=== PATIENT | female | born 1980 | race Hispanic/Latino ===

== ENCOUNTER 2023-09-09 16:37 | Emergency (ER) | payer OTHER ==
--- OUTSIDE RECORDS SUMMARY | 2023-09-09 17:01 | XMS REPORT | Clinical Summary ---
:1980 Author Organization [facility] MD [facility] Address [address] [place] [address] Care Team Providers Name Role Phone Steve Kelley MD Unavailable Jodee Moffett MD Unavailable Dana Lowry MD Unavailable Shmaa Byrd MD Unavailable Allergies Active Allergy Reactions Criticality Noted Date Comments Codeine Hives High 05/08/2022 Ondansetron 01/14/2023 Causes elevated blood pressure and migraines Medications Medication Sig Dispensed Refills Start End Date Status Date aspirin 81 mg EC Take 1 tablet 0 Active tabletIndications: (81 mg) by myocardial mouth daily. infarction prevention Integra F 125-1-40-3 Take 1 capsule 0 Active mg cap by mouth every 1 other day. cholecalciferol, Take 1 tablet 0 Active vitamin D3, 25 mcg (1,000 Units) 2 (1,000 unit) tablet by mouth once a week. traMADol (ULTRAM-ER) Take 1 tablet 0 Active 100 mg 24 hr tablet (100 mg) by mouth nightly as needed. acetaminophen Take 1 tablet 0 Ac tive (TYLENOL) 325 mg (325 mg) by 2 tablet mouth as needed. cyanocobalamin every 30 0 Activ e (VITAMIN B-12) 1,000 (thirty) days. 2 mcg/mL injection fluticasone as needed. 0 Active propionate (FLONASE) 3 50 mcg/spray nasal spray FOLIC ACID ORAL Take 1 tablet 0 Active by mouth daily. Vyvanse 60 mg Take 1 capsule 0 A ctive capsule (60 mg) by 3 mouth every morning. promethazine Take 1 tablet 0 Act sergo (PHENERGAN) 12.5 mg (12.5 mg) by 3 tablet mouth as needed. tiZANidine Take 1 tablet 0 Activ e (ZANAFLEX) 4 mg (4 mg) by tablet mouth at bedtime. For 30 days methylphenidate HCl Take 1 tablet 0 Discontinued (RITALIN) 5 mg (5 mg) by 23 (Not tabletIndications: mouth daily as Applicable) attention-deficit needed. hyperactivity disorder ferrous sulfate 325 Take 1 tablet 90 tablet 0 Discontinued (65 FE) MG EC (325 mg) by 2 23 (The rapy tabletIndications: mouth 2 (two) completed) Iron deficiency times a day anemia with meals. promethazine Take 1 tablet 0 05/20/20 Dis continued (PHENERGAN) 50 mg (50 mg) by 23 ( Not tablet mouth every 6 Applic able) (six) hours as needed. polyethylene Mix as 4000 mL 0 05/30/20 Discont inued glycol-electrolytes directed and 3 23 (Not (NULYTELY) 420 g drink as Nina licable) solutionIndications: directed. Colonoscopy planned lisdexamfetamine Take 50 mg by 0 03/18/20 Discontinued (VYVANSE) 40 mg mouth every 23 capsuleIndications: morning. attention-deficit hyperactivity disorder biotin 10,000 mcg Take by mouth 0 04/21/20 Discontinued cap daily. 23 predniSONE Take 2 tablets 28 tablet 0 02/11/20 Expi red (DELTASONE) 5 mg (10 mg) by 3 23 tabletIndications: mouth daily Multiple joint pain for 14 days. ergocalciferol Take 1 capsule 12 capsule 0 05/14/20 (DRISDOL) 50,000 (50,000 Units) 3 23 units by mouth every capsuleIndications: 7 days for 90 Vitamin D days. deficiency, not otherwise specified NICORETTE 4 mg gum Chew and park 200 each 0 0 Discontinued fresh 1 Piece (4 mg) 3 23 (Reor catalina) mintIndications: by mouth every Tobacco dependence 2 (two) hours syndrome as needed for smoking cessation. buPROPion Bottle #2: 23 tablet 0 04/21/20 Discontin ued (Wellbutrin XL) 300 Take 1 tablet 3 23 mg 24 hr (300 mg) by tabletIndications: mouth every Tobacco dependence morning after syndrome completing 150 mg. buPROPion Bottle #1: 7 tablet 0 04/21/20 Discontin ued (Wellbutrin XL) 150 Take 1 tablet 3 23 mg 24 hr (150 mg) by tabletIndications: mouth every Tobacco dependence morning for 7 syndrome days. Nicoderm CQ 21 mg/24 Apply 1 patch 28 patch 0 05/20 Discontinued hr transdermal to skin and 3 23 patchIndications: change patch Tobacco dependence daily as syndrome directed for tobacco cessation (alternate sites). NICORETTE 4 mg gum Chew and park 200 each 0 0 Discontinued fresh 1 Piece (4 mg) 3 23 (Ther apy mintIndications: by mouth every completed) Tobacco dependence 2 (two) hours syndrome as needed for smoking cessation. tiZANidine Take 1 tablet 30 tablet 2 06/19/20 Expir ed (Zanaflex) 4 mg (4 mg) by 3 23 tabletIndications: mouth at Multiple joint pain, bedtime for 30 Inability to days. swallow, Vitamin D deficiency, not otherwise specified, Intolerant of cold Active Problems Problem Noted Date Diagnosed Date Tobacco use disorder, severe 05/08/2023 Iron deficiency anemia 11/29/2022 Anemia 03/23/2022 Headache 03/23/2022 Encounters Date Type Department Care Team Description 09/01/2023 Office Visit Internal Medicine Ewa Eric Iron defi ciency 1:30 PM Center - Hematology [employer]AMPING [employer] WORKER anemia, not otherwise AUTOMOBILE MECHANIC ASSISTANT [address] specified (Primary [facility], [address] or Dx) [place] [address] 09/01/2023 Hospital Encounter Diagnostic Laboratory Ewa Eric, Iron deficiency anemia, not otherwise specified 11:30 AM Center [employer]AMPING [employer] WORKER Discharge Disposition: Home AUTOMOBILE MECHANIC ASSISTANT - [address] 09/01/2023 [facility] 11:59 [place] [address] AUTOMOBILE MECHANIC ASSISTANT 09/01/2023 Travel 08/27/2023 Orders Only Internal Medicine Ewa Eric, [place] - Hematology STAMPING DIE [employer]Y OUT WORKER [address] [facility], [address] [place] [address] 08/26/2023 Orders Only Internal Medicine Ewa Eric, Iron defi ciency Center - Hematology STAMPING DIE TRY OUT WORKER anemia, not otherwise [address] specified (Primary [facility], [address] or Dx) [place] [address] 08/26/2023 Orders Only Internal Medicine Ewa Eric, [place] - Hematology STAMPING DIE TRY OUT WORKER [address] [facility], [address] [place] [address] 07/25/2023 Hospital Encounter Head and Neck Center - Tiffanie Byrd Lesion of larynx (Primary Dx); 1:30 PM Surgical Oncology MD Edi Dysphagia, not otherwise spe cified CDT - [address] Discharge Disposition: Home 07/25/2023 Main Bldg, 10th Floor, 11:59 [place] [address] 07/25/2023 Travel 07/24/2023 Travel 07/07/2023 Orders Only Internal Medicine Rice, Multiple j oint pain (Primary Dx); Center - Rheumatolog y Nery Carlos, Osteoarthritis, not otherwis e specified [address] RN [facility], [address] [place] [address] 07/04/2023 Ancillary Procedure Radiology Outpatient Dana Lowry, Multiple joint pain; 8:15 AM Center Inability to swallow; CDT [address] Vitamin D deficiency, not ot herwise specified; [place] [address] Intolerant of cold [phone] 06/12/2023 Telemedicine Internal Medicine Dana Lowry, Multiple joint pain; 2:00 PM Center - Rheumatolog y Inability to swallow; CDT [address] Vitamin D deficiency, not ot herwise specified; [facility], [address] [place] [address] 06/10/2023 Orders Only Internal Medicine JarrodDana land, Dysphagia , not Center - Rheumatolog y MD otherwise specified [address] (Primary Dx) [facility], [address] [place] [address] 06/03/2023 Hospital Encounter [facility] Kala-Otilia Discharg e 9:11 AM Ashia goff, Disposition: H madhu Sanz MD 06/03/2023 11:59 PM CDT 05/30/2023 Office Visit Internal Medicine Ewa Eric, Iron defi ciency 2:30 PM Center - Hematology STAMPING [employer] OUT WORKER anemia, not otherwise CDT [address] specified (Primary [facility], [address] or Dx) [place] [address] 05/30/2023 Hospital Encounter Diagnostic Imaging JarrodDana land, In ability to swallow 10:18 AM Center Discharge Disposition: Home CDT - [address] Juani Kc 05/30/2023 Main Bldg, 3rd Floor E A, PhD 11:59 [place] [address] 05/30/2023 Hospital Encounter Diagnostic Laboratory Ewa Eric, Iron deficiency anemia, not otherwise specified 9:52 AM Center STAMPING [employer] OUT WORKER Discharge Disposition: Home CDT - [address] 05/30/2023 Main Bldg, Elevator [place] 10:17 [place] [address] CDT 05/30/2023 Hospital Encounter Diagnostic Laboratory Dana Lowry, Multiple joint pain; 9:45 AM [place] Inability to swallow; CDT - [address] Vitamin D deficiency, not ot herwise specified; 05/30/2023 Main Bldg, Elevator A Intolerant of cold 9:51 [place] [address] Discharge Disposition: Home CDT 05/30/2023 Hospital Encounter [facility] HLA LAB Kala-Otilia Discharg e 9:11 AM Ashia goff, Disposition: H madhu Sanz MD 05/30/2023 9:44 AM CDT 05/30/2023 Travel 05/20/2023 Office Visit Internal Medicine EssenceEwaam, Multiple joint pain; 2:00 PM Center - Rheumatolog y Inability to swallow; T [address] Vitamin D deficiency, not ot herwise specified; [facility], [address] [place] [address] 05/20/2023 Travel 04/19/2023 Hospital Encounter Ambulatory Treatment HernestoEwa banuelos, Iron deficiency anemia, not otherwise specified (Primary Dx) 1:32 PM Center - Main Buildi ng STAMPING DIE [employer]Y OUT WORKER Discharge Disposition: Home CDT - [address] [place] 04/19/2023 Main Bldg, 2nd Floor Dye, 11:59 PM Elevator C Vianney Watkins RN [place] [phone] 04/19/2023 Travel 04/12/2023 Hospital Encounter Ambulatory Treatment Ewa Eric, Iron deficiency anemia, not otherwise specified (Primary Dx) 2:00 PM Center - Main Buildi ng STAMPING DIE [employer]Y OUT WORKER Discharge Disposition: Home CDT - [address] Sydnie, 04/12/2023 Main Bldg, 2nd Floor Rula Watkins RN 11:59 [place] [address] 04/12/2023 Travel 04/05/2023 Hospital Encounter Ambulatory Treatment HernestoEwa, Iron deficiency anemia, not otherwise specified (Primary Dx) 1:15 PM Center - Main Buildi ng STAMPING D[employer]Y OUT WORKER Discharge Disposition: Home CDT - [address] Evans, 04/05/2023 Main Bldg, 2nd Floor DOE Gonzalez 11:59 [place] [address] 04/05/2023 Travel 03/22/2023 Hospital Encounter Ambulatory Treatment HernestoEwa banuelos, Iron deficiency anemia, not otherwise specified (Primary Dx) 12:11 PM Center - Main Buildi ng STAMPING DIE TRY OUT WORKER Discharge Disposition: Home CDT - [address] [place], 03/22/2023 Main Bldg, 2nd Floor DOE Engel 11:59 [place] [address] 03/22/2023 Travel 03/18/2023 Office Visit Internal Medicine Ewa Eric Iron defi ciency 12:30 PM Center - Hematology STAMPING D[employer] OUT WORKER anemia, not otherwise CDT [address] specified (Primary [facility], [address] or Dx) [place] [address] 03/18/2023 Hospital Encounter Diagnostic Laboratory Dana Lowry, Intolerant of cold; 10:06 AM Center Iron deficiency anemia, not otherwise specified CDT - [address] Discharge Disposition: Home 03/18/2023 Main Bldg, Elevator A 11:59 [place] [address] CDT 03/18/2023 Travel 03/06/2023 Orders Only Internal Medicine Ewa Eric Iron defi ciency Center - Hematology STAMPING DIE TRY OUT WORKER anemia, not otherwise [address] specified (Primary [facility], [address] or Dx) [place] [address] 02/13/2023 Telemedicine Internal Medicine Dana Lowry, Inability to swallow (Primary Dx); 1:30 PM Center - Rheumatolog y Multiple joint pain; CDT [address] Vitamin D deficiency, not ot herwise specified; [facility], [address] [place] [address] 01/27/2023 Orders Only Internal Medicine Dana Lowry, Multiple joint pain Center - Rheumatolog y (Primary Dx) [address] [facility], [address] [place] [address] 01/14/2023 Hospital Encounter Diagnostic Laboratory Dana Lowry, Multiple joint pain 12:19 PM Center Discharge Disposition: Home CDT - [address] 01/14/2023 [facility] 11:59 [place] [address] CDT 01/14/2023 Office Visit Internal Medicine Ewa Eric Iron defi ciency 11:30 AM Center - Hematology STAMPING D[employer] OUT WORKER anemia, not otherwise CDT [address] specified [facility], [address] [place] [address] 01/14/2023 Consult Internal Medicine Dana Lowry, Multiple joint pain 10:30 AM Center - Rheumatolog y CDT [address] [facility], [address] [place] [address] 01/14/2023 Hospital Encounter Diagnostic Laboratory Ewa Eric, Iron deficiency anemia, not otherwise specified 9:57 AM Center STAMPING DIE [employer]Y OUT WORKER Discharge Disposition: Home CDT - [address] 01/14/2023 [facility] 12:18 [place] [address] [facility] 01/14/2023 Travel 01/11/2023 Hospital Encounter Ambulatory Treatment Ewa Eric, Iron deficiency anemia, not otherwise specified (Primary Dx) 10:00 AM [place] - Main Gisellei ng STAMPING DIE [employer]Y OUT WORKER Discharge Disposition: Home CDT - [address] Liam, 01/11/2023 Main Bldg, 2nd Floor DOE Crump 11:59 [place] [address] 01/11/2023 Travel 01/04/2023 Hospital Encounter Ambulatory Treatment Ewa Eric, Iron deficiency anemia, not otherwise specified (Primary Dx) 8:05 AM [place] - Main Gisellei ng STAMPING D[employer] OUT WORKER Discharge Disposition: Home CDT - [address] Sydnie, 01/04/2023 Main Bldg, 2nd Floor Rula Watkins RN 11:59 [place] [address] 01/04/2023 Travel 12/28/2022 Hospital Encounter Ambulatory Treatment Ewa Eric, Iron deficiency anemia, not otherwise specified (Primary Dx) 2:00 PM [place] - Main Gisellei ng STAMPING D[employer]Y OUT WORKER Discharge Disposition: Home CDT - [address] [place], Baby 12/28/2022 Main Bldg, 10th Floo salomon Vega RN 11:59 [place] [address] 12/28/2022 Travel 12/10/2022 Orders Only Internal Medicine Ewa Eric, Center - Hematology STAMPING D[employer]Y OUT WORKER [address] [facility], [address] [place] [address] 12/10/2022 Orders Only Internal Medicine Ewa Eric, Center - Hematology STAMPING DIE TRY OUT WORKER [address] [facility], [address] [place] [address] 11/30/2022 Hospital Encounter Ambulatory Treatment Ewa Eric, Iron deficiency anemia, not otherwise specified (Primary Dx) 10:15 AM Center - Main Buildi ng STAMPING DIE TRY OUT WORKER Discharge Disposition: Home AUTOMOBILE MECHANIC ASSISTANT - [address] Aminah, 11/30/2022 Main Bldg, 2nd Floor Ten Vega, 11:59 PM Elevator C RN AUT[employer] [address] 11/30/2022 Travel 11/29/2022 Office Visit Internal Medicine Ewa Eric, Iron defi ciency anemia, not otherwise specified (Primary Dx); 2:00 PM Center - Hematology STAMPING DIE TRY OUT WORKER Multiple joint pain AUTOMOBILE MECHANIC ASSISTANT [address] [facility], [address] [place] [address] 11/29/2022 Hospital Encounter Diagnostic Laboratory Ewa Eric, Iron deficiency anemia, not otherwise specified 11:37 AM [place] STAMPING D[employer] TRY OUT WORKER Discharge Disposition: Home AUTOMOBILE MECHANIC ASSISTANT - [address] 11/29/2022 [facility] 11:59 [place] [address] [facility] 11/29/2022 Orders Only Internal Medicine Ewa Eric, Center - Hematology STAMPING DIE TRY OUT WORKER [facility], [address] [place] [address] 11/29/2022 Travel 11/08/2022 Anesthesia Event Endoscopy Center Becca Flores, 2:18 PM [address] Briceno MD AUTOMOBILE MECHANIC ASSISTANT Main Bldg, 5th [place] [address] 11/08/2022 Surgery Endoscopy Center Frances, DIAGNOSTIC UPPER 1:40 PM 151Adithya Meyers, GASTROINTESTINAL AUTOMOBILE MECHANIC ASSISTANT - Main Shannan, 5th Floor ENDOSCOPY 11/08/2022 Elevator [place] 2:50 [place] [address] [facility] [phone] 11/08/2022 Hospital Encounter Endoscopy Center Frances, Iron deficiency anemia, not otherwise specified 11:59 AM [address], Discharge Disposition: Home AUTOMOBILE MECHANIC ASSISTANT - Main Shannan, 5th Floor 11/08/2022 Elevator [place] 4:45 [place] [address] [facility] [phone] 11/08/2022 Travel 11/07/2022 POEM Appointments Perioperative 3:30 PM Evaluation and AUTOMOBILE MECHANIC ASSISTANT Management Center [address] Bldg, 6th [place] [address] 11/06/2022 Anesthesia Event Perioperative Gaona, 11:59 PM Evaluation and Michelle Merchant, RN AUTOMOBILE MECHANIC ASSISTANT Management Center [address] Main Bldg, 6th [place] [address] 11/04/2022 Refill Gastrointestinal Gutierrez, Colonoscopy planned Center - BELLA Rojo (Primary Dx) Gastroenterology, Hepatology & Nutriti on [address] Main Bldg, 7th [place] [address] 10/23/2022 Ancillary Procedure General Ultrasound Ewa Eric, Bilateral lower leg 10:[address] STAMPING DIE TRY OUT WORKER edema AUTOMOBILE MECHANIC ASSISTANT [facility], [address] [place] [address] 10/23/2022 Hospital Encounter Diagnostic Laboratory Ewa Eric, Bilateral lower leg edema 9:30 AM Center STAMPING DIE TRY OUT WORKER Discharge Disposition: Home AUTOMOBILE MECHANIC ASSISTANT - [address] 10/23/2022 [facility] 11:59 [place] [address] AUTOMOBILE MECHANIC ASSISTANT 10/23/2022 Documentation Internal Medicine Ewa Eric, Center - Hematology STAMPING DIE TRY OUT WORKER [address] [facility], [address] [place] [address] 10/23/2022 Orders Only Internal Medicine Ewa Eric, Center - Hematology STAMPING DIE TRY OUT WORKER [address] [facility], [address] [place] [address] 10/23/2022 Travel 10/22/2022 Documentation Internal Medicine Ewa Eric, Center - Hematology STAMPING DIE TRY OUT WORKER [address] [facility], [address] [place] [address] 10/22/2022 Orders Only Internal Medicine Ewa Eric, Center - Hematology STAMPING DIE TRY OUT WORKER [address] [facility], [address] [place] [address] 10/22/2022 Orders Only Internal Medicine Ewa Eric, Bilateral lower leg Center - Hematology STAMPING DIE TRY OUT WORKER edema (Primary Dx) [address] [facility], [address] [place] [address] 10/22/2022 Orders Only Internal Medicine Ewa Eric, Iron defi ciency Center - Hematology STAMPING DIE TRY OUT WORKER anemia, not otherwise [address] specified (Primary [facility], [address] or Dx) [place] [address] 10/19/2022 Hospital Encounter Ambulatory Treatment Ewa Eric, Iron deficiency anemia, not otherwise specified (Primary Dx) 9:28 AM Center - Main Buildi ng STAMPING DIE TRY OUT WORKER Discharge Disposition: Home AUTOMOBILE MECHANIC ASSISTANT - [address] Sarah Aiken 10/19/2022 Main Bldg, 2nd Floor M, RN 11:59 [place] [address] 10/19/2022 Travel 10/10/2022 Prep for Surgery Gastrointestinal Renea Bhagat, Iron d eficiency Center - STAMPING DIE TRY OUT WORKER anemia, not oth erwise Gastroenterology, specified (Primary Hepatology & Nutriti on Dx) [address] Main Bldg, 7th [place] [address] 10/10/2022 Orders Only Internal Medicine Ewa Eric, Iron defi ciency Center - Hematology STAMPING DIE TRY OUT WORKER anemia, not otherwise [address] specified (Primary [facility], [address] or [place] [address] 10/10/2022 Orders Only Internal Medicine Ewa Eric, Center - Hematology STAMPING DIE TRY OUT WORKER [address] [facility], [address] [place] [address] 10/09/2022 Documentation Internal Medicine Ewa Eric, Center - Hematology STAMPING DIE TRY OUT WORKER [address] [facility], [address] [place] [address] 10/09/2022 Orders Only Internal Medicine Ewa Eric, Iron defi ciency Center - Hematology STAMPING DIE TRY OUT WORKER anemia, not otherwise [address] specified (Primary [facility], [address] or [place] [address] 10/04/2022 Hospital Encounter Diagnostic Laboratory Ewa Eric, Iron deficiency anemia, not otherwise specified 9:45 AM Center STAMPING DIE TRY OUT WORKER Discharge Disposition: Home AUTOMOBILE MECHANIC ASSISTANT - [address] 10/04/2022 [facility] 11:59 [place] [address] AUTOMOBILE MECHANIC ASSISTANT 10/02/2022 Telemedicine Internal Medicine Ewa Eric, Chronic i freya 2:00 PM Center - Hematology STAMPING DIE TRY OUT WORKER deficiency anemia AUTOMOBILE MECHANIC ASSISTANT [address] secondary to blood [facility], [address] [place] [address] 10/02/2022 Orders Only Internal Medicine Ewa Eric, Iron defi ciency Center - Hematology STAMPING DIE TRY OUT WORKER anemia, not otherwise [address] specified (Primary [facility], [address] or [place] [address] after 09/09/2022 Immunizations Name Administration Dates Next Due Pfizer SARS-CoV-2 Vaccination (Purple 06/14/2021, , 09/27/2020 Cap) Surgical History Surgery Date Site/Laterality Comments ROBOTIC LAPAROSCOPIC HYSTERECTOMY 06/27/2021 GASTRIC BYPASS 10/06/2012 - 10/05/2013 LAPAROSCOPIC CHOLECYSTECOMY 10/06/2012 - 10/05/2013 MA ESOPHAGOGASTRODUODENOSCOPY 11/08/2022 Esophagus/N/A Pr ocedure: DIAGNOSTIC TRANSORAL DIAGNOSTIC UPPER GASTR OINTESTINAL ENDOSCOPY; Surge on: Dontae burrell MD; Location: MAIN ENDOSCOPY; Servi ce: GASTROENTEROLOGY MA COLONOSCOPY FLX DX W/COLLJ SPEC 11/08/2022 N/A Procedure: DIAGNOSTIC WHEN PFRMD FLEXIBLE COLONOS COPY PROXIMAL TO SPLE ANDREEA FLEXURE; Surgeon : Dontae burrell MD; Location: MAIN ENDOSCOPY; Servi ce: GASTROENTEROLOGY Medical History Medical History Date Comments Obstructive sleep apnea Anxiety Depressive disorder History of anemia Encounter for blood transfusion Seizure Family History Medical History Relation Name Comments Liver cancer Father Relation Name Status Comments Father Social History Tobacco Use Types Packs/Day Years Used Date Smoking Tobacco: Former Cigarettes 0.5 28 1994 - 06/11/2023 Smokeless Tobacco: Never Tobacco Cessation: Ready to Quit: No; Co unseling Given: No Comments: 0. Alcohol Use Standard Drinks/Week Comments Yes 0 (1 standard drink = 0.6 oz pure social ly a glass of wine twice a alcohol) month Sex and Gender Information Value Date Recorded Sex Assigned at Female 10/20/2022 5:57 PM AUTOMOBILE MECHANIC ASSISTANT Gender Identity Female 10/20/2022 5:[address] Sexual Orientation Straight 10/20/2022 5:[address] Job Start Date Occupation Industry Not on file Not on file Not on file Obstetrics History Last Filed Vital Signs Vital Sign Reading Time Taken Comments Blood Pressure 150/93 09/01/2023 1:29 PM having hip pa in; AUTOMOBILE MECHANIC ASSISTANT informed provide r Pulse 70 09/01/2023 1:29 PM AUTOMOBILE MECHANIC ASSISTANT Temperature 37 C (98.6 F) 09/01/2023 1:29 PM AUTOMOBILE MECHANIC ASSISTANT Respiratory Rate 16 09/01/2023 1:29 PM AUTOMOBILE MECHANIC ASSISTANT Oxygen Saturation 100% 09/01/2023 1:29 PM AUTOMOBILE MECHANIC ASSISTANT Inhaled Oxygen - - Concentration Weight 92.8 kg (204 lb 9.4 09/01/2023 1:29 PM oz) AUTOMOBILE MECHANIC ASSISTANT Height 170.2 cm (5' 7.01") 09/01/2023 1:29 PM AUTOMOBILE MECHANIC ASSISTANT Body Mass Index 32.04 09/01/2023 1:29 PM AUTOMOBILE MECHANIC ASSISTANT Plan of Treatment Date Type Department Care Team Description 12/01/2023 11:30 Appointment Diagnostic Laboratory Nuria Eric APRN AM AUTOMOBILE MECHANIC ASSISTANT Center [address] [place] [id number] [facility] [place] [address] 12/01/2023 1:30 Office Visit Internal Medicine Ewa Eric APRN PM AUTOMOBILE MECHANIC ASSISTANT Center - Hematology [address] [place] [id number] [facility], [address] [place] [address] 12/12/2023 3:30 Telemedicine Internal Medicine Dana Lowry MD PM AUTOMOBILE MECHANIC ASSISTANT Center - Rheumatolog y [address] [facility] [address] [place] [address] [facility], [address] [place], [place] [id number] Health Maintenance Due Date Last Done Comments COVID-19 Vaccination (06/06/2023 06/14/2021, , season) 09/27/2020 Procedures Procedure Name Priority Date/Time Associated Comments Diagnosis .CBC Routine 09/01/2023 12:33 Iron deficiency Results for this PM AUTOMOBILE MECHANIC ASSISTANT anemia, not procedure are i n otherwise the results specified section. TRANSFERRIN Routine 09/01/2023 12:33 Iron deficiency Results for this PM AUTOMOBILE MECHANIC ASSISTANT anemia, not procedure are i n otherwise the results specified section. FERRITIN Routine 09/01/2023 12:33 Iron deficiency Results for this PM [employer] ASSISTANT anemia, not procedure are i n otherwise the results specified section. IRON LEVEL Routine 09/01/2023 12:33 Iron deficiency Results for this PM [employer] ME[employer]IC ASSISTANT anemia, not procedure are i n otherwise the results specified section. COMPLETE BLOOD COUNT W/ Routine 09/01/2023 12:33 Iron deficien cy Results for this DIFFERENTIAL PM [employer]CH[employer]IC ASSISTANT anemia, not procedure are i n otherwise the results specified section. MRI PELVIS W WO CONTRAST Routine 07/04/2023 9:07 Multiple join t Results for this AM CDT pain procedure are in Inability to the results swallow section. Vitamin D deficiency, not otherwise specified Intolerant of cold FL MODIFIED BARIUM Routine 05/30/2023 11:27 Inability to Resul ts for this SWALLOW W SPEECH AM CDT swallow procedure a re in the results section. DIFFERENTIAL Routine 05/30/2023 10:08 Iron deficiency Results for this AM CDT anemia, not procedure are i n otherwise the results specified section. .CBC Routine 05/30/2023 10:08 Iron deficiency Results for this AM CDT anemia, not procedure are i n otherwise the results specified section. TRANSFERRIN Routine 05/30/2023 10:08 Iron deficiency Results for this AM CDT anemia, not procedure are i n otherwise the results specified section. FERRITIN Routine 05/30/2023 10:08 Iron deficiency Results for this AM CDT anemia, not procedure are i n otherwise the results specified section. IRON LEVEL Routine 05/30/2023 10:08 Iron deficiency Results for this AM CDT anemia, not procedure are i n otherwise the results specified section. COMPLETE BLOOD COUNT W/ Routine 05/30/2023 10:08 Iron deficien cy DIFFERENTIAL AM CDT anemia, not otherwise specified FRACTIONATED BILIRUBIN Routine 05/30/2023 9:58 Multiple joint Results for this AM CDT pain procedure are in Inability to the results swallow section. Vitamin D deficiency, not otherwise specified Intolerant of cold TOTAL PROTEIN Routine 05/30/2023 9:58 Multiple joint Results f or this AM CDT pain procedure are in Inability to the results swallow section. Vitamin D deficiency, not otherwise specified Intolerant of cold ASPARTATE Routine 05/30/2023 9:58 Multiple joint Results fo r this AMINOTRANSFERASE AM CDT pain procedure are in Inability to the results swallow section. Vitamin D deficiency, not otherwise specified Intolerant of cold ALANINE AMINOTRANSFERASE Routine 05/30/2023 9:58 Multiple join t Results for this AM CDT pain procedure are in Inability to the results swallow section. Vitamin D deficiency, not otherwise specified Intolerant of cold ALKALINE PHOSPHATASE Routine 05/30/2023 9:58 Multiple joint Re sults for this AM CDT pain procedure are in Inability to the results swallow section. Vitamin D deficiency, not otherwise specified Intolerant of cold ALBUMIN LEVEL Routine 05/30/2023 9:58 Multiple joint Results f or this AM CDT pain procedure are in Inability to the results swallow section. Vitamin D deficiency, not otherwise specified Intolerant of cold CALCIUM LEVEL Routine 05/30/2023 9:58 Multiple joint Results f or this AM CDT pain procedure are in Inability to the results swallow section. Vitamin D deficiency, not otherwise specified Intolerant of cold .GLOMERULAR FILTRATION Routine 05/30/2023 9:58 Multiple joint Results for this RATE AM CDT pain procedure are in Inability to the results swallow section. Vitamin D deficiency, not otherwise specified Intolerant of cold SERUM CREATININE Routine 05/30/2023 9:58 Multiple joint Result s for this AM CDT pain procedure are in Inability to the results swallow section. Vitamin D deficiency, not otherwise specified Intolerant of cold ELECTROLYTE PANEL Routine 05/30/2023 9:58 Multiple joint Resul ts for this AM CDT pain procedure are in Inability to the results swallow section. Vitamin D deficiency, not otherwise specified Intolerant of cold BLOOD UREA NITROGEN Routine 05/30/2023 9:58 Multiple joint Res ults for this AM CDT pain procedure are in Inability to the results swallow section. Vitamin D deficiency, not otherwise specified Intolerant of cold GLUCOSE LEVEL Routine 05/30/2023 9:58 Multiple joint Results f or this AM CDT pain procedure are in Inability to the results swallow section. Vitamin D deficiency, not otherwise specified Intolerant of cold HLA PATIENT COLLECTION Routine 05/30/2023 9:58 Multiple joint Results for this ONLY AM CDT pain procedure are in HLA PATIENT Inability to the results swallow section. Vitamin D deficiency, not otherwise specified Intolerant of cold COMPREHENSIVE METABOLIC Routine 05/30/2023 9:58 Multiple joint PANEL AM CDT pain Inability to swallow Vitamin D deficiency, not otherwise specified Intolerant of cold C REACTIVE PROTEIN Routine 05/30/2023 9:58 Multiple joint Resu lts for this AM CDT pain procedure are in Inability to the results swallow section. Vitamin D deficiency, not otherwise specified Intolerant of cold SEDIMENTATION RATE Routine 05/30/2023 9:58 Multiple joint Resu lts for this NON-AUTOMATED AM CDT pain procedure are in Inability to the results swallow section. Vitamin D deficiency, not otherwise specified Intolerant of cold DIFFERENTIAL Routine 03/18/2023 10:36 Iron deficiency Results for this AM CDT anemia, not procedure are i n otherwise the results specified section. .CBC Routine 03/18/2023 10:36 Iron deficiency Results for this AM CDT anemia, not procedure are i n otherwise the results specified section. TRANSFERRIN Routine 03/18/2023 10:36 Iron deficiency Results for this AM CDT anemia, not procedure are i n otherwise the results specified section. FERRITIN Routine 03/18/2023 10:36 Iron deficiency Results for this AM CDT anemia, not procedure are i n otherwise the results specified section. IRON LEVEL Routine 03/18/2023 10:36 Iron deficiency Results for this AM CDT anemia, not procedure are i n otherwise the results specified section. COMPLETE BLOOD COUNT W/ Routine 03/18/2023 10:36 Iron deficien cy DIFFERENTIAL AM CDT anemia, not otherwise specified THYROID STIMULATING Routine 03/18/2023 10:36 Intolerant of col d Results for this HORMONE AM CDT procedure are i n the results section. FREE THYROXINE Routine 03/18/2023 10:36 Intolerant of cold Res ults for this AM CDT procedure are i n the results section. PROTEIN / CREATININE Routine 01/14/2023 1:03 Multiple joint Re sults for this RATIO URINE PM CDT pain procedure are i n the results section. URINALYSIS WITH Routine 01/14/2023 1:03 Multiple joint Results for this MICROSCOPIC IF INDICATED PM CDT pain pro cedure are in the results section. URINE CULTURE Routine 01/14/2023 1:03 Multiple joint Results f or this PM CDT pain procedure are i n the results section. LUPUS PATH REVIEW Routine 01/14/2023 12:57 Result s for this PM CDT procedure are i n the results section. .DR. BONE EDMUND PATH Routine 01/14/2023 12:57 Resu lts for this REVIEW PM CDT procedure are i n the results section. .DR. BONE PROT ELEC Routine 01/14/2023 12:57 Res ults for this PATH REVIEW PM CDT procedure are i n the results section. HEPATITIS B CORE Routine 01/14/2023 12:57 Results for this ANTIBODY PM CDT procedure are i n the results section. HEPATITIS C VIRUS Routine 01/14/2023 12:57 Multiple joint Resu lts for this ANTIBODY PM CDT pain procedure are i n the results section. VITAMIN D 25 HYDROXY Routine 01/14/2023 12:57 Multiple joint R esults for this LEVEL PM CDT pain procedure are i n the results section. HIV 1/2 Routine 01/14/2023 12:57 Multiple joint Results f or this ANTIGEN/ANTIBODY, FOURTH PM CDT pain pro cedure are in GEN W/RFL the results section. HEPATITIS B SURFACE Routine 01/14/2023 12:57 Multiple joint Re sults for this ANTIGEN PM CDT pain procedure are i n the results section. HEPATITIS B SURFACE Routine 01/14/2023 12:57 Multiple joint Re sults for this ANTIBODY PM CDT pain procedure are i n the results section. HEPATITIS B CORE Routine 01/14/2023 12:57 Multiple joint Resul ts for this ANTIBODY IGM ACUTE TITER PM CDT pain pro cedure are in the results section. SSA+SSB Routine 01/14/2023 12:57 Multiple joint Results f or this PM CDT pain procedure are i n the results section. DIANE (SM) AB IGG SERUM Routine 01/14/2023 12:57 Multiple join t Results for this PM CDT pain procedure are i n the results section. SEDIMENTATION RATE Routine 01/14/2023 12:57 Multiple joint Res ults for this NON-AUTOMATED PM CDT pain procedure are in the results section. SCL 70 AB IGG SERUM Routine 01/14/2023 12:57 Multiple joint Re sults for this PM CDT pain procedure are i n the results section. METAL SORTER ANTIBODY IGG SERUM Routine 01/14/2023 12:57 Multiple joint Results for this PM CDT pain procedure are i n the results section. RHEUMATOID FACTOR Routine 01/14/2023 12:57 Multiple joint Resu lts for this QUANTITATIVE PM CDT pain procedure are i n the results section. PROTEIN ELECTROPHORESIS Routine 01/14/2023 12:57 Multiple join t Results for this PM CDT pain procedure are i n the results section. LUPUS ANTICOAGULANT Routine 01/14/2023 12:57 Multiple joint Re sults for this PM CDT pain procedure are i n the results section. SERUM PROTEIN Routine 01/14/2023 12:57 Multiple joint Results for this ELECTROPHORESIS WITH EDMUND PM CDT pain pro cedure are in the results section. DNA ANTIBODY Routine 01/14/2023 12:57 Multiple joint Results f or this (DOUBLE-STRANDED) IGG PM CDT pain proced ure are in the results section. CYCLIC CITRULLINE Routine 01/14/2023 12:57 Multiple joint Resu lts for this ANTIBODY IGG PM CDT pain procedure are i n the results section. C REACTIVE PROTEIN Routine 01/14/2023 12:57 Multiple joint Res ults for this PM CDT pain procedure are i n the results section. CARDIOLIPIN ANTIBODIES Routine 01/14/2023 12:57 Multiple joint Results for this PM CDT pain procedure are i n the results section. C4 COMPLEMENT Routine 01/14/2023 12:57 Multiple joint Results for this PM CDT pain procedure are i n the results section. C3 COMPLEMENT Routine 01/14/2023 12:57 Multiple joint Results for this PM CDT pain procedure are i n the results section. ANTI B2 GLYCOPROTEIN Routine 01/14/2023 12:57 Multiple joint R esults for this PM CDT pain procedure are i n the results section. ANCA PANEL FOR Routine 01/14/2023 12:57 Multiple joint Results for this VASCULITIS SERUM PM CDT pain procedure a re in the results section. ANTINUCLEAR ANTIBODY Routine 01/14/2023 12:57 Multiple joint R esults for this HEP-2 SUBSTRATE IGG PM CDT pain procedur e are in the results section. DIFFERENTIAL Routine 01/14/2023 10:12 Iron deficiency Results for this AM CDT anemia, not procedure are i n otherwise the results specified section. .CBC Routine 01/14/2023 10:12 Iron deficiency Results for this AM CDT anemia, not procedure are i n otherwise the results specified section. TRANSFERRIN Routine 01/14/2023 10:12 Iron deficiency Results for this AM CDT anemia, not procedure are i n otherwise the results specified section. FERRITIN Routine 01/14/2023 10:12 Iron deficiency Results for this AM CDT anemia, not procedure are i n otherwise the results specified section. IRON LEVEL Routine 01/14/2023 10:12 Iron deficiency Results for this AM CDT anemia, not procedure are i n otherwise the results specified section. COMPLETE BLOOD COUNT W/ Routine 01/14/2023 10:12 Iron deficien cy DIFFERENTIAL AM CDT anemia, not otherwise specified DIFFERENTIAL Routine 11/29/2022 11:47 Iron deficiency Results for this AM [employer] MECH[employer]IC ASSISTANT anemia, not procedure are i n otherwise the results specified section. .CBC Routine 11/29/2022 11:47 Iron deficiency Results for this AM [employer] MECH[employer]IC ASSISTANT anemia, not procedure are i n otherwise the results specified section. TRANSFERRIN Routine 11/29/2022 11:47 Iron deficiency Results for this AM [employer] MECH[employer]IC ASSISTANT anemia, not procedure are i n otherwise the results specified section. FERRITIN Routine 11/29/2022 11:47 Iron deficiency Results for this AM [employer] MECHANIC ASSISTANT anemia, not procedure are i n otherwise the results specified section. IRON LEVEL Routine 11/29/2022 11:47 Iron deficiency Results for this AM [employer] MECHANIC ASSISTANT anemia, not procedure are i n otherwise the results specified section. COMPLETE BLOOD COUNT W/ Routine 11/29/2022 11:47 Iron deficien cy DIFFERENTIAL AM [employer] MECH[employer]IC ASSISTANT anemia, not otherwise specified PATHOLOGY BIOPSY Routine 11/08/2022 2:36 Iron deficiency Resul ts for this INTERPRETATION PM [employer] MECH[employer]IC ASSISTANT anemia, not procedure are in otherwise the results specified section. DIAGNOSTIC FLEXIBLE 11/08/2022 2:08 Iron deficiency COLONOSCOPY PROXIMAL TO PM [employer] MECH[employer]IC ASSISTANT anemia, not SPLENIC FLEXURE otherwise specified DIAGNOSTIC UPPER 11/08/2022 2:08 Iron deficiency GASTROINTESTINAL PM [employer] MECH[employer]IC ASSISTANT anemia, not ENDOSCOPY otherwise specified US LEG VENOUS DOPPLER Routine 10/23/2022 11:09 Bilateral lower Results for this BILATERAL AM [employer]IC ASSISTANT leg edema procedure are i n the results section. .GLOMERULAR FILTRATION Routine 10/23/2022 10:07 Bilateral lowe r Results for this RATE AM [employer]IC ASSISTANT leg edema procedure are i n the results section. SERUM CREATININE Routine 10/23/2022 10:07 Bilateral lower Resu lts for this AM [employer] MECH[employer]IC ASSISTANT leg edema procedure are i n the results section. DIFFERENTIAL Routine 10/23/2022 10:07 Bilateral lower Results for this AM [employer] MECH[employer]IC ASSISTANT leg edema procedure are i n the results section. .CBC Routine 10/23/2022 10:07 Bilateral lower Results for this AM [employer] MECH[employer]IC ASSISTANT leg edema procedure are i n the results section. CREATININE Routine 10/23/2022 10:07 Bilateral lower AM [employer] MECH[employer]IC ASSISTANT leg edema BLOOD UREA NITROGEN Routine 10/23/2022 10:07 Bilateral lower R esults for this AM [employer] MECH[employer]IC ASSISTANT leg edema procedure are i n the results section. COMPLETE BLOOD COUNT W/ Routine 10/23/2022 10:07 Bilateral low er DIFFERENTIAL AM [employer] MECH[employer]IC ASSISTANT leg edema TMP INTERPRETATION Routine 10/04/2022 3:18 Result s for this ANTIBODY SCREEN NEGATIVE PM [employer]IC ASSISTANT pro cedure are in the results section. CLOT EXPIRATION DATE Routine 10/04/2022 3:18 Resu lts for this PM [employer] MECH[employer]IC ASSISTANT procedure are i n the results section. ANTIBODY SCREEN Routine 10/04/2022 3:18 Iron deficiency Result s for this PM [employer] MECH[employer]IC ASSISTANT anemia, not procedure are i n otherwise the results specified section. ABORH Routine 10/04/2022 3:18 Iron deficiency Results f or this PM [employer] MECH[employer]IC ASSISTANT anemia, not procedure are i n otherwise the results specified section. DIFFERENTIAL Routine 10/04/2022 3:18 Iron deficiency Results f or this PM [employer] MECH[employer]IC ASSISTANT anemia, not procedure are i n otherwise the results specified section. .CBC Routine 10/04/2022 3:18 Iron deficiency Results f or this PM [employer] MECH[employer]IC ASSISTANT anemia, not procedure are i n otherwise the results specified section. TYPE AND SCREEN Routine 10/04/2022 3:18 Iron deficiency PM [employer]OBI[employer] MECH[employer]IC ASSISTANT anemia, not otherwise specified TRANSFERRIN Routine 10/04/2022 3:18 Iron deficiency Results f or this PM [employer] MECH[employer]IC ASSISTANT anemia, not procedure are i n otherwise the results specified section. FERRITIN Routine 10/04/2022 3:18 Iron deficiency Results f or this PM [employer] MECH[employer]IC ASSISTANT anemia, not procedure are i n otherwise the results specified section. IRON LEVEL Routine 10/04/2022 3:18 Iron deficiency Results f or this PM [employer] MECH[employer]IC ASSISTANT anemia, not procedure are i n otherwise the results specified section. COMPLETE BLOOD COUNT W/ Routine 10/04/2022 3:18 Iron deficienc y DIFFERENTIAL PM [employer] MECH[employer]IC ASSISTANT anemia, not otherwise specified after 09/09/2022 Results (ABNORMAL) .CBC (09/01/2023 12:33 PM [employer]OMOBI[employer] MECH[employer]IC ASSISTANT)Only the most recent of7 resultswithin the time period is included. [facility] Method Time Signature White Blood Cell 12.1 (H) 4.1 - 09/01/2023 [facility] 10.5 K/uL 12:49 PM [employer] Red Blood Cell 4.53 3.99 - 09/01/2023 [facility] 5.46 M/uL 12:49 PM [employer] Hemoglobin 15.2 12.2 - 09/01/2023 [facility] 15.3 g/dL 12:49 PM [employer]IST[employer] Hematocrit 44.6 36.4 - 09/01/2023 [facility] 46.8 % 12:49 PM [employer] ASSISTANT Mean Cell Volume 99 82 - 99 09/01/2023 [facility] fL 12:49 PM [employer] ASSISTANT Mean Cell 33.6 (H) 26.6 - 09/01/2023 [facility] Hemoglobin 33.2 pg 12:49 PM [employer]IC ASSISTANT Mean Cell 34.1 31.1 - 09/01/2023 [facility] Hemoglobin 35.2 g/dL 12:49 PM [employer] ASSISTANT Concentration RDW-SD 44.5 37.5 - 09/01/2023 [facility] 49.7 fL 12:49 PM [employer] ASSISTANT Red Cell Diameter 12.3 11.6 - 09/01/2023 [facility] Width 15.5 % 12:49 PM [employer] ASSISTANT Platelet 222 160 - 397 09/01/2023 [facility] K/uL 12:49 PM [employer]IC ASSISTANT Mean Platelet 10.6 9.1 - 09/01/2023 [facility] Volume 12.6 fL 12:49 PM [employer] MECH[employer]IC ASSISTANT INRBC 0.0 0.0 - 0.1 09/01/2023 [facility] /100 WBC 12:49 PM [employer] ASSISTANT Comment: The INRBC (instrument NRBC) value reflec ts the enumeration of nucleated red blood cells contained i n a 200uL sample of whole blood analyzed by the instrumen t. This value may differ from the NRBC value reported in a manual differential, which is based on a 100 cell differentia l. Neutrophil % 80.4 (H) 43.2 - 72.7 % 09/01/2023 12:49 PM [employer]OMOBI[employer] MECHANIC ASSISTANT [facility] Lymphocyte % 12.3 (L) 16.8 - 46.2 % 09/01/2023 12:49 PM [facility] Monocyte % 6.0 5.1 - 12.5 % 09/01/2023 12:49 PM [facility] Eosinophil % 0.7 0.4 - 6.3 % 09/01/2023 12:49 PM [facility] Basophil % 0.3 0.2 - 1.4 % 09/01/2023 12:49 PM [facility] IGRE % 0.3 0.1 - 1.5 % 09/01/2023 12:49 PM [facility] Comment: The IGRE% includes Metamyelocyt es, Myelocytes and Promyelocytes. Neutrophil Abs 9.72 (H) 1.95 - 7.25 K/uL 09/01/2023 12:49 P M [facility] Lymphocyte Abs 1.49 1.01 - 3.24 K/uL 09/01/2023 12:49 P M [facility] Monocyte Abs 0.73 0.24 - 0.85 K/uL 09/01/2023 12:49 PM [facility] Eosinophil Abs 0.09 0.02 - 0.50 K/uL 09/01/2023 12:49 P M [facility] Basophil Abs 0.04 0.02 - 0.09 K/uL 09/01/2023 12:49 PM [facility] IG Abs 0.04 0.01 - 0.12 K/uL 09/01/2023 12:49 PM [facility] Specimen Anatomical Collection Method / Collection Time Recei nadira Time (Source) Location / Volume Laterality Blood Venipuncture / 09/01/2023 12:33 3 Unknown PM [employer]IC ASSISTANT 12:41 PM [facility] Ewa Hernesto ANN LAB BLOOD ORDERABLES Performing Organization Address City/State/ZIP Code Phon e Number [facility] [address] [place] [address] [address] (ABNORMAL) Transferrin with TIBC (09/01/2023 12:33 PM [facility])Only the most recent of6 resultswithin the time period is included. Analysis Performed At Patho logist Time Signature Transferrin 171 (L) 200 - 360 09/01/2023 [place] mg/dL 2:03 PM [facility] Total Iron 239 (L) 250 - 450 09/01/2023 [facility] mcg/dL 2:03 PM [facility] Specimen Anatomical Collection Method / Collection Time Recei nadira Time (Source) Location / Volume Laterality Blood Venipuncture / 09/01/2023 12:33 3 Unknown PM [employer] MECH[employer]IC ASSISTANT 12:42 PM [employer] MECH[employer]IC ASSISTANT Ewa Hernesto JUAREZ LAB BLOOD ORDERABLES Performing Organization Address City/[facility]/ZIP [facility] Phon e Number [facility] Unless otherwise noted, [address] all lab tests performed by: Division of Pathology and Laboratory Medicine [address] [place] [address] Iron Level (09/01/2023 12:33 PM [employer]OBI[employer] MECH[employer]IC ASSISTANT)Only the most recent of6 resultswithin the time period is included. athologist Signature Iron Level 98 37 - 145 09/01/2023 [facility] mcg/dL 2:[address] [facility] Is patient Yes 09/01/2023 [facility] fasting? 2:03 PM [employer] ASSISTANT Specimen Anatomical Collection Method / Collection Time Recei nadira Time (Source) Location / Volume Laterality Blood Venipuncture / 09/01/2023 12:33 3 Unknown PM [employer] MECH[employer]IC ASSISTANT 12:42 PM [employer] MECH[employer]IC ASSISTANT Ewa Eric APRN LAB BLOOD ORDERABLES Performing Organization Address City/[facility] Phon e Number [facility] Unless otherwise noted, [address] all lab tests performed by: Division of Pathology and Laboratory Medicine [address] [place] [address] [address] [place] [address] [address] Ferritin Level (09/01/2023 12:33 PM AUTOMOBI[employer] MECHANIC ASSISTANT)Only the most recent of6 resultswithin the time period is included. P athologist Signature Ferritin Level 57 13 - 150 09/01/2023 [facility] ng/mL 2:03 PM [facility] Specimen Anatomical Collection Method / Collection Time Recei nadira Time (Source) Location / Volume Laterality Blood Venipuncture / 09/01/2023 12:33 3 Unknown PM [employer] MECHANIC ASSISTANT 12:42 PM AUTOMOBILE MECHANIC ASSISTANT Narrative [facility] - 3 2:03 PM [employer] MECH[employer]IC ASSISTANT Reference range established for age 17 - 60 years Ewa Eric APRN LAB BLOOD ORDERABLES Performing Organization Address City/State/ZIP Code Phon e Number [facility] Unless otherwise noted, [place] [address] CENTER all lab tests performed by: Division of Pathology and Laboratory Medicine [address] [facility] MRI Pelvis with and without Contrast (07/04/2023 9:07 AM CDT) Anatomical Region Laterality Modality Pelvis Magnetic Resonance Specimen (Source) Anatomical Collection Method Collection Time Re ceived Time Location / / Volume Laterality 07/04/2023 5:41 PM CDT Impressions 07/04/2023 5:45 PM CDT 1. No evidence of avascular necrosis within the femoral heads. 2. No evidence of acute internal deran gement within the pelvis. 3. Degenerative changes at the L5/S1 l evel. 4. Bilateral greater trochanter bursit is. ACTIONABLE ITEMS/RECOMMENDATIONS: None. Narrative 07/04/2023 5:45 PM CDT FULL RESULT: Examination: MRI PELVIS W WO CONTRAST, 9:07 AM. Clinical History: Multiple joint pain. Indication: Low back pain. Comparison: None available. Technique: Multiplanar, multisequence ma gnetic resonance imaging of the pelvis was performed without and with intravenous administration of contrast. Findings: Both femoral heads are maintained within the acetabulum. No evidence of avascular necrosis within the femoral heads. No evidence of acute internal derangemen t. There is no pelvic adenopathy. There are no pelvic fluid collections. There are no suspicious adnexal masses. Degenerative changes are noted at the L5 /S1 level as seen on retail sales teammate localizing imaging, series 1, image 4). Bilateral greater trochanter bursitis no ashanti (series 12, image 47). Procedure Note Landon Mckay MD - 07/04/2023Formattin g of this note might be different from the original. FULL RESULT: Examination: MRI PELVIS W WO CONTRAST, 9:07 AM. Clinical History: Multiple joint pain. Indication: Low back pain. Comparison: None available. Technique: Multiplanar, multisequence ma gnetic resonance imaging of the pelvis was performed without and with intravenous administration of contrast. Findings: Both femoral heads are maintained within the acetabulum. No evidence of avascular necrosis within the femoral heads. No evidence of acute internal derangemen t. There is no pelvic adenopathy. There are no pelvic fluid collections. There are no suspicious adnexal masses. Degenerative changes are noted at the L5 /S1 level as seen on retail sales teammate localizing imaging, series 1, image 4). Bilateral greater trochanter bursitis no ashanti (series 12, image 47). IMPRESSION: 1. No evidence of avascular necrosis wit hin the femoral heads. 2. No evidence of acute internal derange ment within the pelvis. 3. Degenerative changes at the L5/S1 lev el. 4. Bilateral greater trochanter bursitis . ACTIONABLE ITEMS/RECOMMENDATIONS: None. Dana Lowry MD IMG MRI ORDERABLES FL Modified Barium Swallow w Speech (05/30/2023 11:27 AM CDT) Anatomical Region Laterality Modality Neck Radio Fluoroscopy Specimen (Source) Anatomical Collection Method Collection Time Re ceived Time Location / / Volume Laterality 05/30/2023 12:57 PM CDT Impressions 05/30/2023 1:16 PM CDT 1. Laryngeal penetration to the vocal fo lds with ejection seen with liquids. Please refer to the separately dictated speech pathology report for further details and recommendations. Narrative 05/30/2023 1:16 PM CDT FULL RESULT: Examination: FL MODIFIED BARIUM SWALLO W W SPEECH, 05/30/2023 11:27 AM Clinical History: Non-oncologic history; presenting with ongoing dysphagia with solids. History of anemia, gastric bypass, and GERD. Indication: Evaluation of swallow functi on; dysphagia assessment. Comparison: No prior fluoroscopic modifi ed barium swallow with speech. Technique: A modified barium swallow w as performed in conjunction with speech pathology. The patient was given barium mixed with a variety of consistencies including thin liquid, pudding, and cracker to swallow by mouth under videofluoroscopy. Findings: There was no nasopharyngeal re flux. There was a single episode of laryngeal penetration to the vocal folds with ejection seen with thin liquids. There was no penetration or aspiration seen wit h pudding and cracker. There was no ph aryngeal residue with liquids or solids. Pharyngeal contraction was symmetric. Procedure Note Regulo Fox APRN - 05/30/2023Formatti ng of this note might be different from the original. FULL RESULT: Examination: FL MODIFIED BARIUM SWALLOW W SPEECH, 05/30/2023 11:27 AM Clinical History: Non-oncologic history; presenting with ongoing dysphagia with solids. History of anemia, gastric bypass, and GERD. Indication: Evaluation of swallow functi on; dysphagia assessment. Comparison: No prior fluoroscopic modifi ed barium swallow with speech. Technique: A modified barium swallow was performed in conjunction with speech pathology. The patient was given barium mixed with a variety of consistencies including thin liquid, pudding, and cracker to swallow by mouth under videofluoroscopy. Findings: There was no nasopharyngeal re flux. There was a single episode of laryngeal penetration to the vocal folds with ejection seen with thin liquids. There was no penetration or aspiration seen with pudding and cracker. There was no pharyngeal residue with liquids or solids. Pharyngeal contraction was symmetric. IMPRESSION: 1. Laryngeal penetration to the vocal fo lds with ejection seen with liquids. Please refer to the separately dictated speech pathology report for further details and recommendations. Dana Lowry MD IMG FLUOROSCOPY ORDERABLES Differential (05/30/2023 10:08 AM CDT)Only the most recent of6 resultswithin the time period is included. P athologist Signature Neutrophil % 60.8 43.2 - 72.7 [facility] Lymphocyte % 28.8 16.8 - 46.2 [facility] % DIAG[facility]IC CENTER Monocyte % 6.8 5.1 - 12.5 [facility] [place] Eosinophil % 2.7 0.4 - 6.3 % [facility] Basophil % 0.7 0.2 - 1.4 % [facility] IGRE % 0.2 0.1 - 1.5 % [facility] Comment: IGRE % count includes Metamyelo cytes, Myelocytes, and Promyelocytes. Neutrophil Abs 3.57 1.95 - 7.25 K/uL FL [facility] [place] Lymphocyte Abs 1.69 1.01 - 3.24 K/uL FL MD [facility] [place] Monocyte Abs 0.40 0.24 - 0.85 K/uL FL [facility] [place] Eosinophil Abs 0.16 0.02 - 0.50 K/uL FL MD ROD[facility]IGUEZ [facility] [place] Basophil Abs 0.04 0.02 - 0.09 K/uL [place] [facility] [place] IG Abs 0.01 0.01 - 0.12 K/uL [place] MD SERGE Burrell [facility] Specimen Anatomical Collection Method Collection Time Receive d Time (Source) Location / / Volume Laterality Blood 05/30/2023 10:08 05/30/2023 AM CDT 10:17 AM CDT Ewa Donohueel ANN LAB BLOOD ORDERABLES Performing Organization Address City/[facility]/ZIP Code Phon e Number [facility] DIAG[facility]STIC Unless otherwise noted, [address] all lab tests performed by: Division of Pathology and Laboratory Medicine [address] [place] [address] .Serum Creatinine (05/30/2023 9:58 AM CDT)Only the most recent of2 resultswithin the time period is included. athologist Signature Creatinine 0.63 0.51 - 0.95 [place] MD FLORES mg/dL DI[facility]IC CENTER Specimen Anatomical Collection Method Collection Time Receive d Time (Source) Location / / Volume Laterality Blood 05/30/2023 9:58 AM CDT 10:12 AM CDT Dana Lowry MD LAB BLOOD ORDERABLES Performing Organization Address City/[facility] Phon e Number [facility] DIAGNOSTIC Unless otherwise noted, [address] all lab tests performed by: Division of Pathology and Laboratory Medicine [address] [place] [address] Glomerular Filtration Rate (05/30/2023 9:58 AM CDT)Only the most recent of2 resultswithin the time period is included. athologist Signature eGFR 114 >=60 [facility] mL/min/1.73 DIAGNOSTIC sq. m CENTER Comment: The eGFRcr is calculated with the 2020 KD-EPI creatinine equation using creatinine, patient's age, and sex for adults 18 years of age and older. Other factors, especially muscle mass, may affect accuracy and need to be considered. According to the Kidney Disease: Improvi ng Global Outcomes (KDIGO) CKD Work Group 2012 Clinical Practice Guideline, chronic kidney disease (CKD) is defined as the abnormalities of kidney structure or function, present for more than 3 months, with implications for health. CKD should be c lassified by cause, GFR category, and albuminuria category. KDIGO guidelines provide the following GFR categories Stage Description GFR mL/min/1.73 m2 G1* Normal or high >= 90 G2* Mildly decreased 60-89 G3a Mildly to moderately decreased 45-59 G3b Moderately to severely decreased 30- 44 G4 Severely decreased 15-29 G5 Kidney failure <15 *In the absence of evidence of kidney da mage, neither G1 nor G2 fulfill criteria for CKD. Specimen Anatomical Collection Method Collection Time Receive d Time (Source) Location / / Volume Laterality Blood 05/30/2023 9:58 AM 3 CDT 10:12 AM CDT Dana Lowry MD LAB BLOOD ORDERABLES Performing Organization Address City/[facility] Phon e Number [facility] DIAGNOSTIC Unless otherwise noted, [address] all lab tests performed by: Division of Pathology and Laboratory Medicine [address] [place] [address] Fractionated Bilirubin (05/30/2023 9:58 AM CDT) athologist Signature Bili Total 0.5 <=1.2 mg/dL [facility] Comment: Indocyanine Green (ICG) may cause falsel y elevated bilirubin results. Total and direct bilirubin must not be measured from samples containing indocyanine green. False elevation of total bilirubin can b e seen in patients with IgG concentrations above 28 g/L. Bili Direct <0.2 <=0.3 mg/dL [facility] D IAGNOSTIC CENTER Comment: Indocyanine Green (ICG) may cau se falsely elevated bilirubin results. Total and direct bilirubin must not be measure d from samples containing indocyanine green. Bili Indirect See Note 0.0 - 0.9 mg/dL [place] [facility] Comment: Unable to calculate Indirect Bi lirubin result due to some parameters are outside reportable range Specimen Anatomical Collection Method Collection Time Receive d Time (Source) Location / / Volume Laterality Blood 05/30/2023 9:58 AM 3 CDT 10:12 AM CDT Dana Lowry MD LAB BLOOD ORDERABLES Performing Organization Address City/[facility] Phon e Number [facility] DIAGNOSTIC Unless otherwise noted, [address] all lab tests performed by: Division of Pathology and Laboratory Medicine [address] [place] [address] HLA Patient Collection Only (05/30/2023 9:58 AM CDT) athologist Signature Specimen Yes [facility] CANCER CENTER Specimen Anatomical Collection Method Collection Time Receive d Time (Source) Location / / Volume Laterality Blood 05/30/2023 9:58 AM 3 1:35 CDT PM CDT Narrative [facility] - 3 2:37 PM CDT HLA B27 Is this a stem cell transplant patient?- >No What loci do you need typed?->Low resolu tion B Dana Lowry MD HLA TYPING LAB ORDERABLES Performing Organization Address City/[facility]/ZIP [facility] Phon e Number [facility] CANCER Unless otherwise noted, [address] all lab tests performed by: Division of Pathology and Laboratory Medicine [address] [place] [address] Fellows Sed Rate (05/30/2023 9:58 AM CDT)Only the most recent of2 resultswithin the time period is included. athologist Signature Sed Rate 6 0 - 20 [facility] mm/hr CANCER CENTER Specimen Anatomical Collection Method Collection Time Receive d Time (Source) Location / / Volume Laterality Blood 05/30/2023 9:58 AM 3 CDT 10:30 AM CDT Dana Lowry MD LAB BLOOD ORDERABLES Performing Organization Address City/[facility]/ZIP Code Phon e Number [facility] Unless otherwise noted, [address] all lab tests performed by: Division of Pathology and Laboratory Medicine [address] [place] [address] Fellows CRP (05/30/2023 9:58 AM CDT)Only the most recent of2 resultswithin the time period is included. athologist Signature CRP 0.28 mg/L [facility] Comment: Reference ranges for HS CRP assay are as follows: Reference ranges when used to assess car diac risk: <1.00 mg/L Low cardiovascular risk 1.00-3.00 mg/L Average cardiovascular risk >3.00 mg/L High cardiovascular risk. Reference ranges when used to assess inf lammatory responses: Less than or equal to 10.00 mg/L. Specimen Anatomical Collection Method Collection Time Receive d Time (Source) Location / / Volume Laterality Blood 05/30/2023 9:58 AM 3 CDT 10:35 AM CDT Dana Lowry MD LAB BLOOD ORDERABLES Performing Organization Address City/[facility]/ZIP [facility] Phon e Number [facility] CANCER Unless otherwise noted, [place] [address] [place] all lab tests performed by: Division of Pathology and Laboratory Medicine [address] [place], [place] [address]kathleen Laureano BUN (05/30/2023 9:58 AM CDT)Only the most recent of2 resultswithin the time period is included. P athologist Signature BUN 8 6 - 23 [facility] mg/dL DIAGNOSTIC CENTER Specimen Anatomical Collection Method Collection Time Receive d Time (Source) Location / / Volume Laterality Blood 05/30/2023 9:58 AM 3 CDT 10:12 AM CDT Dana Lowry MD LAB BLOOD ORDERABLES Performing Organization Address [facility] Phon e Number [facility] DIAGNOSTIC Unless otherwise noted, [place], [place] [address] [place] all lab tests performed by: Division of Pathology and Laboratory Medicine [address] [place] [address] Fellows ALT (05/30/2023 9:58 AM CDT) P athologist Signature ALT 15 <=33 U/L [facility] Specimen Anatomical Collection Method Collection Time Receive d Time (Source) Location / / Volume Laterality Blood 05/30/2023 9:58 AM 3 CDT 10:12 AM CDT Dana Lowry MD LAB BLOOD ORDERABLES Performing Organization Address [facility] Phon e Number [facility] DIAGNOSTIC Unless otherwise noted, [place], [place] [address] [place] all lab tests performed by: Division of Pathology and Laboratory Medicine [address] [place], [place] [address] Aspartate Aminotransferase (05/30/2023 9:58 AM CDT) P athologist Signature AST 22 <=32 U/L [facility] Specimen Anatomical Collection Method Collection Time Receive d Time (Source) Location / / Volume Laterality Blood 05/30/2023 9:58 AM 3 CDT 10:12 AM CDT Dana Lowry MD LAB BLOOD ORDERABLES Performing Organization Address City/[facility]/ZIP [facility] Phon e Number [facility] DIAGNOSTIC Unless otherwise noted, [place], [place] [address] [place] all lab tests performed by: Division of Pathology and Laboratory Medicine [address] [place], [place] [address]d Total Protein (05/30/2023 9:58 AM CDT) athologist [facility] Total Protein 7.1 6.4 - 8.3 [facility] g/dL DIAGNOSTIC CENTER Specimen Anatomical Collection Method Collection Time Receive d Time (Source) Location / / Volume Laterality Blood 05/30/2023 9:58 AM 3 CDT 10:12 AM CDT Dana Lowry MD LAB BLOOD ORDERABLES Performing Organization Address City/State/ZIP Code Phon e Number [facility] DIAGNOSTIC Unless otherwise noted, [address] all lab tests performed by: Division of Pathology and Laboratory Medicine [facility] Alkaline Phosphatase (05/30/2023 9:58 AM CDT) athologist [facility] Alk Phos 62 35 - 104 [facility] U/L DIAGNOSTIC CENTER Specimen Anatomical Collection Method Collection Time Receive d Time (Source) Location / / Volume Laterality Blood 05/30/2023 9:58 AM 3 CDT 10:12 AM CDT Dana Lowry MD LAB BLOOD ORDERABLES Performing Organization Address City/[facility]/ZIP Code Phon e Number [facility] DIAGNOSTIC Unless otherwise noted, [address] all lab tests performed by: Division of Pathology and Laboratory Medicine [address] Glucose Level (05/30/2023 9:58 AM CDT) athologist [facility] Glucose Level 93 70 - 99 [facility] mg/dL DIAG[facility]STIC CENTER Comment: Effective 05/01/16, the glucose reference intervals have been updated based on [place] [employer] guidelines (Standards of Medical Care in Diabetes 2016. Diabetes Care 2016; 39: S13-S22). Fasting blood glucose: Normal: 70-99 mg/dL Impaired fasting glucose (increased risk for diabetes or pre-diabetes): 100- 125 mg/dL Diabetes mellitus: >/=126 mg/dL Random blood glucose: Normal: 70-199 mg/dL Note: Random glucose >100 mg/dL is assoc iated with increased risk for diabetes Specimen Anatomical Collection Method Collection Time Receive d Time (Source) Location / / Volume Laterality Blood 05/30/2023 9:58 AM 3 CDT 10:12 AM CDT Dana Lowry MD LAB BLOOD ORDERABLES Performing Organization Address City/State/ZIP Code Phon e Number [facility] DIAGNOSTIC Unless otherwise noted, [address] all lab tests performed by: Division of Pathology and Laboratory Medicine [address] [place] Calcium Level (05/30/2023 9:58 AM CDT) athologist Signature Calcium Lvl 9.1 8.4 - 10.2 [facility] mg/dL DIAGNOSTIC CENTER Specimen Anatomical Collection Method Collection Time Receive d Time (Source) Location / / Volume Laterality Blood 05/30/2023 9:58 AM 3 CDT 10:12 AM CDT Dana Lowry MD LAB BLOOD ORDERABLES Performing Organization Address City/[facility]/ZIP Code Phon e Number [facility] DIAGNOSTIC Unless otherwise noted, [address] all lab tests performed by: Division of Pathology and Laboratory Medicine [address] Albumin Level (05/30/2023 9:58 AM CDT) athologist Signature Albumin Lvl 4.1 3.5 - 5.2 [facility] gm/dL DIAGNOSTIC CENTER Specimen Anatomical Collection Method Collection Time Receive d Time (Source) Location / / Volume Laterality Blood 05/30/2023 9:58 AM 3 CDT 10:12 AM CDT Dana Lowry MD LAB BLOOD ORDERABLES Performing Organization Address City/[facility]/ZIP Code Phon e Number [facility] DIAGNOSTIC Unless otherwise noted, [address] all lab tests performed by: Division of Pathology and Laboratory Medicine [address] Electrolyte Panel (05/30/2023 9:58 AM CDT) P athologist Signature Sodium Lvl 139 136 - 145 [facility] mEq/L DIAGNOSTIC CENTER Potassium Lvl 4.3 3.5 - 5.1 [facility] mEq/L DI[facility]IC CENTER Chloride 106 98 - 107 [facility] mEq/L DI[facility]STIC CENTER CO2 22 22 - 29 [facility] mEq/L DI[facility]IC CENTER Anion Gap 11 4 - 14 [facility] mEq/L DI[facility]IC CENTER Specimen Anatomical Collection Method Collection Time Receive d Time (Source) Location / / Volume Laterality Blood 05/30/2023 9:58 AM CDT 10:12 AM CDT Dana Lowry MD LAB BLOOD ORDERABLES Performing Organization Address City/[facility]/ZIP Code Phon e Number [facility] DIAGNOSTIC Unless otherwise noted, [address] all lab tests performed by: Division of Pathology and Laboratory Medicine [facility] [address] TSH (03/18/2023 10:36 AM CDT) athologist [facility] TSH 1.17 0.27 - 4.20 [facility] mcunit/mL DIAGNOSTIC CENTER Specimen Anatomical Collection Method Collection Time Receive d Time (Source) Location / / Volume Laterality Blood 03/18/2023 10:36 03/18/2023 AM CDT 10:59 AM CDT Narrative [facility] - 03/18 11:[address] [facility] location Dana Lowry MD LAB BLOOD ORDERABLES Performing Organization Address City/[facility] Phon e Number [facility] DIAGNOSTIC Unless otherwise noted, [address] all lab tests performed by: Division of Pathology and Laboratory Medicine [facility] [address] Free T4 (03/18/2023 10:36 AM CDT) [facility] Free 1.09 0.93 - 1.70 [facility] ng/dL [facility] Specimen Anatomical Collection Method Collection Time Receive d Time (Source) Location / / Volume Laterality Blood 03/18/2023 10:36 03/18/2023 AM CDT 10:59 AM CDT Narrative [facility] - 03/18 11:[address] [facility] location Dana Lowry MD LAB BLOOD ORDERABLES Performing Organization Address City/[facility]/ZIP [facility] Phon e Number [facility] DIAGNOSTIC Unless otherwise noted, [address] all lab tests performed by: Division of Pathology and Laboratory Medicine [address] [place] [address] [place] Protein/Creatinine Ratio Urine (01/14/2023 1:03 PM CDT) athologist [facility] UTP Ran 7 mg/dL [facility]ER [facility]ENTER Comment: Normal range not available for collections less than 24 hours in duration. U Creatinine 108.5 29.0 - 226.0 mg/dL [place] MD [facility] Comment: The reference range listed is f or first morning urine collection. U Prot/Creat 0.06 <=0.14 g/g [facility] Specimen Anatomical Collection Method Collection Time Receive d Time (Source) Location / / Volume Laterality Urine 01/14/2023 1:03 PM 3 2:20 CDT PM CDT Dana Lowry MD URINE ORDERABLES Performing Organization Address City/State/ZIP Code Phon e Number [facility] CANCER Unless otherwise noted, [address] all lab tests performed by: Division of Pathology and Laboratory Medicine [address] (ABNORMAL) Urinalysis w/Microscopic if Indicated (01/14/2023 1:03 PM CDT) athologist Signature UA Color Yellow [place] [facility] UA Appear Clear Clear [facility] UA Glucose NEG NEG mg/dL [facility] UA Bili NEG NEG [facility] UA Ketones NEG NEG mg/dL [facility] UA Spec Grav 1.017 1.003 - [facility] 1.035 [facility] UA Blood NEG NEG [facility] UA pH 6.5 5.0 - 9.0 [facility] UA Protein NEG NEG mg/dL [facility] UA Urobilinogen 1+ (A) NEG [facility] UA Nitrite NEG NEG [facility] UA Leuk Est NEG NEG [facility] Specimen Anatomical Collection Method Collection Time Receive d Time (Source) Location / / Volume Laterality Urine 01/14/2023 1:03 PM 3 2:02 CDT PM CDT Dana Lowry MD URINE ORDERABLES Performing Organization Address City/State/ZIP Code Phon e Number [facility] CANCER Unless otherwise noted, [address] all lab tests performed by: Division of Pathology and Laboratory Medicine [address] (ABNORMAL) Urine Culture (01/14/2023 1:03 PM CDT) Patholo gist Method Time Signature Final Report <10,000 cfu/ml Normal site joyce present. VILLA CLEMONS Generally of low significance. SANDRA Correlate with clinical data and culture history. CANCER CENTER (A) Specimen Anatomical Collection Method Collection Time Receive d Time (Source) Location / / Volume Laterality Urine, Clean 01/14/2023 1:03 PM 3:15 Catch CDT PM CDT Dana Lowry MD MICROBIOLOGY - GENERAL ORDER SHAYLA Performing Organization Address City/[facility] Phon e Number [facility] CANCER Unless otherwise noted, [address] all lab tests performed by: Division of Pathology and Laboratory Medicine [address] [place] [address] Antinuclear Antibody (FLORY) HEp-2 Substrate, IgG (01/14/2023 12:57 PM CDT) Patholo gist Method Time Signature FLORY HEp-2 See Footnote <1:80 VILLA CLEMONS Substrate (Negative [facility] Comment: RESULT: <1:80 (Negative) ADDITIONAL INFORMATIO N Method: Immunofluorescence using HEp-2 c ellular substrate. Test Performed by: [facility] [address] [place] [address] Health Sciences Department Chair: Oswaldo Andujar M.D. Ph. D.; CLIA# [id number] Specimen Anatomical Collection Method Collection Time Receive d Time (Source) Location / / Volume Laterality Blood 01/14/2023 12:57 01/14/2023 2:04 PM CDT PM CDT Dana Lowry MD LAB BLOOD ORDERABLES Performing Organization Address City/[facility] Phon e Number [facility] CANCER Unless otherwise noted, [address] all lab tests performed by: Division of Pathology and Laboratory Medicine [address] [place] [address] HIV-1/2 Antigen and Antibodies, Fourth Generation (01/14/2023 12:57 PM CDT) Analysis Performed At Patho logist Time Signature HIV Ag/Ab, 4TH NON-REACTI NON-REACTI [facility] VE Comment: HIV-1 antigen and HIV-1/HIV-2 antibodies were not detected. There is no laboratory evidenc e of HIV infection. PLEASE NOTE: This information has been d isclosed to you from records whose confidentiality m ay be protected by state law. If your state requires such protection, then the state law prohibits you from making any further disclosure of the inf ormation without the specific written consent of the person to whom it pertains, or as otherwise per mitted by law. A general authorization for the release of medical or other information is NOT sufficient for this purpose. For additional information please refer to http://education.MetaCure/fa q/SMH604 (This link is being provided for informa tional/ educational purposes only.) The performance of this assay has not be en clinically validated in patients less than 2 years old. Lab test performed by: Lab Mnemonic: [employer] [address] [id number] VEENA PAUL MD Specimen Anatomical Collection Method Collection Time Receive d Time (Source) Location / / Volume Laterality Blood 01/14/2023 12:57 01/14/2023 2:05 PM CDT PM CDT Dana Lowry MD LAB BLOOD ORDERABLES Performing Organization Address City/State/ZIP Code Phon e Number [facility] Lupus Anticoagulant Path Review (01/14/2023 12:57 PM CDT) Component Value Ref Test Analysis Performed Pathologis t Range Method Time At Signature Lupus The screening test for lupus anticoagulant is negative, [place] Anticoagulant suggestive of absence of lupus anticoagulant. However, SANDRA Path Interp due to the heterogeneous nature of the lupus anticoagulan t, CANCER the presence of lupus anticoagulant can not be completely CENTER ruled out. If clinical suspicion for lupus anticoagulant is strong, repeat screening test for anticoagulant at different time, anticardiolipin antibody testing and additional lupus panel studies are recommended. Comment: MD Umu VASQUES Dictated by: MD Umu VASQUES Dictated Date/Time: 01.15.2023 23:59 PM CDT Transcribed Date/Time: 01.15.2023 23:59 PM CDT Electronically Signed By: MD Umu VASQUES on 01.15.2023 23:59 PM Specimen Anatomical Collection Method Collection Time Receive d Time (Source) Location / / Volume Laterality Blood 01/14/2023 12:57 01/14/2023 1:19 PM CDT PM CDT Dana Lowry MD LAB BLOOD ORDERABLES Performing Organization Address City/[facility]/ZIP [facility] Phon e Number [facility] CANCER Unless otherwise noted, [address] all lab tests performed by: Division of Pathology and Laboratory Medicine [address] [place] [address] Georgi Protein Electrophoresis Path Review (01/14/2023 12:57 PM CDT) Component Value Ref Test Analysis Performed At [facility] codetag Method Time Signature SPE Path The serum protein VILLA CLEMONS Interp electrophoretic SANDRA pattern does not CANCER show definitive CENTER evidence of an M-protein peak. Comment: HORTENSIA BONE MD - [id number] Dictated by: MD Umu LOZANO [id number] Dictated Date/Time: 01.26.2023 22:37 PM CDT Transcribed Date/Time: 01.26.2023 22:37 PM CDT Electronically Signed By: HORTENSIA BONE MD - [id number] on 01.26.2023 22:37 PM Specimen Anatomical Collection Method Collection Time Receive d Time (Source) Location / / Volume Laterality Blood 01/14/2023 12:57 01/15/2023 9:48 PM CDT AM CDT Dana Lowry MD LAB BLOOD ORDERABLES Performing Organization Address City/[facility] Phon e Number [facility] CANCER Unless otherwise noted, [address] all lab tests performed by: Division of Pathology and Laboratory Medicine [address] [place], [place] [address]kathleen Laureano EDMUND Path Review (01/14/2023 12:57 PM CDT) Component Value Ref Test Analysis Performed At [facility] codetag Method Time Signature EDMUND Path Int The serum protein immunofixa tion electrophoretic patterns obtained with the use of antisera against IgG, IgA, IgM, bound kappa and bound lambda light chains do not show definitive evidence of a monoclon VILLA CLEMONS al gammopathy. Immunofixation studies using antisera SANDRA against IgD, IgE, or free l ight chains were not performed in this study, consequently, if an M-protein with these characteristics is suspected, suggest follow-up EDMUND studies using these antisera, if clinically indicated. CANCER CENTER Comment: MD Umu LOZANO [id number] Dictated by: MD Umu LOZANO [id number] Dictated Date/Time: 01.26.2023 22:37 PM CDT Transcribed Date/Time: 01.26.2023 22:37 PM CDT Electronically Signed By: MD Umu LOZANO [id number] on 01.26.2023 22:37 PM Specimen Anatomical Collection Method Collection Time Receive d Time (Source) Location / / Volume Laterality Blood 01/14/2023 12:57 01/15/2023 9:48 PM CDT AM CDT Dana Lowry MD LAB BLOOD ORDERABLES Performing Organization Address City/[facility] Phon e Number [facility] Unless otherwise noted, [address] all lab tests performed by: Division of Pathology and Laboratory Medicine [facility] Harvardkathleen Laureano Hepatitis C Virus Ab (01/14/2023 12:57 PM CDT) [facility] Method Time Signature HCVAb. Non Reactive Non Reactive [facility] Comment: Antibody detection in the immunocompromi sed and immunosuppressed population may be delayed or absent entirely. Therefore serial testing, correlation with other clinical findings, and supplemental testin g (if available) should be taken into co nsideration when interpreting the results. Specimen Anatomical Collection Method Collection Time Receive d Time (Source) Location / / Volume Laterality Blood 01/14/2023 12:57 01/14/2023 2:06 PM CDT PM CDT Dana Lowry MD LAB BLOOD ORDERABLES Performing Organization Address City/[facility] Phon e Number [facility] Unless otherwise noted, [address] all lab tests performed by: Division of Pathology and Laboratory Medicine [facility] Lawsonkathleen Laureano Hepatitis B Total Ig Core Ab (SCREENING) (anti-HBc total Ig; HBcAb total Ig) (01/14/2023 12:57 PM CDT) [facility] gist Method Time Signature HBcAb. Non Reactive Non Reactive [facility] Specimen Anatomical Collection Method Collection Time Receive d Time (Source) Location / / Volume Laterality Blood 01/14/2023 12:57 01/14/2023 2:06 PM CDT PM CDT Dana Lowry MD LAB BLOOD ORDERABLES Performing Organization Address City/[facility]/ZIP [facility] Phon e Number [facility] CANCER Unless otherwise noted, [address] all lab tests performed by: Division of Pathology and Laboratory Medicine [facility]5 [place]leen Rollinsd DNA Ab IgG (01/14/2023 12:57 PM CDT) athologist [facility] DS-DNA IgG-[place] <12.3 <30.0 [facility] (Negative) [facility] IU/mL Comment: Test Performed by: [facility] [address] [place] [address] 243 Health Sciences Department Chair: Oswaldo Andujar M.D. Ph. D.; CLIA# [id number] Specimen Anatomical Collection Method Collection Time Receive d Time (Source) Location / / Volume Laterality Blood 01/14/2023 12:57 01/14/2023 2:04 PM CDT PM CDT Dana Lowry MD LAB BLOOD ORDERABLES Performing Organization Address [facility] Phon e Number [facility] CANCER Unless otherwise noted, [address] all lab tests performed by: Division of Pathology and Laboratory Medicine [facility]5 Lawson Fellows SSA+SSB (01/14/2023 12:57 PM CDT) athologist [facility] SS-A/Ro 0.2 <1.0 [facility] IgG-[place] (Negative) CANCER CENTER Units SS-B/La <0.2 <1.0 [facility] IgG-[place] (Negative) CANCER CENTER Units Comment: Test Performed by: [facility] [address] [facility] [place] [phone] Health Sciences Department Chair: Oswaldo Andujar M.D. Ph. D.; CLIA# [id number] Specimen Anatomical Collection Method Collection Time Receive d Time (Source) Location / / Volume Laterality Blood 01/14/2023 12:57 01/14/2023 2:04 PM CDT PM CDT Dana Lowry MD LAB BLOOD ORDERABLES Performing Organization Address City/State/ZIP Code Phon e Number [facility] CANCER Unless otherwise noted, [address] all lab tests performed by: Division of Pathology and Laboratory Medicine [facility]5 [facility] Sm Ab IgG Serum (01/14/2023 12:57 PM CDT) athologist Signature Sm Auto IgG <0.2 <1.0 [facility] Ab-[place] (Negative) CANCER CENTER Units Comment: Test Performed by: [facility] [address] [place] [address] 040 Health Sciences Department Chair: Oswaldo Andujar M.D. Ph. D.; CLIA# [id number] Specimen Anatomical Collection Method Collection Time Receive d Time (Source) Location / / Volume Laterality Blood 01/14/2023 12:57 01/14/2023 2:04 PM CDT PM CDT Dana Lowry MD LAB BLOOD ORDERABLES Performing Organization Address City/[facility]/ZIP Code Phon e Number [facility] CANCER Unless otherwise noted, [address] all lab tests performed by: Division of Pathology and Laboratory Medicine [address] [place] [address] Scl 70 Ab IgG (01/14/2023 12:57 PM CDT) athologist Signature Scl-70 IgG-[place] <0.2 <1.0 [facility] (Negative) CANCER CENTER Units Comment: Test Performed by: [facility] [address] [place] [phone] Health Sciences Department Chair: Oswaldo Andujar M.D. Ph. D.; CLIA# [id number] Specimen Anatomical Collection Method Collection Time Receive d Time (Source) Location / / Volume Laterality Blood 01/14/2023 12:57 01/14/2023 2:04 PM CDT PM CDT Dana Lowry MD LAB BLOOD ORDERABLES Performing Organization Address City/[facility]/ZIP Code Phon e Number [facility] CANCER Unless otherwise noted, [address] all lab tests performed by: Division of Pathology and Laboratory Medicine [facility] Lawson Laureano METAL SORTER Ab IgG (01/14/2023 12:57 PM CDT) [facility] U1RNP Auto IgG 0.2 <1.0 [facility] (Negative) CANCER CENTER Units Comment: Test Performed by: [place] [id number] Health Sciences Department Chair: Oswaldo Andujar M.D. Ph. D.; CLIA# [id number] Specimen Anatomical Collection Method Collection Time Receive d Time (Source) Location / / Volume Laterality Blood 01/14/2023 12:57 01/14/2023 2:04 PM CDT PM CDT Dana Lowry MD LAB BLOOD ORDERABLES Performing Organization Address [facility] Phon e Number [facility] CANCER Unless otherwise noted, [address] all lab tests performed by: Division of Pathology and Laboratory Medicine [facility] Lawson Laureano Anti-Neutrophil Cytoplasmic Antibodies Vascultitis Panel (01/14/2023 12:57 PM CDT) [facility] Myeloperox <0.2 <0.4 [facility] (Negative) CANCER CENTER Units Proteinase 3 <0.2 <0.4 [facility] Ab-[place] (Negative) CANCER CENTER Units Comment: Test Performed by: [place] [id number] Health Sciences Department Chair: Oswaldo Andujar M.D. Ph. D.; CLIA# [id number] Specimen Anatomical Collection Method Collection Time Receive d Time (Source) Location / / Volume Laterality Blood 01/14/2023 12:57 01/14/2023 2:04 PM CDT PM CDT Dana Lowry MD LAB BLOOD ORDERABLES Performing Organization Address City/[facility] Phon e Number [facility] CANCER Unless otherwise noted, [address] all lab tests performed by: Division of Pathology and Laboratory Medicine [facility] Lawson Laureano Cyclic Citrullinated Peptide Ab (01/14/2023 12:57 PM CDT) athologist [facility] CCP Ab-[place]ron <15.6 <20.0 [facility] (Negative) CANCER CENTER Units Comment: Test Performed by: [place] [id number] Health Sciences Department Chair: Oswaldo Andujar M.D. Ph. D.; CLIA# [id number] Specimen Anatomical Collection Method Collection Time Receive d Time (Source) Location / / Volume Laterality Blood 01/14/2023 12:57 01/14/2023 2:04 PM CDT PM CDT Dana Lowry MD LAB BLOOD ORDERABLES Performing Organization Address [facility] Phon e Number [facility] CANCER Unless otherwise noted, [address] all lab tests performed by: Division of Pathology and Laboratory Medicine [facility] Lawson Laureano Hepatitis B IgM Core Ab (CONFIRM ACUTE INFECTION ONLY) (anti-HBc IgM; HBcAb IgM) (01/14/2023 12:57 PM CDT) athologist [facility] Hep B Core Negative Negative [place] MD IgM-[facility] Comment: Test Performed by: [place] [id number] Health Sciences Department Chair: Oswaldo Andujar M.D. Ph. D.; CLIA# [id number] Specimen Anatomical Collection Method Collection Time Receive d Time (Source) Location / / Volume Laterality Blood 01/14/2023 12:57 01/14/2023 2:04 PM CDT PM CDT Dana Lowry MD LAB BLOOD ORDERABLES Performing Organization Address City/[facility] Phon e Number [facility] CANCER Unless otherwise noted, [address] all lab tests performed by: Division of Pathology and Laboratory Medicine [facility] Lawson Laureano Anti B2 Glycoprotein (01/14/2023 12:57 PM CDT) [facility] B2 GPI IgM <9.4 <15.0 [facility] (Negative) CANCER CENTER [facility] Comment: Test Performed by: [place] [phone] Health Sciences Department Chair: Oswaldo Andujar M.D. Ph. D.; CLIA# [id number] B2 GPI IgG <9.4 <15.0 (Negative) [facility] Specimen Anatomical Collection Method Collection Time Receive d Time (Source) Location / / Volume Laterality Blood 01/14/2023 12:57 01/14/2023 2:04 PM CDT PM CDT Dana Lowry MD LAB BLOOD ORDERABLES Performing Organization Address City/[facility]/ZIP Code Phon e Number [facility] CANCER Unless otherwise noted, [address] all lab tests performed by: Division of Pathology and Laboratory Medicine [facility] Lawson Laureano (ABNORMAL) Vitamin D 25OH (01/14/2023 12:57 PM CDT) athologist [facility] Vitamin D 25 20 (L) 30 - 100 [facility] [place] ng/mL [facility] Comment: Reference Range: Deficiency: <=20 ng/mL Insufficiency: 21-29 ng/mL Sufficiency: 30-100 ng/mL Potential toxicity: >100 ng/mL Specimen Anatomical Collection Method Collection Time Receive d Time (Source) Location / / Volume Laterality Blood 01/14/2023 12:57 01/14/2023 1:26 PM CDT PM CDT Dana Lowry MD LAB BLOOD ORDERABLES Performing Organization Address City/[facility] Phon e Number [facility] CANCER Unless otherwise noted, [address] all lab tests performed by: Division of Pathology and Laboratory Medicine [facility] Lawson Laureano Lupus (01/14/2023 12:57 PM CDT) athologist [facility] N LAC Ratio 0.93 <=1.20 [facility] CENTER Specimen Anatomical Collection Method Collection Time Receive d Time (Source) Location / / Volume Laterality Blood 01/14/2023 12:57 01/14/2023 1:19 PM CDT PM CDT Dana Lowry MD LAB BLOOD ORDERABLES Performing Organization Address City/[facility] Phon e Number [facility] CANCER Unless otherwise noted, [address] all lab tests performed by: Division of Pathology and Laboratory Medicine [facility] Harvardkathleen Laureano (ABNORMAL) Hepatitis B Surface Antibody (01/14/2023 12:57 PM CDT) [facility] Method Time Signature HBs Ab Reactive (A) Non Reactive [facility] Specimen Anatomical Collection Method Collection Time Receive d Time (Source) Location / / Volume Laterality Blood 01/14/2023 12:57 01/14/2023 2:06 PM CDT PM CDT Dana Lowry MD LAB BLOOD ORDERABLES Performing Organization Address [facility] Phon e Number [facility] CANCER Unless otherwise noted, [address] all lab tests performed by: Division of Pathology and Laboratory Medicine [facility] Lawson Laureano Hepatitis B surface antigen (01/14/2023 12:57 PM CDT) [facility] Method Time Signature HBsAg. Non Reactive Non Reactive [facility] Specimen Anatomical Collection Method Collection Time Receive d Time (Source) Location / / Volume Laterality Blood 01/14/2023 12:57 01/14/2023 2:06 PM CDT PM CDT Dana Lowry MD LAB BLOOD ORDERABLES Performing Organization Address City/[facility] Phon e Number [facility] CANCER Unless otherwise noted, [address] all lab tests performed by: Division of Pathology and Laboratory Medicine [facility] Harvardkathleen Laureano Cardiolipin Ab (01/14/2023 12:57 PM CDT) athologist Signature Cardio IgG <9.4 <15.0 [facility] (Negative) CANCER CENTER GPL Comment: Test Performed by: [facility] [address] [place] [address] Health Sciences Department Chair: Oswaldo Andujar M.D. Ph. D.; CLIA# [id number] Cardio IgM 11.3 <15.0 (Negative) [facility] Specimen Anatomical Collection Method Collection Time Receive d Time (Source) Location / / Volume Laterality Blood 01/14/2023 12:57 01/14/2023 2:04 PM CDT PM CDT Dana Lowry MD LAB BLOOD ORDERABLES Performing Organization Address City/[facility] Phon e Number [facility] CANCER Unless otherwise noted, [address] all lab tests performed by: Division of Pathology and Laboratory Medicine Michael Laureano Rheumatoid Factor Quant (01/14/2023 12:57 PM CDT) athologist [facility] Rheumatoid <10 <=14 IU/mL [facility] Specimen Anatomical Collection Method Collection Time Receive d Time (Source) Location / / Volume Laterality Blood 01/14/2023 12:57 01/14/2023 1:26 PM CDT PM CDT Dana Lowry MD LAB BLOOD ORDERABLES Performing Organization Address City/State/ZIP Code Phon e Number [facility] CANCER Unless otherwise noted, [address] all lab tests performed by: Division of Pathology and Laboratory Medicine Michael Laureano Immunofixation electrophoresis (01/14/2023 12:57 PM CDT) athologist [facility] EDMUND See Comment [facility] Specimen Anatomical Collection Method Collection Time Receive d Time (Source) Location / / Volume Laterality Blood 01/14/2023 12:57 01/14/2023 2:26 PM CDT PM CDT Dana Lowry MD LAB BLOOD ORDERABLES Performing Organization Address City/[facility]/ZIP Code Phon e Number [facility] CANCER Unless otherwise noted, [address] all lab tests performed by: Division of Pathology and Laboratory Medicine Michael Laureano C3 (01/14/2023 12:57 PM CDT) athologist [facility] C3-[place] [phone] 175 [facility] mg/dL CANCER CENTER Comment: Test Performed by: [place] [id number] [phone] Health Sciences Department Chair: Oswaldo Andujar M.D. Ph. D.; CLIA# [id number] Specimen Anatomical Collection Method Collection Time Receive d Time (Source) Location / / Volume Laterality Blood 01/14/2023 12:57 01/14/2023 2:04 PM CDT PM CDT Dana Lowry MD LAB BLOOD ORDERABLES Performing Organization Address City/State/ZIP Code Phon e Number [facility] CANCER Unless otherwise noted, [address] all lab tests performed by: Division of Pathology and Laboratory Medicine Michael Laureano C4 (01/14/2023 12:57 PM CDT) athologist [facility] C4-[place] 20 14 - 40 [facility] mg/dL CANCER CENTER Comment: Test Performed by: [facility] [address] [place], [place] [address] Health Sciences Department Chair: Oswaldo Andujar M.D. Ph. D.; CLIA# [id number] Specimen Anatomical Collection Method Collection Time Receive d Time (Source) Location / / Volume Laterality Blood 01/14/2023 12:57 01/14/2023 2:04 PM CDT PM CDT Dana Lowry MD LAB BLOOD ORDERABLES Performing Organization Address City/State/ZIP Code Phon e Number [facility] CANCER Unless otherwise noted, [address] all lab tests performed by: Division of Pathology and Laboratory Medicine [facility]5 [place] Fellows Protein Electrophoresis (01/14/2023 12:57 PM CDT) [facility] TOT PROTEIN 7.6 6.4 - 8.3 [facility] gm/dL CANCER CENTER Albumin 4.4 3.6 - 5.4 [facility] gm/dL CANCER CENTER Alpha 1 0.2 0.2 - 0.4 [facility] Globulin gm/dL CANCER CENTER Alpha 2 0.6 0.5 - 1.0 [facility] Globulin gm/dL CANCER CENTER Beta Globulin 0.8 0.5 - 1.1 [facility] gm/dL CANCER CENTER Gamma Globulin 1.5 0.7 - 1.6 [facility] gm/dL [facility] CENTER Specimen Anatomical Collection Method Collection Time Receive d Time (Source) Location / / Volume Laterality Blood 01/14/2023 12:57 01/14/2023 2:26 PM CDT PM CDT Dana Lowry MD LAB BLOOD ORDERABLES Performing Organization Address City/State/ZIP Code Phon e Number [facility] CANCER Unless otherwise noted, [address] all lab tests performed by: Division of Pathology and Laboratory Medicine [facility]5 [employer] Pathology Biopsy Interpretation (11/08/2022 2:36 PM AUTOMOBILE MECHANIC ASSISTANT) Component Value Ref Test Analysis Performed Pathologis t Range Method Time At [facility] Submitted Iron deficiency 11/11/2022 [facility] Clinical anemia, not 3:24 PM History otherwise AUTOMOBILE MECHANIC ASSISTANT specified [D50.9] Diagnosis A: Jejunum, biopsy: 11/11/2022 [facility] BS Electronically Fragments of small bowel mucosa with no significant pa thology diagnosis. 3:24 PM signed by Roberto, No evidence of celiac disease identified. AUTOMOBILE MECHANIC ASSISTANT MD Elsi on 11/11/2022 a t 3:24 B: Stomach, biopsy: PM Fragments of oxyntic/fundic mucosa with mild inactive chroni c gastritis. No intestinal metaplasia or H. pylori identified (H & E stai n). C: Cecum, biopsy: Colonic mucosa with reactive lymphoid aggregate. No dysplasia or carcinoma identified. D: Rectum, rectal polyp, polypectomy: Tubulovillous adenoma, completely excised. No high-grade dysplasia or carcinoma identified. Gross A: 11/11/2022 [facility] Description Jejunum, jejunum: 2 soft douglass tissue fragments, 0.3 cm and 0.5 cm, entirely submitted in A1. ET 3:24 PM B: AUTOMOBILE MECHANIC ASSISTANT Stomach, stomach: 1 soft douglass tissue fragment, 0.4 cm, entirely submitted in B1. ET C: Cecum, biopsy, cecal bx: 1 s oft douglass tissue fragment, 0.8 cm, entirely submitted in C1. ET D: Rectum, rectal polyp: A poly poid, douglass-brown tissue fragment, 0.9 x 0.9 x 0.6 cm with a 0.8 x 0.4 cm stalk. The base is inked, serially sectioned, entirely submitted in D1-D2. ET Disclaimer "Some tests 11/11/2022 [facility] reported here may 3:24 PM have been AUTOMOBILE MECHANIC ASSISTANT developed and performance characteristics determined by [facility] Pathology and Laboratory Medicine. These tests have not been specifically cleared or approved by the U.S. Food and Drug Administration. If applicable, controls were reviewed and showed appropriate reactivity." Specimen Anatomical Collection Method Collection Time Receive d Time (Source) Location / / Volume Laterality Tissue specimen 11/08/2022 2:36 PM 2022 3:58 (specimen) AUTOMOBILE MECHANIC ASSISTANT PM AUTOMOBILE MECHANIC ASSISTANT (Jejunum) Tissue specimen 11/08/2022 2:38 PM 2022 3:58 (specimen) AUTOMOBILE MECHANIC ASSISTANT PM AUTOMOBILE MECHANIC ASSISTANT (Stomach) Tissue specimen 11/08/2022 2:47 PM 2022 3:58 (specimen) AUTOMOBILE MECHANIC ASSISTANT PM AUTOMOBILE MECHANIC ASSISTANT (Cecum, Biopsy) Tissue specimen Rectum structure / 11/08/2022 3:05 PM 11/08/2022 3:58 (specimen) Unknown AUTOMOBILE MECHANIC ASSISTANT PM AUTOMOBILE MECHANIC ASSISTANT Dontae Daniels MD LAB PATHOLOGY ORDERABLES Performing Organization Address City/State/ZIP Code Phon e Number [facility] [place] [address], [place] [address] US Leg Venous Doppler Bilateral (10/23/2022 11:09 AM AUTOMOBILE MECHANIC ASSISTANT) Anatomical Region Laterality Modality Leg, Extremity Ultrasound Specimen (Source) Anatomical Collection Method Collection Time Re ceived Time Location / / Volume Laterality 10/23/2022 11:19 AM AUTOMOBILE MECHANIC ASSISTANT Impressions 10/23/2022 11:31 AM AUTOMOBILE MECHANIC ASSISTANT 1. Negative for deep venous thrombosis in the bilateral lower extremities. 2. Left Amezquita's cyst. I personally reviewed these image(s) sarah ng with the resident's/fellow's interpretations, certify that if a procedure was performed I was physically present, and agree with the final report. Narrative 10/23/2022 11:31 AM AUTOMOBILE MECHANIC ASSISTANT Examination: US LEG VENOUS DOPPLER BILAT ERAL, 10/23/2022 11:09 AM Clinical History: Chronic anemia Indication: Edema, Bilateral lower extre mity edema. Comparison: None available. Technique: Grayscale and color/spectral Doppler ultrasound of the bilateral lower extremity veins was performed. Findings: The bilateral common femoral, femoral, a nd popliteal veins demonstrate color flow, compressibility, and response to augmentation. The visualized posterior tibial, peroneal and anterior tibial veins are patent and compressible. There is an irregular hypoechoic structu re in the popliteal fossa measuring 1.9 x 0.8 x 1.2 cm, likely representing a Amezquita's cyst. Procedure Note Letha Carlos MD - 10/23/2022F ormatting of this note might be different from the original. Examination: US LEG VENOUS DOPPLER BILAT ERAL, 10/23/2022 11:09 AM Clinical History: Chronic anemia Indication: Edema, Bilateral lower extre mity edema. Comparison: None available. Technique: Grayscale and color/spectral Doppler ultrasound of the bilateral lower extremity veins was performed. Findings: The bilateral common femoral, femoral, a nd popliteal veins demonstrate color flow, compressibility, and response to augmentation. The visualized posterior tibial, peroneal and anterior tibial veins are patent and compressible. There is an irregular hypoechoic structu re in the popliteal fossa measuring 1.9 x 0.8 x 1.2 cm, likely representing a Amezquita's cyst. IMPRESSION: 1. Negative for deep venous thrombosis i n the bilateral lower extremities. 2. Left Amezquita's cyst. I personally reviewed these image(s) sarahralf bonner with the resident's/fellow's interpretations, certify that if a procedure was performed I was physically present, and agree with the final report. Ewa Hernesto JUAREZ IMG US ORDERABLES Clot Expiration Date (10/04/2022 3:18 PM AUTOMOBILE MECHANIC ASSISTANT) [facility] Time Signature T & S 10/07/2022 [facility] Specimen Anatomical Collection Method Collection Time Receive d Time (Source) Location / / Volume Laterality Blood 10/04/2022 3:18 PM 3:48 AUTOMOBILE MECHANIC ASSISTANT PM AUTOMOBILE MECHANIC ASSISTANT Narrative This result has an attachment that is no t available. Ewa Eric APRN BLOOD BANK TEST ORDERABLES Performing Organization Address City/State/ZIP Code Phon e Number [facility] Unless otherwise noted, [place] [address] [place] all lab tests performed by: Division of Pathology and Laboratory Medicine [facility] TMP Interpretation Antibody Screen Negative (10/04/2022 3:18 PM AUTOMOBILE MECHANIC ASSISTANT) [facility] Time Signature TMP Auto Neg [facility] patient plasma shows no evidence of RBC alloantibodi es. Comment: YULISA MEDINA, Dictated by: YULISA MEDINA, Dictated Date/Time: 10.05.2022 7:[address] Transcribed Date/Time: 10.05.2022 7:17 AM AUTOMOBILE MECHANIC ASSISTANT Electronically Signed By: YULISA MEDINA , on 10.05.2022 7:17 AM C Specimen Anatomical Collection Method Collection Time Receive d Time (Source) Location / / Volume Laterality Blood 10/04/2022 3:18 PM 2 3:48 AUTOMOBILE MECHANIC ASSISTANT PM AUTOMOBILE MECHANIC ASSISTANT Ewa Eric APRN BLOOD BANK TEST ORDERABLES Performing Organization Address City/State/ZIP Code Phon e Number [facility] Unless otherwise noted, [address] all lab tests performed by: Division of Pathology and Laboratory Medicine [address] ABORh (10/04/2022 3:18 PM AUTOMOBILE MECHANIC ASSISTANT) P athologist Signature ABORh. A POS [facility] Specimen Anatomical Collection Method Collection Time Receive d Time (Source) Location / / Volume Laterality Blood 10/04/2022 3:18 PM 2 3:48 AUTOMOBILE MECHANIC ASSISTANT PM AUTOMOBILE MECHANIC ASSISTANT Narrative [facility] - 2 4:54 PM AUTOMOBILE MECHANIC ASSISTANT Please schedule same day Ewa Eric APRN BLOOD BANK TEST ORDERABLES Performing Organization Address City/[facility]/ZIP Code Phon e Number [facility] Unless otherwise noted, [address] all lab tests performed by: Division of Pathology and Laboratory Medicine [address] Antibody Screen (10/04/2022 3:18 PM AUTOMOBILE MECHANIC ASSISTANT) P athologist Signature ABSC. Negative ABSC [facility] Specimen Anatomical Collection Method Collection Time Receive d Time (Source) Location / / Volume Laterality Blood 10/04/2022 3:18 PM 2 3:48 AUTOMOBILE MECHANIC ASSISTANT PM AUTOMOBILE MECHANIC ASSISTANT Narrative [facility] - 2 4:54 PM AUTOMOBILE MECHANIC ASSISTANT Please schedule same day Ewa Eric APRN BLOOD BANK TEST ORDERABLES Performing Organization Address City/State/ZIP Code Phon e Number [facility] Unless otherwise noted, [address] all lab tests performed by: Division of Pathology and Laboratory Medicine [address] after 09/09/2022 Insurance Payer Benefit Plan / Subscriber ID Effective Dates Phone Addre ss Type Group BCBS NON [place]BS [place] BLUE [id number] 2023-Prese [address] [id number] HMO CONTRACTED ADVANTAGE [place], [place] EXCHANGE PLAN [id number] 1 Britney Mendoza Personal/Famil Self 1980 [address]) [id number] [place], [place] [address] Advance Directives Code Status Date Activated Date Inactivated Comments Full Code 03/23/2022 2:54 AM 03/23/2022 4:23 PM Care Teams Excavating Contractor Relationship Specialty Start Date End Date Steve Kelley MD PCP - External Primary Obstetrics/Gynecology 02/15/22 Care Provider [address] [place] [address] Jodee Moffett, ENRRIQUE - External Follow Hematology and Oncology MD Farrell A [address] [place], [place] [id number] Dana Lowry MD Consulting Physician Rheumatology 01/14/23 [facility] [place] [address] Shama Byrd Consulting Physician Head and Neck Surgery 07/25/23 MD Edi [facility] [place] [address]
[2023-09-09 17:39] LABS: Urine Bacteria <20 /HPF (<20); Urine Bilirubin NEGATIVE (Negative); Urine Blood Negative (Negative); Urine Clarity Extremely Turbid (Clear); Urine Color Yellow (Yellow); Urine Glucose NEGATIVE (Negative); Urine Mucus Slight /HPF (None Seen); Urine Protein NEGATIVE (Negative); Urine RBC <5 /HPF (None Seen); Urine Urobilinogen 2+ (Normal)
--- OUTSIDE RECORDS SUMMARY | 2023-09-09 18:14 | XMS REPORT | Continuity of Care Document ---
:1980 Author Organization [facility] t Address [address] [place] [address] Care Team Providers Name Role Phone Asked, No Pcp Primary Care Physician Unavailable SYSTEM, PROVIDER NOT IN Attending Clinician Unavailable Ewa Eric APRN Attending Clinician Carson CLEMONS, Shama Daley Attending Clinician Srinivas AZAR, Nery Carlos Attending Clinician Unavailable Ashley Lowry MD Attending Clinician GWEN WALLACE Attending Clinician Unavailable Raul CLEMONS, Ashia Menard Attending Clinician [phone] Yamini PhD, Juani Watkins Attending Clinician ASHLEY LOWRY Attending Clinician Unavailable LUIS ALFREDO BRUCE Attending Clinician Unavailable Tre Dye RN, Vianney Watkins Attending Clinician [phone] Heladio Otoole RN, Rula Watkins Attending Clinician Unavailable CHANNING GAONA Attending Clinician Unavailable Evans AZAR, Lisa Attending Clinician Delta AZAR, Maren Attending Clinician Liam RN, Alisia Attending Clinician Laurel AZAR, Alfa L Attending Clinician Unavailable Aminah AZAR, Ten [place] Attending Clinician Frances CLEMONS, Eugene Meyers Attending Clinician Mark CLEMONS, Becca Attending Clinician Jimenez AZAR, Michelle Merchant Attending Clinician Unavailable Alia Gutierrez MA Attending Clinician Unavailable Nelli AZAR, Sarah Quiñones Attending Clinician Renea Bhagat APRN Attending Clinician Afshin LYNCH, Allison Bullock Attending Clinician Amaya RN, Lee Fry Attending Clinician Unavailable Aletha CLEMONS, Ignacio Attending Clinician Irene CLEMONS, Sinai Attending Clinician Lyle CLEMONS, Nikolay Attending Clinician Nikko Garcia MD Attending Clinician NIKKO GARCIA Attending Clinician Unavailable SUHA_NOEL Attending Clinician Unavailable Sergey Wheatley MD Attending Clinician Christy Guzman MD Attending Clinician EUGENE SIM Admitting Clinician Unavailable ML Admitting Clinician Unavailable SERGEY WHEATLEY Admitting Clinician Unavailable Payers Payer Name Policy Type Policy Number Effective Date Expiration Date S ida BCBS PPO POS OUT [id number] 2022 2023 OF STATE GENERIC 00:00:00 00:00:00 RUSLAN [id number] 2020 2023 CHILDRENS 00:00:00 00:00:00 MEDICAID STAR NON SSI Problems Condition Condition Condition Status Onset Resolution Last Treating Co mments Source Name Details Category Date Date Treatment Clinician Date Tobacco Tobacco Disease Active Univers use use 05-08 [place] Segundo burrell [facility] Iron Iron Disease Active Univers deficiency deficiency 2-24 it y of anemia anemia 00:00: [place] 00 MD Segundo burrell [facility] Anemia Anemia Disease Active Univers 6-18 ity of 00:00: [place] 00 MD Segundo burrell [facility] Headache Headache Disease Active Unive rs 6-18 ity of 00:00: [place] 00 MD Segundo burrell [facility] MORBID MORBID Diagnosis Active 2012-12-10 Hi gtroland OBESITY, OBESITY, 2-15 15:18:00 l CHOLECYSTI CHOLECYSTI 00:00: He rmann TIS TIS 00 Active 11/20/2012 [facility] 327.23 327.23 Diagnosis Active 2011-102012-12-01 Me del realroland Active 10-10 14:57:00 l 08/10/2012 08:00: Abhijit burrell 00 [facility] Cholelithi Problem Active 2012-12-14 M divine asis Cholelithi 09:17:38 l asis Lolo Active Problem 12/14/2012 [facility] ADMINISTRT ADMINISTR Diagnosis Active 2012-12-10 Memoria VE ENCOUNT TVE 15:18:00 l NOS ENCOUNT Lolo NOS Active [facility] GERD - GERD - Problem Resolve 2012-12-14 Mem oria Gastro-eso Gastro-eso d 09:17:38 l phageal phageal Dipesh reflux reflux disease disease Resolved Problem 12/14/2012 [facility] HTN - HTN - Problem Resolve 2012-12-14 [facility] Hypertensi Hypertensi d 09:17:38 l on on Dipesh Resolved Problem 12/14/2012 [facility] Ovarian Ovarian Problem Resolve 2012-12-14 M emoria cystic cystic d 09:17:38 l mass mass Lolo Resolved Problem 12/14/2012 [facility] Sleep Sleep Problem Resolve 2012-12-14 [facility] apnea apnea d 09:17:38 l Resolved Dipesh Problem 12/14/2012 [facility] Allergies, Adverse Reactions, Alerts Allergy Allergy Status Severity Reaction(s) Onset Inactive Treating Comm ents Source Name Type Date Date Clinician Ondanset Propensi Active Causes Univer s lauren ty to 4-11 elevated ity of adverse 00:00: blood [place] reaction 00 pressure MD s [facility] ONDANSET DRUG Active 2023-0 MD LAUREN INGREDI 4-11 Anderso 00:00: n 00 ONDANSET DRUG Active 2023-0 MD LAUREN INGREDI 4-11 Anderso 00:00: n 00 ONDANSET DRUG Active 2023-0 MD LAUREN INGREDI 4-11 Anderso 00:00: n 00 ONDANSET DRUG Active 2023-0 MD LAUREN INGREDI 4-11 Anderso 00:00: n 00 ONDANSET DRUG Active 2023-0 MD LAUREN INGREDI 4-11 Anderso 00:00: n 00 ONDANSET DRUG Active 2023-0 MD LAUREN INGREDI 4-11 Anderso 00:00: n 00 ONDANSET DRUG Active 2023-0 MD LAUREN INGREDI 4-11 Anderso 00:00: n 00 ONDANSET DRUG Active 2023-0 MD LAUREN INGREDI 4-11 Anderso 00:00: n 00 ONDANSET DRUG Active 2023-0 MD LAUREN INGREDI 4-11 Anderso 00:00: n 00 ONDANSET DRUG Active 2023-0 MD LAUREN INGREDI 4-11 Anderso 00:00: n 00 ONDANSET DRUG Active 2023-0 MD LAUREN INGREDI 4-11 Anderso 00:00: n 00 ONDANSET DRUG Active 2023-0 MD LAUREN INGREDI 4-11 Anderso 00:00: n 00 ONDANSET DRUG Active 2023-0 MD LAUREN INGREDI 4-11 Anderso 00:00: n 00 ONDANSET DRUG Active 2023-0 MD LAUREN INGREDI 4-11 Anderso 00:00: n 00 ONDANSET DRUG Active 2023-0 MD LAUREN INGREDI 4-11 Anderso 00:00: n 00 ONDANSET DRUG Active 2023-0 MD LAUREN INGREDI 4-11 Anderso 00:00: n 00 ONDANSET DRUG Active 2023-0 MD LAUREN INGREDI 4-11 Anderso 00:00: n 00 ONDANSET DRUG Active 2023-0 MD LAUREN INGREDI 4-11 Anderso 00:00: n 00 ONDANSET DRUG Active 2023-0 MD LAUREN INGREDI 4-11 Anderso 00:00: n 00 ONDANSET DRUG Active 2023-0 MD LAUREN INGREDI 4-11 Anderso 00:00: n 00 ONDANSET DRUG Active 2023-0 MD LAUREN INGREDI 4-11 Anderso 00:00: n 00 ONDANSET DRUG Active 2023-0 MD LAUREN INGREDI 4-11 Anderso 00:00: n 00 ONDANSET DRUG Active 2023-0 MD LAUREN INGREDI 4-11 Anderso 00:00: n 00 ONDANSET DRUG Active 2023-0 MD LAUREN INGREDI 4-11 Anderso 00:00: n 00 ONDANSET DRUG Active 2023-0 MD LAUREN INGREDI 4-11 Anderso 00:00: n 00 ONDANSET DRUG Active 2023-0 MD LAUREN INGREDI 4-11 Anderso 00:00: n 00 ONDANSET DRUG Active 2023-0 MD LAUREN INGREDI 4-11 Anderso 00:00: n 00 ONDANSET DRUG Active 2023-0 MD LAUREN INGREDI 4-11 Anderso 00:00: n 00 ONDANSET DRUG Active 2023-0 MD LAUREN INGREDI 4-11 Anderso 00:00: n 00 ONDANSET DRUG Active 2023-0 MD LAUREN INGREDI 4-11 Anderso 00:00: n 00 ONDANSET DRUG Active 2023-0 MD LAUREN INGREDI 4-11 Anderso 00:00: n 00 ONDANSET DRUG Active 2023-0 MD LAUREN INGREDI 4-11 Anderso 00:00: n 00 ONDANSET DRUG Active 2023-0 MD LAUREN INGREDI 4-11 Anderso 00:00: n 00 ONDANSET DRUG Active 2023-0 MD LAUREN INGREDI 4-11 Anderso 00:00: n 00 ONDANSET DRUG Active 2023-0 MD LAUREN INGREDI 4-11 Anderso 00:00: n 00 ONDANSET DRUG Active 2023-0 MD LAUREN INGREDI 4-11 Anderso 00:00: n 00 ONDANSET DRUG Active 2023-0 MD LAUREN INGREDI 4-11 Anderso 00:00: n 00 ONDANSET DRUG Active 2023-0 MD LAUREN INGREDI 4-11 Anderso 00:00: n 00 ONDANSET DRUG Active 2023-0 MD LAUREN INGREDI 4-11 Anderso 00:00: n 00 ONDANSET DRUG Active 2023-0 MD LAUREN INGREDI 4-11 Anderso 00:00: n 00 ONDANSET DRUG Active 2023-0 MD LAUREN INGREDI 4-11 Anderso 00:00: n 00 ONDANSET DRUG Active 2023-0 MD LAUREN INGREDI 4-11 Anderso 00:00: n 00 ONDANSET DRUG Active 2023-0 MD LAUREN INGREDI 4-11 Anderso 00:00: n 00 ONDANSET DRUG Active 2023-0 MD LAUREN INGREDI 4-11 Anderso 00:00: n 00 ONDANSET DRUG Active 2023-0 MD LAUREN INGREDI 4-11 Anderso 00:00: n 00 ONDANSET DRUG Active 2023-0 MD LAUREN INGREDI 4-11 Anderso 00:00: n 00 ONDANSET DRUG Active 2023-0 MD LAUREN INGREDI 4-11 Anderso 00:00: n 00 ONDANSET DRUG Active 2023-0 MD LAUREN INGREDI 4-11 Anderso 00:00: n 00 ONDANSET DRUG Active 2023-0 MD LAUREN INGREDI 4-11 Anderso 00:00: n 00 ONDANSET DRUG Active 2023-0 MD LAUREN INGREDI 4-11 Anderso 00:00: n 00 ONDANSET DRUG Active 2023-0 MD LAUREN INGREDI 4-11 Anderso 00:00: n 00 ONDANSET DRUG Active 2023-0 MD LAUREN INGREDI 4-11 Anderso 00:00: n 00 ONDANSET DRUG Active 2023-0 MD LAUREN INGREDI 4-11 Anderso 00:00: n 00 ONDANSET DRUG Active 2023-0 MD LAUREN INGREDI 4-11 Anderso 00:00: n 00 ONDANSET DRUG Active 2023-0 MD LAUREN INGREDI 4-11 Anderso 00:00: n 00 ONDANSET DRUG Active 2023-0 MD LAUREN INGREDI 4-11 Anderso 00:00: n 00 ONDANSET DRUG Active 2023-0 MD LAUREN INGREDI 4-11 Anderso 00:00: n 00 ONDANSET DRUG Active 2023-0 MD LAUREN INGREDI 4-11 Anderso 00:00: n 00 ONDANSET DRUG Active 2023-0 MD LAUREN INGREDI 4-11 Anderso 00:00: n 00 ONDANSET DRUG Active 2023-0 MD LAUREN INGREDI 4-11 Anderso 00:00: n 00 ONDANSET DRUG Active 2023-0 MD LAUREN INGREDI 4-11 Anderso 00:00: n 00 ONDANSET DRUG Active 2023-0 MD LAUREN INGREDI 4-11 Anderso 00:00: n 00 ONDANSET DRUG Active 2023-0 MD LAUREN INGREDI 4-11 Anderso 00:00: n 00 ONDANSET DRUG Active 2023-0 MD LAUREN INGREDI 4-11 Anderso 00:00: n 00 ONDANSET DRUG Active 2023-0 MD LAUREN INGREDI 4-11 Anderso 00:00: n 00 ONDANSET DRUG Active 2023-0 MD LAUREN INGREDI 4-11 Anderso 00:00: n 00 ONDANSET DRUG Active 2023-0 MD LAUREN INGREDI 4-11 Anderso 00:00: n 00 ONDANSET DRUG Active 2023-0 MD LAUREN INGREDI 4-11 Anderso 00:00: n 00 ONDANSET DRUG Active 2023-0 MD LAUREN INGREDI 4-11 Anderso 00:00: n 00 ONDANSET DRUG Active 2023-0 MD LAUREN INGREDI 4-11 Anderso 00:00: n 00 ONDANSET DRUG Active 2023-0 MD LAUREN INGREDI 4-11 Anderso 00:00: n 00 ONDANSET DRUG Active 2023-0 MD LAUREN INGREDI 4-11 Anderso 00:00: n 00 ONDANSET DRUG Active 2023-0 MD LAUREN INGREDI 4-11 Anderso 00:00: n 00 ONDANSET DRUG Active 2023-0 MD LAUREN INGREDI 4-11 Anderso 00:00: n 00 ONDANSET DRUG Active 2023-0 MD LAUREN INGREDI 4-11 Anderso 00:00: n 00 ONDANSET DRUG Active 2023-0 MD LAUREN INGREDI 4-11 Anderso 00:00: n 00 ONDANSET DRUG Active 2023-0 MD LAUREN INGREDI 4-11 Anderso 00:00: n 00 ONDANSET DRUG Active 2023-0 MD LAUREN INGREDI 4-11 Anderso 00:00: n 00 ONDANSET DRUG Active 2023-0 MD LAUREN INGREDI 4-11 Anderso 00:00: n 00 ONDANSET DRUG Active 2023-0 MD LAUREN INGREDI 4-11 Anderso 00:00: n 00 ONDANSET DRUG Active 2023-0 MD LAUREN INGREDI 4-11 Anderso 00:00: n 00 ONDANSET DRUG Active 2023-0 MD LAUREN INGREDI 4-11 Anderso 00:00: n 00 ONDANSET DRUG Active 2023-0 MD LAUREN INGREDI 4-11 Anderso 00:00: n 00 ONDANSET DRUG Active 2023-0 MD LAUREN INGREDI 4-11 Anderso 00:00: n 00 ONDANSET DRUG Active 2023-0 MD LAUREN INGREDI 4-11 Anderso 00:00: n 00 ONDANSET DRUG Active 2023-0 MD LAUREN INGREDI 4-11 Anderso 00:00: n 00 ONDANSET DRUG Active 2023-0 MD LAUREN INGREDI 4-11 Anderso 00:00: n 00 ONDANSET DRUG Active 2023-0 MD LAUREN INGREDI 4-11 Anderso 00:00: n 00 ONDANSET DRUG Active 2023-0 MD LAUREN INGREDI 4-11 Anderso 00:00: n 00 ONDANSET DRUG Active 2023-0 MD LAUREN INGREDI 4-11 Anderso 00:00: n 00 ONDANSET DRUG Active 2023-0 MD LAUREN INGREDI 4-11 Anderso 00:00: n 00 ONDANSET DRUG Active 2023-0 MD LAUREN INGREDI 4-11 Anderso 00:00: n 00 ONDANSET DRUG Active 2023-0 MD LAUREN INGREDI 4-11 Anderso 00:00: n 00 ONDANSET DRUG Active 2023-0 MD LAUREN INGREDI 4-11 Anderso 00:00: n 00 ONDANSET DRUG Active 2023-0 MD LAUREN INGREDI 4-11 Anderso 00:00: n 00 ONDANSET DRUG Active 2023-0 MD LAUREN INGREDI 4-11 Anderso 00:00: n 00 ONDANSET DRUG Active 2023-0 MD LAUREN INGREDI 4-11 Anderso 00:00: n 00 ONDANSET DRUG Active 2023-0 MD LAUREN INGREDI 4-11 Anderso 00:00: n 00 ONDANSET DRUG Active 2023-0 MD LAUREN INGREDI 4-11 Anderso 00:00: n 00 ONDANSET DRUG Active 2023-0 MD LAUREN INGREDI 4-11 Anderso 00:00: n 00 ONDANSET DRUG Active 2023-0 MD LAUREN INGREDI 4-11 Anderso 00:00: n 00 ONDANSET DRUG Active 2023-0 MD LAUREN INGREDI 4-11 Anderso 00:00: n 00 ONDANSET DRUG Active 2023-0 MD LAUREN INGREDI 4-11 Anderso 00:00: n 00 ONDANSET DRUG Active 2023-0 MD LAUREN INGREDI 4-11 Anderso 00:00: n 00 ONDANSET DRUG Active 2023-0 MD LAUREN INGREDI 4-11 Anderso 00:00: n 00 ONDANSET DRUG Active 2023-0 MD LAUREN INGREDI 4-11 Anderso 00:00: n 00 ONDANSET DRUG Active 2023-0 MD LAUREN INGREDI 4-11 Anderso 00:00: n 00 ONDANSET DRUG Active 2023-0 MD LAUREN INGREDI 4-11 Anderso 00:00: n 00 ONDANSET DRUG Active 2023-0 MD LAUREN INGREDI 4-11 Anderso 00:00: n 00 ONDANSET DRUG Active 2023-0 MD LAUREN INGREDI 4-11 Anderso 00:00: n 00 ONDANSET DRUG Active 2023-0 MD LAUREN INGREDI 4-11 Anderso 00:00: n 00 ONDANSET DRUG Active 2023-0 MD LAUREN INGREDI 4-11 Anderso 00:00: n 00 ONDANSET DRUG Active 2023-0 MD LAUREN INGREDI 4-11 Anderso 00:00: n 00 ONDANSET DRUG Active 2023-0 MD LAUREN INGREDI 4-11 Anderso 00:00: n 00 ONDANSET DRUG Active 2023-0 MD LAUREN INGREDI 4-11 Anderso 00:00: n 00 ONDANSET DRUG Active 2023-0 MD LAUREN INGREDI 4-11 Anderso 00:00: n 00 ONDANSET DRUG Active 2023-0 MD LAUREN INGREDI 4-11 Anderso 00:00: n 00 ONDANSET DRUG Active 2023-0 MD LAUREN INGREDI 4-11 Anderso 00:00: n 00 ONDANSET DRUG Active 2023-0 MD LAUREN INGREDI 4-11 Anderso 00:00: n 00 ONDANSET DRUG Active 2023-0 MD LAUREN INGREDI 4-11 Anderso 00:00: n 00 ONDANSET DRUG Active 2023-0 MD LAUREN INGREDI 4-11 Anderso 00:00: n 00 ONDANSET DRUG Active 2023-0 MD LAUREN INGREDI 4-11 Anderso 00:00: n 00 ONDANSET DRUG Active 2023-0 MD LAUREN INGREDI 4-11 Anderso 00:00: n 00 Codeine Drug Active Hives 2-0 Univers Allergy 8-03 ity of 00:00: [place] 00 MD Raymond n [facility] CODEINE DRUG Active High Hives 2022-0 MD INGREDI 8-03 Anderso 00:00: n 00 CODEINE DRUG Active High Hives 2022-0 MD INGREDI 8-03 Anderso 00:00: n 00 CODEINE DRUG Active High Hives 2022-0 MD INGREDI 8-03 Anderso 00:00: n 00 CODEINE DRUG Active High Hives 2022-0 MD INGREDI 8-03 Anderso 00:00: n 00 CODEINE DRUG Active High Hives 2022-0 MD INGREDI 8-03 Anderso 00:00: n 00 CODEINE DRUG Active High Hives 2022-0 MD INGREDI 8-03 Anderso 00:00: n 00 CODEINE DRUG Active High Hives 2022-0 MD INGREDI 8-03 Anderso 00:00: n 00 CODEINE DRUG Active High Hives 2022-0 MD INGREDI 8-03 Anderso 00:00: n 00 CODEINE DRUG Active High Hives 2022-0 MD INGREDI 8-03 Anderso 00:00: n 00 CODEINE DRUG Active High Hives 2022-0 MD INGREDI 8-03 Anderso 00:00: n 00 CODEINE DRUG Active High Hives 2022-0 MD INGREDI 8-03 Anderso 00:00: n 00 CODEINE DRUG Active High Hives 2022-0 MD INGREDI 8-03 Anderso 00:00: n 00 CODEINE DRUG Active High Hives 2022-0 MD INGREDI 8-03 Anderso 00:00: n 00 CODEINE DRUG Active High Hives 2022-0 MD INGREDI 8-03 Anderso 00:00: n 00 CODEINE DRUG Active High Hives 2022-0 MD INGREDI 8-03 Anderso 00:00: n 00 CODEINE DRUG Active High Hives 2022-0 MD INGREDI 8-03 Anderso 00:00: n 00 CODEINE DRUG Active High Hives 2022-0 MD INGREDI 8-03 Anderso 00:00: n 00 CODEINE DRUG Active High Hives 2022-0 MD INGREDI 8-03 Anderso 00:00: n 00 CODEINE DRUG Active High Hives 2-0 MD INGREDI 8-03 Anderso 00:00: n 00 CODEINE DRUG Active High Hives 2022-0 MD INGREDI 8-03 Anderso 00:00: n 00 CODEINE DRUG Active High Hives 2022-0 MD INGREDI 8-03 Anderso 00:00: n 00 CODEINE DRUG Active High Hives 2022-0 MD INGREDI 8-03 Anderso 00:00: n 00 CODEINE DRUG Active High Hives 2022-0 MD INGREDI 8-03 Anderso 00:00: n 00 CODEINE DRUG Active High Hives 2022-0 MD INGREDI 8-03 Anderso 00:00: n 00 CODEINE DRUG Active High Hives 2022-0 MD INGREDI 8-03 Anderso 00:00: n 00 CODEINE DRUG Active High Hives 2022-0 MD INGREDI 8-03 Anderso 00:00: n 00 CODEINE DRUG Active High Hives 2022-0 MD INGREDI 8-03 Anderso 00:00: n 00 CODEINE DRUG Active High Hives 2022-0 MD INGREDI 8-03 Anderso 00:00: n 00 CODEINE DRUG Active High Hives 2022-0 MD INGREDI 8-03 Anderso 00:00: n 00 CODEINE DRUG Active High Hives 2022-0 MD INGREDI 8-03 Anderso 00:00: n 00 CODEINE DRUG Active High Hives 2022-0 MD INGREDI 8-03 Anderso 00:00: n 00 CODEINE DRUG Active High Hives 2022-0 MD INGREDI 8-03 Anderso 00:00: n 00 CODEINE DRUG Active High Hives 2022-0 MD INGREDI 8-03 Anderso 00:00: n 00 CODEINE DRUG Active High Hives 2022-0 MD INGREDI 8-03 Anderso 00:00: n 00 CODEINE DRUG Active High Hives 2022-0 MD INGREDI 8-03 Anderso 00:00: n 00 CODEINE DRUG Active High Hives 2022-0 MD INGREDI 8-03 Anderso 00:00: n 00 CODEINE DRUG Active High Hives 2022-0 MD INGREDI 8-03 Anderso 00:00: n 00 CODEINE DRUG Active High Hives 2022-0 MD INGREDI 8-03 Anderso 00:00: n 00 CODEINE DRUG Active High Hives 2022-0 MD INGREDI 8-03 Anderso 00:00: n 00 CODEINE DRUG Active High Hives 2022-0 MD INGREDI 8-03 Anderso 00:00: n 00 CODEINE DRUG Active High Hives 2022-0 MD INGREDI 8-03 Anderso 00:00: n 00 CODEINE DRUG Active High Hives 2022-0 MD INGREDI 8-03 Anderso 00:00: n 00 CODEINE DRUG Active High Hives 2022-0 MD INGREDI 8-03 Anderso 00:00: n 00 CODEINE DRUG Active High Hives 2022-0 MD INGREDI 8-03 Anderso 00:00: n 00 CODEINE DRUG Active High Hives 2022-0 MD INGREDI 8-03 Anderso 00:00: n 00 CODEINE DRUG Active High Hives 2022-0 MD INGREDI 8-03 Anderso 00:00: n 00 CODEINE DRUG Active High Hives 2022-0 MD INGREDI 8-03 Anderso 00:00: n 00 CODEINE DRUG Active High Hives 2022-0 MD INGREDI 8-03 Anderso 00:00: n 00 CODEINE DRUG Active High Hives 2022-0 MD INGREDI 8-03 Anderso 00:00: n 00 CODEINE DRUG Active High Hives 2022-0 MD INGREDI 8-03 Anderso 00:00: n 00 CODEINE DRUG Active High Hives 2022-0 MD INGREDI 8-03 Anderso 00:00: n 00 CODEINE DRUG Active High Hives 2022-0 MD INGREDI 8-03 Anderso 00:00: n 00 CODEINE DRUG Active High Hives 2022-0 MD INGREDI 8-03 Anderso 00:00: n 00 CODEINE DRUG Active High Hives 2022-0 MD INGREDI 8-03 Anderso 00:00: n 00 CODEINE DRUG Active High Hives 2022-0 MD INGREDI 8-03 Anderso 00:00: n 00 CODEINE DRUG Active High Hives 2022-0 MD INGREDI 8-03 Anderso 00:00: n 00 CODEINE DRUG Active High Hives 2022-0 MD INGREDI 8-03 Anderso 00:00: n 00 CODEINE DRUG Active High Hives 2022-0 MD INGREDI 8-03 Anderso 00:00: n 00 CODEINE DRUG Active High Hives 2022-0 MD INGREDI 8-03 Anderso 00:00: n 00 CODEINE DRUG Active High Hives 2022-0 MD INGREDI 8-03 Anderso 00:00: n 00 CODEINE DRUG Active High Hives 2022-0 MD INGREDI 8-03 Anderso 00:00: n 00 CODEINE DRUG Active High Hives 2022-0 MD INGREDI 8-03 Anderso 00:00: n 00 CODEINE DRUG Active High Hives 2022-0 MD INGREDI 8-03 Anderso 00:00: n 00 CODEINE DRUG Active High Hives 2022-0 MD INGREDI 8-03 Anderso 00:00: n 00 CODEINE DRUG Active High Hives 2022-0 MD INGREDI 8-03 Anderso 00:00: n 00 CODEINE DRUG Active High Hives 2022-0 MD INGREDI 8-03 Anderso 00:00: n 00 CODEINE DRUG Active High Hives 2022-0 MD INGREDI 8-03 Anderso 00:00: n 00 CODEINE DRUG Active High Hives 2022-0 MD INGREDI 8-03 Anderso 00:00: n 00 CODEINE DRUG Active High Hives 2022-0 MD INGREDI 8-03 Anderso 00:00: n 00 CODEINE DRUG Active High Hives 2022-0 MD INGREDI 8-03 Anderso 00:00: n 00 CODEINE DRUG Active High Hives 2022-0 MD INGREDI 8-03 Anderso 00:00: n 00 CODEINE DRUG Active High Hives 2022-0 MD INGREDI 8-03 Anderso 00:00: n 00 CODEINE DRUG Active High Hives 2022-0 MD INGREDI 8-03 Anderso 00:00: n 00 CODEINE DRUG Active High Hives 2022-0 MD INGREDI 8-03 Anderso 00:00: n 00 CODEINE DRUG Active High Hives 2022-0 MD INGREDI 8-03 Anderso 00:00: n 00 CODEINE DRUG Active High Hives 2022-0 MD INGREDI 8-03 Anderso 00:00: n 00 CODEINE DRUG Active High Hives 2-0 MD INGREDI 8-03 Anderso 00:00: n 00 CODEINE DRUG Active High Hives 2022-0 MD INGREDI 8-03 Anderso 00:00: n 00 CODEINE DRUG Active High Hives 2022-0 MD INGREDI 8-03 Anderso 00:00: n 00 CODEINE DRUG Active High Hives 2022-0 MD INGREDI 8-03 Anderso 00:00: n 00 CODEINE DRUG Active High Hives 2022-0 MD INGREDI 8-03 Anderso 00:00: n 00 CODEINE DRUG Active High Hives 2022-0 MD INGREDI 8-03 Anderso 00:00: n 00 CODEINE DRUG Active High Hives 2022-0 MD INGREDI 8-03 Anderso 00:00: n 00 CODEINE DRUG Active High Hives 2022-0 MD INGREDI 8-03 Anderso 00:00: n 00 CODEINE DRUG Active High Hives 2022-0 MD INGREDI 8-03 Anderso 00:00: n 00 CODEINE DRUG Active High Hives 2022-0 MD INGREDI 8-03 Anderso 00:00: n 00 CODEINE DRUG Active High Hives 2022-0 MD INGREDI 8-03 Anderso 00:00: n 00 CODEINE DRUG Active High Hives 2022-0 MD INGREDI 8-03 Anderso 00:00: n 00 CODEINE DRUG Active High Hives 2022-0 MD INGREDI 8-03 Anderso 00:00: n 00 CODEINE DRUG Active High Hives 2022-0 MD INGREDI 8-03 Anderso 00:00: n 00 CODEINE DRUG Active High Hives 2022-0 MD INGREDI 8-03 Anderso 00:00: n 00 CODEINE DRUG Active High Hives 2022-0 MD INGREDI 8-03 Anderso 00:00: n 00 CODEINE DRUG Active High Hives 2022-0 MD INGREDI 8-03 Anderso 00:00: n 00 CODEINE DRUG Active High Hives 2022-0 MD INGREDI 8-03 Anderso 00:00: n 00 CODEINE DRUG Active High Hives 2022-0 MD INGREDI 8-03 Anderso 00:00: n 00 CODEINE DRUG Active High Hives 2-0 MD INGREDI 8-03 Anderso 00:00: n 00 CODEINE DRUG Active High Hives 2022-0 MD INGREDI 8-03 Anderso 00:00: n 00 CODEINE DRUG Active High Hives 2022-0 MD INGREDI 8-03 Anderso 00:00: n 00 CODEINE DRUG Active High Hives 2022-0 MD INGREDI 8-03 Anderso 00:00: n 00 CODEINE DRUG Active High Hives 2022-0 MD INGREDI 8-03 Anderso 00:00: n 00 CODEINE DRUG Active High Hives 2022-0 MD INGREDI 8-03 Anderso 00:00: n 00 CODEINE DRUG Active High Hives 2022-0 MD INGREDI 8-03 Anderso 00:00: n 00 CODEINE DRUG Active High Hives 2022-0 MD INGREDI 8-03 Anderso 00:00: n 00 CODEINE DRUG Active High Hives 2022-0 MD INGREDI 8-03 Anderso 00:00: n 00 CODEINE DRUG Active High Hives 2022-0 MD INGREDI 8-03 Anderso 00:00: n 00 CODEINE DRUG Active High Hives 2022-0 MD INGREDI 8-03 Anderso 00:00: n 00 CODEINE DRUG Active High Hives 2022-0 MD INGREDI 8-03 Anderso 00:00: n 00 CODEINE DRUG Active High Hives 2022-0 MD INGREDI 8-03 Anderso 00:00: n 00 CODEINE DRUG Active High Hives 2022-0 MD INGREDI 8-03 Anderso 00:00: n 00 CODEINE DRUG Active High Hives 2022-0 MD INGREDI 8-03 Anderso 00:00: n 00 CODEINE DRUG Active High Hives 2022-0 MD INGREDI 8-03 Anderso 00:00: n 00 CODEINE DRUG Active High Hives 2022-0 MD INGREDI 8-03 Anderso 00:00: n 00 CODEINE DRUG Active High Hives 2022-0 MD INGREDI 8-03 Anderso 00:00: n 00 CODEINE DRUG Active High Hives 2022-0 MD INGREDI 8-03 Anderso 00:00: n 00 CODEINE DRUG Active High Hives 2022-0 MD INGREDI 8-03 Anderso 00:00: n 00 CODEINE DRUG Active High Hives 2022-0 MD INGREDI 8-03 Anderso 00:00: n 00 CODEINE DRUG Active High Hives 2022-0 MD INGREDI 8-03 Anderso 00:00: n 00 CODEINE DRUG Active High Hives 2022-0 MD INGREDI 8-03 Anderso 00:00: n 00 CODEINE DRUG Active High Hives 2022-0 MD INGREDI 8-03 Anderso 00:00: n 00 CODEINE DRUG Active High Hives 2022-0 MD INGREDI 8-03 Anderso 00:00: n 00 CODEINE DRUG Active High Hives 2022-0 MD INGREDI 8-03 Anderso 00:00: n 00 CODEINE DRUG Active High Hives 2022-0 MD INGREDI 8-03 Anderso 00:00: n 00 CODEINE DRUG Active High Hives 2022-0 MD INGREDI 8-03 Anderso 00:00: n 00 CODEINE DRUG Active High Hives 2022-0 MD INGREDI 8-03 Anderso 00:00: n 00 CODEINE DRUG Active High Hives 2022-0 MD INGREDI 8-03 Anderso 00:00: n 00 CODEINE DRUG Active High Hives 2022-0 MD INGREDI 8-03 Anderso 00:00: n 00 CODEINE DRUG Active High Hives 2022-0 MD INGREDI 8-03 Anderso 00:00: n 00 CODEINE DRUG Active High Hives 2022-0 MD INGREDI 8-03 Anderso 00:00: n 00 CODEINE DRUG Active High Hives 2022-0 MD INGREDI 8-03 Anderso 00:00: n 00 CODEINE DRUG Active High Hives 2022-0 MD INGREDI 8-03 Anderso 00:00: n 00 CODEINE DRUG Active High Hives 2022-0 MD INGREDI 8-03 Anderso 00:00: n 00 CODEINE DRUG Active High Hives 2022-0 MD INGREDI 8-03 Anderso 00:00: n 00 CODEINE DRUG Active High Hives 2022-0 MD INGREDI 8-03 Anderso 00:00: n 00 CODEINE DRUG Active High Hives 2022-0 MD INGREDI 8-03 Anderso 00:00: n 00 CODEINE DRUG Active High Hives 2022-0 MD INGREDI 8-03 Anderso 00:00: n 00 CODEINE DRUG Active High Hives 2022-0 MD INGREDI 8-03 Anderso 00:00: n 00 CODEINE DRUG Active High Hives 2022-0 MD INGREDI 8-03 Anderso 00:00: n 00 CODEINE DRUG Active High Hives 2022-0 MD INGREDI 8-03 Anderso 00:00: n 00 CODEINE DRUG Active High Hives 2022-0 MD INGREDI 8-03 Anderso 00:00: n 00 CODEINE DRUG Active High Hives 2022-0 MD INGREDI 8-03 Anderso 00:00: n 00 CODEINE DRUG Active High Hives 2022-0 MD INGREDI 8-03 Anderso 00:00: n 00 CODEINE DRUG Active High Hives 2022-0 MD INGREDI 8-03 Anderso 00:00: n 00 CODEINE DRUG Active High Hives 2022-0 MD INGREDI 8-03 Anderso 00:00: n 00 CODEINE DRUG Active High Hives 2022-0 MD INGREDI 8-03 Anderso 00:00: n 00 CODEINE DRUG Active High Hives 2022-0 MD INGREDI 8-03 Anderso 00:00: n 00 CODEINE DRUG Active High Hives 2022-0 MD INGREDI 8-03 Anderso 00:00: n 00 CODEINE DRUG Active High Hives 2022-0 MD INGREDI 8-03 Anderso 00:00: n 00 CODEINE DRUG Active High Hives 2022-0 MD INGREDI 8-03 Anderso 00:00: n 00 CODEINE DRUG Active High Hives 2022-0 MD INGREDI 8-03 Anderso 00:00: n 00 CODEINE DRUG Active High Hives 2022-0 MD INGREDI 8-03 Anderso 00:00: n 00 CODEINE DRUG Active High Hives 2022-0 MD INGREDI 8-03 Anderso 00:00: n 00 CODEINE DRUG Active High Hives 2022-0 MD INGREDI 8-03 Anderso 00:00: n 00 CODEINE DRUG Active High Hives 2022-0 MD INGREDI 8-03 Anderso 00:00: n 00 CODEINE DRUG Active High Hives 2-0 MD INGREDI 8-03 Anderso 00:00: n 00 CODEINE DRUG Active High Hives 2022-0 MD INGREDI 8-03 Anderso 00:00: n 00 CODEINE DRUG Active High Hives 2022-0 MD INGREDI 8-03 Anderso 00:00: n 00 CODEINE DRUG Active High Hives 2022-0 MD INGREDI 8-03 Anderso 00:00: n 00 CODEINE DRUG Active High Hives 2022-0 MD INGREDI 8-03 Anderso 00:00: n 00 CODEINE DRUG Active High Hives 2022-0 MD INGREDI 8-03 Anderso 00:00: n 00 CODEINE DRUG Active High Hives 2022-0 MD INGREDI 8-03 Anderso 00:00: n 00 CODEINE DRUG Active High Hives 2022-0 MD INGREDI 8-03 Anderso 00:00: n 00 CODEINE DRUG Active High Hives 2022-0 MD INGREDI 8-03 Anderso 00:00: n 00 CODEINE DRUG Active High Hives 2022-0 MD INGREDI 8-03 Anderso 00:00: n 00 CODEINE DRUG Active High Hives 2022-0 MD INGREDI 8-03 Anderso 00:00: n 00 CODEINE DRUG Active High Hives 2022-0 MD INGREDI 8-03 Anderso 00:00: n 00 CODEINE DRUG Active High Hives 2022-0 MD INGREDI 8-03 Anderso 00:00: n 00 CODEINE DRUG Active High Hives 2022-0 MD INGREDI 8-03 Anderso 00:00: n 00 CODEINE DRUG Active High Hives 2022-0 MD INGREDI 8-03 Anderso 00:00: n 00 CODEINE DRUG Active High Hives 2022-0 MD INGREDI 8-03 Anderso 00:00: n 00 CODEINE DRUG Active High Hives 2022-0 MD INGREDI 8-03 Anderso 00:00: n 00 CODEINE DRUG Active High Hives 2022-0 MD INGREDI 8-03 Anderso 00:00: n 00 CODEINE DRUG Active High Hives 2022-0 MD INGREDI 8-03 Anderso 00:00: n 00 CODEINE DRUG Active High Hives 2-0 MD INGREDI 8-03 Anderso 00:00: n 00 CODEINE DRUG Active High Hives 2022-0 MD INGREDI 8-03 Anderso 00:00: n 00 CODEINE DRUG Active High Hives 2022-0 MD INGREDI 8-03 Anderso 00:00: n 00 CODEINE DRUG Active High Hives 2022-0 MD INGREDI 8-03 Anderso 00:00: n 00 CODEINE DRUG Active High Hives 2022-0 MD INGREDI 8-03 Anderso 00:00: n 00 CODEINE DRUG Active High Hives 2022-0 MD INGREDI 8-03 Anderso 00:00: n 00 CODEINE DRUG Active High Hives 2022-0 MD INGREDI 8-03 Anderso 00:00: n 00 CODEINE DRUG Active High Hives 2022-0 MD INGREDI 8-03 Anderso 00:00: n 00 CODEINE DRUG Active High Hives 2022-0 MD INGREDI 8-03 Anderso 00:00: n 00 CODEINE DRUG Active High Hives 2022-0 MD INGREDI 8-03 Anderso 00:00: n 00 CODEINE DRUG Active High Hives 2022-0 MD INGREDI 8-03 Anderso 00:00: n 00 CODEINE DRUG Active High Hives 2022-0 MD INGREDI 8-03 Anderso 00:00: n 00 CODEINE DRUG Active High Hives 2022-0 MD INGREDI 8-03 Anderso 00:00: n 00 CODEINE DRUG Active High Hives 2022-0 MD INGREDI 8-03 Anderso 00:00: n 00 CODEINE DRUG Active High Hives 2022-0 MD INGREDI 8-03 Anderso 00:00: n 00 CODEINE DRUG Active High Hives 2022-0 MD INGREDI 8-03 Anderso 00:00: n 00 CODEINE DRUG Active High Hives 2022-0 MD INGREDI 8-03 Anderso 00:00: n 00 CODEINE DRUG Active High Hives 2022-0 MD INGREDI 8-03 Anderso 00:00: n 00 CODEINE DRUG Active High Hives 2022-0 MD INGREDI 8-03 Anderso 00:00: n 00 CODEINE DRUG Active High Hives 2022-0 MD INGREDI 8-03 Anderso 00:00: n 00 CODEINE DRUG Active High Hives 2-0 MD INGREDI 8-03 Anderso 00:00: n 00 CODEINE DRUG Active High Hives 2022-0 MD INGREDI 8-03 Anderso 00:00: n 00 CODEINE DRUG Active High Hives 2022-0 MD INGREDI 8-03 Anderso 00:00: n 00 CODEINE DRUG Active High Hives 2022-0 MD INGREDI 8-03 Anderso 00:00: n 00 CODEINE DRUG Active High Hives 2022-0 MD INGREDI 8-03 Anderso 00:00: n 00 CODEINE DRUG Active High Hives 2022-0 MD INGREDI 8-03 Anderso 00:00: n 00 CODEINE DRUG Active High Hives 2022-0 MD INGREDI 8-03 Anderso 00:00: n 00 CODEINE DRUG Active High Hives 2022-0 MD INGREDI 8-03 Anderso 00:00: n 00 CODEINE DRUG Active High Hives 2022-0 MD INGREDI 8-03 Anderso 00:00: n 00 CODEINE DRUG Active High Hives 2022-0 MD INGREDI 8-03 Anderso 00:00: n 00 CODEINE DRUG Active High Hives 2022-0 MD INGREDI 8-03 Anderso 00:00: n 00 CODEINE DRUG Active High Hives 2022-0 MD INGREDI 8-03 Anderso 00:00: n 00 CODEINE DRUG Active High Hives 2022-0 MD INGREDI 8-03 Anderso 00:00: n 00 CODEINE DRUG Active High Hives 2022-0 MD INGREDI 8-03 Anderso 00:00: n 00 CODEINE DRUG Active High Hives 2022-0 MD INGREDI 8-03 Anderso 00:00: n 00 CODEINE DRUG Active High Hives 2022-0 MD INGREDI 8-03 Anderso 00:00: n 00 CODEINE DRUG Active High Hives 2022-0 MD INGREDI 8-03 Anderso 00:00: n 00 CODEINE DRUG Active High Hives 2022-0 MD INGREDI 8-03 Anderso 00:00: n 00 CODEINE DRUG Active High Hives 2022-0 MD INGREDI 8-03 Anderso 00:00: n 00 CODEINE DRUG Active High Hives 2022-0 MD INGREDI 8-03 Anderso 00:00: n 00 CODEINE DRUG Active High Hives 2022-0 MD INGREDI 8-03 Anderso 00:00: n 00 CODEINE DRUG Active High Hives 2022-0 MD INGREDI 8-03 Anderso 00:00: n 00 CODEINE DRUG Active High Hives 2022-0 MD INGREDI 8-03 Anderso 00:00: n 00 CODEINE DRUG Active High Hives 2022-0 MD INGREDI 8-03 Anderso 00:00: n 00 CODEINE DRUG Active High Hives 2022-0 MD INGREDI 8-03 Anderso 00:00: n 00 CODEINE DRUG Active High Hives 2022-0 MD INGREDI 8-03 Anderso 00:00: n 00 CODEINE DRUG Active High Hives 2022-0 MD INGREDI 8-03 Anderso 00:00: n 00 CODEINE DRUG Active High Hives 2022-0 MD INGREDI 8-03 Anderso 00:00: n 00 CODEINE DRUG Active High Hives 2022-0 MD INGREDI 8-03 Anderso 00:00: n 00 CODEINE DRUG Active High Hives 2022-0 MD INGREDI 8-03 Anderso 00:00: n 00 CODEINE DRUG Active High Hives 2022-0 MD INGREDI 8-03 Anderso 00:00: n 00 CODEINE DRUG Active High Hives 2022-0 MD INGREDI 8-03 Anderso 00:00: n 00 CODEINE DRUG Active High Hives 2022-0 MD INGREDI 8-03 Anderso 00:00: n 00 CODEINE DRUG Active High Hives 2022-0 MD INGREDI 8-03 Anderso 00:00: n 00 CODEINE DRUG Active High Hives 2022-0 MD INGREDI 8-03 Anderso 00:00: n 00 CODEINE DRUG Active High Hives 2022-0 MD INGREDI 8-03 Anderso 00:00: n 00 CODEINE DRUG Active High Hives 2022-0 MD INGREDI 8-03 Anderso 00:00: n 00 CODEINE DRUG Active High Hives 2022-0 MD INGREDI 8-03 Anderso 00:00: n 00 CODEINE DRUG Active High Hives 2022-0 MD INGREDI 8-03 Anderso 00:00: n 00 CODEINE DRUG Active High Hives 2022-0 MD INGREDI 8-03 Anderso 00:00: n 00 CODEINE DRUG Active High Hives 2022-0 MD INGREDI 8-03 Anderso 00:00: n 00 CODEINE DRUG Active High Hives 2022-0 MD INGREDI 8-03 Anderso 00:00: n 00 CODEINE DRUG Active High Hives 2022-0 MD INGREDI 8-03 Anderso 00:00: n 00 CODEINE DRUG Active High Hives 2022-0 MD INGREDI 8-03 Anderso 00:00: n 00 CODEINE DRUG Active High Hives 2022-0 MD INGREDI 8-03 Anderso 00:00: n 00 CODEINE DRUG Active High Hives 2022-0 MD INGREDI 8-03 Anderso 00:00: n 00 CODEINE DRUG Active High Hives 2022-0 MD INGREDI 8-03 Anderso 00:00: n 00 CODEINE DRUG Active High Hives 2022-0 MD INGREDI 8-03 Anderso 00:00: n 00 CODEINE DRUG Active High Hives 2022-0 MD INGREDI 8-03 Anderso 00:00: n 00 CODEINE DRUG Active High Hives 2022-0 MD INGREDI 8-03 Anderso 00:00: n 00 CODEINE DRUG Active High Hives 2022-0 MD INGREDI 8-03 Anderso 00:00: n 00 CODEINE DRUG Active High Hives 2022-0 MD INGREDI 8-03 Anderso 00:00: n 00 CODEINE DRUG Active High Hives 2022-0 MD INGREDI 8-03 Anderso 00:00: n 00 CODEINE DRUG Active High Hives 2022-0 MD INGREDI 8-03 Anderso 00:00: n 00 CODEINE DRUG Active High Hives 2022-0 MD INGREDI 8-03 Anderso 00:00: n 00 CODEINE DRUG Active High Hives 2022-0 MD INGREDI 8-03 Anderso 00:00: n 00 CODEINE DRUG Active High Hives 2022-0 MD INGREDI 8-03 Anderso 00:00: n 00 CODEINE DRUG Active High Hives 2022-0 MD INGREDI 8-03 Anderso 00:00: n 00 CODEINE DRUG Active High Hives 2022-0 MD INGREDI 8-03 Anderso 00:00: n 00 codeine DA Active MO 2019-0 [facility] [place] codeine DA Active MO 2019-0 [facility] [place] codeine DA Active MO 2019-0 [facility] [place] codeine DA Active MO 2019-0 [facility] 4[facility] [place] codeine DA Active MO 2019-0 [facility] 2[facility] [place] codeine DA Active MO 2017-1 [facility] 2[facility] [place] codeine codeine Active Marycarmen Landon Family History Family Member Diagnosis Comments Start Date Stop Date Source Natural father Liver cancer [facility] MD Posey [facility] Social History Social Habit Start Date Stop Date Quantity Comments Source Sexual orientation Method ist [facility] Cigarettes smoked 2023-06-17 2023-06-17 Univers ity of current (pack per 00:00:00 00:00:00 Thien Posey ) - Reported Cancer Ce nter Cigarette 2023-06-17 2023-06-17 University of pack-years 00:00:00 00:00:00 Thien jolley [facility] Alcohol intake 2023-06-17 2023-06-17 Current drinker Unive rsity of 00:00:00 00:00:00 of alcohol Thien jolley (finding) [facility] History of Social 2023-06-17 2023-06-17 Univers ity of function 00:00:00 00:00:00 Thien jolley [facility] Tobacco Comment 2023-06-17 2023-06-17 0. Universit y of 00:00:00 00:00:00 Thien jolley [facility] Tobacco use and 2023-06-17 2023-06-17 Smokeless Universit y of exposure 00:00:00 00:00:00 tobacco non-user [facility] History of tobacco 2023-06-11 Cigarette Smoker University of use 00:00:00 [place] MD Yobany jolley [facility] Exposure to 2022-12-25 2023-01-04 Not sure University of SARS-CoV-2 (event) 00:00:00 08:04:00 [facility] Alcohol Comment 2022-11-08 2022-11-08 socially a glass Uni versity of 00:00:00 00:00:00 of wine twice a [facility] Sex Ass[birth year] At [birth year] [facility] 00:[facility]00 [facility] Smoking Status Start Date Stop Date Source Tobacco smoking [facility] consumption unknown Ex-smoker 2023-06-17 00:00:00 2023-06-17 University o f Thien CLEMONS 00:00:00 [facility] Occasional tobacco smoker 2022-03-22 00:00:00 Un iversity of [facility] Medications Ordered Filled Start Stop Current Ordering Indication Dosage Frequency Signature Comments Components Source Medication Medication Date Date Medication? Clinician (SIG) Name Name aspirin 81 2022-10 Yes myocardial 81mg Take 1 Univers mg EC 1-27 infarction tablet (81 it y of tablet 13:34: prevention mg) by Desean as 49 mouth daily. [facility] traMADol 2022-10 Yes 100mg Take 1 Univer s (ULTRAM-ER) 1-27 tablet ity of 100 mg 24 13:34: (100 mg[place] tablet 49 by mouth nightly as Anderso needed. n [facility] FOLIC ACID 2022-10 Yes 1{tbl} Take 1 Uni vers ORAL 1-27 tablet by ity of 13:34: mouth [place] 49 daily. MD Segundo burrell [facility] tiZANidine 2022-10 Yes 4mg Take 1 Unive rs (ZANAFLEX) 1-27 tablet (4 ity of 4 mg tablet 13:34: mg) by Vikki sykes 49 mouth at bedtime. Anderso For 30 n days [facility] tiZANidine 2022-10 Yes 4mg Take 1 Unive rs (ZANAFLEX) 1-27 tablet (4 ity of 4 mg tablet 13:34: mg) by Vikki sykes 49 mouth at bedtime. Anderso For 30 n days [facility] aspirin 81 2022-10 Yes myocardial 81mg Take 1 Univers mg EC 1-27 infarction tablet (81 it y of tablet 13:34: prevention mg) by [place]esean as 49 mouth daily. [facility] traMADol 2022-10 Yes 100mg Take 1 Univer s (ULTRAM-ER) 1-27 tablet ity of 100 mg 24 13:34: (100 mg[place] 49 by mouth nightly as Anderso needed. n [facility] FOLIC ACID 2022-10 Yes 1{tbl} Take 1 Uni vers ORAL 1-27 tablet by ity of 13:34: mouth [place] 49 daily. MD Segundo burrell [facility] promethazin 2022- No 50mg Take 1 Uni vers e 8-15 08-15 tablet (50 ity of (PHENERGAN) 14:48: 00:00 mg) by [place] as 50 mg 31 :00 mouth MD tablet every 6 Anderso (six) n hours as Cancer needed. [place] promethazin 2022- No 50mg Take 1 Uni vers e 8-15 08-15 tablet (50 ity of (PHENERGAN) 14:48: 00:00 mg) by [place] as 50 mg 31 :00 mouth MD tablet every 6 Anderso (six) n hours as Cancer needed. [place] tiZANidine 2022- No Intolerant 4mg Take 1 Univers (Zanaflex) 05-20 of cold tablet (4 ity of 4 mg tablet 00:00: 04:59 mg) by [place] as [facility]. Cancer [place] tiZANidine 2022- No Intolerant 4mg Take 1 Univers (Zanaflex) 05-20-15 of cold tablet (4 ity of 4 mg tablet 00:00: 04:59 mg) by [place] [facility] Cancer [place] NICORETTE 4 2022- No Tobacco 4mg Chew and Univers mg gum 8 10-[address] 1 ity of fresh mint 00:00: 00:00 syndrome Piece (4 [place] 00 :00 mg) by MD bernarda Raymond every 2 n (two) Cancer hours as Center needed for smoking cessation. NICORETTE 4 2022- No Tobacco 4mg Chew and Univers mg gum 8-[address] 1 ity of fresh mint 00:00: 00:00 syndrome Piece (4 [place] 00 :00 mg) by MD bernarda Raymond every 2 n (two) Cancer hours as Center needed for smoking cessation. promethazin Yes 12.5mg Take 1 Un kathy e 7-31 tablet ity of (PHENERGAN) 00:00: (12.5 mg) [place] 12.5 mg 00 by mouth tablet as needed. [facility] promethazin Yes 12.5mg Take 1 Un kathy e 7-31 tablet ity of (PHENERGAN) 00:00: (12.5 mg) [place] 12.5 mg 00 by mouth tablet as needed. [facility] biotin 2022- No Take by Univers 10,000 mcg 04-21-17 mouth ity of cap 14:11: 00:00 daily. [place] 00 :00 MD Raymond [facility] biotin 2022- No Take by Univers 10,000 mcg 7-21 04-17 mouth ity of cap 14:11: 00:00 daily. [place] 00 :00 [facility] 2022- No Tobacco Apply 1 Univers 21 mg/24 hr 04-21-15 dependence patch to ity of transdermal 00:00: 00:00 syndrome skin and [place] patch 00 :00 change MD patch Anderso daily as n directed Cancer for Center tobacco cessation (alternate sites). Nicoderm CQ 2022- No Tobacco Apply 1 Univers 21 mg/24 hr 04-21 08-15 dependence patch to ity of transdermal 00:00: 00:00 syndrome skin and [place] patch 00 :00 change MD patch Anderso daily as n directed Cancer for Center tobacco cessation (alternate sites). NICORETTE 4 2022- No Tobacco 4mg Chew and Univers mg gum 04-[address] 1 ity of fresh mint 00:00: 00:00 syndrome Piece (4 [place] 00 :00 mg) by MD menchaca Andersralf every 2 n (two) Cancer hours as Center needed for smoking cessation. NICORETTE 4 2022- No Tobacco 4mg Chew and Univers mg gum 04-[address] 1 ity of fresh mint 00:00: 00:00 syndrome Piece (4 [place] 00 :00 mg) by MD menchaca Andersralf every 2 n (two) Cancer hours as Center needed for smoking cessation. buPROPion 2022- No Tobacco Bottle #2: Univers (Wellbutrin 04-21 dependence Take 1 ity of XL) 300 mg 00:00: 00:00 syndrome tablet [place] 24 hr 00 :00 (300 mg) MD tablet by mouth Anderso every n morning Cancer after Center completing 150 mg. buPROPion 2022- No Tobacco Bottle #1: Univers (Wellbutrin 04-21 dependence Take 1 ity of XL) 150 mg 00:00: 00:00 syndrome tablet [place] 24 hr 00 :00 (150 mg) MD tablet by mouth Anderso every n morning Cancer for 7 Center days. buPROPion 2022- No Tobacco Bottle #2: Univers (Wellbutrin 04-21 dependence Take 1 ity of XL) 300 mg 00:00: 00:00 syndrome tablet [place] 24 hr 00 :00 (300 mg) MD tablet by mouth Anderso every n morning Cancer after Center completing 150 mg. buPROPion 2022- No Tobacco Bottle #1: Univers (Wellbutrin 7-17 07-17 dependence Take 1 ity of XL) 150 mg 00:00: 00:00 syndrome tablet [place] 24 hr 00 :00 (150 mg) MD tablet by mouth Anderso every n morning Cancer for 7 Center days. [facility] 2022- No attention-d 50mg Take 50 mg Univers amine 03-18 eficit by mouth ity of (VYVANSE) 13:18: 00:00 hyperactivi every [place] 40 mg 41 :00 ty disorder morning. capsule [facility]- No attention-d 50mg Take 50 mg Univers amine 03-18 eficit by mouth ity of (VYVANSE) 13:18: 00:00 hyperactivi every [place] 40 mg 41 :00 ty disorder morning. capsule [facility] 60 Yes 60mg Take 1 Unive rs mg capsule 6-01 capsule ity of 00:00: (60 mg) by [place] 00 mouth [facility] Vyvanse 60 Yes 60mg Take 1 Unive rs mg capsule 6-01 capsule ity of 00:00: (60 mg) by [place] [id number] mouth [facility] ergocalcife 2022- No Vitamin D 94900W Take 1 Univers rol 5-11 08-10 deficiency, capsule ity of (DRISDOL) 00:00: 04:59 not (50,000 [place] 50,000 00 :00 otherwise Units) by MD units specified mouth Anderso capsule every 7 n days for Cancer 90 days. [place] ergocalcife 2022- No Vitamin D 20377H Take 1 Univers rol 5-11 08-10 deficiency, capsule ity of (DRISDOL) 00:00: 04:59 not (50,000 [place] 50,000 00 :00 otherwise Units) by MD units specified mouth Anderso capsule every 7 n days for Cancer 90 days. [place] predniSONE 2022- No Multiple 10mg Take 2 Univers (DELTASONE) 4-24 05-09 joint pain tablets ity of 5 mg tablet 00:00: 04:59 (10 mg) by [place] 00 :00 mouth MD daily for Anderso 14 days. n [facility] predniSONE 2022- No Multiple 10mg Take 2 Univers (DELTASONE) 4-24 05-09 joint pain tablets ity of 5 mg tablet 00:00: 04:59 (10 mg) by [place] 00 :00 mouth MD daily for Anderso 14 days. n Cancer [place] methylpheni 2022- No attention-d 5mg Take 1 Univers date HCl 411 eficit tablet (5 ity of (RITALIN) 5 11:04: 00:00 hyperactivi mg) by [place] mg tablet 39 :00 ty disorder mouth MD daily as Anderso needed. n [facility] methylpheni 2022- No attention-d 5mg Take 1 Univers date HCl 4-11 11 eficit tablet (5 ity of (RITALIN) 5 11:04: 00:00 hyperactivi mg) by [place] mg tablet 39 :00 ty disorder mouth MD daily as Anderso needed. n Cancer [place] fluticasone Yes as needed. Univers propionate 3-17 ity of (FLONASE) 00:00: [place] 50 00 MD mcg/spray Anderso nasal spray n Cancer Center fluticasone Yes as needed. Univers propionate 3-17 ity of (FLONASE) 00:00: [place] 50 00 MD mcg/spray Anderso nasal spray n Cancer Center aspirin 81 Yes myocardial 81mg Take 1 Univers mg EC 2-24 infarction tablet (81 it y of tablet 14:09: prevention mg) by Desean as 50 mouth 3 MD (three) Anderso times a n day. Cancer Center methylpheni Yes attention-d 5mg Take 1 Univers date HCl 2-24 eficit tablet (5 ity of (RITALIN) 5 14:09: hyperactivi mg) by [place] mg tablet 50 ty disorder mouth MD daily as Anderso needed. n Cancer [place] promethazin Yes 50mg Take 1 Univ ers e 2-24 tablet (50 ity of (PHENERGAN) 14:09: mg) by Vikki sykes 50 mg 50 mouth MD tablet every 6 Anderso (six) n hours as Cancer needed. Center traMADol Yes 100mg Take 1 Univer s (ULTRAM-ER) 2-24 tablet ity of 100 mg 24 14:09: (100 mg) [place] hr tablet 50 by mouth nightly as Anderso needed. [facility] lisdexamfet Yes attention-d 40mg Take 1 Univers amine 2-24 eficit capsule ity of (VYVANSE) 14:09: hyperactivi (40 mg) by Thien 40 mg 50 ty disorder mouth MD capsule every Anderso morning. [facility] polyethylen Yes Colonoscopy Mix as Univers e 11-04 planned directed ity of glycol-elec 00:00: and drink [place] trolytes 00 as (GARETH) directed. Gera rso 420 g solution [facility] polyethylen 2022- No Colonoscopy Mix as Univers e 11-04 planned directed ity of glycol-elec 00:00: 00:00 and drink [place] trolytes 00 :00 as MD BRADLEY) directed. Gera rso 420 g solution [facility] polyethylen 2022- No Colonoscopy Mix as Univers e 11-04 planned directed ity of glycol-elec 00:00: 00:00 and drink [place] trolytes 00 :00 as MD BRADLEY) directed. Gera rso 420 g [facility] acetaminoph Yes 325mg Take 1 Uni vers en 8-22 tablet ity of (TYLENOL) 00:00: (325 mg) [place] 325 mg 00 by [facility] Yes every 30 Un kathy min 8-22 (thirty) ity of (VITAMIN 00:00: days. [place] B-12) 1,000 00 MD mcg/mL Anderso injection [facility] cholecalcif Yes 1000U Take 1 Uni vers chula, 8-22 tablet ity of vitamin D3, 00:00: (1,000 [place] 25 mcg 00 Units) by MD (1,000 mouth once Anderso unit) a week. n tablet [facility] acetaminoph Yes 325mg Take 1 Uni vers en 8-22 tablet ity of (TYLENOL) 00:00: (325 mg) [place] 325 mg 00 by mouth tablet as needed. Anderso [facility] cyanocobala Yes every 30 Un kathy min 8-22 (thirty) ity of (VITAMIN 00:00: days. [place] B-12) 1,000 00 MD mcg/mL Anderso injection n [facility] Center cholecalcif Yes 1000U Take 1 Uni vers chula, 8-22 tablet ity of vitamin D3, 00:00: (1,000 [place] 25 mcg 00 Units) by MD (1,000 mouth Anderso unit) daily. n tablet [facility] cholecalcif Yes 1000U Take 1 Uni vers chula, 8-22 tablet ity of vitamin D3, 00:00: (1,000 [place] 25 mcg 00 Units) by MD (1,000 mouth once Anderso unit) a week. n tablet Cancer [place] ferrous Yes Iron 325mg Take 1 Univers sulfate 325 8-03 deficiency tablet ity of (65 FE) MG 00:00: anemia (325 mg) [place] EC tablet 00 by mouth 2 MD (two) Anderso times a n day with Cancer meals. [place] ferrous 2022- No Iron 325mg Take 1 Univer s sulfate 325 8- 08-15 deficiency tablet ity of (65 FE) MG 00:00: 00:00 anemia (325 mg) [place] EC tablet 00 :00 by mouth 2 MD (two) Anderso times a n day with Cancer meals. [place] ferrous 2022- No Iron 325mg Take 1 Univer s sulfate 325 8-03 08-15 deficiency tablet ity of (65 FE) MG 00:00: 00:00 anemia (325 mg) [place] EC tablet 00 :00 by mouth 2 MD (two) Anderso times a n day with Cancer meals. [place] ferrous 2021- No Iron 325mg Take 1 Univer s sulfate 325 8-03 08-03 deficiency tablet ity of (65 FE) MG 00:00: 00:00 anemia (325 mg) [place] EC tablet 00 :00 by mouth 3 MD (three) Anderso times a n day with Cancer meals. [place] ferrous 2021- No Anemia Take 1 Unive rs gluconate 6-18 07-19 tablet (38 ity of (FERGON) 00:00: 04:59 mg of [place] 324 mg (38 00 :00 iron) by MD mg mouth Anderso elemental daily with n iron per breakfast Cancer tablet) for 30 Center tablet days. [facility] 2020-10 Yes 1{capsu Take 1 Uni vers 125-1-40-3 1-15 le} capsule by ity of mg cap 00:00: mouth [place] 00 twice MD daily. [facility] 2020-10 Yes 1{capsu Take 1 Uni vers 125-1-40-3 1-15 le} capsule by ity of mg cap 00:00: mouth [place] 00 every MD other day. [facility] 2020-10 Yes 1{capsu Take 1 Uni vers 125-1-40-3 1-15 le} capsule by ity of mg cap 00:00: mouth [place] 00 every MD other day. [facility] Lortab 500 Yes Christiano 15 ml, PO, Memoria mg-7.5 3-09 Gabriele Q4H, PRN, l mg/15 mL 17:21: 200 mL, Abhijit n oral elixir 30 for pain, Substituti on Allowed, Maintenanc e, ELIX Lortab 500 Yes [place] 15 ml, PO, Memoria mg-7.5 3-09 Gabriele Q4H, PRN, l mg/15 mL 17:21: 200 mL, Abhijit n oral elixir 30 for pain, Substituti on Allowed, Maintenanc e, ELIX Lortab 500 Yes Christiano 15 ml, PO, Memoria mg-7.5 3-09 Gabriele Q4H, PRN, l mg/15 mL 17:21: 200 mL, Abhijit n oral elixir 30 for pain, Substituti on Allowed, Maintenanc e, ELIX Lortab 500 Yes Christiano 15 ml, PO, Memoria mg-7.5 3-09 Gabriele Q4H, PRN, l mg/15 mL 17:21: 200 mL, Abhijit n oral elixir 30 for pain, Substituti on Allowed, Maintenanc e, ELIX Lortab 500 Yes Christiano 15 ml, PO, Memoria mg-7.5 3-09 Gabriele Q4H, PRN, l mg/15 mL 17:21: 200 mL, Abhijit n oral elixir 30 for pain, Substituti on Allowed, Maintenanc e, ELIX Lortab 500 Yes Christiano 15 ml, PO, Memoria mg-7.5 3-09 Gabriele Q4H, PRN, l mg/15 mL 17:21: 200 mL, Abhijit n oral elixir 30 for pain, Substituti on Allowed, Maintenanc e, ELIX Lortab 500 Yes Christiano 15 ml, PO, Memoria mg-7.5 3-09 Gabriele Q4H, PRN, l mg/15 mL 17:21: 200 mL, Abhijit n oral elixir 30 for pain, Substituti on Allowed, Maintenanc e, ELIX Lortab 500 Yes Christiano 15 ml, PO, Memoria mg-7.5 3-09 Gabriele Q4H, PRN, l mg/15 mL 17:21: 200 mL, Abhijit n oral elixir 30 for pain, Substituti on Allowed, Maintenanc e, ELIX Lortab 500 Yes Christiano 15 ml, PO, Memoria mg-7.5 3-09 Gabriele Q4H, PRN, l mg/15 mL 17:21: 200 mL, Abhijit n oral elixir 30 for pain, Substituti on Allowed, Maintenanc e, ELIX Lortab 500 Yes Christiano 15 ml, PO, Memoria mg-7.5 3-09 Gabriele Q4H, PRN, l mg/15 mL 17:21: 200 mL, Abhijit n oral elixir 30 for pain, Substituti on Allowed, Maintenanc e, ELIX Lortab 500 Yes Christiano 15 ml, PO, Memoria mg-7.5 3-09 Gabriele Q4H, PRN, l mg/15 mL 17:21: 200 mL, Abhijit n oral elixir 30 for pain, Substituti on Allowed, Maintenanc e, ELIX Lortab 500 Yes Christiano 15 ml, PO, Memoria mg-7.5 3-09 Gabriele Q4H, PRN, l mg/15 mL 17:21: 200 mL, Abhijit n oral elixir 30 for pain, Substituti on Allowed, Maintenanc e, ELIX Lortab 500 Yes Christiano 15 ml, PO, Memoria mg-7.5 3-09 Gabriele Q4H, PRN, l mg/15 mL 17:21: 200 mL, Abhijit n oral elixir 30 for pain, Substituti on Allowed, Maintenanc e, ELIX Lortab 500 Yes Christiano 15 ml, PO, Memoria mg-7.5 3-09 Gabriele Q4H, PRN, l mg/15 mL 17:21: 200 mL, Abhijit n oral elixir 30 for pain, Substituti on Allowed, Maintenanc e, ELIX Lortab 500 Yes Christiano 15 ml, PO, Memoria mg-7.5 3-09 Gabriele Q4H, PRN, l mg/15 mL 17:21: 200 mL, Abhijit n oral elixir 30 for pain, Substituti on Allowed, Maintenanc e, ELIX Lortab 500 Yes Christiano 15 ml, PO, Memoria mg-7.5 3-09 Gabriele Q4H, PRN, l mg/15 mL 17:21: 200 mL, Abhijit n oral elixir 30 for pain, Substituti on Allowed, Maintenanc e, ELIX Lortab 500 Yes Christiano 15 ml, PO, Memoria mg-7.5 3-09 Gabriele Q4H, PRN, l mg/15 mL 17:21: 200 mL, Abhijit n oral elixir 30 for pain, Substituti on Allowed, Maintenanc e, ELIX Lortab 500 Yes Christiano 15 ml, PO, Memoria mg-7.5 3-09 Gabriele Q4H, PRN, l mg/15 mL 17:21: 200 mL, Abhijit n oral elixir 30 for pain, Substituti on Allowed, Maintenanc e, ELIX Lortab 500 Yes Christaino 15 ml, PO, Memoria mg-7.5 3-09 Gabriele Q4H, PRN, l mg/15 mL 17:21: 200 mL, Abhijit n oral elixir 30 for pain, Substituti on Allowed, Maintenanc e, ELIX Lortab 500 Yes Christiano 15 ml, PO, Memoria mg-7.5 3-09 Gabriele Q4H, PRN, l mg/15 mL 17:21: 200 mL, Abhijit n oral elixir 30 for pain, Substituti on Allowed, Maintenanc e, ELIX Lortab 500 Yes Christiano 15 ml, PO, Memoria mg-7.5 3-09 Gabriele Q4H, PRN, l mg/15 mL 17:21: 200 mL, Abhijit n oral elixir 30 for pain, Substituti on Allowed, Maintenanc e, ELIX Lortab 500 Yes Christiano 15 ml, PO, Memoria mg-7.5 3-09 Gabriele Q4H, PRN, l mg/15 mL 17:21: 200 mL, Abhijit n oral elixir 30 for pain, Substituti on Allowed, Maintenanc e, ELIX Lortab 500 Yes Christiano 15 ml, PO, Memoria mg-7.5 3-09 Gabriele Q4H, PRN, l mg/15 mL 17:21: 200 mL, Abhijit n oral elixir 30 for pain, Substituti on Allowed, Maintenanc e, ELIX Lortab 500 Yes Christiano 15 ml, PO, Memoria mg-7.5 3-09 Gabriele Q4H, PRN, l mg/15 mL 17:21: 200 mL, Abhijit n oral elixir 30 for pain, Substituti on Allowed, Maintenanc e, ELIX Lortab 500 Yes Christiano 15 ml, PO, Memoria mg-7.5 3-09 Gabriele Q4H, PRN, l mg/15 mL 17:21: 200 mL, Abhijit n oral elixir 30 for pain, Substituti on Allowed, Maintenanc e, ELIX Lortab 500 Yes Christiano 15 ml, PO, Memoria mg-7.5 3-09 Gabreile Q4H, PRN, l mg/15 mL 17:21: 200 mL, Abhijit n oral elixir 30 for pain, Substituti on Allowed, Maintenanc e, ELIX Lortab 500 Yes Christiano 15 ml, PO, Memoria mg-7.5 3-09 Gabriele Q4H, PRN, l mg/15 mL 17:21: 200 mL, Abhijit n oral elixir 30 for pain, Substituti on Allowed, Maintenanc e, ELIX Lortab 500 2012- Yes Christiano 15 ml, PO, Memoria mg-7.5 3-09 Gabriele Q4H, PRN, l mg/15 mL 17:21: 200 mL, Abhijit n oral elixir 30 for pain, Substituti on Allowed, Maintenanc e, ELIX Lortab 500 2012- Yes Christiano 15 ml, PO, Memoria mg-7.5 3-09 Gabriele Q4H, PRN, l mg/15 mL 17:21: 200 mL, Abhijit n oral elixir 30 for pain, Substituti on Allowed, Maintenanc e, ELIX Lortab 500 Yes Christiano 15 ml, PO, Memoria mg-7.5 3-09 Gabriele Q4H, PRN, l mg/15 mL 17:21: 200 mL, Abhijit n oral elixir 30 for pain, Substituti on Allowed, Maintenanc e, ELIX Lortab 500 2012- Yes Christiano 15 ml, PO, Memoria mg-7.5 3-09 Gabriele Q4H, PRN, l mg/15 mL 17:21: 200 mL, Abhijit n oral elixir 30 for pain, Substituti on Allowed, Maintenanc e, ELIX Lortab 500 2012- Yes Christiano 15 ml, PO, Memoria mg-7.5 3-09 Gabriele Q4H, PRN, l mg/15 mL 17:21: 200 mL, Abhijit n oral elixir 30 for pain, Substituti on Allowed, Maintenanc e, ELIX Lortab 500 2012- Yes Christiano 15 ml, PO, Memoria mg-7.5 3-09 Gabriele Q4H, PRN, l mg/15 mL 17:21: 200 mL, Abhijit n oral elixir 30 for pain, Substituti on Allowed, Maintenanc e, ELIX Lortab 500 Yes Christiano 15 ml, PO, Memoria mg-7.5 3-09 Gabriele Q4H, PRN, l mg/15 mL 17:21: 200 mL, Abhijit n oral elixir 30 for pain, Substituti on Allowed, Maintenanc e, ELIX Lortab 500 Yes Christiano 15 ml, PO, Memoria mg-7.5 3-09 Gabriele Q4H, PRN, l mg/15 mL 17:21: 200 mL, Abhijit n oral elixir 30 for pain, Substituti on Allowed, Maintenanc e, ELIX Lortab 500 Yes Christiano 15 ml, PO, Memoria mg-7.5 3-09 Gabriele Q4H, PRN, l mg/15 mL 17:21: 200 mL, Abhijit n oral elixir 30 for pain, Substituti on Allowed, Maintenanc e, ELIX Lortab 500 Yes Christiano 15 ml, PO, Memoria mg-7.5 3-09 Gabriele Q4H, PRN, l mg/15 mL 17:21: 200 mL, Abhijit n oral elixir 30 for pain, Substituti on Allowed, Maintenanc e, ELIX Lortab 500 Yes Christiano 15 ml, PO, Memoria mg-7.5 3-09 Gabriele Q4H, PRN, l mg/15 mL 17:21: 200 mL, Abhijit n oral elixir 30 for pain, Substituti on Allowed, Maintenanc e, ELIX Lortab 500 Yes Christiano 15 ml, PO, Memoria mg-7.5 3-09 Gabriele Q4H, PRN, l mg/15 mL 17:21: 200 mL, Abhijit n oral elixir 30 for pain, Substituti on Allowed, Maintenanc e, ELIX Lortab 500 Yes Christiano 15 ml, PO, Memoria mg-7.5 3-09 Gabriele Q4H, PRN, l mg/15 mL 17:21: 200 mL, Abhijit n oral elixir 30 for pain, Substituti on Allowed, Maintenanc e, ELIX Lortab 500 Yes Christiano 15 ml, PO, Memoria mg-7.5 3-09 Gabriele Q4H, PRN, l mg/15 mL 17:21: 200 mL, Abhijit n oral elixir 30 for pain, Substituti on Allowed, Maintenanc e, ELIX Lortab 500 Yes Christiano 15 ml, PO, Memoria mg-7.5 3-09 Gabriele Q4H, PRN, l mg/15 mL 17:21: 200 mL, Abhijit n oral elixir 30 for pain, Substituti on Allowed, Maintenanc e, ELIX Lortab 500 Yes Christiano 15 ml, PO, Memoria mg-7.5 3-09 Gabriele Q4H, PRN, l mg/15 mL 17:21: 200 mL, Abhijit n oral elixir 30 for pain, Substituti on Allowed, Maintenanc e, ELIX Lortab 500 Yes Christiano 15 ml, PO, Memoria mg-7.5 3-09 Gabriele Q4H, PRN, l mg/15 mL 17:21: 200 mL, Abhijit n oral elixir 30 for pain, Substituti on Allowed, Maintenanc e, ELIX Lortab 500 Yes Christiano 15 ml, PO, Memoria mg-7.5 3-09 Gabriele Q4H, PRN, l mg/15 mL 17:21: 200 mL, Abhijit n oral elixir 30 for pain, Substituti on Allowed, Maintenanc e, ELIX Lortab 500 Yes Christiano 15 ml, PO, Memoria mg-7.5 3-09 Gabriele Q4H, PRN, l mg/15 mL 17:21: 200 mL, Abhijit n oral elixir 30 for pain, Substituti on Allowed, Maintenanc e, ELIX Lortab 500 Yes Christiano 15 ml, PO, Memoria mg-7.5 3-09 Gabriele Q4H, PRN, l mg/15 mL 17:21: 200 mL, Abhijit n oral elixir 30 for pain, Substituti on Allowed, Maintenanc e, ELIX Lortab 500 Yes Christiano 15 ml, PO, Memoria mg-7.5 3-09 Gabriele Q4H, PRN, l mg/15 mL 17:21: 200 mL, Abhijit n oral elixir 30 for pain, Substituti on Allowed, Maintenanc e, ELIX Lortab 500 Yes Christiano 15 ml, PO, Memoria mg-7.5 3-09 Gabriele Q4H, PRN, l mg/15 mL 17:21: 200 mL, Abhijit n oral elixir 30 for pain, Substituti on Allowed, Maintenanc e, ELIX Lortab 500 2012-0 Yes Christiano 15 ml, PO, Memoria mg-7.5 3-09 Gabriele Q4H, PRN, l mg/15 mL 17:21: 200 mL, Abhijit n oral elixir 30 for pain, Substituti on Allowed, Maintenanc e, ELIX Lortab 500 2012- Yes Christiano 15 ml, PO, Memoria mg-7.5 3-09 Gabriele Q4H, PRN, l mg/15 mL 17:21: 200 mL, Abhijit n oral elixir 30 for pain, Substituti on Allowed, Maintenanc e, ELIX Lortab 500 Yes Christiano 15 ml, PO, Memoria mg-7.5 3-09 Gabriele Q4H, PRN, l mg/15 mL 17:21: 200 mL, Abhijit n oral elixir 30 for pain, Substituti on Allowed, Maintenanc e, ELIX Lortab 500 2012- Yes Christiano 15 ml, PO, Memoria mg-7.5 3-09 Gabriele Q4H, PRN, l mg/15 mL 17:21: 200 mL, Abhijit n oral elixir 30 for pain, Substituti on Allowed, Maintenanc e, ELIX Lortab 500 2012- Yes Christiano 15 ml, PO, Memoria mg-7.5 3-09 Gabriele Q4H, PRN, l mg/15 mL 17:21: 200 mL, Abhijit n oral elixir 30 for pain, Substituti on Allowed, Maintenanc e, ELIX Lortab 500 2012- Yes Christiano 15 ml, PO, Memoria mg-7.5 3-09 Gabriele Q4H, PRN, l mg/15 mL 17:21: 200 mL, Abhijit n oral elixir 30 for pain, Substituti on Allowed, Maintenanc e, ELIX Lortab 500 Yes Christiano 15 ml, PO, Memoria mg-7.5 3-09 Gabriele Q4H, PRN, l mg/15 mL 17:21: 200 mL, Abhijit n oral elixir 30 for pain, Substituti on Allowed, Maintenanc e, ELIX Lortab 500 2012- Yes Christiano 15 ml, PO, Memoria mg-7.5 309 Gabriele Q4H, PRN, l mg/15 mL 17:21: 200 mL, Abhijit n oral elixir 30 for pain, Substituti on Allowed, Maintenanc e, ELIX Lovenox No Garth P 40 mg, 0.4 M emoria 3-08 Gabriele mL, Route: l 16:00: SUB-Q, Dipesh 00 Drug form: INJ, [id number], Start date: 12/11/12 10:00:00, Duration: 30 day, Stop date: 01/09/13 22:00:00 Lovenox 2012-0 No Garth P 40 mg, 0.4 M emoria 3-08 Gabriele mL, Route: l 16:00: SUB-Q, Dipesh Drug form: INJ, [id number], Start date: 12/11/12 10:00:00, Duration: 30 day, Stop date: 01/09/13 22:00:00 Lovenox 2012-0 No Garth P 40 mg, 0.4 M emoria 3-08 Gabriele mL, Route: l 16:00: SUB-Q, Lolo Drug form: INJ, [id number], Start date: 12/11/12 10:00:00, Duration: 30 day, Stop date: 01/09/13 22:00:00 Lovenox 2012-0 No Garth P 40 mg, 0.4 M emoria 3-08 Gabriele mL, Route: l 16:00: SUB-Q, Dipesh Drug form: INJ, [id number], Start date: 12/11/12 10:00:00, Duration: 30 day, Stop date: 01/09/13 22:00:00 Lovenox 2012-0 No Garth P 40 mg, 0.4 M emoria 3-08 Gabriele mL, Route: l 16:00: SUB-Q, Lolo Drug form: INJ, [id number], Start date: 12/11/12 10:00:00, Duration: 30 day, Stop date: 01/09/13 22:00:00 Lovenox 2013-0 No Garth P 40 mg, 0.4 M emoria 3-08 Gabriele mL, Route: l 16:00: SUB-Q, Dipesh 00 Drug form: INJ, [id number], Start date: 12/11/12 10:00:00, Duration: 30 day, Stop date: 01/09/13 22:00:00 Lovenox 2013-0 No Garth P 40 mg, 0.4 M emoria 3-08 Gabriele mL, Route: l 16:00: SUB-Q, Dipesh Drug form: INJ, [id number], Start date: 12/11/12 10:00:00, Duration: 30 day, Stop date: 01/09/13 22:00:00 Lovenox 2013-0 No Garth P 40 mg, 0.4 M emoria 3-08 Gabriele mL, Route: l 16:00: SUB-Q, Lolo Drug form: INJ, [id number], Start date: 12/11/12 10:00:00, Duration: 30 day, Stop date: 01/09/13 22:00:00 Lovenox 2012-0 No Garth P 40 mg, 0.4 M emoria 3-08 Gabriele mL, Route: l 16:00: SUB-Q, Lolo Drug form: INJ, [id number], Start date: 12/11/12 10:00:00, Duration: 30 day, Stop date: 01/09/13 22:00:00 Lovenox 2013-0 No Garth P 40 mg, 0.4 M emoria 3-08 Gabriele mL, Route: l 16:00: SUB-Q, Dipesh 00 Drug form: INJ, [id number], Start date: 12/11/12 10:00:00, Duration: 30 day, Stop date: 01/09/13 22:00:00 Lovenox 2013-0 No Garth P 40 mg, 0.4 M emoria 3-08 Gabriele mL, Route: l 16:00: SUB-Q, Lolo 00 Drug form: INJ, [id number], Start date: 12/11/12 10:00:00, Duration: 30 day, Stop date: 01/09/13 22:00:00 Lovenox 2013-0 No Garth P 40 mg, 0.4 M emoria 3-08 Gabriele mL, Route: l 16:00: SUB-Q, Dipesh 00 Drug form: INJ, [id number], Start date: 12/11/12 10:00:00, Duration: 30 day, Stop date: 01/09/13 22:00:00 Lovenox 2013-0 No Garth P 40 mg, 0.4 M emoria 3-08 Gabriele mL, Route: l 16:00: SUB-Q, Lolo Drug form: INJ, [id number], Start date: 12/11/12 10:00:00, Duration: 30 day, Stop date: 01/09/13 22:00:00 Lovenox 2013-0 No Garth P 40 mg, 0.4 M emoria 3-08 Gabriele mL, Route: l 16:00: SUB-Q, Lolo Drug form: INJ, [id number], Start date: 12/11/12 10:00:00, Duration: 30 day, Stop date: 01/09/13 22:00:00 Lovenox 2012-0 No Garth P 40 mg, 0.4 M emoria 3-08 Gabriele mL, Route: l 16:00: SUB-Q, Lolo Drug form: INJ, [id number], Start date: 12/11/12 10:00:00, Duration: 30 day, Stop date: 01/09/13 22:00:00 Lovenox 2013-0 No Garth P 40 mg, 0.4 M emoria 3-08 Gabriele mL, Route: l 16:00: SUB-Q, Dipesh 00 Drug form: INJ, [id number], Start date: 12/11/12 10:00:00, Duration: 30 day, Stop date: 01/09/13 22:00:00 Lovenox 2013-0 No Garth P 40 mg, 0.4 M emoria 3-08 Gabriele mL, Route: l 16:00: SUB-Q, Lolo 00 Drug form: INJ, [id number], Start date: 12/11/12 10:00:00, Duration: 30 day, Stop date: 01/09/13 22:00:00 Lovenox 2013-0 No Garth P 40 mg, 0.4 M emoria 3-08 Gabriele mL, Route: l 16:00: SUB-Q, Dipesh Drug form: INJ, [id number], Start date: 12/11/12 10:00:00, Duration: 30 day, Stop date: 01/09/13 22:00:00 Lovenox 2013-0 No Garth P 40 mg, 0.4 M emoria 3-08 Gabriele mL, Route: l 16:00: SUB-Q, Dipesh Drug form: INJ, [id number], Start date: 12/11/12 10:00:00, Duration: 30 day, Stop date: 01/09/13 22:00:00 Lovenox 2013-0 No Garth P 40 mg, 0.4 M emoria 3-08 Gabriele mL, Route: l 16:00: SUB-Q, Dipesh Drug form: INJ, [id number], Start date: 12/11/12 10:00:00, Duration: 30 day, Stop date: 01/09/13 22:00:00 Lovenox 2013-0 No Garth P 40 mg, 0.4 M emoria 3-08 Gabriele mL, Route: l 16:00: SUB-Q, Dipesh Drug form: INJ, [id number], Start date: 12/11/12 10:00:00, Duration: 30 day, Stop date: 01/09/13 22:00:00 Lovenox 2013-0 No Garth P 40 mg, 0.4 M emoria 3-08 Gabriele mL, Route: l 16:00: SUB-Q, Lolo Drug form: INJ, [id number], Start date: 12/11/12 10:00:00, Duration: 30 day, Stop date: 01/09/13 22:00:00 Lovenox 2013-0 No Garth P 40 mg, 0.4 M emoria 3-08 Gabriele mL, Route: l 16:00: SUB-Q, Lolo Drug form: INJ, [id number], Start date: 12/11/12 10:00:00, Duration: 30 day, Stop date: 01/09/13 22:00:00 Lovenox 2013-0 No Garth P 40 mg, 0.4 M emoria 3-08 Gabriele mL, Route: l 16:00: SUB-Q, Dipesh Drug form: INJ, [id number], Start date: 12/11/12 10:00:00, Duration: 30 day, Stop date: 01/09/13 22:00:00 Lovenox 2013-0 No Garth P 40 mg, 0.4 M emoria 3-08 Gabriele mL, Route: l 16:00: SUB-Q, Lolo Drug form: INJ, [id number], Start date: 12/11/12 10:00:00, Duration: 30 day, Stop date: 01/09/13 22:00:00 Lovenox 2013-0 No Garth P 40 mg, 0.4 M emoria 3-08 Gabriele mL, Route: l 16:00: SUB-Q, Lolo Drug form: INJ, [id number], Start date: 12/11/12 10:00:00, Duration: 30 day, Stop date: 01/09/13 22:00:00 Lovenox 2012-0 No Garth P 40 mg, 0.4 M emoria 3-08 Gabriele mL, Route: l 16:00: SUB-Q, Lolo Drug form: INJ, [id number], Start date: 12/11/12 10:00:00, Duration: 30 day, Stop date: 01/09/13 22:00:00 Lovenox 2013-0 No Garth P 40 mg, 0.4 M emoria 3-08 Gabriele mL, Route: l 16:00: SUB-Q, Dipesh Drug form: INJ, [id number], Start date: 12/11/12 10:00:00, Duration: 30 day, Stop date: 01/09/13 22:00:00 Lovenox 2013-0 No Garth P 40 mg, 0.4 M emoria 3-08 Gabriele mL, Route: l 16:00: SUB-Q, Dipesh Drug form: INJ, [id number], Start date: 12/11/12 10:00:00, Duration: 30 day, Stop date: 01/09/13 22:00:00 Lovenox 2013-0 No Garth P 40 mg, 0.4 M emoria 3-08 Gabriele mL, Route: l 16:00: SUB-Q, Dipesh Drug form: INJ, [id number], Start date: 12/11/12 10:00:00, Duration: 30 day, Stop date: 01/09/13 22:00:00 Lovenox 2012-0 No Garth P 40 mg, 0.4 M emoria 3-08 Gabriele mL, Route: l 16:00: SUB-Q, Dipesh Drug form: INJ, [id number], Start date: 12/11/12 10:00:00, Duration: 30 day, Stop date: 01/09/13 22:00:00 Lovenox 2013-0 No Garth P 40 mg, 0.4 M emoria 3-08 Gabriele mL, Route: l 16:00: SUB-Q, Lolo Drug form: INJ, [id number], Start date: 12/11/12 10:00:00, Duration: 30 day, Stop date: 01/09/13 22:00:00 Lovenox 2012-0 No Garth P 40 mg, 0.4 M emoria 3-08 Gabriele mL, Route: l 16:00: SUB-Q, Dipesh Drug form: INJ, [id number], Start date: 12/11/12 10:00:00, Duration: 30 day, Stop date: 01/09/13 22:00:00 Lovenox 2012-0 No Garth P 40 mg, 0.4 M emoria 3-08 Gabriele mL, Route: l 16:00: SUB-Q, Dipesh Drug form: INJ, [id number], Start date: 12/11/12 10:00:00, Duration: 30 day, Stop date: 01/09/13 22:00:00 Lovenox 2013-0 No Garth P 40 mg, 0.4 M emoria 3-08 Gabriele mL, Route: l 16:00: SUB-Q, Dipesh Drug form: INJ, [id number], Start date: 12/11/12 10:00:00, Duration: 30 day, Stop date: 01/09/13 22:00:00 Lovenox 2013-0 No Garth P 40 mg, 0.4 M emoria 3-08 Gabriele mL, Route: l 16:00: SUB-Q, Lolo Drug form: INJ, [id number], Start date: 12/11/12 10:00:00, Duration: 30 day, Stop date: 01/09/13 22:00:00 Lovenox 2013-0 No Garth P 40 mg, 0.4 M emoria 3-08 Gabriele mL, Route: l 16:00: SUB-Q, Dipesh Drug form: INJ, [id number], Start date: 12/11/12 10:00:00, Duration: 30 day, Stop date: 01/09/13 22:00:00 Lovenox 2013-0 No Garth P 40 mg, 0.4 M emoria 3-08 Gabriele mL, Route: l 16:00: SUB-Q, Lolo 00 Drug form: INJ, [id number], Start date: 12/11/12 10:00:00, Duration: 30 day, Stop date: 01/09/13 22:00:00 Lovenox 2012-0 No Garth P 40 mg, 0.4 M emoria 3-08 Gabriele mL, Route: l 16:00: SUB-Q, Lolo 00 Drug form: INJ, [id number], Start date: 12/11/12 10:00:00, Duration: 30 day, Stop date: 01/09/13 22:00:00 Lovenox 2012-0 No Garth P 40 mg, 0.4 M emoria 3-08 Gabriele mL, Route: l 16:00: SUB-Q, Dipesh Drug form: INJ, [id number], Start date: 12/11/12 10:00:00, Duration: 30 day, Stop date: 01/09/13 22:00:00 Lovenox 2013-0 No Garth P 40 mg, 0.4 M emoria 3-08 Gabriele mL, Route: l 16:00: SUB-Q, Dipesh Drug form: INJ, [id number], Start date: 12/11/12 10:00:00, Duration: 30 day, Stop date: 01/09/13 22:00:00 Lovenox 2013-0 No Garth P 40 mg, 0.4 M emoria 3-08 Gabriele mL, Route: l 16:00: SUB-Q, Dipesh Drug form: INJ, [id number], Start date: 12/11/12 10:00:00, Duration: 30 day, Stop date: 01/09/13 22:00:00 Lovenox 2013-0 No Garth P 40 mg, 0.4 M emoria 3-08 Gabriele mL, Route: l 16:00: SUB-Q, Dipesh 00 Drug form: INJ, [id number], Start date: 12/11/12 10:00:00, Duration: 30 day, Stop date: 01/09/13 22:00:00 Lovenox 2013-0 No Garth P 40 mg, 0.4 M emoria 3-08 Gabriele mL, Route: l 16:00: SUB-Q, Lolo 00 Drug form: INJ, [id number], Start date: 12/11/12 10:00:00, Duration: 30 day, Stop date: 01/09/13 22:00:00 Lovenox 2012-0 No Garth P 40 mg, 0.4 M emoria 3-08 Gabriele mL, Route: l 16:00: SUB-Q, Lolo 00 Drug form: INJ, [id number], Start date: 12/11/12 10:00:00, Duration: 30 day, Stop date: 01/09/13 22:00:00 Lovenox 2012-0 No Garth P 40 mg, 0.4 M emoria 3-08 Gabriele mL, Route: l 16:00: SUB-Q, Lolo 00 Drug form: INJ, [id number], Start date: 12/11/12 10:00:00, Duration: 30 day, Stop date: 01/09/13 22:00:00 Lovenox 2013-0 No Garth P 40 mg, 0.4 M emoria 3-08 Gabriele mL, Route: l 16:00: SUB-Q, Lolo 00 Drug form: INJ, [id number], Start date: 12/11/12 10:00:00, Duration: 30 day, Stop date: 01/09/13 22:00:00 Lovenox 2012-0 No Garth P 40 mg, 0.4 M emoria 3-08 Gabriele mL, Route: l 16:00: SUB-Q, Lolo 00 Drug form: INJ, [id number], Start date: 12/11/12 10:00:00, Duration: 30 day, Stop date: 01/09/13 22:00:00 Lovenox 2012-0 No Garth P 40 mg, 0.4 M emoria 3-08 Gabriele mL, Route: l 16:00: SUB-Q, Lolo 00 Drug form: INJ, [id number], Start date: 12/11/12 10:00:00, Duration: 30 day, Stop date: 01/09/13 22:00:00 Lovenox 2012-0 No Garth P 40 mg, 0.4 M emoria 3-08 Gabriele mL, Route: l 16:00: SUB-Q, Lolo 00 Drug form: INJ, [id number], Start date: 12/11/12 10:00:00, Duration: 30 day, Stop date: 01/09/13 22:00:00 Lovenox 2012-0 No Garth P 40 mg, 0.4 M emoria 3-08 Gabriele mL, Route: l 16:00: SUB-Q, Dipesh 00 Drug form: INJ, [id number], Start date: 12/11/12 10:00:00, Duration: 30 day, Stop date: 01/09/13 22:00:00 Lovenox 2012-0 No Garth P 40 mg, 0.4 M emoria 3-08 Gabriele mL, Route: l 16:00: SUB-Q, Lolo 00 Drug form: INJ, [id number], Start date: 12/11/12 10:00:00, Duration: 30 day, Stop date: 01/09/13 22:00:00 Lovenox 2012-0 No Garth P 40 mg, 0.4 M emoria 3-08 Gabriele mL, Route: l 16:00: SUB-Q, Lolo 00 Drug form: INJ, [id number], Start date: 12/11/12 10:00:00, Duration: 30 day, Stop date: 01/09/13 22:00:00 Lovenox 2012-0 No Garth P 40 mg, 0.4 M emoria 3-08 [place]riele mL, Route: l 16:00: SUB-Q, Lolo 00 Drug form: INJ, [id number], Start date: 12/11/12 10:00:00, Duration: 30 day, Stop date: 01/09/13 22:00:00 Lovenox 2012-0 No Garth P 40 mg, 0.4 M emoria 3-08 [place]riele mL, Route: l 16:00: SUB-Q, Lolo 00 Drug form: INJ, [id number], Start date: 12/11/12 10:00:00, Duration: 30 day, Stop date: 01/09/13 22:00:00 Lovenox 2012-0 No Garth P 40 mg, 0.4 M emoria 3-08 [place]riele mL, Route: l 16:00: SUB-Q, Drug form: INJ, [id number], Start date: 12/11/12 10:00:00, Duration: 30 day, Stop date: 01/09/13 22:00:00 Lovenox 2012-0 No Garth P 40 mg, 0.4 M emoria 3-08 [place] mL, Route: l 16:00: SUB-Q, Drug form: INJ, [id number], Start date: 12/11/12 10:00:00, Duration: 30 day, Stop date: 01/09/13 22:00:00 acetaminoph 2012-0 No Garth P 15 mL, M emoria en-hydrocod 08 [place]le Route: PO, l one 15:23: Drug Form: SOLN, Q4H, PRN Pain, Start date: 12/11/12 9:23:00, Duration: 30 day, Stop date: 01/10/13 9:22:00 Tylenol 2012-0 No Garth P 650 mg, Duke deirdre 3-08 [place] 20.3 mL, l 15:23: Route: PO, Drug form: LIQ, Q4H, PRN Pain Score 1-3, Start date: 12/11/12 9:23:00, Duration: 30 day, Stop date: 01/10/13 9:22:00 acetaminoph 2012-0 No Garth P 15 mL, M emoria en-hydrocod 3-08 [place] Route: PO, l one 15:23: Drug Form: Lolo 00 SOLN, Q4H, PRN Pain, Start date: 12/11/12 9:23:00, Duration: 30 day, Stop date: 01/10/13 9:22:00 Tylenol 2012-0 No Garth P 650 mg, [facility] deirdre 3-08 [place] 20.3 mL, l 15:23: Route: PO, Dipesh Drug form: LIQ, Q4H, PRN Pain Score 1-3, Start date: 12/11/12 9:23:00, Duration: 30 day, Stop date: 01/10/13 9:22:00 acetaminoph 2012-0 No Garth P 15 mL, M emoria en-hydrocod 3-08 [place] Route: PO, l one 15:23: Drug Form: Lolo 00 SOLN, Q4H, PRN Pain, Start date: 12/11/12 9:23:00, Duration: 30 day, Stop date: 01/10/13 9:22:00 Tylenol 2012-0 No Garth P 650 mg, [facility] deirdre 3-08 [place] 20.3 mL, l 15:23: Route: PO, Dipesh 00 Drug form: LIQ, Q4H, PRN Pain Score 1-3, Start date: 12/11/12 9:23:00, Duration: 30 day, Stop date: 01/10/13 9:22:00 acetaminoph 2012-0 No Garth P 15 mL, M emoria en-hydrocod 3-08 [place] Route: PO, l one 15:23: Drug Form: Lolo 00 SOLN, Q4H, PRN Pain, Start date: 12/11/12 9:23:00, Duration: 30 day, Stop date: 01/10/13 9:22:00 acetaminoph 2012-0 No Garth P 15 mL, M emoria en-hydrocod 3-08 [place] Route: PO, l one 15:23: Drug Form: Dipesh 00 SOLN, Q4H, PRN Pain, Start date: 12/11/12 9:23:00, Duration: 30 day, Stop date: 01/10/13 9:22:00 Tylenol 2012-0 No Garth P 650 mg, [facility] deirdre 3-08 [place] 20.3 mL, l 15:23: Route: PO, Lolo Drug form: LIQ, Q4H, PRN Pain Score 1-3, Start date: 12/11/12 9:23:00, Duration: 30 day, Stop date: 01/10/13 9:22:00 Tylenol 2012-0 No Garth P 650 mg, [facility] deirdre 3-08 [place] 20.3 mL, l 15:23: Route: PO, Dipesh 00 Drug form: LIQ, Q4H, PRN Pain Score 1-3, Start date: 12/11/12 9:23:00, Duration: 30 day, Stop date: 01/10/13 9:22:00 acetaminoph 2012-0 No Garth P 15 mL, M emoria en-hydrocod 3-08 [place] Route: PO, l one 15:23: Drug Form: Dipesh 00 SOLN, Q4H, PRN Pain, Start date: 12/11/12 9:23:00, Duration: 30 day, Stop date: 01/10/13 9:22:00 Tylenol 2012-0 No Garth P 650 mg, [facility] deirdre 3-08 [place] 20.3 mL, l 15:23: Route: PO, Drug form: LIQ, Q4H, PRN Pain Score 1-3, Start date: 12/11/12 9:23:00, Duration: 30 day, Stop date: 01/10/13 9:22:00 acetaminoph 2012-0 No Garth P 15 mL, M emoria en-hydrocod 3-08 [place] Route: PO, l one 15:23: Drug Form: Dipesh 00 SOLN, Q4H, PRN Pain, Start date: 12/11/12 9:23:00, Duration: 30 day, Stop date: 01/10/13 9:22:00 Tylenol 2012-0 No Garth P 650 mg, [facility] deirdre 3-08 [place] 20.3 mL, l 15:23: Route: PO, Dipesh 00 Drug form: LIQ, Q4H, PRN Pain Score 1-3, Start date: 12/11/12 9:23:00, Duration: 30 day, Stop date: 01/10/13 9:22:00 acetaminoph 2012-0 No Garth P 15 mL, M emoria en-hydrocod 3-08 [place] Route: PO, l one 15:23: Drug Form: Dipesh 00 SOLN, Q4H, PRN Pain, Start date: 12/11/12 9:23:00, Duration: 30 day, Stop date: 01/10/13 9:22:00 Tylenol 2012-0 No Garth P 650 mg, [facility] deirdre 3-08 [place] 20.3 mL, l 15:23: Route: PO, Lolo 00 Drug form: LIQ, Q4H, PRN Pain Score 1-3, Start date: 12/11/12 9:23:00, Duration: 30 day, Stop date: 01/10/13 9:22:00 acetaminoph 2012-0 No Garth P 15 mL, M emoria en-hydrocod 3-08 [place] Route: PO, l one 15:23: Drug Form: Lolo 00 SOLN, Q4H, PRN Pain, Start date: 12/11/12 9:23:00, Duration: 30 day, Stop date: 01/10/13 9:22:00 Tylenol 2012-0 No Garth P 650 mg, [facility] deirdre 3-08 [place] 20.3 mL, l 15:23: Route: PO, Lolo 00 Drug form: LIQ, Q4H, PRN Pain Score 1-3, Start date: 12/11/12 9:23:00, Duration: 30 day, Stop date: 01/10/13 9:22:00 acetaminoph 2012-0 No Garth P 15 mL, M em[facility] en-hydrocod 3-08 [place] Route: PO, l one 15:23: Drug Form: Dipesh 00 SOLN, Q4H, PRN Pain, Start date: 12/11/12 9:23:00, Duration: 30 day, Stop date: 01/10/13 9:22:00 Tylenol 2012-0 No Garth P 650 mg, [facility] 3-08 [place] 20.3 mL, l 15:23: Route: PO, Lolo Drug form: LIQ, Q4H, PRN Pain Score 1-3, Start date: 12/11/12 9:23:00, Duration: 30 day, Stop date: 01/10/13 9:22:00 acetaminoph 2012-0 No Garth P 15 mL, M [facility] en-hydrocod 3-08 [place] Route: PO, l one 15:23: Drug Form: Dipesh 00 SOLN, Q4H, PRN Pain, Start date: 12/11/12 9:23:00, Duration: 30 day, Stop date: 01/10/13 9:22:00 Tylenol 2012-0 No Garth P 650 mg, [facility] 3-08 [place] 20.3 mL, l 15:23: Route: PO, Dipesh Drug form: LIQ, Q4H, PRN Pain Score 1-3, Start date: 12/11/12 9:23:00, Duration: 30 day, Stop date: 01/10/13 9:22:00 acetaminoph 2012-0 No Garth P 15 mL, M [facility] en-hydrocod 3-08 [place] Route: PO, l one 15:23: Drug Form: Lolo 00 SOLN, Q4H, PRN Pain, Start date: 12/11/12 9:23:00, Duration: 30 day, Stop date: 01/10/13 9:22:00 Tylenol 2012-0 No Garth P 650 mg, [facility] 3-08 [place] 20.3 mL, l 15:23: Route: PO, Dipesh 00 Drug form: LIQ, Q4H, PRN Pain Score 1-3, Start date: 12/11/12 9:23:00, Duration: 30 day, Stop date: 01/10/13 9:22:00 acetaminoph 2012-0 No Garth P 15 mL, M [facility] en-hydrocod 3-08 [place] Route: PO, l one 15:23: Drug Form: Dipesh 00 SOLN, Q4H, PRN Pain, Start date: 12/11/12 9:23:00, Duration: 30 day, Stop date: 01/10/13 9:22:00 Tylenol 2012-0 No Garth P 650 mg, [facility] de[facility] 3-08 [place] 20.3 mL, l 15:23: Route: PO, Lolo Drug form: LIQ, Q4H, PRN Pain Score 1-3, Start date: 12/11/12 9:23:00, Duration: 30 day, Stop date: 01/10/13 9:22:00 acetaminoph 2012-0 No Garth P 15 mL, M [facility] en-hydrocod 3-08 [place] Route: PO, l one 15:23: Drug Form: Lolo 00 SOLN, Q4H, PRN Pain, Start date: 12/11/12 9:23:00, Duration: 30 day, Stop date: 01/10/13 9:22:00 Tylenol 2012-0 No Garth P 650 mg, [facility] 3-08 [place] 20.3 mL, l 15:23: Route: PO, Dipesh 00 Drug form: LIQ, Q4H, PRN Pain Score 1-3, Start date: 12/11/12 9:23:00, Duration: 30 day, Stop date: 01/10/13 9:22:00 acetaminoph 2012-0 No Garth P 15 mL, [facility] en-hydrocod 3-08 [place] Route: PO, l one 15:23: Drug Form: Lolo 00 SOLN, Q4H, PRN Pain, Start date: 12/11/12 9:23:00, Duration: 30 day, Stop date: 01/10/13 9:22:00 Tylenol 2012-0 No Garth P 650 mg, [facility] 3-08 [place] 20.3 mL, l 15:23: Route: PO, Dipesh 00 Drug form: LIQ, Q4H, PRN Pain Score 1-3, Start date: 12/11/12 9:23:00, Duration: 30 day, Stop date: 01/10/13 9:22:00 acetaminoph 2012-0 No Garth P 15 mL, M [facility] en-hydrocod 3-08 [place] Route: PO, l one 15:23: Drug Form: Lolo 00 SOLN, Q4H, PRN Pain, Start date: 12/11/12 9:23:00, Duration: 30 day, Stop date: 01/10/13 9:22:00 Tylenol 2012-0 No Garth P 650 mg, [facility] 3-08 [place] 20.3 mL, l 15:23: Route: PO, Dipesh 00 Drug form: LIQ, Q4H, PRN Pain Score 1-3, Start date: 12/11/12 9:23:00, Duration: 30 day, Stop date: 01/10/13 9:22:00 acetaminoph 2013-0 No Garth P 15 mL, M [facility] en-hydrocod 3-08 [place] Route: PO, l one 15:23: Drug Form: Dipesh 00 SOLN, Q4H, PRN Pain, Start date: 12/11/12 9:23:00, Duration: 30 day, Stop date: 01/10/13 9:22:00 Tylenol 2012-0 No Garth P 650 mg, [facility] 3-08 [place] 20.3 mL, l 15:23: Route: PO, Lolo 00 Drug form: LIQ, Q4H, PRN Pain Score 1-3, Start date: 12/11/12 9:23:00, Duration: 30 day, Stop date: 01/10/13 9:22:00 acetaminoph 2012-0 No Garth P 15 mL, [facility] en-hydrocod 3-08 [place] Route: PO, l one 15:23: Drug Form: Lolo 00 SOLN, Q4H, PRN Pain, Start date: 12/11/12 9:23:00, Duration: 30 day, Stop date: 01/10/13 9:22:00 Tylenol 2012-0 No Garth P 650 mg, [facility] 3-08 [place] 20.3 mL, l 15:23: Route: PO, Drug form: LIQ, Q4H, PRN Pain Score 1-3, Start date: 12/11/12 9:23:00, Duration: 30 day, Stop date: 01/10/13 9:22:00 acetaminoph 2012-0 No Garth P 15 mL, M [facility] en-hydrocod 3-08 [place] Route: PO, l one 15:23: Drug Form: Lolo 00 SOLN, Q4H, PRN Pain, Start date: 12/11/12 9:23:00, Duration: 30 day, Stop date: 01/10/13 9:22:00 Tylenol 2012-0 No Garth P 650 mg, [facility] 3-08 [place] 20.3 mL, l 15:23: Route: PO, Lolo 00 Drug form: LIQ, Q4H, PRN Pain Score 1-3, Start date: 12/11/12 9:23:00, Duration: 30 day, Stop date: 01/10/13 9:22:00 acetaminoph 2013-0 No Garth P 15 mL, M [facility] en-hydrocod 3-08 [place] Route: PO, l one 15:23: Drug Form: Dipesh 00 SOLN, Q4H, PRN Pain, Start date: 12/11/12 9:23:00, Duration: 30 day, Stop date: 01/10/13 9:22:00 Tylenol 2012-0 No Garth P 650 mg, [facility] 3-08 [place] 20.3 mL, l 15:23: Route: PO, Drug form: LIQ, Q4H, PRN Pain Score 1-3, Start date: 12/11/12 9:23:00, Duration: 30 day, Stop date: 01/10/13 9:22:00 acetaminoph 2012-0 No Garth P 15 mL, [facility] en-hydrocod 3-08 [place] Route: PO, l one 15:23: Drug Form: Lolo 00 SOLN, Q4H, PRN Pain, Start date: 12/11/12 9:23:00, Duration: 30 day, Stop date: 01/10/13 9:22:00 Tylenol 2012-0 No Garth P 650 mg, [facility] 3-08 [place] 20.3 mL, l 15:23: Route: PO, Drug form: LIQ, Q4H, PRN Pain Score 1-3, Start date: 12/11/12 9:23:00, Duration: 30 day, Stop date: 01/10/13 9:22:00 acetaminoph 2012-0 No Garth P 15 mL, [facility] en-hydrocod 3-08 [place] Route: PO, l one 15:23: Drug Form: Dipesh 00 SOLN, Q4H, PRN Pain, Start date: 12/11/12 9:23:00, Duration: 30 day, Stop date: 01/10/13 9:22:00 Tylenol 2012-0 No Garth P 650 mg, [facility] 3-08 [place] 20.3 mL, l 15:23: Route: PO, Lolo Drug form: LIQ, Q4H, PRN Pain Score 1-3, Start date: 12/11/12 9:23:00, Duration: 30 day, Stop date: 01/10/13 9:22:00 acetaminoph 2013-0 No Garth P 15 mL, M [facility] en-hydrocod 3-08 [place] Route: PO, l one 15:23: Drug Form: Lolo 00 SOLN, Q4H, PRN Pain, Start date: 12/11/12 9:23:00, Duration: 30 day, Stop date: 01/10/13 9:22:00 Tylenol 2012-0 No Garth P 650 mg, [facility] 3-08 [place] 20.3 mL, l 15:23: Route: PO, Dipesh 00 Drug form: LIQ, Q4H, PRN Pain Score 1-3, Start date: 12/11/12 9:23:00, Duration: 30 day, Stop date: 01/10/13 9:22:00 acetaminoph 2012-0 No Garth P 15 mL, M [facility] en-hydrocod 3-08 [place] Route: PO, l one 15:23: Drug Form: Dipesh 00 SOLN, Q4H, PRN Pain, Start date: 12/11/12 9:23:00, Duration: 30 day, Stop date: 01/10/13 9:22:00 Tylenol 2012-0 No Garth P 650 mg, [facility] 3-08 [place] 20.3 mL, l 15:23: Route: PO, Lolo 00 Drug form: LIQ, Q4H, PRN Pain Score 1-3, Start date: 12/11/12 9:23:00, Duration: 30 day, Stop date: 01/10/13 9:22:00 acetaminoph 2012-0 No Garth P 15 mL, [facility] en-hydrocod 3-08 [place] Route: PO, l one 15:23: Drug Form: Lolo 00 SOLN, Q4H, PRN Pain, Start date: 12/11/12 9:23:00, Duration: 30 day, Stop date: 01/10/13 9:22:00 Tylenol 2012-0 No Garth P 650 mg, [facility] 3-08 [place] 20.3 mL, l 15:23: Route: PO, Dipesh 00 Drug form: LIQ, Q4H, PRN Pain Score 1-3, Start date: 12/11/12 9:23:00, Duration: 30 day, Stop date: 01/10/13 9:22:00 acetaminoph 2012-0 No Garth P 15 mL, [facility] en-hydrocod 3-08 [place] Route: PO, l one 15:23: Drug Form: Lolo 00 SOLN, Q4H, PRN Pain, Start date: 12/11/12 9:23:00, Duration: 30 day, Stop date: 01/10/13 9:22:00 Tylenol 2012-0 No Garth P 650 mg, [facility] 3-08 [place] 20.3 mL, l 15:23: Route: PO, Dipesh 00 Drug form: LIQ, Q4H, PRN Pain Score 1-3, Start date: 12/11/12 9:23:00, Duration: 30 day, Stop date: 01/10/13 9:22:00 acetaminoph 2012-0 No Garth P 15 mL, [facility] en-hydrocod 3-08 [place] Route: PO, l one 15:23: Drug Form: Lolo 00 SOLN, Q4H, PRN Pain, Start date: 12/11/12 9:23:00, Duration: 30 day, Stop date: 01/10/13 9:22:00 Tylenol 2012-0 No Garth P 650 mg, [facility] 3-08 [place] 20.3 mL, l 15:23: Route: PO, Dipesh Drug form: LIQ, Q4H, PRN Pain Score 1-3, Start date: 12/11/12 9:23:00, Duration: 30 day, Stop date: 01/10/13 9:22:00 acetaminoph 2012-0 No Garth P 15 mL, [facility] en-hydrocod 3-08 [place] Route: PO, l one 15:23: Drug Form: Dipesh 00 SOLN, Q4H, PRN Pain, Start date: 12/11/12 9:23:00, Duration: 30 day, Stop date: 01/10/13 9:22:00 Tylenol 2012-0 No Garth P 650 mg, [facility] 3-08 [place] 20.3 mL, l 15:23: Route: PO, Lolo Drug form: LIQ, Q4H, PRN Pain Score 1-3, Start date: 12/11/12 9:23:00, Duration: 30 day, Stop date: 01/10/13 9:22:00 acetaminoph 2012-0 No Garth P 15 mL, [facility] en-hydrocod 3-08 [place] Route: PO, l one 15:23: Drug Form: Dipesh 00 SOLN, Q4H, PRN Pain, Start date: 12/11/12 9:23:00, Duration: 30 day, Stop date: 01/10/13 9:22:00 Tylenol 2012-0 No Garth P 650 mg, [facility] 3-08 [place] 20.3 mL, l 15:23: Route: PO, Lolo 00 Drug form: LIQ, Q4H, PRN Pain Score 1-3, Start date: 12/11/12 9:23:00, Duration: 30 day, Stop date: 01/10/13 9:22:00 acetaminoph 2012-0 No Garth P 15 mL, M [facility] en-hydrocod 3-08 [place] Route: PO, l one 15:23: Drug Form: Dipesh 00 SOLN, Q4H, PRN Pain, Start date: 12/11/12 9:23:00, Duration: 30 day, Stop date: 01/10/13 9:22:00 Tylenol 2012-0 No Garth P 650 mg, [facility] 3-08 [place] 20.3 mL, l 15:23: Route: PO, Dipesh 00 Drug form: LIQ, Q4H, PRN Pain Score 1-3, Start date: 12/11/12 9:23:00, Duration: 30 day, Stop date: 01/10/13 9:22:00 acetaminoph 2012-0 No Garth P 15 mL, M [facility] en-hydrocod 3-08 [place] Route: PO, l one 15:23: Drug Form: Dipesh 00 SOLN, Q4H, PRN Pain, Start date: 12/11/12 9:23:00, Duration: 30 day, Stop date: 01/10/13 9:22:00 Tylenol 2012-0 No Garth P 650 mg, [facility] 3-08 [place] 20.3 mL, l 15:23: Route: PO, Lolo 00 Drug form: LIQ, Q4H, PRN Pain Score 1-3, Start date: 12/11/12 9:23:00, Duration: 30 day, Stop date: 01/10/13 9:22:00 acetaminoph 2012-0 No Garth P 15 mL, M [facility] en-hydrocod 3-08 [place] Route: PO, l one 15:23: Drug Form: Dipesh 00 SOLN, Q4H, PRN Pain, Start date: 12/11/12 9:23:00, Duration: 30 day, Stop date: 01/10/13 9:22:00 Tylenol 2012-0 No Garth P 650 mg, [facility] 3-08 [place] 20.3 mL, l 15:23: Route: PO, Lolo Drug form: LIQ, Q4H, PRN Pain Score 1-3, Start date: 12/11/12 9:23:00, Duration: 30 day, Stop date: 01/10/13 9:22:00 acetaminoph 2012-0 No Garth P 15 mL, M [facility] en-hydrocod 3-08 [place] Route: PO, l one 15:23: Drug Form: Lolo 00 SOLN, Q4H, PRN Pain, Start date: 12/11/12 9:23:00, Duration: 30 day, Stop date: 01/10/13 9:22:00 Tylenol 2012-0 No Garth P 650 mg, [facility] 3-08 [place] 20.3 mL, l 15:23: Route: PO, Dipesh 00 Drug form: LIQ, Q4H, PRN Pain Score 1-3, Start date: 12/11/12 9:23:00, Duration: 30 day, Stop date: 01/10/13 9:22:00 acetaminoph 2012-0 No Garth P 15 mL, M [facility] en-hydrocod 3-08 [place] Route: PO, l one 15:23: Drug Form: Lolo 00 SOLN, Q4H, PRN Pain, Start date: 12/11/12 9:23:00, Duration: 30 day, Stop date: 01/10/13 9:22:00 Tylenol 2012-0 No Garth P 650 mg, [facility] 3-08 [place] 20.3 mL, l 15:23: Route: PO, Lolo 00 Drug form: LIQ, Q4H, PRN Pain Score 1-3, Start date: 12/11/12 9:23:00, Duration: 30 day, Stop date: 01/10/13 9:22:00 acetaminoph 2012-0 No Garth P 15 mL, [facility] en-hydrocod 3-08 [place] Route: PO, l one 15:23: Drug Form: Lolo 00 SOLN, Q4H, PRN Pain, Start date: 12/11/12 9:23:00, Duration: 30 day, Stop date: 01/10/13 9:22:00 Tylenol 2012-0 No Garth P 650 mg, [facility] 3-08 [place] 20.3 mL, l 15:23: Route: PO, Dipesh Drug form: LIQ, Q4H, PRN Pain Score 1-3, Start date: 12/11/12 9:23:00, Duration: 30 day, Stop date: 01/10/13 9:22:00 acetaminoph 2012-0 No Garth P 15 mL, [facility] en-hydrocod 3-08 [place] Route: PO, l one 15:23: Drug Form: Lolo 00 SOLN, Q4H, PRN Pain, Start date: 12/11/12 9:23:00, Duration: 30 day, Stop date: 01/10/13 9:22:00 Tylenol 2012-0 No Garth P 650 mg, [facility] 3-08 [place] 20.3 mL, l 15:23: Route: PO, Dipesh 00 Drug form: LIQ, Q4H, PRN Pain Score 1-3, Start date: 12/11/12 9:23:00, Duration: 30 day, Stop date: 01/10/13 9:22:00 acetaminoph 2012-0 No Garth P 15 mL, M [facility] en-hydrocod 3-08 [place] Route: PO, l one 15:23: Drug Form: Lolo 00 SOLN, Q4H, PRN Pain, Start date: 12/11/12 9:23:00, Duration: 30 day, Stop date: 01/10/13 9:22:00 Tylenol 2013-0 No Garth P 650 mg, [facility] 3-08 [place] 20.3 mL, l 15:23: Route: PO, Lolo 00 Drug form: LIQ, Q4H, PRN Pain Score 1-3, Start date: 12/11/12 9:23:00, Duration: 30 day, Stop date: 01/10/13 9:22:00 acetaminoph 2012-0 No Garth P 15 mL, M [facility] en-hydrocod 3-08 [place] Route: PO, l one 15:23: Drug Form: Dipesh 00 SOLN, Q4H, PRN Pain, Start date: 12/11/12 9:23:00, Duration: 30 day, Stop date: 01/10/13 9:22:00 Tylenol 2012-0 No Garth P 650 mg, [facility] 3-08 [place] 20.3 mL, l 15:23: Route: PO, Dipesh 00 Drug form: LIQ, Q4H, PRN Pain Score 1-3, Start date: 12/11/12 9:23:00, Duration: 30 day, Stop date: 01/10/13 9:22:00 acetaminoph 2012-0 No Garth P 15 mL, M [facility] en-hydrocod 3-08 [place] Route: PO, l one 15:23: Drug Form: Lolo 00 SOLN, Q4H, PRN Pain, Start date: 12/11/12 9:23:00, Duration: 30 day, Stop date: 01/10/13 9:22:00 Tylenol 2012-0 No Garth P 650 mg, [facility] 3-08 [place] 20.3 mL, l 15:23: Route: PO, Dipesh 00 Drug form: LIQ, Q4H, PRN Pain Score 1-3, Start date: 12/11/12 9:23:00, Duration: 30 day, Stop date: 01/10/13 9:22:00 acetaminoph 2012-0 No Garth P 15 mL, M [facility] en-hydrocod 3-08 [place] Route: PO, l one 15:23: Drug Form: Lolo 00 SOLN, Q4H, PRN Pain, Start date: 12/11/12 9:23:00, Duration: 30 day, Stop date: 01/10/13 9:22:00 Tylenol 2012-0 No Garth P 650 mg, [facility] 3-08 [place] 20.3 mL, l 15:23: Route: PO, Dipesh Drug form: LIQ, Q4H, PRN Pain Score 1-3, Start date: 12/11/12 9:23:00, Duration: 30 day, Stop date: 01/10/13 9:22:00 acetaminoph 2012-0 No Garth P 15 mL, M [facility] en-hydrocod 3-08 [place] Route: PO, l one 15:23: Drug Form: Lolo SOLN, Q4H, PRN Pain, Start date: 12/11/12 9:23:00, Duration: 30 day, Stop date: 01/10/13 9:22:00 Tylenol 2012-0 No Garth P 650 mg, [facility] 3-08 [place] 20.3 mL, l 15:23: Route: PO, Dipesh 00 Drug form: LIQ, Q4H, PRN Pain Score 1-3, Start date: 12/11/12 9:23:00, Duration: 30 day, Stop date: 01/10/13 9:22:00 acetaminoph 2012-0 No Garth P 15 mL, M [facility] en-hydrocod 3-08 [place] Route: PO, l one 15:23: Drug Form: Lolo 00 SOLN, Q4H, PRN Pain, Start date: 12/11/12 9:23:00, Duration: 30 day, Stop date: 01/10/13 9:22:00 Tylenol 2012-0 No Garth P 650 mg, [facility] 3-08 [place] 20.3 mL, l 15:23: Route: PO, Lolo 00 Drug form: LIQ, Q4H, PRN Pain Score 1-3, Start date: 12/11/12 9:23:00, Duration: 30 day, Stop date: 01/10/13 9:22:00 acetaminoph 2012-0 No Garth P 15 mL, M [facility] en-hydrocod 3-08 [place] Route: PO, l one 15:23: Drug Form: Dipesh 00 SOLN, Q4H, PRN Pain, Start date: 12/11/12 9:23:00, Duration: 30 day, Stop date: 01/10/13 9:22:00 Tylenol 2013-0 No Garth P 650 mg, [facility] 3-08 [place] 20.3 mL, l 15:23: Route: PO, Dipesh Drug form: LIQ, Q4H, PRN Pain Score 1-3, Start date: 12/11/12 9:23:00, Duration: 30 day, Stop date: 01/10/13 9:22:00 acetaminoph 2012-0 No Garth P 15 mL, [facility] en-hydrocod 3-08 [place] Route: PO, l one 15:23: Drug Form: Lolo 00 SOLN, Q4H, PRN Pain, Start date: 12/11/12 9:23:00, Duration: 30 day, Stop date: 01/10/13 9:22:00 Tylenol 2012-0 No Garth P 650 mg, [facility] 3-08 [place] 20.3 mL, l 15:23: Route: PO, Dipesh Drug form: LIQ, Q4H, PRN Pain Score 1-3, Start date: 12/11/12 9:23:00, Duration: 30 day, Stop date: 01/10/13 9:22:00 acetaminoph 2012-0 No Garth P 15 mL, [facility] en-hydrocod 3-08 [place] Route: PO, l one 15:23: Drug Form: Dipesh 00 SOLN, Q4H, PRN Pain, Start date: 12/11/12 9:23:00, Duration: 30 day, Stop date: 01/10/13 9:22:00 Tylenol 2012-0 No Garth P 650 mg, [facility] 3-08 [place] 20.3 mL, l 15:23: Route: PO, Lolo 00 Drug form: LIQ, Q4H, PRN Pain Score 1-3, Start date: 12/11/12 9:23:00, Duration: 30 day, Stop date: 01/10/13 9:22:00 acetaminoph 2012-0 No Garth P 15 mL, [facility] en-hydrocod 3-08 [place] Route: PO, l one 15:23: Drug Form: Dipesh 00 SOLN, Q4H, PRN Pain, Start date: 12/11/12 9:23:00, Duration: 30 day, Stop date: 01/10/13 9:22:00 Tylenol 2013-0 No Garth P 650 mg, [facility] 3-08 [place] 20.3 mL, l 15:23: Route: PO, Dipesh Drug form: LIQ, Q4H, PRN Pain Score 1-3, Start date: 12/11/12 9:23:00, Duration: 30 day, Stop date: 01/10/13 9:22:00 acetaminoph 2012-0 No Garth P 15 mL, [facility] en-hydrocod 3- [place] Route: PO, l one 15:23: Drug Form: Lolo 00 SOLN, Q4H, PRN Pain, Start date: 12/11/12 9:23:00, Duration: 30 day, Stop date: 01/10/13 9:22:00 Tylenol 2012-0 No Garth P 650 mg, [facility] 3-08 [place] 20.3 mL, l 15:23: Route: PO, Lolo 00 Drug form: LIQ, Q4H, PRN Pain Score 1-3, Start date: 12/11/12 9:23:00, Duration: 30 day, Stop date: 01/10/13 9:22:00 acetaminoph 2012-0 No Garth P 15 mL, [facility] en-hydrocod 12-11 [place] Route: PO, l one 15:23: Drug Form: Lolo 00 SOLN, Q4H, PRN Pain, Start date: 12/11/12 9:23:00, Duration: 30 day, Stop date: 01/10/13 9:22:00 Tylenol 2012-0 No Garth P 650 mg, [facility] 3-08 [place] 20.3 mL, l 15:23: Route: PO, Dipesh 00 Drug form: LIQ, Q4H, PRN Pain Score 1-3, Start date: 12/11/12 9:23:00, Duration: 30 day, Stop date: 01/10/13 9:22:00 acetaminoph 2012-0 No [facility]arth P 15 mL, [facility] en-hydrocod 3-08 [place] Route: PO, l one 15:23: Drug Form: Lolo 00 SOLN, Q4H, PRN Pain, Start date: 12/11/12 9:23:00, Duration: 30 day, Stop date: 01/10/13 9:22:00 Tylenol 2012-0 No Garth P 650 mg, [facility] 3-08 [place] 20.3 mL, l 15:23: Route: PO, Dipesh 00 Drug form: LIQ, Q4H, PRN Pain Score 1-3, Start date: 12/11/12 9:23:00, Duration: 30 day, Stop date: 01/10/13 9:22:00 acetaminoph 2012-0 No Garth P 15 mL, [facility] en-hydrocod 3-08 [place] Route: PO, l one 15:23: Drug Form: Dipesh 00 SOLN, Q4H, PRN Pain, Start date: 12/11/12 9:23:00, Duration: 30 day, Stop date: 01/10/13 9:22:00 Tylenol 2012-0 No Garth P 650 mg, [facility] 3-08 [place] 20.3 mL, l 15:23: Route: PO, Drug form: LIQ, Q4H, PRN Pain Score 1-3, Start date: 12/11/12 9:23:00, Duration: 30 day, Stop date: 01/10/13 9:22:00 acetaminoph 2012-0 No Garth P 15 mL, [place] em[facility] en-hydrocod 3-08 [place] Route: PO, l one 15:23: Drug Form: Lolo 00 SOLN, Q4H, PRN Pain, Start date: 12/11/12 9:23:00, Duration: 30 day, Stop date: 01/10/13 9:22:00 Tylenol 2012-0 No Garth P 650 mg, [facility] 3-08 [place] 20.3 mL, l 15:23: Route: PO, Lolo 00 Drug form: LIQ, Q4H, PRN Pain Score 1-3, Start date: 12/11/12 9:23:00, Duration: 30 day, Stop date: 01/10/13 9:22:00 acetaminoph 2012-0 No Garth P 15 mL, M [facility] en-hydrocod 3-08 [place] Route: PO, l one 15:23: Drug Form: Dipesh 00 SOLN, Q4H, PRN Pain, Start date: 12/11/12 9:23:00, Duration: 30 day, Stop date: 01/10/13 9:22:00 Tylenol 2012-0 No Garth P 650 mg, [facility] 3-08 [place] 20.3 mL, l 15:23: Route: PO, Lolo Drug form: LIQ, Q4H, PRN Pain Score 1-3, Start date: 12/11/12 9:23:00, Duration: 30 day, Stop date: 01/10/13 9:22:00 acetaminoph 2012-0 No Garth P 15 mL, [place] em[facility] en-hydrocod 3-08 [place] Route: PO, l one 15:23: Drug Form: Lolo 00 SOLN, Q4H, PRN Pain, Start date: 12/11/12 9:23:00, Duration: 30 day, Stop date: 01/10/13 9:22:00 Tylenol 2012-0 No Garth P 650 mg, [facility] 3-08 [place] 20.3 mL, l 15:23: Route: PO, Dipesh 00 Drug form: LIQ, Q4H, PRN Pain Score 1-3, Start date: 12/11/12 9:23:00, Duration: 30 day, Stop date: 01/10/13 9:22:00 acetaminoph 2012-0 No Garth P 15 mL, [place] em[facility] en-hydrocod 3-08 [place] Route: PO, l one 15:23: Drug Form: Lolo 00 SOLN, Q4H, PRN Pain, Start date: 12/11/12 9:23:00, Duration: 30 day, Stop date: 01/10/13 9:22:00 Tylenol 2012-0 No Garth P 650 mg, [facility] 3-08 [place] 20.3 mL, l 15:23: Route: PO, Lolo 00 Drug form: LIQ, Q4H, PRN Pain Score 1-3, Start date: 12/11/12 9:23:00, Duration: 30 day, Stop date: 01/10/13 9:22:00 acetaminoph 2012-0 No Garth P 15 mL, [facility] en-hydrocod 3-08 [place] Route: PO, l one 15:23: Drug Form: Dipesh 00 SOLN, Q4H, PRN Pain, Start date: 12/11/12 9:23:00, Duration: 30 day, Stop date: 01/10/13 9:22:00 Tylenol 2012-0 No Garth P 650 mg, [facility] 3-08 [place] 20.3 mL, l 15:23: Route: PO, Lolo Drug form: LIQ, Q4H, PRN Pain Score 1-3, Start date: 12/11/12 9:23:00, Duration: 30 day, Stop date: 01/10/13 9:22:00 acetaminoph 2012-0 No Garth P 15 mL, M emoria en-hydrocod 3-08 [place] Route: PO, l one 15:23: Drug Form: Lolo 00 SOLN, Q4H, PRN Pain, Start date: 12/11/12 9:23:00, Duration: 30 day, Stop date: 01/10/13 9:22:00 Tylenol 2012-0 No Garth P 650 mg, [facility] 3-08 [place] 20.3 mL, l 15:23: Route: PO, Lolo 00 Drug form: LIQ, Q4H, PRN Pain Score 1-3, Start date: 12/11/12 9:23:00, Duration: 30 day, Stop date: 01/10/13 9:22:00 acetaminoph 2012-0 No Garth P 15 mL, M emoria en-hydrocod 3-08 [place] Route: PO, l one 15:23: Drug Form: Dipesh 00 SOLN, Q4H, PRN Pain, Start date: 12/11/12 9:23:00, Duration: 30 day, Stop date: 01/10/13 9:22:00 Tylenol 2012-0 No Garth P 650 mg, [facility] 3-08 [place] 20.3 mL, l 15:23: Route: PO, Dipesh Drug form: LIQ, Q4H, PRN Pain Score 1-3, Start date: 12/11/12 9:23:00, Duration: 30 day, Stop date: 01/10/13 9:22:00 Pepcid 2012-0 No Garth P 20 mg, 2 [facility] 3-08 [place] mL, Route: l 03:00: IVP, Drug Lolo 00 form: INJ, Q12H, Start date: 12/10/12 21:00:00, Duration: 30 day, Stop date: 01/09/13 9:00:00 Pepcid 2012-0 No Garth P 20 mg, 2 [facility] 3-08 [place] mL, Route: l 03:00: IVP, Drug Lolo 00 form: INJ, Q12H, Start date: 12/10/12 21:00:00, Duration: 30 day, Stop date: 01/09/13 9:00:00 Pepcid 2012-0 No Garth P 20 mg, 2 [facility] 3-08 [place] mL, Route: l 03:00: IVP, Drug Dipesh 00 form: INJ, Q12H, Start date: 12/10/12 21:00:00, Duration: 30 day, Stop date: 01/09/13 9:00:00 Pepcid 2012-0 No Garth P 20 mg, 2 [facility] 3-08 [place] mL, Route: l 03:00: IVP, Drug Lolo 00 form: INJ, Q12H, Start date: 12/10/12 21:00:00, Duration: 30 day, Stop date: 01/09/13 9:00:00 Pepcid 0 No Garth P 20 mg, 2 [facility] 3-08 [place] mL, Route: l 03:00: IVP, Drug Dipesh 00 form: INJ, Q12H, Start date: 12/10/12 21:00:00, Duration: 30 day, Stop date: 01/09/13 9:00:00 Pepcid 2012-0 No Garth P 20 mg, 2 [facility] 3-08 [place] mL, Route: l 03:00: IVP, Drug Lolo 00 form: INJ, Q12H, Start date: 12/10/12 21:00:00, Duration: 30 day, Stop date: 01/09/13 9:00:00 Pepcid 2012-0 No Garth P 20 mg, 2 [facility] 3-08 [place] mL, Route: l 03:00: IVP, Drug Lolo 00 form: INJ, Q12H, Start date: 12/10/12 21:00:00, Duration: 30 day, Stop date: 01/09/13 9:00:00 Pepcid 2012-0 No Garth P 20 mg, 2 [facility] 3-08 [place] mL, Route: l 03:00: IVP, Drug Lolo 00 form: INJ, Q12H, Start date: 12/10/12 21:00:00, Duration: 30 day, Stop date: 01/09/13 9:00:00 Pepcid 2012-0 No Garth P 20 mg, 2 [facility] 3-08 [place] mL, Route: l 03:00: IVP, Drug Dipesh 00 form: INJ, Q12H, Start date: 12/10/12 21:00:00, Duration: 30 day, Stop date: 01/09/13 9:00:00 Pepcid 2012-0 No Garth P 20 mg, 2 [facility] 3-08 [place] mL, Route: l 03:00: IVP, Drug Dipesh 00 form: INJ, Q12H, Start date: 12/10/12 21:00:00, Duration: 30 day, Stop date: 01/09/13 9:00:00 Pepcid 2012-0 No Garth P 20 mg, 2 [facility] 3-08 [place] mL, Route: l 03:00: IVP, Drug Dipesh 00 form: INJ, Q12H, Start date: 12/10/12 21:00:00, Duration: 30 day, Stop date: 01/09/13 9:00:00 Pepcid 2012-0 No Garth P 20 mg, 2 [facility] 3-08 [place] mL, Route: l 03:00: IVP, Drug Lolo 00 form: INJ, Q12H, Start date: 12/10/12 21:00:00, Duration: 30 day, Stop date: 01/09/13 9:00:00 Pepcid 2012-0 No Garth P 20 mg, 2 [facility] 3-08 [place] mL, Route: l 03:00: IVP, Drug Lolo 00 form: INJ, Q12H, Start date: 12/10/12 21:00:00, Duration: 30 day, Stop date: 01/09/13 9:00:00 Pepcid 2012-0 No Garth P 20 mg, 2 [facility] 3-08 [place] mL, Route: l 03:00: IVP, Drug Dipesh 00 form: INJ, Q12H, Start date: 12/10/12 21:00:00, Duration: 30 day, Stop date: 01/09/13 9:00:00 Pepcid 2012-0 No Garth P 20 mg, 2 [facility] 3-08 [place] mL, Route: l 03:00: IVP, Drug Lolo 00 form: INJ, Q12H, Start date: 12/10/12 21:00:00, Duration: 30 day, Stop date: 01/09/13 9:00:00 Pepcid 2012-0 No Garth P 20 mg, 2 [facility] 3-08 [place] mL, Route: l 03:00: IVP, Drug Lolo 00 form: INJ, Q12H, Start date: 12/10/12 21:00:00, Duration: 30 day, Stop date: 01/09/13 9:00:00 Pepcid 2012-0 No Garth P 20 mg, 2 [facility] 3-08 [place] mL, Route: l 03:00: IVP, Drug Dipesh 00 form: INJ, Q12H, Start date: 12/10/12 21:00:00, Duration: 30 day, Stop date: 01/09/13 9:00:00 Pepcid 2012-0 No Garth P 20 mg, 2 [facility] 3-08 [place] mL, Route: l 03:00: IVP, Drug Dipesh 00 form: INJ, Q12H, Start date: 12/10/12 21:00:00, Duration: 30 day, Stop date: 01/09/13 9:00:00 Pepcid 2012-0 No Garth P 20 mg, 2 [facility] 3-08 [facility] mL, Route: l 03:00: IVP, Drug Dipesh 00 form: INJ, Q12H, Start date: 12/10/12 21:00:00, Duration: 30 day, Stop date: 01/09/13 9:00:00 Pepcid 2012-0 No Garth P 20 mg, 2 [facility] 3-08 [place] mL, Route: l 03:00: IVP, Drug Dipesh 00 form: INJ, Q12H, Start date: 12/10/12 21:00:00, Duration: 30 day, Stop date: 01/09/13 9:00:00 Pepcid 2012-0 No Garth P 20 mg, 2 [facility] 3-08 [place] mL, Route: l 03:00: IVP, Drug Dipesh 00 form: INJ, Q12H, Start date: 12/10/12 21:00:00, Duration: 30 day, Stop date: 01/09/13 9:00:00 Pepcid 2012-0 No Garth P 20 mg, 2 [facility] 3-08 [place] mL, Route: l 03:00: IVP, Drug Lolo 00 form: INJ, Q12H, Start date: 12/10/12 21:00:00, Duration: 30 day, Stop date: 01/09/13 9:00:00 Pepcid 2012-0 No Garth P 20 mg, 2 [facility] 3-08 [place] mL, Route: l 03:00: IVP, Drug Lolo 00 form: INJ, Q12H, Start date: 12/10/12 21:00:00, Duration: 30 day, Stop date: 01/09/13 9:00:00 Pepcid 2012-0 No Garth P 20 mg, 2 [facility] 3-08 [place] mL, Route: l 03:00: IVP, Drug Lolo 00 form: INJ, Q12H, Start date: 12/10/12 21:00:00, Duration: 30 day, Stop date: 01/09/13 9:00:00 Pepcid 2012-0 No Garth P 20 mg, 2 [facility] 3-08 [place] mL, Route: l 03:00: IVP, Drug Dipesh 00 form: INJ, Q12H, Start date: 12/10/12 21:00:00, Duration: 30 day, Stop date: 01/09/13 9:00:00 Pepcid 2012-0 No Garth P 20 mg, 2 [facility] 3-08 [place] mL, Route: l 03:00: IVP, Drug Dipesh 00 form: INJ, Q12H, Start date: 12/10/12 21:00:00, Duration: 30 day, Stop date: 01/09/13 9:00:00 Pepcid 2012-0 No Garth P 20 mg, 2 [facility] 3-08 [place] mL, Route: l 03:00: IVP, Drug Dipesh 00 form: INJ, Q12H, Start date: 12/10/12 21:00:00, Duration: 30 day, Stop date: 01/09/13 9:00:00 Pepcid 2012-0 No Garth P 20 mg, 2 [facility] 3-08 [place] mL, Route: l 03:00: IVP, Drug Dipesh 00 form: INJ, Q12H, Start date: 12/10/12 21:00:00, Duration: 30 day, Stop date: 01/09/13 9:00:00 Pepcid 2012-0 No Garth P 20 mg, 2 [facility] 3-08 [place] mL, Route: l 03:00: IVP, Drug Dipesh 00 form: INJ, Q12H, Start date: 12/10/12 21:00:00, Duration: 30 day, Stop date: 01/09/13 9:00:00 Pepcid 2012-0 No Garth P 20 mg, 2 [facility] 3-08 [place] mL, Route: l 03:00: IVP, Drug Lolo 00 form: INJ, Q12H, Start date: 12/10/12 21:00:00, Duration: 30 day, Stop date: 01/09/13 9:00:00 Pepcid 2012-0 No Garth P 20 mg, 2 [facility] 3-08 [place] mL, Route: l 03:00: IVP, Drug Lolo 00 form: INJ, Q12H, Start date: 12/10/12 21:00:00, Duration: 30 day, Stop date: 01/09/13 9:00:00 Pepcid 2012-0 No Garth P 20 mg, 2 [facility] 3-08 [place] mL, Route: l 03:00: IVP, Drug Lolo 00 form: INJ, Q12H, Start date: 12/10/12 21:00:00, Duration: 30 day, Stop date: 01/09/13 9:00:00 Pepcid 2012-0 No Garth P 20 mg, 2 [facility] 3-08 [place] mL, Route: l 03:00: IVP, Drug Lolo 00 form: INJ, Q12H, Start date: 12/10/12 21:00:00, Duration: 30 day, Stop date: 01/09/13 9:00:00 Pepcid 2012-0 No Garth P 20 mg, 2 [facility] 3-08 [place] mL, Route: l 03:00: IVP, Drug Lolo 00 form: INJ, Q12H, Start date: 12/10/12 21:00:00, Duration: 30 day, Stop date: 01/09/13 9:00:00 Pepcid 2012-0 No Garth P 20 mg, 2 [facility] 3-08 [place] mL, Route: l 03:00: IVP, Drug Lolo 00 form: INJ, Q12H, Start date: 12/10/12 21:00:00, Duration: 30 day, Stop date: 01/09/13 9:00:00 Pepcid 2012-0 No Garth P 20 mg, 2 [facility] 3-08 [place] mL, Route: l 03:00: IVP, Drug Lolo 00 form: INJ, Q12H, Start date: 12/10/12 21:00:00, Duration: 30 day, Stop date: 01/09/13 9:00:00 Pepcid 2012-0 No Garth P 20 mg, 2 [facility] 3-08 [place] mL, Route: l 03:00: IVP, Drug Dipesh 00 form: INJ, Q12H, Start date: 12/10/12 21:00:00, Duration: 30 day, Stop date: 01/09/13 9:00:00 Pepcid 2012-0 No Garth P 20 mg, 2 [facility] 3-08 [place] mL, Route: l 03:00: IVP, Drug Dipesh 00 form: INJ, Q12H, Start date: 12/10/12 21:00:00, Duration: 30 day, Stop date: 01/09/13 9:00:00 Pepcid 2012-0 No Garth P 20 mg, 2 [facility] 3-08 [place] mL, Route: l 03:00: IVP, Drug Lolo 00 form: INJ, Q12H, Start date: 12/10/12 21:00:00, Duration: 30 day, Stop date: 01/09/13 9:00:00 Pepcid 2012-0 No Garth P 20 mg, 2 [facility] 3-08 [place] mL, Route: l 03:00: IVP, Drug Lolo 00 form: INJ, Q12H, Start date: 12/10/12 21:00:00, Duration: 30 day, Stop date: 01/09/13 9:00:00 Pepcid 2012-0 No Garth P 20 mg, 2 [facility] 3-08 [place] mL, Route: l 03:00: IVP, Drug Lolo 00 form: INJ, Q12H, Start date: 12/10/12 21:00:00, Duration: 30 day, Stop date: 01/09/13 9:00:00 Pepcid 2012-0 No Garth P 20 mg, 2 [facility] 3-08 [place] mL, Route: l 03:00: IVP, Drug Lolo 00 form: INJ, Q12H, Start date: 12/10/12 21:00:00, Duration: 30 day, Stop date: 01/09/13 9:00:00 Pepcid 2012-0 No Garth P 20 mg, 2 [facility] 3-08 [place] mL, Route: l 03:00: IVP, Drug Dipesh 00 form: INJ, Q12H, Start date: 12/10/12 21:00:00, Duration: 30 day, Stop date: 01/09/13 9:00:00 Pepcid 2012-0 No Garth P 20 mg, 2 [facility] 3-08 [place] mL, Route: l 03:00: IVP, Drug Lolo 00 form: INJ, Q12H, Start date: 12/10/12 21:00:00, Duration: 30 day, Stop date: 01/09/13 9:00:00 Pepcid 2012-0 No [facility]arth P 20 mg, 2 [facility] 3-08 [place] mL, Route: l 03:00: IVP, Drug Dipesh 00 form: INJ, Q12H, Start date: 12/10/12 21:00:00, Duration: 30 day, Stop date: 01/09/13 9:00:00 Pepcid 2012-0 No Garth P 20 mg, 2 [facility] 3-08 [place] mL, Route: l 03:00: IVP, Drug Dipesh 00 form: INJ, Q12H, Start date: 12/10/12 21:00:00, Duration: 30 day, Stop date: 01/09/13 9:00:00 Pepcid 2012-0 No Garth P 20 mg, 2 [facility] 3-08 [place] mL, Route: l 03:00: IVP, Drug Dipesh 00 form: INJ, Q12H, Start date: 12/10/12 21:00:00, Duration: 30 day, Stop date: 01/09/13 9:00:00 Pepcid 2012-0 No [facility]arth P 20 mg, 2 [facility] 3-08 [place] mL, Route: l 03:00: IVP, Drug Dipesh 00 form: INJ, Q12H, Start date: 12/10/12 21:00:00, Duration: 30 day, Stop date: 01/09/13 9:00:00 Pepcid 2012-0 No Garth P 20 mg, 2 [facility] 3-08 [place] mL, Route: l 03:00: IVP, Drug Dipesh 00 form: INJ, Q12H, Start date: 12/10/12 21:00:00, Duration: 30 day, Stop date: 01/09/13 9:00:00 Pepcid 2012-0 No [facility]arth P 20 mg, 2 [facility] 3-08 [place] mL, Route: l 03:00: IVP, Drug Dipesh 00 form: INJ, Q12H, Start date: 12/10/12 21:00:00, Duration: 30 day, Stop date: 01/09/13 9:00:00 Pepcid 2012-0 No [facility]arth P 20 mg, 2 [facility] 3-08 [place] mL, Route: l 03:00: IVP, Drug Dipesh 00 form: INJ, Q12H, Start date: 12/10/12 21:00:00, Duration: 30 day, Stop date: 01/09/13 9:00:00 Pepcid 2012-0 No [facility]arth P 20 mg, 2 [facility] 3-08 [place] mL, Route: l 03:00: IVP, Drug Lolo 00 form: INJ, Q12H, Start date: 12/10/12 21:00:00, Duration: 30 day, Stop date: 01/09/13 9:00:00 Pepcid 2012-0 No [facility]arth P 20 mg, 2 [facility] 3-08 [place] mL, Route: l 03:00: IVP, Drug Lolo 00 form: INJ, Q12H, Start date: 12/10/12 21:00:00, Duration: 30 day, Stop date: 01/09/13 9:00:00 Pepcid 2012-0 No [facility]arth P 20 mg, 2 [facility] 3-08 [place] mL, Route: l 03:00: IVP, Drug Dipesh 00 form: INJ, Q12H, Start date: 12/10/12 21:00:00, Duration: 30 day, Stop date: 01/09/13 9:00:00 Pepcid 2012-0 No [facility]arth P 20 mg, 2 [facility] 3-08 [place] mL, Route: l 03:00: IVP, Drug Dipesh 00 form: INJ, Q12H, Start date: 12/10/12 21:00:00, Duration: 30 day, Stop date: 01/09/13 9:00:00 Pepcid 2012-0 No [facility] P 20 mg, 2 [facility] 3-08 [place] mL, Route: l 03:00: IVP, Drug Dipesh 00 form: INJ, Q12H, Start date: 12/10/12 21:00:00, Duration: 30 day, Stop date: 01/09/13 9:00:00 Pepcid 2012-0 No [facility]arth P 20 mg, 2 [facility] 3-08 [place] mL, Route: l 03:00: IVP, Drug Lolo 00 form: INJ, Q12H, Start date: 12/10/12 21:00:00, Duration: 30 day, Stop date: 01/09/13 9:00:00 ketorolac 2012-0 No [facility] P 30 mg, 1 [facility] 30 mg/mL 3-08 [place] mL, Route: l injectable 00:00: IV, Drug [facility] solution 00 form: INJ, Q6H, Start date: 12/10/12 18:00:00, Duration: 4 day, Stop date: 12/14/12 12:00:00 ketorolac 2012-0 No [facility] P 30 mg, 1 [facility] 30 mg/mL 3-08 [place] mL, Route: l injectable 00:00: IV, Drug Her [facility] solution 00 form: INJ, Q6H, Start date: 12/10/12 18:00:00, Duration: 4 day, Stop date: 12/14/12 12:00:00 ketorolac 2013-0 No [facility] P 30 mg, 1 [facility] 30 mg/mL 3-08 [place] mL, Route: l injectable 00:00: IV, Drug Her [facility] solution 00 form: INJ, Q6H, Start date: 12/10/12 18:00:00, Duration: 4 day, Stop date: 12/14/12 12:00:00 ketorolac 2013-0 No [facility] P 30 mg, 1 [facility] 30 mg/mL 3-08 [place] mL, Route: l injectable 00:00: IV, Drug Her [facility] solution 00 form: INJ, Q6H, Start date: 12/10/12 18:00:00, Duration: 4 day, Stop date: 12/14/12 12:00:00 ketorolac 2013-0 No [facility] P 30 mg, 1 [facility] 30 mg/mL 3-08 [place] mL, Route: l injectable 00:00: IV, Drug Her [facility] solution 00 form: INJ, Q6H, Start date: 12/10/12 18:00:00, Duration: 4 day, Stop date: 12/14/12 12:00:00 ketorolac 2013-0 No [facility] P 30 mg, 1 [facility] 30 mg/mL 3-08 [place] mL, Route: l injectable 00:00: IV, Drug Her [facility] solution 00 form: INJ, Q6H, Start date: 12/10/12 18:00:00, Duration: 4 day, Stop date: 12/14/12 12:00:00 ketorolac 2013-0 No [facility] P 30 mg, 1 [facility] 30 mg/mL 3-08 [place] mL, Route: l injectable 00:00: IV, Drug Her [facility] solution 00 form: INJ, Q6H, Start date: 12/10/12 18:00:00, Duration: 4 day, Stop date: 12/14/12 12:00:00 ketorolac 2013-0 No [facility] P 30 mg, 1 [facility] 30 mg/mL 3-08 [place] mL, Route: l injectable 00:00: IV, Drug Her [facility] solution 00 form: INJ, Q6H, Start date: 12/10/12 18:00:00, Duration: 4 day, Stop date: 12/14/12 12:00:00 ketorolac 2013-0 No [facility] P 30 mg, 1 [facility] 30 mg/mL 3-08 [place] mL, Route: l injectable 00:00: IV, Drug [facility] solution 00 form: INJ, Q6H, Start date: 12/10/12 18:00:00, Duration: 4 day, Stop date: 12/14/12 12:00:00 ketorolac 2013-0 No [facility] P 30 mg, 1 [facility] 30 mg/mL 3-08 [place] mL, Route: l injectable 00:00: IV, Drug [facility] solution 00 form: INJ, Q6H, Start date: 12/10/12 18:00:00, Duration: 4 day, Stop date: 12/14/12 12:00:00 ketorolac 2013-0 No [facility] P 30 mg, 1 [facility] 30 mg/mL 3-08 [place] mL, Route: l injectable 00:00: IV, Drug [facility] solution 00 form: INJ, Q6H, Start date: 12/10/12 18:00:00, Duration: 4 day, Stop date: 12/14/12 12:00:00 ketorolac 2013-0 No [facility] P 30 mg, 1 [facility] 30 mg/mL 3-08 [place] mL, Route: l injectable 00:00: IV, Drug [facility] solution 00 form: INJ, Q6H, Start date: 12/10/12 18:00:00, Duration: 4 day, Stop date: 12/14/12 12:00:00 ketorolac 2013-0 No [facility] P 30 mg, 1 [facility] 30 mg/mL 3-08 [place] mL, Route: l injectable 00:00: IV, Drug Her [facility] solution 00 form: INJ, Q6H, Start date: 12/10/12 18:00:00, Duration: 4 day, Stop date: 12/14/12 12:00:00 ketorolac 2013-0 No [facility] P 30 mg, 1 [facility] 30 mg/mL 3-08 [place] mL, Route: l injectable 00:00: IV, Drug Her [facility] solution 00 form: INJ, Q6H, Start date: 12/10/12 18:00:00, Duration: 4 day, Stop date: 12/14/12 12:00:00 ketorolac 2013-0 No [facility] P 30 mg, 1 [facility] 30 mg/mL 3-08 [place] mL, Route: l injectable 00:00: IV, Drug Her [facility] solution 00 form: INJ, Q6H, Start date: 12/10/12 18:00:00, Duration: 4 day, Stop date: 12/14/12 12:00:00 ketorolac 2013-0 No [facility] P 30 mg, 1 [facility] 30 mg/mL 3-08 [place] mL, Route: l injectable 00:00: IV, Drug Her [facility] solution 00 form: INJ, Q6H, Start date: 12/10/12 18:00:00, Duration: 4 day, Stop date: 12/14/12 12:00:00 ketorolac 2013-0 No [facility] P 30 mg, 1 [facility] [place] 30 mg/mL 3-08 [place] mL, Route: l injectable 00:00: IV, Drug Her [facility] solution 00 form: INJ, Q6H, Start date: 12/10/12 18:00:00, Duration: 4 day, Stop date: 12/14/12 12:00:00 ketorolac 2013-0 No [facility] P 30 mg, 1 [facility] [place] 30 mg/mL 3-08 [place] mL, Route: l injectable 00:00: IV, Drug Her [facility] solution 00 form: INJ, Q6H, Start date: 12/10/12 18:00:00, Duration: 4 day, Stop date: 12/14/12 12:00:00 ketorolac 2013-0 No [facility] P 30 mg, 1 [facility] [place] 30 mg/mL 3-08 [place] mL, Route: l injectable 00:00: IV, Drug Her [facility] solution 00 form: INJ, Q6H, Start date: 12/10/12 18:00:00, Duration: 4 day, Stop date: 12/14/12 12:00:00 ketorolac 2013-0 No [facility] P 30 mg, 1 [facility] 30 mg/mL 3-08 [place] mL, Route: l injectable 00:00: IV, Drug Her [facility] solution 00 form: INJ, Q6H, Start date: 12/10/12 18:00:00, Duration: 4 day, Stop date: 12/14/12 12:00:00 ketorolac 2013-0 No [facility] P 30 mg, 1 [facility] [place] 30 mg/mL 3-08 [place] mL, Route: l injectable 00:00: IV, Drug Her [facility] solution 00 form: INJ, Q6H, Start date: 12/10/12 18:00:00, Duration: 4 day, Stop date: 12/14/12 12:00:00 ketorolac 2013-0 No [facility] P 30 mg, 1 [facility] [place] 30 mg/mL 3-08 [place] mL, Route: l injectable 00:00: IV, Drug Her [facility] solution 00 form: INJ, Q6H, Start date: 12/10/12 18:00:00, Duration: 4 day, Stop date: 12/14/12 12:00:00 ketorolac 2013-0 No [facility] P 30 mg, 1 [facility] [place] 30 mg/mL 3-08 [place] mL, Route: l injectable 00:00: IV, Drug Her [facility] solution 00 form: INJ, Q6H, Start date: 12/10/12 18:00:00, Duration: 4 day, Stop date: 12/14/12 12:00:00 ketorolac 2013-0 No [facility] P 30 mg, 1 [facility] [place] 30 mg/mL 3-08 [place] mL, Route: l injectable 00:00: IV, Drug Her [facility] solution 00 form: INJ, Q6H, Start date: 12/10/12 18:00:00, Duration: 4 day, Stop date: 12/14/12 12:00:00 ketorolac 2013-0 No [facility] P 30 mg, 1 [facility] [place] 30 mg/mL 3-08 [place] mL, Route: l injectable 00:00: IV, Drug Her [facility] solution 00 form: INJ, Q6H, Start date: 12/10/12 18:00:00, Duration: 4 day, Stop date: 12/14/12 12:00:00 ketorolac 2013-0 No [facility] P 30 mg, 1 [facility] [place] 30 mg/mL 3-08 [place] mL, Route: l injectable 00:00: IV, Drug Her [facility] solution 00 form: INJ, Q6H, Start date: 12/10/12 18:00:00, Duration: 4 day, Stop date: 12/14/12 12:00:00 ketorolac 2013-0 No [facility] P 30 mg, 1 [facility] [place] 30 mg/mL 3-08 [place] mL, Route: l injectable 00:00: IV, Drug Her [facility] solution 00 form: INJ, Q6H, Start date: 12/10/12 18:00:00, Duration: 4 day, Stop date: 12/14/12 12:00:00 ketorolac 2013-0 No [facility] P 30 mg, 1 [facility] [place] 30 mg/mL 3-08 [place] mL, Route: l injectable 00:00: IV, Drug Her [facility] solution 00 form: INJ, Q6H, Start date: 12/10/12 18:00:00, Duration: 4 day, Stop date: 12/14/12 12:00:00 ketorolac 2013-0 No [facility] P 30 mg, 1 [facility] [place] 30 mg/mL 3-08 [place] mL, Route: l injectable 00:00: IV, Drug Her [facility] solution 00 form: INJ, Q6H, Start date: 12/10/12 18:00:00, Duration: 4 day, Stop date: 12/14/12 12:00:00 ketorolac 2013-0 No [facility] P 30 mg, 1 [facility] 30 mg/mL 3-08 [place] mL, Route: l injectable 00:00: IV, Drug Her [facility] solution 00 form: INJ, Q6H, Start date: 12/10/12 18:00:00, Duration: 4 day, Stop date: 12/14/12 12:00:00 ketorolac 2013-0 No [facility] P 30 mg, 1 [facility] 30 mg/mL 3-08 [place] mL, Route: l injectable 00:00: IV, Drug Her [facility] solution 00 form: INJ, Q6H, Start date: 12/10/12 18:00:00, Duration: 4 day, Stop date: 12/14/12 12:00:00 ketorolac 2013-0 No [facility] P 30 mg, 1 [facility] 30 mg/mL 3-08 [place] mL, Route: l injectable 00:00: IV, Drug Her [facility] solution 00 form: INJ, Q6H, Start date: 12/10/12 18:00:00, Duration: 4 day, Stop date: 12/14/12 12:00:00 ketorolac 2013-0 No [facility] P 30 mg, 1 [facility] [place] 30 mg/mL 3-08 [place] mL, Route: l injectable 00:00: IV, Drug [facility] solution 00 form: INJ, Q6H, Start date: 12/10/12 18:00:00, Duration: 4 day, Stop date: 12/14/12 12:00:00 ketorolac 2013-0 No [facility] P 30 mg, 1 [facility] [place] 30 mg/mL 3-08 [place] mL, Route: l injectable 00:00: IV, Drug [facility] solution 00 form: INJ, Q6H, Start date: 12/10/12 18:00:00, Duration: 4 day, Stop date: 12/14/12 12:00:00 ketorolac 2013-0 No [facility] P 30 mg, 1 [facility] [place] 30 mg/mL 3-08 [place] mL, Route: l injectable 00:00: IV, Drug [facility] solution 00 form: INJ, Q6H, Start date: 12/10/12 18:00:00, Duration: 4 day, Stop date: 12/14/12 12:00:00 ketorolac 2013-0 No [facility] P 30 mg, 1 [facility] [place] 30 mg/mL 3-08 [place] mL, Route: l injectable 00:00: IV, Drug Her [facility] solution 00 form: INJ, Q6H, Start date: 12/10/12 18:00:00, Duration: 4 day, Stop date: 12/14/12 12:00:00 ketorolac 2013-0 No [facility] P 30 mg, 1 [facility] [place] 30 mg/mL 3-08 [place] mL, Route: l injectable 00:00: IV, Drug [facility] solution 00 form: INJ, Q6H, Start date: 12/10/12 18:00:00, Duration: 4 day, Stop date: 12/14/12 12:00:00 ketorolac 2013-0 No [facility]arth P 30 mg, 1 [facility] [place] 30 mg/mL 3-08 [place] mL, Route: l injectable 00:00: IV, Drug Her [facility] solution 00 form: INJ, Q6H, Start date: 12/10/12 18:00:00, Duration: 4 day, Stop date: 12/14/12 12:00:00 ketorolac 2013-0 No [facility] P 30 mg, 1 [facility] [place] 30 mg/mL 3-08 [place] mL, Route: l injectable 00:00: IV, Drug Her [facility] solution 00 form: INJ, Q6H, Start date: 12/10/12 18:00:00, Duration: 4 day, Stop date: 12/14/12 12:00:00 ketorolac 2013-0 No [facility]arth P 30 mg, 1 [facility] [place] 30 mg/mL 3-08 [place] mL, Route: l injectable 00:00: IV, Drug Her [facility] solution 00 form: INJ, Q6H, Start date: 12/10/12 18:00:00, Duration: 4 day, Stop date: 12/14/12 12:00:00 ketorolac 2013-0 No [facility]arth P 30 mg, 1 [facility] [place] 30 mg/mL 3-08 [place] mL, Route: l injectable 00:00: IV, Drug Her [facility] solution 00 form: INJ, Q6H, Start date: 12/10/12 18:00:00, Duration: 4 day, Stop date: 12/14/12 12:00:00 ketorolac 2013-0 No Garth P 30 mg, 1 M [place] 30 mg/mL 3-08 [place] mL, Route: l injectable 00:00: IV, Drug Her [facility] solution 00 form: INJ, Q6H, Start date: 12/10/12 18:00:00, Duration: 4 day, Stop date: 12/14/12 12:00:00 ketorolac 2013-0 No Garth P 30 mg, 1 [facility] [place] 30 mg/mL 3-08 [place] mL, Route: l injectable 00:00: IV, Drug Her [facility] solution 00 form: INJ, Q6H, Start date: 12/10/12 18:00:00, Duration: 4 day, Stop date: 12/14/12 12:00:00 ketorolac 2013-0 No Garth P 30 mg, 1 M [place] 30 mg/mL 3-08 [place] mL, Route: l injectable 00:00: IV, Drug Her [facility] solution 00 form: INJ, Q6H, Start date: 12/10/12 18:00:00, Duration: 4 day, Stop date: 12/14/12 12:00:00 ketorolac 2013-0 No Garth P 30 mg, 1 M [place] 30 mg/mL 3-08 [place] mL, Route: l injectable 00:00: IV, Drug Her [facility] solution 00 form: INJ, Q6H, Start date: 12/10/12 18:00:00, Duration: 4 day, Stop date: 12/14/12 12:00:00 ketorolac 2013-0 No Garth P 30 mg, 1 M [place] 30 mg/mL 3-08 [place] mL, Route: l injectable 00:00: IV, Drug Her [facility] solution 00 form: INJ, Q6H, Start date: 12/10/12 18:00:00, Duration: 4 day, Stop date: 12/14/12 12:00:00 ketorolac 2013-0 No Garth P 30 mg, 1 M [place] 30 mg/mL 3-08 [place] mL, Route: l injectable 00:00: IV, Drug Her [facility] solution 00 form: INJ, Q6H, Start date: 12/10/12 18:00:00, Duration: 4 day, Stop date: 12/14/12 12:00:00 ketorolac 2013-0 No Garth P 30 mg, 1 M [place] 30 mg/mL 3-08 [place] mL, Route: l injectable 00:00: IV, Drug Her [facility] solution 00 form: INJ, Q6H, Start date: 12/10/12 18:00:00, Duration: 4 day, Stop date: 12/14/12 12:00:00 ketorolac 2013-0 No Garth P 30 mg, 1 M [place] 30 mg/mL 3-08 [place] mL, Route: l injectable 00:00: IV, Drug Her [facility] solution 00 form: INJ, Q6H, Start date: 12/10/12 18:00:00, Duration: 4 day, Stop date: 12/14/12 12:00:00 ketorolac 2013-0 No Garth P 30 mg, 1 M [place] 30 mg/mL 3-08 [place] mL, Route: l injectable 00:00: IV, Drug Her [facility] solution 00 form: INJ, Q6H, Start date: 12/10/12 18:00:00, Duration: 4 day, Stop date: 12/14/12 12:00:00 ketorolac 2013-0 No Garth P 30 mg, 1 M [place] 30 mg/mL 3-08 [place] mL, Route: l injectable 00:00: IV, Drug Her [facility] solution 00 form: INJ, Q6H, Start date: 12/10/12 18:00:00, Duration: 4 day, Stop date: 12/14/12 12:00:00 ketorolac 2013-0 No Garth P 30 mg, 1 M [place] 30 mg/mL 3-08 [place] mL, Route: l injectable 00:00: IV, Drug Her [facility] solution 00 form: INJ, Q6H, Start date: 12/10/12 18:00:00, Duration: 4 day, Stop date: 12/14/12 12:00:00 ketorolac 2013-0 No Garth P 30 mg, 1 M [place] 30 mg/mL 3-08 [place] mL, Route: l injectable 00:00: IV, Drug Her [facility] solution 00 form: INJ, Q6H, Start date: 12/10/12 18:00:00, Duration: 4 day, Stop date: 12/14/12 12:00:00 ketorolac 2013-0 No Garth P 30 mg, 1 M [place] 30 mg/mL 3-08 [place] mL, Route: l injectable 00:00: IV, Drug Her [facility] solution 00 form: INJ, Q6H, Start date: 12/10/12 18:00:00, Duration: 4 day, Stop date: 12/14/12 12:00:00 ketorolac 2013-0 No Garth P 30 mg, 1 M [place] 30 mg/mL 3-08 [place] mL, Route: l injectable 00:00: IV, Drug Her [facility] solution 00 form: INJ, Q6H, Start date: 12/10/12 18:00:00, Duration: 4 day, Stop date: 12/14/12 12:00:00 ketorolac 2013-0 No Garth P 30 mg, 1 M [place] 30 mg/mL 3-08 [place] mL, Route: l injectable 00:00: IV, Drug Her [facility] solution 00 form: INJ, Q6H, Start date: 12/10/12 18:00:00, Duration: 4 day, Stop date: 12/14/12 12:00:00 ketorolac 2013-0 No Garth P 30 mg, 1 M emoria 30 mg/mL 3-08 Gabriele mL, Route: l injectable 00:00: IV, Drug Her weston solution 00 form: INJ, Q6H, Start date: 12/10/12 18:00:00, Duration: 4 day, Stop date: 12/14/12 12:00:00 Phenergan 2012-0 No Garth P 25 mg, 1 M emoria 3-07 Gabriele mL, Route: l 21:54: IM, Drug Lolo 00 form: INJ, Q4H, PRN Nausea, Start date: 12/10/12 15:54:00, Duration: 30 day, Stop date: 01/09/13 15:53:00 Vasotec 2012-0 No Garth P 1.25 mg, 1 M emoria 3-07 Gabriele mL, Route: l 21:54: IV, Drug Lolo 00 form: INJ, Q6H, PRN Elevated BP, Start date: 12/10/12 15:54:00, Duration: 30 day, Stop date: 01/09/13 15:53:00 Phenergan 2012-0 No Garth P 25 mg, 1 M emoria 3-07 Gabriele mL, Route: l 21:54: IM, Drug Lolo 00 form: INJ, Q4H, PRN Nausea, Start date: 12/10/12 15:54:00, Duration: 30 day, Stop date: 01/09/13 15:53:00 Vasotec 2012-0 No Garth P 1.25 mg, 1 M emoria 3-07 Gabriele mL, Route: l 21:54: IV, Drug Dipesh 00 form: INJ, Q6H, PRN Elevated BP, Start date: 12/10/12 15:54:00, Duration: 30 day, Stop date: 01/09/13 15:53:00 Phenergan 2012-0 No Garth P 25 mg, 1 M emoria 3-07 Gabriele mL, Route: l 21:54: IM, Drug Lolo 00 form: INJ, Q4H, PRN Nausea, Start date: 12/10/12 15:54:00, Duration: 30 day, Stop date: 01/09/13 15:53:00 Vasotec 2012-0 No Garth P 1.25 mg, 1 M emoria 3-07 Gabriele mL, Route: l 21:54: IV, Drug Lolo 00 form: INJ, Q6H, PRN Elevated BP, Start date: 12/10/12 15:54:00, Duration: 30 day, Stop date: 01/09/13 15:53:00 Phenergan 2012-0 No Garth P 25 mg, 1 M emoria 3-07 Gabriele mL, Route: l 21:54: IM, Drug Lolo 00 form: INJ, Q4H, PRN Nausea, Start date: 12/10/12 15:54:00, Duration: 30 day, Stop date: 01/09/13 15:53:00 Vasotec 2012-0 No Garth P 1.25 mg, 1 M emoria 3-07 Gabriele mL, Route: l 21:54: IV, Drug Lolo 00 form: INJ, Q6H, PRN Elevated BP, Start date: 12/10/12 15:54:00, Duration: 30 day, Stop date: 01/09/13 15:53:00 Phenergan 2012-0 No Garth P 25 mg, 1 M emoria 3-07 Gabriele mL, Route: l 21:54: IM, Drug Dipesh 00 form: INJ, Q4H, PRN Nausea, Start date: 12/10/12 15:54:00, Duration: 30 day, Stop date: 01/09/13 15:53:00 Vasotec 2012-0 No Garth P 1.25 mg, 1 M emoria 3-07 Gabriele mL, Route: l 21:54: IV, Drug Lolo 00 form: INJ, Q6H, PRN Elevated BP, Start date: 12/10/12 15:54:00, Duration: 30 day, Stop date: 01/09/13 15:53:00 Phenergan 2012-0 No Garth P 25 mg, 1 M emoria 3-07 Gabriele mL, Route: l 21:54: IM, Drug Lolo 00 form: INJ, Q4H, PRN Nausea, Start date: 12/10/12 15:54:00, Duration: 30 day, Stop date: 01/09/13 15:53:00 Phenergan 2012-0 No Garth P 25 mg, 1 M emoria 3-07 Gabriele mL, Route: l 21:54: IM, Drug Dipesh 00 form: INJ, Q4H, PRN Nausea, Start date: 12/10/12 15:54:00, Duration: 30 day, Stop date: 01/09/13 15:53:00 Vasotec 2012-0 No Garth P 1.25 mg, 1 M emoria 3-07 Gabriele mL, Route: l 21:54: IV, Drug Lolo 00 form: INJ, Q6H, PRN Elevated BP, Start date: 12/10/12 15:54:00, Duration: 30 day, Stop date: 01/09/13 15:53:00 Vasotec 2012-0 No Garth P 1.25 mg, 1 M emoria 3-07 Gabriele mL, Route: l 21:54: IV, Drug Dipesh 00 form: INJ, Q6H, PRN Elevated BP, Start date: 12/10/12 15:54:00, Duration: 30 day, Stop date: 01/09/13 15:53:00 Phenergan 2012-0 No Garth P 25 mg, 1 M emoria 3-07 Gabriele mL, Route: l 21:54: IM, Drug Lolo 00 form: INJ, Q4H, PRN Nausea, Start date: 12/10/12 15:54:00, Duration: 30 day, Stop date: 01/09/13 15:53:00 Vasotec 2012-0 No Garth P 1.25 mg, 1 M emoria 3-07 Gabriele mL, Route: l 21:54: IV, Drug Dipesh 00 form: INJ, Q6H, PRN Elevated BP, Start date: 12/10/12 15:54:00, Duration: 30 day, Stop date: 01/09/13 15:53:00 Phenergan 2012-0 No Garth P 25 mg, 1 M emoria 3-07 Gabriele mL, Route: l 21:54: IM, Drug Lolo 00 form: INJ, Q4H, PRN Nausea, Start date: 12/10/12 15:54:00, Duration: 30 day, Stop date: 01/09/13 15:53:00 Vasotec 2012-0 No Garth P 1.25 mg, 1 M emoria 3-07 Gabriele mL, Route: l 21:54: IV, Drug Dipesh 00 form: INJ, Q6H, PRN Elevated BP, Start date: 12/10/12 15:54:00, Duration: 30 day, Stop date: 01/09/13 15:53:00 Phenergan 2012-0 No Garth P 25 mg, 1 M emoria 3-07 Gabriele mL, Route: l 21:54: IM, Drug Dipesh 00 form: INJ, Q4H, PRN Nausea, Start date: 12/10/12 15:54:00, Duration: 30 day, Stop date: 01/09/13 15:53:00 Vasotec 2012-0 No Garth P 1.25 mg, 1 M emoria 3-07 Gabriele mL, Route: l 21:54: IV, Drug Dipesh 00 form: INJ, Q6H, PRN Elevated BP, Start date: 12/10/12 15:54:00, Duration: 30 day, Stop date: 01/09/13 15:53:00 Phenergan 2012-0 No Garth P 25 mg, 1 M emoria 3-07 Gabriele mL, Route: l 21:54: IM, Drug Lolo 00 form: INJ, Q4H, PRN Nausea, Start date: 12/10/12 15:54:00, Duration: 30 day, Stop date: 01/09/13 15:53:00 Vasotec 2012-0 No Garth P 1.25 mg, 1 M emoria 3-07 Gabriele mL, Route: l 21:54: IV, Drug Lolo 00 form: INJ, Q6H, PRN Elevated BP, Start date: 12/10/12 15:54:00, Duration: 30 day, Stop date: 01/09/13 15:53:00 Phenergan 2012-0 No Garth P 25 mg, 1 M emoria 3-07 Gabrie[place] mL, Route: l 21:54: IM, Drug Lolo 00 form: INJ, Q4H, PRN Nausea, Start date: 12/10/12 15:54:00, Duration: 30 day, Stop date: 01/09/13 15:53:00 Vasotec 2012-0 No Garth P 1.25 mg, 1 M emoria 3-07 Gabirele mL, Route: l 21:54: IV, Drug Lolo 00 form: INJ, Q6H, PRN Elevated BP, Start date: 12/10/12 15:54:00, Duration: 30 day, Stop date: 01/09/13 15:53:00 Phenergan 2012-0 No Garth P 25 mg, 1 M emoria 3-07 Gabrie[place] mL, Route: l 21:54: IM, Drug Lolo 00 form: INJ, Q4H, PRN Nausea, Start date: 12/10/12 15:54:00, Duration: 30 day, Stop date: 01/09/13 15:53:00 Vasotec 2012-0 No Garth P 1.25 mg, 1 M emoria 3-07 Gabrie[place] mL, Route: l 21:54: IV, Drug Lolo 00 form: INJ, Q6H, PRN Elevated BP, Start date: 12/10/12 15:54:00, Duration: 30 day, Stop date: 01/09/13 15:53:00 Phenergan 2012-0 No Garth P 25 mg, 1 M emoria 3-07 Gabrie[place] mL, Route: l 21:54: IM, Drug Lolo 00 form: INJ, Q4H, PRN Nausea, Start date: 12/10/12 15:54:00, Duration: 30 day, Stop date: 01/09/13 15:53:00 Vasotec 2012-0 No Garth P 1.25 mg, 1 M emoria 3-07 Gabrie[place] mL, Route: l 21:54: IV, Drug Dipesh 00 form: INJ, Q6H, PRN Elevated BP, Start date: 12/10/12 15:54:00, Duration: 30 day, Stop date: 01/09/13 15:53:00 Phenergan 2012-0 No Garth P 25 mg, 1 M emoria 3-07 Gabrie[place] mL, Route: l 21:54: IM, Drug Dipesh 00 form: INJ, Q4H, PRN Nausea, Start date: 12/10/12 15:54:00, Duration: 30 day, Stop date: 01/09/13 15:53:00 Vasotec 2012-0 No Garth P 1.25 mg, 1 M emoria 3-07 Gabriele mL, Route: l 21:54: IV, Drug Dipesh 00 form: INJ, Q6H, PRN Elevated BP, Start date: 12/10/12 15:54:00, Duration: 30 day, Stop date: 01/09/13 15:53:00 Phenergan 2012-0 No Garth P 25 mg, 1 M emoria 3-07 Gabrie[place] mL, Route: l 21:54: IM, Drug Dipesh 00 form: INJ, Q4H, PRN Nausea, Start date: 12/10/12 15:54:00, Duration: 30 day, Stop date: 01/09/13 15:53:00 Vasotec 2012-0 No Garth P 1.25 mg, 1 M emoria 3-07 Gabrie[place] mL, Route: l 21:54: IV, Drug Lolo 00 form: INJ, Q6H, PRN Elevated BP, Start date: 12/10/12 15:54:00, Duration: 30 day, Stop date: 01/09/13 15:53:00 Phenergan 2012-0 No Garth P 25 mg, 1 M emoria 3-07 Gabrie[place] mL, Route: l 21:54: IM, Drug Lolo 00 form: INJ, Q4H, PRN Nausea, Start date: 12/10/12 15:54:00, Duration: 30 day, Stop date: 01/09/13 15:53:00 Vasotec 2012-0 No Garth P 1.25 mg, 1 M emoria 3-07 Gabrie[place] mL, Route: l 21:54: IV, Drug Dipesh 00 form: INJ, Q6H, PRN Elevated BP, Start date: 12/10/12 15:54:00, Duration: 30 day, Stop date: 01/09/13 15:53:00 Phenergan 2012-0 No Garth P 25 mg, 1 M emoria 3-07 Gabrie[place] mL, Route: l 21:54: IM, Drug Dipesh 00 form: INJ, Q4H, PRN Nausea, Start date: 12/10/12 15:54:00, Duration: 30 day, Stop date: 01/09/13 15:53:00 Vasotec 2012-0 No Garth P 1.25 mg, 1 M em[place] 3-07 Gabrie[place] mL, Route: l 21:54: IV, Drug Dipesh 00 form: INJ, Q6H, PRN Elevated BP, Start date: 12/10/12 15:54:00, Duration: 30 day, Stop date: 01/09/13 15:53:00 Phenergan 2012-0 No Garth P 25 mg, 1 M emoria 3-07 Gabrie[place] mL, Route: l 21:54: IM, Drug Dipesh 00 form: INJ, Q4H, PRN Nausea, Start date: 12/10/12 15:54:00, Duration: 30 day, Stop date: 01/09/13 15:53:00 Vasotec 2012-0 No Garth P 1.25 mg, 1 M emoria 3-07 Gabrie[place] mL, Route: l 21:54: IV, Drug Lolo 00 form: INJ, Q6H, PRN Elevated BP, Start date: 12/10/12 15:54:00, Duration: 30 day, Stop date: 01/09/13 15:53:00 Phenergan 2012-0 No Garth P 25 mg, 1 M emoria 3-07 Gabrie[place] mL, Route: l 21:54: IM, Drug Lolo 00 form: INJ, Q4H, PRN Nausea, Start date: 12/10/12 15:54:00, Duration: 30 day, Stop date: 01/09/13 15:53:00 Vasotec 2012-0 No Garth P 1.25 mg, 1 M emoria 3-07 Gabrie[place] mL, Route: l 21:54: IV, Drug Dipesh 00 form: INJ, Q6H, PRN Elevated BP, Start date: 12/10/12 15:54:00, Duration: 30 day, Stop date: 01/09/13 15:53:00 Phenergan 2012-0 No Garth P 25 mg, 1 M emoria 3-07 Gab[place] mL, Route: l 21:54: IM, Drug Dipesh 00 form: INJ, Q4H, PRN Nausea, Start date: 12/10/12 15:54:00, Duration: 30 day, Stop date: 01/09/13 15:53:00 Vasotec 2012-0 No Garth P 1.25 mg, 1 M em[place] 3-07 [place] mL, Route: l 21:54: IV, Drug Lolo 00 form: INJ, Q6H, PRN Elevated BP, Start date: 12/10/12 15:54:00, Duration: 30 day, Stop date: 01/09/13 15:53:00 Phenergan 2012-0 No Garth P 25 mg, 1 M em[place] 3-07 [place] mL, Route: l 21:54: IM, Drug Dipesh 00 form: INJ, Q4H, PRN Nausea, Start date: 12/10/12 15:54:00, Duration: 30 day, Stop date: 01/09/13 15:53:00 Vasotec 2012-0 No Garth P 1.25 mg, 1 M emoria 3-07 [place] mL, Route: l 21:54: IV, Drug Dipesh 00 form: INJ, Q6H, PRN Elevated BP, Start date: 12/10/12 15:54:00, Duration: 30 day, Stop date: 01/09/13 15:53:00 Phenergan 2012-0 No Garth P 25 mg, 1 M em[place] 3-07 [place] mL, Route: l 21:54: IM, Drug Dipesh 00 form: INJ, Q4H, PRN Nausea, Start date: 12/10/12 15:54:00, Duration: 30 day, Stop date: 01/09/13 15:53:00 Vasotec 2012-0 No Garth P 1.25 mg, 1 M em[place] 3-07 [place] mL, Route: l 21:54: IV, Drug Dipesh 00 form: INJ, Q6H, PRN Elevated BP, Start date: 12/10/12 15:54:00, Duration: 30 day, Stop date: 01/09/13 15:53:00 Phenergan 2012-0 No Garth P 25 mg, 1 M em[place] 3-07 [place] mL, Route: l 21:54: IM, Drug Lolo 00 form: INJ, Q4H, PRN Nausea, Start date: 12/10/12 15:54:00, Duration: 30 day, Stop date: 01/09/13 15:53:00 Vasotec 2012-0 No Garth P 1.25 mg, 1 M em[place] 3-07 [place] mL, Route: l 21:54: IV, Drug Dipesh 00 form: INJ, Q6H, PRN Elevated BP, Start date: 12/10/12 15:54:00, Duration: 30 day, Stop date: 01/09/13 15:53:00 Phenergan 2012-0 No Garth P 25 mg, 1 M emoria 3-07 [place] mL, Route: l 21:54: IM, Drug Lolo 00 form: INJ, Q4H, PRN Nausea, Start date: 12/10/12 15:54:00, Duration: 30 day, Stop date: 01/09/13 15:53:00 Vasotec 2012-0 No Garth P 1.25 mg, 1 M em[place] 3-07 [place] mL, Route: l 21:54: IV, Drug Dipesh 00 form: INJ, Q6H, PRN Elevated BP, Start date: 12/10/12 15:54:00, Duration: 30 day, Stop date: 01/09/13 15:53:00 Phenergan 2012-0 No Garth P 25 mg, 1 M emoria 3-07 [place] mL, Route: l 21:54: IM, Drug Dipesh 00 form: INJ, Q4H, PRN Nausea, Start date: 12/10/12 15:54:00, Duration: 30 day, Stop date: 01/09/13 15:53:00 Vasotec 2012-0 No Garth P 1.25 mg, 1 M em[place] 3-07 [place] mL, Route: l 21:54: IV, Drug Lolo 00 form: INJ, Q6H, PRN Elevated BP, Start date: 12/10/12 15:54:00, Duration: 30 day, Stop date: 01/09/13 15:53:00 Phenergan 2012-0 No Garth P 25 mg, 1 M emoria 3-07 [place] mL, Route: l 21:54: IM, Drug Diepsh 00 form: INJ, Q4H, PRN Nausea, Start date: 12/10/12 15:54:00, Duration: 30 day, Stop date: 01/09/13 15:53:00 Vasotec 2012-0 No Garth P 1.25 mg, 1 M em[place] 3-07 [place] mL, Route: l 21:54: IV, Drug Dipesh 00 form: INJ, Q6H, PRN Elevated BP, Start date: 12/10/12 15:54:00, Duration: 30 day, Stop date: 01/09/13 15:53:00 Phenergan 2012-0 No Garth P 25 mg, 1 M emoria 3-07 [place] mL, Route: l 21:54: IM, Drug Dipesh 00 form: INJ, Q4H, PRN Nausea, Start date: 12/10/12 15:54:00, Duration: 30 day, Stop date: 01/09/13 15:53:00 Vasotec 2012-0 No Garth P 1.25 mg, 1 M emoria 3-07 [place] mL, Route: l 21:54: IV, Drug Dipesh 00 form: INJ, Q6H, PRN Elevated BP, Start date: 12/10/12 15:54:00, Duration: 30 day, Stop date: 01/09/13 15:53:00 Phenergan 2012-0 No Garth P 25 mg, 1 M emoria 3-07 [place] mL, Route: l 21:54: IM, Drug Dipesh 00 form: INJ, Q4H, PRN Nausea, Start date: 12/10/12 15:54:00, Duration: 30 day, Stop date: 01/09/13 15:53:00 Vasotec 2012-0 No Garth P 1.25 mg, 1 M emoria 3-07 [place] mL, Route: l 21:54: IV, Drug Dipesh 00 form: INJ, Q6H, PRN Elevated BP, Start date: 12/10/12 15:54:00, Duration: 30 day, Stop date: 01/09/13 15:53:00 Phenergan 2012-0 No Garth P 25 mg, 1 M emoria 3-07 [place] mL, Route: l 21:54: IM, Drug Dipesh 00 form: INJ, Q4H, PRN Nausea, Start date: 12/10/12 15:54:00, Duration: 30 day, Stop date: 01/09/13 15:53:00 Vasotec 2012-0 No Garth P 1.25 mg, 1 M emoria 3-07 [place] mL, Route: l 21:54: IV, Drug Dipesh 00 form: INJ, Q6H, PRN Elevated BP, Start date: 12/10/12 15:54:00, Duration: 30 day, Stop date: 01/09/13 15:53:00 Phenergan 2012-0 No Garth P 25 mg, 1 M em[place] 3-07 [place] mL, Route: l 21:54: IM, Drug Dipesh 00 form: INJ, Q4H, PRN Nausea, Start date: 12/10/12 15:54:00, Duration: 30 day, Stop date: 01/09/13 15:53:00 Vasotec 0 No Garth P 1.25 mg, 1 M emoria 3-07 [place] mL, Route: l 21:54: IV, Drug Dipesh 00 form: INJ, Q6H, PRN Elevated BP, Start date: 12/10/12 15:54:00, Duration: 30 day, Stop date: 01/09/13 15:53:00 Phenergan 0 No Garth P 25 mg, 1 M emoria 3-07 [place] mL, Route: l 21:54: IM, Drug Lolo 00 form: INJ, Q4H, PRN Nausea, Start date: 12/10/12 15:54:00, Duration: 30 day, Stop date: 01/09/13 15:53:00 Vasotec 0 No Garth P 1.25 mg, 1 M emoria 3-07 [place] mL, Route: l 21:54: IV, Drug Dipesh 00 form: INJ, Q6H, PRN Elevated BP, Start date: 12/10/12 15:54:00, Duration: 30 day, Stop date: 01/09/13 15:53:00 Phenergan 2012-0 No Garth P 25 mg, 1 M emoria 3-07 [place] mL, Route: l 21:54: IM, Drug Dipesh 00 form: INJ, Q4H, PRN Nausea, Start date: 12/10/12 15:54:00, Duration: 30 day, Stop date: 01/09/13 15:53:00 Vasotec 2013-0 No Garth P 1.25 mg, 1 M em[place] 3-07 [place] mL, Route: l 21:54: IV, Drug Lolo 00 form: INJ, Q6H, PRN Elevated BP, Start date: 12/10/12 15:54:00, Duration: 30 day, Stop date: 01/09/13 15:53:00 Phenergan 2012-0 No Garth P 25 mg, 1 M emoria 3-07 [place] mL, Route: l 21:54: IM, Drug Dipesh 00 form: INJ, Q4H, PRN Nausea, Start date: 12/10/12 15:54:00, Duration: 30 day, Stop date: 01/09/13 15:53:00 Vasotec 2012-0 No Garth P 1.25 mg, 1 M em[place] 3-07 [place] mL, Route: l 21:54: IV, Drug Dipesh 00 form: INJ, Q6H, PRN Elevated BP, Start date: 12/10/12 15:54:00, Duration: 30 day, Stop date: 01/09/13 15:53:00 Phenergan 2012-0 No Garth P 25 mg, 1 M emoria 3-07 [place] mL, Route: l 21:54: IM, Drug Lolo 00 form: INJ, Q4H, PRN Nausea, Start date: 12/10/12 15:54:00, Duration: 30 day, Stop date: 01/09/13 15:53:00 Vasotec 0 No Garth P 1.25 mg, 1 M em[place] 3-07 [place] mL, Route: l 21:54: IV, Drug Lolo 00 form: INJ, Q6H, PRN Elevated BP, Start date: 12/10/12 15:54:00, Duration: 30 day, Stop date: 01/09/13 15:53:00 Phenergan 2012-0 No Garth P 25 mg, 1 M emoria 3-07 [place] mL, Route: l 21:54: IM, Drug Lolo 00 form: INJ, Q4H, PRN Nausea, Start date: 12/10/12 15:54:00, Duration: 30 day, Stop date: 01/09/13 15:53:00 Vasotec 2013-0 No Garth P 1.25 mg, 1 M emoria 3-07 [place] mL, Route: l 21:54: IV, Drug Lolo 00 form: INJ, Q6H, PRN Elevated BP, Start date: 12/10/12 15:54:00, Duration: 30 day, Stop date: 01/09/13 15:53:00 Phenergan 2012-0 No Garth P 25 mg, 1 M emoria 3-07 [place] mL, Route: l 21:54: IM, Drug Dipesh 00 form: INJ, Q4H, PRN Nausea, Start date: 12/10/12 15:54:00, Duration: 30 day, Stop date: 01/09/13 15:53:00 Vasotec 0 No Garth P 1.25 mg, 1 M emoria 3-07 [place] mL, Route: l 21:54: IV, Drug Dipesh 00 form: INJ, Q6H, PRN Elevated BP, Start date: 12/10/12 15:54:00, Duration: 30 day, Stop date: 01/09/13 15:53:00 Phenergan 2012-0 No Garth P 25 mg, 1 M emoria 3-07 [place] mL, Route: l 21:54: IM, Drug Lolo 00 form: INJ, Q4H, PRN Nausea, Start date: 12/10/12 15:54:00, Duration: 30 day, Stop date: 01/09/13 15:53:00 Vasotec 0 No Garth P 1.25 mg, 1 M emoria 3-07 [place] mL, Route: l 21:54: IV, Drug Dipesh 00 form: INJ, Q6H, PRN Elevated BP, Start date: 12/10/12 15:54:00, Duration: 30 day, Stop date: 01/09/13 15:53:00 Phenergan 2012-0 No Garth P 25 mg, 1 M emoria 3-07 [place] mL, Route: l 21:54: IM, Drug Lolo 00 form: INJ, Q4H, PRN Nausea, Start date: 12/10/12 15:54:00, Duration: 30 day, Stop date: 01/09/13 15:53:00 Vasotec 2012-0 No Garth P 1.25 mg, 1 M emoria 3-07 [place] mL, Route: l 21:54: IV, Drug Dipesh 00 form: INJ, Q6H, PRN Elevated BP, Start date: 12/10/12 15:54:00, Duration: 30 day, Stop date: 01/09/13 15:53:00 Phenergan 2012-0 No Garth P 25 mg, 1 M emoria 3-07 [place] mL, Route: l 21:54: IM, Drug Lolo 00 form: INJ, Q4H, PRN Nausea, Start date: 12/10/12 15:54:00, Duration: 30 day, Stop date: 01/09/13 15:53:00 Vasotec 0 No Garth P 1.25 mg, 1 M emoria 3-07 [place] mL, Route: l 21:54: IV, Drug Lolo 00 form: INJ, Q6H, PRN Elevated BP, Start date: 12/10/12 15:54:00, Duration: 30 day, Stop date: 01/09/13 15:53:00 Phenergan 2012-0 No Garth P 25 mg, 1 M emoria 3-07 [place] mL, Route: l 21:54: IM, Drug Dipesh 00 form: INJ, Q4H, PRN Nausea, Start date: 12/10/12 15:54:00, Duration: 30 day, Stop date: 01/09/13 15:53:00 Vasotec No Garth P 1.25 mg, 1 M emoria 3-07 [place] mL, Route: l 21:54: IV, Drug Dipesh 00 form: INJ, Q6H, PRN Elevated BP, Start date: 12/10/12 15:54:00, Duration: 30 day, Stop date: 01/09/13 15:53:00 Phenergan 2012-0 No Garth P 25 mg, 1 M emoria 3-07 [place] mL, Route: l 21:54: IM, Drug Lolo 00 form: INJ, Q4H, PRN Nausea, Start date: 12/10/12 15:54:00, Duration: 30 day, Stop date: 01/09/13 15:53:00 Vasotec 0 No Garth P 1.25 mg, 1 M emoria 3-07 [place] mL, Route: l 21:54: IV, Drug Lolo 00 form: INJ, Q6H, PRN Elevated BP, Start date: 12/10/12 15:54:00, Duration: 30 day, Stop date: 01/09/13 15:53:00 Phenergan 2012-0 No Garth P 25 mg, 1 M emoria 3-07 [place] mL, Route: l 21:54: IM, Drug Dipesh 00 form: INJ, Q4H, PRN Nausea, Start date: 12/10/12 15:54:00, Duration: 30 day, Stop date: 01/09/13 15:53:00 Vasotec 2012-0 No Garth P 1.25 mg, 1 M emoria 3-07 [place] mL, Route: l 21:54: IV, Drug Lolo 00 form: INJ, Q6H, PRN Elevated BP, Start date: 12/10/12 15:54:00, Duration: 30 day, Stop date: 01/09/13 15:53:00 Phenergan 2012-0 No Garth P 25 mg, 1 M emoria 3-07 [place] mL, Route: l 21:54: IM, Drug Lolo 00 form: INJ, Q4H, PRN Nausea, Start date: 12/10/12 15:54:00, Duration: 30 day, Stop date: 01/09/13 15:53:00 Vasotec 2012-0 No Garth P 1.25 mg, 1 M emoria 3-07 [place] mL, Route: l 21:54: IV, Drug Dipesh 00 form: INJ, Q6H, PRN Elevated BP, Start date: 12/10/12 15:54:00, Duration: 30 day, Stop date: 01/09/13 15:53:00 Phenergan 2012-0 No Garth P 25 mg, 1 M emoria 3-07 [place] mL, Route: l 21:54: IM, Drug Lolo 00 form: INJ, Q4H, PRN Nausea, Start date: 12/10/12 15:54:00, Duration: 30 day, Stop date: 01/09/13 15:53:00 Vasotec 2012-0 No Garth P 1.25 mg, 1 M emoria 3-07 [place] mL, Route: l 21:54: IV, Drug Dipesh 00 form: INJ, Q6H, PRN Elevated BP, Start date: 12/10/12 15:54:00, Duration: 30 day, Stop date: 01/09/13 15:53:00 Phenergan 2012-0 No Garth P 25 mg, 1 M emoria 3-07 [place] mL, Route: l 21:54: IM, Drug Dipesh 00 form: INJ, Q4H, PRN Nausea, Start date: 12/10/12 15:54:00, Duration: 30 day, Stop date: 01/09/13 15:53:00 Vasotec 2012-0 No Garth P 1.25 mg, 1 M emoria 3-07 [place] mL, Route: l 21:54: IV, Drug Lolo 00 form: INJ, Q6H, PRN Elevated BP, Start date: 12/10/12 15:54:00, Duration: 30 day, Stop date: 01/09/13 15:53:00 Phenergan 2012-0 No Garth P 25 mg, 1 M emoria 3-07 [place] mL, Route: l 21:54: IM, Drug Dipesh 00 form: INJ, Q4H, PRN Nausea, Start date: 12/10/12 15:54:00, Duration: 30 day, Stop date: 01/09/13 15:53:00 Vasotec 0 No Garth P 1.25 mg, 1 M emoria 3-07 [place] mL, Route: l 21:54: IV, Drug Dipesh 00 form: INJ, Q6H, PRN Elevated BP, Start date: 12/10/12 15:54:00, Duration: 30 day, Stop date: 01/09/13 15:53:00 Phenergan 2012-0 No Garth P 25 mg, 1 M emoria 3-07 [place] mL, Route: l 21:54: IM, Drug Dipesh 00 form: INJ, Q4H, PRN Nausea, Start date: 12/10/12 15:54:00, Duration: 30 day, Stop date: 01/09/13 15:53:00 Vasotec 2012-0 No Garth P 1.25 mg, 1 M emoria 3-07 [place] mL, Route: l 21:54: IV, Drug Dipesh 00 form: INJ, Q6H, PRN Elevated BP, Start date: 12/10/12 15:54:00, Duration: 30 day, Stop date: 01/09/13 15:53:00 Phenergan 2012-0 No Garth P 25 mg, 1 M emoria 3-07 [place] mL, Route: l 21:54: IM, Drug Lolo 00 form: INJ, Q4H, PRN Nausea, Start date: 12/10/12 15:54:00, Duration: 30 day, Stop date: 01/09/13 15:53:00 Vasotec 2012-0 No Garth P 1.25 mg, 1 M emoria 3-07 [place] mL, Route: l 21:54: IV, Drug Lolo 00 form: INJ, Q6H, PRN Elevated BP, Start date: 12/10/12 15:54:00, Duration: 30 day, Stop date: 01/09/13 15:53:00 Phenergan 2012-0 No Garth P 25 mg, 1 M emoria 3-07 [place] mL, Route: l 21:54: IM, Drug Lolo 00 form: INJ, Q4H, PRN Nausea, Start date: 12/10/12 15:54:00, Duration: 30 day, Stop date: 01/09/13 15:53:00 Vasotec 2012-0 No Garth P 1.25 mg, 1 M emoria 3-07 [place] mL, Route: l 21:54: IV, Drug Lolo 00 form: INJ, Q6H, PRN Elevated BP, Start date: 12/10/12 15:54:00, Duration: 30 day, Stop date: 01/09/13 15:53:00 Phenergan 2012-0 No Garth P 25 mg, 1 M emoria 3-07 [place] mL, Route: l 21:54: IM, Drug Dipesh 00 form: INJ, Q4H, PRN Nausea, Start date: 12/10/12 15:54:00, Duration: 30 day, Stop date: 01/09/13 15:53:00 Vasotec 2012-0 No Garth P 1.25 mg, 1 M emoria 3-07 [place] mL, Route: l 21:54: IV, Drug Lolo 00 form: INJ, Q6H, PRN Elevated BP, Start date: 12/10/12 15:54:00, Duration: 30 day, Stop date: 01/09/13 15:53:00 Phenergan 2012-0 No Garth P 25 mg, 1 M emoria 3-07 [place] mL, Route: l 21:54: IM, Drug Lolo 00 form: INJ, Q4H, PRN Nausea, Start date: 12/10/12 15:54:00, Duration: 30 day, Stop date: 01/09/13 15:53:00 Vasotec 2012-0 No Garth P 1.25 mg, 1 M emoria 3-07 [place] mL, Route: l 21:54: IV, Drug Dipesh 00 form: INJ, Q6H, PRN Elevated BP, Start date: 12/10/12 15:54:00, Duration: 30 day, Stop date: 01/09/13 15:53:00 Phenergan 2012-0 No Garth P 25 mg, 1 M emoria 3-07 [place] mL, Route: l 21:54: IM, Drug Dipesh 00 form: INJ, Q4H, PRN Nausea, Start date: 12/10/12 15:54:00, Duration: 30 day, Stop date: 01/09/13 15:53:00 Vasotec 2012-0 No Garth P 1.25 mg, 1 M emoria 3-07 [place] mL, Route: l 21:54: IV, Drug Dipesh 00 form: INJ, Q6H, PRN Elevated BP, Start date: 12/10/12 15:54:00, Duration: 30 day, Stop date: 01/09/13 15:53:00 Phenergan 2012-0 No Garth P 25 mg, 1 M emoria 3-07 [place] mL, Route: l 21:54: IM, Drug Lolo 00 form: INJ, Q4H, PRN Nausea, Start date: 12/10/12 15:54:00, Duration: 30 day, Stop date: 01/09/13 15:53:00 Vasotec 2012-0 No Garth P 1.25 mg, 1 M emoria 3-07 [place] mL, Route: l 21:54: IV, Drug Dipesh 00 form: INJ, Q6H, PRN Elevated BP, Start date: 12/10/12 15:54:00, Duration: 30 day, Stop date: 01/09/13 15:53:00 Phenergan 2012-0 No Garth P 25 mg, 1 M emoria 3-07 [place] mL, Route: l 21:54: IM, Drug Dipesh 00 form: INJ, Q4H, PRN Nausea, Start date: 12/10/12 15:54:00, Duration: 30 day, Stop date: 01/09/13 15:53:00 Vasotec 2012-0 No Garth P 1.25 mg, 1 M emoria 3-07 [place] mL, Route: l 21:54: IV, Drug Dipesh 00 form: INJ, Q6H, PRN Elevated BP, Start date: 12/10/12 15:54:00, Duration: 30 day, Stop date: 01/09/13 15:53:00 Phenergan 2012-0 No Garth P 25 mg, 1 M emoria 3-07 [place] mL, Route: l 21:54: IM, Drug Lolo 00 form: INJ, Q4H, PRN Nausea, Start date: 12/10/12 15:54:00, Duration: 30 day, Stop date: 01/09/13 15:53:00 Vasotec 2012-0 No Garth P 1.25 mg, 1 M em[place] 3-07 [place] mL, Route: l 21:54: IV, Drug Lolo 00 form: INJ, Q6H, PRN Elevated BP, Start date: 12/10/12 15:54:00, Duration: 30 day, Stop date: 01/09/13 15:53:00 Phenergan 2012-0 No Garth P 25 mg, 1 M emoria 3-07 Gabriele mL, Route: l 21:54: IM, Drug Lolo 00 form: INJ, Q4H, PRN Nausea, Start date: 12/10/12 15:54:00, Duration: 30 day, Stop date: 01/09/13 15:53:00 Vasotec 2012-0 No Garth P 1.25 mg, 1 M emoria 3-07 Gabriele mL, Route: l 21:54: IV, Drug Lolo 00 form: INJ, Q6H, PRN Elevated BP, Start date: 12/10/12 15:54:00, Duration: 30 day, Stop date: 01/09/13 15:53:00 Lactated 2012-0 No Garth P 1,000 mL, M emoria Ringers 3-07 Gabriele Rate: 80 l Injection 21:53: ml/hr, Abhijit n IV 1,000 mL 00 Infuse over: 12.5 hr, Route: IV, kg, Total Volume: 1,000, Start date: 12/10/12 15:53:00, Stop date: 01/09/13 15:52:00 Lactated 2012-0 No Garth P 1,000 mL, M emoria Ringers 3-07 Gabriele Rate: 80 l Injection 21:53: ml/hr, Abhijit n IV 1,000 mL 00 Infuse over: 12.5 hr, Route: IV, kg, Total Volume: 1,000, Start date: 12/10/12 15:53:00, Stop date: 01/09/13 15:52:00 Lactated 2012-0 No Garth P 1,000 mL, M emoria Ringers 3-07 Gabriele Rate: 80 l Injection 21:53: ml/hr, Abhijit n IV 1,000 mL 00 Infuse over: 12.5 hr, Route: IV, kg, Total Volume: 1,000, Start date: 12/10/12 15:53:00, Stop date: 01/09/13 15:52:00 Lactated 2012-0 No Garth P 1,000 mL, M emoria Ringers 3-07 Gabriele Rate: 80 l Injection 21:53: ml/hr, Abhijit n IV 1,000 mL 00 Infuse over: 12.5 hr, Route: IV, kg, Total Volume: 1,000, Start date: 12/10/12 15:53:00, Stop date: 01/09/13 15:52:00 Lactated 2012-0 No Garth P 1,000 mL, M emoria Ringers 3-07 Gabriele Rate: 80 l Injection 21:53: ml/hr, Abhijit n IV 1,000 mL 00 Infuse over: 12.5 hr, Route: IV, kg, Total Volume: 1,000, Start date: 12/10/12 15:53:00, Stop date: 01/09/13 15:52:00 Lactated 2013-0 No Garth P 1,000 mL, M emoria Ringers 3-07 Gabriele Rate: 80 l Injection 21:53: ml/hr, Abhijit n IV 1,000 mL 00 Infuse over: 12.5 hr, Route: IV, kg, Total Volume: 1,000, Start date: 12/10/12 15:53:00, Stop date: 01/09/13 15:52:00 Lactated 2012-0 No Garth P 1,000 mL, M emoria Ringers 3- Gabriele Rate: 80 l Injection 21:53: ml/hr, Abhijit n IV 1,000 mL 00 Infuse over: 12.5 hr, Route: IV, kg, Total Volume: 1,000, Start date: 12/10/12 15:53:00, Stop date: 01/09/13 15:52:00 Lactated 2012-0 No Garth P 1,000 mL, Nuria emoria Ringers 3- Gabriele Rate: 80 l Injection 21:53: ml/hr, Abhijit n IV 1,000 mL 00 Infuse over: 12.5 hr, Route: IV, kg, Total Volume: 1,000, Start date: 12/10/12 15:53:00, Stop date: 01/09/13 15:52:00 Lactated 2012-0 No Garth P 1,000 mL, Nuria emoria Ringers 3-07 [place]riele Rate: 80 l Injection 21:53: ml/hr, Ahbijit n IV 1,000 mL 00 Infuse over: 12.5 hr, Route: IV, kg, Total Volume: 1,000, Start date: 12/10/12 15:53:00, Stop date: 01/09/13 15:52:00 Lactated 2012-0 No Garth P 1,000 mL, M emoria Ringers 3-07 [place] Rate: 80 l Injection 21:53: ml/hr, Abhijit n IV 1,000 mL 00 Infuse over: 12.5 hr, Route: IV, kg, Total Volume: 1,000, Start date: 12/10/12 15:53:00, Stop date: 01/09/13 15:52:00 Lactated 2012-0 No Garth P 1,000 mL, M emoria Ringers 3-07 [place] Rate: 80 l Injection 21:53: ml/hr, Abhijit n IV 1,000 mL 00 Infuse over: 12.5 hr, Route: IV, kg, Total Volume: 1,000, Start date: 12/10/12 15:53:00, Stop date: 01/09/13 15:52:00 Lactated 2012-0 No Garth P 1,000 mL, M emoria Ringers 3-07 [place] Rate: 80 l Injection 21:53: ml/hr, Abhijit n IV 1,000 mL 00 Infuse over: 12.5 hr, Route: IV, kg, Total Volume: 1,000, Start date: 12/10/12 15:53:00, Stop date: 01/09/13 15:52:00 Lactated 2012-0 No Garth P 1,000 mL, M emoria Ringers 3-07 [place]riele Rate: 80 l Injection 21:53: ml/hr, Abhijit n IV 1,000 mL 00 Infuse over: 12.5 hr, Route: IV, kg, Total Volume: 1,000, Start date: 12/10/12 15:53:00, Stop date: 01/09/13 15:52:00 Lactated 2012-0 No Garth P 1,000 mL, M emoria Ringers 3-07 [place] Rate: 80 l Injection 21:53: ml/hr, Abhijit n IV 1,000 mL 00 Infuse over: 12.5 hr, Route: IV, kg, Total Volume: 1,000, Start date: 12/10/12 15:53:00, Stop date: 01/09/13 15:52:00 Lactated 2012-0 No Garth P 1,000 mL, M emoria Ringers 3-07 [place]le Rate: 80 l Injection 21:53: ml/hr, Abhijit n IV 1,000 mL 00 Infuse over: 12.5 hr, Route: IV, kg, Total Volume: 1,000, Start date: 12/10/12 15:53:00, Stop date: 01/09/13 15:52:00 Lactated 2012-0 No Garth P 1,000 mL, M emoria Ringers 3-07 [place]riele Rate: 80 l Injection 21:53: ml/hr, Abhijit n IV 1,000 mL 00 Infuse over: 12.5 hr, Route: IV, kg, Total Volume: 1,000, Start date: 12/10/12 15:53:00, Stop date: 01/09/13 15:52:00 Lactated 2013-0 No Garth P 1,000 mL, M emoria Ringers 3-07 Gabriele Rate: 80 l Injection 21:53: ml/hr, Abhijit n IV 1,000 mL 00 Infuse over: 12.5 hr, Route: IV, kg, Total Volume: 1,000, Start date: 12/10/12 15:53:00, Stop date: 01/09/13 15:52:00 Lactated 2012-0 No Garth P 1,000 mL, M emoria Ringers 3-07 [place] Rate: 80 l Injection 21:53: ml/hr, Abhijit n IV 1,000 mL 00 Infuse over: 12.5 hr, Route: IV, kg, Total Volume: 1,000, Start date: 12/10/12 15:53:00, Stop date: 01/09/13 15:52:00 Lactated 2012-0 No Garth P 1,000 mL, M emoria Ringers 3-07 [place] Rate: 80 l Injection 21:53: ml/hr, Abhijit n IV 1,000 mL 00 Infuse over: 12.5 hr, Route: IV, kg, Total Volume: 1,000, Start date: 12/10/12 15:53:00, Stop date: 01/09/13 15:52:00 Lactated 2012-0 No Garth P 1,000 mL, M emoria Ringers 3-07 [place] Rate: 80 l Injection 21:53: ml/hr, Abhijit n IV 1,000 mL 00 Infuse over: 12.5 hr, Route: IV, kg, Total Volume: 1,000, Start date: 12/10/12 15:53:00, Stop date: 01/09/13 15:52:00 Lactated 2012-0 No Garth P 1,000 mL, M emoria Ringers 3-07 [place] Rate: 80 l Injection 21:53: ml/hr, Abhijit n IV 1,000 mL 00 Infuse over: 12.5 hr, Route: IV, kg, Total Volume: 1,000, Start date: 12/10/12 15:53:00, Stop date: 01/09/13 15:52:00 Lactated 2012-0 No Garth P 1,000 mL, M emoria Ringers 3-07 [place] Rate: 80 l Injection 21:53: ml/hr, Abhijit n IV 1,000 mL 00 Infuse over: 12.5 hr, Route: IV, kg, Total Volume: 1,000, Start date: 12/10/12 15:53:00, Stop date: 01/09/13 15:52:00 Lactated 2012-0 No Garth P 1,000 mL, M emoria Ringers 3-07 [place] Rate: 80 l Injection 21:53: ml/hr, Abhijit n IV 1,000 mL 00 Infuse over: 12.5 hr, Route: IV, kg, Total Volume: 1,000, Start date: 12/10/12 15:53:00, Stop date: 01/09/13 15:52:00 Lactated 2012-0 No Garth P 1,000 mL, M emoria Ringers 3-07 [place] Rate: 80 l Injection 21:53: ml/hr, Abhijit n IV 1,000 mL 00 Infuse over: 12.5 hr, Route: IV, kg, Total Volume: 1,000, Start date: 12/10/12 15:53:00, Stop date: 01/09/13 15:52:00 Lactated 2012-0 No Garth P 1,000 mL, M emoria Ringers 3-07 [place] Rate: 80 l Injection 21:53: ml/hr, Abhijit n IV 1,000 mL 00 Infuse over: 12.5 hr, Route: IV, kg, Total Volume: 1,000, Start date: 12/10/12 15:53:00, Stop date: 01/09/13 15:52:00 Lactated 2012-0 No Garth P 1,000 mL, M emoria Ringers 3-07 [place] Rate: 80 l Injection 21:53: ml/hr, Abhijit n IV 1,000 mL 00 Infuse over: 12.5 hr, Route: IV, kg, Total Volume: 1,000, Start date: 12/10/12 15:53:00, Stop date: 01/09/13 15:52:00 Lactated 2012-0 No Garth P 1,000 mL, M emoria Ringers 3-07 [place] Rate: 80 l Injection 21:53: ml/hr, Abhijit n IV 1,000 mL 00 Infuse over: 12.5 hr, Route: IV, kg, Total Volume: 1,000, Start date: 12/10/12 15:53:00, Stop date: 01/09/13 15:52:00 Lactated 2012-0 No Garth P 1,000 mL, M emoria Ringers 3- [place] Rate: 80 l Injection 21:53: ml/hr, Abhijit n IV 1,000 mL 00 Infuse over: 12.5 hr, Route: IV, kg, Total Volume: 1,000, Start date: 12/10/12 15:53:00, Stop date: 01/09/13 15:52:00 Lactated 2012-0 No Garth P 1,000 mL, M emoria Ringers 3- [place] Rate: 80 l Injection 21:53: ml/hr, Abhijit n IV 1,000 mL 00 Infuse over: 12.5 hr, Route: IV, kg, Total Volume: 1,000, Start date: 12/10/12 15:53:00, Stop date: 01/09/13 15:52:00 Lactated 2012-0 No Garth P 1,000 mL, M emoria Ringers 3-07 [place] Rate: 80 l Injection 21:53: ml/hr, Abhijit n IV 1,000 mL 00 Infuse over: 12.5 hr, Route: IV, kg, Total Volume: 1,000, Start date: 12/10/12 15:53:00, Stop date: 01/09/13 15:52:00 Lactated 2012-0 No Garth P 1,000 mL, M emoria Ringers 3-07 [place] Rate: 80 l Injection 21:53: ml/hr, Abhijit n IV 1,000 mL 00 Infuse over: 12.5 hr, Route: IV, kg, Total Volume: 1,000, Start date: 12/10/12 15:53:00, Stop date: 01/09/13 15:52:00 Lactated 2012-0 No Garth P 1,000 mL, M emoria Ringers 3-07 [place] Rate: 80 l Injection 21:53: ml/hr, Abhijit n IV 1,000 mL 00 Infuse over: 12.5 hr, Route: IV, kg, Total Volume: 1,000, Start date: 12/10/12 15:53:00, Stop date: 01/09/13 15:52:00 Lactated 2012-0 No Garth P 1,000 mL, Nuria emoria Ringers 3- [place] Rate: 80 l Injection 21:53: ml/hr, Abhijit n IV 1,000 mL 00 Infuse over: 12.5 hr, Route: IV, kg, Total Volume: 1,000, Start date: 12/10/12 15:53:00, Stop date: 01/09/13 15:52:00 Lactated 2012-0 No Garth P 1,000 mL, Nuria emoria Ringers 3- [place] Rate: 80 l Injection 21:53: ml/hr, Abhijit n IV 1,000 mL 00 Infuse over: 12.5 hr, Route: IV, kg, Total Volume: 1,000, Start date: 12/10/12 15:53:00, Stop date: 01/09/13 15:52:00 Lactated 2012-0 No Garth P 1,000 mL, Nuria emoria Ringers 3-07 [place] Rate: 80 l Injection 21:53: ml/hr, Abhijit n IV 1,000 mL 00 Infuse over: 12.5 hr, Route: IV, kg, Total Volume: 1,000, Start date: 12/10/12 15:53:00, Stop date: 01/09/13 15:52:00 Lactated 2012-0 No Garth P 1,000 mL, Nuria emoria Ringers 3-07 [place] Rate: 80 l Injection 21:53: ml/hr, Abhijit n IV 1,000 mL 00 Infuse over: 12.5 hr, Route: IV, kg, Total Volume: 1,000, Start date: 12/10/12 15:53:00, Stop date: 01/09/13 15:52:00 Lactated 2012-0 No Garth P 1,000 mL, Nuria emoria Ringers 3-07 [place] Rate: 80 l Injection 21:53: ml/hr, Abhijit n IV 1,000 mL 00 Infuse over: 12.5 hr, Route: IV, kg, Total Volume: 1,000, Start date: 12/10/12 15:53:00, Stop date: 01/09/13 15:52:00 Lactated 2013-0 No Garth P 1,000 mL, M emoria Ringers 3-07 [place] Rate: 80 l Injection 21:53: ml/hr, Abhijit n IV 1,000 mL 00 Infuse over: 12.5 hr, Route: IV, kg, Total Volume: 1,000, Start date: 12/10/12 15:53:00, Stop date: 01/09/13 15:52:00 Lactated 2012-0 No Garth P 1,000 mL, M emoria Ringers 3-07 [place] Rate: 80 l Injection 21:53: ml/hr, Abhijit n IV 1,000 mL 00 Infuse over: 12.5 hr, Route: IV, kg, Total Volume: 1,000, Start date: 12/10/12 15:53:00, Stop date: 01/09/13 15:52:00 Lactated 2012-0 No Garth P 1,000 mL, M emoria Ringers 3-07 [place] Rate: 80 l Injection 21:53: ml/hr, Abhijit n IV 1,000 mL 00 Infuse over: 12.5 hr, Route: IV, kg, Total Volume: 1,000, Start date: 12/10/12 15:53:00, Stop date: 01/09/13 15:52:00 Lactated 2012-0 No Garth P 1,000 mL, M emoria Ringers 3-07 [place] Rate: 80 l Injection 21:53: ml/hr, Abhijit n IV 1,000 mL 00 Infuse over: 12.5 hr, Route: IV, kg, Total Volume: 1,000, Start date: 12/10/12 15:53:00, Stop date: 01/09/13 15:52:00 Lactated 2012-0 No Garth P 1,000 mL, M emoria Ringers 3-07 [place] Rate: 80 l Injection 21:53: ml/hr, Abhijit n IV 1,000 mL 00 Infuse over: 12.5 hr, Route: IV, kg, Total Volume: 1,000, Start date: 12/10/12 15:53:00, Stop date: 01/09/13 15:52:00 Lactated 2013-0 No Garth P 1,000 mL, M emoria Ringers 3-07 [place] Rate: 80 l Injection 21:53: ml/hr, Abhijit n IV 1,000 mL 00 Infuse over: 12.5 hr, Route: IV, kg, Total Volume: 1,000, Start date: 12/10/12 15:53:00, Stop date: 01/09/13 15:52:00 Lactated 2012-0 No Garth P 1,000 mL, M emoria Ringers 3-07 [place] Rate: 80 l Injection 21:53: ml/hr, Abhijit n IV 1,000 mL 00 Infuse over: 12.5 hr, Route: IV, kg, Total Volume: 1,000, Start date: 12/10/12 15:53:00, Stop date: 01/09/13 15:52:00 Lactated 2012-0 No Garth P 1,000 mL, M emoria Ringers 3-07 [place] Rate: 80 l Injection 21:53: ml/hr, Abhijit n IV 1,000 mL 00 Infuse over: 12.5 hr, Route: IV, kg, Total Volume: 1,000, Start date: 12/10/12 15:53:00, Stop date: 01/09/13 15:52:00 Lactated 2012-0 No Garth P 1,000 mL, Nuria emoria Ringers 3-07 [place] Rate: 80 l Injection 21:53: ml/hr, Abhijit n IV 1,000 mL 00 Infuse over: 12.5 hr, Route: IV, kg, Total Volume: 1,000, Start date: 12/10/12 15:53:00, Stop date: 01/09/13 15:52:00 Lactated 2012-0 No Garth P 1,000 mL, M emoria Ringers 3-07 [place] Rate: 80 l Injection 21:53: ml/hr, Abhijit n IV 1,000 mL 00 Infuse over: 12.5 hr, Route: IV, kg, Total Volume: 1,000, Start date: 12/10/12 15:53:00, Stop date: 01/09/13 15:52:00 Lactated 2013-0 No Garth P 1,000 mL, M emoria Ringers 3-07 [place] Rate: 80 l Injection 21:53: ml/hr, Abhijit n IV 1,000 mL 00 Infuse over: 12.5 hr, Route: IV, kg, Total Volume: 1,000, Start date: 12/10/12 15:53:00, Stop date: 01/09/13 15:52:00 Lactated 2012-0 No Garth P 1,000 mL, M emoria Ringers 3-07 [place] Rate: 80 l Injection 21:53: ml/hr, Abhijit n IV 1,000 mL 00 Infuse over: 12.5 hr, Route: IV, kg, Total Volume: 1,000, Start date: 12/10/12 15:53:00, Stop date: 01/09/13 15:52:00 Lactated 2012-0 No Garth P 1,000 mL, Nuria emoria Ringers 3-07 [place] Rate: 80 l Injection 21:53: ml/hr, Abhijit n IV 1,000 mL 00 Infuse over: 12.5 hr, Route: IV, kg, Total Volume: 1,000, Start date: 12/10/12 15:53:00, Stop date: 01/09/13 15:52:00 Lactated 2012-0 No Garth P 1,000 mL, M emoria Ringers 3-07 [place] Rate: 80 l Injection 21:53: ml/hr, Abhijit n IV 1,000 mL 00 Infuse over: 12.5 hr, Route: IV, kg, Total Volume: 1,000, Start date: 12/10/12 15:53:00, Stop date: 01/09/13 15:52:00 Lactated 2012-0 No Garth P 1,000 mL, M emoria Ringers 3-07 [place] Rate: 80 l Injection 21:53: ml/hr, Abhijit n IV 1,000 mL 00 Infuse over: 12.5 hr, Route: IV, kg, Total Volume: 1,000, Start date: 12/10/12 15:53:00, Stop date: 01/09/13 15:52:00 Lactated 2012-0 No Garth P 1,000 mL, M emoria Ringers 3-07 [place] Rate: 80 l Injection 21:53: ml/hr, Abhijit n IV 1,000 mL 00 Infuse over: 12.5 hr, Route: IV, kg, Total Volume: 1,000, Start date: 12/10/12 15:53:00, Stop date: 01/09/13 15:52:00 Lactated 2012-0 No Garth P 1,000 mL, Nuria monsonria Ringers 3- [place] Rate: 80 l Injection 21:53: ml/hr, Abhijit n IV 1,000 mL 00 Infuse over: 12.5 hr, Route: IV, kg, Total Volume: 1,000, Start date: 12/10/12 15:53:00, Stop date: 01/09/13 15:52:00 Lactated 2012-0 No Garth P 1,000 mL, Nuria emoria Ringers 3- [place] Rate: 80 l Injection 21:53: ml/hr, Abhijit n IV 1,000 mL 00 Infuse over: 12.5 hr, Route: IV, kg, Total Volume: 1,000, Start date: 12/10/12 15:53:00, Stop date: 01/09/13 15:52:00 Lactated 2012-0 No Garth P 1,000 mL, Nuria monsonria Ringers 3- [place] Rate: 80 l Injection 21:53: ml/hr, Abhijit n IV 1,000 mL 00 Infuse over: 12.5 hr, Route: IV, kg, Total Volume: 1,000, Start date: 12/10/12 15:53:00, Stop date: 01/09/13 15:52:00 Lactated 2012-0 No Garth P 1,000 mL, Nuria emoria Ringers 3-07 [place] Rate: 80 l Injection 21:53: ml/hr, Abhijit n IV 1,000 mL 00 Infuse over: 12.5 hr, Route: IV, kg, Total Volume: 1,000, Start date: 12/10/12 15:53:00, Stop date: 01/09/13 15:52:00 Zofran 2012-0 No Garth P 4 mg, 2 [facility]or [facility] 12-10 [place] mL, Route: l 20:19: IVP, Drug Dipesh 00 form: INJ, Q8H, PRN Nausea & Vomiting, Start date: 12/10/12 14:19:00, Duration: 30 day, Stop date: 01/09/13 14:18:00 Zofran 2012-0 No Garth P 4 mg, 2 [facility] 3-07 [place] mL, Route: l 20:19: IVP, Drug Lolo 00 form: INJ, Q8H, PRN Nausea & Vomiting, Start date: 12/10/12 14:19:00, Duration: 30 day, Stop date: 01/09/13 14:18:00 Zofran 2012-0 No Garth P 4 mg, 2 [facility] 3-07 [place] mL, Route: l 20:19: IVP, Drug Dipesh 00 form: INJ, Q8H, PRN Nausea & Vomiting, Start date: 12/10/12 14:19:00, Duration: 30 day, Stop date: 01/09/13 14:18:00 Zofran 2012-0 No Garth P 4 mg, 2 [facility] 3-07 [place] mL, Route: l 20:19: IVP, Drug Dipesh 00 form: INJ, Q8H, PRN Nausea & Vomiting, Start date: 12/10/12 14:19:00, Duration: 30 day, Stop date: 01/09/13 14:18:00 Zofran 2012-0 No Garth P 4 mg, 2 [facility] 3-07 [place] mL, Route: l 20:19: IVP, Drug Dipesh 00 form: INJ, Q8H, PRN Nausea & Vomiting, Start date: 12/10/12 14:19:00, Duration: 30 day, Stop date: 01/09/13 14:18:00 Zofran 2012-0 No Garth P 4 mg, 2 [facility] 3-07 [place] mL, Route: l 20:19: IVP, Drug Lolo 00 form: INJ, Q8H, PRN Nausea & Vomiting, Start date: 12/10/12 14:19:00, Duration: 30 day, Stop date: 01/09/13 14:18:00 Zofran 2012-0 No Garth P 4 mg, 2 [facility] 3-07 [place] mL, Route: l 20:19: IVP, Drug Dipesh 00 form: INJ, Q8H, PRN Nausea & Vomiting, Start date: 12/10/12 14:19:00, Duration: 30 day, Stop date: 01/09/13 14:18:00 Zofran 2012-0 No Garth P 4 mg, 2 [facility] 3-07 [place] mL, Route: l 20:19: IVP, Drug Lolo 00 form: INJ, Q8H, PRN Nausea & Vomiting, Start date: 12/10/12 14:19:00, Duration: 30 day, Stop date: 01/09/13 14:18:00 Zofran 2012-0 No Garth P 4 mg, 2 [facility] 3-07 [place] mL, Route: l 20:19: IVP, Drug Dipesh 00 form: INJ, Q8H, PRN Nausea & Vomiting, Start date: 12/10/12 14:19:00, Duration: 30 day, Stop date: 01/09/13 14:18:00 Zofran 2012-0 No Garth P 4 mg, 2 [facility] 3-07 [place] mL, Route: l 20:19: IVP, Drug Dipesh 00 form: INJ, Q8H, PRN Nausea & Vomiting, Start date: 12/10/12 14:19:00, Duration: 30 day, Stop date: 01/09/13 14:18:00 Zofran 2012-0 No Garth P 4 mg, 2 [facility] 3-07 [place] mL, Route: l 20:19: IVP, Drug Lolo 00 form: INJ, Q8H, PRN Nausea & Vomiting, Start date: 12/10/12 14:19:00, Duration: 30 day, Stop date: 01/09/13 14:18:00 Zofran 2012-0 No Garth P 4 mg, 2 [facility] 3-07 [place] mL, Route: l 20:19: IVP, Drug Dipesh 00 form: INJ, Q8H, PRN Nausea & Vomiting, Start date: 12/10/12 14:19:00, Duration: 30 day, Stop date: 01/09/13 14:18:00 Zofran 2012-0 No Garth P 4 mg, 2 [facility] 3-07 [place] mL, Route: l 20:19: IVP, Drug Lolo 00 form: INJ, Q8H, PRN Nausea & Vomiting, Start date: 12/10/12 14:19:00, Duration: 30 day, Stop date: 01/09/13 14:18:00 Zofran 2012-0 No Garth P 4 mg, 2 [facility] 3-07 [place] mL, Route: l 20:19: IVP, Drug Dipesh 00 form: INJ, Q8H, PRN Nausea & Vomiting, Start date: 12/10/12 14:19:00, Duration: 30 day, Stop date: 01/09/13 14:18:00 Zofran 2012-0 No Garth P 4 mg, 2 [facility] 3-07 [place] mL, Route: l 20:19: IVP, Drug Lolo 00 form: INJ, Q8H, PRN Nausea & Vomiting, Start date: 12/10/12 14:19:00, Duration: 30 day, Stop date: 01/09/13 14:18:00 Zofran 2012-0 No Garth P 4 mg, 2 [facility] 3-07 [place] mL, Route: l 20:19: IVP, Drug Dipesh 00 form: INJ, Q8H, PRN Nausea & Vomiting, Start date: 12/10/12 14:19:00, Duration: 30 day, Stop date: 01/09/13 14:18:00 Zofran 2012-0 No Garth P 4 mg, 2 [facility] 3-07 [place] mL, Route: l 20:19: IVP, Drug Dipesh 00 form: INJ, Q8H, PRN Nausea & Vomiting, Start date: 12/10/12 14:19:00, Duration: 30 day, Stop date: 01/09/13 14:18:00 Zofran 2012-0 No Garth P 4 mg, 2 [facility] 3-07 [place] mL, Route: l 20:19: IVP, Drug Dipesh 00 form: INJ, Q8H, PRN Nausea & Vomiting, Start date: 12/10/12 14:19:00, Duration: 30 day, Stop date: 01/09/13 14:18:00 Zofran 2012-0 No Garth P 4 mg, 2 [facility] 3-07 [place] mL, Route: l 20:19: IVP, Drug Lolo 00 form: INJ, Q8H, PRN Nausea & Vomiting, Start date: 12/10/12 14:19:00, Duration: 30 day, Stop date: 01/09/13 14:18:00 Zofran 2012-0 No Garth P 4 mg, 2 [facility] 3-07 [place] mL, Route: l 20:19: IVP, Drug Dipesh 00 form: INJ, Q8H, PRN Nausea & Vomiting, Start date: 12/10/12 14:19:00, Duration: 30 day, Stop date: 01/09/13 14:18:00 Zofran 2012-0 No Garth P 4 mg, 2 [facility] 3-07 [place] mL, Route: l 20:19: IVP, Drug Dipesh 00 form: INJ, Q8H, PRN Nausea & Vomiting, Start date: 12/10/12 14:19:00, Duration: 30 day, Stop date: 01/09/13 14:18:00 Zofran 2012-0 No Garth P 4 mg, 2 [facility] 3-07 [place] mL, Route: l 20:19: IVP, Drug Lolo 00 form: INJ, Q8H, PRN Nausea & Vomiting, Start date: 12/10/12 14:19:00, Duration: 30 day, Stop date: 01/09/13 14:18:00 Zofran 2012-0 No Garth P 4 mg, 2 [facility] 3-07 [place] mL, Route: l 20:19: IVP, Drug Dipesh 00 form: INJ, Q8H, PRN Nausea & Vomiting, Start date: 12/10/12 14:19:00, Duration: 30 day, Stop date: 01/09/13 14:18:00 Zofran 2012-0 No Garth P 4 mg, 2 [facility] 3-07 [place] mL, Route: l 20:19: IVP, Drug Dipesh 00 form: INJ, Q8H, PRN Nausea & Vomiting, Start date: 12/10/12 14:19:00, Duration: 30 day, Stop date: 01/09/13 14:18:00 Zofran 2012-0 No Garth P 4 mg, 2 [facility] 3-07 [place] mL, Route: l 20:19: IVP, Drug Dipesh 00 form: INJ, Q8H, PRN Nausea & Vomiting, Start date: 12/10/12 14:19:00, Duration: 30 day, Stop date: 01/09/13 14:18:00 Zofran 2013-0 No Garth P 4 mg, 2 [facility] 3-07 [place] mL, Route: l 20:19: IVP, Drug Dipesh 00 form: INJ, Q8H, PRN Nausea & Vomiting, Start date: 12/10/12 14:19:00, Duration: 30 day, Stop date: 01/09/13 14:18:00 Zofran 2012-0 No Garth P 4 mg, 2 [facility] 3-07 [place] mL, Route: l 20:19: IVP, Drug Lolo 00 form: INJ, Q8H, PRN Nausea & Vomiting, Start date: 12/10/12 14:19:00, Duration: 30 day, Stop date: 01/09/13 14:18:00 Zofran 2012-0 No Garth P 4 mg, 2 [facility] 3-07 [place] mL, Route: l 20:19: IVP, Drug Dipesh 00 form: INJ, Q8H, PRN Nausea & Vomiting, Start date: 12/10/12 14:19:00, Duration: 30 day, Stop date: 01/09/13 14:18:00 Zofran 2012-0 No Garth P 4 mg, 2 [facility] 3-07 [place] mL, Route: l 20:19: IVP, Drug Dipesh 00 form: INJ, Q8H, PRN Nausea & Vomiting, Start date: 12/10/12 14:19:00, Duration: 30 day, Stop date: 01/09/13 14:18:00 Zofran 2012-0 No Garth P 4 mg, 2 [facility] 3-07 [place] mL, Route: l 20:19: IVP, Drug Lolo 00 form: INJ, Q8H, PRN Nausea & Vomiting, Start date: 12/10/12 14:19:00, Duration: 30 day, Stop date: 01/09/13 14:18:00 Zofran 2013-0 No Garth P 4 mg, 2 [facility] 3-07 [place] mL, Route: l 20:19: IVP, Drug Dipesh 00 form: INJ, Q8H, PRN Nausea & Vomiting, Start date: 12/10/12 14:19:00, Duration: 30 day, Stop date: 01/09/13 14:18:00 Zofran 2012-0 No Garth P 4 mg, 2 [facility] 3-07 [place] mL, Route: l 20:19: IVP, Drug Dipesh 00 form: INJ, Q8H, PRN Nausea & Vomiting, Start date: 12/10/12 14:19:00, Duration: 30 day, Stop date: 01/09/13 14:18:00 Zofran 2012-0 No Garth P 4 mg, 2 [facility] 3-07 [place] mL, Route: l 20:19: IVP, Drug Dipesh 00 form: INJ, Q8H, PRN Nausea & Vomiting, Start date: 12/10/12 14:19:00, Duration: 30 day, Stop date: 01/09/13 14:18:00 Zofran 2012-0 No Garth P 4 mg, 2 [facility] 3-07 [place] mL, Route: l 20:19: IVP, Drug Lolo 00 form: INJ, Q8H, PRN Nausea & Vomiting, Start date: 12/10/12 14:19:00, Duration: 30 day, Stop date: 01/09/13 14:18:00 Zofran 2012-0 No Garth P 4 mg, 2 [facility] 3-07 [place] mL, Route: l 20:19: IVP, Drug Dipesh 00 form: INJ, Q8H, PRN Nausea & Vomiting, Start date: 12/10/12 14:19:00, Duration: 30 day, Stop date: 01/09/13 14:18:00 Zofran 2012-0 No Garth P 4 mg, 2 [facility] 3-07 [place] mL, Route: l 20:19: IVP, Drug Dipesh 00 form: INJ, Q8H, PRN Nausea & Vomiting, Start date: 12/10/12 14:19:00, Duration: 30 day, Stop date: 01/09/13 14:18:00 Zofran 2012-0 No Garth P 4 mg, 2 [facility] 3-07 [place] mL, Route: l 20:19: IVP, Drug Lolo 00 form: INJ, Q8H, PRN Nausea & Vomiting, Start date: 12/10/12 14:19:00, Duration: 30 day, Stop date: 01/09/13 14:18:00 Zofran 2013-0 No Garth P 4 mg, 2 [facility] 3-07 [place] mL, Route: l 20:19: IVP, Drug Lolo 00 form: INJ, Q8H, PRN Nausea & Vomiting, Start date: 12/10/12 14:19:00, Duration: 30 day, Stop date: 01/09/13 14:18:00 Zofran 2012-0 No Garth P 4 mg, 2 [facility] 3-07 [place] mL, Route: l 20:19: IVP, Drug Dipesh 00 form: INJ, Q8H, PRN Nausea & Vomiting, Start date: 12/10/12 14:19:00, Duration: 30 day, Stop date: 01/09/13 14:18:00 Zofran 2012-0 No Garth P 4 mg, 2 [facility] 3-07 [place] mL, Route: l 20:19: IVP, Drug Lolo 00 form: INJ, Q8H, PRN Nausea & Vomiting, Start date: 12/10/12 14:19:00, Duration: 30 day, Stop date: 01/09/13 14:18:00 Zofran 2012-0 No Garth P 4 mg, 2 [facility] 3-07 [place] mL, Route: l 20:19: IVP, Drug Lolo 00 form: INJ, Q8H, PRN Nausea & Vomiting, Start date: 12/10/12 14:19:00, Duration: 30 day, Stop date: 01/09/13 14:18:00 Zofran 2012-0 No Garth P 4 mg, 2 [facility] 3-07 [place] mL, Route: l 20:19: IVP, Drug Lolo 00 form: INJ, Q8H, PRN Nausea & Vomiting, Start date: 12/10/12 14:19:00, Duration: 30 day, Stop date: 01/09/13 14:18:00 Zofran 2013-0 No Garth P 4 mg, 2 [facility] 3-07 [place] mL, Route: l 20:19: IVP, Drug Lolo 00 form: INJ, Q8H, PRN Nausea & Vomiting, Start date: 12/10/12 14:19:00, Duration: 30 day, Stop date: 01/09/13 14:18:00 Zofran 2012-0 No Garth P 4 mg, 2 [facility] 3-07 [place] mL, Route: l 20:19: IVP, Drug Lolo 00 form: INJ, Q8H, PRN Nausea & Vomiting, Start date: 12/10/12 14:19:00, Duration: 30 day, Stop date: 01/09/13 14:18:00 Zofran 2012-0 No Garth P 4 mg, 2 [facility] 3-07 [place] mL, Route: l 20:19: IVP, Drug Dipesh 00 form: INJ, Q8H, PRN Nausea & Vomiting, Start date: 12/10/12 14:19:00, Duration: 30 day, Stop date: 01/09/13 14:18:00 Zofran 2012-0 No Garth P 4 mg, 2 [facility] 3-07 [place] mL, Route: l 20:19: IVP, Drug Dipesh 00 form: INJ, Q8H, PRN Nausea & Vomiting, Start date: 12/10/12 14:19:00, Duration: 30 day, Stop date: 01/09/13 14:18:00 Zofran 2012-0 No Garth P 4 mg, 2 [facility] 3-07 [place] mL, Route: l 20:19: IVP, Drug Lolo 00 form: INJ, Q8H, PRN Nausea & Vomiting, Start date: 12/10/12 14:19:00, Duration: 30 day, Stop date: 01/09/13 14:18:00 Zofran 2012-0 No Garth P 4 mg, 2 [facility] 3-07 [place] mL, Route: l 20:19: IVP, Drug Dipesh 00 form: INJ, Q8H, PRN Nausea & Vomiting, Start date: 12/10/12 14:19:00, Duration: 30 day, Stop date: 01/09/13 14:18:00 Zofran 2012-0 No Garth P 4 mg, 2 [facility] 3-07 [place] mL, Route: l 20:19: IVP, Drug Lolo 00 form: INJ, Q8H, PRN Nausea & Vomiting, Start date: 12/10/12 14:19:00, Duration: 30 day, Stop date: 01/09/13 14:18:00 Zofran 2013-0 No Garth P 4 mg, 2 [facility] 3-07 [place] mL, Route: l 20:19: IVP, Drug Lolo 00 form: INJ, Q8H, PRN Nausea & Vomiting, Start date: 12/10/12 14:19:00, Duration: 30 day, Stop date: 01/09/13 14:18:00 Zofran 2012-0 No Garth P 4 mg, 2 [facility] 3-07 [place] mL, Route: l 20:19: IVP, Drug Lolo 00 form: INJ, Q8H, PRN Nausea & Vomiting, Start date: 12/10/12 14:19:00, Duration: 30 day, Stop date: 01/09/13 14:18:00 Zofran 2013-0 No Garth P 4 mg, 2 [facility] 3-07 [place] mL, Route: l 20:19: IVP, Drug Lolo 00 form: INJ, Q8H, PRN Nausea & Vomiting, Start date: 12/10/12 14:19:00, Duration: 30 day, Stop date: 01/09/13 14:18:00 Zofran 2012-0 No Garth P 4 mg, 2 [facility] 3-07 [place] mL, Route: l 20:19: IVP, Drug Dipesh 00 form: INJ, Q8H, PRN Nausea & Vomiting, Start date: 12/10/12 14:19:00, Duration: 30 day, Stop date: 01/09/13 14:18:00 Zofran 2012-0 No Garth P 4 mg, 2 [facility] 3-07 [place] mL, Route: l 20:19: IVP, Drug Dipesh 00 form: INJ, Q8H, PRN Nausea & Vomiting, Start date: 12/10/12 14:19:00, Duration: 30 day, Stop date: 01/09/13 14:18:00 Zofran 2013-0 No Garth P 4 mg, 2 [facility] 3-07 [place] mL, Route: l 20:19: IVP, Drug Dipesh 00 form: INJ, Q8H, PRN Nausea & Vomiting, Start date: 12/10/12 14:19:00, Duration: 30 day, Stop date: 01/09/13 14:18:00 Zofran 2012-0 No Garth P 4 mg, 2 [facility] 3-07 [place] mL, Route: l 20:19: IVP, Drug Lolo 00 form: INJ, Q8H, PRN Nausea & Vomiting, Start date: 12/10/12 14:19:00, Duration: 30 day, Stop date: 01/09/13 14:18:00 Zofran 2012-0 No Garth P 4 mg, 2 [facility] 3-07 [place] mL, Route: l 20:19: IVP, Drug Dipesh 00 form: INJ, Q8H, PRN Nausea & Vomiting, Start date: 12/10/12 14:19:00, Duration: 30 day, Stop date: 01/09/13 14:18:00 naloxone 2012-0 No Garth P 0.2 mg, [facility] 3-07 [place] 0.5 mL, l 20:18: Route: Lolo 00 IVP, Drug form: INJ, Q5Min, PRN Narcotic Reversal, Start date: 12/10/12 14:18:00, Duration: 30 day, Stop date: 01/09/13 15:17:00 Benadryl 2012-0 No Garth P 25 mg, 0.5 [facility] 3-07 [place] mL, Route: l 20:18: IVP, Drug Dipesh 00 form: INJ, Q6H, PRN Itching, Start date: 12/10/12 14:18:00, Duration: 30 day, Stop date: 01/09/13 14:17:00 naloxone 2012-0 No Garth P 0.2 mg, [facility] 3-07 [place] 0.5 mL, l 20:18: Route: Dipesh 00 IVP, Drug form: INJ, Q5Min, PRN Narcotic Reversal, Start date: 12/10/12 14:18:00, Duration: 30 day, Stop date: 01/09/13 15:17:00 Benadryl 2012-0 No Garth P 25 mg, 0.5 [facility] 3-07 [place] mL, Route: l 20:18: IVP, Drug Lolo 00 form: INJ, Q6H, PRN Itching, Start date: 12/10/12 14:18:00, Duration: 30 day, Stop date: 01/09/13 14:17:00 naloxone 2012-0 No Garth P 0.2 mg, [facility] 3-07 [place] 0.5 mL, l 20:18: Route: Dipesh 00 IVP, Drug form: INJ, Q5Min, PRN Narcotic Reversal, Start date: 12/10/12 14:18:00, Duration: 30 day, Stop date: 01/09/13 15:17:00 Benadryl 2012-0 No Garth P 25 mg, 0.5 [facility] 3-07 [place] mL, Route: l 20:18: IVP, Drug Lolo 00 form: INJ, Q6H, PRN Itching, Start date: 12/10/12 14:18:00, Duration: 30 day, Stop date: 01/09/13 14:17:00 naloxone 2012-0 No Garth P 0.2 mg, [facility] 3-07 [place] 0.5 mL, l 20:18: Route: Dipesh 00 IVP, Drug form: INJ, Q5Min, PRN Narcotic Reversal, Start date: 12/10/12 14:18:00, Duration: 30 day, Stop date: 01/09/13 15:17:00 Benadryl 2012-0 No Garth P 25 mg, 0.5 [facility] 3-07 [place] mL, Route: l 20:18: IVP, Drug Lolo 00 form: INJ, Q6H, PRN Itching, Start date: 12/10/12 14:18:00, Duration: 30 day, Stop date: 01/09/13 14:17:00 naloxone 2012-0 No Garth P 0.2 mg, [facility] 3-07 [place] 0.5 mL, l 20:18: Route: Lolo 00 IVP, Drug form: INJ, Q5Min, PRN Narcotic Reversal, Start date: 12/10/12 14:18:00, Duration: 30 day, Stop date: 01/09/13 15:17:00 Benadryl 2012-0 No Garth P 25 mg, 0.5 [facility] 3-07 [place] mL, Route: l 20:18: IVP, Drug Dipesh 00 form: INJ, Q6H, PRN Itching, Start date: 12/10/12 14:18:00, Duration: 30 day, Stop date: 01/09/13 14:17:00 naloxone 2012-0 No Garth P 0.2 mg, Mem [facility] 3-07 [place] 0.5 mL, l 20:18: Route: Dipesh 00 IVP, Drug form: INJ, Q5Min, PRN Narcotic Reversal, Start date: 12/10/12 14:18:00, Duration: 30 day, Stop date: 01/09/13 15:17:00 Benadryl 2012-0 No Garth P 25 mg, 0.5 [facility] 3-07 [place] mL, Route: l 20:18: IVP, Drug Lolo 00 form: INJ, Q6H, PRN Itching, Start date: 12/10/12 14:18:00, Duration: 30 day, Stop date: 01/09/13 14:17:00 naloxone 2012-0 No Garth P 0.2 mg, [facility] 3-07 [place] 0.5 mL, l 20:18: Route: Dipesh 00 IVP, Drug form: INJ, Q5Min, PRN Narcotic Reversal, Start date: 12/10/12 14:18:00, Duration: 30 day, Stop date: 01/09/13 15:17:00 Benadryl 2012-0 No Garth P 25 mg, 0.5 [facility] 3-07 [place] mL, Route: l 20:18: IVP, Drug Dipesh 00 form: INJ, Q6H, PRN Itching, Start date: 12/10/12 14:18:00, Duration: 30 day, Stop date: 01/09/13 14:17:00 naloxone 2012-0 No Garth P 0.2 mg, [facility] 3-07 [place] 0.5 mL, l 20:18: Route: Lolo 00 IVP, Drug form: INJ, Q5Min, PRN Narcotic Reversal, Start date: 12/10/12 14:18:00, Duration: 30 day, Stop date: 01/09/13 15:17:00 Benadryl 2012-0 No Garth P 25 mg, 0.5 [facility] 3-07 [place] mL, Route: l 20:18: IVP, Drug Dipesh 00 form: INJ, Q6H, PRN Itching, Start date: 12/10/12 14:18:00, Duration: 30 day, Stop date: 01/09/13 14:17:00 naloxone 2012-0 No Garth P 0.2 mg, [facility] 3-07 [place] 0.5 mL, l 20:18: Route: Dipesh 00 IVP, Drug form: INJ, Q5Min, PRN Narcotic Reversal, Start date: 12/10/12 14:18:00, Duration: 30 day, Stop date: 01/09/13 15:17:00 Benadryl 2012-0 No Garth P 25 mg, 0.5 [facility] 3-07 [place] mL, Route: l 20:18: IVP, Drug Dipesh 00 form: INJ, Q6H, PRN Itching, Start date: 12/10/12 14:18:00, Duration: 30 day, Stop date: 01/09/13 14:17:00 naloxone 2012-0 No Garth P 0.2 mg, [facility] 3-07 [place] 0.5 mL, l 20:18: Route: Lolo 00 IVP, Drug form: INJ, Q5Min, PRN Narcotic Reversal, Start date: 12/10/12 14:18:00, Duration: 30 day, Stop date: 01/09/13 15:17:00 Benadryl 2012-0 No Garth P 25 mg, 0.5 [facility] 3-07 [place] mL, Route: l 20:18: IVP, Drug Lolo form: INJ, Q6H, PRN Itching, Start date: 12/10/12 14:18:00, Duration: 30 day, Stop date: 01/09/13 14:17:00 naloxone 2012-0 No Garth P 0.2 mg, [facility] 3-07 [place] 0.5 mL, l 20:18: Route: Lolo 00 IVP, Drug form: INJ, Q5Min, PRN Narcotic Reversal, Start date: 12/10/12 14:18:00, Duration: 30 day, Stop date: 01/09/13 15:17:00 Benadryl 2012-0 No Garth P 25 mg, 0.5 [facility] 3-07 [place] mL, Route: l 20:18: IVP, Drug Lolo 00 form: INJ, Q6H, PRN Itching, Start date: 12/10/12 14:18:00, Duration: 30 day, Stop date: 01/09/13 14:17:00 naloxone 2012-0 No Garth P 0.2 mg, [facility] 3-07 [place] 0.5 mL, l 20:18: Route: Dipesh 00 IVP, Drug form: INJ, Q5Min, PRN Narcotic Reversal, Start date: 12/10/12 14:18:00, Duration: 30 day, Stop date: 01/09/13 15:17:00 Benadryl 2012-0 No Garth P 25 mg, 0.5 [facility] 3-07 [place] mL, Route: l 20:18: IVP, Drug Dipesh form: INJ, Q6H, PRN Itching, Start date: 12/10/12 14:18:00, Duration: 30 day, Stop date: 01/09/13 14:17:00 naloxone 2012-0 No Garth P 0.2 mg, [facility] 3-07 [place] 0.5 mL, l 20:18: Route: Lolo 00 IVP, Drug form: INJ, Q5Min, PRN Narcotic Reversal, Start date: 12/10/12 14:18:00, Duration: 30 day, Stop date: 01/09/13 15:17:00 Benadryl 2012-0 No Garth P 25 mg, 0.5 [facility] 3-07 [place] mL, Route: l 20:18: IVP, Drug Dipesh 00 form: INJ, Q6H, PRN Itching, Start date: 12/10/12 14:18:00, Duration: 30 day, Stop date: 01/09/13 14:17:00 naloxone 2012-0 No Garth P 0.2 mg, [facility] 3-07 [place] 0.5 mL, l 20:18: Route: Dipesh 00 IVP, Drug form: INJ, Q5Min, PRN Narcotic Reversal, Start date: 12/10/12 14:18:00, Duration: 30 day, Stop date: 01/09/13 15:17:00 Benadryl 2012-0 No Garth P 25 mg, 0.5 [facility] 3-07 [place] mL, Route: l 20:18: IVP, Drug Dipesh 00 form: INJ, Q6H, PRN Itching, Start date: 12/10/12 14:18:00, Duration: 30 day, Stop date: 01/09/13 14:17:00 naloxone 2012-0 No Garth P 0.2 mg, [facility] 3-07 [place] 0.5 mL, l 20:18: Route: Lolo 00 IVP, Drug form: INJ, Q5Min, PRN Narcotic Reversal, Start date: 12/10/12 14:18:00, Duration: 30 day, Stop date: 01/09/13 15:17:00 Benadryl 2012-0 No Garth P 25 mg, 0.5 [facility] 3-07 [place] mL, Route: l 20:18: IVP, Drug Dipesh 00 form: INJ, Q6H, PRN Itching, Start date: 12/10/12 14:18:00, Duration: 30 day, Stop date: 01/09/13 14:17:00 naloxone 2012-0 No Garth P 0.2 mg, [facility] 3-07 [place] 0.5 mL, l 20:18: Route: Dipesh 00 IVP, Drug form: INJ, Q5Min, PRN Narcotic Reversal, Start date: 12/10/12 14:18:00, Duration: 30 day, Stop date: 01/09/13 15:17:00 Benadryl 2012-0 No Garth P 25 mg, 0.5 [facility] 3-07 [place] mL, Route: l 20:18: IVP, Drug Dipesh form: INJ, Q6H, PRN Itching, Start date: 12/10/12 14:18:00, Duration: 30 day, Stop date: 01/09/13 14:17:00 naloxone 2012-0 No Garth P 0.2 mg, [facility] 3-07 [place] 0.5 mL, l 20:18: Route: Lolo 00 IVP, Drug form: INJ, Q5Min, PRN Narcotic Reversal, Start date: 12/10/12 14:18:00, Duration: 30 day, Stop date: 01/09/13 15:17:00 Benadryl 2012-0 No Garth P 25 mg, 0.5 [facility] 3-07 [place] mL, Route: l 20:18: IVP, Drug Dipesh 00 form: INJ, Q6H, PRN Itching, Start date: 12/10/12 14:18:00, Duration: 30 day, Stop date: 01/09/13 14:17:00 naloxone 2012-0 No Garth P 0.2 mg, [facility] 3-07 [place] 0.5 mL, l 20:18: Route: Lolo 00 IVP, Drug form: INJ, Q5Min, PRN Narcotic Reversal, Start date: 12/10/12 14:18:00, Duration: 30 day, Stop date: 01/09/13 15:17:00 Benadryl 2012-0 No Garth P 25 mg, 0.5 [facility] 3-07 [place] mL, Route: l 20:18: IVP, Drug Lolo form: INJ, Q6H, PRN Itching, Start date: 12/10/12 14:18:00, Duration: 30 day, Stop date: 01/09/13 14:17:00 naloxone 2012-0 No Garth P 0.2 mg, [facility] 3-07 [place] 0.5 mL, l 20:18: Route: Dipesh 00 IVP, Drug form: INJ, Q5Min, PRN Narcotic Reversal, Start date: 12/10/12 14:18:00, Duration: 30 day, Stop date: 01/09/13 15:17:00 Benadryl 2012-0 No Garth P 25 mg, 0.5 [facility] 3-07 [place] mL, Route: l 20:18: IVP, Drug Lolo 00 form: INJ, Q6H, PRN Itching, Start date: 12/10/12 14:18:00, Duration: 30 day, Stop date: 01/09/13 14:17:00 naloxone 2012-0 No Garth P 0.2 mg, [facility] 3-07 [place] 0.5 mL, l 20:18: Route: Lolo 00 IVP, Drug form: INJ, Q5Min, PRN Narcotic Reversal, Start date: 12/10/12 14:18:00, Duration: 30 day, Stop date: 01/09/13 15:17:00 Benadryl 2012-0 No Garth P 25 mg, 0.5 [facility] 3-07 [place] mL, Route: l 20:18: IVP, Drug Lolo 00 form: INJ, Q6H, PRN Itching, Start date: 12/10/12 14:18:00, Duration: 30 day, Stop date: 01/09/13 14:17:00 naloxone 2012-0 No Garth P 0.2 mg, [facility] 3-07 [place] 0.5 mL, l 20:18: Route: Dipesh 00 IVP, Drug form: INJ, Q5Min, PRN Narcotic Reversal, Start date: 12/10/12 14:18:00, Duration: 30 day, Stop date: 01/09/13 15:17:00 Benadryl 2012-0 No Garth P 25 mg, 0.5 [facility] 3-07 [place] mL, Route: l 20:18: IVP, Drug Dipesh 00 form: INJ, Q6H, PRN Itching, Start date: 12/10/12 14:18:00, Duration: 30 day, Stop date: 01/09/13 14:17:00 naloxone 2012-0 No Garth P 0.2 mg, [facility] 3-07 [place] 0.5 mL, l 20:18: Route: Lolo 00 IVP, Drug form: INJ, Q5Min, PRN Narcotic Reversal, Start date: 12/10/12 14:18:00, Duration: 30 day, Stop date: 01/09/13 15:17:00 Benadryl 2012-0 No Garth P 25 mg, 0.5 [facility] 3-07 [place] mL, Route: l 20:18: IVP, Drug Dipesh 00 form: INJ, Q6H, PRN Itching, Start date: 12/10/12 14:18:00, Duration: 30 day, Stop date: 01/09/13 14:17:00 naloxone 2012-0 No Garth P 0.2 mg, [facility] 3-07 [place] 0.5 mL, l 20:18: Route: Dipesh 00 IVP, Drug form: INJ, Q5Min, PRN Narcotic Reversal, Start date: 12/10/12 14:18:00, Duration: 30 day, Stop date: 01/09/13 15:17:00 Benadryl 2012-0 No Garth P 25 mg, 0.5 [facility] 3-07 [place] mL, Route: l 20:18: IVP, Drug Dipesh 00 form: INJ, Q6H, PRN Itching, Start date: 12/10/12 14:18:00, Duration: 30 day, Stop date: 01/09/13 14:17:00 naloxone 2012-0 No Garth P 0.2 mg, [facility] 3-07 [place] 0.5 mL, l 20:18: Route: Lolo 00 IVP, Drug form: INJ, Q5Min, PRN Narcotic Reversal, Start date: 12/10/12 14:18:00, Duration: 30 day, Stop date: 01/09/13 15:17:00 Benadryl 2012-0 No Garth P 25 mg, 0.5 [facility] 3-07 [place] mL, Route: l 20:18: IVP, Drug Lolo 00 form: INJ, Q6H, PRN Itching, Start date: 12/10/12 14:18:00, Duration: 30 day, Stop date: 01/09/13 14:17:00 naloxone 0 No Garth P 0.2 mg, [facility] 3-07 [place] 0.5 mL, l 20:18: Route: Dipesh 00 IVP, Drug form: INJ, Q5Min, PRN Narcotic Reversal, Start date: 12/10/12 14:18:00, Duration: 30 day, Stop date: 01/09/13 15:17:00 Benadryl 0 No Garth P 25 mg, 0.5 [facility] 3-07 [place] mL, Route: l 20:18: IVP, Drug Dipesh 00 form: INJ, Q6H, PRN Itching, Start date: 12/10/12 14:18:00, Duration: 30 day, Stop date: 01/09/13 14:17:00 naloxone 2012-0 No Garth P 0.2 mg, [facility] 3-07 [place] 0.5 mL, l 20:18: Route: Dipesh 00 IVP, Drug form: INJ, Q5Min, PRN Narcotic Reversal, Start date: 12/10/12 14:18:00, Duration: 30 day, Stop date: 01/09/13 15:17:00 Benadryl 2012-0 No Garth P 25 mg, 0.5 [facility] 3-07 [place] mL, Route: l 20:18: IVP, Drug Lolo 00 form: INJ, Q6H, PRN Itching, Start date: 12/10/12 14:18:00, Duration: 30 day, Stop date: 01/09/13 14:17:00 naloxone 2012-0 No Garth P 0.2 mg, [facility] 3-07 [place] 0.5 mL, l 20:18: Route: Dipesh 00 IVP, Drug form: INJ, Q5Min, PRN Narcotic Reversal, Start date: 12/10/12 14:18:00, Duration: 30 day, Stop date: 01/09/13 15:17:00 Benadryl 2012-0 No Garth P 25 mg, 0.5 [facility] 3-07 [place] mL, Route: l 20:18: IVP, Drug Lolo form: INJ, Q6H, PRN Itching, Start date: 12/10/12 14:18:00, Duration: 30 day, Stop date: 01/09/13 14:17:00 naloxone 2012-0 No Garth P 0.2 mg, [facility] 3-07 [place] 0.5 mL, l 20:18: Route: Dipesh 00 IVP, Drug form: INJ, Q5Min, PRN Narcotic Reversal, Start date: 12/10/12 14:18:00, Duration: 30 day, Stop date: 01/09/13 15:17:00 Benadryl 2012-0 No Garth P 25 mg, 0.5 [facility] 3-07 [place] mL, Route: l 20:18: IVP, Drug Dipesh 00 form: INJ, Q6H, PRN Itching, Start date: 12/10/12 14:18:00, Duration: 30 day, Stop date: 01/09/13 14:17:00 naloxone 2012-0 No Garth P 0.2 mg, [facility] 3-07 [place] 0.5 mL, l 20:18: Route: Dipesh 00 IVP, Drug form: INJ, Q5Min, PRN Narcotic Reversal, Start date: 12/10/12 14:18:00, Duration: 30 day, Stop date: 01/09/13 15:17:00 Benadryl 2012-0 No Garth P 25 mg, 0.5 [facility] 3-07 [place] mL, Route: l 20:18: IVP, Drug Dipesh 00 form: INJ, Q6H, PRN Itching, Start date: 12/10/12 14:18:00, Duration: 30 day, Stop date: 01/09/13 14:17:00 naloxone 2012-0 No Garth P 0.2 mg, [facility] 3-07 [place] 0.5 mL, l 20:18: Route: Lolo 00 IVP, Drug form: INJ, Q5Min, PRN Narcotic Reversal, Start date: 12/10/12 14:18:00, Duration: 30 day, Stop date: 01/09/13 15:17:00 Benadryl 2012-0 No Garth P 25 mg, 0.5 [facility] 3-07 [place] mL, Route: l 20:18: IVP, Drug Dipesh 00 form: INJ, Q6H, PRN Itching, Start date: 12/10/12 14:18:00, Duration: 30 day, Stop date: 01/09/13 14:17:00 naloxone 2012-0 No Garth P 0.2 mg, [facility] 3-07 [place] 0.5 mL, l 20:18: Route: Lolo 00 IVP, Drug form: INJ, Q5Min, PRN Narcotic Reversal, Start date: 12/10/12 14:18:00, Duration: 30 day, Stop date: 01/09/13 15:17:00 Benadryl 2012-0 No Garth P 25 mg, 0.5 [facility] 3-07 [place] mL, Route: l 20:18: IVP, Drug Lolo 00 form: INJ, Q6H, PRN Itching, Start date: 12/10/12 14:18:00, Duration: 30 day, Stop date: 01/09/13 14:17:00 naloxone 2012-0 No Garth P 0.2 mg, [facility] 3-07 [place] 0.5 mL, l 20:18: Route: Lolo 00 IVP, Drug form: INJ, Q5Min, PRN Narcotic Reversal, Start date: 12/10/12 14:18:00, Duration: 30 day, Stop date: 01/09/13 15:17:00 Benadryl 2012-0 No Garth P 25 mg, 0.5 [facility] 3-07 [place] mL, Route: l 20:18: IVP, Drug Lolo 00 form: INJ, Q6H, PRN Itching, Start date: 12/10/12 14:18:00, Duration: 30 day, Stop date: 01/09/13 14:17:00 naloxone 2012-0 No Garth P 0.2 mg, [facility] 3-07 [place] 0.5 mL, l 20:18: Route: Lolo 00 IVP, Drug form: INJ, Q5Min, PRN Narcotic Reversal, Start date: 12/10/12 14:18:00, Duration: 30 day, Stop date: 01/09/13 15:17:00 Benadryl 2012-0 No Garth P 25 mg, 0.5 [facility] 3-07 [place] mL, Route: l 20:18: IVP, Drug Lolo 00 form: INJ, Q6H, PRN Itching, Start date: 12/10/12 14:18:00, Duration: 30 day, Stop date: 01/09/13 14:17:00 naloxone 2012-0 No Garth P 0.2 mg, Mem [facility] 3-07 [place] 0.5 mL, l 20:18: Route: Lolo 00 IVP, Drug form: INJ, Q5Min, PRN Narcotic Reversal, Start date: 12/10/12 14:18:00, Duration: 30 day, Stop date: 01/09/13 15:17:00 Benadryl 2012-0 No Garth P 25 mg, 0.5 [facility] 3-07 [place] mL, Route: l 20:18: IVP, Drug Dipesh 00 form: INJ, Q6H, PRN Itching, Start date: 12/10/12 14:18:00, Duration: 30 day, Stop date: 01/09/13 14:17:00 naloxone 2012-0 No Garth P 0.2 mg, [facility] 3-07 [place] 0.5 mL, l 20:18: Route: Dipesh 00 IVP, Drug form: INJ, Q5Min, PRN Narcotic Reversal, Start date: 12/10/12 14:18:00, Duration: 30 day, Stop date: 01/09/13 15:17:00 Benadryl 2012-0 No Garth P 25 mg, 0.5 [facility] 3-07 [place] mL, Route: l 20:18: IVP, Drug Lolo 00 form: INJ, Q6H, PRN Itching, Start date: 12/10/12 14:18:00, Duration: 30 day, Stop date: 01/09/13 14:17:00 naloxone 2012-0 No Garth P 0.2 mg, Mem [facility] 3-07 [place] 0.5 mL, l 20:18: Route: Lolo 00 IVP, Drug form: INJ, Q5Min, PRN Narcotic Reversal, Start date: 12/10/12 14:18:00, Duration: 30 day, Stop date: 01/09/13 15:17:00 Benadryl 2012-0 No Garth P 25 mg, 0.5 [facility] 3-07 [place] mL, Route: l 20:18: IVP, Drug Dipesh 00 form: INJ, Q6H, PRN Itching, Start date: 12/10/12 14:18:00, Duration: 30 day, Stop date: 01/09/13 14:17:00 naloxone 2012-0 No Garth P 0.2 mg, [facility] 3-07 [place] 0.5 mL, l 20:18: Route: Dipesh 00 IVP, Drug form: INJ, Q5Min, PRN Narcotic Reversal, Start date: 12/10/12 14:18:00, Duration: 30 day, Stop date: 01/09/13 15:17:00 Benadryl 2012-0 No Garth P 25 mg, 0.5 [facility] 3-07 [place] mL, Route: l 20:18: IVP, Drug Dipesh 00 form: INJ, Q6H, PRN Itching, Start date: 12/10/12 14:18:00, Duration: 30 day, Stop date: 01/09/13 14:17:00 naloxone 2012-0 No Garth P 0.2 mg, [facility] 3-07 [place] 0.5 mL, l 20:18: Route: Dipesh 00 IVP, Drug form: INJ, Q5Min, PRN Narcotic Reversal, Start date: 12/10/12 14:18:00, Duration: 30 day, Stop date: 01/09/13 15:17:00 Benadryl 2012-0 No Garth P 25 mg, 0.5 [facility] 3-07 [place] mL, Route: l 20:18: IVP, Drug Lolo 00 form: INJ, Q6H, PRN Itching, Start date: 12/10/12 14:18:00, Duration: 30 day, Stop date: 01/09/13 14:17:00 naloxone 2012-0 No Garth P 0.2 mg, [facility] 3-07 [place] 0.5 mL, l 20:18: Route: Dipesh 00 IVP, Drug form: INJ, Q5Min, PRN Narcotic Reversal, Start date: 12/10/12 14:18:00, Duration: 30 day, Stop date: 01/09/13 15:17:00 Benadryl 2012-0 No Garth P 25 mg, 0.5 [facility] 3-07 [place] mL, Route: l 20:18: IVP, Drug Dipesh 00 form: INJ, Q6H, PRN Itching, Start date: 12/10/12 14:18:00, Duration: 30 day, Stop date: 01/09/13 14:17:00 naloxone 2012-0 No Garth P 0.2 mg, [facility] 3-07 [place] 0.5 mL, l 20:18: Route: Lolo 00 IVP, Drug form: INJ, Q5Min, PRN Narcotic Reversal, Start date: 12/10/12 14:18:00, Duration: 30 day, Stop date: 01/09/13 15:17:00 Benadryl 2012-0 No Garth P 25 mg, 0.5 [facility] 3-07 [place] mL, Route: l 20:18: IVP, Drug Lolo 00 form: INJ, Q6H, PRN Itching, Start date: 12/10/12 14:18:00, Duration: 30 day, Stop date: 01/09/13 14:17:00 naloxone 2012-0 No Garth P 0.2 mg, [facility] 3-07 [place] 0.5 mL, l 20:18: Route: Dipesh 00 IVP, Drug form: INJ, Q5Min, PRN Narcotic Reversal, Start date: 12/10/12 14:18:00, Duration: 30 day, Stop date: 01/09/13 15:17:00 Benadryl 2012-0 No Garth P 25 mg, 0.5 [facility] 3-07 [place] mL, Route: l 20:18: IVP, Drug Dipesh 00 form: INJ, Q6H, PRN Itching, Start date: 12/10/12 14:18:00, Duration: 30 day, Stop date: 01/09/13 14:17:00 naloxone 2012-0 No Garth P 0.2 mg, [facility] 3-07 [place] 0.5 mL, l 20:18: Route: Lolo 00 IVP, Drug form: INJ, Q5Min, PRN Narcotic Reversal, Start date: 12/10/12 14:18:00, Duration: 30 day, Stop date: 01/09/13 15:17:00 Benadryl 2012-0 No Garth P 25 mg, 0.5 [facility] 3-07 [place] mL, Route: l 20:18: IVP, Drug Dipesh 00 form: INJ, Q6H, PRN Itching, Start date: 12/10/12 14:18:00, Duration: 30 day, Stop date: 01/09/13 14:17:00 naloxone 2012-0 No Garth P 0.2 mg, [facility] 3-07 [place] 0.5 mL, l 20:18: Route: Dipesh 00 IVP, Drug form: INJ, Q5Min, PRN Narcotic Reversal, Start date: 12/10/12 14:18:00, Duration: 30 day, Stop date: 01/09/13 15:17:00 Benadryl 2012-0 No Garth P 25 mg, 0.5 [facility] 3-07 [place] mL, Route: l 20:18: IVP, Drug Lolo 00 form: INJ, Q6H, PRN Itching, Start date: 12/10/12 14:18:00, Duration: 30 day, Stop date: 01/09/13 14:17:00 naloxone 2012-0 No Garth P 0.2 mg, [facility] 3-07 [place] 0.5 mL, l 20:18: Route: Lolo 00 IVP, Drug form: INJ, Q5Min, PRN Narcotic Reversal, Start date: 12/10/12 14:18:00, Duration: 30 day, Stop date: 01/09/13 15:17:00 Benadryl 2012-0 No Garth P 25 mg, 0.5 [facility] 3-07 [place] mL, Route: l 20:18: IVP, Drug Lolo 00 form: INJ, Q6H, PRN Itching, Start date: 12/10/12 14:18:00, Duration: 30 day, Stop date: 01/09/13 14:17:00 naloxone 2012-0 No Garth P 0.2 mg, [facility] 3-07 [place] 0.5 mL, l 20:18: Route: Dipesh 00 IVP, Drug form: INJ, Q5Min, PRN Narcotic Reversal, Start date: 12/10/12 14:18:00, Duration: 30 day, Stop date: 01/09/13 15:17:00 Benadryl 2012-0 No Garth P 25 mg, 0.5 [facility] 3-07 [place] mL, Route: l 20:18: IVP, Drug Dipehs 00 form: INJ, Q6H, PRN Itching, Start date: 12/10/12 14:18:00, Duration: 30 day, Stop date: 01/09/13 14:17:00 naloxone 2012-0 No Garth P 0.2 mg, [facility] 3-07 [place] 0.5 mL, l 20:18: Route: Lolo 00 IVP, Drug form: INJ, Q5Min, PRN Narcotic Reversal, Start date: 12/10/12 14:18:00, Duration: 30 day, Stop date: 01/09/13 15:17:00 Benadryl 2012-0 No Garth P 25 mg, 0.5 [facility] 3-07 [place] mL, Route: l 20:18: IVP, Drug Dipesh 00 form: INJ, Q6H, PRN Itching, Start date: 12/10/12 14:18:00, Duration: 30 day, Stop date: 01/09/13 14:17:00 naloxone 2012-0 No Garth P 0.2 mg, [facility] 3-07 [place] 0.5 mL, l 20:18: Route: Lolo 00 IVP, Drug form: INJ, Q5Min, PRN Narcotic Reversal, Start date: 12/10/12 14:18:00, Duration: 30 day, Stop date: 01/09/13 15:17:00 Benadryl 2012-0 No Garth P 25 mg, 0.5 [facility] 3-07 [place] mL, Route: l 20:18: IVP, Drug Dipesh 00 form: INJ, Q6H, PRN Itching, Start date: 12/10/12 14:18:00, Duration: 30 day, Stop date: 01/09/13 14:17:00 naloxone 2012-0 No Garth P 0.2 mg, [facility] 3-07 [place] 0.5 mL, l 20:18: Route: Dipesh 00 IVP, Drug form: INJ, Q5Min, PRN Narcotic Reversal, Start date: 12/10/12 14:18:00, Duration: 30 day, Stop date: 01/09/13 15:17:00 Benadryl 2012-0 No Garth P 25 mg, 0.5 [facility] 3-07 [place] mL, Route: l 20:18: IVP, Drug Lolo 00 form: INJ, Q6H, PRN Itching, Start date: 12/10/12 14:18:00, Duration: 30 day, Stop date: 01/09/13 14:17:00 naloxone 2012-0 No Garth P 0.2 mg, [facility] 3-07 [place] 0.5 mL, l 20:18: Route: Dipesh 00 IVP, Drug form: INJ, Q5Min, PRN Narcotic Reversal, Start date: 12/10/12 14:18:00, Duration: 30 day, Stop date: 01/09/13 15:17:00 Benadryl 2012-0 No Garth P 25 mg, 0.5 [facility] 3-07 [place] mL, Route: l 20:18: IVP, Drug Lolo 00 form: INJ, Q6H, PRN Itching, Start date: 12/10/12 14:18:00, Duration: 30 day, Stop date: 01/09/13 14:17:00 naloxone 2012-0 No Garth P 0.2 mg, [facility] 3-07 [place] 0.5 mL, l 20:18: Route: Lolo 00 IVP, Drug form: INJ, Q5Min, PRN Narcotic Reversal, Start date: 12/10/12 14:18:00, Duration: 30 day, Stop date: 01/09/13 15:17:00 Benadryl 2012-0 No Garth P 25 mg, 0.5 [facility] 3-07 Gabriele mL, Route: l 20:18: IVP, Drug Lolo 00 form: INJ, Q6H, PRN Itching, Start date: 12/10/12 14:18:00, Duration: 30 day, Stop date: 01/09/13 14:17:00 naloxone 2012-0 No Garth P 0.2 mg, Mem oria 3-07 Gabriele 0.5 mL, l 20:18: Route: Lolo 00 IVP, Drug form: INJ, Q5Min, PRN Narcotic Reversal, Start date: 12/10/12 14:18:00, Duration: 30 day, Stop date: 01/09/13 15:17:00 Benadryl 2012-0 No Garth P 25 mg, 0.5 Memoria 3-07 [place]rie[place] mL, Route: l 20:18: IVP, Drug Lolo 00 form: INJ, Q6H, PRN Itching, Start date: 12/10/12 14:18:00, Duration: 30 day, Stop date: 01/09/13 14:17:00 naloxone 2012-0 No Garth P 0.2 mg, Mem oria 3-07 Gabriele 0.5 mL, l 20:18: Route: Lolo 00 IVP, Drug form: INJ, Q5Min, PRN Narcotic Reversal, Start date: 12/10/12 14:18:00, Duration: 30 day, Stop date: 01/09/13 15:17:00 Benadryl 2012-0 No Garth P 25 mg, 0.5 Memoria 3-07 [place]rie[place] mL, Route: l 20:18: IVP, Drug Lolo 00 form: INJ, Q6H, PRN Itching, Start date: 12/10/12 14:18:00, Duration: 30 day, Stop date: 01/09/13 14:17:00 naloxone 2012-0 No Garth P 0.2 mg, Mem oria 3-07 Gabriele 0.5 mL, l 20:18: Route: Dipesh 00 IVP, Drug form: INJ, Q5Min, PRN Narcotic Reversal, Start date: 12/10/12 14:18:00, Duration: 30 day, Stop date: 01/09/13 15:17:00 Benadryl 2012-0 No Garth P 25 mg, 0.5 Memoria 3-07 [place] mL, Route: l 20:18: IVP, Drug Lolo 00 form: INJ, Q6H, PRN Itching, Start date: 12/10/12 14:18:00, Duration: 30 day, Stop date: 01/09/13 14:17:00 naloxone 2012-0 No Garth P 0.2 mg, Mem oria 3-07 Gabriele 0.5 mL, l 20:18: Route: Lolo 00 IVP, Drug form: INJ, Q5Min, PRN Narcotic Reversal, Start date: 12/10/12 14:18:00, Duration: 30 day, Stop date: 01/09/13 15:17:00 Benadryl 2012-0 No Garth P 25 mg, 0.5 Memoria 3-07 [place] mL, Route: l 20:18: IVP, Drug Lolo 00 form: INJ, Q6H, PRN Itching, Start date: 12/10/12 14:18:00, Duration: 30 day, Stop date: 01/09/13 14:17:00 naloxone 2012-0 No Garth P 0.2 mg, Mem oria 3-07 Gabriele 0.5 mL, l 20:18: Route: Lolo 00 IVP, Drug form: INJ, Q5Min, PRN Narcotic Reversal, Start date: 12/10/12 14:18:00, Duration: 30 day, Stop date: 01/09/13 15:17:00 Benadryl 2012-0 No Garth P 25 mg, 0.5 Memoria 3-07 [place] mL, Route: l 20:18: IVP, Drug Dipesh 00 form: INJ, Q6H, PRN Itching, Start date: 12/10/12 14:18:00, Duration: 30 day, Stop date: 01/09/13 14:17:00 naloxone 2012-0 No Garth P 0.2 mg, Mem oria 3-07 Gabriele 0.5 mL, l 20:18: Route: Lolo 00 IVP, Drug form: INJ, Q5Min, PRN Narcotic Reversal, Start date: 12/10/12 14:18:00, Duration: 30 day, Stop date: 01/09/13 15:17:00 Benadryl 2012-0 No Garth P 25 mg, 0.5 Memoria 3-07 [place] mL, Route: l 20:18: IVP, Drug Lolo 00 form: INJ, Q6H, PRN Itching, Start date: 12/10/12 14:18:00, Duration: 30 day, Stop date: 01/09/13 14:17:00 naloxone 2012-0 No Garth P 0.2 mg, Mem oria 3-07 Gabriele 0.5 mL, l 20:18: Route: Dipesh 00 IVP, Drug form: INJ, Q5Min, PRN Narcotic Reversal, Start date: 12/10/12 14:18:00, Duration: 30 day, Stop date: 01/09/13 15:17:00 Benadryl 2012-0 No Garth P 25 mg, 0.5 Memoria 3-07 [place]rie[place] mL, Route: l 20:18: IVP, Drug form: INJ, Q6H, PRN Itching, Start date: 12/10/12 14:18:00, Duration: 30 day, Stop date: 01/09/13 14:17:00 morphine 0 No Garth P IV, Start M emoria Sulfate 30 12-10 Gabriele date: l mg 20:17: 12/10/12 Lolo 00 14:17:00, Duration: 30, 30 ml, 136.364 morphine 0 No Garth P IV, Start M emoria Sulfate 30 3 [place]le date: l mg 20:17: 12/10/12 Dipesh 00 14:17:00, Duration: 30, 30 ml, 136.364 morphine 2012-0 No Garth P IV, Start M emoria Sulfate 30 3 [place] date: l mg 20:17: 12/10/12 Lolo 00 14:17:00, Duration: 30, 30 ml, 136.364 morphine 0 No Garth P IV, Start M emoria Sulfate 30 3- Gabriele date: l mg 20:: 12/10/12 14:17:00, Duration: 30, 30 ml, 136.364 morphine No Garth P IV, Start M emoria Sulfate 30 12-10 [place]riele date: l mg 20:: 12/10/12 14:17:00, Duration: 30, 30 ml, 136.364 morphine No Garth P IV, Start M emoria Sulfate 30 12-10 [place]le date: l mg 20:: 12/10/12 14:17:00, Duration: 30, 30 ml, 136.364 morphine No Garth P IV, Start M emoria Sulfate 30 12-10 [place]le date: l mg 20:: 12/10/12 14:17:00, Duration: 30, 30 ml, 136.364 morphine No Garth P IV, Start M emoria Sulfate 30 12-10 date: l mg 20:: 12/10/12 14:17:00, Duration: 30, 30 ml, 136.364 morphine No Garth P IV, Start M emoria Sulfate 30 12-10 date: l mg 20:: 12/10/12 14:17:00, Duration: 30, 30 ml, 136.364 morphine No Garth P IV, Start M emoria Sulfate 30 12-10 [place] date: l mg 20:: 12/10/12 14:17:00, Duration: 30, 30 ml, 136.364 morphine No Garth P IV, Start M emoria Sulfate 30 12-10 [place]le date: l mg 20:: 12/10/12 14:17:00, Duration: 30, 30 ml, 136.364 morphine No Garth P IV, Start M emoria Sulfate 30 12-10 [place]le date: l mg 20:: 12/10/12 14:17:00, Duration: 30, 30 ml, 136.364 morphine No Garth P IV, Start M emoria Sulfate 30 12-10 [place]le date: l mg 20:: 12/10/12 14:17:00, Duration: 30, 30 ml, 136.364 morphine No Garth P IV, Start M emoria Sulfate 30 3- Gabriele date: l mg 20:: 12/10/12 14:17:00, Duration: 30, 30 ml, 136.364 morphine 2012- No Garth P IV, Start M emoria Sulfate 30 3 Gabriele date: l mg 20:: 12/10/12 14:17:00, Duration: 30, 30 ml, 136.364 morphine No Garth P IV, Start M emoria Sulfate 30 3 Gabriele date: l mg 20:: 12/10/12 14:17:00, Duration: 30, 30 ml, 136.364 morphine No Garth P IV, Start M emoria Sulfate 30 3- Gabriele date: l mg 20:: 12/10/12 14:17:00, Duration: 30, 30 ml, 136.364 morphine No Garth P IV, Start M emoria Sulfate 30 12-10 [place]riele date: l mg 20:: 12/10/12 14:17:00, Duration: 30, 30 ml, 136.364 morphine No Garth P IV, Start M emoria Sulfate 30 3 Gab[place]le date: l mg 20:: 12/10/12 14:17:00, Duration: 30, 30 ml, 136.364 morphine No Garth P IV, Start M emoria Sulfate 30 12-10 [place]riele date: l mg 20:: 12/10/12 14:17:00, Duration: 30, 30 ml, 136.364 morphine No Garth P IV, Start M emoria Sulfate 30 3- Gabriele date: l mg 20:: 12/10/12 14:17:00, Duration: 30, 30 ml, 136.364 morphine 2012-0 No Garth P IV, Start M emoria Sulfate 30 3- Gabriele date: l mg 20:: 12/10/12 14:17:00, Duration: 30, 30 ml, 136.364 morphine 2012-0 No Garth P IV, Start M emoria Sulfate 30 3-07 Gabriele date: l mg 20:17: 12/10/12 14:17:00, Duration: 30, 30 ml, 136.364 morphine 2012- No Garth P IV, Start M emoria Sulfate 30 12-10 [place]riele date: l mg 20:: 12/10/12 14:17:00, Duration: 30, 30 ml, 136.364 morphine No Garth P IV, Start M emoria Sulfate 30 12-10 [place]le date: l mg 20:: 12/10/12 14:17:00, Duration: 30, 30 ml, 136.364 morphine No Garth P IV, Start M emoria Sulfate 30 12-10 [place]le date: l mg 20:: 12/10/12 14:17:00, Duration: 30, 30 ml, 136.364 morphine No Garth P IV, Start M emoria Sulfate 30 12-10 date: l mg 20:: 12/10/12 14:17:00, Duration: 30, 30 ml, 136.364 morphine No Garth P IV, Start M emoria Sulfate 30 12-10 [place]le date: l mg 20:: 12/10/12 14:17:00, Duration: 30, 30 ml, 136.364 morphine No Garth P IV, Start M emoria Sulfate 30 12-10 [place]le date: l mg 20:: 12/10/12 14:17:00, Duration: 30, 30 ml, 136.364 morphine No Garth P IV, Start M emoria Sulfate 30 12-10 [place]le date: l mg 20:: 12/10/12 14:17:00, Duration: 30, 30 ml, 136.364 morphine 2012- No Garth P IV, Start M emoria Sulfate 30 12-10 [place]riele date: l mg 20:: 12/10/12 14:17:00, Duration: 30, 30 ml, 136.364 morphine No Garth P IV, Start M emoria Sulfate 30 12-10 [place]le date: l mg 20:: 12/10/12 14:17:00, Duration: 30, 30 ml, 136.364 morphine 2012- No Garth P IV, Start M emoria Sulfate 30 3 [place]le date: l mg 20:: 12/10/12 14:17:00, Duration: 30, 30 ml, 136.364 morphine 2012- No Garth P IV, Start M emoria Sulfate 30 12-10 [place]le date: l mg 20:: 12/10/12 14:17:00, Duration: 30, 30 ml, 136.364 morphine No Garth P IV, Start M emoria Sulfate 30 12-10 [place]riele date: l mg 20:: 12/10/12 14:17:00, Duration: 30, 30 ml, 136.364 morphine 2012- No Garth P IV, Start M emoria Sulfate 30 12-10 Gabriele date: l mg 20:12/10/12 14:17:00, Duration: 30, 30 ml, 136.364 morphine No Garth P IV, Start M emoria Sulfate 30 12-10 Gabriele date: l mg 20:: 12/10/12 14:17:00, Duration: 30, 30 ml, 136.364 morphine No Garth P IV, Start M emoria Sulfate 30 12-10 [place]le date: l mg 20:: 12/10/12 14:17:00, Duration: 30, 30 ml, 136.364 morphine No Garth P IV, Start M emoria Sulfate 30 12-10 [place]riele date: l mg 20:: 12/10/12 14:17:00, Duration: 30, 30 ml, 136.364 morphine No Garth P IV, Start M emoria Sulfate 30 3 [place]le date: l mg 20:: 12/10/12 14:17:00, Duration: 30, 30 ml, 136.364 morphine 2012-0 No Garth P IV, Start M emoria Sulfate 30 3 [place]le date: l mg 20:: 12/10/12 14:17:00, Duration: 30, 30 ml, 136.364 morphine 2012-0 No Garth P IV, Start M emoria Sulfate 30 3 [place]le date: l mg 20:: 12/10/12 14:17:00, Duration: 30, 30 ml, 136.364 morphine No Garth P IV, Start M emoria Sulfate 30 3 [place]le date: l mg 20:: 12/10/12 14:17:00, Duration: 30, 30 ml, 136.364 morphine No Garth P IV, Start M emoria Sulfate 30 12-10 [place]le date: l mg 20:: 12/10/12 14:17:00, Duration: 30, 30 ml, 136.364 morphine No Garth P IV, Start M emoria Sulfate 30 12-10 [place]le date: l mg 20:: 12/10/12 14:17:00, Duration: 30, 30 ml, 136.364 morphine No Garth P IV, Start M emoria Sulfate 30 12-10 [place]le date: l mg 20:: 12/10/12 14:17:00, Duration: 30, 30 ml, 136.364 morphine No Garth P IV, Start M emoria Sulfate 30 12-10 Gabriele date: l mg 20:: 12/10/12 14:17:00, Duration: 30, 30 ml, 136.364 morphine No Garth P IV, Start M emoria Sulfate 30 12-10 [place]le date: l mg 20:: 12/10/12 14:17:00, Duration: 30, 30 ml, 136.364 morphine No Garth P IV, Start M emoria Sulfate 30 12-10 [place]le date: l mg 20:: 12/10/12 14:17:00, Duration: 30, 30 ml, 136.364 morphine 2012-0 No Garth P IV, Start M emoria Sulfate 30 3- Gab[place]le date: l mg 20:: 12/10/12 14:17:00, Duration: 30, 30 ml, 136.364 morphine 0 No Garth P IV, Start M emoria Sulfate 30 12-10 [place]le date: l mg 20:: 12/10/12 14:17:00, Duration: 30, 30 ml, 136.364 morphine No Garth P IV, Start M emoria Sulfate 30 12-10 [place]le date: l mg 20:17: 12/10/12 14:17:00, Duration: 30, 30 ml, 136.364 morphine No Garth P IV, Start M emoria Sulfate 30 12-10 Gabriele date: l mg 20:17: 12/10/12 14:17:00, Duration: 30, 30 ml, 136.364 morphine No Garth P IV, Start M emoria Sulfate 30 12-10 Gabriele date: l mg 20:17: 12/10/12 14:17:00, Duration: 30, 30 ml, 136.364 morphine No Garth P IV, Start M emoria Sulfate 30 12-10 [place]le date: l mg 20:: 12/10/12 14:17:00, Duration: 30, 30 ml, 136.364 morphine No Garth P IV, Start M emoria Sulfate 30 12-10 [place]riele date: l mg 20:17: 12/10/12 14:17:00, Duration: 30, 30 ml, 136.364 morphine No Garth P IV, Start M emoria Sulfate 30 12-10 [place]le date: l mg 20:17: 12/10/12 14:17:00, Duration: 30, 30 ml, 136.364 Phenergan No Heidy 12.5 mg, Memoria 12-10 Leroy Route: l 19:54: IVPB, ONCE, Dosing Weight 136.364, kg, Start date: 12/10/12 13:54:00, Stop date: 12/10/12 13:54:00 Phenergan 0 No Heidy 12.5 mg, Memoria 12-10 Leroy Route: l 19:54: IVPB, Dipesh 00 ONCE, Dosing Weight 136.364, kg, Start date: 12/10/12 13:54:00, Stop date: 12/10/12 13:54:00 Phenergan 0 No Heidy 12.5 mg, Memoria 3-07 Leroy Route: l 19:54: IVPB, Dipesh 00 ONCE, Dosing Weight 136.364, kg, Start date: 12/10/12 13:54:00, Stop date: 12/10/12 13:54:00 Phenergan 2012-0 No Heidy 12.5 mg, Memoria 3- Leroy Route: l 19:54: IVPB, Dipesh 00 ONCE, Dosing Weight 136.364, kg, Start date: 12/10/12 13:54:00, Stop date: 12/10/12 13:54:00 Phenergan 2012-0 No Heidy 12.5 mg, Memoria 3 Ler[place] Route: l 19:54: IVPB, Lolo 00 ONCE, Dosing Weight 136.364, kg, Start date: 12/10/12 13:54:00, Stop date: 12/10/12 13:54:00 Phenergan 2012-0 No Heidy 12.5 mg, Memoria 3 Ler[place] Route: l 19:54: IVPB, Lolo 00 ONCE, Dosing Weight 136.364, kg, Start date: 12/10/12 13:54:00, Stop date: 12/10/12 13:54:00 Phenergan 2012-0 No Heidy 12.5 mg, Memoria 12-10 Leroy Route: l 19:54: IVPB, Lolo 00 ONCE, Dosing Weight 136.364, kg, Start date: 12/10/12 13:54:00, Stop date: 12/10/12 13:54:00 Phenergan 2012-0 No Heidy 12.5 mg, Memoria 12-10 Leroy Route: l 19:54: IVPB, Lolo 00 ONCE, Dosing Weight 136.364, kg, Start date: 12/10/12 13:54:00, Stop date: 12/10/12 13:54:00 Phenergan 2012-0 No Heidy 12.5 mg, Memoria 3 [place] Route: l 19:54: IVPB, Lolo 00 ONCE, Dosing Weight 136.364, kg, Start date: 12/10/12 13:54:00, Stop date: 12/10/12 13:54:00 Phenergan 2012-0 No Heidy 12.5 mg, Memoria 3 [place] Route: l 19:54: IVPB, Dipesh 00 ONCE, Dosing Weight 136.364, kg, Start date: 12/10/12 13:54:00, Stop date: 12/10/12 13:54:00 Phenergan 2013-0 No Heidy 12.5 mg, Memoria 3- [place] Route: l 19:54: IVPB, Dipesh 00 ONCE, Dosing Weight 136.364, kg, Start date: 12/10/12 13:54:00, Stop date: 12/10/12 13:54:00 Phenergan 2013-0 No Heidy 12.5 mg, Memoria 3- [place] Route: l 19:54: IVPB, Dipesh 00 ONCE, Dosing Weight 136.364, kg, Start date: 12/10/12 13:54:00, Stop date: 12/10/12 13:54:00 Phenergan 2013-0 No Heidy 12.5 mg, Memoria 3- Ler[place] Route: l 19:54: IVPB, Lolo 00 ONCE, Dosing Weight 136.364, kg, Start date: 12/10/12 13:54:00, Stop date: 12/10/12 13:54:00 Phenergan 2012-0 No Heidy 12.5 mg, Memoria 3- [place] Route: l 19:54: IVPB, Dipesh 00 ONCE, Dosing Weight 136.364, kg, Start date: 12/10/12 13:54:00, Stop date: 12/10/12 13:54:00 Phenergan 2013-0 No Heidy 12.5 mg, Memoria 3- [place] Route: l 19:54: IVPB, Lolo 00 ONCE, Dosing Weight 136.364, kg, Start date: 12/10/12 13:54:00, Stop date: 12/10/12 13:54:00 Phenergan 2012-0 No Heidy 12.5 mg, Memoria 3- [place] Route: l 19:54: IVPB, Dipesh 00 ONCE, Dosing Weight 136.364, kg, Start date: 12/10/12 13:54:00, Stop date: 12/10/12 13:54:00 Phenergan 2013-0 No Heidy 12.5 mg, Memoria 3- [place] Route: l 19:54: IVPB, Lolo 00 ONCE, Dosing Weight 136.364, kg, Start date: 12/10/12 13:54:00, Stop date: 12/10/12 13:54:00 Phenergan 2013-0 No Heidy 12.5 mg, Memoria 3- [place] Route: l 19:54: IVPB, Lolo 00 ONCE, Dosing Weight 136.364, kg, Start date: 12/10/12 13:54:00, Stop date: 12/10/12 13:54:00 Phenergan 2012-0 No Heidy 12.5 mg, Memoria 3- [place] Route: l 19:54: IVPB, Dipesh 00 ONCE, Dosing Weight 136.364, kg, Start date: 12/10/12 13:54:00, Stop date: 12/10/12 13:54:00 Phenergan 2013-0 No Heidy 12.5 mg, Memoria 3- [place] Route: l 19:54: IVPB, Lolo 00 ONCE, Dosing Weight 136.364, kg, Start date: 12/10/12 13:54:00, Stop date: 12/10/12 13:54:00 Phenergan 2012-0 No Heidy 12.5 mg, Memoria 3- [place] Route: l 19:54: IVPB, Dipesh 00 ONCE, Dosing Weight 136.364, kg, Start date: 12/10/12 13:54:00, Stop date: 12/10/12 13:54:00 Phenergan 2013-0 No Heidy 12.5 mg, Memoria 3- [place] Route: l 19:54: IVPB, Lolo 00 ONCE, Dosing Weight 136.364, kg, Start date: 12/10/12 13:54:00, Stop date: 12/10/12 13:54:00 Phenergan 2013-0 No Heidy 12.5 mg, Memoria 3- [place] Route: l 19:54: IVPB, Dipesh 00 ONCE, Dosing Weight 136.364, kg, Start date: 12/10/12 13:54:00, Stop date: 12/10/12 13:54:00 Phenergan 2013-0 No Heidy 12.5 mg, Memoria 3- [place] Route: l 19:54: IVPB, Dipesh 00 ONCE, Dosing Weight 136.364, kg, Start date: 12/10/12 13:54:00, Stop date: 12/10/12 13:54:00 Phenergan 2013-0 No Heidy 12.5 mg, Memoria 3- [place] Route: l 19:54: IVPB, Lolo 00 ONCE, Dosing Weight 136.364, kg, Start date: 12/10/12 13:54:00, Stop date: 12/10/12 13:54:00 Phenergan 2012-0 No Heidy 12.5 mg, Memoria 3- [place] Route: l 19:54: IVPB, Lolo 00 ONCE, Dosing Weight 136.364, kg, Start date: 12/10/12 13:54:00, Stop date: 12/10/12 13:54:00 Phenergan 2013-0 No Heidy 12.5 mg, Memoria 3- [place] Route: l 19:54: IVPB, Dipesh 00 ONCE, Dosing Weight 136.364, kg, Start date: 12/10/12 13:54:00, Stop date: 12/10/12 13:54:00 Phenergan 2013-0 No Heidy 12.5 mg, Memoria 3- [place] Route: l 19:54: IVPB, Lolo 00 ONCE, Dosing Weight 136.364, kg, Start date: 12/10/12 13:54:00, Stop date: 12/10/12 13:54:00 Phenergan 2013-0 No Heidy 12.5 mg, Memoria 3- [place] Route: l 19:54: IVPB, Dipesh 00 ONCE, Dosing Weight 136.364, kg, Start date: 12/10/12 13:54:00, Stop date: 12/10/12 13:54:00 Phenergan 2013-0 No Heidy 12.5 mg, Memoria 3-07 [place] Route: l 19:54: IVPB, Lolo 00 ONCE, Dosing Weight 136.364, kg, Start date: 12/10/12 13:54:00, Stop date: 12/10/12 13:54:00 Phenergan 2013-0 No Heidy 12.5 mg, Memoria 3-07 [place] Route: l 19:54: IVPB, Dipesh 00 ONCE, Dosing Weight 136.364, kg, Start date: 12/10/12 13:54:00, Stop date: 12/10/12 13:54:00 Phenergan 2013-0 No Heidy 12.5 mg, Memoria 3- [place] Route: l 19:54: IVPB, Lolo 00 ONCE, Dosing Weight 136.364, kg, Start date: 12/10/12 13:54:00, Stop date: 12/10/12 13:54:00 Phenergan 2012-0 No Heidy 12.5 mg, Memoria 3- [place] Route: l 19:54: IVPB, Lolo 00 ONCE, Dosing Weight 136.364, kg, Start date: 12/10/12 13:54:00, Stop date: 12/10/12 13:54:00 Phenergan 2013-0 No Heidy 12.5 mg, Memoria 3- [place] Route: l 19:54: IVPB, Lolo 00 ONCE, Dosing Weight 136.364, kg, Start date: 12/10/12 13:54:00, Stop date: 12/10/12 13:54:00 Phenergan 2012-0 No Heidy 12.5 mg, Memoria 3- [place] Route: l 19:54: IVPB, Lolo 00 ONCE, Dosing Weight 136.364, kg, Start date: 12/10/12 13:54:00, Stop date: 12/10/12 13:54:00 Phenergan 2012-0 No Heidy 12.5 mg, Memoria 3- [place] Route: l 19:54: IVPB, Dipesh 00 ONCE, Dosing Weight 136.364, kg, Start date: 12/10/12 13:54:00, Stop date: 12/10/12 13:54:00 Phenergan 2013-0 No Heidy 12.5 mg, Memoria 3- [place] Route: l 19:54: IVPB, Dipesh 00 ONCE, Dosing Weight 136.364, kg, Start date: 12/10/12 13:54:00, Stop date: 12/10/12 13:54:00 Phenergan 2013-0 No Heidy 12.5 mg, Memoria 3- [place] Route: l 19:54: IVPB, Dipesh 00 ONCE, Dosing Weight 136.364, kg, Start date: 12/10/12 13:54:00, Stop date: 12/10/12 13:54:00 Phenergan 2013-0 No Heidy 12.5 mg, Memoria 3- [place] Route: l 19:54: IVPB, Dipesh 00 ONCE, Dosing Weight 136.364, kg, Start date: 12/10/12 13:54:00, Stop date: 12/10/12 13:54:00 Phenergan 2012-0 No Heidy 12.5 mg, Memoria 3- [place] Route: l 19:54: IVPB, Dipesh 00 ONCE, Dosing Weight 136.364, kg, Start date: 12/10/12 13:54:00, Stop date: 12/10/12 13:54:00 Phenergan 2012-0 No Heidy 12.5 mg, Memoria 3- [place] Route: l 19:54: IVPB, Lolo 00 ONCE, Dosing Weight 136.364, kg, Start date: 12/10/12 13:54:00, Stop date: 12/10/12 13:54:00 Phenergan 2012-0 No Heidy 12.5 mg, Memoria 12-10 [place] Route: l 19:54: IVPB, Lolo 00 ONCE, Dosing Weight 136.364, kg, Start date: 12/10/12 13:54:00, Stop date: 12/10/12 13:54:00 Phenergan 2012-0 No Heidy 12.5 mg, Memoria 3 [place] Route: l 19:54: IVPB, Lolo 00 ONCE, Dosing Weight 136.364, kg, Start date: 12/10/12 13:54:00, Stop date: 12/10/12 13:54:00 Phenergan 2012-0 No Heidy 12.5 mg, Memoria 3- [place] Route: l 19:54: IVPB, Lolo 00 ONCE, Dosing Weight 136.364, kg, Start date: 12/10/12 13:54:00, Stop date: 12/10/12 13:54:00 Phenergan 2012-0 No Heidy 12.5 mg, Memoria 3- [place] Route: l 19:54: IVPB, Lolo 00 ONCE, Dosing Weight 136.364, kg, Start date: 12/10/12 13:54:00, Stop date: 12/10/12 13:54:00 Phenergan 2012-0 No Heidy 12.5 mg, Memoria 3- [place] Route: l 19:54: IVPB, Lolo 00 ONCE, Dosing Weight 136.364, kg, Start date: 12/10/12 13:54:00, Stop date: 12/10/12 13:54:00 Phenergan 2012-0 No Heidy 12.5 mg, Memoria 3- [place] Route: l 19:54: IVPB, Dipesh 00 ONCE, Dosing Weight 136.364, kg, Start date: 12/10/12 13:54:00, Stop date: 12/10/12 13:54:00 Phenergan 2012-0 No Heidy 12.5 mg, Memoria 3- [place] Route: l 19:54: IVPB, Lolo 00 ONCE, Dosing Weight 136.364, kg, Start date: 12/10/12 13:54:00, Stop date: 12/10/12 13:54:00 Phenergan 2012-0 No Heidy 12.5 mg, Memoria 3- [place] Route: l 19:54: IVPB, Lolo 00 ONCE, Dosing Weight 136.364, kg, Start date: 12/10/12 13:54:00, Stop date: 12/10/12 13:54:00 Phenergan 2012-0 No Heidy 12.5 mg, Memoria 3- [place] Route: l 19:54: IVPB, Dipesh 00 ONCE, Dosing Weight 136.364, kg, Start date: 12/10/12 13:54:00, Stop date: 12/10/12 13:54:00 Phenergan 2012-0 No Heidy 12.5 mg, Memoria 3- [place] Route: l 19:54: IVPB, Lolo 00 ONCE, Dosing Weight 136.364, kg, Start date: 12/10/12 13:54:00, Stop date: 12/10/12 13:54:00 Phenergan 2012-0 No Heidy 12.5 mg, Memoria 3- [place] Route: l 19:54: IVPB, Dipesh 00 ONCE, Dosing Weight 136.364, kg, Start date: 12/10/12 13:54:00, Stop date: 12/10/12 13:54:00 Phenergan 2013-0 No Heidy 12.5 mg, Memoria 3- [place] Route: l 19:54: IVPB, Lolo 00 ONCE, Dosing Weight 136.364, kg, Start date: 12/10/12 13:54:00, Stop date: 12/10/12 13:54:00 Phenergan 2012-0 No Heidy 12.5 mg, Memoria 12-10 Route: l 19:54: IVPB, Dipesh 00 ONCE, Dosing Weight 136.364, kg, Start date: 12/10/12 13:54:00, Stop date: 12/10/12 13:54:00 Phenergan 2012-0 No Heidy 12.5 mg, Memoria 12-10 Route: l 19:54: IVPB, Lolo 00 ONCE, Dosing Weight 136.364, kg, Start date: 12/10/12 13:54:00, Stop date: 12/10/12 13:54:00 Phenergan 2012-0 No Heidy 12.5 mg, Memoria 12-10 Route: l 19:54: IVPB, Dipesh 00 ONCE, Dosing Weight 136.364, kg, Start date: 12/10/12 13:54:00, Stop date: 12/10/12 13:54:00 Phenergan 2012-0 No Heidy 12.5 mg, Memoria 12-10 Route: l 19:54: IVPB, Lolo 00 ONCE, Dosing Weight 136.364, kg, Start date: 12/10/12 13:54:00, Stop date: 12/10/12 13:54:00 ondansetron No Lisa 4 mg, 2 Me moria 07 [place] mL, Route: l 17:49: IVP, Drug form: INJ, ONCE, Dosing Weight 136.364, kg, PRN Nausea & Vomiting, Start date: 12/10/12 11:49:00 naloxone No Heidy 0.04 mg, M emoria 12-10 Leroy 0.1 mL, l 17:49: Route: Lolo 00 IVP, Drug form: INJ, Q2MIN, Dosing Weight 136.364, kg, PRN Narcotic Reversal, Start date: 12/10/12 11:49:00, Duration: 8 doses or times, Stop date: Limited # of times meperidine 2012-0 No Heidy 12.5 mg, Memoria 3-07 [place] 0.25 mL, l 17:49: Route: Lolo 00 IVP, Drug form: INJ, Q30Min, Dosing Weight 136.364, kg, PRN Other -See Comment, For shivering, Start date: 12/10/12 11:49:00, Duration: 2 doses or times, Stop date: Limited # of times morphine 2012- No Heidy 2 mg, 0.2 Memoria Sulfate 3-07 Leroy mL, Route: l 17:49: IVP, Drug form: INJ, Q5Min, Dosing Weight 136.364, kg, PRN Pain Score 4-6, Start date: 12/10/12 11:49:00, Duration: 8 doses or times, Stop date: Limited # of times hydromorpho 2012- No Heidy 0.5 mg, Memoria ne 3-07 [place] 0.25 mL, l 17:49: Route: Lolo 00 IVP, Drug form: INJ, Q5Min, Dosing Weight 136.364, kg, PRN Pain, Start date: 12/10/12 11:49:00, Duration: 5 doses or times, Stop date: Limited # of times, pain score 7-10 flumazenil 2012- No Heidy 0.2 mg, 2 Memoria 3-07 Leroy mL, Route: l 17:49: IVP, Drug form: INJ, PRN, Dosing Weight 136.364, kg, PRN Benzodiaze pine Reversal, Initial dose, Start date: 12/10/12 11:49:00, Duration: 30 day, Stop date: 01/09/13 12:48:00 ondansetron 2012-0 No Lisa 4 mg, 2 Me moria 3-07 [place] mL, Route: l 17:49: IVP, Drug form: INJ, ONCE, Dosing Weight 136.364, kg, PRN Nausea & Vomiting, Start date: 12/10/12 11:49:00 naloxone 2012-0 No Heidy 0.04 mg, M emoria 3-07 Ler[place] 0.1 mL, l 17:49: Route: IVP, Drug form: INJ, Q2MIN, Dosing Weight 136.364, kg, PRN Narcotic Reversal, Start date: 12/10/12 11:49:00, Duration: 8 doses or times, Stop date: Limited # of times meperidine No Heidy 12.5 mg, Memoria 3-07 [place] 0.25 mL, l 17:49: Route: Lolo 00 IVP, Drug form: INJ, Q30Min, Dosing Weight 136.364, kg, PRN Other -See Comment, For shivering, Start date: 12/10/12 11:49:00, Duration: 2 doses or times, Stop date: Limited # of times morphine No Heidy 2 mg, 0.2 Memoria Sulfate 3-07 Ler[place] mL, Route: l 17:49: IVP, Drug form: INJ, Q5Min, Dosing Weight 136.364, kg, PRN Pain Score 4-6, Start date: 12/10/12 11:49:00, Duration: 8 doses or times, Stop date: Limited # of times hydromorpho No Heidy 0.5 mg, Memoria ne 3-07 [place] 0.25 mL, l 17:49: Route: Dipesh 00 IVP, Drug form: INJ, Q5Min, Dosing Weight 136.364, kg, PRN Pain, Start date: 12/10/12 11:49:00, Duration: 5 doses or times, Stop date: Limited # of times, pain score 7-10 flumazenil No Heidy 0.2 mg, 2 Memoria 3-07 [place] mL, Route: l 17:49: IVP, Drug form: INJ, PRN, Dosing Weight 136.364, kg, PRN Benzodiaze pine Reversal, Initial dose, Start date: 12/10/12 11:49:00, Duration: 30 day, Stop date: 01/09/13 12:48:00 ondansetron No Lisa 4 mg, 2 Me moria 3-07 [place] mL, Route: l 17:49: IVP, Drug form: INJ, ONCE, Dosing Weight 136.364, kg, PRN Nausea & Vomiting, Start date: 12/10/12 11:49:00 naloxone No Heidy 0.04 mg, M emoria 3-07 [place] 0.1 mL, l 17:49: Route: Lolo 00 IVP, Drug form: INJ, Q2MIN, Dosing Weight 136.364, kg, PRN Narcotic Reversal, Start date: 12/10/12 11:49:00, Duration: 8 doses or times, Stop date: Limited # of times meperidine No Heidy 12.5 mg, Memoria 3-07 [place] 0.25 mL, l 17:49: Route: Dipesh 00 IVP, Drug form: INJ, Q30Min, Dosing Weight 136.364, kg, PRN Other -See Comment, For shivering, Start date: 12/10/12 11:49:00, Duration: 2 doses or times, Stop date: Limited # of times morphine No Heidy 2 mg, 0.2 Memoria Sulfate 3-07 [place] mL, Route: l 17:49: IVP, Drug form: INJ, Q5Min, Dosing Weight 136.364, kg, PRN Pain Score 4-6, Start date: 12/10/12 11:49:00, Duration: 8 doses or times, Stop date: Limited # of times hydromorpho No Heidy 0.5 mg, Memoria ne 3-07 [place] 0.25 mL, l 17:49: Route: IVP, Drug form: INJ, Q5Min, Dosing Weight 136.364, kg, PRN Pain, Start date: 12/10/12 11:49:00, Duration: 5 doses or times, Stop date: Limited # of times, pain score 7-10 flumazenil No Heidy 0.2 mg, 2 Memoria 3-07 [place] mL, Route: l 17:49: IVP, Drug form: INJ, PRN, Dosing Weight 136.364, kg, PRN Benzodiaze pine Reversal, Initial dose, Start date: 12/10/12 11:49:00, Duration: 30 day, Stop date: 01/09/13 12:48:00 ondansetron No Lisa 4 mg, 2 Me moria 3-07 [place] mL, Route: l 17:49: IVP, Drug form: INJ, ONCE, Dosing Weight 136.364, kg, PRN Nausea & Vomiting, Start date: 12/10/12 11:49:00 naloxone No Heidy 0.04 mg, M emoria 3-07 [place] 0.1 mL, l 17:49: Route: Dipesh IVP, Drug form: INJ, Q2MIN, Dosing Weight 136.364, kg, PRN Narcotic Reversal, Start date: 12/10/12 11:49:00, Duration: 8 doses or times, Stop date: Limited # of times meperidine No Heidy 12.5 mg, Memoria 3-07 [place] 0.25 mL, l 17:49: Route: Lolo 00 IVP, Drug form: INJ, Q30Min, Dosing Weight 136.364, kg, PRN Other -See Comment, For shivering, Start date: 12/10/12 11:49:00, Duration: 2 doses or times, Stop date: Limited # of times morphine No Heidy 2 mg, 0.2 Memoria Sulfate 3-07 Leroy mL, Route: l 17:49: IVP, Drug form: INJ, Q5Min, Dosing Weight 136.364, kg, PRN Pain Score 4-6, Start date: 12/10/12 11:49:00, Duration: 8 doses or times, Stop date: Limited # of times hydromorpho No Heidy 0.5 mg, Memoria ne 3-07 Leroy 0.25 mL, l 17:49: Route: IVP, Drug form: INJ, Q5Min, Dosing Weight 136.364, kg, PRN Pain, Start date: 12/10/12 11:49:00, Duration: 5 doses or times, Stop date: Limited # of times, pain score 7-10 flumazenil No Heidy 0.2 mg, 2 Memoria 3-07 Leroy mL, Route: l 17:49: IVP, Drug form: INJ, PRN, Dosing Weight 136.364, kg, PRN Benzodiaze pine Reversal, Initial dose, Start date: 12/10/12 11:49:00, Duration: 30 day, Stop date: 01/09/13 12:48:00 ondansetron No Lisa 4 mg, 2 Me moria 3-07 [place] mL, Route: l 17:49: IVP, Drug form: INJ, ONCE, Dosing Weight 136.364, kg, PRN Nausea & Vomiting, Start date: 12/10/12 11:49:00 naloxone 2012- No Heidy 0.04 mg, M ermiasria 3-07 Leroy 0.1 mL, l 17:49: Route: Dipesh 00 IVP, Drug form: INJ, Q2MIN, Dosing Weight 136.364, kg, PRN Narcotic Reversal, Start date: 12/10/12 11:49:00, Duration: 8 doses or times, Stop date: Limited # of times meperidine No Heidy 12.5 mg, Memoria 3-07 Leroy 0.25 mL, l 17:49: Route: IVP, Drug form: INJ, Q30Min, Dosing Weight 136.364, kg, PRN Other -See Comment, For shivering, Start date: 12/10/12 11:49:00, Duration: 2 doses or times, Stop date: Limited # of times morphine 2012- No Heidy 2 mg, 0.2 Memoria Sulfate 3-07 Leroy mL, Route: l 17:49: IVP, Drug form: INJ, Q5Min, Dosing Weight 136.364, kg, PRN Pain Score 4-6, Start date: 12/10/12 11:49:00, Duration: 8 doses or times, Stop date: Limited # of times hydromorpho No Heidy 0.5 mg, Memoria ne 3-07 Leroy 0.25 mL, l 17:49: Route: IVP, Drug form: INJ, Q5Min, Dosing Weight 136.364, kg, PRN Pain, Start date: 12/10/12 11:49:00, Duration: 5 doses or times, Stop date: Limited # of times, pain score 7-10 flumazenil 2012- No Heidy 0.2 mg, 2 Memoria 3-07 Leroy mL, Route: l 17:49: IVP, Drug form: INJ, PRN, Dosing Weight 136.364, kg, PRN Benzodiaze pine Reversal, Initial dose, Start date: 12/10/12 11:49:00, Duration: 30 day, Stop date: 01/09/13 12:48:00 ondansetron No Lisa 4 mg, 2 Me moria 3-07 [place] mL, Route: l 17:49: IVP, Drug form: INJ, ONCE, Dosing Weight 136.364, kg, PRN Nausea & Vomiting, Start date: 12/10/12 11:49:00 naloxone No Heidy 0.04 mg, M emoria 3-07 Leroy 0.1 mL, l 17:49: Route: Lolo IVP, Drug form: INJ, Q2MIN, Dosing Weight 136.364, kg, PRN Narcotic Reversal, Start date: 12/10/12 11:49:00, Duration: 8 doses or times, Stop date: Limited # of times meperidine No Heidy 12.5 mg, Memoria 3-07 Leroy 0.25 mL, l 17:49: Route: IVP, Drug form: INJ, Q30Min, Dosing Weight 136.364, kg, PRN Other -See Comment, For shivering, Start date: 12/10/12 11:49:00, Duration: 2 doses or times, Stop date: Limited # of times morphine No Heidy 2 mg, 0.2 Memoria Sulfate 3-07 Leroy mL, Route: l 17:49: IVP, Drug form: INJ, Q5Min, Dosing Weight 136.364, kg, PRN Pain Score 4-6, Start date: 12/10/12 11:49:00, Duration: 8 doses or times, Stop date: Limited # of times hydromorpho No Heidy 0.5 mg, Memoria ne 3-07 Leroy 0.25 mL, l 17:49: Route: Lolo 00 IVP, Drug form: INJ, Q5Min, Dosing Weight 136.364, kg, PRN Pain, Start date: 12/10/12 11:49:00, Duration: 5 doses or times, Stop date: Limited # of times, pain score 7-10 flumazenil 2012- No Heidy 0.2 mg, 2 Memoria 3-07 Leroy mL, Route: l 17:49: IVP, Drug form: INJ, PRN, Dosing Weight 136.364, kg, PRN Benzodiaze pine Reversal, Initial dose, Start date: 12/10/12 11:49:00, Duration: 30 day, Stop date: 01/09/13 12:48:00 ondansetron 2012- No Lisa 4 mg, 2 Me moria 3-07 [place] mL, Route: l 17:49: IVP, Drug form: INJ, ONCE, Dosing Weight 136.364, kg, PRN Nausea & Vomiting, Start date: 12/10/12 11:49:00 naloxone 2012- No Heidy 0.04 mg, M emoria 3-07 Leroy 0.1 mL, l 17:49: Route: IVP, Drug form: INJ, Q2MIN, Dosing Weight 136.364, kg, PRN Narcotic Reversal, Start date: 12/10/12 11:49:00, Duration: 8 doses or times, Stop date: Limited # of times meperidine No Heidy 12.5 mg, Memoria 3-07 Leroy 0.25 mL, l 17:49: Route: IVP, Drug form: INJ, Q30Min, Dosing Weight 136.364, kg, PRN Other -See Comment, For shivering, Start date: 12/10/12 11:49:00, Duration: 2 doses or times, Stop date: Limited # of times morphine No Heidy 2 mg, 0.2 Memoria Sulfate 3-07 Leroy mL, Route: l 17:49: IVP, Drug form: INJ, Q5Min, Dosing Weight 136.364, kg, PRN Pain Score 4-6, Start date: 12/10/12 11:49:00, Duration: 8 doses or times, Stop date: Limited # of times hydromorpho No Heidy 0.5 mg, Memoria ne 3-07 Leroy 0.25 mL, l 17:49: Route: Dipesh 00 IVP, Drug form: INJ, Q5Min, Dosing Weight 136.364, kg, PRN Pain, Start date: 12/10/12 11:49:00, Duration: 5 doses or times, Stop date: Limited # of times, pain score 7-10 flumazenil No Heidy 0.2 mg, 2 Memoria 3-07 Leroy mL, Route: l 17:49: IVP, Drug form: INJ, PRN, Dosing Weight 136.364, kg, PRN Benzodiaze pine Reversal, Initial dose, Start date: 12/10/12 11:49:00, Duration: 30 day, Stop date: 01/09/13 12:48:00 ondansetron 2012-0 No Lisa 4 mg, 2 Me moria 3-07 [place] mL, Route: l 17:49: IVP, Drug form: INJ, ONCE, Dosing Weight 136.364, kg, PRN Nausea & Vomiting, Start date: 12/10/12 11:49:00 naloxone 2012- No Heidy 0.04 mg, M emoria 3-07 Leroy 0.1 mL, l 17:49: Route: IVP, Drug form: INJ, Q2MIN, Dosing Weight 136.364, kg, PRN Narcotic Reversal, Start date: 12/10/12 11:49:00, Duration: 8 doses or times, Stop date: Limited # of times meperidine No Heidy 12.5 mg, Memoria 3-07 Leroy 0.25 mL, l 17:49: Route: IVP, Drug form: INJ, Q30Min, Dosing Weight 136.364, kg, PRN Other -See Comment, For shivering, Start date: 12/10/12 11:49:00, Duration: 2 doses or times, Stop date: Limited # of times morphine 2012- No Heidy 2 mg, 0.2 Memoria Sulfate 3-07 Leroy mL, Route: l 17:49: IVP, Drug form: INJ, Q5Min, Dosing Weight 136.364, kg, PRN Pain Score 4-6, Start date: 12/10/12 11:49:00, Duration: 8 doses or times, Stop date: Limited # of times hydromorpho 2012-0 No Heidy 0.5 mg, Memoria ne 3-07 Leroy 0.25 mL, l 17:49: Route: Dipesh 00 IVP, Drug form: INJ, Q5Min, Dosing Weight 136.364, kg, PRN Pain, Start date: 12/10/12 11:49:00, Duration: 5 doses or times, Stop date: Limited # of times, pain score 7-10 flumazenil No Heidy 0.2 mg, 2 Memoria 3-07 Leroy mL, Route: l 17:49: IVP, Drug form: INJ, PRN, Dosing Weight 136.364, kg, PRN Benzodiaze pine Reversal, Initial dose, Start date: 12/10/12 11:49:00, Duration: 30 day, Stop date: 01/09/13 12:48:00 ondansetron No Lisa 4 mg, 2 Me moria 3-07 [place] mL, Route: l 17:49: IVP, Drug form: INJ, ONCE, Dosing Weight 136.364, kg, PRN Nausea & Vomiting, Start date: 12/10/12 11:49:00 naloxone No Heidy 0.04 mg, M emoria 3-07 Leroy 0.1 mL, l 17:49: Route: IVP, Drug form: INJ, Q2MIN, Dosing Weight 136.364, kg, PRN Narcotic Reversal, Start date: 12/10/12 11:49:00, Duration: 8 doses or times, Stop date: Limited # of times meperidine No Heidy 12.5 mg, Memoria 3-07 Leroy 0.25 mL, l 17:49: Route: Lolo 00 IVP, Drug form: INJ, Q30Min, Dosing Weight 136.364, kg, PRN Other -See Comment, For shivering, Start date: 12/10/12 11:49:00, Duration: 2 doses or times, Stop date: Limited # of times morphine No Heidy 2 mg, 0.2 Memoria Sulfate 3-07 Leroy mL, Route: l 17:49: IVP, Drug form: INJ, Q5Min, Dosing Weight 136.364, kg, PRN Pain Score 4-6, Start date: 12/10/12 11:49:00, Duration: 8 doses or times, Stop date: Limited # of times hydromorpho No Heidy 0.5 mg, Memoria ne 3-07 Leroy 0.25 mL, l 17:49: Route: Lolo 00 IVP, Drug form: INJ, Q5Min, Dosing Weight 136.364, kg, PRN Pain, Start date: 12/10/12 11:49:00, Duration: 5 doses or times, Stop date: Limited # of times, pain score 7-10 flumazenil 2012- No Heidy 0.2 mg, 2 Memoria 3-07 Leroy mL, Route: l 17:49: IVP, Drug form: INJ, PRN, Dosing Weight 136.364, kg, PRN Benzodiaze pine Reversal, Initial dose, Start date: 12/10/12 11:49:00, Duration: 30 day, Stop date: 01/09/13 12:48:00 ondansetron 2012- No Lisa 4 mg, 2 Me moria 3-07 [place] mL, Route: l 17:49: IVP, Drug form: INJ, ONCE, Dosing Weight 136.364, kg, PRN Nausea & Vomiting, Start date: 12/10/12 11:49:00 naloxone No Heidy 0.04 mg, M emoria 3-07 Leroy 0.1 mL, l 17:49: Route: IVP, Drug form: INJ, Q2MIN, Dosing Weight 136.364, kg, PRN Narcotic Reversal, Start date: 12/10/12 11:49:00, Duration: 8 doses or times, Stop date: Limited # of times meperidine No Heidy 12.5 mg, Memoria 3-07 Leroy 0.25 mL, l 17:49: Route: IVP, Drug form: INJ, Q30Min, Dosing Weight 136.364, kg, PRN Other -See Comment, For shivering, Start date: 12/10/12 11:49:00, Duration: 2 doses or times, Stop date: Limited # of times morphine 2012- No Heidy 2 mg, 0.2 Memoria Sulfate 3-07 Leroy mL, Route: l 17:49: IVP, Drug form: INJ, Q5Min, Dosing Weight 136.364, kg, PRN Pain Score 4-6, Start date: 12/10/12 11:49:00, Duration: 8 doses or times, Stop date: Limited # of times hydromorpho 2012-0 No Heidy 0.5 mg, Memoria ne 3-07 Leroy 0.25 mL, l 17:49: Route: Dipesh IVP, Drug form: INJ, Q5Min, Dosing Weight 136.364, kg, PRN Pain, Start date: 12/10/12 11:49:00, Duration: 5 doses or times, Stop date: Limited # of times, pain score 7-10 flumazenil 0 No Heidy 0.2 mg, 2 Memoria 3-07 Leroy mL, Route: l 17:49: IVP, Drug form: INJ, PRN, Dosing Weight 136.364, kg, PRN Benzodiaze pine Reversal, Initial dose, Start date: 12/10/12 11:49:00, Duration: 30 day, Stop date: 01/09/13 12:48:00 ondansetron 2012-0 No Lisa 4 mg, 2 Me moria 3-07 [place] mL, Route: l 17:49: IVP, Drug form: INJ, ONCE, Dosing Weight 136.364, kg, PRN Nausea & Vomiting, Start date: 12/10/12 11:49:00 naloxone 0 No Heidy 0.04 mg, M emoria 3-07 Leroy 0.1 mL, l 17:49: Route: Dipesh 00 IVP, Drug form: INJ, Q2MIN, Dosing Weight 136.364, kg, PRN Narcotic Reversal, Start date: 12/10/12 11:49:00, Duration: 8 doses or times, Stop date: Limited # of times meperidine 0 No Heidy 12.5 mg, Memoria 3-07 Leroy 0.25 mL, l 17:49: Route: Dipesh 00 IVP, Drug form: INJ, Q30Min, Dosing Weight 136.364, kg, PRN Other -See Comment, For shivering, Start date: 12/10/12 11:49:00, Duration: 2 doses or times, Stop date: Limited # of times morphine 2012-0 No Heidy 2 mg, 0.2 Memoria Sulfate 3-07 Leroy mL, Route: l 17:49: IVP, Drug form: INJ, Q5Min, Dosing Weight 136.364, kg, PRN Pain Score 4-6, Start date: 12/10/12 11:49:00, Duration: 8 doses or times, Stop date: Limited # of times hydromorpho 2012- No Heidy 0.5 mg, Memoria ne 3-07 Leroy 0.25 mL, l 17:49: Route: Dipesh 00 IVP, Drug form: INJ, Q5Min, Dosing Weight 136.364, kg, PRN Pain, Start date: 12/10/12 11:49:00, Duration: 5 doses or times, Stop date: Limited # of times, pain score 7-10 flumazenil No Heidy 0.2 mg, 2 Memoria 3-07 Leroy mL, Route: l 17:49: IVP, Drug form: INJ, PRN, Dosing Weight 136.364, kg, PRN Benzodiaze pine Reversal, Initial dose, Start date: 12/10/12 11:49:00, Duration: 30 day, Stop date: 01/09/13 12:48:00 ondansetron 2012-0 No Lisa 4 mg, 2 Me moria 3-07 [place] mL, Route: l 17:49: IVP, Drug form: INJ, ONCE, Dosing Weight 136.364, kg, PRN Nausea & Vomiting, Start date: 12/10/12 11:49:00 ondansetron 2012-0 No Lisa 4 mg, 2 Me moria 3-07 [place] mL, Route: l 17:49: IVP, Drug form: INJ, ONCE, Dosing Weight 136.364, kg, PRN Nausea & Vomiting, Start date: 12/10/12 11:49:00 naloxone No Heidy 0.04 mg, M emoria 3-07 Leroy 0.1 mL, l 17:49: Route: Lolo IVP, Drug form: INJ, Q2MIN, Dosing Weight 136.364, kg, PRN Narcotic Reversal, Start date: 12/10/12 11:49:00, Duration: 8 doses or times, Stop date: Limited # of times naloxone 0 No Heidy 0.04 mg, M emoria 3-07 Leroy 0.1 mL, l 17:49: Route: Lolo 00 IVP, Drug form: INJ, Q2MIN, Dosing Weight 136.364, kg, PRN Narcotic Reversal, Start date: 12/10/12 11:49:00, Duration: 8 doses or times, Stop date: Limited # of times meperidine 2012- No Heidy 12.5 mg, Memoria 3-07 Leroy 0.25 mL, l 17:49: Route: Lolo 00 IVP, Drug form: INJ, Q30Min, Dosing Weight 136.364, kg, PRN Other -See Comment, For shivering, Start date: 12/10/12 11:49:00, Duration: 2 doses or times, Stop date: Limited # of times morphine 2012- No Heidy 2 mg, 0.2 Memoria Sulfate 3-07 [place] mL, Route: l 17:49: IVP, Drug form: INJ, Q5Min, Dosing Weight 136.364, kg, PRN Pain Score 4-6, Start date: 12/10/12 11:49:00, Duration: 8 doses or times, Stop date: Limited # of times hydromorpho No Heidy 0.5 mg, Memoria ne 3-07 Leroy 0.25 mL, l 17:49: Route: Dipesh 00 IVP, Drug form: INJ, Q5Min, Dosing Weight 136.364, kg, PRN Pain, Start date: 12/10/12 11:49:00, Duration: 5 doses or times, Stop date: Limited # of times, pain score 7-10 flumazenil 2012- No Heidy 0.2 mg, 2 Memoria 3-07 Leroy mL, Route: l 17:49: IVP, Drug form: INJ, PRN, Dosing Weight 136.364, kg, PRN Benzodiaze pine Reversal, Initial dose, Start date: 12/10/12 11:49:00, Duration: 30 day, Stop date: 01/09/13 12:48:00 meperidine 2012- No Heidy 12.5 mg, Memoria 3-07 Leroy 0.25 mL, l 17:49: Route: Dipesh 00 IVP, Drug form: INJ, Q30Min, Dosing Weight 136.364, kg, PRN Other -See Comment, For shivering, Start date: 12/10/12 11:49:00, Duration: 2 doses or times, Stop date: Limited # of times ondansetron No Lisa 4 mg, 2 Me moria 3-07 [place] mL, Route: l 17:49: IVP, Drug form: INJ, ONCE, Dosing Weight 136.364, kg, PRN Nausea & Vomiting, Start date: 12/10/12 11:49:00 naloxone No Heidy 0.04 mg, M emoria 3-07 Leroy 0.1 mL, l 17:49: Route: Dipesh IVP, Drug form: INJ, Q2MIN, Dosing Weight 136.364, kg, PRN Narcotic Reversal, Start date: 12/10/12 11:49:00, Duration: 8 doses or times, Stop date: Limited # of times meperidine No Heidy 12.5 mg, Memoria 3-07 Leroy 0.25 mL, l 17:49: Route: IVP, Drug form: INJ, Q30Min, Dosing Weight 136.364, kg, PRN Other -See Comment, For shivering, Start date: 12/10/12 11:49:00, Duration: 2 doses or times, Stop date: Limited # of times morphine No Heidy 2 mg, 0.2 Memoria Sulfate 3-07 Leroy mL, Route: l 17:49: IVP, Drug form: INJ, Q5Min, Dosing Weight 136.364, kg, PRN Pain Score 4-6, Start date: 12/10/12 11:49:00, Duration: 8 doses or times, Stop date: Limited # of times hydromorpho No Heidy 0.5 mg, Memoria ne 3-07 Leroy 0.25 mL, l 17:49: Route: Dipesh 00 IVP, Drug form: INJ, Q5Min, Dosing Weight 136.364, kg, PRN Pain, Start date: 12/10/12 11:49:00, Duration: 5 doses or times, Stop date: Limited # of times, pain score 7-10 flumazenil No Heidy 0.2 mg, 2 Memoria 3-07 Leroy mL, Route: l 17:49: IVP, Drug form: INJ, PRN, Dosing Weight 136.364, kg, PRN Benzodiaze pine Reversal, Initial dose, Start date: 12/10/12 11:49:00, Duration: 30 day, Stop date: 01/09/13 12:48:00 morphine 2012- No Heidy 2 mg, 0.2 Memoria Sulfate 3-07 Leroy mL, Route: l 17:49: IVP, Drug form: INJ, Q5Min, Dosing Weight 136.364, kg, PRN Pain Score 4-6, Start date: 12/10/12 11:49:00, Duration: 8 doses or times, Stop date: Limited # of times hydromorpho No Heidy 0.5 mg, Memoria ne 3-07 Leroy 0.25 mL, l 17:49: Route: Lolo 00 IVP, Drug form: INJ, Q5Min, Dosing Weight 136.364, kg, PRN Pain, Start date: 12/10/12 11:49:00, Duration: 5 doses or times, Stop date: Limited # of times, pain score 7-10 ondansetron No Lisa 4 mg, 2 Me moria 3-07 [place] mL, Route: l 17:49: IVP, Drug form: INJ, ONCE, Dosing Weight 136.364, kg, PRN Nausea & Vomiting, Start date: 12/10/12 11:49:00 naloxone No Heidy 0.04 mg, M emoria 3-07 Leroy 0.1 mL, l 17:49: Route: Lolo 00 IVP, Drug form: INJ, Q2MIN, Dosing Weight 136.364, kg, PRN Narcotic Reversal, Start date: 12/10/12 11:49:00, Duration: 8 doses or times, Stop date: Limited # of times meperidine No Heidy 12.5 mg, Memoria 3-07 Leroy 0.25 mL, l 17:49: Route: Lolo 00 IVP, Drug form: INJ, Q30Min, Dosing Weight 136.364, kg, PRN Other -See Comment, For shivering, Start date: 12/10/12 11:49:00, Duration: 2 doses or times, Stop date: Limited # of times morphine No Heidy 2 mg, 0.2 Memoria Sulfate 3-07 Leroy mL, Route: l 17:49: IVP, Drug form: INJ, Q5Min, Dosing Weight 136.364, kg, PRN Pain Score 4-6, Start date: 12/10/12 11:49:00, Duration: 8 doses or times, Stop date: Limited # of times hydromorpho No Heidy 0.5 mg, Memoria ne 3-07 Leroy 0.25 mL, l 17:49: Route: Lolo IVP, Drug form: INJ, Q5Min, Dosing Weight 136.364, kg, PRN Pain, Start date: 12/10/12 11:49:00, Duration: 5 doses or times, Stop date: Limited # of times, pain score 7-10 flumazenil No Heidy 0.2 mg, 2 Memoria 3-07 Leroy mL, Route: l 17:49: IVP, Drug form: INJ, PRN, Dosing Weight 136.364, kg, PRN Benzodiaze pine Reversal, Initial dose, Start date: 12/10/12 11:49:00, Duration: 30 day, Stop date: 01/09/13 12:48:00 flumazenil No Heidy 0.2 mg, 2 Memoria 3-07 Leroy mL, Route: l 17:49: IVP, Drug form: INJ, PRN, Dosing Weight 136.364, kg, PRN Benzodiaze pine Reversal, Initial dose, Start date: 12/10/12 11:49:00, Duration: 30 day, Stop date: 01/09/13 12:48:00 ondansetron No Lisa 4 mg, 2 Me moria 3-07 [place] mL, Route: l 17:49: IVP, Drug form: INJ, ONCE, Dosing Weight 136.364, kg, PRN Nausea & Vomiting, Start date: 12/10/12 11:49:00 naloxone No Heidy 0.04 mg, M emoria 3-07 Leroy 0.1 mL, l 17:49: Route: Dipesh 00 IVP, Drug form: INJ, Q2MIN, Dosing Weight 136.364, kg, PRN Narcotic Reversal, Start date: 12/10/12 11:49:00, Duration: 8 doses or times, Stop date: Limited # of times meperidine No Heidy 12.5 mg, Memoria 3-07 Leroy 0.25 mL, l 17:49: Route: Dipesh 00 IVP, Drug form: INJ, Q30Min, Dosing Weight 136.364, kg, PRN Other -See Comment, For shivering, Start date: 12/10/12 11:49:00, Duration: 2 doses or times, Stop date: Limited # of times morphine No Heidy 2 mg, 0.2 Memoria Sulfate 3-07 Leroy mL, Route: l 17:49: IVP, Drug form: INJ, Q5Min, Dosing Weight 136.364, kg, PRN Pain Score 4-6, Start date: 12/10/12 11:49:00, Duration: 8 doses or times, Stop date: Limited # of times hydromorpho No Heidy 0.5 mg, Memoria ne 3-07 Leroy 0.25 mL, l 17:49: Route: Dipesh 00 IVP, Drug form: INJ, Q5Min, Dosing Weight 136.364, kg, PRN Pain, Start date: 12/10/12 11:49:00, Duration: 5 doses or times, Stop date: Limited # of times, pain score 7-10 flumazenil No Heidy 0.2 mg, 2 Memoria 3-07 Leroy mL, Route: l 17:49: IVP, Drug form: INJ, PRN, Dosing Weight 136.364, kg, PRN Benzodiaze pine Reversal, Initial dose, Start date: 12/10/12 11:49:00, Duration: 30 day, Stop date: 01/09/13 12:48:00 ondansetron No Lisa 4 mg, 2 Me moria 3-07 [place] mL, Route: l 17:49: IVP, Drug form: INJ, ONCE, Dosing Weight 136.364, kg, PRN Nausea & Vomiting, Start date: 12/10/12 11:49:00 naloxone No Heidy 0.04 mg, M emoria 3-07 Leroy 0.1 mL, l 17:49: Route: Dipesh 00 IVP, Drug form: INJ, Q2MIN, Dosing Weight 136.364, kg, PRN Narcotic Reversal, Start date: 12/10/12 11:49:00, Duration: 8 doses or times, Stop date: Limited # of times meperidine No Heidy 12.5 mg, Memoria 3-07 [place] 0.25 mL, l 17:49: Route: Dipesh 00 IVP, Drug form: INJ, Q30Min, Dosing Weight 136.364, kg, PRN Other -See Comment, For shivering, Start date: 12/10/12 11:49:00, Duration: 2 doses or times, Stop date: Limited # of times morphine No Heidy 2 mg, 0.2 Memoria Sulfate 3-07 Leroy mL, Route: l 17:49: IVP, Drug form: INJ, Q5Min, Dosing Weight 136.364, kg, PRN Pain Score 4-6, Start date: 12/10/12 11:49:00, Duration: 8 doses or times, Stop date: Limited # of times hydromorpho No Heidy 0.5 mg, Memoria ne 3-07 Leroy 0.25 mL, l 17:49: Route: IVP, Drug form: INJ, Q5Min, Dosing Weight 136.364, kg, PRN Pain, Start date: 12/10/12 11:49:00, Duration: 5 doses or times, Stop date: Limited # of times, pain score 7-10 flumazenil No Heidy 0.2 mg, 2 Memoria 3-07 Leroy mL, Route: l 17:49: IVP, Drug form: INJ, PRN, Dosing Weight 136.364, kg, PRN Benzodiaze pine Reversal, Initial dose, Start date: 12/10/12 11:49:00, Duration: 30 day, Stop date: 01/09/13 12:48:00 ondansetron No Lisa 4 mg, 2 Me moria 3-07 [place] mL, Route: l 17:49: IVP, Drug form: INJ, ONCE, Dosing Weight 136.364, kg, PRN Nausea & Vomiting, Start date: 12/10/12 11:49:00 naloxone No Heidy 0.04 mg, M emoria 3-07 Leroy 0.1 mL, l 17:49: Route: Lolo 00 IVP, Drug form: INJ, Q2MIN, Dosing Weight 136.364, kg, PRN Narcotic Reversal, Start date: 12/10/12 11:49:00, Duration: 8 doses or times, Stop date: Limited # of times meperidine No Heidy 12.5 mg, Memoria 3-07 Leroy 0.25 mL, l 17:49: Route: Lolo 00 IVP, Drug form: INJ, Q30Min, Dosing Weight 136.364, kg, PRN Other -See Comment, For shivering, Start date: 12/10/12 11:49:00, Duration: 2 doses or times, Stop date: Limited # of times morphine No Heidy 2 mg, 0.2 Memoria Sulfate 3-07 Leroy mL, Route: l 17:49: IVP, Drug form: INJ, Q5Min, Dosing Weight 136.364, kg, PRN Pain Score 4-6, Start date: 12/10/12 11:49:00, Duration: 8 doses or times, Stop date: Limited # of times hydromorpho No Heidy 0.5 mg, Memoria ne 3-07 Leroy 0.25 mL, l 17:49: Route: IVP, Drug form: INJ, Q5Min, Dosing Weight 136.364, kg, PRN Pain, Start date: 12/10/12 11:49:00, Duration: 5 doses or times, Stop date: Limited # of times, pain score 7-10 flumazenil No Heidy 0.2 mg, 2 Memoria 3-07 Leroy mL, Route: l 17:49: IVP, Drug form: INJ, PRN, Dosing Weight 136.364, kg, PRN Benzodiaze pine Reversal, Initial dose, Start date: 12/10/12 11:49:00, Duration: 30 day, Stop date: 01/09/13 12:48:00 ondansetron No Lisa 4 mg, 2 Me moria 3-07 [place] mL, Route: l 17:49: IVP, Drug form: INJ, ONCE, Dosing Weight 136.364, kg, PRN Nausea & Vomiting, Start date: 12/10/12 11:49:00 naloxone No Heidy 0.04 mg, M emoria 3-07 Leroy 0.1 mL, l 17:49: Route: Lolo 00 IVP, Drug form: INJ, Q2MIN, Dosing Weight 136.364, kg, PRN Narcotic Reversal, Start date: 12/10/12 11:49:00, Duration: 8 doses or times, Stop date: Limited # of times meperidine No Heidy 12.5 mg, Memoria 3-07 Leroy 0.25 mL, l 17:49: Route: IVP, Drug form: INJ, Q30Min, Dosing Weight 136.364, kg, PRN Other -See Comment, For shivering, Start date: 12/10/12 11:49:00, Duration: 2 doses or times, Stop date: Limited # of times morphine No Heidy 2 mg, 0.2 Memoria Sulfate 3-07 Leroy mL, Route: l 17:49: IVP, Drug form: INJ, Q5Min, Dosing Weight 136.364, kg, PRN Pain Score 4-6, Start date: 12/10/12 11:49:00, Duration: 8 doses or times, Stop date: Limited # of times hydromorpho No Heidy 0.5 mg, Memoria ne 3-07 Leroy 0.25 mL, l 17:49: Route: IVP, Drug form: INJ, Q5Min, Dosing Weight 136.364, kg, PRN Pain, Start date: 12/10/12 11:49:00, Duration: 5 doses or times, Stop date: Limited # of times, pain score 7-10 flumazenil No Heidy 0.2 mg, 2 Memoria 3-07 Leroy mL, Route: l 17:49: IVP, Drug form: INJ, PRN, Dosing Weight 136.364, kg, PRN Benzodiaze pine Reversal, Initial dose, Start date: 12/10/12 11:49:00, Duration: 30 day, Stop date: 01/09/13 12:48:00 ondansetron No Lisa 4 mg, 2 Me moria 3-07 [place] mL, Route: l 17:49: IVP, Drug form: INJ, ONCE, Dosing Weight 136.364, kg, PRN Nausea & Vomiting, Start date: 12/10/12 11:49:00 naloxone No Heidy 0.04 mg, M emoria 3-07 Leroy 0.1 mL, l 17:49: Route: IVP, Drug form: INJ, Q2MIN, Dosing Weight 136.364, kg, PRN Narcotic Reversal, Start date: 12/10/12 11:49:00, Duration: 8 doses or times, Stop date: Limited # of times meperidine No Heidy 12.5 mg, Memoria 3-07 Leroy 0.25 mL, l 17:49: Route: IVP, Drug form: INJ, Q30Min, Dosing Weight 136.364, kg, PRN Other -See Comment, For shivering, Start date: 12/10/12 11:49:00, Duration: 2 doses or times, Stop date: Limited # of times morphine No Heidy 2 mg, 0.2 Memoria Sulfate 3-07 Leroy mL, Route: l 17:49: IVP, Drug form: INJ, Q5Min, Dosing Weight 136.364, kg, PRN Pain Score 4-6, Start date: 12/10/12 11:49:00, Duration: 8 doses or times, Stop date: Limited # of times hydromorpho No Heidy 0.5 mg, Memoria ne 3-07 Leroy 0.25 mL, l 17:49: Route: IVP, Drug form: INJ, Q5Min, Dosing Weight 136.364, kg, PRN Pain, Start date: 12/10/12 11:49:00, Duration: 5 doses or times, Stop date: Limited # of times, pain score 7-10 flumazenil No Heidy 0.2 mg, 2 Memoria 3-07 Leroy mL, Route: l 17:49: IVP, Drug form: INJ, PRN, Dosing Weight 136.364, kg, PRN Benzodiaze pine Reversal, Initial dose, Start date: 12/10/12 11:49:00, Duration: 30 day, Stop date: 01/09/13 12:48:00 ondansetron No Lisa 4 mg, 2 Me moria 3-07 [place] mL, Route: l 17:49: IVP, Drug form: INJ, ONCE, Dosing Weight 136.364, kg, PRN Nausea & Vomiting, Start date: 12/10/12 11:49:00 naloxone No Heidy 0.04 mg, M emoria 3-07 Leroy 0.1 mL, l 17:49: Route: Lolo 00 IVP, Drug form: INJ, Q2MIN, Dosing Weight 136.364, kg, PRN Narcotic Reversal, Start date: 12/10/12 11:49:00, Duration: 8 doses or times, Stop date: Limited # of times meperidine No Heidy 12.5 mg, Memoria 3-07 Leroy 0.25 mL, l 17:49: Route: IVP, Drug form: INJ, Q30Min, Dosing Weight 136.364, kg, PRN Other -See Comment, For shivering, Start date: 12/10/12 11:49:00, Duration: 2 doses or times, Stop date: Limited # of times morphine No Heidy 2 mg, 0.2 Memoria Sulfate 3-07 Leroy mL, Route: l 17:49: IVP, Drug form: INJ, Q5Min, Dosing Weight 136.364, kg, PRN Pain Score 4-6, Start date: 12/10/12 11:49:00, Duration: 8 doses or times, Stop date: Limited # of times hydromorpho No Heidy 0.5 mg, Memoria ne 3-07 Leroy 0.25 mL, l 17:49: Route: Idpesh 00 IVP, Drug form: INJ, Q5Min, Dosing Weight 136.364, kg, PRN Pain, Start date: 12/10/12 11:49:00, Duration: 5 doses or times, Stop date: Limited # of times, pain score 7-10 flumazenil No Heidy 0.2 mg, 2 Memoria 3-07 Leroy mL, Route: l 17:49: IVP, Drug form: INJ, PRN, Dosing Weight 136.364, kg, PRN Benzodiaze pine Reversal, Initial dose, Start date: 12/10/12 11:49:00, Duration: 30 day, Stop date: 01/09/13 12:48:00 ondansetron No Lisa 4 mg, 2 Me moria 3-07 [place] mL, Route: l 17:49: IVP, Drug form: INJ, ONCE, Dosing Weight 136.364, kg, PRN Nausea & Vomiting, Start date: 12/10/12 11:49:00 naloxone No Heidy 0.04 mg, M emoria 3-07 Leroy 0.1 mL, l 17:49: Route: IVP, Drug form: INJ, Q2MIN, Dosing Weight 136.364, kg, PRN Narcotic Reversal, Start date: 12/10/12 11:49:00, Duration: 8 doses or times, Stop date: Limited # of times meperidine No Heidy 12.5 mg, Memoria 3-07 Leroy 0.25 mL, l 17:49: Route: IVP, Drug form: INJ, Q30Min, Dosing Weight 136.364, kg, PRN Other -See Comment, For shivering, Start date: 12/10/12 11:49:00, Duration: 2 doses or times, Stop date: Limited # of times morphine No Heidy 2 mg, 0.2 Memoria Sulfate 3-07 Leroy mL, Route: l 17:49: IVP, Drug form: INJ, Q5Min, Dosing Weight 136.364, kg, PRN Pain Score 4-6, Start date: 12/10/12 11:49:00, Duration: 8 doses or times, Stop date: Limited # of times hydromorpho No Heidy 0.5 mg, Memoria ne 3-07 Leroy 0.25 mL, l 17:49: Route: Lolo 00 IVP, Drug form: INJ, Q5Min, Dosing Weight 136.364, kg, PRN Pain, Start date: 12/10/12 11:49:00, Duration: 5 doses or times, Stop date: Limited # of times, pain score 7-10 flumazenil No Heidy 0.2 mg, 2 Memoria 3-07 Leroy mL, Route: l 17:49: IVP, Drug form: INJ, PRN, Dosing Weight 136.364, kg, PRN Benzodiaze pine Reversal, Initial dose, Start date: 12/10/12 11:49:00, Duration: 30 day, Stop date: 01/09/13 12:48:00 ondansetron No Lisa 4 mg, 2 Me moria 3-07 [place] mL, Route: l 17:49: IVP, Drug form: INJ, ONCE, Dosing Weight 136.364, kg, PRN Nausea & Vomiting, Start date: 12/10/12 11:49:00 naloxone No Heidy 0.04 mg, M emoria 3-07 Leroy 0.1 mL, l 17:49: Route: IVP, Drug form: INJ, Q2MIN, Dosing Weight 136.364, kg, PRN Narcotic Reversal, Start date: 12/10/12 11:49:00, Duration: 8 doses or times, Stop date: Limited # of times meperidine No Heidy 12.5 mg, Memoria 3-07 Leroy 0.25 mL, l 17:49: Route: IVP, Drug form: INJ, Q30Min, Dosing Weight 136.364, kg, PRN Other -See Comment, For shivering, Start date: 12/10/12 11:49:00, Duration: 2 doses or times, Stop date: Limited # of times morphine No Heidy 2 mg, 0.2 Memoria Sulfate 3-07 Leroy mL, Route: l 17:49: IVP, Drug form: INJ, Q5Min, Dosing Weight 136.364, kg, PRN Pain Score 4-6, Start date: 12/10/12 11:49:00, Duration: 8 doses or times, Stop date: Limited # of times hydromorpho No Heidy 0.5 mg, Memoria ne 3-07 Leroy 0.25 mL, l 17:49: Route: Lolo 00 IVP, Drug form: INJ, Q5Min, Dosing Weight 136.364, kg, PRN Pain, Start date: 12/10/12 11:49:00, Duration: 5 doses or times, Stop date: Limited # of times, pain score 7-10 flumazenil 2012- No Heidy 0.2 mg, 2 Memoria 3-07 Leroy mL, Route: l 17:49: IVP, Drug form: INJ, PRN, Dosing Weight 136.364, kg, PRN Benzodiaze pine Reversal, Initial dose, Start date: 12/10/12 11:49:00, Duration: 30 day, Stop date: 01/09/13 12:48:00 ondansetron 2012- No Lisa 4 mg, 2 Me moria 3-07 [place] mL, Route: l 17:49: IVP, Drug form: INJ, ONCE, Dosing Weight 136.364, kg, PRN Nausea & Vomiting, Start date: 12/10/12 11:49:00 naloxone 2012- No Heidy 0.04 mg, M emoria 3-07 Leroy 0.1 mL, l 17:49: Route: IVP, Drug form: INJ, Q2MIN, Dosing Weight 136.364, kg, PRN Narcotic Reversal, Start date: 12/10/12 11:49:00, Duration: 8 doses or times, Stop date: Limited # of times meperidine No Heidy 12.5 mg, Memoria 3-07 Leroy 0.25 mL, l 17:49: Route: IVP, Drug form: INJ, Q30Min, Dosing Weight 136.364, kg, PRN Other -See Comment, For shivering, Start date: 12/10/12 11:49:00, Duration: 2 doses or times, Stop date: Limited # of times morphine 2012- No Heidy 2 mg, 0.2 Memoria Sulfate 3-07 Leroy mL, Route: l 17:49: IVP, Drug form: INJ, Q5Min, Dosing Weight 136.364, kg, PRN Pain Score 4-6, Start date: 12/10/12 11:49:00, Duration: 8 doses or times, Stop date: Limited # of times hydromorpho No Heidy 0.5 mg, Memoria ne 3-07 Lreoy 0.25 mL, l 17:49: Route: Dipesh 00 IVP, Drug form: INJ, Q5Min, Dosing Weight 136.364, kg, PRN Pain, Start date: 12/10/12 11:49:00, Duration: 5 doses or times, Stop date: Limited # of times, pain score 7-10 flumazenil No Heidy 0.2 mg, 2 Memoria 3-07 Leroy mL, Route: l 17:49: IVP, Drug form: INJ, PRN, Dosing Weight 136.364, kg, PRN Benzodiaze pine Reversal, Initial dose, Start date: 12/10/12 11:49:00, Duration: 30 day, Stop date: 01/09/13 12:48:00 ondansetron No Lisa 4 mg, 2 Me moria 3-07 [place] mL, Route: l 17:49: IVP, Drug form: INJ, ONCE, Dosing Weight 136.364, kg, PRN Nausea & Vomiting, Start date: 12/10/12 11:49:00 naloxone No Heidy 0.04 mg, M emoria 3-07 Leroy 0.1 mL, l 17:49: Route: IVP, Drug form: INJ, Q2MIN, Dosing Weight 136.364, kg, PRN Narcotic Reversal, Start date: 12/10/12 11:49:00, Duration: 8 doses or times, Stop date: Limited # of times meperidine No Heidy 12.5 mg, Memoria 3-07 Leroy 0.25 mL, l 17:49: Route: Lolo 00 IVP, Drug form: INJ, Q30Min, Dosing Weight 136.364, kg, PRN Other -See Comment, For shivering, Start date: 12/10/12 11:49:00, Duration: 2 doses or times, Stop date: Limited # of times morphine No Heidy 2 mg, 0.2 Memoria Sulfate 3-07 Leroy mL, Route: l 17:49: IVP, Drug form: INJ, Q5Min, Dosing Weight 136.364, kg, PRN Pain Score 4-6, Start date: 12/10/12 11:49:00, Duration: 8 doses or times, Stop date: Limited # of times hydromorpho No Heidy 0.5 mg, Memoria ne 3-07 Leroy 0.25 mL, l 17:49: Route: Dipesh IVP, Drug form: INJ, Q5Min, Dosing Weight 136.364, kg, PRN Pain, Start date: 12/10/12 11:49:00, Duration: 5 doses or times, Stop date: Limited # of times, pain score 7-10 flumazenil 2012- No Heidy 0.2 mg, 2 Memoria 3-07 Leroy mL, Route: l 17:49: IVP, Drug form: INJ, PRN, Dosing Weight 136.364, kg, PRN Benzodiaze pine Reversal, Initial dose, Start date: 12/10/12 11:49:00, Duration: 30 day, Stop date: 01/09/13 12:48:00 ondansetron No Lisa 4 mg, 2 Me moria 3-07 [place] mL, Route: l 17:49: IVP, Drug form: INJ, ONCE, Dosing Weight 136.364, kg, PRN Nausea & Vomiting, Start date: 12/10/12 11:49:00 naloxone No Heidy 0.04 mg, M emoria 3-07 Leroy 0.1 mL, l 17:49: Route: Lolo 00 IVP, Drug form: INJ, Q2MIN, Dosing Weight 136.364, kg, PRN Narcotic Reversal, Start date: 12/10/12 11:49:00, Duration: 8 doses or times, Stop date: Limited # of times meperidine No Heidy 12.5 mg, Memoria 3-07 Leroy 0.25 mL, l 17:49: Route: Dipesh 00 IVP, Drug form: INJ, Q30Min, Dosing Weight 136.364, kg, PRN Other -See Comment, For shivering, Start date: 12/10/12 11:49:00, Duration: 2 doses or times, Stop date: Limited # of times morphine No Heidy 2 mg, 0.2 Memoria Sulfate 3-07 Leroy mL, Route: l 17:49: IVP, Drug form: INJ, Q5Min, Dosing Weight 136.364, kg, PRN Pain Score 4-6, Start date: 12/10/12 11:49:00, Duration: 8 doses or times, Stop date: Limited # of times hydromorpho 2012- No Heidy 0.5 mg, Memoria ne 3-07 Leroy 0.25 mL, l 17:49: Route: IVP, Drug form: INJ, Q5Min, Dosing Weight 136.364, kg, PRN Pain, Start date: 12/10/12 11:49:00, Duration: 5 doses or times, Stop date: Limited # of times, pain score 7-10 flumazenil No Heidy 0.2 mg, 2 Memoria 3-07 Leroy mL, Route: l 17:49: IVP, Drug form: INJ, PRN, Dosing Weight 136.364, kg, PRN Benzodiaze pine Reversal, Initial dose, Start date: 12/10/12 11:49:00, Duration: 30 day, Stop date: 01/09/13 12:48:00 ondansetron No Lisa 4 mg, 2 Me moria 3-07 [place] mL, Route: l 17:49: IVP, Drug form: INJ, ONCE, Dosing Weight 136.364, kg, PRN Nausea & Vomiting, Start date: 12/10/12 11:49:00 naloxone No Heidy 0.04 mg, M emoria 3-07 Leroy 0.1 mL, l 17:49: Route: IVP, Drug form: INJ, Q2MIN, Dosing Weight 136.364, kg, PRN Narcotic Reversal, Start date: 12/10/12 11:49:00, Duration: 8 doses or times, Stop date: Limited # of times meperidine No Heidy 12.5 mg, Memoria 3-07 Leroy 0.25 mL, l 17:49: Route: IVP, Drug form: INJ, Q30Min, Dosing Weight 136.364, kg, PRN Other -See Comment, For shivering, Start date: 12/10/12 11:49:00, Duration: 2 doses or times, Stop date: Limited # of times morphine No Heidy 2 mg, 0.2 Memoria Sulfate 3-07 Leroy mL, Route: l 17:49: IVP, Drug form: INJ, Q5Min, Dosing Weight 136.364, kg, PRN Pain Score 4-6, Start date: 12/10/12 11:49:00, Duration: 8 doses or times, Stop date: Limited # of times hydromorpho No Heidy 0.5 mg, Memoria ne 3-07 Leroy 0.25 mL, l 17:49: Route: Lolo IVP, Drug form: INJ, Q5Min, Dosing Weight 136.364, kg, PRN Pain, Start date: 12/10/12 11:49:00, Duration: 5 doses or times, Stop date: Limited # of times, pain score 7-10 flumazenil No Heidy 0.2 mg, 2 Memoria 3-07 Leroy mL, Route: l 17:49: IVP, Drug form: INJ, PRN, Dosing Weight 136.364, kg, PRN Benzodiaze pine Reversal, Initial dose, Start date: 12/10/12 11:49:00, Duration: 30 day, Stop date: 01/09/13 12:48:00 ondansetron No Lisa 4 mg, 2 Me moria 3-07 [place] mL, Route: l 17:49: IVP, Drug form: INJ, ONCE, Dosing Weight 136.364, kg, PRN Nausea & Vomiting, Start date: 12/10/12 11:49:00 naloxone No Heidy 0.04 mg, M emoria 3-07 Leroy 0.1 mL, l 17:49: Route: Dipesh 00 IVP, Drug form: INJ, Q2MIN, Dosing Weight 136.364, kg, PRN Narcotic Reversal, Start date: 12/10/12 11:49:00, Duration: 8 doses or times, Stop date: Limited # of times meperidine No Heidy 12.5 mg, Memoria 3-07 Leroy 0.25 mL, l 17:49: Route: Lolo 00 IVP, Drug form: INJ, Q30Min, Dosing Weight 136.364, kg, PRN Other -See Comment, For shivering, Start date: 12/10/12 11:49:00, Duration: 2 doses or times, Stop date: Limited # of times morphine No Heidy 2 mg, 0.2 Memoria Sulfate 3-07 Leroy mL, Route: l 17:49: IVP, Drug form: INJ, Q5Min, Dosing Weight 136.364, kg, PRN Pain Score 4-6, Start date: 12/10/12 11:49:00, Duration: 8 doses or times, Stop date: Limited # of times hydromorpho No Heidy 0.5 mg, Memoria ne 3-07 Leroy 0.25 mL, l 17:49: Route: Dipesh 00 IVP, Drug form: INJ, Q5Min, Dosing Weight 136.364, kg, PRN Pain, Start date: 12/10/12 11:49:00, Duration: 5 doses or times, Stop date: Limited # of times, pain score 7-10 flumazenil No Heidy 0.2 mg, 2 Memoria 3-07 Leroy mL, Route: l 17:49: IVP, Drug form: INJ, PRN, Dosing Weight 136.364, kg, PRN Benzodiaze pine Reversal, Initial dose, Start date: 12/10/12 11:49:00, Duration: 30 day, Stop date: 01/09/13 12:48:00 ondansetron No Lisa 4 mg, 2 Me moria 3-07 [place] mL, Route: l 17:49: IVP, Drug form: INJ, ONCE, Dosing Weight 136.364, kg, PRN Nausea & Vomiting, Start date: 12/10/12 11:49:00 naloxone No Heidy 0.04 mg, M emoria 3-07 Leroy 0.1 mL, l 17:49: Route: 00 IVP, Drug form: INJ, Q2MIN, Dosing Weight 136.364, kg, PRN Narcotic Reversal, Start date: 12/10/12 11:49:00, Duration: 8 doses or times, Stop date: Limited # of times meperidine No Heidy 12.5 mg, Memoria 3-07 Leroy 0.25 mL, l 17:49: Route: IVP, Drug form: INJ, Q30Min, Dosing Weight 136.364, kg, PRN Other -See Comment, For shivering, Start date: 12/10/12 11:49:00, Duration: 2 doses or times, Stop date: Limited # of times morphine 2012- No Heidy 2 mg, 0.2 Memoria Sulfate 3-07 Leroy mL, Route: l 17:49: IVP, Drug form: INJ, Q5Min, Dosing Weight 136.364, kg, PRN Pain Score 4-6, Start date: 12/10/12 11:49:00, Duration: 8 doses or times, Stop date: Limited # of times hydromorpho No Heidy 0.5 mg, Memoria ne 3-07 Leroy 0.25 mL, l 17:49: Route: IVP, Drug form: INJ, Q5Min, Dosing Weight 136.364, kg, PRN Pain, Start date: 12/10/12 11:49:00, Duration: 5 doses or times, Stop date: Limited # of times, pain score 7-10 flumazenil No Heidy 0.2 mg, 2 Memoria 3-07 Leroy mL, Route: l 17:49: IVP, Drug form: INJ, PRN, Dosing Weight 136.364, kg, PRN Benzodiaze pine Reversal, Initial dose, Start date: 12/10/12 11:49:00, Duration: 30 day, Stop date: 01/09/13 12:48:00 ondansetron No Lisa 4 mg, 2 Me moria 3-07 [place] mL, Route: l 17:49: IVP, Drug form: INJ, ONCE, Dosing Weight 136.364, kg, PRN Nausea & Vomiting, Start date: 12/10/12 11:49:00 naloxone No Heidy 0.04 mg, M emoria 3-07 Leroy 0.1 mL, l 17:49: Route: IVP, Drug form: INJ, Q2MIN, Dosing Weight 136.364, kg, PRN Narcotic Reversal, Start date: 12/10/12 11:49:00, Duration: 8 doses or times, Stop date: Limited # of times meperidine No Heidy 12.5 mg, Memoria 3-07 Leroy 0.25 mL, l 17:49: Route: Lolo 00 IVP, Drug form: INJ, Q30Min, Dosing Weight 136.364, kg, PRN Other -See Comment, For shivering, Start date: 12/10/12 11:49:00, Duration: 2 doses or times, Stop date: Limited # of times morphine No Heidy 2 mg, 0.2 Memoria Sulfate 3-07 Leroy mL, Route: l 17:49: IVP, Drug form: INJ, Q5Min, Dosing Weight 136.364, kg, PRN Pain Score 4-6, Start date: 12/10/12 11:49:00, Duration: 8 doses or times, Stop date: Limited # of times hydromorpho No Heidy 0.5 mg, Memoria ne 3-07 Leroy 0.25 mL, l 17:49: Route: Lolo 00 IVP, Drug form: INJ, Q5Min, Dosing Weight 136.364, kg, PRN Pain, Start date: 12/10/12 11:49:00, Duration: 5 doses or times, Stop date: Limited # of times, pain score 7-10 flumazenil No Heidy 0.2 mg, 2 Memoria 3-07 Leroy mL, Route: l 17:49: IVP, Drug form: INJ, PRN, Dosing Weight 136.364, kg, PRN Benzodiaze pine Reversal, Initial dose, Start date: 12/10/12 11:49:00, Duration: 30 day, Stop date: 01/09/13 12:48:00 ondansetron No Lisa 4 mg, 2 Me moria 3-07 [place] mL, Route: l 17:49: IVP, Drug form: INJ, ONCE, Dosing Weight 136.364, kg, PRN Nausea & Vomiting, Start date: 12/10/12 11:49:00 naloxone No Heidy 0.04 mg, M emoria 3-07 Leroy 0.1 mL, l 17:49: Route: 00 IVP, Drug form: INJ, Q2MIN, Dosing Weight 136.364, kg, PRN Narcotic Reversal, Start date: 12/10/12 11:49:00, Duration: 8 doses or times, Stop date: Limited # of times meperidine No Heidy 12.5 mg, Memoria 3-07 Leroy 0.25 mL, l 17:49: Route: Lolo 00 IVP, Drug form: INJ, Q30Min, Dosing Weight 136.364, kg, PRN Other -See Comment, For shivering, Start date: 12/10/12 11:49:00, Duration: 2 doses or times, Stop date: Limited # of times morphine No Heidy 2 mg, 0.2 Memoria Sulfate 3-07 Leroy mL, Route: l 17:49: IVP, Drug form: INJ, Q5Min, Dosing Weight 136.364, kg, PRN Pain Score 4-6, Start date: 12/10/12 11:49:00, Duration: 8 doses or times, Stop date: Limited # of times hydromorpho No Heidy 0.5 mg, Memoria ne 3-07 Leroy 0.25 mL, l 17:49: Route: Dipesh 00 IVP, Drug form: INJ, Q5Min, Dosing Weight 136.364, kg, PRN Pain, Start date: 12/10/12 11:49:00, Duration: 5 doses or times, Stop date: Limited # of times, pain score 7-10 flumazenil No Heidy 0.2 mg, 2 Memoria 3-07 Leroy mL, Route: l 17:49: IVP, Drug form: INJ, PRN, Dosing Weight 136.364, kg, PRN Benzodiaze pine Reversal, Initial dose, Start date: 12/10/12 11:49:00, Duration: 30 day, Stop date: 01/09/13 12:48:00 ondansetron No Lisa 4 mg, 2 Me moria 3-07 [place] mL, Route: l 17:49: IVP, Drug form: INJ, ONCE, Dosing Weight 136.364, kg, PRN Nausea & Vomiting, Start date: 12/10/12 11:49:00 naloxone No Heidy 0.04 mg, M emoria 3-07 Leroy 0.1 mL, l 17:49: Route: Dipesh IVP, Drug form: INJ, Q2MIN, Dosing Weight 136.364, kg, PRN Narcotic Reversal, Start date: 12/10/12 11:49:00, Duration: 8 doses or times, Stop date: Limited # of times meperidine No Heidy 12.5 mg, Memoria 3-07 Leroy 0.25 mL, l 17:49: Route: Dipesh IVP, Drug form: INJ, Q30Min, Dosing Weight 136.364, kg, PRN Other -See Comment, For shivering, Start date: 12/10/12 11:49:00, Duration: 2 doses or times, Stop date: Limited # of times morphine No Heidy 2 mg, 0.2 Memoria Sulfate 3-07 Leroy mL, Route: l 17:49: IVP, Drug form: INJ, Q5Min, Dosing Weight 136.364, kg, PRN Pain Score 4-6, Start date: 12/10/12 11:49:00, Duration: 8 doses or times, Stop date: Limited # of times hydromorpho No Hediy 0.5 mg, Memoria ne 3-07 Leroy 0.25 mL, l 17:49: Route: IVP, Drug form: INJ, Q5Min, Dosing Weight 136.364, kg, PRN Pain, Start date: 12/10/12 11:49:00, Duration: 5 doses or times, Stop date: Limited # of times, pain score 7-10 flumazenil No Heidy 0.2 mg, 2 Memoria 3-07 Leroy mL, Route: l 17:49: IVP, Drug form: INJ, PRN, Dosing Weight 136.364, kg, PRN Benzodiaze pine Reversal, Initial dose, Start date: 12/10/12 11:49:00, Duration: 30 day, Stop date: 01/09/13 12:48:00 ondansetron No Lisa 4 mg, 2 Me moria 3-07 [place] mL, Route: l 17:49: IVP, Drug form: INJ, ONCE, Dosing Weight 136.364, kg, PRN Nausea & Vomiting, Start date: 12/10/12 11:49:00 naloxone No Heidy 0.04 mg, M emoria 3-07 Leroy 0.1 mL, l 17:49: Route: Dipesh 00 IVP, Drug form: INJ, Q2MIN, Dosing Weight 136.364, kg, PRN Narcotic Reversal, Start date: 12/10/12 11:49:00, Duration: 8 doses or times, Stop date: Limited # of times meperidine No Heidy 12.5 mg, Memoria 3-07 Leroy 0.25 mL, l 17:49: Route: Dipesh 00 IVP, Drug form: INJ, Q30Min, Dosing Weight 136.364, kg, PRN Other -See Comment, For shivering, Start date: 12/10/12 11:49:00, Duration: 2 doses or times, Stop date: Limited # of times morphine No Heidy 2 mg, 0.2 Memoria Sulfate 3-07 Leroy mL, Route: l 17:49: IVP, Drug form: INJ, Q5Min, Dosing Weight 136.364, kg, PRN Pain Score 4-6, Start date: 12/10/12 11:49:00, Duration: 8 doses or times, Stop date: Limited # of times hydromorpho No Heidy 0.5 mg, Memoria ne 3-07 Leroy 0.25 mL, l 17:49: Route: IVP, Drug form: INJ, Q5Min, Dosing Weight 136.364, kg, PRN Pain, Start date: 12/10/12 11:49:00, Duration: 5 doses or times, Stop date: Limited # of times, pain score 7-10 flumazenil No Heidy 0.2 mg, 2 Memoria 3-07 Leroy mL, Route: l 17:49: IVP, Drug form: INJ, PRN, Dosing Weight 136.364, kg, PRN Benzodiaze pine Reversal, Initial dose, Start date: 12/10/12 11:49:00, Duration: 30 day, Stop date: 01/09/13 12:48:00 ondansetron No Lisa 4 mg, 2 Me moria 3-07 [place] mL, Route: l 17:49: IVP, Drug form: INJ, ONCE, Dosing Weight 136.364, kg, PRN Nausea & Vomiting, Start date: 12/10/12 11:49:00 naloxone No Heidy 0.04 mg, M ermiasria 3-07 Leroy 0.1 mL, l 17:49: Route: IVP, Drug form: INJ, Q2MIN, Dosing Weight 136.364, kg, PRN Narcotic Reversal, Start date: 12/10/12 11:49:00, Duration: 8 doses or times, Stop date: Limited # of times meperidine No Heidy 12.5 mg, Memoria 3-07 Leroy 0.25 mL, l 17:49: Route: IVP, Drug form: INJ, Q30Min, Dosing Weight 136.364, kg, PRN Other -See Comment, For shivering, Start date: 12/10/12 11:49:00, Duration: 2 doses or times, Stop date: Limited # of times morphine No Heidy 2 mg, 0.2 Memoria Sulfate 3-07 Leroy mL, Route: l 17:49: IVP, Drug form: INJ, Q5Min, Dosing Weight 136.364, kg, PRN Pain Score 4-6, Start date: 12/10/12 11:49:00, Duration: 8 doses or times, Stop date: Limited # of times hydromorpho No Heidy 0.5 mg, Memoria ne 3-07 Leroy 0.25 mL, l 17:49: Route: IVP, Drug form: INJ, Q5Min, Dosing Weight 136.364, kg, PRN Pain, Start date: 12/10/12 11:49:00, Duration: 5 doses or times, Stop date: Limited # of times, pain score 7-10 flumazenil No Heidy 0.2 mg, 2 Memoria 3-07 Leroy mL, Route: l 17:49: IVP, Drug form: INJ, PRN, Dosing Weight 136.364, kg, PRN Benzodiaze pine Reversal, Initial dose, Start date: 12/10/12 11:49:00, Duration: 30 day, Stop date: 01/09/13 12:48:00 ondansetron No Lisa 4 mg, 2 Me moria 3-07 [place] mL, Route: l 17:49: IVP, Drug form: INJ, ONCE, Dosing Weight 136.364, kg, PRN Nausea & Vomiting, Start date: 12/10/12 11:49:00 naloxone No Heidy 0.04 mg, M emoria 3-07 Leroy 0.1 mL, l 17:49: Route: Lolo 00 IVP, Drug form: INJ, Q2MIN, Dosing Weight 136.364, kg, PRN Narcotic Reversal, Start date: 12/10/12 11:49:00, Duration: 8 doses or times, Stop date: Limited # of times meperidine No Heidy 12.5 mg, Memoria 3-07 Leroy 0.25 mL, l 17:49: Route: IVP, Drug form: INJ, Q30Min, Dosing Weight 136.364, kg, PRN Other -See Comment, For shivering, Start date: 12/10/12 11:49:00, Duration: 2 doses or times, Stop date: Limited # of times morphine No Heidy 2 mg, 0.2 Memoria Sulfate 3-07 Leroy mL, Route: l 17:49: IVP, Drug form: INJ, Q5Min, Dosing Weight 136.364, kg, PRN Pain Score 4-6, Start date: 12/10/12 11:49:00, Duration: 8 doses or times, Stop date: Limited # of times hydromorpho No Heidy 0.5 mg, Memoria ne 3-07 Leroy 0.25 mL, l 17:49: Route: 00 IVP, Drug form: INJ, Q5Min, Dosing Weight 136.364, kg, PRN Pain, Start date: 12/10/12 11:49:00, Duration: 5 doses or times, Stop date: Limited # of times, pain score 7-10 flumazenil No Heidy 0.2 mg, 2 Memoria 3-07 Leroy mL, Route: l 17:49: IVP, Drug form: INJ, PRN, Dosing Weight 136.364, kg, PRN Benzodiaze pine Reversal, Initial dose, Start date: 12/10/12 11:49:00, Duration: 30 day, Stop date: 01/09/13 12:48:00 ondansetron No Lisa 4 mg, 2 Me moria 3-07 [place] mL, Route: l 17:49: IVP, Drug form: INJ, ONCE, Dosing Weight 136.364, kg, PRN Nausea & Vomiting, Start date: 12/10/12 11:49:00 naloxone No Heidy 0.04 mg, M emoria 3-07 Leroy 0.1 mL, l 17:49: Route: IVP, Drug form: INJ, Q2MIN, Dosing Weight 136.364, kg, PRN Narcotic Reversal, Start date: 12/10/12 11:49:00, Duration: 8 doses or times, Stop date: Limited # of times meperidine No Heidy 12.5 mg, Memoria 3-07 Leroy 0.25 mL, l 17:49: Route: IVP, Drug form: INJ, Q30Min, Dosing Weight 136.364, kg, PRN Other -See Comment, For shivering, Start date: 12/10/12 11:49:00, Duration: 2 doses or times, Stop date: Limited # of times morphine No Heidy 2 mg, 0.2 Memoria Sulfate 3-07 Leroy mL, Route: l 17:49: IVP, Drug form: INJ, Q5Min, Dosing Weight 136.364, kg, PRN Pain Score 4-6, Start date: 12/10/12 11:49:00, Duration: 8 doses or times, Stop date: Limited # of times hydromorpho No Heidy 0.5 mg, Memoria ne 3-07 Leroy 0.25 mL, l 17:49: Route: IVP, Drug form: INJ, Q5Min, Dosing Weight 136.364, kg, PRN Pain, Start date: 12/10/12 11:49:00, Duration: 5 doses or times, Stop date: Limited # of times, pain score 7-10 flumazenil No Heidy 0.2 mg, 2 Memoria 3-07 Leroy mL, Route: l 17:49: IVP, Drug form: INJ, PRN, Dosing Weight 136.364, kg, PRN Benzodiaze pine Reversal, Initial dose, Start date: 12/10/12 11:49:00, Duration: 30 day, Stop date: 01/09/13 12:48:00 ondansetron No Lisa 4 mg, 2 Me moria 3-07 [place] mL, Route: l 17:49: IVP, Drug form: INJ, ONCE, Dosing Weight 136.364, kg, PRN Nausea & Vomiting, Start date: 12/10/12 11:49:00 naloxone No Heidy 0.04 mg, M emoria 3-07 Leroy 0.1 mL, l 17:49: Route: IVP, Drug form: INJ, Q2MIN, Dosing Weight 136.364, kg, PRN Narcotic Reversal, Start date: 12/10/12 11:49:00, Duration: 8 doses or times, Stop date: Limited # of times meperidine No Heidy 12.5 mg, Memoria 3-07 Leroy 0.25 mL, l 17:49: Route: IVP, Drug form: INJ, Q30Min, Dosing Weight 136.364, kg, PRN Other -See Comment, For shivering, Start date: 12/10/12 11:49:00, Duration: 2 doses or times, Stop date: Limited # of times morphine No Heidy 2 mg, 0.2 Memoria Sulfate 3-07 Leroy mL, Route: l 17:49: IVP, Drug form: INJ, Q5Min, Dosing Weight 136.364, kg, PRN Pain Score 4-6, Start date: 12/10/12 11:49:00, Duration: 8 doses or times, Stop date: Limited # of times hydromorpho No Heidy 0.5 mg, Memoria ne 3-07 Leroy 0.25 mL, l 17:49: Route: Lolo 00 IVP, Drug form: INJ, Q5Min, Dosing Weight 136.364, kg, PRN Pain, Start date: 12/10/12 11:49:00, Duration: 5 doses or times, Stop date: Limited # of times, pain score 7-10 flumazenil 2012- No Heidy 0.2 mg, 2 Memoria 3-07 Leroy mL, Route: l 17:49: IVP, Drug form: INJ, PRN, Dosing Weight 136.364, kg, PRN Benzodiaze pine Reversal, Initial dose, Start date: 12/10/12 11:49:00, Duration: 30 day, Stop date: 01/09/13 12:48:00 ondansetron 2012- No Lisa 4 mg, 2 Me moria 3-07 [place] mL, Route: l 17:49: IVP, Drug form: INJ, ONCE, Dosing Weight 136.364, kg, PRN Nausea & Vomiting, Start date: 12/10/12 11:49:00 naloxone 2012- No Heidy 0.04 mg, M emoria 3-07 Leroy 0.1 mL, l 17:49: Route: IVP, Drug form: INJ, Q2MIN, Dosing Weight 136.364, kg, PRN Narcotic Reversal, Start date: 12/10/12 11:49:00, Duration: 8 doses or times, Stop date: Limited # of times meperidine 2012- No Heidy 12.5 mg, Memoria 3-07 Leroy 0.25 mL, l 17:49: Route: IVP, Drug form: INJ, Q30Min, Dosing Weight 136.364, kg, PRN Other -See Comment, For shivering, Start date: 12/10/12 11:49:00, Duration: 2 doses or times, Stop date: Limited # of times morphine 2012-0 No Heidy 2 mg, 0.2 Memoria Sulfate 3-07 Leroy mL, Route: l 17:49: IVP, Drug form: INJ, Q5Min, Dosing Weight 136.364, kg, PRN Pain Score 4-6, Start date: 12/10/12 11:49:00, Duration: 8 doses or times, Stop date: Limited # of times hydromorpho 2012-0 No Heidy 0.5 mg, Memoria ne 3-07 Leroy 0.25 mL, l 17:49: Route: IVP, Drug form: INJ, Q5Min, Dosing Weight 136.364, kg, PRN Pain, Start date: 12/10/12 11:49:00, Duration: 5 doses or times, Stop date: Limited # of times, pain score 7-10 flumazenil No Heidy 0.2 mg, 2 Memoria 3-07 Leroy mL, Route: l 17:49: IVP, Drug form: INJ, PRN, Dosing Weight 136.364, kg, PRN Benzodiaze pine Reversal, Initial dose, Start date: 12/10/12 11:49:00, Duration: 30 day, Stop date: 01/09/13 12:48:00 ondansetron 2012- No Lisa 4 mg, 2 Me moria 3-07 [place] mL, Route: l 17:49: IVP, Drug form: INJ, ONCE, Dosing Weight 136.364, kg, PRN Nausea & Vomiting, Start date: 12/10/12 11:49:00 naloxone No Heidy 0.04 mg, M emoria 3-07 Leroy 0.1 mL, l 17:49: Route: IVP, Drug form: INJ, Q2MIN, Dosing Weight 136.364, kg, PRN Narcotic Reversal, Start date: 12/10/12 11:49:00, Duration: 8 doses or times, Stop date: Limited # of times meperidine No Heidy 12.5 mg, Memoria 3-07 Leroy 0.25 mL, l 17:49: Route: IVP, Drug form: INJ, Q30Min, Dosing Weight 136.364, kg, PRN Other -See Comment, For shivering, Start date: 12/10/12 11:49:00, Duration: 2 doses or times, Stop date: Limited # of times morphine 0 No Heidy 2 mg, 0.2 Memoria Sulfate 3-07 Leroy mL, Route: l 17:49: IVP, Drug form: INJ, Q5Min, Dosing Weight 136.364, kg, PRN Pain Score 4-6, Start date: 12/10/12 11:49:00, Duration: 8 doses or times, Stop date: Limited # of times hydromorpho No Heidy 0.5 mg, Memoria ne 3-07 Leroy 0.25 mL, l 17:49: Route: Lolo IVP, Drug form: INJ, Q5Min, Dosing Weight 136.364, kg, PRN Pain, Start date: 12/10/12 11:49:00, Duration: 5 doses or times, Stop date: Limited # of times, pain score 7-10 flumazenil No Heidy 0.2 mg, 2 Memoria 3-07 Leroy mL, Route: l 17:49: IVP, Drug form: INJ, PRN, Dosing Weight 136.364, kg, PRN Benzodiaze pine Reversal, Initial dose, Start date: 12/10/12 11:49:00, Duration: 30 day, Stop date: 01/09/13 12:48:00 ondansetron No Lisa 4 mg, 2 Me moria 3-07 [place] mL, Route: l 17:49: IVP, Drug form: INJ, ONCE, Dosing Weight 136.364, kg, PRN Nausea & Vomiting, Start date: 12/10/12 11:49:00 naloxone No Heidy 0.04 mg, M emoria 3-07 Leroy 0.1 mL, l 17:49: Route: Dipesh 00 IVP, Drug form: INJ, Q2MIN, Dosing Weight 136.364, kg, PRN Narcotic Reversal, Start date: 12/10/12 11:49:00, Duration: 8 doses or times, Stop date: Limited # of times meperidine No Heidy 12.5 mg, Memoria 3-07 Leroy 0.25 mL, l 17:49: Route: Lolo 00 IVP, Drug form: INJ, Q30Min, Dosing Weight 136.364, kg, PRN Other -See Comment, For shivering, Start date: 12/10/12 11:49:00, Duration: 2 doses or times, Stop date: Limited # of times morphine No Heidy 2 mg, 0.2 Memoria Sulfate 3-07 Leroy mL, Route: l 17:49: IVP, Drug form: INJ, Q5Min, Dosing Weight 136.364, kg, PRN Pain Score 4-6, Start date: 12/10/12 11:49:00, Duration: 8 doses or times, Stop date: Limited # of times hydromorpho 2012- No Heidy 0.5 mg, Memoria ne 3-07 Leroy 0.25 mL, l 17:49: Route: Dipesh 00 IVP, Drug form: INJ, Q5Min, Dosing Weight 136.364, kg, PRN Pain, Start date: 12/10/12 11:49:00, Duration: 5 doses or times, Stop date: Limited # of times, pain score 7-10 flumazenil 2012- No Heidy 0.2 mg, 2 Memoria 3-07 Leroy mL, Route: l 17:49: IVP, Drug form: INJ, PRN, Dosing Weight 136.364, kg, PRN Benzodiaze pine Reversal, Initial dose, Start date: 12/10/12 11:49:00, Duration: 30 day, Stop date: 01/09/13 12:48:00 ondansetron No Lisa 4 mg, 2 Me moria 3-07 [place] mL, Route: l 17:49: IVP, Drug form: INJ, ONCE, Dosing Weight 136.364, kg, PRN Nausea & Vomiting, Start date: 12/10/12 11:49:00 naloxone 2012- No Heidy 0.04 mg, M emoria 3-07 Leroy 0.1 mL, l 17:49: Route: Lolo 00 IVP, Drug form: INJ, Q2MIN, Dosing Weight 136.364, kg, PRN Narcotic Reversal, Start date: 12/10/12 11:49:00, Duration: 8 doses or times, Stop date: Limited # of times meperidine No Heidy 12.5 mg, Memoria 3-07 Leroy 0.25 mL, l 17:49: Route: Dipesh 00 IVP, Drug form: INJ, Q30Min, Dosing Weight 136.364, kg, PRN Other -See Comment, For shivering, Start date: 12/10/12 11:49:00, Duration: 2 doses or times, Stop date: Limited # of times morphine 2012-0 No Heidy 2 mg, 0.2 Memoria Sulfate 3-07 Leroy mL, Route: l 17:49: IVP, Drug form: INJ, Q5Min, Dosing Weight 136.364, kg, PRN Pain Score 4-6, Start date: 12/10/12 11:49:00, Duration: 8 doses or times, Stop date: Limited # of times hydromorpho No Heidy 0.5 mg, Memoria ne 3-07 Leroy 0.25 mL, l 17:49: Route: Dipesh IVP, Drug form: INJ, Q5Min, Dosing Weight 136.364, kg, PRN Pain, Start date: 12/10/12 11:49:00, Duration: 5 doses or times, Stop date: Limited # of times, pain score 7-10 flumazenil 2012- No Heidy 0.2 mg, 2 Memoria 3-07 Leroy mL, Route: l 17:49: IVP, Drug form: INJ, PRN, Dosing Weight 136.364, kg, PRN Benzodiaze pine Reversal, Initial dose, Start date: 12/10/12 11:49:00, Duration: 30 day, Stop date: 01/09/13 12:48:00 ondansetron No Lisa 4 mg, 2 Me moria 3-07 [place] mL, Route: l 17:49: IVP, Drug form: INJ, ONCE, Dosing Weight 136.364, kg, PRN Nausea & Vomiting, Start date: 12/10/12 11:49:00 naloxone No Heidy 0.04 mg, M emoria 3-07 Leroy 0.1 mL, l 17:49: Route: Lolo IVP, Drug form: INJ, Q2MIN, Dosing Weight 136.364, kg, PRN Narcotic Reversal, Start date: 12/10/12 11:49:00, Duration: 8 doses or times, Stop date: Limited # of times meperidine No Heidy 12.5 mg, Memoria 3-07 Leroy 0.25 mL, l 17:49: Route: Lolo IVP, Drug form: INJ, Q30Min, Dosing Weight 136.364, kg, PRN Other -See Comment, For shivering, Start date: 12/10/12 11:49:00, Duration: 2 doses or times, Stop date: Limited # of times morphine No Heidy 2 mg, 0.2 Mem[facility] Sulfate 3-07 Leroy mL, Route: l 17:49: IVP, Drug form: INJ, Q5Min, Dosing Weight 136.364, kg, PRN Pain Score 4-6, Start date: 12/10/12 11:49:00, Duration: 8 doses or times, Stop date: Limited # of times hydromorpho No Heidy 0.5 mg, Memoria ne 3-07 Leroy 0.25 mL, l 17:49: Route: Dipesh IVP, Drug form: INJ, Q5Min, Dosing Weight 136.364, kg, PRN Pain, Start date: 12/10/12 11:49:00, Duration: 5 doses or times, Stop date: Limited # of times, pain score 7-10 flumazenil No Heidy 0.2 mg, 2 Memoria 3-07 Leroy mL, Route: l 17:49: IVP, Drug form: INJ, PRN, Dosing Weight 136.364, kg, PRN Benzodiaze pine Reversal, Initial dose, Start date: 12/10/12 11:49:00, Duration: 30 day, Stop date: 01/09/13 12:48:00 ondansetron No Lisa 4 mg, 2 Me moria 3-07 [place] mL, Route: l 17:49: IVP, Drug form: INJ, ONCE, Dosing Weight 136.364, kg, PRN Nausea & Vomiting, Start date: 12/10/12 11:49:00 naloxone No Heidy 0.04 mg, M emoria 3-07 Leroy 0.1 mL, l 17:49: Route: Dipesh 00 IVP, Drug form: INJ, Q2MIN, Dosing Weight 136.364, kg, PRN Narcotic Reversal, Start date: 12/10/12 11:49:00, Duration: 8 doses or times, Stop date: Limited # of times meperidine No Heidy 12.5 mg, Memoria 3-07 Leroy 0.25 mL, l 17:49: Route: Lolo 00 IVP, Drug form: INJ, Q30Min, Dosing Weight 136.364, kg, PRN Other -See Comment, For shivering, Start date: 12/10/12 11:49:00, Duration: 2 doses or times, Stop date: Limited # of times morphine No Heidy 2 mg, 0.2 Mem[facility] Sulfate 3-07 Leroy mL, Route: l 17:49: IVP, Drug form: INJ, Q5Min, Dosing Weight 136.364, kg, PRN Pain Score 4-6, Start date: 12/10/12 11:49:00, Duration: 8 doses or times, Stop date: Limited # of times hydromorpho No Heidy 0.5 mg, Memoria ne 3-07 Leroy 0.25 mL, l 17:49: Route: IVP, Drug form: INJ, Q5Min, Dosing Weight 136.364, kg, PRN Pain, Start date: 12/10/12 11:49:00, Duration: 5 doses or times, Stop date: Limited # of times, pain score 7-10 flumazenil No Heidy 0.2 mg, 2 Memoria 3-07 Leroy mL, Route: l 17:49: IVP, Drug form: INJ, PRN, Dosing Weight 136.364, kg, PRN Benzodiaze pine Reversal, Initial dose, Start date: 12/10/12 11:49:00, Duration: 30 day, Stop date: 01/09/13 12:48:00 ondansetron No Lisa 4 mg, 2 Me moria 3-07 [place] mL, Route: l 17:49: IVP, Drug form: INJ, ONCE, Dosing Weight 136.364, kg, PRN Nausea & Vomiting, Start date: 12/10/12 11:49:00 naloxone No Heidy 0.04 mg, M emoria 3-07 Leroy 0.1 mL, l 17:49: Route: IVP, Drug form: INJ, Q2MIN, Dosing Weight 136.364, kg, PRN Narcotic Reversal, Start date: 12/10/12 11:49:00, Duration: 8 doses or times, Stop date: Limited # of times meperidine No Heidy 12.5 mg, Memoria 3-07 Leroy 0.25 mL, l 17:49: Route: Dipesh 00 IVP, Drug form: INJ, Q30Min, Dosing Weight 136.364, kg, PRN Other -See Comment, For shivering, Start date: 12/10/12 11:49:00, Duration: 2 doses or times, Stop date: Limited # of times morphine No Heidy 2 mg, 0.2 Mem[facility] Sulfate 3-07 Leroy mL, Route: l 17:49: IVP, Drug form: INJ, Q5Min, Dosing Weight 136.364, kg, PRN Pain Score 4-6, Start date: 12/10/12 11:49:00, Duration: 8 doses or times, Stop date: Limited # of times hydromorpho No Heidy 0.5 mg, Memoria ne 3-07 Leroy 0.25 mL, l 17:49: Route: IVP, Drug form: INJ, Q5Min, Dosing Weight 136.364, kg, PRN Pain, Start date: 12/10/12 11:49:00, Duration: 5 doses or times, Stop date: Limited # of times, pain score 7-10 flumazenil No Heidy 0.2 mg, 2 Memoria 3-07 Leroy mL, Route: l 17:49: IVP, Drug form: INJ, PRN, Dosing Weight 136.364, kg, PRN Benzodiaze pine Reversal, Initial dose, Start date: 12/10/12 11:49:00, Duration: 30 day, Stop date: 01/09/13 12:48:00 ondansetron No Lisa 4 mg, 2 Me moria 3-07 [place] mL, Route: l 17:49: IVP, Drug form: INJ, ONCE, Dosing Weight 136.364, kg, PRN Nausea & Vomiting, Start date: 12/10/12 11:49:00 naloxone No Heidy 0.04 mg, M emoria 3-07 Leroy 0.1 mL, l 17:49: Route: IVP, Drug form: INJ, Q2MIN, Dosing Weight 136.364, kg, PRN Narcotic Reversal, Start date: 12/10/12 11:49:00, Duration: 8 doses or times, Stop date: Limited # of times meperidine No Heidy 12.5 mg, Memoria 3-07 Leroy 0.25 mL, l 17:49: Route: Lolo 00 IVP, Drug form: INJ, Q30Min, Dosing Weight 136.364, kg, PRN Other -See Comment, For shivering, Start date: 12/10/12 11:49:00, Duration: 2 doses or times, Stop date: Limited # of times morphine No Heidy 2 mg, 0.2 Mem[facility] Sulfate 3-07 Leroy mL, Route: l 17:49: IVP, Drug form: INJ, Q5Min, Dosing Weight 136.364, kg, PRN Pain Score 4-6, Start date: 12/10/12 11:49:00, Duration: 8 doses or times, Stop date: Limited # of times hydromorpho No Heidy 0.5 mg, Memoria ne 3-07 Leroy 0.25 mL, l 17:49: Route: Dipesh 00 IVP, Drug form: INJ, Q5Min, Dosing Weight 136.364, kg, PRN Pain, Start date: 12/10/12 11:49:00, Duration: 5 doses or times, Stop date: Limited # of times, pain score 7-10 flumazenil No Heidy 0.2 mg, 2 Memoria 3-07 Leroy mL, Route: l 17:49: IVP, Drug form: INJ, PRN, Dosing Weight 136.364, kg, PRN Benzodiaze pine Reversal, Initial dose, Start date: 12/10/12 11:49:00, Duration: 30 day, Stop date: 01/09/13 12:48:00 ondansetron No Lisa 4 mg, 2 Me moria 3-07 [place] mL, Route: l 17:49: IVP, Drug form: INJ, ONCE, Dosing Weight 136.364, kg, PRN Nausea & Vomiting, Start date: 12/10/12 11:49:00 naloxone No Heidy 0.04 mg, M emoria 3-07 Leroy 0.1 mL, l 17:49: Route: Dipesh 00 IVP, Drug form: INJ, Q2MIN, Dosing Weight 136.364, kg, PRN Narcotic Reversal, Start date: 12/10/12 11:49:00, Duration: 8 doses or times, Stop date: Limited # of times meperidine No Heidy 12.5 mg, Memoria 3-07 Leroy 0.25 mL, l 17:49: Route: Lolo 00 IVP, Drug form: INJ, Q30Min, Dosing Weight 136.364, kg, PRN Other -See Comment, For shivering, Start date: 12/10/12 11:49:00, Duration: 2 doses or times, Stop date: Limited # of times morphine No Heidy 2 mg, 0.2 Mem[facility] Sulfate 3-07 Leroy mL, Route: l 17:49: IVP, Drug form: INJ, Q5Min, Dosing Weight 136.364, kg, PRN Pain Score 4-6, Start date: 12/10/12 11:49:00, Duration: 8 doses or times, Stop date: Limited # of times hydromorpho No Heidy 0.5 mg, Memoria ne 3-07 Leroy 0.25 mL, l 17:49: Route: IVP, Drug form: INJ, Q5Min, Dosing Weight 136.364, kg, PRN Pain, Start date: 12/10/12 11:49:00, Duration: 5 doses or times, Stop date: Limited # of times, pain score 7-10 flumazenil No Heidy 0.2 mg, 2 Memoria 3-07 Leroy mL, Route: l 17:49: IVP, Drug form: INJ, PRN, Dosing Weight 136.364, kg, PRN Benzodiaze pine Reversal, Initial dose, Start date: 12/10/12 11:49:00, Duration: 30 day, Stop date: 01/09/13 12:48:00 ondansetron No Lisa 4 mg, 2 Me moria 3-07 [place] mL, Route: l 17:49: IVP, Drug form: INJ, ONCE, Dosing Weight 136.364, kg, PRN Nausea & Vomiting, Start date: 12/10/12 11:49:00 naloxone No Heidy 0.04 mg, M emoria 3-07 Leroy 0.1 mL, l 17:49: Route: Dipesh IVP, Drug form: INJ, Q2MIN, Dosing Weight 136.364, kg, PRN Narcotic Reversal, Start date: 12/10/12 11:49:00, Duration: 8 doses or times, Stop date: Limited # of times meperidine No Heidy 12.5 mg, Memoria 3-07 Leroy 0.25 mL, l 17:49: Route: Dipesh 00 IVP, Drug form: INJ, Q30Min, Dosing Weight 136.364, kg, PRN Other -See Comment, For shivering, Start date: 12/10/12 11:49:00, Duration: 2 doses or times, Stop date: Limited # of times morphine No Heidy 2 mg, 0.2 Memoria Sulfate 3-07 Leroy mL, Route: l 17:49: IVP, Drug form: INJ, Q5Min, Dosing Weight 136.364, kg, PRN Pain Score 4-6, Start date: 12/10/12 11:49:00, Duration: 8 doses or times, Stop date: Limited # of times hydromorpho No Heidy 0.5 mg, Memoria ne 3-07 Leroy 0.25 mL, l 17:49: Route: IVP, Drug form: INJ, Q5Min, Dosing Weight 136.364, kg, PRN Pain, Start date: 12/10/12 11:49:00, Duration: 5 doses or times, Stop date: Limited # of times, pain score 7-10 flumazenil No Heidy 0.2 mg, 2 Memoria 3-07 Leroy mL, Route: l 17:49: IVP, Drug form: INJ, PRN, Dosing Weight 136.364, kg, PRN Benzodiaze pine Reversal, Initial dose, Start date: 12/10/12 11:49:00, Duration: 30 day, Stop date: 01/09/13 12:48:00 ondansetron No Lisa 4 mg, 2 Me moria 3-07 [place] mL, Route: l 17:49: IVP, Drug form: INJ, ONCE, Dosing Weight 136.364, kg, PRN Nausea & Vomiting, Start date: 12/10/12 11:49:00 naloxone 2012- No Heidy 0.04 mg, M divine 3-07 Leroy 0.1 mL, l 17:49: Route: Lolo 00 IVP, Drug form: INJ, Q2MIN, Dosing Weight 136.364, kg, PRN Narcotic Reversal, Start date: 12/10/12 11:49:00, Duration: 8 doses or times, Stop date: Limited # of times meperidine No Heidy 12.5 mg, Memoria 3-07 Leroy 0.25 mL, l 17:49: Route: Dipesh IVP, Drug form: INJ, Q30Min, Dosing Weight 136.364, kg, PRN Other -See Comment, For shivering, Start date: 12/10/12 11:49:00, Duration: 2 doses or times, Stop date: Limited # of times morphine No Heidy 2 mg, 0.2 Memoria Sulfate 3-07 Leroy mL, Route: l 17:49: IVP, Drug form: INJ, Q5Min, Dosing Weight 136.364, kg, PRN Pain Score 4-6, Start date: 12/10/12 11:49:00, Duration: 8 doses or times, Stop date: Limited # of times hydromorpho No Heidy 0.5 mg, Memoria ne 3-07 Leroy 0.25 mL, l 17:49: Route: Dipesh 00 IVP, Drug form: INJ, Q5Min, Dosing Weight 136.364, kg, PRN Pain, Start date: 12/10/12 11:49:00, Duration: 5 doses or times, Stop date: Limited # of times, pain score 7-10 flumazenil No Heidy 0.2 mg, 2 Memoria 3-07 Leroy mL, Route: l 17:49: IVP, Drug form: INJ, PRN, Dosing Weight 136.364, kg, PRN Benzodiaze pine Reversal, Initial dose, Start date: 12/10/12 11:49:00, Duration: 30 day, Stop date: 01/09/13 12:48:00 ondansetron No Lisa 4 mg, 2 Me moria 3-07 [place] mL, Route: l 17:49: IVP, Drug form: INJ, ONCE, Dosing Weight 136.364, kg, PRN Nausea & Vomiting, Start date: 12/10/12 11:49:00 naloxone No Heidy 0.04 mg, M emoria 3-07 Leroy 0.1 mL, l 17:49: Route: IVP, Drug form: INJ, Q2MIN, Dosing Weight 136.364, kg, PRN Narcotic Reversal, Start date: 12/10/12 11:49:00, Duration: 8 doses or times, Stop date: Limited # of times meperidine No Heidy 12.5 mg, Memoria 3-07 Leroy 0.25 mL, l 17:49: Route: IVP, Drug form: INJ, Q30Min, Dosing Weight 136.364, kg, PRN Other -See Comment, For shivering, Start date: 12/10/12 11:49:00, Duration: 2 doses or times, Stop date: Limited # of times morphine No Heidy 2 mg, 0.2 Memoria Sulfate 3-07 Leroy mL, Route: l 17:49: IVP, Drug form: INJ, Q5Min, Dosing Weight 136.364, kg, PRN Pain Score 4-6, Start date: 12/10/12 11:49:00, Duration: 8 doses or times, Stop date: Limited # of times hydromorpho No Heidy 0.5 mg, Memoria ne 3-07 Leroy 0.25 mL, l 17:49: Route: IVP, Drug form: INJ, Q5Min, Dosing Weight 136.364, kg, PRN Pain, Start date: 12/10/12 11:49:00, Duration: 5 doses or times, Stop date: Limited # of times, pain score 7-10 flumazenil No Heidy 0.2 mg, 2 Memoria 3-07 Leroy mL, Route: l 17:49: IVP, Drug form: INJ, PRN, Dosing Weight 136.364, kg, PRN Benzodiaze pine Reversal, Initial dose, Start date: 12/10/12 11:49:00, Duration: 30 day, Stop date: 01/09/13 12:48:00 ondansetron No Lisa 4 mg, 2 Me moria 3-07 [place] mL, Route: l 17:49: IVP, Drug form: INJ, ONCE, Dosing Weight 136.364, kg, PRN Nausea & Vomiting, Start date: 12/10/12 11:49:00 naloxone 2012- No Heidy 0.04 mg, M emoria 3-07 Leroy 0.1 mL, l 17:49: Route: Dipesh 00 IVP, Drug form: INJ, Q2MIN, Dosing Weight 136.364, kg, PRN Narcotic Reversal, Start date: 12/10/12 11:49:00, Duration: 8 doses or times, Stop date: Limited # of times meperidine No Heidy 12.5 mg, Memoria 3-07 Leroy 0.25 mL, l 17:49: Route: IVP, Drug form: INJ, Q30Min, Dosing Weight 136.364, kg, PRN Other -See Comment, For shivering, Start date: 12/10/12 11:49:00, Duration: 2 doses or times, Stop date: Limited # of times morphine No Heidy 2 mg, 0.2 Memoria Sulfate 3-07 Leroy mL, Route: l 17:49: IVP, Drug form: INJ, Q5Min, Dosing Weight 136.364, kg, PRN Pain Score 4-6, Start date: 12/10/12 11:49:00, Duration: 8 doses or times, Stop date: Limited # of times hydromorpho No Heidy 0.5 mg, Memoria ne 3-07 Leroy 0.25 mL, l 17:49: Route: Lolo 00 IVP, Drug form: INJ, Q5Min, Dosing Weight 136.364, kg, PRN Pain, Start date: 12/10/12 11:49:00, Duration: 5 doses or times, Stop date: Limited # of times, pain score 7-10 flumazenil 2012-0 No Heidy 0.2 mg, 2 Memoria 3-07 Leroy mL, Route: l 17:49: IVP, Drug form: INJ, PRN, Dosing Weight 136.364, kg, PRN Benzodiaze pine Reversal, Initial dose, Start date: 12/10/12 11:49:00, Duration: 30 day, Stop date: 01/09/13 12:48:00 ondansetron 2012- No Lisa 4 mg, 2 Me moria 3-07 [place] mL, Route: l 17:49: IVP, Drug form: INJ, ONCE, Dosing Weight 136.364, kg, PRN Nausea & Vomiting, Start date: 12/10/12 11:49:00 naloxone 2012- No Heidy 0.04 mg, M emoria 3-07 Leroy 0.1 mL, l 17:49: Route: IVP, Drug form: INJ, Q2MIN, Dosing Weight 136.364, kg, PRN Narcotic Reversal, Start date: 12/10/12 11:49:00, Duration: 8 doses or times, Stop date: Limited # of times meperidine No Heidy 12.5 mg, Memoria 3-07 Leroy 0.25 mL, l 17:49: Route: IVP, Drug form: INJ, Q30Min, Dosing Weight 136.364, kg, PRN Other -See Comment, For shivering, Start date: 12/10/12 11:49:00, Duration: 2 doses or times, Stop date: Limited # of times morphine No Heidy 2 mg, 0.2 Memoria Sulfate 3-07 Leroy mL, Route: l 17:49: IVP, Drug form: INJ, Q5Min, Dosing Weight 136.364, kg, PRN Pain Score 4-6, Start date: 12/10/12 11:49:00, Duration: 8 doses or times, Stop date: Limited # of times hydromorpho 2012- No Heidy 0.5 mg, Memoria ne 3-07 Leroy 0.25 mL, l 17:49: Route: IVP, Drug form: INJ, Q5Min, Dosing Weight 136.364, kg, PRN Pain, Start date: 12/10/12 11:49:00, Duration: 5 doses or times, Stop date: Limited # of times, pain score 7-10 flumazenil 2012- No Heidy 0.2 mg, 2 Memoria 3-07 Leroy mL, Route: l 17:49: IVP, Drug form: INJ, PRN, Dosing Weight 136.364, kg, PRN Benzodiaze pine Reversal, Initial dose, Start date: 12/10/12 11:49:00, Duration: 30 day, Stop date: 01/09/13 12:48:00 ondansetron No Lisa 4 mg, 2 Me moria 3-07 [place] mL, Route: l 17:49: IVP, Drug form: INJ, ONCE, Dosing Weight 136.364, kg, PRN Nausea & Vomiting, Start date: 12/10/12 11:49:00 naloxone No Heidy 0.04 mg, M emoria 3-07 Leroy 0.1 mL, l 17:49: Route: IVP, Drug form: INJ, Q2MIN, Dosing Weight 136.364, kg, PRN Narcotic Reversal, Start date: 12/10/12 11:49:00, Duration: 8 doses or times, Stop date: Limited # of times meperidine No Heidy 12.5 mg, Memoria 3-07 Leroy 0.25 mL, l 17:49: Route: IVP, Drug form: INJ, Q30Min, Dosing Weight 136.364, kg, PRN Other -See Comment, For shivering, Start date: 12/10/12 11:49:00, Duration: 2 doses or times, Stop date: Limited # of times morphine No Heidy 2 mg, 0.2 Memoria Sulfate 3-07 Leroy mL, Route: l 17:49: IVP, Drug form: INJ, Q5Min, Dosing Weight 136.364, kg, PRN Pain Score 4-6, Start date: 12/10/12 11:49:00, Duration: 8 doses or times, Stop date: Limited # of times hydromorpho No Heidy 0.5 mg, Memoria ne 3-07 Leroy 0.25 mL, l 17:49: Route: Lolo 00 IVP, Drug form: INJ, Q5Min, Dosing Weight 136.364, kg, PRN Pain, Start date: 12/10/12 11:49:00, Duration: 5 doses or times, Stop date: Limited # of times, pain score 7-10 flumazenil No Heidy 0.2 mg, 2 Memoria 3-07 Leroy mL, Route: l 17:49: IVP, Drug form: INJ, PRN, Dosing Weight 136.364, kg, PRN Benzodiaze pine Reversal, Initial dose, Start date: 12/10/12 11:49:00, Duration: 30 day, Stop date: 01/09/13 12:48:00 ondansetron 2012- No Lisa 4 mg, 2 Me moria 3-07 [place] mL, Route: l 17:49: IVP, Drug form: INJ, ONCE, Dosing Weight 136.364, kg, PRN Nausea & Vomiting, Start date: 12/10/12 11:49:00 naloxone No Heidy 0.04 mg, M emoria 3-07 Leroy 0.1 mL, l 17:49: Route: IVP, Drug form: INJ, Q2MIN, Dosing Weight 136.364, kg, PRN Narcotic Reversal, Start date: 12/10/12 11:49:00, Duration: 8 doses or times, Stop date: Limited # of times meperidine No Heidy 12.5 mg, Memoria 3-07 Leroy 0.25 mL, l 17:49: Route: IVP, Drug form: INJ, Q30Min, Dosing Weight 136.364, kg, PRN Other -See Comment, For shivering, Start date: 12/10/12 11:49:00, Duration: 2 doses or times, Stop date: Limited # of times morphine 0 No Heidy 2 mg, 0.2 Memoria Sulfate 3-07 Leroy mL, Route: l 17:49: IVP, Drug form: INJ, Q5Min, Dosing Weight 136.364, kg, PRN Pain Score 4-6, Start date: 12/10/12 11:49:00, Duration: 8 doses or times, Stop date: Limited # of times hydromorpho No Heidy 0.5 mg, Memoria ne 3-07 Leroy 0.25 mL, l 17:49: Route: Dipesh 00 IVP, Drug form: INJ, Q5Min, Dosing Weight 136.364, kg, PRN Pain, Start date: 12/10/12 11:49:00, Duration: 5 doses or times, Stop date: Limited # of times, pain score 7-10 flumazenil No Heidy 0.2 mg, 2 Memoria 3-07 Leroy mL, Route: l 17:49: IVP, Drug form: INJ, PRN, Dosing Weight 136.364, kg, PRN Benzodiaze pine Reversal, Initial dose, Start date: 12/10/12 11:49:00, Duration: 30 day, Stop date: 01/09/13 12:48:00 ondansetron No Lisa 4 mg, 2 Me moria 3-07 [place] mL, Route: l 17:49: IVP, Drug form: INJ, ONCE, Dosing Weight 136.364, kg, PRN Nausea & Vomiting, Start date: 12/10/12 11:49:00 naloxone No Heidy 0.04 mg, M emoria 3-07 Leroy 0.1 mL, l 17:49: Route: Dipesh IVP, Drug form: INJ, Q2MIN, Dosing Weight 136.364, kg, PRN Narcotic Reversal, Start date: 12/10/12 11:49:00, Duration: 8 doses or times, Stop date: Limited # of times meperidine No Heidy 12.5 mg, Memoria 3-07 Leroy 0.25 mL, l 17:49: Route: Dipesh 00 IVP, Drug form: INJ, Q30Min, Dosing Weight 136.364, kg, PRN Other -See Comment, For shivering, Start date: 12/10/12 11:49:00, Duration: 2 doses or times, Stop date: Limited # of times morphine No Heidy 2 mg, 0.2 Mem[facility] Sulfate 3-07 Leroy mL, Route: l 17:49: IVP, Drug form: INJ, Q5Min, Dosing Weight 136.364, kg, PRN Pain Score 4-6, Start date: 12/10/12 11:49:00, Duration: 8 doses or times, Stop date: Limited # of times hydromorpho 2012- No Heidy 0.5 mg, Memoria ne 3-07 Leroy 0.25 mL, l 17:49: Route: Lolo 00 IVP, Drug form: INJ, Q5Min, Dosing Weight 136.364, kg, PRN Pain, Start date: 12/10/12 11:49:00, Duration: 5 doses or times, Stop date: Limited # of times, pain score 7-10 flumazenil No Heidy 0.2 mg, 2 Memoria 3-07 Leroy mL, Route: l 17:49: IVP, Drug form: INJ, PRN, Dosing Weight 136.364, kg, PRN Benzodiaze pine Reversal, Initial dose, Start date: 12/10/12 11:49:00, Duration: 30 day, Stop date: 01/09/13 12:48:00 ondansetron No Lisa 4 mg, 2 Me moria 3-07 [place] mL, Route: l 17:49: IVP, Drug form: INJ, ONCE, Dosing Weight 136.364, kg, PRN Nausea & Vomiting, Start date: 12/10/12 11:49:00 naloxone No Heidy 0.04 mg, M emoria 3-07 Leroy 0.1 mL, l 17:49: Route: Lolo 00 IVP, Drug form: INJ, Q2MIN, Dosing Weight 136.364, kg, PRN Narcotic Reversal, Start date: 12/10/12 11:49:00, Duration: 8 doses or times, Stop date: Limited # of times meperidine No Heidy 12.5 mg, Memoria 3-07 Leroy 0.25 mL, l 17:49: Route: Lolo 00 IVP, Drug form: INJ, Q30Min, Dosing Weight 136.364, kg, PRN Other -See Comment, For shivering, Start date: 12/10/12 11:49:00, Duration: 2 doses or times, Stop date: Limited # of times morphine No Heidy 2 mg, 0.2 Mem[facility] Sulfate 3-07 Leroy mL, Route: l 17:49: IVP, Drug form: INJ, Q5Min, Dosing Weight 136.364, kg, PRN Pain Score 4-6, Start date: 12/10/12 11:49:00, Duration: 8 doses or times, Stop date: Limited # of times hydromorpho No Heidy 0.5 mg, Memoria ne 3-07 Leroy 0.25 mL, l 17:49: Route: IVP, Drug form: INJ, Q5Min, Dosing Weight 136.364, kg, PRN Pain, Start date: 12/10/12 11:49:00, Duration: 5 doses or times, Stop date: Limited # of times, pain score 7-10 flumazenil No Heidy 0.2 mg, 2 Memoria 3-07 Leroy mL, Route: l 17:49: IVP, Drug form: INJ, PRN, Dosing Weight 136.364, kg, PRN Benzodiaze pine Reversal, Initial dose, Start date: 12/10/12 11:49:00, Duration: 30 day, Stop date: 01/09/13 12:48:00 ondansetron No Lisa 4 mg, 2 Me moria 3-07 [place] mL, Route: l 17:49: IVP, Drug form: INJ, ONCE, Dosing Weight 136.364, kg, PRN Nausea & Vomiting, Start date: 12/10/12 11:49:00 naloxone No Heidy 0.04 mg, M emoria 3-07 Leroy 0.1 mL, l 17:49: Route: Lolo 00 IVP, Drug form: INJ, Q2MIN, Dosing Weight 136.364, kg, PRN Narcotic Reversal, Start date: 12/10/12 11:49:00, Duration: 8 doses or times, Stop date: Limited # of times meperidine No Heidy 12.5 mg, Memoria 3-07 Leroy 0.25 mL, l 17:49: Route: Lolo 00 IVP, Drug form: INJ, Q30Min, Dosing Weight 136.364, kg, PRN Other -See Comment, For shivering, Start date: 12/10/12 11:49:00, Duration: 2 doses or times, Stop date: Limited # of times morphine No Heidy 2 mg, 0.2 Memoria Sulfate 3-07 Leroy mL, Route: l 17:49: IVP, Drug form: INJ, Q5Min, Dosing Weight 136.364, kg, PRN Pain Score 4-6, Start date: 12/10/12 11:49:00, Duration: 8 doses or times, Stop date: Limited # of times hydromorpho No Heidy 0.5 mg, Memoria ne 3-07 Leroy 0.25 mL, l 17:49: Route: Dipesh 00 IVP, Drug form: INJ, Q5Min, Dosing Weight 136.364, kg, PRN Pain, Start date: 12/10/12 11:49:00, Duration: 5 doses or times, Stop date: Limited # of times, pain score 7-10 flumazenil No Heidy 0.2 mg, 2 Memoria 3-07 Leroy mL, Route: l 17:49: IVP, Drug form: INJ, PRN, Dosing Weight 136.364, kg, PRN Benzodiaze pine Reversal, Initial dose, Start date: 12/10/12 11:49:00, Duration: 30 day, Stop date: 01/09/13 12:48:00 ondansetron No Lisa 4 mg, 2 Me moria 3-07 [place] mL, Route: l 17:49: IVP, Drug form: INJ, ONCE, Dosing Weight 136.364, kg, PRN Nausea & Vomiting, Start date: 12/10/12 11:49:00 naloxone No Heidy 0.04 mg, M emoria 3-07 Leroy 0.1 mL, l 17:49: Route: Lolo 00 IVP, Drug form: INJ, Q2MIN, Dosing Weight 136.364, kg, PRN Narcotic Reversal, Start date: 12/10/12 11:49:00, Duration: 8 doses or times, Stop date: Limited # of times meperidine No Heidy 12.5 mg, Memoria 3-07 Leroy 0.25 mL, l 17:49: Route: Dipesh IVP, Drug form: INJ, Q30Min, Dosing Weight 136.364, kg, PRN Other -See Comment, For shivering, Start date: 12/10/12 11:49:00, Duration: 2 doses or times, Stop date: Limited # of times morphine No Heidy 2 mg, 0.2 Memoria Sulfate 3-07 Leroy mL, Route: l 17:49: IVP, Drug form: INJ, Q5Min, Dosing Weight 136.364, kg, PRN Pain Score 4-6, Start date: 12/10/12 11:49:00, Duration: 8 doses or times, Stop date: Limited # of times hydromorpho No Heidy 0.5 mg, Memoria ne 3-07 Leroy 0.25 mL, l 17:49: Route: Lolo 00 IVP, Drug form: INJ, Q5Min, Dosing Weight 136.364, kg, PRN Pain, Start date: 12/10/12 11:49:00, Duration: 5 doses or times, Stop date: Limited # of times, pain score 7-10 flumazenil No Heidy 0.2 mg, 2 Memoria 3-07 Leroy mL, Route: l 17:49: IVP, Drug form: INJ, PRN, Dosing Weight 136.364, kg, PRN Benzodiaze pine Reversal, Initial dose, Start date: 12/10/12 11:49:00, Duration: 30 day, Stop date: 01/09/13 12:48:00 Invanz + No Garth P 1 gm, Memor ia Sodium 3-07 Gabriele Route: l Chloride 12:30: IVPB, PRE Herm fara 0.9% IV 100 00 OP, Start mL date: 12/10/12 6:30:00, Stop date: 12/10/12 23:00:00 Invanz + 2012- No Garth P 1 gm, Memor ia Sodium 3-07 Gabriele Route: l Chloride 12:30: IVPB, PRE Herm fara 0.9% IV 100 00 OP, Start mL date: 12/10/12 6:30:00, Stop date: 12/10/12 23:00:00 Invanz + No Garth P 1 gm, Memor ia Sodium 3-07 Gabriele Route: l Chloride 12:30: IVPB, PRE Herm fara 0.9% IV 100 00 OP, Start mL date: 12/10/12 6:30:00, Stop date: 12/10/12 23:00:00 Invanz + 2013-0 No Garth P 1 gm, Memor ia Sodium 3-07 Gabriele Route: l Chloride 12:30: IVPB, PRE Herm fara 0.9% IV 100 00 OP, Start mL date: 12/10/12 6:30:00, Stop date: 12/10/12 23:00:00 Invanz + 2012-0 No Garth P 1 gm, Memor ia Sodium 3-07 Gabriele Route: l Chloride 12:30: IVPB, PRE Herm fara 0.9% IV 100 00 OP, Start mL date: 12/10/12 6:30:00, Stop date: 12/10/12 23:00:00 Invanz + 2012-0 No Garth P 1 gm, Memor ia Sodium 3-07 Gabriele Route: l Chloride 12:30: IVPB, PRE Herm fara 0.9% IV 100 00 OP, Start mL date: 12/10/12 6:30:00, Stop date: 12/10/12 23:00:00 Invanz + 2012-0 No Garth P 1 gm, Memor ia Sodium 3-07 Gabriele Route: l Chloride 12:30: IVPB, PRE Herm fara 0.9% IV 100 00 OP, Start mL date: 12/10/12 6:30:00, Stop date: 12/10/12 23:00:00 Invanz + 2012-0 No Garth P 1 gm, Memor ia Sodium 3-07 Gabriele Route: l Chloride 12:30: IVPB, PRE Herm fara 0.9% IV 100 00 OP, Start mL date: 12/10/12 6:30:00, Stop date: 12/10/12 23:00:00 Invanz + 2012-0 No Garth P 1 gm, Memor ia Sodium 3-07 Gabriele Route: l Chloride 12:30: IVPB, PRE Herm fara 0.9% IV 100 00 OP, Start mL date: 12/10/12 6:30:00, Stop date: 12/10/12 23:00:00 Invanz + 2012-0 No Garth P 1 gm, Memor ia Sodium 3-07 Gabriele Route: l Chloride 12:30: IVPB, PRE Herm fara 0.9% IV 100 00 OP, Start mL date: 12/10/12 6:30:00, Stop date: 12/10/12 23:00:00 Invanz + 2013-0 No Garth P 1 gm, Memor ia Sodium 3-07 Gabriele Route: l Chloride 12:30: IVPB, PRE Herm fara 0.9% IV 100 00 OP, Start mL date: 12/10/12 6:30:00, Stop date: 12/10/12 23:00:00 Invanz + 2012-0 No Garth P 1 gm, Memor ia Sodium 3-07 Gabriele Route: l Chloride 12:30: IVPB, PRE Herm fara 0.9% IV 100 00 OP, Start mL date: 12/10/12 6:30:00, Stop date: 12/10/12 23:00:00 Invanz + 2012-0 No Garth P 1 gm, Memor ia Sodium 3-07 Gabriele Route: l Chloride 12:30: IVPB, PRE Herm fara 0.9% IV 100 00 OP, Start mL date: 12/10/12 6:30:00, Stop date: 12/10/12 23:00:00 Invanz + 2012-0 No Garth P 1 gm, Memor ia Sodium 3-07 Gabriele Route: l Chloride 12:30: IVPB, PRE Herm fara 0.9% IV 100 00 OP, Start mL date: 12/10/12 6:30:00, Stop date: 12/10/12 23:00:00 Invanz + 2012-0 No Garth P 1 gm, Memor ia Sodium 3-07 Gabriele Route: l Chloride 12:30: IVPB, PRE Herm fara 0.9% IV 100 00 OP, Start mL date: 12/10/12 6:30:00, Stop date: 12/10/12 23:00:00 Invanz + 2012-0 No Garth P 1 gm, Memor ia Sodium 3-07 Gabriele Route: l Chloride 12:30: IVPB, PRE Herm fara 0.9% IV 100 00 OP, Start mL date: 12/10/12 6:30:00, Stop date: 12/10/12 23:00:00 Invanz + 2012-0 No Garth P 1 gm, Memor ia Sodium 3-07 Gabriele Route: l Chloride 12:30: IVPB, PRE Herm fara 0.9% IV 100 00 OP, Start mL date: 12/10/12 6:30:00, Stop date: 12/10/12 23:00:00 Invanz + 2012-0 No Garth P 1 gm, Memor ia Sodium 3-07 Gabriele Route: l Chloride 12:30: IVPB, PRE Herm fara 0.9% IV 100 00 OP, Start mL date: 12/10/12 6:30:00, Stop date: 12/10/12 23:00:00 Invanz + 2012-0 No Garth P 1 gm, Memor ia Sodium 3-07 Gabriele Route: l Chloride 12:30: IVPB, PRE Herm fara 0.9% IV 100 00 OP, Start mL date: 12/10/12 6:30:00, Stop date: 12/10/12 23:00:00 Invanz + 2012-0 No Garth P 1 gm, Memor ia Sodium 3-07 Gabriele Route: l Chloride 12:30: IVPB, PRE Herm fara 0.9% IV 100 00 OP, Start mL date: 12/10/12 6:30:00, Stop date: 12/10/12 23:00:00 Invanz + 2012-0 No Garth P 1 gm, Memor ia Sodium 3-07 Gabriele Route: l Chloride 12:30: IVPB, PRE Herm fara 0.9% IV 100 00 OP, Start mL date: 12/10/12 6:30:00, Stop date: 12/10/12 23:00:00 Invanz + 2012-0 No Garth P 1 gm, Memor ia Sodium 3-07 Gabriele Route: l Chloride 12:30: IVPB, PRE Herm fara 0.9% IV 100 00 OP, Start mL date: 12/10/12 6:30:00, Stop date: 12/10/12 23:00:00 Invanz + 2012-0 No Garth P 1 gm, Memor ia Sodium 3-07 Gabriele Route: l Chloride 12:30: IVPB, PRE Herm fara 0.9% IV 100 00 OP, Start mL date: 12/10/12 6:30:00, Stop date: 12/10/12 23:00:00 Invanz + 2012-0 No Garth P 1 gm, Memor ia Sodium 3-07 Gabriele Route: l Chloride 12:30: IVPB, PRE Herm fara 0.9% IV 100 00 OP, Start mL date: 12/10/12 6:30:00, Stop date: 12/10/12 23:00:00 Invanz + 2012-0 No Garth P 1 gm, Memor ia Sodium 3-07 Gabriele Route: l Chloride 12:30: IVPB, PRE Herm fara 0.9% IV 100 00 OP, Start mL date: 12/10/12 6:30:00, Stop date: 12/10/12 23:00:00 Invanz + 2012-0 No Garth P 1 gm, Memor ia Sodium 3-07 Gabriele Route: l Chloride 12:30: IVPB, PRE Herm fara 0.9% IV 100 00 OP, Start mL date: 12/10/12 6:30:00, Stop date: 12/10/12 23:00:00 Invanz + 2012-0 No Garth P 1 gm, Memor ia Sodium 3-07 Gabriele Route: l Chloride 12:30: IVPB, PRE Herm fara 0.9% IV 100 00 OP, Start mL date: 12/10/12 6:30:00, Stop date: 12/10/12 23:00:00 Invanz + 2012-0 No Garth P 1 gm, Memor ia Sodium 3-07 Gabriele Route: l Chloride 12:30: IVPB, PRE Herm fara 0.9% IV 100 00 OP, Start mL date: 12/10/12 6:30:00, Stop date: 12/10/12 23:00:00 Invanz + 2012-0 No Garth P 1 gm, Memor ia Sodium 3-07 Gabriele Route: l Chloride 12:30: IVPB, PRE Herm fara 0.9% IV 100 00 OP, Start mL date: 12/10/12 6:30:00, Stop date: 12/10/12 23:00:00 Invanz + 2012-0 No Garth P 1 gm, Memor ia Sodium 3-07 Gabriele Route: l Chloride 12:30: IVPB, PRE Herm fara 0.9% IV 100 00 OP, Start mL date: 12/10/12 6:30:00, Stop date: 12/10/12 23:00:00 Invanz + 2012-0 No Garth P 1 gm, Memor ia Sodium 3-07 Gabriele Route: l Chloride 12:30: IVPB, PRE Herm fara 0.9% IV 100 00 OP, Start mL date: 12/10/12 6:30:00, Stop date: 12/10/12 23:00:00 Invanz + 2012-0 No Garth P 1 gm, Memor ia Sodium 3-07 Gabriele Route: l Chloride 12:30: IVPB, PRE Herm fara 0.9% IV 100 00 OP, Start mL date: 12/10/12 6:30:00, Stop date: 12/10/12 23:00:00 Invanz + 2012-0 No Garth P 1 gm, Memor ia Sodium 3-07 Gabriele Route: l Chloride 12:30: IVPB, PRE Herm fara 0.9% IV 100 00 OP, Start mL date: 12/10/12 6:30:00, Stop date: 12/10/12 23:00:00 Invanz + 0 No Garth P 1 gm, Memor ia Sodium 3-07 Gabriele Route: l Chloride 12:30: IVPB, PRE Herm fara 0.9% IV 100 00 OP, Start mL date: 12/10/12 6:30:00, Stop date: 12/10/12 23:00:00 Invanz + 0 No Garth P 1 gm, Memor ia Sodium 3-07 Gabriele Route: l Chloride 12:30: IVPB, PRE Herm fara 0.9% IV 100 00 OP, Start mL date: 12/10/12 6:30:00, Stop date: 12/10/12 23:00:00 Invanz + 2012-0 No Garth P 1 gm, Memor ia Sodium 3-07 Gabriele Route: l Chloride 12:30: IVPB, PRE Herm fara 0.9% IV 100 00 OP, Start mL date: 12/10/12 6:30:00, Stop date: 12/10/12 23:00:00 Invanz + 2012-0 No Garth P 1 gm, Memor ia Sodium 3-07 Gabriele Route: l Chloride 12:30: IVPB, PRE Herm fara 0.9% IV 100 00 OP, Start mL date: 12/10/12 6:30:00, Stop date: 12/10/12 23:00:00 Invanz + 2012-0 No Garth P 1 gm, Memor ia Sodium 3-07 Gabriele Route: l Chloride 12:30: IVPB, PRE Herm fara 0.9% IV 100 00 OP, Start mL date: 12/10/12 6:30:00, Stop date: 12/10/12 23:00:00 Invanz + No Garth P 1 gm, Memor ia Sodium 3-07 Gabriele Route: l Chloride 12:30: IVPB, PRE Herm fara 0.9% IV 100 00 OP, Start mL date: 12/10/12 6:30:00, Stop date: 12/10/12 23:00:00 Invanz + No Garth P 1 gm, Memor ia Sodium 3-07 Gabriele Route: l Chloride 12:30: IVPB, PRE Herm fara 0.9% IV 100 00 OP, Start mL date: 12/10/12 6:30:00, Stop date: 12/10/12 23:00:00 Invanz + No Garth P 1 gm, Memor ia Sodium 3-07 Gabriele Route: l Chloride 12:30: IVPB, PRE Herm fara 0.9% IV 100 00 OP, Start mL date: 12/10/12 6:30:00, Stop date: 12/10/12 23:00:00 Invanz + No Garth P 1 gm, Memor ia Sodium 3-07 Gabriele Route: l Chloride 12:30: IVPB, PRE Herm fara 0.9% IV 100 00 OP, Start mL date: 12/10/12 6:30:00, Stop date: 12/10/12 23:00:00 Invanz + No Garth P 1 gm, Memor ia Sodium 3-07 Gabriele Route: l Chloride 12:30: IVPB, PRE Herm fara 0.9% IV 100 00 OP, Start mL date: 12/10/12 6:30:00, Stop date: 12/10/12 23:00:00 Invanz + 0 No Garth P 1 gm, Memor ia Sodium 3-07 Gabriele Route: l Chloride 12:30: IVPB, PRE Herm fara 0.9% IV 100 00 OP, Start mL date: 12/10/12 6:30:00, Stop date: 12/10/12 23:00:00 Invanz + 0 No Garth P 1 gm, Memor ia Sodium 3-07 Gabriele Route: l Chloride 12:30: IVPB, PRE Herm fara 0.9% IV 100 00 OP, Start mL date: 12/10/12 6:30:00, Stop date: 12/10/12 23:00:00 Invanz + No Garth P 1 gm, Memor ia Sodium 3-07 Gabriele Route: l Chloride 12:30: IVPB, PRE Herm fara 0.9% IV 100 00 OP, Start mL date: 12/10/12 6:30:00, Stop date: 12/10/12 23:00:00 Invanz + No Garth P 1 gm, Memor ia Sodium 3-07 Gabriele Route: l Chloride 12:30: IVPB, PRE Herm fara 0.9% IV 100 00 OP, Start mL date: 12/10/12 6:30:00, Stop date: 12/10/12 23:00:00 Invanz + No Garth P 1 gm, Memor ia Sodium 3-07 Gabriele Route: l Chloride 12:30: IVPB, PRE Herm fara 0.9% IV 100 00 OP, Start mL date: 12/10/12 6:30:00, Stop date: 12/10/12 23:00:00 Invanz + No Garth P 1 gm, Memor ia Sodium 3-07 Gabriele Route: l Chloride 12:30: IVPB, PRE Herm fara 0.9% IV 100 00 OP, Start mL date: 12/10/12 6:30:00, Stop date: 12/10/12 23:00:00 Invanz + No Garth P 1 gm, Memor ia Sodium 3-07 Gabriele Route: l Chloride 12:30: IVPB, PRE Herm fara 0.9% IV 100 00 OP, Start mL date: 12/10/12 6:30:00, Stop date: 12/10/12 23:00:00 Invanz + No Garth P 1 gm, Memor ia Sodium 3-07 Gabriele Route: l Chloride 12:30: IVPB, PRE Herm fara 0.9% IV 100 00 OP, Start mL date: 12/10/12 6:30:00, Stop date: 12/10/12 23:00:00 Invanz + No Garth P 1 gm, Memor ia Sodium 3-07 Gabriele Route: l Chloride 12:30: IVPB, PRE Herm fara 0.9% IV 100 00 OP, Start mL date: 12/10/12 6:30:00, Stop date: 12/10/12 23:00:00 Invanz + No Garth P 1 gm, Memor ia Sodium 3-07 Gabriele Route: l Chloride 12:30: IVPB, PRE Herm fara 0.9% IV 100 00 OP, Start mL date: 12/10/12 6:30:00, Stop date: 12/10/12 23:00:00 Invanz + No Garth P 1 gm, Memor ia Sodium 3-07 Gabriele Route: l Chloride 12:30: IVPB, PRE Herm fara 0.9% IV 100 00 OP, Start mL date: 12/10/12 6:30:00, Stop date: 12/10/12 23:00:00 Invanz + No Garth P 1 gm, Memor ia Sodium 3-07 Gabriele Route: l Chloride 12:30: IVPB, PRE Herm fara 0.9% IV 100 00 OP, Start mL date: 12/10/12 6:30:00, Stop date: 12/10/12 23:00:00 Invanz + No Garth P 1 gm, Memor ia Sodium 3-07 Gabriele Route: l Chloride 12:30: IVPB, PRE Herm fara 0.9% IV 100 00 OP, Start mL date: 12/10/12 6:30:00, Stop date: 12/10/12 23:00:00 Invanz + No Garth P 1 gm, Memor ia Sodium 3-07 Gabriele Route: l Chloride 12:30: IVPB, PRE Herm fara 0.9% IV 100 00 OP, Start mL date: 12/10/12 6:30:00, Stop date: 12/10/12 23:00:00 Diovan 320 No 320 mg, 1 Me moria mg oral 2-21 tab, PO, l tablet 20:30: Daily, 90 Abhijit n 32 tab, Substituti on Allowed, TAB Diovan 320 No 320 mg, 1 Me moria mg oral 2-21 tab, PO, l tablet 20:30: Daily, [address] [place], [place] [id number] n 32 tab, Substituti on Allowed, TAB Diovan 320 2013-0 No 320 mg, 1 Me moria mg oral 2-21 tab, PO, l tablet 20:30: Daily, [address] [place], [place] [id number] n 32 tab, Substituti on Allowed, TAB Diovan 320 2013-0 No 320 mg, 1 Me moria mg oral 2-21 tab, PO, l tablet 20:30: Daily, [address] [place], [place] [id number] n 32 tab, Substituti on Allowed, TAB Diovan 320 2013-0 No 320 mg, 1 Me moria mg oral 2-21 tab, PO, l tablet 20:30: Daily, [address] [place], [place] [id number] n 32 tab, Substituti on Allowed, TAB Diovan 320 2013-0 No 320 mg, 1 Me moria mg oral 2-21 tab, PO, l tablet 20:30: Daily, [address] [place] [address] n 32 tab, Substituti on Allowed, TAB Diovan 320 2013-0 No 320 mg, 1 Me moria mg oral 2-21 tab, PO, l tablet 20:30: Daily, [address] [place], [place] [id number] [facility] tab, Substituti on Allowed, TAB Diovan 320 2013-0 No 320 mg, 1 Me moria mg oral 2-21 tab, PO, l tablet 20:30: Daily, [address] [place], [place] [id number] n 32 tab, Substituti on Allowed, TAB Diovan 320 2013-0 No 320 mg, 1 Me moria mg oral 2-21 tab, PO, l tablet 20:30: Daily, [address] [place], [place] [id number] n tab, Substituti on Allowed, TAB Diovan 320 2013-0 No 320 mg, 1 Me moria mg oral 2-21 tab, PO, l tablet 20:30: Daily, [address] [place] [address] n 32 tab, Substituti on Allowed, TAB Diovan 320 2013-0 No 320 mg, 1 Me moria mg oral 2-21 tab, PO, l tablet 20:30: Daily, [address] [place], [place] [id number] n 32 tab, Substituti on Allowed, TAB Diovan 320 2013-0 No 320 mg, 1 Me moria mg oral 2-21 tab, PO, l tablet 20:30: Daily, [address] [place] [address] n tab, Substituti on Allowed, TAB Diovan 320 2013-0 No 320 mg, 1 Me moria mg oral 2-21 tab, PO, l tablet 20:30: Daily, [address] [place] [address] n 32 tab, Substituti on Allowed, TAB Diovan 320 2013-0 No 320 mg, 1 Me moria mg oral 2-21 tab, PO, l tablet 20:30: Daily, [address] [place], [place] [id number] n 32 tab, Substituti on Allowed, TAB Diovan 320 2013-0 No 320 mg, 1 Me moria mg oral 2-21 tab, PO, l tablet 20:30: Daily, [address] [place], [place] [id number] n 32 tab, Substituti on Allowed, TAB Diovan 320 2013-0 No 320 mg, 1 Me moria mg oral 2-21 tab, PO, l tablet 20:30: Daily, [address] [place], [place] [id number] n 32 tab, Substituti on Allowed, TAB Diovan 320 2013-0 No 320 mg, 1 Me moria mg oral 2-21 tab, PO, l tablet 20:30: Daily, [address] [place], [place] [id number] 32 tab, Substituti on Allowed, TAB Diovan 320 2013-0 No 320 mg, 1 Me moria mg oral 2-21 tab, PO, l tablet 20:30: Daily, [address] [place], [place] [id number] [facility] tab, Substituti on Allowed, TAB Diovan 320 2013-0 No 320 mg, 1 Me moria mg oral 2-21 tab, PO, l tablet 20:30: Daily, [address] [place], [place] [id number] [facility] tab, Substituti on Allowed, TAB Diovan 320 2013-0 No 320 mg, 1 Me moria mg oral 2-21 tab, PO, l tablet 20:30: Daily, [address] [place], [place] [id number] [facility] tab, Substituti on Allowed, TAB Diovan 320 2013-0 No 320 mg, 1 Me moria mg oral 2-21 tab, PO, l tablet 20:30: Daily, [address] [place] [address] tab, Substituti on Allowed, TAB Diovan 320 2013-0 No 320 mg, 1 Me moria mg oral 2-21 tab, PO, l tablet 20:30: Daily, [address] [place], [place] [id number] n 32 tab, Substituti on Allowed, TAB Diovan 320 2013-0 No 320 mg, 1 Me moria mg oral 2-21 tab, PO, l tablet 20:30: Daily, [address] [place], [place] [id number] n 32 tab, Substituti on Allowed, TAB Diovan 320 2013-0 No 320 mg, 1 Me moria mg oral 2-21 tab, PO, l tablet 20:30: Daily, 90 Abhijit n 32 tab, Substituti on Allowed, TAB Diovan 320 2013-0 No 320 mg, 1 Me moria mg oral 2-21 tab, PO, l tablet 20:30: Daily, [address] [place] [address] n 32 tab, Substituti on Allowed, TAB Diovan 320 2013-0 No 320 mg, 1 Me moria mg oral 2-21 tab, PO, l tablet 20:30: Daily, [address] [place] [address] n 32 tab, Substituti on Allowed, TAB Diovan 320 2013-0 No 320 mg, 1 Me moria mg oral 2-21 tab, PO, l tablet 20:30: Daily, [address] [place] [address] n 32 tab, Substituti on Allowed, TAB Diovan 320 2013-0 No 320 mg, 1 Me moria mg oral 2-21 tab, PO, l tablet 20:30: Daily, [address] [place] [address] 32 tab, Substituti on Allowed, TAB Diovan 320 2013-0 No 320 mg, 1 Me moria mg oral 2-21 tab, PO, l tablet 20:30: Daily, [address] [place] [address] tab, Substituti on Allowed, TAB Diovan 320 2013-0 No 320 mg, 1 Me moria mg oral 2-21 tab, PO, l tablet 20:30: Daily, [address] [place] [address] tab, Substituti on Allowed, TAB Diovan 320 2013-0 No 320 mg, 1 Me moria mg oral 2-21 tab, PO, l tablet 20:30: Daily, [address] [place] [address] 32 tab, Substituti on Allowed, TAB Diovan 320 2013-0 No 320 mg, 1 Me moria mg oral 2-21 tab, PO, l tablet 20:30: Daily, [address] [place] [address] tab, Substituti on Allowed, TAB Diovan 320 2013-0 No 320 mg, 1 Me moria mg oral 2-21 tab, PO, l tablet 20:30: Daily, [address] [place] [address] n tab, Substituti on Allowed, TAB Diovan 320 2013-0 No 320 mg, 1 Me moria mg oral 2-21 tab, PO, l tablet 20:30: Daily, [address] [place] [address] n 32 tab, Substituti on Allowed, TAB Diovan 320 2013-0 No 320 mg, 1 Me moria mg oral 2-21 tab, PO, l tablet 20:30: Daily, 90 Abhijit n 32 tab, Substituti on Allowed, TAB Diovan 320 2013-0 No 320 mg, 1 Me moria mg oral 2-21 tab, PO, l tablet 20:30: Daily, [address] [place], [place] [id number] n 32 tab, Substituti on Allowed, TAB Diovan 320 2013-0 No 320 mg, 1 Me moria mg oral 2-21 tab, PO, l tablet 20:30: Daily, [address] [place] [address] n 32 tab, Substituti on Allowed, TAB Diovan 320 2013-0 No 320 mg, 1 Me moria mg oral 2-21 tab, PO, l tablet 20:30: Daily, [address] [place] [address] n 32 tab, Substituti on Allowed, TAB Diovan 320 2013-0 No 320 mg, 1 Me moria mg oral 2-21 tab, PO, l tablet 20:30: Daily, [address] [place] [address] n 32 tab, Substituti on Allowed, TAB Diovan 320 2013-0 No 320 mg, 1 Me moria mg oral 2-21 tab, PO, l tablet 20:30: Daily, [address] [place] [address] n 32 tab, Substituti on Allowed, TAB Diovan 320 2013-0 No 320 mg, 1 Me moria mg oral 2-21 tab, PO, l tablet 20:30: Daily, [address] [place] [address] n 32 tab, Substituti on Allowed, TAB Diovan 320 2013-0 No 320 mg, 1 Me moria mg oral 2-21 tab, PO, l tablet 20:30: Daily, [address] [place] [address] n 32 tab, Substituti on Allowed, TAB Diovan 320 2013-0 No 320 mg, 1 Me moria mg oral 2-21 tab, PO, l tablet 20:30: Daily, [address] [place] [address] n 32 tab, Substituti on Allowed, TAB Diovan 320 2013-0 No 320 mg, 1 Me moria mg oral 2-21 tab, PO, l tablet 20:30: Daily, [address] [place] [address] n 32 tab, Substituti on Allowed, TAB Diovan 320 2013-0 No 320 mg, 1 Me moria mg oral 2-21 tab, PO, l tablet 20:30: Daily, [address] [place] [address] n 32 tab, Substituti on Allowed, TAB Diovan 320 2013-0 No 320 mg, 1 Me moria mg oral 2-21 tab, PO, l tablet 20:30: Daily, [address] [place] [address] n 32 tab, Substituti on Allowed, TAB Diovan 320 2013-0 No 320 mg, 1 Me moria mg oral 2-21 tab, PO, l tablet 20:30: Daily, [address] [place], [place] [id number] n 32 tab, Substituti on Allowed, TAB Diovan 320 2013-0 No 320 mg, 1 Me moria mg oral 2-21 tab, PO, l tablet 20:30: Daily, [address] [place], [place] [id number] n 32 tab, Substituti on Allowed, TAB Diovan 320 2013-0 No 320 mg, 1 Me moria mg oral 2-21 tab, PO, l tablet 20:30: Daily, [address] [place] [address] n 32 tab, Substituti on Allowed, TAB Diovan 320 2013-0 No 320 mg, 1 Me moria mg oral 2-21 tab, PO, l tablet 20:30: Daily, [address] [place], [place] [id number] n 32 tab, Substituti on Allowed, TAB Diovan 320 2013-0 No 320 mg, 1 Me moria mg oral 2-21 tab, PO, l tablet 20:30: Daily, [address] [place] [address] n 32 tab, Substituti on Allowed, TAB Diovan 320 2013-0 No 320 mg, 1 Me moria mg oral 2-21 tab, PO, l tablet 20:30: Daily, [address] [place] [address] n 32 tab, Substituti on Allowed, TAB Diovan 320 2013-0 No 320 mg, 1 Me moria mg oral 2-21 tab, PO, l tablet 20:30: Daily, [address] [place] [address] n 32 tab, Substituti on Allowed, TAB Diovan 320 2013-0 No 320 mg, 1 Me moria mg oral 2-21 tab, PO, l tablet 20:30: Daily, [address] [place] [address] n 32 tab, Substituti on Allowed, TAB Diovan 320 2013-0 No 320 mg, 1 Me moria mg oral 2-21 tab, PO, l tablet 20:30: Daily, [address] [place] [address] n 32 tab, Substituti on Allowed, TAB Diovan 320 2013-0 No 320 mg, 1 Me moria mg oral 2-21 tab, PO, l tablet 20:30: Daily, [address] [place] [address] n 32 tab, Substituti on Allowed, TAB Diovan 320 2013-0 No 320 mg, 1 Me moria mg oral 2-21 tab, PO, l tablet 20:30: Daily, [address] [place] [address] n 32 tab, Substituti on Allowed, TAB hydrochloro 2013-0 No 25 mg, PO, Memoria thiazide 2-21 Daily, l 20:30: Substituti Dipesh 18 on Allowed hydrochloro 2013-0 No 25 mg, PO, Memoria thiazide 2-21 Daily, l 20:30: Substituti Dipesh 18 on Allowed hydrochloro 2013-0 No 25 mg, PO, Memoria thiazide 2-21 Daily, l 20:30: Substituti Dipesh 18 on Allowed hydrochloro 2013-0 No 25 mg, PO, Memoria thiazide 2-21 Daily, l 20:30: Substituti Dipesh 18 on Allowed hydrochloro 2013-0 No 25 mg, PO, Memoria thiazide 2-21 Daily, l 20:30: Substituti Lolo 18 on Allowed hydrochloro 2013-0 No 25 mg, PO, Memoria thiazide 2-21 Daily, l 20:30: Substituti Lolo 18 on Allowed hydrochloro 2013-0 No 25 mg, PO, Memoria thiazide 2-21 Daily, l 20:30: Substituti Dipesh 18 on Allowed hydrochloro 2013-0 No 25 mg, PO, Memoria thiazide 2-21 Daily, l 20:30: Substituti Dipesh 18 on Allowed hydrochloro 2013-0 No 25 mg, PO, Memoria thiazide 2-21 Daily, l 20:30: Substituti Dipesh 18 on Allowed hydrochloro 2013-0 No 25 mg, PO, Memoria thiazide 2-21 Daily, l 20:30: Substituti Lolo 18 on Allowed hydrochloro 2013-0 No 25 mg, PO, Memoria thiazide 2-21 Daily, l 20:30: Substituti Dipesh 18 on Allowed hydrochloro 2013-0 No 25 mg, PO, Memoria thiazide 2-21 Daily, l 20:30: Substituti Dipesh 18 on Allowed hydrochloro 2013-0 No 25 mg, PO, Memoria thiazide 2-21 Daily, l 20:30: Substituti Lolo 18 on Allowed hydrochloro 2013-0 No 25 mg, PO, Memoria thiazide 2-21 Daily, l 20:30: Substituti Dipesh 18 on Allowed hydrochloro 2013-0 No 25 mg, PO, Memoria thiazide 2-21 Daily, l 20:30: Substituti Dipesh 18 on Allowed hydrochloro 2013-0 No 25 mg, PO, Memoria thiazide 2-21 Daily, l 20:30: Substituti Dipesh 18 on Allowed hydrochloro 2013-0 No 25 mg, PO, Memoria thiazide 2-21 Daily, l 20:30: Substituti Dipesh 18 on Allowed hydrochloro 2013-0 No 25 mg, PO, Memoria thiazide 2-21 Daily, l 20:30: Substituti Lolo 18 on Allowed hydrochloro 2013-0 No 25 mg, PO, Memoria thiazide 2-21 Daily, l 20:30: Substituti Lolo 18 on Allowed hydrochloro 2013-0 No 25 mg, PO, Memoria thiazide 2-21 Daily, l 20:30: Substituti Dipesh 18 on Allowed hydrochloro 2013-0 No 25 mg, PO, Memoria thiazide 2-21 Daily, l 20:30: Substituti Dipesh 18 on Allowed hydrochloro 2013-0 No 25 mg, PO, Memoria thiazide 2-21 Daily, l 20:30: Substituti Dipesh 18 on Allowed hydrochloro 2013-0 No 25 mg, PO, Memoria thiazide 2-21 Daily, l 20:30: Substituti Lolo 18 on Allowed hydrochloro 2013-0 No 25 mg, PO, Memoria thiazide 2-21 Daily, l 20:30: Substituti Dipesh 18 on Allowed hydrochloro 2013-0 No 25 mg, PO, Memoria thiazide 2-21 Daily, l 20:30: Substituti Dipesh 18 on Allowed hydrochloro 2013-0 No 25 mg, PO, Memoria thiazide 2-21 Daily, l 20:30: Substituti Dipesh 18 on Allowed hydrochloro 2013-0 No 25 mg, PO, Memoria thiazide 2-21 Daily, l 20:30: Substituti Dipesh 18 on Allowed hydrochloro 2013-0 No 25 mg, PO, Memoria thiazide 2-21 Daily, l 20:30: Substituti Dipesh 18 on Allowed hydrochloro 2013-0 No 25 mg, PO, Memoria thiazide 2-21 Daily, l 20:30: Substituti Dipesh 18 on Allowed hydrochloro 2013-0 No 25 mg, PO, Memoria thiazide 2-21 Daily, l 20:30: Substituti Dipesh 18 on Allowed hydrochloro 2013-0 No 25 mg, PO, Memoria thiazide 2-21 Daily, l 20:30: Substituti Dipesh 18 on Allowed hydrochloro 2013-0 No 25 mg, PO, Memoria thiazide 2-21 Daily, l 20:30: Substituti Dipesh 18 on Allowed hydrochloro 2013-0 No 25 mg, PO, Memoria thiazide 2-21 Daily, l 20:30: Substituti Dipesh 18 on Allowed hydrochloro 2013-0 No 25 mg, PO, Memoria thiazide 2-21 Daily, l 20:30: Substituti Lolo 18 on Allowed hydrochloro 2013-0 No 25 mg, PO, Memoria thiazide 2-21 Daily, l 20:30: Substituti Lolo 18 on Allowed hydrochloro 2013-0 No 25 mg, PO, Memoria thiazide 2-21 Daily, l 20:30: Substituti Dipesh 18 on Allowed hydrochloro 2013-0 No 25 mg, PO, Memoria thiazide 2-21 Daily, l 20:30: Substituti Lolo 18 on Allowed hydrochloro 2013-0 No 25 mg, PO, Memoria thiazide 2-21 Daily, l 20:30: Substituti Lolo 18 on Allowed hydrochloro 2013-0 No 25 mg, PO, Memoria thiazide 2-21 Daily, l 20:30: Substituti Dipesh 18 on Allowed hydrochloro 2013-0 No 25 mg, PO, Memoria thiazide 2-21 Daily, l 20:30: Substituti Dipesh 18 on Allowed hydrochloro 2013-0 No 25 mg, PO, Memoria thiazide 2-21 Daily, l 20:30: Substituti Dipesh 18 on Allowed hydrochloro 2013-0 No 25 mg, PO, Memoria thiazide 2-21 Daily, l 20:30: Substituti Lolo 18 on Allowed hydrochloro 2013-0 No 25 mg, PO, Memoria thiazide 2-21 Daily, l 20:30: Substituti Dipesh 18 on Allowed hydrochloro 2013-0 No 25 mg, PO, Memoria thiazide 2-21 Daily, l 20:30: Substituti Lolo 18 on Allowed hydrochloro 2013-0 No 25 mg, PO, Memoria thiazide 2-21 Daily, l 20:30: Substituti Dipesh 18 on Allowed hydrochloro 2013-0 No 25 mg, PO, Memoria thiazide 2-21 Daily, l 20:30: Substituti Dipesh 18 on Allowed hydrochloro 2013-0 No 25 mg, PO, Memoria thiazide 2-21 Daily, l 20:30: Substituti Dipesh 18 on Allowed hydrochloro 2013-0 No 25 mg, PO, Memoria thiazide 2-21 Daily, l 20:30: Substituti Dipesh 18 on Allowed hydrochloro 2013-0 No 25 mg, PO, Memoria thiazide 2-21 Daily, l 20:30: Substituti Lolo 18 on Allowed hydrochloro 2013-0 No 25 mg, PO, Memoria thiazide 2-21 Daily, l 20:30: Substituti Lolo 18 on Allowed hydrochloro 2013-0 No 25 mg, PO, Memoria thiazide 2-21 Daily, l 20:30: Substituti Dipesh 18 on Allowed hydrochloro 2013-0 No 25 mg, PO, Memoria thiazide 2-21 Daily, l 20:30: Substituti Lolo 18 on Allowed hydrochloro 2013-0 No 25 mg, PO, Memoria thiazide 2-21 Daily, l 20:30: Substituti Lolo 18 on Allowed hydrochloro 2013-0 No 25 mg, PO, Memoria thiazide 2-21 Daily, l 20:30: Substituti Dipesh 18 on Allowed hydrochloro 2013-0 No 25 mg, PO, Memoria thiazide 2-21 Daily, l 20:30: Substituti Dipesh 18 on Allowed hydrochloro 2013-0 No 25 mg, PO, Memoria thiazide 2-21 Daily, l 20:30: Substituti Dipesh 18 on Allowed hydrochloro 2013-0 No 25 mg, PO, Memoria thiazide 2-21 Daily, l 20:30: Substituti Lolo 18 on Allowed Immunizations Ordered Filled Date Status Comments Source Immunization Name Immunization Name Pfizer SARS-CoV-2 2021-06-14 Completed Univer sity of Vaccination (Purple 00:00:00 Thien CLEMONS [facility]) Kalpesh Almita [facility] SARS-CoV-2 2020-10-18 Completed Univer sity of Vaccination (Purple 00:00:00 Thien CLEMONS [facility]) Kalpesh Recio [facility] SARS-CoV-2 2020-09-27 Completed Univer sity of Vaccination (Purple 00:00:00 Thien CLEMONS [facility]) Gibbon Almita [facility] SARS-CoV-2 Unknown Completed Univer sity of Vaccination ([facility]) [facility] Pfizer SARS-CoV-2 Unknown Completed Univer sity of Vaccination ([facility]) [facility] Pfizer SARS-CoV-2 Unknown Completed Univer sity of Vaccination ([facility]) [facility] Pfizer SARS-CoV-2 Unknown Completed Univer sity of Vaccination ([facility]) [facility] Pfizer SARS-CoV-2 Unknown Completed Univer sity of Vaccination ([facility]) [facility] Pfizer SARS-CoV-2 Unknown Completed Univer sity of Vaccination ([facility]) [facility] Vital Signs Vital Name Observation Time Observation Value Comments Source Systolic blood 2023-09-01 150 mm[Hg] having hip University of pressure 19:29:59 pain; informed [facility] Diastolic blood 2023-09-01 93 mm[Hg] having hip University o f pressure 19:29:59 pain; informed [facility] Heart rate 2023-09-01 70 /min University of 19:29:59 [facility] Body temperature 2023-09-01 37 [place] University of 19:29:59 [facility] Respiratory rate 2023-09-01 16 /min University of 19:29:59 [facility] Body height 2023-09-01 170.2 cm University of 19:29:59 [facility] Body weight 2023-09-01 92.8 kg University of 19:29:59 [facility] BMI 2023-09-01 32.04 kg/m2 University of 19:29:59 [facility] Oxygen saturation 2023-09-01 100 /min University in Arterial blood 19:29:59 [facility] by Pulse oximetry [facility] Systolic blood 2023-01-04 151 mm[Hg] University of pressure 15:15:00 [facility] Diastolic blood 2023-01-04 84 mm[Hg] University o f pressure 15:15:00 [facility] Heart rate 2023-01-04 80 /min University of 15:15:00 [facility] Body temperature 2023-01-04 36.78 [place] University of 15:15:00 [facility] Respiratory rate 2023-01-04 18 /min University of 15:15:00 [facility] Oxygen saturation 2023-01-04 98 /min [facility] in Arterial blood 15:15:00 Thien CLEMONS by Pulse oximetry [facility] Body weight 2023-01-04 93.6 kg [facility] 13:31:22 [facility] BMI 2023-01-04 32.31 kg/m2 [facility] 13:31:22 [facility] Body height 2022-11-29 170.2 cm [facility] 19:54:00 [facility] Systolic (mm Hg) 2012-12-12 [facility] 13:00:00 Diastolic (mm Hg) 2012-12-12 [facility] 13:00:00 Respitory Rate 2012-12-12 [facility] 13:00:00 Heart Rate 2012-12-12 [facility] 13:00:00 Temperature Oral 2012-12-12 97.9 F [facility] (F) 13:00:00 Temperature Oral 2012-12-12 98.1 F [facility] (F) 09:00:00 Respitory Rate 2012-12-12 [facility] 09:00:00 Diastolic (mm Hg) 2012-12-12 [facility] 09:00:00 Heart Rate 2012-12-12 [facility] 09:00:00 Systolic (mm Hg) 2012-12-12 [facility] 09:00:00 Diastolic (mm Hg) 2012-12-12 [facility] 03:00:00 Respitory Rate 2012-12-12 [facility] 03:00:00 Systolic (mm Hg) 2012-12-12 [facility] 03:00:00 Heart Rate 2012-12-12 [facility] 03:00:00 Temperature Oral 2012-12-12 98.5 F [facility]mann (F) 03:00:00 Height 2012-11-26 167.64 cm [facility] 20:29:00 Weight 2012-11-26 [facility] 20:29:00 Procedures Procedure Date / Time Performing Clinician Source Performed COMPLETE BLOOD COUNT W/ 2023-09-01 18:33:00 Ewa Eirc [facility] DIFFERENTIAL [facility] IRON LEVEL 2023-09-01 18:33:00 Ewa Eric [place] [facility] FERRITIN 2023-09-01 18:33:00 Hernesto [facility] TRANSFERRIN 2023-09-01 18:33:00 Hernesto [facility] .CBC 2023-09-01 18:33:00 Hernesto [facility] MRI PELVIS W WO CONTRAST 2023-07-04 14:07:00 [facility] BARIUM SWALLOW 2023-05-30 16:27:47 [facility]CH [facility] COMPLETE BLOOD COUNT W/ 2023-05-30 15:08:00 Hernesto [facility] DIFFERENTIAL [facility] IRON LEVEL 2023-05-30 15:08:00 Hernesto [facility] FERRITIN 2023-05-30 15:08:00 Hernesto [facility] TRANSFERRIN 2023-05-30 15:08:00 Hernesto [facility] .CBC 2023-05-30 15:08:00 Hernesto [facility] DIFFERENTIAL 2023-05-30 15:08:00 Hernesto [facility] SEDIMENTATION RATE 2023-05-30 14:58:00 Essence [facility] NON-AUTOMATED [facility] C REACTIVE PROTEIN 2023-05-30 14:58:00 Essence [facility] COMPREHENSIVE METABOLIC 2023-05-30 14:58:00 Essence [facility] PANEL [facility] HLA PATIENT COLLECTION 2023-05-30 14:58:00 Essence [facility] Cancer HLA PATIENT Center GLUCOSE LEVEL 2023-05-30 14:58:[address] [facility] BLOOD UREA NITROGEN 2023-05-30 14:58:00 Essence [facility] ELECTROLYTE PANEL 2023-05-30 14:58:00 Bunemery, [facility] SERUM CREATININE 2023-05-30 14:58:00 Essence [facility] .GLOMERULAR FILTRATION 2023-05-30 14:58:00 Essence Ashley [facility] RATE [facility] CALCIUM LEVEL 2023-05-30 14:58:[address] [facility] ALBUMIN LEVEL 2023-05-30 14:58:[address] [facility] ALKALINE PHOSPHATASE 2023-05-30 14:58:00 Essence [facility] ALANINE AMINOTRANSFERASE 2023-05-30 14:58:00 Essence [facility] ASPARTATE AMINOTRANSFERASE 2023-05-30 14:58:00 [facility] TOTAL PROTEIN 2023-05-30 14:58:[address] [facility] FRACTIONATED BILIRUBIN 2023-05-30 14:58:00 Essence [facility] FREE THYROXINE 2023-03-18 15:36:[address] [facility] THYROID STIMULATING 2023-03-18 15:36[facility]00 [facility] COMPLETE BLOOD COUNT W/ 2023-03-18 15:36:00 Hernesto [facility] DIFFERENTIAL [facility] IRON LEVEL 2023-03-18 15:36:00 Hernesto [facility] FERRITIN 2023-03-18 15:36:00 Hernesto [facility] TRANSFERRIN 2023-03-18 15:36:00 Hernesto [facility] .CBC 2023-03-18 15:36:[address] [facility] Center DIFFERENTIAL 2023-03-18 15:36:00 Hernesto [facility] URINE CULTURE 2023-01-14 18:03:[address] [facility] URINALYSIS WITH 2023-01-14 18:03:00 Essence [facility] MICROSCOPIC IF INDICATED MD Gera wiley [facility] PROTEIN / CREATININE RATIO 2023-01-14 18:03:00 [facility] URINE [facility] ANTINUCLEAR ANTIBODY HEP-2 2023-01-14 17:57:00 [facility] SUBSTRATE IGG [facility] ANCA PANEL FOR VASCULITIS 2023-01-14 17:57:00 [facility] SERUM [facility] ANTI B2 GLYCOPROTEIN 2023-01-14 17:57:[address] [facility] C3 COMPLEMENT 2023-01-14 17:57:[address] [facility] C4 COMPLEMENT 2023-01-14 17:57:[address] [facility] CARDIOLIPIN ANTIBODIES 2023-01-14 17:57:00 Essence [facility] C REACTIVE PROTEIN 2023-01-14 17:57:00 Essence [facility] CYCLIC CITRULLINE ANTIBODY 2023-01-14 17:57:00 Ashley Lowry [facility] IGG [facility] DNA ANTIBODY 2023-01-14 17:57:00 Essence [facility] (DOUBLE-STRANDED) IGG MD Segundo burrell [facility] SERUM PROTEIN 2023-01-14 17:57:00 Essence [facility] ELECTROPHORESIS WITH EDMUND MD Boss ana [facility] LUPUS ANTICOAGULANT 2023-01-14 17:57:00 Essence [facility] PROTEIN ELECTROPHORESIS 2023-01-14 17:57:00 Essence [facility] RHEUMATOID FACTOR 2023-01-14 17:57:00 Essence [facility] QUANTITATIVE [facility] BRAKE REPAIRER ANTIBODY IGG SERUM 2023-01-14 17:57:00 Ashley Lowry [facility] SCL 70 AB IGG SERUM 2023-01-14 17:57:00 Ashley Lowry [facility] SEDIMENTATION RATE 2023-01-14 17:57:00 Ashley Lowry [facility] y [facility] NON-AUTOMATED [facility] DIANE (SM) AB IGG SERUM 2023-01-14 17:57:00 Ashley Lowry [facility] SSA+SSB 2023-01-14 17:57:00 Essence [facility] o f [facility] HEPATITIS B CORE ANTIBODY 2023-01-14 17:57:00 Ashley Low[facility] IGM ACUTE TITER [facility] HEPATITIS B SURFACE 2023-01-14 17:57:00 [facility]ODY [facility] HEPATITIS B SURFACE 2023-01-14 17:57:00 Ashley Lowry [facility] ANTIGEN [facility] HIV 1/2 ANTIGEN/ANTIBODY, 2023-01-14 17:57:00 Ashley [facility] FOURTH GEN W/RFL [facility] VITAMIN D 25 HYDROXY LEVEL 2023-01-14 17:57:00 [facility] HEPATIT[facility] C VIRUS ANTIBODY 2023-01-14 17:57:00 Ashley [facility] HEPATITIS B CORE ANTIBODY 2023-01-14 17:57:00 [facility] .DR. BONE PROT ELEC PATH 2023-01-14 17:57:00 Ashley [facility] .DR. LIZANDRO SHAFFER PATH REVIEW 2023-01-14 17:57:00 Ashley [facility] LUPUS PATH REVIEW 2023-01-14 17:57:00 Ashley Lowry [facility] COMPLETE BLOOD COUNT W/ 2023-01-14 15:12:00 Hernesto [facility] DIFFERENTIAL [facility] Center IRON LEVEL 2023-01-14 15:12:[address] [facility] Center FERRITIN 2023-01-14 15:12:[address] [facility] Center TRANSFERRIN 2023-01-14 15:12:[address] [facility] Center .CBC 2023-01-14 15:12:[address] [facility] Center DIFFERENTIAL 2023-01-14 15:12:[address] [facility] Center COMPLETE BLOOD COUNT W/ 2022-11-29 17:47:00 Hernesto [facility] DIFFERENTIAL [facility] Center IRON LEVEL 2022-11-29 17:47:[address] [facility] Center FERRITIN 2022-11-29 17:47:[address] [facility] Center TRANSFERRIN 2022-11-29 17:47:[address] [facility] Center .CBC 2022-11-29 17:47:[address] [facility] Center DIFFERENTIAL 2022-11-29 17:47:[address] [facility] Center PATHOLOGY BIOPSY 2022-11-08 20:36:00 Eugene Sim [facility] INTERPRETATION [facility] Center DIAGNOSTIC UPPER 2022-11-08 20:08:00 Eugene Sim [facility] GASTROINTESTINAL ENDOSCOPY MD [facility] DIAGNOSTIC FLEXIBLE 2022-11-08 20:08:00 Eugene Sim [facility] COLONOSCOPY PROXIMAL TO MD Yobany jolley [facility] SPLENIC FLEXURE Center US LEG VENOUS DOPPLER 2022-10-23 17:09:[address] [facility] BILATERAL [facility] Center COMPLETE BLOOD COUNT W/ 2022-10-23 16:07:00 Hernesto [facility] DIFFERENTIAL [facility] Center BLOOD UREA NITROGEN 2022-10-23 16:07:00 Ewa Eric [facility] Center CREATININE 2022-10-23 16:07:00 Hernesto [facility] .CBC 2022-10-23 16:07:00 Hernesto [facility] DIFFERENTIAL 2022-10-23 16:07:00 Hernesto [facility] SERUM CREATININE 2022-10-23 16:07:00 Hernesto [facility] .GLOMERULAR FILTRATION 2022-10-23 16:07:00 Ewa Eric [facility] RATE [facility] COMPLETE BLOOD COUNT W/ 2022-10-04 21:18:00 Ewa Eric [facility] IRON LEVEL 2022-10-04 21:18:00 Hernesto [facility] FERRITIN 2022-10-04 21:18:00 [facility] 2022-10-04 21:18:00 Hernesto [facility] TYPE AND SCREEN 2022-10-04 21:18:00 [facility] .CBC 2022-10-04 21:18:00 Hernesot [facility] DIFFERENTIAL 2022-10-04 21:18:00 Hernesto [facility] ABORH 2022-10-04 21:18:00 Hernesto [facility] ANTIBODY SCREEN 2022-10-04 21:18:00 Hernesto [facility] CLOT EXPIRATION DATE 2022-10-04 21:18:[address] [facility] TMP INTERPRETATION 2022-10-04 21:18:00 Ewa Eric [facility] ANTIBODY SCREEN NEGATIVE [facility] COMPLETE BLOOD COUNT W/ 2022-08-23 21:12:00 Allison Pepe [facility] Center TRANSFERRIN 2022-08-23 21:12:00 Allison Pepe [facility] Center IRON LEVEL 2022-08-23 21:12:00 Allison Pepe [facility] Center FERRITIN LVL 2022-08-23 21:12:00 Allison Pepe [facility] Center Results CBC 2022-08-23 21:12:00 Allison Pepe [facility] Center MANUAL DIFFERENTIAL 2022-08-23 21:12:00 Allison Pepe [facility] FERRITIN LVL 2022-07-29 13:56:00 Aletha [facility] IRON LEVEL 2022-07-29 13:56:00 Aletha [facility] TRANSFERRIN 2022-07-29 13:56:00 Aletha [facility] COMPLETE BLOOD COUNT W/ 2022-07-29 13:56:00 Aletha [facility] DIFFERENTIAL [facility] APTT 2022-07-29 13:56:00 Aletha [facility] PROTHROMBIN TIME 2022-07-29 13:56:00 Aletha [facility] Results CBC 2022-07-29 13:56:00 Aletha [facility] Center MANUAL DIFFERENTIAL 2022-07-29 13:56:00 Ignacio Pompa [facility] HEMOGLOBIN 2022-05-08 16:10:00 Nikko Garcia [facility] TRANSFUSE RED BLOOD CELLS 2022-05-08 12:25:00 Nikolay Alvarenga [facility] PREPARE RBC 2022-05-08 09:53:00 Nikolay Alvarenga [facility] PRBC PRODUCT READY FOR 2022-05-08 09:53:00 Nikolay Alvarenga [facility] CORPORATE SERVICES MANAGER [facility] COMPLETE BLOOD COUNT W/ 2022-05-08 09:03:00 Nikolay Alvarenga ivkieran [facility] DIFFERENTIAL [facility] PROTHROMBIN TIME 2022-05-08 09:03:00 Nikolay Alvarenga [facility] APTT 2022-05-08 09:03:00 Nikolay Alvarenga [facility] TYPE AND SCREEN 2022-05-08 09:03:00 Nikolay Alvarenga [facility] COMPREHENSIVE METABOLIC 2022-05-08 09:03:00 Nikolay Alvarenga iversmadyson [facility] PANEL [facility] MAGNESIUM LEVEL 2022-05-08 09:03:00 Nikolay Alvarenga [facility] PHOSPHORUS LEVEL 2022-05-08 09:03:00 Nikolay Alvarenga [facility] ABORH 2022-05-08 09:03:00 Nikolay Alvarenga [facility] ANTIBODY SCREEN 2022-05-08 09:03:00 Nikolay Alvarenga [facility] Results CBC 2022-05-08 09:03:00 Nikolay Alvarenga [facility] MANUAL DIFFERENTIAL 2022-05-08 09:03:00 Nikolay Alvarenga [facility] GLUCOSE LEVEL 2022-05-08 09:03:00 Nikolay Alvarenga [facility] BLOOD UREA NITROGEN 2022-05-08 09:03:00 [facility] ELECTROLYTE PANEL 2022-05-08 09:03:00 [facility] CREATININE 2022-05-08 09:03:00 Nikolay Alvarenga [facility] .GLOMERULAR FILTRATION 2022-05-08 09:03:00 Nikolay [facility] CALCIUM LEVEL TOTAL 2022-05-08 09:03:00 Nikolay Alvarenga [facility] South[facility] miguel [facility] ALBUMIN LEVEL 2022-05-08 09:03:00 Nikolay Alvarenga [facility] ALKALINE PHOSPHATASE 2022-05-08 09:03:[address] [facility] [place] ALANINE AMINOTRANSFERASE 2022-05-08 09:03:00 Nikolay Alvarenga [facility] ASPARTATE AMINOTRANSFERASE 2022-05-08 09:03:00 Nikolay Alvarenga [facility] TOTAL PROTEIN 2022-05-08 09:03:00 Nikolay Alvarenga [facility] FRACTIONATED BILIRUBIN 2022-05-08 09:03:00 Nikolay Alvarenga [facility] CLOT EXPIRATION DATE 2022-05-08 09:03:[address] [facility] [place] TMP INTERPRETATION 2022-05-08 09:03:00 Nikol[facility] ANTIBODY SCREEN NEGATIVE MD Boss [facility] TMP CROSSMATCH 2022-05-08 09:03:00 Nikolay Alvarenga [facility] INTERPRETATION [facility] FACTOR VII ASSAY 2022-03-23 17:03:00 Aletha [facility] FACTOR II ASSAY 2022-03-23 17:03:00 Ignacio Pompa [facility] FACTOR IX ASSAY 2022-03-23 17:03:00 Aletha [facility] FACTOR X ASSAY 2022-03-23 17:03:00 Aletha [facility] FACTOR V ASSAY 2022-03-23 17:03:00 Aletha [facility] [place] FACTOR 2022-03-23 17:03:00 Ignacio Pom[facility] ANTIGEN, PLASMA [facility] FACTOR VIII ASSAY 2022-03-23 17:03:00 Aletha [facility] PROTHROMBIN TIME MIX (1:1) 2022-03-23 17:03:00 [facility] FERR[facility] LVL 2022-03-23 17:03:00 Aletha [facility] IRON LEVEL 2022-03-23 17:03:00 Aletha [facility] TRANSFERRIN 2022-03-23 17:03:00 Aletha [facility] RETICULOCYTE COUNT 2022-03-23 17:03:00 Ignacio Pompa [facility] AUTOMATED [facility] PERIPHERAL SMR FOR DOC 2022-03-23 17:03:00 Ignacio Pompa [facility] REVIEW [facility] FACTOR XI ASSAY 2022-03-23 17:03:00 Aletha [facility] [place] FACTOR 2022-03-23 17:03:00 Ignacio Pompa [facility] ACTIVITY, PLASMA [facility] COVID-19 (SARS-COV-2) 2022-03-23 12:19:00 Christy Guzman [facility] ASYMPTOMATIC-LT [facility] COMPLETE BLOOD COUNT W/ 2022-03-23 11:30:00 [facility] DI[facility] Results CBC 2022-03-23 11:30:00 Emily Richmond [facility] MANUAL DIFFERENTIAL 2022-03-23 11:30:[address] [facility] CT HEAD WO CONTRAST 2022-03-23 05:45:38 Sergey Wheatley [facility] TYPE AND SCREEN 2022-03-23 05:34:00 Sergey Wheatley [facility] CONFIRM ABORH TYPE 2022-03-23 05:34:[address] [facility] ABORH 2022-03-23 05:34:00 Dioni Sergey [facility] ANTIBODY SCREEN 2022-03-23 05:34:00 Sergey Wheatley [facility] TMP INTERPRETATION 2022-03-23 05:34:00 Sergey Wheatley [facility] ANTIBODY SCREEN NEGATIVE [facility] CLOT EXPIRATION DATE 2022-03-23 05:34:00 Sergey Wheatley [facility] COMPLETE BLOOD COUNT W/ 2022-03-23 04:50:00 Sergey Wheatley [facility] DIFFERENTIAL [facility] COMPREHENSIVE METABOLIC 2022-03-23 04:50:00 Sergey Wheatley [facility] PANEL [facility] PHOSPHORUS LEVEL 2022-03-23 04:50:00 Sergey Wheatley [facility] MAGNESIUM LEVEL 2022-03-23 04:50:00 Sergey Wheatley [facility] PROTHROMBIN TIME 2022-03-23 04:50:00 Sergey Wheatley [facility] APTT 2022-03-23 04:50:00 Sergey Wheatley [facility] Results CBC 2022-03-23 04:50:00 Sergey Wheatley [facility] MANUAL DIFFERENTIAL 2022-03-23 04:50:00 Sergey Wheatley [facility] GLUCOSE LEVEL 2022-03-23 04:50:00 Sergey Wheatley [facility] BLOOD UREA NITROGEN 2022-03-23 04:50:00 Sergey Wheatley [facility] ELECTROLYTE PANEL 2022-03-23 04:50:00 Sergey Wheatley [facility] SERUM CREATININE 2022-03-23 04:50:00 Sergey Wheatley [facility] .GLOMERULAR FILTRATION 2022-03-23 04:50:00 Sergey Wheatley [facility] CALCIUM LEVEL TOTAL 2022-03-23 04:50:00 Sergey Wheatley [facility] ALBUMIN LEVEL 2022-03-23 04:50:00 Sergey Wheatley [facility] ALKALINE PHOSPHATASE 2022-03-23 04:50:00 [facility]AN[facility] AMINOTRANSFERASE 2022-03-23 04:50:00 [facility] ASPARTATE AMINOTRANSFERASE 2022-03-23 04:50:00 Sergey Wheatley [facility] TOTAL PROTEIN 2022-03-23 04:50:00 Sergey Wheatley [facility] FRACTIONATED BILIRUBIN 2022-03-23 04:50:00 [facility] 2012-12-10 06:00:00 [place] Suazo [facility] Amanda-en-y gastric bypass 2012-12-10 06:00:00 [place] Suazo [facility] orial Dipesh Salpingo-oophorectomy [facility] Plan of Care Planned Activity Planned Date Details Comments Source Future Scheduled 2023-09-08 COVID-19 Vaccination [facility] [place] Test 12:31:36 () MD [facility] [code = COVID-19 Center Vaccination ()] Future Scheduled 2023-09-08 COVID-19 Vaccination [facility] [place] Test 12:31:36 () MD [facility] [code = COVID-19 Center Vaccination ()] Future Scheduled 2023-07-31 COVID-19 [facility]ACCINE (#[facility] Test 23:58:48 [code = COVID-19 VACCINE (#1)] Future Scheduled 2023-07-31 [facility] Test 23:58:48 malignant neoplasm of cervix (procedure) [code = 558135095] Future Scheduled 2023-07-31 [facility] Test 23:58:48 SCREENING [code = BREAST CANCER SCREENING] Future Scheduled 2023-07-31 [facility]ZA VACCINE [facility] Test 23:58:48 (#1) [code = INFLUENZA VACCINE (#1)] Future Scheduled 2023-07-31 [facility] Test 23:58:48 SCREENING [code = BREAST CANCER SCREENING] Future Scheduled 2023-07-31 [facility] Test 23:58:48 (#1) [code = INFLUENZA VACCINE (#1)] Future Scheduled 2023-07-31 [facility]:58:48 [code = COVID-19 VACCINE (#1)] Future Scheduled 2023-07-31 [facility] for [facility] Test 23:58:48 malignant neoplasm of cervix (procedure) [code = 105016331] Future Scheduled 2023-01-05 COVID-19 Vaccination Uni [facility] Test 19:05:25 (4 - Booster for MD Kalp[facility] Pfizer series) [code Center = COVID-19 Vaccination (4 - Booster for Pfizer series)] Future Scheduled 2022-09-27 [facility] Test 21:46:58 SCREENING [code = BREAST CANCER SCREENING] Future Scheduled 2022-09-27 [facility]INE [facility] Test 21:46:58 [code = INFLUENZA VACCINE] Future Scheduled 2022-09-27 COVID-19 [facility]ACCINE (#[facility] 21:46:58 [code = COVID-19 VACCINE (#1)] Future Scheduled 2022-09-27 [facility] Test 21:46:58 malignant neoplasm of cervix (procedure) [code = 501527350] Encounters Start End Encounter Admission Attending Care Care Encounter Source Date/Time Date/Time Type Type Clinicians Facility Department ID 2022-10-15 Outpatient SYSTEM, [facility] [id number] 12:52:18 PROVIDER Mauricio burrell 2022-07-29 Outpatient [facility] [id number] Memoria 08:27:54 [facility] 00 [facility] 2023-09-01 2023-09-[address] [facility], 1.2.840.1 [id number] Univers 11:30:00 23:59:00 Encounter Ewa 75914.1.1 it y of 3.412.2.7 [place] .3.421860 .8 [facility] 2023-09-01 2023-09-01 [facility] [place], 1.2.840.1 [id number] Univers 11:30:00 23:59:00 Encounter Ewa 28560.1.1 it y of 3.412.2.7 [place] .3.923333 MD [facility] 2023-09-01 2023-09-01 Office [place], 1.2.840.1 [id number] Univers 13:30:00 13:59:55 Visit Ewa 62582.1.1 ity of 3.412.2.7 [place] .3.057223 .8 [facility] 2023-09-01 2023-09-01 Office EL [place], 1.2.840.1 [id number] Univers 13:30:00 13:59:55 Visit Ewa 88284.1.1 ity of 3.412.2.7 [place] .3.055981 MD [facility] 2023-09-01 2023-09-01 Travel 1.2.840.1 1.2.084.302 1545 [id number] Univers 00:00:00 00:00:00 59200.1.1 350.1.13.41 ity of 3.412.2.[place].3.698 [place] .3.049657 084.8 MD [facility] 2023-09-01 2023-09-01 Travel 1.2.840.1 1.2.768.122 0596 [id number] Univers 00:00:00 00:00:00 19047.1.1 350.1.13.41 ity of 3.412.2.7 [place].3.698 [place] .3.404360 084.8 MD [facility] 2023-08-27 2023-08-27 Tiffany Eric, 1.2.840.1 [id number] Univers 00:00:00 00:00:00 Only Ewa 32847.1.1 ity of 3.412.2.7 [place] .3.121684 MD [facility] 2023-08-27 2023-08-27 Tiffany Eric, 1.2.840.1 [id number] Univers 00:00:00 00:00:00 Only Ewa 83159.1.1 ity of 3.412.2.7 [place] .3Angus066953 MD [facility] 2023-08-26 2023-08-26 Orders [place], 1.2.840.1 [id number] Univers 00:00:00 00:00:00 Only Ewa 77718.1.1 ity of 3.412.2.7 [place] .3Angus703073 MD [facility] 2023-08-26 2023-08-26 Orders [place], 1.2.840.1 [id number] Univers 00:00:00 00:00:00 Only Ewa 79309.1.1 ity of 3.412.2.7 [place] .3.370678 MD [facility] 2023-08-26 2023-08-26 Orders [place], 1.2.840.1 [id number] Univers 00:00:00 00:00:00 Only Ewa 31617.1.1 ity of 3.412.2.7 [place] .3Angus044958 MD [facility] 2023-08-26 2023-08-26 Orders [place], 1.2.840.1 [id number] Univers 00:00:00 00:00:00 Only Ewa 53069.1.1 ity of 3.412.2.7 [place] .3Angus280594 MD [facility] [place] 2023-07-25 2023-07-25 [facility], 1.2.840.1 [id number] Univers 13:30:00 23:59:00 Encounter Shama 83521.1.1 it y of [place] 3.412.2.7 [place] .3Angus958651 MD [facility] 2023-07-25 2023-07-25 [facility] [place] [facility], 1.2.840.1 [id number] Univers 13:30:00 23:59:00 Encounter Shama 87367.1.1 it y of [place] 3.412.2.7 [place] .3.369938 MD [facility] 2023-07-25 2023-07-25 Travel 1.2.840.1 1.2.843.758 6577 [id number] Univers 00:00:00 00:00:00 44621.1.1 350.1.13.41 ity of 3.412.2.7 [place]7.3.698 [place] .3.961030 084.8 MD [facility] 2023-07-25 2023-07-25 Travel 1.2.840.1 1.2.581.283 3665 [id number] Univers 00:00:00 00:00:00 41452.1.1 350.1.13.41 ity of 3.412.2.7 [place]7.3.698 [place] .3.713633 084.8 MD [facility] 2023-07-24 2023-07-24 Travel 1.2.840.1 1.2.688.781 5550 [id number] Univers 00:00:00 00:00:00 67755.1.1 350.1.13.41 ity of 3.412.2.7 [place]7.3.698 [place] .3.261426 084.8 MD [facility] 2023-07-24 2023-07-24 Travel 1.2.840.1 1.2.137.946 3320 [id number] Univers 00:00:00 00:00:00 72754.1.1 350.1.13.41 ity of 3.412.2.7 [place]7.3.698 [place] .3.355932 084.8 MD [facility] 2023-07-07 2023-07-07 Orders [place], 1.2.840.1 [id number] Univers 00:00:00 00:00:00 Only Nery 73403.1.1 ity of [place]anna 3.412.2.7 [place] .3.340324 MD [facility] 2023-07-07 2023-07-07 Orders [place], 1.2.840.1 [id number] Univers 00:00:00 00:00:00 Only Nery 69509.1.1 ity of [place] 3.412.2.7 [place] .3.991781 .8 [facility] 2023-07-04 2023-07-04 Ancillary [facility], 1.2.840.1 [id number] [id number] Univers 08:15:00 10:00:00 Procedure Ashley 95561.1.1 it y of 3.412.2.7 [place] .3.248736 MD [facility] 2023-07-04 2023-07-04 Ancillary EL [facility], 1.2.840.1 [id number] Univers 08:15:00 10:00:00 Procedure Ashley 42120.1.1 it y of 3.412.2.7 [place] .3.601539 MD [facility] 2023-06-17 2023-06-17 Outpatient GWEN XIE [facility] [id number] 13:47:35 13:47:35 [facility] 2023-06-12 2023-06-12 Telemedici [facility], 1.2.840.1 [id number] Univers 14:00:00 14:22:53 ne Ashley 61182.1.1 ity of 3.412.2.7 [place] .3.476244 MD [facility] 2023-06-12 2023-06-12 Telemedici EL [facility], 1.2.840.1 [id number] Univers 14:00:00 14:22:53 ne Ashley 81432.1.1 ity of 3.412.2.7 [place] .3.752016 MD [facility] 2023-06-10 2023-06-10 Orders [place]uni, 1.2.840.1 [id number] Univers 00:00:00 00:00:00 Only Ashley 75228.1.1 ity of 3.412.2.7 [place] .3.878075 MD [facility] 2023-06-10 2023-06-10 [facility] [place], 1.2.840.1 [id number] Univers 00:00:00 00:00:00 Only Ashley 15895.1.1 ity of 3.412.2.7 [place] .3.590491 MD [facility] 2023-06-03 2023-06-03 [facility] 1.2.840.1 [id number] 1 [id number] Univers 09:11:00 23:59:00 Encounter gladys 03447.1.1 it y of Ashia F 3.412.2.7 [place] .3.443234 MD [facility] 2023-06-03 2023-06-03 [facility]1 [id number] 1 [id number] Univers 09:11:00 23:59:00 Encounter gladys 60687.1.1 it y of Ashia F 3.412.2.7 [place] .3.932454 MD [facility] 2023-06-02 2023-06-02 Outpatient GWEN XIE MDA [facility] [id number] 14:11:30 14:11:30 [facility] 2023-05-30 2023-05-30 [facility] Ashley Lowry 1.2.840.1 [id number] Univers 10:18:34 23:59:00 [place] 71134.1.1 ity of 3.412.2.7 [place] .3.826028 MD [facility] 2023-05-30 2023-05-30 [facility] Ashley Bravo 1.2.840.1 [id number] Univers 10:18:34 23:59:00 [place] 21457.1.1 ity of 3.412.2.7 [place] .3.865478 MD [facility] [place] 2023-05-30 2023-05-30 Outpatient LUCIANO LOWRY MDA MDA [id number] 10:18:34 23:59:00 ASHLEY 430756 [facility] 2023-05-30 2023-05-30 Office [place], 1.2.840.1 [id number] Univers 14:30:00 14:30:00 Visit Ewa 95087.1.1 ity of 3.412.2.7 [place] .3.717072 .8 [facility] 2023-05-30 2023-05-30 Office [place], 1.2.840.1 [id number] Univers 14:30:00 14:30:00 Visit Ewa 99383.1.1 ity of 3.412.2.7 [place] .3.333897 MD [facility] 2023-05-30 2023-05-30 [facility] [place], 1.2.840.1 [id number] Univers 09:52:03 10:17:00 Encounter Ewa 67957.1.1 it y of 3.412.2.7 [place] .3.507271 MD [facility] 2023-05-30 2023-05-30 [facility] [place], 1.2.840.1 [id number] Univers 09:52:03 10:17:00 Encounter Ewa 04489.1.1 it y of 3.412.2.7 [place] .3.480994 MD [facility] 2023-05-30 2023-05-30 [facility] Jarrod, 1.2.840.1 [id number] Univers 09:45:00 09:51:00 Encounter Ashley 98833.1.1 it y of 3.412.2.7 [place] .3Angus625437 MD [facility] 2023-05-30 2023-05-30 [facility] Jarrod, 1.2.840.1 [id number] Univers 09:45:00 09:51:00 Encounter Ashley 85234.1.1 it y of 3.412.2.7 [place] .3Angus962521 MD [facility] 2023-05-30 2023-05-30 [facility] KalaGins 1.2.840.1 [id number] 1 [id number] Univers 09:11:00 09:44:00 Encounter gladys 19238.1.1 it y of Ashia F 3.412.2.7 [place] .3.078662 MD [facility] 2023-05-30 2023-05-30 [facility] Winifred 1.2.840.1 [id number] 1 [id number] Univers 09:11:00 09:44:00 Encounter gladys 07430.1.1 it y of Ashia F 3.412.2.7 [place] .3.147286 MD [facility] 2023-05-30 2023-05-30 Travel 1.2.840.1 1.2.839.293 0832 [id number] Univers 00:00:00 00:00:00 08074.1.1 350.1.13.41 ity of 3.412.2.7 [place]7.3.698 [place] .3.159345 084.8 MD [facility] 2023-05-30 2023-05-30 Travel 1.2.840.1 1.2.254.628 8129 [id number] Univers 00:00:00 00:00:00 70712.1.1 350.1.13.41 ity of 3.412.2.7 [place].7.3.698 [place] .3.818670 084.8 .8 [facility] 2023-05-28 2023-05-28 Outpatient GWEN XIE MDA MDA [id number] 10:15:06 10:15:06 Mauriciorosmery burrell 2023-05-21 2023-05-21 Outpatient GWEN XIE MDA MDA [id number] 12:04:08 12:04:08 Mauricio o ashanti 2023-05-20 2023-05-20 Office Essence, 1.2.840.1 [id number] Univers 14:00:00 15:39:08 Visit Ashley 27282.1.1 ity of 3.412.2.7 [place] .3.980149 MD [facility] 2023-05-20 2023-05-20 Office LUCIANO Lowry, 1.2.840.1 [id number] Univers 14:00:00 15:39:08 Visit Ashley 67325.1.1 ity of 3.412.2.7 [place] .3.059134 MD [facility] 2023-05-20 2023-05-20 Travel 1.2.840.1 1.2.027.154 2092 [id number] Univers 00:00:00 00:00:00 75702.1.1 350.1.13.41 ity of 3.412.2.7 [place]7.3.698 [place] .3.801294 084.8 MD [facility] 2023-05-20 2023-05-20 Travel 1.2.840.1 1.2.621.654 9505 [id number] Univers 00:00:00 00:00:00 29053.1.1 350.1.13.41 ity of 3.412.2.7 [place].7.3.698 [place] .3.795601 084.8 MD [facility] 2023-05-15 2023-05-15 Outpatient GWEN XIE MDA MDA [id number] 14:44:59 14:44:59 Mauricio burrell 2023-05-05 2023-05-05 Outpatient LUCIANO WALLACEGWEN MDA MDA [id number] 17:06:54 17:06:54 Mauricio burrell 2023-04-28 2023-04-28 Outpatient GWEN XIE MDA MDA [id number] 10:23:08 10:23:08 Mauricio burrell 2023-04-24 2023-04-24 Outpatient GWEN XIE MDA MDA [id number] 10:31:38 10:31:38 Mauricio burrell 2023-04-21 2023-04-21 Outpatient LUCIANO BRUCE MDA MDA [id number] 11:31:17 11:31:17 LUIS ALFREDO Mauricio burrell 2023-04-21 2023-04-21 Outpatient GWEN XIE [facility] MDA [id number] 11:20:33 11:31:01 [facility] 2023-04-19 2023-04-19 [facility] Ewa Eric 1.2.840.1 [id number] Univers 13:32:34 23:59:00 Encounter Vianney Alcocer A 05153.1.1 ity of 3.412.2.7 [place] .3.088738 MD [facility] 2023-04-19 2023-04-19 [facility] Ewa Thornton 1.2.840.1 [id number] Univers 13:32:34 23:59:00 Encounter Vianney Alcocer A 46377.1.1 ity of 3.412.2.7 [place] .3.260403 MD [facility] 2023-04-19 2023-04-19 Travel 1.2.840.1 1.2.772.318 5687 [id number] Univers 00:00:00 00:00:00 88563.1.1 350.1.13.41 ity of 3.412.2.7 [place]7.3.698 [place] .3.801127 084.8 MD [facility] 2023-04-19 2023-04-19 Travel 1.2.840.1 1.2.584.620 5716 [id number] Univers 00:00:00 00:00:00 01524.1.1 350.1.13.41 ity of 3.412.2.7 [place].7.3.698 [place] .3.129723 084.8 MD [facility] 2023-04-12 2023-04-12 [facility] Ewa Eric 1.2.840.1 [id number] Univers 14:00:00 23:59:00 Encounter Rula Otoole A 29601.1.1 ity of 3.412.2.7 [place] .3.755831 MD [facility] 2023-04-12 2023-04-12 [facility] Ewa Thornton 1.2.840.1 [id number] Univers 14:00:00 23:59:00 Encounter Marcy Otoolea Roland 08777.1.1 ity of 3.412.2.7 [place] .3.135747 MD [facility] 2023-04-12 2023-04-12 Travel 1.2.840.1 1.2.929.969 1062 [id number] Univers 00:00:00 00:00:00 76608.1.1 350.1.13.41 ity of 3.412.2.7 [place].7.3.698 [place] .3.530836 084.8 MD [facility] 2023-04-12 2023-04-12 Travel 1.2.840.1 1.2.901.968 0597 [id number] Univers 00:00:00 00:00:00 33699.1.1 350.1.13.41 ity of 3.412.2.7 2.2.7.3.698 [place] .3.161891 084.8 MD [facility] 2023-04-09 2023-04-09 Outpatient LUCIANO GAONA MDA [facility] [id number] 10:53:30 11:02:12 CHANNING Boss [facility] 2023-04-05 2023-04-05 [facility] Ewa Eric 1.2.840.1 [id number] Univers 13:15:00 23:59:00 Encounter Lisa Krueger 57194.1.1 ity of 3.412.2.7 [place] .3.417474 MD [facility] 2023-04-05 2023-04-05 [facility] Ewa Thornton 1.2.840.1 [id number] Univers 13:15:00 23:59:00 Encounter Lisa Krueger 55034.1.1 ity of 3.412.2.7 [place] .3.573249 MD [facility] 2023-04-05 2023-04-05 Travel 1.2.840.1 1.2.172.078 0594 [id number] Univers 00:00:00 00:00:00 27732.1.1 350.1.13.41 ity of 3.412.2.7 2.2.7.3.698 [place] .3.726709 084.8 MD [facility] 2023-04-05 2023-04-05 Travel 1.2.840.1 1.2.355.143 5850 [id number] Univers 00:00:00 00:00:00 55834.1.1 350.1.13.41 ity of 3.412.2.7 2.2.7.3.698 [place] .3.866866 084.8 MD [facility] 2023-03-22 2023-03-22 [facility] Ewa Eric 1.2.840.1 [id number] Univers 12:11:10 23:59:00 Encounter Maren Sorenson 28811.1.1 ity of 3.412.2.7 [place] .3.992713 MD [facility] 2023-03-22 2023-03-22 [facility] Ewa Thornton 1.2.840.1 [id number] Univers 12:11:10 23:59:00 Encounter Maren Sorenson 33521.1.1 ity of 3.412.2.7 [place] .3.623885 MD [facility] 2023-03-22 2023-03-22 Travel 1.2.840.1 1.2.997.273 1195 [id number] Univers 00:00:00 00:00:00 18649.1.1 350.1.13.41 ity of 3.412.2.7 2.2.7.3.698 [place] .3.362326 084.8 MD [facility] 2023-03-22 2023-03-22 Travel 1.2.840.1 1.2.124.158 0394 [id number] Univers 00:00:00 00:00:00 72354.1.1 350.1.13.41 ity of 3.412.2.7 2.2.7.3.698 [place] .3.902200 084.8 MD [facility] 2023-03-18 2023-03-18 [facility], 1.2.840.1 [id number] Univers 10:06:17 23:59:00 Encounter Ashley 02181.1.1 it y of 3.412.2.7 [place] .3.614155 MD [facility] 2023-03-18 2023-03-18 [facility] Jarrod, 1.2.840.1 [id number] Univers 10:06:17 23:59:00 Encounter Ashley 41824.1.1 it y of 3.412.2.7 [place] .3.499903 MD [facility] 2023-03-18 2023-03-18 Office [place], 1.2.840.1 [id number] Univers 12:30:00 13:28:49 Visit Ewa 62561.1.1 ity of 3.412.2.7 [place] .3.298504 MD [facility] 2023-03-18 2023-03-18 Office LUCIANO Eric, 1.2.840.1 [id number] Univers 12:30:00 13:28:49 Visit Ewa 95352.1.1 ity of 3.412.2.7 [place] .3.056307 MD [facility] 2023-03-18 2023-03-18 Travel 1.2.840.1 1.2.647.973 2146 [id number] Univers 00:00:00 00:00:00 91655.1.1 350.1.13.41 ity of 3.412.2.7 2.2.7.3.698 [place] .3.708498 084.8 MD [facility] 2023-03-18 2023-03-18 Travel 1.2.840.1 1.2.563.959 4854 [id number] Univers 00:00:00 00:00:00 23118.1.1 350.1.13.41 ity of 3.412.2.7 2.2.7.3.698 [place] .3.755347 084.8 MD [facility] 2023-03-06 2023-03-06 Tiffany [place], 1.2.840.1 [id number] Univers 00:00:00 00:00:00 Only Ewa 49473.1.1 ity of 3.412.2.7 [place] .3.937621 MD [facility] 2023-03-06 2023-03-06 Tiffany [place], 1.2.840.1 [id number] Univers 00:00:00 00:00:00 Only Ewa 60821.1.1 ity of 3.412.2.7 [place] .3.236197 MD [facility] 2023-02-13 2023-02-13 Telemedici [facility], 1.2.840.1 [id number] Univers 13:30:00 14:03:29 ne Ashley 82028.1.1 ity of 3.412.2.7 [place] .3.377357 MD [facility] 2023-02-13 2023-02-13 Telemedici EL [facility]uni, 1.2.840.1 [id number] Univers 13:30:00 14:03:29 ne Ashley 27076.1.1 ity of 3.412.2.7 [place] .3.268136 MD [facility] 2023-01-27 2023-01-27 Orders Buni, 1.2.840.1 [id number] Univers 00:00:00 00:00:00 Only Ashley 36883.1.1 ity of 3.412.2.7 [place] .3.480399 MD [facility] 2023-01-27 2023-01-27 Orders Buni, 1.2.840.1 [id number] Univers 00:00:00 00:00:00 Only Ashley 44920.1.1 ity of 3.412.2.7 [place] .3Angus205400 MD [facility] [place] 2023-01-14 2023-01-14 [facility], 1.2.840.1 [id number] Univers 12:19:39 23:59:00 Encounter Ashley 53696.1.1 it y of 3.412.2.7 [place] .3Angus774648 .8 [facility] [place] 2023-01-14 2023-01-14 [facility], 1.2.840.1 [id number] Univers 12:19:39 23:59:00 Encounter Ashley 61764.1.1 it y of 3.412.2.7 [place] .3Angus549435 MD [facility] 2023-01-14 2023-01-14 [facility] [place], 1.2.840.1 [id number] Univers 09:57:50 12:18:00 Encounter Ewa 08542.1.1 it y of 3.412.2.7 [place] .3Angus205802 .8 [facility] 2023-01-14 2023-01-14 [facility] [place], 1.2.840.1 [id number] Univers 09:57:50 12:18:00 Encounter Ewa 17149.1.1 it y of 3.412.2.7 [place] .3Angus216325 MD [facility] [place] 2023-01-14 2023-01-14 Office [place], 1.2.840.1 [id number] Univers 11:30:00 12:12:00 Visit Ewa 23966.1.1 ity of 3.412.2.7 [place] .3Angus543382 MD [facility] [place] 2023-01-14 2023-01-14 Office [place], 1.2.840.1 [id number] Univers 11:30:00 12:12:00 Visit Ewa 33398.1.1 ity of 3.412.2.7 [place] .3Angus514347 MD [facility] 2023-01-14 2023-01-14 Consult Buni, 1.2.840.1 [id number] Univers 10:30:00 11:35:12 Ashley 22486.1.1 ity of 3.412.2.7 [place] .3.424845 MD [facility] 2023-01-14 2023-01-14 Consult EL [place], 1.2.840.1 [id number] Univers 10:30:00 11:35:12 Ashley 31380.1.1 ity of 3.412.2.7 [place] .3.175858 MD [facility] 2023-01-14 2023-01-14 Travel 1.2.840.1 1.2.730.717 2929 [id number] Univers 00:00:00 00:00:00 90098.1.1 350.1.13.41 ity of 3.412.2.7 [place].3.698 [place] .3.432171 084.8 MD [facility] 2023-01-14 2023-01-14 Travel 1.2.840.1 1.2.378.792 8944 [id number] Univers 00:00:00 00:00:00 59410.1.1 350.1.13.41 ity of 3.412.2.7 [place]7.3.698 [place] .3.589122 084.8 .[facility] 2023-01-11 2023-01-11 [facility] [place] Eric 1.2.840.1 [id number] Univers 10:00:00 23:59:00 Encounter Alisia Wheeler 14371.1.1 ity of 3.412.2.7 [place] .3.249356 MD [facility] 2023-01-11 2023-01-11 [facility] E[place] Eric 1.2.840.1 [id number] Univers 10:00:00 23:59:00 Encounter Alisia Wheeler 82146.1.1 ity of 3.412.2.7 [place] .3.338871 MD [facility] 2023-01-11 2023-01-11 Travel 1.2.840.1 1.2.067.158 5076 [id number] Univers 00:00:00 00:00:00 36428.1.1 350.1.13.41 ity of 3.412.2.7 2.[place]7.3.698 [place] .3.572047 08Sekou.8 MD [facility] 2023-01-11 2023-01-11 Travel 1.2.840.1 1.2.900.177 7079 [id number] Univers 00:00:00 00:00:00 22599.1.1 350.1.13.41 ity of 3.412.2.7 2.[place]7.3.698 [place] .3.600512 08Sekou.Sherry [facility] 2023-01-04 2023-01-04 [facility] Ewa Eric 1.2.840.1 [id number] Univers 08:05:22 23:59:00 Encounter Sydnie, Rula A 50800.1.1 ity of 3.412.2.7 [place] .3.651228 MD [facility] 2023-01-04 2023-01-04 [facility] Ewa Eric 1.2.840.1 [id number] Univers 08:05:22 23:59:00 Encounter Sydnie, Rula A 65934.1.1 ity of 3.412.2.7 [place] .3.126039 MD [facility] 2023-01-04 2023-01-04 Travel 1.2.840.1 1.2.695.228 7246 [id number] Univers 00:00:00 00:00:00 75147.1.1 350.1.13.41 ity of 3.412.2.7 2.[place]7.3.698 [place] .3.591248 Venkat [facility] 2023-01-04 2023-01-04 Travel 1.2.840.1 1.2.470.893 5996 [id number] Univers 00:00:00 00:00:00 77088.1.1 350.1.13.41 ity of 3.412.2.7 2.2[place]7.3.698 [place] .3.252271 084.8 MD [facility] 2022-12-28 2022-12-28 [facility] Ewa Eric 1.2.840.1 [id number] Univers 14:00:00 23:59:00 Encounter Afla Barragan 73818.1.1 ity of 3.412.2.7 [place] .3.013789 MD [facility] 2022-12-28 2022-12-28 [facility] Ewa Eric 1.2.840.1 [id number] Univers 14:00:00 23:59:00 Encounter Alfa Barragan 91346.1.1 ity of 3.412.2.7 [place] .3.396749 MD [facility] 2022-12-28 2022-12-28 Travel 1.2.840.1 1.2.340.835 8588 [id number] Univers 00:00:00 00:00:00 81949.1.1 350.1.13.41 ity of 3.412.2.7 2.2[place]7.3.698 [place] .3.225894 084.8 MD [facility] 2022-12-28 2022-12-28 Travel 1.2.840.1 1.2.610.255 2797 [id number] Univers 00:00:00 00:00:00 33121.1.1 350.1.13.41 ity of 3.412.2.7 2.[place]7.3.698 [place] .3.112969 084.8 MD [facility] 2022-12-10 2022-12-10 [facility] [place] 1.2.840.1 [id number] Univers 00:00:00 00:00:00 Only Ewa 50642.1.1 ity of 3.412.2.7 [place] .3Angus990530 MD [facility] 2022-12-10 2022-12-10 Tiffany Eric, 1.2.840.1 [id number] Univers 00:00:00 00:00:00 Only Ewa 83324.1.1 ity of 3.412.2.7 [place] .3.586715 MD [facility] 2022-12-10 2022-12-10 [facility] [place], 1.2.840.1 [id number] Univers 00:00:00 00:00:00 Only Ewa 18081.1.1 ity of 3.412.2.7 [place] .3.991357 MD [facility] 2022-12-10 2022-12-10 [facility] [place], 1.2.840.1 [id number] Univers 00:00:00 00:00:00 Only Ewa 55273.1.1 ity of 3.412.2.7 [place] .3.369183 MD [facility] 2022-11-30 2022-11-30 [facility] Ewa Eric 1.2.840.1 [id number] Univers 10:15:00 23:59:00 Encounter Ten Burr 31128.1.1 ity of 3.412.2.7 [place] .3.321443 MD [facility] 2022-11-30 2022-11-30 [facility] Ewa Eric 1.2.840.1 [id number] Univers 10:15:00 23:59:00 Encounter [place] Burr 19891.1.1 ity of 3.412.2.7 [place] .3.443028 MD [facility] 2022-11-30 2022-11-30 Travel 1.2.840.1 1.2.190.242 1216 [id number] Univers 00:00:00 00:00:00 07434.1.1 350.1.13.41 ity of 3.412.2.7 [place].3.698 [place] .[place].36[place] 084.8 .[facility] 2022-11-30 2022-11-30 Travel 1.2.840.1 1.2.651.101 6171 [id number] Univers 00:00:00 00:00:00 43319.1.1 350.1.13.41 ity of 3.412.2.[place].3.698 [place] .3.465[place] 084.8 .8 [facility] 2022-11-29 2022-11-29 [facility] [place], 1.2.840.1 [id number] Univers 11:37:56 23:59:00 Encounter Ewa 08337.1.1 it y of 3.412.2.7 [place] .3.324043 MD [facility] 2022-11-29 2022-11-29 Hospital [place], 1.2.840.1 [id number] Univers 11:37:56 23:59:00 Encounter Ewa 32857.1.1 it y of 3.412.2.7 [place] .3.356483 MD [facility] 2022-11-29 2022-11-29 Office [place], 1.2.840.1 [id number] Univers 14:00:00 14:39:45 Visit Ewa 80090.1.1 ity of 3.412.2.7 [place] .3.459537 MD [facility] 2022-11-29 2022-11-29 Office [place], 1.2.840.1 [id number] Univers 14:00:00 14:39:45 Visit Ewa 70295.1.1 ity of 3.412.2.7 [place] .3.772242 MD [facility] 2022-11-29 2022-11-29 [facility] [place], 1.2.840.1 [id number] Univers 00:00:00 00:00:00 Only Ewa 27368.1.1 ity of 3.412.2.7 [place] .3.045801 MD [facility] 2022-11-29 2022-11-29 Travel 1.2.840.1 1.2.530.154 6214 [id number] Univers 00:00:00 00:00:00 95290.1.1 350.1.13.41 ity of 3.412.2.7 [place].3.698 [place]3.9005[place] 084.8 MD [facility] 2022-11-29 2022-11-29 Tiffany Eric, 1.2.840.1 [id number] Univers 00:00:00 00:00:00 Only Ewa 12246.1.1 ity of 3.412.2.7 [place] .3.496839 MD [facility] 2022-11-29 2022-11-29 Travel 1.2.840.1 1.2.306.229 9231 [id number] Univers 00:00:00 00:00:00 75254.1.1 350.1.13.41 ity of 3.412.2.7 [place].3.698 [place]3.8525[place] 084.8 MD [facility] 2022-11-08 2022-11-08 [facility], 1.2.840.1 [id number] Univers 11:59:00 16:45:00 Encounter Diggs 74460.1.1 i ty of Ali 3.412.2.7 [place] .3.952847 MD [facility] 2022-11-08 2022-11-08 [facility], 1.2.840.1 [id number] Univers 11:59:00 16:45:00 Encounter Diggs 65719.1.1 i ty of Ali 3.412.2.7 [place] .3.923613 MD [facility] 2022-11-08 2022-11-08 Anesthesia Becca Flores 1.2.840.1 [id number] Univers 14:18:00 15:19:00 Event 77526.1.1 ity of 3.412.2.7 [place] .3.530706 MD [facility] 2022-11-08 2022-11-08 Anesthesia Becca Flores 1.2.840.1 [id number] Univers 14:18:00 15:19:00 Event 75732.1.1 ity of 3.412.2.7 [place] .3.653644 MD [facility] 2022-11-08 2022-11-08 Surgery Sim, 1.2.840.1 [id number] Univers 13:40:00 14:50:00 Diggs 64902.1.1 ity of Ali 3.412.2.7 [place] .3.543533 MD [facility] 2022-11-08 2022-11-08 Surgery Sim, 1.2.840.1 [id number] Univers 13:40:00 14:50:00 Diggs 96109.1.1 ity of Ali 3.412.2.7 [place] .3.101767 MD [facility] 2022-11-08 2022-11-08 Travel 1.2.840.1 1.2.361.002 3576 [id number] Univers 00:00:00 00:00:00 84568.1.1 350.1.13.41 ity of 3.412.2.7 [place]7.3.698 [place]3.015764 084.8 MD [facility] 2022-11-08 2022-11-08 Travel 1.2.840.1 1.2.792.402 7182 [id number] Univers 00:00:00 00:00:00 77308.1.1 350.1.13.41 ity of 3.412.2.7 [place]7.3.698 [place] .3.833505 084.8 MD [facility] 2022-11-07 2022-11-07 POEM 1.2.840.1 [id number] Univers 15:30:00 16:00:00 Appointmen 70081.1.1 i ty of ts 3.412.2.7 [place] .3.457217 MD [facility] 2022-11-07 2022-11-07 POEM EL 1.2.840.1 [id number] Univers 15:30:00 16:00:00 Appointmen 67161.1.1 i ty of ts 3.412.2.7 [place] .3.144066 MD [facility] 2022-11-06 2022-11-06 Anesthesia Gaona, 1.2.840.1 [id number] [id number] Univers 23:59:59 23:59:59 Event Michelle C 76978.1.1 ity of 3.412.2.7 [place] .3.746313 MD [facility] 2022-11-06 2022-11-06 Anesthesia [place], 1.2.840.1 [id number] Univers 23:59:59 23:59:59 Event Michelle C 75080.1.1 ity of 3.412.2.7 [place] .3.612401 MD [facility] 2022-11-04 2022-11-04 Cadence Gutierrez, 1.2.840.1 [id number] Univers 00:00:00 00:00:00 Alia 33658.1.1 ity of 3.412.2.7 [place] .3.209788 MD [facility] 2022-11-04 2022-11-04 Cadence Gutierrez, 1.2.840.1 [id number] Univers 00:00:00 00:00:00 Alia 92979.1.1 ity of 3.412.2.7 [place] .3.005218 MD [facility] 2022-10-23 2022-10-[address] [facility], 1.2.840.1 [id number] Univers 09:30:00 23:59:00 Encounter Ewa 69302.1.1 it y of 3.412.2.7 [place] .3Angus744860 MD [facility] 2022-10-23 2022-10-23 Hospital LUCIANO Eric, 1.2.840.1 [id number] Univers 09:30:00 23:59:00 Encounter Ewa 37859.1.1 it y of 3.412.2.7 [place] .3Angus771922 MD [facility] 2022-10-23 2022-10-23 Ancillary [place], 1.2.840.1 [id number] Univers 10:30:00 11:30:00 Procedure Ewa 35045.1.1 it y of 3.412.2.7 [place] .3.098677 MD [facility] 2022-10-23 2022-10-23 Ancillary LUCIANO Eric, 1.2.840.1 [id number] Univers 10:30:00 11:30:00 Procedure Ewa 36320.1.1 it y of 3.412.2.7 [place] .3.732420 MD [facility] 2022-10-23 2022-10-23 Documentat [place], 1.2.840.1 [id number] Univers 00:00:00 00:00:00 ion Ewa 18112.1.1 ity of 3.412.2.7 [place] .3.028395 MD [facility] 2022-10-23 2022-10-23 Orders [place], 1.2.840.1 [id number] Univers 00:00:00 00:00:00 Only Ewa 77959.1.1 ity of 3.412.2.7 [place] .3Angus361939 MD [facility] 2022-10-23 2022-10-23 Travel 1.2.840.1 1.2.336.726 [id number] [id number] Univers 00:00:00 00:00:00 00067.1.1 350.1.13.41 ity of 3.412.2.7 [place].3.698 [place] .3.138150 084.8 [facility] 2022-10-23 2022-10-23 Documentat [place], 1.2.840.1 [id number] Univers 00:00:00 00:00:00 ion Ewa 75791.1.1 ity of 3.412.2.7 [place] .3.901278 MD [facility] 2022-10-23 2022-10-23 Tiffany Eric, 1.2.840.1 [id number] Univers 00:00:00 00:00:00 Only Ewa 20792.1.1 ity of 3.412.2.7 [place] .3.107244 MD [facility] 2022-10-23 2022-10-23 Travel 1.2.840.1 1.2.610.489 0442 [id number] Univers 00:00:00 00:00:00 81491.1.1 350.1.13.41 ity of 3.412.2.7 [place]7.3.698 [place] .3.926277 084.8 MD [facility] 2022-10-22 2022-10-22 Documentat [place], 1.2.840.1 [id number] Univers 00:00:00 00:00:00 ion Ewa 45437.1.1 ity of 3.412.2.7 [place] .3.167490 MD [facility] 2022-10-22 2022-10-22 Tiffany Eric, 1.2.840.1 [id number] Univers 00:00:00 00:00:00 Only Ewa 26266.1.1 ity of 3.412.2.7 [place] .3.126048 MD [facility] 2022-10-22 2022-10-22 Tiffany Eric, 1.2.840.1 [id number] Univers 00:00:00 00:00:00 Only Ewa 87281.1.1 ity of 3.412.2.7 [place] .3.702469 MD [facility] 2022-10-22 2022-10-22 Tiffany Erci, 1.2.840.1 [id number] Univers 00:00:00 00:00:00 Only Ewa 75861.1.1 ity of 3.412.2.7 [place] .3.597918 MD [facility] 2022-10-22 2022-10-22 Documentat [place], 1.2.840.1 [id number] Univers 00:00:00 00:00:00 ion Ewa 39629.1.1 ity of 3.412.2.7 [place] .3.410354 MD [facility] 2022-10-22 2022-10-22 Tiffany Eric, 1.2.840.1 [id number] Univers 00:00:00 00:00:00 Only Ewa 12191.1.1 ity of 3.412.2.7 [place] .3.354015 MD [facility] 2022-10-22 2022-10-22 Orders [place], 1.2.840.1 [id number] Univers 00:00:00 00:00:00 Only Ewa 03088.1.1 ity of 3.412.2.7 [place] .3.815710 MD [facility] 2022-10-22 2022-10-22 Tiffany Eric 1.2.840.1 [id number] 1658 Univers 00:00:00 00:00:00 Only Ewa 13474.1.1 ity of 3.412.2.7 [place] .3.822560 MD [facility] 2022-10-19 2022-10-19 [facility] Ewa Eric 1.2.840.1 [id number] Univers 09:28:29 23:59:00 Encounter Sarah Aiken 45125.1.1 ity of 3.412.2.7 [place] .3Angus000552 MD [facility] 2022-10-19 2022-10-19 [facility] Ewa Thornton 1.2.840.1 [id number] Univers 09:28:29 23:59:00 Encounter Nelli Sarah M 83194.1.1 ity of 3.412.2.7 [place] .3.702836 MD [facility] 2022-10-19 2022-10-19 Travel 1.2.840.1 1.2.431.333 1677 [id number] Univers 00:00:00 00:00:00 36698.1.1 350.1.13.41 ity of 3.412.2.7 [place]7.3.698 [place] .3.481249 084.8 MD [facility] 2022-10-19 2022-10-19 Travel 1.2.840.1 1.2.051.622 6478 [id number] Univers 00:00:00 00:00:00 55592.1.1 350.1.13.41 ity of 3.412.2.7 [place]7.3.698 [place] .3.216105 084.Sherry [facility] 2022-10-10 2022-10-10 Prep for Olayinka, 1.2.840.1 [id number] [id number] Univers 00:00:00 00:00:00 Surgery Renea 03383.1.1 ity of 3.412.2.7 [place] .3.690290 MD [facility] 2022-10-10 2022-10-10 Tiffany Eric, 1.2.840.1 [id number] Univers 00:00:00 00:00:00 Only Ewa 75895.1.1 ity of 3.412.2.7 [place] .3.512770 MD [facility] 2022-10-10 2022-10-10 Tiffany Eric, 1.2.840.1 [id number] Univers 00:00:00 00:00:00 Only Ewa 69642.1.1 ity of 3.412.2.7 [place] .3.624964 MD [facility] 2022-10-10 2022-10-10 Prep for Olayinka, 1.2.840.1 [id number] 07535 Univers 00:00:00 00:00:00 Surgery Renea 61588.1.1 ity of 3.412.2.7 [place] .3.410330 MD [facility] 2022-10-10 2022-10-10 Tiffany Eric, 1.2.840.1 [id number] Univers 00:00:00 00:00:00 Only Ewa 44277.1.1 ity of 3.412.2.7 [place] .3.380470 MD [facility] 2022-10-10 2022-10-10 Tiffany Eric, 1.2.840.1 [id number] Univers 00:00:00 00:00:00 Only Ewa 57549.1.1 ity of 3.412.2.7 [place] .3.370098 MD [facility] 2022-10-09 2022-10-09 Documentat [place], 1.2.840.1 [id number] Univers 00:00:00 00:00:00 ion Ewa 02575.1.1 ity of 3.412.2.7 [place] .3.700042 MD [facility] 2022-10-09 2022-10-09 Tiffany Eric, 1.2.840.1 [id number] 2163 Univers 00:00:00 00:00:00 Only Ewa 85094.1.1 ity of 3.412.2.7 [place] .3.963475 MD [facility] 2022-10-09 2022-10-09 Documentat [place], 1.2.840.1 [id number] Univers 00:00:00 00:00:00 ion Ewa 89778.1.1 ity of 3.412.2.7 [place] .3.575314 MD [facility] 2022-10-09 2022-10-09 Tiffany Eric, 1.2.840.1 [id number] 3895 Univers 00:00:00 00:00:00 Only Ewa 66645.1.1 ity of 3.412.2.7 [place] .3Angus633630 MD [facility] 2022-10-04 2022-10-04 [facility] [place], 1.2.840.1 [id number] Univers 09:45:00 23:59:00 Encounter Ewa 90790.1.1 it y of 3.412.2.7 [place] .3Angus385438 MD [facility] 2022-10-04 2022-10-04 [facility] [place], 1.2.840.1 [id number] Univers 09:45:00 23:59:00 Encounter Ewa 64521.1.1 it y of 3.412.2.7 [place] .3Angus865613 MD [facility] 2022-10-02 2022-10-02 [facility] [place], 1.2.840.1 [id number] Univers 14:00:00 14:00:00 ne Ewa 01726.1.1 ity of 3.412.2.7 [place] .3Angus555040 MD [facility] 2022-10-02 2022-10-02 [facility] LUCIANO Eric, 1.2.840.1 [id number] Univers 14:00:00 14:00:00 ne Ewa 79169.1.1 ity of 3.412.2.7 [place] .3Angus827792 MD [facility] 2022-10-02 2022-10-02 [facility] [place], 1.2.840.1 [id number] Univers 00:00:00 00:00:00 Only Ewa 16065.1.1 ity of 3.412.2.7 [place] .3Angus984604 MD [facility] 2022-10-02 2022-10-02 [facility] [place], 1.2.840.1 [id number] Univers 00:00:00 00:00:00 Only Ewa 73952.1.1 ity of 3.412.2.7 [place] .3.990037 MD [facility] [place] 2022-08-23 2022-08-23 Hospital LUCIANO Allison Pepe 1.2.840.1 [id number] Univers 14:45:00 23:59:00 Encounter Natalyahaleyjuan miguel Lee R 84508.1.1 ity of 3.412.2.7 [place] .3.605565 MD [facility] 2022-08-23 2022-08-23 Hospital LUCIANO Pepe, 1.2.840.1 [id number] Univers 14:00:00 14:44:00 Encounter Allison Bullock 08507.1.1 ity of 3.412.2.7 [place] .3.758720 MD [facility] 2022-08-23 2022-08-23 Travel 1.2.840.1 1.2.059.396 6245 [id number] Univers 00:00:00 00:00:00 80699.1.1 350.1.13.41 ity of 3.412.2.7 [place].3.698 [place] .3.650481 084.8 MD [facility] 2022-07-29 2022-07-29 [facility], 1.2.840.1 [id number] Univers 08:00:00 23:59:00 Encounter Ignacio 70761.1.1 it y of 3.412.2.7 [place] .3.908470 MD [facility] 2022-07-29 2022-07-29 [facility], 1.2.840.1 [id number] Univers 09:45:00 11:00:59 Visit Ignacio 22318.1.1 ity of 3.412.2.7 [place] .3.244834 MD [facility] 2022-07-29 2022-07-29 Travel 1.2.840.1 1.2.187.000 5780 [id number] Univers 00:00:00 00:00:00 97109.1.1 350.1.13.41 ity of 3.412.2.7 [place]7.3.698 [place] .3.041856 084.8 MD [facility] 2022-05-23 2022-05-23 Telephone [facility] 1.2.840.1 [id number] Univers 00:00:00 00:00:00 85915.1.1 ity of 3.412.2.7 [place] .3.655784 MD [facility] 2022-05-08 2022-05-08 Emergency ER Nikolay Alvarenga 1.2.840.1 [id number] Univers 03:27:00 12:03:00 Nikko Garcia 67389.1.1 ity of 3.412.2.7 [place] .3.321286 MD [facility] 2022-05-08 2022-05-08 Emergency TREVER [facility] [id number] 09:22:14 09:49:09 NIKKO burrell 2022-05-08 2022-05-08 Travel 1.2.840.1 1.2.274.638 1122 [id number] Univers 00:00:00 00:00:00 24375.1.1 350.1.13.41 ity of 3.412.2.7 [place]7.3.698 [place] .3.092881 084.8 MD [facility] 2022-04-26 2022-04-26 Tiffany Pompa 1.2.840.1 [id number] Univers 00:00:00 00:00:00 Only Ignacio 12693.1.1 ity of 3.412.2.7 [place] .3.259773 MD [facility] 2022-04-25 2022-04-25 Annette Herrera2.840.1 [id number] Univers 00:00:00 00:00:00 Only Ignacio 41763.1.1 ity of 3.412.2.7 [place] .3.058114 MD [facility] 2022-04-18 2022-04-18 Outpatient AMBREEN_FAR [facility] [address] [place] 11:00:00 11:00:00 [facility]22-03-22 2022-03-23 Emergency ER Sergey Wheatley 1.2.840.1 [id number] Univers 23:16:00 14:23:00 Christy Guzman 70420.1.1 ity of 3.412.2.7 [place] .3.887724 MD [facility] 2022-03-22 2022-03-22 Travel 1.2.840.1 1.2.315.761 [id number] Univers 00:00:00 00:00:00 68940.1.1 350.1.13.41 ity of 3.412.2.[place].3.698 [place] .3.195585 084.8 MD [facility] 2012-12-10 2012-12-12 [place] [address] [id number] Memoria 08:45:00 12:25:00 [facility] 02 l Lolo Results Test Description Test Time Test Comments Results Result Comments Source HLA Patient Collection Only 2023-05-30 19:37:22 Test Item Value Reference Range Interpretation Comme nts Specimen Received (test code = 8893) Yes JUDY (test code = JUDY) HLA B27Is this a stem cell transplant patient?->NoWhat loci do you need typed?->Low resolution B [facility] 2023-05-30 19:37:22 Test Item Value Reference Range Interpretation Comments Specimen Received Yes (test code = 8893) JUDY (test code = JUDY) HLA B27Is this a stem cell transplant patient?->NoWhat loci do you need typed?->Low resolution [id number] 16:17:36 Test Item Value Reference Range Interpretation Comments Sed Rate (test code = 6 See_Comment [Auto mated message] The 4537-7) system which ge nerated this result transmit ashanti reference range : 0 - 20 mm/hr. The refe rence range was not used to interpret this result as normal/abnormal . [facility] [id number] 16:17:36 Test Item Value Reference Range Interpretation Comments Sed Rate (test code = 6 See_Comment [Auto mated message] The 4537-7) system which ge nerated this result transmit ashanti reference range : 0 - 20 mm/hr. The refe rence range was not used to interpret this result as normal/abnormal . [facility]CRP[facility]-08-[facility] 16:04:18 Test Item Value Reference Range Interpretation Comments CRP (test code = 0.28 mg/[place] CRP 63654-4) assay are as fo llows: Reference range s when used to assess cardi ac risk: <1.00 mg/L Low cardiovascular risk 1.00-3.00 mg/L Average cardiovascular risk >3.00 mg/L High cardi ovascular risk.Reference ranges when used to assess inflammatory responses: Les s than or equal to 10.00 mg/L. [facility]-08-25 16:04:18 Test Item Value Reference Range Interpretation Comments CRP (test code = 0.28 mg/L [place] CRP 62125-3) assay are as fo llows: Reference range s when used to assess cardi ac risk: <1.00 mg/L Low cardiovascular risk 1.00-3.00 mg/L Average cardiovascular risk >3.00 mg/L High cardi ovascular risk.Reference ranges when used to assess inflammatory responses: Less than or equal to 10.00 mg/L. [facility] CenterFractionated [id number] 15:50:04 Test Item Value Reference Range Interpretation Comments Bili Total (test 0.5 mg/dL <=1.2 Indocyanine Green (ICG) code = 1974-) may cause fal sely elevated biliru bin results. Total and direct bilirubin must not be measured from s amples containing indo cyanine green. False el evation of total bilirubin can be seen in patient s with IgG concentrations above 28 g/L. Bili Direct (test <=0.3 Indocyanin e Green (ICG) code = 1967-) may cause fal sely elevated biliru bin results. Total and direct bilirubin must not be measured from s amples containing indo cyanine green. Bili Indirect (test See Note 0.0-0.9 Unable t o calculate code = 1970-10) Indirect Bili tabares result due to some par ameters are outside rep ortable range [facility] CenterFractionated [id number] 15:50:04 Test Item Value Reference Range Interpretation Comments Bili Total (test 0.5 mg/dL <=1.2 Indocyanine Green (ICG) code = 1974-11) may cause fal sely elevated biliru bin results. Total and direct bilirubin must not be measured from s amples containing indo cyanine green. False el evation of total bilirubin can be seen in patient s with IgG concentrations above 28 g/L. Bili Direct (test <=0.3 Indocyanin e Green (ICG) code = 1968-04) may cause fal sely elevated biliru bin results. Total and direct bilirubin must not be measured from s amples containing indo cyanine green. Bili Indirect (test See Note 0.0-0.9 Unable t o calculate code = 1970-10) Indirect Bili tabares result due to some par ameters are outside rep ortable range [facility] CenterTotal [id number] 15:50:02 Test Item Value Reference Range Interpretation Comments Total Protein (test code = 2885-2) 7.1 g/dL 6.4-8.3 [facility] CenterTotal [id number] 15:50:02 Test Item Value Reference Range Interpretation Comments Total Protein (test code = 2885-2) 7.1 g/dL 6.4-8.3 [facility] CenterCalcium [id number] 15:50:00 Test Item Value Reference Range Interpretation Comments Calcium Lvl (test code = 94691-1) 9.1 mg/dL 8.4-10.2 [facility] CenterCal[facility] [id number] 15:50:00 Test Item Value Reference Range Interpretation Comments Calcium Lvl (test code = 43402-5) 9.1 mg/dL 8.4-10.2 [facility] CenterGlomerular Filtration Rate 2023-05-30 15:49:59 Test Item Value Reference Range Interpretation Comments eGFR (test code = 114 See_Comment [place] [address]-6) the 2020 CKD-EP I creatinine equation using creatinine, patient's age, and sex for adults 18 years of age and older. Other fa ctors, especially musc le mass, may affect accuracy and need to be considered.A ccording to the Kidney Dise ase: Improving Global Outcomes (KDIGO) CKD Work Group 2012 Clinical Practice Guidel ine, chronic kidney disease (CKD) is defined as the abnormalities of kidney struc ture or function, prese nt for more than 3 months, with implications fo r health. CKD should be class ified by cause, GFR fern gory, and albuminuria cat egory. KDIGO guidelines prov jocelyn the following GFR c ategoriesStage Description GFR mL/min/1.73 m2G1* Normal or high >= 90G2* Mildly decrease d 60-89G3a Mildly to moder ately decreased 45-59 G3b Moderately to severely dec reased 30-44G4 Severely decrea sed 15-29G5 Kidney failure <15*In the absence of evid ence of kidney damage, neither G1 nor G2 fulfill criteri a for CKD. [Automated mess age] The system which ge nerated this result transmit ashanti reference range: >=60 mL/ min/1.73 sq. m. The referenc e range was not used to int erpret this result as carmen l/abnormal. [facility] [place]Glomerular Filtration Rate 2023-05-30 15:49:59 Test Item Value Reference Range Interpretation Comments eGFR (test code = 114 See_Comment [place]GFRcr [place] [address]-6) the 2020 CKD-EP I creatinine equation using creatinine, patient's age, and sex for adults 18 years of age and older. Other fa ctors, especially musc le mass, may affect accuracy and need to be considered.A ccording to the Kidney Dise ase: Improving Global Outcomes (KDIGO) CKD Work Group 2012 Clinical Practice Guidel ine, chronic kidney disease (CKD) is defined as the abnormalities of kidney struc ture or function, prese nt for more than 3 months, with implications fo r health. CKD should be class ified by cause, GFR fern gory, and albuminuria cat egory. KDIGO guidelines prov jocelyn the following GFR c ategoriesStage Description GFR mL/min/1.73 m2G1* Normal or high >= 90G2* Mildly decrease d 60-89G3a Mildly to moder ately decreased 45-59 G3b Moderately to severely dec reased 30-44G4 Severely decrea sed 15-29G5 Kidney failure <15*In the absence of evid ence of kidney damage, neither G1 nor G2 fulfill criteri a for CKD. [Automated mess age] The system which ge nerated this result transmit ashanti reference range: >=60 mL/ min/1.73 sq. m. The referenc e range was not used to int erpret this result as carmen l/abnormal. [facility]58 Test Item Value Reference Range Interpretation Comments ALT (test code = 1742-6) 15 U/L <=33 [facility] 15:49:58 Test Item Value Reference Range Interpretation Comments ALT (test code = 1742-6) 15 U/L <=33 [facility] CenterAlkaline [id number] 15:49:57 Test Item Value Reference Range Interpretation Comments Alk Phos (test code = 6768-6) 62 U/L 35-104 [facility] CenterAlkaline [id number] 15:49:57 Test Item Value Reference Range Interpretation Comments Alk Phos (test code = 6768-6) 62 U/L 35-104 [facility] 15:49:56 Test Item Value Reference Range Interpretation Comments BUN (test code = 3094-0) 8 mg/dL 6- [facility] 15:49:56 Test Item Value Reference Range Interpretation Comments BUN (test code = 3094-0) 8 mg/dL 6- [facility] CenterElectrolyte [id number] 15:49:55 Test Item Value Reference Range Interpretation Comments Sodium Lvl (test code = 139 See_Comment [Au tomated message] The 2951-2) system which ge nerated this result tra nsmitted reference range : 136 - 145 mEq/L. The reference range was not u sed to interpret this result as normal/abnormal . Potassium Lvl (test 4.3 See_Comment [Automa ashanti message] The code = 2823-3) system which generated this result tra nsmitted reference range : 3.5 - 5.1 mEq/L. The reference range was not u sed to interpret this result as normal/abnormal . Chloride (test code = 106 See_Comment [Auto mated message] The ) system which ge nerated this result tra nsmitted reference range : 98 - 107 mEq/L. The refe rence range was not u sed to interpret this result as normal/abnormal . CO2 (test code = 22 See_Comment [Automated message] The 2028-06) system which ge nerated this result tra nsmitted reference range : 22 - 29 mEq/L. The refe rence range was not u sed to interpret this result as normal/abnormal . Anion Gap (test code = 11 See_Comment [Aut omated message] The ) system which ge nerated this result tra nsmitted reference range : 4 - 14 mEq/L. The refe rence range was not u sed to interpret this result as normal/abnormal . [facility] CenterElectrolyte Xghfh1802-12-30 15:49:55 Test Item Value Reference Range Interpretation Comments Sodium Lvl (test code = 139 See_Comment [Au tomated message] The 2950-11) system which ge nerated this result tra nsmitted reference range : 136 - 145 mEq/L. The reference range was not u sed to interpret this result as normal/abnormal . Potassium Lvl (test 4.3 See_Comment [Automa ashanti message] The code = 2823-3) system which generated this result tra nsmitted reference range : 3.5 - 5.1 mEq/L. The reference range was not u sed to interpret this result as normal/abnormal . Chloride (test code = 106 See_Comment [Auto mated message] The ) system which ge nerated this result tra nsmitted reference range : 98 - 107 mEq/L. The refe rence range was not u sed to interpret this result as normal/abnormal . CO2 (test code = 22 See_Comment [Automated message] The 2028-06) system which ge nerated this result tra nsmitted reference range : 22 - 29 mEq/L. The refe rence range was not u sed to interpret this result as normal/abnormal . Anion Gap (test code = 11 See_Comment [Aut omated message] The 01474-2) system which ge nerated this result tra nsmitted reference range : 4 - 14 mEq/L. The refe rence range was not u sed to interpret this result as normal/abnormal . [facility] CenterAlbumin Pbsmz8338-66-26 15:49:54 Test Item Value Reference Range Interpretation Comments Albumin Lvl (test code 4.1 See_Comment [Aut omated message] The = 1751-04) system which ge nerated this result tra nsmitted reference range : 3.5 - 5.2 gm/dL. The refe rence range was not used to interpret this result as normal/abnormal . [facility] CenterAlbumin Uhfqn3606-44-02 15:49:54 Test Item Value Reference Range Interpretation Comments Albumin Lvl (test code 4.1 See_Comment [Aut omated message] The = 1751-04) system which ge nerated this result tra nsmitted reference range : 3.5 - 5.2 gm/dL. The refe rence range was not used to interpret this result as normal/abnormal . [facility] CenterGlucose Yauuu7515-05-31 15:49:53 Test Item Value Reference Range Interpretation Comments Glucose Level (test 93 mg/dL 70-99 Effectiv e 05/01/16, the code = 2345-7) glucose refer ence intervals have been updated based o n [place] [employer] mi delines (Standards of M edical Care in Diabete s 2016. Diabetes Care 2 016; 39: S13-S22).Fastin g blood glucose:Normal: 70-99 mg/dLImpaired f asting glucose (increa sed risk for diabetes or pre-diabetes): 100-125 mg/dLDiabetes m ellitus: >/=126 mg/dL Ra ndom blood glucose:N ormal: 70-199 mg/dLNot e: Random glucose >100 mg /dL is associated with increased risk for diabetes [facility] CenterGlucose Dqmhi6060-76-80 15:49:53 Test Item Value Reference Range Interpretation Comments Glucose Level (test 93 mg/dL 70-99 Effectiv e 05/01/16, the code = 2345-7) glucose refer ence intervals have been updated based o n [place] [employer] mi delines (Standards of M edical Care in Diabete s 2016. Diabetes Care 2 016; 39: S13-S22).Fastin g blood glucose:Normal: 70-99 mg/dLImpaired f asting glucose (increa sed risk for diabetes or pre-diabetes): 100-125 mg/dLDiabetes m ellitus: >/=126 mg/dL Ra ndom blood glucose:N ormal: 70-199 mg/dLNot e: Random glucose >100 mg /dL is associated with increased risk for diabetes [facility] CenterAspartate Aminotransferase 2023-05-30 15:49:52 Test Item Value Reference Range Interpretation Comments AST (test code = 1920-8) 22 U/L <=32 [facility] CenterAspartate Aminotransferase 2023-05-30 15:49:52 Test Item Value Reference Range Interpretation Comments AST (test code = 1920-8) 22 U/L <=32 [facility].Serum [id number] 15:49:50 Test Item Value Reference Range Interpretation Comments Creatinine (test code = 2160-0) 0.63 mg/dL 0.51-0.95 [facility].Serum Xjtllqtobp9761-98-99 15:49:50 Test Item Value Reference Range Interpretation Comments Creatinine (test code = 2160-0) 0.63 mg/dL 0.51-0.95 [facility] CenterDifferential2023-08-25 15:22:04 Test Item Value Reference Range Interpretation Comments Neutrophil % (test code 60.8 % 43.2-72.7 = 770-8) Lymphocyte % (test code 28.8 % 16.8-46.2 = 736-9) Monocyte % (test code = 6.8 % 5.1-12.5 5905-5) Eosinophil % (test code 2.7 % 0.4-6.3 = 713-8) Basophil % (test code = 0.7 % 0.2-1.4 706-2) IGRE % (test code = 0.2 % 0.1-1.5 IGRE % c ount includes 06441-8) Metamyelocytes, Myelocytes, and Promyelocytes. Neutrophil Abs (test 3.57 K/uL 1.95-7.25 code = 751-8) Lymphocyte Abs (test 1.69 K/uL 1.01-3.24 code = 731-0) Monocyte Abs (test code 0.40 K/uL 0.24-0.85 = 742-7) Eosinophil Abs (test 0.16 K/uL 0.02-0.50 code = 711-2) Basophil Abs (test code 0.04 K/uL 0.02-0.09 = 704-7) IG Abs (test code = 0.01 K/uL 0.01-0.12 54863-1) [facility] CenterDifferential2023-08-25 15:22:04 Test Item Value Reference Range Interpretation Comments Neutrophil % (test code 60.8 % 43.2-72.7 = 770-8) Lymphocyte % (test code 28.8 % 16.8-46.2 = 736-9) Monocyte % (test code = 6.8 % 5.1-12.5 5905-5) Eosinophil % (test code 2.7 % 0.4-6.3 = 713-8) Basophil % (test code = 0.7 % 0.2-1.4 706-2) IGRE % (test code = 0.2 % 0.1-1.5 IGRE % c ount includes 00284-8) Metamyelocytes, Myelocytes, and Promyelocytes. Neutrophil Abs (test 3.57 K/uL 1.95-7.25 code = 751-8) Lymphocyte Abs (test 1.69 K/uL 1.01-3.24 code = 731-0) Monocyte Abs (test code 0.40 K/uL 0.24-0.85 = 742-7) Eosinophil Abs (test 0.16 K/uL 0.02-0.50 code = 711-2) Basophil Abs (test code 0.04 K/uL 0.02-0.09 = 704-7) IG Abs (test code = 0.01 K/uL 0.01-0.12 35363-9) [facility] CenterFree [id number] 16:49:52 Test Item Value Reference Range Interpretation Comments T4 Free (test code = 1.09 ng/dL 0.93-1.70 3024-7) JUDY (test code = JUDY) [facility]Free [id number] 16:49:52 Test Item Value Reference Range Interpretation Comments T4 Free (test code = 1.09 ng/dL 0.93-1.70 3024-7) JUDY (test code = JUDY) [facility] SouthTSH2023-06-13 16:49:49 Test Item Value Reference Range Interpretation Comments TSH (test code 1.17 See_Comment [Automated m essage] = 70509-9) The system [employer] generated this result transmitted ref erence range: 0.27 - 4 .20 mcunit/mL. The reference range was not used to int erpret this result as normal/abnormal . [facility] ([facility] CenterTSH2023-06-13 16:49:49 Test Item Value Reference Range Interpretation Comments TSH (test code 1.17 See_Comment [Automated m essage] = 54463-8) The system [employer] generated this result transmitted ref erence range: 0.27 - 4 .20 mcunit/mL. The reference range was not used to int erpret this result as normal/abnormal . JUDY (test code [facility] location = JUDY) [facility] CenterIFE Path Jiaooq0105-88-06 03:37:56 EDMUND Path IntThe serum protein immunofixation electrophoretic patterns obtained with the use of antisera against IgG, IgA, IgM, bound kappa and bound lambda light chains do not show definitive evidence of a monoclonal gammopathy. Immunofixation studies using antisera against IgD, IgE, or free light chains were not performed in this study, consequently, if an M-protein with these characteristics is suspected, suggest follow-up EDMUND studies using these antisera, if clinically indicated. [facility]AGESUnTexas Health AllenIFE Path Loehrk8760-86-23 03:37:56IFE Path IntThe serum protein immunofixation electrophoretic patterns obtained with the use of antisera against IgG, IgA, IgM, bound kappa and bound lambda light chains do not show definitive evidence of a monoclonal gammopathy. Immunofixation studies using antisera against IgD, IgE, or free light chains were not performed in this study, consequently, if an M-protein with these characteristics is suspected, suggest follow-up EDMUND studies using these antisera, if clinically indicated. [facility] CENTERUnTexas Health Allen Immunofixation smpnwyomeaclvma0097-46-15 03:37:55 Test Item Value Reference Range Interpretation Comments EDMUND (test code = 5948) See Comment [facility] CenterImmunofixation electrophoresis 2023-01-27 03:37:55 Test Item Value Reference Range Interpretation Comments EDMUND (test code = 5948) See Comment [facility] CenterProtein Electrophoresis Path Review 2023-01-27 03:37:54 Test Item Value Reference Range Interpretation Comments SPE Path The serum protein Interp (test electrophoretic code = 7285) pattern does not show ____HORTENSIA definitive altaf BNOE MD - of an M-protein peak. [id number] ictated by: Nuria LOZANO - [id number] Date/Time: 01.05 22:37 PM CDT Transcribed Date/Time: 01.05 22:37 PM CDTElectronical ly Signed By: SENG BONE MD - 1018 4 on 01.26.2023 22:3 7 PM [facility] CenterProtein Electrophoresis Path Review 2023-01-27 03:37:54 Test Item Value Reference Range Interpretation Comments SPE Path The serum protein Interp (test electrophoretic code = 7285) pattern does not show ____HORTENSIA BONE MD - of an M-protein peak. [id number] ictated by: Nuria LOZANO - [id number] Date/Time: 01.05 22:37 PM CDT Transcribed Date/Time: 01.05 22:37 PM CDTElectronical ly Signed By: SENG BONE MD - 1018 4 on 01.26.2023 22:3 7 PM [facility] CenterProtein Fsfpezxvxfgeptr3228-46-42 03:37:53 Test Item Value Reference Range Interpretation Comments TOT PROTEIN (test code 7.6 See_Comment [Aut omated message] The = 2145) system which ge nerated this result tra nsmitted reference range : 6.4 - 8.3 gm/dL. The reference range was not u sed to interpret this result as normal/abnormal . Albumin (test code = 4.4 See_Comment [Autom ated message] The 4760) system which ge nerated this result tra nsmitted reference range : 3.6 - 5.4 gm/dL. The reference range was not u sed to interpret this result as normal/abnormal . Alpha 1 Globulin (test 0.2 See_Comment [Aut omated message] The code = 4774) system which ge nerated this result tra nsmitted reference range : 0.2 - 0.4 gm/dL. The reference range was not u sed to interpret this result as normal/abnormal . Alpha 2 Globulin (test 0.6 See_Comment [Aut omated message] The code = 4777) system which ge nerated this result tra nsmitted reference range : 0.5 - 1.0 gm/dL. The reference range was not u sed to interpret this result as normal/abnormal . Beta Globulin (test 0.8 See_Comment [Automa ashanti message] The code = 5078) system which ge nerated this result tra nsmitted reference range : 0.5 - 1.1 gm/dL. The reference range was not u sed to interpret this result as normal/abnormal . Gamma Globulin (test 1.5 See_Comment [Autom ated message] The code = 2874-6) system which generated this result tra nsmitted reference range : 0.7 - 1.6 gm/dL. The reference range was not u sed to interpret this result as normal/abnormal . [facility] CenterProtein Lgmoigrwlhpahyx6740-32-39 03:37:53 Test Item Value Reference Range Interpretation Comments TOT PROTEIN (test code 7.6 See_Comment [Aut omated message] The = 3345) system which ge nerated this result tra nsmitted reference range : 6.4 - 8.3 gm/dL. The reference range was not u sed to interpret this result as normal/abnormal . Albumin (test code = 4.4 See_Comment [Autom ated message] The 4760) system which ge nerated this result tra nsmitted reference range : 3.6 - 5.4 gm/dL. The reference range was not u sed to interpret this result as normal/abnormal . Alpha 1 Globulin (test 0.2 See_Comment [Aut omated message] The code = 4774) system which ge nerated this result tra nsmitted reference range : 0.2 - 0.4 gm/dL. The reference range was not u sed to interpret this result as normal/abnormal . Alpha 2 Globulin (test 0.6 See_Comment [Aut omated message] The code = 4777) system which ge nerated this result tra nsmitted reference range : 0.5 - 1.0 gm/dL. The reference range was not u sed to interpret this result as normal/abnormal . Beta Globulin (test 0.8 See_Comment [Automa ashanti message] The code = 5078) system which ge nerated this result tra nsmitted reference range : 0.5 - 1.1 gm/dL. The reference range was not u sed to interpret this result as normal/abnormal . Gamma Globulin (test 1.5 See_Comment [Autom ated message] The code = 2874-6) system which generated this result tra nsmitted reference range : 0.7 - 1.6 gm/dL. The reference range was not u sed to interpret this result as normal/abnormal . [facility] Cancer Quine[place]augCardiolipin Jw6925-90-16 17:06:07 Test Item Value Reference Range Interpretation Comments Cardio IgG (test code <9.4 See_Comment Test Performed by:Keene = 3181-5) [facility] [address] [place], [place] [address]Fhm Director: Carlos Andujar M.D. Ph.D.; CLI A# [id number] [Aut omated message] The sy stem which generated this result transmitted ref erence range: <15.0 (N egative) GPL. The refere nce range was not used to interpret this result as normal/abnormal . Cardio IgM (test code 11.3 See_Comment [Auto mated message] The = 3182-3) system which ge nerated this result transmit ashanti reference range : <15.0 (Negative) MPL. The reference range was not used to interpr et this result as carmen l/abnormal. [facility] CenterCardiolipin [id number] 17:06:07 Test Item Value Reference Range Interpretation Comments Cardio IgG (test code <9.4 See_Comment Test Performed by:Keene = 3181-5) [facility] [employer] i[address] [place], [place] [address]Ubt Director: Carlos Andujar M.D. Ph.D.; CLI A# [id number] [Aut omated message] The sy stem which generated this result transmitted ref erence range: <15.0 (N egative) GPL. The refere nce range was not used to interpret this result as normal/abnormal . Cardio IgM (test code 11.3 See_Comment [Auto mated message] The = 3182-3) system which ge nerated this result transmit ashanti reference range : <15.0 (Negative) MPL. The reference range was not used to interpr et this result as carmen l/abnormal. [facility] CenterUrine Eqdwrzh6821-65-07 16:32:23 Test Item Value Reference Range Interpretation Comments Final Report (test code = <10,000 cfu/ml A 8488) Normal site joyce present.Generally of low significance.Correl ate with clinical data and culture history. Lab Interpretation (test Abnormal code = 23017-0) [facility] CenterUrine Ktevxfm7549-27-93 16:32:23 Test Item Value Reference Range Interpretation Comments Final Report (test code = <10,000 cfu/ml A 8488) Normal site joyce present.Generally of low significance.Correl ate with clinical data and culture history. Lab Interpretation (test Abnormal code = 92262-6) [facility] CenterLupus2023-04-13 04:59:23 Test Item Value Reference Range Interpretation Comments N LAC Ratio (test 0.93 See_Comment [Automate d message] The code = 6449) system which ge nerated this result transmit ashanti reference range : <=1.20 ratio. The refe rence range was not used to interpret this result as normal/abnormal . [facility] CenterLupus2023-04-13 04:59:23 Test Item Value Reference Range Interpretation Comments N LAC Ratio (test 0.93 See_Comment [Automate d message] The code = 6449) system which ge nerated this result transmit ashanti reference range : <=1.20 ratio. The refe rence range was not used to interpret this result as normal/abnormal . [facility] CenterLupus Anticoagulant Path Review 2023-01-16 04:59:22Lupus Anticoagulant Path InterpThe screening test for lupus anticoagulant is negative,suggestive of absence of lupus anticoagulant. However,due to the heterogeneous nature of the lupus anticoagulant,the presence of lupus anticoagulant can not be completelyruled out. If clinical suspicion for lupus anticoagulantis strong, repeat screening test for anticoagulant atdifferent time, anticardiolipin antibody testing andadditional lupus panel studies are recommended. [facility]ENTERUnTexas [facility] AllenLupus Anticoagulant Path Ukjijo6340-57-10 04:59:22Lupus Anticoagulant Path InterpThe screening test for lupus anticoagulant is negative,suggestive of absence of lupus anticoagulant. However,due to the heterogeneous nature of the lupus anticoagulant,the presence of lupus anticoagulant can not be completelyruled out. If clinical suspicion for lupus anticoagulantis strong, repeat screening test for anticoagulant atdifferent time, anticardiolipin antibody testing andadditional lupus panel studies are recommended. [facility]ENTERUnTexas Health AllenCyclic Citrullinated Peptide [id number] 02:47:22 Test Item Value Reference Range Interpretation Comments CCP Ab-Gordon (test <15.6 See_Comment Test Perf ormed by:Gordon code = 25024-1) [facility] ior [address] [place] [address]Lab Director: Carlos Andujar M.D. Ph.D.; CLI A# [id number] [Automated mess age] The system which [employer] nerated this result transmit ashanti reference range: <20.0 (N egative) Units. The refe rence range was not used to interpret this result as normal/abnormal . [facility] CenterCyclic Citrullinated Peptide Ab 2023-01-16 02:47:22 Test Item Value Reference Range Interpretation Comments CCP Ab-Gordon (test <15.6 See_Comment Test Perf ormed by:Gordon code = 26354-4) [facility] [address] [place], [place] [address]Lab Director: Carlos Andujar M.D. Ph.D.; CLI A# [id number] [Automated mess age] The system which ge nerated this result transmit ashanti reference range: <20.0 (N egative) Units. The refe rence range was not used to interpret this result as normal/abnormal . [facility] Medical CenterAntinuclear Antibody (FLORY) HEp-2 Substrate, [id number] 02:15:32 Test Item Value Reference Range Interpretation Comments FLORY HEp-2 See Footnote See_Comment RESULT: <1:80 ( Negative) Substrate (test -------ADDITI code = 96948-5) ONAL INFORMATION---- -----Method: Immunofluoresce nce using HEp-2 cellular substrate. Test Performed by:[facility] [employer] ior [address] [place] [place], [place] [address]B[employer] or: Oswaldo whitten M.D. Ph.D.; CLIA# 24 [id number] [Automated mess age] The system which ge nerated this result tra nsmitted reference range : <1:80 (Negative). The reference range was not u sed to interpret this result as normal/abnormal . [facility] CenterAntinuclear Antibody (FLORY) HEp-2 Substrate, [id number] 02:15:32 Test Item Value Reference Range Interpretation Comments FLORY HEp-2 See Footnote See_Comment RESULT: <1:80 ( Negative) Substrate (test -------ADDITI code = 19180-1) ONAL INFORMATION---- -----Method: Immunofluoresce nce using HEp-2 cellular substrate. Test Performed by:[facility] QuVIS ior [address] [place], [place] [address]Iyn Direct or: Oswaldo whitten M.D. Ph.D.; CLIA# 24 [id number] [Automated mess age] The system which ge nerated this result tra nsmitted reference range : <1:80 (Negative). The reference range was not u sed to interpret this result as normal/abnormal . [facility] CenterAnti B2 Siketkzprysd4607-33-21 01:40:11 Test Item Value Reference Range Interpretation Comments B2 GPI IgM (test <9.4 See_Comment Test Perfo rmed by:Keene code = 60677-1) [facility] [address] [place] [address]Lab Director: Carlos Andujar M.D. Ph.D.; CLI A# [id number] [Automated mess age] The system which ge nerated this result transmit ashanti reference range: <15.0 (N egative) SMU. The reference r megan was not used to interpr et this result as carmen l/abnormal. B2 GPI IgG (test <9.4 See_Comment [Automated message] The code = 30282-2) system which generated this result transmit ashanti reference range: <15.0 (N egative) SGU. The reference r megan was not used to interpr et this result as carmen l/abnormal. [facility] CenterAnti B2 Mxmueqeiytnl3443-35-79 01:40:11 Test Item Value Reference Range Interpretation Comments B2 GPI IgM (test <9.4 See_Comment Test Perfo rmed by:Keene code = 47176-1) [facility] [address] [place] [address]Lab Director: Carlos Andujar M.D. Ph.D.; CLI A# [id number] [Automated mess age] The system which ge nerated this result transmit ashanti reference range: <15.0 (N egative) SMU. The reference r megan was not used to interpr et this result as acrmen l/abnormal. B2 GPI IgG (test <9.4 See_Comment [Automated message] The code = 41830-9) system which generated this result transmit ashanti reference range: <15.0 (N egative) SGU. The reference r megan was not used to interpr et this result as carmen l/abnormal. [facility] CenterDNA Ab [id number] 00:30:35 Test Item Value Reference Range Interpretation Comments DS-DNA IgG-Gordon <12.3 See_Comment Test Perfor med by:Keene (test code = [facility] - 63235-5) [facility] [address] [place] [address]Lab Director: Carlos Andujar M.D. Ph.D.; CLI A# [id number] [Automated mess age] The system which ge nerated this result transmit ashanti reference range: <30.0 (N egative) IU/mL. The refe rence range was not used to interpret this result as normal/abnormal . [facility] CenterDNA Ab [id number] 00:30:35 Test Item Value Reference Range Interpretation Comments DS-DNA IgG-Gordon <12.3 See_Comment Test Perfor med by:Keene (test code = [facility] - 86154-0) [facility] [address] [place] [address]Lab Director: Carlos Andujar M.D. Ph.D.; CLI A# [id number] [Automated mess age] The system which ge nerated this result transmit ashanti reference range: <30.0 (N egative) IU/mL. The refe rence range was not used to interpret this result as normal/abnormal . [facility] Medical CenterAnti-Neutrophil Cytoplasmic Antibodies Vascultitis Yogup8882-95-78 21:07:49 Test Item Value Reference Range Interpretation Comments Myeloperox Ab-Gordon <0.2 See_Comment [Automat ed message] The (test code = 67111-0) system which generated this result tra nsmitted reference range : <0.4 (Negative) Unit s. The reference range was not used to interpr et this result as normal/abnormal . Proteinase 3 Ab-Gordon <0.2 See_Comment Test P erformed by:Evan (test code = 53201-9) [facility] [address] [place], [place] [address]Gon Direct or: Oswaldo whitten M.D. Ph.D.; CLIA# 24 [id number] [Automated mess age] The system which ge nerated this result tra nsmitted reference range : <0.4 (Negative) Unit s. The reference range was not used to interpr et this result as normal/abnormal . [facility] CenterAnti-Neutrophil Cytoplasmic Antibodies Vascultitis Ttbms1118-97-19 21:07:49 Test Item Value Reference Range Interpretation Comments Myeloperox Ab-Gordon <0.2 See_Comment [Automat ed message] The (test code = 40617-5) system which generated this result tra nsmitted reference range : <0.4 (Negative) Unit s. The reference range was not used to interpr et this result as normal/abnormal . Proteinase 3 Ab-Gordon <0.2 See_Comment Test P erformed by:Keene (test code = 38231-5) [facility] [facility] [employer] (acquired by [employer])[address] [employer] (acquired by [employer]) [place], [place] [address]Akj Direct or: Oswaldo whitten M.D. Ph.D.; CLIA# [id number] [Automated mess age] The system which ge nerated this result tra nsmitted reference range : <0.4 (Negative) Unit s. The reference range was not used to interpr et this result as normal/abnormal . [facility] [id number] 21:07:48 Test Item Value Reference Range Interpretation Comments Sm Auto IgG Ab-Gordon <0.2 See_Comment Test Pe rformed by:Keene (test code = [facility] - 86914-2) [facility] [employer] (acquired by [employer])[address] [place], [place] [address]Lab Director: Carlos Andujar M.D. Ph.D.; CLI A# [id number] [Automated mess age] The system which ge nerated this result transmit ashanti reference range: <1.0 (Ne gative) Units. The refe rence range was not used to interpret this result as normal/abnormal . [facility] [id number] 21:07:48 Test Item Value Reference Range Interpretation Comments Sm Auto IgG Ab-Gordon <0.2 See_Comment Test Pe rformed by:Keene (test code = [facility] - 57029-0) [place] [employer] (acquired by [employer])[address] [place] [address]Lab Director: Carlos Andujar M.D. Ph.D.; CLI A# [id number] [Automated mess age] The system which ge nerated this result transmit ashanti reference range: <1.0 (Ne gative) Units. The refe rence range was not used to interpret this result as normal/abnormal . [facility]+[id number] 21:07:47 Test Item Value Reference Range Interpretation Comments SS-A/Ro IgG-Gordon 0.2 See_Comment [Automated message] The (test code = system which ge nerated this 16726-2) result transmit ashanti reference range: <1.0 (Ne gative) Units. The refe rence range was not used to interpret this result as normal/abnormal . SS-B/La IgG-Gordon <0.2 See_Comment Test Perfo rmed by:Keene (test code = [facility] - 39779-2) [facility] [address] [place] [address]Lab Director: Carlos Andujar M.D. Ph.D.; CLI A# [id number] [Automated mess age] The system which ge nerated this result transmit ashanti reference range: <1.0 (Ne gative) Units. The refe rence range was not used to interpret this result as normal/abnormal . [facility]+[id number] 21:07:47 Test Item Value Reference Range Interpretation Comments SS-A/Ro IgG-Gordon 0.2 See_Comment [Automated message] The (test code = system which ge nerated this 87888-2) result transmit ashanti reference range: <1.0 (Ne gative) Units. The refe rence range was not used to interpret this result as normal/abnormal . SS-B/La IgG-Gordon <0.2 See_Comment Test Perfo rmed by:Keene (test code = [facility] - 48648-6) [facility] [address] [place] [address]Lab Director: Carlos Andujar M.D. Ph.D.; CLI A# [id number] [Automated mess age] The system which ge nerated this result transmit ashanti reference range: <1.0 (Ne gative) Units. The refe rence range was not used to interpret this result as normal/abnormal . [facility] CenterRNP Ab [id number] 21:07:46 Test Item Value Reference Range Interpretation Comments U1RNP Auto IgG 0.2 See_Comment Test Perform ed by:[facility] (test code = [facility] [employer] - 84708-9) [facility] Gel[address] [place] [address]Lab Director: Carlos Andujar M.D. Ph.D.; CLI A# [id number] [Automated mess age] The system which ge nerated this result transmit ashanti reference range: <1.0 (Ne gative) Units. The refe rence range was not used to interpret this result as normal/abnormal . [facility] CenterRNP Ab [id number] 21:07:46 Test Item Value Reference Range Interpretation Comments U1RNP Auto IgG 0.2 See_Comment Test Perform ed by:[facility] (test code = [facility] [employer] - 43488-2) [facility] Esl[address] [place] [address]Lab Director: Carlos Andujar M.D. Ph.D.; CLI A# [id number] [Automated mess age] The system which ge nerated this result transmit ashanti reference range: <1.0 (Ne gative) Units. The refe rence range was not used to interpret this result as normal/abnormal . [facility] 70 Ab [id number] 21:07:45 Test Item Value Reference Range Interpretation Comments Scl-70 IgG-Gordon <0.2 See_Comment Test Perfor med by:Keene (test code = [facility] jeri - 90514-1) [facility] Niwag[address] [place] [address]Lab Director: Carlos Andujar M.D. Ph.D.; CLI A# [id number] [Automated mess age] The system which ge nerated this result transmit ashanti reference range: <1.0 (Ne gative) Units. The refe rence range was not used to interpret this result as normal/abnormal . [facility] 70 Ab [id number] 21:07:45 Test Item Value Reference Range Interpretation Comments Scl-70 IgG-Gordon <0.2 See_Comment Test Perfor med by:Gordon (test code = [facility] - 63764-3) [place] [employer] ior Iem[address] [place], [place] [address]Lab Director: Carlos Andujar M.D. Ph.D.; CLI A# [id number] [Automated mess age] The system which ge nerated this result transmit ashanti reference range: <1.0 (Ne gative) Units. The refe rence range was not used to interpret this result as normal/abnormal . [facility] CenterC42023-04-12 19:57:27 Test Item Value Reference Range Interpretation Comments C4-Keene (test code 20 mg/dL 14-40 Test Per formed by:Keene = 4498-2) [facility] [address] [place], [place] [address]Ius Director: Carlos Anduajr M.D. Ph. D.; CLIA# [id number] [facility] CenterC42023-04-12 19:57:27 Test Item Value Reference Range Interpretation Comments C4-Keene (test code 20 mg/dL 14-40 Test Per formed by:Keene = 4498-2) [facility] [address] [place], [place] [address]Pob Director: Carlos Andujar M.D. Ph. D.; CLIA# [id number] [facility] CenterC32023-04-12 19:57:26 Test Item Value Reference Range Interpretation Comments C3-Keene (test code 104 mg/dL 75-175 Test Per formed by:Keene = 4485-9) [facility] [address] [place], [place] [address]Hxo Director: Carlos Andujar M.D. Ph. D.; CLIA# [id number] [facility] CenterC32023-04-12 19:57:26 Test Item Value Reference Range Interpretation Comments C3-Keene (test code 104 mg/dL 75-175 Test Per formed by:Keene = 4485-9) [facility] [address]pa[address] [place], [place] [address]Bkx Director: Carlos Andujar M.D. Ph. D.; CLIA# [id number] [facility] CenterHepatitis B IgM Core Ab (CONFIRM ACUTE INFECTION ONLY) (anti-HBc IgM; HBcAb IgM)2023-01-15 15:46:32 Test Item Value Reference Range Interpretation Comments Hep B Core IgM-Keene Negative Negative Test Pe rformed by:Keene (test code = [facility] - 06534-1) [facility] [address] [place], [place] [address]Jfy Director: Carlos Andujar M.D. Ph. D.; CLIA# [id number] [facility] CenterHethe medical centertis B IgM Core Ab (CONFIRM ACUTE INFECTION ONLY) (anti-HBc IgM; HBcAb IgM)2023-01-15 15:46:32 Test Item Value Reference Range Interpretation Comments Hep B Core IgM-Keene Negative Negative Test Pe rformed by:Keene (test code = [facility] - 07799-9) [facility] Jkqcf[address] [place], [place] [address]Ciy Director: Carlos Andujar M.D. Ph. D.; CLIA# [id number] [facility] CenterHIV-1/2 Antigen and Antibodies, Fourth [id number] 11:03:33 Test Item Value Reference Range Interpretation Comments HIV Ag/Ab, NON-REACTIVE NON-REACTIVE HIV-1 antigen a nd 4TH Gen (test HIV-1/HIV-2 an tibodies were code = [place] [address]-8) laboratory evid ence of HIVinfection. P LEASE NOTE: This informatio n has been disclosed toyou from records whose confident iality may beprotected by state law. If your state requ ires suchprotection, then the state law prohi bits you frommaking any further disclosure of t he informationwith out the specific writte n consent of the personto wh om it pertains, or as otherwise permitted by sofia w.A general authorization f or the release of medi fran orother information is NOT sufficient for this purpose. For additional information please refer tohttp://[employer]/faq /IAJ886(This link is being p rovided for informational/e ducational purposes only.) The performance of this assay has not been clinicallyvalid ated in patients less t sanders 2 years old. Lab test p erformed by:Lab Mnemonic : [employer] [facility] [address] [place] [address]WVDDSGROVER PAUL MD [facility] CenterHIV-1/2 Antigen and Antibodies, Fourth Odcokskwpz0842-30-56 11:03:33 Test Item Value Reference Range Interpretation Comments HIV Ag/Ab, NON-REACTIVE NON-REACTIVE HIV-1 antigen a nd 4TH Gen (test HIV-1/HIV-2 an tibodies were code = [place] [address]-2) laboratory evid ence of HIVinfection. P LEASE NOTE: This informatio n has been disclosed toyou from records whose confident iality may beprotected by state law. If your state requ ires suchprotection, then the state law prohi bits you frommaking any further disclosure of t he informationwith out the specific writte n consent of the personto om it pertains, or as otherwise permitted by sofia atkins.A general authorization f or the release of medi fran orother information is NOT sufficient for this purpose. For additional information please refer tohttp://[employer]/faq /DMF632(This link is being p rovided for informational/e ducational purposes only.) The performance of this assay has not been clinicallyvalid ated in patients less t sanders 2 years old. Lab test p erformed by:Lab Mnemonic : [employer] [address] [place] [address]NZBHIGROVER PAUL MD [facility] CenterUrinalysis w/Microscopic if Awpmloswl4205-17-56 20:30:33 Test Item Value Reference Range Interpretation Comments UA Color (test code = 01193-2) Yellow Straw-Yellow UA Appear (test code = 26224-4) Clear Clear UA Glucose (test code = 5792-7) NEG NEG mg/dL UA Bili (test code = 5770-3) NEG NEG UA Ketones (test code = 5797-6) NEG NEG mg/dL UA Spec Grav (test code = 5810-7) 1.017 1.003-1.035 UA Blood (test code = 5794-3) NEG NEG UA pH (test code = 5803-2) 6.5 5.0-9.0 UA Protein (test code = 5804-0) NEG NEG mg/dL UA Urobilinogen (test code = 5818-0) 1+ NEG A UA Nitrite (test code = 5802-4) NEG NEG UA Leuk Est (test code = 5799-2) NEG NEG Lab Interpretation (test code = Abnormal 00483-1) [facility] CenterUrinalysis w/Microscopic if Yndzfqdjx0956-94-27 20:30:33 Test Item Value Reference Range Interpretation Comments UA Color (test code = 15496-9) Yellow Straw-Yellow UA Appear (test code = 17484-8) Clear Clear UA Glucose (test code = 5792-7) NEG NEG mg/dL UA Bili (test code = 5770-3) NEG NEG UA Ketones (test code = 5797-6) NEG NEG mg/dL UA Spec Grav (test code = 5810-7) 1.017 1.003-1.035 UA Blood (test code = 5794-3) NEG NEG UA pH (test code = 5803-2) 6.5 5.0-9.0 UA Protein (test code = 5804-0) NEG NEG mg/dL UA Urobilinogen (test code = 5818-0) 1+ NEG A UA Nitrite (test code = 5802-4) NEG NEG UA Leuk Est (test code = 5799-2) NEG NEG Lab Interpretation (test code = Abnormal 01428-0) [facility] CenterHepatitis C Virus [id number] 20:08:04 Test Item Value Reference Range Interpretation Comments HCVAb. (test Non Reactive Non Reactive Antibody detect ion in the code = 5762) immunocompromis ed and immunosuppresse d population may be delayed or absent entirely. There fore serial testing, correl ation with other clinical findings, and supplementa l testing (if available) should be taken into cons ideration when interpreti ng the results. [facility] C Virus [id number] 20:08:04 Test Item Value Reference Range Interpretation Comments HCVAb. (test Non Reactive Non Reactive Antibody detect ion in the code = 5762) immunocompromis ed and immunosuppresse d population may be delayed or absent entirely. There fore serial testing, correl ation with other clinical findings, and supplementa l testing (if available) should be taken into cons ideration when interpreti ng the results. [facility] B Surface Antibody 2023-01-14 20:07:46 Test Item Value Reference Range Interpretation Comments HBs Ab (test code = 84195) Reactive Non Reactive A Lab Interpretation (test code = Abnormal 20375-5) [facility] B Surface Antibody 2023-01-14 20:07:46 Test Item Value Reference Range Interpretation Comments HBs Ab (test code = 31562) Reactive Non Reactive A Lab Interpretation (test code = Abnormal 17985-2) [facility] B surface antigen 2023-01-14 20:07:28 Test Item Value Reference Range Interpretation Comments HBsAg. (test code = 5747) Non Reactive Non Reactive [facility] B surface antigen 2023-01-14 20:07:28 Test Item Value Reference Range Interpretation Comments HBsAg. (test code = 5747) Non Reactive Non Reactive [facility] B Total Ig Core Ab (SCREENING) (anti-HBc total Ig; HBcAb total Ig)2023-01-14 20:06:16 Test Item Value Reference Range Interpretation Comments HBcAb. (test code = 5742) Non Reactive Non Reactive [facility] B Total Ig Core Ab (SCREENING) (anti-HBc total Ig; HBcAb total Ig)2023-01-14 20:06:16 Test Item Value Reference Range Interpretation Comments HBcAb. (test code = 5742) Non Reactive Non Reactive [facility] CenterProtein/Creatinine Ratio Urine 2023-01-14 19:41:34 Test Item Value Reference Range Interpretation Comments UTP Ran (test code = 7 mg/dL Normal range not 2888-6) available for collections les s than 24 hours in dur ation. U Creatinine (test 108.5 mg/dL 29.0-226.0 The refer ence range code = 2161-8) listed is for first morning urine collection. U Prot/Creat (test 0.06 g/g <=0.14 code = 7805) [facility] CenterProtein/Creatinine Ratio Urine 2023-01-14 19:41:34 Test Item Value Reference Range Interpretation Comments UTP Ran (test code = 7 mg/dL Normal range not 2888-6) available for collections les s than 24 hours in dur ation. U Creatinine (test 108.5 mg/dL 29.0-226.0 The refer ence range code = 2161-8) listed is for first morning urine collection. U Prot/Creat (test 0.06 g/g <=0.14 code = 7805) [facility] CenterVitamin D [id number] 19:41:12 Test Item Value Reference Range Interpretation Comments Vitamin D 25 OH (test 20 ng/mL 30-100 L Refere nce Range: code = 21830-0) Deficiency: <=20 ng/mLInsufficie ncy: 21-29 ng/mLSufficienc y: 30-100 ng/mLPotential toxicity: >100 ng/mL Lab Interpretation (test Abnormal code = 18093-4) [facility] CenterVitamin D [id number] 19:41:12 Test Item Value Reference Range Interpretation Comments Vitamin D 25 OH (test 20 ng/mL 30-100 L Refere nce Range: code = 62860-1) Deficiency: <=20 ng/mLInsufficie ncy: 21-29 ng/mLSufficienc y: 30-100 ng/mLPotential toxicity: >100 ng/mL Lab Interpretation (test Abnormal code = 37064-5) [facility] Medical CenterRheumatoid Factor [id number] 19:25:42Rheumatoid Factor<10<=14 IU/mLUT [facility] HospitalRheumatoid Factor [id number] 19:25:42Rheumatoid Factor<10<=14 IU/mLUT [facility] HospitalFerritin [id number] 19:04:05 Test Item Value Reference Range Interpretation Comments Ferritin Lvl (test code = 2276-4) 7 ng/mL 13-150 L Lab Interpretation (test code = Abnormal 48469-1) [facility] CenterTransferrin with [id number] 18:53:56 Test Item Value Reference Range Interpretation Comments Transferrin (test code 283 mg/dL 200-360 = 3034-6) TIBC (test code = 396 See_Comment [Automate d message] 2500-7) The system [employer] generated this result transmitted ref erence range: 250 - 45 0 mcg/dL. The ref erence range was not u sed to interpret this result as normal/abnor mal. [facility] CenterIron [id number] 18:53:55 Test Item Value Reference Range Interpretation Comments Iron (test code = 20 See_Comment L [Automate d message] 2498-4) The system [employer] generated this result transmitted ref erence range: 37 - 145 mcg/dL. The ref erence range was not u sed to interpret this result as normal/abnor mal. Lab Interpretation (test Abnormal code = 97240-5) [facility] CenterDifferential2023-02-24 18:32:06 Test Item Value Reference Range Interpretation Comments Neutrophil % (test code 55.2 % 42.0-66.0 As p art of = 770-8) Differential performed at [facility], [address] [place] [address] [address]vd, [address], [place] [address] Lymphocyte % (test code 35.0 % 24.0-44.0 = 736-9) Monocyte % (test code = 7.1 % 2.0-7.0 H 5905-5) Eosinophil % (test code 1.8 % 1.0-4.0 = 713-8) Basophil % (test code = 0.6 % 0.0-1.0 706-2) IGRE % (test code = 0.3 % 0.0-0.4 IGRE % c ount includes 31484-5) Metamyelocytes, Myelocytes, and Promyelocytes. As part of Differe ntial performed at [facility], [address], [address], [place] [address] Neutrophil Abs (test 3.73 K/uL 1.70-7.30 code = 751-8) Lymphocyte Abs (test 2.36 K/uL 1.00-4.80 code = 731-0) Monocyte Abs (test code 0.48 K/uL 0.08-0.70 = 742-7) Eosinophil Abs (test 0.12 K/uL 0.04-0.40 code = 711-2) Basophil Abs (test code 0.04 K/uL 0.00-0.10 = 704-7) IG Abs (test code = 0.02 K/uL 0.00-0.04 21373-9) Lab Interpretation Abnormal (test code = 46996-1) [facility] Cancer [place].[id number] 18:32:04 Test Item Value Reference Range Interpretation Comments WBC (test code = 6.8 K/uL 4.0-11.0 6690-2) RBC (test code = 789-8) 4.79 See_Comment [Au tomated message] The system [employer] generated this result transmitted ref erence range: 4.00 - 5 .50 M/uL. The refer ence range was not u sed to interpret this result as normal/abnor mal. Hgb (test code = 718-7) 11.7 See_Comment L As p art of CBC or as an individual orderable testi ng performed at [facility] Journeyman Operator Assistant [facility], [address], [place] [address] [Automate d message] The sy stem which generated this result transmit ashanti reference range : 12.0 - 16.0 gm/dL. T he reference range was not used to int erpret this result as normal/abnormal . Hct (test code = 39.2 % 37.0-47.0 As part of CBC or as 4544-3) an individual orderable testi ng performed at [facility] Journeyman Operator Assistant [facility], [address], [place] [address] MCV (test code = 787-2) 82 fL 82-98 MCH (test code = 785-6) 24.4 pg 27.0-31.0 L MCHC (test code = 29.8 See_Comment L [Automate d message] 786-4) The system [employer] generated this result transmitted ref erence range: 31.0 - 3 6.0 gm/dL. The refe rence range was not u sed to interpret this result as normal/abnor mal. RDW-SD (test code = 57.1 fL 35.1-46.3 H 43422-0) RDW-CV (test code = 19.3 % 12.0-15.5 H 788-0) Platelet count (test 326 K/uL 140-440 As part of CBC or as code = 777-3) an individual orderable testi ng performed at [facility] Journeyman Operator Assistant [facility], [address], [facility] [place] [address] MPV (test code = 11.2 fL 4.0-10.4 H 34792-3) INRBC (test code = 0.0 % <=0.0 The INRBC (instrument 44958-3) NRBC) value ref lects the enumeration of nucleated red b lood cells contained in a 200uL sampleof whole blood analyzed by the instrument. Thi s value maydiffer from the NRBC value repo rted in a manual differential,wh ich is based on a 100 cell differential. A s part of CBC testing performed at [facility] Lab Journeyman Operator Assistant [address], [place] [address] Lab Interpretation Abnormal (test code = 14989-4) [facility] Cancer [place]Pathology Biopsy Interpretation 2022-11-11 21:24:32 Test Item Value Reference Range Interpretation Comments Submitted Clinical History n5eerHOoEMObq9zkOMO (test code = 81823) mbGFuZzEwMzNcZnRuYm pcdWMxIHtccnRmMVxzc 8AzJ7UyClDkBPvtshSd XGRlZmxhbmcxMDMzXGZ 0bmJqXHVjMVxkZWZmMH lzCe3jyUKwaMblBmOtC NLox9tpbbEPyjfovBr6 i7rhWQKhDcP3qYBpUEq vL7wilpSitIFtJNFsLF o8cW57QUPdhZ5ueQOnC VjqvnTkKoA2SMoyBZGj PpU7EGFwhCNnVADmK2v yZWQwXGdyZWVuMFxibH YbTUA8tHyru8N2kZIkb GVldHtcZjBcZnMyMiBO p3TaUEw7tQwuP9MdSDI lJtO0sYRyBEOpEQmyTT DqDXFjskQ7hF50EFzov bV9bINnm9Xde59br962 iE3yfGYiPUZ0QEXwNAT qvMMqEWKaUCE4NKLkuW WqV2ywYULrRN6hftmsA XvuFChvMCDnjHC6LDAb hNQsS4LvTJLzDUolOVX gttb1GcEhIf4xgAEbuF icERgag2ake0kwbJTjG ek2OSSvJhZzEmidXQzv b2Qkm0tvYKIvwu3gEMO 2lBOvrRzyg3P1aXOsPV IfwQXseaRzCMHuAdL4T MblDG5ldf11OZAeYON4 ir0tdVEkhHlvyeWuwIA hSLpiY7CcHBPgw950UJ ZtJ9EdIDLnf3T5wlTiU iDmNSIyyVN7yuV5LFKz QKf9iDCwryL4frEzlLL sI8pntY8oNBBnTV1mwj aql4hzUXliBWaiYGYsw FS9rmL5BBEgcNMiG0Or cQ9wPOMgIIzxEHWlhnt 8ZrIoDz6yjMItzIhkMY xzYmtwYWdlXHBnbmNvb nRccGduZGVjXHBsYWlu XHBsYWluXGYwXGZzMjR yjSxicWhxqZ1yZyGyIl DuUJfnFU3yGZFwI7cri ARtVBLlZTIiW8wwQcDq vN7lxYbjVDbwsdXbTIo vh37gHEXrdAIpZK3tzA RgrzEsqASyKK2rlTHxz Jxforvfv7Aat5HjW6nj tMHcAHlAPFIhDB7aoCp tjY0bGfNqBqNhWqisSI 9tTGKrG0cehKHkJTDgD WHhK9ipZcYgxD7knOpc VIxbjyHmDSBtdm79 Diagnosis (test code = 34) u4gbeSIgLSVsvLTjBHE wMlxhbnNpXHNwbHRwZ3 ZspbyoNSpqIY5mZV3qo GxhdHRveWVuXGRlZmYw w8ccj890jHVlb3pwNLH EgeewcHb8xAqsT76gd0 C3GgjvC0bhEPCkCUflG VOeRNahaBLvCQb9SBKw cGVydzEyMjQwXHBhcGV cqVL3CZJzWD5fkqonWA bdLSypLORjrdV5MOTxx XPiW8NjTCFrGQ0mavhm YPU0PWhnTFEhDOT8FkY gVGEys3Wwyze5ZvMzgC FyZFxwbGFpblxmczIwX DWpURTRQsPTCVg2blXq QKZgaB8dj6j1GAIhkoc naLdbHCbraH86TqHrS0 SvZHNlPGkoJH27pyTvC bFjwAZipJWoa9uemJQl tCNns7Bay0l8bUAvlgT oqKppmEYzZ4AhbFDaYY Lvd6niO3hcZPnmE50ez 9yyWjyehZ6zTI7pERJ3 xUTeczXvMK0qKPLtuMd hYyBkaXNlYXNlIGlkZW 50aWZpZWQuXHBhclxsa JZpoVygIEwjBXKjP8Hi AUQ1UAB5a76zI3yrMPZ aw6FgrXkywZBlDXehWl IwXGxpbjcyMFxjZjAgR wUjK75qhiFzCW2zNX32 fE58vQJmOpXsWZfmVN4 0F50iIPM2eQYrXM4utM NxtH7lV7ZprhLhT5vef 84cBhCxSZG6qzs0gDTs XZBblsUVshCnpsOkf9Q ennTlOQ0keBKdmRFegZ Nuo7JkYE8jjTncy2VnJ LdfBU86nHHvOZFkRAhv TeCHZET5RQirST2bzZN uFMgwDJmoxG2eGBGxkh yaPxXrDkkwG7HlwP9iY VTij1XeaHahrFTrOLcd NzIwXGxpbjcyMFxjZjA bB86rj91oKyRvaGQfw1 Vhs2y1eKGpMCUszHc7J GHymY2yvC5kARFbN1zw ZWdhdGUuXHBhciBObyB xcORluMPhtZYsi1RqU4 HfX5xys71aGSouGT29m WZpZWQuXHBhclxwYXJc lLirDLawrzKjC2ZuWJT 4VDDlX0Q0nYvribEcsK UdEUSqsLhkWYPnr9o7e AKcrM6sfPeogEOrJGfm NzIwXGxpbjcyMFxjZjA yKUMxmUftpflfbV32mn QsCGIay77vDCSpa89xb DT7SMx9OGO9L1uuKRQo XNndelDcBy5rkBzofD7 ncmFkZSBkeXNwbGFzaW Xop5NgT2NtQ0uuv72eY KzvSB61aXRuXPLeIXUb clxwYXJccGFyZFxwYXJ 9 Gross Description (test n4dfsAQdSLLjbBJXHZL code = [id number]) qPQTkMP4mfZpjsZz6wS ouAFLzmmC9aPVfWQqlp 2rzJUT0u4pozcFFZlwx VYFuAB8bSSmnYEHzMN9 nZmUwXGRlZmYxXHBhcG VydzEyMjQwXHBhcGVya BL7LJNsLQ8rbalbXMcj RQaoIQYopaG4GCPkfEE fK9WqJAQrFF5rkdzxLT Z4PLKVAbasEv5peUYmi HtcZjFcZmNoYXJzZXQw WMAhcCivHVNyCSd3nQ0 XGprkG13ap8T8Lia6GL WnBCJtP2IkCC4gIZNoy AHoR54CCigzEAM9NCDT JrknKhakmFwzh8TykSH cXHNnIFxcaWQgNTEwMD AgXFxkYiBPVlIgIiAxM Nc9Zge5WyH7LIk0AFHV QTQtXoG3XpN9IkN5KEb 1ZRBlEP5gOLtabTYdWG nfNllyCYkqS773AFjdT PVuT4DlS2WhNPrfXbMf XGlkIDUxMDAyIFxcZGI eA3JKPVPnMDZ0PeL1Rh EtCJg3VMcnA7ZPCFOaM AE2Ocd7HeLrWfX4BDl5 VJBOQd0wYBR5CpNmCTR tCSG1ZKVrKcWpFWNbTi BcXHNzIDMgXFxmbCBcX E0ziKuzJFXgSD2OLHDt YWluXGJcZnMyMCBBOlx wYXIgDQpccGFyZCANCl xwbGFpblxiXGZzMjBcc YzahQ4lyFAqV5aaQhBl MlxlcGljTmVzdERvYzE gDQpcbHRycGFyXGxpbj BccmluMFxzYTMwXGVwa FHFx0GsKPNNYxewHUXv MVxmczIwIEplanVudW0 iZCzeqiWhjK24JBApPS EaUOAuIaGol1R2KIFtg bT4yEFosXKqKtApI51z tjXpJENcMvYaQ67hTG3 nLQUjRRNucCgkGX40hQ CuzBfqr2UyxFd8cZEsB HxnPZXsDeVpUYSms2Dm T5D2KDIiDOjfr8yhSDQ mPXgly3JeTDxXCYIAGW 3SSC1quVO7PPlAD9XTO 3yChRPqLDX0cWL0HIZP DcsewEM5qSO1oU52JAN sPGSarFNmZNxrB318WP Z2HSRlAKoan1bfNSNgH Ovnq0EnXGgQTAWCTT0S FI2fqKQ4TEsYU1SLDAd gAJWiErphoCXSKQI0NL oyuOyxdCp8c9qtcBMni 3b4PJrxMCV3wUhynZFy blxsdHJjaFxmczIwIA0 KXHNhMFxlcGljWHNhMC ANClxlcGljTmVzdERvY zU6DRBmgIYoWWQ6HR5i oNcfOXZwHYe8VXhwSAT uL9MmL4LiRNhgXzSzMI lkIDUxMDAyIFxcZGIgT 9FEAHRuMDH5MtF8WjAa XRf9VMmnA0ODROPoBFX 9Dcc8SmT2KpI2VEq4JA HWQe8rPNV4PvCpCNH3F wF9EVHhRaReNPKcUcEp XHNzIDMgXFxmbCBcXG5 jfVxzYjEwNVxlcGljWH TlRXL0JP4FGGWgPiAcQ idstqUgOKY4NIOmkfDG QnwoOSQwLD6SJFIhWAn nJBc7xsVgDGCpQyCbEU xiMFxmczIyXGVwaWNOZ SM8YS9nXRSNSrdpePRl BZPogEeiQFgmaH6qKLU nZqOmPJZgI7ogCeTaOA IwNhRcYWQsV4qwGGWpN W2SMHDoB5FyNFDtFaNh C9TygWNieHwxn6FlmXH euRisEgCxS9CiUYPjGW QtNhDzhTOtZAAqh6Y8M RKxnrWacHQjoQsgPI89 IGNtLCBlbnRpcmVseSB sdQVwbTP8KTHivA7nHu EuICBccHJvdGVjdHtcZ kumbBE4ZYtrRfqfbG5y dCBIWVBFUkxJTksgbmF wHH6XSH6APvXSOC43Ru LxWTN0KWjYE7MZdMK9W ei6IEt7rPuoTvqnbqUr fZJsOlPNxK4EHDraKzh nkFU3EIuyVnpumN0lbV BIWVBFUkxJTksgbmFtZ I9YKF9MLH9FvBWxKIA9 wTZ3FUFDDvwthRH5gRH 8sR40BMErHEFcbGNxCI vkH230QLRaAJpuDAf4n mNoXGZzMjAgDQpccGFy ZFxsdHJwYXJcbGluMFx swX9tUV4LLZTskTAEUF T9JT5nIPcfKZUrL1VeH 4LfxyV3ARFafrEMHfuv TdzikAtto3SgeWYmKZM nIFxcaWQgNTEwMDIgXF mzAnUILiZtKvEeEJz6U dk2NnL9FNp6WAXCWoYb IvFePUYpOxj1HGBkSTc 0CZk1SZuOCjDdFrO8JX HyRrT6KBF0OLCsCThxk MRxPDrua4UjPcYhLGZn VOanprC9KLMxFSU2SXM hsCYJr7ByKPPiKCeaVu MyMlxiXGZzMjAgQzpcc AAnBY3GPCHxihMrCZqy eBrxtK0smZLvE5aeBwf mczIwXGIwXGZzMjJcZX ClD47um1LVu5GjBJ9JT Vt1gkNnkaabfS9wRCCe mvKkg1WbHIixbEuuJSE gYsWns8GrFOrmgFbeEK NhMzAgDQpcYlxjZjFcZ tPzNVYWXVQ2iNwuOroz xFN6QTJnUFNrqUGudVw mIlWcY4HaBKEfRLMzBa SddGOkJXOdz6C4GFXjp gAvnIBedQbyIC97JSBh LCBlbnRpcmVseSBzdWJ vwFR6PSBcqP0fTiBxXA BccHJvdGVjdHtcZmllb MX7ULmsEqbbgE3fnTLE WVBFUkxJTksgbmFtZT1 FXV7IMsJZBU10YaWfZL M1XNnCO2RLlBJ4Wzb2E La8tQefJmjbvpBqsCZp ObMXvE8PDWjwIwtqkCV 7TZysKqsumD1eoHJWDH UJCoaTFndjgmPyZI6NX Z5ESS9KrVSoPNK3kEI1 CNPXZhzhtLV6hCA1xH2 0AOOoFIAxgSIgICvtM1 73NRFuJQuwUHq6jvGqC GZzMjAgDQpccGFyZFxs dHJwYXJcbGluMFxyaW4 uXQ7MVZDxsYZUUKJ4EA 3cPEncPYOtF6GuN8Cwx yB6UPOnekIBVugyFasg cDeoa6AzrMMxHYMdGPo caWQgNTEwMDIgXFxkYi MKWcFzTgKzOCm8Hqh1R tL0LJm3ZSUKMoAuXwSz CMEpOzy4WHYwJJe1GJm 3RFsWPxEnYtQ5UJQrNQ P1EWQ8IWHwAEzcoAUoN Vaqp5DkGeNcRMNpRHsl crC2WWZtWEI7ZXPipDM Zg7MuIKFySZcwDoLrEl xiXGZzMjAgRDpccGFyI Y1WYLWmcwFyFWaawQfx dM9veEZnX4ggKalsanQ wXGIwXGZzMjJcZXBpY0 1dx0MBd8KxZK8PSYd9s fBlokjhrA8rNAEuskEa s6MlNSnuhQpmKULbRvG cb8OzLAtyqSatDODtOn AgDQpcYlxjZjFcZnMyM QQZSRY8cR8aIRAgN2Ag sPDsu3a2jOxxYdLgK7O oKZDLWUNowGlwq1aeSR W7VO6sFlRtq53eiHnlr 4UpUUOjBNdoKM30YRAl LjkgeCAwLjkgeCAwLjY tV34wd4o4rNUfQDItKU E7LURpRZJfhRFuwRZuk e6dFHNlGXQgNCXaJWbf OVzez9ViOBWdTNTbOYl ahKExBMN1cZ4xDSKuFG ZziLgvQIs0OVA5Ig7lt FKhLWJdpbNTOP0LTi0e RLnhot17SRO7k7tbiHX gHIxdEifirBQqjmG7FB tILLPFAImYUmCrUF5gB UxJTktCRUdJTnwyMTAx GyrbeXVMXHU7RLshkGk dgYw1k3eujVSrm8z1CL hcQST0iEOGs1piaPInU DlyEzjjaZFvdhC0KGqJ QTBMHZtDYiOiHI6cJVj SDddIYoP0DnHdOLZ2CI xPL6GGgWZ3Zyo5VFx7n XtcZmxkcnNsdCBcJzFD eQ7rxCzgfX2ijBInL9w cZnMyMCANClxwYXJkXG f4ekTwmgwhxC0yPSToq iXjQHvdILOeD08ca2FW h2Gjk2cptTmde8KryFO rMP02OHHwhORpQNA1TJ 5kfVxwYXIgDQpcZnMyM iANCn0= Disclaimer (test code = l0bfiGWcEAAiuEMzQkC 9844) jWTIkIYUiy2xpXVAkfQ FuZzEwMzNcZnRuYmpcd SCwLTFzIrEyk6nas158 yIUjy3ryBCIqNlS5vHE vFDRaeTMnY321PSGxIK tmn3cmt5QbKZMpsYAro 0E9UYPNclrcmWk1tYqu E70it9Q4CrtbX2jxGSD jEDMrB8GgRL8xSGLtFn v6SYD3FJO6KJXiOZQrM 9XuVJ7bRVZerVJvZMv7 n9bahZlgYCLgEVQ1s1w cWPdfurLxGX9crb8cwQ q9j3lqawGeWKTlJQRwh XUGXKCdL1GfzInaCc7q aWq5xBtsSfbbMAU1Roa 6FK4xjq85mbh7gMrfJA ZoomeeAhO5EUyuFCPbi ztxUOp5MOshTEGcsKN6 XDIpeDCrI1NeFLGwTO1 wcpo6BVK5XZvkJVJnTz L9QWEvwXVyKDBzkNeqS Dwvx578DKR5SjImRC7r Y4Kjc8B2kK2dnTEdEFE bhFPeQvLeTSZaja1xwH BiOSxhs8YkJVV5mhA0w OQbhWGgHNIgAK66Yjor y6UdTbxhBTL8DFVnmtU ju6Mqf7daVzTgezWtS3 jnT8KkVLQtBKFdFKCjT dIucrHml1Vet0ZzxTBk gGd0v1pmPGJlLEDpeFy ny9ncBMJ9KNVqH2O6tH Yku0qrMZibPWYgeRE4h jJ5FWEgoXOjX1GvwB4r GWGaSC6snjp9k1jeFMM 6SGneMTFfIlO5abD1JZ BcaGVhZGVyeTcyMFxmb 464WVT2ApSxWJCoj4Kw S7AceWwoY89xvKrdU15 mWJTuyIzawP2zrJfsbF 5cZjBcZnMyNFxxbFxwb OGwgmwsILgyuuE5TEmr icctTJKlJIkdR0soRzA cVKZagWwiURpzi5UgSK LnJIYbVzunipY7CBHBj 53bUDJyr0NqTLSixZ3c xNAnFHjlumIluMJ8BPe hdmUgYmVlbiBkZXZlbG 4uPXVoDN0iPEAvoqWwz y7ankZyGDRbSIEsF7Nx cmlzdGljcyBkZXRlcm1 cqoPbDVV1WJXCSQ4VOY BoIFFfi29qJRIhmArcs S9skKUyacPjZBWjx8Mg lA4enDMVNCTkO3yyGX0 mDHjhs6RtzZHpvMNnuX Q2PFDxt1VpWxVdzpJjn CXbhGWzQ6ZalLxzQ0ey NPIgVHLsioQkeSQkt5E jUFScoFA7cDSdSZ0FKj GPu64iEFSwQNEFrlTuS YIsoZszqYM2azK7iJ9u LiBJZiBhcHBsaWNhYmx tJNMkt075kl0ohhM5MG GyDXXmrmaag9TuIUTiF UTbnX34JABsDOFzyr9x ombzxSJqeaWiI8Fyalh 0jV0qPTOeSYwrMPPlQO ZzMjJcbGFuZzEwMzNca GljaFxmMVxkYmNoXGYx VRjuQ6xbQxQpGhEsWrj wYXJ9 [facility] Biopsy Interpretation 2022-11-11 21:24:32 Test Item Value Reference Range Interpretation Comments Submitted Clinical History e7dtqAMuBTJbs5zaZKP (test code = 86783) mbGFuZzEwMzNcZnRuYm pcdWMxIHtccnRmMVxzc 0WuF9XqEkMrXFwftnVs XGRlZmxhbmcxMDMzXGZ 0bmJqXHVjMVxkZWZmMH euTe9xyATxuThbNhRiZ DHjc3gipgNLjdwhnAg9 t2kbRYNaRfU7sDDhQNk dS2yrfsNmsZDjHNAbFV t0iW09PTMulK6icOPpR GfeujBmTbP6GZmkBQNc PeG5TZOjtROaCCZrC8u yZWQwXGdyZWVuMFxibH MlATR3mRxie8F0cUFue GVldHtcZjBcZnMyMiBO l2RfMXo7oLvaI8HwADH bQrI2fBLcFLNlDGzxIX UkJGOdgwA1kF79WBrmd fC4bXJig7Uno58dl707 hY2dsXHdWNP5FVLiOOS jjPBgHAQqQDV4TLPzjK MtH3cfJDKrIY2yxastB KkeUYffWUYcvYB0QSGh pWYgH2ZsKWRcOAxoEFI hftn5QwBfNa6iqZWiwU ucRKggb5rog4yyaOVgU xi5QWBfFaOyQzybGTou u3Bvg9xzLOKeag7lULB 1qRNmqLbsa2Q3aLKvIV JccTJmkiDgCEJaPaA7Q SalNM8ize70FUYnJXF1 xq9dzXLzqFqhxtMekSA qXXtrC6ZcZMFak101RV FtU8JuYAKbt1J6lnGeM mYrCXGjgZV4lnX9CWDw ZBj2iXDzsiE3fxShiIP bZ7zneU9nKJEkYM0flg yck1liAKqhDRyuTGMuo BR2iuT1RVRxiWBbS2Ol kP9hTFMyPZxcNDVpvmu 9OrJtVx3lbMSxsMutFE xzYmtwYWdlXHBnbmNvb nRccGduZGVjXHBsYWlu XHBsYWluXGYwXGZzMjR rzBkxvOsoyG2gYmZbXy TjHLtyYO3aAMHaR2hfa EMxSGSwFDGyY9ifRpXo yR3wyQxrMQphruKgBGq fi09jSFQknLHnGI1vuH ZknlXppLAlXV8gfZAsf Vyxcrzfu1Imz0AeT2ht jRJjHJuBIHLxSW1tcSk sbG5rDgKxLpYuNmqrOW 1vTCJdH6bplJYfWETnL FVuQ2zdYzOxbH8daBpi SZutmbRzCPKheb93 Diagnosis (test code = 34) q0ldoPEbSWTzvVZgFRP wMlxhbnNpXHNwbHRwZ3 UdwqwvVEsqEN4jFY3rz GxhdHRveWVuXGRlZmYw o4xhi411jVMor7llDTG HkpqwaQg8kCygQ08yg2 X8NgpeX2llBGZzPVepA EOvKImdvEZqRCm9SXZa cGVydzEyMjQwXHBhcGV ybTO7HOIyEE0brxocNM lxGTcxEQRrarS8NFZjd JBlK8EwSLQrUG8gbaqy XEM1ORahOVLxBSS5BtX eBLRhc2Xtdrc7AcUhxO FyZFxwbGFpblxmczIwX PDmQONMWgQILCy4edBt FWLtyJ7yf3v4DEAwhpc bqXquLTaaiP44ZjVjC1 ErSDMeWDwkXF39xuNgL oOwsFHikDRlg6duySPs hBNvt6Hka1s7dPKodsQ ktOkstZFdB5MbyQPhTK Afk4itU6ktPRmcW69hz 7ctCdqucM0zMZ7pDRM3 aTWdzxKnHH0sATEmePr hYyBkaXNlYXNlIGlkZW 50aWZpZWQuXHBhclxsa JTgcRoyIMikXYOmI7Uw BLP0ZRL5z64cY9fgWEE jm8VwiRdedUKwISofTl IwXGxpbjcyMFxjZjAgR xNkJ71eejTcXV9qPD10 eV84pGOoVcXgNRxzUR2 5V46bXWD2vMKoGA7rjM IeyY0nL8VhdkVhC4ztn 34yViKvMNZ8bpb7pZFw BXSoctRRpsOtpqHxf7U gsqMdZI5vdIQnvZKmcL Aro3DsKU0cjUbjh6PhO OlhEE45eHHxRWOpTUnh JgBPQPW8CYgmSS7cuPT bOItlTNanlN6pXMHsgq mnXtLbHthjR8KoyJ8aC KPmy7IbgVabkOVcSRpj NzIwXGxpbjcyMFxjZjA gE42jl91dLvEgjLOvc1 Xik2b2eZEwLLWsdJq7W IEmhV4meO6oERNzJ3gj ZWdhdGUuXHBhciBObyB lpPFwwWXegKQbf7AgX0 ZdF3jpv12rQIeuNC31t WZpZWQuXHBhclxwYXJc rLsmKLumowSmM6LbAQI 7OQCwX9U0cYlgubKwzE BdLLGceZylAPUrm8k0k NCyhP1nnXouaLGlIBxx NzIwXGxpbjcyMFxjZjA vHVZteUayfrzdzR90lc VbXMXwf62vQDZeg62in QU9NMu4DIO2U7ikOSCf SClpnqMaDu2dbSnqpA1 ncmFkZSBkeXNwbGFzaW Zwh3UrU4SsZ1fpd84fM KdeQM95gWCqFFHjQXUx clxwYXJccGFyZFxwYXJ 9 Gross Description (test a6pgvNJhLHXqlAVJOYV code = [id number]) qGMGqKP7chLsdzAb6fI ptGJFihdH0vMWwPZadv 6unSBE8h5xtexSNWzvf AAVmIV9zHNfkAFDjRG3 nZmUwXGRlZmYxXHBhcG VydzEyMjQwXHBhcGVya WT6UKAiFO2kbfjpZNeq KHwxBNMsqeH7QNXemFI mU0OxHJBdGU3cecsyFC P1KYRRVdslJd3jvTIww HtcZjFcZmNoYXJzZXQw JAGwfUorEXLdQMo7yD5 NVteuI84lg6W6Lko1YJ VaUQEmU8VlQB8pJGZnm JGwQ62MCsobQEX3EYLK QyvjInvgfElji1QvgBR cXHNnIFxcaWQgNTEwMD AgXFxkYiBPVlIgIiAxM Is9Lkk0FvW8LYj6HNRP KUWnIsW3HnV3FbB1PQq 1XPWaVY9pVUcjgEYwJF kbLpuiBAvzF134YPzyU BNxF3YsO8VdEFvpZoNh XGlkIDUxMDAyIFxcZGI nT8VDTTXoHGI1FaJ6Kz KzDCf3PTjqN7XBBGIdB AB6Zmx5LsCiXiX7LSj3 XQOOAn8lRAZ6VmFmBMX wTYF4BGOxDwSoLJZfTg BcXHNzIDMgXFxmbCBcX J2ugFwaZLNpRN6PWXMd YWluXGJcZnMyMCBBOlx wYXIgDQpccGFyZCANCl xwbGFpblxiXGZzMjBcc HiujD7itRCeB3bmYmAt MlxlcGljTmVzdERvYzE gDQpcbHRycGFyXGxpbj BccmluMFxzYTMwXGVwa DFUv3OcEODWQjtgWMMx MVxmczIwIEplanVudW0 fQQxvwqOedD85LRXpHO CsLKIdCkJyg0P1TBKhw nD0lMIvoGQmZaEnJ48a lvDqJJOwElVuP75jAQ3 hWYIkUQMdpJouDU96eQ NppGwyh3BtkNn2zODuU NnrPQXxJcStSIExt3It Z8Y6SKLuKSukm3emYOY fRZhmc9HqNCxBINUGKW 1APK2fdMW9TXaFD9ZTK 7xRsFCmCWY7zXI8DJDQ ZfbpgBQ2fSC3cF91ZJF rFIVevKJuCNqgC235TM Q7AOCxSJtcf0eiJYWtA Ngai3DhYFnUUYCVOG6E ZP1efQO6CItVS8DMHZo iMZWpVnrgeLPOOYI6WD nnrChvhZt0d1yjqJOmp 3z6XFenVOI2nXycsAUt blxsdHJjaFxmczIwIA0 KXHNhMFxlcGljWHNhMC ANClxlcGljTmVzdERvY aL4YSIyqXUpCTY4AG5j fNtwWDMmIId2ENmsURZ aF0LzX4FcXBfpAtMzPI lkIDUxMDAyIFxcZGIgT 4FHQPWcYCI7DaX3TmDy ZWe4MQabC8IMXIQoDRF 6Nnh4CqG8CcK4YPi3XB EFKt0aETS1IwQdCYL1M tR3VEHkUsOwGCGwUvSi XHNzIDMgXFxmbCBcXG5 jfVxzYjEwNVxlcGljWH UcHBJ2VZ8HHCEsUwWwV kvuhvFtWXE6ZIQdqqCP RjpjCCSbFC0EEDOpUMj xZSc6pbCaMQFgLcXtLT xiMFxmczIyXGVwaWNOZ GH7MO8pAJDGZowxsPFv MEGyrGrwTWpmwO7lTUK xEcKwOJJdF1jaMhDlLO DhSlYpXYZyE8kmUCJtX H5YLXDnK7NxCBMrMpMs Y4QngTUyiFixp0RyvAR idLdiJlAxD6UdOQYpHY FbLjAljDDpTBQpx9W2W NZbglLbjGNfeZeqNW87 IGNtLCBlbnRpcmVseSB wpOEhlVT0SVIniA8nGw EuICBccHJvdGVjdHtcZ tbctQS5TXmhRipacL4x dCBIWVBFUkxJTksgbmF sAP9AMA1KLyNSTY94Yd JdFZW1IDtRC1EHbID1M jx0HZa5oWvxLnxrhsZi yMCxDaCDgO3VUNngKrn gyQJ7HQzlPhdcbZ9xsR BIWVBFUkxJTksgbmFtZ V9OPQ6JKM8EcRGbDER4 oNS9RKUUZxigeGB8eGZ 7qW00GSIxNIQtuOAwFP oaH937UKGhINnlTTm0t mNoXGZzMjAgDQpccGFy ZFxsdHJwYXJcbGluMFx zcC9kSN7IFUCouRYQYW J9RB4sYBktFGIiK3AwY 4BwkpP8ZNFeukKSLmxr XozquRoeo0BnvJPvXAU nIFxcaWQgNTEwMDIgXF heMbZZNvWhLrKrJCu7H gn0RmS5XGh2LCQOArKg FkFsXOCrUfj1HIOiZIk 8KZx8CSrAZrHzGlN9AY XjDgP9GSJ3TSRvTOkwh HLbNNwzj9HcZnPwAXKk XIetksQ5EXHuZWG3XQV aaBXKj2MdVGLhMEmaNw MyMlxiXGZzMjAgQzpcc FNnUC7ILZNcczPwXJwa dCtwgN9maCUdK9fiJac mczIwXGIwXGZzMjJcZX YlB54sl2ALi1RfXO1CW Kq6akSuxfuxzH4iACAo suEtq8RdADrcgBauURR pXmAxg1UyHTcwiJiiPV NhMzAgDQpcYlxjZjFcZ pZeMPRAPXM5dBuaDkqy sUA0NOQtESCxqWExjNa uZeCtU9QzGFDhNXLdEc SltOOyKXSuh0N2MLKpp xFyoXIjfYyjNC47CSIm LCBlbnRpcmVseSBzdWJ qlOV0NAHbnX0dTeSzVF BccHJvdGVjdHtcZmllb ZK3LJzlNzxoqO9bkDUP WVBFUkxJTksgbmFtZT1 QTG4CLoMUYH76GnRfVE C1TPqPG4XKmVM4Oum0Z Lb3mSdlRoenrtAiaLFw LlBAfX2QRLfyKimnqNK 0ZExrTvgzgB2zhUKFWI XUNatVVsnsehApHD7QI X5MQV2LkRRpNTQ4fIU0 VHYELgpvoOY9sIN1oR6 1BNZbUZAxoBFgIIjeH1 04YJZqUHmoWMj7lmGiK GZzMjAgDQpccGFyZFxs dHJwYXJcbGluMFxyaW4 jQD0ZNXMopFFTUVB3TX 3kVShaFOWpK2KoG3Rcx pU2URCcfdSLChreTxbz lDvnz2PjkVAuHZSsPNj caWQgNTEwMDIgXFxkYi ZDYdOnJxQcJYg4Ltv1Z fQ8OEl3AFOMKlQmQwEg WEYuRfx6BUEfTPm8QMt 3CAhJJzZgPfA4UQFcWS J3CMW9COMqHEadhSFoL Nztn7WqGmKeANWuDQxe mgS3CGHvQOO0FXRrlZZ Sl6SbNJIvEIjqCiRbQi xiXGZzMjAgRDpccGFyI C1BIMPhdhUhWFcedSuf yM2ntWVmT6svNjxnkuW wXGIwXGZzMjJcZXBpY0 7zm3PQa8OzXT6RTXf0q nEtzbrtyI6iOCBlihYq g1CyLDiruJzgDIGkUfJ ia7BtHVbfrWveIEQeBu AgDQpcYlxjZjFcZnMyM IWKCHP7lU1lXSGpL5En rWVof8n1kIdpJiGvI2O oBJHOHYByfDyca7qnBC M7FZ6fFoRcq72whLrlc 0UvXELvRSikOD33ZPMg LjkgeCAwLjkgeCAwLjY yN86xu8g7fJGwVXDtRQ O6XUGzWOQhqLLxpMRtm k5hAOBsQKUnPQKmUDjf HWrsu9QxAITzCQHtUNi ewMRaIEQ9mB4bAOKxQJ MbtZjbSPv5LRE8Sd0hn LHoPRNbzpINZG1ZDu4y LPwoic81KUE0f0akfCX hUTjbFxloyDEmwsO4OR fQYCEWCSaCKeChWD4wA UxJTktCRUdJTnwyMTAx OxcjpYXHKYS4AUhedSk qaMv8v8vzrZLzq0b6XU lmSQJ8aGJIl3nsnQUcI LslOjdiwIFizmC2QTjH UWRFXHvNJvQgRC7rBOc MArzJOoB7WlOxISN9YE pXV2KKiOJ6Oua6PIz9t XtcZmxkcnNsdCBcJzFD xM7vmTvblZ5bxWJiJ7g cZnMyMCANClxwYXJkXG t7yfTtgypgyD5vZHJkv fStWFqtATAhH89om4UL v8Rmf2sglRbep1MrbAC aSQ40UXEctPRdROO3BP 5kfVxwYXIgDQpcZnMyM iANCn0= Disclaimer (test code = n2imnUQbVBZflONfIaQ 9844) rEZVtUNCjm8cyOZMzmD FuZzEwMzNcZnRuYmpcd TJpZCEoRhCul1czp915 qOPku0cvLQLyUzW2eCS oUQVydEWbT521KUJjZL mbk7kvp6LwFNKxrBMmz 4B2LTQGboijxOa5qFnt N81yv2U3EthzR0dsXEX hEFRqA3OgWH4qIRKkSa e9AFD9YOQ2ETSmLXBgI 0XyAU5pWEWayQEtHBe9 b1uwoOayHMPqNNM8q5g rVEdqvyNuJS8jly4gdJ h4p6aidbCjUKKsWYHhu BJHJUXzM4LanNkpFu2h rQv3fTwtKcmoBKV1Bbn 0FW5fdg57ilw0vBubDT KbshkwHqS0FLonRZTtr ojdLGw7HSkaJEBykJN1 UIVuzVYnS5EaRTQgYW5 dpfn8KYE3JDvqOMQzSe S4GJMxbXMrWANexPmdL Geps504EMK0VkYnED5d T3Mnn5D3mF8jdWRdCVN kdZSdPmEaHIQwde7qlE BkWSmcs7WhDGK0rrM5n ZZkwEWvGMGeDI50Wjeg z2TsZgaqENU6WWDtstR ke0Hfm7tdBrPfjiPmS0 rrF2LiYXGeLIEjFNJaH mHwpfKhb1Ehd2KexMEt yCa9l9shCIDwXLJldRh lh8feZDX5UEBgI0E1vJ Auk1qnTXbnDOYvtKP4m hC5ZZTheSNeT4CjwM3e DBQhNH0rmco1v9vfGPM 3MCwbREPkDhZ6eiW9AQ BcaGVhZGVyeTcyMFxmb 497RKN9OlPkSIIfu8Kl Y6SkgVidY42glSnzN76 qUIXtxNgwpQ9puPsgfI 5cZjBcZnMyNFxxbFxwb KRvlqxhTLikldH1NGah agkxNQQoLTojG6uiFbY qUXCibJzuMLmlc3KvHA QuNQEjYcpqgyN4VECWi 61sETLux2LpSXBbyD2z lCXrDSpwrbDbcXE5DYk hdmUgYmVlbiBkZXZlbG 6jQQSsXZ2fGHUdpmLhr h0ucbGjCXYeMREfO7Cf cmlzdGljcyBkZXRlcm1 vkcMcDRD5OJGECV5GWC XbBXPiy70rDEQfwEtst X7jqZTfviAeVEWam3Vv qE8bwGNEPQFeI9pjXQ4 uXCmyt9YxcTRdvAHnrM M8ANCxc1MlFhPvseQrb LDjpGKsX8LevLtxU8zc NEEdSPGhlmEfeLCiv3Z nTSCwrJT9pKKeCV8KLu PTb25tVDXvDFMUhkOgD LHgmPwxsFF2olK7dP0d LiBJZiBhcHBsaWNhYmx uKZMgb783rd3uayC7FK YaZRTpedvom2BbMIUkI BFueR11JTBxVBJvwd5j lozxoUYyhhYxY4Ycpvi 3sP9zOTVnAMocSBBkDU ZzMjJcbGFuZzEwMzNca GljaFxmMVxkYmNoXGYx HHnsN7zkXoVtXcRrIim wYXJ9 [facility] Biopsy Interpretation 2022-11-11 21:24:32 Test Item Value Reference Range Interpretation Comments Submitted Clinical History v6mlwIDsISTpe1zuJJY (test code = 78362) mbGFuZzEwMzNcZnRuYm pcdWMxIHtccnRmMVxzc 9WlD0XbErBwSOhdokVk XGRlZmxhbmcxMDMzXGZ 0bmJqXHVjMVxkZWZmMH wkZo0xwAKeyNodQaMwA XBtr1uredOHfinmxRh4 t8bvMQWvKgW3qFWlCNf uS9rxewQpoROoUFNrWR g4mG68JWKstK1uhJKmH IfdmcOtQrX1IZueJOBj NmH6YWTrpXTjYTOaT3l yZWQwXGdyZWVuMFxibH TnYGC3sGwfb0O8tBTmc GVldHtcZjBcZnMyMiBO g9GjZUn0iNykS6RcFYM kLrI5hGFoXLGgYHupYI BeNICrpeQ3zS90REwjc rP4rCQvx0Gvq91qz452 vH7goGElBCI2JWVzUBM esMUsSGQtADI6XJWxpW TjF2urVIQbSP2luscqS SceHHowXJMjcSB4FRXb yTDpI2JhARFsRLtfUYN edud1GhWiNe5qkDSteO cvQPfjr3lct1ncgKXhR ha0CSWvIkZwQudiKQrb p3Tha6nyJOAiui3mTET 0lOUktHasj9J2qFDcUP ZupJHuyuZeCTTsWzT5A OzxAC9mdw71RRBdHLJ0 af5qgOPnuIevgjKpiKN iLUkaR0HzTJRvt198VP BsP2JhVKPrw6T0meJhA pTxQYNisAJ0aaF4RLNz CHz9lCMdmdN9cfOplZX vT5sngI8sMQHiXC9dtx gay1rhITgpGLkdWRItd FN9ziU8AZEdpRNwB6Pa xZ8qOMSpDFktCRAmaky 9ZwItKz4owCMydWyxJQ xzYmtwYWdlXHBnbmNvb nRccGduZGVjXHBsYWlu XHBsYWluXGYwXGZzMjR ddLxloLfumG2fWpZxUc LiEPlxLA4tRDIkB5gky LGkDDWkFKYtS1lwAuSy yH6hsVjqQVchwrOmICe hz43yLUXjiIJhOT1duH MksbWqtTTiRO5roTFdb Iuiajtua7Tbx3AjT2ev eGDrNWgSBMDmPC7nuRm wtS7pSaBzIuJbHrojHF 0lMUMdZ0jceNHlWEPkF ULmH1enYiUjgT4ucAhh AUuoqwDfRMFhxk82 Diagnosis (test code = 34) u7aihJPiXGIsdLUpLFM wMlxhbnNpXHNwbHRwZ3 IimlvsBZvsRE1pDC0xk GxhdHRveWVuXGRlZmYw l9qxe219iFZyi0taNIU SzxrkuKs4eLonI28va2 J9UmxgG3dfREMpLCqoW QGkMCxmrQLtWIi5TWJu cGVydzEyMjQwXHBhcGV vfWC1IFPdTR0bjpvhQL zqVHgjCBEjwsN2MVNqm KQqG7DnXJSmDP7iwvzh OMM8IIdsDFFnEOA5LyG lVJXmg3Tkvkj0RiXjzR FyZFxwbGFpblxmczIwX CXrNSDPPxLRPVe0pnVv UCCidC3pl2g4MODchng ryDsbTEwvpP67IqZxE9 YqTVEtVVdcTH51tqCxQ kOktOIvgLDjk4nblDYg kALnw9Wpj0q2qANrvbJ urEpckQGvQ1GcwCTjSH Yzo3uiO6ybLGnqP32bz 2ksCofuoS2mXG7qNCX1 yFOlpcPqTO0uXEKxzCa hYyBkaXNlYXNlIGlkZW 50aWZpZWQuXHBhclxsa SRgnQviUCwvWQQzL2Hp LTU5EHB4w79sO4yqCYU py5WjjJftkPWiOLjsOy IwXGxpbjcyMFxjZjAgR uQtD13iqjJaFV5pZR10 tI28jQEpFbXuENscBP6 9Z81pLWF3fTXmNQ3raM MomM5pV5CacwJfL4hnd 16lGnJaOSC3krv3yXTe TYYtdbBDvnZblgYfj9X mxxEkIA3rtZIrsAIugO Zrv9OmOL4slBacs2UsO AhgXY62zXGeWCZoILnb WwWISMZ3IMdqBS9mgXB cMDusBSzkjW9zWGHzch neElLoXtwuL6KlmO7cR AEwc0KxcKadxNTiKIkl NzIwXGxpbjcyMFxjZjA wG68mo98sCzBrfJFtt5 Icv3g2yAEhFLAkjUv4I TRkhH5bsE4iYWLzK4kw ZWdhdGUuXHBhciBObyB enDQdaUGdbKKja5JnE7 NqV4dqv02xQZiiWW30p WZpZWQuXHBhclxwYXJc dMxhNBnmaaPfU1HnPNW 3ABRaK3R4lXestaNqbK CdCUCofZwlJUEeo7a2o BHkzG5okPsegAYxQCmm NzIwXGxpbjcyMFxjZjA cHWRpmGxuubsjeE39oz DaBVCiz17cDKAil25pi WS9GFi1WAQ1A2ugCQLn OYparwPnZl0nyNcayN1 ncmFkZSBkeXNwbGFzaW Mie6AxY9HdX9gur95dS AbrXD60oVBjVFOsRBAg clxwYXJccGFyZFxwYXJ 9 Gross Description (test c1cfxWGtCJCplERJBAO code = [id number]) sCGJmQL4itNvvcPv3eZ pxIQGjaiF7dXImISvav 4xiJGT0k2atpoHOKkss QQJvTP4lTRvfMVOkDS0 nZmUwXGRlZmYxXHBhcG VydzEyMjQwXHBhcGVya DY4NZNhRF0bucixXExi HFvuPXHvdqW8DDFhuJX hP1ZiHGXiKS3ibckmGO B2YLCZOiyiMh0nzHBfd HtcZjFcZmNoYXJzZXQw ONWbuBogTUUrTRj7lC6 KDalvO79xd7J1Dcv7KO ZhTMNlM1YxMT5dZAQkt MTmF07NLahqGJD6TSPS TuxnAdrpbKvoy9DnvAK cXHNnIFxcaWQgNTEwMD AgXFxkYiBPVlIgIiAxM Pr3Xbc1SqV9VPd9GPMK KBWoHjD9VeX0GbT1LCc 9HIMaDJ3wKStppGZqJI hdQvpdUYlcR463JWofS DEaL4MzH9FgOAcbZhCf XGlkIDUxMDAyIFxcZGI kZ0HQQMOjPAP5CjN1Uv YbWBk8AAecB8RMETVbE NJ7Pmk4HnRjEpC5RNi6 JEXHSi5mUQR5AcFbTPH cSIP8MGJgJuXjEHSuAx BcXHNzIDMgXFxmbCBcX H3agDmiFNWyVD8DNLGo YWluXGJcZnMyMCBBOlx wYXIgDQpccGFyZCANCl xwbGFpblxiXGZzMjBcc QsepU3ewFFsY1feQcFx MlxlcGljTmVzdERvYzE gDQpcbHRycGFyXGxpbj BccmluMFxzYTMwXGVwa NZNl8AlZZXAHomyZICq MVxmczIwIEplanVudW0 fTWhzwdKugB66UBWtQZ FrWBSlBrLwh3U6TFAhq xD7gZCtkDWvQpVrV32n isKvTDKxLrWmS83yWB9 dRSDcZVXpnXtxSH73xJ OtjEeou2BgdTo5uXGkO NsjRHDmIuDzMCDzj6Qq F9B7FGNwFMxqd0yiXMT yZIuxd8JoTXkHKOCSQA 7UIY4wfJF4MRwJT9QTD 8cYjBMpMER7tZW7LXSN QlmagBF0iOL9mP26HSN tIWEstUPxWBqqU717YU I1MZJmYYvpz3zqXIOtN Rara2AdRWaJYCNJNZ5E IN2wqEV3XDyJK2NYHPp eTUYxZmiahPCOOWQ5ON rmmYxcwYe8t8ymcBGut 2v4UNxzJNO5wIfhdWZa blxsdHJjaFxmczIwIA0 KXHNhMFxlcGljWHNhMC ANClxlcGljTmVzdERvY nK0JKIrlWVtQSB4BV7y zSvjNZTyCUr4IBvdIYW xY5AqU3JrFLrmGvPyML lkIDUxMDAyIFxcZGIgT 0BCGFTaFMU6HtV3LvQb ONn6LTglF1GUARBcKGS 1Por1MrG1BgC1XMu7WA EBHj8cZES8FrTsJUO9O yW1CHPcXcFlJIGcJsMe XHNzIDMgXFxmbCBcXG5 jfVxzYjEwNVxlcGljWH UnAED6XC9UNVZkHbTzI aavlwEmSDU6DBQowvCD OqwfALZiPL0NVSBgWEv jXZg2dlCoRMJoSiSbGI xiMFxmczIyXGVwaWNOZ QJ4HQ9jNDXVGpecyYKx IPCkqRhzNJmzcP2nBOR bYrEbCDMfN1iuSpAbPO NcPiKdRZThS9bxEJDhM N4XDXHlE2XsYNSdPxMr D5XyxDJvbRfpj9OmiYK buEjrVcVzJ2EuFJOqNE QjYzBfgBSqIGGld6A9Y LGxowOukUZxiRnxCM21 IGNtLCBlbnRpcmVseSB ppRInmNP0WCUlpZ9fNd EuICBccHJvdGVjdHtcZ ziqeWV6FNkbMduvtU1w dCBIWVBFUkxJTksgbmF oVM4VHO2OLkRLWL10Wp NaEZV9PJmJL7CSkPV0J zo5IEc6kTqlRkiukyFm pVXyIpQHyZ6LZSlfJso pnXO7MCmfEbusqZ8jaA BIWVBFUkxJTksgbmFtZ W1HHH6IEG5YcWWlSQA9 qRE2TUZXDgkmgOJ9eSL 4lA57XUAeGPOfbOBtOP qeM530HZCjWGpiOFd8z mNoXGZzMjAgDQpccGFy ZFxsdHJwYXJcbGluMFx qyT9mXQ6VPKWydNVGJL X5NS7cPRqvGSVqZ8JsP 0VyizT7ZALvxbINHgse SipreMrsw5RjjKGaJFT nIFxcaWQgNTEwMDIgXF syXmONLsMwQxMkFFr1Q ek7GxL7ZGh7XPCNNeRm EnMrJRJpHac6WDYlQQb 5VCh0NLlTRkHrUpS2KQ TbVeB9IVQ2YQByCMzuw OKbONrrr6ZgDgRyCDRd LJebafE8FFDfQFS0HIQ jgWNEy4YfNWIvXQfvEt MyMlxiXGZzMjAgQzpcc DZuPT0IMQAuhwEfDIen tEnqaP7jzOEfU8xqQsm mczIwXGIwXGZzMjJcZX SkZ57bu4KNg2AtFX5QE We4jjXwaavtkM0qTHBz pzQzg3MoUJxbdKbzZMS uLhHgp7TlCCvmxUgjNM NhMzAgDQpcYlxjZjFcZ oQcPYBDCTJ4qXemFizk zYI3XRBvMDFjnRUszNg wUyHfO0WwFSBmGGEzGa SdvXYpTYQus7A2PRBld hFhnQHikZcbSD78QOWk LCBlbnRpcmVseSBzdWJ niVQ8RDRycY4pRmQyQC BccHJvdGVjdHtcZmllb JF5FCgwHrywnG8ybMQA WVBFUkxJTksgbmFtZT1 HJZ3MFzGKCR68TeCqUB E0PLaXS0HVsVI2Bri1Z Kf2qQluElqeghYqaOVy LhNFhF5UTNfuXxbekMV 8OFayTcwgmL9jyCKETR CIIjvFPqeowuGlDY9XM J0ZQS6ZjUYrEIT8xFB7 MDUYYerdaBV5zRN4vL8 0HZQlQWYhgXGqYGllL2 02VRWkYPibMFp0ncBbC GZzMjAgDQpccGFyZFxs dHJwYXJcbGluMFxyaW4 pJQ0NUOIepUXDBBE5JY 0nZUkaKVHcO7TmQ1Ecf mK1JAZlddDKEpmlAbwo ePqsu0AezKUvEBIaLHd caWQgNTEwMDIgXFxkYi YSEiDhDiLlRBo8Bkv8K gQ9MMi8GPEOOxPsEnSj SOHqSsc5WNKiFFh7COu 6YLoRTrFsExJ8SAVzSA E8YZG4RJTaQKxtnVAfN Dnmc4SpIwFvDVWgKLdb xlK2QJKhRBS5KLCsqRW Hn8JyFAEjNZurIcAgNv xiXGZzMjAgRDpccGFyI W7UFCTpbfXhYLffrFxs uY5ubXRbP2ggTebvrdD wXGIwXGZzMjJcZXBpY0 3qd4FPg1BkAC6UXHk5c bVcykvmaT8rJPUrhdZj f2KvYUbetOgbPLXcBiL eb3DvBAefyDzwPVGqIx AgDQpcYlxjZjFcZnMyM PEKPAY9bY2sMYXfX0Ib wKOye1w3kHueIqXjD1K eKRNXOCUtyJips1wnUS Q1ST8bTdPks97cbOqak 9WfNBVaGWnuBT24JFHc LjkgeCAwLjkgeCAwLjY gI88hj1u5dGKaEWWgDL W9IEKcYICpmVSwiJKzf r8cDRPdGRGjGCHvAYir CQyhw8CjQHErRJAkFBp qsLAfTKC5nE5eUMYtWZ LlxYfnSNi3MMG9Xv9od HEpDXYvrdMQCY1GNp3d PGpsso81ESX5p5czmEM vVGjxHumlzUQrkjT7BG uVEBBIXBxBTeGaCQ1dJ UxJTktCRUdJTnwyMTAx GukcnLDBYCW1VShjnSw rpVs5o9iwhVXyr0m3CA upMFA2tQQPo0ifuEJiW XhfCghluUQhfvC0YUnA EDOJHSoBNnWzME3tSJy MIppUZiM0GaMuZMO9CA hUW9WLlDK8Mhv4WXe0c XtcZmxkcnNsdCBcJzFD mB9vxHnatW7yrSAmX8w cZnMyMCANClxwYXJkXG z9kmJdehtakK1oHSRbe lDtYBhzJBJxL82ld3RP f3Lpe7vsiQyff3ZbhGQ xBR89CMQqnAUqWBF1UE 5kfVxwYXIgDQpcZnMyM iANCn0= Disclaimer (test code = m8rdsJOwXIFvgYHsLeT 9844) fRGYjQMXwk6rzFPTejG FuZzEwMzNcZnRuYmpcd SMuDOYyRnHdb0euo247 mBLwg0wwWTUdEzL8vLV tLPZvjHXhX027ZKTxVL wmx2taj8LaFPCgmRJue 2K5KEKSusjcpNa9nWft L99cd1Q1VuwsH6xwONL iWMBnI6QtHJ1yKODkXf k4QLD4BUB4FUBvMSPmW 6OyCR0bGUJnwOUjXCo6 b8eipRuiGVFiAID6x2p sFCohabLhJJ4uuw4joW e8q7czphEgDYZvYKTco FIXBEQeD7OsxJauIb6m eAf8hRcsNrhnSET0Jps 2SD4bmw70fdo9eBvpQS AgvlquBdD7ELdqSJBgx hvaOWq6JBznZKKzzKD2 OOTcvCWsV0MmLPIzOK5 rnny4QYN3BUwlARQnSp B4PPLwcCPyDSGgaLgrM Kfbv297NUA9SfIkWD6c D8Wvc1X8tW2rsYRbJON ziCLuUzStDDBwiy0zxX AsTHzbw6RpWGE6qtM3y QHwzEQgRTVgFK55Fulv c4GrDsqtASR8WELycmY ye2Tsl2dvOcWcrtIsE8 zqD3SaINCtYRYoUYPtJ hPfsyKpj1Ddx6HixAYn lNd4v8jpTEIxZRDolJe sx3ndSDX6SHCnS8T2sP Sqc0azJWxoKZVqaTV7a wF7NMZauJSpW9TuaO2q ZPPpVF8ysiz3s2tuOHV 0MFwkQPHdFfZ4nhM4VV BcaGVhZGVyeTcyMFxmb 954GZI4IpZaDOGvh2Oy I5SwpHlxO81edObqN92 gKEBucEpvvP7udZisfM 5cZjBcZnMyNFxxbFxwb XVnbwlbNPeqwsQ5XZnp abecLBTtVRbzU3exZjA wYWIrpPluVLqgj3RgTU TmEIKxJvkzycW6JPRXf 46eHTVlx0UlMHFcpC0q xEEpHZgedlUsmPL0BTz hdmUgYmVlbiBkZXZlbG 3zGWNzSP5nQMIspcUmn v8umgDoZSTsUPDsK0Rb cmlzdGljcyBkZXRlcm1 emjWgLDI3TOCKSJ5KVM UcSGUkq32oCENlfNuut K2xtLKkxqIxKBWtv6Im vJ1ieFYCGTWiF1hiLN3 fIEquu5WgvDXykPYqfV P6OASte2OyPrOkfjHti OHfhEUbS5JorPobC6rs DWQuWRRdyjQquYWis6D oZJYcjPJ4zFMiEM5TOp JXn76yFFFeLKLQjeSpG MBosUxejZT1liW6sY4h LiBJZiBhcHBsaWNhYmx qXACmm014sx1xlfU5AI KjHQPwimcoz7ApLAMlP TJfdE94FHIiARKnit4a akjffUUunxYbD1Rdsoy 6mH3qVLLiNXeyLEMpKK ZzMjJcbGFuZzEwMzNca GljaFxmMVxkYmNoXGYx NEiyW0rrWgKcCzQtRve wYXJ9 [facility] Filtration Rate 2022-10-23 16:59:00 Test Item Value Reference Range Interpretation Comments eGFR (test code = 119 See_Comment The eGFRcr is calculated with [address]) the 2020 CKD-EP I creatinine equation using creatinine, patient's age, and sex for adults 18 years of age and older. Other fa ctors, especially musc le mass, may affect accuracy and need to be considered.A ccording to the Kidney Dise ase: Improving Global Outcomes (KDIGO) CKD Work Group 2012 Clinical Practice Guidel ine, chronic kidney disease (CKD) is defined as the abnormalities of kidney struc ture or function, prese nt for more than 3 months, with implications fo r health. CKD should be class ified by cause, GFR fern gory, and albuminuria cat egory. KDIGO guidelines prov jocelyn the following GFR c ategoriesStage Description GFR mL/min/1.73 m2G1* Normal or high >= 90G2* Mildly decrease d 60-89G3a Mildly to moder ately decreased 45-59 G3b Moderately to severely dec reased 30-44G4 Severely decrea sed 15-29G5 Kidney failure <15*In the absence of evid ence of kidney damage, neither G1 nor G2 fulfill criteri a for CKD. Testing Perform ed at [facility] Lab Journeyman Operator Assistant [facility], [address] [place] [address], [address], [place], [place] [address] [Automated message] The sy stem which generated this result transmitted ref erence range: >=60 mL/min/1.7 3 sq. m. The reference range was not used to interpret th is result as normal/abnormal . [facility].Serum [id number] 16:58:59 Test Item Value Reference Range Interpretation Comments Creatinine (test code 0.51 mg/dL 0.51-0.95 Testin g Performed at = 2160-0) [facility] Lab Ambulat ory Care [facility], [address], [address], [place] [address] [facility] Urea [id number] 16:58:58 Test Item Value Reference Range Interpretation Comments BUN (test code = 9 mg/dL 6-23 Testing Per formed at [facility] 3094-0) Lab Journeyman Operator Assistant [facility], [address] [place] [address] [address], [place] [address] [facility] [facility] CenterTMP Interpretation Antibody Screen [id number] 13:17:49 Test Item Value Reference Range Interpretation Comments TMP Auto Neg At the present ABSC Interp time, patient (test code = plasma shows no ____YULISA CARRANZA N 7535) evidence of RBC CAROL,Dictate d by: YULISA alloantibodies. MIN CAROL,Dic tated Date/Time: 09.07 7:17 AM FORM STRIPPER Tra nscribed Date/Time: 09.07 7:17 AM CSTElectronical ly Signed By: YULISA Watkins ANABELL, on 10.05.2022 7:17 AM C [facility] CenterTMP Interpretation Antibody Screen [id number] 13:17:49 Test Item Value Reference Range Interpretation Comments TMP Auto Neg At the present ABSC Interp time, patient (test code = plasma shows no ____FLEUR [place] N 7535) evidence of RBC CAROL,Dictate d by: YULISA alloantibodies. SCOOBY MEDINA,Dic tated Date/Time: 09.07 7:17 AM FORM STRIPPER Tra nscribed Date/Time: 09.07 7:17 AM CSTElectronical ly Signed By: YULISA Watkins ANABELL, on 10.05.2022 7:17 AM C [facility] CenterTMP Interpretation Antibody Screen [id number] 13:17:49 Test Item Value Reference Range Interpretation Comments TMP Auto Neg At the present ABSC Interp time, patient (test code = plasma shows no ____FLEUR [place] N 7535) evidence of RBC CAROL,Dictate d by: YULISA alloantibodies. SCOOBY MEDINA,Dic tated Date/Time: 09.07 7:17 AM FORM STRIPPER Tra nscribed Date/Time: 09.07 7:17 AM CSTElectronical ly Signed By: YULISA HUNG, on 10.05.2022 7:17 AM C [facility] CenterAntibody [id number] 22:54:30 Test Item Value Reference Range Interpretation Comments ABSC. (test code = Negative ABSC 890-4) JUDY (test code = JUDY) Please schedule same day [facility] CenterAntibody [id number] 22:54:30 Test Item Value Reference Range Interpretation Comments ABSC. (test code = Negative ABSC 890-4) JUDY (test code = JUDY) Please schedule same day [facility] CenterAntibody [id number] 22:54:30 Test Item Value Reference Range Interpretation Comments ABSC. (test code = Negative ABSC 890-4) JUDY (test code = JUYD) Please schedule same day [facility] CenterABORh2022-12-30 22:54:29 Test Item Value Reference Range Interpretation Comments ABORh. (test code = A POS 882-1) JUDY (test code = JUDY) Please schedule same day [facility] CenterABORh2022-12-30 22:54:29 Test Item Value Reference Range Interpretation Comments ABORh. (test code = A POS 882-1) JUDY (test code = JUDY) Please schedule same day [facility] CenterABORh2022-12-30 22:54:29 Test Item Value Reference Range Interpretation Comments ABORh. (test code = A POS 882-1) JUDY (test code = JUDY) Please schedule same day [facility] CenterClot Expiration [id number] 22:54:28 Test Item Value Reference Range Interpretation Comments T & S Expiration (test code = 10/07/2022 5318) [facility] CenterClot Expiration [id number] 22:54:28 Test Item Value Reference Range Interpretation Comments T & S Expiration (test code = 10/07/2022 53) [facility] CenterClot Expiration [id number] 22:54:28 Test Item Value Reference Range Interpretation Comments T & S Expiration (test code = 10/07/20225317) [facility] CenteraPTT2022-10-24 14:35:11 Test Item Value Reference Range Interpretation Comments aPTT (test 24.6 See_Comment Testing Perform ed code = atACB Lab Ambul atory 33736-3) Care [id number] [facility], [address] [address] [Automated mess age] The system WhistleTalk generated this result transmitted ref erence range: 22.8 - 3 4.2 second(s). The reference range was not used to int erpret this result as normal/abnormal . JUDY (test code This lab cannot be = JUDY) scheduled at the following locations due to collection/proccess ing restrictions: [facility] and [facility]. [facility] CenterProthrombin [id number] 14:35:10 Test Item Value Reference Range Interpretation Comments PT (test code 13.2 See_Comment Testing Perfor med = 5902-2) atACB Lab Ambul atory Care [id number], [address] [address] [Automated mess age] The system WhistleTalk generated this result transmitted ref erence range: 11.9 - 1 4.1 second(s). The reference range was not used to int erpret this result as normal/abnormal . INR (test code 1.04 0.89-1.10 Testing Perfo rmed = 6301-6) atACB Lab Ambul atory Care [address], [address] [address] JUDY (test code This lab cannot be = JUDY) scheduled at the following locations due to collection/proccess ing restrictions: [facility] and [facility]. [facility] CenterHemoglobin2022-08-03 16:40:29 Test Item Value Reference Range Interpretation Comments Hgb (test code = 718-7) 8.8 See_Comment L [Au tomated message] The system WhistleTalk generated this result transmitted ref erence range: 12.0 - 1 6.0 gm/dL. The refe rence range was not u sed to interpret this result as normal/abnor mal. Lab Interpretation (test Abnormal code = 57127-5) [facility] CenterTMP Interpretation Crossmatch 2022-05-08 14:55:51 Test Item Value Reference Range Interpretation Comments TMP XM Interp RBC units (test code = crossmatched for 7566) transfusion appear K CORIE thomas. MD Umu MORENO [id number] b y: MD Umu DAMICO [id number] Date/Time: 9:55 AM CDT Transcribed Judson e/Time: 05.08.2022 9:55 AM CDTElectronical ly Signed By: MD Umu CHAMBERLAIN [id number] [id number] on 05.08.2022 9:55 AM C [facility] CenterPrepare RBC:ER, 1 [id number] 12:00:15 Test Item Value Reference Range Interpretation Comments PRBC Product Ready 1 Red Blood Cells (test code = Available - 58367-1) Order Form 03 when ready for product issue. Unit Number (test [id number] code = 7002) Product Code (test [id number] code = 7003) Unit Expiration [id number] (test code = 155842) Unit Blood Type 6200 (test code = 7004) Product Code Text RBCIRLR CPD AS1 (test code = 500mL ) Crossmatch [id number] Expiration Date (test code = ) Unit Irradiated IRRADIATED (test code = 400444) Dispense Status ISSUED (test code = 7001) Unit Blood Type A Positive (test code = 7005) Product [facility] .BPAM ____ Location (test ___ code = 583891) ___ ____ [facility] CenterRBC Product Ready for Librarian Special Library 2022-05-08 11:43:28 Test Item Value Reference Range Interpretation Comments PRBC Product Ready B2 Blood Bank Product is ready for for Librarian Special [facility] (test pickle cutter on May code = 513980) 2021 06:4 3:21 CDT. [facility] CenterFractionated [id number] 10:11:38 Test Item Value Reference Range Interpretation Comments Bili Total (test 1.2 mg/dL <=1.2 Indocyanine Green (ICG) code = 1975-2) may cause fal sely elevated biliru bin results. Total and direct bilirubin must not be measured from s amples containing indo cyanine green. False el evation of total bilirubin can be seen in patient s with IgG concentrations above 28 g/L. Bili Direct (test 0.3 mg/dL <=0.3 Indocyanin e Green (ICG) code = 1967-7) may cause fal sely elevated biliru bin results. Total and direct bilirubin must not be measured from s amples containing indo cyanine green. Bili Indirect (test 0.9 mg/dL 0.0-0.9 code = 1971-1) [facility] CenterPhosphorus [id number] 10:11:37 Test Item Value Reference Range Interpretation Comments Phosphorus (test code = 2777-1) 4.0 mg/dL 2.5-4.5 [facility] CenterCalcium [id number] 10:11:36 Test Item Value Reference Range Interpretation Comments Calcium Lvl (test code = 32833-3) 9.6 mg/dL 8.4-10.2 [facility] CenterAlbumin [id number] 10:11:34 Test Item Value Reference Range Interpretation Comments Albumin Lvl (test code 4.7 See_Comment [Aut omated message] The = 0497) system which ge nerated this result tra nsmitted reference range : 3.5 - 5.2 gm/dL. The refe rence range was not used to interpret this result as normal/abnormal . [facility] CenterAspartate Aminotransferase 2022-05-08 10:11:32 Test Item Value Reference Range Interpretation Comments AST (test code = 1920-8) 19 U/L <=32 [facility] CenterTotal [id number] 10:11:31 Test Item Value Reference Range Interpretation Comments Total Protein (test code = 2885-2) 7.7 g/dL 6.4-8.3 [facility] CenterElectrolyte [id number] 10:11:30 Test Item Value Reference Range Interpretation Comments Sodium Lvl (test code = 137 See_Comment [Au tomated message] The 295-2) system which ge nerated this result tra nsmitted reference range : 136 - 145 mEq/L. The reference range was not u sed to interpret this result as normal/abnormal . Potassium Lvl (test 3.6 See_Comment [Automa ashanti message] The code = 2823-3) system which generated this result tra nsmitted reference range : 3.5 - 5.1 mEq/L. The reference range was not u sed to interpret this result as normal/abnormal . Chloride (test code = 104 See_Comment [Auto mated message] The ) system which ge nerated this result tra nsmitted reference range : 98 - 107 mEq/L. The refe rence range was not u sed to interpret this result as normal/abnormal . CO2 (test code = 22 See_Comment [Automated message] The 2028-06) system which ge nerated this result tra nsmitted reference range : 22 - 29 mEq/L. The refe rence range was not u sed to interpret this result as normal/abnormal . Anion Gap (test code = 11 See_Comment [Aut omated message] The ) system which ge nerated this result tra nsmitted reference range : 4 - 14 mEq/L. The refe rence range was not u sed to interpret this result as normal/abnormal . [facility] CenterMagnesium [id number] 10:11:29 Test Item Value Reference Range Interpretation Comments Magnesium (test code = 05838-1) 2.2 mg/dL 1.6-2.6 [facility] CenterGlucose [id number] 10:11:28 Test Item Value Reference Range Interpretation Comments Glucose Level (test 96 mg/dL 70-99 Effectiv e 05/01/16, the code = 2345-7) glucose refer ence intervals have been updated based o n [place] [employer] mi delines (Standards of M edical Care in Diabete s 2016. Diabetes Care 2 016; 39: S13-S22).Fastin g blood glucose:Normal: 70-99 mg/dLImpaired f asting glucose (increa sed risk for diabetes or pre-diabetes): 100-125 mg/dLDiabetes m ellitus: >/=126 mg/dL Ra ndom blood glucose:N ormal: 70-199 mg/dLNot e: Random glucose >100 mg /dL is associated with increased risk for diabetes [facility] CenterAlkaline Vjohaumyitg8262-76-36 10:11:27 Test Item Value Reference Range Interpretation Comments Alk Phos (test code = 6768-6) 72 U/L 35-104 [facility] CenterALT2022-08-03 10:11:26 Test Item Value Reference Range Interpretation Comments ALT (test code = 1742-6) 8 U/L <=33 [facility] Medical Centervon Willebrand Factor Activity 2022-03-26 20:15:21 Test Item Value Reference Range Interpretation Comments vWill Fct Act-Keene 91 % 55-200 NOTE: VWF activity may be (test code = increased above baselinelevels 11829-6) by acute or chr onic inflammation, s tress oradrenergic st imuli, or es trogen and oralcontracepti ve (OCP)therapy, l iver disease or recentinfusion of plasma, cryoprecipitate , desmopressin(DD TAR ROOFER) or VWF concentrates an d mask the diagnosisof mil d von Willebrand dise ase(VWD).Note: Apparently norm al individuals of blood group "O"may have somewhat lower von Willebrand factor(VWF)than individuals of other blood rashi ups, such that(forexample ) those of group "O" may h ave VWF as low as 40-50%, wher eas normals of nongroup "O" ge nerally haveVWF above 60-70%. S uggest clinical correlation. ----ADDITIONAL INFORMATION---- This test has b een modified from the lead game designer'si nstructions. Its performance characteristics weredetermined by [facility] in a manner consistent with CLIA requirements. T test has not been cleare d orapproved by the U.S. Food a nd Drug Administration. Test Performed by:[address] [address]Mhg Direct or: Oswaldo Andujar M.D. Ph. D.; CLIA# [id number] [facility] Cancer QuinebaugVon Will Factor [id number] 20:15:20 Test Item Value Reference Range Interpretation Comments vWF Ag-Keene (test 113 % 55-200 --------- ADDITIONA code = 60803-5) L INFORMATION---- -This test has been modified from the lead game designer'si nstructions. Its performance characteristics weredetermined by [facility] in a manner con sistent withCLIA requir ements. This test has not be en cleared orapproved by taryn east U.S. Food and Drug Admini stration. Test Performed by:[place] [address] Director: Carlos Andujar M.D. Ph.D.; BRADI A# [id number] [facility] CenterFactor [id number] 19:08:04 Test Item Value Reference Range Interpretation Comments Factor IX (test code 104.0 % 60.0-150.0 Perform ing Lab: [facility] = 5579) [facility], [address] [place] [address]. [facility] Medical CenterFactor [id number] 19:08:03 Test Item Value Reference Range Interpretation Comments Factor VIII (test code 229.0 % 45.0-150.0 H Perfo rming Lab: = 5584) [facility], [address] [place] [address]. JUDY (test code = JUDY) Patient on Emicizumab/Heml ibra->No Lab Interpretation Abnormal (test code = 10847-6) [facility] CenterFactor [id number] 19:08:02 Test Item Value Reference Range Interpretation Comments Factor VII (test code 76.0 % 55.0-170.0 Perfor parveen Lab: [facility] = 5583) [facility], [address] [place] [address]. [facility] CenterFactor [id number] 19:08:01 Test Item Value Reference Range Interpretation Comments Factor V (test code = 67.0 % 60.0-150.0 Perfor parveen Lab: [facility] 5581) [facility], [address] [place] [address]. [facility] CenterFactor [id number] 19:08:00 Test Item Value Reference Range Interpretation Comments Factor II (test code = 70.0 % 70.0-120.0 Perfo rming Lab: [facility] 5578) [facility], [address] [place] [address]. [facility] CenterFactor [id number] 19:07:59 Test Item Value Reference Range Interpretation Comments Factor X (test code = 54.0 % 70.0-120.0 L Perfor parveen Lab: CHI 8487) [facility], [address] [place] [address]. Lab Interpretation (test Abnormal code = 88573-8) [facility] CenterFactor [id number] 15:16:18 Test Item Value Reference Range Interpretation Comments Factor XI (test code = 79.0 % 60.0-145.0 Perfo rming Lab:Buddhism 9239) [facility], [address] [place] [address]. [facility] CenterProthrombin Time Mix (1:1) 2022-03-23 18:37:51 Test Item Value Reference Range Interpretation Comments PT Normal PP (test code 13.9 second(s) = 91334) PT (test code = 5902-2) 14.0 See_Comment H [Au tomated message] The system WhistleTalk generated this result transmitted ref erence range: 11.5 - 1 3.9 second(s). The reference range was not used to int erpret this result as normal/abnormal . PT Mix (1:1) (test code See Note 11.5-13.9 When PT value is = 5959-2) within 2 second s of normal, mixing studiesare inconclusive. Therefore, stud ies will not perfor med andthe patient will be credited. If deficiencies/in hibito rsare suspected , specific factor assays are recommended. Lab Interpretation (test Abnormal code = 89361-6) [facility] Medical CenterRetic [id number] 17:22:52 Test Item Value Reference Range Interpretation Comments Retic Cnt Auto (test code = 97776-8) 1.3 % 0.5-1.5 RETHE (test code = 91405-4) 16.9 pg 23.2-37.5 L IRF (test code = 71946-7) 16.9 % 2.6-16.7 H Lab Interpretation (test code = Abnormal 06275-3) [facility] CenterPeripheral [facility] Review 2022-03-23 17:14:04 Test Item Value Reference Range Interpretation Comments Peripheral Smear (test code = 4273) RM [facility] CenterCOVID-19 (SARS-CoV-2)Hkapxreniuvq-LE6172-11-18 13:04:37 Test Item Value Reference Range Interpretation Comments COVID19 Not Detected Not Detected (SARS-CoV-2) (test code = 42384-2) COVID19 SARS Inpatient Indication (test Admission code = 76815) Covid 19 Comment See Note The reyna S ARS-CoV-2 (test code = [place] [address]) use on the gómez s Milly System is a nino l-time RT-PCR assay in tended for the qualita tive detection of SARS-CoV-2 (COV ID-19) viral RNA in nasopharyngeal swabs from either individuals berlin pected of COVID-19 by their healthcare prov ider or from any individual, inc luding individuals wit hout symptoms or oth er reasons to susp ect COVID-19. A fac t sheet for patie nts provided by the lead game designer ([employer]) can be rev iewed at: https://www.fda .gov/m edia/046780/vik nload. A fact sheet fo r Health Care pro viders is provided by the lead game designer ([employer]) and can be reviewed at: https://www.fda .gov/m edia/335241/vik nload Results must be interpreted wit hin the context of all relevant clinic al and laboratory find ings and should not form the sole basis for a diagnosis or treatment decis ion. Positive result s do not rule out bacterial infec tion or co-infection with other viruses. Negative result s do not preclude SARS-CoV-2 infe ction and must be com bined with clinical observations, p atient history, and/or epidemiological information. Th is assay has been authorized by t FDA for use only un [place] Emergency Use Authorization ( EUA) in laboratories that have been CLIA-certified to perform moderate-comple xity and high-comple xity tests. [facility] at [facility], CLIA Accreditation #[id number] and CAP Accreditation #[id number], verif ied the performance characteristics of this assay. Int ernal controls are us ed to monitor all sta ges of the test proces s. [facility] CenterConfirm [id number] 08:04:03 Test Item Value Reference Range Interpretation Comments Nani Ng (test code = 882-1) A POS [facility] Cancer CenterPLACENTA THIRD [id number] 21:07:00 RUN DATE: 03/10/19 [facility] PAGE 1 RUN TIME: 1442 Specimen Inquiry RUN USER: INTERFACE --------- ---PATIENT: BRITNEY MENDOZA LOC: SailajaABDIRIZAK U #: [id number] AGE/SX: 38/F ROOM: [facility] RE03/05/19REG DR: Padmini Marks MD : 80 BED: A DIS: 03/08/19 STATUS: DIS IN TLOC: SPEC #: [id number] RECD: 03/08/19 STATUS: SOUTaryn REQ #: [id number] RADHA: 03/05/19- [facility] DR: Padmini Marks MD ENTERED: 03/08/19 SP TYPE: PLACIII OTHR DR: Christiano Fisher MD ORDERED: LEVEL V SURGICA CODES: BY5290 - PLACENTA, NOS COPIES TO: Padmini Marks MD [address] [place] [address] [email or web address] Christiano Fisher MD [address] [place] [address] PROCEDURES: LEVEL V SURGICA (Incomplete) TISSUES: PLACENTA, NOS - PLACENTA CLINICAL HISTORY 38 year old, IUP @ 37 weeks, [id number], repeat section, chronic hypertension, gestational diabetes, advanced maternal age, protein S deficiency (wpd) FINAL DIAGNOSIS Placenta, section: - placenta with third trimester morphology (467 gms), mean placental weight at 37 weeks - 478 gms - intervillous fibrin thrombus, 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 The following attributes are observed: Cord insertion: 3 cm from margin Cord length: 19 cm Number of vessels: 3 Cord color: Blue-novoa Other cord findings: None surface findings: Steel blue,wrinkled, glistening Vasculature: Displays unremarkable blood vasculature Membranes rupture site: 0.0 cm to margin Membrane color: Novoa Other membrane findings: Thickened and opaque The trimmed placental weight: 467 gm Disk measurement: 19 x 17 x 3 cm in greatest dimension Accessory lobes: None Maternal surface: Lobulated and intact Parenchyma: Red, beefy, and spongy Parenchyma lesions: None Cassettes: A1 through A4 /wpd 03/08/19 @ 1325 MICROSCOPIC DESCRIPTION The placenta is composed of small vascular villi. A mild infiltrate of small lymphocytes is present in the chorion. The membranes are free of acute inflammation. The trivascular umbilical cord is free of inflammation. An intervillousfibrin thrombus is identified on microscopic examination which accounts for less than 1% of the total placental parenchyma. daniel/[email or web address] 03/09/19 Signed Emily Henry 03/09/19 2107 - END OF REPORT CBC W/AUTO [id number] 08:16:00 Test Item Value Reference Range Interpretation Comments WHITE BLOOD CELL (test 11.5 K/mm3 6.6-12.1 N code = WBC) RED BLOOD CELL (test 3.54 M/mm3 3.45-5.01 N code = RBC) HEMOGLOBIN (test code = 7.8 g/dL 10.7-13.9 L Resu lts verified by HGB) repeat analysis HEMATOCRIT (test code = 27.4 % 32.1-42.1 L Resu lts verified by HCT) repeat analysis MEAN CELL VOLUME (test 77 fL 84.1-94.8 L code = MCV) MEAN CELL HGB (test code 22.0 pg 27-35 L = MCH) MEAN CELL HGB 28.5 gm/dL 32.2-34.1 L CONCETRATION (test code = MCHC) RED CELL DISTRIBUTION 21.0 % 12.4-16.5 H WIDTH (test code = RDW) PLATELET COUNT (test 315 K/mm3 133-385 N code = PLT) IMMATURE PLATELET 0.0 % 0.0-10.8 N FRACTION (test code = IPF) MEAN PLATELET VOLUME 11.2 fl 9.1-12.7 N (test code = MPV) NEUTROPHIL % (test code 61.3 % 56.5-79.4 N = NT%) LYMPHOCYTE % (test code 28.7 % 14.3-34.3 N = LY%) MONOCYTE % (test code = 6.3 % 5.1-10.4 N MO%) EOSINOPHIL % (test code 2.4 % 0.1-3.0 N = EO%) BASOPHIL % (test code = 0.7 % 0.1-1.0 N BA%) NEUTROPHIL # (test code 7.0 K/mm3 = NT#) LYMPHOCYTE # (test code 3.3 K/mm3 = LY#) MONOCYTE # (test code = 0.7 K/mm3 MO#) EOSINOPHIL # (test code 0.28 K/mm3 = EO#) BASOPHIL # (test code = 0.1 K/mm3 BA#) RBC MORPHOLOGY REQUIRED NORMAL NORMAL (test code = RBCM) PLATELET MORPHOLOGY NORMAL NORMAL REQUIRED (test code = PLTMR) HGB [id number] 22:55:00 Test Item Value Reference Range Interpretation Comments HEMOGLOBIN (test 5.8 g/dL 10.7-13.9 LL RESULTS ADRIANNE IFIED BY code = HGB) REPEAT ANALYSIS RESULTS CALLED TO IDA GIFFORDREAD BACK & CONFIRME D? Y.BY F.LAB. 5838. 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 Systems Repairer: LDU C/S PREP AAB HEPATITIS C [id number] 08:34:00 Test Item Value Reference Range Interpretation Comments AB HEPATITIS C (test code = NONREACTIVE NONREACTIVE HCVAB) SIGNAL TO CUTOFF (test code = 0.07 <0.80 N CUTOFF) : *Comments to [employer] Repairer: LDU C/S PREP AAB [id number] 08:34:00 Test Item Value Reference Range Interpretation Comments AB TREPONEMA (test code = TREPAB) NONREACTIVE NONREACTIVE : *Comments to [employer] Repairer: LDU C/S PREP ACAPILLARY BLOOD [id number] 08:31:00 Test Item Value Reference Range Interpretation Comments CAPILLARY BLOOD GAS PH (test code 7.296 7.35-7.45 L = PHC) CAPILLARY BLOOD GAS PCO2 (test 48.6 mmHg code = PCO2C) CAPILLARY BLOOD GAS PO2 (test code 16.0 mmHg = PO2C) CBG HCO3 (test code = HCO3C) 23.2 meq/L CBG BASE EXCESS (test code = BEC) -3.7 CBG O2 SATURATION (test code = 18.5 % SATC) CAPILLARY BLOOD GAS TYPE (test CBLA code = TYPEC) CAPILLARY BLOOD GAS FIO2 (test 21.0 % code = FIO2C) CAPILLARY BLOOD [id number] 08:31:00 Test Item Value Reference Range Interpretation Comments CAPILLARY BLOOD GAS PH (test code 7.378 7.35-7.45 N = PHC) CAPILLARY BLOOD GAS PCO2 (test 35.7 mmHg code = PCO2C) CAPILLARY BLOOD GAS PO2 (test code 24.9 mmHg = PO2C) CBG HCO3 (test code = HCO3C) 20.5 meq/L CBG BASE EXCESS (test code = BEC) -3.9 CBG O2 SATURATION (test code = 44.2 % SATC) CAPILLARY BLOOD GAS TYPE (test CBLV code = TYPEC) CAPILLARY BLOOD GAS FIO2 (test 21.0 % code = FIO2C) AG HEPATITIS B [id number] 08:21:00 Test Item Value Reference Range Interpretation Comments AG HEPATITIS B SURFACE (test code NONREACTIVE NONREACTIVE = HBSAG) : *Comments to [employer] Repairer: LDU C/S PREP AAB HEPATITIS C [id number] 08:21:00 Test Item Value Reference Range Interpretation Comments AB HEPATITIS C (test code = HCVAB) NONREACTIVE SIGNAL TO CUTOFF (test code = CUTOFF) <0.80 : *Comments to [employer] Repairer: LDU C/S PREP AAB [id number] 08:21:00 Test Item Value Reference Range Interpretation Comments AB TREPONEMA (test code = TREPAB) NONREACTIVE NONREACTIVE : *Comments to [employer] Repairer: LDU C/S PREP [id number] 06:59:00 Test Item Value Reference Range Interpretation Comments GLUBED (test code = GLUBED) 84 mg/dL 65-110 N CBC W/AUTO [id number] 17:52:00 Test Item Value Reference Range Interpretation Comments WHITE BLOOD CELL (test code = 13.8 K/mm3 6.6-12.1 H WBC) RED BLOOD CELL (test code = RBC) 3.56 M/mm3 3.45-5.01 N HEMOGLOBIN (test code = HGB) 7.0 g/dL 10.7-13.9 L HEMATOCRIT (test code = HCT) 26.3 % 32.1-42.1 L MEAN CELL VOLUME (test code = 74 fL 84.1-94.8 L MCV) MEAN CELL HGB (test code = MCH) 19.7 pg 27-35 L MEAN CELL HGB CONCETRATION (test 26.6 gm/dL 32.2-34.1 L code = MCHC) RED CELL DISTRIBUTION WIDTH (test 18.9 % 12.4-16.5 H code = RDW) PLATELET COUNT (test code = PLT) 410 K/mm3 133-385 H IMMATURE PLATELET FRACTION (test 0.0 % 0.0-10.8 N code = IPF) MEAN PLATELET VOLUME (test code = 10.8 fl 9.1-12.7 N MPV) NEUTROPHIL % (test code = NT%) 71.4 % 56.5-79.4 N LYMPHOCYTE % (test code = LY%) 19.8 % 14.3-34.3 N MONOCYTE % (test code = MO%) 5.7 % 5.1-10.4 N EOSINOPHIL % (test code = EO%) 0.7 % 0.1-3.0 N BASOPHIL % (test code = BA%) 2.0 % 0.1-1.0 H NEUTROPHIL # (test code = NT#) 9.9 K/mm3 LYMPHOCYTE # (test code = LY#) 2.7 K/mm3 MONOCYTE # (test code = MO#) 0.8 K/mm3 EOSINOPHIL # (test code = EO#) 0.10 K/mm3 BASOPHIL # (test code = BA#) 0.3 K/mm3 RBC MORPHOLOGY REQUIRED (test ABNORMAL NORMAL 2+ HYPO; code = RBCM) PLATELET MORPHOLOGY REQUIRED NORMAL NORMAL (test code = PLTMR) CBC W/AUTO [id number] 17:06:00 Test Item Value Reference Range Interpretation Comments WHITE BLOOD CELL (test code = WBC) 13.8 K/mm3 6.6-12.1 H RED BLOOD CELL (test code = RBC) 3.56 M/mm3 3.45-5.01 N HEMOGLOBIN (test code = HGB) 7.0 g/dL 10.7-13.9 L HEMATOCRIT (test code = HCT) 26.3 % 32.1-42.1 L MEAN CELL VOLUME (test code = MCV) 74 fL 84.1-94.8 L MEAN CELL HGB (test code = MCH) 19.7 pg 27-35 L MEAN CELL HGB CONCETRATION (test 26.6 gm/dL 32.2-34.1 L code = MCHC) RED CELL DISTRIBUTION WIDTH (test 18.9 % 12.4-16.5 H code = RDW) PLATELET COUNT (test code = PLT) 410 K/mm3 133-385 H IMMATURE PLATELET FRACTION (test 0.0 % 0.0-10.8 N code = IPF) MEAN PLATELET VOLUME (test code = 10.8 fl 9.1-12.7 N MPV) NEUTROPHIL % (test code = NT%) 71.4 % 56.5-79.4 N LYMPHOCYTE % (test code = LY%) 19.8 % 14.3-34.3 N MONOCYTE % (test code = MO%) 5.7 % 5.1-10.4 N EOSINOPHIL % (test code = EO%) 0.7 % 0.1-3.0 N BASOPHIL % (test code = BA%) 2.0 % 0.1-1.0 H NEUTROPHIL # (test code = NT#) 9.9 K/mm3 LYMPHOCYTE # (test code = LY#) 2.7 K/mm3 MONOCYTE # (test code = MO#) 0.8 K/mm3 EOSINOPHIL # (test code = EO#) 0.10 K/mm3 BASOPHIL # (test code = BA#) 0.3 K/mm3 RBC MORPHOLOGY REQUIRED (test code NORMAL = RBCM) PLATELET MORPHOLOGY REQUIRED (test NORMAL code = PLTMR) URINALYSIS [id number] 23:15:00 Test Item Value Reference Range Interpretation Comments UA COLOR (test code = COLU) YELLOW YELLOW UA APPEARANCE (test code = CLEAR CLEAR APPU) UA GLUCOSE DIPSTICK (test code 2+ NEGATIVE = DGLUU) UA BILIRUBIN DIPSTICK (test NEGATIVE NEGATIVE code = BILU) UA KETONE DIPSTICK (test code TRACE NEGATIVE = KETU) UA SPECIFIC GRAVITY (test code 1.010 1.001-1.035 N = SGU) UA BLOOD DIPSTICK (test code = NEG NEGATIVE LISA) UA PH DIPSTICK (test code = 6.0 5-9 ANGIE) UA PROTEIN DIPSTICK (test code NEGATIVE NEGATIVE = PROU) UA UROBILINIOGEN DIPSTICK 2.0 EU/dL <=1.0 A (test code = URO) UA NITRITE DIPSTICK (test code NEGATIVE NEGATIVE = ODILON) UA LEUKOCYTE ESTERASE DIPSTICK TRACE NEGATIVE A (test code = LEUU) UA WBC (test code = WBCU) 2-5 #/hpf NONE SEEN A UA RBC (test code = RBCU) 0-2 #/hpf NONE SEEN UA EPITHELIAL CELLS (test code MODERATE #/hpf NONE SEEN A = EPIU) UA BACTERIA (test code = BACU) MODERATE #/hpf NONE SEEN A Comments to [employer] Repairer: PAIGE Dennisimeashanti Comment: LDO DURINE SAMPLE: CLEAN CATCHComment LDO DFETAL [id number] 23:14:00 Test Item Value Reference Range Interpretation Comments FIBRONECTIN NEGATIVE Among symp tomatic (test code = FFN) women, poly vated levels (>0.05 ug/mL) o ffFN between 24 week s and 34 weeks, 6 days i ndicate increasedrisk o f delivery in <= 7 or <= 14 days from samplecollectio n. Similarly, mike g asymptomatic wo men, elevated levels of fFNbetween 22 w eeks and 30 weeks, 6 day s indicate increa sedrisk of delivery in <= 34 weeks, 6 days o f gestation. Comments to [employer] Repairer: PAIGE Garcia Comment: LDO DURINALYSIS COMPLETE 2018-11-07 12:09:00 Test Item Value Reference Range Interpretation Comments UA COLOR (test code = COLU) YELLOW YELLOW UA APPEARANCE (test code = Slightly-Cloudy CLEAR APPU) UA GLUCOSE DIPSTICK (test NEGATIVE NEG code = DGLUU) UA BILIRUBIN DIPSTICK (test NEGATIVE NEG code = BILU) UA KETONE DIPSTICK (test code NEGATIVE NEG = KETU) UA SPECIFIC GRAVITY (test 1.008 1.001-1.035 N code = SGU) UA BLOOD DIPSTICK (test code NEG NEG = LISA) UA PH DIPSTICK (test code = 7.0 5-9 ANGIE) UA PROTEIN DIPSTICK (test NEGATIVE NEG code = PROU) UA UROBILINIOGEN DIPSTICK NEGATIVE mg/dL NEG (test code = URO) UA NITRITE DIPSTICK (test NEG NEG code = ODILON) UA LEUKOCYTE ESTERASE 2+ NEG A DIPSTICK (test code = LEUU) UA WBC (test code = WBCU) 3-5 #/hpf NONE SEEN A UA RBC (test code = RBCU) 0-2 #/hpf NONE SEEN UA EPITHELIAL CELLS (test RARE #/HPF RARE-FEW code = EPIU) UA BACTERIA (test code = MANY /HPF RARE-FEW A BACU) UA MUCUS (test code = MUCU) RARE NONE SEEN Specimen Comment: FROM [facility] MERE SAMPLE: CLEAN [id number] 08:50:00 Test Item Value Reference Range Interpretation Comments Bili Total (test code = Bili Total) 0.5 0.2-1.3 [id number] 08:50:00 Test Item Value Reference Range Interpretation Comments AST (test code = AST) 23 See_Comment N [Auto mated message] The system which ge nerated this result transmit ashanti reference range : <=37. The reference range was not used to interpr et this result as carmen l/abnormal. [facility] CenterZdgarueJDYAGWSEB8242-11-78 08:50:00 Test Item Value Reference Range Interpretation Comments Glucose Lvl (test code = Glucose Lvl) 79 70-99 N [facility] CenterIrbevvnTEBETIBOC2083-28-28 08:50:00 Test Item Value Reference Range Interpretation Comments Alk Phos (test code = Alk Phos) 50 39-136 N [facility] CenterBrgylmmWYWJIRTYV1004-32-67 08:50:00 Test Item Value Reference Range Interpretation Comments CO2 (test code = CO2) 24 24-32 N [facility] CenterPxxmyejDMTBMCUPR0453-39-65 08:50:00 Test Item Value Reference Range Interpretation Comments BUN (test code = BUN) 10 7-22 N [facility] CenterWshkhulITBLUCKNS6846-80-70 08:50:00 Test Item Value Reference Range Interpretation Comments Total Protein (test code = Total 5.6 6.4-8.4 L Protein) [facility] CenterGmhdmlvCLMNMAIXH3842-46-20 08:50:00 Test Item Value Reference Range Interpretation Comments ALT (test code = ALT) 30 See_Comment N [Auto mated message] The system which ge nerated this result transmit ashanti reference range : <=65. The reference range was not used to interpr et this result as carmen l/abnormal. [facility] CenterViifdnuOJVCZUQLQ8081-15-82 08:50:00 Test Item Value Reference Range Interpretation Comments Albumin Lvl (test code = Albumin Lvl) 3.3 3.5-5.0 L [facility] CenterHffsotlWXFIOZGGQ8225-24-04 08:50:00 Test Item Value Reference Range Interpretation Comments eGFR (test code = eGFR) 115 [facility] CenterVfzqeewKTFBYXNQR2990-55-61 08:50:00 Test Item Value Reference Range Interpretation Comments Potassium Lvl (test code = Potassium 3.7 3.5-5.1 N Lvl) [facility] CenterUtarnahDTFNHFXIT0711-78-78 08:50:00 Test Item Value Reference Range Interpretation Comments Sodium Lvl (test code = Sodium Lvl) 144 135-145 N [facility] CenterFhuslxjLIPBVEWCY8507-57-11 08:50:00 Test Item Value Reference Range Interpretation Comments Creatinine Lvl (test code = Creatinine 0.7 0.5-1.4 N Lvl) [facility] CenterNdiurktRPNMVNORK2409-68-64 08:50:00 Test Item Value Reference Range Interpretation Comments Calcium Lvl (test code = Calcium Lvl) 8.3 8.5-10.5 L [facility] CenterVmzzwrjFYTPFTLLM3638-42-55 08:50:00 Test Item Value Reference Range Interpretation Comments Chloride Lvl (test code = Chloride Lvl) 108 95-109 N [facility] CenterZchzwxuGOMPVNKXZ2802-72-03 08:50:00 Test Item Value Reference Range Interpretation Comments B/C Ratio (test code = B/C Ratio) 14 6-25 N [facility] CenterOdhgjpoEOBPDTEKE8890-10-61 08:50:00 Test Item Value Reference Range Interpretation Comments Globulin (test code = Globulin) 2.3 2.0-4.0 N [facility] CenterPiybyseATVOBUMKJ3279-79-73 08:50:00 Test Item Value Reference Range Interpretation Comments AGAP (test code = AGAP) 15.7 10.0-20.0 N [facility] CenterCwrrltxEWTSOJEOT2149-80-75 08:50:00 Test Item Value Reference Range Interpretation Comments A/G Ratio (test code = A/G Ratio) 1.4 0.7-1.6 N [facility]ArhktgsMSIJXANZLH6235-79-91 08:50:00 Test Item Value Reference Range Interpretation Comments MCHC (test code = MCHC) 32.0 32.0-36.0 N [facility] CenterObwqokgUMRIBACQQT0071-47-51 08:50:00 Test Item Value Reference Range Interpretation Comments Platelet (test code = Platelet) 229 133-450 N [facility] CenterVwicjyeIYUFJSJWPB5348-01-33 08:50:00 Test Item Value Reference Range Interpretation Comments MPV (test code = MPV) 9.5 7.4-10.4 N [facility] CenterNwkddbaJYAZMTBDGB9161-04-95 08:50:00 Test Item Value Reference Range Interpretation Comments RDW (test code = RDW) 16.3 11.5-14.5 H [facility] CenterDuzcbtlFWOJBTHXRW7503-81-24 08:50:00 Test Item Value Reference Range Interpretation Comments WBC (test code = WBC) 9.8 3.7-10.4 N [facility] CenterIqpbzzfZALNNVWCHR9427-48-89 08:50:00 Test Item Value Reference Range Interpretation Comments RBC (test code = RBC) 3.57 4.20-5.40 L [facility] CenterJuehoyrUYSJFECBNI0987-66-25 08:50:00 Test Item Value Reference Range Interpretation Comments MCH (test code = MCH) 26.6 pg 27.0-31.0 L [facility] CenterTkyepvuAFYNOZRCQK1862-02-84 08:50:00 Test Item Value Reference Range Interpretation Comments Hct (test code = Hct) 29.7 36.0-48.0 L [facility] CenterSfrgkmrVCMEDOTJCB0957-02-36 08:50:00 Test Item Value Reference Range Interpretation Comments MCV (test code = MCV) 83.1 81.0-99.0 N [facility] CenterByxyrvwYZWJWEHBYC8440-20-92 08:50:00 Test Item Value Reference Range Interpretation Comments Hgb (test code = Hgb) 9.5 12.0-16.0 L [facility] CenterVfrqyijCBGZESRXDI1867-69-26 08:50:00 Test Item Value Reference Range Interpretation Comments Anisocyte (test code = 1+ *ABN*(12/12/2012 A Anisocyte) 02:50:00) [facility] CenterOdhmpztAUBHKCOTAD2759-35-91 08:50:00 Test Item Value Reference Range Interpretation Comments Monocytes # (test code 0.6 See_Comment N [Aut omated message] The = Monocytes #) system which generated this result tra nsmitted reference range : <=0.8. The reference r megan was not used to int erpret this result as normal/abnormal . [facility] CenterPgcogigPPPAIURFET7819-15-89 08:50:00 Test Item Value Reference Range Interpretation Comments Basophils # (test code 0.1 See_Comment N [Aut omated message] The = Basophils #) system which generated this result tra nsmitted reference range : <=0.2. The reference r megan was not used to int erpret this result as normal/abnormal . [facility] CenterZazdfbnFWHPMLZMZW6652-15-35 08:50:00 Test Item Value Reference Range Interpretation Comments Eosinophils # (test code 0.1 See_Comment N [A utomated message] The = Eosinophils #) system whic h generated this result tra nsmitted reference range : <=0.5. The reference r megan was not used to int erpret this result as normal/abnormal . [facility] CenterKnmettcXMXTTNQEYC5204-44-81 08:50:00 Test Item Value Reference Range Interpretation Comments Eosinophils (test code = 1.0 See_Comment N [A utomated message] The Eosinophils) system which ge nerated this result tra nsmitted reference range : <=4.0. The reference r megan was not used to int erpret this result as normal/abnormal . [facility] CenterJgnqhxnZLSIEWXAAG2879-49-10 08:50:00 Test Item Value Reference Range Interpretation Comments Monocytes (test code = Monocytes) 6.2 2.0-12.0 N [facility] CenterAzfruzeHMXMXKLEJS7326-88-42 08:50:00 Test Item Value Reference Range Interpretation Comments Basophils (test code = 0.6 See_Comment N [Aut omated message] The Basophils) system which ge nerated this result tra nsmitted reference range : <=1.0. The reference r megan was not used to int erpret this result as normal/abnormal . [facility] CenterWtsyjocDRZNUCESDX8018-48-56 08:50:00 Test Item Value Reference Range Interpretation Comments Lymphocytes # (test code = Lymphocytes 3.9 1.0-5.5 N #) [facility] CenterUzubxqkRAXXLMCHJG1693-63-70 08:50:00 Test Item Value Reference Range Interpretation Comments Segs-Bands # (test code = Segs-Bands #) 5.1 1.5-8.1 N [facility] CenterPqopanhJRZZLXQFYJ1737-13-53 08:50:00 Test Item Value Reference Range Interpretation Comments Segs (test code = Segs) 52.6 45.0-75.0 N [facility] CenterPjvifldKLBMYVBJXU5430-74-38 08:50:00 Test Item Value Reference Range Interpretation Comments Lymphocytes (test code = Lymphocytes) 39.6 20.0-40.0 N [facility] CenterHyhupprCFPBYKSMOK2166-53-66 08:50:00 Test Item Value Reference Range Interpretation Comments Plt Morph (test code = Normal (12/12/2012 N Plt Morph) 02:50:00) [facility] CenterAdhflhiNKSDSPLQC0648-27-09 08:50:00 Test Item Value Reference Range Interpretation Comments Bili Total (test code = Bili Total) 0.5 0.2-1.3 N [facility] CenterLtalvdlWEBEHBMBY7799-13-32 08:50:00 Test Item Value Reference Range Interpretation Comments AST (test code = AST) 23 See_Comment N [Auto mated message] The system which ge nerated this result transmit ashanti reference range : <=37. The reference range was not used to interpr et this result as carmen l/abnormal. [facility] CenterXzhjekoFJBULLDAB3647-11-96 08:50:00 Test Item Value Reference Range Interpretation Comments Glucose Lvl (test code = Glucose Lvl) 79 70-99 N [facility] CenterMmltdezDANMWMHRX5982-37-76 08:50:00 Test Item Value Reference Range Interpretation Comments Alk Phos (test code = Alk Phos) 50 39-136 N [facility] CenterZwlbejzCRJHCECDA7840-65-45 08:50:00 Test Item Value Reference Range Interpretation Comments CO2 (test code = CO2) 24 24-32 N [facility] CenterKkktgtoAQDZUYORL8483-49-50 08:50:00 Test Item Value Reference Range Interpretation Comments BUN (test code = BUN) 10 7-22 N [facility] CenterDyhejcaEYKAEMGSK7780-72-40 08:50:00 Test Item Value Reference Range Interpretation Comments Total Protein (test code = Total 5.6 6.4-8.4 L Protein) [facility] CenterZzpjrfdIOXTZATJS7802-40-13 08:50:00 Test Item Value Reference Range Interpretation Comments ALT (test code = ALT) 30 See_Comment N [Auto mated message] The system which ge nerated this result transmit ashanti reference range : <=65. The reference range was not used to interpr et this result as carmen l/abnormal. [facility] CenterImadshpLAOLKEMIM6187-50-45 08:50:00 Test Item Value Reference Range Interpretation Comments Albumin Lvl (test code = Albumin Lvl) 3.3 3.5-5.0 L [facility] CenterTvhaveoBYQEKFRRE9971-81-46 08:50:00 Test Item Value Reference Range Interpretation Comments eGFR (test code = eGFR) 115 [facility] CenterJhehqovXJRAICKNY1345-54-43 08:50:00 Test Item Value Reference Range Interpretation Comments Potassium Lvl (test code = Potassium 3.7 3.5-5.1 N Lvl) [facility] CenterBqaksduNPSRHEWHR1692-66-23 08:50:00 Test Item Value Reference Range Interpretation Comments Sodium Lvl (test code = Sodium Lvl) 144 135-145 N [facility] CenterWdzpfyrZMWVZZSBU1925-49-55 08:50:00 Test Item Value Reference Range Interpretation Comments Creatinine Lvl (test code = Creatinine 0.7 0.5-1.4 N Lvl) [facility] CenterHkjprldWXZMKDXNC1987-87-54 08:50:00 Test Item Value Reference Range Interpretation Comments Calcium Lvl (test code = Calcium Lvl) 8.3 8.5-10.5 L [facility] CenterAsuomaeXGRLHOXYE8928-35-70 08:50:00 Test Item Value Reference Range Interpretation Comments Chloride Lvl (test code = Chloride Lvl) 108 95-109 N [facility] CenterItokbgkUBJEMPYBG2395-29-10 08:50:00 Test Item Value Reference Range Interpretation Comments B/C Ratio (test code = B/C Ratio) 14 6-25 N [facility] CenterGpwhcexOOWODKBDS3945-25-05 08:50:00 Test Item Value Reference Range Interpretation Comments Globulin (test code = Globulin) 2.3 2.0-4.0 N [facility] CenterRrpdmbySIYIIISWH2403-03-26 08:50:00 Test Item Value Reference Range Interpretation Comments AGAP (test code = AGAP) 15.7 10.0-20.0 N [facility] CenterAilesaoRVDUSPYHN8263-99-12 08:50:00 Test Item Value Reference Range Interpretation Comments A/G Ratio (test code = A/G Ratio) 1.4 0.7-1.6 N [facility] CenterMvzagxfDSHKMHWLVL5478-30-77 08:50:00 Test Item Value Reference Range Interpretation Comments MCHC (test code = MCHC) 32.0 32.0-36.0 N [facility] CenterPgjnqjpBEODZTNFXM5593-39-18 08:50:00 Test Item Value Reference Range Interpretation Comments Platelet (test code = Platelet) 229 133-450 N [facility] CenterYwomjyvFZZPAOZYOM2510-09-40 08:50:00 Test Item Value Reference Range Interpretation Comments MPV (test code = MPV) 9.5 7.4-10.4 N [facility] CenterWuccuqqZUJELRICDO2586-03-13 08:50:00 Test Item Value Reference Range Interpretation Comments RDW (test code = RDW) 16.3 11.5-14.5 H [facility] CenterVsbviobQYZZUXBUGT8306-34-45 08:50:00 Test Item Value Reference Range Interpretation Comments WBC (test code = WBC) 9.8 3.7-10.4 N [facility] CenterOikorsqGESYVPYDJO5066-47-14 08:50:00 Test Item Value Reference Range Interpretation Comments RBC (test code = RBC) 3.57 4.20-5.40 L [facility] CenterUhyuqnhWZKYBFUJYR2873-15-10 08:50:00 Test Item Value Reference Range Interpretation Comments MCH (test code = MCH) 26.6 pg 27.0-31.0 L [facility] CenterJtunmaxOHWLWHDAPL3490-94-04 08:50:00 Test Item Value Reference Range Interpretation Comments Hct (test code = Hct) 29.7 36.0-48.0 L [facility] CenterTtfpftaCJQTRAGNGU0319-73-95 08:50:00 Test Item Value Reference Range Interpretation Comments MCV (test code = MCV) 83.1 81.0-99.0 N [facility] CenterKgiofgeSKIFWIBNGJ9394-42-52 08:50:00 Test Item Value Reference Range Interpretation Comments Hgb (test code = Hgb) 9.5 12.0-16.0 L [facility] CenterNkuaexuMOUTVTWNYO0955-24-82 08:50:00 Test Item Value Reference Range Interpretation Comments Anisocyte (test code = 1+ *ABN*(12/12/2012 A Anisocyte) 02:50:00) [facility] CenterLlufkiyDGWUGJBJNE7545-17-25 08:50:00 Test Item Value Reference Range Interpretation Comments Monocytes # (test code 0.6 See_Comment N [Aut omated message] The = Monocytes #) system which generated this result tra nsmitted reference range : <=0.8. The reference r megan was not used to int erpret this result as normal/abnormal . [facility] CenterBfhlzupTASJFILLTW7077-25-93 08:50:00 Test Item Value Reference Range Interpretation Comments Basophils # (test code 0.1 See_Comment N [Aut omated message] The = Basophils #) system which generated this result tra nsmitted reference range : <=0.2. The reference r megan was not used to int erpret this result as normal/abnormal . [facility] CenterYfublktEOACTCWEEZ9751-99-92 08:50:00 Test Item Value Reference Range Interpretation Comments Eosinophils # (test code 0.1 See_Comment N [A utomated message] The = Eosinophils #) system whic h generated this result tra nsmitted reference range : <=0.5. The reference r megan was not used to int erpret this result as normal/abnormal . [facility] CenterUliuscqUAZGOBKBZP7145-82-85 08:50:00 Test Item Value Reference Range Interpretation Comments Eosinophils (test code = 1.0 See_Comment N [A utomated message] The Eosinophils) system which ge nerated this result tra nsmitted reference range : <=4.0. The reference r megan was not used to int erpret this result as normal/abnormal . [facility] CenterXcdwtivIGVJMKOQYD6097-35-36 08:50:00 Test Item Value Reference Range Interpretation Comments Monocytes (test code = Monocytes) 6.2 2.0-12.0 N [facility] CenterZjndfwjJMSIESIVBS8724-97-21 08:50:00 Test Item Value Reference Range Interpretation Comments Basophils (test code = 0.6 See_Comment N [Aut omated message] The Basophils) system which ge nerated this result tra nsmitted reference range : <=1.0. The reference r megan was not used to int erpret this result as normal/abnormal . [facility] CenterUcazpbaYQMWHWZBZB9699-68-28 08:50:00 Test Item Value Reference Range Interpretation Comments Lymphocytes # (test code = Lymphocytes 3.9 1.0-5.5 N #) [facility] CenterZetkcgmFVFFTKEMVF0906-57-51 08:50:00 Test Item Value Reference Range Interpretation Comments Segs-Bands # (test code = Segs-Bands #) 5.1 1.5-8.1 N [facility] CenterLlrbrvtTUXWLFHWFV5388-27-88 08:50:00 Test Item Value Reference Range Interpretation Comments Segs (test code = Segs) 52.6 45.0-75.0 N [facility] CenterUdnmlqrHJWWHLPWZV1531-45-40 08:50:00 Test Item Value Reference Range Interpretation Comments Lymphocytes (test code = Lymphocytes) 39.6 20.0-40.0 N [facility] CenterDvrrivxZTHBGBTFCE4519-31-51 08:50:00 Test Item Value Reference Range Interpretation Comments Plt Morph (test code = Normal (12/12/2012 N Plt Morph) 02:50:00) [facility] CenterXbifvxjTDGUJIDZB6353-72-47 08:50:00 Test Item Value Reference Range Interpretation Comments Bili Total (test code = Bili Total) 0.5 0.2-1.3 N [facility] CenterBtzmyluIYFFVFQSM4658-34-00 08:50:00 Test Item Value Reference Range Interpretation Comments AST (test code = AST) 23 See_Comment N [Auto mated message] The system which ge nerated this result transmit ashanti reference range : <=37. The reference range was not used to interpr et this result as carmen l/abnormal. [facility] CenterEqavpkkRENQRSTTF6576-35-90 08:50:00 Test Item Value Reference Range Interpretation Comments Glucose Lvl (test code = Glucose Lvl) 79 70-99 N [facility] CenterBynykrwBSJROQTKW4854-78-11 08:50:00 Test Item Value Reference Range Interpretation Comments Alk Phos (test code = Alk Phos) 50 39-136 N [facility] CenterTrcjwanMVPOWRVOL5739-20-43 08:50:00 Test Item Value Reference Range Interpretation Comments CO2 (test code = CO2) 24 24-32 N [facility] CenterQqrptwjHOWIVKUJX1600-44-14 08:50:00 Test Item Value Reference Range Interpretation Comments BUN (test code = BUN) 10 7-22 N [facility] CenterKmtrltpEGDKCDTLW3360-84-92 08:50:00 Test Item Value Reference Range Interpretation Comments Total Protein (test code = Total 5.6 6.4-8.4 L Protein) [facility]LkjmgetVRZLECUQL2434-80-19 08:50:00 Test Item Value Reference Range Interpretation Comments ALT (test code = ALT) 30 See_Comment N [Auto mated message] The system which ge nerated this result transmit ashanti reference range : <=65. The reference range was not used to interpr et this result as carmen l/abnormal. [facility]XrufhlkVZOFVWQWC2033-33-71 08:50:00 Test Item Value Reference Range Interpretation Comments Albumin Lvl (test code = Albumin Lvl) 3.3 3.5-5.0 L [facility] CenterXsamjriPWAHWSYDI8166-40-23 08:50:00 Test Item Value Reference Range Interpretation Comments eGFR (test code = eGFR) 115 [facility] CenterGmqorrsSQUKCOXWW7946-87-00 08:50:00 Test Item Value Reference Range Interpretation Comments Potassium Lvl (test code = Potassium 3.7 3.5-5.1 N Lvl) [facility] CenterIsjzdsdZTOHKIEOT1137-19-66 08:50:00 Test Item Value Reference Range Interpretation Comments Sodium Lvl (test code = Sodium Lvl) 144 135-145 N [facility] CenterDfopzyuAYFVWJGEB1276-77-97 08:50:00 Test Item Value Reference Range Interpretation Comments Creatinine Lvl (test code = Creatinine 0.7 0.5-1.4 N Lvl) [facility] CenterGyeeakxVZRCKRZTM5046-36-17 08:50:00 Test Item Value Reference Range Interpretation Comments Calcium Lvl (test code = Calcium Lvl) 8.3 8.5-10.5 L [facility] CenterAnnqodbYYMURGEPX3553-94-90 08:50:00 Test Item Value Reference Range Interpretation Comments Chloride Lvl (test code = Chloride Lvl) 108 95-109 N [facility] CenterJyzmmhfZYVBUXYQV7052-19-72 08:50:00 Test Item Value Reference Range Interpretation Comments B/C Ratio (test code = B/C Ratio) 14 6-25 N [facility] CenterMbambxmTVPDIECRZ6040-57-18 08:50:00 Test Item Value Reference Range Interpretation Comments Globulin (test code = Globulin) 2.3 2.0-4.0 N [facility] CenterOzxogvoDBIVAATQX9470-79-89 08:50:00 Test Item Value Reference Range Interpretation Comments AGAP (test code = AGAP) 15.7 10.0-20.0 N [facility] CenterPxnbnfbTWWBTIAZG2991-57-60 08:50:00 Test Item Value Reference Range Interpretation Comments A/G Ratio (test code = A/G Ratio) 1.4 0.7-1.6 N [facility] CenterFaluztoHBTIJAGVMF7630-75-00 08:50:00 Test Item Value Reference Range Interpretation Comments MCHC (test code = MCHC) 32.0 32.0-36.0 N [facility] CenterOdmbxtfUKQYEMGFQG2493-11-23 08:50:00 Test Item Value Reference Range Interpretation Comments Platelet (test code = Platelet) 229 133-450 N [facility] CenterLjzrcwoQISKAWREWL0494-83-03 08:50:00 Test Item Value Reference Range Interpretation Comments MPV (test code = MPV) 9.5 7.4-10.4 N [facility] CenterNsergalHHWULCPQMF3670-17-00 08:50:00 Test Item Value Reference Range Interpretation Comments RDW (test code = RDW) 16.3 11.5-14.5 H [facility] CenterGsrchpaVQVPXMJCCK6649-24-25 08:50:00 Test Item Value Reference Range Interpretation Comments WBC (test code = WBC) 9.8 3.7-10.4 N [facility] CenterDpyfzgqHSQOILHSRT8971-41-15 08:50:00 Test Item Value Reference Range Interpretation Comments RBC (test code = RBC) 3.57 4.20-5.40 L [facility] CenterMfohonkCFMDBGKKON4373-42-10 08:50:00 Test Item Value Reference Range Interpretation Comments MCH (test code = MCH) 26.6 pg 27.0-31.0 L [facility] CenterXezurvgWUOGFGKTUG5571-15-62 08:50:00 Test Item Value Reference Range Interpretation Comments Hct (test code = Hct) 29.7 36.0-48.0 L [facility] CenterPawuybxCOVEFEHHLI7389-82-72 08:50:00 Test Item Value Reference Range Interpretation Comments MCV (test code = MCV) 83.1 81.0-99.0 N [facility] CenterAmjrkbfXHQWFFBOZP3781-24-03 08:50:00 Test Item Value Reference Range Interpretation Comments Hgb (test code = Hgb) 9.5 12.0-16.0 L [facility] CenterFfhjxbtWFFOCEXJJL2827-00-08 08:50:00 Test Item Value Reference Range Interpretation Comments Anisocyte (test code = 1+ *ABN*(12/12/2012 A Anisocyte) 02:50:00) [facility] CenterQmdlhljFYAJNYZLKK6776-61-30 08:50:00 Test Item Value Reference Range Interpretation Comments Monocytes # (test code 0.6 See_Comment N [Aut omated message] The = Monocytes #) system which generated this result tra nsmitted reference range : <=0.8. The reference r megan was not used to int erpret this result as normal/abnormal . [facility] CenterNeavfsbTPMVVDSVXP4275-49-67 08:50:00 Test Item Value Reference Range Interpretation Comments Basophils # (test code 0.1 See_Comment N [Aut omated message] The = Basophils #) system which generated this result tra nsmitted reference range : <=0.2. The reference r megan was not used to int erpret this result as normal/abnormal . [facility] CenterSwrvmbuDDYACDUFLC8337-04-15 08:50:00 Test Item Value Reference Range Interpretation Comments Eosinophils # (test code 0.1 See_Comment N [A utomated message] The = Eosinophils #) system whic h generated this result tra nsmitted reference range : <=0.5. The reference r megan was not used to int erpret this result as normal/abnormal . [facility] CenterMfiskjiCNJMUFJGMJ1808-77-69 08:50:00 Test Item Value Reference Range Interpretation Comments Eosinophils (test code = 1.0 See_Comment N [A utomated message] The Eosinophils) system which ge nerated this result tra nsmitted reference range : <=4.0. The reference r megan was not used to int erpret this result as normal/abnormal . [facility] CenterOvxnnkvIKMXRJPHPW9191-98-84 08:50:00 Test Item Value Reference Range Interpretation Comments Monocytes (test code = Monocytes) 6.2 2.0-12.0 N [facility] CenterZiiegjqHVNMNJKVGU2950-28-71 08:50:00 Test Item Value Reference Range Interpretation Comments Basophils (test code = 0.6 See_Comment N [Aut omated message] The Basophils) system which ge nerated this result tra nsmitted reference range : <=1.0. The reference r megan was not used to int erpret this result as normal/abnormal . [facility] CenterPtfibjbYWLTDUHOGB8851-23-28 08:50:00 Test Item Value Reference Range Interpretation Comments Lymphocytes # (test code = Lymphocytes 3.9 1.0-5.5 N #) [facility] CenterRlihovtZSOMSAQIYM1742-56-11 08:50:00 Test Item Value Reference Range Interpretation Comments Segs-Bands # (test code = Segs-Bands #) 5.1 1.5-8.1 N [facility] CenterBqrzqvqTTIPXXJKAG1730-00-39 08:50:00 Test Item Value Reference Range Interpretation Comments Segs (test code = Segs) 52.6 45.0-75.0 N [facility] CenterSsncclcIIQVEXOCGP5268-47-18 08:50:00 Test Item Value Reference Range Interpretation Comments Lymphocytes (test code = Lymphocytes) 39.6 20.0-40.0 N [facility] CenterDqpfprtFFWGVBDYJY6442-60-92 08:50:00 Test Item Value Reference Range Interpretation Comments Plt Morph (test code = Normal (12/12/2012 N Plt Morph) 02:50:00) [facility] CenterJogsidsCKVMWQCZN8236-97-26 08:50:00 Test Item Value Reference Range Interpretation Comments Bili Total (test code = Bili Total) 0.5 0.2-1.3 N [facility] CenterXbxeqzfPDURSGLKE4763-62-83 08:50:00 Test Item Value Reference Range Interpretation Comments AST (test code = AST) 23 See_Comment N [Auto mated message] The system which ge nerated this result transmit ashanti reference range : <=37. The reference range was not used to interpr et this result as carmen l/abnormal. [facility] UcmiiepLJYLFQYTS5090-47-40 08:50:00 Test Item Value Reference Range Interpretation Comments Glucose Lvl (test code = Glucose Lvl) 79 70-99 N [facility] CenterXaarufyPGOHBWZIB3037-98-73 08:50:00 Test Item Value Reference Range Interpretation Comments Alk Phos (test code = Alk Phos) 50 39-136 N [facility] PbwpvojDYNXDDWGE0821-89-42 08:50:00 Test Item Value Reference Range Interpretation Comments CO2 (test code = CO2) 24 24-32 N [facility] SdebgnyBIADCXEKE7182-92-15 08:50:00 Test Item Value Reference Range Interpretation Comments BUN (test code = BUN) 10 7-22 N [facility] CenterYlyzyksRBUCXQYEF1122-81-27 08:50:00 Test Item Value Reference Range Interpretation Comments Total Protein (test code = Total 5.6 6.4-8.4 L Protein) [facility] CenterNcdqzgsWSCZRJXIL4349-15-42 08:50:00 Test Item Value Reference Range Interpretation Comments ALT (test code = ALT) 30 See_Comment N [Auto mated message] The system which ge nerated this result transmit ashanti reference range : <=65. The reference range was not used to interpr et this result as carmen l/abnormal. [facility] MoibalvUAOADOQMU8116-83-40 08:50:00 Test Item Value Reference Range Interpretation Comments Albumin Lvl (test code = Albumin Lvl) 3.3 3.5-5.0 L [facility] CenterIhvjdhfQVOHYOVZO1481-27-48 08:50:00 Test Item Value Reference Range Interpretation Comments eGFR (test code = eGFR) 115 [facility] CenterXckzizdFBZEVTVSV2320-69-39 08:50:00 Test Item Value Reference Range Interpretation Comments Potassium Lvl (test code = Potassium 3.7 3.5-5.1 N Lvl) [facility] CenterPsafreyDCAHEKDMJ4907-61-40 08:50:00 Test Item Value Reference Range Interpretation Comments Sodium Lvl (test code = Sodium Lvl) 144 135-145 N [facility] CenterXpllyrwBWARHWDFX6405-18-86 08:50:00 Test Item Value Reference Range Interpretation Comments Creatinine Lvl (test code = Creatinine 0.7 0.5-1.4 N Lvl) [facility] CenterBgrmuaxMNIQNMZOJ2162-32-91 08:50:00 Test Item Value Reference Range Interpretation Comments Calcium Lvl (test code = Calcium Lvl) 8.3 8.5-10.5 L [facility] CenterJbdvvywGXVIIJRLM5973-42-67 08:50:00 Test Item Value Reference Range Interpretation Comments Chloride Lvl (test code = Chloride Lvl) 108 95-109 N [facility] CenterQmaqtkjWGSDABDNS5790-54-62 08:50:00 Test Item Value Reference Range Interpretation Comments B/C Ratio (test code = B/C Ratio) 14 6-25 N [facility] CenterVkhqbmqZMZXSTYRW5872-27-48 08:50:00 Test Item Value Reference Range Interpretation Comments Globulin (test code = Globulin) 2.3 2.0-4.0 N [facility] CenterIxxzgsbSXLYTBCBC9752-55-14 08:50:00 Test Item Value Reference Range Interpretation Comments AGAP (test code = AGAP) 15.7 10.0-20.0 N [facility] CenterVqvfrbqYRQKYRJSW3595-38-94 08:50:00 Test Item Value Reference Range Interpretation Comments A/G Ratio (test code = A/G Ratio) 1.4 0.7-1.6 N [facility] CenterWtizantEFZMRFJJMM6952-52-50 08:50:00 Test Item Value Reference Range Interpretation Comments MCHC (test code = MCHC) 32.0 32.0-36.0 N [facility] CenterIrejlkoZGTIFXDLKH0865-30-09 08:50:00 Test Item Value Reference Range Interpretation Comments Platelet (test code = Platelet) 229 133-450 N [facility] CenterAtvavlvOZBLPSOGRT4689-42-85 08:50:00 Test Item Value Reference Range Interpretation Comments MPV (test code = MPV) 9.5 7.4-10.4 N [facility] CenterIqknbbmUXAMTJOSYW3796-03-90 08:50:00 Test Item Value Reference Range Interpretation Comments RDW (test code = RDW) 16.3 11.5-14.5 H [facility] CenterVuittwlGLVIRXVEXY0285-34-62 08:50:00 Test Item Value Reference Range Interpretation Comments WBC (test code = WBC) 9.8 3.7-10.4 N [facility] CenterBhcvjbtAFAYMDZOFN5090-76-55 08:50:00 Test Item Value Reference Range Interpretation Comments RBC (test code = RBC) 3.57 4.20-5.40 L [facility] CenterXnhkuenHVIFKLNVZQ0393-67-11 08:50:00 Test Item Value Reference Range Interpretation Comments MCH (test code = MCH) 26.6 pg 27.0-31.0 L [facility] CenterPehypohOPQKTGBLZG4670-46-45 08:50:00 Test Item Value Reference Range Interpretation Comments Hct (test code = Hct) 29.7 36.0-48.0 L [facility] CenterYvqbfyeNRKSQDBOSC3908-92-46 08:50:00 Test Item Value Reference Range Interpretation Comments MCV (test code = MCV) 83.1 81.0-99.0 N [facility] CenterFhrjdosNHIMWGFBQV5987-42-86 08:50:00 Test Item Value Reference Range Interpretation Comments Hgb (test code = Hgb) 9.5 12.0-16.0 L [facility] CenterSvvzjbrGZLEYQEWZA8806-79-96 08:50:00 Test Item Value Reference Range Interpretation Comments Anisocyte (test code = 1+ *ABN*(12/12/2012 A Anisocyte) 02:50:00) [facility] CenterJxswwdmPWDIOYGGVN1303-76-47 08:50:00 Test Item Value Reference Range Interpretation Comments Monocytes # (test code 0.6 See_Comment N [Aut omated message] The = Monocytes #) system which generated this result tra nsmitted reference range : <=0.8. The reference r megan was not used to int erpret this result as normal/abnormal . [facility] CenterVawismpVKDOAZITGG2620-05-70 08:50:00 Test Item Value Reference Range Interpretation Comments Basophils # (test code 0.1 See_Comment N [Aut omated message] The = Basophils #) system which generated this result tra nsmitted reference range : <=0.2. The reference r megan was not used to int erpret this result as normal/abnormal . [facility] CenterIqkhrovVTGHEPLGZH6454-25-61 08:50:00 Test Item Value Reference Range Interpretation Comments Eosinophils # (test code 0.1 See_Comment N [A utomated message] The = Eosinophils #) system whic h generated this result tra nsmitted reference range : <=0.5. The reference r megan was not used to int erpret this result as normal/abnormal . [facility] CenterPfklldlPHSTONXANX4526-65-37 08:50:00 Test Item Value Reference Range Interpretation Comments Eosinophils (test code = 1.0 See_Comment N [A utomated message] The Eosinophils) system which ge nerated this result tra nsmitted reference range : <=4.0. The reference r megan was not used to int erpret this result as normal/abnormal . [facility] CenterPpzlaybUIEWOMURXI9927-23-91 08:50:00 Test Item Value Reference Range Interpretation Comments Monocytes (test code = Monocytes) 6.2 2.0-12.0 N [facility] CenterTvjfkccKSUMNUDWZS5002-72-29 08:50:00 Test Item Value Reference Range Interpretation Comments Basophils (test code = 0.6 See_Comment N [Aut omated message] The Basophils) system which ge nerated this result tra nsmitted reference range : <=1.0. The reference r megan was not used to int erpret this result as normal/abnormal . [facility] CenterPomnawjKSCXZWYYGI5311-89-73 08:50:00 Test Item Value Reference Range Interpretation Comments Lymphocytes # (test code = Lymphocytes 3.9 1.0-5.5 N #) [facility] CenterHfwcxlzQCICGEWKZS3630-24-06 08:50:00 Test Item Value Reference Range Interpretation Comments Segs-Bands # (test code = Segs-Bands #) 5.1 1.5-8.1 N [facility] CenterMvjblehGSSAIGQQLE8237-07-77 08:50:00 Test Item Value Reference Range Interpretation Comments Segs (test code = Segs) 52.6 45.0-75.0 N [facility] CenterPgmmaexOWGOPDHEEY7231-61-02 08:50:00 Test Item Value Reference Range Interpretation Comments Lymphocytes (test code = Lymphocytes) 39.6 20.0-40.0 N [facility] CenterUjaddzxRSXLNKCABZ9023-41-10 08:50:00 Test Item Value Reference Range Interpretation Comments Plt Morph (test code = Normal (12/12/2012 N Plt Morph) 02:50:00) [facility] CenterGaegnlwHYVNTEWAL3535-07-92 08:50:00 Test Item Value Reference Range Interpretation Comments Bili Total (test code = Bili Total) 0.5 0.2-1.3 N [facility] CenterGozafygICEKLOYSI2936-08-49 08:50:00 Test Item Value Reference Range Interpretation Comments AST (test code = AST) 23 See_Comment N [Auto mated message] The system which ge nerated this result transmit ashanti reference range : <=37. The reference range was not used to interpr et this result as carmen l/abnormal. [facility] CenterZqytraoXHZNVAWOY6082-66-17 08:50:00 Test Item Value Reference Range Interpretation Comments Glucose Lvl (test code = Glucose Lvl) 79 70-99 N [facility] CenterIwpqsduFSWASICDV8258-08-23 08:50:00 Test Item Value Reference Range Interpretation Comments Alk Phos (test code = Alk Phos) 50 39-136 N [facility] CenterDztjkkdLTAQITNRN0603-97-31 08:50:00 Test Item Value Reference Range Interpretation Comments CO2 (test code = CO2) 24 24-32 N [facility] CenterQmpxycgNRGTSYUMK6289-35-51 08:50:00 Test Item Value Reference Range Interpretation Comments BUN (test code = BUN) 10 7-22 N [facility] CenterQivhzudGUPEFNJJK8382-74-32 08:50:00 Test Item Value Reference Range Interpretation Comments Total Protein (test code = Total 5.6 6.4-8.4 L Protein) [facility] CenterUftrsspFZFKDHSJQ0202-08-12 08:50:00 Test Item Value Reference Range Interpretation Comments ALT (test code = ALT) 30 See_Comment N [Auto mated message] The system which ge nerated this result transmit ashanti reference range : <=65. The reference range was not used to interpr et this result as carmen l/abnormal. [facility] CenterMhnzqsqYZWGHOYBY8271-38-72 08:50:00 Test Item Value Reference Range Interpretation Comments Albumin Lvl (test code = Albumin Lvl) 3.3 3.5-5.0 L [facility] CenterJzewovdJQZONHPVS0721-97-04 08:50:00 Test Item Value Reference Range Interpretation Comments eGFR (test code = eGFR) 115 [facility] CenterAyxrkvoRQMEEIMQJ3119-32-74 08:50:00 Test Item Value Reference Range Interpretation Comments Potassium Lvl (test code = Potassium 3.7 3.5-5.1 N Lvl) [facility] CenterJhwusxkUVDBWNVRA8606-53-25 08:50:00 Test Item Value Reference Range Interpretation Comments Sodium Lvl (test code = Sodium Lvl) 144 135-145 N [facility] CenterSiifqjhRBDRNUCPP1544-60-60 08:50:00 Test Item Value Reference Range Interpretation Comments Creatinine Lvl (test code = Creatinine 0.7 0.5-1.4 N Lvl) [facility] CenterWehlewuNOKJAIXKH7050-95-79 08:50:00 Test Item Value Reference Range Interpretation Comments Calcium Lvl (test code = Calcium Lvl) 8.3 8.5-10.5 L [facility] CenterXdgsywmJKUORBBCI0439-53-37 08:50:00 Test Item Value Reference Range Interpretation Comments Chloride Lvl (test code = Chloride Lvl) 108 95-109 N [facility] CenterNgelatxRNYTMLUIH8975-54-77 08:50:00 Test Item Value Reference Range Interpretation Comments B/C Ratio (test code = B/C Ratio) 14 6-25 N [facility] CenterIjgdkagODHCAMBJX9846-17-71 08:50:00 Test Item Value Reference Range Interpretation Comments Globulin (test code = Globulin) 2.3 2.0-4.0 N [facility] CenterCvleburQIJKPKACF9088-85-69 08:50:00 Test Item Value Reference Range Interpretation Comments AGAP (test code = AGAP) 15.7 10.0-20.0 N [facility] CenterVesuyzlCQITONDKY6368-81-37 08:50:00 Test Item Value Reference Range Interpretation Comments A/G Ratio (test code = A/G Ratio) 1.4 0.7-1.6 N [facility] CenterOhwfifxOZZWWQOYBT7356-71-77 08:50:00 Test Item Value Reference Range Interpretation Comments MCHC (test code = MCHC) 32.0 32.0-36.0 N [facility] CenterTtogxasEVNCZLGOBT6863-52-18 08:50:00 Test Item Value Reference Range Interpretation Comments Platelet (test code = Platelet) 229 133-450 N [facility] CenterVilzhvsDHGMPSYPGP1432-60-27 08:50:00 Test Item Value Reference Range Interpretation Comments MPV (test code = MPV) 9.5 7.4-10.4 N [facility] CenterTmywwywTCGDMDFQDR8527-86-91 08:50:00 Test Item Value Reference Range Interpretation Comments RDW (test code = RDW) 16.3 11.5-14.5 H [facility] CenterPzymzpeVQURSKDDON4652-02-87 08:50:00 Test Item Value Reference Range Interpretation Comments WBC (test code = WBC) 9.8 3.7-10.4 N [facility] CenterUvbspwoOERFUKQDDA2702-08-53 08:50:00 Test Item Value Reference Range Interpretation Comments RBC (test code = RBC) 3.57 4.20-5.40 L [facility] CenterBxnwbkiRCKMWMRVAK3545-95-63 08:50:00 Test Item Value Reference Range Interpretation Comments MCH (test code = MCH) 26.6 pg 27.0-31.0 L [facility] CenterAxdtvnkLROFYWYSHD1017-34-06 08:50:00 Test Item Value Reference Range Interpretation Comments Hct (test code = Hct) 29.7 36.0-48.0 L [facility] CenterAhbyxzkHBCCRYPQZX4542-11-55 08:50:00 Test Item Value Reference Range Interpretation Comments MCV (test code = MCV) 83.1 81.0-99.0 N [facility] CenterYckadmnNXXHMTYSIK4532-90-70 08:50:00 Test Item Value Reference Range Interpretation Comments Hgb (test code = Hgb) 9.5 12.0-16.0 L [facility] CenterEqyayyvIVAESDQXHE9281-78-03 08:50:00 Test Item Value Reference Range Interpretation Comments Anisocyte (test code = 1+ *ABN*(12/12/2012 A Anisocyte) 02:50:00) [facility] CenterIsdcjgbYCWCOESHIT6569-08-67 08:50:00 Test Item Value Reference Range Interpretation Comments Monocytes # (test code 0.6 See_Comment N [Aut omated message] The = Monocytes #) system which generated this result tra nsmitted reference range : <=0.8. The reference r megan was not used to int erpret this result as normal/abnormal . [facility] CenterEkxfesbGYTKJYMVKK4439-23-24 08:50:00 Test Item Value Reference Range Interpretation Comments Basophils # (test code 0.1 See_Comment N [Aut omated message] The = Basophils #) system which generated this result tra nsmitted reference range : <=0.2. The reference r megan was not used to int erpret this result as normal/abnormal . [facility] CenterXahwbxmJZXLXOMKDZ0542-38-87 08:50:00 Test Item Value Reference Range Interpretation Comments Eosinophils # (test code 0.1 See_Comment N [A utomated message] The = Eosinophils #) system whic h generated this result tra nsmitted reference range : <=0.5. The reference r megan was not used to int erpret this result as normal/abnormal . [facility] CenterLhgmyfdPMJRBTNYNL7058-21-89 08:50:00 Test Item Value Reference Range Interpretation Comments Eosinophils (test code = 1.0 See_Comment N [A utomated message] The Eosinophils) system which ge nerated this result tra nsmitted reference range : <=4.0. The reference r megan was not used to int erpret this result as normal/abnormal . [facility] CenterNnhsgiqGHNCGVCXUX5387-40-43 08:50:00 Test Item Value Reference Range Interpretation Comments Monocytes (test code = Monocytes) 6.2 2.0-12.0 N [facility] CenterWoaouswTQCYPDVFVO6819-46-89 08:50:00 Test Item Value Reference Range Interpretation Comments Basophils (test code = 0.6 See_Comment N [Aut omated message] The Basophils) system which ge nerated this result tra nsmitted reference range : <=1.0. The reference r megan was not used to int erpret this result as normal/abnormal . [facility] CenterAkdrkrrOJKRCZQAAU9950-89-61 08:50:00 Test Item Value Reference Range Interpretation Comments Lymphocytes # (test code = Lymphocytes 3.9 1.0-5.5 N #) [facility] CenterQasxgngMMVGVHKSCR4138-38-56 08:50:00 Test Item Value Reference Range Interpretation Comments Segs-Bands # (test code = Segs-Bands #) 5.1 1.5-8.1 N [facility] CenterWgbyfpiFQPQDHFIEU7819-11-85 08:50:00 Test Item Value Reference Range Interpretation Comments Segs (test code = Segs) 52.6 45.0-75.0 N [facility] CenterBzzfxkbEISQTLZBDT5993-95-87 08:50:00 Test Item Value Reference Range Interpretation Comments Lymphocytes (test code = Lymphocytes) 39.6 20.0-40.0 N [facility] CenterTabinnkRECZSGUQHJ3744-75-38 08:50:00 Test Item Value Reference Range Interpretation Comments Plt Morph (test code = Normal (12/12/2012 N Plt Morph) 02:50:00) [facility] CenterKvdxhebAPGPOJJMH1260-01-82 08:50:00 Test Item Value Reference Range Interpretation Comments Bili Total (test code = Bili Total) 0.5 0.2-1.3 N [facility] CenterDmyjiahFBWHBEIYG5660-51-06 08:50:00 Test Item Value Reference Range Interpretation Comments AST (test code = AST) 23 See_Comment N [Auto mated message] The system which ge nerated this result transmit ashanti reference range : <=37. The reference range was not used to interpr et this result as carmen l/abnormal. [facility] CenterYtltbplXIKGKSKZW0861-03-39 08:50:00 Test Item Value Reference Range Interpretation Comments Glucose Lvl (test code = Glucose Lvl) 79 70-99 N [facility] CenterPinnzhkXEWQFNONW6790-22-39 08:50:00 Test Item Value Reference Range Interpretation Comments Alk Phos (test code = Alk Phos) 50 39-136 N [facility] CenterUnulodrNLQLURSCE3824-60-56 08:50:00 Test Item Value Reference Range Interpretation Comments CO2 (test code = CO2) 24 24-32 N [facility] CenterOicjebrNQLWPSZKF4515-35-46 08:50:00 Test Item Value Reference Range Interpretation Comments BUN (test code = BUN) 10 7-22 N [facility] CenterXivpjtzBJLUHTSWB6861-54-46 08:50:00 Test Item Value Reference Range Interpretation Comments Total Protein (test code = Total 5.6 6.4-8.4 L Protein) [facility] CenterJcxnqliVGUZGVZND1403-99-53 08:50:00 Test Item Value Reference Range Interpretation Comments ALT (test code = ALT) 30 See_Comment N [Auto mated message] The system which ge nerated this result transmit ashanti reference range : <=65. The reference range was not used to interpr et this result as carmen l/abnormal. [facility] CenterMfgxpysFGXXFZELF0169-65-41 08:50:00 Test Item Value Reference Range Interpretation Comments Albumin Lvl (test code = Albumin Lvl) 3.3 3.5-5.0 L [facility] CenterIwuwbhhWZVBSXDHH0986-44-75 08:50:00 Test Item Value Reference Range Interpretation Comments eGFR (test code = eGFR) 115 [facility] CenterHrohtmqXOZMZBMVO3241-19-67 08:50:00 Test Item Value Reference Range Interpretation Comments Potassium Lvl (test code = Potassium 3.7 3.5-5.1 N Lvl) [facility] CenterLqglxxwBICKGHTGP8273-79-04 08:50:00 Test Item Value Reference Range Interpretation Comments Sodium Lvl (test code = Sodium Lvl) 144 135-145 N [facility] CenterTfinlleLBRQADQUV5532-47-52 08:50:00 Test Item Value Reference Range Interpretation Comments Creatinine Lvl (test code = Creatinine 0.7 0.5-1.4 N Lvl) [facility] CenterIlcafveXIOCGRYYP4680-70-86 08:50:00 Test Item Value Reference Range Interpretation Comments Calcium Lvl (test code = Calcium Lvl) 8.3 8.5-10.5 L [facility] CenterQxnxhdxPIIGHLEHJ6813-61-78 08:50:00 Test Item Value Reference Range Interpretation Comments Chloride Lvl (test code = Chloride Lvl) 108 95-109 N [facility] CenterMydevbkSDRIKDZOM9676-48-36 08:50:00 Test Item Value Reference Range Interpretation Comments B/C Ratio (test code = B/C Ratio) 14 6-25 N [facility] CenterSpgqvxtDYRGGZUEC2573-36-02 08:50:00 Test Item Value Reference Range Interpretation Comments Globulin (test code = Globulin) 2.3 2.0-4.0 N [facility] CenterMjfhnhvSEXWVOCCX2721-09-52 08:50:00 Test Item Value Reference Range Interpretation Comments AGAP (test code = AGAP) 15.7 10.0-20.0 N [facility] CenterEflytloKPKTUFNBX8353-79-50 08:50:00 Test Item Value Reference Range Interpretation Comments A/G Ratio (test code = A/G Ratio) 1.4 0.7-1.6 N [facility] CenterHyluankKBIQBFCVHO0025-60-58 08:50:00 Test Item Value Reference Range Interpretation Comments MCHC (test code = MCHC) 32.0 32.0-36.0 N [facility] CenterFteajvkOWKCWLRJHG4970-09-69 08:50:00 Test Item Value Reference Range Interpretation Comments Platelet (test code = Platelet) 229 133-450 N [facility] CenterVhpgthkTMCIQHJLZC1735-93-92 08:50:00 Test Item Value Reference Range Interpretation Comments MPV (test code = MPV) 9.5 7.4-10.4 N [facility] CenterWnxetqoSSKRQMDKZU4966-89-11 08:50:00 Test Item Value Reference Range Interpretation Comments RDW (test code = RDW) 16.3 11.5-14.5 H [facility] CenterMhxjxfyESYBRRMWRZ3756-22-71 08:50:00 Test Item Value Reference Range Interpretation Comments WBC (test code = WBC) 9.8 3.7-10.4 N [facility] CenterOmaedeiBFYQHCKWIN3330-08-93 08:50:00 Test Item Value Reference Range Interpretation Comments RBC (test code = RBC) 3.57 4.20-5.40 L [facility] CenterEjltistSNBYLLLUPJ8443-73-03 08:50:00 Test Item Value Reference Range Interpretation Comments MCH (test code = MCH) 26.6 pg 27.0-31.0 L [facility] CenterWotklehHHMAOBCVIN2063-21-61 08:50:00 Test Item Value Reference Range Interpretation Comments Hct (test code = Hct) 29.7 36.0-48.0 L [facility] CenterAgqfkqdCQMSNKTPDD3679-52-66 08:50:00 Test Item Value Reference Range Interpretation Comments MCV (test code = MCV) 83.1 81.0-99.0 N [facility] CenterMcldturQPCOZOXXOX4030-79-36 08:50:00 Test Item Value Reference Range Interpretation Comments Hgb (test code = Hgb) 9.5 12.0-16.0 L [facility] CenterEygbwrjIWPGZOXQDT8968-85-10 08:50:00 Test Item Value Reference Range Interpretation Comments Anisocyte (test code = 1+ *ABN*(12/12/2012 A Anisocyte) 02:50:00) [facility] CenterSrkvvsmPDIMAGKUPL9234-44-04 08:50:00 Test Item Value Reference Range Interpretation Comments Monocytes # (test code 0.6 See_Comment N [Aut omated message] The = Monocytes #) system which generated this result tra nsmitted reference range : <=0.8. The reference r megan was not used to int erpret this result as normal/abnormal . [facility] CenterMbeaqveAELETVOSJT3731-42-60 08:50:00 Test Item Value Reference Range Interpretation Comments Basophils # (test code 0.1 See_Comment N [Aut omated message] The = Basophils #) system which generated this result tra nsmitted reference range : <=0.2. The reference r megan was not used to int erpret this result as normal/abnormal . [facility] CenterYlueotjXPHBOGOJLI2412-76-52 08:50:00 Test Item Value Reference Range Interpretation Comments Eosinophils # (test code 0.1 See_Comment N [A utomated message] The = Eosinophils #) system whic h generated this result tra nsmitted reference range : <=0.5. The reference r megan was not used to int erpret this result as normal/abnormal . [facility] CenterKjlaywvFVQHBMPYVY9103-47-66 08:50:00 Test Item Value Reference Range Interpretation Comments Eosinophils (test code = 1.0 See_Comment N [A utomated message] The Eosinophils) system which ge nerated this result tra nsmitted reference range : <=4.0. The reference r megan was not used to int erpret this result as normal/abnormal . [facility] CenterEoomhmfSVPPMJKLBM5302-32-12 08:50:00 Test Item Value Reference Range Interpretation Comments Monocytes (test code = Monocytes) 6.2 2.0-12.0 N [facility] CenterYeikjumTFVOCYVYYU2542-53-75 08:50:00 Test Item Value Reference Range Interpretation Comments Basophils (test code = 0.6 See_Comment N [Aut omated message] The Basophils) system which ge nerated this result tra nsmitted reference range : <=1.0. The reference r megan was not used to int erpret this result as normal/abnormal . [facility] CenterZhtoymoWUQYQSGBCN6659-29-55 08:50:00 Test Item Value Reference Range Interpretation Comments Lymphocytes # (test code = Lymphocytes 3.9 1.0-5.5 N #) [facility] CenterVkjyajtIIPSJCWKSZ3925-07-66 08:50:00 Test Item Value Reference Range Interpretation Comments Segs-Bands # (test code = Segs-Bands #) 5.1 1.5-8.1 N [facility] CenterLyfldxxSDUSFCXLYB1144-26-18 08:50:00 Test Item Value Reference Range Interpretation Comments Segs (test code = Segs) 52.6 45.0-75.0 N [facility] CenterQosfrvmJBOKEHINEB7151-08-28 08:50:00 Test Item Value Reference Range Interpretation Comments Lymphocytes (test code = Lymphocytes) 39.6 20.0-40.0 N [facility] CenterIoepzhjSPFXHNQJEL7633-91-49 08:50:00 Test Item Value Reference Range Interpretation Comments Plt Morph (test code = Normal (12/12/2012 N Plt Morph) 02:50:00) [facility] CenterHjahjuvPBNEHFKNO1597-08-07 08:50:00 Test Item Value Reference Range Interpretation Comments Bili Total (test code = Bili Total) 0.5 0.2-1.3 N [facility] CenterSbwoldjHGFVYTVUV5403-20-97 08:50:00 Test Item Value Reference Range Interpretation Comments AST (test code = AST) 23 See_Comment N [Auto mated message] The system which ge nerated this result transmit ashanti reference range : <=37. The reference range was not used to interpr et this result as carmen l/abnormal. [facility] CenterWgboxxlKWRYOIMNP9057-66-08 08:50:00 Test Item Value Reference Range Interpretation Comments Glucose Lvl (test code = Glucose Lvl) 79 70-99 N [facility] CenterZtvvmsxVWIPVHBBV5543-90-06 08:50:00 Test Item Value Reference Range Interpretation Comments Alk Phos (test code = Alk Phos) 50 39-136 N [facility] CenterIkjyulvGIWGJXQHF0381-92-35 08:50:00 Test Item Value Reference Range Interpretation Comments CO2 (test code = CO2) 24 24-32 N [facility] CenterIsmeceaLNDSDSHMB8595-50-21 08:50:00 Test Item Value Reference Range Interpretation Comments BUN (test code = BUN) 10 7-22 N [facility] CenterTbkayomBYIKMVGMK6319-86-44 08:50:00 Test Item Value Reference Range Interpretation Comments Total Protein (test code = Total 5.6 6.4-8.4 L Protein) [facility] CenterQcjypdlSAMELUJRV1594-38-37 08:50:00 Test Item Value Reference Range Interpretation Comments ALT (test code = ALT) 30 See_Comment N [Auto mated message] The system which ge nerated this result transmit ashanti reference range : <=65. The reference range was not used to interpr et this result as carmen l/abnormal. [facility] CenterGrezayxDBVTRURTK3684-76-08 08:50:00 Test Item Value Reference Range Interpretation Comments Albumin Lvl (test code = Albumin Lvl) 3.3 3.5-5.0 L [facility] CenterPqlqgraOMLDUXORZ9180-78-57 08:50:00 Test Item Value Reference Range Interpretation Comments eGFR (test code = eGFR) 115 [facility] CenterWvsbwipKSCPEGYAC9522-77-31 08:50:00 Test Item Value Reference Range Interpretation Comments Potassium Lvl (test code = Potassium 3.7 3.5-5.1 N Lvl) [facility] CenterTsfwvpoPNJFYIYEV4345-50-96 08:50:00 Test Item Value Reference Range Interpretation Comments Sodium Lvl (test code = Sodium Lvl) 144 135-145 N [facility] CenterVgvmjnbVIWADABYM7403-05-80 08:50:00 Test Item Value Reference Range Interpretation Comments Creatinine Lvl (test code = Creatinine 0.7 0.5-1.4 N Lvl) [facility] CenterArugmzgNOCUTCDXI0886-51-66 08:50:00 Test Item Value Reference Range Interpretation Comments Calcium Lvl (test code = Calcium Lvl) 8.3 8.5-10.5 L [facility] CenterWwhmmveSNMPDUKWS6126-38-18 08:50:00 Test Item Value Reference Range Interpretation Comments Chloride Lvl (test code = Chloride Lvl) 108 95-109 N [facility] CenterGjgttauMSBBPZYMU8846-04-91 08:50:00 Test Item Value Reference Range Interpretation Comments B/C Ratio (test code = B/C Ratio) 14 6-25 N [facility] CenterGhqvrfgNZDFLDJFZ3767-68-99 08:50:00 Test Item Value Reference Range Interpretation Comments Globulin (test code = Globulin) 2.3 2.0-4.0 N [facility] CenterCphmjekUPRFHLARW5382-17-07 08:50:00 Test Item Value Reference Range Interpretation Comments AGAP (test code = AGAP) 15.7 10.0-20.0 N [facility] CenterHxvflosURARIMSAS8872-21-45 08:50:00 Test Item Value Reference Range Interpretation Comments A/G Ratio (test code = A/G Ratio) 1.4 0.7-1.6 N [facility] CenterKrroguuEXWOLNKULY8847-07-56 08:50:00 Test Item Value Reference Range Interpretation Comments MCHC (test code = MCHC) 32.0 32.0-36.0 N [facility] CenterDvqncdvXHOGVZGRXH7959-26-60 08:50:00 Test Item Value Reference Range Interpretation Comments Platelet (test code = Platelet) 229 133-450 N [facility] CenterZovtirsFUQKVQPGGH7664-36-67 08:50:00 Test Item Value Reference Range Interpretation Comments MPV (test code = MPV) 9.5 7.4-10.4 N [facility] CenterHhwgciyULEDXLMJOZ6683-95-37 08:50:00 Test Item Value Reference Range Interpretation Comments RDW (test code = RDW) 16.3 11.5-14.5 H [facility] CenterXtzwtbuITLEBCZSFC5857-02-23 08:50:00 Test Item Value Reference Range Interpretation Comments WBC (test code = WBC) 9.8 3.7-10.4 N [facility] CenterVaysnanKQGYTAPPAV1176-26-66 08:50:00 Test Item Value Reference Range Interpretation Comments RBC (test code = RBC) 3.57 4.20-5.40 L [facility] CenterObmqmpaWSJTAHFUZW5279-53-70 08:50:00 Test Item Value Reference Range Interpretation Comments MCH (test code = MCH) 26.6 pg 27.0-31.0 L [facility] CenterRkrwftmKTBKQFCFMI6024-62-90 08:50:00 Test Item Value Reference Range Interpretation Comments Hct (test code = Hct) 29.7 36.0-48.0 L [facility] CenterLcjxqqoPVQLNSIXFX1015-98-97 08:50:00 Test Item Value Reference Range Interpretation Comments MCV (test code = MCV) 83.1 81.0-99.0 N [facility] CenterZzugirwYDEZYXGHLS1988-10-16 08:50:00 Test Item Value Reference Range Interpretation Comments Hgb (test code = Hgb) 9.5 12.0-16.0 L [facility] CenterFhxjykcXMPNMLOPOL5178-98-84 08:50:00 Test Item Value Reference Range Interpretation Comments Anisocyte (test code = 1+ *ABN*(12/12/2012 A Anisocyte) 02:50:00) [facility] CenterQqvmsmeGMFYGKYDYU9178-29-84 08:50:00 Test Item Value Reference Range Interpretation Comments Monocytes # (test code 0.6 See_Comment N [Aut omated message] The = Monocytes #) system which generated this result tra nsmitted reference range : <=0.8. The reference r megan was not used to int erpret this result as normal/abnormal . [facility] CenterGdiqdrpKWQNYPIFOX6406-53-18 08:50:00 Test Item Value Reference Range Interpretation Comments Basophils # (test code 0.1 See_Comment N [Aut omated message] The = Basophils #) system which generated this result tra nsmitted reference range : <=0.2. The reference r megan was not used to int erpret this result as normal/abnormal . [facility] CenterOqnmpkuOFPAGQORTK2857-94-01 08:50:00 Test Item Value Reference Range Interpretation Comments Eosinophils # (test code 0.1 See_Comment N [A utomated message] The = Eosinophils #) system whic h generated this result tra nsmitted reference range : <=0.5. The reference r megan was not used to int erpret this result as normal/abnormal . [facility] CenterVwyapdkFQSZKLXWFJ5328-07-06 08:50:00 Test Item Value Reference Range Interpretation Comments Eosinophils (test code = 1.0 See_Comment N [A utomated message] The Eosinophils) system which ge nerated this result tra nsmitted reference range : <=4.0. The reference r megan was not used to int erpret this result as normal/abnormal . [facility] CenterNabxyibFOKAAAIVFZ3946-56-73 08:50:00 Test Item Value Reference Range Interpretation Comments Monocytes (test code = Monocytes) 6.2 2.0-12.0 N [facility] CenterRkhrwsxBITFLZYQWJ9802-78-10 08:50:00 Test Item Value Reference Range Interpretation Comments Basophils (test code = 0.6 See_Comment N [Aut omated message] The Basophils) system which ge nerated this result tra nsmitted reference range : <=1.0. The reference r megan was not used to int erpret this result as normal/abnormal . [facility] CenterWjyjnkzSNGWUBWHRR5921-85-63 08:50:00 Test Item Value Reference Range Interpretation Comments Lymphocytes # (test code = Lymphocytes 3.9 1.0-5.5 N #) [facility] CenterPbsfitzFQJOUWQEHQ7981-96-42 08:50:00 Test Item Value Reference Range Interpretation Comments Segs-Bands # (test code = Segs-Bands #) 5.1 1.5-8.1 N [facility] CenterVbcipsyMQXPJPSUWQ9130-92-65 08:50:00 Test Item Value Reference Range Interpretation Comments Segs (test code = Segs) 52.6 45.0-75.0 N [facility] CenterOwuypwhDGEFZRFOVM2063-40-69 08:50:00 Test Item Value Reference Range Interpretation Comments Lymphocytes (test code = Lymphocytes) 39.6 20.0-40.0 N [facility] CenterSlvtiacZUAZMKDARM3983-58-02 08:50:00 Test Item Value Reference Range Interpretation Comments Plt Morph (test code = Normal (12/12/2012 N Plt Morph) 02:50:00) [facility] CenterZrsiowyJRCWLDHEE5252-11-09 08:50:00 Test Item Value Reference Range Interpretation Comments Bili Total (test code = Bili Total) 0.5 0.2-1.3 N [facility] CenterKsvtuyrDGQFAEAVF6657-51-37 08:50:00 Test Item Value Reference Range Interpretation Comments AST (test code = AST) 23 See_Comment N [Auto mated message] The system which ge nerated this result transmit ashanti reference range : <=37. The reference range was not used to interpr et this result as carmen l/abnormal. [facility]WinszhkSYDMDTMEA9325-63-04 08:50:00 Test Item Value Reference Range Interpretation Comments Bili Total (test code = Bili Total) 0.5 0.2-1.3 N [facility] CenterYrbjketXEAGTWQGI6950-53-79 08:50:00 Test Item Value Reference Range Interpretation Comments AST (test code = AST) 23 See_Comment N [Auto mated message] The system which ge nerated this result transmit ashanti reference range : <=37. The reference range was not used to interpr et this result as carmen l/abnormal. [facility] CenterQkxjplrVRHJTHBEY0409-27-28 08:50:00 Test Item Value Reference Range Interpretation Comments Glucose Lvl (test code = Glucose Lvl) 79 70-99 N [facility] CenterDugjvgwFKJKZKLFX3787-18-40 08:50:00 Test Item Value Reference Range Interpretation Comments Alk Phos (test code = Alk Phos) 50 39-136 N [facility] CenterErqcncgZRAROKTMC6966-81-11 08:50:00 Test Item Value Reference Range Interpretation Comments CO2 (test code = CO2) 24 24-32 N [facility] CenterAoykxqaZPOOLSWEO8544-64-38 08:50:00 Test Item Value Reference Range Interpretation Comments BUN (test code = BUN) 10 7-22 N [facility] CenterYekixgvQUFNFMKNW4629-86-37 08:50:00 Test Item Value Reference Range Interpretation Comments Total Protein (test code = Total 5.6 6.4-8.4 L Protein) [facility] CenterLwfcghrLLQTAKCHO9690-13-16 08:50:00 Test Item Value Reference Range Interpretation Comments ALT (test code = ALT) 30 See_Comment N [Auto mated message] The system which ge nerated this result transmit ashanti reference range : <=65. The reference range was not used to interpr et this result as carmen l/abnormal. [facility] CenterFxjwzfaHZENUFQBV7676-58-49 08:50:00 Test Item Value Reference Range Interpretation Comments Glucose Lvl (test code = Glucose Lvl) 79 70-99 N [facility] CenterNllbyjuHRCJOARMN3912-99-95 08:50:00 Test Item Value Reference Range Interpretation Comments Albumin Lvl (test code = Albumin Lvl) 3.3 3.5-5.0 L [facility] CenterGvhazfuPUIHVBRZR0984-04-00 08:50:00 Test Item Value Reference Range Interpretation Comments eGFR (test code = eGFR) 115 [facility] CenterXxfaeesONEBENYFD1748-55-10 08:50:00 Test Item Value Reference Range Interpretation Comments Potassium Lvl (test code = Potassium 3.7 3.5-5.1 N Lvl) [facility] CenterDlalfesJFBYZKTTW4992-26-65 08:50:00 Test Item Value Reference Range Interpretation Comments Sodium Lvl (test code = Sodium Lvl) 144 135-145 N [facility] CenterVewxdesZMITGWYVK1903-81-60 08:50:00 Test Item Value Reference Range Interpretation Comments Creatinine Lvl (test code = Creatinine 0.7 0.5-1.4 N Lvl) [facility] CenterNyicqvaJBMHDKITF9744-64-19 08:50:00 Test Item Value Reference Range Interpretation Comments Calcium Lvl (test code = Calcium Lvl) 8.3 8.5-10.5 L [facility] CenterPefexxnUJNWFVNXY2317-74-60 08:50:00 Test Item Value Reference Range Interpretation Comments Chloride Lvl (test code = Chloride Lvl) 108 95-109 N [facility] CenterZwdilukRKWUYCJEL0832-65-17 08:50:00 Test Item Value Reference Range Interpretation Comments B/C Ratio (test code = B/C Ratio) 14 6-25 N [facility] CenterPbxocwqKFFCUBGAG8884-07-16 08:50:00 Test Item Value Reference Range Interpretation Comments Globulin (test code = Globulin) 2.3 2.0-4.0 N [facility] CenterIqvmajiAJQRTHZXC5704-61-95 08:50:00 Test Item Value Reference Range Interpretation Comments AGAP (test code = AGAP) 15.7 10.0-20.0 N [facility] CenterKbvuhkbTXHDBRMRX8172-75-20 08:50:00 Test Item Value Reference Range Interpretation Comments Alk Phos (test code = Alk Phos) 50 39-136 N [facility] CenterNgswqbyAAKTPBZJY5405-34-65 08:50:00 Test Item Value Reference Range Interpretation Comments A/G Ratio (test code = A/G Ratio) 1.4 0.7-1.6 N [facility] CenterRcwbcqvNAXZBZSAMA5562-37-38 08:50:00 Test Item Value Reference Range Interpretation Comments MCHC (test code = MCHC) 32.0 32.0-36.0 N [facility] CenterEqjrgvrDQEEPVKSSQ0732-30-29 08:50:00 Test Item Value Reference Range Interpretation Comments Platelet (test code = Platelet) 229 133-450 N [facility] CenterFyercktQNVUAKDQDE4177-66-97 08:50:00 Test Item Value Reference Range Interpretation Comments MPV (test code = MPV) 9.5 7.4-10.4 N [facility] CenterGfsvranYVOHHHVRPW9492-31-85 08:50:00 Test Item Value Reference Range Interpretation Comments RDW (test code = RDW) 16.3 11.5-14.5 H [facility] CenterTthwjqxNYRUFAJNWE5663-03-08 08:50:00 Test Item Value Reference Range Interpretation Comments WBC (test code = WBC) 9.8 3.7-10.4 N [facility] CenterDcjapfoTWYJPKROND1234-07-12 08:50:00 Test Item Value Reference Range Interpretation Comments RBC (test code = RBC) 3.57 4.20-5.40 L [facility] CenterIbxpiwzVUFIWFHIBH1222-45-05 08:50:00 Test Item Value Reference Range Interpretation Comments MCH (test code = MCH) 26.6 pg 27.0-31.0 L [facility] CenterMommvmuXIUMBEMVLG5281-06-58 08:50:00 Test Item Value Reference Range Interpretation Comments Hct (test code = Hct) 29.7 36.0-48.0 L [facility] CenterLdgxzoeEFINZESUAF9718-86-46 08:50:00 Test Item Value Reference Range Interpretation Comments MCV (test code = MCV) 83.1 81.0-99.0 N [facility] CenterEdoowacXDGSHHXIR0356-36-46 08:50:00 Test Item Value Reference Range Interpretation Comments CO2 (test code = CO2) 24 24-32 N [facility] CenterYetysjtJWGXLUYWEN2086-41-68 08:50:00 Test Item Value Reference Range Interpretation Comments Hgb (test code = Hgb) 9.5 12.0-16.0 L [facility] CenterRecxilyIVJBYPXNJR6293-23-01 08:50:00 Test Item Value Reference Range Interpretation Comments Anisocyte (test code = 1+ *ABN*(12/12/2012 A Anisocyte) 02:50:00) [facility] CenterOhzwdfyIKOAECKUON7519-41-88 08:50:00 Test Item Value Reference Range Interpretation Comments Monocytes # (test code 0.6 See_Comment N [Aut omated message] The = Monocytes #) system which generated this result tra nsmitted reference range : <=0.8. The reference r megan was not used to int erpret this result as normal/abnormal . [facility] CenterFzvxkqcUIGVEYMPJF8168-68-77 08:50:00 Test Item Value Reference Range Interpretation Comments Basophils # (test code 0.1 See_Comment N [Aut omated message] The = Basophils #) system which generated this result tra nsmitted reference range : <=0.2. The reference r megan was not used to int erpret this result as normal/abnormal . [facility] CenterOqvuupgTIMWQKDQKO8042-04-34 08:50:00 Test Item Value Reference Range Interpretation Comments Eosinophils # (test code 0.1 See_Comment N [A utomated message] The = Eosinophils #) system whic h generated this result tra nsmitted reference range : <=0.5. The reference r megan was not used to int erpret this result as normal/abnormal . [facility] CenterYetzavaBOGBQOCDWQ2166-80-14 08:50:00 Test Item Value Reference Range Interpretation Comments Eosinophils (test code = 1.0 See_Comment N [A utomated message] The Eosinophils) system which ge nerated this result tra nsmitted reference range : <=4.0. The reference r megan was not used to int erpret this result as normal/abnormal . [facility] CenterEjnflrjERMPGAUFAB5043-75-56 08:50:00 Test Item Value Reference Range Interpretation Comments Monocytes (test code = Monocytes) 6.2 2.0-12.0 N [facility] CenterKucnexiMBFLOACCHK0453-16-21 08:50:00 Test Item Value Reference Range Interpretation Comments Basophils (test code = 0.6 See_Comment N [Aut omated message] The Basophils) system which ge nerated this result tra nsmitted reference range : <=1.0. The reference r megan was not used to int erpret this result as normal/abnormal . [facility] CenterSpsfgbyGWKACVEQOC3331-69-77 08:50:00 Test Item Value Reference Range Interpretation Comments Lymphocytes # (test code = Lymphocytes 3.9 1.0-5.5 N #) [facility] CenterHubachqMLAIHXYKMD4544-00-78 08:50:00 Test Item Value Reference Range Interpretation Comments Segs-Bands # (test code = Segs-Bands #) 5.1 1.5-8.1 N [facility] CenterKcodswiSJEFNDNCP9726-49-02 08:50:00 Test Item Value Reference Range Interpretation Comments BUN (test code = BUN) 10 7-22 N [facility] CenterJcnvezlYQGDXCAPMV0706-00-02 08:50:00 Test Item Value Reference Range Interpretation Comments Segs (test code = Segs) 52.6 45.0-75.0 N [facility] CenterSgodptfTEEDWJHPVW8861-99-35 08:50:00 Test Item Value Reference Range Interpretation Comments Lymphocytes (test code = Lymphocytes) 39.6 20.0-40.0 N [facility] CenterWobofexPBYGUAUOMJ5723-91-92 08:50:00 Test Item Value Reference Range Interpretation Comments Plt Morph (test code = Normal (12/12/2012 N Plt Morph) 02:50:00) [facility] CenterRcketoxASNOIZZGI0058-98-78 08:50:00 Test Item Value Reference Range Interpretation Comments Total Protein (test code = Total 5.6 6.4-8.4 L Protein) [facility] [facility]FipccxkDMTNMGWSH6532-53-[facility]00 Test Item Value Reference Range Interpretation Comments ALT (test code = ALT) 30 See_Comment N [Auto mated message] The system which ge nerated this result transmit ashanti reference range : <=65. The reference range was not used to interpr et this result as carmen l/abnormal. [facility] CenterPoedwwuEQDCFLOIV2448-12-45 08:50:00 Test Item Value Reference Range Interpretation Comments Albumin Lvl (test code = Albumin Lvl) 3.3 3.5-5.0 L [facility] CenterItalzliQWPHHTSVW8102-93-65 08:50:00 Test Item Value Reference Range Interpretation Comments eGFR (test code = eGFR) 115 [facility] CenterUnszkcwKFREZKBTX7003-10-21 08:50:00 Test Item Value Reference Range Interpretation Comments Potassium Lvl (test code = Potassium 3.7 3.5-5.1 N Lvl) [facility] CenterPumylaqNSSVXUISI4991-20-40 08:50:00 Test Item Value Reference Range Interpretation Comments Sodium Lvl (test code = Sodium Lvl) 144 135-145 N [facility] CenterYhnmprxXIXXVZKWV1492-76-43 08:50:00 Test Item Value Reference Range Interpretation Comments Creatinine Lvl (test code = Creatinine 0.7 0.5-1.4 N Lvl) [facility] CenterEpqanvsEUYUPPOHI7572-28-98 08:50:00 Test Item Value Reference Range Interpretation Comments Calcium Lvl (test code = Calcium Lvl) 8.3 8.5-10.5 L [facility] CenterWvjtcvyHKPUIABLS2954-02-07 08:50:00 Test Item Value Reference Range Interpretation Comments Chloride Lvl (test code = Chloride Lvl) 108 95-109 N [facility] CenterHafukgpDHYZNPGVX4847-46-30 08:50:00 Test Item Value Reference Range Interpretation Comments B/C Ratio (test code = B/C Ratio) 14 6-25 N [facility] CenterBtpdyjxCEEZYBRNI5497-75-45 08:50:00 Test Item Value Reference Range Interpretation Comments Globulin (test code = Globulin) 2.3 2.0-4.0 N [facility] CenterTukacvwVPNOZMIJU7871-11-07 08:50:00 Test Item Value Reference Range Interpretation Comments AGAP (test code = AGAP) 15.7 10.0-20.0 N [facility] CenterGzxsifsAGOTJLBXB3885-29-96 08:50:00 Test Item Value Reference Range Interpretation Comments A/G Ratio (test code = A/G Ratio) 1.4 0.7-1.6 N [facility] CenterBqnuxcyWLNMUDVKW5911-46-57 08:50:00 Test Item Value Reference Range Interpretation Comments Bili Total (test code = Bili Total) 0.5 0.2-1.3 N [facility] CenterGyvjpsxSZEUWXIJC2168-13-41 08:50:00 Test Item Value Reference Range Interpretation Comments AST (test code = AST) 23 See_Comment N [Auto mated message] The system which ge nerated this result transmit ashanti reference range : <=37. The reference range was not used to interpr et this result as carmen l/abnormal. [facility] CenterIfuhrvgWGEPHEIAY8566-06-90 08:50:00 Test Item Value Reference Range Interpretation Comments Glucose Lvl (test code = Glucose Lvl) 79 70-99 N [facility] CenterWtivkaoLNUGSDLEZ1610-13-66 08:50:00 Test Item Value Reference Range Interpretation Comments Alk Phos (test code = Alk Phos) 50 39-136 N [facility] CenterMerkkddEJJUKHUBQ8745-37-80 08:50:00 Test Item Value Reference Range Interpretation Comments CO2 (test code = CO2) 24 24-32 N [facility] CenterMiwpritEFFSBLQQW6015-52-93 08:50:00 Test Item Value Reference Range Interpretation Comments BUN (test code = BUN) 10 7-22 N [facility]KnwovvtWHPRTODJZT1412-06-59 08:50:00 Test Item Value Reference Range Interpretation Comments MCHC (test code = MCHC) 32.0 32.0-36.0 N [facility] CenterPhjfcxqQQBQFWCIN8842-76-64 08:50:00 Test Item Value Reference Range Interpretation Comments Total Protein (test code = Total 5.6 6.4-8.4 L Protein) [facility] CenterSjryvbvPDUCTVBMS8468-86-02 08:50:00 Test Item Value Reference Range Interpretation Comments ALT (test code = ALT) 30 See_Comment N [Auto mated message] The system which ge nerated this result transmit ashanti reference range : <=65. The reference range was not used to interpr et this result as carmen l/abnormal. [facility] CenterWyppydwLERGUYQYE1615-39-15 08:50:00 Test Item Value Reference Range Interpretation Comments Albumin Lvl (test code = Albumin Lvl) 3.3 3.5-5.0 L [facility] CenterQjkbuyoPCQDAJHMF5944-52-51 08:50:00 Test Item Value Reference Range Interpretation Comments eGFR (test code = eGFR) 115 [facility] CenterUegfnuxCRHRLBBTI9050-09-32 08:50:00 Test Item Value Reference Range Interpretation Comments Potassium Lvl (test code = Potassium 3.7 3.5-5.1 N Lvl) [facility] CenterUexofmfTSACBKXQM2324-74-71 08:50:00 Test Item Value Reference Range Interpretation Comments Sodium Lvl (test code = Sodium Lvl) 144 135-145 N [facility] CenterUmtujycYAYUSAWXL2776-58-51 08:50:00 Test Item Value Reference Range Interpretation Comments Creatinine Lvl (test code = Creatinine 0.7 0.5-1.4 N Lvl) [facility] CenterWnzmrspRKZQKAPGU6807-28-62 08:50:00 Test Item Value Reference Range Interpretation Comments Calcium Lvl (test code = Calcium Lvl) 8.3 8.5-10.5 L [facility] CenterRoqbbvtIWIOZTSKY4459-21-02 08:50:00 Test Item Value Reference Range Interpretation Comments Chloride Lvl (test code = Chloride Lvl) 108 95-109 N [facility] CenterGcmurfuELHDINBZF1659-09-71 08:50:00 Test Item Value Reference Range Interpretation Comments B/C Ratio (test code = B/C Ratio) 14 6-25 N [facility] CenterYatweguGIDWSCACRM7944-07-01 08:50:00 Test Item Value Reference Range Interpretation Comments Platelet (test code = Platelet) 229 133-450 N [facility] CenterLtyabrpWGGODFPMD4664-87-22 08:50:00 Test Item Value Reference Range Interpretation Comments Globulin (test code = Globulin) 2.3 2.0-4.0 N [facility] CenterVufezgrINFYLRUEZ9057-46-90 08:50:00 Test Item Value Reference Range Interpretation Comments AGAP (test code = AGAP) 15.7 10.0-20.0 N [facility] CenterVgjohfsIVZKMGYDH7526-19-99 08:50:00 Test Item Value Reference Range Interpretation Comments A/G Ratio (test code = A/G Ratio) 1.4 0.7-1.6 N [facility] CenterDfwsvodNRTQLQIWKZ5215-11-46 08:50:00 Test Item Value Reference Range Interpretation Comments MCHC (test code = MCHC) 32.0 32.0-36.0 N [facility] CenterPftarwoXZTMLZIIHL2528-78-82 08:50:00 Test Item Value Reference Range Interpretation Comments Platelet (test code = Platelet) 229 133-450 N [facility] CenterNhclyjyGSQLQLNJWC6192-33-88 08:50:00 Test Item Value Reference Range Interpretation Comments MPV (test code = MPV) 9.5 7.4-10.4 N [facility] CenterNtchmydEDPAYTEXAK1120-05-72 08:50:00 Test Item Value Reference Range Interpretation Comments RDW (test code = RDW) 16.3 11.5-14.5 H [facility] CenterBkrgfamZJNQNAJWSN1686-15-82 08:50:00 Test Item Value Reference Range Interpretation Comments WBC (test code = WBC) 9.8 3.7-10.4 N [facility] CenterZdlqqzqOJKZGYKBLH0717-26-60 08:50:00 Test Item Value Reference Range Interpretation Comments RBC (test code = RBC) 3.57 4.20-5.40 L [facility] CenterPalknqnMFKLLKPWBO5183-60-39 08:50:00 Test Item Value Reference Range Interpretation Comments MCH (test code = MCH) 26.6 pg 27.0-31.0 L [facility] CenterOszkdwpVDAMINAKFG6210-03-00 08:50:00 Test Item Value Reference Range Interpretation Comments MPV (test code = MPV) 9.5 7.4-10.4 N [facility] CenterLpjfitaFYSPWXQQHT4180-41-72 08:50:00 Test Item Value Reference Range Interpretation Comments Hct (test code = Hct) 29.7 36.0-48.0 L [facility] CenterLazbuyoPUIVSYBPPF8384-99-47 08:50:00 Test Item Value Reference Range Interpretation Comments MCV (test code = MCV) 83.1 81.0-99.0 N [facility] CenterOuibrrsEVSCIOZDDO1118-38-70 08:50:00 Test Item Value Reference Range Interpretation Comments Hgb (test code = Hgb) 9.5 12.0-16.0 L [facility] CenterLnqxfdkAPXIMYFPHZ1202-90-77 08:50:00 Test Item Value Reference Range Interpretation Comments Anisocyte (test code = 1+ *ABN*(12/12/2012 A Anisocyte) 02:50:00) [facility] CenterQpedlosQXVYZMULGN7283-71-68 08:50:00 Test Item Value Reference Range Interpretation Comments Monocytes # (test code 0.6 See_Comment N [Aut omated message] The = Monocytes #) system which generated this result tra nsmitted reference range : <=0.8. The reference r megan was not used to int erpret this result as normal/abnormal . [facility] CenterQcsputbFUZWNMSOTW1880-53-03 08:50:00 Test Item Value Reference Range Interpretation Comments Basophils # (test code 0.1 See_Comment N [Aut omated message] The = Basophils #) system which generated this result tra nsmitted reference range : <=0.2. The reference r megan was not used to int erpret this result as normal/abnormal . [facility] CenterUwtgxpqOBNYKZTBZH9449-72-13 08:50:00 Test Item Value Reference Range Interpretation Comments Eosinophils # (test code 0.1 See_Comment N [A utomated message] The = Eosinophils #) system whic h generated this result tra nsmitted reference range : <=0.5. The reference r megan was not used to int erpret this result as normal/abnormal . [facility] CenterNnlvoguWLDXFZYHSJ7056-91-26 08:50:00 Test Item Value Reference Range Interpretation Comments Eosinophils (test code = 1.0 See_Comment N [A utomated message] The Eosinophils) system which ge nerated this result tra nsmitted reference range : <=4.0. The reference r megan was not used to int erpret this result as normal/abnormal . [facility] CenterTxhpqonVXFJHWRLWA4305-79-59 08:50:00 Test Item Value Reference Range Interpretation Comments Monocytes (test code = Monocytes) 6.2 2.0-12.0 N [facility] CenterJahhcszHGLFPPECAH8728-32-15 08:50:00 Test Item Value Reference Range Interpretation Comments Basophils (test code = 0.6 See_Comment N [Aut omated message] The Basophils) system which ge nerated this result tra nsmitted reference range : <=1.0. The reference r megan was not used to int erpret this result as normal/abnormal . [facility] CenterFehjackCHRMCEQKYJ5367-48-31 08:50:00 Test Item Value Reference Range Interpretation Comments RDW (test code = RDW) 16.3 11.5-14.5 H [facility] CenterJhgghznFVVRYLSTFZ5935-32-51 08:50:00 Test Item Value Reference Range Interpretation Comments Lymphocytes # (test code = Lymphocytes 3.9 1.0-5.5 N #) [facility] CenterAuvcsomNCFAJSACDH3084-50-71 08:50:00 Test Item Value Reference Range Interpretation Comments Segs-Bands # (test code = Segs-Bands #) 5.1 1.5-8.1 N [facility] CenterOieozpfZLNBNBDUFO9364-48-10 08:50:00 Test Item Value Reference Range Interpretation Comments Segs (test code = Segs) 52.6 45.0-75.0 N [facility] CenterQcgxvqxNIVNPIAOYX4931-89-39 08:50:00 Test Item Value Reference Range Interpretation Comments Lymphocytes (test code = Lymphocytes) 39.6 20.0-40.0 N [facility] CenterTmobrmpYGDPYGOMXI0191-62-69 08:50:00 Test Item Value Reference Range Interpretation Comments Plt Morph (test code = Normal (12/12/2012 N Plt Morph) 02:50:00) [facility] CenterVtzkzggENCRCDKYVA8014-07-90 08:50:00 Test Item Value Reference Range Interpretation Comments WBC (test code = WBC) 9.8 3.7-10.4 N [facility] CenterUylenuvFFWCXHOYAQ3519-97-57 08:50:00 Test Item Value Reference Range Interpretation Comments RBC (test code = RBC) 3.57 4.20-5.40 L [facility] CenterFxfuotrIJUNWGUEHH7198-25-97 08:50:00 Test Item Value Reference Range Interpretation Comments MCH (test code = MCH) 26.6 pg 27.0-31.0 L [facility] CenterBdgshltFAFKDPAPDE1421-71-49 08:50:00 Test Item Value Reference Range Interpretation Comments Hct (test code = Hct) 29.7 36.0-48.0 L [facility] CenterDfflkpkVGISCEKEYP6075-19-78 08:50:00 Test Item Value Reference Range Interpretation Comments MCV (test code = MCV) 83.1 81.0-99.0 N [facility] CenterKaotkkwWCCJVMLXZL7111-05-92 08:50:00 Test Item Value Reference Range Interpretation Comments Hgb (test code = Hgb) 9.5 12.0-16.0 L [facility] CenterDozgmfaQIVHVYLFGL2801-76-26 08:50:00 Test Item Value Reference Range Interpretation Comments Anisocyte (test code = 1+ *ABN*(12/12/2012 A Anisocyte) 02:50:00) [facility] CenterOjzjdjjXPNCRIZLDA5749-25-73 08:50:00 Test Item Value Reference Range Interpretation Comments Monocytes # (test code 0.6 See_Comment N [Aut omated message] The = Monocytes #) system which generated this result tra nsmitted reference range : <=0.8. The reference r megan was not used to int erpret this result as normal/abnormal . [facility] CenterFqsbhnhTJTUBBYJGH1518-21-70 08:50:00 Test Item Value Reference Range Interpretation Comments Basophils # (test code 0.1 See_Comment N [Aut omated message] The = Basophils #) system which generated this result tra nsmitted reference range : <=0.2. The reference r megan was not used to int erpret this result as normal/abnormal . [facility] CenterDyrycmiBSKHDMTKOT3850-41-56 08:50:00 Test Item Value Reference Range Interpretation Comments Eosinophils # (test code 0.1 See_Comment N [A utomated message] The = Eosinophils #) system whic h generated this result tra nsmitted reference range : <=0.5. The reference r megan was not used to int erpret this result as normal/abnormal . [facility] CenterUlqskdkJBNVPSWYHC0472-91-26 08:50:00 Test Item Value Reference Range Interpretation Comments Eosinophils (test code = 1.0 See_Comment N [A utomated message] The Eosinophils) system which ge nerated this result tra nsmitted reference range : <=4.0. The reference r megan was not used to int erpret this result as normal/abnormal . [facility] CenterEfpkarpJQIHGXTKTV1838-74-44 08:50:00 Test Item Value Reference Range Interpretation Comments Monocytes (test code = Monocytes) 6.2 2.0-12.0 N [facility] CenterVypgyzhQLZSQIIBKD3525-15-37 08:50:00 Test Item Value Reference Range Interpretation Comments Basophils (test code = 0.6 See_Comment N [Aut omated message] The Basophils) system which ge nerated this result tra nsmitted reference range : <=1.0. The reference r megan was not used to int erpret this result as normal/abnormal . [facility] CenterKaolajfXSBBIAHHE3595-38-87 08:50:00 Test Item Value Reference Range Interpretation Comments Bili Total (test code = Bili Total) 0.5 0.2-1.3 N [facility] CenterXrrcbblGFJYHVKPL8611-14-45 08:50:00 Test Item Value Reference Range Interpretation Comments AST (test code = AST) 23 See_Comment N [Auto mated message] The system which ge nerated this result transmit ashanti reference range : <=37. The reference range was not used to interpr et this result as carmen l/abnormal. [facility] CenterLsahegvOQLCWBQRM6760-43-17 08:50:00 Test Item Value Reference Range Interpretation Comments Glucose Lvl (test code = Glucose Lvl) 79 70-99 N [facility] CenterApznurbJRYOUHNMG2546-48-91 08:50:00 Test Item Value Reference Range Interpretation Comments Alk Phos (test code = Alk Phos) 50 39-136 N [facility] CenterXdrtxsnPPHFWJNHDA7352-76-10 08:50:00 Test Item Value Reference Range Interpretation Comments Lymphocytes # (test code = Lymphocytes 3.9 1.0-5.5 N #) [facility] CenterMyyjidiCZUBMYGNT6895-24-46 08:50:00 Test Item Value Reference Range Interpretation Comments CO2 (test code = CO2) 24 24-32 N [facility] CenterXuufswuSHVYNVPCR7329-55-13 08:50:00 Test Item Value Reference Range Interpretation Comments BUN (test code = BUN) 10 7-22 N [facility] CenterHethtksKEQUCUGOZ6611-32-43 08:50:00 Test Item Value Reference Range Interpretation Comments Total Protein (test code = Total 5.6 6.4-8.4 L Protein) [facility] CenterZphoooaMIJHNROYB4916-21-99 08:50:00 Test Item Value Reference Range Interpretation Comments ALT (test code = ALT) 30 See_Comment N [Auto mated message] The system which ge nerated this result transmit ashanti reference range : <=65. The reference range was not used to interpr et this result as carmen l/abnormal. [facility] CenterRwrzpukEPJNSCRNZ1303-41-69 08:50:00 Test Item Value Reference Range Interpretation Comments Albumin Lvl (test code = Albumin Lvl) 3.3 3.5-5.0 L [facility] CenterIysxemuXGBSSDQDK6881-10-45 08:50:00 Test Item Value Reference Range Interpretation Comments eGFR (test code = eGFR) 115 [facility] CenterDeprqwcLIZHIILSO2260-31-77 08:50:00 Test Item Value Reference Range Interpretation Comments Potassium Lvl (test code = Potassium 3.7 3.5-5.1 N Lvl) [facility] CenterLqmvyntPWQTYXXIX4863-56-77 08:50:00 Test Item Value Reference Range Interpretation Comments Sodium Lvl (test code = Sodium Lvl) 144 135-145 N [facility] CenterStrpthhHVOYWDGHA6301-40-26 08:50:00 Test Item Value Reference Range Interpretation Comments Creatinine Lvl (test code = Creatinine 0.7 0.5-1.4 N Lvl) [facility] CenterQkpkbbuCMQFCSOOE1113-96-50 08:50:00 Test Item Value Reference Range Interpretation Comments Calcium Lvl (test code = Calcium Lvl) 8.3 8.5-10.5 L [facility] CenterKppzrluLZSMKSJZFZ3188-37-45 08:50:00 Test Item Value Reference Range Interpretation Comments Segs-Bands # (test code = Segs-Bands #) 5.1 1.5-8.1 N [facility] CenterUbtcuxsFAHDMCRRM0157-65-90 08:50:00 Test Item Value Reference Range Interpretation Comments Chloride Lvl (test code = Chloride Lvl) 108 95-109 N [facility] CenterZnhcnhpMQJMUKYTE2906-15-81 08:50:00 Test Item Value Reference Range Interpretation Comments B/C Ratio (test code = B/C Ratio) 14 6-25 N [facility] CenterCbyclbdXPIYVBIYC7774-56-83 08:50:00 Test Item Value Reference Range Interpretation Comments Globulin (test code = Globulin) 2.3 2.0-4.0 N [facility] CenterGyxyqjcVZXZKWGBE1612-57-47 08:50:00 Test Item Value Reference Range Interpretation Comments AGAP (test code = AGAP) 15.7 10.0-20.0 N [facility] CenterMtkrjaePFLFCHOHM5322-81-05 08:50:00 Test Item Value Reference Range Interpretation Comments A/G Ratio (test code = A/G Ratio) 1.4 0.7-1.6 N [facility] CenterZsesmphPVYLCMJEXF7193-99-67 08:50:00 Test Item Value Reference Range Interpretation Comments MCHC (test code = MCHC) 32.0 32.0-36.0 N [facility] CenterUnzpvgyAFAEXWUQYO5658-56-26 08:50:00 Test Item Value Reference Range Interpretation Comments Platelet (test code = Platelet) 229 133-450 N [facility] CenterDeoydsxNZABKKSVOV6549-45-06 08:50:00 Test Item Value Reference Range Interpretation Comments MPV (test code = MPV) 9.5 7.4-10.4 N [facility] CenterTzpeznsYHJWGARWVJ6598-50-00 08:50:00 Test Item Value Reference Range Interpretation Comments RDW (test code = RDW) 16.3 11.5-14.5 H [facility] CenterCwjnjhsSWZNKYKHKH0673-13-52 08:50:00 Test Item Value Reference Range Interpretation Comments WBC (test code = WBC) 9.8 3.7-10.4 N [facility] CenterDsxvgmwEVPJTNQRSN4557-62-43 08:50:00 Test Item Value Reference Range Interpretation Comments Segs (test code = Segs) 52.6 45.0-75.0 N [facility] CenterKbnqijaBXLGBRBJDU2339-94-54 08:50:00 Test Item Value Reference Range Interpretation Comments RBC (test code = RBC) 3.57 4.20-5.40 L [facility] CenterBjvfzavSHAZNVUHOT7116-28-14 08:50:00 Test Item Value Reference Range Interpretation Comments MCH (test code = MCH) 26.6 pg 27.0-31.0 L [facility] CenterOsgcxdzHSHOICXDIP9624-86-31 08:50:00 Test Item Value Reference Range Interpretation Comments Hct (test code = Hct) 29.7 36.0-48.0 L [facility] CenterItpaszzYSZRBAHGJF9216-83-41 08:50:00 Test Item Value Reference Range Interpretation Comments MCV (test code = MCV) 83.1 81.0-99.0 N [facility] CenterKzuuhacAZHJZCIFWL1584-74-25 08:50:00 Test Item Value Reference Range Interpretation Comments Hgb (test code = Hgb) 9.5 12.0-16.0 L [facility] CenterXibgntiRODRJTPXXV7897-21-91 08:50:00 Test Item Value Reference Range Interpretation Comments Anisocyte (test code = 1+ *ABN*(12/12/2012 A Anisocyte) 02:50:00) [facility] CenterDvoqdcxFESEGSHEAM0392-97-93 08:50:00 Test Item Value Reference Range Interpretation Comments Monocytes # (test code 0.6 See_Comment N [Aut omated message] The = Monocytes #) system which generated this result tra nsmitted reference range : <=0.8. The reference r megan was not used to int erpret this result as normal/abnormal . [facility] CenterBkkejknWZEPEGKDYH9211-84-56 08:50:00 Test Item Value Reference Range Interpretation Comments Basophils # (test code 0.1 See_Comment N [Aut omated message] The = Basophils #) system which generated this result tra nsmitted reference range : <=0.2. The reference r megan was not used to int erpret this result as normal/abnormal . [facility] CenterVkqkuvrYJXDQYTOPE6638-15-02 08:50:00 Test Item Value Reference Range Interpretation Comments Eosinophils # (test code 0.1 See_Comment N [A utomated message] The = Eosinophils #) system whic h generated this result tra nsmitted reference range : <=0.5. The reference r megan was not used to int erpret this result as normal/abnormal . [facility] CenterDdvaacjUMHCWGWBUN3057-14-68 08:50:00 Test Item Value Reference Range Interpretation Comments Eosinophils (test code = 1.0 See_Comment N [A utomated message] The Eosinophils) system which ge nerated this result tra nsmitted reference range : <=4.0. The reference r megan was not used to int erpret this result as normal/abnormal . [facility] CenterDgxkrgvCTHKVHGUYA1666-23-36 08:50:00 Test Item Value Reference Range Interpretation Comments Lymphocytes (test code = Lymphocytes) 39.6 20.0-40.0 N [facility] CenterKbywprkXMFWTXRJMF7465-98-65 08:50:00 Test Item Value Reference Range Interpretation Comments Monocytes (test code = Monocytes) 6.2 2.0-12.0 N [facility] CenterPfxyrikNEUPBAPKXT9594-69-87 08:50:00 Test Item Value Reference Range Interpretation Comments Basophils (test code = 0.6 See_Comment N [Aut omated message] The Basophils) system which ge nerated this result tra nsmitted reference range : <=1.0. The reference r megan was not used to int erpret this result as normal/abnormal . [facility] CenterEsoacfxBGJCONJKZR8734-68-07 08:50:00 Test Item Value Reference Range Interpretation Comments Lymphocytes # (test code = Lymphocytes 3.9 1.0-5.5 N #) [facility] CenterShdmebjMOJWFVVKRP0460-41-76 08:50:00 Test Item Value Reference Range Interpretation Comments Segs-Bands # (test code = Segs-Bands #) 5.1 1.5-8.1 N [facility] CenterHqqesivYRCNVAOFUX9723-46-42 08:50:00 Test Item Value Reference Range Interpretation Comments Segs (test code = Segs) 52.6 45.0-75.0 N [facility] CenterObyeumjXWOIGRXJAM6863-90-06 08:50:00 Test Item Value Reference Range Interpretation Comments Lymphocytes (test code = Lymphocytes) 39.6 20.0-40.0 N [facility] CenterGqsuceqDJSMTQZWHR0293-33-81 08:50:00 Test Item Value Reference Range Interpretation Comments Plt Morph (test code = Normal (12/12/2012 N Plt Morph) 02:50:00) [facility] CenterEigvplaQIXGKPETVN7987-96-73 08:50:00 Test Item Value Reference Range Interpretation Comments Plt Morph (test code = Normal (12/12/2012 N Plt Morph) 02:50:00) [facility] CenterUojczdeXGXEFFQOF5320-01-81 08:50:00 Test Item Value Reference Range Interpretation Comments Bili Total (test code = Bili Total) 0.5 0.2-1.3 N [facility] CenterXsovvneOFJZBDAAU2709-30-33 08:50:00 Test Item Value Reference Range Interpretation Comments AST (test code = AST) 23 See_Comment N [Auto mated message] The system which ge nerated this result transmit ashanti reference range : <=37. The reference range was not used to interpr et this result as carmen l/abnormal. [facility] CenterUtwhsspXHQGHOYDN0133-82-11 08:50:00 Test Item Value Reference Range Interpretation Comments Glucose Lvl (test code = Glucose Lvl) 79 70-99 N [facility] CenterOzixnbwVGERLAYEA3774-07-28 08:50:00 Test Item Value Reference Range Interpretation Comments Alk Phos (test code = Alk Phos) 50 39-136 N [facility] CenterEthzrdzGHTGGHBAL8039-61-40 08:50:00 Test Item Value Reference Range Interpretation Comments CO2 (test code = CO2) 24 24-32 N [facility] CenterMyiksvsQIDXOGZKP7364-59-60 08:50:00 Test Item Value Reference Range Interpretation Comments BUN (test code = BUN) 10 7-22 N [facility] CenterBfyvloiKJCURTQGS0436-68-04 08:50:00 Test Item Value Reference Range Interpretation Comments Total Protein (test code = Total 5.6 6.4-8.4 L Protein) [facility] CenterTcivxzzYGSMBLPZY1873-42-26 08:50:00 Test Item Value Reference Range Interpretation Comments ALT (test code = ALT) 30 See_Comment N [Auto mated message] The system which ge nerated this result transmit ashanti reference range : <=65. The reference range was not used to interpr et this result as carmen l/abnormal. [facility]CsazidaBBTZUOXBD0648-83-44 08:50:00 Test Item Value Reference Range Interpretation Comments Albumin Lvl (test code = Albumin Lvl) 3.3 3.5-5.0 L [facility] CenterZakpubgNDLMJJBYF3968-72-38 08:50:00 Test Item Value Reference Range Interpretation Comments eGFR (test code = eGFR) 115 [facility] CenterSbqtinuKBLNIEARN5307-22-32 08:50:00 Test Item Value Reference Range Interpretation Comments Potassium Lvl (test code = Potassium 3.7 3.5-5.1 N Lvl) [facility] CenterAahrveoBAHTWWAXV8885-53-93 08:50:00 Test Item Value Reference Range Interpretation Comments Sodium Lvl (test code = Sodium Lvl) 144 135-145 N [facility] CenterQztbarhECAUHCSUA2431-29-74 08:50:00 Test Item Value Reference Range Interpretation Comments Creatinine Lvl (test code = Creatinine 0.7 0.5-1.4 N Lvl) [facility] CenterFtuemitYLAETQNPS1071-09-07 08:50:00 Test Item Value Reference Range Interpretation Comments Calcium Lvl (test code = Calcium Lvl) 8.3 8.5-10.5 L [facility] CenterNakcjuaHPXWDKAHY8327-48-73 08:50:00 Test Item Value Reference Range Interpretation Comments Chloride Lvl (test code = Chloride Lvl) 108 95-109 N [facility] CenterNygpicjQXYWPQCLB5328-52-41 08:50:00 Test Item Value Reference Range Interpretation Comments B/C Ratio (test code = B/C Ratio) 14 6-25 N [facility] CenterZxbxzelWADVVXQWE5365-71-32 08:50:00 Test Item Value Reference Range Interpretation Comments Globulin (test code = Globulin) 2.3 2.0-4.0 N [facility] CenterHvlyzckNRUPTFLFH2182-92-51 08:50:00 Test Item Value Reference Range Interpretation Comments AGAP (test code = AGAP) 15.7 10.0-20.0 N [facility] CenterPnxbwwvLIWGGQWTJ8378-38-40 08:50:00 Test Item Value Reference Range Interpretation Comments A/G Ratio (test code = A/G Ratio) 1.4 0.7-1.6 N [facility]SymuhqzFNODCLGGDH8436-18-58 08:50:00 Test Item Value Reference Range Interpretation Comments MCHC (test code = MCHC) 32.0 32.0-36.0 N [facility] CenterTkpenorGTQUXTQSMQ4783-89-31 08:50:00 Test Item Value Reference Range Interpretation Comments Platelet (test code = Platelet) 229 133-450 N [facility] CenterGgatvlhDFQVDLXGXR7687-52-19 08:50:00 Test Item Value Reference Range Interpretation Comments MPV (test code = MPV) 9.5 7.4-10.4 N [facility] CenterAtwxpfpFOSSLZVIJV0145-19-59 08:50:00 Test Item Value Reference Range Interpretation Comments RDW (test code = RDW) 16.3 11.5-14.5 H [facility] CenterAxbqywoRNEOQNHBKC3693-38-16 08:50:00 Test Item Value Reference Range Interpretation Comments WBC (test code = WBC) 9.8 3.7-10.4 N [facility] CenterNfdycfaXFBSYDLOVH1802-65-18 08:50:00 Test Item Value Reference Range Interpretation Comments RBC (test code = RBC) 3.57 4.20-5.40 L [facility] CenterDntjzxpFTCYWXXKRM6184-30-80 08:50:00 Test Item Value Reference Range Interpretation Comments MCH (test code = MCH) 26.6 pg 27.0-31.0 L [facility] CenterAvixpksLZJRUDOYGO1036-20-48 08:50:00 Test Item Value Reference Range Interpretation Comments Hct (test code = Hct) 29.7 36.0-48.0 L [facility] CenterMdnzsspSWCXOHGZPW0770-72-78 08:50:00 Test Item Value Reference Range Interpretation Comments MCV (test code = MCV) 83.1 81.0-99.0 N [facility] CenterWlswwwmPOOJFNADXP3322-85-03 08:50:00 Test Item Value Reference Range Interpretation Comments Hgb (test code = Hgb) 9.5 12.0-16.0 L [facility] CenterFmljcksZSPQAEIEMF8134-99-97 08:50:00 Test Item Value Reference Range Interpretation Comments Anisocyte (test code = 1+ *ABN*(12/12/2012 A Anisocyte) 02:50:00) [facility] CenterOlikvgxFKIBBMZOUN8365-11-35 08:50:00 Test Item Value Reference Range Interpretation Comments Monocytes # (test code 0.6 See_Comment N [Aut omated message] The = Monocytes #) system which generated this result tra nsmitted reference range : <=0.8. The reference r megan was not used to int erpret this result as normal/abnormal . [facility] CenterIaipxpiJIQUVWVUBP9948-61-26 08:50:00 Test Item Value Reference Range Interpretation Comments Basophils # (test code 0.1 See_Comment N [Aut omated message] The = Basophils #) system which generated this result tra nsmitted reference range : <=0.2. The reference r megan was not used to int erpret this result as normal/abnormal . [facility] CenterBjwzkdbCELDEMIBTE5043-59-52 08:50:00 Test Item Value Reference Range Interpretation Comments Eosinophils # (test code 0.1 See_Comment N [A utomated message] The = Eosinophils #) system whic h generated this result tra nsmitted reference range : <=0.5. The reference r megan was not used to int erpret this result as normal/abnormal . [facility] CenterRsromcoJYFQOKPLKA0128-03-44 08:50:00 Test Item Value Reference Range Interpretation Comments Eosinophils (test code = 1.0 See_Comment N [A utomated message] The Eosinophils) system which ge nerated this result tra nsmitted reference range : <=4.0. The reference r megan was not used to int erpret this result as normal/abnormal . [facility] CenterBxvasheZOFYFWGWFU1293-86-54 08:50:00 Test Item Value Reference Range Interpretation Comments Monocytes (test code = Monocytes) 6.2 2.0-12.0 N [facility] CenterPqpzvegZAQNOPCQJD0207-47-43 08:50:00 Test Item Value Reference Range Interpretation Comments Basophils (test code = 0.6 See_Comment N [Aut omated message] The Basophils) system which ge nerated this result tra nsmitted reference range : <=1.0. The reference r megan was not used to int erpret this result as normal/abnormal . [facility] CenterZbbwkmvJVSAKHHKWN7513-15-59 08:50:00 Test Item Value Reference Range Interpretation Comments Lymphocytes # (test code = Lymphocytes 3.9 1.0-5.5 N #) [facility] CenterSwvoepjWLLKITJQHQ6467-45-44 08:50:00 Test Item Value Reference Range Interpretation Comments Segs-Bands # (test code = Segs-Bands #) 5.1 1.5-8.1 N [facility] CenterWkgafyxPYAUJTCPIK6053-73-24 08:50:00 Test Item Value Reference Range Interpretation Comments Segs (test code = Segs) 52.6 45.0-75.0 N [facility] CenterDurjnhhDWZEFSQAAU9155-70-12 08:50:00 Test Item Value Reference Range Interpretation Comments Lymphocytes (test code = Lymphocytes) 39.6 20.0-40.0 N [facility] CenterTdggcluNHBKWYOPRI3641-04-92 08:50:00 Test Item Value Reference Range Interpretation Comments Plt Morph (test code = Normal (12/12/2012 N Plt Morph) 02:50:00) [facility] CenterZohjfonMDQNARNBZ7632-96-74 08:50:00 Test Item Value Reference Range Interpretation Comments Bili Total (test code = Bili Total) 0.5 0.2-1.3 N [facility] CenterHuqfdqvWWBSLDAEY9203-36-46 08:50:00 Test Item Value Reference Range Interpretation Comments AST (test code = AST) 23 See_Comment N [Auto mated message] The system which ge nerated this result transmit ashanti reference range : <=37. The reference range was not used to interpr et this result as carmen l/abnormal. [facility] CenterBedcxtrGGABUKGHW9694-81-91 08:50:00 Test Item Value Reference Range Interpretation Comments Glucose Lvl (test code = Glucose Lvl) 79 70-99 N [facility] CenterQtywlolMXWRAQHDK5421-54-93 08:50:00 Test Item Value Reference Range Interpretation Comments Alk Phos (test code = Alk Phos) 50 39-136 N [facility] CenterTdebrilPIXXLSHHS7215-27-52 08:50:00 Test Item Value Reference Range Interpretation Comments CO2 (test code = CO2) 24 24-32 N [facility] CenterDxawtpsZTHSKTOXL5114-05-19 08:50:00 Test Item Value Reference Range Interpretation Comments BUN (test code = BUN) 10 7-22 N [facility] CenterDbosotcFFHJDWYQU9343-39-55 08:50:00 Test Item Value Reference Range Interpretation Comments Total Protein (test code = Total 5.6 6.4-8.4 L Protein) [facility] CenterCsioyfpKDBQCWAVN1497-05-01 08:50:00 Test Item Value Reference Range Interpretation Comments ALT (test code = ALT) 30 See_Comment N [Auto mated message] The system which ge nerated this result transmit ashanti reference range : <=65. The reference range was not used to interpr et this result as carmen l/abnormal. [facility] CenterDkwlwudAAUHHHMXX5969-00-90 08:50:00 Test Item Value Reference Range Interpretation Comments Albumin Lvl (test code = Albumin Lvl) 3.3 3.5-5.0 L [facility] CenterWwdrdrkYWGPPNXPW4749-83-71 08:50:00 Test Item Value Reference Range Interpretation Comments eGFR (test code = eGFR) 115 [facility] CenterLwinwieNDQGEBDZK7616-07-18 08:50:00 Test Item Value Reference Range Interpretation Comments Potassium Lvl (test code = Potassium 3.7 3.5-5.1 N Lvl) [facility] CenterSphbmlrACFBZGGTG8355-80-50 08:50:00 Test Item Value Reference Range Interpretation Comments Sodium Lvl (test code = Sodium Lvl) 144 135-145 N [facility] CenterVuzsibqGORFONUFQ5632-09-28 08:50:00 Test Item Value Reference Range Interpretation Comments Creatinine Lvl (test code = Creatinine 0.7 0.5-1.4 N Lvl) [facility] CenterLjjrdsqATFPWNOPG2278-92-48 08:50:00 Test Item Value Reference Range Interpretation Comments Calcium Lvl (test code = Calcium Lvl) 8.3 8.5-10.5 L [facility] CenterGipxfafGWGLJHVHI6175-55-89 08:50:00 Test Item Value Reference Range Interpretation Comments Chloride Lvl (test code = Chloride Lvl) 108 95-109 N [facility] CenterWxzykcdEARVARPEI2681-20-30 08:50:00 Test Item Value Reference Range Interpretation Comments B/C Ratio (test code = B/C Ratio) 14 6-25 N [facility] CenterTvabpsjUSFPGBWMZ2101-95-79 08:50:00 Test Item Value Reference Range Interpretation Comments Globulin (test code = Globulin) 2.3 2.0-4.0 N [facility] CenterBfaalvaVNYRJAZUA6726-96-39 08:50:00 Test Item Value Reference Range Interpretation Comments AGAP (test code = AGAP) 15.7 10.0-20.0 N [facility] CenterElmdmzwBUOUTSTJU8454-97-23 08:50:00 Test Item Value Reference Range Interpretation Comments A/G Ratio (test code = A/G Ratio) 1.4 0.7-1.6 N [facility] CenterMkvahddMUSVYVPLVQ6526-40-86 08:50:00 Test Item Value Reference Range Interpretation Comments MCHC (test code = MCHC) 32.0 32.0-36.0 N [facility] CenterRrfdzwhKFWATHCRAJ2670-78-11 08:50:00 Test Item Value Reference Range Interpretation Comments Platelet (test code = Platelet) 229 133-450 N [facility] CenterVfupjryVOWVLVDMOW2209-23-71 08:50:00 Test Item Value Reference Range Interpretation Comments MPV (test code = MPV) 9.5 7.4-10.4 N [facility] CenterFbeezffAZKTMTNYCJ6288-48-61 08:50:00 Test Item Value Reference Range Interpretation Comments RDW (test code = RDW) 16.3 11.5-14.5 H [facility] CenterQxmifgnLVCLJZSCRY2685-71-39 08:50:00 Test Item Value Reference Range Interpretation Comments WBC (test code = WBC) 9.8 3.7-10.4 N [facility] CenterBsabgcjUNPJBTYFPP6777-75-06 08:50:00 Test Item Value Reference Range Interpretation Comments RBC (test code = RBC) 3.57 4.20-5.40 L [facility] CenterQthqonzMEPSSGRSLJ8180-96-64 08:50:00 Test Item Value Reference Range Interpretation Comments MCH (test code = MCH) 26.6 pg 27.0-31.0 L [facility] CenterAzqutnmWBQFDREFJE3592-59-11 08:50:00 Test Item Value Reference Range Interpretation Comments Hct (test code = Hct) 29.7 36.0-48.0 L [facility] CenterOmfscmrZQKNPHGDYS1536-62-22 08:50:00 Test Item Value Reference Range Interpretation Comments MCV (test code = MCV) 83.1 81.0-99.0 N [facility] CenterImiqyfxTWTZJWKUOJ1657-28-10 08:50:00 Test Item Value Reference Range Interpretation Comments Hgb (test code = Hgb) 9.5 12.0-16.0 L [facility] CenterAflfjlbQPJHVJFIIS6949-81-94 08:50:00 Test Item Value Reference Range Interpretation Comments Anisocyte (test code = 1+ *ABN*(12/12/2012 A Anisocyte) 02:50:00) [facility] CenterHodwdnuMWAFKCFEFZ0243-11-73 08:50:00 Test Item Value Reference Range Interpretation Comments Monocytes # (test code 0.6 See_Comment N [Aut omated message] The = Monocytes #) system which generated this result tra nsmitted reference range : <=0.8. The reference r megan was not used to int erpret this result as normal/abnormal . [facility] CenterGiksoxnKJUMFMAQKK9048-54-91 08:50:00 Test Item Value Reference Range Interpretation Comments Basophils # (test code 0.1 See_Comment N [Aut omated message] The = Basophils #) system which generated this result tra nsmitted reference range : <=0.2. The reference r megan was not used to int erpret this result as normal/abnormal . [facility] CenterEhytyzuLZNFZAQVMB9494-60-07 08:50:00 Test Item Value Reference Range Interpretation Comments Eosinophils # (test code 0.1 See_Comment N [A utomated message] The = Eosinophils #) system whic h generated this result tra nsmitted reference range : <=0.5. The reference r megan was not used to int erpret this result as normal/abnormal . [facility] CenterGumdljrCANJNKRJWW5266-22-71 08:50:00 Test Item Value Reference Range Interpretation Comments Eosinophils (test code = 1.0 See_Comment N [A utomated message] The Eosinophils) system which ge nerated this result tra nsmitted reference range : <=4.0. The reference r megan was not used to int erpret this result as normal/abnormal . [facility] CenterTqhziofYNWNOOCILY9581-42-29 08:50:00 Test Item Value Reference Range Interpretation Comments Monocytes (test code = Monocytes) 6.2 2.0-12.0 N [facility] CenterYbqqmeyGPKBXRLHLD0926-93-59 08:50:00 Test Item Value Reference Range Interpretation Comments Basophils (test code = 0.6 See_Comment N [Aut omated message] The Basophils) system which ge nerated this result tra nsmitted reference range : <=1.0. The reference r megan was not used to int erpret this result as normal/abnormal . [facility] CenterYhhibqnBWIACDMOIP5047-68-52 08:50:00 Test Item Value Reference Range Interpretation Comments Lymphocytes # (test code = Lymphocytes 3.9 1.0-5.5 N #) [facility] CenterHkyssasUIYBIUSGHN0221-51-21 08:50:00 Test Item Value Reference Range Interpretation Comments Segs-Bands # (test code = Segs-Bands #) 5.1 1.5-8.1 N [facility] CenterFxyihgkCQTQRYGWSP9338-83-45 08:50:00 Test Item Value Reference Range Interpretation Comments Segs (test code = Segs) 52.6 45.0-75.0 N [facility] CenterTmndfzlCZHSIPGEWI0020-92-63 08:50:00 Test Item Value Reference Range Interpretation Comments Lymphocytes (test code = Lymphocytes) 39.6 20.0-40.0 N [facility] CenterRizwhmoLKALAMMZLQ8870-58-56 08:50:00 Test Item Value Reference Range Interpretation Comments Plt Morph (test code = Normal (12/12/2012 N Plt Morph) 02:50:00) [facility] CenterEreetprVNIBVAWLL0737-36-87 08:50:00 Test Item Value Reference Range Interpretation Comments Bili Total (test code = Bili Total) 0.5 0.2-1.3 N [facility] CenterQtprwleAGPQDEYPF0614-41-42 08:50:00 Test Item Value Reference Range Interpretation Comments AST (test code = AST) 23 See_Comment N [Auto mated message] The system which ge nerated this result transmit ashanti reference range : <=37. The reference range was not used to interpr et this result as carmen l/abnormal. [facility] CenterMjbpzkgKDZPWAESW8610-05-19 08:50:00 Test Item Value Reference Range Interpretation Comments Glucose Lvl (test code = Glucose Lvl) 79 70-99 N [facility] CenterFmixxitEIKQDYBUG9539-65-76 08:50:00 Test Item Value Reference Range Interpretation Comments Alk Phos (test code = Alk Phos) 50 39-136 N [facility] CenterStrlnovYAKCMRETK0761-05-31 08:50:00 Test Item Value Reference Range Interpretation Comments CO2 (test code = CO2) 24 24-32 N [facility] CenterEnfaxfoISRLPQCSQ1699-33-57 08:50:00 Test Item Value Reference Range Interpretation Comments BUN (test code = BUN) 10 7-22 N [facility] CenterEthlnybRWKKGKDMR3390-56-62 08:50:00 Test Item Value Reference Range Interpretation Comments Total Protein (test code = Total 5.6 6.4-8.4 L Protein) [facility] CenterAdgsyozICLZXUDIT9415-77-72 08:50:00 Test Item Value Reference Range Interpretation Comments ALT (test code = ALT) 30 See_Comment N [Auto mated message] The system which ge nerated this result transmit ashanti reference range : <=65. The reference range was not used to interpr et this result as carmen l/abnormal. [facility] CenterZvqjpxmZGFLQIBDF7182-32-77 08:50:00 Test Item Value Reference Range Interpretation Comments Albumin Lvl (test code = Albumin Lvl) 3.3 3.5-5.0 L [facility] CenterQhkuhuhRTROHUROJ1831-91-91 08:50:00 Test Item Value Reference Range Interpretation Comments eGFR (test code = eGFR) 115 [facility] CenterKcuguuaQRRUONBLJ5856-59-23 08:50:00 Test Item Value Reference Range Interpretation Comments Potassium Lvl (test code = Potassium 3.7 3.5-5.1 N Lvl) [facility] CenterQnmwvtrQJCIQFICS9022-50-49 08:50:00 Test Item Value Reference Range Interpretation Comments Sodium Lvl (test code = Sodium Lvl) 144 135-145 N [facility] CenterWpqtebtDJXZDQROG9582-08-83 08:50:00 Test Item Value Reference Range Interpretation Comments Creatinine Lvl (test code = Creatinine 0.7 0.5-1.4 N Lvl) [facility] CenterZoenrxtEYKIEHBOF9296-19-83 08:50:00 Test Item Value Reference Range Interpretation Comments Calcium Lvl (test code = Calcium Lvl) 8.3 8.5-10.5 L [facility] CenterNlbjoheEAJUWRLQT4841-45-43 08:50:00 Test Item Value Reference Range Interpretation Comments Chloride Lvl (test code = Chloride Lvl) 108 95-109 N [facility] CenterRbprtszNFRJELOVD4974-85-61 08:50:00 Test Item Value Reference Range Interpretation Comments B/C Ratio (test code = B/C Ratio) 14 6-25 N [facility] CenterZarruqiQRVUERRVA8777-45-58 08:50:00 Test Item Value Reference Range Interpretation Comments Globulin (test code = Globulin) 2.3 2.0-4.0 N [facility] CenterUjyiaboCAHROZHPT9588-78-63 08:50:00 Test Item Value Reference Range Interpretation Comments AGAP (test code = AGAP) 15.7 10.0-20.0 N [facility] CenterAwsbtxkBFIZPGGSU3578-56-87 08:50:00 Test Item Value Reference Range Interpretation Comments A/G Ratio (test code = A/G Ratio) 1.4 0.7-1.6 N [facility] CenterQmrmalhRPZJYBTSWO0497-07-44 08:50:00 Test Item Value Reference Range Interpretation Comments MCHC (test code = MCHC) 32.0 32.0-36.0 N [facility] CenterTjhnmxzKLWFTKVWLL3381-21-64 08:50:00 Test Item Value Reference Range Interpretation Comments Platelet (test code = Platelet) 229 133-450 N [facility] CenterZhijwarEFFINGHOIP2406-97-68 08:50:00 Test Item Value Reference Range Interpretation Comments MPV (test code = MPV) 9.5 7.4-10.4 N [facility] CenterQppxelmDNJIQIAJUI0039-18-65 08:50:00 Test Item Value Reference Range Interpretation Comments RDW (test code = RDW) 16.3 11.5-14.5 H [facility] CenterHsjvcbnVQPATWIIDK9164-30-95 08:50:00 Test Item Value Reference Range Interpretation Comments WBC (test code = WBC) 9.8 3.7-10.4 N [facility] CenterHcrhgqjKVRZAILGMW8888-55-92 08:50:00 Test Item Value Reference Range Interpretation Comments RBC (test code = RBC) 3.57 4.20-5.40 L [facility] CenterUhujvjdFVQMLBMBCX3802-73-25 08:50:00 Test Item Value Reference Range Interpretation Comments MCH (test code = MCH) 26.6 pg 27.0-31.0 L [facility] CenterVzookroQEKUIKZQBZ2462-98-57 08:50:00 Test Item Value Reference Range Interpretation Comments Hct (test code = Hct) 29.7 36.0-48.0 L [facility] CenterRhkwmxgUHKUPJPDZR3777-72-60 08:50:00 Test Item Value Reference Range Interpretation Comments MCV (test code = MCV) 83.1 81.0-99.0 N [facility] CenterNabojwzZEAOVBVTQF6515-76-05 08:50:00 Test Item Value Reference Range Interpretation Comments Hgb (test code = Hgb) 9.5 12.0-16.0 L [facility] CenterBnxfmfzIIYPHDMOWZ6564-24-87 08:50:00 Test Item Value Reference Range Interpretation Comments Anisocyte (test code = 1+ *ABN*(12/12/2012 A Anisocyte) 02:50:00) [facility] CenterEhlghspGACRUBOAYY1128-24-32 08:50:00 Test Item Value Reference Range Interpretation Comments Monocytes # (test code 0.6 See_Comment N [Aut omated message] The = Monocytes #) system which generated this result tra nsmitted reference range : <=0.8. The reference r meagn was not used to int erpret this result as normal/abnormal . [facility] CenterEtcuernCDSYRIXFHM1318-83-25 08:50:00 Test Item Value Reference Range Interpretation Comments Basophils # (test code 0.1 See_Comment N [Aut omated message] The = Basophils #) system which generated this result tra nsmitted reference range : <=0.2. The reference r megan was not used to int erpret this result as normal/abnormal . [facility] CenterZidqqiwARMWTBDKKL0449-37-60 08:50:00 Test Item Value Reference Range Interpretation Comments Eosinophils # (test code 0.1 See_Comment N [A utomated message] The = Eosinophils #) system whic h generated this result tra nsmitted reference range : <=0.5. The reference r megan was not used to int erpret this result as normal/abnormal . [facility] CenterAtlgilrNFIXTKUNYU0480-24-92 08:50:00 Test Item Value Reference Range Interpretation Comments Eosinophils (test code = 1.0 See_Comment N [A utomated message] The Eosinophils) system which ge nerated this result tra nsmitted reference range : <=4.0. The reference r megan was not used to int erpret this result as normal/abnormal . [facility] CenterMsotidrYVCQNHAPBX3134-47-99 08:50:00 Test Item Value Reference Range Interpretation Comments Monocytes (test code = Monocytes) 6.2 2.0-12.0 N [facility] CenterIddydifBAKLEOLDRR5287-77-10 08:50:00 Test Item Value Reference Range Interpretation Comments Basophils (test code = 0.6 See_Comment N [Aut omated message] The Basophils) system which ge nerated this result tra nsmitted reference range : <=1.0. The reference r megna was not used to int erpret this result as normal/abnormal . [facility] CenterUlssifwKMBMPFICUN3314-24-19 08:50:00 Test Item Value Reference Range Interpretation Comments Lymphocytes # (test code = Lymphocytes 3.9 1.0-5.5 N #) [facility] CenterAeujotvOFTWRWBQEC7241-13-55 08:50:00 Test Item Value Reference Range Interpretation Comments Segs-Bands # (test code = Segs-Bands #) 5.1 1.5-8.1 N [facility] CenterQrwgvzeEXZATGJCIO3772-35-15 08:50:00 Test Item Value Reference Range Interpretation Comments Segs (test code = Segs) 52.6 45.0-75.0 N [facility] CenterEmsklzfPUFLEZYZAZ3289-19-81 08:50:00 Test Item Value Reference Range Interpretation Comments Lymphocytes (test code = Lymphocytes) 39.6 20.0-40.0 N [facility] CenterEffkxmqMCMVZQKNVU1890-57-38 08:50:00 Test Item Value Reference Range Interpretation Comments Plt Morph (test code = Normal (12/12/2012 N Plt Morph) 02:50:00) [facility] CenterEiemclwNWXIVQOGL5554-81-18 08:50:00 Test Item Value Reference Range Interpretation Comments Bili Total (test code = Bili Total) 0.5 0.2-1.3 N [facility] CenterOoqiqehLIBFUZCXC9726-53-66 08:50:00 Test Item Value Reference Range Interpretation Comments AST (test code = AST) 23 See_Comment N [Auto mated message] The system which ge nerated this result transmit ashanti reference range : <=37. The reference range was not used to interpr et this result as carmen l/abnormal. [facility] CenterCbasejkOHQXCUVZB5157-58-48 08:50:00 Test Item Value Reference Range Interpretation Comments Glucose Lvl (test code = Glucose Lvl) 79 70-99 N [facility] CenterRlprhqiIFIIYQKRF5502-28-10 08:50:00 Test Item Value Reference Range Interpretation Comments Alk Phos (test code = Alk Phos) 50 39-136 N [facility] CenterMpqcoxuQQEHWAWZE8314-83-86 08:50:00 Test Item Value Reference Range Interpretation Comments CO2 (test code = CO2) 24 24-32 N [facility] CenterTjsglvpHANCFDBWW3148-77-02 08:50:00 Test Item Value Reference Range Interpretation Comments BUN (test code = BUN) 10 7-22 N [facility] CenterAksetxxYWTGHZQYC7882-54-55 08:50:00 Test Item Value Reference Range Interpretation Comments Total Protein (test code = Total 5.6 6.4-8.4 L Protein) [facility] CenterTsbhggnIRHOFPCCF0175-93-35 08:50:00 Test Item Value Reference Range Interpretation Comments ALT (test code = ALT) 30 See_Comment N [Auto mated message] The system which ge nerated this result transmit ashanti reference range : <=65. The reference range was not used to interpr et this result as carmen l/abnormal. [facility]JojhanpEXHWWCQQK9390-97-88 08:50:00 Test Item Value Reference Range Interpretation Comments Albumin Lvl (test code = Albumin Lvl) 3.3 3.5-5.0 L [facility] CenterQmltlzwWCKYHDPKH1236-98-54 08:50:00 Test Item Value Reference Range Interpretation Comments eGFR (test code = eGFR) 115 [facility] CenterKidbunhTPZLVPNXR9093-64-49 08:50:00 Test Item Value Reference Range Interpretation Comments Potassium Lvl (test code = Potassium 3.7 3.5-5.1 N Lvl) [facility] CenterCvhspkfVWVQIPENG4831-87-49 08:50:00 Test Item Value Reference Range Interpretation Comments Sodium Lvl (test code = Sodium Lvl) 144 135-145 N [facility] CenterQdlnxzjCQUFMKEBO6969-01-40 08:50:00 Test Item Value Reference Range Interpretation Comments Creatinine Lvl (test code = Creatinine 0.7 0.5-1.4 N Lvl) [facility] CenterJuzihnwCFSWZPIEZ1107-35-03 08:50:00 Test Item Value Reference Range Interpretation Comments Calcium Lvl (test code = Calcium Lvl) 8.3 8.5-10.5 L [facility] CenterWixpjjuWWQQKMXPV6020-39-94 08:50:00 Test Item Value Reference Range Interpretation Comments Chloride Lvl (test code = Chloride Lvl) 108 95-109 N [facility] CenterXgxwltwDQVADFDGB1245-37-95 08:50:00 Test Item Value Reference Range Interpretation Comments B/C Ratio (test code = B/C Ratio) 14 6-25 N [facility] CenterTwzcounVXJBYFOZQ8747-29-40 08:50:00 Test Item Value Reference Range Interpretation Comments Globulin (test code = Globulin) 2.3 2.0-4.0 N [facility] CenterIhmebahAXFSAADMR7329-49-81 08:50:00 Test Item Value Reference Range Interpretation Comments AGAP (test code = AGAP) 15.7 10.0-20.0 N [facility] CenterGxufnbhWNGWKBMIM2484-22-34 08:50:00 Test Item Value Reference Range Interpretation Comments A/G Ratio (test code = A/G Ratio) 1.4 0.7-1.6 N [facility]XhgicfnXEUXNFJBVK5458-60-06 08:50:00 Test Item Value Reference Range Interpretation Comments MCHC (test code = MCHC) 32.0 32.0-36.0 N [facility] CenterWrmejelQDPZFSLAFF5667-84-38 08:50:00 Test Item Value Reference Range Interpretation Comments Platelet (test code = Platelet) 229 133-450 N [facility] CenterXrvhifxSHOPCMZJTI0776-40-65 08:50:00 Test Item Value Reference Range Interpretation Comments MPV (test code = MPV) 9.5 7.4-10.4 N [facility] CenterLzhstsxOHWQJAGKHU4777-24-81 08:50:00 Test Item Value Reference Range Interpretation Comments RDW (test code = RDW) 16.3 11.5-14.5 H [facility] CenterWzjqqaySFPBTWXXWV8985-48-74 08:50:00 Test Item Value Reference Range Interpretation Comments WBC (test code = WBC) 9.8 3.7-10.4 N [facility] CenterCeooupzCXBBLJSBIF7224-70-70 08:50:00 Test Item Value Reference Range Interpretation Comments RBC (test code = RBC) 3.57 4.20-5.40 L [facility] CenterMqxlmdiDQGECCBLTW2813-19-25 08:50:00 Test Item Value Reference Range Interpretation Comments MCH (test code = MCH) 26.6 pg 27.0-31.0 L [facility] CenterZlhxxpqIPKRZETQZR2861-84-30 08:50:00 Test Item Value Reference Range Interpretation Comments Hct (test code = Hct) 29.7 36.0-48.0 L [facility] CenterMcjnmzuJLZMHSZCDS0715-27-96 08:50:00 Test Item Value Reference Range Interpretation Comments MCV (test code = MCV) 83.1 81.0-99.0 N [facility] CenterZqdjcizOEWOZHNNTP2888-83-74 08:50:00 Test Item Value Reference Range Interpretation Comments Hgb (test code = Hgb) 9.5 12.0-16.0 L [facility] CenterIjxdzwoAKJKSXOUJS5439-90-48 08:50:00 Test Item Value Reference Range Interpretation Comments Anisocyte (test code = 1+ *ABN*(12/12/2012 A Anisocyte) 02:50:00) [facility] CenterNbpteofYPFQWKIXTJ8203-81-21 08:50:00 Test Item Value Reference Range Interpretation Comments Monocytes # (test code 0.6 See_Comment N [Aut omated message] The = Monocytes #) system which generated this result tra nsmitted reference range : <=0.8. The reference r megan was not used to int erpret this result as normal/abnormal . [facility] CenterTemabedQJXDSLMNPQ8645-64-97 08:50:00 Test Item Value Reference Range Interpretation Comments Basophils # (test code 0.1 See_Comment N [Aut omated message] The = Basophils #) system which generated this result tra nsmitted reference range : <=0.2. The reference r megan was not used to int erpret this result as normal/abnormal . [facility] CenterDgbwiwrCZIIYKSXKL7257-09-24 08:50:00 Test Item Value Reference Range Interpretation Comments Eosinophils # (test code 0.1 See_Comment N [A utomated message] The = Eosinophils #) system [facility] generated this result tra nsmitted reference range : <=0.5. The reference r megan was not used to int erpret this result as normal/abnormal . [facility] CenterUoxdwakSGFOWQKNUF8460-39-45 08:50:00 Test Item Value Reference Range Interpretation Comments Eosinophils (test code = 1.0 See_Comment N [A utomated message] The Eosinophils) system which ge nerated this result tra nsmitted reference range : <=4.0. The reference r megan was not used to int erpret this result as normal/abnormal . [facility] CenterErlkcmtFVXHIWFBQE7959-07-71 08:50:00 Test Item Value Reference Range Interpretation Comments Monocytes (test code = Monocytes) 6.2 2.0-12.0 N [facility] CenterDntdcztMFIQJJLTEA4493-43-05 08:50:00 Test Item Value Reference Range Interpretation Comments Basophils (test code = 0.6 See_Comment N [Aut omated message] The Basophils) system which ge nerated this result tra nsmitted reference range : <=1.0. The reference r megan was not used to int erpret this result as normal/abnormal . [facility] CenterFezvqzlFTTUSSZTSZ8080-14-87 08:50:00 Test Item Value Reference Range Interpretation Comments Lymphocytes # (test code = Lymphocytes 3.9 1.0-5.5 N #) [facility] CenterCuuflbxQAHMFAVYDV8371-61-99 08:50:00 Test Item Value Reference Range Interpretation Comments Segs-Bands # (test code = Segs-Bands #) 5.1 1.5-8.1 N [facility] CenterAzalfnjBTXDHRJETR5795-68-96 08:50:00 Test Item Value Reference Range Interpretation Comments Segs (test code = Segs) 52.6 45.0-75.0 N [facility] CenterDfamxsbBSABUYVPCZ6633-97-98 08:50:00 Test Item Value Reference Range Interpretation Comments Lymphocytes (test code = Lymphocytes) 39.6 20.0-40.0 N [facility] CenterJkzlcetIHVODUUDIR5948-15-17 08:50:00 Test Item Value Reference Range Interpretation Comments Plt Morph (test code = Normal (12/12/2012 N Plt Morph) 02:50:00) [facility] CenterZklenblYGSFCECIT8924-82-74 08:50:00 Test Item Value Reference Range Interpretation Comments Bili Total (test code = Bili Total) 0.5 0.2-1.3 N [facility] CenterCplxxvkXJTWDTWDR9143-25-37 08:50:00 Test Item Value Reference Range Interpretation Comments AST (test code = AST) 23 See_Comment N [Auto mated message] The system which ge nerated this result transmit ashanti reference range : <=37. The reference range was not used to interpr et this result as carmen l/abnormal. [facility] CenterTtxtfmmYHPNWDIBH4637-32-49 08:50:00 Test Item Value Reference Range Interpretation Comments Glucose Lvl (test code = Glucose Lvl) 79 70-99 N [facility] CenterVcuilsmUWBZHDXQH5728-55-10 08:50:00 Test Item Value Reference Range Interpretation Comments Alk Phos (test code = Alk Phos) 50 39-136 N [facility] CenterYbwzqqnKIJCZBAVR7466-64-44 08:50:00 Test Item Value Reference Range Interpretation Comments CO2 (test code = CO2) 24 24-32 N [facility] CenterZnzqhqlMWQIXCFVW6363-58-05 08:50:00 Test Item Value Reference Range Interpretation Comments BUN (test code = BUN) 10 7-22 N [facility] CenterLiykacgQELILOPGH8035-16-09 08:50:00 Test Item Value Reference Range Interpretation Comments Total Protein (test code = Total 5.6 6.4-8.4 L Protein) [facility] CenterArpkxneWFWQAZYQF9402-73-72 08:50:00 Test Item Value Reference Range Interpretation Comments ALT (test code = ALT) 30 See_Comment N [Auto mated message] The system which ge nerated this result transmit ashanti reference range : <=65. The reference range was not used to interpr et this result as carmen l/abnormal. [facility] CenterOhwyyzxKYUOJMORN7307-73-69 08:50:00 Test Item Value Reference Range Interpretation Comments Albumin Lvl (test code = Albumin Lvl) 3.3 3.5-5.0 L [facility] CenterAgbliwdHRGTVRJYJ2075-95-49 08:50:00 Test Item Value Reference Range Interpretation Comments eGFR (test code = eGFR) 115 [facility] CenterYvbgfhhQNAQMCPLV7109-60-85 08:50:00 Test Item Value Reference Range Interpretation Comments Potassium Lvl (test code = Potassium 3.7 3.5-5.1 N Lvl) [facility] CenterNumnzhaBVZNSTCRN7181-80-05 08:50:00 Test Item Value Reference Range Interpretation Comments Sodium Lvl (test code = Sodium Lvl) 144 135-145 N [facility] CenterRgzvmulFHUXHQRKC7358-94-63 08:50:00 Test Item Value Reference Range Interpretation Comments Creatinine Lvl (test code = Creatinine 0.7 0.5-1.4 N Lvl) [facility] CenterPggvnzkQXSRPZUMT4071-90-41 08:50:00 Test Item Value Reference Range Interpretation Comments Calcium Lvl (test code = Calcium Lvl) 8.3 8.5-10.5 L [facility] CenterJepsndlYYOLLCCET4661-79-21 08:50:00 Test Item Value Reference Range Interpretation Comments Chloride Lvl (test code = Chloride Lvl) 108 95-109 N [facility] CenterSjvtqmlQBPFMVDFZ6168-18-44 08:50:00 Test Item Value Reference Range Interpretation Comments B/C Ratio (test code = B/C Ratio) 14 6-25 N [facility] CenterAmaizlwTPHTZATNA1251-48-60 08:50:00 Test Item Value Reference Range Interpretation Comments Globulin (test code = Globulin) 2.3 2.0-4.0 N [facility] CenterAjfakqmIFOBLCMZY8220-43-28 08:50:00 Test Item Value Reference Range Interpretation Comments AGAP (test code = AGAP) 15.7 10.0-20.0 N [facility] CenterUpbwwecUOJGIKDAA0360-19-14 08:50:00 Test Item Value Reference Range Interpretation Comments A/G Ratio (test code = A/G Ratio) 1.4 0.7-1.6 N [facility] CenterYbjhlaxTLPHBMVFWU4505-69-46 08:50:00 Test Item Value Reference Range Interpretation Comments MCHC (test code = MCHC) 32.0 32.0-36.0 N [facility] CenterTkjpliiABRKXADBRB0890-70-72 08:50:00 Test Item Value Reference Range Interpretation Comments Platelet (test code = Platelet) 229 133-450 N [facility] CenterLdweqorFBGNFUSNSH9681-07-56 08:50:00 Test Item Value Reference Range Interpretation Comments MPV (test code = MPV) 9.5 7.4-10.4 N [facility] CenterDavzhufYSBAEBQTVP4925-62-13 08:50:00 Test Item Value Reference Range Interpretation Comments RDW (test code = RDW) 16.3 11.5-14.5 H [facility] CenterUaohencUCGIWNPJYO1346-95-48 08:50:00 Test Item Value Reference Range Interpretation Comments WBC (test code = WBC) 9.8 3.7-10.4 N [facility] CenterNhkujhxPWJKTDFCAE4341-56-17 08:50:00 Test Item Value Reference Range Interpretation Comments RBC (test code = RBC) 3.57 4.20-5.40 L [facility] CenterMkrzkhzZOYPXDDLHM3276-74-64 08:50:00 Test Item Value Reference Range Interpretation Comments MCH (test code = MCH) 26.6 pg 27.0-31.0 L [facility] CenterJiniiwhWEVTZIZJLB2426-68-93 08:50:00 Test Item Value Reference Range Interpretation Comments Hct (test code = Hct) 29.7 36.0-48.0 L [facility] CenterThgtcfbMVRSKGNMHB6911-65-06 08:50:00 Test Item Value Reference Range Interpretation Comments MCV (test code = MCV) 83.1 81.0-99.0 N [facility] CenterEulbukbOWINOSAOYL6130-19-81 08:50:00 Test Item Value Reference Range Interpretation Comments Hgb (test code = Hgb) 9.5 12.0-16.0 L [facility] CenterYgtivpvRPBSOQAHJO8159-12-23 08:50:00 Test Item Value Reference Range Interpretation Comments Anisocyte (test code = 1+ *ABN*(12/12/2012 A Anisocyte) 02:50:00) [facility] CenterNrcwvysPIGMIUDNCY7425-88-79 08:50:00 Test Item Value Reference Range Interpretation Comments Monocytes # (test code 0.6 See_Comment N [Aut omated message] The = Monocytes #) system which generated this result tra nsmitted reference range : <=0.8. The reference r megan was not used to int erpret this result as normal/abnormal . [facility] CenterQzaxsswBIGMECJPCJ9198-41-22 08:50:00 Test Item Value Reference Range Interpretation Comments Basophils # (test code 0.1 See_Comment N [Aut omated message] The = Basophils #) system which generated this result tra nsmitted reference range : <=0.2. The reference r megan was not used to int erpret this result as normal/abnormal . [facility] CenterVgwkyseTLNDJEMZWG8687-50-92 08:50:00 Test Item Value Reference Range Interpretation Comments Eosinophils # (test code 0.1 See_Comment N [A utomated message] The = Eosinophils #) system whic h generated this result tra nsmitted reference range : <=0.5. The reference r megan was not used to int erpret this result as normal/abnormal . [facility] CenterIvrlhnmDOQHACNGUQ8342-30-64 08:50:00 Test Item Value Reference Range Interpretation Comments Eosinophils (test code = 1.0 See_Comment N [A utomated message] The Eosinophils) system which ge nerated this result tra nsmitted reference range : <=4.0. The reference r megan was not used to int erpret this result as normal/abnormal . [facility] CenterWmoanvrWWWCWLPXOO0474-58-38 08:50:00 Test Item Value Reference Range Interpretation Comments Monocytes (test code = Monocytes) 6.2 2.0-12.0 N [facility] CenterMbiyzezUFDZINCHDJ5233-78-63 08:50:00 Test Item Value Reference Range Interpretation Comments Basophils (test code = 0.6 See_Comment N [Aut omated message] The Basophils) system which ge nerated this result tra nsmitted reference range : <=1.0. The reference r megan was not used to int erpret this result as normal/abnormal . [facility] CenterThlmbhsABITIBTUDW4385-45-80 08:50:00 Test Item Value Reference Range Interpretation Comments Lymphocytes # (test code = Lymphocytes 3.9 1.0-5.5 N #) [facility] CenterJckvdmpXKTEOUOOKC9077-23-14 08:50:00 Test Item Value Reference Range Interpretation Comments Segs-Bands # (test code = Segs-Bands #) 5.1 1.5-8.1 N [facility] CenterDxdgqliZWQFXLBENB6151-69-88 08:50:00 Test Item Value Reference Range Interpretation Comments Segs (test code = Segs) 52.6 45.0-75.0 N [facility] CenterHepqplqHKXVRSALUB6609-18-04 08:50:00 Test Item Value Reference Range Interpretation Comments Lymphocytes (test code = Lymphocytes) 39.6 20.0-40.0 N [facility] CenterRufjcblCNJPWRLBOB8795-45-63 08:50:00 Test Item Value Reference Range Interpretation Comments Plt Morph (test code = Normal (12/12/2012 N Plt Morph) 02:50:00) [facility] CenterHaazzkgRSUBICOZN8725-62-43 08:50:00 Test Item Value Reference Range Interpretation Comments Bili Total (test code = Bili Total) 0.5 0.2-1.3 N [facility] CenterVdiououEQZEBWYED5513-36-19 08:50:00 Test Item Value Reference Range Interpretation Comments Bili Total (test code = Bili Total) 0.5 0.2-1.3 N [facility] CenterIugaqqwHJEOEYTKH7984-81-54 08:50:00 Test Item Value Reference Range Interpretation Comments AST (test code = AST) 23 See_Comment N [Auto mated message] The system which ge nerated this result transmit ashanti reference range : <=37. The reference range was not used to interpr et this result as carmen l/abnormal. [facility] CenterZmzpcgqJYSDJUYSH7449-76-86 08:50:00 Test Item Value Reference Range Interpretation Comments Glucose Lvl (test code = Glucose Lvl) 79 70-99 N [facility] CenterSveuqnqNFJHHJSMH4737-96-93 08:50:00 Test Item Value Reference Range Interpretation Comments Alk Phos (test code = Alk Phos) 50 39-136 N [facility] CenterLoshiwnMOLKOLFAA1527-50-11 08:50:00 Test Item Value Reference Range Interpretation Comments CO2 (test code = CO2) 24 24-32 N [facility] CenterBukivejDGTLTBYGU5244-74-27 08:50:00 Test Item Value Reference Range Interpretation Comments BUN (test code = BUN) 10 7-22 N [facility] CenterRjhsqowLXKNGQHLK5373-54-14 08:50:00 Test Item Value Reference Range Interpretation Comments Total Protein (test code = Total 5.6 6.4-8.4 L Protein) [facility] CenterMwbjyydUJXBTLLFE1903-16-32 08:50:00 Test Item Value Reference Range Interpretation Comments ALT (test code = ALT) 30 See_Comment N [Auto mated message] The system which ge nerated this result transmit ashanti reference range : <=65. The reference range was not used to interpr et this result as carmen l/abnormal. [facility] CenterFnbfhfpJZXXWDRTT6789-34-51 08:50:00 Test Item Value Reference Range Interpretation Comments Albumin Lvl (test code = Albumin Lvl) 3.3 3.5-5.0 L [facility] CenterUtjetlwXPZHKNOOU5609-59-44 08:50:00 Test Item Value Reference Range Interpretation Comments eGFR (test code = eGFR) 115 [facility] CenterKfufaaoSLEUZSWNE9634-60-95 08:50:00 Test Item Value Reference Range Interpretation Comments Potassium Lvl (test code = Potassium 3.7 3.5-5.1 N Lvl) [facility] CenterSqckoqjEQUBJBKOL6794-26-25 08:50:00 Test Item Value Reference Range Interpretation Comments Sodium Lvl (test code = Sodium Lvl) 144 135-145 N [facility] CenterGsskydzBMSSVHQHV3066-71-78 08:50:00 Test Item Value Reference Range Interpretation Comments Creatinine Lvl (test code = Creatinine 0.7 0.5-1.4 N Lvl) [facility] CenterQpatilcVOZFJGYXW8551-86-43 08:50:00 Test Item Value Reference Range Interpretation Comments Calcium Lvl (test code = Calcium Lvl) 8.3 8.5-10.5 L [facility] CenterUxgtrwzYTMQDPJKY2460-92-99 08:50:00 Test Item Value Reference Range Interpretation Comments Chloride Lvl (test code = Chloride Lvl) 108 95-109 N [facility] CenterEvjwmptREEJZCWHG0235-48-70 08:50:00 Test Item Value Reference Range Interpretation Comments B/C Ratio (test code = B/C Ratio) 14 6-25 N [facility] CenterQanmphyFEHVCCFCM9751-04-35 08:50:00 Test Item Value Reference Range Interpretation Comments Globulin (test code = Globulin) 2.3 2.0-4.0 N [facility] CenterGkrttolRBIZJBCRU4052-17-97 08:50:00 Test Item Value Reference Range Interpretation Comments AGAP (test code = AGAP) 15.7 10.0-20.0 N [facility] CenterOminhrtQAOWEZSKV7696-54-69 08:50:00 Test Item Value Reference Range Interpretation Comments A/G Ratio (test code = A/G Ratio) 1.4 0.7-1.6 N [facility] CenterKfhlhhsZGVTHVBLUY5712-23-82 08:50:00 Test Item Value Reference Range Interpretation Comments MCHC (test code = MCHC) 32.0 32.0-36.0 N [facility] CenterJrijargWZMYBQKXUX5444-90-62 08:50:00 Test Item Value Reference Range Interpretation Comments Platelet (test code = Platelet) 229 133-450 N [facility] CenterIpicacfGXJCCNYETH2483-97-16 08:50:00 Test Item Value Reference Range Interpretation Comments MPV (test code = MPV) 9.5 7.4-10.4 N [facility] CenterYushxzlJGTXRBIVGE3116-56-97 08:50:00 Test Item Value Reference Range Interpretation Comments RDW (test code = RDW) 16.3 11.5-14.5 H [facility] CenterTzahfkhNPPWIMVNXB3239-14-41 08:50:00 Test Item Value Reference Range Interpretation Comments WBC (test code = WBC) 9.8 3.7-10.4 N [facility] CenterJxycjhgPZMBAUAJTG5946-46-65 08:50:00 Test Item Value Reference Range Interpretation Comments RBC (test code = RBC) 3.57 4.20-5.40 L [facility] CenterVrlwbavZVVZMHCWRR3983-10-11 08:50:00 Test Item Value Reference Range Interpretation Comments MCH (test code = MCH) 26.6 pg 27.0-31.0 L [facility] CenterKrzlekjEXZXNWQRBR6016-23-16 08:50:00 Test Item Value Reference Range Interpretation Comments Hct (test code = Hct) 29.7 36.0-48.0 L [facility] CenterApphzntPZMDFOSHFC6961-88-18 08:50:00 Test Item Value Reference Range Interpretation Comments MCV (test code = MCV) 83.1 81.0-99.0 N [facility] CenterDbdzhwoEMULQICCDU4154-35-49 08:50:00 Test Item Value Reference Range Interpretation Comments Hgb (test code = Hgb) 9.5 12.0-16.0 L [facility] CenterWkhyguiDMYEDODEOZ3415-23-74 08:50:00 Test Item Value Reference Range Interpretation Comments Anisocyte (test code = 1+ *ABN*(12/12/2012 A Anisocyte) 02:50:00) [facility] CenterJgcgtymKTVNKPGYFY5656-69-57 08:50:00 Test Item Value Reference Range Interpretation Comments Monocytes # (test code 0.6 See_Comment N [Aut omated message] The = Monocytes #) system which generated this result tra nsmitted reference range : <=0.8. The reference r megan was not used to int erpret this result as normal/abnormal . [facility] CenterTdkfxfyVTBHGAGNAF5388-86-90 08:50:00 Test Item Value Reference Range Interpretation Comments Basophils # (test code 0.1 See_Comment N [Aut omated message] The = Basophils #) system which generated this result tra nsmitted reference range : <=0.2. The reference r megan was not used to int erpret this result as normal/abnormal . [facility] CenterFntgyomSHJEPWZFP7477-51-40 08:50:00 Test Item Value Reference Range Interpretation Comments AST (test code = AST) 23 See_Comment N [Auto mated message] The system which ge nerated this result transmit ashanti reference range : <=37. The reference range was not used to interpr et this result as carmen l/abnormal. [facility] CenterCjnveakXVGXZTZRNM2061-06-17 08:50:00 Test Item Value Reference Range Interpretation Comments Eosinophils # (test code 0.1 See_Comment N [A utomated message] The = Eosinophils #) system whic h generated this result tra nsmitted reference range : <=0.5. The reference r megan was not used to int erpret this result as normal/abnormal . [facility] CenterCjbuewbMGSFPRKZQB0548-19-48 08:50:00 Test Item Value Reference Range Interpretation Comments Eosinophils (test code = 1.0 See_Comment N [A utomated message] The Eosinophils) system which ge nerated this result tra nsmitted reference range : <=4.0. The reference r megan was not used to int erpret this result as normal/abnormal . [facility] CenterKhicalvUHCOBPMUSC1718-21-44 08:50:00 Test Item Value Reference Range Interpretation Comments Monocytes (test code = Monocytes) 6.2 2.0-12.0 N [facility] CenterShranqmZPJLUTBGYF7570-89-79 08:50:00 Test Item Value Reference Range Interpretation Comments Basophils (test code = 0.6 See_Comment N [Aut omated message] The Basophils) system which ge nerated this result tra nsmitted reference range : <=1.0. The reference r megan was not used to int erpret this result as normal/abnormal . [facility] CenterEaougoiWFGZZVELWB4779-52-50 08:50:00 Test Item Value Reference Range Interpretation Comments Lymphocytes # (test code = Lymphocytes 3.9 1.0-5.5 N #) [facility] CenterCskydibRWVZPAWPVZ5685-06-65 08:50:00 Test Item Value Reference Range Interpretation Comments Segs-Bands # (test code = Segs-Bands #) 5.1 1.5-8.1 N [facility] CenterTbqbswbIGOOHNMNEJ3515-03-98 08:50:00 Test Item Value Reference Range Interpretation Comments Segs (test code = Segs) 52.6 45.0-75.0 N [facility] CenterSvyejvrSUHTRGIJFQ6406-43-62 08:50:00 Test Item Value Reference Range Interpretation Comments Lymphocytes (test code = Lymphocytes) 39.6 20.0-40.0 N [facility] CenterCeqmnhoQVWIWASUXI9848-23-17 08:50:00 Test Item Value Reference Range Interpretation Comments Plt Morph (test code = Normal (12/12/2012 N Plt Morph) 02:50:00) [facility] CenterSxlauvxJEULOPAOC8632-57-66 08:50:00 Test Item Value Reference Range Interpretation Comments Glucose Lvl (test code = Glucose Lvl) 79 70-99 N [facility] CenterAflyenoDERCOTGTN9237-89-14 08:50:00 Test Item Value Reference Range Interpretation Comments Bili Total (test code = Bili Total) 0.5 0.2-1.3 N [facility] CenterXrhuqwlGJMCGGAVP4045-61-93 08:50:00 Test Item Value Reference Range Interpretation Comments AST (test code = AST) 23 See_Comment N [Auto mated message] The system which ge nerated this result transmit ashanti reference range : <=37. The reference range was not used to interpr et this result as carmen l/abnormal. [facility]GhngxqxKVPNZPRJU0554-49-99 08:50:00 Test Item Value Reference Range Interpretation Comments Glucose Lvl (test code = Glucose Lvl) 79 70-99 N [facility] CenterAzcdaawUMLDUBUGR4058-65-38 08:50:00 Test Item Value Reference Range Interpretation Comments Alk Phos (test code = Alk Phos) 50 39-136 N [facility] ItfctfmHWQCRIIKP3850-43-09 08:50:00 Test Item Value Reference Range Interpretation Comments CO2 (test code = CO2) 24 24-32 N [facility] DznjhegGYMZDHWFM0416-58-52 08:50:00 Test Item Value Reference Range Interpretation Comments BUN (test code = BUN) 10 7-22 N [facility]OmvohauWGWGNXMBG8655-98-33 08:50:00 Test Item Value Reference Range Interpretation Comments Total Protein (test code = Total 5.6 6.4-8.4 L Protein) [facility]HfirnygCCLXFFKAP3522-82-94 08:50:00 Test Item Value Reference Range Interpretation Comments ALT (test code = ALT) 30 See_Comment N [Auto mated message] The system which ge nerated this result transmit ashanti reference range : <=65. The reference range was not used to interpr et this result as carmen l/abnormal. [facility] MolhybmFOCIWVLDQ7599-51-99 08:50:00 Test Item Value Reference Range Interpretation Comments Albumin Lvl (test code = Albumin Lvl) 3.3 3.5-5.0 L [facility] PjvazmrYHYBQBKHM4804-20-22 08:50:00 Test Item Value Reference Range Interpretation Comments eGFR (test code = eGFR) 115 [facility]RmwrcvzIVMQZOZQO0222-07-51 08:50:00 Test Item Value Reference Range Interpretation Comments Potassium Lvl (test code = Potassium 3.7 3.5-5.1 N Lvl) [facility]JycvblhZOITSWICP6602-67-64 08:50:00 Test Item Value Reference Range Interpretation Comments Sodium Lvl (test code = Sodium Lvl) 144 135-145 N [facility] CenterCnlwaxsVIHLTVBWN7526-00-88 08:50:00 Test Item Value Reference Range Interpretation Comments Creatinine Lvl (test code = Creatinine 0.7 0.5-1.4 N Lvl) [facility] CenterTbtuccyRVCKLEOKE3986-40-12 08:50:00 Test Item Value Reference Range Interpretation Comments Calcium Lvl (test code = Calcium Lvl) 8.3 8.5-10.5 L [facility] CenterXehgibkSMNAPQAEB7025-65-08 08:50:00 Test Item Value Reference Range Interpretation Comments Chloride Lvl (test code = Chloride Lvl) 108 95-109 N [facility] CenterGtbffriAANDIEKXH0032-40-37 08:50:00 Test Item Value Reference Range Interpretation Comments B/C Ratio (test code = B/C Ratio) 14 6-25 N [facility] CenterUsifddkZJHHGQDUY7205-60-77 08:50:00 Test Item Value Reference Range Interpretation Comments Globulin (test code = Globulin) 2.3 2.0-4.0 N [facility] CenterJozqussFDHYWMJXQ3272-48-00 08:50:00 Test Item Value Reference Range Interpretation Comments AGAP (test code = AGAP) 15.7 10.0-20.0 N [facility] CenterKehpmlaSBCTITLXA8069-18-75 08:50:00 Test Item Value Reference Range Interpretation Comments A/G Ratio (test code = A/G Ratio) 1.4 0.7-1.6 N [facility]ZlzpwhiSAQXDXFUWW0956-15-69 08:50:00 Test Item Value Reference Range Interpretation Comments MCHC (test code = MCHC) 32.0 32.0-36.0 N [facility] CenterGnftwlzFHILHHPROI7608-67-79 08:50:00 Test Item Value Reference Range Interpretation Comments Platelet (test code = Platelet) 229 133-450 N [facility] CenterMnedlftICKHDWVGOR2894-14-72 08:50:00 Test Item Value Reference Range Interpretation Comments MPV (test code = MPV) 9.5 7.4-10.4 N [facility] CenterPwpivlsJNDRHZBYUB4810-09-79 08:50:00 Test Item Value Reference Range Interpretation Comments RDW (test code = RDW) 16.3 11.5-14.5 H [facility] CenterIabkimrEGVFOAASPF1135-79-07 08:50:00 Test Item Value Reference Range Interpretation Comments WBC (test code = WBC) 9.8 3.7-10.4 N [facility] CenterQzsaejuZWQGHKVSUS7366-87-22 08:50:00 Test Item Value Reference Range Interpretation Comments RBC (test code = RBC) 3.57 4.20-5.40 L [facility] CenterMickxtsTPTHYUXIHF4776-56-70 08:50:00 Test Item Value Reference Range Interpretation Comments MCH (test code = MCH) 26.6 pg 27.0-31.0 L [facility] CenterLfuiskfRTAAREQNKF6107-92-40 08:50:00 Test Item Value Reference Range Interpretation Comments Hct (test code = Hct) 29.7 36.0-48.0 L [facility] CenterBuqedxpVTWYZYBIXU4012-44-51 08:50:00 Test Item Value Reference Range Interpretation Comments MCV (test code = MCV) 83.1 81.0-99.0 N [facility] CenterNyaolcvBSLXJIRZVQ3420-35-27 08:50:00 Test Item Value Reference Range Interpretation Comments Hgb (test code = Hgb) 9.5 12.0-16.0 L [facility] CenterBourddgDPJQPCRTUL3437-38-63 08:50:00 Test Item Value Reference Range Interpretation Comments Anisocyte (test code = 1+ *ABN*(12/12/2012 A Anisocyte) 02:50:00) [facility] CenterVkcmoshIGNTTHISCY1205-86-26 08:50:00 Test Item Value Reference Range Interpretation Comments Monocytes # (test code 0.6 See_Comment N [Aut omated message] The = Monocytes #) system which generated this result tra nsmitted reference range : <=0.8. The reference r megan was not used to int erpret this result as normal/abnormal . [facility] CenterQrsioakWLNUDXQJNZ0409-92-95 08:50:00 Test Item Value Reference Range Interpretation Comments Basophils # (test code 0.1 See_Comment N [Aut omated message] The = Basophils #) system which generated this result tra nsmitted reference range : <=0.2. The reference r megan was not used to int erpret this result as normal/abnormal . [facility] CenterMiyinopYHHIDAIYLW5515-76-34 08:50:00 Test Item Value Reference Range Interpretation Comments Eosinophils # (test code 0.1 See_Comment N [A utomated message] The = Eosinophils #) system whic h generated this result tra nsmitted reference range : <=0.5. The reference r megan was not used to int erpret this result as normal/abnormal . [facility] CenterZgfnijxNEHPKDRSCO9067-19-86 08:50:00 Test Item Value Reference Range Interpretation Comments Eosinophils (test code = 1.0 See_Comment N [A utomated message] The Eosinophils) system which ge nerated this result tra nsmitted reference range : <=4.0. The reference r megan was not used to int erpret this result as normal/abnormal . [facility] CenterXbnxmirDSTFLHVAIS0783-85-65 08:50:00 Test Item Value Reference Range Interpretation Comments Monocytes (test code = Monocytes) 6.2 2.0-12.0 N [facility] CenterQbmxxsfMXQXPNZXVM5016-13-24 08:50:00 Test Item Value Reference Range Interpretation Comments Basophils (test code = 0.6 See_Comment N [Aut omated message] The Basophils) system which ge nerated this result tra nsmitted reference range : <=1.0. The reference r megan was not used to int erpret this result as normal/abnormal . [facility] CenterDdvoqhqLKKDOUNHBB5066-59-89 08:50:00 Test Item Value Reference Range Interpretation Comments Lymphocytes # (test code = Lymphocytes 3.9 1.0-5.5 N #) [facility] CenterGfjbywwIJLXJMLXFH9636-96-89 08:50:00 Test Item Value Reference Range Interpretation Comments Segs-Bands # (test code = Segs-Bands #) 5.1 1.5-8.1 N [facility] CenterZmdrrqtOBKVLVGODE0591-97-04 08:50:00 Test Item Value Reference Range Interpretation Comments Segs (test code = Segs) 52.6 45.0-75.0 N [facility] CenterOcwpuicEPHQJTNKSH2062-71-33 08:50:00 Test Item Value Reference Range Interpretation Comments Lymphocytes (test code = Lymphocytes) 39.6 20.0-40.0 N [facility] CenterCpcyaaiDLISMOPJKA8369-07-67 08:50:00 Test Item Value Reference Range Interpretation Comments Plt Morph (test code = Normal (12/12/2012 N Plt Morph) 02:50:00) [facility] CenterKllwgsxRMDKDHDGO5133-41-61 08:50:00 Test Item Value Reference Range Interpretation Comments Alk Phos (test code = Alk Phos) 50 39-136 N [facility] CenterPlzhtfzALSHMHGNN7736-12-21 08:50:00 Test Item Value Reference Range Interpretation Comments CO2 (test code = CO2) 24 24-32 N [facility] CenterLfcpkxlGVQAMGSHS7961-17-74 08:50:00 Test Item Value Reference Range Interpretation Comments Bili Total (test code = Bili Total) 0.5 0.2-1.3 N [facility] CenterNqrhhloZZBSXEUUC9091-65-63 08:50:00 Test Item Value Reference Range Interpretation Comments AST (test code = AST) 23 See_Comment N [Auto mated message] The system which ge nerated this result transmit ashanti reference range : <=37. The reference range was not used to interpr et this result as carmen l/abnormal. [facility] CenterEpyzmuuQNXYHZQUN1832-72-13 08:50:00 Test Item Value Reference Range Interpretation Comments Bili Total (test code = Bili Total) 0.5 0.2-1.3 N [facility] CenterFkjhrjsJSFBOZIYX7078-33-31 08:50:00 Test Item Value Reference Range Interpretation Comments AST (test code = AST) 23 See_Comment N [Auto mated message] The system which ge nerated this result transmit ashanti reference range : <=37. The reference range was not used to interpr et this result as carmen l/abnormal. [facility] CenterPjotxxfUAUCIRZMU6035-65-14 08:50:00 Test Item Value Reference Range Interpretation Comments Glucose Lvl (test code = Glucose Lvl) 79 70-99 N [facility] CenterQdqpgtjUODJJPGUO9081-56-77 08:50:00 Test Item Value Reference Range Interpretation Comments Alk Phos (test code = Alk Phos) 50 39-136 N [facility] CenterClixioqAVMNBRRGF7121-53-77 08:50:00 Test Item Value Reference Range Interpretation Comments CO2 (test code = CO2) 24 24-32 N [facility] CenterSgylxpsSCNUZVTUJ3058-71-71 08:50:00 Test Item Value Reference Range Interpretation Comments BUN (test code = BUN) 10 7-22 N [facility] CenterAhpixycEGQSOFHGO2514-97-98 08:50:00 Test Item Value Reference Range Interpretation Comments Total Protein (test code = Total 5.6 6.4-8.4 L Protein) [facility] CenterEybmtytIWPJBTDBN0185-66-83 08:50:00 Test Item Value Reference Range Interpretation Comments ALT (test code = ALT) 30 See_Comment N [Auto mated message] The system which ge nerated this result transmit ashanti reference range : <=65. The reference range was not used to interpr et this result as carmen l/abnormal. [facility] CenterNfcznmeUXVGNEANT2944-05-77 08:50:00 Test Item Value Reference Range Interpretation Comments Glucose Lvl (test code = Glucose Lvl) 79 70-99 N [facility] CenterDxuidktHTXLHFSUU3502-52-74 08:50:00 Test Item Value Reference Range Interpretation Comments Albumin Lvl (test code = Albumin Lvl) 3.3 3.5-5.0 L [facility] CenterPzjffthSHVFXMFOW5871-81-27 08:50:00 Test Item Value Reference Range Interpretation Comments eGFR (test code = eGFR) 115 [facility] CenterKbsvwzdEFTUXPCRZ6576-73-49 08:50:00 Test Item Value Reference Range Interpretation Comments Potassium Lvl (test code = Potassium 3.7 3.5-5.1 N Lvl) [facility] CenterUjlcpudLOWSAVEJM9889-03-36 08:50:00 Test Item Value Reference Range Interpretation Comments Sodium Lvl (test code = Sodium Lvl) 144 135-145 N [facility] CenterWohdcloFVHJWYHTU7428-01-90 08:50:00 Test Item Value Reference Range Interpretation Comments Creatinine Lvl (test code = Creatinine 0.7 0.5-1.4 N Lvl) [facility] CenterAcekxudHZHIDKOSJ7601-80-14 08:50:00 Test Item Value Reference Range Interpretation Comments Calcium Lvl (test code = Calcium Lvl) 8.3 8.5-10.5 L [facility] CenterRnbefveULVMSBFEU5508-66-91 08:50:00 Test Item Value Reference Range Interpretation Comments Chloride Lvl (test code = Chloride Lvl) 108 95-109 N [facility] CenterAuzrpaoKMUMMVCAW6532-28-04 08:50:00 Test Item Value Reference Range Interpretation Comments B/C Ratio (test code = B/C Ratio) 14 6-25 N [facility] CenterSnpmjmzEAYTVUJEF9024-32-67 08:50:00 Test Item Value Reference Range Interpretation Comments Globulin (test code = Globulin) 2.3 2.0-4.0 N [facility] CenterMwairyoRSCJLXTRN0980-21-16 08:50:00 Test Item Value Reference Range Interpretation Comments AGAP (test code = AGAP) 15.7 10.0-20.0 N [facility] CenterEaewasgCUAEVYHES7846-68-46 08:50:00 Test Item Value Reference Range Interpretation Comments Alk Phos (test code = Alk Phos) 50 39-136 N [facility] CenterBuwcfezDHKIXQCQR3549-73-61 08:50:00 Test Item Value Reference Range Interpretation Comments A/G Ratio (test code = A/G Ratio) 1.4 0.7-1.6 N [facility] CenterDgufgamVNGRIBPDPZ0351-37-55 08:50:00 Test Item Value Reference Range Interpretation Comments MCHC (test code = MCHC) 32.0 32.0-36.0 N [facility] CenterRzewdblBLAOVOEORV1299-65-05 08:50:00 Test Item Value Reference Range Interpretation Comments Platelet (test code = Platelet) 229 133-450 N [facility] CenterVvqbwbrEDWJHJWXOY9925-89-20 08:50:00 Test Item Value Reference Range Interpretation Comments MPV (test code = MPV) 9.5 7.4-10.4 N [facility] CenterUuyohnwVVSMTSUHCE2638-02-04 08:50:00 Test Item Value Reference Range Interpretation Comments RDW (test code = RDW) 16.3 11.5-14.5 H [facility] CenterSnxdeudZWXZFFSHOH3819-68-39 08:50:00 Test Item Value Reference Range Interpretation Comments WBC (test code = WBC) 9.8 3.7-10.4 N [facility] CenterLqpxzpoLUYOIDAQPB9606-32-28 08:50:00 Test Item Value Reference Range Interpretation Comments RBC (test code = RBC) 3.57 4.20-5.40 L [facility] CenterWkwxxcwMWGPDGOYRX8117-21-40 08:50:00 Test Item Value Reference Range Interpretation Comments MCH (test code = MCH) 26.6 pg 27.0-31.0 L [facility] CenterWghpsabILDIVZKRRZ9284-41-79 08:50:00 Test Item Value Reference Range Interpretation Comments Hct (test code = Hct) 29.7 36.0-48.0 L [facility] CenterDsgadmaPWAGPPQTYL2232-87-74 08:50:00 Test Item Value Reference Range Interpretation Comments MCV (test code = MCV) 83.1 81.0-99.0 N [facility] CenterEimhgacHASDKXYJQ1241-69-59 08:50:00 Test Item Value Reference Range Interpretation Comments CO2 (test code = CO2) 24 24-32 N [facility] CenterTcwihgyTJIPGDXWEZ0067-02-71 08:50:00 Test Item Value Reference Range Interpretation Comments Hgb (test code = Hgb) 9.5 12.0-16.0 L [facility] CenterIhedgkqDUVQXKLZGK7116-55-79 08:50:00 Test Item Value Reference Range Interpretation Comments Anisocyte (test code = 1+ *ABN*(12/12/2012 A Anisocyte) 02:50:00) [facility] CenterYjiboorUXPSTETUFT7526-75-78 08:50:00 Test Item Value Reference Range Interpretation Comments Monocytes # (test code 0.6 See_Comment N [Aut omated message] The = Monocytes #) system which generated this result tra nsmitted reference range : <=0.8. The reference r megan was not used to int erpret this result as normal/abnormal . [facility] CenterDiracvuCVXFWTDEMO3983-28-50 08:50:00 Test Item Value Reference Range Interpretation Comments Basophils # (test code 0.1 See_Comment N [Aut omated message] The = Basophils #) system which generated this result tra nsmitted reference range : <=0.2. The reference r megan was not used to int erpret this result as normal/abnormal . [facility] CenterPlzjpumESFCBMLJEJ7669-92-60 08:50:00 Test Item Value Reference Range Interpretation Comments Eosinophils # (test code 0.1 See_Comment N [A utomated message] The = Eosinophils #) system whic h generated this result tra nsmitted reference range : <=0.5. The reference r megan was not used to int erpret this result as normal/abnormal . [facility] CenterNytccvhKBNZCSSHRU3074-85-93 08:50:00 Test Item Value Reference Range Interpretation Comments Eosinophils (test code = 1.0 See_Comment N [A utomated message] The Eosinophils) system which ge nerated this result tra nsmitted reference range : <=4.0. The reference r megan was not used to int erpret this result as normal/abnormal . [facility] CenterUicrllcIYCZXRQEDM4853-72-02 08:50:00 Test Item Value Reference Range Interpretation Comments Monocytes (test code = Monocytes) 6.2 2.0-12.0 N [facility] CenterJhoyavzCNEDBUATZW9765-83-86 08:50:00 Test Item Value Reference Range Interpretation Comments Basophils (test code = 0.6 See_Comment N [Aut omated message] The Basophils) system which ge nerated this result tra nsmitted reference range : <=1.0. The reference r megan was not used to int erpret this result as normal/abnormal . [facility] CenterQuoezebLDTBATFCWB8627-82-60 08:50:00 Test Item Value Reference Range Interpretation Comments Lymphocytes # (test code = Lymphocytes 3.9 1.0-5.5 N #) [facility] CenterAnlawspVYOYNQDQXF4460-90-79 08:50:00 Test Item Value Reference Range Interpretation Comments Segs-Bands # (test code = Segs-Bands #) 5.1 1.5-8.1 N [facility] CenterDusvpjsLTCANGXVI6670-71-98 08:50:00 Test Item Value Reference Range Interpretation Comments BUN (test code = BUN) 10 7-22 N [facility] CenterEofpjyeQPZVCSPTOR8697-73-71 08:50:00 Test Item Value Reference Range Interpretation Comments Segs (test code = Segs) 52.6 45.0-75.0 N [facility] CenterXpgabmuVDVQRPVLDD1729-92-98 08:50:00 Test Item Value Reference Range Interpretation Comments Lymphocytes (test code = Lymphocytes) 39.6 20.0-40.0 N [facility] CenterTdyewcoCWOGKMKRXO3166-98-43 08:50:00 Test Item Value Reference Range Interpretation Comments Plt Morph (test code = Normal (12/12/2012 N Plt Morph) 02:50:00) [facility] CenterIaqnfijOUKUKBKUV3963-18-51 08:50:00 Test Item Value Reference Range Interpretation Comments Total Protein (test code = Total 5.6 6.4-8.4 L Protein) [facility] CenterChyjbszJNLGLTTFZ3445-60-11 08:50:00 Test Item Value Reference Range Interpretation Comments ALT (test code = ALT) 30 See_Comment N [Auto mated message] The system which ge nerated this result transmit ashanti reference range : <=65. The reference range was not used to interpr et this result as carmen l/abnormal. [facility] CenterLcwbkkxYEGNFGUXC1768-05-01 08:50:00 Test Item Value Reference Range Interpretation Comments Albumin Lvl (test code = Albumin Lvl) 3.3 3.5-5.0 L [facility] CenterGgsasddZOSFTKENV7615-51-93 08:50:00 Test Item Value Reference Range Interpretation Comments eGFR (test code = eGFR) 115 [facility] CenterWxxtksuETQIDYEEU9382-69-98 08:50:00 Test Item Value Reference Range Interpretation Comments BUN (test code = BUN) 10 7-22 N [facility] CenterVxasfwtMNADSDPOX7360-24-28 08:50:00 Test Item Value Reference Range Interpretation Comments Potassium Lvl (test code = Potassium 3.7 3.5-5.1 N Lvl) [facility] CenterOntgageLMVFTADCH2148-04-08 08:50:00 Test Item Value Reference Range Interpretation Comments Sodium Lvl (test code = Sodium Lvl) 144 135-145 N [facility] CenterOudxbzaCXSRSQHSF5262-75-78 08:50:00 Test Item Value Reference Range Interpretation Comments Creatinine Lvl (test code = Creatinine 0.7 0.5-1.4 N Lvl) [facility] CenterRejzeveXPNYLRQON5774-94-06 08:50:00 Test Item Value Reference Range Interpretation Comments Calcium Lvl (test code = Calcium Lvl) 8.3 8.5-10.5 L [facility] CenterJgszwyoVIVZBUYKE6622-87-31 08:50:00 Test Item Value Reference Range Interpretation Comments Chloride Lvl (test code = Chloride Lvl) 108 95-109 N [facility] CenterEutmzekTBASIPNPW2893-95-39 08:50:00 Test Item Value Reference Range Interpretation Comments B/C Ratio (test code = B/C Ratio) 14 6-25 N [facility] CenterBknnfgcFHQJSYHQB7954-83-64 08:50:00 Test Item Value Reference Range Interpretation Comments Globulin (test code = Globulin) 2.3 2.0-4.0 N [facility] CenterKxhubopSDMMGMIWS6107-68-60 08:50:00 Test Item Value Reference Range Interpretation Comments AGAP (test code = AGAP) 15.7 10.0-20.0 N [facility] CenterQysruyxVTIFVVUHI7719-05-75 08:50:00 Test Item Value Reference Range Interpretation Comments A/G Ratio (test code = A/G Ratio) 1.4 0.7-1.6 N [facility] CenterOfyxcctCOHNPUCTD7394-39-24 08:50:00 Test Item Value Reference Range Interpretation Comments Bili Total (test code = Bili Total) 0.5 0.2-1.3 N [facility] CenterOvhidzqWSGMTYBJI7646-13-16 08:50:00 Test Item Value Reference Range Interpretation Comments AST (test code = AST) 23 See_Comment N [Auto mated message] The system which ge nerated this result transmit ashanti reference range : <=37. The reference range was not used to interpr et this result as carmen l/abnormal. [facility] CenterYvcygcpSYXXWHJYY6866-00-69 08:50:00 Test Item Value Reference Range Interpretation Comments Glucose Lvl (test code = Glucose Lvl) 79 70-99 N [facility] CenterOzwbfobBJPQJUNHE8925-19-91 08:50:00 Test Item Value Reference Range Interpretation Comments Alk Phos (test code = Alk Phos) 50 39-136 N [facility] CenterYisezraTRZHZXPFX4704-53-32 08:50:00 Test Item Value Reference Range Interpretation Comments CO2 (test code = CO2) 24 24-32 N [facility] CenterRarrkjjBLCFHGOJD9369-61-33 08:50:00 Test Item Value Reference Range Interpretation Comments BUN (test code = BUN) 10 7-22 N [facility] CenterTbiaaizLBLISMZLAT1576-63-70 08:50:00 Test Item Value Reference Range Interpretation Comments MCHC (test code = MCHC) 32.0 32.0-36.0 N [facility] CenterUpujaqhWTOIFDHWV8550-15-38 08:50:00 Test Item Value Reference Range Interpretation Comments Total Protein (test code = Total 5.6 6.4-8.4 L Protein) [facility] CenterJpmoregTSTDUIDKV2799-30-83 08:50:00 Test Item Value Reference Range Interpretation Comments ALT (test code = ALT) 30 See_Comment N [Auto mated message] The system which ge nerated this result transmit ashanti reference range : <=65. The reference range was not used to interpr et this result as carmen l/abnormal. [facility] CenterWltbsujSUUHXAOTG3984-67-52 08:50:00 Test Item Value Reference Range Interpretation Comments Albumin Lvl (test code = Albumin Lvl) 3.3 3.5-5.0 L [facility] CenterIcbpenhQSOECFNUR8908-93-90 08:50:00 Test Item Value Reference Range Interpretation Comments eGFR (test code = eGFR) 115 [facility] CenterWjgsdrzRPWAJJLUK1422-70-03 08:50:00 Test Item Value Reference Range Interpretation Comments Potassium Lvl (test code = Potassium 3.7 3.5-5.1 N Lvl) [facility] CenterUfxhxfcGLQPWGBXS0388-93-48 08:50:00 Test Item Value Reference Range Interpretation Comments Sodium Lvl (test code = Sodium Lvl) 144 135-145 N [facility] CenterNcijbleGAUWPLNZT2967-77-48 08:50:00 Test Item Value Reference Range Interpretation Comments Creatinine Lvl (test code = Creatinine 0.7 0.5-1.4 N Lvl) [facility] CenterJnxabhaKLWYATFQB5873-11-66 08:50:00 Test Item Value Reference Range Interpretation Comments Calcium Lvl (test code = Calcium Lvl) 8.3 8.5-10.5 L [facility] CenterGjwekpsWUYEBRPIR7355-19-97 08:50:00 Test Item Value Reference Range Interpretation Comments Chloride Lvl (test code = Chloride Lvl) 108 95-109 N [facility] CenterNdxhkixRSWGFUIEJ7040-74-13 08:50:00 Test Item Value Reference Range Interpretation Comments B/C Ratio (test code = B/C Ratio) 14 6-25 N [facility] CenterFbcezkbKWDQGBCBI1282-53-99 08:50:00 Test Item Value Reference Range Interpretation Comments Total Protein (test code = Total 5.6 6.4-8.4 L Protein) [facility] CenterTysizlrEJPXONZYXN5952-49-82 08:50:00 Test Item Value Reference Range Interpretation Comments Platelet (test code = Platelet) 229 133-450 N [facility] CenterQguwvofCRTOQFLZJ2442-22-65 08:50:00 Test Item Value Reference Range Interpretation Comments Globulin (test code = Globulin) 2.3 2.0-4.0 N [facility] CenterTlsdvovMYJWBHNQN6868-81-92 08:50:00 Test Item Value Reference Range Interpretation Comments AGAP (test code = AGAP) 15.7 10.0-20.0 N [facility] CenterBqkajzlXZZLXJSOV4226-39-74 08:50:00 Test Item Value Reference Range Interpretation Comments A/G Ratio (test code = A/G Ratio) 1.4 0.7-1.6 N [facility] CenterVyqynnxIBYBPMGWET3781-10-18 08:50:00 Test Item Value Reference Range Interpretation Comments MCHC (test code = MCHC) 32.0 32.0-36.0 N [facility] CenterCusmpzuWWZOGDZYQC1296-51-68 08:50:00 Test Item Value Reference Range Interpretation Comments Platelet (test code = Platelet) 229 133-450 N [facility] CenterSkxctorRGSTCFWMDP4247-84-06 08:50:00 Test Item Value Reference Range Interpretation Comments MPV (test code = MPV) 9.5 7.4-10.4 N [facility] CenterAnkgfiuWJCZPWHTRY2227-24-95 08:50:00 Test Item Value Reference Range Interpretation Comments RDW (test code = RDW) 16.3 11.5-14.5 H [facility] CenterIghfuamCINUKPFBLL5852-80-94 08:50:00 Test Item Value Reference Range Interpretation Comments WBC (test code = WBC) 9.8 3.7-10.4 N [facility] CenterWkizxpeZGXVXJKZML9129-41-09 08:50:00 Test Item Value Reference Range Interpretation Comments RBC (test code = RBC) 3.57 4.20-5.40 L [facility] CenterHvzgcwcVQDMKDMDSS3573-61-92 08:50:00 Test Item Value Reference Range Interpretation Comments MCH (test code = MCH) 26.6 pg 27.0-31.0 [facility]MvpnnndTUFEGCOJVF2696-63-20 08:50:00 Test Item Value Reference Range Interpretation Comments MPV (test code = MPV) 9.5 7.4-10.4 N [facility] CenterRhewlzuBXPFBXKDWH8328-52-06 08:50:00 Test Item Value Reference Range Interpretation Comments Hct (test code = Hct) 29.7 36.0-48.0 L [facility] CenterCllrkloWDPYYWKTOB5537-74-01 08:50:00 Test Item Value Reference Range Interpretation Comments MCV (test code = MCV) 83.1 81.0-99.0 N [facility] CenterYjjqpwjPSMIXYUOAQ6242-07-34 08:50:00 Test Item Value Reference Range Interpretation Comments Hgb (test code = Hgb) 9.5 12.0-16.0 L [facility] CenterRysymjkROJEDWUATV2211-15-83 08:50:00 Test Item Value Reference Range Interpretation Comments Anisocyte (test code = 1+ *ABN*(12/12/2012 A Anisocyte) 02:50:00) [facility] CenterOrsqqkrYYPTPFNGIZ1565-79-49 08:50:00 Test Item Value Reference Range Interpretation Comments Monocytes # (test code 0.6 See_Comment N [Aut omated message] The = Monocytes #) system which generated this result tra nsmitted reference range : <=0.8. The reference r megan was not used to int erpret this result as normal/abnormal . [facility] CenterHzrbyjyPAPSQBSBIG4119-57-30 08:50:00 Test Item Value Reference Range Interpretation Comments Basophils # (test code 0.1 See_Comment N [Aut omated message] The = Basophils #) system which generated this result tra nsmitted reference range : <=0.2. The reference r megan was not used to int erpret this result as normal/abnormal . [facility] CenterGoakctdNAIFXGPKEX8536-90-99 08:50:00 Test Item Value Reference Range Interpretation Comments Eosinophils # (test code 0.1 See_Comment N [A utomated message] The = Eosinophils #) system whic h generated this result tra nsmitted reference range : <=0.5. The reference r megan was not used to int erpret this result as normal/abnormal . [facility] CenterRngalkbOIAZLRZJPE5211-21-83 08:50:00 Test Item Value Reference Range Interpretation Comments Eosinophils (test code = 1.0 See_Comment N [A utomated message] The Eosinophils) system which ge nerated this result tra nsmitted reference range : <=4.0. The reference r megan was not used to int erpret this result as normal/abnormal . [facility] CenterKcekqiuAMKDSQWAZT6475-15-33 08:50:00 Test Item Value Reference Range Interpretation Comments Monocytes (test code = Monocytes) 6.2 2.0-12.0 N [facility] CenterHitxpzwPRHMUCVYLQ0188-65-09 08:50:00 Test Item Value Reference Range Interpretation Comments Basophils (test code = 0.6 See_Comment N [Aut omated message] The Basophils) system which ge nerated this result tra nsmitted reference range : <=1.0. The reference r megan was not used to int erpret this result as normal/abnormal . [facility] CenterNohjkirHOXKHQHISC4786-14-35 08:50:00 Test Item Value Reference Range Interpretation Comments RDW (test code = RDW) 16.3 11.5-14.5 H [facility] CenterNhdokxqFFGABUWJOF3233-55-46 08:50:00 Test Item Value Reference Range Interpretation Comments Lymphocytes # (test code = Lymphocytes 3.9 1.0-5.5 N #) [facility] CenterVwmbqguKSETEAXOUZ5758-98-36 08:50:00 Test Item Value Reference Range Interpretation Comments Segs-Bands # (test code = Segs-Bands #) 5.1 1.5-8.1 N [facility] CenterIfcvlqjBUGKCUFAEN3112-97-46 08:50:00 Test Item Value Reference Range Interpretation Comments Segs (test code = Segs) 52.6 45.0-75.0 N [facility] CenterMujnswwHGXORCJDXD1006-82-79 08:50:00 Test Item Value Reference Range Interpretation Comments Lymphocytes (test code = Lymphocytes) 39.6 20.0-40.0 N [facility] CenterFksdrkbLKPDMNZLFN4049-06-03 08:50:00 Test Item Value Reference Range Interpretation Comments Plt Morph (test code = Normal (12/12/2012 N Plt Morph) 02:50:00) [facility] CenterGspwgfpUKCYXQIOYD6465-05-99 08:50:00 Test Item Value Reference Range Interpretation Comments WBC (test code = WBC) 9.8 3.7-10.4 N [facility] CenterBeuoqutQFZKNDXZQE9986-57-08 08:50:00 Test Item Value Reference Range Interpretation Comments RBC (test code = RBC) 3.57 4.20-5.40 L [facility] CenterNzqaorbUFSRSFOWNQ0768-52-13 08:50:00 Test Item Value Reference Range Interpretation Comments MCH (test code = MCH) 26.6 pg 27.0-31.0 L [facility] CenterJzgwhmnGUDVBHCIWL7234-96-31 08:50:00 Test Item Value Reference Range Interpretation Comments Hct (test code = Hct) 29.7 36.0-48.0 L [facility] CenterLjohcfnQGYQSKXVHZ2975-52-80 08:50:00 Test Item Value Reference Range Interpretation Comments MCV (test code = MCV) 83.1 81.0-99.0 N [facility] CenterDwopxnwTZXSMCZKGG3206-33-94 08:50:00 Test Item Value Reference Range Interpretation Comments Hgb (test code = Hgb) 9.5 12.0-16.0 L [facility] CenterWujsyegISQCOSHIWE0576-66-29 08:50:00 Test Item Value Reference Range Interpretation Comments Anisocyte (test code = 1+ *ABN*(12/12/2012 A Anisocyte) 02:50:00) [facility] CenterZgnrqzaDKAKSCPEK5222-19-86 08:50:00 Test Item Value Reference Range Interpretation Comments ALT (test code = ALT) 30 See_Comment N [Auto mated message] The system which ge nerated this result transmit ashanti reference range : <=65. The reference range was not used to interpr et this result as carmen l/abnormal. [facility] CenterZuywjdoWFWQJNIUQR2847-11-35 08:50:00 Test Item Value Reference Range Interpretation Comments Monocytes # (test code 0.6 See_Comment N [Aut omated message] The = Monocytes #) system which generated this result tra nsmitted reference range : <=0.8. The reference r megan was not used to int erpret this result as normal/abnormal . [facility] CenterCiomktoRODHQXSVEL6686-81-03 08:50:00 Test Item Value Reference Range Interpretation Comments Basophils # (test code 0.1 See_Comment N [Aut omated message] The = Basophils #) system which generated this result tra nsmitted reference range : <=0.2. The reference r megan was not used to int erpret this result as normal/abnormal . [facility] CenterGyjubeeOQNIQQEQMG3953-86-05 08:50:00 Test Item Value Reference Range Interpretation Comments Eosinophils # (test code 0.1 See_Comment N [A utomated message] The = Eosinophils #) system whic h generated this result tra nsmitted reference range : <=0.5. The reference r megan was not used to int erpret this result as normal/abnormal . [facility] CenterDzomwalTXTSQREUPK5835-98-32 08:50:00 Test Item Value Reference Range Interpretation Comments Eosinophils (test code = 1.0 See_Comment N [A utomated message] The Eosinophils) system which ge nerated this result tra nsmitted reference range : <=4.0. The reference r megan was not used to int erpret this result as normal/abnormal . [facility] CenterGjitjyhRAHIDPWRFQ4128-05-40 08:50:00 Test Item Value Reference Range Interpretation Comments Monocytes (test code = Monocytes) 6.2 2.0-12.0 N [facility] CenterKbtvaqnVIGYFJECID5625-86-58 08:50:00 Test Item Value Reference Range Interpretation Comments Basophils (test code = 0.6 See_Comment N [Aut omated message] The Basophils) system which ge nerated this result tra nsmitted reference range : <=1.0. The reference r megan was not used to int erpret this result as normal/abnormal . [facility] CenterCabpiouBGWAOHWPF0066-96-08 08:50:00 Test Item Value Reference Range Interpretation Comments Bili Total (test code = Bili Total) 0.5 0.2-1.3 N [facility] CenterXujzlrfDSDCYEDWM4452-77-79 08:50:00 Test Item Value Reference Range Interpretation Comments AST (test code = AST) 23 See_Comment N [Auto mated message] The system which ge nerated this result transmit ashanti reference range : <=37. The reference range was not used to interpr et this result as carmen l/abnormal. [facility] CenterTsckvtpIWYXWMNBD5595-17-49 08:50:00 Test Item Value Reference Range Interpretation Comments Glucose Lvl (test code = Glucose Lvl) 79 70-99 N [facility] CenterVlnzjovHAMMUTVWA5265-02-14 08:50:00 Test Item Value Reference Range Interpretation Comments Alk Phos (test code = Alk Phos) 50 39-136 N [facility]AmzngvoQTRDWUMYMV2276-44-41 08:50:00 Test Item Value Reference Range Interpretation Comments Lymphocytes # (test code = Lymphocytes 3.9 1.0-5.5 N #) [facility] CenterTnkewjiQJHJPKXQJ7302-68-89 08:50:00 Test Item Value Reference Range Interpretation Comments CO2 (test code = CO2) 24 24-32 N [facility] CenterFgxvbuaEAXWBGKRV4647-97-00 08:50:00 Test Item Value Reference Range Interpretation Comments BUN (test code = BUN) 10 7-22 N [facility] CenterIrsuzrhMAHNISOJS7422-88-49 08:50:00 Test Item Value Reference Range Interpretation Comments Total Protein (test code = Total 5.6 6.4-8.4 L Protein) [facility] CenterHyqfvtvDQXANZRWO6107-16-29 08:50:00 Test Item Value Reference Range Interpretation Comments ALT (test code = ALT) 30 See_Comment N [Auto mated message] The system which ge nerated this result transmit ashanti reference range : <=65. The reference range was not used to interpr et this result as carmen l/abnormal. [facility] CenterUwyvaomYUZGOAVMV0713-21-67 08:50:00 Test Item Value Reference Range Interpretation Comments Albumin Lvl (test code = Albumin Lvl) 3.3 3.5-5.0 L [facility] CenterRxnizbqALZTEDUUF4778-39-38 08:50:00 Test Item Value Reference Range Interpretation Comments eGFR (test code = eGFR) 115 [facility] CenterEgaqsccQWQFZBCNE3231-52-21 08:50:00 Test Item Value Reference Range Interpretation Comments Potassium Lvl (test code = Potassium 3.7 3.5-5.1 N Lvl) [facility] CenterYwyamhuWBKPHELTR0709-58-98 08:50:00 Test Item Value Reference Range Interpretation Comments Sodium Lvl (test code = Sodium Lvl) 144 135-145 N [facility] CenterHnogbjzOQRFDLQHP8939-53-09 08:50:00 Test Item Value Reference Range Interpretation Comments Creatinine Lvl (test code = Creatinine 0.7 0.5-1.4 N Lvl) [facility] CenterEttifkbJCFDXTENB5675-38-55 08:50:00 Test Item Value Reference Range Interpretation Comments Calcium Lvl (test code = Calcium Lvl) 8.3 8.5-10.5 L [facility] CenterVzcmikjOZCCXPKZTB2159-41-86 08:50:00 Test Item Value Reference Range Interpretation Comments Segs-Bands # (test code = Segs-Bands #) 5.1 1.5-8.1 N [facility] CenterOhhbdqvQGTXWYYCZ6001-99-95 08:50:00 Test Item Value Reference Range Interpretation Comments Chloride Lvl (test code = Chloride Lvl) 108 95-109 N [facility] CenterPwpshggTGGJVLFTH9930-08-77 08:50:00 Test Item Value Reference Range Interpretation Comments B/C Ratio (test code = B/C Ratio) 14 6-25 N [facility] CenterCwjdzlnVVQUAAVLE3663-58-92 08:50:00 Test Item Value Reference Range Interpretation Comments Globulin (test code = Globulin) 2.3 2.0-4.0 N [facility] CenterUmcwummAUBZYDMCT7587-29-26 08:50:00 Test Item Value Reference Range Interpretation Comments AGAP (test code = AGAP) 15.7 10.0-20.0 N [facility] CenterRsktjpkBAWCOCSSO0901-81-38 08:50:00 Test Item Value Reference Range Interpretation Comments A/G Ratio (test code = A/G Ratio) 1.4 0.7-1.6 N [facility] CenterLxorcgsFVVXSPMNFX0623-19-22 08:50:00 Test Item Value Reference Range Interpretation Comments MCHC (test code = MCHC) 32.0 32.0-36.0 N [facility] CenterOurcejzDAZARYMDFK8582-27-28 08:50:00 Test Item Value Reference Range Interpretation Comments Platelet (test code = Platelet) 229 133-450 N [facility] CenterVyifostNBDQJMWVAK6346-12-67 08:50:00 Test Item Value Reference Range Interpretation Comments MPV (test code = MPV) 9.5 7.4-10.4 N [facility] CenterXdejlluLKSCZFHJXS5423-50-64 08:50:00 Test Item Value Reference Range Interpretation Comments RDW (test code = RDW) 16.3 11.5-14.5 H [facility] CenterHnpkrnqQMFZEDHXWR7405-37-58 08:50:00 Test Item Value Reference Range Interpretation Comments WBC (test code = WBC) 9.8 3.7-10.4 N [facility] CenterSqipwscHRLIJTHLRN3979-02-53 08:50:00 Test Item Value Reference Range Interpretation Comments Segs (test code = Segs) 52.6 45.0-75.0 N [facility] CenterUpuqlfnRLSNMADMZD0194-61-49 08:50:00 Test Item Value Reference Range Interpretation Comments RBC (test code = RBC) 3.57 4.20-5.40 L [facility] CenterLevurviLPQZUHPUOW5088-06-74 08:50:00 Test Item Value Reference Range Interpretation Comments MCH (test code = MCH) 26.6 pg 27.0-31.0 L [facility] CenterKizkrluKRIAQALPJD6938-88-35 08:50:00 Test Item Value Reference Range Interpretation Comments Hct (test code = Hct) 29.7 36.0-48.0 L [facility] CenterNndrvwrXCYXQIHLFQ3684-83-14 08:50:00 Test Item Value Reference Range Interpretation Comments MCV (test code = MCV) 83.1 81.0-99.0 N [facility] CenterKgilhhcALNOSURBDE2711-00-97 08:50:00 Test Item Value Reference Range Interpretation Comments Hgb (test code = Hgb) 9.5 12.0-16.0 L [facility] CenterAtecnyrUMWQTBQHCH3276-21-98 08:50:00 Test Item Value Reference Range Interpretation Comments Anisocyte (test code = 1+ *ABN*(12/12/2012 A Anisocyte) 02:50:00) [facility] CenterAfoqealBDIWMGWBZM4934-33-67 08:50:00 Test Item Value Reference Range Interpretation Comments Monocytes # (test code 0.6 See_Comment N [Aut omated message] The = Monocytes #) system which generated this result tra nsmitted reference range : <=0.8. The reference r megan was not used to int erpret this result as normal/abnormal . [facility] CenterQmuddeaLTRSTBVXMA4135-70-21 08:50:00 Test Item Value Reference Range Interpretation Comments Basophils # (test code 0.1 See_Comment N [Aut omated message] The = Basophils #) system which generated this result tra nsmitted reference range : <=0.2. The reference r megan was not used to int erpret this result as normal/abnormal . [facility] CenterVduiqggYGUOBQLXEK9933-78-86 08:50:00 Test Item Value Reference Range Interpretation Comments Eosinophils # (test code 0.1 See_Comment N [A utomated message] The = Eosinophils #) system whic h generated this result tra nsmitted reference range : <=0.5. The reference r megan was not used to int erpret this result as normal/abnormal . [facility] CenterXwyedzqNMNNZGLYZJ5866-33-86 08:50:00 Test Item Value Reference Range Interpretation Comments Eosinophils (test code = 1.0 See_Comment N [A utomated message] The Eosinophils) system which ge nerated this result tra nsmitted reference range : <=4.0. The reference r megan was not used to int erpret this result as normal/abnormal . [facility] CenterXgqoookQNRJICVKVG1203-71-44 08:50:00 Test Item Value Reference Range Interpretation Comments Lymphocytes (test code = Lymphocytes) 39.6 20.0-40.0 N [facility] CenterIqajllrKROOYPQHHN8560-31-84 08:50:00 Test Item Value Reference Range Interpretation Comments Monocytes (test code = Monocytes) 6.2 2.0-12.0 N [facility] CenterSfypbowWATYWJZXWO4670-84-64 08:50:00 Test Item Value Reference Range Interpretation Comments Basophils (test code = 0.6 See_Comment N [Aut omated message] The Basophils) system which ge nerated this result tra nsmitted reference range : <=1.0. The reference r megan was not used to int erpret this result as normal/abnormal . [facility] CenterRiyfdbtQNOGMILLHT8040-39-85 08:50:00 Test Item Value Reference Range Interpretation Comments Lymphocytes # (test code = Lymphocytes 3.9 1.0-5.5 N #) [facility] CenterYhhmcrbQAURAUJHWI5663-07-87 08:50:00 Test Item Value Reference Range Interpretation Comments Segs-Bands # (test code = Segs-Bands #) 5.1 1.5-8.1 N [facility] CenterWvzjsvbEQVKCOADSC0378-61-57 08:50:00 Test Item Value Reference Range Interpretation Comments Segs (test code = Segs) 52.6 45.0-75.0 N [facility] CenterOswjpkqXQOWIWFBJQ7526-74-40 08:50:00 Test Item Value Reference Range Interpretation Comments Lymphocytes (test code = Lymphocytes) 39.6 20.0-40.0 N [facility] CenterXeonurzRNBFZNDGJK5917-47-92 08:50:00 Test Item Value Reference Range Interpretation Comments Plt Morph (test code = Normal (12/12/2012 N Plt Morph) 02:50:00) [facility] CenterJzgymzvZSWJNHCOU3461-93-00 08:50:00 Test Item Value Reference Range Interpretation Comments Albumin Lvl (test code = Albumin Lvl) 3.3 3.5-5.0 L [facility] CenterRdblgldBKALEPKMBQ1020-39-62 08:50:00 Test Item Value Reference Range Interpretation Comments Plt Morph (test code = Normal (12/12/2012 N Plt Morph) 02:50:00) [facility] CenterXakeazkMSCZZLLDM5664-92-94 08:50:00 Test Item Value Reference Range Interpretation Comments eGFR (test code = eGFR) 115 [facility] CenterAhimvrzHTWLORAEI1348-31-83 08:50:00 Test Item Value Reference Range Interpretation Comments Bili Total (test code = Bili Total) 0.5 0.2-1.3 N [facility] CenterSkxnwbvIFIYZPGEH9102-11-36 08:50:00 Test Item Value Reference Range Interpretation Comments AST (test code = AST) 23 See_Comment N [Auto mated message] The system which ge nerated this result transmit ashanti reference range : <=37. The reference range was not used to interpr et this result as carmen l/abnormal. [facility] CenterShtdgovSPGSZXIIS8385-29-88 08:50:00 Test Item Value Reference Range Interpretation Comments Glucose Lvl (test code = Glucose Lvl) 79 70-99 N [facility] CenterHtpdnqrSDPSXPTDH3070-90-47 08:50:00 Test Item Value Reference Range Interpretation Comments Alk Phos (test code = Alk Phos) 50 39-136 N [facility] CenterXeajvfjXOVEDWUKQ6352-71-23 08:50:00 Test Item Value Reference Range Interpretation Comments CO2 (test code = CO2) 24 24-32 N [facility] CenterNxnwbdiPVOUBNBOW5147-25-32 08:50:00 Test Item Value Reference Range Interpretation Comments BUN (test code = BUN) 10 7-22 N [facility] CenterTzshougBUPCWCYDV8576-16-58 08:50:00 Test Item Value Reference Range Interpretation Comments Total Protein (test code = Total 5.6 6.4-8.4 L Protein) [facility] CenterLsrjdiaGBZUVWNJX5698-39-06 08:50:00 Test Item Value Reference Range Interpretation Comments ALT (test code = ALT) 30 See_Comment N [Auto mated message] The system which ge nerated this result transmit ashanti reference range : <=65. The reference range was not used to interpr et this result as carmen l/abnormal. [facility] CenterAnzgsjvNAUDCFDLR0600-23-61 08:50:00 Test Item Value Reference Range Interpretation Comments Albumin Lvl (test code = Albumin Lvl) 3.3 3.5-5.0 L [facility] CenterOmftkihHLAGVSZPR8578-44-34 08:50:00 Test Item Value Reference Range Interpretation Comments eGFR (test code = eGFR) 115 [facility] CenterNoicebjCPAHDBPEW1747-15-62 08:50:00 Test Item Value Reference Range Interpretation Comments Potassium Lvl (test code = Potassium 3.7 3.5-5.1 N Lvl) [facility] CenterVepfsjzKWZMDFBHU1761-73-79 08:50:00 Test Item Value Reference Range Interpretation Comments Sodium Lvl (test code = Sodium Lvl) 144 135-145 N [facility] CenterGkgxywlIVAOIXYIQ1092-46-39 08:50:00 Test Item Value Reference Range Interpretation Comments Creatinine Lvl (test code = Creatinine 0.7 0.5-1.4 N Lvl) [facility] CenterKuejkgjAJQQAHGSP2844-17-05 08:50:00 Test Item Value Reference Range Interpretation Comments Calcium Lvl (test code = Calcium Lvl) 8.3 8.5-10.5 L [facility] CenterTvtwgcxBVENVKYWQ7703-23-11 08:50:00 Test Item Value Reference Range Interpretation Comments Chloride Lvl (test code = Chloride Lvl) 108 95-109 N [facility] CenterKrqvzblPBVNQCQAR2630-84-91 08:50:00 Test Item Value Reference Range Interpretation Comments B/C Ratio (test code = B/C Ratio) 14 6-25 N [facility] CenterQxmrzjnEECTTFLXQ6504-62-63 08:50:00 Test Item Value Reference Range Interpretation Comments Globulin (test code = Globulin) 2.3 2.0-4.0 N [facility] CenterSirhhqyLSACWQUVP5355-30-48 08:50:00 Test Item Value Reference Range Interpretation Comments AGAP (test code = AGAP) 15.7 10.0-20.0 N [facility] CenterBjonpdoMTDREUDSI7283-07-07 08:50:00 Test Item Value Reference Range Interpretation Comments A/G Ratio (test code = A/G Ratio) 1.4 0.7-1.6 N [facility] CenterJnfyjclGKKCFMBAWW9815-78-42 08:50:00 Test Item Value Reference Range Interpretation Comments MCHC (test code = MCHC) 32.0 32.0-36.0 N [facility] CenterAtyugorRYDYKHFXTO9104-81-61 08:50:00 Test Item Value Reference Range Interpretation Comments Platelet (test code = Platelet) 229 133-450 N [facility] CenterHnvsvgcDQZTRCFPTG8885-11-23 08:50:00 Test Item Value Reference Range Interpretation Comments MPV (test code = MPV) 9.5 7.4-10.4 N [facility] CenterHjpeqhcRXVPWWEWXA6395-57-31 08:50:00 Test Item Value Reference Range Interpretation Comments RDW (test code = RDW) 16.3 11.5-14.5 H [facility] CenterAepuvxkUNWFIPKKBR1492-54-59 08:50:00 Test Item Value Reference Range Interpretation Comments WBC (test code = WBC) 9.8 3.7-10.4 N [facility] CenterZtgsaqiUMWBTTZHTW1353-94-18 08:50:00 Test Item Value Reference Range Interpretation Comments RBC (test code = RBC) 3.57 4.20-5.40 L [facility] CenterAiwjjddICOVHEKWCD1688-66-04 08:50:00 Test Item Value Reference Range Interpretation Comments MCH (test code = MCH) 26.6 pg 27.0-31.0 L [facility] CenterYzrhqqgWWVMSNRXHY5243-35-70 08:50:00 Test Item Value Reference Range Interpretation Comments Hct (test code = Hct) 29.7 36.0-48.0 L [facility] CenterBhzzibbFIUQRDIZKF0927-54-12 08:50:00 Test Item Value Reference Range Interpretation Comments MCV (test code = MCV) 83.1 81.0-99.0 N [facility] CenterQynjvnfKTCHZHNSEM5551-67-67 08:50:00 Test Item Value Reference Range Interpretation Comments Hgb (test code = Hgb) 9.5 12.0-16.0 L [facility] CenterYpuijztCLDKLBZNUV3082-60-79 08:50:00 Test Item Value Reference Range Interpretation Comments Anisocyte (test code = 1+ *ABN*(12/12/2012 A Anisocyte) 02:50:00) [facility] CenterSqblrhjKPFLBYKPQS6675-70-11 08:50:00 Test Item Value Reference Range Interpretation Comments Monocytes # (test code 0.6 See_Comment N [Aut omated message] The = Monocytes #) system which generated this result tra nsmitted reference range : <=0.8. The reference r megan was not used to int erpret this result as normal/abnormal . [facility] CenterHfgqcnkQCQLXENQJV7905-90-06 08:50:00 Test Item Value Reference Range Interpretation Comments Basophils # (test code 0.1 See_Comment N [Aut omated message] The = Basophils #) system which generated this result tra nsmitted reference range : <=0.2. The reference r megan was not used to int erpret this result as normal/abnormal . [facility] CenterIolwwrvBPGFOUKNDX6457-45-50 08:50:00 Test Item Value Reference Range Interpretation Comments Eosinophils # (test code 0.1 See_Comment N [A utomated message] The = Eosinophils #) system wh h generated this result tra nsmitted reference range : <=0.5. The reference r megan was not used to int erpret this result as normal/abnormal . [facility] CenterBjglpaiLREHIWKCLL6141-25-39 08:50:00 Test Item Value Reference Range Interpretation Comments Eosinophils (test code = 1.0 See_Comment N [A utomated message] The Eosinophils) system which ge nerated this result tra nsmitted reference range : <=4.0. The reference r megan was not used to int erpret this result as normal/abnormal . [facility] CenterMjgmodwEJQZGUPFFL1938-46-55 08:50:00 Test Item Value Reference Range Interpretation Comments Monocytes (test code = Monocytes) 6.2 2.0-12.0 N [facility] CenterHxlknkwYMDMBERBFD8073-83-33 08:50:00 Test Item Value Reference Range Interpretation Comments Basophils (test code = 0.6 See_Comment N [Aut omated message] The Basophils) system which ge nerated this result tra nsmitted reference range : <=1.0. The reference r megan was not used to int erpret this result as normal/abnormal . [facility] CenterUafitehVIVAAXMOJI4918-32-94 08:50:00 Test Item Value Reference Range Interpretation Comments Lymphocytes # (test code = Lymphocytes 3.9 1.0-5.5 N #) [facility] CenterGubxosjNQBXKKQDMQ5899-94-59 08:50:00 Test Item Value Reference Range Interpretation Comments Segs-Bands # (test code = Segs-Bands #) 5.1 1.5-8.1 N [facility] CenterOtuzyquULBOWAYGYW5386-57-41 08:50:00 Test Item Value Reference Range Interpretation Comments Segs (test code = Segs) 52.6 45.0-75.0 [facility]ZzjplgxTYJHUINBHG6567-80-05 08:50:00 Test Item Value Reference Range Interpretation Comments Lymphocytes (test code = Lymphocytes) 39.6 20.0-40.0 N [facility] CenterOqvggvaKHQJPFSAXM8637-41-76 08:50:00 Test Item Value Reference Range Interpretation Comments Plt Morph (test code = Normal (12/12/2012 N Plt Morph) 02:50:00) [facility]RwoqdruNYSWXQBWP3272-00-60 08:50:00 Test Item Value Reference Range Interpretation Comments Potassium Lvl (test code = Potassium 3.7 3.5-5.1 N Lvl) [facility] CenterVxersqoZEUIAFDYU1687-11-26 08:50:00 Test Item Value Reference Range Interpretation Comments Sodium Lvl (test code = Sodium Lvl) 144 135-145 N [facility] CenterAcnrezjQELEXGVLF3945-90-27 08:50:00 Test Item Value Reference Range Interpretation Comments Bili Total (test code = Bili Total) 0.5 0.2-1.3 N [facility] CenterAsixuvsMSXSLJUUI4844-84-75 08:50:00 Test Item Value Reference Range Interpretation Comments AST (test code = AST) 23 See_Comment N [Auto mated message] The system which ge nerated this result transmit ashanti reference range : <=37. The reference range was not used to interpr et this result as carmen l/abnormal. [facility] CenterYeilbvoRFSFBMIIC5020-79-09 08:50:00 Test Item Value Reference Range Interpretation Comments Glucose Lvl (test code = Glucose Lvl) 79 70-99 N [facility] CenterFjgrycjSAVKPXYCD1638-96-50 08:50:00 Test Item Value Reference Range Interpretation Comments Alk Phos (test code = Alk Phos) 50 39-136 N [facility] CenterSxjtdqnZWZLNTBLD0719-31-78 08:50:00 Test Item Value Reference Range Interpretation Comments CO2 (test code = CO2) 24 24-32 N [facility] CenterDlsaszlFDVHCQCKT7634-46-34 08:50:00 Test Item Value Reference Range Interpretation Comments BUN (test code = BUN) 10 7-22 N [facility] CenterUnguvyaTSGHXGHGH1559-97-48 08:50:00 Test Item Value Reference Range Interpretation Comments Total Protein (test code = Total 5.6 6.4-8.4 L Protein) [facility] CenterJydkukjBBQCTLDKE0239-43-98 08:50:00 Test Item Value Reference Range Interpretation Comments ALT (test code = ALT) 30 See_Comment N [Auto mated message] The system which ge nerated this result transmit ashanti reference range : <=65. The reference range was not used to interpr et this result as carmen l/abnormal. [facility] CenterRxfkjnxJNONUSOAS3419-50-06 08:50:00 Test Item Value Reference Range Interpretation Comments Albumin Lvl (test code = Albumin Lvl) 3.3 3.5-5.0 L [facility] CenterJxelvvcJEEFEJVGP8671-98-35 08:50:00 Test Item Value Reference Range Interpretation Comments eGFR (test code = eGFR) 115 [facility] CenterBfnxppoMBRDLNGPM9527-43-93 08:50:00 Test Item Value Reference Range Interpretation Comments Potassium Lvl (test code = Potassium 3.7 3.5-5.1 N Lvl) [facility] CenterGkmlqghZVXPZJDFI8424-86-04 08:50:00 Test Item Value Reference Range Interpretation Comments Sodium Lvl (test code = Sodium Lvl) 144 135-145 N [facility] CenterCecprgePSDRGJTNZ2250-66-85 08:50:00 Test Item Value Reference Range Interpretation Comments Creatinine Lvl (test code = Creatinine 0.7 0.5-1.4 N Lvl) [facility] CenterLjfzyeiYIJAXMUDH0961-02-29 08:50:00 Test Item Value Reference Range Interpretation Comments Calcium Lvl (test code = Calcium Lvl) 8.3 8.5-10.5 L [facility] CenterCaxilnpHJAMDOCUV6241-75-67 08:50:00 Test Item Value Reference Range Interpretation Comments Chloride Lvl (test code = Chloride Lvl) 108 95-109 N [facility] CenterHzxhimjLWDDKHJTT8076-47-69 08:50:00 Test Item Value Reference Range Interpretation Comments B/C Ratio (test code = B/C Ratio) 14 6-25 N [facility] CenterSzsbgetAROGLLYOZ3946-98-03 08:50:00 Test Item Value Reference Range Interpretation Comments Globulin (test code = Globulin) 2.3 2.0-4.0 N [facility] CenterVbpudqlUMIQGECNY5298-11-14 08:50:00 Test Item Value Reference Range Interpretation Comments AGAP (test code = AGAP) 15.7 10.0-20.0 N [facility] CenterOgstpmxRKGAVRYJJ7234-27-49 08:50:00 Test Item Value Reference Range Interpretation Comments A/G Ratio (test code = A/G Ratio) 1.4 0.7-1.6 N [facility] CenterGjyielpDAJXSMZUIK4625-06-82 08:50:00 Test Item Value Reference Range Interpretation Comments MCHC (test code = MCHC) 32.0 32.0-36.0 N [facility] CenterVjmpoxgKFXBBCCXPE7198-07-92 08:50:00 Test Item Value Reference Range Interpretation Comments Platelet (test code = Platelet) 229 133-450 N [facility] CenterGdlpuewXUWCKHQPBW2274-94-27 08:50:00 Test Item Value Reference Range Interpretation Comments MPV (test code = MPV) 9.5 7.4-10.4 N [facility] CenterItzbmveYYWGUBTQHX8999-19-06 08:50:00 Test Item Value Reference Range Interpretation Comments RDW (test code = RDW) 16.3 11.5-14.5 [facility] CenterHxnfadwOXYXEKEBJK2849-04-61 08:50:00 Test Item Value Reference Range Interpretation Comments WBC (test code = WBC) 9.8 3.7-10.4 N [facility] CenterWzaitnmQHMYRFHSCQ9290-83-18 08:50:00 Test Item Value Reference Range Interpretation Comments RBC (test code = RBC) 3.57 4.20-5.40 L [facility] CenterEjoqfmkOQHQVZOSIT0973-42-25 08:50:00 Test Item Value Reference Range Interpretation Comments MCH (test code = MCH) 26.6 pg 27.0-31.0 L [facility] CenterQnontcfUTEAIORHTX8700-15-49 08:50:00 Test Item Value Reference Range Interpretation Comments Hct (test code = Hct) 29.7 36.0-48.0 L [facility] CenterKkbowvrCGDGWXILTD2864-12-79 08:50:00 Test Item Value Reference Range Interpretation Comments MCV (test code = MCV) 83.1 81.0-99.0 N [facility] CenterOyjjaakIBCDWIRZHW0084-14-88 08:50:00 Test Item Value Reference Range Interpretation Comments Hgb (test code = Hgb) 9.5 12.0-16.0 L [facility] CenterLjkccjxIOAYKQFKBT6950-11-12 08:50:00 Test Item Value Reference Range Interpretation Comments Anisocyte (test code = 1+ *ABN*(12/12/2012 A Anisocyte) 02:50:00) [facility] CenterJvrztsrEWUIKCZPZN3794-26-33 08:50:00 Test Item Value Reference Range Interpretation Comments Monocytes # (test code 0.6 See_Comment N [Aut omated message] The = Monocytes #) system which generated this result tra nsmitted reference range : <=0.8. The reference r megan was not used to int erpret this result as normal/abnormal . [facility] CenterAansmboZQLWSWGCDO6703-39-79 08:50:00 Test Item Value Reference Range Interpretation Comments Basophils # (test code 0.1 See_Comment N [Aut omated message] The = Basophils #) system which generated this result tra nsmitted reference range : <=0.2. The reference r megan was not used to int erpret this result as normal/abnormal . [facility] CenterAnbvslwRDOACVVWBB3870-41-31 08:50:00 Test Item Value Reference Range Interpretation Comments Eosinophils # (test code 0.1 See_Comment N [A utomated message] The = Eosinophils #) system whic h generated this result tra nsmitted reference range : <=0.5. The reference r megan was not used to int erpret this result as normal/abnormal . [facility] CenterWlxhycoDITRFAGBJO9528-45-55 08:50:00 Test Item Value Reference Range Interpretation Comments Eosinophils (test code = 1.0 See_Comment N [A utomated message] The Eosinophils) system which ge nerated this result tra nsmitted reference range : <=4.0. The reference r megan was not used to int erpret this result as normal/abnormal . [facility] CenterKwmfuevXITSXSDBHL4516-11-15 08:50:00 Test Item Value Reference Range Interpretation Comments Monocytes (test code = Monocytes) 6.2 2.0-12.0 N [facility] CenterZekugkqGCEGLBLRYS8856-59-60 08:50:00 Test Item Value Reference Range Interpretation Comments Basophils (test code = 0.6 See_Comment N [Aut omated message] The Basophils) system which ge nerated this result tra nsmitted reference range : <=1.0. The reference r megan was not used to int erpret this result as normal/abnormal . [facility] CenterVyidzozOGJFEEXKXU8913-96-27 08:50:00 Test Item Value Reference Range Interpretation Comments Lymphocytes # (test code = Lymphocytes 3.9 1.0-5.5 N #) [facility] CenterTnidwobVFTKNSVSUX3095-02-42 08:50:00 Test Item Value Reference Range Interpretation Comments Segs-Bands # (test code = Segs-Bands #) 5.1 1.5-8.1 N [facility] CenterOdfkcjaLRFGUFRBNL8866-44-30 08:50:00 Test Item Value Reference Range Interpretation Comments Segs (test code = Segs) 52.6 45.0-75.0 N [facility] CenterShgwetyPUAHXABUUD0869-59-27 08:50:00 Test Item Value Reference Range Interpretation Comments Lymphocytes (test code = Lymphocytes) 39.6 20.0-40.0 N [facility] CenterVilnnftCXDZOHNFBP8648-27-98 08:50:00 Test Item Value Reference Range Interpretation Comments Plt Morph (test code = Normal (12/12/2012 N Plt Morph) 02:50:00) [facility] CenterUrfacltMSOREJVRR1254-93-30 08:50:00 Test Item Value Reference Range Interpretation Comments Creatinine Lvl (test code = Creatinine 0.7 0.5-1.4 N Lvl) [facility] CenterIugqvdcZKJHHPHDH9702-49-53 08:50:00 Test Item Value Reference Range Interpretation Comments Bili Total (test code = Bili Total) 0.5 0.2-1.3 N [facility] CenterSkbcwswJOSRBDSAI3758-62-31 08:50:00 Test Item Value Reference Range Interpretation Comments AST (test code = AST) 23 See_Comment N [Auto mated message] The system which ge nerated this result transmit ashanti reference range : <=37. The reference range was not used to interpr et this result as carmen l/abnormal. [facility] CenterKphfhqoULQOJSPNV3309-86-00 08:50:00 Test Item Value Reference Range Interpretation Comments Glucose Lvl (test code = Glucose Lvl) 79 70-99 N [facility] CenterFqayrrgGDUBYPSFP0447-59-48 08:50:00 Test Item Value Reference Range Interpretation Comments Alk Phos (test code = Alk Phos) 50 39-136 N [facility] CenterNtsjppyWXTHFKJBG2795-07-96 08:50:00 Test Item Value Reference Range Interpretation Comments CO2 (test code = CO2) 24 24-32 N [facility] CenterRbyrrycENIYPPSVJ1393-51-15 08:50:00 Test Item Value Reference Range Interpretation Comments BUN (test code = BUN) 10 7-22 N [facility] CenterHdpbsphMJNBGAQMU3792-23-84 08:50:00 Test Item Value Reference Range Interpretation Comments Total Protein (test code = Total 5.6 6.4-8.4 L Protein) [facility] CenterPxxebxbSCHAPZIJK8579-13-28 08:50:00 Test Item Value Reference Range Interpretation Comments ALT (test code = ALT) 30 See_Comment N [Auto mated message] The system which ge nerated this result transmit ashanti reference range : <=65. The reference range was not used to interpr et this result as carmen l/abnormal. [facility] CenterAcfgjqoCZZGLQPLK9741-46-54 08:50:00 Test Item Value Reference Range Interpretation Comments Albumin Lvl (test code = Albumin Lvl) 3.3 3.5-5.0 L [facility] CenterMlrunrjBRYDQEGCO5494-07-55 08:50:00 Test Item Value Reference Range Interpretation Comments eGFR (test code = eGFR) 115 [facility] CenterQnvlkzbVYNKDMAMH3207-66-41 08:50:00 Test Item Value Reference Range Interpretation Comments Potassium Lvl (test code = Potassium 3.7 3.5-5.1 N Lvl) [facility] CenterLkegwglNDZYTDBVY7708-38-94 08:50:00 Test Item Value Reference Range Interpretation Comments Sodium Lvl (test code = Sodium Lvl) 144 135-145 N [facility] CenterTxiklcpLBRXNJGCP6962-35-85 08:50:00 Test Item Value Reference Range Interpretation Comments Creatinine Lvl (test code = Creatinine 0.7 0.5-1.4 N Lvl) [facility] CenterYempxwwJXMGBCVWP1846-08-78 08:50:00 Test Item Value Reference Range Interpretation Comments Calcium Lvl (test code = Calcium Lvl) 8.3 8.5-10.5 L [facility] CenterJagbzhgBRTJRFFZK0577-62-82 08:50:00 Test Item Value Reference Range Interpretation Comments Chloride Lvl (test code = Chloride Lvl) 108 95-109 N [facility] CenterOzlkmftHUHPLBNAH9292-63-80 08:50:00 Test Item Value Reference Range Interpretation Comments B/C Ratio (test code = B/C Ratio) 14 6-25 N [facility] CenterUihcllqCLBIOKBQL3921-89-16 08:50:00 Test Item Value Reference Range Interpretation Comments Globulin (test code = Globulin) 2.3 2.0-4.0 N [facility] CenterLpvlkcuPQTTHGETW2205-73-04 08:50:00 Test Item Value Reference Range Interpretation Comments AGAP (test code = AGAP) 15.7 10.0-20.0 N [facility] CenterAhfqymlRZJGTUBMM7715-04-29 08:50:00 Test Item Value Reference Range Interpretation Comments A/G Ratio (test code = A/G Ratio) 1.4 0.7-1.6 N [facility] CenterCnhcoglGTOIYCNELB3746-71-50 08:50:00 Test Item Value Reference Range Interpretation Comments MCHC (test code = MCHC) 32.0 32.0-36.0 N [facility] CenterZkvqhgcDZMOXCLTXD5976-03-58 08:50:00 Test Item Value Reference Range Interpretation Comments Platelet (test code = Platelet) 229 133-450 N [facility] CenterLupjkcvZUDSAEDDGR7770-33-87 08:50:00 Test Item Value Reference Range Interpretation Comments MPV (test code = MPV) 9.5 7.4-10.4 N [facility] CenterGcgjbcnCUIVQEYWOL9426-83-02 08:50:00 Test Item Value Reference Range Interpretation Comments RDW (test code = RDW) 16.3 11.5-14.5 H [facility] CenterKbnjntbHZCKYXLCEV6431-57-14 08:50:00 Test Item Value Reference Range Interpretation Comments WBC (test code = WBC) 9.8 3.7-10.4 N [facility] CenterFjjucbpTJJLURLWGS1419-70-09 08:50:00 Test Item Value Reference Range Interpretation Comments RBC (test code = RBC) 3.57 4.20-5.40 L [facility] CenterRhvwqivFXUKFXMRZU5357-01-26 08:50:00 Test Item Value Reference Range Interpretation Comments MCH (test code = MCH) 26.6 pg 27.0-31.0 L [facility] CenterQpieqagMLXCUIQRMJ1052-28-45 08:50:00 Test Item Value Reference Range Interpretation Comments Hct (test code = Hct) 29.7 36.0-48.0 L [facility] CenterMbulghbAXTUUPFUAW5928-61-40 08:50:00 Test Item Value Reference Range Interpretation Comments MCV (test code = MCV) 83.1 81.0-99.0 N [facility] CenterGjwrjosONPVJWHPC0124-10-86 08:50:00 Test Item Value Reference Range Interpretation Comments Calcium Lvl (test code = Calcium Lvl) 8.3 8.5-10.5 L [facility] CenterVqxdasaYTCGCXXBNR5870-17-80 08:50:00 Test Item Value Reference Range Interpretation Comments Hgb (test code = Hgb) 9.5 12.0-16.0 L [facility] CenterTrorzdlGLSAMSHTIP0193-12-99 08:50:00 Test Item Value Reference Range Interpretation Comments Anisocyte (test code = 1+ *ABN*(12/12/2012 A Anisocyte) 02:50:00) [facility] CenterBuamiopGSECTPHJSU1941-70-46 08:50:00 Test Item Value Reference Range Interpretation Comments Monocytes # (test code 0.6 See_Comment N [Aut omated message] The = Monocytes #) system which generated this result tra nsmitted reference range : <=0.8. The reference r megan was not used to int erpret this result as normal/abnormal . [facility] CenterFnrwacsSPAAQDZKTA3586-09-53 08:50:00 Test Item Value Reference Range Interpretation Comments Basophils # (test code 0.1 See_Comment N [Aut omated message] The = Basophils #) system which generated this result tra nsmitted reference range : <=0.2. The reference r megan was not used to int erpret this result as normal/abnormal . [facility] CenterYarqbzaAZACSCWCME1500-27-66 08:50:00 Test Item Value Reference Range Interpretation Comments Eosinophils # (test code 0.1 See_Comment N [A utomated message] The = Eosinophils #) system whic h generated this result tra nsmitted reference range : <=0.5. The reference r megan was not used to int erpret this result as normal/abnormal . [facility] CenterIgdkhqaTATSNQYVBA7252-06-54 08:50:00 Test Item Value Reference Range Interpretation Comments Eosinophils (test code = 1.0 See_Comment N [A utomated message] The Eosinophils) system which ge nerated this result tra nsmitted reference range : <=4.0. The reference r megan was not used to int erpret this result as normal/abnormal . [facility] CenterTlsypmaKMWGBJCIWP2460-10-96 08:50:00 Test Item Value Reference Range Interpretation Comments Monocytes (test code = Monocytes) 6.2 2.0-12.0 N [facility] CenterRmtcfbsOBPKIFVIVW8547-23-77 08:50:00 Test Item Value Reference Range Interpretation Comments Basophils (test code = 0.6 See_Comment N [Aut omated message] The Basophils) system which ge nerated this result tra nsmitted reference range : <=1.0. The reference r megan was not used to int erpret this result as normal/abnormal . [facility] CenterSzbhymsBQRNYCVSPI4196-32-39 08:50:00 Test Item Value Reference Range Interpretation Comments Lymphocytes # (test code = Lymphocytes 3.9 1.0-5.5 N #) [facility] CenterGqvwhwpUMJBXHQVIW8452-72-51 08:50:00 Test Item Value Reference Range Interpretation Comments Segs-Bands # (test code = Segs-Bands #) 5.1 1.5-8.1 N [facility] CenterIabdnfhHHLFGUUBKV2469-24-27 08:50:00 Test Item Value Reference Range Interpretation Comments Segs (test code = Segs) 52.6 45.0-75.0 N [facility] CenterRqacltwEBPPFONRHI0902-15-17 08:50:00 Test Item Value Reference Range Interpretation Comments Lymphocytes (test code = Lymphocytes) 39.6 20.0-40.0 N [facility] CenterLswwvwuUCGSCNMPBJ5666-51-68 08:50:00 Test Item Value Reference Range Interpretation Comments Plt Morph (test code = Normal (12/12/2012 N Plt Morph) 02:50:00) [facility] CenterFmjwyrfZYXSPENWZ0762-22-34 08:50:00 Test Item Value Reference Range Interpretation Comments Chloride Lvl (test code = Chloride Lvl) 108 95-109 N [facility] CenterAxibtsxQUGNMSGDC6360-17-82 08:50:00 Test Item Value Reference Range Interpretation Comments Bili Total (test code = Bili Total) 0.5 0.2-1.3 N [facility] CenterKdkzhabNNBXTORGF6520-67-89 08:50:00 Test Item Value Reference Range Interpretation Comments AST (test code = AST) 23 See_Comment N [Auto mated message] The system which ge nerated this result transmit ashanti reference range : <=37. The reference range was not used to interpr et this result as carmen l/abnormal. [facility] CenterXmaeyjgYBNDEQPDR4887-17-28 08:50:00 Test Item Value Reference Range Interpretation Comments Glucose Lvl (test code = Glucose Lvl) 79 70-99 N [facility] CenterSimwspmTXGKYNBOZ5555-64-56 08:50:00 Test Item Value Reference Range Interpretation Comments Alk Phos (test code = Alk Phos) 50 39-136 N [facility] CenterLbczghpELMRGWZEA2554-85-75 08:50:00 Test Item Value Reference Range Interpretation Comments CO2 (test code = CO2) 24 24-32 N [facility] CenterDuiozeqKPRAMHXGX8562-32-86 08:50:00 Test Item Value Reference Range Interpretation Comments BUN (test code = BUN) 10 7-22 N [facility] CenterEddpferFXGSCEDBD8644-07-39 08:50:00 Test Item Value Reference Range Interpretation Comments Total Protein (test code = Total 5.6 6.4-8.4 L Protein) [facility] CenterGmrjbakLQZWIUHJS2746-81-64 08:50:00 Test Item Value Reference Range Interpretation Comments ALT (test code = ALT) 30 See_Comment N [Auto mated message] The system which ge nerated this result transmit ashanti reference range : <=65. The reference range was not used to interpr et this result as carmen l/abnormal. [facility] CenterSitbbamDYWVDFWXB5279-96-21 08:50:00 Test Item Value Reference Range Interpretation Comments Albumin Lvl (test code = Albumin Lvl) 3.3 3.5-5.0 L [facility] CenterLvthrjiDVLGOJXLU9016-48-20 08:50:00 Test Item Value Reference Range Interpretation Comments eGFR (test code = eGFR) 115 [facility] CenterLedrfapPDXPCHDEB8734-70-04 08:50:00 Test Item Value Reference Range Interpretation Comments Potassium Lvl (test code = Potassium 3.7 3.5-5.1 N Lvl) [facility] CenterPdogsegZUVBAMICG5535-52-31 08:50:00 Test Item Value Reference Range Interpretation Comments Sodium Lvl (test code = Sodium Lvl) 144 135-145 N [facility] CenterFyteeipRHJEKNBIL1098-44-25 08:50:00 Test Item Value Reference Range Interpretation Comments Creatinine Lvl (test code = Creatinine 0.7 0.5-1.4 N Lvl) [facility] CenterPgmfofhLLKTMLHYK2185-23-96 08:50:00 Test Item Value Reference Range Interpretation Comments Calcium Lvl (test code = Calcium Lvl) 8.3 8.5-10.5 L [facility] CenterQhvtyviBSOHAKNWP7356-15-04 08:50:00 Test Item Value Reference Range Interpretation Comments Chloride Lvl (test code = Chloride Lvl) 108 95-109 N [facility] CenterMytzqldWFWLEGPBK4252-70-56 08:50:00 Test Item Value Reference Range Interpretation Comments B/C Ratio (test code = B/C Ratio) 14 6-25 N [facility] CenterSosufhaAKVAMIRRL1481-77-64 08:50:00 Test Item Value Reference Range Interpretation Comments Globulin (test code = Globulin) 2.3 2.0-4.0 N [facility] CenterLeihmseSDAKVQMXT5069-67-83 08:50:00 Test Item Value Reference Range Interpretation Comments AGAP (test code = AGAP) 15.7 10.0-20.0 N [facility] CenterFxphzlkSFENMDXNH0308-39-50 08:50:00 Test Item Value Reference Range Interpretation Comments A/G Ratio (test code = A/G Ratio) 1.4 0.7-1.6 N [facility] CenterDhdnmcwHWCZMHNMDL9792-37-37 08:50:00 Test Item Value Reference Range Interpretation Comments MCHC (test code = MCHC) 32.0 32.0-36.0 N [facility] CenterXyxydwsPBRGOOXDCH9138-88-00 08:50:00 Test Item Value Reference Range Interpretation Comments Platelet (test code = Platelet) 229 133-450 N [facility] CenterNolqjqpXYSBXAMMEE7563-62-11 08:50:00 Test Item Value Reference Range Interpretation Comments MPV (test code = MPV) 9.5 7.4-10.4 N [facility] CenterBnwdjqkQVZKNRAVDL0286-59-06 08:50:00 Test Item Value Reference Range Interpretation Comments RDW (test code = RDW) 16.3 11.5-14.5 H [facility] CenterUrnquhfRYFZDTOZIG6837-94-08 08:50:00 Test Item Value Reference Range Interpretation Comments WBC (test code = WBC) 9.8 3.7-10.4 N [facility] CenterWwnulmyARUKZPAXQG0869-93-76 08:50:00 Test Item Value Reference Range Interpretation Comments RBC (test code = RBC) 3.57 4.20-5.40 L [facility] CenterSrwpforBZVTIHWOSK0202-09-97 08:50:00 Test Item Value Reference Range Interpretation Comments MCH (test code = MCH) 26.6 pg 27.0-31.0 L [facility] CenterNqjjeliOCIDNKJMZU9914-47-69 08:50:00 Test Item Value Reference Range Interpretation Comments Hct (test code = Hct) 29.7 36.0-48.0 L [facility] CenterNfjzextCDMTGFKCHK0726-62-29 08:50:00 Test Item Value Reference Range Interpretation Comments MCV (test code = MCV) 83.1 81.0-99.0 N [facility] CenterVdzflxsNAPKSUNKYS0534-88-63 08:50:00 Test Item Value Reference Range Interpretation Comments Hgb (test code = Hgb) 9.5 12.0-16.0 L [facility] CenterXkukkjcCPTTMVIWSY6684-16-72 08:50:00 Test Item Value Reference Range Interpretation Comments Anisocyte (test code = 1+ *ABN*(12/12/2012 A Anisocyte) 02:50:00) [facility] CenterTftngqcQEZSHATQIW7574-74-50 08:50:00 Test Item Value Reference Range Interpretation Comments Monocytes # (test code 0.6 See_Comment N [Aut omated message] The = Monocytes #) system which generated this result tra nsmitted reference range : <=0.8. The reference r megan was not used to int erpret this result as normal/abnormal . [facility] CenterAkycujpYMLQXDBPCB2619-41-84 08:50:00 Test Item Value Reference Range Interpretation Comments Basophils # (test code 0.1 See_Comment N [Aut omated message] The = Basophils #) system which generated this result tra nsmitted reference range : <=0.2. The reference r megan was not used to int erpret this result as normal/abnormal . [facility] CenterMttwpfxXFWDQCBFKH8741-99-95 08:50:00 Test Item Value Reference Range Interpretation Comments Eosinophils # (test code 0.1 See_Comment N [A utomated message] The = Eosinophils #) system whic h generated this result tra nsmitted reference range : <=0.5. The reference r megan was not used to int erpret this result as normal/abnormal . [facility] CenterSysiuomAJKXDKIQRO9864-77-62 08:50:00 Test Item Value Reference Range Interpretation Comments Eosinophils (test code = 1.0 See_Comment N [A utomated message] The Eosinophils) system which ge nerated this result tra nsmitted reference range : <=4.0. The reference r megan was not used to int erpret this result as normal/abnormal . [facility] CenterQsalrkuBLVKBVUCPS3176-63-28 08:50:00 Test Item Value Reference Range Interpretation Comments Monocytes (test code = Monocytes) 6.2 2.0-12.0 N [facility] CenterDiasmknMTJELCDOMZ1616-34-57 08:50:00 Test Item Value Reference Range Interpretation Comments Basophils (test code = 0.6 See_Comment N [Aut omated message] The Basophils) system which ge nerated this result tra nsmitted reference range : <=1.0. The reference r megan was not used to int erpret this result as normal/abnormal . [facility] CenterTflsncrDLUELDESVN3414-05-62 08:50:00 Test Item Value Reference Range Interpretation Comments Lymphocytes # (test code = Lymphocytes 3.9 1.0-5.5 N #) [facility] CenterJctyxuoUDCEANCNPU0666-28-93 08:50:00 Test Item Value Reference Range Interpretation Comments Segs-Bands # (test code = Segs-Bands #) 5.1 1.5-8.1 N [facility] CenterOpjyrzpTUNLWOXGIR5073-51-45 08:50:00 Test Item Value Reference Range Interpretation Comments Segs (test code = Segs) 52.6 45.0-75.0 N [facility] CenterEhqnbssOPXZOVBCSR6523-98-92 08:50:00 Test Item Value Reference Range Interpretation Comments Lymphocytes (test code = Lymphocytes) 39.6 20.0-40.0 N [facility] CenterGaibtkgSFOLUPCPEZ6193-92-59 08:50:00 Test Item Value Reference Range Interpretation Comments Plt Morph (test code = Normal (12/12/2012 N Plt Morph) 02:50:00) [facility]HptctlzSPXDQVJSJ1885-75-47 08:50:00 Test Item Value Reference Range Interpretation Comments B/C Ratio (test code = B/C Ratio) 14 6-25 N [facility] CenterGpucvhhVRMAKYAEP5878-67-41 08:50:00 Test Item Value Reference Range Interpretation Comments Globulin (test code = Globulin) 2.3 2.0-4.0 N [facility] CenterAumhtchPEXXGURLI2834-48-26 08:50:00 Test Item Value Reference Range Interpretation Comments Bili Total (test code = Bili Total) 0.5 0.2-1.3 N [place] 269063-03-09 08:50:00 Test Item Value Reference Range Interpretation Comments AST (test code = AST) 23 See_Comment N [Auto mated message] The system which ge nerated this result transmit ashanti reference range : <=37. The reference range was not used to interpr et this result as carmen l/abnormal. [facility]EmqwhbnWWAWNKDBE4789-74-83 08:50:00 Test Item Value Reference Range Interpretation Comments Glucose Lvl (test code = Glucose Lvl) 79 70-99 N [facility] CenterKgbjungSAMUTAMLB3595-94-34 08:50:00 Test Item Value Reference Range Interpretation Comments Alk Phos (test code = Alk Phos) 50 39-136 N [facility] OcyvdmdNAEZYRQLU8505-40-46 08:50:00 Test Item Value Reference Range Interpretation Comments CO2 (test code = CO2) 24 24-32 N [facility] OimrqkoMYSPQLIPK0961-37-64 08:50:00 Test Item Value Reference Range Interpretation Comments BUN (test code = BUN) 10 7-22 N [facility] CenterEkukkcwYNSEZSDVV5260-36-24 08:50:00 Test Item Value Reference Range Interpretation Comments Total Protein (test code = Total 5.6 6.4-8.4 L Protein) [facility] CenterYgvqxblQUHOYWPBR2152-43-76 08:50:00 Test Item Value Reference Range Interpretation Comments ALT (test code = ALT) 30 See_Comment N [Auto mated message] The system which ge nerated this result transmit ashanti reference range : <=65. The reference range was not used to interpr et this result as carmen l/abnormal. [facility] NavqdfaIFUEDSUXE1769-98-76 08:50:00 Test Item Value Reference Range Interpretation Comments Albumin Lvl (test code = Albumin Lvl) 3.3 3.5-5.0 L [facility] MzgmjluPEAIGYYLZ4869-81-65 08:50:00 Test Item Value Reference Range Interpretation Comments eGFR (test code = eGFR) 115 [facility] CenterLosgqbcOPOQDVMIN5497-56-68 08:50:00 Test Item Value Reference Range Interpretation Comments Potassium Lvl (test code = Potassium 3.7 3.5-5.1 N Lvl) [facility] CenterJiwviiqSIFIOXDVR1466-52-95 08:50:00 Test Item Value Reference Range Interpretation Comments Sodium Lvl (test code = Sodium Lvl) 144 135-145 N [facility] CenterTdxxsvcCXHWDSYBA8173-01-81 08:50:00 Test Item Value Reference Range Interpretation Comments Creatinine Lvl (test code = Creatinine 0.7 0.5-1.4 N Lvl) [facility] CenterVhiqlkgXNRVSQWHN5226-19-84 08:50:00 Test Item Value Reference Range Interpretation Comments Calcium Lvl (test code = Calcium Lvl) 8.3 8.5-10.5 L [facility] CenterMjehvudYUISSOMZA2523-76-35 08:50:00 Test Item Value Reference Range Interpretation Comments Chloride Lvl (test code = Chloride Lvl) 108 95-109 N [facility] CenterDwxakeyVPRUZGXQT2597-54-28 08:50:00 Test Item Value Reference Range Interpretation Comments B/C Ratio (test code = B/C Ratio) 14 6-25 N [facility] CenterRrgljvfSRQGCWAVF8266-56-84 08:50:00 Test Item Value Reference Range Interpretation Comments Globulin (test code = Globulin) 2.3 2.0-4.0 N [facility] CenterIrvubsmFWFPUPDHQ5472-77-77 08:50:00 Test Item Value Reference Range Interpretation Comments AGAP (test code = AGAP) 15.7 10.0-20.0 N [facility] CenterOfokhnwGZGUUBSZL1466-80-82 08:50:00 Test Item Value Reference Range Interpretation Comments A/G Ratio (test code = A/G Ratio) 1.4 0.7-1.6 N [facility] CenterIkwchgbLIJTXNZYZA3992-01-62 08:50:00 Test Item Value Reference Range Interpretation Comments MCHC (test code = MCHC) 32.0 32.0-36.0 N [facility] CenterFaralyuIXSACAFMYM1018-83-90 08:50:00 Test Item Value Reference Range Interpretation Comments Platelet (test code = Platelet) 229 133-450 N [facility] CenterIejlnubEWGMUVGVJA1555-95-17 08:50:00 Test Item Value Reference Range Interpretation Comments MPV (test code = MPV) 9.5 7.4-10.4 N [facility] CenterCpyboowNLRQSLXYNO7698-57-78 08:50:00 Test Item Value Reference Range Interpretation Comments RDW (test code = RDW) 16.3 11.5-14.5 H [facility] CenterZfqdhvlWAQXBIMNGR5021-19-50 08:50:00 Test Item Value Reference Range Interpretation Comments WBC (test code = WBC) 9.8 3.7-10.4 N [facility] CenterMnhobizETMXGGDDTC7028-86-23 08:50:00 Test Item Value Reference Range Interpretation Comments RBC (test code = RBC) 3.57 4.20-5.40 L [facility] CenterMzznulcUDHQHXCOPA9005-99-52 08:50:00 Test Item Value Reference Range Interpretation Comments MCH (test code = MCH) 26.6 pg 27.0-31.0 L [facility] CenterTwtdbbxAIDYXTIQJC4914-90-17 08:50:00 Test Item Value Reference Range Interpretation Comments Hct (test code = Hct) 29.7 36.0-48.0 L [facility] CenterOntsxmqKLJMKXKUAJ9880-87-32 08:50:00 Test Item Value Reference Range Interpretation Comments MCV (test code = MCV) 83.1 81.0-99.0 N [facility] CenterDqnxoxaXEXEKYSZEQ4085-64-55 08:50:00 Test Item Value Reference Range Interpretation Comments Hgb (test code = Hgb) 9.5 12.0-16.0 L [facility] CenterKtqahxvVYJBXXBLIQ6390-44-30 08:50:00 Test Item Value Reference Range Interpretation Comments Anisocyte (test code = 1+ *ABN*(12/12/2012 A Anisocyte) 02:50:00) [facility] CenterYngwdujMZOJDYZVEZ3737-00-06 08:50:00 Test Item Value Reference Range Interpretation Comments Monocytes # (test code 0.6 See_Comment N [Aut omated message] The = Monocytes #) system which generated this result tra nsmitted reference range : <=0.8. The reference r megan was not used to int erpret this result as normal/abnormal . [facility] CenterCnsztbaFNRZTOMRBL0166-58-21 08:50:00 Test Item Value Reference Range Interpretation Comments Basophils # (test code 0.1 See_Comment N [Aut omated message] The = Basophils #) system which generated this result tra nsmitted reference range : <=0.2. The reference r megan was not used to int erpret this result as normal/abnormal . [facility] CenterEpjnzbtONCMZZYIRI1479-35-89 08:50:00 Test Item Value Reference Range Interpretation Comments Eosinophils # (test code 0.1 See_Comment N [A utomated message] The = Eosinophils #) system whic h generated this result tra nsmitted reference range : <=0.5. The reference r megan was not used to int erpret this result as normal/abnormal . [facility] CenterZuigsjuLGGXRIHNJE4727-00-30 08:50:00 Test Item Value Reference Range Interpretation Comments Eosinophils (test code = 1.0 See_Comment N [A utomated message] The Eosinophils) system which ge nerated this result tra nsmitted reference range : <=4.0. The reference r megan was not used to int erpret this result as normal/abnormal . [facility] CenterSvcvresKXAKKZQURI5089-20-53 08:50:00 Test Item Value Reference Range Interpretation Comments Monocytes (test code = Monocytes) 6.2 2.0-12.0 N [facility] CenterNnotvizFJKUPHMGCM5449-56-89 08:50:00 Test Item Value Reference Range Interpretation Comments Basophils (test code = 0.6 See_Comment N [Aut omated message] The Basophils) system which ge nerated this result tra nsmitted reference range : <=1.0. The reference r megan was not used to int erpret this result as normal/abnormal . [facility] CenterSmtqnrzIQEWGUJEKQ1287-17-26 08:50:00 Test Item Value Reference Range Interpretation Comments Lymphocytes # (test code = Lymphocytes 3.9 1.0-5.5 N #) [facility] CenterSyknciiGASOMDGTEG1444-99-10 08:50:00 Test Item Value Reference Range Interpretation Comments Segs-Bands # (test code = Segs-Bands #) 5.1 1.5-8.1 N [facility] CenterMxiwlqbVRBYHCDGZK4228-78-40 08:50:00 Test Item Value Reference Range Interpretation Comments Segs (test code = Segs) 52.6 45.0-75.0 N [facility] CenterEutwvykHXEDGUOPZN3561-16-78 08:50:00 Test Item Value Reference Range Interpretation Comments Lymphocytes (test code = Lymphocytes) 39.6 20.0-40.0 N [facility] CenterWvqkbnvPHXHPKGFVN3738-77-88 08:50:00 Test Item Value Reference Range Interpretation Comments Plt Morph (test code = Normal (12/12/2012 N Plt Morph) 02:50:00) [facility] CenterQyywgfzXISQMLFRK4302-18-48 08:50:00 Test Item Value Reference Range Interpretation Comments AGAP (test code = AGAP) 15.7 10.0-20.0 N [facility] CenterTbgygggWKARRNLVM7101-10-00 08:50:00 Test Item Value Reference Range Interpretation Comments Bili Total (test code = Bili Total) 0.5 0.2-1.3 N [facility] CenterMfgskmeGTUMHUTXK5662-85-88 08:50:00 Test Item Value Reference Range Interpretation Comments AST (test code = AST) 23 See_Comment N [Auto mated message] The system which ge nerated this result transmit ashanti reference range : <=37. The reference range was not used to interpr et this result as carmen l/abnormal. [facility] CenterHnmmmbgJSZEBMLZL9737-49-70 08:50:00 Test Item Value Reference Range Interpretation Comments Glucose Lvl (test code = Glucose Lvl) 79 70-99 N [facility] CenterAvwibvqJSNMQOVGB5302-16-74 08:50:00 Test Item Value Reference Range Interpretation Comments Alk Phos (test code = Alk Phos) 50 39-136 N [facility] CenterNrnuyzdQETYNPLLB5704-15-11 08:50:00 Test Item Value Reference Range Interpretation Comments CO2 (test code = CO2) 24 24-32 N [facility]EzypsdkXXGYMHMUW1051-34-84 08:50:00 Test Item Value Reference Range Interpretation Comments BUN (test code = BUN) 10 7-22 N [facility] CenterQzibembDKHRPTNKP5927-03-04 08:50:00 Test Item Value Reference Range Interpretation Comments Total Protein (test code = Total 5.6 6.4-8.4 L Protein) [facility] CenterDngazogKDATNCZQE1986-25-99 08:50:00 Test Item Value Reference Range Interpretation Comments ALT (test code = ALT) 30 See_Comment N [Auto mated message] The system which ge nerated this result transmit ashanti reference range : <=65. The reference range was not used to interpr et this result as carmen l/abnormal. [facility] CenterNgwlnhyTBXZCQCVA2617-53-88 08:50:00 Test Item Value Reference Range Interpretation Comments Albumin Lvl (test code = Albumin Lvl) 3.3 3.5-5.0 L [facility] CenterNkzmsnxFTBYTNDCZ4740-14-95 08:50:00 Test Item Value Reference Range Interpretation Comments eGFR (test code = eGFR) 115 [facility] CenterGxyslieSRZZIGHQX7661-84-48 08:50:00 Test Item Value Reference Range Interpretation Comments Potassium Lvl (test code = Potassium 3.7 3.5-5.1 N Lvl) [facility] CenterNvciloqUTCLTLRIO0821-09-20 08:50:00 Test Item Value Reference Range Interpretation Comments Sodium Lvl (test code = Sodium Lvl) 144 135-145 N [facility] CenterMkdxpwaITYDPTJRA9408-35-65 08:50:00 Test Item Value Reference Range Interpretation Comments A/G Ratio (test code = A/G Ratio) 1.4 0.7-1.6 N [facility] CenterSaykgcyYZXXYQCAY3845-54-58 08:50:00 Test Item Value Reference Range Interpretation Comments Creatinine Lvl (test code = Creatinine 0.7 0.5-1.4 N Lvl) [facility] CenterCbutplqVRYLTKVTD7583-48-79 08:50:00 Test Item Value Reference Range Interpretation Comments Calcium Lvl (test code = Calcium Lvl) 8.3 8.5-10.5 L [facility] CenterQzvcfwwYSWPCGLWP2405-67-86 08:50:00 Test Item Value Reference Range Interpretation Comments Chloride Lvl (test code = Chloride Lvl) 108 95-109 N [facility] CenterCtqenedSTAQLVKXO1484-63-50 08:50:00 Test Item Value Reference Range Interpretation Comments B/C Ratio (test code = B/C Ratio) 14 6-25 N [facility] CenterAfiavliZLSQRSPMH2948-39-14 08:50:00 Test Item Value Reference Range Interpretation Comments Globulin (test code = Globulin) 2.3 2.0-4.0 N [facility] CenterLpnwqveRPGCRYVVL3611-94-49 08:50:00 Test Item Value Reference Range Interpretation Comments AGAP (test code = AGAP) 15.7 10.0-20.0 N [facility] CenterUrrhtdqDVBNAGQIX9148-27-50 08:50:00 Test Item Value Reference Range Interpretation Comments A/G Ratio (test code = A/G Ratio) 1.4 0.7-1.6 N [facility] CenterTrjvoatHZPNLGPHGD8241-12-90 08:50:00 Test Item Value Reference Range Interpretation Comments MCHC (test code = MCHC) 32.0 32.0-36.0 N [facility] CenterPyacxxdZETAYGCMOF8248-20-05 08:50:00 Test Item Value Reference Range Interpretation Comments Platelet (test code = Platelet) 229 133-450 N [facility] CenterCucpekwTVCXUSFTIB8510-39-19 08:50:00 Test Item Value Reference Range Interpretation Comments MPV (test code = MPV) 9.5 7.4-10.4 N [facility] CenterRlldyukDHFFOLXYQV4586-32-48 08:50:00 Test Item Value Reference Range Interpretation Comments RDW (test code = RDW) 16.3 11.5-14.5 H [facility] CenterClfudzuUDHSVYUIGH5498-78-85 08:50:00 Test Item Value Reference Range Interpretation Comments WBC (test code = WBC) 9.8 3.7-10.4 N [facility] CenterWzudszgHXICOUTUIV2087-66-68 08:50:00 Test Item Value Reference Range Interpretation Comments RBC (test code = RBC) 3.57 4.20-5.40 L [facility] CenterQwafkofLGLNFVTLDC7935-38-36 08:50:00 Test Item Value Reference Range Interpretation Comments MCH (test code = MCH) 26.6 pg 27.0-31.0 L [facility] CenterDmxoxwiXFDSZGZEDS8651-71-00 08:50:00 Test Item Value Reference Range Interpretation Comments Hct (test code = Hct) 29.7 36.0-48.0 L [facility] CenterOecogrpVACHSOSOZC7660-41-39 08:50:00 Test Item Value Reference Range Interpretation Comments MCV (test code = MCV) 83.1 81.0-99.0 N [facility] CenterBgzwnyuBMQOWHDWJM1241-89-68 08:50:00 Test Item Value Reference Range Interpretation Comments Hgb (test code = Hgb) 9.5 12.0-16.0 L [facility] CenterKcsrzdvCGCMDCFZSE1241-91-67 08:50:00 Test Item Value Reference Range Interpretation Comments Anisocyte (test code = 1+ *ABN*(12/12/2012 A Anisocyte) 02:50:00) [facility] CenterEttpilxCNBOCUYJLT1302-57-49 08:50:00 Test Item Value Reference Range Interpretation Comments Monocytes # (test code 0.6 See_Comment N [Aut omated message] The = Monocytes #) system which generated this result tra nsmitted reference range : <=0.8. The reference r megan was not used to int erpret this result as normal/abnormal . [facility] CenterKrbuzyoRXGOUVXEFM1372-81-99 08:50:00 Test Item Value Reference Range Interpretation Comments Basophils # (test code 0.1 See_Comment N [Aut omated message] The = Basophils #) system which generated this result tra nsmitted reference range : <=0.2. The reference r megan was not used to int erpret this result as normal/abnormal . [facility] CenterJhjkbhmTCOTTBBMOW7644-37-66 08:50:00 Test Item Value Reference Range Interpretation Comments Eosinophils # (test code 0.1 See_Comment N [A utomated message] The = Eosinophils #) system whic h generated this result tra nsmitted reference range : <=0.5. The reference r megan was not used to int erpret this result as normal/abnormal . [facility] CenterCvcyevvXQOKXHDJRK0269-55-38 08:50:00 Test Item Value Reference Range Interpretation Comments Eosinophils (test code = 1.0 See_Comment N [A utomated message] The Eosinophils) system which ge nerated this result tra nsmitted reference range : <=4.0. The reference r megan was not used to int erpret this result as normal/abnormal . [facility] CenterWyfurnfEVPLXNTZNA4275-87-40 08:50:00 Test Item Value Reference Range Interpretation Comments Monocytes (test code = Monocytes) 6.2 2.0-12.0 N [facility] CenterLcpyiapCEYFXCVLYG0962-57-44 08:50:00 Test Item Value Reference Range Interpretation Comments Basophils (test code = 0.6 See_Comment N [Aut omated message] The Basophils) system which ge nerated this result tra nsmitted reference range : <=1.0. The reference r megan was not used to int erpret this result as normal/abnormal . [facility] CenterNkwonwuSNKMQMMWGA1023-25-02 08:50:00 Test Item Value Reference Range Interpretation Comments Lymphocytes # (test code = Lymphocytes 3.9 1.0-5.5 N #) [facility] CenterJcgdanpXRVZRGNOWY0013-67-41 08:50:00 Test Item Value Reference Range Interpretation Comments Segs-Bands # (test code = Segs-Bands #) 5.1 1.5-8.1 N [facility] CenterYxrzutcBGVYHSOYYA2583-34-45 08:50:00 Test Item Value Reference Range Interpretation Comments Segs (test code = Segs) 52.6 45.0-75.0 N [facility] CenterFlmxtdeVAHRTFWKBH1382-04-17 08:50:00 Test Item Value Reference Range Interpretation Comments Lymphocytes (test code = Lymphocytes) 39.6 20.0-40.0 N [facility] CenterXnzeeyjIAOJOKVICF8455-11-88 08:50:00 Test Item Value Reference Range Interpretation Comments Plt Morph (test code = Normal (12/12/2012 N Plt Morph) 02:50:00) [facility] CenterCrtjiohSAAQCCWEIT7211-94-22 08:50:00 Test Item Value Reference Range Interpretation Comments MCHC (test code = MCHC) 32.0 32.0-36.0 N [facility] CenterJlcmywpQDDKKNYRY0823-52-68 08:50:00 Test Item Value Reference Range Interpretation Comments Bili Total (test code = Bili Total) 0.5 0.2-1.3 N [facility] CenterWbvwzqgPQOHOTCGO6364-95-51 08:50:00 Test Item Value Reference Range Interpretation Comments AST (test code = AST) 23 See_Comment N [Auto mated message] The system which ge nerated this result transmit ashanti reference range : <=37. The reference range was not used to interpr et this result as carmen l/abnormal. [facility] CenterQrnkipyCILFJEBYP1610-94-52 08:50:00 Test Item Value Reference Range Interpretation Comments Glucose Lvl (test code = Glucose Lvl) 79 70-99 N [facility] CenterMxqjhchHMZMLDHOA8283-74-12 08:50:00 Test Item Value Reference Range Interpretation Comments Alk Phos (test code = Alk Phos) 50 39-136 N [facility] CenterRuedmiiBYPHLFMLS8614-13-69 08:50:00 Test Item Value Reference Range Interpretation Comments CO2 (test code = CO2) 24 24-32 N [facility] CenterWdbwsiqSVXNPNFSD0829-37-22 08:50:00 Test Item Value Reference Range Interpretation Comments BUN (test code = BUN) 10 7-22 N [facility] CenterWbsitjvKKRDFMNMP1115-88-90 08:50:00 Test Item Value Reference Range Interpretation Comments Total Protein (test code = Total 5.6 6.4-8.4 L Protein) [facility] CenterNglqesyJMGGAYPXX0364-73-99 08:50:00 Test Item Value Reference Range Interpretation Comments ALT (test code = ALT) 30 See_Comment N [Auto mated message] The system which ge nerated this result transmit ashanti reference range : <=65. The reference range was not used to interpr et this result as carmen l/abnormal. [facility] CenterArvailiMVBODWZVJ1149-85-37 08:50:00 Test Item Value Reference Range Interpretation Comments Albumin Lvl (test code = Albumin Lvl) 3.3 3.5-5.0 L [facility] CenterCfcunmgVTYJXROBW4674-14-48 08:50:00 Test Item Value Reference Range Interpretation Comments eGFR (test code = eGFR) 115 [facility] CenterPraxrevVKLAMMOAF3668-02-40 08:50:00 Test Item Value Reference Range Interpretation Comments Potassium Lvl (test code = Potassium 3.7 3.5-5.1 N Lvl) [facility] CenterGhzocwbZJKCMSBTH6347-19-73 08:50:00 Test Item Value Reference Range Interpretation Comments Sodium Lvl (test code = Sodium Lvl) 144 135-145 N [facility] CenterVjuirhhINUJULPYY4197-19-52 08:50:00 Test Item Value Reference Range Interpretation Comments Creatinine Lvl (test code = Creatinine 0.7 0.5-1.4 N Lvl) [facility] CenterDfpuhmbJLXDUWDIY1850-41-02 08:50:00 Test Item Value Reference Range Interpretation Comments Calcium Lvl (test code = Calcium Lvl) 8.3 8.5-10.5 L [facility] CenterVbkzcbkVBKSMOZUF8326-74-97 08:50:00 Test Item Value Reference Range Interpretation Comments Chloride Lvl (test code = Chloride Lvl) 108 95-109 N [facility] CenterXdcztyyYLWICMIXC1626-42-15 08:50:00 Test Item Value Reference Range Interpretation Comments B/C Ratio (test code = B/C Ratio) 14 6-25 N [facility] CenterTdxtqjdDFBBXABWA3179-37-65 08:50:00 Test Item Value Reference Range Interpretation Comments Globulin (test code = Globulin) 2.3 2.0-4.0 N [facility] CenterInnqkpyGNUABIULD1709-59-01 08:50:00 Test Item Value Reference Range Interpretation Comments AGAP (test code = AGAP) 15.7 10.0-20.0 N [facility] CenterPfziqouPOXHDCMQX6423-76-52 08:50:00 Test Item Value Reference Range Interpretation Comments A/G Ratio (test code = A/G Ratio) 1.4 0.7-1.6 N [facility] CenterOkgkogtSRHIWSOCHN6900-38-60 08:50:00 Test Item Value Reference Range Interpretation Comments MCHC (test code = MCHC) 32.0 32.0-36.0 N [facility] CenterNhhafxqARQSSSIFKU8395-69-01 08:50:00 Test Item Value Reference Range Interpretation Comments Platelet (test code = Platelet) 229 133-450 N [facility] CenterWtwzdsiPLJERPQQSK2700-58-83 08:50:00 Test Item Value Reference Range Interpretation Comments MPV (test code = MPV) 9.5 7.4-10.4 N [facility] CenterVjeyefyGGNTECHGNR8838-70-94 08:50:00 Test Item Value Reference Range Interpretation Comments RDW (test code = RDW) 16.3 11.5-14.5 H [facility] CenterKuqpbtwTRLOEXEWEA2266-37-35 08:50:00 Test Item Value Reference Range Interpretation Comments WBC (test code = WBC) 9.8 3.7-10.4 N [facility] CenterYokpookQQRPZMLYHO1008-89-77 08:50:00 Test Item Value Reference Range Interpretation Comments RBC (test code = RBC) 3.57 4.20-5.40 L [facility] CenterDtoxinrDBJLHWFHKD2192-16-42 08:50:00 Test Item Value Reference Range Interpretation Comments MCH (test code = MCH) 26.6 pg 27.0-31.0 L [facility] CenterLnfklawGJKBOMHRQF4295-14-47 08:50:00 Test Item Value Reference Range Interpretation Comments Hct (test code = Hct) 29.7 36.0-48.0 L [facility] CenterEjklmshFWKCLCUXPG6345-14-11 08:50:00 Test Item Value Reference Range Interpretation Comments MCV (test code = MCV) 83.1 81.0-99.0 N [facility] CenterObdsmduGAGGJSAUML0850-20-49 08:50:00 Test Item Value Reference Range Interpretation Comments Hgb (test code = Hgb) 9.5 12.0-16.0 L [facility] CenterDbhexnuTXUAXZVJVJ0271-05-31 08:50:00 Test Item Value Reference Range Interpretation Comments Anisocyte (test code = 1+ *ABN*(12/12/2012 A Anisocyte) 02:50:00) [facility] CenterZzqgcvlITEYKNLJKW6177-96-02 08:50:00 Test Item Value Reference Range Interpretation Comments Monocytes # (test code 0.6 See_Comment N [Aut omated message] The = Monocytes #) system which generated this result tra nsmitted reference range : <=0.8. The reference r megan was not used to int erpret this result as normal/abnormal . [facility] CenterEfnqlfdQGJVOPWHYP4703-38-21 08:50:00 Test Item Value Reference Range Interpretation Comments Basophils # (test code 0.1 See_Comment N [Aut omated message] The = Basophils #) system which generated this result tra nsmitted reference range : <=0.2. The reference r megan was not used to int erpret this result as normal/abnormal . [facility] CenterQfhciebTWNZACOEKX5378-89-36 08:50:00 Test Item Value Reference Range Interpretation Comments Eosinophils # (test code 0.1 See_Comment N [A utomated message] The = Eosinophils #) system whic h generated this result tra nsmitted reference range : <=0.5. The reference r megan was not used to int erpret this result as normal/abnormal . [facility]YvbwxgqPBRPFYURPT9035-84-28 08:50:00 Test Item Value Reference Range Interpretation Comments Eosinophils (test code = 1.0 See_Comment N [A utomated message] The Eosinophils) system which ge nerated this result tra nsmitted reference range : <=4.0. The reference r megan was not used to int erpret this result as normal/abnormal . [facility] CenterFbkuvypWCOCZLDCLN2870-15-94 08:50:00 Test Item Value Reference Range Interpretation Comments Monocytes (test code = Monocytes) 6.2 2.0-12.0 N [facility] CenterGokfqwrOOPRJXZSEW0259-01-66 08:50:00 Test Item Value Reference Range Interpretation Comments Basophils (test code = 0.6 See_Comment N [Aut omated message] The Basophils) system which ge nerated this result tra nsmitted reference range : <=1.0. The reference r mgean was not used to int erpret this result as normal/abnormal . [facility] CenterEyaqlgnFRIBSCLJHX4829-14-34 08:50:00 Test Item Value Reference Range Interpretation Comments Lymphocytes # (test code = Lymphocytes 3.9 1.0-5.5 N #) [facility] CenterQfsspzzELUGHDFQPZ3972-66-86 08:50:00 Test Item Value Reference Range Interpretation Comments Segs-Bands # (test code = Segs-Bands #) 5.1 1.5-8.1 N [facility] CenterUmszyafJUNOCLDMZY7801-72-80 08:50:00 Test Item Value Reference Range Interpretation Comments Segs (test code = Segs) 52.6 45.0-75.0 N [facility] CenterKmqjrvlTOAEPKWIHG1727-49-70 08:50:00 Test Item Value Reference Range Interpretation Comments Lymphocytes (test code = Lymphocytes) 39.6 20.0-40.0 N [facility] CenterQhujqopLWSIBOYTZE7132-44-53 08:50:00 Test Item Value Reference Range Interpretation Comments Platelet (test code = Platelet) 229 133-450 N [facility] CenterUtxodwxPNFZLVCMJY4739-60-90 08:50:00 Test Item Value Reference Range Interpretation Comments Plt Morph (test code = Normal (12/12/2012 N Plt Morph) 02:50:00) [facility] CenterHnhaxjiOAMLJICXEF0630-81-94 08:50:00 Test Item Value Reference Range Interpretation Comments MPV (test code = MPV) 9.5 7.4-10.4 N [facility] CenterVpfkuisHSXWUQSYW5372-93-89 08:50:00 Test Item Value Reference Range Interpretation Comments Bili Total (test code = Bili Total) 0.5 0.2-1.3 N [facility] CenterLcbuetbQFPVTIPKO4348-76-54 08:50:00 Test Item Value Reference Range Interpretation Comments AST (test code = AST) 23 See_Comment N [Auto mated message] The system which ge nerated this result transmit ashanti reference range : <=37. The reference range was not used to interpr et this result as carmen l/abnormal. [facility] CenterOplenuiRKJCKCOBS0148-20-08 08:50:00 Test Item Value Reference Range Interpretation Comments Bili Total (test code = Bili Total) 0.5 0.2-1.3 N [facility] CenterUfquxpnNZZHTAWOE5799-55-94 08:50:00 Test Item Value Reference Range Interpretation Comments AST (test code = AST) 23 See_Comment N [Auto mated message] The system which ge nerated this result transmit ashanti reference range : <=37. The reference range was not used to interpr et this result as carmen l/abnormal. [facility] CenterHbyktmpFLDBKBCZN7143-49-08 08:50:00 Test Item Value Reference Range Interpretation Comments Glucose Lvl (test code = Glucose Lvl) 79 70-99 N [facility] CenterEtbwnxkRQAFHKCBL1650-26-49 08:50:00 Test Item Value Reference Range Interpretation Comments Alk Phos (test code = Alk Phos) 50 39-136 N [facility] CenterKlianacMTSPLSCPS0136-59-43 08:50:00 Test Item Value Reference Range Interpretation Comments CO2 (test code = CO2) 24 24-32 N [facility] CenterNbumqfmFEHXZHDDT4171-10-94 08:50:00 Test Item Value Reference Range Interpretation Comments BUN (test code = BUN) 10 7-22 N [facility] CenterUgngpclISXIJSYPU1094-42-58 08:50:00 Test Item Value Reference Range Interpretation Comments Total Protein (test code = Total 5.6 6.4-8.4 L Protein) [facility] CenterTjukceqYFAKDUHUR7822-87-84 08:50:00 Test Item Value Reference Range Interpretation Comments ALT (test code = ALT) 30 See_Comment N [Auto mated message] The system which ge nerated this result transmit ashanti reference range : <=65. The reference range was not used to interpr et this result as carmen l/abnormal. [facility] CenterXmqbyqcOMXJJNAJG9488-57-40 08:50:00 Test Item Value Reference Range Interpretation Comments Glucose Lvl (test code = Glucose Lvl) 79 70-99 N [facility] CenterRbvqaqgMYGTHVZJP6769-28-11 08:50:00 Test Item Value Reference Range Interpretation Comments Albumin Lvl (test code = Albumin Lvl) 3.3 3.5-5.0 L [facility] CenterKldnrltNGVJLIEEW4290-55-23 08:50:00 Test Item Value Reference Range Interpretation Comments eGFR (test code = eGFR) 115 [facility] CenterBokggsiDIHXHENFA1083-21-44 08:50:00 Test Item Value Reference Range Interpretation Comments Potassium Lvl (test code = Potassium 3.7 3.5-5.1 N Lvl) [facility] CenterNbapjsrQOUKVPSPI1846-34-92 08:50:00 Test Item Value Reference Range Interpretation Comments Sodium Lvl (test code = Sodium Lvl) 144 135-145 N [facility] CenterOyvkhczBXJWNTASS1046-09-40 08:50:00 Test Item Value Reference Range Interpretation Comments Creatinine Lvl (test code = Creatinine 0.7 0.5-1.4 N Lvl) [facility] CenterBugulegUMREFRNTQ6378-68-78 08:50:00 Test Item Value Reference Range Interpretation Comments Calcium Lvl (test code = Calcium Lvl) 8.3 8.5-10.5 L [facility] CenterUkhzlttXMVCQPMMB8167-12-76 08:50:00 Test Item Value Reference Range Interpretation Comments Chloride Lvl (test code = Chloride Lvl) 108 95-109 N [facility] CenterPmttbdyJTLNGVQZA3678-51-88 08:50:00 Test Item Value Reference Range Interpretation Comments B/C Ratio (test code = B/C Ratio) 14 6-25 N [facility] CenterAjsolgvWCRDMZMGG7371-77-75 08:50:00 Test Item Value Reference Range Interpretation Comments Globulin (test code = Globulin) 2.3 2.0-4.0 N [facility] CenterZxnxnfdWBKFKBTCD4663-40-49 08:50:00 Test Item Value Reference Range Interpretation Comments AGAP (test code = AGAP) 15.7 10.0-20.0 N [facility] CenterIztyisrCJBVQAMSP4401-05-83 08:50:00 Test Item Value Reference Range Interpretation Comments Alk Phos (test code = Alk Phos) 50 39-136 N [facility] CenterEugekhzTTACJDMCV3814-89-37 08:50:00 Test Item Value Reference Range Interpretation Comments A/G Ratio (test code = A/G Ratio) 1.4 0.7-1.6 N [facility] CenterYrggahsBVFCDYKXRU3842-05-07 08:50:00 Test Item Value Reference Range Interpretation Comments MCHC (test code = MCHC) 32.0 32.0-36.0 N [facility] CenterRtxoubiZMJKLGTYWG4412-95-30 08:50:00 Test Item Value Reference Range Interpretation Comments Platelet (test code = Platelet) 229 133-450 N [facility] CenterCjxlnlsMPNIRKMTYG0983-95-84 08:50:00 Test Item Value Reference Range Interpretation Comments MPV (test code = MPV) 9.5 7.4-10.4 N [facility] CenterBebeuniNFWDZRMGUI6589-50-08 08:50:00 Test Item Value Reference Range Interpretation Comments RDW (test code = RDW) 16.3 11.5-14.5 H [facility] CenterAthuvekGKDXJADCFY7585-50-27 08:50:00 Test Item Value Reference Range Interpretation Comments WBC (test code = WBC) 9.8 3.7-10.4 N [facility] CenterDcefbccKRJVLKHTEG0434-01-58 08:50:00 Test Item Value Reference Range Interpretation Comments RBC (test code = RBC) 3.57 4.20-5.40 L [facility] CenterBtrjyfgONBCUVPIDK2783-00-11 08:50:00 Test Item Value Reference Range Interpretation Comments MCH (test code = MCH) 26.6 pg 27.0-31.0 L [facility] CenterEotiilwXCBMFLIXSG2221-74-01 08:50:00 Test Item Value Reference Range Interpretation Comments Hct (test code = Hct) 29.7 36.0-48.0 L [facility] CenterIbeoltfRERIQTGDYA8859-38-96 08:50:00 Test Item Value Reference Range Interpretation Comments MCV (test code = MCV) 83.1 81.0-99.0 N [facility] CenterZvzpekbJKOHQUUZG9454-12-40 08:50:00 Test Item Value Reference Range Interpretation Comments CO2 (test code = CO2) 24 24-32 N [facility] CenterIlukejqOMIBUVVQJY1194-46-48 08:50:00 Test Item Value Reference Range Interpretation Comments Hgb (test code = Hgb) 9.5 12.0-16.0 L [facility] CenterTyjvcbbXAIFAUMKRZ9734-78-42 08:50:00 Test Item Value Reference Range Interpretation Comments Anisocyte (test code = 1+ *ABN*(12/12/2012 A Anisocyte) 02:50:00) [facility] CenterBhftfhrSHKVEWMCRN2303-36-34 08:50:00 Test Item Value Reference Range Interpretation Comments Monocytes # (test code 0.6 See_Comment N [Aut omated message] The = Monocytes #) system which generated this result tra nsmitted reference range : <=0.8. The reference r megan was not used to int erpret this result as normal/abnormal . [facility] CenterHoyoerxXXXZXAATBC9730-00-95 08:50:00 Test Item Value Reference Range Interpretation Comments Basophils # (test code 0.1 See_Comment N [Aut omated message] The = Basophils #) system which generated this result tra nsmitted reference range : <=0.2. The reference r megan was not used to int erpret this result as normal/abnormal . [facility] CenterXlizrtpWMBSMPWPZJ7625-96-40 08:50:00 Test Item Value Reference Range Interpretation Comments Eosinophils # (test code 0.1 See_Comment N [A utomated message] The = Eosinophils #) system whic h generated this result tra nsmitted reference range : <=0.5. The reference r megan was not used to int erpret this result as normal/abnormal . [facility] CenterVhjlemhVLTYBNJXWR1721-48-34 08:50:00 Test Item Value Reference Range Interpretation Comments Eosinophils (test code = 1.0 See_Comment N [A utomated message] The Eosinophils) system which ge nerated this result tra nsmitted reference range : <=4.0. The reference r megan was not used to int erpret this result as normal/abnormal . [facility] CenterTmtvsipUNJYVETOMG0863-05-39 08:50:00 Test Item Value Reference Range Interpretation Comments Monocytes (test code = Monocytes) 6.2 2.0-12.0 N [facility] CenterAnzlmfmSSAGZUHUFK1242-98-80 08:50:00 Test Item Value Reference Range Interpretation Comments Basophils (test code = 0.6 See_Comment N [Aut omated message] The Basophils) system which ge nerated this result tra nsmitted reference range : <=1.0. The reference r megan was not used to int erpret this result as normal/abnormal . [facility] CenterXmnxnhqLTUQXUAFDZ9709-91-54 08:50:00 Test Item Value Reference Range Interpretation Comments Lymphocytes # (test code = Lymphocytes 3.9 1.0-5.5 N #) [facility] CenterFiudrkiBBGMSTRUMD5759-27-83 08:50:00 Test Item Value Reference Range Interpretation Comments Segs-Bands # (test code = Segs-Bands #) 5.1 1.5-8.1 N [facility] CenterWzlscvxLTFHNOXLS6756-79-43 08:50:00 Test Item Value Reference Range Interpretation Comments BUN (test code = BUN) 10 7-22 N [facility] CenterDuoupauMNPSOSPGZF8951-06-96 08:50:00 Test Item Value Reference Range Interpretation Comments Segs (test code = Segs) 52.6 45.0-75.0 N [facility] CenterRmqjrecZQFNXRMXDS5208-91-22 08:50:00 Test Item Value Reference Range Interpretation Comments Lymphocytes (test code = Lymphocytes) 39.6 20.0-40.0 N [facility] CenterSmppwjxOULVVIZQCG6399-29-22 08:50:00 Test Item Value Reference Range Interpretation Comments Plt Morph (test code = Normal (12/12/2012 N Plt Morph) 02:50:00) [facility] CenterUiibddoUYFESSSQD1130-98-44 08:50:00 Test Item Value Reference Range Interpretation Comments Total Protein (test code = Total 5.6 6.4-8.4 L Protein) [facility] CenterZdhknwoJHAAOISES0240-19-70 08:50:00 Test Item Value Reference Range Interpretation Comments ALT (test code = ALT) 30 See_Comment N [Auto mated message] The system which ge nerated this result transmit ashanti reference range : <=65. The reference range was not used to interpr et this result as carmen l/abnormal. [facility] CenterXspkhmyPCKODGACQV4441-61-87 08:50:00 Test Item Value Reference Range Interpretation Comments RDW (test code = RDW) 16.3 11.5-14.5 H [facility] CenterXkljdvcNDEUNXTDI4117-29-16 08:50:00 Test Item Value Reference Range Interpretation Comments Albumin Lvl (test code = Albumin Lvl) 3.3 3.5-5.0 L [facility] CenterEnruekyMQCORDVPW5343-47-64 08:50:00 Test Item Value Reference Range Interpretation Comments eGFR (test code = eGFR) 115 [facility] CenterPsxuztaRHVJOICDC3889-15-27 08:50:00 Test Item Value Reference Range Interpretation Comments Potassium Lvl (test code = Potassium 3.7 3.5-5.1 N Lvl) [facility] CenterJpwlednAYKYHUDMH0366-21-90 08:50:00 Test Item Value Reference Range Interpretation Comments Sodium Lvl (test code = Sodium Lvl) 144 135-145 N [facility] CenterAaksmzwDAROBHVQT4846-93-67 08:50:00 Test Item Value Reference Range Interpretation Comments Creatinine Lvl (test code = Creatinine 0.7 0.5-1.4 N Lvl) [facility] CenterBlcozsmIGJPFYUSZ3209-85-02 08:50:00 Test Item Value Reference Range Interpretation Comments Calcium Lvl (test code = Calcium Lvl) 8.3 8.5-10.5 L [facility] CenterHozlkwzWAJQJWPKX4387-64-13 08:50:00 Test Item Value Reference Range Interpretation Comments Chloride Lvl (test code = Chloride Lvl) 108 95-109 N [facility] CenterLaycqgkFCYVWQORU8829-44-40 08:50:00 Test Item Value Reference Range Interpretation Comments B/C Ratio (test code = B/C Ratio) 14 6-25 N [facility] CenterEfhawkrFIOKWORMX7353-39-17 08:50:00 Test Item Value Reference Range Interpretation Comments Globulin (test code = Globulin) 2.3 2.0-4.0 N [facility] CenterBwfccbnDKWKRMREU5567-80-35 08:50:00 Test Item Value Reference Range Interpretation Comments AGAP (test code = AGAP) 15.7 10.0-20.0 N [facility] CenterLkuwtzcDCJPNRHFNF6449-63-79 08:50:00 Test Item Value Reference Range Interpretation Comments WBC (test code = WBC) 9.8 3.7-10.4 N [facility] CenterJdkecbpMPTQHOHDU7884-72-64 08:50:00 Test Item Value Reference Range Interpretation Comments A/G Ratio (test code = A/G Ratio) 1.4 0.7-1.6 N [facility] CenterNhmpjmaULAZILYZA2186-48-64 08:50:00 Test Item Value Reference Range Interpretation Comments Bili Total (test code = Bili Total) 0.5 0.2-1.3 N [facility] CenterXyatfdsFQMBEOVDZ5414-01-88 08:50:00 Test Item Value Reference Range Interpretation Comments AST (test code = AST) 23 See_Comment N [Auto mated message] The system which ge nerated this result transmit ashanti reference range : <=37. The reference range was not used to interpr et this result as carmen l/abnormal. [facility] CenterWbyoxbmUKNUTUQCO1595-90-56 08:50:00 Test Item Value Reference Range Interpretation Comments Glucose Lvl (test code = Glucose Lvl) 79 70-99 N [facility] CenterLlxpiipKIWLYWSWL8310-77-70 08:50:00 Test Item Value Reference Range Interpretation Comments Alk Phos (test code = Alk Phos) 50 39-136 N [facility] CenterZtzkhxfDTVKGVRKQ4684-51-06 08:50:00 Test Item Value Reference Range Interpretation Comments CO2 (test code = CO2) 24 24-32 N [facility] CenterDgzyydbOWFPNLSZU3047-45-52 08:50:00 Test Item Value Reference Range Interpretation Comments BUN (test code = BUN) 10 7-22 N [facility]RlmgevoYDGIZCTTBW0509-18-53 08:50:00 Test Item Value Reference Range Interpretation Comments MCHC (test code = MCHC) 32.0 32.0-36.0 N [facility] CenterArizkyoDYFAKZZKN5075-96-02 08:50:00 Test Item Value Reference Range Interpretation Comments Total Protein (test code = Total 5.6 6.4-8.4 L Protein) [facility] CenterGayhwfuFBXERUTVM5479-27-68 08:50:00 Test Item Value Reference Range Interpretation Comments ALT (test code = ALT) 30 See_Comment N [Auto mated message] The system which ge nerated this result transmit ashanti reference range : <=65. The reference range was not used to interpr et this result as carmen l/abnormal. [facility] CenterNofltdwURPZTLZRV4410-72-14 08:50:00 Test Item Value Reference Range Interpretation Comments Albumin Lvl (test code = Albumin Lvl) 3.3 3.5-5.0 L [facility] CenterEwzccnjZDKUKOAHE2149-49-65 08:50:00 Test Item Value Reference Range Interpretation Comments eGFR (test code = eGFR) 115 [facility] CenterOyapktqQUCMCZAXE5354-11-85 08:50:00 Test Item Value Reference Range Interpretation Comments Potassium Lvl (test code = Potassium 3.7 3.5-5.1 N Lvl) [facility] CenterMzswbbkLEZPDRPLB9359-05-10 08:50:00 Test Item Value Reference Range Interpretation Comments Sodium Lvl (test code = Sodium Lvl) 144 135-145 N [facility] CenterCdvojifIWPLXIBQK8197-10-47 08:50:00 Test Item Value Reference Range Interpretation Comments Creatinine Lvl (test code = Creatinine 0.7 0.5-1.4 N Lvl) [facility] CenterHnrihioQBTVMTNWC0090-03-73 08:50:00 Test Item Value Reference Range Interpretation Comments Calcium Lvl (test code = Calcium Lvl) 8.3 8.5-10.5 L [facility] CenterDodifpyMZXKPUPGC7096-58-11 08:50:00 Test Item Value Reference Range Interpretation Comments Chloride Lvl (test code = Chloride Lvl) 108 95-109 N [facility] CenterDlyyhrtLNPUHPYLL2847-54-62 08:50:00 Test Item Value Reference Range Interpretation Comments B/C Ratio (test code = B/C Ratio) 14 6-25 N [facility] CenterIfhmvksFZEWETREDZ3126-03-11 08:50:00 Test Item Value Reference Range Interpretation Comments Platelet (test code = Platelet) 229 133-450 N [facility] CenterPywislkLMVQIWOSO1326-73-67 08:50:00 Test Item Value Reference Range Interpretation Comments Globulin (test code = Globulin) 2.3 2.0-4.0 N [facility] CenterCvgzchhGNFWQNWFF9983-21-00 08:50:00 Test Item Value Reference Range Interpretation Comments AGAP (test code = AGAP) 15.7 10.0-20.0 N [facility] CenterCindemjOQVZSLVWI2194-72-69 08:50:00 Test Item Value Reference Range Interpretation Comments A/G Ratio (test code = A/G Ratio) 1.4 0.7-1.6 N [facility] CenterQhomhqvOJOJAUDEMZ1865-86-93 08:50:00 Test Item Value Reference Range Interpretation Comments MCHC (test code = MCHC) 32.0 32.0-36.0 N [facility] CenterQoveqplGOVVZEQCDK2947-52-81 08:50:00 Test Item Value Reference Range Interpretation Comments Platelet (test code = Platelet) 229 133-450 N [facility] CenterSuuyztvZAUOLVPTIL6433-52-37 08:50:00 Test Item Value Reference Range Interpretation Comments MPV (test code = MPV) 9.5 7.4-10.4 N [facility] CenterXppigqvRZGQYUMLUK5528-26-85 08:50:00 Test Item Value Reference Range Interpretation Comments RDW (test code = RDW) 16.3 11.5-14.5 H [facility] CenterRhslgmxXKNOJYCNEG2803-23-08 08:50:00 Test Item Value Reference Range Interpretation Comments WBC (test code = WBC) 9.8 3.7-10.4 N [facility] CenterIgrbalxEKTSELIGGP1540-64-60 08:50:00 Test Item Value Reference Range Interpretation Comments RBC (test code = RBC) 3.57 4.20-5.40 L [facility] CenterKtskehtJHWSPBLQQX5129-14-26 08:50:00 Test Item Value Reference Range Interpretation Comments MCH (test code = MCH) 26.6 pg 27.0-31.0 L [facility] CenterKvhgjdsTFGANUTOPE1681-79-22 08:50:00 Test Item Value Reference Range Interpretation Comments MPV (test code = MPV) 9.5 7.4-10.4 N [facility] CenterJwniarlDJEBKSXJMO8694-87-86 08:50:00 Test Item Value Reference Range Interpretation Comments Hct (test code = Hct) 29.7 36.0-48.0 L [facility] CenterMnrrfpmUPFIDBOXCR6354-39-05 08:50:00 Test Item Value Reference Range Interpretation Comments MCV (test code = MCV) 83.1 81.0-99.0 N [facility] CenterDbrcyikUKVAIKMIPL4820-48-13 08:50:00 Test Item Value Reference Range Interpretation Comments Hgb (test code = Hgb) 9.5 12.0-16.0 L [facility] CenterVrlfbfoEUXCESDLAM3088-83-27 08:50:00 Test Item Value Reference Range Interpretation Comments Anisocyte (test code = 1+ *ABN*(12/12/2012 A Anisocyte) 02:50:00) [facility] CenterDcnxulpXQUUFLMLGD1897-47-96 08:50:00 Test Item Value Reference Range Interpretation Comments Monocytes # (test code 0.6 See_Comment N [Aut omated message] The = Monocytes #) system which generated this result tra nsmitted reference range : <=0.8. The reference r megan was not used to int erpret this result as normal/abnormal . [facility] CenterDapfxbyRKWMJCWJOV8703-15-29 08:50:00 Test Item Value Reference Range Interpretation Comments Basophils # (test code 0.1 See_Comment N [Aut omated message] The = Basophils #) system which generated this result tra nsmitted reference range : <=0.2. The reference r megan was not used to int erpret this result as normal/abnormal . [facility] CenterGaliooxIMODDONSIB1417-15-76 08:50:00 Test Item Value Reference Range Interpretation Comments Eosinophils # (test code 0.1 See_Comment N [A utomated message] The = Eosinophils #) system whic h generated this result tra nsmitted reference range : <=0.5. The reference r megan was not used to int erpret this result as normal/abnormal . [facility] CenterSvdnstjMIIJKVPIQQ5388-00-86 08:50:00 Test Item Value Reference Range Interpretation Comments Eosinophils (test code = 1.0 See_Comment N [A utomated message] The Eosinophils) system which ge nerated this result tra nsmitted reference range : <=4.0. The reference r megan was not used to int erpret this result as normal/abnormal . [facility] CenterGdfycpkXVHWKZPLVW1846-00-62 08:50:00 Test Item Value Reference Range Interpretation Comments Monocytes (test code = Monocytes) 6.2 2.0-12.0 N [facility] CenterGewqriqSIRFNDVOFZ0831-37-38 08:50:00 Test Item Value Reference Range Interpretation Comments Basophils (test code = 0.6 See_Comment N [Aut omated message] The Basophils) system which ge nerated this result tra nsmitted reference range : <=1.0. The reference r megan was not used to int erpret this result as normal/abnormal . [facility] CenterYddboloISCVBAIUUE0555-99-43 08:50:00 Test Item Value Reference Range Interpretation Comments RDW (test code = RDW) 16.3 11.5-14.5 H [facility] CenterCnmvntcPZUBIJGMRJ5988-60-08 08:50:00 Test Item Value Reference Range Interpretation Comments Lymphocytes # (test code = Lymphocytes 3.9 1.0-5.5 N #) [facility] CenterBumrcjnUOGPAFYMQG6617-84-83 08:50:00 Test Item Value Reference Range Interpretation Comments Segs-Bands # (test code = Segs-Bands #) 5.1 1.5-8.1 N [facility] CenterSmfckyzLFHXBHXMUS6521-31-05 08:50:00 Test Item Value Reference Range Interpretation Comments Segs (test code = Segs) 52.6 45.0-75.0 N [facility] CenterIhvgtatSRMVGHSWRJ2308-12-07 08:50:00 Test Item Value Reference Range Interpretation Comments Lymphocytes (test code = Lymphocytes) 39.6 20.0-40.0 N [facility] CenterYtqdcbeHRDLVYUESA1720-09-59 08:50:00 Test Item Value Reference Range Interpretation Comments Plt Morph (test code = Normal (12/12/2012 N Plt Morph) 02:50:00) [facility] CenterGmmkanaZPTYQVNRUW9012-68-14 08:50:00 Test Item Value Reference Range Interpretation Comments WBC (test code = WBC) 9.8 3.7-10.4 N [facility] CenterYmczwaeONUZRZKGIS8348-81-72 08:50:00 Test Item Value Reference Range Interpretation Comments RBC (test code = RBC) 3.57 4.20-5.40 L [facility] CenterYfvpnsmAATLHHOUJP4369-25-40 08:50:00 Test Item Value Reference Range Interpretation Comments MCH (test code = MCH) 26.6 pg 27.0-31.0 L [facility] CenterCqmzyjeHLXSGHPFWP9215-02-57 08:50:00 Test Item Value Reference Range Interpretation Comments Hct (test code = Hct) 29.7 36.0-48.0 L [facility] CenterFkbazlwKGOOXGHKDX7916-14-96 08:50:00 Test Item Value Reference Range Interpretation Comments MCV (test code = MCV) 83.1 81.0-99.0 N [facility] CenterUaceupbNFEKMCXHWH0648-87-33 08:50:00 Test Item Value Reference Range Interpretation Comments RBC (test code = RBC) 3.57 4.20-5.40 L [facility] CenterWdsicizTALRYMDYOW8033-12-27 08:50:00 Test Item Value Reference Range Interpretation Comments Hgb (test code = Hgb) 9.5 12.0-16.0 L [facility] CenterUttavhdUGDPQXDRIA3712-77-51 08:50:00 Test Item Value Reference Range Interpretation Comments Anisocyte (test code = 1+ *ABN*(12/12/2012 A Anisocyte) 02:50:00) [facility] CenterFicdyglHDXZWVKPQB2462-54-79 08:50:00 Test Item Value Reference Range Interpretation Comments Monocytes # (test code 0.6 See_Comment N [Aut omated message] The = Monocytes #) system which generated this result tra nsmitted reference range : <=0.8. The reference r megan was not used to int erpret this result as normal/abnormal . [facility]CtyngikNUUYZHDOMB7081-35-10 08:50:00 Test Item Value Reference Range Interpretation Comments Basophils # (test code 0.1 See_Comment N [Aut omated message] The = Basophils #) system which generated this result tra nsmitted reference range : <=0.2. The reference r megan was not used to int erpret this result as normal/abnormal . [facility] CenterPbvxpvrNQDRYDNZKS8042-09-90 08:50:00 Test Item Value Reference Range Interpretation Comments Eosinophils # (test code 0.1 See_Comment N [A utomated message] The = Eosinophils #) system whic h generated this result tra nsmitted reference range : <=0.5. The reference r megan was not used to int erpret this result as normal/abnormal . [facility] CenterMjuquruRNIZOQHTQW5903-70-83 08:50:00 Test Item Value Reference Range Interpretation Comments Eosinophils (test code = 1.0 See_Comment N [A utomated message] The Eosinophils) system which ge nerated this result tra nsmitted reference range : <=4.0. The reference r megan was not used to int erpret this result as normal/abnormal . [facility] CenterNcixtutHFUINSVQLL6652-12-29 08:50:00 Test Item Value Reference Range Interpretation Comments Monocytes (test code = Monocytes) 6.2 2.0-12.0 N [facility] CenterQogtxsuWKHXDJMHRK1286-23-05 08:50:00 Test Item Value Reference Range Interpretation Comments Basophils (test code = 0.6 See_Comment N [Aut omated message] The Basophils) system which ge nerated this result tra nsmitted reference range : <=1.0. The reference r megan was not used to int erpret this result as normal/abnormal . [facility] CenterSzhgqcwKBMPAXUKE5258-32-08 08:50:00 Test Item Value Reference Range Interpretation Comments Bili Total (test code = Bili Total) 0.5 0.2-1.3 N [facility] CenterQrlwopdBVBGNADWA5540-63-03 08:50:00 Test Item Value Reference Range Interpretation Comments AST (test code = AST) 23 See_Comment N [Auto mated message] The system which ge nerated this result transmit ashanti reference range : <=37. The reference range was not used to interpr et this result as carmen l/abnormal. [facility] CenterXdleyxcIZJJSQUSM2013-81-81 08:50:00 Test Item Value Reference Range Interpretation Comments Glucose Lvl (test code = Glucose Lvl) 79 70-99 N [facility] CenterPgmateyHDLSKAPZE4796-85-75 08:50:00 Test Item Value Reference Range Interpretation Comments Alk Phos (test code = Alk Phos) 50 39-136 N [facility] CenterXhxqgkkDNKUJLHISQ0030-13-91 08:50:00 Test Item Value Reference Range Interpretation Comments Lymphocytes # (test code = Lymphocytes 3.9 1.0-5.5 N #) [facility] CenterBvzoyotZPSKKRPHT8237-74-26 08:50:00 Test Item Value Reference Range Interpretation Comments CO2 (test code = CO2) 24 24-32 N [facility] CenterFixsmkjBUIWBEGLN3237-48-13 08:50:00 Test Item Value Reference Range Interpretation Comments BUN (test code = BUN) 10 7-22 N [facility] CenterHwghvloGWVTIVOIL7488-83-32 08:50:00 Test Item Value Reference Range Interpretation Comments Total Protein (test code = Total 5.6 6.4-8.4 L Protein) [facility] CenterJfebhumTNJTSONKS7592-04-10 08:50:00 Test Item Value Reference Range Interpretation Comments ALT (test code = ALT) 30 See_Comment N [Auto mated message] The system which ge nerated this result transmit ashanti reference range : <=65. The reference range was not used to interpr et this result as carmen l/abnormal. [facility] CenterHwzwetrRTZLZXZAC7775-67-42 08:50:00 Test Item Value Reference Range Interpretation Comments Albumin Lvl (test code = Albumin Lvl) 3.3 3.5-5.0 L [facility] CenterIqdijomOWHVYQHQL7524-74-74 08:50:00 Test Item Value Reference Range Interpretation Comments eGFR (test code = eGFR) 115 [facility] CenterJqjgmthQUPIUSAID7317-25-50 08:50:00 Test Item Value Reference Range Interpretation Comments Potassium Lvl (test code = Potassium 3.7 3.5-5.1 N Lvl) [facility] CenterUylfvsfHKHVUGJCG1106-80-30 08:50:00 Test Item Value Reference Range Interpretation Comments Sodium Lvl (test code = Sodium Lvl) 144 135-145 N [facility] CenterRstluphDGOLVOQVK1845-68-85 08:50:00 Test Item Value Reference Range Interpretation Comments Creatinine Lvl (test code = Creatinine 0.7 0.5-1.4 N Lvl) [facility] CenterOgcltckPSJRTLCVO3478-49-72 08:50:00 Test Item Value Reference Range Interpretation Comments Calcium Lvl (test code = Calcium Lvl) 8.3 8.5-10.5 L [facility] CenterTjnjoqjLKWAREUWME0095-00-37 08:50:00 Test Item Value Reference Range Interpretation Comments Segs-Bands # (test code = Segs-Bands #) 5.1 1.5-8.1 N [facility] CenterYcozlmcCPJYVQSWC4071-86-26 08:50:00 Test Item Value Reference Range Interpretation Comments Chloride Lvl (test code = Chloride Lvl) 108 95-109 N [facility] CenterKtddyhyFSFPMJPEJ2334-20-75 08:50:00 Test Item Value Reference Range Interpretation Comments B/C Ratio (test code = B/C Ratio) 14 6-25 N [facility] CenterAskscfvLWGLURGUV5585-45-62 08:50:00 Test Item Value Reference Range Interpretation Comments Globulin (test code = Globulin) 2.3 2.0-4.0 N [facility] CenterSbjiwhrWZIXLBZCN7445-46-85 08:50:00 Test Item Value Reference Range Interpretation Comments AGAP (test code = AGAP) 15.7 10.0-20.0 N [facility] CenterQczyjrqCFVJCBEYO4983-57-14 08:50:00 Test Item Value Reference Range Interpretation Comments A/G Ratio (test code = A/G Ratio) 1.4 0.7-1.6 N [facility] CenterAnjyfoqNNKFZNLDYP0791-96-98 08:50:00 Test Item Value Reference Range Interpretation Comments MCHC (test code = MCHC) 32.0 32.0-36.0 N [facility] CenterPaltbagKENKGYRLRI7678-47-08 08:50:00 Test Item Value Reference Range Interpretation Comments Platelet (test code = Platelet) 229 133-450 N [facility] CenterXwvdyzlXDFZCAPLCR8457-36-05 08:50:00 Test Item Value Reference Range Interpretation Comments MPV (test code = MPV) 9.5 7.4-10.4 N [facility] CenterYvzaaveCFJLKCVVRO7108-62-26 08:50:00 Test Item Value Reference Range Interpretation Comments RDW (test code = RDW) 16.3 11.5-14.5 H [facility] CenterStvvtctXHYFFTWXLL9166-48-55 08:50:00 Test Item Value Reference Range Interpretation Comments WBC (test code = WBC) 9.8 3.7-10.4 N [facility] CenterMqsbwnmVUVXWXNJFD3425-86-89 08:50:00 Test Item Value Reference Range Interpretation Comments MCH (test code = MCH) 26.6 pg 27.0-31.0 L [facility] CenterEeihdjjFCKIQRNMLR4578-28-48 08:50:00 Test Item Value Reference Range Interpretation Comments Segs (test code = Segs) 52.6 45.0-75.0 N [facility] CenterDjctzayWDFTDDNSMC1459-86-24 08:50:00 Test Item Value Reference Range Interpretation Comments RBC (test code = RBC) 3.57 4.20-5.40 L [facility] CenterXgcxmyzMDKFNWFGAL8502-05-98 08:50:00 Test Item Value Reference Range Interpretation Comments MCH (test code = MCH) 26.6 pg 27.0-31.0 L [facility] CenterUfzlxmlHUPRRQBZFN6329-86-72 08:50:00 Test Item Value Reference Range Interpretation Comments Hct (test code = Hct) 29.7 36.0-48.0 L [facility] CenterQlngoshJEYPWRHGNU0488-58-43 08:50:00 Test Item Value Reference Range Interpretation Comments MCV (test code = MCV) 83.1 81.0-99.0 N [facility] CenterWxoncvvADSVZTHXRY7254-71-43 08:50:00 Test Item Value Reference Range Interpretation Comments Hgb (test code = Hgb) 9.5 12.0-16.0 L [facility] CenterSvclzznCODZYSVFZF9557-99-98 08:50:00 Test Item Value Reference Range Interpretation Comments Anisocyte (test code = 1+ *ABN*(12/12/2012 A Anisocyte) 02:50:00) [facility] CenterOaxekomLBXSIDWDVI7556-84-88 08:50:00 Test Item Value Reference Range Interpretation Comments Monocytes # (test code 0.6 See_Comment N [Aut omated message] The = Monocytes #) system which generated this result tra nsmitted reference range : <=0.8. The reference r megan was not used to int erpret this result as normal/abnormal . [facility] CenterVnzmqpkYTAZYNXJGS3008-03-35 08:50:00 Test Item Value Reference Range Interpretation Comments Basophils # (test code 0.1 See_Comment N [Aut omated message] The = Basophils #) system which generated this result tra nsmitted reference range : <=0.2. The reference r megan was not used to int erpret this result as normal/abnormal . [facility] CenterLlrmexmFJYRTYYDWO5690-40-42 08:50:00 Test Item Value Reference Range Interpretation Comments Eosinophils # (test code 0.1 See_Comment N [A utomated message] The = Eosinophils #) system whic h generated this result tra nsmitted reference range : <=0.5. The reference r megan was not used to int erpret this result as normal/abnormal . [facility] CenterJxexiurCYJJLTSQGJ3655-67-61 08:50:00 Test Item Value Reference Range Interpretation Comments Eosinophils (test code = 1.0 See_Comment N [A utomated message] The Eosinophils) system which ge nerated this result tra nsmitted reference range : <=4.0. The reference r megan was not used to int erpret this result as normal/abnormal . [facility] CenterVgpggrhBGHNAMAZHB6665-47-46 08:50:00 Test Item Value Reference Range Interpretation Comments Lymphocytes (test code = Lymphocytes) 39.6 20.0-40.0 N [facility] CenterQuhpdahXLUMPDXDVH0410-46-86 08:50:00 Test Item Value Reference Range Interpretation Comments Monocytes (test code = Monocytes) 6.2 2.0-12.0 N [facility] CenterXhbynisRQTAVNFLFE3979-93-52 08:50:00 Test Item Value Reference Range Interpretation Comments Basophils (test code = 0.6 See_Comment N [Aut omated message] The Basophils) system which ge nerated this result tra nsmitted reference range : <=1.0. The reference r megan was not used to int erpret this result as normal/abnormal . [facility] CenterYyaziurZPIFIOQGQQ2462-52-77 08:50:00 Test Item Value Reference Range Interpretation Comments Lymphocytes # (test code = Lymphocytes 3.9 1.0-5.5 N #) [facility] CenterTuyhlrmJQWVAYSJFK3140-48-21 08:50:00 Test Item Value Reference Range Interpretation Comments Segs-Bands # (test code = Segs-Bands #) 5.1 1.5-8.1 N [facility] CenterXblhsrcYYHVYYJEMO1358-41-92 08:50:00 Test Item Value Reference Range Interpretation Comments Segs (test code = Segs) 52.6 45.0-75.0 N [facility] CenterEgftsqzTSRTIJVGQU5110-13-13 08:50:00 Test Item Value Reference Range Interpretation Comments Lymphocytes (test code = Lymphocytes) 39.6 20.0-40.0 N [facility] CenterSgglwzqTTKMFAPCFG7013-13-00 08:50:00 Test Item Value Reference Range Interpretation Comments Plt Morph (test code = Normal (12/12/2012 N Plt Morph) 02:50:00) [facility] CenterFkganlzDQNKGFJPUJ0172-47-28 08:50:00 Test Item Value Reference Range Interpretation Comments Plt Morph (test code = Normal (12/12/2012 N Plt Morph) 02:50:00) [facility] CenterPbcdnadATOHLGTZCR0695-54-82 08:50:00 Test Item Value Reference Range Interpretation Comments Hct (test code = Hct) 29.7 36.0-48.0 L [facility] CenterZwkxgxgDFFEZSWKL7437-69-75 08:50:00 Test Item Value Reference Range Interpretation Comments Bili Total (test code = Bili Total) 0.5 0.2-1.3 N [facility] CenterXyhdsvqWMNAVYXUF8849-80-83 08:50:00 Test Item Value Reference Range Interpretation Comments AST (test code = AST) 23 See_Comment N [Auto mated message] The system which ge nerated this result transmit ashanti reference range : <=37. The reference range was not used to interpr et this result as carmen l/abnormal. [facility] CenterLmujxedFTNMDZIWT5397-07-94 08:50:00 Test Item Value Reference Range Interpretation Comments Glucose Lvl (test code = Glucose Lvl) 79 70-99 N [facility] CenterPcguazbNZRISTOSN1775-82-68 08:50:00 Test Item Value Reference Range Interpretation Comments Alk Phos (test code = Alk Phos) 50 39-136 N [facility] CenterUibokuxBMHJXYVCY5247-38-32 08:50:00 Test Item Value Reference Range Interpretation Comments CO2 (test code = CO2) 24 24-32 N [facility] CenterPbfqgbgKHQXNOMKS7797-57-57 08:50:00 Test Item Value Reference Range Interpretation Comments BUN (test code = BUN) 10 7-22 N [facility] CenterHznpddhTZZSIWUME7045-82-61 08:50:00 Test Item Value Reference Range Interpretation Comments Total Protein (test code = Total 5.6 6.4-8.4 L Protein) [facility] CenterDpxeytkWLETJVQWV4422-41-28 08:50:00 Test Item Value Reference Range Interpretation Comments ALT (test code = ALT) 30 See_Comment N [Auto mated message] The system which ge nerated this result transmit ashanti reference range : <=65. The reference range was not used to interpr et this result as carmen l/abnormal. [facility] CenterDxextiwLITDWFAEM6332-89-75 08:50:00 Test Item Value Reference Range Interpretation Comments Albumin Lvl (test code = Albumin Lvl) 3.3 3.5-5.0 L [facility] CenterNhvqvycGHTPSTAZX1327-59-78 08:50:00 Test Item Value Reference Range Interpretation Comments eGFR (test code = eGFR) 115 [facility] CenterLugfyoiBGSGMTKVJ1878-40-19 08:50:00 Test Item Value Reference Range Interpretation Comments Potassium Lvl (test code = Potassium 3.7 3.5-5.1 N Lvl) [facility] CenterAiimrqpLKOERYBGG9502-79-14 08:50:00 Test Item Value Reference Range Interpretation Comments Sodium Lvl (test code = Sodium Lvl) 144 135-145 N [facility] CenterHfdqfprBXISXWANK6027-65-97 08:50:00 Test Item Value Reference Range Interpretation Comments Creatinine Lvl (test code = Creatinine 0.7 0.5-1.4 N Lvl) [facility] CenterAtayzzhXKSLQDCDB1897-13-56 08:50:00 Test Item Value Reference Range Interpretation Comments Calcium Lvl (test code = Calcium Lvl) 8.3 8.5-10.5 L [facility] CenterGoijbkyCNZEVQQVM5538-21-23 08:50:00 Test Item Value Reference Range Interpretation Comments Chloride Lvl (test code = Chloride Lvl) 108 95-109 N [facility] CenterCwkrpuzJSTCMCWWJ9360-30-43 08:50:00 Test Item Value Reference Range Interpretation Comments B/C Ratio (test code = B/C Ratio) 14 6-25 N [facility] CenterBqxlbuzMVHEVBDMX5584-85-88 08:50:00 Test Item Value Reference Range Interpretation Comments Globulin (test code = Globulin) 2.3 2.0-4.0 N [facility] CenterGffseamDNZMCCCXS3938-59-34 08:50:00 Test Item Value Reference Range Interpretation Comments AGAP (test code = AGAP) 15.7 10.0-20.0 N [facility] CenterTfrxfeeEQVQVMUQU0366-17-42 08:50:00 Test Item Value Reference Range Interpretation Comments A/G Ratio (test code = A/G Ratio) 1.4 0.7-1.6 N [facility] CenterEldesvkWXMJSHMWAZ3793-89-84 08:50:00 Test Item Value Reference Range Interpretation Comments MCHC (test code = MCHC) 32.0 32.0-36.0 N [facility] CenterIyddsqwFICILPZFZY6024-56-34 08:50:00 Test Item Value Reference Range Interpretation Comments Platelet (test code = Platelet) 229 133-450 N [facility] CenterCtjmbyfKPDEGVSWKY6998-04-20 08:50:00 Test Item Value Reference Range Interpretation Comments MPV (test code = MPV) 9.5 7.4-10.4 N [facility] CenterTxyqfdnSESITCGRHR3733-76-06 08:50:00 Test Item Value Reference Range Interpretation Comments RDW (test code = RDW) 16.3 11.5-14.5 H [facility] CenterIyuieazAQTWIIQOQQ5911-41-10 08:50:00 Test Item Value Reference Range Interpretation Comments WBC (test code = WBC) 9.8 3.7-10.4 N [facility] CenterQsajiutISHTKBTCON2290-96-52 08:50:00 Test Item Value Reference Range Interpretation Comments RBC (test code = RBC) 3.57 4.20-5.40 L [facility] CenterLxonwbuEBIKRDCIMP9937-31-24 08:50:00 Test Item Value Reference Range Interpretation Comments MCH (test code = MCH) 26.6 pg 27.0-31.0 L [facility] CenterBxwhgdfBRGQWUULBP2955-93-49 08:50:00 Test Item Value Reference Range Interpretation Comments Hct (test code = Hct) 29.7 36.0-48.0 L [facility] CenterUvrmtsqGAITTPECZQ4925-12-23 08:50:00 Test Item Value Reference Range Interpretation Comments MCV (test code = MCV) 83.1 81.0-99.0 N [facility] CenterEqbkownZQNJVJJLKG8980-00-87 08:50:00 Test Item Value Reference Range Interpretation Comments Hgb (test code = Hgb) 9.5 12.0-16.0 L [facility] CenterZcpawdxWFLOWMAUMJ8340-03-80 08:50:00 Test Item Value Reference Range Interpretation Comments Anisocyte (test code = 1+ *ABN*(12/12/2012 A Anisocyte) 02:50:00) [facility] CenterCecijfpSSKXSGUYAR7918-76-56 08:50:00 Test Item Value Reference Range Interpretation Comments Monocytes # (test code 0.6 See_Comment N [Aut omated message] The = Monocytes #) system which generated this result tra nsmitted reference range : <=0.8. The reference r megan was not used to int erpret this result as normal/abnormal . [facility] CenterSdqftpzCQSCXEKGIS9367-46-26 08:50:00 Test Item Value Reference Range Interpretation Comments Basophils # (test code 0.1 See_Comment N [Aut omated message] The = Basophils #) system which generated this result tra nsmitted reference range : <=0.2. The reference r megan was not used to int erpret this result as normal/abnormal . [facility] CenterCcdyrjsQTOMOMUWEX0893-57-44 08:50:00 Test Item Value Reference Range Interpretation Comments Eosinophils # (test code 0.1 See_Comment N [A utomated message] The = Eosinophils #) system whic h generated this result tra nsmitted reference range : <=0.5. The reference r megan was not used to int erpret this result as normal/abnormal . [facility] CenterGaotzktNUTCDTKVLD2315-01-96 08:50:00 Test Item Value Reference Range Interpretation Comments Eosinophils (test code = 1.0 See_Comment N [A utomated message] The Eosinophils) system which ge nerated this result tra nsmitted reference range : <=4.0. The reference r megan was not used to int erpret this result as normal/abnormal . [facility] CenterBlumisvRELDRVOWHO2408-36-31 08:50:00 Test Item Value Reference Range Interpretation Comments Monocytes (test code = Monocytes) 6.2 2.0-12.0 N [facility] CenterFbfpvwoDOCGTWHFLM7478-95-73 08:50:00 Test Item Value Reference Range Interpretation Comments Basophils (test code = 0.6 See_Comment N [Aut omated message] The Basophils) system which ge nerated this result tra nsmitted reference range : <=1.0. The reference r megan was not used to int erpret this result as normal/abnormal . [facility] CenterEkbvddgBPWUABWRLS2997-97-31 08:50:00 Test Item Value Reference Range Interpretation Comments Lymphocytes # (test code = Lymphocytes 3.9 1.0-5.5 N #) [facility] CenterQwupuikIHFDXINIBT7528-66-40 08:50:00 Test Item Value Reference Range Interpretation Comments Segs-Bands # (test code = Segs-Bands #) 5.1 1.5-8.1 N [facility] CenterYagsdmsNYEFIXXEKI6641-34-21 08:50:00 Test Item Value Reference Range Interpretation Comments Segs (test code = Segs) 52.6 45.0-75.0 N [facility] CenterPihcyqbYQBYJLGRMX5835-57-03 08:50:00 Test Item Value Reference Range Interpretation Comments Lymphocytes (test code = Lymphocytes) 39.6 20.0-40.0 N [facility] CenterDgqghlgRUVPTAUQSY3934-30-56 08:50:00 Test Item Value Reference Range Interpretation Comments Plt Morph (test code = Normal (12/12/2012 N Plt Morph) 02:50:00) [facility] CenterYrzcgexGDZZIRDMWM4215-60-49 08:50:00 Test Item Value Reference Range Interpretation Comments MCV (test code = MCV) 83.1 81.0-99.0 N [facility] CenterFwmonsmJVTTSEUBPM8690-53-21 08:50:00 Test Item Value Reference Range Interpretation Comments Hgb (test code = Hgb) 9.5 12.0-16.0 L [facility] CenterNhvkfnkJDIWJOLAC4775-03-01 08:50:00 Test Item Value Reference Range Interpretation Comments Bili Total (test code = Bili Total) 0.5 0.2-1.3 N [facility] CenterZjwsfweGDNHDAIXL6470-11-74 08:50:00 Test Item Value Reference Range Interpretation Comments AST (test code = AST) 23 See_Comment N [Auto mated message] The system which ge nerated this result transmit ashanti reference range : <=37. The reference range was not used to interpr et this result as carmen l/abnormal. [facility] CenterQlqdgxzALIFZBUUP7326-89-04 08:50:00 Test Item Value Reference Range Interpretation Comments Glucose Lvl (test code = Glucose Lvl) 79 70-99 N [facility] CenterOtfksinBWNUWHKPL7113-89-30 08:50:00 Test Item Value Reference Range Interpretation Comments Alk Phos (test code = Alk Phos) 50 39-136 N [facility] CenterLroesmiHSVCITKDG2908-40-82 08:50:00 Test Item Value Reference Range Interpretation Comments CO2 (test code = CO2) 24 24-32 N [facility] CenterRcshmqnGPFBYGHIX9171-84-34 08:50:00 Test Item Value Reference Range Interpretation Comments BUN (test code = BUN) 10 7-22 N [facility] CenterLpzosucAETBWCGGH9159-65-47 08:50:00 Test Item Value Reference Range Interpretation Comments Total Protein (test code = Total 5.6 6.4-8.4 L Protein) [facility] CenterAkpkwzcMTEMISCCK1170-79-59 08:50:00 Test Item Value Reference Range Interpretation Comments ALT (test code = ALT) 30 See_Comment N [Auto mated message] The system which ge nerated this result transmit ashanti reference range : <=65. The reference range was not used to interpr et this result as carmen l/abnormal. [facility] CenterQuguxcpCSFROKJJV1722-33-73 08:50:00 Test Item Value Reference Range Interpretation Comments Albumin Lvl (test code = Albumin Lvl) 3.3 3.5-5.0 L [facility] CenterLsawjtrVBANEZMNN8957-44-25 08:50:00 Test Item Value Reference Range Interpretation Comments eGFR (test code = eGFR) 115 [facility] CenterNrqvckzDYTFLTRIW5703-66-16 08:50:00 Test Item Value Reference Range Interpretation Comments Potassium Lvl (test code = Potassium 3.7 3.5-5.1 N Lvl) [facility] CenterHlyqdrhFYZBTUKOI5563-07-94 08:50:00 Test Item Value Reference Range Interpretation Comments Sodium Lvl (test code = Sodium Lvl) 144 135-145 N [facility] CenterRogfxyyOZOJHTCGC5607-89-76 08:50:00 Test Item Value Reference Range Interpretation Comments Creatinine Lvl (test code = Creatinine 0.7 0.5-1.4 N Lvl) [facility] CenterXnjbtwrIQTNKZBMV4758-14-23 08:50:00 Test Item Value Reference Range Interpretation Comments Calcium Lvl (test code = Calcium Lvl) 8.3 8.5-10.5 L [facility] CenterTzdleqhPBXDWLANZ6710-88-64 08:50:00 Test Item Value Reference Range Interpretation Comments Chloride Lvl (test code = Chloride Lvl) 108 95-109 N [facility] CenterRpmgcooCIHJJJJFB2098-38-60 08:50:00 Test Item Value Reference Range Interpretation Comments B/C Ratio (test code = B/C Ratio) 14 6-25 N [facility] CenterPxklwfuRXBVVPBSL9059-66-16 08:50:00 Test Item Value Reference Range Interpretation Comments Globulin (test code = Globulin) 2.3 2.0-4.0 N [facility] CenterSnsjefzSHQSGXHMO4567-20-56 08:50:00 Test Item Value Reference Range Interpretation Comments AGAP (test code = AGAP) 15.7 10.0-20.0 N [facility] CenterJbbazmgPDYXVCWXG4742-48-32 08:50:00 Test Item Value Reference Range Interpretation Comments A/G Ratio (test code = A/G Ratio) 1.4 0.7-1.6 N [facility] CenterPmttepzRAZSTGDMIR4368-28-10 08:50:00 Test Item Value Reference Range Interpretation Comments MCHC (test code = MCHC) 32.0 32.0-36.0 N [facility] CenterPbezfilIODKNOUZJS8440-88-45 08:50:00 Test Item Value Reference Range Interpretation Comments Platelet (test code = Platelet) 229 133-450 N [facility] CenterDzchwtqOSYDSLXOBO2799-38-02 08:50:00 Test Item Value Reference Range Interpretation Comments MPV (test code = MPV) 9.5 7.4-10.4 N [facility] CenterSyecawdIUREGOISUM0205-39-58 08:50:00 Test Item Value Reference Range Interpretation Comments RDW (test code = RDW) 16.3 11.5-14.5 H [facility] CenterDatjpmjAFIHWWGJYT4743-91-07 08:50:00 Test Item Value Reference Range Interpretation Comments WBC (test code = WBC) 9.8 3.7-10.4 N [facility] CenterNujovhyAZPQAVFBBH1914-90-01 08:50:00 Test Item Value Reference Range Interpretation Comments RBC (test code = RBC) 3.57 4.20-5.40 L [facility] CenterDlcestqIDZJEBNUPK9164-16-94 08:50:00 Test Item Value Reference Range Interpretation Comments MCH (test code = MCH) 26.6 pg 27.0-31.0 L [facility] CenterBbzhtwgICOZZATSYB4990-68-67 08:50:00 Test Item Value Reference Range Interpretation Comments Hct (test code = Hct) 29.7 36.0-48.0 L [facility] CenterBzvwlpfRWYECPPKID0282-98-57 08:50:00 Test Item Value Reference Range Interpretation Comments MCV (test code = MCV) 83.1 81.0-99.0 N [facility]QxjycevMUZLNQMXLT1579-45-51 08:50:00 Test Item Value Reference Range Interpretation Comments Hgb (test code = Hgb) 9.5 12.0-16.0 L [facility] CenterTbdiyvpUHQMRTRPWT3965-95-45 08:50:00 Test Item Value Reference Range Interpretation Comments Anisocyte (test code = 1+ *ABN*(12/12/2012 A Anisocyte) 02:50:00) [facility] CenterKlxifbeYXLVSUHDAC4329-76-87 08:50:00 Test Item Value Reference Range Interpretation Comments Monocytes # (test code 0.6 See_Comment N [Aut omated message] The = Monocytes #) system which generated this result tra nsmitted reference range : <=0.8. The reference r megan was not used to int erpret this result as normal/abnormal . [facility] CenterGuhtytiMRWJFWMOEH6577-55-58 08:50:00 Test Item Value Reference Range Interpretation Comments Basophils # (test code 0.1 See_Comment N [Aut omated message] The = Basophils #) system which generated this result tra nsmitted reference range : <=0.2. The reference r megan was not used to int erpret this result as normal/abnormal . [facility] CenterUexvyvbDSYBCFGUYH6647-01-74 08:50:00 Test Item Value Reference Range Interpretation Comments Eosinophils # (test code 0.1 See_Comment N [A utomated message] The = Eosinophils #) system whic h generated this result tra nsmitted reference range : <=0.5. The reference r megan was not used to int erpret this result as normal/abnormal . [facility] CenterNeieikaSUICYSJXOA6452-60-50 08:50:00 Test Item Value Reference Range Interpretation Comments Eosinophils (test code = 1.0 See_Comment N [A utomated message] The Eosinophils) system which ge nerated this result tra nsmitted reference range : <=4.0. The reference r megan was not used to int erpret this result as normal/abnormal . [facility] CenterNwdnyynZZOKYHVKIH1315-21-00 08:50:00 Test Item Value Reference Range Interpretation Comments Monocytes (test code = Monocytes) 6.2 2.0-12.0 N [facility] CenterBdnafcuBMPNHHKJKF2674-22-08 08:50:00 Test Item Value Reference Range Interpretation Comments Basophils (test code = 0.6 See_Comment N [Aut omated message] The Basophils) system which ge nerated this result tra nsmitted reference range : <=1.0. The reference r megan was not used to int erpret this result as normal/abnormal . [facility] CenterAwofqqoGUOLQRLQES0021-80-97 08:50:00 Test Item Value Reference Range Interpretation Comments Lymphocytes # (test code = Lymphocytes 3.9 1.0-5.5 N #) [facility] CenterPqrgicqMPSXSZCZXX6855-49-17 08:50:00 Test Item Value Reference Range Interpretation Comments Segs-Bands # (test code = Segs-Bands #) 5.1 1.5-8.1 N [facility] CenterMayycqgCHGTSOCHXL9657-17-40 08:50:00 Test Item Value Reference Range Interpretation Comments Segs (test code = Segs) 52.6 45.0-75.0 N [facility] CenterExlutrgSTOWHGAERX9535-21-41 08:50:00 Test Item Value Reference Range Interpretation Comments Lymphocytes (test code = Lymphocytes) 39.6 20.0-40.0 N [facility] CenterLmhvfruWEMOSUKKKK9946-50-17 08:50:00 Test Item Value Reference Range Interpretation Comments Plt Morph (test code = Normal (12/12/2012 N Plt Morph) 02:50:00) [facility] CenterNieleniQXBPGGUDCQ6553-36-23 08:50:00 Test Item Value Reference Range Interpretation Comments Anisocyte (test code = 1+ *ABN*(12/12/2012 A Anisocyte) 02:50:00) [facility] CenterBebjmkdULBQGPRRC0591-29-80 08:50:00 Test Item Value Reference Range Interpretation Comments Bili Total (test code = Bili Total) 0.5 0.2-1.3 N [facility] CenterDtwvuxuYMJHBRTPQ6976-85-38 08:50:00 Test Item Value Reference Range Interpretation Comments AST (test code = AST) 23 See_Comment N [Auto mated message] The system which ge nerated this result transmit ashanti reference range : <=37. The reference range was not used to interpr et this result as carmen l/abnormal. [facility] CenterRisdijkVOECAWFLX7469-15-35 08:50:00 Test Item Value Reference Range Interpretation Comments Glucose Lvl (test code = Glucose Lvl) 79 70-99 N [facility] CenterLxdbthkSGEELXEWM6760-77-59 08:50:00 Test Item Value Reference Range Interpretation Comments Alk Phos (test code = Alk Phos) 50 39-136 N [facility] CenterJpqdktzHGNIZAOYS2021-92-45 08:50:00 Test Item Value Reference Range Interpretation Comments CO2 (test code = CO2) 24 24-32 N [facility] CenterGkibxkeLSRXFZNXZ4535-26-82 08:50:00 Test Item Value Reference Range Interpretation Comments BUN (test code = BUN) 10 7-22 N [facility] CenterLxmiosxZFLZFZEJG7207-48-16 08:50:00 Test Item Value Reference Range Interpretation Comments Total Protein (test code = Total 5.6 6.4-8.4 L Protein) [facility] CenterVwixcseRFMVRLNBQ8053-20-00 08:50:00 Test Item Value Reference Range Interpretation Comments ALT (test code = ALT) 30 See_Comment N [Auto mated message] The system which ge nerated this result transmit ashanti reference range : <=65. The reference range was not used to interpr et this result as carmen l/abnormal. [facility] CenterCojwnczPVBHMEMTRW0416-12-97 08:50:00 Test Item Value Reference Range Interpretation Comments Monocytes # (test code 0.6 See_Comment N [Aut omated message] The = Monocytes #) system which generated this result tra nsmitted reference range : <=0.8. The reference r megan was not used to int erpret this result as normal/abnormal . [facility] CenterKzuzbmzHFIZIJPPE8727-21-33 08:50:00 Test Item Value Reference Range Interpretation Comments Albumin Lvl (test code = Albumin Lvl) 3.3 3.5-5.0 L [facility] CenterNgzcdlqQQYZDUFHU3842-35-34 08:50:00 Test Item Value Reference Range Interpretation Comments eGFR (test code = eGFR) 115 [facility] CenterOadqasgFTNDKUFGT9404-27-13 08:50:00 Test Item Value Reference Range Interpretation Comments Potassium Lvl (test code = Potassium 3.7 3.5-5.1 N Lvl) [place] 269063-03-09 08:50:00 Test Item Value Reference Range Interpretation Comments Sodium Lvl (test code = Sodium Lvl) 144 135-145 N [facility] CenterLwayejnDXTCWKFKQ5809-36-99 08:50:00 Test Item Value Reference Range Interpretation Comments Creatinine Lvl (test code = Creatinine 0.7 0.5-1.4 N Lvl) [facility] CenterZuuuejqNRFZGHVME1557-76-56 08:50:00 Test Item Value Reference Range Interpretation Comments Calcium Lvl (test code = Calcium Lvl) 8.3 8.5-10.5 L [facility] CenterOrmymqdKMWLZXXVK4832-54-16 08:50:00 Test Item Value Reference Range Interpretation Comments Chloride Lvl (test code = Chloride Lvl) 108 95-109 N [facility] CenterTclnbnyCWPOVLIWB5964-09-00 08:50:00 Test Item Value Reference Range Interpretation Comments B/C Ratio (test code = B/C Ratio) 14 6-25 N [facility] CenterQbontsuYIYGJHJYD1411-55-20 08:50:00 Test Item Value Reference Range Interpretation Comments Globulin (test code = Globulin) 2.3 2.0-4.0 N [facility] CenterCpmkwvfSUNSSBIEG2878-28-59 08:50:00 Test Item Value Reference Range Interpretation Comments AGAP (test code = AGAP) 15.7 10.0-20.0 N [facility] CenterRrracvpNELPBUMIL7723-84-29 08:50:00 Test Item Value Reference Range Interpretation Comments A/G Ratio (test code = A/G Ratio) 1.4 0.7-1.6 N [facility] CenterYbkpwfpJZPPZLKOTE4976-04-73 08:50:00 Test Item Value Reference Range Interpretation Comments MCHC (test code = MCHC) 32.0 32.0-36.0 N [facility] CenterNfgtzquHGQYLTXIPL1193-53-56 08:50:00 Test Item Value Reference Range Interpretation Comments Platelet (test code = Platelet) 229 133-450 N [facility] CenterPqbebkeQYPKATKDQL8645-14-92 08:50:00 Test Item Value Reference Range Interpretation Comments MPV (test code = MPV) 9.5 7.4-10.4 N [facility] CenterTjfgarvPYBAMRBMCB4884-12-37 08:50:00 Test Item Value Reference Range Interpretation Comments RDW (test code = RDW) 16.3 11.5-14.5 H [facility] CenterUiloiptBOCWKSYTVH4141-31-31 08:50:00 Test Item Value Reference Range Interpretation Comments WBC (test code = WBC) 9.8 3.7-10.4 N [facility] CenterIqiuylgSGWXVZTQSX3632-99-89 08:50:00 Test Item Value Reference Range Interpretation Comments RBC (test code = RBC) 3.57 4.20-5.40 L [facility] CenterPrjexetFYADVSTMAF8325-51-90 08:50:00 Test Item Value Reference Range Interpretation Comments MCH (test code = MCH) 26.6 pg 27.0-31.0 L [facility] CenterAcprqsqOHQOPXPVUG8684-63-03 08:50:00 Test Item Value Reference Range Interpretation Comments Hct (test code = Hct) 29.7 36.0-48.0 L [facility] CenterWphmthzFBIAXEYGOT6629-90-93 08:50:00 Test Item Value Reference Range Interpretation Comments MCV (test code = MCV) 83.1 81.0-99.0 N [facility] CenterFuzkombRJRPXMWVXT7864-56-76 08:50:00 Test Item Value Reference Range Interpretation Comments Hgb (test code = Hgb) 9.5 12.0-16.0 L [facility] CenterLdmycnsKMCXNGLCNL4350-35-16 08:50:00 Test Item Value Reference Range Interpretation Comments Anisocyte (test code = 1+ *ABN*(12/12/2012 A Anisocyte) 02:50:00) [facility] CenterZehuiihVSLZYWKFXB1154-04-27 08:50:00 Test Item Value Reference Range Interpretation Comments Monocytes # (test code 0.6 See_Comment N [Aut omated message] The = Monocytes #) system which generated this result tra nsmitted reference range : <=0.8. The reference r megan was not used to int erpret this result as normal/abnormal . [facility] CenterEzjhhwfOBMPTAKDYL0991-34-84 08:50:00 Test Item Value Reference Range Interpretation Comments Basophils # (test code 0.1 See_Comment N [Aut omated message] The = Basophils #) system which generated this result tra nsmitted reference range : <=0.2. The reference r megan was not used to int erpret this result as normal/abnormal . [facility] CenterVemrmbdBFNRNFRQNP9276-16-05 08:50:00 Test Item Value Reference Range Interpretation Comments Eosinophils # (test code 0.1 See_Comment N [A utomated message] The = Eosinophils #) system whic h generated this result tra nsmitted reference range : <=0.5. The reference r megan was not used to int erpret this result as normal/abnormal . [facility] CenterOddmtmkVFQQJQYEMS2979-88-96 08:50:00 Test Item Value Reference Range Interpretation Comments Eosinophils (test code = 1.0 See_Comment N [A utomated message] The Eosinophils) system which ge nerated this result tra nsmitted reference range : <=4.0. The reference r megan was not used to int erpret this result as normal/abnormal . [facility] CenterRcfisuqLGRKGHANQD6593-57-45 08:50:00 Test Item Value Reference Range Interpretation Comments Monocytes (test code = Monocytes) 6.2 2.0-12.0 N [facility] CenterGcjuwimASTNMMYKIZ6944-73-11 08:50:00 Test Item Value Reference Range Interpretation Comments Basophils (test code = 0.6 See_Comment N [Aut omated message] The Basophils) system which ge nerated this result tra nsmitted reference range : <=1.0. The reference r megan was not used to int erpret this result as normal/abnormal . [facility] CenterForhzmwTHDCKMYFYE7832-99-46 08:50:00 Test Item Value Reference Range Interpretation Comments Lymphocytes # (test code = Lymphocytes 3.9 1.0-5.5 N #) [facility] CenterWqoadbsACWUFGWZTQ0368-45-39 08:50:00 Test Item Value Reference Range Interpretation Comments Segs-Bands # (test code = Segs-Bands #) 5.1 1.5-8.1 N [facility] CenterJzcfevxCGKUIESBSS8563-01-89 08:50:00 Test Item Value Reference Range Interpretation Comments Segs (test code = Segs) 52.6 45.0-75.0 N [facility] CenterUcshkqrRCYHAXPLFJ7815-13-63 08:50:00 Test Item Value Reference Range Interpretation Comments Lymphocytes (test code = Lymphocytes) 39.6 20.0-40.0 N [facility] CenterQlitecfNFTFICPXTK3001-93-79 08:50:00 Test Item Value Reference Range Interpretation Comments Plt Morph (test code = Normal (12/12/2012 N Plt Morph) 02:50:00) [facility] CenterMnfvvblSKMWHQAFEN5578-76-88 08:50:00 Test Item Value Reference Range Interpretation Comments Basophils # (test code 0.1 See_Comment N [Aut omated message] The = Basophils #) system which generated this result tra nsmitted reference range : <=0.2. The reference r megan was not used to int erpret this result as normal/abnormal . [facility]YivmqbvDMRWYFWIY4557-40-58 08:50:00 Test Item Value Reference Range Interpretation Comments Bili Total (test code = Bili Total) 0.5 0.2-1.3 N [facility] CenterRvzfdqrECKKHVSXV4552-30-77 08:50:00 Test Item Value Reference Range Interpretation Comments AST (test code = AST) 23 See_Comment N [Auto mated message] The system which ge nerated this result transmit ashanti reference range : <=37. The reference range was not used to interpr et this result as carmen l/abnormal. [facility] CenterByyeotgNBPMQEXZR3828-29-93 08:50:00 Test Item Value Reference Range Interpretation Comments Glucose Lvl (test code = Glucose Lvl) 79 70-99 N [facility] CenterAzoadjhFNCEICZTQ1174-56-52 08:50:00 Test Item Value Reference Range Interpretation Comments Alk Phos (test code = Alk Phos) 50 39-136 N [facility] CenterVmxheffBQHBSJXKZ2703-35-89 08:50:00 Test Item Value Reference Range Interpretation Comments CO2 (test code = CO2) 24 24-32 N [facility] CenterCxowpltXYQQKIOHL7741-53-82 08:50:00 Test Item Value Reference Range Interpretation Comments BUN (test code = BUN) 10 7-22 N [facility] CenterKbsoglrQBWTZUVNY6004-89-19 08:50:00 Test Item Value Reference Range Interpretation Comments Total Protein (test code = Total 5.6 6.4-8.4 L Protein) [facility] CenterGklswlbXHEJLBDBB7455-77-08 08:50:00 Test Item Value Reference Range Interpretation Comments ALT (test code = ALT) 30 See_Comment N [Auto mated message] The system which ge nerated this result transmit ashanti reference range : <=65. The reference range was not used to interpr et this result as carmen l/abnormal. [facility] CenterFfxnnqcSOJIPHPFI4007-66-71 08:50:00 Test Item Value Reference Range Interpretation Comments Albumin Lvl (test code = Albumin Lvl) 3.3 3.5-5.0 L [facility] CenterCsdwaxoPKODFHHWG8463-34-40 08:50:00 Test Item Value Reference Range Interpretation Comments eGFR (test code = eGFR) 115 [facility] CenterQeegirlZKQWMRIBF6007-50-86 08:50:00 Test Item Value Reference Range Interpretation Comments Potassium Lvl (test code = Potassium 3.7 3.5-5.1 N Lvl) [facility] CenterWndedqkNSWAMYCLL4294-23-43 08:50:00 Test Item Value Reference Range Interpretation Comments Sodium Lvl (test code = Sodium Lvl) 144 135-145 N [facility] CenterTzlqdvfXOLVSHCJK7091-78-05 08:50:00 Test Item Value Reference Range Interpretation Comments Creatinine Lvl (test code = Creatinine 0.7 0.5-1.4 N Lvl) [facility] CenterLoywajvWRAMPIQUK1287-18-56 08:50:00 Test Item Value Reference Range Interpretation Comments Calcium Lvl (test code = Calcium Lvl) 8.3 8.5-10.5 L [facility] CenterSztefbcCXVKLOVWV6659-24-19 08:50:00 Test Item Value Reference Range Interpretation Comments Chloride Lvl (test code = Chloride Lvl) 108 95-109 N [facility] CenterEwlcxnpSHBZHCLMN7326-31-02 08:50:00 Test Item Value Reference Range Interpretation Comments B/C Ratio (test code = B/C Ratio) 14 6-25 N [facility] CenterKbtyorkDGHBYRLIK1752-43-55 08:50:00 Test Item Value Reference Range Interpretation Comments Globulin (test code = Globulin) 2.3 2.0-4.0 N [facility] CenterDkbxsfoIQMDQFUSL6403-43-32 08:50:00 Test Item Value Reference Range Interpretation Comments AGAP (test code = AGAP) 15.7 10.0-20.0 N [facility] CenterFjefhwiNYKKZHEUL8308-51-58 08:50:00 Test Item Value Reference Range Interpretation Comments A/G Ratio (test code = A/G Ratio) 1.4 0.7-1.6 N [facility] CenterYkolhfmNMERYZSICN3436-31-32 08:50:00 Test Item Value Reference Range Interpretation Comments MCHC (test code = MCHC) 32.0 32.0-36.0 N [facility] CenterGgosyfbTVVKEBKBDX7841-44-39 08:50:00 Test Item Value Reference Range Interpretation Comments Platelet (test code = Platelet) 229 133-450 N [facility] CenterLnnyumeQVPFZVAMVO9281-62-21 08:50:00 Test Item Value Reference Range Interpretation Comments MPV (test code = MPV) 9.5 7.4-10.4 N [facility] CenterDwfumqxXLVRNIAPKX9300-66-92 08:50:00 Test Item Value Reference Range Interpretation Comments RDW (test code = RDW) 16.3 11.5-14.5 H [facility] CenterUhfnxwtXEMZSVUMET2516-30-13 08:50:00 Test Item Value Reference Range Interpretation Comments WBC (test code = WBC) 9.8 3.7-10.4 N [facility] CenterOomghyeMKHXNARCDN4761-53-11 08:50:00 Test Item Value Reference Range Interpretation Comments RBC (test code = RBC) 3.57 4.20-5.40 L [facility] CenterPxtrqqwCFRFEGDHPG8379-86-47 08:50:00 Test Item Value Reference Range Interpretation Comments MCH (test code = MCH) 26.6 pg 27.0-31.0 L [facility] CenterQmgnfhsDVYWSINDDY9998-19-52 08:50:00 Test Item Value Reference Range Interpretation Comments Hct (test code = Hct) 29.7 36.0-48.0 L [facility] CenterAwhnmhoKLRBYDLJDU4260-35-15 08:50:00 Test Item Value Reference Range Interpretation Comments MCV (test code = MCV) 83.1 81.0-99.0 N [facility] CenterHfeisxyGHZWMFQHCQ7388-66-98 08:50:00 Test Item Value Reference Range Interpretation Comments Hgb (test code = Hgb) 9.5 12.0-16.0 L [facility] CenterHvcvlvfJMEKFJQNAG1354-74-67 08:50:00 Test Item Value Reference Range Interpretation Comments Anisocyte (test code = 1+ *ABN*(12/12/2012 A Anisocyte) 02:50:00) [facility] CenterDbgbordLUNLYFNYTV4700-62-58 08:50:00 Test Item Value Reference Range Interpretation Comments Monocytes # (test code 0.6 See_Comment N [Aut omated message] The = Monocytes #) system which generated this result tra nsmitted reference range : <=0.8. The reference r megan was not used to int erpret this result as normal/abnormal . [facility] CenterJtwcbwaSVKXNBAGYD4190-67-49 08:50:00 Test Item Value Reference Range Interpretation Comments Basophils # (test code 0.1 See_Comment N [Aut omated message] The = Basophils #) system which generated this result tra nsmitted reference range : <=0.2. The reference r megan was not used to int erpret this result as normal/abnormal . [facility] CenterVdkibxdDQQELWDCDA2528-16-53 08:50:00 Test Item Value Reference Range Interpretation Comments Eosinophils # (test code 0.1 See_Comment N [A utomated message] The = Eosinophils #) system [facility] generated this result tra nsmitted reference range : <=0.5. The reference r megan was not used to int erpret this result as normal/abnormal . [facility] CenterHhtdtpdEOUZUMVMEG7594-82-30 08:50:00 Test Item Value Reference Range Interpretation Comments Eosinophils (test code = 1.0 See_Comment N [A utomated message] The Eosinophils) system which ge nerated this result tra nsmitted reference range : <=4.0. The reference r megan was not used to int erpret this result as normal/abnormal . [facility] CenterQgoamqcPPDBWVMRKY2758-42-45 08:50:00 Test Item Value Reference Range Interpretation Comments Monocytes (test code = Monocytes) 6.2 2.0-12.0 N [facility] CenterRlyleamPZUBVYALDB9124-46-80 08:50:00 Test Item Value Reference Range Interpretation Comments Basophils (test code = 0.6 See_Comment N [Aut omated message] The Basophils) system which ge nerated this result tra nsmitted reference range : <=1.0. The reference r megan was not used to int erpret this result as normal/abnormal . [facility] CenterEcpkfvtNZMSAQDQNY9067-53-82 08:50:00 Test Item Value Reference Range Interpretation Comments Eosinophils # (test code 0.1 See_Comment N [A utomated message] The = Eosinophils #) system [facility] generated this result tra nsmitted reference range : <=0.5. The reference r megan was not used to int erpret this result as normal/abnormal . [facility] CenterCwlmsgmWSDFWGGLSF2110-62-44 08:50:00 Test Item Value Reference Range Interpretation Comments Lymphocytes # (test code = Lymphocytes 3.9 1.0-5.5 N #) [facility] CenterLzwvytnCTDIPMNKEV8009-69-89 08:50:00 Test Item Value Reference Range Interpretation Comments Segs-Bands # (test code = Segs-Bands #) 5.1 1.5-8.1 N [facility] CenterZdyfnnaRHZHVSRUKY8566-70-82 08:50:00 Test Item Value Reference Range Interpretation Comments Segs (test code = Segs) 52.6 45.0-75.0 N [facility] CenterFuxdxxoZHJYLIVIFD8029-19-72 08:50:00 Test Item Value Reference Range Interpretation Comments Lymphocytes (test code = Lymphocytes) 39.6 20.0-40.0 N [facility] CenterFjihpyxHZVCENVDVF9956-10-40 08:50:00 Test Item Value Reference Range Interpretation Comments Plt Morph (test code = Normal (12/12/2012 N Plt Morph) 02:50:00) [facility] CenterNwjocqxPQHENHUPDM3432-08-55 08:50:00 Test Item Value Reference Range Interpretation Comments Eosinophils (test code = 1.0 See_Comment N [A utomated message] The Eosinophils) system which ge nerated this result tra nsmitted reference range : <=4.0. The reference r megan was not used to int erpret this result as normal/abnormal . [facility] CenterAuwjeemRJBTIDZNG7737-42-57 08:50:00 Test Item Value Reference Range Interpretation Comments Bili Total (test code = Bili Total) 0.5 0.2-1.3 N [facility] CenterGstrmajVNWZRXCDE1140-20-63 08:50:00 Test Item Value Reference Range Interpretation Comments AST (test code = AST) 23 See_Comment N [Auto mated message] The system which ge nerated this result transmit ashanti reference range : <=37. The reference range was not used to interpr et this result as carmen l/abnormal. [facility] CenterKgyylwqXZSHXJWJE9232-28-50 08:50:00 Test Item Value Reference Range Interpretation Comments Glucose Lvl (test code = Glucose Lvl) 79 70-99 N [facility] CenterMtujccxAWYMKRVKX5880-28-19 08:50:00 Test Item Value Reference Range Interpretation Comments Alk Phos (test code = Alk Phos) 50 39-136 N [facility] CenterCzbdyxyBUVTXEIOS9229-34-53 08:50:00 Test Item Value Reference Range Interpretation Comments CO2 (test code = CO2) 24 24-32 N [facility] CenterLfmrooiZDNJPGNOU8478-51-12 08:50:00 Test Item Value Reference Range Interpretation Comments BUN (test code = BUN) 10 7-22 N [facility] CenterUzkkqzyWNXFWPCMI2492-05-36 08:50:00 Test Item Value Reference Range Interpretation Comments Total Protein (test code = Total 5.6 6.4-8.4 L Protein) [facility] CenterZxtybsfQQZCPMMWJ2683-68-47 08:50:00 Test Item Value Reference Range Interpretation Comments ALT (test code = ALT) 30 See_Comment N [Auto mated message] The system which ge nerated this result transmit ashanti reference range : <=65. The reference range was not used to interpr et this result as carmen l/abnormal. [facility] CenterBfkynojCCOULHUDN7911-97-32 08:50:00 Test Item Value Reference Range Interpretation Comments Albumin Lvl (test code = Albumin Lvl) 3.3 3.5-5.0 L [facility] CenterNuanfdoCCQBBSRGF9697-91-67 08:50:00 Test Item Value Reference Range Interpretation Comments eGFR (test code = eGFR) 115 [facility] CenterDvswizrTEBJGLDCZ7699-61-78 08:50:00 Test Item Value Reference Range Interpretation Comments Potassium Lvl (test code = Potassium 3.7 3.5-5.1 N Lvl) [facility] CenterZtbfotwYPASOOKDQ7164-83-82 08:50:00 Test Item Value Reference Range Interpretation Comments Sodium Lvl (test code = Sodium Lvl) 144 135-145 N [facility] CenterPgxkvmoGNUMPHLTD1996-11-43 08:50:00 Test Item Value Reference Range Interpretation Comments Creatinine Lvl (test code = Creatinine 0.7 0.5-1.4 N Lvl) [facility] CenterQsrmsovAJLOUWNDM8101-39-98 08:50:00 Test Item Value Reference Range Interpretation Comments Calcium Lvl (test code = Calcium Lvl) 8.3 8.5-10.5 L [facility] CenterIsojsqpWLGXXAJNL7984-02-76 08:50:00 Test Item Value Reference Range Interpretation Comments Chloride Lvl (test code = Chloride Lvl) 108 95-109 N [facility] CenterLuhkjdnXUJKFSWZN7177-89-52 08:50:00 Test Item Value Reference Range Interpretation Comments B/C Ratio (test code = B/C Ratio) 14 6-25 N [facility] CenterLpyiumgKZAPXJEZT4667-19-73 08:50:00 Test Item Value Reference Range Interpretation Comments Globulin (test code = Globulin) 2.3 2.0-4.0 N [facility] CenterAiuavuqEVJLLAFFV4375-94-95 08:50:00 Test Item Value Reference Range Interpretation Comments AGAP (test code = AGAP) 15.7 10.0-20.0 N [facility] [facility]naeiVSIFVVARQ2576-[facility]-52 08:50:00 Test Item Value Reference Range Interpretation Comments A/G Ratio (test code = A/G Ratio) 1.4 0.7-1.6 N [facility]LzyambpWUZVHFHBBI4112-53-77 08:50:00 Test Item Value Reference Range Interpretation Comments MCHC (test code = MCHC) 32.0 32.0-36.0 N [facility]SkxipwpYDDCLGCXHB0306-78-82 08:50:00 Test Item Value Reference Range Interpretation Comments Platelet (test code = Platelet) 229 133-450 N [facility] CenterNlokynoYHVVWXRZOA7854-34-46 08:50:00 Test Item Value Reference Range Interpretation Comments MPV (test code = MPV) 9.5 7.4-10.4 N [facility] CenterApmlusuCKFBRTMRNP2446-19-74 08:50:00 Test Item Value Reference Range Interpretation Comments RDW (test code = RDW) 16.3 11.5-14.5 [facility] CenterJkbhwgjXRRWFOAHHS6540-45-86 08:50:00 Test Item Value Reference Range Interpretation Comments WBC (test code = WBC) 9.8 3.7-10.4 N [facility] CenterMfayhtcEEWYVTPFBJ7618-35-11 08:50:00 Test Item Value Reference Range Interpretation Comments RBC (test code = RBC) 3.57 4.20-5.40 L [facility] CenterEtixfvpGJDWSNGVYW9680-57-22 08:50:00 Test Item Value Reference Range Interpretation Comments MCH (test code = MCH) 26.6 pg 27.0-31.0 L [facility] CenterWyhlzghKASSCOKBTS3251-99-36 08:50:00 Test Item Value Reference Range Interpretation Comments Hct (test code = Hct) 29.7 36.0-48.0 L [facility] CenterXxxtzzsLAESVYZHOS9514-32-77 08:50:00 Test Item Value Reference Range Interpretation Comments MCV (test code = MCV) 83.1 81.0-99.0 N [facility] CenterBdphlokAWIMJPWOQT0515-02-27 08:50:00 Test Item Value Reference Range Interpretation Comments Hgb (test code = Hgb) 9.5 12.0-16.0 L [facility] CenterOzqceafANMZVKQVSN9168-12-37 08:50:00 Test Item Value Reference Range Interpretation Comments Anisocyte (test code = 1+ *ABN*(12/12/2012 A Anisocyte) 02:50:00) [facility] CenterBbssjtrUQNUMQNAYV1648-99-12 08:50:00 Test Item Value Reference Range Interpretation Comments Monocytes # (test code 0.6 See_Comment N [Aut omated message] The = Monocytes #) system which generated this result tra nsmitted reference range : <=0.8. The reference r megan was not used to int erpret this result as normal/abnormal . [facility] CenterSktpvkxSJRZOBFSOW2323-09-93 08:50:00 Test Item Value Reference Range Interpretation Comments Basophils # (test code 0.1 See_Comment N [Aut omated message] The = Basophils #) system which generated this result tra nsmitted reference range : <=0.2. The reference r megan was not used to int erpret this result as normal/abnormal . [facility] CenterQhmmymdFWIIECGOTC6770-44-94 08:50:00 Test Item Value Reference Range Interpretation Comments Eosinophils # (test code 0.1 See_Comment N [A utomated message] The = Eosinophils #) system whic h generated this result tra nsmitted reference range : <=0.5. The reference r megan was not used to int erpret this result as normal/abnormal . [facility] CenterLhyisjsJLPOKTIPOB7160-88-08 08:50:00 Test Item Value Reference Range Interpretation Comments Eosinophils (test code = 1.0 See_Comment N [A utomated message] The Eosinophils) system which ge nerated this result tra nsmitted reference range : <=4.0. The reference r megan was not used to int erpret this result as normal/abnormal . [facility] CenterSmyjipdNCYOVSRKJG6626-48-60 08:50:00 Test Item Value Reference Range Interpretation Comments Monocytes (test code = Monocytes) 6.2 2.0-12.0 N [facility] CenterHyurungBIMJKVTIOP5242-29-82 08:50:00 Test Item Value Reference Range Interpretation Comments Basophils (test code = 0.6 See_Comment N [Aut omated message] The Basophils) system which ge nerated this result tra nsmitted reference range : <=1.0. The reference r megan was not used to int erpret this result as normal/abnormal . [facility] CenterXjprllbHJJKXUEFMW8533-64-46 08:50:00 Test Item Value Reference Range Interpretation Comments Lymphocytes # (test code = Lymphocytes 3.9 1.0-5.5 N #) [facility] CenterEbszymsAWGNQIDITD8582-22-32 08:50:00 Test Item Value Reference Range Interpretation Comments Segs-Bands # (test code = Segs-Bands #) 5.1 1.5-8.1 N [facility] CenterSospcfaLHOHNZATAK8550-45-76 08:50:00 Test Item Value Reference Range Interpretation Comments Segs (test code = Segs) 52.6 45.0-75.0 N [facility] CenterFretmdePJOIYOWGBP1370-55-32 08:50:00 Test Item Value Reference Range Interpretation Comments Lymphocytes (test code = Lymphocytes) 39.6 20.0-40.0 N [facility] CenterNsggjfjVRDYCTXOJV7999-25-29 08:50:00 Test Item Value Reference Range Interpretation Comments Plt Morph (test code = Normal (12/12/2012 N Plt Morph) 02:50:00) [facility] CenterQzmxgfzQFLQOZZKRR9610-77-27 08:50:00 Test Item Value Reference Range Interpretation Comments Monocytes (test code = Monocytes) 6.2 2.0-12.0 N [facility] CenterNtbeuugIHOCDDHWOO0367-62-41 08:50:00 Test Item Value Reference Range Interpretation Comments Basophils (test code = 0.6 See_Comment N [Aut omated message] The Basophils) system which ge nerated this result tra nsmitted reference range : <=1.0. The reference r megan was not used to int erpret this result as normal/abnormal . [facility] CenterAypofjkNEYZQRGBD5548-41-33 08:50:00 Test Item Value Reference Range Interpretation Comments Bili Total (test code = Bili Total) 0.5 0.2-1.3 N [facility] CenterHgdnejgZRQDNQZSL3942-54-63 08:50:00 Test Item Value Reference Range Interpretation Comments AST (test code = AST) 23 See_Comment N [Auto mated message] The system which ge nerated this result transmit ashanti reference range : <=37. The reference range was not used to interpr et this result as carmen l/abnormal. [facility] CenterAwrnyobSUHPSRGKE1168-55-99 08:50:00 Test Item Value Reference Range Interpretation Comments Glucose Lvl (test code = Glucose Lvl) 79 70-99 N [facility] CenterAykhcsuISZKFWIEQ0463-68-65 08:50:00 Test Item Value Reference Range Interpretation Comments Alk Phos (test code = Alk Phos) 50 39-136 N [facility] CenterThagwmzXDTAHNLPL5982-19-51 08:50:00 Test Item Value Reference Range Interpretation Comments CO2 (test code = CO2) 24 24-32 N [facility] CenterGutuaueJESQFFOHU5639-35-91 08:50:00 Test Item Value Reference Range Interpretation Comments BUN (test code = BUN) 10 7-22 N [facility] CenterCbefohtXMPZLLYEW9595-93-84 08:50:00 Test Item Value Reference Range Interpretation Comments Total Protein (test code = Total 5.6 6.4-8.4 L Protein) [facility] CenterGmmppcePBHWCQZTW7174-09-96 08:50:00 Test Item Value Reference Range Interpretation Comments ALT (test code = ALT) 30 See_Comment N [Auto mated message] The system which ge nerated this result transmit ashanti reference range : <=65. The reference range was not used to interpr et this result as carmen l/abnormal. [facility] CenterGenezhoMOCJSBQFM4907-53-09 08:50:00 Test Item Value Reference Range Interpretation Comments Albumin Lvl (test code = Albumin Lvl) 3.3 3.5-5.0 L [facility] CenterXicliztCYLDRPABR4772-50-62 08:50:00 Test Item Value Reference Range Interpretation Comments eGFR (test code = eGFR) 115 [facility] CenterHyhbkphMFBZHNQAP8179-73-91 08:50:00 Test Item Value Reference Range Interpretation Comments Potassium Lvl (test code = Potassium 3.7 3.5-5.1 N Lvl) [facility] CenterJaimnekIOJKVOFNG9165-62-87 08:50:00 Test Item Value Reference Range Interpretation Comments Sodium Lvl (test code = Sodium Lvl) 144 135-145 N [facility] CenterWdvgebwQUONLVNAH4935-91-97 08:50:00 Test Item Value Reference Range Interpretation Comments Creatinine Lvl (test code = Creatinine 0.7 0.5-1.4 N Lvl) [facility] CenterZxintzgPXJGHHBEY1290-01-95 08:50:00 Test Item Value Reference Range Interpretation Comments Calcium Lvl (test code = Calcium Lvl) 8.3 8.5-10.5 L [facility] CenterBbtpgodRIXMRAESJ5202-03-12 08:50:00 Test Item Value Reference Range Interpretation Comments Chloride Lvl (test code = Chloride Lvl) 108 95-109 N [facility] CenterEeuwfwqAEJZLHZVG2495-30-73 08:50:00 Test Item Value Reference Range Interpretation Comments B/C Ratio (test code = B/C Ratio) 14 6-25 N [facility] CenterRxejzvqYUKDOGHTS3538-58-42 08:50:00 Test Item Value Reference Range Interpretation Comments Globulin (test code = Globulin) 2.3 2.0-4.0 N [facility] CenterEnaqcmrDDLNLBVZV5203-52-48 08:50:00 Test Item Value Reference Range Interpretation Comments AGAP (test code = AGAP) 15.7 10.0-20.0 N [facility] CenterEciksmlISNWIPRCL2252-97-23 08:50:00 Test Item Value Reference Range Interpretation Comments A/G Ratio (test code = A/G Ratio) 1.4 0.7-1.6 N [facility] CenterLqtdugrPAELJAZLDT2817-50-75 08:50:00 Test Item Value Reference Range Interpretation Comments MCHC (test code = MCHC) 32.0 32.0-36.0 N [facility] CenterNdumwouJAFWKLYYBE5018-34-32 08:50:00 Test Item Value Reference Range Interpretation Comments Platelet (test code = Platelet) 229 133-450 N [facility] CenterWedszczHQVJGRDLPV5216-51-26 08:50:00 Test Item Value Reference Range Interpretation Comments MPV (test code = MPV) 9.5 7.4-10.4 N [facility] CenterLgneijeHKYFUVHIZY4865-57-93 08:50:00 Test Item Value Reference Range Interpretation Comments RDW (test code = RDW) 16.3 11.5-14.5 H [facility] CenterCrfnggxATTWNVQHSD5532-64-44 08:50:00 Test Item Value Reference Range Interpretation Comments WBC (test code = WBC) 9.8 3.7-10.4 N [facility] CenterYftmnapXSXKGCHDNQ8890-12-74 08:50:00 Test Item Value Reference Range Interpretation Comments RBC (test code = RBC) 3.57 4.20-5.40 L [facility] CenterLtplbshOOYYAWHYTN8323-99-37 08:50:00 Test Item Value Reference Range Interpretation Comments MCH (test code = MCH) 26.6 pg 27.0-31.0 L [facility] CenterAisfbjaHESQCXNSTM6931-14-91 08:50:00 Test Item Value Reference Range Interpretation Comments Hct (test code = Hct) 29.7 36.0-48.0 L [facility] CenterNwnwymmPLSSCGZTTZ2210-42-00 08:50:00 Test Item Value Reference Range Interpretation Comments MCV (test code = MCV) 83.1 81.0-99.0 N [facility] CenterSlgsogvPRVAABPLVI5005-52-50 08:50:00 Test Item Value Reference Range Interpretation Comments Hgb (test code = Hgb) 9.5 12.0-16.0 L [facility] CenterAhesrkdWUKNLVMKAV5595-39-69 08:50:00 Test Item Value Reference Range Interpretation Comments Anisocyte (test code = 1+ *ABN*(12/12/2012 A Anisocyte) 02:50:00) [facility] CenterPghltltGVCWXKRDEL0331-19-25 08:50:00 Test Item Value Reference Range Interpretation Comments Monocytes # (test code 0.6 See_Comment N [Aut omated message] The = Monocytes #) system which generated this result tra nsmitted reference range : <=0.8. The reference r megan was not used to int erpret this result as normal/abnormal . [facility] CenterFebdirgNMITZKOEKD1666-83-41 08:50:00 Test Item Value Reference Range Interpretation Comments Basophils # (test code 0.1 See_Comment N [Aut omated message] The = Basophils #) system which generated this result tra nsmitted reference range : <=0.2. The reference r megan was not used to int erpret this result as normal/abnormal . [facility] CenterCkvnimcXPAQGOQPHG3902-73-31 08:50:00 Test Item Value Reference Range Interpretation Comments Eosinophils # (test code 0.1 See_Comment N [A utomated message] The = Eosinophils #) system whic h generated this result tra nsmitted reference range : <=0.5. The reference r megan was not used to int erpret this result as normal/abnormal . [facility] CenterJvbvbdrLWTKEZAGUK1518-81-32 08:50:00 Test Item Value Reference Range Interpretation Comments Eosinophils (test code = 1.0 See_Comment N [A utomated message] The Eosinophils) system which ge nerated this result tra nsmitted reference range : <=4.0. The reference r megan was not used to int erpret this result as normal/abnormal . [facility] CenterViphzafZWITPYHVJC3608-31-11 08:50:00 Test Item Value Reference Range Interpretation Comments Monocytes (test code = Monocytes) 6.2 2.0-12.0 N [facility] CenterDipsndkMTHUJQSNMQ9937-78-88 08:50:00 Test Item Value Reference Range Interpretation Comments Basophils (test code = 0.6 See_Comment N [Aut omated message] The Basophils) system which ge nerated this result tra nsmitted reference range : <=1.0. The reference r megan was not used to int erpret this result as normal/abnormal . [facility] CenterZzcxciyTLYTRWQNTW7022-18-30 08:50:00 Test Item Value Reference Range Interpretation Comments Lymphocytes # (test code = Lymphocytes 3.9 1.0-5.5 N #) [facility] CenterAvcwxxbOESDGOMTUO9177-74-88 08:50:00 Test Item Value Reference Range Interpretation Comments Segs-Bands # (test code = Segs-Bands #) 5.1 1.5-8.1 N [facility] CenterEvxbicnXPIIAZKSUZ3484-34-80 08:50:00 Test Item Value Reference Range Interpretation Comments Segs (test code = Segs) 52.6 45.0-75.0 N [facility] CenterHojlcuoKSNVRQDEKH1333-52-88 08:50:00 Test Item Value Reference Range Interpretation Comments Lymphocytes (test code = Lymphocytes) 39.6 20.0-40.0 N [facility] CenterQkoiwlaTBOECEFKDS0166-88-16 08:50:00 Test Item Value Reference Range Interpretation Comments Plt Morph (test code = Normal (12/12/2012 N Plt Morph) 02:50:00) [facility] CenterSgoevqjMHLJPMXKFE8519-34-57 08:50:00 Test Item Value Reference Range Interpretation Comments Lymphocytes # (test code = Lymphocytes 3.9 1.0-5.5 N #) [facility] CenterUuwvsqsXUKSSUIGF8018-48-60 08:50:00 Test Item Value Reference Range Interpretation Comments Bili Total (test code = Bili Total) 0.5 0.2-1.3 N [facility] CenterOsbazvqCYHPUIFHP9497-10-70 08:50:00 Test Item Value Reference Range Interpretation Comments AST (test code = AST) 23 See_Comment N [Auto mated message] The system which ge nerated this result transmit ashanti reference range : <=37. The reference range was not used to interpr et this result as carmen l/abnormal. [facility] CenterWazzoljBDAXUJDOU2494-31-54 08:50:00 Test Item Value Reference Range Interpretation Comments Glucose Lvl (test code = Glucose Lvl) 79 70-99 N [facility] CenterBgjclaxCOHWELVIU1542-91-29 08:50:00 Test Item Value Reference Range Interpretation Comments Alk Phos (test code = Alk Phos) 50 39-136 N [facility] CenterCospbxiFYIDSVZSY4409-69-56 08:50:00 Test Item Value Reference Range Interpretation Comments CO2 (test code = CO2) 24 24-32 N [facility] CenterUuptcnzPLNDNPFWU7192-56-22 08:50:00 Test Item Value Reference Range Interpretation Comments BUN (test code = BUN) 10 7-22 N [facility] CenterYewecnqIZSUIXPQX2975-66-42 08:50:00 Test Item Value Reference Range Interpretation Comments Total Protein (test code = Total 5.6 6.4-8.4 L Protein) [facility] CenterUfoeqdfGYJJMICNM0690-27-11 08:50:00 Test Item Value Reference Range Interpretation Comments ALT (test code = ALT) 30 See_Comment N [Auto mated message] The system which ge nerated this result transmit ashanti reference range : <=65. The reference range was not used to interpr et this result as carmen l/abnormal. [facility] CenterAlnmgtwAIOXHCNKA4247-63-35 08:50:00 Test Item Value Reference Range Interpretation Comments Albumin Lvl (test code = Albumin Lvl) 3.3 3.5-5.0 L [facility] CenterWgnlesrRMNTVPXMV9949-37-88 08:50:00 Test Item Value Reference Range Interpretation Comments eGFR (test code = eGFR) 115 [facility] CenterNpxeybpRCOITJLAL6000-08-00 08:50:00 Test Item Value Reference Range Interpretation Comments Potassium Lvl (test code = Potassium 3.7 3.5-5.1 N Lvl) [facility] CenterOcochpdXHYHXMVSF2676-79-14 08:50:00 Test Item Value Reference Range Interpretation Comments Sodium Lvl (test code = Sodium Lvl) 144 135-145 N [facility] CenterGorftwyTQMISRTTB3461-45-40 08:50:00 Test Item Value Reference Range Interpretation Comments Creatinine Lvl (test code = Creatinine 0.7 0.5-1.4 N Lvl) [facility] CenterDkikipcPCGRIAAMW5340-88-57 08:50:00 Test Item Value Reference Range Interpretation Comments Calcium Lvl (test code = Calcium Lvl) 8.3 8.5-10.5 L [facility] CenterUpngzcqPNWUNOBKY5200-42-86 08:50:00 Test Item Value Reference Range Interpretation Comments Chloride Lvl (test code = Chloride Lvl) 108 95-109 N [facility] CenterEwownfxIBCAWDFJT7948-08-24 08:50:00 Test Item Value Reference Range Interpretation Comments B/C Ratio (test code = B/C Ratio) 14 6-25 N [facility] CenterXffwscmLVDLGHFFK0458-50-15 08:50:00 Test Item Value Reference Range Interpretation Comments Globulin (test code = Globulin) 2.3 2.0-4.0 N [facility] CenterVnsdvbbJSYSYYKMZ4870-27-50 08:50:00 Test Item Value Reference Range Interpretation Comments AGAP (test code = AGAP) 15.7 10.0-20.0 N [facility] CenterIinkqzuUACXYEIOO7750-73-18 08:50:00 Test Item Value Reference Range Interpretation Comments A/G Ratio (test code = A/G Ratio) 1.4 0.7-1.6 N [facility] CenterSrtfcgrBTYYLQCKXC1983-70-42 08:50:00 Test Item Value Reference Range Interpretation Comments MCHC (test code = MCHC) 32.0 32.0-36.0 N [facility] CenterSlxkgduEMDEYBZVSX0483-03-53 08:50:00 Test Item Value Reference Range Interpretation Comments Segs-Bands # (test code = Segs-Bands #) 5.1 1.5-8.1 N [facility] CenterKspywpsXIBLSEIAQI0732-18-76 08:50:00 Test Item Value Reference Range Interpretation Comments Platelet (test code = Platelet) 229 133-450 N [facility] CenterIllobguGCNCXWGGMU1509-90-70 08:50:00 Test Item Value Reference Range Interpretation Comments MPV (test code = MPV) 9.5 7.4-10.4 N [facility] CenterWwojeyeSBRJHOEZOU8212-06-63 08:50:00 Test Item Value Reference Range Interpretation Comments RDW (test code = RDW) 16.3 11.5-14.5 H [facility] CenterBhppknwDNULKLQEOR0360-85-57 08:50:00 Test Item Value Reference Range Interpretation Comments WBC (test code = WBC) 9.8 3.7-10.4 N [facility] CenterQzwvaozCNAIYYMWOP6706-84-59 08:50:00 Test Item Value Reference Range Interpretation Comments RBC (test code = RBC) 3.57 4.20-5.40 L [facility] CenterMsprapeFKWAMCYNRM9701-47-72 08:50:00 Test Item Value Reference Range Interpretation Comments MCH (test code = MCH) 26.6 pg 27.0-31.0 L [facility] CenterXqsxjcaMOQBLRCYXH4881-86-12 08:50:00 Test Item Value Reference Range Interpretation Comments Hct (test code = Hct) 29.7 36.0-48.0 L [facility] CenterDznxmkoYPUVKYEJRK4583-94-45 08:50:00 Test Item Value Reference Range Interpretation Comments MCV (test code = MCV) 83.1 81.0-99.0 N [facility] CenterTpikcahUUPHANERMP3926-98-25 08:50:00 Test Item Value Reference Range Interpretation Comments Hgb (test code = Hgb) 9.5 12.0-16.0 L [facility] CenterDgshtskUTRUZEWJLE9645-37-71 08:50:00 Test Item Value Reference Range Interpretation Comments Anisocyte (test code = 1+ *ABN*(12/12/2012 A Anisocyte) 02:50:00) [facility] CenterBmvuytsUVBYTHAMHO3328-23-64 08:50:00 Test Item Value Reference Range Interpretation Comments Monocytes # (test code 0.6 See_Comment N [Aut omated message] The = Monocytes #) system which generated this result tra nsmitted reference range : <=0.8. The reference r megan was not used to int erpret this result as normal/abnormal . [facility] CenterAfaccgiBHLHBRJSBY2502-33-34 08:50:00 Test Item Value Reference Range Interpretation Comments Basophils # (test code 0.1 See_Comment N [Aut omated message] The = Basophils #) system which generated this result tra nsmitted reference range : <=0.2. The reference r megan was not used to int erpret this result as normal/abnormal . [facility] CenterTsecpenVYFXQYCWZF7064-36-45 08:50:00 Test Item Value Reference Range Interpretation Comments Eosinophils # (test code 0.1 See_Comment N [A utomated message] The = Eosinophils #) system whic h generated this result tra nsmitted reference range : <=0.5. The reference r megan was not used to int erpret this result as normal/abnormal . [facility] CenterAdrzbfnNYKDXQOZFZ0575-10-58 08:50:00 Test Item Value Reference Range Interpretation Comments Eosinophils (test code = 1.0 See_Comment N [A utomated message] The Eosinophils) system which ge nerated this result tra nsmitted reference range : <=4.0. The reference r megan was not used to int erpret this result as normal/abnormal . [facility] CenterRqeajfhMXUPXMUUGQ9621-17-95 08:50:00 Test Item Value Reference Range Interpretation Comments Monocytes (test code = Monocytes) 6.2 2.0-12.0 N [facility] CenterMmvfridNXCJBZLUPR9405-05-54 08:50:00 Test Item Value Reference Range Interpretation Comments Basophils (test code = 0.6 See_Comment N [Aut omated message] The Basophils) system which ge nerated this result tra nsmitted reference range : <=1.0. The reference r megan was not used to int erpret this result as normal/abnormal . [facility] CenterHetppuwPYVBBNSSWH4122-77-08 08:50:00 Test Item Value Reference Range Interpretation Comments Lymphocytes # (test code = Lymphocytes 3.9 1.0-5.5 N #) [facility] CenterMgsrgzbEHRKKBAASS1400-49-14 08:50:00 Test Item Value Reference Range Interpretation Comments Segs-Bands # (test code = Segs-Bands #) 5.1 1.5-8.1 N [facility] CenterEinskmjSOOSUNDRHX1452-11-18 08:50:00 Test Item Value Reference Range Interpretation Comments Segs (test code = Segs) 52.6 45.0-75.0 N [facility] CenterWskgaubLYTRVPFADE7760-21-16 08:50:00 Test Item Value Reference Range Interpretation Comments Lymphocytes (test code = Lymphocytes) 39.6 20.0-40.0 N [facility] CenterYpuandxNKGPYKVVIG5228-75-21 08:50:00 Test Item Value Reference Range Interpretation Comments Plt Morph (test code = Normal (12/12/2012 N Plt Morph) 02:50:00) [facility] CenterXtppklqOWCAOHPHOV7833-31-59 08:50:00 Test Item Value Reference Range Interpretation Comments Segs (test code = Segs) 52.6 45.0-75.0 N [facility] CenterQwzjlvdCYMSEDJOZ9973-99-41 08:50:00 Test Item Value Reference Range Interpretation Comments Bili Total (test code = Bili Total) 0.5 0.2-1.3 N [facility] CenterTacodrpPNRAVSLUC5974-44-11 08:50:00 Test Item Value Reference Range Interpretation Comments AST (test code = AST) 23 See_Comment N [Auto mated message] The system which ge nerated this result transmit ashanti reference range : <=37. The reference range was not used to interpr et this result as carmen l/abnormal. [facility]DmesdyzZWPBGDRVZ3508-85-46 08:50:00 Test Item Value Reference Range Interpretation Comments Bili Total (test code = Bili Total) 0.5 0.2-1.3 N [facility] CenterMebunndJTZFHFXDE2499-45-17 08:50:00 Test Item Value Reference Range Interpretation Comments AST (test code = AST) 23 See_Comment N [Auto mated message] The system which ge nerated this result transmit ashanti reference range : <=37. The reference range was not used to interpr et this result as carmen l/abnormal. [facility] CenterNeqaotjYISPKOEGO9659-93-62 08:50:00 Test Item Value Reference Range Interpretation Comments Glucose Lvl (test code = Glucose Lvl) 79 70-99 N [facility] CenterErrlxssIDICMFRKV4377-32-93 08:50:00 Test Item Value Reference Range Interpretation Comments Alk Phos (test code = Alk Phos) 50 39-136 N [facility] CzzjbgkNBJMMANYT4042-02-15 08:50:00 Test Item Value Reference Range Interpretation Comments CO2 (test code = CO2) 24 24-32 N [facility] CenterZrjuzykBBUHVPMXA9777-14-12 08:50:00 Test Item Value Reference Range Interpretation Comments BUN (test code = BUN) 10 7-22 N [facility] CenterYmdptukNKPELIWQW4815-63-20 08:50:00 Test Item Value Reference Range Interpretation Comments Total Protein (test code = Total 5.6 6.4-8.4 L Protein) [facility] CenterHjxzgboKTSGQHYUV1797-84-41 08:50:00 Test Item Value Reference Range Interpretation Comments ALT (test code = ALT) 30 See_Comment N [Auto mated message] The system which ge nerated this result transmit ashanti reference range : <=65. The reference range was not used to interpr et this result as carmen l/abnormal. [facility] CenterIfvbzifWZYOXTLDA0098-50-39 08:50:00 Test Item Value Reference Range Interpretation Comments Glucose Lvl (test code = Glucose Lvl) 79 70-99 N [facility] CenterLhwlcdmUPTKPLRVY9156-52-48 08:50:00 Test Item Value Reference Range Interpretation Comments Albumin Lvl (test code = Albumin Lvl) 3.3 3.5-5.0 L [facility]IgtfqbrCCGXKJZGL7272-06-78 08:50:00 Test Item Value Reference Range Interpretation Comments eGFR (test code = eGFR) 115 [facility] CenterDokogttXNXXRCOCB3863-34-03 08:50:00 Test Item Value Reference Range Interpretation Comments Potassium Lvl (test code = Potassium 3.7 3.5-5.1 N Lvl) [facility] CenterVlbpsbeXGAGYUBQT9616-74-12 08:50:00 Test Item Value Reference Range Interpretation Comments Sodium Lvl (test code = Sodium Lvl) 144 135-145 N [facility] CenterYsgiuhzIHKYZZQZQ5223-89-55 08:50:00 Test Item Value Reference Range Interpretation Comments Creatinine Lvl (test code = Creatinine 0.7 0.5-1.4 N Lvl) [facility] CenterEipopsgLYMJNYVDE7397-81-53 08:50:00 Test Item Value Reference Range Interpretation Comments Calcium Lvl (test code = Calcium Lvl) 8.3 8.5-10.5 L [facility] CenterZbmorfbEVLIWKVKL1503-41-82 08:50:00 Test Item Value Reference Range Interpretation Comments Chloride Lvl (test code = Chloride Lvl) 108 95-109 N [facility] CenterSjezydcRTSYRIJGZ8781-98-28 08:50:00 Test Item Value Reference Range Interpretation Comments B/C Ratio (test code = B/C Ratio) 14 6-25 N [facility] CenterBseifldWVOVKZWFC5701-88-62 08:50:00 Test Item Value Reference Range Interpretation Comments Globulin (test code = Globulin) 2.3 2.0-4.0 N [facility] CenterRonsfctBBMSINVKL6864-77-74 08:50:00 Test Item Value Reference Range Interpretation Comments AGAP (test code = AGAP) 15.7 10.0-20.0 N [facility] CenterWjafkpvWCCUFJNSJ7092-54-27 08:50:00 Test Item Value Reference Range Interpretation Comments Alk Phos (test code = Alk Phos) 50 39-136 N [facility] CenterKanneuvQRJRACGIG2937-34-96 08:50:00 Test Item Value Reference Range Interpretation Comments A/G Ratio (test code = A/G Ratio) 1.4 0.7-1.6 N [facility] CenterVzalckxTUBYFOVJUF5699-88-89 08:50:00 Test Item Value Reference Range Interpretation Comments MCHC (test code = MCHC) 32.0 32.0-36.0 N [facility]AbmwtekWMGFBCHSGZ2725-30-62 08:50:00 Test Item Value Reference Range Interpretation Comments Platelet (test code = Platelet) 229 133-450 N [facility] CenterMzapmpoXXOUZOQVAR6623-77-37 08:50:00 Test Item Value Reference Range Interpretation Comments MPV (test code = MPV) 9.5 7.4-10.4 N [facility] CenterFqjjghhIMABWTDYEZ3925-77-95 08:50:00 Test Item Value Reference Range Interpretation Comments RDW (test code = RDW) 16.3 11.5-14.5 H [facility] CenterWfkzfldIIFGHYFAWP1838-45-63 08:50:00 Test Item Value Reference Range Interpretation Comments WBC (test code = WBC) 9.8 3.7-10.4 N [facility] CenterLutjfhwIQYFNXKINJ3924-94-17 08:50:00 Test Item Value Reference Range Interpretation Comments RBC (test code = RBC) 3.57 4.20-5.40 L [facility] CenterWtbmbhnDIATWOLHNR9572-51-34 08:50:00 Test Item Value Reference Range Interpretation Comments MCH (test code = MCH) 26.6 pg 27.0-31.0 L [facility] CenterXoubwzeAIUOBJDQPM5793-62-30 08:50:00 Test Item Value Reference Range Interpretation Comments Hct (test code = Hct) 29.7 36.0-48.0 L [facility] CenterUtcsugyKEIYQWYVBU3841-55-91 08:50:00 Test Item Value Reference Range Interpretation Comments MCV (test code = MCV) 83.1 81.0-99.0 N [facility] HospitalRtuaufhFQUFEVYYD5101-28-56 08:50:00 Test Item Value Reference Range Interpretation Comments CO2 (test code = CO2) 24 24-32 N [facility] CenterWktdimlVMMPCAMMIW6060-30-90 08:50:00 Test Item Value Reference Range Interpretation Comments Hgb (test code = Hgb) 9.5 12.0-16.0 L [facility] CenterMarpsvnANBCVIYLMV0733-35-72 08:50:00 Test Item Value Reference Range Interpretation Comments Anisocyte (test code = 1+ *ABN*(12/12/2012 A Anisocyte) 02:50:00) [facility] CenterVgyublkTFXUZDPJQU6934-60-20 08:50:00 Test Item Value Reference Range Interpretation Comments Monocytes # (test code 0.6 See_Comment N [Aut omated message] The = Monocytes #) system which generated this result tra nsmitted reference range : <=0.8. The reference r megan was not used to int erpret this result as normal/abnormal . [facility] CenterUoybawsFZVNQYYMUT3573-36-43 08:50:00 Test Item Value Reference Range Interpretation Comments Basophils # (test code 0.1 See_Comment N [Aut omated message] The = Basophils #) system which generated this result tra nsmitted reference range : <=0.2. The reference r megan was not used to int erpret this result as normal/abnormal . [facility] CenterXwieteoMQXZYFOWCN8931-73-28 08:50:00 Test Item Value Reference Range Interpretation Comments Eosinophils # (test code 0.1 See_Comment N [A utomated message] The = Eosinophils #) system whic h generated this result tra nsmitted reference range : <=0.5. The reference r megan was not used to int erpret this result as normal/abnormal . [facility] CenterYuutofvTJONUNNPNA3985-11-49 08:50:00 Test Item Value Reference Range Interpretation Comments Eosinophils (test code = 1.0 See_Comment N [A utomated message] The Eosinophils) system which ge nerated this result tra nsmitted reference range : <=4.0. The reference r megan was not used to int erpret this result as normal/abnormal . [facility] CenterIxslmdoKSQPDIJEER6901-46-91 08:50:00 Test Item Value Reference Range Interpretation Comments Monocytes (test code = Monocytes) 6.2 2.0-12.0 N [facility] CenterGvzbdnwHVXXJMYOYA8372-16-98 08:50:00 Test Item Value Reference Range Interpretation Comments Basophils (test code = 0.6 See_Comment N [Aut omated message] The Basophils) system which ge nerated this result tra nsmitted reference range : <=1.0. The reference r megan was not used to int erpret this result as normal/abnormal . [facility] CenterYwnhmtfRSPFKJAIVI2085-90-98 08:50:00 Test Item Value Reference Range Interpretation Comments Lymphocytes # (test code = Lymphocytes 3.9 1.0-5.5 N #) [facility] CenterXlxjmihPBMXQFWWGZ6974-66-27 08:50:00 Test Item Value Reference Range Interpretation Comments Segs-Bands # (test code = Segs-Bands #) 5.1 1.5-8.1 N [facility] CenterKkitxwlZAAJCMZEG6834-12-38 08:50:00 Test Item Value Reference Range Interpretation Comments BUN (test code = BUN) 10 7-22 N [facility] CenterTkitlbwUANEFJEFYO6455-64-88 08:50:00 Test Item Value Reference Range Interpretation Comments Segs (test code = Segs) 52.6 45.0-75.0 N [facility] CenterJjdzmrxSJJAAGGYJQ0896-70-78 08:50:00 Test Item Value Reference Range Interpretation Comments Lymphocytes (test code = Lymphocytes) 39.6 20.0-40.0 N [facility] CenterOkoepkaRROIZGKSTO2605-75-02 08:50:00 Test Item Value Reference Range Interpretation Comments Plt Morph (test code = Normal (12/12/2012 N Plt Morph) 02:50:00) [facility] CenterQeqdltcRUTIKEQPEF9832-12-92 08:50:00 Test Item Value Reference Range Interpretation Comments Lymphocytes (test code = Lymphocytes) 39.6 20.0-40.0 N [facility] CenterFmreppbRVCXCEWPA2220-57-05 08:50:00 Test Item Value Reference Range Interpretation Comments Total Protein (test code = Total 5.6 6.4-8.4 L Protein) [facility] CenterVqmfsgmTFXRZXJGF2674-41-83 08:50:00 Test Item Value Reference Range Interpretation Comments ALT (test code = ALT) 30 See_Comment N [Auto mated message] The system which ge nerated this result transmit ashanti reference range : <=65. The reference range was not used to interpr et this result as carmen l/abnormal. [facility] CenterOviuzzhNQHSOFBPQ9227-48-88 08:50:00 Test Item Value Reference Range Interpretation Comments Albumin Lvl (test code = Albumin Lvl) 3.3 3.5-5.0 L [facility] CenterBwwwrxfNGUJGBZTW2995-29-39 08:50:00 Test Item Value Reference Range Interpretation Comments eGFR (test code = eGFR) 115 [facility] CenterQzvhqklVMDUTAKIJ4723-42-31 08:50:00 Test Item Value Reference Range Interpretation Comments Potassium Lvl (test code = Potassium 3.7 3.5-5.1 N Lvl) [facility] CenterLyfvwqbTAWPPZMBP8610-79-20 08:50:00 Test Item Value Reference Range Interpretation Comments Sodium Lvl (test code = Sodium Lvl) 144 135-145 N [facility] CenterDybsyvbPCZNBPLZF2592-02-45 08:50:00 Test Item Value Reference Range Interpretation Comments Creatinine Lvl (test code = Creatinine 0.7 0.5-1.4 N Lvl) [facility] CenterWuqyfbrHMRECNBGV0577-24-58 08:50:00 Test Item Value Reference Range Interpretation Comments Calcium Lvl (test code = Calcium Lvl) 8.3 8.5-10.5 L [facility] CenterOeioucuZYYKTDLCC7084-27-72 08:50:00 Test Item Value Reference Range Interpretation Comments Chloride Lvl (test code = Chloride Lvl) 108 95-109 N [facility] CenterShpriepXNSOYSYZC3410-62-88 08:50:00 Test Item Value Reference Range Interpretation Comments B/C Ratio (test code = B/C Ratio) 14 6-25 N [facility] CenterGjosyapICMJYBMLCF4533-96-32 08:50:00 Test Item Value Reference Range Interpretation Comments Plt Morph (test code = Normal (12/12/2012 N Plt Morph) 02:50:00) [facility] CenterOdvsxyfLYRGFJQMH5807-59-14 08:50:00 Test Item Value Reference Range Interpretation Comments Globulin (test code = Globulin) 2.3 2.0-4.0 N [facility] CenterIgtevzlKDXEUYEAH3094-58-95 08:50:00 Test Item Value Reference Range Interpretation Comments AGAP (test code = AGAP) 15.7 10.0-20.0 N [facility] CenterSzthxddPGLOSGQOQ7067-88-79 08:50:00 Test Item Value Reference Range Interpretation Comments A/G Ratio (test code = A/G Ratio) 1.4 0.7-1.6 N [facility] CenterEwxccrxVVTKRMKER3910-98-98 08:50:00 Test Item Value Reference Range Interpretation Comments Bili Total (test code = Bili Total) 0.5 0.2-1.3 N [facility] CenterQbneumdGJXAYSRHA8103-13-29 08:50:00 Test Item Value Reference Range Interpretation Comments AST (test code = AST) 23 See_Comment N [Auto mated message] The system which ge nerated this result transmit ashanti reference range : <=37. The reference range was not used to interpr et this result as carmen l/abnormal. [facility] CenterNkfcbnpOMLZVSQES3292-72-16 08:50:00 Test Item Value Reference Range Interpretation Comments Glucose Lvl (test code = Glucose Lvl) 79 70-99 N [facility] CenterPjspqnqFXLICGGZK3228-87-90 08:50:00 Test Item Value Reference Range Interpretation Comments Alk Phos (test code = Alk Phos) 50 39-136 N [facility] CenterNoimhssZFVDAXCGC0444-71-52 08:50:00 Test Item Value Reference Range Interpretation Comments CO2 (test code = CO2) 24 24-32 N [facility] CenterNavkvcvAMEHCVCDF2412-88-34 08:50:00 Test Item Value Reference Range Interpretation Comments BUN (test code = BUN) 10 7-22 N [facility] CenterXnoaonjUONHDJZFOU7691-01-33 08:50:00 Test Item Value Reference Range Interpretation Comments MCHC (test code = MCHC) 32.0 32.0-36.0 N [facility] CenterStmxukxNDPDNVQUJ0426-72-70 08:50:00 Test Item Value Reference Range Interpretation Comments Total Protein (test code = Total 5.6 6.4-8.4 L Protein) [facility] CenterChbmeyiPCPIDRDUZ9112-17-58 08:50:00 Test Item Value Reference Range Interpretation Comments ALT (test code = ALT) 30 See_Comment N [Auto mated message] The system which ge nerated this result transmit ashanti reference range : <=65. The reference range was not used to interpr et this result as carmen l/abnormal. [facility] CenterJiuzkrmULDKAIQYV9028-04-41 08:50:00 Test Item Value Reference Range Interpretation Comments Albumin Lvl (test code = Albumin Lvl) 3.3 3.5-5.0 L [facility] CenterNjegqtiXQMRQNYYX8628-04-21 08:50:00 Test Item Value Reference Range Interpretation Comments eGFR (test code = eGFR) 115 [facility] CenterAlxebnqKPFYWOXLU4772-08-53 08:50:00 Test Item Value Reference Range Interpretation Comments Potassium Lvl (test code = Potassium 3.7 3.5-5.1 N Lvl) [facility] CenterRrvfzuzIKHRMPCDQ4006-91-54 08:50:00 Test Item Value Reference Range Interpretation Comments Sodium Lvl (test code = Sodium Lvl) 144 135-145 N [facility] CenterSjekwuqMGNMLKTAI5082-01-45 08:50:00 Test Item Value Reference Range Interpretation Comments Creatinine Lvl (test code = Creatinine 0.7 0.5-1.4 N Lvl) [facility] CenterEkzwgndZPSKQIDZI0683-42-18 08:50:00 Test Item Value Reference Range Interpretation Comments Calcium Lvl (test code = Calcium Lvl) 8.3 8.5-10.5 L [facility] CenterVjfzkuiNVEJHEHCA2330-14-57 08:50:00 Test Item Value Reference Range Interpretation Comments Chloride Lvl (test code = Chloride Lvl) 108 95-109 N [facility] CenterWanfawsAKWRGOYZR0488-59-75 08:50:00 Test Item Value Reference Range Interpretation Comments B/C Ratio (test code = B/C Ratio) 14 6-25 N [facility] CenterRkdstdbOXNKEVMHEU3122-93-84 08:50:00 Test Item Value Reference Range Interpretation Comments Platelet (test code = Platelet) 229 133-450 N [facility] CenterJgcyxhtPLOVYQYHI3169-86-16 08:50:00 Test Item Value Reference Range Interpretation Comments Globulin (test code = Globulin) 2.3 2.0-4.0 N [facility] CenterKlxikalNDAOKJDAM8729-88-56 08:50:00 Test Item Value Reference Range Interpretation Comments AGAP (test code = AGAP) 15.7 10.0-20.0 N [facility] CenterFecpmqkSHUFPWDPR4184-70-75 08:50:00 Test Item Value Reference Range Interpretation Comments A/G Ratio (test code = A/G Ratio) 1.4 0.7-1.6 N [facility] CenterRnrenntGULKGHMLKB2281-67-63 08:50:00 Test Item Value Reference Range Interpretation Comments MCHC (test code = MCHC) 32.0 32.0-36.0 N [facility] CenterZrldtzwFSPIPIQUAP4874-42-30 08:50:00 Test Item Value Reference Range Interpretation Comments Platelet (test code = Platelet) 229 133-450 N [facility] CenterMrnjhsbNNVJOPUHNA7273-51-73 08:50:00 Test Item Value Reference Range Interpretation Comments MPV (test code = MPV) 9.5 7.4-10.4 N [facility] CenterTmoqfpuWPZUQWKYTC0896-26-87 08:50:00 Test Item Value Reference Range Interpretation Comments RDW (test code = RDW) 16.3 11.5-14.5 H [facility] CenterPxqwzxxUTVMPPIFKO9244-93-42 08:50:00 Test Item Value Reference Range Interpretation Comments WBC (test code = WBC) 9.8 3.7-10.4 N [facility] CenterMbsldkrGXFWAAQRLR0525-97-00 08:50:00 Test Item Value Reference Range Interpretation Comments RBC (test code = RBC) 3.57 4.20-5.40 L [facility] CenterTzygbicCDBALPJQHB1124-52-78 08:50:00 Test Item Value Reference Range Interpretation Comments MCH (test code = MCH) 26.6 pg 27.0-31.0 L [facility] CenterUgdmdihWZGUYHNJGI9865-69-30 08:50:00 Test Item Value Reference Range Interpretation Comments MPV (test code = MPV) 9.5 7.4-10.4 N [facility] CenterBsjdpwwAWGZXHPBGW7246-42-46 08:50:00 Test Item Value Reference Range Interpretation Comments Hct (test code = Hct) 29.7 36.0-48.0 L [facility] CenterOzceirfKHJQOVNPZW1162-79-10 08:50:00 Test Item Value Reference Range Interpretation Comments MCV (test code = MCV) 83.1 81.0-99.0 N [facility] CenterWolvqctWSPGNZKQPA7717-96-79 08:50:00 Test Item Value Reference Range Interpretation Comments Hgb (test code = Hgb) 9.5 12.0-16.0 L [facility] CenterPuwtnfmUPLDZJGMKA8773-21-98 08:50:00 Test Item Value Reference Range Interpretation Comments Anisocyte (test code = 1+ *ABN*(12/12/2012 A Anisocyte) 02:50:00) [facility] CenterKltgxulICWUMBFWYW8952-78-43 08:50:00 Test Item Value Reference Range Interpretation Comments Monocytes # (test code 0.6 See_Comment N [Aut omated message] The = Monocytes #) system which generated this result tra nsmitted reference range : <=0.8. The reference r megan was not used to int erpret this result as normal/abnormal . [facility] CenterPqzmtdeAHMJPNJVAV6388-22-73 08:50:00 Test Item Value Reference Range Interpretation Comments Basophils # (test code 0.1 See_Comment N [Aut omated message] The = Basophils #) system which generated this result tra nsmitted reference range : <=0.2. The reference r megan was not used to int erpret this result as normal/abnormal . [facility] CenterOnmscaiXJOFBFBFUJ3894-70-40 08:50:00 Test Item Value Reference Range Interpretation Comments Eosinophils # (test code 0.1 See_Comment N [A utomated message] The = Eosinophils #) system whic h generated this result tra nsmitted reference range : <=0.5. The reference r megan was not used to int erpret this result as normal/abnormal . [facility] CenterJwxxdsiBZSTZHFSYM9320-66-04 08:50:00 Test Item Value Reference Range Interpretation Comments Eosinophils (test code = 1.0 See_Comment N [A utomated message] The Eosinophils) system which ge nerated this result tra nsmitted reference range : <=4.0. The reference r megan was not used to int erpret this result as normal/abnormal . [facility] CenterJurrkltVQZGDZMJST6833-94-86 08:50:00 Test Item Value Reference Range Interpretation Comments Monocytes (test code = Monocytes) 6.2 2.0-12.0 N [facility] CenterNqwcxfhYLIQSZNVRS2353-91-92 08:50:00 Test Item Value Reference Range Interpretation Comments Basophils (test code = 0.6 See_Comment N [Aut omated message] The Basophils) system which ge nerated this result tra nsmitted reference range : <=1.0. The reference r mgean was not used to int erpret this result as normal/abnormal . [facility] CenterWrmxdbdUMLWOGCXTP2087-45-54 08:50:00 Test Item Value Reference Range Interpretation Comments RDW (test code = RDW) 16.3 11.5-14.5 H [facility] CenterHgaagyaWSCVMMYVYI7949-75-96 08:50:00 Test Item Value Reference Range Interpretation Comments Lymphocytes # (test code = Lymphocytes 3.9 1.0-5.5 N #) [facility] CenterFzgkrzvUHPDASVULG2707-10-40 08:50:00 Test Item Value Reference Range Interpretation Comments Segs-Bands # (test code = Segs-Bands #) 5.1 1.5-8.1 N [facility] CenterUrsbclsSNJMZGDJVJ0039-44-28 08:50:00 Test Item Value Reference Range Interpretation Comments Segs (test code = Segs) 52.6 45.0-75.0 N [facility] CenterYobgbxrVRJRRVFPMF8468-11-98 08:50:00 Test Item Value Reference Range Interpretation Comments Lymphocytes (test code = Lymphocytes) 39.6 20.0-40.0 N [facility] CenterTzgbkaaGRAUPUWUEA8374-62-47 08:50:00 Test Item Value Reference Range Interpretation Comments Plt Morph (test code = Normal (12/12/2012 N Plt Morph) 02:50:00) [facility] CenterHmhobpnMSSJKWEUCL7108-55-33 08:50:00 Test Item Value Reference Range Interpretation Comments WBC (test code = WBC) 9.8 3.7-10.4 N [facility] CenterOoymgrhSIVAJWBWWY9650-83-86 08:50:00 Test Item Value Reference Range Interpretation Comments RBC (test code = RBC) 3.57 4.20-5.40 L [facility] CenterTrhzvfnAWAYMIDVXA0753-12-89 08:50:00 Test Item Value Reference Range Interpretation Comments MCH (test code = MCH) 26.6 pg 27.0-31.0 L [facility] CenterAtuxbgrFGPJTQTTFV1818-65-48 08:50:00 Test Item Value Reference Range Interpretation Comments Hct (test code = Hct) 29.7 36.0-48.0 L [facility] CenterHmzmvzkSZKLMUYNWG9713-84-65 08:50:00 Test Item Value Reference Range Interpretation Comments MCV (test code = MCV) 83.1 81.0-99.0 N [facility] CenterRirhsnuJLRZZAQQIG4415-96-59 08:50:00 Test Item Value Reference Range Interpretation Comments Hgb (test code = Hgb) 9.5 12.0-16.0 L [facility] CenterDheedamYUGIWLKASY5839-83-11 08:50:00 Test Item Value Reference Range Interpretation Comments Anisocyte (test code = 1+ *ABN*(12/12/2012 A Anisocyte) 02:50:00) [facility] CenterJxnjxsyDPORPHSVGB2046-17-47 08:50:00 Test Item Value Reference Range Interpretation Comments Monocytes # (test code 0.6 See_Comment N [Aut omated message] The = Monocytes #) system which generated this result tra nsmitted reference range : <=0.8. The reference r megan was not used to int erpret this result as normal/abnormal . [facility] CenterYykkygnUUROQUNOKS4521-21-05 08:50:00 Test Item Value Reference Range Interpretation Comments Basophils # (test code 0.1 See_Comment N [Aut omated message] The = Basophils #) system which generated this result tra nsmitted reference range : <=0.2. The reference r megan was not used to int erpret this result as normal/abnormal . [facility] CenterAiiomkhYQYYOAAQOT2215-10-16 08:50:00 Test Item Value Reference Range Interpretation Comments Eosinophils # (test code 0.1 See_Comment N [A utomated message] The = Eosinophils #) system whic h generated this result tra nsmitted reference range : <=0.5. The reference r megan was not used to int erpret this result as normal/abnormal . [facility] CenterHugsarcHMKYPUHYCQ2767-33-09 08:50:00 Test Item Value Reference Range Interpretation Comments Eosinophils (test code = 1.0 See_Comment N [A utomated message] The Eosinophils) system which ge nerated this result tra nsmitted reference range : <=4.0. The reference r megan was not used to int erpret this result as normal/abnormal . [facility] CenterLailkujVDNKXZJTHD9785-57-82 08:50:00 Test Item Value Reference Range Interpretation Comments Monocytes (test code = Monocytes) 6.2 2.0-12.0 N [facility] CenterRypvlitNPMKWYHZOH9991-78-86 08:50:00 Test Item Value Reference Range Interpretation Comments Basophils (test code = 0.6 See_Comment N [Aut omated message] The Basophils) system which ge nerated this result tra nsmitted reference range : <=1.0. The reference r megan was not used to int erpret this result as normal/abnormal . [facility]TppxcjnLFRUUMFOG1099-12-01 08:50:00 Test Item Value Reference Range Interpretation Comments Bili Total (test code = Bili Total) 0.5 0.2-1.3 N [facility] CenterAxqvawjWRJEDRRGO5079-49-54 08:50:00 Test Item Value Reference Range Interpretation Comments AST (test code = AST) 23 See_Comment N [Auto mated message] The system which ge nerated this result transmit ashanti reference range : <=37. The reference range was not used to interpr et this result as carmen l/abnormal. [facility]BzhjeqaHTACIWZYB7329-95-65 08:50:00 Test Item Value Reference Range Interpretation Comments Glucose Lvl (test code = Glucose Lvl) 79 70-99 N [facility] CenterSietdhjCVITIIGTI1717-34-03 08:50:00 Test Item Value Reference Range Interpretation Comments Alk Phos (test code = Alk Phos) 50 39-136 N [facility] CenterUbzqeoyILRDNXELYT2335-50-66 08:50:00 Test Item Value Reference Range Interpretation Comments Lymphocytes # (test code = Lymphocytes 3.9 1.0-5.5 N #) [facility] CenterVpdyodgDJSFCVXDS4820-02-96 08:50:00 Test Item Value Reference Range Interpretation Comments CO2 (test code = CO2) 24 24-32 N [facility] CenterRflovpuDEGJPSTRW6435-71-67 08:50:00 Test Item Value Reference Range Interpretation Comments BUN (test code = BUN) 10 7-22 N [facility] CenterMaboaihTQWIMCHHT3693-48-50 08:50:00 Test Item Value Reference Range Interpretation Comments Total Protein (test code = Total 5.6 6.4-8.4 L Protein) [facility] CenterKnxratlQFXHBMPWJ7015-95-52 08:50:00 Test Item Value Reference Range Interpretation Comments ALT (test code = ALT) 30 See_Comment N [Auto mated message] The system which ge nerated this result transmit ashanti reference range : <=65. The reference range was not used to interpr et this result as carmen l/abnormal. [facility] CenterBmlumimEPRHHRAJP2853-36-82 08:50:00 Test Item Value Reference Range Interpretation Comments Albumin Lvl (test code = Albumin Lvl) 3.3 3.5-5.0 L [facility] CenterJfslhdkAQACWJJOJ4817-97-90 08:50:00 Test Item Value Reference Range Interpretation Comments eGFR (test code = eGFR) 115 [facility] CenterJbehctnSKLVRBVIG4492-68-81 08:50:00 Test Item Value Reference Range Interpretation Comments Potassium Lvl (test code = Potassium 3.7 3.5-5.1 N Lvl) [facility] CenterEnklbvvFQLMCDSXG5364-28-17 08:50:00 Test Item Value Reference Range Interpretation Comments Sodium Lvl (test code = Sodium Lvl) 144 135-145 N [facility] CenterVjpzcwaOFOYSSVUB4800-84-78 08:50:00 Test Item Value Reference Range Interpretation Comments Creatinine Lvl (test code = Creatinine 0.7 0.5-1.4 N Lvl) [facility] CenterFzxfkcjLUHJETRIM2690-77-59 08:50:00 Test Item Value Reference Range Interpretation Comments Calcium Lvl (test code = Calcium Lvl) 8.3 8.5-10.5 L [facility]NchaehjLQNCAAEDEZ4237-13-86 08:50:00 Test Item Value Reference Range Interpretation Comments Segs-Bands # (test code = Segs-Bands #) 5.1 1.5-8.1 N [facility] CenterStvlmsjXLZSNEXKP0077-91-58 08:50:00 Test Item Value Reference Range Interpretation Comments Chloride Lvl (test code = Chloride Lvl) 108 95-109 N [facility] CenterCezkqmzLPWXTNRGH6343-28-23 08:50:00 Test Item Value Reference Range Interpretation Comments B/C Ratio (test code = B/C Ratio) 14 6-25 N [facility] CenterQasrhkzRYDWCLXBE3304-77-31 08:50:00 Test Item Value Reference Range Interpretation Comments Globulin (test code = Globulin) 2.3 2.0-4.0 N [facility] CenterBuzxtfaTYQQQXVNB9845-05-29 08:50:00 Test Item Value Reference Range Interpretation Comments AGAP (test code = AGAP) 15.7 10.0-20.0 N [facility] CenterNgtzszwLORMSPLJL1684-23-70 08:50:00 Test Item Value Reference Range Interpretation Comments A/G Ratio (test code = A/G Ratio) 1.4 0.7-1.6 N [facility] CenterYmbyebaKVSZFSZRQN5237-23-64 08:50:00 Test Item Value Reference Range Interpretation Comments MCHC (test code = MCHC) 32.0 32.0-36.0 N [facility] CenterFrkzsifDFKXRQJEID9344-89-42 08:50:00 Test Item Value Reference Range Interpretation Comments Platelet (test code = Platelet) 229 133-450 N [facility] CenterNeeudohGHMXBONGIQ1311-09-38 08:50:00 Test Item Value Reference Range Interpretation Comments MPV (test code = MPV) 9.5 7.4-10.4 N [facility] CenterWybtwmtVZASIOSGRL4545-07-46 08:50:00 Test Item Value Reference Range Interpretation Comments RDW (test code = RDW) 16.3 11.5-14.5 H [facility] CenterMblftniICHJNGXQCO2059-25-13 08:50:00 Test Item Value Reference Range Interpretation Comments WBC (test code = WBC) 9.8 3.7-10.4 N [facility] CenterHpbjksrRWWXYOLIWE3303-26-63 08:50:00 Test Item Value Reference Range Interpretation Comments Segs (test code = Segs) 52.6 45.0-75.0 N [facility] CenterOkjyfdqBDSVAGYING6703-38-78 08:50:00 Test Item Value Reference Range Interpretation Comments RBC (test code = RBC) 3.57 4.20-5.40 L [facility] CenterEhhvuceIFLYAWNWWD2084-41-96 08:50:00 Test Item Value Reference Range Interpretation Comments MCH (test code = MCH) 26.6 pg 27.0-31.0 L [facility] CenterSvaguwcHEXCEEOPOD2619-02-36 08:50:00 Test Item Value Reference Range Interpretation Comments Hct (test code = Hct) 29.7 36.0-48.0 L [facility] CenterCnltxpxHGMEQJVAGK1502-26-98 08:50:00 Test Item Value Reference Range Interpretation Comments MCV (test code = MCV) 83.1 81.0-99.0 N [facility] CenterUkztcywHSNYHHCYKP6433-99-25 08:50:00 Test Item Value Reference Range Interpretation Comments Hgb (test code = Hgb) 9.5 12.0-16.0 L [facility] CenterKkkpercKFQOLFURTB0917-05-93 08:50:00 Test Item Value Reference Range Interpretation Comments Anisocyte (test code = 1+ *ABN*(12/12/2012 A Anisocyte) 02:50:00) [facility] CenterSqnklqkARJWBVGFVX6380-48-10 08:50:00 Test Item Value Reference Range Interpretation Comments Monocytes # (test code 0.6 See_Comment N [Aut omated message] The = Monocytes #) system which generated this result tra nsmitted reference range : <=0.8. The reference r megan was not used to int erpret this result as normal/abnormal . [facility] CenterJfqojnhPSWSKWYUCW7451-57-80 08:50:00 Test Item Value Reference Range Interpretation Comments Basophils # (test code 0.1 See_Comment N [Aut omated message] The = Basophils #) system which generated this result tra nsmitted reference range : <=0.2. The reference r meagn was not used to int erpret this result as normal/abnormal . [facility] CenterSmqpytaTTNOMQFRIE8957-87-18 08:50:00 Test Item Value Reference Range Interpretation Comments Eosinophils # (test code 0.1 See_Comment N [A utomated message] The = Eosinophils #) system whic h generated this result tra nsmitted reference range : <=0.5. The reference r megan was not used to int erpret this result as normal/abnormal . [facility] CenterRxnvhlvCZZXNLPPPB1633-32-61 08:50:00 Test Item Value Reference Range Interpretation Comments Eosinophils (test code = 1.0 See_Comment N [A utomated message] The Eosinophils) system which ge nerated this result tra nsmitted reference range : <=4.0. The reference r megan was not used to int erpret this result as normal/abnormal . [facility] CenterHlmexaqRHQOJAKMAV4575-69-37 08:50:00 Test Item Value Reference Range Interpretation Comments Lymphocytes (test code = Lymphocytes) 39.6 20.0-40.0 N [facility] CenterOrikakfEXAYNQRFOK9487-97-52 08:50:00 Test Item Value Reference Range Interpretation Comments Monocytes (test code = Monocytes) 6.2 2.0-12.0 N [facility] CenterLjxiabnTYPOFTUOEE0712-85-59 08:50:00 Test Item Value Reference Range Interpretation Comments Basophils (test code = 0.6 See_Comment N [Aut omated message] The Basophils) system which ge nerated this result tra nsmitted reference range : <=1.0. The reference r megan was not used to int erpret this result as normal/abnormal . [facility] CenterDcgtejoHOKPNCDLKM3899-15-02 08:50:00 Test Item Value Reference Range Interpretation Comments Lymphocytes # (test code = Lymphocytes 3.9 1.0-5.5 N #) [facility] CenterIqwwxkcYPQFSNGGVZ4014-93-86 08:50:00 Test Item Value Reference Range Interpretation Comments Segs-Bands # (test code = Segs-Bands #) 5.1 1.5-8.1 N [facility] CenterAbyrspeZRQDXFLVYP9512-78-08 08:50:00 Test Item Value Reference Range Interpretation Comments Segs (test code = Segs) 52.6 45.0-75.0 N [facility] CenterTdvyskjUUPVHLWEPZ3471-03-70 08:50:00 Test Item Value Reference Range Interpretation Comments Lymphocytes (test code = Lymphocytes) 39.6 20.0-40.0 N [facility] CenterIaaeyguXBADFNHDMO6369-62-08 08:50:00 Test Item Value Reference Range Interpretation Comments Plt Morph (test code = Normal (12/12/2012 N Plt Morph) 02:50:00) [facility] CenterIanlhxpNPSUVXOXUH6117-47-64 08:50:00 Test Item Value Reference Range Interpretation Comments Plt Morph (test code = Normal (12/12/2012 N Plt Morph) 02:50:00) [facility] CenterWvkgcbxQTOBCJFYG1325-21-86 08:50:00 Test Item Value Reference Range Interpretation Comments Bili Total (test code = Bili Total) 0.5 0.2-1.3 N [facility] CenterQhhdoiyNGPHSNCUC8420-82-04 08:50:00 Test Item Value Reference Range Interpretation Comments AST (test code = AST) 23 See_Comment N [Auto mated message] The system which ge nerated this result transmit ashanti reference range : <=37. The reference range was not used to interpr et this result as carmen l/abnormal. [facility] CenterRullvpcPAOBLSIVZ3939-56-85 08:50:00 Test Item Value Reference Range Interpretation Comments Glucose Lvl (test code = Glucose Lvl) 79 70-99 N [facility] CenterUrnlgcrSFEGKOQAA9110-08-01 08:50:00 Test Item Value Reference Range Interpretation Comments Alk Phos (test code = Alk Phos) 50 39-136 N [facility] CenterVhvlnjrRNIAVAOLK5934-33-52 08:50:00 Test Item Value Reference Range Interpretation Comments CO2 (test code = CO2) 24 24-32 N [facility] CenterCukefiwSMFESCKWY7317-04-77 08:50:00 Test Item Value Reference Range Interpretation Comments BUN (test code = BUN) 10 7-22 N [facility] CenterIbbipmdQDYQQUFOD3668-31-39 08:50:00 Test Item Value Reference Range Interpretation Comments Total Protein (test code = Total 5.6 6.4-8.4 L Protein) [facility] CenterBvroohgZJVREJDTB5474-76-06 08:50:00 Test Item Value Reference Range Interpretation Comments ALT (test code = ALT) 30 See_Comment N [Auto mated message] The system which ge nerated this result transmit ashanti reference range : <=65. The reference range was not used to interpr et this result as carmen l/abnormal. [facility] CenterBkjrryqZYORDWLOE9300-99-68 08:50:00 Test Item Value Reference Range Interpretation Comments Albumin Lvl (test code = Albumin Lvl) 3.3 3.5-5.0 L [facility] CenterTksnwkwRCDNTJPJS1969-51-04 08:50:00 Test Item Value Reference Range Interpretation Comments eGFR (test code = eGFR) 115 [facility] CenterLnurvtpPPDUSKJEB4230-31-47 08:50:00 Test Item Value Reference Range Interpretation Comments Potassium Lvl (test code = Potassium 3.7 3.5-5.1 N Lvl) [facility] CenterPlaazviIMPBBMLIP0301-40-27 08:50:00 Test Item Value Reference Range Interpretation Comments Sodium Lvl (test code = Sodium Lvl) 144 135-145 N [facility] CenterDzfjotyHCDAXUHGY7178-59-38 08:50:00 Test Item Value Reference Range Interpretation Comments Creatinine Lvl (test code = Creatinine 0.7 0.5-1.4 N Lvl) [facility] CenterChlxvecLYCVZJFLB0368-55-28 08:50:00 Test Item Value Reference Range Interpretation Comments Calcium Lvl (test code = Calcium Lvl) 8.3 8.5-10.5 L [facility] CenterCdvmhrpEKHNAQRGW7973-48-84 08:50:00 Test Item Value Reference Range Interpretation Comments Chloride Lvl (test code = Chloride Lvl) 108 95-109 N [facility] CenterPbfqlcxTIMXIGJOS2441-53-34 08:50:00 Test Item Value Reference Range Interpretation Comments B/C Ratio (test code = B/C Ratio) 14 6-25 N [facility] CenterSmcyycmPOVWKAYQS1375-73-97 08:50:00 Test Item Value Reference Range Interpretation Comments Globulin (test code = Globulin) 2.3 2.0-4.0 N [facility] CenterWheudedSTDUXNCRW1300-01-37 08:50:00 Test Item Value Reference Range Interpretation Comments AGAP (test code = AGAP) 15.7 10.0-20.0 N [facility] CenterPzhwcywPYOAHVLUR6164-29-06 08:50:00 Test Item Value Reference Range Interpretation Comments A/G Ratio (test code = A/G Ratio) 1.4 0.7-1.6 N [facility] CenterNcbipkzKTNHRZUDQB0526-13-75 08:50:00 Test Item Value Reference Range Interpretation Comments MCHC (test code = MCHC) 32.0 32.0-36.0 N [facility] CenterTkxzntxPKXEJXHKHH4753-96-03 08:50:00 Test Item Value Reference Range Interpretation Comments Platelet (test code = Platelet) 229 133-450 N [facility] CenterXzjkqyqQZDPAPKEBT8394-23-47 08:50:00 Test Item Value Reference Range Interpretation Comments MPV (test code = MPV) 9.5 7.4-10.4 N [facility] CenterLitlgcxCGKLXFSCJI0500-13-71 08:50:00 Test Item Value Reference Range Interpretation Comments RDW (test code = RDW) 16.3 11.5-14.5 H [facility] CenterCpwebjiJPAWMDHREU0428-58-60 08:50:00 Test Item Value Reference Range Interpretation Comments WBC (test code = WBC) 9.8 3.7-10.4 N [facility] CenterHieitcuGDUNENBUDQ9219-15-05 08:50:00 Test Item Value Reference Range Interpretation Comments RBC (test code = RBC) 3.57 4.20-5.40 L [facility] CenterEycmvdcTFDPGRBAED7913-19-81 08:50:00 Test Item Value Reference Range Interpretation Comments MCH (test code = MCH) 26.6 pg 27.0-31.0 L [facility] CenterRgwthceXHLNYYFYIG4068-64-68 08:50:00 Test Item Value Reference Range Interpretation Comments Hct (test code = Hct) 29.7 36.0-48.0 L [facility] CenterIushswcZOQMLDYDKM3031-24-31 08:50:00 Test Item Value Reference Range Interpretation Comments MCV (test code = MCV) 83.1 81.0-99.0 N [facility] CenterHwibdrsBKGUWQBFSD0783-12-81 08:50:00 Test Item Value Reference Range Interpretation Comments Hgb (test code = Hgb) 9.5 12.0-16.0 L [facility] CenterTykqajlQPOQUFEAVF2767-42-33 08:50:00 Test Item Value Reference Range Interpretation Comments Anisocyte (test code = 1+ *ABN*(12/12/2012 A Anisocyte) 02:50:00) [facility] CenterFxjklilGAKHZNVZHJ2100-83-19 08:50:00 Test Item Value Reference Range Interpretation Comments Monocytes # (test code 0.6 See_Comment N [Aut omated message] The = Monocytes #) system which generated this result tra nsmitted reference range : <=0.8. The reference r megan was not used to int erpret this result as normal/abnormal . [facility] CenterKqstauwACGCFSBIVP8515-52-46 08:50:00 Test Item Value Reference Range Interpretation Comments Basophils # (test code 0.1 See_Comment N [Aut omated message] The = Basophils #) system which generated this result tra nsmitted reference range : <=0.2. The reference r megan was not used to int erpret this result as normal/abnormal . [facility] CenterQoziokqGNZOXWBDIN7853-20-62 08:50:00 Test Item Value Reference Range Interpretation Comments Eosinophils # (test code 0.1 See_Comment N [A utomated message] The = Eosinophils #) system whic h generated this result tra nsmitted reference range : <=0.5. The reference r megan was not used to int erpret this result as normal/abnormal . [facility] CenterJunjdnqACITKHUJQL9423-39-93 08:50:00 Test Item Value Reference Range Interpretation Comments Eosinophils (test code = 1.0 See_Comment N [A utomated message] The Eosinophils) system which ge nerated this result tra nsmitted reference range : <=4.0. The reference r megan was not used to int erpret this result as normal/abnormal . [facility] CenterVwjfxigDURPOURWDH9354-12-72 08:50:00 Test Item Value Reference Range Interpretation Comments Monocytes (test code = Monocytes) 6.2 2.0-12.0 N [facility] CenterKehiqxoYYDBFDZHFM5523-63-27 08:50:00 Test Item Value Reference Range Interpretation Comments Basophils (test code = 0.6 See_Comment N [Aut omated message] The Basophils) system which ge nerated this result tra nsmitted reference range : <=1.0. The reference r megan was not used to int erpret this result as normal/abnormal . [facility] CenterPvhajhtDJFIPIXZNF7265-97-19 08:50:00 Test Item Value Reference Range Interpretation Comments Lymphocytes # (test code = Lymphocytes 3.9 1.0-5.5 N #) [facility] CenterJahrhmxOTNJINKPUI6010-27-44 08:50:00 Test Item Value Reference Range Interpretation Comments Segs-Bands # (test code = Segs-Bands #) 5.1 1.5-8.1 N [facility] CenterWjczbmaNUNPOHNMFR8877-10-81 08:50:00 Test Item Value Reference Range Interpretation Comments Segs (test code = Segs) 52.6 45.0-75.0 N [facility] CenterWrygzugJHQLCLHOZU2780-08-55 08:50:00 Test Item Value Reference Range Interpretation Comments Lymphocytes (test code = Lymphocytes) 39.6 20.0-40.0 N [facility] CenterUxkpluuXCRDFZYJPM1059-96-05 08:50:00 Test Item Value Reference Range Interpretation Comments Plt Morph (test code = Normal (12/12/2012 N Plt Morph) 02:50:00) [facility] CenterUiefotuXNZGDWPDZ4840-74-76 08:50:00 Test Item Value Reference Range Interpretation Comments Bili Total (test code = Bili Total) 0.5 0.2-1.3 N [facility] CenterUrxfcbfMOBSLJPGW9491-14-40 08:50:00 Test Item Value Reference Range Interpretation Comments AST (test code = AST) 23 See_Comment N [Auto mated message] The system which ge nerated this result transmit ashanti reference range : <=37. The reference range was not used to interpr et this result as carmen l/abnormal. [facility] CenterAlwnyqgBYPIKNVEW0066-54-74 08:50:00 Test Item Value Reference Range Interpretation Comments Glucose Lvl (test code = Glucose Lvl) 79 70-99 N [facility] CenterYskxwppMQWVWVWWG4715-50-55 08:50:00 Test Item Value Reference Range Interpretation Comments Alk Phos (test code = Alk Phos) 50 39-136 N [facility] CenterWhrravqMPLFOPJPU4004-04-64 08:50:00 Test Item Value Reference Range Interpretation Comments CO2 (test code = CO2) 24 24-32 N [facility] CenterFajmieqUEXGPATTG5161-28-72 08:50:00 Test Item Value Reference Range Interpretation Comments BUN (test code = BUN) 10 7-22 N [facility] CenterTbfoqwoSSWBEUVXX8337-24-59 08:50:00 Test Item Value Reference Range Interpretation Comments Total Protein (test code = Total 5.6 6.4-8.4 L Protein) [facility] CenterMywisbvWUKCGYHUB8410-38-18 08:50:00 Test Item Value Reference Range Interpretation Comments ALT (test code = ALT) 30 See_Comment N [Auto mated message] The system which ge nerated this result transmit ashanti reference range : <=65. The reference range was not used to interpr et this result as carmen l/abnormal. [facility] CenterYebxdzuEEFDEEQDN9518-48-77 08:50:00 Test Item Value Reference Range Interpretation Comments Albumin Lvl (test code = Albumin Lvl) 3.3 3.5-5.0 L [facility] CenterYqvpnswWPHGOCHGW8218-77-32 08:50:00 Test Item Value Reference Range Interpretation Comments eGFR (test code = eGFR) 115 [facility] CenterLqiodgqTHNYQDGMH3828-45-79 08:50:00 Test Item Value Reference Range Interpretation Comments Potassium Lvl (test code = Potassium 3.7 3.5-5.1 N Lvl) [facility] CenterUozcpdbTRJTEOIOE4502-04-86 08:50:00 Test Item Value Reference Range Interpretation Comments Sodium Lvl (test code = Sodium Lvl) 144 135-145 N [facility] CenterGxqjqacCJDHSBBGM2783-18-49 08:50:00 Test Item Value Reference Range Interpretation Comments Creatinine Lvl (test code = Creatinine 0.7 0.5-1.4 N Lvl) [facility] CenterKdoiaauZLVPJINGI6823-72-12 08:50:00 Test Item Value Reference Range Interpretation Comments Calcium Lvl (test code = Calcium Lvl) 8.3 8.5-10.5 L [facility] CenterVqnnwauEHGHNPHSF8242-65-80 08:50:00 Test Item Value Reference Range Interpretation Comments Chloride Lvl (test code = Chloride Lvl) 108 95-109 N [facility] CenterVpknnkmIAGVDGWET2732-55-29 08:50:00 Test Item Value Reference Range Interpretation Comments B/C Ratio (test code = B/C Ratio) 14 6-25 N [facility] CenterKidfvpcJYPXGPEFD7672-05-71 08:50:00 Test Item Value Reference Range Interpretation Comments Globulin (test code = Globulin) 2.3 2.0-4.0 N [facility] CenterCggpuokFJXRYJWMB5871-06-13 08:50:00 Test Item Value Reference Range Interpretation Comments AGAP (test code = AGAP) 15.7 10.0-20.0 N [facility] CenterDgwwajtJTCKZXDDS0133-04-68 08:50:00 Test Item Value Reference Range Interpretation Comments A/G Ratio (test code = A/G Ratio) 1.4 0.7-1.6 N [facility] CenterHnpyhdcQFADGMQAHS4553-16-22 08:50:00 Test Item Value Reference Range Interpretation Comments MCHC (test code = MCHC) 32.0 32.0-36.0 N [facility] CenterKzmxzybHDYINTMBCK2892-27-38 08:50:00 Test Item Value Reference Range Interpretation Comments Platelet (test code = Platelet) 229 133-450 N [facility] CenterNrwiqpoXILGRYRVTJ5590-94-43 08:50:00 Test Item Value Reference Range Interpretation Comments MPV (test code = MPV) 9.5 7.4-10.4 N [facility] CenterGtzgekvVNGZRHJCJO0818-29-53 08:50:00 Test Item Value Reference Range Interpretation Comments RDW (test code = RDW) 16.3 11.5-14.5 H [facility] CenterCvxfimiXWYOHNNECC8256-57-10 08:50:00 Test Item Value Reference Range Interpretation Comments WBC (test code = WBC) 9.8 3.7-10.4 N [facility] CenterZblbshlFQIYRUXPIE7431-15-11 08:50:00 Test Item Value Reference Range Interpretation Comments RBC (test code = RBC) 3.57 4.20-5.40 L [facility] CenterZibzsacKDLWSOKJQL0744-20-50 08:50:00 Test Item Value Reference Range Interpretation Comments MCH (test code = MCH) 26.6 pg 27.0-31.0 L [facility] CenterJdysonkTAYQSCZPMC5406-24-45 08:50:00 Test Item Value Reference Range Interpretation Comments Hct (test code = Hct) 29.7 36.0-48.0 L [facility] CenterJfobjikRXSWOJCTNR0342-01-72 08:50:00 Test Item Value Reference Range Interpretation Comments MCV (test code = MCV) 83.1 81.0-99.0 N [facility] CenterOcfqlkqZOCKBGZRLX2680-73-64 08:50:00 Test Item Value Reference Range Interpretation Comments Hgb (test code = Hgb) 9.5 12.0-16.0 L [facility] CenterVvymgppBFJYVFQJQJ5553-45-93 08:50:00 Test Item Value Reference Range Interpretation Comments Anisocyte (test code = 1+ *ABN*(12/12/2012 A Anisocyte) 02:50:00) [facility] CenterAlzuvgkMDEIJKWGZW1740-82-36 08:50:00 Test Item Value Reference Range Interpretation Comments Monocytes # (test code 0.6 See_Comment N [Aut omated message] The = Monocytes #) system which generated this result tra nsmitted reference range : <=0.8. The reference r megan was not used to int erpret this result as normal/abnormal . [facility] CenterSpdjrmoIYZHHEOUOT9963-53-75 08:50:00 Test Item Value Reference Range Interpretation Comments Basophils # (test code 0.1 See_Comment N [Aut omated message] The = Basophils #) system which generated this result tra nsmitted reference range : <=0.2. The reference r megan was not used to int erpret this result as normal/abnormal . [facility] CenterHtuqqngADJKYPLYWV5265-53-75 08:50:00 Test Item Value Reference Range Interpretation Comments Eosinophils # (test code 0.1 See_Comment N [A utomated message] The = Eosinophils #) system whic h generated this result tra nsmitted reference range : <=0.5. The reference r megan was not used to int erpret this result as normal/abnormal . [facility] CenterVtqfshvHRNCFCWOGD0543-09-92 08:50:00 Test Item Value Reference Range Interpretation Comments Eosinophils (test code = 1.0 See_Comment N [A utomated message] The Eosinophils) system which ge nerated this result tra nsmitted reference range : <=4.0. The reference r megan was not used to int erpret this result as normal/abnormal . [facility] CenterSnkzvelJWIKUSABAN0698-36-95 08:50:00 Test Item Value Reference Range Interpretation Comments Monocytes (test code = Monocytes) 6.2 2.0-12.0 N [facility] CenterQtzeonvMIHIMGRYMV0837-12-36 08:50:00 Test Item Value Reference Range Interpretation Comments Basophils (test code = 0.6 See_Comment N [Aut omated message] The Basophils) system which ge nerated this result tra nsmitted reference range : <=1.0. The reference r megan was not used to int erpret this result as normal/abnormal . [facility] CenterNumeefkONYGYLHYTN9451-73-57 08:50:00 Test Item Value Reference Range Interpretation Comments Lymphocytes # (test code = Lymphocytes 3.9 1.0-5.5 N #) [facility] CenterSwtechuQDHZRLROSK2686-71-75 08:50:00 Test Item Value Reference Range Interpretation Comments Segs-Bands # (test code = Segs-Bands #) 5.1 1.5-8.1 N [facility] CenterApjfetyDZXBHLZSDD6712-10-76 08:50:00 Test Item Value Reference Range Interpretation Comments Segs (test code = Segs) 52.6 45.0-75.0 N [facility] CenterVpucldrYONYSSDCUM4564-74-87 08:50:00 Test Item Value Reference Range Interpretation Comments Lymphocytes (test code = Lymphocytes) 39.6 20.0-40.0 N [facility] CenterKslyotaJFHVCWEKSI9085-24-29 08:50:00 Test Item Value Reference Range Interpretation Comments Plt Morph (test code = Normal (12/12/2012 N Plt Morph) 02:50:00) [facility] CenterVbmquqwYXQJGDWWU4766-10-04 08:50:00 Test Item Value Reference Range Interpretation Comments Bili Total (test code = Bili Total) 0.5 0.2-1.3 N [facility] CenterUagkigdTGHAYMXIV2167-48-73 08:50:00 Test Item Value Reference Range Interpretation Comments AST (test code = AST) 23 See_Comment N [Auto mated message] The system which ge nerated this result transmit ashanti reference range : <=37. The reference range was not used to interpr et this result as carmen l/abnormal. [facility] CenterXuzfygxJLJRFVNDX4346-75-48 08:50:00 Test Item Value Reference Range Interpretation Comments Glucose Lvl (test code = Glucose Lvl) 79 70-99 N [facility] CenterUfnvxalWHNVLSNTF1656-19-46 08:50:00 Test Item Value Reference Range Interpretation Comments Alk Phos (test code = Alk Phos) 50 39-136 N [facility] CenterCpstdocRHIXJGHSC9556-72-14 08:50:00 Test Item Value Reference Range Interpretation Comments CO2 (test code = CO2) 24 24-32 N [facility] CenterNbcqxkqGXLNJSPOB9003-53-30 08:50:00 Test Item Value Reference Range Interpretation Comments BUN (test code = BUN) 10 7-22 N [facility] CenterBkkemjmTOHNQJUXT4623-19-34 08:50:00 Test Item Value Reference Range Interpretation Comments Total Protein (test code = Total 5.6 6.4-8.4 L Protein) [facility] CenterNwbbibxUDTTGBHWW9151-68-60 08:50:00 Test Item Value Reference Range Interpretation Comments ALT (test code = ALT) 30 See_Comment N [Auto mated message] The system which ge nerated this result transmit ashanti reference range : <=65. The reference range was not used to interpr et this result as carmen l/abnormal. [facility] CenterTyeefhfPSCCQNZAI1273-61-34 08:50:00 Test Item Value Reference Range Interpretation Comments Albumin Lvl (test code = Albumin Lvl) 3.3 3.5-5.0 L [facility] CenterFcwrlhiKGIUWVKYA1598-22-17 08:50:00 Test Item Value Reference Range Interpretation Comments eGFR (test code = eGFR) 115 [facility] CenterHxyvxekMDPRNRRVG7972-26-46 08:50:00 Test Item Value Reference Range Interpretation Comments Potassium Lvl (test code = Potassium 3.7 3.5-5.1 N Lvl) [facility]MnakhenMJDIKLYHB6588-86-06 08:50:00 Test Item Value Reference Range Interpretation Comments Sodium Lvl (test code = Sodium Lvl) 144 135-145 N [facility] CenterSfdyofwMFBOWTXYH0874-18-31 08:50:00 Test Item Value Reference Range Interpretation Comments Creatinine Lvl (test code = Creatinine 0.7 0.5-1.4 N Lvl) [facility] CenterGhmfuybPWRNCRXZX5099-95-46 08:50:00 Test Item Value Reference Range Interpretation Comments Calcium Lvl (test code = Calcium Lvl) 8.3 8.5-10.5 L [facility] CenterXvcbpkaTOGPZOWRC1121-61-36 08:50:00 Test Item Value Reference Range Interpretation Comments Chloride Lvl (test code = Chloride Lvl) 108 95-109 N [facility] CenterLarwbsiMHEYBKJLP0675-54-31 08:50:00 Test Item Value Reference Range Interpretation Comments B/C Ratio (test code = B/C Ratio) 14 6-25 N [facility] CenterYtxhzbgBXDVRFJLU3660-71-85 08:50:00 Test Item Value Reference Range Interpretation Comments Globulin (test code = Globulin) 2.3 2.0-4.0 N [facility] CenterAlbjlcnAXACRGFFZ9430-54-19 08:50:00 Test Item Value Reference Range Interpretation Comments AGAP (test code = AGAP) 15.7 10.0-20.0 N [facility] CenterTmofyhsBKGFFXTDZ2439-97-06 08:50:00 Test Item Value Reference Range Interpretation Comments A/G Ratio (test code = A/G Ratio) 1.4 0.7-1.6 N [facility]BkybgabGIQMSGWCAX4117-85-95 08:50:00 Test Item Value Reference Range Interpretation Comments MCHC (test code = MCHC) 32.0 32.0-36.0 N [facility] CenterNtlprhiUPFXOQBHLP8387-77-87 08:50:00 Test Item Value Reference Range Interpretation Comments Platelet (test code = Platelet) 229 133-450 N [facility] CenterStohcxiPECCNLBGDN3174-62-86 08:50:00 Test Item Value Reference Range Interpretation Comments MPV (test code = MPV) 9.5 7.4-10.4 N [facility] CenterPuhxtsgUMGPTYQLYU5883-99-94 08:50:00 Test Item Value Reference Range Interpretation Comments RDW (test code = RDW) 16.3 11.5-14.5 H [facility] CenterPrylwvhTYWDGZIUSG3915-58-85 08:50:00 Test Item Value Reference Range Interpretation Comments WBC (test code = WBC) 9.8 3.7-10.4 N [facility] CenterBebawlrWTAMEHDPGG2157-20-05 08:50:00 Test Item Value Reference Range Interpretation Comments RBC (test code = RBC) 3.57 4.20-5.40 L [facility] CenterYdziiiaHVHROJHYRA6807-99-58 08:50:00 Test Item Value Reference Range Interpretation Comments MCH (test code = MCH) 26.6 pg 27.0-31.0 L [facility] CenterTdqnlboYAOICXNRQA0321-08-48 08:50:00 Test Item Value Reference Range Interpretation Comments Hct (test code = Hct) 29.7 36.0-48.0 L [facility] CenterXwzrqztJWBYSDVMPV7140-89-23 08:50:00 Test Item Value Reference Range Interpretation Comments MCV (test code = MCV) 83.1 81.0-99.0 N [facility] CenterJwbdekcYDTXLSRBIK0221-18-94 08:50:00 Test Item Value Reference Range Interpretation Comments Hgb (test code = Hgb) 9.5 12.0-16.0 L [facility] CenterNgsodqbQXRLZAQTPW6884-35-44 08:50:00 Test Item Value Reference Range Interpretation Comments Anisocyte (test code = 1+ *ABN*(12/12/2012 A Anisocyte) 02:50:00) [facility] CenterKqkmbflJJKMLGXPRK2354-38-91 08:50:00 Test Item Value Reference Range Interpretation Comments Monocytes # (test code 0.6 See_Comment N [Aut omated message] The = Monocytes #) system which generated this result tra nsmitted reference range : <=0.8. The reference r megan was not used to int erpret this result as normal/abnormal . [facility] CenterEagphwxTEGVMKHRKI0145-11-00 08:50:00 Test Item Value Reference Range Interpretation Comments Basophils # (test code 0.1 See_Comment N [Aut omated message] The = Basophils #) system which generated this result tra nsmitted reference range : <=0.2. The reference r megan was not used to int erpret this result as normal/abnormal . [facility] CenterFmzjurpVQMZNBLWQQ9070-99-14 08:50:00 Test Item Value Reference Range Interpretation Comments Eosinophils # (test code 0.1 See_Comment N [A utomated message] The = Eosinophils #) system whic h generated this result tra nsmitted reference range : <=0.5. The reference r megan was not used to int erpret this result as normal/abnormal . [facility] CenterOdeidciJXBFIPSVGN0938-27-11 08:50:00 Test Item Value Reference Range Interpretation Comments Eosinophils (test code = 1.0 See_Comment N [A utomated message] The Eosinophils) system which ge nerated this result tra nsmitted reference range : <=4.0. The reference r megan was not used to int erpret this result as normal/abnormal . [facility] CenterZchwnvbMWECFLUQXL4621-35-90 08:50:00 Test Item Value Reference Range Interpretation Comments Monocytes (test code = Monocytes) 6.2 2.0-12.0 N [facility] CenterAuofofiQRFCBZEELX3117-16-42 08:50:00 Test Item Value Reference Range Interpretation Comments Basophils (test code = 0.6 See_Comment N [Aut omated message] The Basophils) system which ge nerated this result tra nsmitted reference range : <=1.0. The reference r megan was not used to int erpret this result as normal/abnormal . [facility] CenterBdehwoiCAXGEGMYSA7335-53-21 08:50:00 Test Item Value Reference Range Interpretation Comments Lymphocytes # (test code = Lymphocytes 3.9 1.0-5.5 N #) [facility] CenterDnpbbznWCVXUIUDNE8471-52-82 08:50:00 Test Item Value Reference Range Interpretation Comments Segs-Bands # (test code = Segs-Bands #) 5.1 1.5-8.1 N [facility] CenterMzllqqbYYUXAQXWPE5767-68-89 08:50:00 Test Item Value Reference Range Interpretation Comments Segs (test code = Segs) 52.6 45.0-75.0 N [facility] CenterFrplcgfVSXSHGXPUL8048-12-68 08:50:00 Test Item Value Reference Range Interpretation Comments Lymphocytes (test code = Lymphocytes) 39.6 20.0-40.0 N [facility] CenterMoaexoaVUZKCPSVZK6670-13-32 08:50:00 Test Item Value Reference Range Interpretation Comments Plt Morph (test code = Normal (12/12/2012 N Plt Morph) 02:50:00) [facility] CenterQtawndhSTVGSLUOF4733-70-29 08:50:00 Test Item Value Reference Range Interpretation Comments Bili Total (test code = Bili Total) 0.5 0.2-1.3 N [facility] CenterAsfjqzvKMBMWTYUS6368-54-54 08:50:00 Test Item Value Reference Range Interpretation Comments AST (test code = AST) 23 See_Comment N [Auto mated message] The system which ge nerated this result transmit ashanti reference range : <=37. The reference range was not used to interpr et this result as carmen l/abnormal. [facility] XumxfkzMJHPSOKQY0347-54-29 08:50:00 Test Item Value Reference Range Interpretation Comments Glucose Lvl (test code = Glucose Lvl) 79 70-99 N [facility] TtzlcwiQFXBYIRXZ8849-58-10 08:50:00 Test Item Value Reference Range Interpretation Comments Alk Phos (test code = Alk Phos) 50 39-136 N [facility] XptuabzBRYSJQINC1702-69-95 08:50:00 Test Item Value Reference Range Interpretation Comments CO2 (test code = CO2) 24 24-32 N [facility] OmathhyVYKGVMMJY1352-70-66 08:50:00 Test Item Value Reference Range Interpretation Comments BUN (test code = BUN) 10 7-22 N [facility]ShsvlwyOOZHOJFKT2854-76-99 08:50:00 Test Item Value Reference Range Interpretation Comments Total Protein (test code = Total 5.6 6.4-8.4 L Protein) [facility] CenterCogifzfTZLDMCRUR5351-06-98 08:50:00 Test Item Value Reference Range Interpretation Comments ALT (test code = ALT) 30 See_Comment N [Auto mated message] The system which ge nerated this result transmit ashanti reference range : <=65. The reference range was not used to interpr et this result as carmen l/abnormal. [facility] VrofcxiCTXMRWOXN9432-73-52 08:50:00 Test Item Value Reference Range Interpretation Comments Albumin Lvl (test code = Albumin Lvl) 3.3 3.5-5.0 L [facility] LljzgrzBGWROGRZM2610-54-15 08:50:00 Test Item Value Reference Range Interpretation Comments eGFR (test code = eGFR) 115 [facility] CenterCndydirXASTDYECV8237-33-03 08:50:00 Test Item Value Reference Range Interpretation Comments Potassium Lvl (test code = Potassium 3.7 3.5-5.1 N Lvl) [facility]QtzmwjfCVBKMKCOD9488-15-75 08:50:00 Test Item Value Reference Range Interpretation Comments Sodium Lvl (test code = Sodium Lvl) 144 135-145 N [facility] CenterSoguybyEOSTNWKZQ8402-20-63 08:50:00 Test Item Value Reference Range Interpretation Comments Creatinine Lvl (test code = Creatinine 0.7 0.5-1.4 N Lvl) [facility] CenterMvdqkhmCEQLAGSJV4200-52-10 08:50:00 Test Item Value Reference Range Interpretation Comments Calcium Lvl (test code = Calcium Lvl) 8.3 8.5-10.5 L [facility] CenterAhmqskaNNXIVVOPL3612-76-76 08:50:00 Test Item Value Reference Range Interpretation Comments Chloride Lvl (test code = Chloride Lvl) 108 95-109 N [facility] CenterGuexdgdZSBRJESXQ8003-05-85 08:50:00 Test Item Value Reference Range Interpretation Comments B/C Ratio (test code = B/C Ratio) 14 6-25 N [facility] CenterOgtuqweHMHFLUASZ5333-05-21 08:50:00 Test Item Value Reference Range Interpretation Comments Globulin (test code = Globulin) 2.3 2.0-4.0 N [facility] CenterUzclcbxMYSUXXKVR3599-48-05 08:50:00 Test Item Value Reference Range Interpretation Comments AGAP (test code = AGAP) 15.7 10.0-20.0 N [facility] CenterQysnfjfAEEJJFVTT9120-79-39 08:50:00 Test Item Value Reference Range Interpretation Comments A/G Ratio (test code = A/G Ratio) 1.4 0.7-1.6 N [facility] CenterLpciekzMYBOQSBCPP4322-48-25 08:50:00 Test Item Value Reference Range Interpretation Comments MCHC (test code = MCHC) 32.0 32.0-36.0 N [facility] CenterQcjfkoaDWBQXKKKUA6447-39-94 08:50:00 Test Item Value Reference Range Interpretation Comments Platelet (test code = Platelet) 229 133-450 N [facility] CenterYsrbkxnKBRRMNQSIL2421-26-92 08:50:00 Test Item Value Reference Range Interpretation Comments MPV (test code = MPV) 9.5 7.4-10.4 N [facility] CenterJkpkkxxXBCWWYUDET0966-64-69 08:50:00 Test Item Value Reference Range Interpretation Comments RDW (test code = RDW) 16.3 11.5-14.5 H [facility] CenterMeyvbmaDIFKZVUGYL4563-04-63 08:50:00 Test Item Value Reference Range Interpretation Comments WBC (test code = WBC) 9.8 3.7-10.4 N [facility] CenterBgmiabrFYCCBYBVZN2324-39-68 08:50:00 Test Item Value Reference Range Interpretation Comments RBC (test code = RBC) 3.57 4.20-5.40 L [facility] CenterHbbhvrsHKVGELVUDE2386-66-21 08:50:00 Test Item Value Reference Range Interpretation Comments MCH (test code = MCH) 26.6 pg 27.0-31.0 L [facility] CenterAclmtjmUQSNMAJGUR3299-69-09 08:50:00 Test Item Value Reference Range Interpretation Comments Hct (test code = Hct) 29.7 36.0-48.0 L [facility] CenterDmpjajtCTTRRDRCPT0193-44-60 08:50:00 Test Item Value Reference Range Interpretation Comments MCV (test code = MCV) 83.1 81.0-99.0 N [facility] CenterIejftdvEXUCZPYTTP1110-03-67 08:50:00 Test Item Value Reference Range Interpretation Comments Hgb (test code = Hgb) 9.5 12.0-16.0 L [facility] CenterUnvsdzgVILMOSYSMU9094-04-92 08:50:00 Test Item Value Reference Range Interpretation Comments Anisocyte (test code = 1+ *ABN*(12/12/2012 A Anisocyte) 02:50:00) [facility] CenterQwwndllOMLFVLXIJV8465-46-81 08:50:00 Test Item Value Reference Range Interpretation Comments Monocytes # (test code 0.6 See_Comment N [Aut omated message] The = Monocytes #) system which generated this result tra nsmitted reference range : <=0.8. The reference r megan was not used to int erpret this result as normal/abnormal . [facility] CenterXpubehyQAPPVIPOGM0059-57-61 08:50:00 Test Item Value Reference Range Interpretation Comments Basophils # (test code 0.1 See_Comment N [Aut omated message] The = Basophils #) system which generated this result tra nsmitted reference range : <=0.2. The reference r megan was not used to int erpret this result as normal/abnormal . [facility] CenterYikdkqwIXGDSGFXVP3226-76-12 08:50:00 Test Item Value Reference Range Interpretation Comments Eosinophils # (test code 0.1 See_Comment N [A utomated message] The = Eosinophils #) system whic h generated this result tra nsmitted reference range : <=0.5. The reference r megan was not used to int erpret this result as normal/abnormal . [facility] CenterGubcfrzKTTWHLKRDU6912-16-78 08:50:00 Test Item Value Reference Range Interpretation Comments Eosinophils (test code = 1.0 See_Comment N [A utomated message] The Eosinophils) system which ge nerated this result tra nsmitted reference range : <=4.0. The reference r megan was not used to int erpret this result as normal/abnormal . [facility] CenterRtncbbeUVMAMHOYFP9746-62-90 08:50:00 Test Item Value Reference Range Interpretation Comments Monocytes (test code = Monocytes) 6.2 2.0-12.0 N [facility] CenterTrdrllbGEZZBUCVWT0560-25-24 08:50:00 Test Item Value Reference Range Interpretation Comments Basophils (test code = 0.6 See_Comment N [Aut omated message] The Basophils) system which ge nerated this result tra nsmitted reference range : <=1.0. The reference r megan was not used to int erpret this result as normal/abnormal . [facility] CenterTpvqxiuCAGGXERXPM5930-46-37 08:50:00 Test Item Value Reference Range Interpretation Comments Lymphocytes # (test code = Lymphocytes 3.9 1.0-5.5 N #) [facility] CenterJmqhamlEFJFUVYMQH7826-01-60 08:50:00 Test Item Value Reference Range Interpretation Comments Segs-Bands # (test code = Segs-Bands #) 5.1 1.5-8.1 N [facility] CenterQksaqteADYMGQELNL9989-24-24 08:50:00 Test Item Value Reference Range Interpretation Comments Segs (test code = Segs) 52.6 45.0-75.0 N [facility] CenterQttmderACIQDZKDOW8302-88-54 08:50:00 Test Item Value Reference Range Interpretation Comments Lymphocytes (test code = Lymphocytes) 39.6 20.0-40.0 N [facility] CenterIpoagnuEACYOAIPSO0678-14-63 08:50:00 Test Item Value Reference Range Interpretation Comments Plt Morph (test code = Normal (12/12/2012 N Plt Morph) 02:50:00) [facility] CenterRzcygxiUZFRVDHID2023-88-56 08:50:00 Test Item Value Reference Range Interpretation Comments Bili Total (test code = Bili Total) 0.5 0.2-1.3 N [facility] CenterXmiojovSVQCJQZNO3225-82-25 08:50:00 Test Item Value Reference Range Interpretation Comments AST (test code = AST) 23 See_Comment N [Auto mated message] The system which ge nerated this result transmit ashanti reference range : <=37. The reference range was not used to interpr et this result as carmen l/abnormal. [facility] CenterPfzmmfhGDURUYGXZ7668-36-43 08:50:00 Test Item Value Reference Range Interpretation Comments Glucose Lvl (test code = Glucose Lvl) 79 70-99 N [facility] CenterDgxjklqOQDQXQPBP2034-16-22 08:50:00 Test Item Value Reference Range Interpretation Comments Alk Phos (test code = Alk Phos) 50 39-136 N [facility] CenterKmflobeNYCUPKARZ5092-32-71 08:50:00 Test Item Value Reference Range Interpretation Comments CO2 (test code = CO2) 24 24-32 N [facility] CenterSwyfaacEFGIOXESL0047-87-53 08:50:00 Test Item Value Reference Range Interpretation Comments BUN (test code = BUN) 10 7-22 N [facility] CenterBvsguaxQMDSEFIBF3361-96-94 08:50:00 Test Item Value Reference Range Interpretation Comments Total Protein (test code = Total 5.6 6.4-8.4 L Protein) [facility] CenterCegafydFQWLZBMON3129-17-21 08:50:00 Test Item Value Reference Range Interpretation Comments ALT (test code = ALT) 30 See_Comment N [Auto mated message] The system which ge nerated this result transmit ashanti reference range : <=65. The reference range was not used to interpr et this result as carmen l/abnormal. [facility] CenterMrlcwvaQJEFNTSZR5442-16-59 08:50:00 Test Item Value Reference Range Interpretation Comments Albumin Lvl (test code = Albumin Lvl) 3.3 3.5-5.0 L [facility] CenterEbvvzfjWMANEADPC9831-19-73 08:50:00 Test Item Value Reference Range Interpretation Comments eGFR (test code = eGFR) 115 [facility] CenterVccaeanBUXUEFCGJ6383-10-21 08:50:00 Test Item Value Reference Range Interpretation Comments Potassium Lvl (test code = Potassium 3.7 3.5-5.1 N Lvl) [facility] CenterAyyeztiFJCXUOZSF5335-67-65 08:50:00 Test Item Value Reference Range Interpretation Comments Sodium Lvl (test code = Sodium Lvl) 144 135-145 N [facility] CenterYdsctyaXYFXVDNLV7270-64-17 08:50:00 Test Item Value Reference Range Interpretation Comments Creatinine Lvl (test code = Creatinine 0.7 0.5-1.4 N Lvl) [facility] CenterEbgtzidJMUCBINMQ0914-85-48 08:50:00 Test Item Value Reference Range Interpretation Comments Calcium Lvl (test code = Calcium Lvl) 8.3 8.5-10.5 L [facility] CenterPlkiuxtDJVWZXYZF3901-42-55 08:50:00 Test Item Value Reference Range Interpretation Comments Chloride Lvl (test code = Chloride Lvl) 108 95-109 N [facility] CenterVmosrurVPFBCDNYC4800-84-05 08:50:00 Test Item Value Reference Range Interpretation Comments B/C Ratio (test code = B/C Ratio) 14 6-25 N [facility] CenterPmoikydNYRIXFCFR9273-85-18 08:50:00 Test Item Value Reference Range Interpretation Comments Globulin (test code = Globulin) 2.3 2.0-4.0 N [facility] CenterQjmjqteGBDGTZJSH5125-15-60 08:50:00 Test Item Value Reference Range Interpretation Comments AGAP (test code = AGAP) 15.7 10.0-20.0 N [facility] CenterLjqjqzyWLBDXNCZJ8096-01-02 08:50:00 Test Item Value Reference Range Interpretation Comments A/G Ratio (test code = A/G Ratio) 1.4 0.7-1.6 N [facility] CenterKfyzegmGNUMSQFKLE1011-95-92 08:50:00 Test Item Value Reference Range Interpretation Comments MCHC (test code = MCHC) 32.0 32.0-36.0 N [facility] CenterSbonclcRERIKOVKLF3225-71-97 08:50:00 Test Item Value Reference Range Interpretation Comments Platelet (test code = Platelet) 229 133-450 N [facility] CenterGtarvuqUYCCXQHGAQ7770-69-68 08:50:00 Test Item Value Reference Range Interpretation Comments MPV (test code = MPV) 9.5 7.4-10.4 N [facility] CenterPiurzgnINUCRGCTZR6066-60-07 08:50:00 Test Item Value Reference Range Interpretation Comments RDW (test code = RDW) 16.3 11.5-14.5 H [facility] CenterDkchlxmPTVHXFKPUM9162-41-56 08:50:00 Test Item Value Reference Range Interpretation Comments WBC (test code = WBC) 9.8 3.7-10.4 N [facility] CenterDdnqqgjAYBZQRWSJO9214-71-78 08:50:00 Test Item Value Reference Range Interpretation Comments RBC (test code = RBC) 3.57 4.20-5.40 L [facility] CenterGyozpdiRHULYGSFZC6640-58-17 08:50:00 Test Item Value Reference Range Interpretation Comments MCH (test code = MCH) 26.6 pg 27.0-31.0 L [facility] CenterNpaapaoDDDIKXJWXE3949-17-94 08:50:00 Test Item Value Reference Range Interpretation Comments Hct (test code = Hct) 29.7 36.0-48.0 L [facility] CenterGblcozaFVWGDMWGCB0890-25-37 08:50:00 Test Item Value Reference Range Interpretation Comments MCV (test code = MCV) 83.1 81.0-99.0 N [facility] CenterGdmhsqhNZQQGADOYI6095-17-22 08:50:00 Test Item Value Reference Range Interpretation Comments Hgb (test code = Hgb) 9.5 12.0-16.0 L [facility] CenterKjgymukWRNYEOXQQV7143-85-85 08:50:00 Test Item Value Reference Range Interpretation Comments Anisocyte (test code = 1+ *ABN*(12/12/2012 A Anisocyte) 02:50:00) [facility] CenterUetcbgsOHTJXRAGDQ2080-03-79 08:50:00 Test Item Value Reference Range Interpretation Comments Monocytes # (test code 0.6 See_Comment N [Aut omated message] The = Monocytes #) system which generated this result tra nsmitted reference range : <=0.8. The reference r megan was not used to int erpret this result as normal/abnormal . [facility] CenterWtzfoyxXTKSXWIMVM5203-86-01 08:50:00 Test Item Value Reference Range Interpretation Comments Basophils # (test code 0.1 See_Comment N [Aut omated message] The = Basophils #) system which generated this result tra nsmitted reference range : <=0.2. The reference r megan was not used to int erpret this result as normal/abnormal . [facility] CenterErbwgnjORUCGICXFU9508-74-57 08:50:00 Test Item Value Reference Range Interpretation Comments Eosinophils # (test code 0.1 See_Comment N [A utomated message] The = Eosinophils #) system whic h generated this result tra nsmitted reference range : <=0.5. The reference r megan was not used to int erpret this result as normal/abnormal . [facility] CenterCblwhhkOQUUJXCDMQ9572-98-66 08:50:00 Test Item Value Reference Range Interpretation Comments Eosinophils (test code = 1.0 See_Comment N [A utomated message] The Eosinophils) system which ge nerated this result tra nsmitted reference range : <=4.0. The reference r megan was not used to int erpret this result as normal/abnormal . [facility] CenterGusfgyuRIPKBRBSMH7611-74-80 08:50:00 Test Item Value Reference Range Interpretation Comments Monocytes (test code = Monocytes) 6.2 2.0-12.0 N [facility] CenterBibhsxeXNGPCSEVLX2075-12-59 08:50:00 Test Item Value Reference Range Interpretation Comments Basophils (test code = 0.6 See_Comment N [Aut omated message] The Basophils) system which ge nerated this result tra nsmitted reference range : <=1.0. The reference r megan was not used to int erpret this result as normal/abnormal . [facility] CenterSzokosgAQBDHBMYCB7634-13-57 08:50:00 Test Item Value Reference Range Interpretation Comments Lymphocytes # (test code = Lymphocytes 3.9 1.0-5.5 N #) [facility] CenterZwjmvskQYVKVWLJMG4280-40-56 08:50:00 Test Item Value Reference Range Interpretation Comments Segs-Bands # (test code = Segs-Bands #) 5.1 1.5-8.1 N [facility] CenterWooxbbvBUHNTGJQBL6799-65-36 08:50:00 Test Item Value Reference Range Interpretation Comments Segs (test code = Segs) 52.6 45.0-75.0 N [facility] CenterPznfdilUEMSSJZJYB5544-05-01 08:50:00 Test Item Value Reference Range Interpretation Comments Lymphocytes (test code = Lymphocytes) 39.6 20.0-40.0 N [facility] CenterOndtzxwVWVTLVMOVH4013-31-65 08:50:00 Test Item Value Reference Range Interpretation Comments Plt Morph (test code = Normal (12/12/2012 N Plt Morph) 02:50:00) [facility] CenterDfnnquiTLAGLHEPW4225-62-25 08:50:00 Test Item Value Reference Range Interpretation Comments Bili Total (test code = Bili Total) 0.5 0.2-1.3 N [facility] CenterQwxjgzpSUJQEJYQI8420-91-07 08:50:00 Test Item Value Reference Range Interpretation Comments AST (test code = AST) 23 See_Comment N [Auto mated message] The system which ge nerated this result transmit ashanti reference range : <=37. The reference range was not used to interpr et this result as carmen l/abnormal. [facility] CenterXvqnnlmWDMCWVQIH2276-55-70 08:50:00 Test Item Value Reference Range Interpretation Comments Glucose Lvl (test code = Glucose Lvl) 79 70-99 N [facility] CenterPhwifoxTIOWEAXUA6488-60-53 08:50:00 Test Item Value Reference Range Interpretation Comments Alk Phos (test code = Alk Phos) 50 39-136 N [facility] CenterBmxnfdwKPHAMANJU5550-11-04 08:50:00 Test Item Value Reference Range Interpretation Comments CO2 (test code = CO2) 24 24-32 N [facility] CenterOtkhphgKEHCXQTSE2412-68-76 08:50:00 Test Item Value Reference Range Interpretation Comments BUN (test code = BUN) 10 7-22 N [facility] CenterUpddexfNMDOMVAVK4820-38-19 08:50:00 Test Item Value Reference Range Interpretation Comments Total Protein (test code = Total 5.6 6.4-8.4 L Protein) [facility] CenterRflpcdwVUUUVJMVB8517-75-90 08:50:00 Test Item Value Reference Range Interpretation Comments ALT (test code = ALT) 30 See_Comment N [Auto mated message] The system which ge nerated this result transmit ashanti reference range : <=65. The reference range was not used to interpr et this result as carmen l/abnormal. [facility] CenterPwqcbpiQUAQQWMAT5150-87-98 08:50:00 Test Item Value Reference Range Interpretation Comments Albumin Lvl (test code = Albumin Lvl) 3.3 3.5-5.0 L [facility] CenterLrqhjljGZZPSYSGN7036-68-09 08:50:00 Test Item Value Reference Range Interpretation Comments eGFR (test code = eGFR) 115 [facility] CenterXaltyrmOYTQVAKIV5387-16-43 08:50:00 Test Item Value Reference Range Interpretation Comments Potassium Lvl (test code = Potassium 3.7 3.5-5.1 N Lvl) [facility] CenterUwuzrehDWATDPHPR0802-29-37 08:50:00 Test Item Value Reference Range Interpretation Comments Sodium Lvl (test code = Sodium Lvl) 144 135-145 N [facility] CenterKcxarttZCWBDTXFT4026-04-14 08:50:00 Test Item Value Reference Range Interpretation Comments Creatinine Lvl (test code = Creatinine 0.7 0.5-1.4 N Lvl) [facility]QtbnsgyGSRJBSKVV9079-31-29 08:50:00 Test Item Value Reference Range Interpretation Comments Calcium Lvl (test code = Calcium Lvl) 8.3 8.5-10.5 L [facility] CenterVtrxbcfBFPWBLVDK9996-50-03 08:50:00 Test Item Value Reference Range Interpretation Comments Chloride Lvl (test code = Chloride Lvl) 108 95-109 N [facility] CenterFxltwjqVRTCNFWBN1153-42-26 08:50:00 Test Item Value Reference Range Interpretation Comments B/C Ratio (test code = B/C Ratio) 14 6-25 N [facility] CenterWanjwzzEFKSZALKX8163-73-91 08:50:00 Test Item Value Reference Range Interpretation Comments Globulin (test code = Globulin) 2.3 2.0-4.0 N [facility] CenterDziyulbWMBHJYJTI4881-63-38 08:50:00 Test Item Value Reference Range Interpretation Comments AGAP (test code = AGAP) 15.7 10.0-20.0 N [facility] CenterQorqwlvQRROLZOPK9003-78-40 08:50:00 Test Item Value Reference Range Interpretation Comments A/G Ratio (test code = A/G Ratio) 1.4 0.7-1.6 N [facility]NgzcatgTANOLYZZHZ5657-95-67 08:50:00 Test Item Value Reference Range Interpretation Comments MCHC (test code = MCHC) 32.0 32.0-36.0 N [facility] CenterIeujkmnZNYETURGCT8314-97-29 08:50:00 Test Item Value Reference Range Interpretation Comments Platelet (test code = Platelet) 229 133-450 N [facility] CenterUjfwgpkCIBTAPLWFB5859-58-16 08:50:00 Test Item Value Reference Range Interpretation Comments MPV (test code = MPV) 9.5 7.4-10.4 N [facility] CenterKvxfkvcHCZONEHOJQ4074-70-18 08:50:00 Test Item Value Reference Range Interpretation Comments RDW (test code = RDW) 16.3 11.5-14.5 H [facility] CenterIqlesjjPDYUFZKSXN7059-03-98 08:50:00 Test Item Value Reference Range Interpretation Comments WBC (test code = WBC) 9.8 3.7-10.4 N [facility] CenterRekiueuZTWJDLEAUR3503-42-35 08:50:00 Test Item Value Reference Range Interpretation Comments RBC (test code = RBC) 3.57 4.20-5.40 L [facility] CenterClonkvwUVAYSCXQON4440-62-41 08:50:00 Test Item Value Reference Range Interpretation Comments MCH (test code = MCH) 26.6 pg 27.0-31.0 L [facility] CenterJoxwdxeVWZLZBEVXU7504-37-90 08:50:00 Test Item Value Reference Range Interpretation Comments Hct (test code = Hct) 29.7 36.0-48.0 L [facility] CenterSfarjfmGELVGSQFUD1413-25-41 08:50:00 Test Item Value Reference Range Interpretation Comments MCV (test code = MCV) 83.1 81.0-99.0 N [facility] CenterYxrieehFZFBBEWNLG6481-59-74 08:50:00 Test Item Value Reference Range Interpretation Comments Hgb (test code = Hgb) 9.5 12.0-16.0 L [facility] CenterChypbddIWRNXGULYV3763-09-88 08:50:00 Test Item Value Reference Range Interpretation Comments Anisocyte (test code = 1+ *ABN*(12/12/2012 A Anisocyte) 02:50:00) [facility] CenterLjbkmruEZRVDCOGBS2587-80-93 08:50:00 Test Item Value Reference Range Interpretation Comments Monocytes # (test code 0.6 See_Comment N [Aut omated message] The = Monocytes #) system which generated this result tra nsmitted reference range : <=0.8. The reference r megan was not used to int erpret this result as normal/abnormal . [facility] CenterFqvbiexMCCNLTGIZE0178-61-33 08:50:00 Test Item Value Reference Range Interpretation Comments Basophils # (test code 0.1 See_Comment N [Aut omated message] The = Basophils #) system which generated this result tra nsmitted reference range : <=0.2. The reference r megan was not used to int erpret this result as normal/abnormal . [facility] CenterYszrblaNVILYGTONO3634-94-62 08:50:00 Test Item Value Reference Range Interpretation Comments Eosinophils # (test code 0.1 See_Comment N [A utomated message] The = Eosinophils #) system whic h generated this result tra nsmitted reference range : <=0.5. The reference r megan was not used to int erpret this result as normal/abnormal . [facility] CenterXqodhjtZMOFVTTAPM4979-03-39 08:50:00 Test Item Value Reference Range Interpretation Comments Eosinophils (test code = 1.0 See_Comment N [A utomated message] The Eosinophils) system which ge nerated this result tra nsmitted reference range : <=4.0. The reference r megan was not used to int erpret this result as normal/abnormal . [facility] CenterWhmczxeEKKAZAXAPG8667-61-09 08:50:00 Test Item Value Reference Range Interpretation Comments Monocytes (test code = Monocytes) 6.2 2.0-12.0 N [facility] CenterWrxcceqKWIYTUJSHM4719-67-86 08:50:00 Test Item Value Reference Range Interpretation Comments Basophils (test code = 0.6 See_Comment N [Aut omated message] The Basophils) system which ge nerated this result tra nsmitted reference range : <=1.0. The reference r megan was not used to int erpret this result as normal/abnormal . [facility] CenterIuzfbagXPSYNLCTHD2092-42-14 08:50:00 Test Item Value Reference Range Interpretation Comments Lymphocytes # (test code = Lymphocytes 3.9 1.0-5.5 N #) [facility] CenterXwcbzgnSSHFWFUXQG8490-83-22 08:50:00 Test Item Value Reference Range Interpretation Comments Segs-Bands # (test code = Segs-Bands #) 5.1 1.5-8.1 N [facility] CenterZczvhqiIZVVLYODMJ6680-54-14 08:50:00 Test Item Value Reference Range Interpretation Comments Segs (test code = Segs) 52.6 45.0-75.0 N [facility] CenterEfayixcSNPHVROVIR9685-73-37 08:50:00 Test Item Value Reference Range Interpretation Comments Lymphocytes (test code = Lymphocytes) 39.6 20.0-40.0 N [facility] CenterExpbbktDXARAMQAXK8720-47-20 08:50:00 Test Item Value Reference Range Interpretation Comments Plt Morph (test code = Normal (12/12/2012 N Plt Morph) 02:50:00) [facility] CenterTelongvIXJETYFAN3230-64-92 08:50:00 Test Item Value Reference Range Interpretation Comments Bili Total (test code = Bili Total) 0.5 0.2-1.3 N [facility] CenterUzkmcohYMQBBUZWO8768-25-72 08:50:00 Test Item Value Reference Range Interpretation Comments AST (test code = AST) 23 <=37 N [facility] CenterOldancaKIRVHHCQU1824-80-46 08:50:00 Test Item Value Reference Range Interpretation Comments Glucose Lvl (test code = Glucose Lvl) 79 70-99 N [facility] CenterZrssokhOLGTNIBUD4288-00-00 08:50:00 Test Item Value Reference Range Interpretation Comments Alk Phos (test code = Alk Phos) 50 39-136 N [facility] CenterErpvebwDMJLZHVWU3500-36-27 08:50:00 Test Item Value Reference Range Interpretation Comments CO2 (test code = CO2) 24 24-32 N [facility] CenterAiotmcoZGQIVFUUK3931-57-62 08:50:00 Test Item Value Reference Range Interpretation Comments BUN (test code = BUN) 10 7-22 N [facility] CenterDcgrdlqIDVMMOTOO6512-55-42 08:50:00 Test Item Value Reference Range Interpretation Comments Total Protein (test code = Total 5.6 6.4-8.4 L Protein) [facility] CenterEelrchdHQWJEGTTG7265-11-48 08:50:00 Test Item Value Reference Range Interpretation Comments ALT (test code = ALT) 30 <=65 N [facility] CenterJdbkkkaGTGLXDQBW8175-67-69 08:50:00 Test Item Value Reference Range Interpretation Comments Albumin Lvl (test code = Albumin Lvl) 3.3 3.5-5.0 L [facility] CenterHrnpxxtHUFACZXRB6729-51-45 08:50:00 Test Item Value Reference Range Interpretation Comments eGFR (test code = eGFR) 115 [facility] CenterSzutkhvDMCTUVDIS9984-74-31 08:50:00 Test Item Value Reference Range Interpretation Comments Potassium Lvl (test code = Potassium 3.7 3.5-5.1 N Lvl) [facility] CenterJablxylCGKUXQLML1149-50-60 08:50:00 Test Item Value Reference Range Interpretation Comments Sodium Lvl (test code = Sodium Lvl) 144 135-145 N [facility] CenterCtvdrteJCVMTGMMP5908-20-80 08:50:00 Test Item Value Reference Range Interpretation Comments Creatinine Lvl (test code = Creatinine 0.7 0.5-1.4 N Lvl) [facility] CenterMtgclxvPHAHOQMMZ9905-25-46 08:50:00 Test Item Value Reference Range Interpretation Comments Calcium Lvl (test code = Calcium Lvl) 8.3 8.5-10.5 L [facility] CenterOwzpmeiVGGXQHMLD3810-08-88 08:50:00 Test Item Value Reference Range Interpretation Comments Chloride Lvl (test code = Chloride Lvl) 108 95-109 N [facility] CenterWxcauniBXGOHBNAU8635-99-08 08:50:00 Test Item Value Reference Range Interpretation Comments B/C Ratio (test code = B/C Ratio) 14 6-25 N [facility] CenterUwgoxubHXQONCRKR6719-18-35 08:50:00 Test Item Value Reference Range Interpretation Comments Globulin (test code = Globulin) 2.3 2.0-4.0 N [facility] CenterPnmdfowXAKIYBHQO1186-99-76 08:50:00 Test Item Value Reference Range Interpretation Comments AGAP (test code = AGAP) 15.7 10.0-20.0 N [facility] CenterBbhajdfIDPGWFSOP4637-44-13 08:50:00 Test Item Value Reference Range Interpretation Comments A/G Ratio (test code = A/G Ratio) 1.4 0.7-1.6 N [facility] CenterEfjifkqFNYTROBZNW6084-54-79 08:50:00 Test Item Value Reference Range Interpretation Comments MCHC (test code = MCHC) 32.0 32.0-36.0 N [facility] CenterFyxkhrfOOHTZGNXJK9632-67-64 08:50:00 Test Item Value Reference Range Interpretation Comments Platelet (test code = Platelet) 229 133-450 N [facility] CenterHthemulCHIWGBWMNY0539-12-47 08:50:00 Test Item Value Reference Range Interpretation Comments MPV (test code = MPV) 9.5 7.4-10.4 N [facility] CenterNwgclrjFWEJLAYOSS6410-43-67 08:50:00 Test Item Value Reference Range Interpretation Comments RDW (test code = RDW) 16.3 11.5-14.5 H [facility] CenterPlvzxyqRKXPQEDBOA2910-32-09 08:50:00 Test Item Value Reference Range Interpretation Comments WBC (test code = WBC) 9.8 3.7-10.4 N [facility] CenterTsrkpatBBUUEGSTGJ7132-64-92 08:50:00 Test Item Value Reference Range Interpretation Comments RBC (test code = RBC) 3.57 4.20-5.40 L [facility] CenterLjmqxgsDRYSQTODPR6217-18-03 08:50:00 Test Item Value Reference Range Interpretation Comments MCH (test code = MCH) 26.6 pg 27.0-31.0 L [facility] CenterXmpjgtjBCXHQXGFHK9409-81-80 08:50:00 Test Item Value Reference Range Interpretation Comments Hct (test code = Hct) 29.7 36.0-48.0 L [facility] CenterVabqcvqCKRINIVFBQ8771-63-53 08:50:00 Test Item Value Reference Range Interpretation Comments MCV (test code = MCV) 83.1 81.0-99.0 N [facility] CenterZavnvtsJSOHMWJUTD1970-26-97 08:50:00 Test Item Value Reference Range Interpretation Comments Hgb (test code = Hgb) 9.5 12.0-16.0 L [facility] CenterAxevpljZKVPXLDXTT7521-72-27 08:50:00 Test Item Value Reference Range Interpretation Comments Anisocyte (test code = 1+ *ABN*(12/12/2012 A Anisocyte) 02:50:00) [facility] CenterCfrxvkoACIKLLPWVE4810-34-07 08:50:00 Test Item Value Reference Range Interpretation Comments Monocytes # (test code = Monocytes #) 0.6 <=0.8 N [facility] CenterOkmvklzFJAQZGTRWB3031-04-91 08:50:00 Test Item Value Reference Range Interpretation Comments Basophils # (test code = Basophils #) 0.1 <=0.2 N [facility] CenterPjgxgmqBYUEDQRZBY9137-14-15 08:50:00 Test Item Value Reference Range Interpretation Comments Eosinophils # (test code = Eosinophils 0.1 <=0.5 N #) [facility] CenterJglegnpKJANBWJWQU1829-44-95 08:50:00 Test Item Value Reference Range Interpretation Comments Eosinophils (test code = Eosinophils) 1.0 <=4.0 N [facility] CenterZszaagbZVXWFXZPNR9493-12-31 08:50:00 Test Item Value Reference Range Interpretation Comments Monocytes (test code = Monocytes) 6.2 2.0-12.0 N [facility] CenterMsevltoLIGVPUHBQE7127-38-87 08:50:00 Test Item Value Reference Range Interpretation Comments Basophils (test code = Basophils) 0.6 <=1.0 N [facility] CenterNwrsckpQHIYWHRWDU1790-85-51 08:50:00 Test Item Value Reference Range Interpretation Comments Lymphocytes # (test code = Lymphocytes 3.9 1.0-5.5 N #) [facility] CenterNlyobdfPWRIXTJYES1623-13-14 08:50:00 Test Item Value Reference Range Interpretation Comments Segs-Bands # (test code = Segs-Bands #) 5.1 1.5-8.1 N [facility] CenterOoavfklPQQXJUVUNC0029-09-56 08:50:00 Test Item Value Reference Range Interpretation Comments Segs (test code = Segs) 52.6 45.0-75.0 N [facility] CenterHttqcofYFHIGPZEMM0152-05-16 08:50:00 Test Item Value Reference Range Interpretation Comments Lymphocytes (test code = Lymphocytes) 39.6 20.0-40.0 N [facility] CenterKwbuofyVQYODYXSMN3965-93-76 08:50:00 Test Item Value Reference Range Interpretation Comments Plt Morph (test code = Normal (12/12/2012 N Plt Morph) 02:50:00) [facility] CenterAhywhkqPJMZBSCCD9103-76-22 08:50:00 Test Item Value Reference Range Interpretation Comments Bili Total (test code = Bili Total) 0.5 0.2-1.3 N [facility] CenterDmwayaoRNYDPSYYD2380-36-75 08:50:00 Test Item Value Reference Range Interpretation Comments AST (test code = AST) 23 See_Comment N [Auto mated message] The system which ge nerated this result transmit ashanti reference range : <=37. The reference range was not used to interpr et this result as carmen l/abnormal. [facility] CenterLlvvavtRVMQRJXNZ8693-73-80 08:50:00 Test Item Value Reference Range Interpretation Comments Bili Total (test code = Bili Total) 0.5 0.2-1.3 N [facility] CenterDquetdtCFPEDOOBG5850-17-27 08:50:00 Test Item Value Reference Range Interpretation Comments AST (test code = AST) 23 <=37 N [facility] CenterSiwyrbrSZPROPAFP7238-51-87 08:50:00 Test Item Value Reference Range Interpretation Comments Glucose Lvl (test code = Glucose Lvl) 79 70-99 N [facility] CenterVqbjrenTQGGECOLQ0801-69-24 08:50:00 Test Item Value Reference Range Interpretation Comments Alk Phos (test code = Alk Phos) 50 39-136 N [facility] CenterJkqspnkLJHKYRSXR2024-41-30 08:50:00 Test Item Value Reference Range Interpretation Comments CO2 (test code = CO2) 24 24-32 N [facility] CenterOaaqlhoAELEELZDR4185-17-90 08:50:00 Test Item Value Reference Range Interpretation Comments BUN (test code = BUN) 10 7-22 N [facility] CenterLdzejzzTHKWZBOLW0004-24-22 08:50:00 Test Item Value Reference Range Interpretation Comments Total Protein (test code = Total 5.6 6.4-8.4 L Protein) [facility] CenterAhbdujwSXTCBIKIE7336-49-34 08:50:00 Test Item Value Reference Range Interpretation Comments ALT (test code = ALT) 30 <=65 N [facility] CenterAcvrgosNYLTPDQNM3494-72-28 08:50:00 Test Item Value Reference Range Interpretation Comments Glucose Lvl (test code = Glucose Lvl) 79 70-99 N [facility] CenterGsqseorBNWUMSIVJ8155-10-04 08:50:00 Test Item Value Reference Range Interpretation Comments Albumin Lvl (test code = Albumin Lvl) 3.3 3.5-5.0 L [facility] CenterQigwracLQGVIWLWJ5871-34-14 08:50:00 Test Item Value Reference Range Interpretation Comments eGFR (test code = eGFR) 115 [facility] CenterOmeokgcPEIJSEXXN4277-15-86 08:50:00 Test Item Value Reference Range Interpretation Comments Potassium Lvl (test code = Potassium 3.7 3.5-5.1 N Lvl) [facility] CenterSgyzeadBJTQLIEYK8397-58-54 08:50:00 Test Item Value Reference Range Interpretation Comments Sodium Lvl (test code = Sodium Lvl) 144 135-145 N [facility] CenterFvwogciYBZBOAHGM2738-20-50 08:50:00 Test Item Value Reference Range Interpretation Comments Creatinine Lvl (test code = Creatinine 0.7 0.5-1.4 N Lvl) [facility] CenterZzknqkzSEOZTCOPK4493-62-77 08:50:00 Test Item Value Reference Range Interpretation Comments Calcium Lvl (test code = Calcium Lvl) 8.3 8.5-10.5 L [facility] CenterDklyxehOTZEXBHND7543-91-69 08:50:00 Test Item Value Reference Range Interpretation Comments Chloride Lvl (test code = Chloride Lvl) 108 95-109 N [facility] CenterNrbihueMYTBHIQKQ8803-79-21 08:50:00 Test Item Value Reference Range Interpretation Comments B/C Ratio (test code = B/C Ratio) 14 6-25 N [facility] CenterNhqqlorOTSUNTPPI5521-19-51 08:50:00 Test Item Value Reference Range Interpretation Comments Globulin (test code = Globulin) 2.3 2.0-4.0 N [facility] CenterVihagrdSSKQNLYEW4423-87-44 08:50:00 Test Item Value Reference Range Interpretation Comments AGAP (test code = AGAP) 15.7 10.0-20.0 N [facility] CenterBgswcziIUKJDGCRY9445-77-89 08:50:00 Test Item Value Reference Range Interpretation Comments Alk Phos (test code = Alk Phos) 50 39-136 N [facility] CenterHuwpkohVSBTTNSUI5135-85-16 08:50:00 Test Item Value Reference Range Interpretation Comments A/G Ratio (test code = A/G Ratio) 1.4 0.7-1.6 N [facility] CenterUakjpoqUZKKGXMQLY8210-48-39 08:50:00 Test Item Value Reference Range Interpretation Comments MCHC (test code = MCHC) 32.0 32.0-36.0 N [facility] CenterNbwllteMXGUKLUSRN9291-32-11 08:50:00 Test Item Value Reference Range Interpretation Comments Platelet (test code = Platelet) 229 133-450 N [facility] CenterTyhetxoVRIXEMHUTG3763-25-58 08:50:00 Test Item Value Reference Range Interpretation Comments MPV (test code = MPV) 9.5 7.4-10.4 N [facility] CenterKkrrdooFGGZUQOYXY9869-80-35 08:50:00 Test Item Value Reference Range Interpretation Comments RDW (test code = RDW) 16.3 11.5-14.5 H [facility] CenterTlgccbeIBBRLUJJLN1005-13-98 08:50:00 Test Item Value Reference Range Interpretation Comments WBC (test code = WBC) 9.8 3.7-10.4 N [facility] CenterTbqdvjjAFMYJHHGZM9360-08-20 08:50:00 Test Item Value Reference Range Interpretation Comments RBC (test code = RBC) 3.57 4.20-5.40 L [facility] CenterFxyexfmCDYRRBEMAY6459-50-76 08:50:00 Test Item Value Reference Range Interpretation Comments MCH (test code = MCH) 26.6 pg 27.0-31.0 L [facility] CenterMxyeycbJJBRLYOJXF4037-89-73 08:50:00 Test Item Value Reference Range Interpretation Comments Hct (test code = Hct) 29.7 36.0-48.0 L [facility] CenterZhrxtgdWKASWOKBEN4818-78-13 08:50:00 Test Item Value Reference Range Interpretation Comments MCV (test code = MCV) 83.1 81.0-99.0 N [facility] CenterGonqfqoIESZOFFJC2370-64-78 08:50:00 Test Item Value Reference Range Interpretation Comments CO2 (test code = CO2) 24 24-32 N [facility] CenterHwvyhpsOQNCBUEJPR1832-59-34 08:50:00 Test Item Value Reference Range Interpretation Comments Hgb (test code = Hgb) 9.5 12.0-16.0 L [facility] CenterNivimrlJYUPABWNIB3361-84-94 08:50:00 Test Item Value Reference Range Interpretation Comments Anisocyte (test code = 1+ *ABN*(12/12/2012 A Anisocyte) 02:50:00) [facility] CenterNidgrmiUAJIDSSRUX5746-59-56 08:50:00 Test Item Value Reference Range Interpretation Comments Monocytes # (test code = Monocytes #) 0.6 <=0.8 N [facility] CenterZrkmyrbQDSEUZCVYU5346-64-04 08:50:00 Test Item Value Reference Range Interpretation Comments Basophils # (test code = Basophils #) 0.1 <=0.2 N [facility] CenterXcbpwniEQNSHSBOBG9500-04-28 08:50:00 Test Item Value Reference Range Interpretation Comments Eosinophils # (test code = Eosinophils 0.1 <=0.5 N #) [facility] CenterSnqmlwzZJZPZFRKLE4609-30-37 08:50:00 Test Item Value Reference Range Interpretation Comments Eosinophils (test code = Eosinophils) 1.0 <=4.0 N [facility] CenterDsfjpfoGCBLQRKVZT9452-02-11 08:50:00 Test Item Value Reference Range Interpretation Comments Monocytes (test code = Monocytes) 6.2 2.0-12.0 N [facility] CenterMssrznyMFBHTVQWET4509-81-20 08:50:00 Test Item Value Reference Range Interpretation Comments Basophils (test code = Basophils) 0.6 <=1.0 N [facility] CenterQqgznhpIWOCWYPFPA6836-36-72 08:50:00 Test Item Value Reference Range Interpretation Comments Lymphocytes # (test code = Lymphocytes 3.9 1.0-5.5 N #) [facility] CenterJiuwunzVZOIMEJMXS1456-87-69 08:50:00 Test Item Value Reference Range Interpretation Comments Segs-Bands # (test code = Segs-Bands #) 5.1 1.5-8.1 N [facility] CenterPetryoqMLUNCDXUD3515-83-09 08:50:00 Test Item Value Reference Range Interpretation Comments BUN (test code = BUN) 10 7-22 N [facility] CenterMjxzijfCGQTISEAZA6587-68-43 08:50:00 Test Item Value Reference Range Interpretation Comments Segs (test code = Segs) 52.6 45.0-75.0 N [facility] CenterMzapxfnZPKHCXZWFS5266-77-61 08:50:00 Test Item Value Reference Range Interpretation Comments Lymphocytes (test code = Lymphocytes) 39.6 20.0-40.0 N [facility] CenterWhkaplgNFGPIYYQAL7105-16-30 08:50:00 Test Item Value Reference Range Interpretation Comments Plt Morph (test code = Normal (12/12/2012 N Plt Morph) 02:50:00) [facility] CenterAuwahwxBWPALRMZS9869-72-98 08:50:00 Test Item Value Reference Range Interpretation Comments Total Protein (test code = Total 5.6 6.4-8.4 L Protein) [facility] CenterRyoenalWAFDTJMSR7654-78-76 08:50:00 Test Item Value Reference Range Interpretation Comments ALT (test code = ALT) 30 See_Comment N [Auto mated message] The system which ge nerated this result transmit ashanti reference range : <=65. The reference range was not used to interpr et this result as carmen l/abnormal. [facility] CenterOqeczxoUOUNBJVMJ0337-03-61 08:50:00 Test Item Value Reference Range Interpretation Comments Albumin Lvl (test code = Albumin Lvl) 3.3 3.5-5.0 L [facility] CenterAviffgqUJRLRRKGW7371-13-79 08:50:00 Test Item Value Reference Range Interpretation Comments eGFR (test code = eGFR) 115 [facility] CenterDrtkjocMGUELJSPS0042-37-88 08:50:00 Test Item Value Reference Range Interpretation Comments Potassium Lvl (test code = Potassium 3.7 3.5-5.1 N Lvl) [facility] CenterQdtiiymNUUGVBFNL9835-50-81 08:50:00 Test Item Value Reference Range Interpretation Comments Sodium Lvl (test code = Sodium Lvl) 144 135-145 N [facility] CenterUfddtixQLLTGEWBV8358-25-97 08:50:00 Test Item Value Reference Range Interpretation Comments Creatinine Lvl (test code = Creatinine 0.7 0.5-1.4 N Lvl) [facility] CenterGteczurOBXNJZLUS2155-05-74 08:50:00 Test Item Value Reference Range Interpretation Comments Calcium Lvl (test code = Calcium Lvl) 8.3 8.5-10.5 L [facility] CenterOqugfqvCHMKWQZPX5934-73-92 08:50:00 Test Item Value Reference Range Interpretation Comments Chloride Lvl (test code = Chloride Lvl) 108 95-109 N [facility] CenterJxmvwpnDJGLNEMWO1255-55-35 08:50:00 Test Item Value Reference Range Interpretation Comments B/C Ratio (test code = B/C Ratio) 14 6-25 N [facility] CenterTipnjgbRLYRURHVP7592-03-41 08:50:00 Test Item Value Reference Range Interpretation Comments Globulin (test code = Globulin) 2.3 2.0-4.0 N [facility] CenterVmrhatyWQOBSKOXN1633-31-42 08:50:00 Test Item Value Reference Range Interpretation Comments AGAP (test code = AGAP) 15.7 10.0-20.0 N [facility] CenterBktwgphWQFVKVHRB7395-19-94 08:50:00 Test Item Value Reference Range Interpretation Comments A/G Ratio (test code = A/G Ratio) 1.4 0.7-1.6 N [facility] CenterFouthpxSPUEUSKBT6063-13-98 08:50:00 Test Item Value Reference Range Interpretation Comments Bili Total (test code = Bili Total) 0.5 0.2-1.3 N [facility] CenterNzliiafFCHRNTEZJ6951-19-60 08:50:00 Test Item Value Reference Range Interpretation Comments AST (test code = AST) 23 <=37 N [facility] CenterHldhqjuTAWTRDVFO3415-48-65 08:50:00 Test Item Value Reference Range Interpretation Comments Glucose Lvl (test code = Glucose Lvl) 79 70-99 N [facility] CenterFdmrojyJCWLHCXTY6869-12-69 08:50:00 Test Item Value Reference Range Interpretation Comments Alk Phos (test code = Alk Phos) 50 39-136 N [facility] CenterCblezuuJFYSHNDIV3582-78-48 08:50:00 Test Item Value Reference Range Interpretation Comments CO2 (test code = CO2) 24 24-32 N [facility] CenterAemnovyHLPEANBSF8892-11-28 08:50:00 Test Item Value Reference Range Interpretation Comments BUN (test code = BUN) 10 7-22 N [facility]MayzmioWDJPTOSTRZ8781-02-64 08:50:00 Test Item Value Reference Range Interpretation Comments MCHC (test code = MCHC) 32.0 32.0-36.0 N [facility] CenterLmnxyxtPWSBKKPBZ0680-96-65 08:50:00 Test Item Value Reference Range Interpretation Comments Total Protein (test code = Total 5.6 6.4-8.4 L Protein) [facility] CenterPirmlbfSCJOUPMJL1474-01-85 08:50:00 Test Item Value Reference Range Interpretation Comments ALT (test code = ALT) 30 <=[address] [address] [facility]YjgezwuWQVPVGRMR2723-27-65 08:50:00 Test Item Value Reference Range Interpretation Comments Albumin Lvl (test code = Albumin Lvl) 3.3 3.5-5.[address] [facility] HospitalCjzjcyqHNGWJGYCM4803-27-87 08:50:00 Test Item Value Reference Range Interpretation Comments eGFR (test code = eGFR) 115 [facility]BlxdolcPUYDACTBM1602-65-41 08:50:00 Test Item Value Reference Range Interpretation Comments Potassium Lvl (test code = Potassium 3.7 3.5-5.1 N Lvl) [facility] CenterCltgzyfCXFMWINSD2646-95-63 08:50:00 Test Item Value Reference Range Interpretation Comments Sodium Lvl (test code = Sodium Lvl) 144 135-145 N [facility] CenterWjeeauqRDXLNSRKM5972-36-53 08:50:00 Test Item Value Reference Range Interpretation Comments Creatinine Lvl (test code = Creatinine 0.7 0.5-1.4 N Lvl) [facility] CenterExduwxdLPVHZTJMV5781-94-47 08:50:00 Test Item Value Reference Range Interpretation Comments Calcium Lvl (test code = Calcium Lvl) 8.3 8.5-10.5 L [facility] CenterUuzrszzZDWVDEBHM9230-10-00 08:50:00 Test Item Value Reference Range Interpretation Comments Chloride Lvl (test code = Chloride Lvl) 108 95-[address] [facility] HospitalIanhflzZCTKQWOYC9662-11-28 08:50:00 Test Item Value Reference Range Interpretation Comments B/C Ratio (test code = B/C Ratio) 14 6-25 N [facility]NvbfciiRCIGCWJCMC0482-02-83 08:50:00 Test Item Value Reference Range Interpretation Comments Platelet (test code = Platelet) 229 133-[address] [facility] HospitalMcfagrgRSZGMLMEU6603-18-93 08:50:00 Test Item Value Reference Range Interpretation Comments Globulin (test code = Globulin) 2.3 2.0-4.0 N [facility] CenterNhdaswsUCDUCRMJA1144-57-51 08:50:00 Test Item Value Reference Range Interpretation Comments AGAP (test code = AGAP) 15.7 10.0-20.0 N [facility] CenterFoyiqnaBSXCVZXKO8566-29-85 08:50:00 Test Item Value Reference Range Interpretation Comments A/G Ratio (test code = A/G Ratio) 1.4 0.7-1.6 N [facility]JgfcpxuKXPWMILNLM9906-42-87 08:50:00 Test Item Value Reference Range Interpretation Comments MCHC (test code = MCHC) 32.0 32.0-36.0 N [facility] CenterDzptiinNTFPOPLHJW0152-05-76 08:50:00 Test Item Value Reference Range Interpretation Comments Platelet (test code = Platelet) 229 133-450 N [facility] CenterUskasipMPASZMMNEU5091-61-16 08:50:00 Test Item Value Reference Range Interpretation Comments MPV (test code = MPV) 9.5 7.4-10.4 N [facility] CenterMgmouavUFQDRXRAJG9370-73-49 08:50:00 Test Item Value Reference Range Interpretation Comments RDW (test code = RDW) 16.3 11.5-14.5 H [facility] CenterIocdxypPTMCXIODYU8164-22-27 08:50:00 Test Item Value Reference Range Interpretation Comments WBC (test code = WBC) 9.8 3.7-10.4 N [facility] CenterLfmioytNGGRVGEZBB5072-86-34 08:50:00 Test Item Value Reference Range Interpretation Comments RBC (test code = RBC) 3.57 4.20-5.40 L [facility] CenterWhzwbxqTQGSBUKGRI4632-86-29 08:50:00 Test Item Value Reference Range Interpretation Comments MCH (test code = MCH) 26.6 pg 27.0-31.0 L [facility] CenterIljoolpVUMTHZQPHX0751-11-57 08:50:00 Test Item Value Reference Range Interpretation Comments MPV (test code = MPV) 9.5 7.4-10.4 N [facility] CenterEiiptccLKXXSTMNZV1720-30-03 08:50:00 Test Item Value Reference Range Interpretation Comments Hct (test code = Hct) 29.7 36.0-48.0 L [facility] CenterTisjwixVNSJSRLPAG7867-82-54 08:50:00 Test Item Value Reference Range Interpretation Comments MCV (test code = MCV) 83.1 81.0-99.0 N [facility] CenterJmvtwscYFGLLQWEJH4780-05-28 08:50:00 Test Item Value Reference Range Interpretation Comments Hgb (test code = Hgb) 9.5 12.0-16.0 L [facility] CenterQogfiaaOVCPYYDFBM8381-74-72 08:50:00 Test Item Value Reference Range Interpretation Comments Anisocyte (test code = 1+ *ABN*(12/12/2012 A Anisocyte) 02:50:00) [facility] CenterAoucdgqKPYYCAUFVJ0147-73-21 08:50:00 Test Item Value Reference Range Interpretation Comments Monocytes # (test code = Monocytes #) 0.6 <=0.8 N [facility] CenterCgjcvaaXBHRTHIBSH2214-09-40 08:50:00 Test Item Value Reference Range Interpretation Comments Basophils # (test code = Basophils #) 0.1 <=0.2 N [facility] CenterTdxuwtaVSTDQLCDOJ9881-53-69 08:50:00 Test Item Value Reference Range Interpretation Comments Eosinophils # (test code = Eosinophils 0.1 <=0.5 N #) [facility] CenterWvldaxwXXSERGMIGM4372-41-61 08:50:00 Test Item Value Reference Range Interpretation Comments Eosinophils (test code = Eosinophils) 1.0 <=4.0 N [facility] CenterIvebgsaUGSVKDKCOH3235-34-10 08:50:00 Test Item Value Reference Range Interpretation Comments Monocytes (test code = Monocytes) 6.2 2.0-12.0 N [facility] CenterOpgnlfbIOPZWGQKKJ6569-39-57 08:50:00 Test Item Value Reference Range Interpretation Comments Basophils (test code = Basophils) 0.6 <=1.0 N [facility] CenterTkgmousBDBCTWZFCS4865-52-73 08:50:00 Test Item Value Reference Range Interpretation Comments RDW (test code = RDW) 16.3 11.5-14.5 H [facility] CenterMznobolTEGUSNAWJX8153-21-50 08:50:00 Test Item Value Reference Range Interpretation Comments Lymphocytes # (test code = Lymphocytes 3.9 1.0-5.5 N #) [facility] CenterIfgqdydTEVOYSBALG0766-07-25 08:50:00 Test Item Value Reference Range Interpretation Comments Segs-Bands # (test code = Segs-Bands #) 5.1 1.5-8.1 N [facility] CenterCjfzzncZABTOJNZIB2811-84-12 08:50:00 Test Item Value Reference Range Interpretation Comments Segs (test code = Segs) 52.6 45.0-75.0 N [facility] CenterBwppvpkVPPRFUEUZQ5914-17-24 08:50:00 Test Item Value Reference Range Interpretation Comments Lymphocytes (test code = Lymphocytes) 39.6 20.0-40.0 N [facility] CenterCtyvmurNLEBWVETKT5059-13-51 08:50:00 Test Item Value Reference Range Interpretation Comments Plt Morph (test code = Normal (12/12/2012 N Plt Morph) 02:50:00) [facility] CenterQmigbcdQJPVMPGDKR6091-29-85 08:50:00 Test Item Value Reference Range Interpretation Comments WBC (test code = WBC) 9.8 3.7-10.4 N [facility] CenterQoszohzKLMYICLTHK5445-15-51 08:50:00 Test Item Value Reference Range Interpretation Comments RBC (test code = RBC) 3.57 4.20-5.40 L [facility] CenterNzperrvZSMQVDDPQT8545-32-76 08:50:00 Test Item Value Reference Range Interpretation Comments MCH (test code = MCH) 26.6 pg 27.0-31.0 L [facility] CenterDvmfgquWYAEGNMGYT2133-76-08 08:50:00 Test Item Value Reference Range Interpretation Comments Hct (test code = Hct) 29.7 36.0-48.0 L [facility] CenterAusgwbcVZPECJUCGU4555-65-27 08:50:00 Test Item Value Reference Range Interpretation Comments MCV (test code = MCV) 83.1 81.0-99.0 N [facility] CenterQxrhxgfBJOGOZXZFF6933-77-86 08:50:00 Test Item Value Reference Range Interpretation Comments Hgb (test code = Hgb) 9.5 12.0-16.0 L [facility] CenterKtvrrhgNSTOOIARJT2413-88-48 08:50:00 Test Item Value Reference Range Interpretation Comments Anisocyte (test code = 1+ *ABN*(12/12/2012 A Anisocyte) 02:50:00) [facility] CenterXdoeoreYVDTRGMCMB1793-59-96 08:50:00 Test Item Value Reference Range Interpretation Comments Monocytes # (test code 0.6 See_Comment N [Aut omated message] The = Monocytes #) system which generated this result tra nsmitted reference range : <=0.8. The reference r megan was not used to int erpret this result as normal/abnormal . [facility] CenterCutfyotTPAPEVPMVD6704-13-83 08:50:00 Test Item Value Reference Range Interpretation Comments Basophils # (test code 0.1 See_Comment N [Aut omated message] The = Basophils #) system which generated this result tra nsmitted reference range : <=0.2. The reference r megan was not used to int erpret this result as normal/abnormal . [facility] CenterPfeqqxfEQCGWGSXII1579-00-57 08:50:00 Test Item Value Reference Range Interpretation Comments Eosinophils # (test code 0.1 See_Comment N [A utomated message] The = Eosinophils #) system whic h generated this result tra nsmitted reference range : <=0.5. The reference r megan was not used to int erpret this result as normal/abnormal . [facility] CenterWlpogvyKGGENZWOVV1497-94-83 08:50:00 Test Item Value Reference Range Interpretation Comments Eosinophils (test code = 1.0 See_Comment N [A utomated message] The Eosinophils) system which ge nerated this result tra nsmitted reference range : <=4.0. The reference r megan was not used to int erpret this result as normal/abnormal . [facility] CenterMqktlllVTRSLEOEHY7489-78-87 08:50:00 Test Item Value Reference Range Interpretation Comments Monocytes (test code = Monocytes) 6.2 2.0-12.0 N [facility] CenterXtqhwfiWKIJKNBLMA7009-51-88 08:50:00 Test Item Value Reference Range Interpretation Comments Basophils (test code = 0.6 See_Comment N [Aut omated message] The Basophils) system which ge nerated this result tra nsmitted reference range : <=1.0. The reference r megan was not used to int erpret this result as normal/abnormal . [facility] CenterXebynjcWGUPBYDYT1157-04-60 08:50:00 Test Item Value Reference Range Interpretation Comments Bili Total (test code = Bili Total) 0.5 0.2-1.3 N [facility] CenterNdufblgSCAMUMDJK9939-81-64 08:50:00 Test Item Value Reference Range Interpretation Comments AST (test code = AST) 23 <=37 N [facility] CenterNoarvmnFGVEEXANU9307-17-14 08:50:00 Test Item Value Reference Range Interpretation Comments Glucose Lvl (test code = Glucose Lvl) 79 70-99 N [facility] CenterRidhujcBEQESVJLJ0967-60-83 08:50:00 Test Item Value Reference Range Interpretation Comments Alk Phos (test code = Alk Phos) 50 39-136 N [facility] CenterEodspzaQLSVNFPIKP0323-68-06 08:50:00 Test Item Value Reference Range Interpretation Comments Lymphocytes # (test code = Lymphocytes 3.9 1.0-5.5 N #) [facility] CenterUsrnfooWLXAQJEMH8118-48-56 08:50:00 Test Item Value Reference Range Interpretation Comments CO2 (test code = CO2) 24 24-32 N [facility] CenterHapcwiiRHUPPMABJ2861-55-26 08:50:00 Test Item Value Reference Range Interpretation Comments BUN (test code = BUN) 10 7-22 N [facility] CenterXcfkmkdFDSZZMCXW7574-44-64 08:50:00 Test Item Value Reference Range Interpretation Comments Total Protein (test code = Total 5.6 6.4-8.4 L Protein) [facility] CenterFrqovjdUJVZEMRNJ5029-03-90 08:50:00 Test Item Value Reference Range Interpretation Comments ALT (test code = ALT) 30 <=65 N [facility] CenterGqviaiaRNLYGMQFN9579-25-49 08:50:00 Test Item Value Reference Range Interpretation Comments Albumin Lvl (test code = Albumin Lvl) 3.3 3.5-5.0 L [facility] CenterHaxdosfGWMHQKPBU6871-03-51 08:50:00 Test Item Value Reference Range Interpretation Comments eGFR (test code = eGFR) 115 [facility] CenterEnulnotCCOBNLRUZ4007-26-38 08:50:00 Test Item Value Reference Range Interpretation Comments Potassium Lvl (test code = Potassium 3.7 3.5-5.1 N Lvl) [facility] CenterEukxsmuPYJRHYBEG1841-82-42 08:50:00 Test Item Value Reference Range Interpretation Comments Sodium Lvl (test code = Sodium Lvl) 144 135-145 N [facility] CenterHkzlluqRVSECODGD6195-28-97 08:50:00 Test Item Value Reference Range Interpretation Comments Creatinine Lvl (test code = Creatinine 0.7 0.5-1.4 N Lvl) [facility] CenterDgegjpmSICYLPNOB7622-47-99 08:50:00 Test Item Value Reference Range Interpretation Comments Calcium Lvl (test code = Calcium Lvl) 8.3 8.5-10.5 L [facility] CenterWoyktgnFVGLDOQCKO4365-73-87 08:50:00 Test Item Value Reference Range Interpretation Comments Segs-Bands # (test code = Segs-Bands #) 5.1 1.5-8.1 N [facility] CenterZzxnpikJDNKXUHRL5316-57-71 08:50:00 Test Item Value Reference Range Interpretation Comments Chloride Lvl (test code = Chloride Lvl) 108 95-109 N [facility] CenterIlqdbkjCUNVOKNSZ7638-47-47 08:50:00 Test Item Value Reference Range Interpretation Comments B/C Ratio (test code = B/C Ratio) 14 6-25 N [facility] CenterVkqdoxeBOUSRWBCA8253-89-64 08:50:00 Test Item Value Reference Range Interpretation Comments Globulin (test code = Globulin) 2.3 2.0-4.0 N [facility] CenterSyvkavfNJJKUXNMR3023-61-14 08:50:00 Test Item Value Reference Range Interpretation Comments AGAP (test code = AGAP) 15.7 10.0-20.0 N [facility] CenterSlgkljgZNYRTJGXW3085-31-44 08:50:00 Test Item Value Reference Range Interpretation Comments A/G Ratio (test code = A/G Ratio) 1.4 0.7-1.6 N [facility] CenterFplweisYTEWITFYUF7895-74-61 08:50:00 Test Item Value Reference Range Interpretation Comments MCHC (test code = MCHC) 32.0 32.0-36.0 N [facility] CenterNhlcvieBFOOSIPQXQ0492-09-30 08:50:00 Test Item Value Reference Range Interpretation Comments Platelet (test code = Platelet) 229 133-450 N [facility] CenterYaiculeABYCZDDXKY4730-74-70 08:50:00 Test Item Value Reference Range Interpretation Comments MPV (test code = MPV) 9.5 7.4-10.4 N [facility] CenterOddfqaoGEJXSPDKLG6252-45-42 08:50:00 Test Item Value Reference Range Interpretation Comments RDW (test code = RDW) 16.3 11.5-14.5 H [facility] CenterNecncnyWZBHYPGCXN7526-75-97 08:50:00 Test Item Value Reference Range Interpretation Comments WBC (test code = WBC) 9.8 3.7-10.4 N [facility] CenterUbqknbvWYSSAXZLDH1063-70-34 08:50:00 Test Item Value Reference Range Interpretation Comments Segs (test code = Segs) 52.6 45.0-75.0 N [facility] CenterBxinibsBYMTPUWWPP7690-58-10 08:50:00 Test Item Value Reference Range Interpretation Comments RBC (test code = RBC) 3.57 4.20-5.40 L [facility] CenterEacevuuGINZWFOHZF3126-95-58 08:50:00 Test Item Value Reference Range Interpretation Comments MCH (test code = MCH) 26.6 pg 27.0-31.0 L [facility] CenterFkbauhuTYNTLRQDEI2154-41-78 08:50:00 Test Item Value Reference Range Interpretation Comments Hct (test code = Hct) 29.7 36.0-48.0 L [place] 889543-03-09 08:50:00 Test Item Value Reference Range Interpretation Comments MCV (test code = MCV) 83.1 81.0-99.0 N [facility] CenterIdokpieZSLVUVMURM5472-44-65 08:50:00 Test Item Value Reference Range Interpretation Comments Hgb (test code = Hgb) 9.5 12.0-16.0 L [facility] CenterAaqvcnsTQUJFPOEXI3530-21-45 08:50:00 Test Item Value Reference Range Interpretation Comments Anisocyte (test code = 1+ *ABN*(12/12/2012 A Anisocyte) 02:50:00) [place] [address]-03-09 08:50:00 Test Item Value Reference Range Interpretation Comments Monocytes # (test code = Monocytes #) 0.6 <=0.8 N [place] [address]-03-09 08:50:00 Test Item Value Reference Range Interpretation Comments Basophils # (test code = Basophils #) 0.1 <=0.2 N [facility] CenterPadqvloWUKMSXLCBW8294-10-99 08:50:00 Test Item Value Reference Range Interpretation Comments Eosinophils # (test code = Eosinophils 0.1 <=0.5 N #) [facility] CenterXrvnifpQBCFIRBVEI7371-17-55 08:50:00 Test Item Value Reference Range Interpretation Comments Eosinophils (test code = Eosinophils) 1.0 <=4.0 N [facility] CenterKblxcmqCPHUVQJXFF5028-39-16 08:50:00 Test Item Value Reference Range Interpretation Comments Lymphocytes (test code = Lymphocytes) 39.6 20.0-40.0 N [facility] CenterVpxzedcFMYZPBYGMT8282-76-95 08:50:00 Test Item Value Reference Range Interpretation Comments Monocytes (test code = Monocytes) 6.2 2.0-12.0 N [place] [address]-03-09 08:50:00 Test Item Value Reference Range Interpretation Comments Basophils (test code = Basophils) 0.6 <=1.0 N [facility] CenterKycfklpMFSAFFSCXM9416-76-97 08:50:00 Test Item Value Reference Range Interpretation Comments Lymphocytes # (test code = Lymphocytes 3.9 1.0-5.5 N #) [facility] CenterPiynmlsYVSFSCAEIA2188-87-54 08:50:00 Test Item Value Reference Range Interpretation Comments Segs-Bands # (test code = Segs-Bands #) 5.1 1.5-8.1 N [facility] CenterZtivhlyEOVQBBBRJH5836-51-58 08:50:00 Test Item Value Reference Range Interpretation Comments Segs (test code = Segs) 52.6 45.0-75.0 N [facility] CenterFfhqqxkOIWZUHERNI1282-61-06 08:50:00 Test Item Value Reference Range Interpretation Comments Lymphocytes (test code = Lymphocytes) 39.6 20.0-40.0 N [facility] CenterDqmbyaxGOSXHUWOXZ4222-76-66 08:50:00 Test Item Value Reference Range Interpretation Comments Plt Morph (test code = Normal (12/12/2012 N Plt Morph) 02:50:00) [facility] CenterLnxqsorNOOKVJJWNW3050-32-60 08:50:00 Test Item Value Reference Range Interpretation Comments Plt Morph (test code = Normal (12/12/2012 N Plt Morph) 02:50:00) [facility] CenterZsvifqqAMKWWRLPJ9690-42-16 08:50:00 Test Item Value Reference Range Interpretation Comments Bili Total (test code = Bili Total) 0.5 0.2-1.3 N [facility] CenterEsntamqUBQZTNOUC8627-66-81 08:50:00 Test Item Value Reference Range Interpretation Comments AST (test code = AST) 23 <=37 N [facility] CenterAenuwufAVBEBYRIC4186-10-31 08:50:00 Test Item Value Reference Range Interpretation Comments Glucose Lvl (test code = Glucose Lvl) 79 70-99 N [facility] CenterFpwxpreYIKOZPPIT2777-26-07 08:50:00 Test Item Value Reference Range Interpretation Comments Alk Phos (test code = Alk Phos) 50 39-136 N [facility] CenterIobcfexKKKUQTONR7559-89-14 08:50:00 Test Item Value Reference Range Interpretation Comments CO2 (test code = CO2) 24 24-32 N [facility] CenterKwtomzmOEIGZGPYE9201-28-36 08:50:00 Test Item Value Reference Range Interpretation Comments BUN (test code = BUN) 10 7-22 N [facility] CenterQvcpgxjNZFBTLXZK4439-46-22 08:50:00 Test Item Value Reference Range Interpretation Comments Total Protein (test code = Total 5.6 6.4-8.4 L Protein) [facility] CenterAteslhuBLEEQLTZE1077-33-28 08:50:00 Test Item Value Reference Range Interpretation Comments ALT (test code = ALT) 30 <=65 N [facility] CenterMumjwozRJHRSFGES0815-45-43 08:50:00 Test Item Value Reference Range Interpretation Comments Albumin Lvl (test code = Albumin Lvl) 3.3 3.5-5.0 L [facility] CenterPvyprqiAHCCMMGBR3924-90-78 08:50:00 Test Item Value Reference Range Interpretation Comments eGFR (test code = eGFR) 115 [facility] CenterJgytmqkNMFTHHMRR5767-33-54 08:50:00 Test Item Value Reference Range Interpretation Comments Potassium Lvl (test code = Potassium 3.7 3.5-5.1 N Lvl) [facility] CenterIbzkxfsWSEOIGSGJ8438-87-79 08:50:00 Test Item Value Reference Range Interpretation Comments Sodium Lvl (test code = Sodium Lvl) 144 135-145 N [facility] CenterBlzdnhoKGWMSHLWJ1435-28-97 08:50:00 Test Item Value Reference Range Interpretation Comments Creatinine Lvl (test code = Creatinine 0.7 0.5-1.4 N Lvl) [facility] CenterJoxyuakDWPGAZQSU5553-65-14 08:50:00 Test Item Value Reference Range Interpretation Comments Calcium Lvl (test code = Calcium Lvl) 8.3 8.5-10.5 L [facility] CenterZvtbvrqWFBZAOCOY5118-08-35 08:50:00 Test Item Value Reference Range Interpretation Comments Chloride Lvl (test code = Chloride Lvl) 108 95-109 N [facility] CenterEhwzcieBJVDTNNBL5760-76-11 08:50:00 Test Item Value Reference Range Interpretation Comments B/C Ratio (test code = B/C Ratio) 14 6-25 N [facility] CenterZgvnxzgPCGAOHYXL5236-40-39 08:50:00 Test Item Value Reference Range Interpretation Comments Globulin (test code = Globulin) 2.3 2.0-4.0 N [facility] CenterSxyjpdtPPKMMFWAT9753-10-25 08:50:00 Test Item Value Reference Range Interpretation Comments AGAP (test code = AGAP) 15.7 10.0-20.0 N [facility] CenterXtprbkqBGFDJFMWP7159-68-95 08:50:00 Test Item Value Reference Range Interpretation Comments A/G Ratio (test code = A/G Ratio) 1.4 0.7-1.6 N [facility] CenterMqmfhbbIIBGLSSGRO3946-93-92 08:50:00 Test Item Value Reference Range Interpretation Comments MCHC (test code = MCHC) 32.0 32.0-36.0 N [facility] CenterCijfscmGUPBSWFIIH1898-72-93 08:50:00 Test Item Value Reference Range Interpretation Comments Platelet (test code = Platelet) 229 133-450 N [facility] CenterAsbvgjiNLSBONEEPK2284-96-20 08:50:00 Test Item Value Reference Range Interpretation Comments MPV (test code = MPV) 9.5 7.4-10.4 N [facility] CenterLokupdeAKAWSNHOME7170-31-16 08:50:00 Test Item Value Reference Range Interpretation Comments RDW (test code = RDW) 16.3 11.5-14.5 H [facility] CenterUjhlewsOUKCZBUFNJ3652-02-14 08:50:00 Test Item Value Reference Range Interpretation Comments WBC (test code = WBC) 9.8 3.7-10.4 N [facility] CenterJsgkqtkXIXYAGSLVH7563-30-62 08:50:00 Test Item Value Reference Range Interpretation Comments RBC (test code = RBC) 3.57 4.20-5.40 L [facility] CenterPjmpaodSZLAPXGQHS3691-04-41 08:50:00 Test Item Value Reference Range Interpretation Comments MCH (test code = MCH) 26.6 pg 27.0-31.0 L [facility] CenterXijbxhnNZUPCGENIO9021-63-86 08:50:00 Test Item Value Reference Range Interpretation Comments Hct (test code = Hct) 29.7 36.0-48.0 L [facility] CenterZblnwzuRZAXOEPOEG1362-75-68 08:50:00 Test Item Value Reference Range Interpretation Comments MCV (test code = MCV) 83.1 81.0-99.0 N [facility] CenterMgbwtrbQLPSCMEWBB0167-45-35 08:50:00 Test Item Value Reference Range Interpretation Comments Hgb (test code = Hgb) 9.5 12.0-16.0 L [facility] CenterZvzmarbCRKBAVCAOY6347-39-75 08:50:00 Test Item Value Reference Range Interpretation Comments Anisocyte (test code = 1+ *ABN*(12/12/2012 A Anisocyte) 02:50:00) [facility] CenterAmsfntnMFLGPBKVDV1842-14-31 08:50:00 Test Item Value Reference Range Interpretation Comments Monocytes # (test code = Monocytes #) 0.6 <=0.8 N [facility] CenterRvtrnsoSTPCWNRFFZ4667-79-83 08:50:00 Test Item Value Reference Range Interpretation Comments Basophils # (test code = Basophils #) 0.1 <=0.2 N [place] [address]-03-09 08:50:00 Test Item Value Reference Range Interpretation Comments Eosinophils # (test code = Eosinophils 0.1 <=0.5 N #) [facility] CenterZjawzkbSZANXNEMPW8530-39-91 08:50:00 Test Item Value Reference Range Interpretation Comments Eosinophils (test code = Eosinophils) 1.0 <=4.0 N [facility] CenterEwiuzsbPSELYGZUVJ0250-40-42 08:50:00 Test Item Value Reference Range Interpretation Comments Monocytes (test code = Monocytes) 6.2 2.0-12.0 N [facility] CenterIuxyvqwHHIMGXISGZ2233-69-52 08:50:00 Test Item Value Reference Range Interpretation Comments Basophils (test code = Basophils) 0.6 <=1.0 N [facility] CenterCkahzbtAGCPQDOIYQ7714-34-89 08:50:00 Test Item Value Reference Range Interpretation Comments Lymphocytes # (test code = Lymphocytes 3.9 1.0-5.5 N #) [facility] CenterRgxdvtrSQOOEGZYCC0459-58-96 08:50:00 Test Item Value Reference Range Interpretation Comments Segs-Bands # (test code = Segs-Bands #) 5.1 1.5-8.1 N [facility] CenterSdmzcziXEHENQSMVC9664-64-94 08:50:00 Test Item Value Reference Range Interpretation Comments Segs (test code = Segs) 52.6 45.0-75.0 N [facility] CenterXhxvuzrDQUEBAHAHV1367-51-35 08:50:00 Test Item Value Reference Range Interpretation Comments Lymphocytes (test code = Lymphocytes) 39.6 20.0-40.0 N [facility] CenterVdhbdaqWPFEBKUAJG8676-79-21 08:50:00 Test Item Value Reference Range Interpretation Comments Plt Morph (test code = Normal (12/12/2012 N Plt Morph) 02:50:00) [facility] CenterCmxqgbrQFETWQLKPP6000-65-01 09:45:00 Test Item Value Reference Range Interpretation Comments Monocytes # (test code 0.0 See_Comment N [Aut omated message] The = Monocytes #) system which generated this result tra nsmitted reference range : <=0.8. The reference r megan was not used to int erpret this result as normal/abnormal . [facility] CenterDtjarchNGSKKOWJCX4012-96-70 09:45:00 Test Item Value Reference Range Interpretation Comments Segs-Bands # (test code = Segs-Bands #) 13.0 1.5-8.1 H [facility] CenterWreqdryJJZRSGVOQV2262-43-72 09:45:00 Test Item Value Reference Range Interpretation Comments Plt Morph (test code = Normal (12/11/2012 N Plt Morph) 03:45:00) [facility] CenterMsbfnfcKYKKXKPKLR8045-84-94 09:45:00 Test Item Value Reference Range Interpretation Comments Hypochrom (test code = Slight (12/11/2012 N Hypochrom) 03:45:00) [facility] CenterRkbauztKZKYILZTHA1505-27-31 09:45:00 Test Item Value Reference Range Interpretation Comments Myelocytes (test code = Myelocytes) 1.0 [facility] CenterBxtupwyHCXCPMQORN4868-02-07 09:45:00 Test Item Value Reference Range Interpretation Comments Atypical Lymphs (test code = Atypical 0.0 N Lymphs) [facility] CenterNnmgculQOTSBTDJYD1525-63-48 09:45:00 Test Item Value Reference Range Interpretation Comments Monocytes (test code = Monocytes) 0.0 2.0-12.0 L [facility] CenterIbmglxwAKDYYDDBFK5147-88-26 09:45:00 Test Item Value Reference Range Interpretation Comments Metamyelocytes (test code 1.0 See_Comment N [ Automated message] = Metamyelocytes) The system which generated this result transmitted ref erence range: <=1.0. T he reference range was not used to int erpret this result as normal/abnormal . [facility] CenterJzrdrltBVLKFPGDEO0363-93-42 09:45:00 Test Item Value Reference Range Interpretation Comments RDW (test code = RDW) 16.2 11.5-14.5 H [facility] CenterHbzeltfBZEDGTYTZE3546-30-91 09:45:00 Test Item Value Reference Range Interpretation Comments Platelet (test code = Platelet) 268 133-450 N [facility] CenterXqnwpdhEJZKRYHLNE5223-23-76 09:45:00 Test Item Value Reference Range Interpretation Comments MPV (test code = MPV) 9.0 7.4-10.4 N [facility] CenterHwsibkcHUYBVWNLLX5149-86-83 09:45:00 Test Item Value Reference Range Interpretation Comments MCV (test code = MCV) 81.2 81.0-99.0 N [facility] CenterOhbfobyKGGWBJTEPV4140-85-42 09:45:00 Test Item Value Reference Range Interpretation Comments MCH (test code = MCH) 25.7 pg 27.0-31.0 [facility]BoslzzdQMXVYJYYP7320-82-54 09:45:00 Test Item Value Reference Range Interpretation Comments AST (test code = AST) 31 See_Comment N [Auto mated message] The system which ge nerated this result transmit ashanti reference range : <=37. The reference range was not used to interpr et this result as carmen l/abnormal. [facility] CenterUaprnojCNGRIHGQOC4752-48-82 09:45:00 Test Item Value Reference Range Interpretation Comments MCHC (test code = MCHC) 31.6 32.0-36.0 L [facility] CenterTtvjkuoFTNMBQZXA8334-10-64 09:45:00 Test Item Value Reference Range Interpretation Comments Bili Total (test code = Bili Total) 0.4 0.2-1.3 N [facility] CenterEjomwuuRZERRPSHV9918-83-42 09:45:00 Test Item Value Reference Range Interpretation Comments Alk Phos (test code = Alk Phos) 57 39-136 N [facility] CenterVrpjporAEBBTZERO8068-48-81 09:45:00 Test Item Value Reference Range Interpretation Comments ALT (test code = ALT) 35 See_Comment N [Auto mated message] The system which ge nerated this result transmit ashanti reference range : <=65. The reference range was not used to interpr et this result as carmen l/abnormal. [facility] CenterWftbdrdSYXPABROL0526-40-72 09:45:00 Test Item Value Reference Range Interpretation Comments Total Protein (test code = Total 5.9 6.4-8.4 L Protein) [facility] CenterSfosnthWIDZTLBLM2049-52-34 09:45:00 Test Item Value Reference Range Interpretation Comments eGFR (test code = eGFR) 121 [facility] CenterYfbwkapMFHIKYUFT4165-87-63 09:45:00 Test Item Value Reference Range Interpretation Comments Calcium Lvl (test code = Calcium Lvl) 8.1 8.5-10.5 L [facility] CenterGdmfrhhSUBITMBCR8180-18-01 09:45:00 Test Item Value Reference Range Interpretation Comments Albumin Lvl (test code = Albumin Lvl) 3.3 3.5-5.0 L [facility] CenterBsjcrqnVXBYOQZLG2844-44-07 09:45:00 Test Item Value Reference Range Interpretation Comments Chloride Lvl (test code = Chloride Lvl) 104 95-109 N [facility] CenterOnhduxgISXSYGHXA0821-19-53 09:45:00 Test Item Value Reference Range Interpretation Comments CO2 (test code = CO2) 24 24-32 N [facility] CenterOyowohdWKTQISTSF2755-11-86 09:45:00 Test Item Value Reference Range Interpretation Comments Sodium Lvl (test code = Sodium Lvl) 140 135-145 N [facility] CenterJzjlutmHUZTVJZUKO1548-44-92 09:45:00 Test Item Value Reference Range Interpretation Comments WBC (test code = WBC) 15.0 3.7-10.4 H [facility] CenterLscgbxwORXFVWVIG9770-24-04 09:45:00 Test Item Value Reference Range Interpretation Comments Potassium Lvl (test code = Potassium 4.2 3.5-5.1 N Lvl) [facility] CenterMuzzyqxLDKUKZMMX6345-49-52 09:45:00 Test Item Value Reference Range Interpretation Comments BUN (test code = BUN) 8 7-22 N [facility] CenterVllsogwTRWJJLAKL4172-33-00 09:45:00 Test Item Value Reference Range Interpretation Comments Creatinine Lvl (test code = Creatinine 0.6 0.5-1.4 N Lvl) [facility] CenterMuujchyWGULPGNYV1639-59-73 09:45:00 Test Item Value Reference Range Interpretation Comments Glucose Lvl (test code = Glucose Lvl) 87 70-99 N [facility] CenterMpkniwfIZAAAABLZ1417-01-94 09:45:00 Test Item Value Reference Range Interpretation Comments A/G Ratio (test code = A/G Ratio) 1.3 0.7-1.6 N [facility] CenterTtwxjuuXBCVFVKKE6743-40-66 09:45:00 Test Item Value Reference Range Interpretation Comments Globulin (test code = Globulin) 2.6 2.0-4.0 N [facility] CenterOwlgzoeKWAETSDVJ5427-02-48 09:45:00 Test Item Value Reference Range Interpretation Comments AGAP (test code = AGAP) 16.2 10.0-20.0 N [facility] CenterOxrakgkWXKKWGCJU2612-00-00 09:45:00 Test Item Value Reference Range Interpretation Comments B/C Ratio (test code = B/C Ratio) 13 6-25 N [facility] CenterDhfarvgCHGPJETYOY6504-24-78 09:45:00 Test Item Value Reference Range Interpretation Comments Lymphocytes (test code = Lymphocytes) 11.0 20.0-40.0 L [facility] CenterSsjroaaFDHAYCWGEQ4329-35-08 09:45:00 Test Item Value Reference Range Interpretation Comments Segs (test code = Segs) 86.0 45.0-75.0 H [facility] CenterIrdtsglEAACLYRNVD6298-92-85 09:45:00 Test Item Value Reference Range Interpretation Comments Hct (test code = Hct) 31.9 36.0-48.0 L [facility] CenterWgqwvkaFNOOWMSAAK2198-48-14 09:45:00 Test Item Value Reference Range Interpretation Comments Bands (test code = 1.0 See_Comment N [Automat ed message] The Bands) system which ge nerated this result transmit ashanti reference range : <=11.0. The reference r megan was not used to interpr et this result as carmen l/abnormal. [facility] CenterJtgezduLKFGYRLZXL4824-34-25 09:45:00 Test Item Value Reference Range Interpretation Comments Lymphocytes # (test code = Lymphocytes 1.6 1.0-5.5 N #) [facility] CenterPniqrxzVEOOMRMESG9796-44-96 09:45:00 Test Item Value Reference Range Interpretation Comments Monocytes # (test code 0.0 See_Comment N [Aut omated message] The = Monocytes #) system which generated this result tra nsmitted reference range : <=0.8. The reference r megan was not used to int erpret this result as normal/abnormal . [facility] CenterIsfmnuaVWGESPAJLC5370-87-79 09:45:00 Test Item Value Reference Range Interpretation Comments Segs-Bands # (test code = Segs-Bands #) 13.0 1.5-8.1 H [facility] CenterSqsdnhnPNMBGSBNWU3572-71-18 09:45:00 Test Item Value Reference Range Interpretation Comments Plt Morph (test code = Normal (12/11/2012 N Plt Morph) 03:45:00) [facility] CenterVlbwtsjUUJJXJAIRQ1390-60-09 09:45:00 Test Item Value Reference Range Interpretation Comments Hypochrom (test code = Slight (12/11/2012 N Hypochrom) 03:45:00) [facility] CenterBvlfuzxUWRDLJOOQG3430-99-19 09:45:00 Test Item Value Reference Range Interpretation Comments Myelocytes (test code = Myelocytes) 1.0 H [facility] CenterTomqlmiNZCIQABEUK3116-14-06 09:45:00 Test Item Value Reference Range Interpretation Comments Atypical Lymphs (test code = Atypical 0.0 N Lymphs) [facility] CenterEauyotfMBFAUYZRHD6508-71-44 09:45:00 Test Item Value Reference Range Interpretation Comments Monocytes (test code = Monocytes) 0.0 2.0-12.0 L [facility] CenterUltnalwXYMKCJGPFL6907-48-58 09:45:00 Test Item Value Reference Range Interpretation Comments Metamyelocytes (test code 1.0 See_Comment N [ Automated message] = Metamyelocytes) The system which generated this result transmitted ref erence range: <=1.0. T he reference range was not used to int erpret this result as normal/abnormal . [facility] CenterSafbeloTDMYENYWUZ9926-92-50 09:45:00 Test Item Value Reference Range Interpretation Comments Hgb (test code = Hgb) 10.1 12.0-16.0 L [facility] CenterKkpxcfcVQVZCZFMEP3810-39-91 09:45:00 Test Item Value Reference Range Interpretation Comments RDW (test code = RDW) 16.2 11.5-14.5 H [facility] CenterRxavmznWHALMQVVKL4535-44-35 09:45:00 Test Item Value Reference Range Interpretation Comments Platelet (test code = Platelet) 268 133-450 N [facility] CenterKkmbvseGELZKUECKU4717-42-67 09:45:00 Test Item Value Reference Range Interpretation Comments MPV (test code = MPV) 9.0 7.4-10.4 N [facility] CenterUxscpqpSMDEFMHEEP8320-86-58 09:45:00 Test Item Value Reference Range Interpretation Comments MCV (test code = MCV) 81.2 81.0-99.0 N [facility] CenterOifegtuNXSSBJOMIF3488-94-03 09:45:00 Test Item Value Reference Range Interpretation Comments MCH (test code = MCH) 25.7 pg 27.0-31.0 L [facility] CenterDoecgjuJYJSQAKFGA5545-31-10 09:45:00 Test Item Value Reference Range Interpretation Comments MCHC (test code = MCHC) 31.6 32.0-36.0 L [facility] CenterAqraaqhNODPJPKUOR8078-47-56 09:45:00 Test Item Value Reference Range Interpretation Comments WBC (test code = WBC) 15.0 3.7-10.4 H [facility] CenterLvhnbmmCRLWZKCREQ5971-37-79 09:45:00 Test Item Value Reference Range Interpretation Comments Hct (test code = Hct) 31.9 36.0-48.0 L [facility] CenterZxozoeeVYWOHSDCBM0557-60-40 09:45:00 Test Item Value Reference Range Interpretation Comments Hgb (test code = Hgb) 10.1 12.0-16.0 L [facility] CenterHpusxbtVPRIDDDTWM5324-56-65 09:45:00 Test Item Value Reference Range Interpretation Comments RBC (test code = RBC) 3.93 4.20-5.40 L [facility] CenterCskrxfqRFVKYYVUNQ7120-06-97 09:45:00 Test Item Value Reference Range Interpretation Comments RBC (test code = RBC) 3.93 4.20-5.40 L [facility] CenterWtnhsqjSNHITOJVF2183-66-41 09:45:00 Test Item Value Reference Range Interpretation Comments AST (test code = AST) 31 See_Comment N [Auto mated message] The system which ge nerated this result transmit ashanti reference range : <=37. The reference range was not used to interpr et this result as carmen l/abnormal. [facility] CenterRzefvhqARDBPCTUD0964-29-53 09:45:00 Test Item Value Reference Range Interpretation Comments Bili Total (test code = Bili Total) 0.4 0.2-1.3 N [facility] CenterHnagwnuSZSDYMZFZ6669-41-20 09:45:00 Test Item Value Reference Range Interpretation Comments Alk Phos (test code = Alk Phos) 57 39-136 N [facility] CenterUopyrdlEPMZQBLIQ9998-69-30 09:45:00 Test Item Value Reference Range Interpretation Comments ALT (test code = ALT) 35 See_Comment N [Auto mated message] The system which ge nerated this result transmit ashanti reference range : <=65. The reference range was not used to interpr et this result as carmen l/abnormal. [facility] CenterNfucuusTDOXMHABJ1193-55-44 09:45:00 Test Item Value Reference Range Interpretation Comments Total Protein (test code = Total 5.9 6.4-8.4 L Protein) [facility] CenterCkwtvrmOGLCWEOMF1026-78-62 09:45:00 Test Item Value Reference Range Interpretation Comments eGFR (test code = eGFR) 121 [facility] CenterBlkgmgsVWTYOLLGA7634-22-16 09:45:00 Test Item Value Reference Range Interpretation Comments Calcium Lvl (test code = Calcium Lvl) 8.1 8.5-10.5 L [facility] CenterBbwmlfnIFKPUIQOW5170-08-00 09:45:00 Test Item Value Reference Range Interpretation Comments Albumin Lvl (test code = Albumin Lvl) 3.3 3.5-5.0 L [facility] CenterNboetleUKTSDPZDU6303-94-15 09:45:00 Test Item Value Reference Range Interpretation Comments Chloride Lvl (test code = Chloride Lvl) 104 95-109 N [facility] CenterNferbsvMPCICNAUJ5731-79-04 09:45:00 Test Item Value Reference Range Interpretation Comments CO2 (test code = CO2) 24 24-32 N [facility] CenterKbvyxhbENCQPITBR8755-87-62 09:45:00 Test Item Value Reference Range Interpretation Comments Sodium Lvl (test code = Sodium Lvl) 140 135-145 N [facility] CenterWiocvbrEOUYAZBVN1256-39-24 09:45:00 Test Item Value Reference Range Interpretation Comments Potassium Lvl (test code = Potassium 4.2 3.5-5.1 N Lvl) [facility] CenterJlgrzouJQEPVVGBQ6842-05-52 09:45:00 Test Item Value Reference Range Interpretation Comments BUN (test code = BUN) 8 7-22 N [facility] CenterZfjcadcLWGPKSQNL3587-92-77 09:45:00 Test Item Value Reference Range Interpretation Comments Creatinine Lvl (test code = Creatinine 0.6 0.5-1.4 N Lvl) [facility] CenterSjwtingJOJLXWWZS6987-14-53 09:45:00 Test Item Value Reference Range Interpretation Comments Glucose Lvl (test code = Glucose Lvl) 87 70-99 N [facility] CenterGkgkvgvHRWRWHHLV1023-14-66 09:45:00 Test Item Value Reference Range Interpretation Comments A/G Ratio (test code = A/G Ratio) 1.3 0.7-1.6 N [facility] CenterYpfolxtWMMCHYKJA7154-12-53 09:45:00 Test Item Value Reference Range Interpretation Comments Globulin (test code = Globulin) 2.6 2.0-4.0 N [facility] CenterNrgleqpYWRLXCRAN9728-06-90 09:45:00 Test Item Value Reference Range Interpretation Comments AGAP (test code = AGAP) 16.2 10.0-20.0 N [facility] CenterZndogwgOCWEXCAHZ9742-54-98 09:45:00 Test Item Value Reference Range Interpretation Comments B/C Ratio (test code = B/C Ratio) 13 6-25 N [facility] CenterRmwdzweGTSKUUVPEI3683-97-33 09:45:00 Test Item Value Reference Range Interpretation Comments Lymphocytes (test code = Lymphocytes) 11.0 20.0-40.0 L [facility] CenterIrezkjoTLCNHFVKIV5367-37-51 09:45:00 Test Item Value Reference Range Interpretation Comments Segs (test code = Segs) 86.0 45.0-75.0 H [facility] CenterJocjcvoYAIQRAPKSR5425-06-60 09:45:00 Test Item Value Reference Range Interpretation Comments Bands (test code = 1.0 See_Comment N [Automat ed message] The Bands) system which ge nerated this result transmit ashanti reference range : <=11.0. The reference r megan was not used to interpr et this result as carmen l/abnormal. [facility] CenterWqrhganOTOFVIVSTX8357-44-22 09:45:00 Test Item Value Reference Range Interpretation Comments Lymphocytes # (test code = Lymphocytes 1.6 1.0-5.5 N #) [facility] CenterTlgaqvxZGHXLVSVBR3771-66-71 09:45:00 Test Item Value Reference Range Interpretation Comments Monocytes # (test code 0.0 See_Comment N [Aut omated message] The = Monocytes #) system which generated this result tra nsmitted reference range : <=0.8. The reference r megan was not used to int erpret this result as normal/abnormal . [facility] CenterWnhkxumYHORWJCPGQ9908-65-65 09:45:00 Test Item Value Reference Range Interpretation Comments Segs-Bands # (test code = Segs-Bands #) 13.0 1.5-8.1 H [facility] CenterYizbsihUKKZKVFEXQ3473-92-69 09:45:00 Test Item Value Reference Range Interpretation Comments Plt Morph (test code = Normal (12/11/2012 N Plt Morph) 03:45:00) [facility] CenterSusaotfKWIXKVQLGW9070-18-35 09:45:00 Test Item Value Reference Range Interpretation Comments Hypochrom (test code = Slight (12/11/2012 N Hypochrom) 03:45:00) [facility] CenterCqgdaliBUNYJGQGKR1680-09-24 09:45:00 Test Item Value Reference Range Interpretation Comments Myelocytes (test code = Myelocytes) 1.0 H [facility] CenterPxrubaaEWETKZPKBG6341-24-97 09:45:00 Test Item Value Reference Range Interpretation Comments Atypical Lymphs (test code = Atypical 0.0 N Lymphs) [facility] CenterTuwlycxRALUXMEWZW0668-87-77 09:45:00 Test Item Value Reference Range Interpretation Comments Monocytes (test code = Monocytes) 0.0 2.0-12.0 L [facility] CenterBdladobLVVKPYZUGJ3212-63-64 09:45:00 Test Item Value Reference Range Interpretation Comments Metamyelocytes (test code 1.0 See_Comment N [ Automated message] = Metamyelocytes) The system which generated this result transmitted ref erence range: <=1.0. T he reference range was not used to int erpret this result as normal/abnormal . [facility] CenterWxxxkzmHOGJLBQSNM9391-11-70 09:45:00 Test Item Value Reference Range Interpretation Comments RDW (test code = RDW) 16.2 11.5-14.5 H [facility] CenterTrbbahlGSRHYIMGPT0660-12-92 09:45:00 Test Item Value Reference Range Interpretation Comments Platelet (test code = Platelet) 268 133-450 N [facility] CenterUdljteqLICYVKWGSC1046-54-95 09:45:00 Test Item Value Reference Range Interpretation Comments MPV (test code = MPV) 9.0 7.4-10.4 N [facility] CenterJtpozxxCFZFABXWMG6299-41-83 09:45:00 Test Item Value Reference Range Interpretation Comments MCV (test code = MCV) 81.2 81.0-99.0 N [facility] CenterAionnmiYIBUUCCKYH4728-71-85 09:45:00 Test Item Value Reference Range Interpretation Comments MCH (test code = MCH) 25.7 pg 27.0-31.0 L [facility] CenterQbkjngvKOXLHQTBTR8739-82-48 09:45:00 Test Item Value Reference Range Interpretation Comments MCHC (test code = MCHC) 31.6 32.0-36.0 L [facility] CenterRqhxuspPRCYMNBTRV9867-66-47 09:45:00 Test Item Value Reference Range Interpretation Comments WBC (test code = WBC) 15.0 3.7-10.4 H [facility] CenterPqafyqlLXSWLFMEBK9478-11-18 09:45:00 Test Item Value Reference Range Interpretation Comments Hct (test code = Hct) 31.9 36.0-48.0 L [facility] CenterHjfmsxmQIINCYGHKB2090-01-81 09:45:00 Test Item Value Reference Range Interpretation Comments Hgb (test code = Hgb) 10.1 12.0-16.0 L [facility] CenterJuqviwaMDBYIZNLMO2208-22-68 09:45:00 Test Item Value Reference Range Interpretation Comments RBC (test code = RBC) 3.93 4.20-5.[address] [facility]JckequtDXISSFGLB2531-53-34 09:45:00 Test Item Value Reference Range Interpretation Comments AST (test code = AST) 31 See_Comment N [Auto mated message] The system which ge nerated this result transmit ashanti reference range : <=37. The reference range was not used to interpr et this result as carmen l/abnormal. [facility]MpvhtjzERRIXCJLI6001-75-94 09:45:00 Test Item Value Reference Range Interpretation Comments Bili Total (test code = Bili Total) 0.4 0.2-1.3 N [facility] CenterZzizrjlNHHUCQVTV6838-32-14 09:45:00 Test Item Value Reference Range Interpretation Comments Alk Phos (test code = Alk Phos) 57 39-136 N [facility] CenterLrlvfsiBSDBRVFUE1021-00-07 09:45:00 Test Item Value Reference Range Interpretation Comments ALT (test code = ALT) 35 See_Comment N [Auto mated message] The system which ge nerated this result transmit ashanti reference range : <=65. The reference range was not used to interpr et this result as carmen l/abnormal. [facility] CenterZyjhaehEGJCICWOB7150-56-17 09:45:00 Test Item Value Reference Range Interpretation Comments Total Protein (test code = Total 5.9 6.4-8.4 L Protein) [facility] CenterLeguvkhZZDXCCOXC0022-05-89 09:45:00 Test Item Value Reference Range Interpretation Comments eGFR (test code = eGFR) 121 [facility] CenterHjzdhtoDJIFEKNXY5614-92-84 09:45:00 Test Item Value Reference Range Interpretation Comments Calcium Lvl (test code = Calcium Lvl) 8.1 8.5-10.5 L [facility] CenterKknqujzAHZGLWOPC3466-11-21 09:45:00 Test Item Value Reference Range Interpretation Comments Albumin Lvl (test code = Albumin Lvl) 3.3 3.5-5.0 L [facility] CenterRsdiljnHPEUABDJU1357-88-36 09:45:00 Test Item Value Reference Range Interpretation Comments Chloride Lvl (test code = Chloride Lvl) 104 95-109 N [facility] CenterYehcdgcJIWFIOMOP6244-40-90 09:45:00 Test Item Value Reference Range Interpretation Comments CO2 (test code = CO2) 24 24-32 N [facility] CenterNtdcrrmLOTKWKCHG2890-89-94 09:45:00 Test Item Value Reference Range Interpretation Comments Sodium Lvl (test code = Sodium Lvl) 140 135-145 N [facility] CenterGhihkxsZNETSRLLC6858-59-29 09:45:00 Test Item Value Reference Range Interpretation Comments Potassium Lvl (test code = Potassium 4.2 3.5-5.1 N Lvl) [facility] CenterWlgjphnQWRRVRNTY0675-42-81 09:45:00 Test Item Value Reference Range Interpretation Comments BUN (test code = BUN) 8 7-22 N [facility] CenterUdjcxurPXWOFLGTD1021-19-45 09:45:00 Test Item Value Reference Range Interpretation Comments Creatinine Lvl (test code = Creatinine 0.6 0.5-1.4 N Lvl) [facility] CenterJlswynzZYPMWZIJM8351-04-62 09:45:00 Test Item Value Reference Range Interpretation Comments Glucose Lvl (test code = Glucose Lvl) 87 70-99 N [facility] CenterIrxupwtFOTXVJVHL0651-03-54 09:45:00 Test Item Value Reference Range Interpretation Comments A/G Ratio (test code = A/G Ratio) 1.3 0.7-1.6 N [facility] CenterPwprhliEJSMITTLY4132-94-17 09:45:00 Test Item Value Reference Range Interpretation Comments Globulin (test code = Globulin) 2.6 2.0-4.0 N [facility] CenterOlxfodhFGBZGDOYC5775-72-56 09:45:00 Test Item Value Reference Range Interpretation Comments AGAP (test code = AGAP) 16.2 10.0-20.0 N [facility] CenterPgjdaxeCUVFDPBZA1997-18-23 09:45:00 Test Item Value Reference Range Interpretation Comments B/C Ratio (test code = B/C Ratio) 13 6-25 N [facility] CenterZotqitaSAGBFNLICI6231-93-47 09:45:00 Test Item Value Reference Range Interpretation Comments Lymphocytes (test code = Lymphocytes) 11.0 20.0-40.0 L [facility] CenterEnrhgyrLDSKAVEOWI3620-99-31 09:45:00 Test Item Value Reference Range Interpretation Comments Segs (test code = Segs) 86.0 45.0-75.0 H [facility] CenterYmffvelKGEFYRQMVZ0194-87-25 09:45:00 Test Item Value Reference Range Interpretation Comments Bands (test code = 1.0 See_Comment N [Automat ed message] The Bands) system which ge nerated this result transmit ashanti reference range : <=11.0. The reference r megan was not used to interpr et this result as carmen l/abnormal. [facility] CenterBfwjbxyKNXIMKKRSY5622-89-27 09:45:00 Test Item Value Reference Range Interpretation Comments Lymphocytes # (test code = Lymphocytes 1.6 1.0-5.5 N #) [facility] CenterMykuissSTJSECCESQ8435-07-56 09:45:00 Test Item Value Reference Range Interpretation Comments Monocytes # (test code 0.0 See_Comment N [Aut omated message] The = Monocytes #) system which generated this result tra nsmitted reference range : <=0.8. The reference r megan was not used to int erpret this result as normal/abnormal . [facility] CenterBfigmglMYNCVOXHUG1344-76-33 09:45:00 Test Item Value Reference Range Interpretation Comments Segs-Bands # (test code = Segs-Bands #) 13.0 1.5-8.1 H [facility] CenterKmibplaDMYFJKQKLO8373-52-67 09:45:00 Test Item Value Reference Range Interpretation Comments Plt Morph (test code = Normal (12/11/2012 N Plt Morph) 03:45:00) [facility] CenterKinappmLLURUBBWYG1960-64-27 09:45:00 Test Item Value Reference Range Interpretation Comments Hypochrom (test code = Slight (12/11/2012 N Hypochrom) 03:45:00) [facility] CenterUcjhqkcQFYABHOHJA9887-57-72 09:45:00 Test Item Value Reference Range Interpretation Comments Myelocytes (test code = Myelocytes) 1.0 H [facility] CenterFsqzrilOFVJOKXCZC8074-95-56 09:45:00 Test Item Value Reference Range Interpretation Comments Atypical Lymphs (test code = Atypical 0.0 N Lymphs) [facility] CenterBcijosgNPBIVCFXCE6283-34-32 09:45:00 Test Item Value Reference Range Interpretation Comments Monocytes (test code = Monocytes) 0.0 2.0-12.0 L [facility] CenterZfsgotmOBOMIVAVUL9247-57-89 09:45:00 Test Item Value Reference Range Interpretation Comments Metamyelocytes (test code 1.0 See_Comment N [ Automated message] = Metamyelocytes) The system which generated this result transmitted ref erence range: <=1.0. T he reference range was not used to int erpret this result as normal/abnormal . [facility] CenterLphbhsfPKCVYJJIQY3399-93-12 09:45:00 Test Item Value Reference Range Interpretation Comments RDW (test code = RDW) 16.2 11.5-14.5 H [facility] CenterSrrljzgHGEENUXTMO0004-74-69 09:45:00 Test Item Value Reference Range Interpretation Comments Platelet (test code = Platelet) 268 133-450 N [facility] CenterRmjwqdfCWNOSYXQFT1564-47-92 09:45:00 Test Item Value Reference Range Interpretation Comments MPV (test code = MPV) 9.0 7.4-10.4 [facility]ViiqbwoKZEYTCTFEI9323-19-45 09:45:00 Test Item Value Reference Range Interpretation Comments MCV (test code = MCV) 81.2 81.0-99.0 N [facility] CenterKfjjwycDTXTAIBCQY8000-25-65 09:45:00 Test Item Value Reference Range Interpretation Comments MCH (test code = MCH) 25.7 pg 27.0-31.0 L [facility] CenterLgxybcjMFVGQSAOTN3844-79-66 09:45:00 Test Item Value Reference Range Interpretation Comments MCHC (test code = MCHC) 31.6 32.0-36.0 L [facility] CenterEifpcbkQURATVBBKR2497-37-97 09:45:00 Test Item Value Reference Range Interpretation Comments WBC (test code = WBC) 15.0 3.7-10.4 H [facility] CenterRywztwnZDCSKWBEHN3507-74-78 09:45:00 Test Item Value Reference Range Interpretation Comments Hct (test code = Hct) 31.9 36.0-48.0 L [facility] CenterKrmazfdRGRHEDKUTQ6399-54-13 09:45:00 Test Item Value Reference Range Interpretation Comments Hgb (test code = Hgb) 10.1 12.0-16.0 L [facility] CenterWawznamRXICRCICCG7508-55-38 09:45:00 Test Item Value Reference Range Interpretation Comments RBC (test code = RBC) 3.93 4.20-5.40 L [facility] CenterVhgxsqqBCJMXVABV8297-98-76 09:45:00 Test Item Value Reference Range Interpretation Comments AST (test code = AST) 31 See_Comment N [Auto mated message] The system which ge nerated this result transmit ashanti reference range : <=37. The reference range was not used to interpr et this result as carmen l/abnormal. [facility] CenterDtghyzrNQSRSTMKC6583-40-45 09:45:00 Test Item Value Reference Range Interpretation Comments Bili Total (test code = Bili Total) 0.4 0.2-1.3 N [facility] CenterTiwlxzrIMNMLKZTP5574-87-38 09:45:00 Test Item Value Reference Range Interpretation Comments Alk Phos (test code = Alk Phos) 57 39-136 N [facility] CenterHuvcjjdWXSBCFZHR4844-93-73 09:45:00 Test Item Value Reference Range Interpretation Comments ALT (test code = ALT) 35 See_Comment N [Auto mated message] The system which ge nerated this result transmit sahanti reference range : <=65. The reference range was not used to interpr et this result as carmen l/abnormal. [facility] CenterDhnqdkkDRYELNIFL3934-81-23 09:45:00 Test Item Value Reference Range Interpretation Comments Total Protein (test code = Total 5.9 6.4-8.4 L Protein) [facility] CenterJcfhkpmWBEZPGVGZ7934-02-89 09:45:00 Test Item Value Reference Range Interpretation Comments eGFR (test code = eGFR) 121 [facility] CenterQknfhsaSKFLYEJTG3546-67-08 09:45:00 Test Item Value Reference Range Interpretation Comments Calcium Lvl (test code = Calcium Lvl) 8.1 8.5-10.5 L [facility] CenterChzmdlrAJWFQTVFZ4118-94-28 09:45:00 Test Item Value Reference Range Interpretation Comments Albumin Lvl (test code = Albumin Lvl) 3.3 3.5-5.0 L [facility] CenterRsooqsuLLDFWMGHU0509-81-25 09:45:00 Test Item Value Reference Range Interpretation Comments Chloride Lvl (test code = Chloride Lvl) 104 95-109 N [facility] CenterJicueemWUMPDRRDJ5225-58-04 09:45:00 Test Item Value Reference Range Interpretation Comments CO2 (test code = CO2) 24 24-32 N [facility] CenterLjqjjitBPWNJFPLT3526-99-93 09:45:00 Test Item Value Reference Range Interpretation Comments Sodium Lvl (test code = Sodium Lvl) 140 135-145 N [facility] CenterObtcitoIHTBKRXND4267-02-20 09:45:00 Test Item Value Reference Range Interpretation Comments Potassium Lvl (test code = Potassium 4.2 3.5-5.1 N Lvl) [facility] CenterXpkmuxiIKZMUTIBJ0305-61-43 09:45:00 Test Item Value Reference Range Interpretation Comments BUN (test code = BUN) 8 7-22 N [facility] CenterXhfsqgcOYKKHHYLT8622-75-44 09:45:00 Test Item Value Reference Range Interpretation Comments Creatinine Lvl (test code = Creatinine 0.6 0.5-1.4 N Lvl) [facility] CenterImdugjcJHMEJJQYK9744-91-68 09:45:00 Test Item Value Reference Range Interpretation Comments Glucose Lvl (test code = Glucose Lvl) 87 70-99 N [facility] CenterAyiduyaINBNWWVHM6852-47-41 09:45:00 Test Item Value Reference Range Interpretation Comments A/G Ratio (test code = A/G Ratio) 1.3 0.7-1.6 N [facility] CenterSrlreygASXUXOYXC0231-92-77 09:45:00 Test Item Value Reference Range Interpretation Comments Globulin (test code = Globulin) 2.6 2.0-4.0 N [facility] CenterBwgupdoTSBPYERXQ2240-22-74 09:45:00 Test Item Value Reference Range Interpretation Comments AGAP (test code = AGAP) 16.2 10.0-20.0 N [facility] CenterOuvovqzOIWORVXLY8983-61-45 09:45:00 Test Item Value Reference Range Interpretation Comments B/C Ratio (test code = B/C Ratio) 13 6-25 N [facility] CenterQqpwljoLHWMVJJGYO2433-29-04 09:45:00 Test Item Value Reference Range Interpretation Comments Lymphocytes (test code = Lymphocytes) 11.0 20.0-40.0 L [facility] CenterWfyqwqkIVIVGBTIJT9865-20-01 09:45:00 Test Item Value Reference Range Interpretation Comments Segs (test code = Segs) 86.0 45.0-75.0 H [facility] CenterXlwxwyqRBIDRWGAUR0590-03-20 09:45:00 Test Item Value Reference Range Interpretation Comments Bands (test code = 1.0 See_Comment N [Automat ed message] The Bands) system which ge nerated this result transmit ashanti reference range : <=11.0. The reference r megan was not used to interpr et this result as carmen l/abnormal. [facility] CenterMhorgoyMKGANMYTAY4027-11-40 09:45:00 Test Item Value Reference Range Interpretation Comments Lymphocytes # (test code = Lymphocytes 1.6 1.0-5.5 N #) [facility] CenterIwzbrxxAKCLRBZFPU9543-02-25 09:45:00 Test Item Value Reference Range Interpretation Comments Monocytes # (test code 0.0 See_Comment N [Aut omated message] The = Monocytes #) system which generated this result tra nsmitted reference range : <=0.8. The reference r megan was not used to int erpret this result as normal/abnormal . [facility] CenterAxcrewpLEYVOLZBXO5212-48-46 09:45:00 Test Item Value Reference Range Interpretation Comments Segs-Bands # (test code = Segs-Bands #) 13.0 1.5-8.1 H [facility] CenterEhjoocdGGBPOMHWGK6089-67-96 09:45:00 Test Item Value Reference Range Interpretation Comments Plt Morph (test code = Normal (12/11/2012 N Plt Morph) 03:45:00) [facility] CenterXhyohzjPPIGQCPPTW0792-56-16 09:45:00 Test Item Value Reference Range Interpretation Comments Hypochrom (test code = Slight (12/11/2012 N Hypochrom) 03:45:00) [facility] CenterCbylkesVZUAVGGYVN8874-47-31 09:45:00 Test Item Value Reference Range Interpretation Comments Myelocytes (test code = Myelocytes) 1.0 H [facility] CenterPgrjrnbEUOWZYUVNP7515-21-39 09:45:00 Test Item Value Reference Range Interpretation Comments Atypical Lymphs (test code = Atypical 0.0 N Lymphs) [facility] CenterUbiwlrbETAXTKZGWC3047-17-24 09:45:00 Test Item Value Reference Range Interpretation Comments Monocytes (test code = Monocytes) 0.0 2.0-12.0 L [facility] CenterNkzcvqjTUGIAJYKTY3370-98-84 09:45:00 Test Item Value Reference Range Interpretation Comments Metamyelocytes (test code 1.0 See_Comment N [ Automated message] = Metamyelocytes) The system which generated this result transmitted ref erence range: <=1.0. T he reference range was not used to int erpret this result as normal/abnormal . [facility] CenterJlhirndMBJTLMMTML2477-40-48 09:45:00 Test Item Value Reference Range Interpretation Comments RDW (test code = RDW) 16.2 11.5-14.5 H [facility] CenterUvwvewtFYGHMSHHWN0706-30-51 09:45:00 Test Item Value Reference Range Interpretation Comments Platelet (test code = Platelet) 268 133-450 N [facility] CenterNbzzquqKDWRYYUUKT0559-07-66 09:45:00 Test Item Value Reference Range Interpretation Comments MPV (test code = MPV) 9.0 7.4-10.4 N [facility] CenterOohaibpJMNMCFRKQQ2206-64-33 09:45:00 Test Item Value Reference Range Interpretation Comments MCV (test code = MCV) 81.2 81.0-99.0 N [facility] CenterDiregfrBLBOKIQUXE6333-30-55 09:45:00 Test Item Value Reference Range Interpretation Comments MCH (test code = MCH) 25.7 pg 27.0-31.0 L [facility] CenterKillfvjQJHUTAVXZZ1975-86-25 09:45:00 Test Item Value Reference Range Interpretation Comments MCHC (test code = MCHC) 31.6 32.0-36.0 L [facility] CenterWdaotqlHSZKQACKJY4462-41-94 09:45:00 Test Item Value Reference Range Interpretation Comments WBC (test code = WBC) 15.0 3.7-10.4 H [facility] CenterPprxnqwHKXTVKFGWZ9006-15-15 09:45:00 Test Item Value Reference Range Interpretation Comments Hct (test code = Hct) 31.9 36.0-48.0 L [facility] CenterHwaeltiGJMIHGCJCB5747-46-78 09:45:00 Test Item Value Reference Range Interpretation Comments Hgb (test code = Hgb) 10.1 12.0-16.0 L [facility] CenterLtlgoadICKQUGCBCM4036-75-04 09:45:00 Test Item Value Reference Range Interpretation Comments RBC (test code = RBC) 3.93 4.20-5.40 L [facility] CenterWsnlftmQNCBZIXLN5420-14-72 09:45:00 Test Item Value Reference Range Interpretation Comments AST (test code = AST) 31 See_Comment N [Auto mated message] The system which ge nerated this result transmit ashanti reference range : <=37. The reference range was not used to interpr et this result as carmen l/abnormal. [facility] CenterUjbwebkAYUPCKKRH5729-11-55 09:45:00 Test Item Value Reference Range Interpretation Comments Bili Total (test code = Bili Total) 0.4 0.2-1.3 N [facility] CenterCyzqhsnXFHFOIKOZ2667-45-70 09:45:00 Test Item Value Reference Range Interpretation Comments Alk Phos (test code = Alk Phos) 57 39-136 N [facility] CenterWwvbxvjSEOADXPRM1197-36-12 09:45:00 Test Item Value Reference Range Interpretation Comments ALT (test code = ALT) 35 See_Comment N [Auto mated message] The system which ge nerated this result transmit ashanti reference range : <=65. The reference range was not used to interpr et this result as carmen l/abnormal. [facility] CenterUwqrgjrDUWBOQGCZ0462-65-55 09:45:00 Test Item Value Reference Range Interpretation Comments Total Protein (test code = Total 5.9 6.4-8.4 L Protein) [facility] CenterVxfrzerZEODFOXMR7771-96-23 09:45:00 Test Item Value Reference Range Interpretation Comments eGFR (test code = eGFR) 121 [facility] CenterIyofyrlXUNSQZSED2403-37-19 09:45:00 Test Item Value Reference Range Interpretation Comments Calcium Lvl (test code = Calcium Lvl) 8.1 8.5-10.5 L [facility] CenterCoultuaOOLGZHBRA0389-61-23 09:45:00 Test Item Value Reference Range Interpretation Comments Albumin Lvl (test code = Albumin Lvl) 3.3 3.5-5.0 L [facility] CenterMkqfttfTANDEVJJP5920-07-26 09:45:00 Test Item Value Reference Range Interpretation Comments Chloride Lvl (test code = Chloride Lvl) 104 95-109 N [facility] CenterIplodxtWLACFDDVA5659-00-35 09:45:00 Test Item Value Reference Range Interpretation Comments CO2 (test code = CO2) 24 24-32 N [facility] CenterZjejfezRIARURATN6810-15-97 09:45:00 Test Item Value Reference Range Interpretation Comments Sodium Lvl (test code = Sodium Lvl) 140 135-145 N [facility] CenterRznhisuYIQFBCVBD2259-86-59 09:45:00 Test Item Value Reference Range Interpretation Comments Potassium Lvl (test code = Potassium 4.2 3.5-5.1 N Lvl) [facility] CenterTdipqwyTZYQWXUPV5765-59-43 09:45:00 Test Item Value Reference Range Interpretation Comments BUN (test code = BUN) 8 7-22 N [facility] CenterZubcfjiYHHLPSBLZ1526-29-81 09:45:00 Test Item Value Reference Range Interpretation Comments Creatinine Lvl (test code = Creatinine 0.6 0.5-1.4 N Lvl) [facility] CenterZsftovgOATZMISNN6534-10-95 09:45:00 Test Item Value Reference Range Interpretation Comments Glucose Lvl (test code = Glucose Lvl) 87 70-99 N [facility] CenterXqlbyuaYAFAKFLGV1918-93-91 09:45:00 Test Item Value Reference Range Interpretation Comments A/G Ratio (test code = A/G Ratio) 1.3 0.7-1.6 N [facility] CenterPydgrhrLZJPVLVOJ0013-86-35 09:45:00 Test Item Value Reference Range Interpretation Comments Globulin (test code = Globulin) 2.6 2.0-4.0 N [facility] CenterImridrnVCPBSCXBO0674-36-95 09:45:00 Test Item Value Reference Range Interpretation Comments AGAP (test code = AGAP) 16.2 10.0-20.0 N [facility] CenterCfotrjjGFENUMZKP0371-18-43 09:45:00 Test Item Value Reference Range Interpretation Comments B/C Ratio (test code = B/C Ratio) 13 6-25 N [facility] CenterGxpreoyFICJIBCWBR8198-99-08 09:45:00 Test Item Value Reference Range Interpretation Comments Lymphocytes (test code = Lymphocytes) 11.0 20.0-40.0 L [facility] CenterBtifntrKZHWMLROQO5900-57-52 09:45:00 Test Item Value Reference Range Interpretation Comments Segs (test code = Segs) 86.0 45.0-75.0 H [facility] CenterYnrrmmmXYFLIPGLXW4358-71-16 09:45:00 Test Item Value Reference Range Interpretation Comments Bands (test code = 1.0 See_Comment N [Automat ed message] The Bands) system which ge nerated this result transmit ashanti reference range : <=11.0. The reference r megan was not used to interpr et this result as carmen l/abnormal. [facility] CenterUvxhawuGRZWKEPBVW8069-44-15 09:45:00 Test Item Value Reference Range Interpretation Comments Lymphocytes # (test code = Lymphocytes 1.6 1.0-5.5 N #) [facility] CenterEsnniymJIOGJPFWRU9282-61-67 09:45:00 Test Item Value Reference Range Interpretation Comments Monocytes # (test code 0.0 See_Comment N [Aut omated message] The = Monocytes #) system which generated this result tra nsmitted reference range : <=0.8. The reference r megan was not used to int erpret this result as normal/abnormal . [facility] CenterOiuqxqjMMZCJJBVOR3118-03-20 09:45:00 Test Item Value Reference Range Interpretation Comments Segs-Bands # (test code = Segs-Bands #) 13.0 1.5-8.1 H [facility] CenterUsvqiupPZHBKRUKDL1369-25-03 09:45:00 Test Item Value Reference Range Interpretation Comments Plt Morph (test code = Normal (12/11/2012 N Plt Morph) 03:45:00) [facility] CenterNovrptyRIYNQUJIPR1457-33-47 09:45:00 Test Item Value Reference Range Interpretation Comments Hypochrom (test code = Slight (12/11/2012 N Hypochrom) 03:45:00) [facility] CenterQfdxzkrPHLBYAVKCP1994-94-59 09:45:00 Test Item Value Reference Range Interpretation Comments Myelocytes (test code = Myelocytes) 1.0 H [facility] CenterJkjjsgfCFDSSKCRVE8657-18-18 09:45:00 Test Item Value Reference Range Interpretation Comments Atypical Lymphs (test code = Atypical 0.0 N Lymphs) [facility] CenterPtkwmgyDKXKQXUEAM7346-43-94 09:45:00 Test Item Value Reference Range Interpretation Comments Monocytes (test code = Monocytes) 0.0 2.0-12.0 L [facility] CenterMkzjrewZEQWSRYKRB4933-06-18 09:45:00 Test Item Value Reference Range Interpretation Comments Metamyelocytes (test code 1.0 See_Comment N [ Automated message] = Metamyelocytes) The system which generated this result transmitted ref erence range: <=1.0. T he reference range was not used to int erpret this result as normal/abnormal . [facility] CenterYpjcvvlDRCRISOKHA7209-53-06 09:45:00 Test Item Value Reference Range Interpretation Comments RDW (test code = RDW) 16.2 11.5-14.5 H [facility] CenterCbcrmbsKIHVXRYAAT0662-72-16 09:45:00 Test Item Value Reference Range Interpretation Comments Platelet (test code = Platelet) 268 133-450 N [facility] CenterVopmddqIWEUHZAOAF8241-91-16 09:45:00 Test Item Value Reference Range Interpretation Comments MPV (test code = MPV) 9.0 7.4-10.4 N [facility] CenterZliuovcMAVZPHVNZC6623-61-16 09:45:00 Test Item Value Reference Range Interpretation Comments MCV (test code = MCV) 81.2 81.0-99.0 N [facility] CenterMmgbuiuMCLDEEPTXC0629-01-94 09:45:00 Test Item Value Reference Range Interpretation Comments MCH (test code = MCH) 25.7 pg 27.0-31.0 L [facility] CenterBetsomvSSHFBBNUXR1229-38-71 09:45:00 Test Item Value Reference Range Interpretation Comments MCHC (test code = MCHC) 31.6 32.0-36.0 L [facility] CenterOmjpxkoRFTPBVPBYM6931-30-96 09:45:00 Test Item Value Reference Range Interpretation Comments WBC (test code = WBC) 15.0 3.7-10.4 H [facility] CenterLdxfbhcXDMRKLXLPW8337-79-12 09:45:00 Test Item Value Reference Range Interpretation Comments Hct (test code = Hct) 31.9 36.0-48.0 L [facility] CenterKjvnrclKAMOKGAVEJ8782-08-84 09:45:00 Test Item Value Reference Range Interpretation Comments Hgb (test code = Hgb) 10.1 12.0-16.0 L [facility] CenterXvpbmgyHNBODKXIWE6121-03-60 09:45:00 Test Item Value Reference Range Interpretation Comments RBC (test code = RBC) 3.93 4.20-5.40 L [facility] CenterHyppmxgYEBAPFYIU1096-31-49 09:45:00 Test Item Value Reference Range Interpretation Comments AST (test code = AST) 31 See_Comment N [Auto mated message] The system which ge nerated this result transmit ashanti reference range : <=37. The reference range was not used to interpr et this result as carmen l/abnormal. [facility] CenterQwptbsyGKJUYKSGZ1493-52-53 09:45:00 Test Item Value Reference Range Interpretation Comments Bili Total (test code = Bili Total) 0.4 0.2-1.3 N [facility] CenterQmzkjvdUEMOFBBAN7058-63-96 09:45:00 Test Item Value Reference Range Interpretation Comments Alk Phos (test code = Alk Phos) 57 39-136 N [facility] CenterYklxmamHTGLDNVBA5396-75-31 09:45:00 Test Item Value Reference Range Interpretation Comments ALT (test code = ALT) 35 See_Comment N [Auto mated message] The system which ge nerated this result transmit ashanti reference range : <=65. The reference range was not used to interpr et this result as carmen l/abnormal. [facility] CenterZspvkynBRLBCHXKP8474-48-42 09:45:00 Test Item Value Reference Range Interpretation Comments Total Protein (test code = Total 5.9 6.4-8.4 L Protein) [facility] CenterDurvmpdQNBWXYACK9527-69-14 09:45:00 Test Item Value Reference Range Interpretation Comments eGFR (test code = eGFR) 121 [facility] CenterOxdvmrqBLNSLPFUQ2275-33-87 09:45:00 Test Item Value Reference Range Interpretation Comments Calcium Lvl (test code = Calcium Lvl) 8.1 8.5-10.5 L [facility] CenterPqiwbbfLQXJDSKUX8578-79-30 09:45:00 Test Item Value Reference Range Interpretation Comments Albumin Lvl (test code = Albumin Lvl) 3.3 3.5-5.0 L [facility] CenterIzrybuwCTYRWPTON2103-23-88 09:45:00 Test Item Value Reference Range Interpretation Comments Chloride Lvl (test code = Chloride Lvl) 104 95-109 N [facility] CenterSxrctrwKWMPHUQPO4386-52-99 09:45:00 Test Item Value Reference Range Interpretation Comments CO2 (test code = CO2) 24 24-32 N [facility] CenterKthilstYPIEIOAAO0514-23-27 09:45:00 Test Item Value Reference Range Interpretation Comments Sodium Lvl (test code = Sodium Lvl) 140 135-145 N [facility] CenterPlukaquEQIZLLZAI1936-44-60 09:45:00 Test Item Value Reference Range Interpretation Comments Potassium Lvl (test code = Potassium 4.2 3.5-5.1 N Lvl) [facility] CenterAeiijnjDOQCFHAIY1498-83-43 09:45:00 Test Item Value Reference Range Interpretation Comments BUN (test code = BUN) 8 7-22 N [facility] CenterYpahwcfHNFCLBBPD0687-68-76 09:45:00 Test Item Value Reference Range Interpretation Comments Creatinine Lvl (test code = Creatinine 0.6 0.5-1.4 N Lvl) [facility] CenterCeuqxwmOZQWXTRWS8116-32-11 09:45:00 Test Item Value Reference Range Interpretation Comments Glucose Lvl (test code = Glucose Lvl) 87 70-99 N [facility] CenterNbvmzqbNNQZLTJGA6391-16-81 09:45:00 Test Item Value Reference Range Interpretation Comments A/G Ratio (test code = A/G Ratio) 1.3 0.7-1.6 N [facility] CenterFfupykqEHOYPRWLH6135-94-16 09:45:00 Test Item Value Reference Range Interpretation Comments Globulin (test code = Globulin) 2.6 2.0-4.0 N [facility] CenterIznwgbdSUYSUECUU9190-51-67 09:45:00 Test Item Value Reference Range Interpretation Comments AGAP (test code = AGAP) 16.2 10.0-20.0 N [facility] CenterKnaafjoDXZUETMCN8609-99-66 09:45:00 Test Item Value Reference Range Interpretation Comments B/C Ratio (test code = B/C Ratio) 13 6-25 N [facility] CenterWadsdbwYKRGPLMUOE8801-66-90 09:45:00 Test Item Value Reference Range Interpretation Comments Lymphocytes (test code = Lymphocytes) 11.0 20.0-40.0 L [facility] CenterAcwieblGFPEOUIMHE0233-45-96 09:45:00 Test Item Value Reference Range Interpretation Comments Segs (test code = Segs) 86.0 45.0-75.0 H [facility] CenterMedvcluZCMXXXRWOS8769-47-21 09:45:00 Test Item Value Reference Range Interpretation Comments Bands (test code = 1.0 See_Comment N [Automat ed message] The Bands) system which ge nerated this result transmit ashanti reference range : <=11.0. The reference r megan was not used to interpr et this result as carmen l/abnormal. [facility] CenterOidlejsGFPOWCBRSI1140-08-99 09:45:00 Test Item Value Reference Range Interpretation Comments Lymphocytes # (test code = Lymphocytes 1.6 1.0-5.5 N #) [facility] CenterGwuupdhMHKHZJYHTO9465-07-69 09:45:00 Test Item Value Reference Range Interpretation Comments Monocytes # (test code 0.0 See_Comment N [Aut omated message] The = Monocytes #) system which generated this result tra nsmitted reference range : <=0.8. The reference r megan was not used to int erpret this result as normal/abnormal . [facility] CenterRriujqoQQTNWNPHQX6927-83-34 09:45:00 Test Item Value Reference Range Interpretation Comments Segs-Bands # (test code = Segs-Bands #) 13.0 1.5-8.1 H [facility] CenterZzkgdwmDVEHCUHHUC7801-13-87 09:45:00 Test Item Value Reference Range Interpretation Comments Plt Morph (test code = Normal (12/11/2012 N Plt Morph) 03:45:00) [facility] CenterUrjvodwHJQNAUYYFX2580-92-68 09:45:00 Test Item Value Reference Range Interpretation Comments Hypochrom (test code = Slight (12/11/2012 N Hypochrom) 03:45:00) [facility] CenterOwkxmzxUWSJUZLUQZ4991-32-30 09:45:00 Test Item Value Reference Range Interpretation Comments Myelocytes (test code = Myelocytes) 1.0 H [facility] CenterSmqhtvjSWRTRLVHQK9462-42-87 09:45:00 Test Item Value Reference Range Interpretation Comments Atypical Lymphs (test code = Atypical 0.0 N Lymphs) [facility] CenterBfeznabEKWCSTFXVQ6984-98-42 09:45:00 Test Item Value Reference Range Interpretation Comments Monocytes (test code = Monocytes) 0.0 2.0-12.0 L [facility] CenterCgvpbhqMLUCVGNASN3718-90-04 09:45:00 Test Item Value Reference Range Interpretation Comments Metamyelocytes (test code 1.0 See_Comment N [ Automated message] = Metamyelocytes) The system which generated this result transmitted ref erence range: <=1.0. T he reference range was not used to int erpret this result as normal/abnormal . [facility] CenterYxlikvgPGMUYHEROP0404-68-30 09:45:00 Test Item Value Reference Range Interpretation Comments RDW (test code = RDW) 16.2 11.5-14.5 H [facility] CenterKfajyykHCFFWFJRCQ4818-36-88 09:45:00 Test Item Value Reference Range Interpretation Comments Platelet (test code = Platelet) 268 133-450 N [facility] CenterYbezwzaYCFJGNQSMU8718-85-26 09:45:00 Test Item Value Reference Range Interpretation Comments MPV (test code = MPV) 9.0 7.4-10.4 N [facility] CenterXrnemluPGKYIKCBLX0605-41-65 09:45:00 Test Item Value Reference Range Interpretation Comments MCV (test code = MCV) 81.2 81.0-99.0 N [facility] CenterQtjukvdPMVKQFLAIY1703-73-68 09:45:00 Test Item Value Reference Range Interpretation Comments MCH (test code = MCH) 25.7 pg 27.0-31.0 L [facility] CenterVszsjoaRFFOCVEYNY2521-06-35 09:45:00 Test Item Value Reference Range Interpretation Comments MCHC (test code = MCHC) 31.6 32.0-36.0 L [facility] CenterHaydluuCUOOMLGQHL4612-26-46 09:45:00 Test Item Value Reference Range Interpretation Comments WBC (test code = WBC) 15.0 3.7-10.4 H [facility] CenterNuuudjxMKIXRYSOXH3663-54-06 09:45:00 Test Item Value Reference Range Interpretation Comments Hct (test code = Hct) 31.9 36.0-48.0 L [facility] CenterFejbpoxUZLYDWYLEE2767-55-37 09:45:00 Test Item Value Reference Range Interpretation Comments Hgb (test code = Hgb) 10.1 12.0-16.0 L [facility] CenterJwfiztuXIDDZJZHBR6741-03-45 09:45:00 Test Item Value Reference Range Interpretation Comments RBC (test code = RBC) 3.93 4.20-5.40 L [facility] CenterPocmjeaQHXBKDCWS2644-84-02 09:45:00 Test Item Value Reference Range Interpretation Comments AST (test code = AST) 31 See_Comment N [Auto mated message] The system which ge nerated this result transmit ashanti reference range : <=37. The reference range was not used to interpr et this result as carmen l/abnormal. [facility]RetvjdiEINASMYHX1723-54-37 09:45:00 Test Item Value Reference Range Interpretation Comments Bili Total (test code = Bili Total) 0.4 0.2-1.3 N [facility] CenterNgvukahSUWEETXNF2139-95-35 09:45:00 Test Item Value Reference Range Interpretation Comments Alk Phos (test code = Alk Phos) 57 39-136 N [facility] CenterGwxtnlzEWGQAARVQ8554-35-51 09:45:00 Test Item Value Reference Range Interpretation Comments ALT (test code = ALT) 35 See_Comment N [Auto mated message] The system which ge nerated this result transmit ashanti reference range : <=65. The reference range was not used to interpr et this result as carmen l/abnormal. [facility] CenterNbtlxcxLXYDGZMEF9057-17-51 09:45:00 Test Item Value Reference Range Interpretation Comments Total Protein (test code = Total 5.9 6.4-8.4 L Protein) [facility] CenterUyeojtvZLVBAOVSG1704-41-76 09:45:00 Test Item Value Reference Range Interpretation Comments eGFR (test code = eGFR) 121 [facility] CenterYzzewnuQRCOPFYBV7272-24-69 09:45:00 Test Item Value Reference Range Interpretation Comments Calcium Lvl (test code = Calcium Lvl) 8.1 8.5-10.5 L [facility] CenterHzcapwkIFDVNNYYN7426-60-56 09:45:00 Test Item Value Reference Range Interpretation Comments Albumin Lvl (test code = Albumin Lvl) 3.3 3.5-5.0 L [facility] CenterCbfmdxdSNEWUVGFF8689-05-80 09:45:00 Test Item Value Reference Range Interpretation Comments Chloride Lvl (test code = Chloride Lvl) 104 95-109 N [facility] CenterPdljcuuCUTYVEKCJ6224-61-12 09:45:00 Test Item Value Reference Range Interpretation Comments CO2 (test code = CO2) 24 24-32 N [facility] CenterJxsncymEUXIHWTHQ1002-13-40 09:45:00 Test Item Value Reference Range Interpretation Comments Sodium Lvl (test code = Sodium Lvl) 140 135-145 N [facility] CenterWexsgrtKZFHFXEMQ8471-92-98 09:45:00 Test Item Value Reference Range Interpretation Comments Potassium Lvl (test code = Potassium 4.2 3.5-5.1 N Lvl) [facility] CenterQmdyhvzEIDZSIFGS2203-39-87 09:45:00 Test Item Value Reference Range Interpretation Comments BUN (test code = BUN) 8 7-22 N [facility] CenterKgiratsAPODYELFW1399-15-88 09:45:00 Test Item Value Reference Range Interpretation Comments Creatinine Lvl (test code = Creatinine 0.6 0.5-1.4 N Lvl) [facility] CenterGsfouwgGXFPGXAMY3633-21-58 09:45:00 Test Item Value Reference Range Interpretation Comments Glucose Lvl (test code = Glucose Lvl) 87 70-99 N [facility] CenterUnidmiyVHIDPJQPY3493-23-36 09:45:00 Test Item Value Reference Range Interpretation Comments A/G Ratio (test code = A/G Ratio) 1.3 0.7-1.6 N [facility] CenterCdbgjzjJWILWTSRY7352-75-10 09:45:00 Test Item Value Reference Range Interpretation Comments Globulin (test code = Globulin) 2.6 2.0-4.0 N [facility] CenterLbpjxitJSQCTJJNF2069-77-35 09:45:00 Test Item Value Reference Range Interpretation Comments AGAP (test code = AGAP) 16.2 10.0-20.0 N [facility] CenterYrinjhfQUKLUYJLJ4718-66-35 09:45:00 Test Item Value Reference Range Interpretation Comments B/C Ratio (test code = B/C Ratio) 13 6-25 N [facility] CenterDshcclrSVYFZESNTG7333-17-42 09:45:00 Test Item Value Reference Range Interpretation Comments Lymphocytes (test code = Lymphocytes) 11.0 20.0-40.0 L [facility] CenterCwlijbgVWYULGXTIL9569-82-83 09:45:00 Test Item Value Reference Range Interpretation Comments Segs (test code = Segs) 86.0 45.0-75.0 H [facility] CenterOienxhxOCLCBHRBZN7090-87-17 09:45:00 Test Item Value Reference Range Interpretation Comments Bands (test code = 1.0 See_Comment N [Automat ed message] The Bands) system which ge nerated this result transmit ashanti reference range : <=11.0. The reference r megan was not used to interpr et this result as carmen l/abnormal. [facility] CenterXbllpheMLOQHPCCMI5571-82-46 09:45:00 Test Item Value Reference Range Interpretation Comments Lymphocytes # (test code = Lymphocytes 1.6 1.0-5.5 N #) [facility] CenterEifpgkbVITDRSIAIG8064-47-08 09:45:00 Test Item Value Reference Range Interpretation Comments Monocytes # (test code 0.0 See_Comment N [Aut omated message] The = Monocytes #) system which generated this result tra nsmitted reference range : <=0.8. The reference r megan was not used to int erpret this result as normal/abnormal . [facility] CenterHwernluQZZWHYJOYH0523-22-19 09:45:00 Test Item Value Reference Range Interpretation Comments Segs-Bands # (test code = Segs-Bands #) 13.0 1.5-8.1 H [facility] CenterTtvlexvNVCZREVLVD5482-14-21 09:45:00 Test Item Value Reference Range Interpretation Comments Plt Morph (test code = Normal (12/11/2012 N Plt Morph) 03:45:00) [facility] CenterEtucgjeQVPHUKCWNT1836-72-01 09:45:00 Test Item Value Reference Range Interpretation Comments Hypochrom (test code = Slight (12/11/2012 N Hypochrom) 03:45:00) [facility] CenterCtmtrzhPAARGPDLQY4669-66-51 09:45:00 Test Item Value Reference Range Interpretation Comments Myelocytes (test code = Myelocytes) 1.0 H [facility] CenterLkpnshnWFEEYNXNLC9827-73-79 09:45:00 Test Item Value Reference Range Interpretation Comments Atypical Lymphs (test code = Atypical 0.0 N Lymphs) [facility] CenterUnrddyaSLNJURCPZS3571-96-49 09:45:00 Test Item Value Reference Range Interpretation Comments Monocytes (test code = Monocytes) 0.0 2.0-12.0 L [facility] CenterDajuondWZYSBLDTFF0536-72-72 09:45:00 Test Item Value Reference Range Interpretation Comments Metamyelocytes (test code 1.0 See_Comment N [ Automated message] = Metamyelocytes) The system which generated this result transmitted ref erence range: <=1.0. T he reference range was not used to int erpret this result as normal/abnormal . [facility] CenterVurgqrmNSBIXLMLKD4639-97-94 09:45:00 Test Item Value Reference Range Interpretation Comments RDW (test code = RDW) 16.2 11.5-14.5 H [facility] CenterVhizyhgOXXEGOOYJA8892-22-78 09:45:00 Test Item Value Reference Range Interpretation Comments Platelet (test code = Platelet) 268 133-450 N [facility] CenterUcdzizzQMHKOKNMYT9638-41-82 09:45:00 Test Item Value Reference Range Interpretation Comments MPV (test code = MPV) 9.0 7.4-10.4 N [facility] CenterWsqjrcrIMMZNTQENB0980-94-33 09:45:00 Test Item Value Reference Range Interpretation Comments MCV (test code = MCV) 81.2 81.0-99.0 N [facility] CenterIhcobupJAWKYQOVCQ3947-73-97 09:45:00 Test Item Value Reference Range Interpretation Comments MCH (test code = MCH) 25.7 pg 27.0-31.0 L [facility] CenterEqtedssLCZKIACTSR8709-83-35 09:45:00 Test Item Value Reference Range Interpretation Comments MCHC (test code = MCHC) 31.6 32.0-36.0 L [facility] CenterWdnjsysBVYRARKEHE5280-25-39 09:45:00 Test Item Value Reference Range Interpretation Comments WBC (test code = WBC) 15.0 3.7-10.4 H [facility] CenterLlscjmzAHMGNKSKLD7673-54-38 09:45:00 Test Item Value Reference Range Interpretation Comments Hct (test code = Hct) 31.9 36.0-48.0 L [facility] CenterVrhnlisLIBKRYSIIP9642-18-21 09:45:00 Test Item Value Reference Range Interpretation Comments Hgb (test code = Hgb) 10.1 12.0-16.0 L [facility] CenterFqoetntSBLUDJGOZS6584-65-71 09:45:00 Test Item Value Reference Range Interpretation Comments RBC (test code = RBC) 3.93 4.20-5.40 L [facility] CenterQporxhpZEGUENGNZ2550-98-56 09:45:00 Test Item Value Reference Range Interpretation Comments AST (test code = AST) 31 See_Comment N [Auto mated message] The system which ge nerated this result transmit ashanti reference range : <=37. The reference range was not used to interpr et this result as carmen l/abnormal. [facility] SkzggajCJDADTRHZ8228-24-89 09:45:00 Test Item Value Reference Range Interpretation Comments Bili Total (test code = Bili Total) 0.4 0.2-1.3 N [facility] AgjshtsHZCTQWLJW9426-18-86 09:45:00 Test Item Value Reference Range Interpretation Comments Alk Phos (test code = Alk Phos) 57 39-136 N [facility] WufgqjyIIEEKEEGW4849-58-03 09:45:00 Test Item Value Reference Range Interpretation Comments ALT (test code = ALT) 35 See_Comment N [Auto mated message] The system which ge nerated this result transmit ashanti reference range : <=65. The reference range was not used to interpr et this result as carmen l/abnormal. [facility] DxcxytfZKSRDOOZA1872-85-13 09:45:00 Test Item Value Reference Range Interpretation Comments Total Protein (test code = Total 5.9 6.4-8.4 L Protein) [facility]SujjmzpIEQLCAZNC5546-80-96 09:45:00 Test Item Value Reference Range Interpretation Comments eGFR (test code = eGFR) 121 [facility] BysaxrrIDIKFLFII2479-17-19 09:45:00 Test Item Value Reference Range Interpretation Comments Calcium Lvl (test code = Calcium Lvl) 8.1 8.5-10.5 L [facility] QswmbkqEENZXIQIE3117-58-01 09:45:00 Test Item Value Reference Range Interpretation Comments Albumin Lvl (test code = Albumin Lvl) 3.3 3.5-5.0 L [facility] ReqacruYUJAQQRWT1940-23-30 09:45:00 Test Item Value Reference Range Interpretation Comments Chloride Lvl (test code = Chloride Lvl) 104 95-109 N [facility] DpzmaprSWSYJUBCS5168-56-02 09:45:00 Test Item Value Reference Range Interpretation Comments CO2 (test code = CO2) 24 24-32 N [facility] XfcbdypYADZGSEUL4928-14-51 09:45:00 Test Item Value Reference Range Interpretation Comments Sodium Lvl (test code = Sodium Lvl) 140 135-145 N [facility] MlbjfqyXFTTAEKFX8252-13-94 09:45:00 Test Item Value Reference Range Interpretation Comments Potassium Lvl (test code = Potassium 4.2 3.5-5.1 N Lvl) [facility] CenterFtifuheIRVSVKMCZ6658-07-05 09:45:00 Test Item Value Reference Range Interpretation Comments BUN (test code = BUN) 8 7-22 N [facility] CenterAbkevpuYDZCWGHTB6656-20-36 09:45:00 Test Item Value Reference Range Interpretation Comments Creatinine Lvl (test code = Creatinine 0.6 0.5-1.4 N Lvl) [facility] CenterVgxspnnRWUJRJBOX6444-65-63 09:45:00 Test Item Value Reference Range Interpretation Comments Glucose Lvl (test code = Glucose Lvl) 87 70-99 N [facility] CenterQzhjwlhBXEXEAAHR3091-78-88 09:45:00 Test Item Value Reference Range Interpretation Comments A/G Ratio (test code = A/G Ratio) 1.3 0.7-1.6 N [facility] CenterPyvslbcWQQJGKXUF5286-69-96 09:45:00 Test Item Value Reference Range Interpretation Comments Globulin (test code = Globulin) 2.6 2.0-4.0 N [facility] CenterZypxknmGTWMTZDVC8963-37-55 09:45:00 Test Item Value Reference Range Interpretation Comments AGAP (test code = AGAP) 16.2 10.0-20.0 N [facility] CenterOpkceuuAVZLLEGHT5832-92-70 09:45:00 Test Item Value Reference Range Interpretation Comments B/C Ratio (test code = B/C Ratio) 13 6-25 N [facility] CenterKvviohuXSCEMJTDHB8920-69-07 09:45:00 Test Item Value Reference Range Interpretation Comments Lymphocytes (test code = Lymphocytes) 11.0 20.0-40.0 L [facility] CenterNgszlinMISDTKOCOA9850-30-98 09:45:00 Test Item Value Reference Range Interpretation Comments Segs (test code = Segs) 86.0 45.0-75.0 H [facility] CenterJbainfpDSVFCXFFUO1766-97-03 09:45:00 Test Item Value Reference Range Interpretation Comments Bands (test code = 1.0 See_Comment N [Automat ed message] The Bands) system which ge nerated this result transmit ashanti reference range : <=11.0. The reference r megan was not used to interpr et this result as carmen l/abnormal. [facility] CenterBytpodlADFLCOLVPT9556-12-65 09:45:00 Test Item Value Reference Range Interpretation Comments Lymphocytes # (test code = Lymphocytes 1.6 1.0-5.5 N #) [facility] CenterMkabgnpKEOZEJBFHW4579-39-98 09:45:00 Test Item Value Reference Range Interpretation Comments Monocytes # (test code 0.0 See_Comment N [Aut omated message] The = Monocytes #) system which generated this result tra nsmitted reference range : <=0.8. The reference r megan was not used to int erpret this result as normal/abnormal . [facility] CenterKmwckyoFSMOTULQJY9337-56-86 09:45:00 Test Item Value Reference Range Interpretation Comments Segs-Bands # (test code = Segs-Bands #) 13.0 1.5-8.1 H [facility] CenterDymzstfTHFJDJOEAG0835-82-86 09:45:00 Test Item Value Reference Range Interpretation Comments Plt Morph (test code = Normal (12/11/2012 N Plt Morph) 03:45:00) [facility] CenterGnemezsQXVCJYGKEV4077-96-24 09:45:00 Test Item Value Reference Range Interpretation Comments Hypochrom (test code = Slight (12/11/2012 N Hypochrom) 03:45:00) [facility] CenterNknmuhnXFDNJTSHXF5555-60-32 09:45:00 Test Item Value Reference Range Interpretation Comments Myelocytes (test code = Myelocytes) 1.0 H [facility] CenterJlrdajiJVBOLVBSVD9402-86-48 09:45:00 Test Item Value Reference Range Interpretation Comments Atypical Lymphs (test code = Atypical 0.0 N Lymphs) [facility] CenterIrewqkfQBVRMAOMTW4079-22-37 09:45:00 Test Item Value Reference Range Interpretation Comments Monocytes (test code = Monocytes) 0.0 2.0-12.0 L [facility] CenterSzmepzqXDDBNKHOJX9181-61-31 09:45:00 Test Item Value Reference Range Interpretation Comments Metamyelocytes (test code 1.0 See_Comment N [ Automated message] = Metamyelocytes) The system which generated this result transmitted ref erence range: <=1.0. T he reference range was not used to int erpret this result as normal/abnormal . [facility] CenterBloooziREMKWDEIJZ2751-70-29 09:45:00 Test Item Value Reference Range Interpretation Comments RDW (test code = RDW) 16.2 11.5-14.5 H [facility] CenterUkgayccNKLDGGQPXD0881-66-77 09:45:00 Test Item Value Reference Range Interpretation Comments Platelet (test code = Platelet) 268 133-450 N [facility] CenterKwexnyzKVDZHTJIZS7172-19-05 09:45:00 Test Item Value Reference Range Interpretation Comments MPV (test code = MPV) 9.0 7.4-10.4 N [facility] CenterPndsuwgGISGIVHFBX9718-38-91 09:45:00 Test Item Value Reference Range Interpretation Comments MCV (test code = MCV) 81.2 81.0-99.0 N [facility] CenterHtotxdiPEGKYGWWUQ1616-50-92 09:45:00 Test Item Value Reference Range Interpretation Comments MCH (test code = MCH) 25.7 pg 27.0-31.0 L [facility] CenterKyhhuirAUCQYIJCMI8121-99-64 09:45:00 Test Item Value Reference Range Interpretation Comments MCHC (test code = MCHC) 31.6 32.0-36.0 L [facility] CenterDetqifzYWLHYYYVXZ9159-21-64 09:45:00 Test Item Value Reference Range Interpretation Comments WBC (test code = WBC) 15.0 3.7-10.4 H [facility] CenterXavaihwFLHSLNCIRJ8982-91-03 09:45:00 Test Item Value Reference Range Interpretation Comments Hct (test code = Hct) 31.9 36.0-48.0 L [facility] CenterNsjskpzRYGULEHSER5081-64-40 09:45:00 Test Item Value Reference Range Interpretation Comments Hgb (test code = Hgb) 10.1 12.0-16.0 L [facility] CenterRguvejePQKHCICNNE1019-05-58 09:45:00 Test Item Value Reference Range Interpretation Comments RBC (test code = RBC) 3.93 4.20-5.40 L [facility] CenterZgncjhhUDRVEGQCA2973-81-68 09:45:00 Test Item Value Reference Range Interpretation Comments AST (test code = AST) 31 See_Comment N [Auto mated message] The system which ge nerated this result transmit ashanti reference range : <=37. The reference range was not used to interpr et this result as carmen l/abnormal. [facility] CenterJuzehvvAVXHKANTA4315-52-20 09:45:00 Test Item Value Reference Range Interpretation Comments Bili Total (test code = Bili Total) 0.4 0.2-1.3 N [facility] CenterVndntmlBVWIYHVQH1277-66-55 09:45:00 Test Item Value Reference Range Interpretation Comments Alk Phos (test code = Alk Phos) 57 39-136 N [facility] CenterTldsovxAAGNLDFBU0491-48-34 09:45:00 Test Item Value Reference Range Interpretation Comments ALT (test code = ALT) 35 See_Comment N [Auto mated message] The system which ge nerated this result transmit ashanti reference range : <=65. The reference range was not used to interpr et this result as carmen l/abnormal. [facility] CenterBffwaxwYXLFDETJN3156-37-72 09:45:00 Test Item Value Reference Range Interpretation Comments Total Protein (test code = Total 5.9 6.4-8.4 L Protein) [facility] CenterYivzhkzDMWGXQLHL1158-86-97 09:45:00 Test Item Value Reference Range Interpretation Comments eGFR (test code = eGFR) 121 [facility] CenterPwynknmHKPGPFWJG8036-31-95 09:45:00 Test Item Value Reference Range Interpretation Comments Calcium Lvl (test code = Calcium Lvl) 8.1 8.5-10.5 L [facility] CenterIqjawcyYEBQLCDLB8896-00-86 09:45:00 Test Item Value Reference Range Interpretation Comments Albumin Lvl (test code = Albumin Lvl) 3.3 3.5-5.0 L [facility] CenterQmvumeaCFLIIBGVH1983-10-01 09:45:00 Test Item Value Reference Range Interpretation Comments Chloride Lvl (test code = Chloride Lvl) 104 95-109 N [facility] CenterWktqqukBDRMVLRTI6977-00-06 09:45:00 Test Item Value Reference Range Interpretation Comments CO2 (test code = CO2) 24 24-32 N [facility] CenterEjljbtrVEBFKDQHX1514-53-24 09:45:00 Test Item Value Reference Range Interpretation Comments Sodium Lvl (test code = Sodium Lvl) 140 135-145 N [facility] CenterPtvunbhKFIHVOAEH7392-06-86 09:45:00 Test Item Value Reference Range Interpretation Comments Potassium Lvl (test code = Potassium 4.2 3.5-5.1 N Lvl) [facility] CenterVxfgnrmPKGJQDQEU1206-88-59 09:45:00 Test Item Value Reference Range Interpretation Comments BUN (test code = BUN) 8 7-22 N [facility] CenterGvxlkfwPRXQVFWEI7984-76-64 09:45:00 Test Item Value Reference Range Interpretation Comments Creatinine Lvl (test code = Creatinine 0.6 0.5-1.4 N Lvl) [facility] CenterSimazxnLMOCVFMRF6528-80-41 09:45:00 Test Item Value Reference Range Interpretation Comments Glucose Lvl (test code = Glucose Lvl) 87 70-99 N [facility] CenterKwmparyCOBJLVLLQ4852-23-93 09:45:00 Test Item Value Reference Range Interpretation Comments A/G Ratio (test code = A/G Ratio) 1.3 0.7-1.6 N [facility] CenterSzkzncoSHKJGIKAS7692-27-31 09:45:00 Test Item Value Reference Range Interpretation Comments Globulin (test code = Globulin) 2.6 2.0-4.0 N [facility] CenterGptpicqSBFUNNMYX8514-28-30 09:45:00 Test Item Value Reference Range Interpretation Comments AGAP (test code = AGAP) 16.2 10.0-20.0 N [facility] CenterKlauksjWWNOKZPKI2231-44-36 09:45:00 Test Item Value Reference Range Interpretation Comments B/C Ratio (test code = B/C Ratio) 13 6-25 N [facility] CenterKahzhdnELVFMBNSEH8156-68-22 09:45:00 Test Item Value Reference Range Interpretation Comments Lymphocytes (test code = Lymphocytes) 11.0 20.0-40.0 L [facility] CenterUggsbsxEJFRXBDUGF4766-10-34 09:45:00 Test Item Value Reference Range Interpretation Comments Segs (test code = Segs) 86.0 45.0-75.0 H [facility] CenterQghdutrSQUYACSTAT6513-65-84 09:45:00 Test Item Value Reference Range Interpretation Comments Bands (test code = 1.0 See_Comment N [Automat ed message] The Bands) system which ge nerated this result transmit ashanti reference range : <=11.0. The reference r megan was not used to interpr et this result as carmen l/abnormal. [facility] CenterTffucegWMGUKGQXVW1352-46-34 09:45:00 Test Item Value Reference Range Interpretation Comments Lymphocytes # (test code = Lymphocytes 1.6 1.0-5.5 N #) [facility] CenterOvcyyxeDRVHKSFXEQ1513-22-89 09:45:00 Test Item Value Reference Range Interpretation Comments Monocytes # (test code 0.0 See_Comment N [Aut omated message] The = Monocytes #) system which generated this result tra nsmitted reference range : <=0.8. The reference r megan was not used to int erpret this result as normal/abnormal . [facility] CenterBquzatbAIKKFSJQGI5358-84-28 09:45:00 Test Item Value Reference Range Interpretation Comments Segs-Bands # (test code = Segs-Bands #) 13.0 1.5-8.1 H [facility] CenterQrcrgzrUFOPNOIJRR0525-31-35 09:45:00 Test Item Value Reference Range Interpretation Comments Plt Morph (test code = Normal (12/11/2012 N Plt Morph) 03:45:00) [facility] CenterXjgpkikVUQSYBQLVB6830-30-25 09:45:00 Test Item Value Reference Range Interpretation Comments Hypochrom (test code = Slight (12/11/2012 N Hypochrom) 03:45:00) [facility] CenterBwukdqiAIDBBMAFCF1587-51-49 09:45:00 Test Item Value Reference Range Interpretation Comments Myelocytes (test code = Myelocytes) 1.0 H [facility] CenterYzewngzMSICKDOKZT0499-82-68 09:45:00 Test Item Value Reference Range Interpretation Comments Atypical Lymphs (test code = Atypical 0.0 N Lymphs) [facility] CenterCdtbgxhZIOLEZGQSN8239-21-86 09:45:00 Test Item Value Reference Range Interpretation Comments Monocytes (test code = Monocytes) 0.0 2.0-12.0 L [facility] CenterAetcxssPIAOFPMDCK2379-41-71 09:45:00 Test Item Value Reference Range Interpretation Comments Metamyelocytes (test code 1.0 See_Comment N [ Automated message] = Metamyelocytes) The system which generated this result transmitted ref erence range: <=1.0. T he reference range was not used to int erpret this result as normal/abnormal . [facility] CenterYcrzlenDSOVXAWJHG8477-08-97 09:45:00 Test Item Value Reference Range Interpretation Comments RDW (test code = RDW) 16.2 11.5-14.5 H [facility] CenterAzsaoonNIXZNPRMSA3277-03-80 09:45:00 Test Item Value Reference Range Interpretation Comments Platelet (test code = Platelet) 268 133-450 N [facility] CenterEakeaweXFWAXRRZKF1718-65-57 09:45:00 Test Item Value Reference Range Interpretation Comments MPV (test code = MPV) 9.0 7.4-10.4 N [facility] CenterQlwbmexNOQPRPGAQR1952-43-01 09:45:00 Test Item Value Reference Range Interpretation Comments MCV (test code = MCV) 81.2 81.0-99.0 N [facility] CenterSoasrmwKQFLVDEADK7485-21-33 09:45:00 Test Item Value Reference Range Interpretation Comments MCH (test code = MCH) 25.7 pg 27.0-31.0 L [facility] CenterBwpjhurEEVPCEQIUS4643-86-54 09:45:00 Test Item Value Reference Range Interpretation Comments MCHC (test code = MCHC) 31.6 32.0-36.0 L [facility] CenterEvddzuvQIXNEKYTKI4389-83-77 09:45:00 Test Item Value Reference Range Interpretation Comments WBC (test code = WBC) 15.0 3.7-10.4 H [facility] CenterUhxbkdnZSITLOTQOG1452-37-08 09:45:00 Test Item Value Reference Range Interpretation Comments Hct (test code = Hct) 31.9 36.0-48.0 L [facility] CenterAmgigvzVZDWCZHHDM5693-57-25 09:45:00 Test Item Value Reference Range Interpretation Comments Hgb (test code = Hgb) 10.1 12.0-16.0 L [facility] CenterQmlaqosGHZMKWFIXR6711-62-91 09:45:00 Test Item Value Reference Range Interpretation Comments RBC (test code = RBC) 3.93 4.20-5.40 L [facility] CenterBrrftfmRTMLDRYLF1560-51-78 09:45:00 Test Item Value Reference Range Interpretation Comments AST (test code = AST) 31 See_Comment N [Auto mated message] The system which ge nerated this result transmit ashanti reference range : <=37. The reference range was not used to interpr et this result as carmen l/abnormal. [facility] CenterLqbkxriCBSZDIWGL3439-20-53 09:45:00 Test Item Value Reference Range Interpretation Comments Bili Total (test code = Bili Total) 0.4 0.2-1.3 N [facility] CenterNqwwbbnXAEYDWBYK5355-49-08 09:45:00 Test Item Value Reference Range Interpretation Comments Alk Phos (test code = Alk Phos) 57 39-136 N [facility] CenterGnobagfUNYECEZRW6854-58-76 09:45:00 Test Item Value Reference Range Interpretation Comments ALT (test code = ALT) 35 See_Comment N [Auto mated message] The system which ge nerated this result transmit ashanti reference range : <=65. The reference range was not used to interpr et this result as carmen l/abnormal. [facility] CenterJnprhpfKSYJTBKUW4834-82-12 09:45:00 Test Item Value Reference Range Interpretation Comments Total Protein (test code = Total 5.9 6.4-8.4 L Protein) [facility] CenterGankaxzDOJHBAMCW5653-04-60 09:45:00 Test Item Value Reference Range Interpretation Comments eGFR (test code = eGFR) 121 [facility] CenterFanluoiLGWMMFOII0394-36-86 09:45:00 Test Item Value Reference Range Interpretation Comments Calcium Lvl (test code = Calcium Lvl) 8.1 8.5-10.5 L [facility] CenterTsvplhrFBSWFLUCH3222-03-52 09:45:00 Test Item Value Reference Range Interpretation Comments Albumin Lvl (test code = Albumin Lvl) 3.3 3.5-5.0 L [facility] CenterChunotlAVXIEZYRO3912-16-75 09:45:00 Test Item Value Reference Range Interpretation Comments Chloride Lvl (test code = Chloride Lvl) 104 95-109 N [facility] CenterJisqsbsSQCEWSIMB1465-74-95 09:45:00 Test Item Value Reference Range Interpretation Comments CO2 (test code = CO2) 24 24-32 N [facility] CenterClbqbqqOPZUJZPUB5291-38-27 09:45:00 Test Item Value Reference Range Interpretation Comments Sodium Lvl (test code = Sodium Lvl) 140 135-145 N [facility] CenterMevsfchWQVODORAE3852-17-79 09:45:00 Test Item Value Reference Range Interpretation Comments Potassium Lvl (test code = Potassium 4.2 3.5-5.1 N Lvl) [facility] CenterAvnelivBJPZJNSDU2814-38-08 09:45:00 Test Item Value Reference Range Interpretation Comments BUN (test code = BUN) 8 7-22 N [facility] CenterHhezygoGKRQVOWRS0357-09-56 09:45:00 Test Item Value Reference Range Interpretation Comments AST (test code = AST) 31 See_Comment N [Auto mated message] The system which ge nerated this result transmit ashanti reference range : <=37. The reference range was not used to interpr et this result as carmen l/abnormal. [facility] CenterKnjbarzDBRRPPXZA0791-51-53 09:45:00 Test Item Value Reference Range Interpretation Comments Creatinine Lvl (test code = Creatinine 0.6 0.5-1.4 N Lvl) [facility] CenterFfynsrqGCKLJPXAS9527-61-36 09:45:00 Test Item Value Reference Range Interpretation Comments Glucose Lvl (test code = Glucose Lvl) 87 70-99 N [facility] CenterBpdcvnuQVAIXIGSQ3010-22-48 09:45:00 Test Item Value Reference Range Interpretation Comments A/G Ratio (test code = A/G Ratio) 1.3 0.7-1.6 N [facility] CenterAfsgfcvYWCTFIMNV9937-13-63 09:45:00 Test Item Value Reference Range Interpretation Comments Globulin (test code = Globulin) 2.6 2.0-4.0 N [facility] CenterUfmnukqLYFEDBXHU2974-45-92 09:45:00 Test Item Value Reference Range Interpretation Comments AGAP (test code = AGAP) 16.2 10.0-20.0 N [facility] CenterUorpjcrNULHICWXC7141-45-30 09:45:00 Test Item Value Reference Range Interpretation Comments B/C Ratio (test code = B/C Ratio) 13 6-25 N [facility] CenterSkwjrpvJHKCSAGMXH2538-13-70 09:45:00 Test Item Value Reference Range Interpretation Comments Lymphocytes (test code = Lymphocytes) 11.0 20.0-40.0 L [facility] CenterBtalgrjGBVHZDKZUI3619-84-85 09:45:00 Test Item Value Reference Range Interpretation Comments Segs (test code = Segs) 86.0 45.0-75.0 H [facility] CenterFrqrerlSTHVSXTARF4700-62-45 09:45:00 Test Item Value Reference Range Interpretation Comments Bands (test code = 1.0 See_Comment N [Automat ed message] The Bands) system which ge nerated this result transmit ashanti reference range : <=11.0. The reference r megan was not used to interpr et this result as carmen l/abnormal. [facility] CenterEfqyasyNEXCCUOXMH8408-65-00 09:45:00 Test Item Value Reference Range Interpretation Comments Lymphocytes # (test code = Lymphocytes 1.6 1.0-5.5 N #) [facility] CenterIqlzimvDTHQENNNL6122-90-80 09:45:00 Test Item Value Reference Range Interpretation Comments Bili Total (test code = Bili Total) 0.4 0.2-1.3 N [facility] CenterEqfcwmoYLFLPVFZDP4271-58-51 09:45:00 Test Item Value Reference Range Interpretation Comments Monocytes # (test code 0.0 See_Comment N [Aut omated message] The = Monocytes #) system which generated this result tra nsmitted reference range : <=0.8. The reference r megan was not used to int erpret this result as normal/abnormal . [facility] CenterRecozcwMKIUCDHDXQ3845-60-55 09:45:00 Test Item Value Reference Range Interpretation Comments Segs-Bands # (test code = Segs-Bands #) 13.0 1.5-8.1 H [facility] CenterHzublmnSGIVFQBHQZ0122-28-03 09:45:00 Test Item Value Reference Range Interpretation Comments Plt Morph (test code = Normal (12/11/2012 N Plt Morph) 03:45:00) [facility] CenterOoavvoyGQJHWTKIGD3910-48-57 09:45:00 Test Item Value Reference Range Interpretation Comments Hypochrom (test code = Slight (12/11/2012 N Hypochrom) 03:45:00) [facility] CenterZtaskyvIXQMZAXLBF4464-19-99 09:45:00 Test Item Value Reference Range Interpretation Comments Myelocytes (test code = Myelocytes) 1.0 H [facility] CenterXtmrrsmEMUBLHUSIL7300-14-62 09:45:00 Test Item Value Reference Range Interpretation Comments Atypical Lymphs (test code = Atypical 0.0 N Lymphs) [facility] CenterZdgdgjiSIXJOIWBTQ3795-03-25 09:45:00 Test Item Value Reference Range Interpretation Comments Monocytes (test code = Monocytes) 0.0 2.0-12.0 L [facility] CenterChqojieJCBJJVCFLZ0290-76-43 09:45:00 Test Item Value Reference Range Interpretation Comments Metamyelocytes (test code 1.0 See_Comment N [ Automated message] = Metamyelocytes) The system which generated this result transmitted ref erence range: <=1.0. T he reference range was not used to int erpret this result as normal/abnormal . [facility] CenterViwnfwhVKSVLCFKRP7933-33-44 09:45:00 Test Item Value Reference Range Interpretation Comments RDW (test code = RDW) 16.2 11.5-14.5 H [facility] CenterRzvokopEZBSHADJFG1153-71-08 09:45:00 Test Item Value Reference Range Interpretation Comments Platelet (test code = Platelet) 268 133-450 N [facility] CenterUzoarvyISBKTGBRX4222-41-09 09:45:00 Test Item Value Reference Range Interpretation Comments Alk Phos (test code = Alk Phos) 57 39-136 N [facility] CenterPqbqldiENEDTITPNB5655-34-23 09:45:00 Test Item Value Reference Range Interpretation Comments MPV (test code = MPV) 9.0 7.4-10.4 N [facility] CenterNuuqpjhUHYFZVFPII1780-44-68 09:45:00 Test Item Value Reference Range Interpretation Comments MCV (test code = MCV) 81.2 81.0-99.0 N [facility] CenterIrirwxaTYRFYYXZOQ5999-27-59 09:45:00 Test Item Value Reference Range Interpretation Comments MCH (test code = MCH) 25.7 pg 27.0-31.0 L [facility] CenterCjpwdhoSHKUBOPOYJ0241-03-87 09:45:00 Test Item Value Reference Range Interpretation Comments MCHC (test code = MCHC) 31.6 32.0-36.0 L [facility] CenterXwdskkpCRICWDCXTR9914-95-45 09:45:00 Test Item Value Reference Range Interpretation Comments WBC (test code = WBC) 15.0 3.7-10.4 H [facility] CenterCxxxyujYTXRQENBKY9977-47-08 09:45:00 Test Item Value Reference Range Interpretation Comments Hct (test code = Hct) 31.9 36.0-48.0 L [facility] CenterUsqsalqMPVDSPOESU1711-40-13 09:45:00 Test Item Value Reference Range Interpretation Comments Hgb (test code = Hgb) 10.1 12.0-16.0 L [facility] CenterJvaieooTXFFZGMGGI0120-36-40 09:45:00 Test Item Value Reference Range Interpretation Comments RBC (test code = RBC) 3.93 4.20-5.40 L [facility] CenterXruizteJKDAWJLOI1898-44-02 09:45:00 Test Item Value Reference Range Interpretation Comments ALT (test code = ALT) 35 See_Comment N [Auto mated message] The system which ge nerated this result transmit ashanti reference range : <=65. The reference range was not used to interpr et this result as carmen l/abnormal. [facility] CenterEyhroafADLRJFMQO1419-42-01 09:45:00 Test Item Value Reference Range Interpretation Comments Total Protein (test code = Total 5.9 6.4-8.4 L Protein) [facility] CenterNheteswPQKWWBCKV0672-70-07 09:45:00 Test Item Value Reference Range Interpretation Comments eGFR (test code = eGFR) 121 [facility] CenterMfiothuJSOOLVTTC8345-95-15 09:45:00 Test Item Value Reference Range Interpretation Comments Calcium Lvl (test code = Calcium Lvl) 8.1 8.5-10.5 L [facility] CenterNgdflcqXGWMDRVNC0210-61-53 09:45:00 Test Item Value Reference Range Interpretation Comments Albumin Lvl (test code = Albumin Lvl) 3.3 3.5-5.0 L [facility] CenterEaodbbcFMVYDAMUV8282-15-09 09:45:00 Test Item Value Reference Range Interpretation Comments Chloride Lvl (test code = Chloride Lvl) 104 95-109 N [facility] CenterTjfcrmyVICHQARGG4296-46-23 09:45:00 Test Item Value Reference Range Interpretation Comments CO2 (test code = CO2) 24 24-32 N [facility] CenterEunnklbYJNAAGPJE3751-05-80 09:45:00 Test Item Value Reference Range Interpretation Comments Sodium Lvl (test code = Sodium Lvl) 140 135-145 N [facility] CenterZnqdnbwZTQRRMPRE3361-32-36 09:45:00 Test Item Value Reference Range Interpretation Comments Potassium Lvl (test code = Potassium 4.2 3.5-5.1 N Lvl) [facility] CenterXwmoaddVLRQUHGDX5898-57-62 09:45:00 Test Item Value Reference Range Interpretation Comments BUN (test code = BUN) 8 7-22 N [facility] CenterKqnnqtlNZZCXWUQJ2384-60-46 09:45:00 Test Item Value Reference Range Interpretation Comments Creatinine Lvl (test code = Creatinine 0.6 0.5-1.4 N Lvl) [facility] CenterLasvbncYAEAIEKLT1037-42-53 09:45:00 Test Item Value Reference Range Interpretation Comments Glucose Lvl (test code = Glucose Lvl) 87 70-99 N [facility] CenterRondwyoHFKWDVYZE8156-21-22 09:45:00 Test Item Value Reference Range Interpretation Comments A/G Ratio (test code = A/G Ratio) 1.3 0.7-1.6 N [facility] CenterQyuuvntXPOZFMAHZ7749-75-54 09:45:00 Test Item Value Reference Range Interpretation Comments AST (test code = AST) 31 See_Comment N [Auto mated message] The system which ge nerated this result transmit ashanti reference range : <=37. The reference range was not used to interpr et this result as carmen l/abnormal. [facility] CenterLojwkfgPBJAJGMSD3090-33-91 09:45:00 Test Item Value Reference Range Interpretation Comments Globulin (test code = Globulin) 2.6 2.0-4.0 N [facility] CenterOxnbmumDOXEELXKE0271-40-18 09:45:00 Test Item Value Reference Range Interpretation Comments Bili Total (test code = Bili Total) 0.4 0.2-1.3 N [facility] CenterYqbpwkwMCFYEYIDN6778-06-01 09:45:00 Test Item Value Reference Range Interpretation Comments Alk Phos (test code = Alk Phos) 57 39-136 N [facility] CenterYaestwnANJXIZADB9945-42-87 09:45:00 Test Item Value Reference Range Interpretation Comments ALT (test code = ALT) 35 See_Comment N [Auto mated message] The system which ge nerated this result transmit ashanti reference range : <=65. The reference range was not used to interpr et this result as carmen l/abnormal. [facility] CenterUxzgzybPKQVIMQOC6789-46-14 09:45:00 Test Item Value Reference Range Interpretation Comments Total Protein (test code = Total 5.9 6.4-8.4 L Protein) [facility] CenterLthewmkLTICBWSCJ0385-94-04 09:45:00 Test Item Value Reference Range Interpretation Comments eGFR (test code = eGFR) 121 [facility] CenterAbhwrnrIUVBHYVPZ9402-78-41 09:45:00 Test Item Value Reference Range Interpretation Comments Calcium Lvl (test code = Calcium Lvl) 8.1 8.5-10.5 L [facility] CenterFxbdfjaGOMAGGISR8466-25-53 09:45:00 Test Item Value Reference Range Interpretation Comments Albumin Lvl (test code = Albumin Lvl) 3.3 3.5-5.0 L [facility] CenterPjtvmjuQEFQXCXVF7727-37-45 09:45:00 Test Item Value Reference Range Interpretation Comments Chloride Lvl (test code = Chloride Lvl) 104 95-109 N [facility] CenterZxqivvfVZSWAPAGB2235-86-51 09:45:00 Test Item Value Reference Range Interpretation Comments CO2 (test code = CO2) 24 24-32 N [facility] CenterNhecdcrCSNAOSHQB7655-83-81 09:45:00 Test Item Value Reference Range Interpretation Comments Sodium Lvl (test code = Sodium Lvl) 140 135-145 N [facility] CenterFlafkqoYWWVMWLNZ4421-09-87 09:45:00 Test Item Value Reference Range Interpretation Comments AGAP (test code = AGAP) 16.2 10.0-20.0 N [facility] CenterJhxqyniHUFERIDCU0284-08-24 09:45:00 Test Item Value Reference Range Interpretation Comments Potassium Lvl (test code = Potassium 4.2 3.5-5.1 N Lvl) [facility] CenterBkjsutyCRJEMZWBG0002-01-17 09:45:00 Test Item Value Reference Range Interpretation Comments BUN (test code = BUN) 8 7-22 N [facility] CenterWhxovsoFGWKCLMXR5153-36-99 09:45:00 Test Item Value Reference Range Interpretation Comments Creatinine Lvl (test code = Creatinine 0.6 0.5-1.4 N Lvl) [facility] CenterGbawpnfOVGQPIUDD5604-13-21 09:45:00 Test Item Value Reference Range Interpretation Comments Glucose Lvl (test code = Glucose Lvl) 87 70-99 N [facility] CenterSjtizxsSHWEBZRCC1115-88-51 09:45:00 Test Item Value Reference Range Interpretation Comments A/G Ratio (test code = A/G Ratio) 1.3 0.7-1.6 N [facility] CenterCsntualQQTFTQJQD6230-75-78 09:45:00 Test Item Value Reference Range Interpretation Comments Globulin (test code = Globulin) 2.6 2.0-4.0 N [facility] CenterHdstrsiHYMLYJGBH9987-72-89 09:45:00 Test Item Value Reference Range Interpretation Comments AGAP (test code = AGAP) 16.2 10.0-20.0 N [facility] CenterRgklswmQBAXQPNJQ8633-16-89 09:45:00 Test Item Value Reference Range Interpretation Comments B/C Ratio (test code = B/C Ratio) 13 6-25 N [facility] CenterBufmrosLCHSMUBRXW0774-61-78 09:45:00 Test Item Value Reference Range Interpretation Comments Lymphocytes (test code = Lymphocytes) 11.0 20.0-40.0 L [facility] CenterQkyphxuGKJORANLET6873-11-69 09:45:00 Test Item Value Reference Range Interpretation Comments Segs (test code = Segs) 86.0 45.0-75.0 H [facility] CenterFzwaptaJAUQGJWHN1895-04-31 09:45:00 Test Item Value Reference Range Interpretation Comments B/C Ratio (test code = B/C Ratio) 13 6-25 N [facility] CenterCrjjpatTYNZAJFVPB7240-79-64 09:45:00 Test Item Value Reference Range Interpretation Comments Bands (test code = 1.0 See_Comment N [Automat ed message] The Bands) system which ge nerated this result transmit ashanti reference range : <=11.0. The reference r megan was not used to interpr et this result as carmen l/abnormal. [facility] CenterPtetpocLHVQVHMCRC9106-03-33 09:45:00 Test Item Value Reference Range Interpretation Comments Lymphocytes # (test code = Lymphocytes 1.6 1.0-5.5 N #) [facility] CenterNexalpbRJXIZPZMEJ3304-86-87 09:45:00 Test Item Value Reference Range Interpretation Comments Monocytes # (test code 0.0 See_Comment N [Aut omated message] The = Monocytes #) system which generated this result tra nsmitted reference range : <=0.8. The reference r megan was not used to int erpret this result as normal/abnormal . [facility] CenterLlpvuyiWZDDQENJWX4742-18-62 09:45:00 Test Item Value Reference Range Interpretation Comments Segs-Bands # (test code = Segs-Bands #) 13.0 1.5-8.1 H [facility] CenterEgfqwkgKYXFSBUFPX3410-79-46 09:45:00 Test Item Value Reference Range Interpretation Comments Plt Morph (test code = Normal (12/11/2012 N Plt Morph) 03:45:00) [facility] CenterBhrhoevMUAKJRNGBN5071-38-05 09:45:00 Test Item Value Reference Range Interpretation Comments Hypochrom (test code = Slight (12/11/2012 N Hypochrom) 03:45:00) [facility] CenterNsapemyNMOGPVEBMJ5333-29-78 09:45:00 Test Item Value Reference Range Interpretation Comments Myelocytes (test code = Myelocytes) 1.0 H [facility] CenterEfavmqyZCNIUUJZOX8867-59-15 09:45:00 Test Item Value Reference Range Interpretation Comments Atypical Lymphs (test code = Atypical 0.0 N Lymphs) [facility] CenterWnbznpjHIMYXPLLND5075-12-11 09:45:00 Test Item Value Reference Range Interpretation Comments Monocytes (test code = Monocytes) 0.0 2.0-12.0 L [facility] CenterQpgtddtMALYXRIIRB3566-25-17 09:45:00 Test Item Value Reference Range Interpretation Comments Metamyelocytes (test code 1.0 See_Comment N [ Automated message] = Metamyelocytes) The system which generated this result transmitted ref erence range: <=1.0. T he reference range was not used to int erpret this result as normal/abnormal . [facility] CenterIcrvuakBMWWXREUIN1676-40-78 09:45:00 Test Item Value Reference Range Interpretation Comments Lymphocytes (test code = Lymphocytes) 11.0 20.0-40.0 L [facility] CenterQfsijwfVJIMHXBSXN2431-59-78 09:45:00 Test Item Value Reference Range Interpretation Comments RDW (test code = RDW) 16.2 11.5-14.5 H [facility] CenterBpqsnerBQQCUDKGTM7017-78-89 09:45:00 Test Item Value Reference Range Interpretation Comments Platelet (test code = Platelet) 268 133-450 N [facility] CenterNxhsgaiJDOERWLGPX7864-79-33 09:45:00 Test Item Value Reference Range Interpretation Comments MPV (test code = MPV) 9.0 7.4-10.4 N [facility] CenterQisoembTWZYBFDBIN2478-04-56 09:45:00 Test Item Value Reference Range Interpretation Comments MCV (test code = MCV) 81.2 81.0-99.0 N [facility] CenterWcvfvzgXLHJQHMJQK4365-22-32 09:45:00 Test Item Value Reference Range Interpretation Comments MCH (test code = MCH) 25.7 pg 27.0-31.0 L [facility] CenterLeuczwfNITUPABAUN5397-02-20 09:45:00 Test Item Value Reference Range Interpretation Comments MCHC (test code = MCHC) 31.6 32.0-36.0 L [facility] CenterScgxffhWQYWTDQUCH7265-10-45 09:45:00 Test Item Value Reference Range Interpretation Comments WBC (test code = WBC) 15.0 3.7-10.4 H [facility] CenterFxhlfmjOKKARYCNIV5542-35-97 09:45:00 Test Item Value Reference Range Interpretation Comments Hct (test code = Hct) 31.9 36.0-48.0 L [facility] CenterHuidkovGUYWBNHWFW2011-74-26 09:45:00 Test Item Value Reference Range Interpretation Comments Hgb (test code = Hgb) 10.1 12.0-16.0 L [facility] CenterWonakdzVXRDKIMKMN1992-91-74 09:45:00 Test Item Value Reference Range Interpretation Comments RBC (test code = RBC) 3.93 4.20-5.40 L [facility] CenterUncuofgCDJUQILJZB8818-16-58 09:45:00 Test Item Value Reference Range Interpretation Comments Segs (test code = Segs) 86.0 45.0-75.0 H [facility] CenterBxfkwbyMFWUECVTKO5159-07-93 09:45:00 Test Item Value Reference Range Interpretation Comments Bands (test code = 1.0 See_Comment N [Automat ed message] The Bands) system which ge nerated this result transmit ashanti reference range : <=11.0. The reference r megan was not used to interpr et this result as carmen l/abnormal. [facility] CenterRtpwtoeZKWUSHPODZ2152-31-24 09:45:00 Test Item Value Reference Range Interpretation Comments Lymphocytes # (test code = Lymphocytes 1.6 1.0-5.5 N #) [facility] CenterNxlcbfjBOOEWPDWPQ4524-01-26 09:45:00 Test Item Value Reference Range Interpretation Comments Monocytes # (test code 0.0 See_Comment N [Aut omated message] The = Monocytes #) system which generated this result tra nsmitted reference range : <=0.8. The reference r megan was not used to int erpret this result as normal/abnormal . [facility] CenterRqdqsfsKGBANMGSQG5453-58-80 09:45:00 Test Item Value Reference Range Interpretation Comments Segs-Bands # (test code = Segs-Bands #) 13.0 1.5-8.1 H [facility] CenterUnftjhfOOTWBGSIOD4217-95-63 09:45:00 Test Item Value Reference Range Interpretation Comments Plt Morph (test code = Normal (12/11/2012 N Plt Morph) 03:45:00) [facility] CenterBqdwmnrAONBSOKREC2853-67-74 09:45:00 Test Item Value Reference Range Interpretation Comments Hypochrom (test code = Slight (12/11/2012 N Hypochrom) 03:45:00) [facility] CenterKmrzyuoEVFVWCXXSN3834-88-86 09:45:00 Test Item Value Reference Range Interpretation Comments Myelocytes (test code = Myelocytes) 1.0 H [facility] CenterOkvykqbAFYCFOFPCB2029-96-60 09:45:00 Test Item Value Reference Range Interpretation Comments Atypical Lymphs (test code = Atypical 0.0 N Lymphs) [facility] CenterSkeulkfBFBVBBRCCD7578-48-39 09:45:00 Test Item Value Reference Range Interpretation Comments Monocytes (test code = Monocytes) 0.0 2.0-12.0 L [facility] CenterWhwtmbdUMFHHSFHNL3070-73-57 09:45:00 Test Item Value Reference Range Interpretation Comments Metamyelocytes (test code 1.0 See_Comment N [ Automated message] = Metamyelocytes) The system which generated this result transmitted ref erence range: <=1.0. T he reference range was not used to int erpret this result as normal/abnormal . [facility] CenterWlrpyjcXGGUTTJIBV8274-81-32 09:45:00 Test Item Value Reference Range Interpretation Comments RDW (test code = RDW) 16.2 11.5-14.5 H [facility] CenterRkboebwYXYDVRXHNN5815-89-87 09:45:00 Test Item Value Reference Range Interpretation Comments Platelet (test code = Platelet) 268 133-450 N [facility] CenterDagnhfaRMGEHRZPLZ8764-96-62 09:45:00 Test Item Value Reference Range Interpretation Comments MPV (test code = MPV) 9.0 7.4-10.4 N [facility] CenterHjwtfrtKHDPXKPTX7393-37-46 09:45:00 Test Item Value Reference Range Interpretation Comments AST (test code = AST) 31 See_Comment N [Auto mated message] The system which ge nerated this result transmit ashanti reference range : <=37. The reference range was not used to interpr et this result as carmen l/abnormal. [facility] CenterFcmumkdLUQPPZJLD6594-89-66 09:45:00 Test Item Value Reference Range Interpretation Comments Bili Total (test code = Bili Total) 0.4 0.2-1.3 N [facility] CenterExkalbzHFULWHAZC8351-66-67 09:45:00 Test Item Value Reference Range Interpretation Comments Alk Phos (test code = Alk Phos) 57 39-136 N [facility] CenterPzktyhgJJJYNYTZT7036-95-77 09:45:00 Test Item Value Reference Range Interpretation Comments ALT (test code = ALT) 35 See_Comment N [Auto mated message] The system which ge nerated this result transmit ashanti reference range : <=65. The reference range was not used to interpr et this result as carmen l/abnormal. [facility] CenterJyqmfdcASEKTEJXO4267-14-94 09:45:00 Test Item Value Reference Range Interpretation Comments Total Protein (test code = Total 5.9 6.4-8.4 L Protein) [facility] CenterEomwkbcOAUNGGIWW1503-03-07 09:45:00 Test Item Value Reference Range Interpretation Comments eGFR (test code = eGFR) 121 [facility] CenterNyzpboxVJXZEBHKV7075-19-67 09:45:00 Test Item Value Reference Range Interpretation Comments Calcium Lvl (test code = Calcium Lvl) 8.1 8.5-10.5 L [facility] CenterWnvthiqCWIUNLZIM3826-66-38 09:45:00 Test Item Value Reference Range Interpretation Comments Albumin Lvl (test code = Albumin Lvl) 3.3 3.5-5.0 L [facility] CenterWpnsxqgHPIPBLQUM3307-43-56 09:45:00 Test Item Value Reference Range Interpretation Comments Chloride Lvl (test code = Chloride Lvl) 104 95-109 N [facility] CenterKuvrliwPBHUKBHLXS2437-70-91 09:45:00 Test Item Value Reference Range Interpretation Comments MCV (test code = MCV) 81.2 81.0-99.0 N [facility] CenterAsjvlqxHPLDTKCAL6364-97-20 09:45:00 Test Item Value Reference Range Interpretation Comments CO2 (test code = CO2) 24 24-32 N [facility] CenterBktuqfmSHUNGXSVL0433-08-61 09:45:00 Test Item Value Reference Range Interpretation Comments Sodium Lvl (test code = Sodium Lvl) 140 135-145 N [facility] CenterExyjksgUBRUIXCTO6794-54-90 09:45:00 Test Item Value Reference Range Interpretation Comments Potassium Lvl (test code = Potassium 4.2 3.5-5.1 N Lvl) [facility] CenterCcumkfpTKXEIGIUR8281-59-76 09:45:00 Test Item Value Reference Range Interpretation Comments BUN (test code = BUN) 8 7-22 N [facility] CenterSjnmdpyPSRPVLQIG6755-50-52 09:45:00 Test Item Value Reference Range Interpretation Comments Creatinine Lvl (test code = Creatinine 0.6 0.5-1.4 N Lvl) [facility] CenterRphmszoLGATPMHWT0855-87-44 09:45:00 Test Item Value Reference Range Interpretation Comments Glucose Lvl (test code = Glucose Lvl) 87 70-99 N [facility] CenterPgmxudzNPQVHNMYD3599-58-80 09:45:00 Test Item Value Reference Range Interpretation Comments A/G Ratio (test code = A/G Ratio) 1.3 0.7-1.6 N [facility] CenterRaiomxoUJDVBYSBH2779-73-60 09:45:00 Test Item Value Reference Range Interpretation Comments Globulin (test code = Globulin) 2.6 2.0-4.0 N [facility] CenterShazgipIVJTIZUWK5786-62-83 09:45:00 Test Item Value Reference Range Interpretation Comments AGAP (test code = AGAP) 16.2 10.0-20.0 N [place] 269063-03-08 09:45:00 Test Item Value Reference Range Interpretation Comments B/C Ratio (test code = B/C Ratio) 13 6-25 N [facility] CenterJhadzlvSVDRFJXCUQ1825-77-30 09:45:00 Test Item Value Reference Range Interpretation Comments MCH (test code = MCH) 25.7 pg 27.0-31.0 L [facility] CenterQfltvwdIZTGGSMIVQ1760-06-81 09:45:00 Test Item Value Reference Range Interpretation Comments Lymphocytes (test code = Lymphocytes) 11.0 20.0-40.0 L [facility] CenterIoqxperQHIDVKMLPR1876-13-62 09:45:00 Test Item Value Reference Range Interpretation Comments Segs (test code = Segs) 86.0 45.0-75.0 H [facility] CenterVytflmhDALLWRDHZY3112-67-96 09:45:00 Test Item Value Reference Range Interpretation Comments Bands (test code = 1.0 See_Comment N [Automat ed message] The Bands) system which ge nerated this result transmit ashanti reference range : <=11.0. The reference r megan was not used to interpr et this result as carmen l/abnormal. [facility] CenterKjqioxoTCQUBAHWDT0238-04-60 09:45:00 Test Item Value Reference Range Interpretation Comments Lymphocytes # (test code = Lymphocytes 1.6 1.0-5.5 N #) [facility] CenterQdohzvtLNOZUPGDDH7822-47-09 09:45:00 Test Item Value Reference Range Interpretation Comments Monocytes # (test code 0.0 See_Comment N [Aut omated message] The = Monocytes #) system which generated this result tra nsmitted reference range : <=0.8. The reference r megan was not used to int erpret this result as normal/abnormal . [facility] CenterGsfkccrCGBGJKRKDV3884-20-93 09:45:00 Test Item Value Reference Range Interpretation Comments Segs-Bands # (test code = Segs-Bands #) 13.0 1.5-8.1 H [facility] CenterKisawpkDAJRICCPMK5327-25-95 09:45:00 Test Item Value Reference Range Interpretation Comments Plt Morph (test code = Normal (12/11/2012 N Plt Morph) 03:45:00) [facility] CenterBolmotyNIBRTYSVSV3900-75-25 09:45:00 Test Item Value Reference Range Interpretation Comments Hypochrom (test code = Slight (12/11/2012 N Hypochrom) 03:45:00) [facility] CenterGrihcmzPOPFSIEBTG9871-86-70 09:45:00 Test Item Value Reference Range Interpretation Comments Myelocytes (test code = Myelocytes) 1.0 H [facility] CenterVshgiwyILWOMVGZQK2969-98-58 09:45:00 Test Item Value Reference Range Interpretation Comments Atypical Lymphs (test code = Atypical 0.0 N Lymphs) [facility] CenterLzcrqxsXBPFIMRGDZ3672-83-96 09:45:00 Test Item Value Reference Range Interpretation Comments MCHC (test code = MCHC) 31.6 32.0-36.0 L [facility] CenterEgoeibtHTCLFEOLUM8409-83-22 09:45:00 Test Item Value Reference Range Interpretation Comments Monocytes (test code = Monocytes) 0.0 2.0-12.0 L [facility] CenterSzmcvngFRBPGRUSQA7734-16-58 09:45:00 Test Item Value Reference Range Interpretation Comments Metamyelocytes (test code 1.0 See_Comment N [ Automated message] = Metamyelocytes) The system which generated this result transmitted ref erence range: <=1.0. T he reference range was not used to int erpret this result as normal/abnormal . [facility] CenterOzphuigIPXIEMDYKY0487-11-05 09:45:00 Test Item Value Reference Range Interpretation Comments RDW (test code = RDW) 16.2 11.5-14.5 H [facility] CenterJdrvnoiUZNSKGECDA6137-49-53 09:45:00 Test Item Value Reference Range Interpretation Comments Platelet (test code = Platelet) 268 133-450 N [facility] CenterFjqkfsaCOLPNDOWCH0047-92-73 09:45:00 Test Item Value Reference Range Interpretation Comments MPV (test code = MPV) 9.0 7.4-10.4 N [facility] CenterHwwucjhAXWKNJEWVT4297-87-69 09:45:00 Test Item Value Reference Range Interpretation Comments MCV (test code = MCV) 81.2 81.0-99.0 N [facility] CenterWdmfadxVZSHIQWNJE6772-70-64 09:45:00 Test Item Value Reference Range Interpretation Comments MCH (test code = MCH) 25.7 pg 27.0-31.0 L [facility] CenterGsgssvwYVOGUKOOII6392-20-39 09:45:00 Test Item Value Reference Range Interpretation Comments MCHC (test code = MCHC) 31.6 32.0-36.0 L [facility] CenterGbnxtioEQHYFPLRYV7953-09-61 09:45:00 Test Item Value Reference Range Interpretation Comments WBC (test code = WBC) 15.0 3.7-10.4 H [facility] CenterOwdrpdeJTLQNMKSBM6776-28-95 09:45:00 Test Item Value Reference Range Interpretation Comments Hct (test code = Hct) 31.9 36.0-48.0 L [facility] CenterHvhnfqeMOFNQSPAUH6010-95-60 09:45:00 Test Item Value Reference Range Interpretation Comments WBC (test code = WBC) 15.0 3.7-10.4 H [facility] CenterKkvwxmcHEWPLPYLKS8089-73-60 09:45:00 Test Item Value Reference Range Interpretation Comments Hgb (test code = Hgb) 10.1 12.0-16.0 L [facility] CenterMjkgacyQYMQKYNXRJ2330-44-13 09:45:00 Test Item Value Reference Range Interpretation Comments RBC (test code = RBC) 3.93 4.20-5.40 L [facility] CenterQsnqdskMVGJSNQBGJ8558-32-82 09:45:00 Test Item Value Reference Range Interpretation Comments Hct (test code = Hct) 31.9 36.0-48.0 L [facility] CenterRtzgzpvFKTQZIDGVE5893-39-92 09:45:00 Test Item Value Reference Range Interpretation Comments Hgb (test code = Hgb) 10.1 12.0-16.0 L [facility] CenterTmtccneRPUJPJLTWC6354-79-47 09:45:00 Test Item Value Reference Range Interpretation Comments RBC (test code = RBC) 3.93 4.20-5.40 L [facility] CenterEybtggyZUMVAUSBN0334-89-26 09:45:00 Test Item Value Reference Range Interpretation Comments AST (test code = AST) 31 See_Comment N [Auto mated message] The system which ge nerated this result transmit ashanti reference range : <=37. The reference range was not used to interpr et this result as carmen l/abnormal. [facility] CenterZgvebnrZDXFPOOVH8792-42-10 09:45:00 Test Item Value Reference Range Interpretation Comments Bili Total (test code = Bili Total) 0.4 0.2-1.3 N [facility] CenterWlzqrukWFFPEJGNL8850-28-93 09:45:00 Test Item Value Reference Range Interpretation Comments Alk Phos (test code = Alk Phos) 57 39-136 N [facility] CenterCsznricGHIOENHNJ1466-36-93 09:45:00 Test Item Value Reference Range Interpretation Comments ALT (test code = ALT) 35 See_Comment N [Auto mated message] The system which ge nerated this result transmit ashanti reference range : <=65. The reference range was not used to interpr et this result as carmen l/abnormal. [facility] CenterVqoosskTZNMFUQIO4034-94-14 09:45:00 Test Item Value Reference Range Interpretation Comments Total Protein (test code = Total 5.9 6.4-8.4 L Protein) [facility] CenterCvivbxeVNHZPKRUO4762-68-81 09:45:00 Test Item Value Reference Range Interpretation Comments eGFR (test code = eGFR) 121 [facility] CenterGikvumlASRWOJZBK6772-02-73 09:45:00 Test Item Value Reference Range Interpretation Comments Calcium Lvl (test code = Calcium Lvl) 8.1 8.5-10.5 L [facility] CenterUewwgnzEMIHVMGBS7319-19-85 09:45:00 Test Item Value Reference Range Interpretation Comments Albumin Lvl (test code = Albumin Lvl) 3.3 3.5-5.0 L [facility] CenterVwwhfsgUNJSBAEWQ6671-76-50 09:45:00 Test Item Value Reference Range Interpretation Comments Chloride Lvl (test code = Chloride Lvl) 104 95-109 N [facility] CenterRyjpdasLSHDJIYIF9706-08-18 09:45:00 Test Item Value Reference Range Interpretation Comments CO2 (test code = CO2) 24 24-32 N [facility] CenterYcipsobMIRGLMGQO7796-86-57 09:45:00 Test Item Value Reference Range Interpretation Comments Sodium Lvl (test code = Sodium Lvl) 140 135-145 N [facility] CenterXduraezSOIHOZFDP5673-81-25 09:45:00 Test Item Value Reference Range Interpretation Comments Potassium Lvl (test code = Potassium 4.2 3.5-5.1 N Lvl) [facility] CenterDopsznoMQDDFIZYL6216-31-95 09:45:00 Test Item Value Reference Range Interpretation Comments BUN (test code = BUN) 8 7-22 N [facility] CenterQaubducTONOQZYHH8783-49-80 09:45:00 Test Item Value Reference Range Interpretation Comments Creatinine Lvl (test code = Creatinine 0.6 0.5-1.4 N Lvl) [facility] CenterWkcegzmYVXJTVWTH1133-53-64 09:45:00 Test Item Value Reference Range Interpretation Comments Glucose Lvl (test code = Glucose Lvl) 87 70-99 N [facility] CenterDereortPLKOKLUWE0646-40-41 09:45:00 Test Item Value Reference Range Interpretation Comments A/G Ratio (test code = A/G Ratio) 1.3 0.7-1.6 N [facility] CenterVrpvsmxYJESFQIQC2628-62-95 09:45:00 Test Item Value Reference Range Interpretation Comments Globulin (test code = Globulin) 2.6 2.0-4.0 N [facility] CenterVpbwxjjFRNJHAIEB9795-53-73 09:45:00 Test Item Value Reference Range Interpretation Comments AGAP (test code = AGAP) 16.2 10.0-20.0 N [facility] CenterCutimdeSYIODRHNW7615-45-12 09:45:00 Test Item Value Reference Range Interpretation Comments B/C Ratio (test code = B/C Ratio) 13 6-25 N [facility] CenterLjotnshBYYPMJCEPH4335-96-75 09:45:00 Test Item Value Reference Range Interpretation Comments Lymphocytes (test code = Lymphocytes) 11.0 20.0-40.0 L [facility] CenterIjlmcszFYJYGXENZL2335-65-55 09:45:00 Test Item Value Reference Range Interpretation Comments Segs (test code = Segs) 86.0 45.0-75.0 H [facility] CenterVnwxvnkNBFIOTVYRF6835-82-22 09:45:00 Test Item Value Reference Range Interpretation Comments Bands (test code = 1.0 See_Comment N [Automat ed message] The Bands) system which ge nerated this result transmit ashanti reference range : <=11.0. The reference r megan was not used to interpr et this result as carmen l/abnormal. [facility] CenterEenaclrFTCQFHLPNU9238-68-95 09:45:00 Test Item Value Reference Range Interpretation Comments Lymphocytes # (test code = Lymphocytes 1.6 1.0-5.5 N #) [facility] CenterRfyepcrXHEBARBMAR3601-88-05 09:45:00 Test Item Value Reference Range Interpretation Comments Monocytes # (test code 0.0 See_Comment N [Aut omated message] The = Monocytes #) system which generated this result tra nsmitted reference range : <=0.8. The reference r megan was not used to int erpret this result as normal/abnormal . [facility] CenterFzbcmhmQSBIRUPKIS4002-64-53 09:45:00 Test Item Value Reference Range Interpretation Comments Segs-Bands # (test code = Segs-Bands #) 13.0 1.5-8.1 H [facility] CenterRtpaffqAIFQYXRRXH0663-95-73 09:45:00 Test Item Value Reference Range Interpretation Comments Plt Morph (test code = Normal (12/11/2012 N Plt Morph) 03:45:00) [facility] CenterFectqjzDNPQANILVV1588-66-47 09:45:00 Test Item Value Reference Range Interpretation Comments Hypochrom (test code = Slight (12/11/2012 N Hypochrom) 03:45:00) [facility] CenterMijfyamBDAWEMQXCI7725-72-76 09:45:00 Test Item Value Reference Range Interpretation Comments Myelocytes (test code = Myelocytes) 1.0 H [facility] CenterJurshhfSRMEFZMCNM9006-60-19 09:45:00 Test Item Value Reference Range Interpretation Comments Atypical Lymphs (test code = Atypical 0.0 N Lymphs) [facility] CenterNdtjmuhJUTRJWWUTQ5722-24-67 09:45:00 Test Item Value Reference Range Interpretation Comments Monocytes (test code = Monocytes) 0.0 2.0-12.0 L [facility] CenterSukmqdtGKJPNXHNIQ2438-05-10 09:45:00 Test Item Value Reference Range Interpretation Comments Metamyelocytes (test code 1.0 See_Comment N [ Automated message] = Metamyelocytes) The system which generated this result transmitted ref erence range: <=1.0. T he reference range was not used to int erpret this result as normal/abnormal . [facility] CenterYeabbduWHBWSLTBDJ1750-24-50 09:45:00 Test Item Value Reference Range Interpretation Comments RDW (test code = RDW) 16.2 11.5-14.5 H [facility] CenterTytoblbZIMUNJKVVD3864-86-04 09:45:00 Test Item Value Reference Range Interpretation Comments Platelet (test code = Platelet) 268 133-450 N [facility] CenterXcnpmyrEIKLXPQWOR6768-40-66 09:45:00 Test Item Value Reference Range Interpretation Comments MPV (test code = MPV) 9.0 7.4-10.4 N [facility] CenterEfrhngqDSTGMVWPWI8015-30-81 09:45:00 Test Item Value Reference Range Interpretation Comments MCV (test code = MCV) 81.2 81.0-99.0 N [facility] CenterBumkqbsUYZSRNAOJS6900-29-64 09:45:00 Test Item Value Reference Range Interpretation Comments MCH (test code = MCH) 25.7 pg 27.0-31.0 L [facility] CenterCaeumipPARDIRZYPF7079-68-63 09:45:00 Test Item Value Reference Range Interpretation Comments MCHC (test code = MCHC) 31.6 32.0-36.0 L [facility] CenterRxlpurnUXXOXKHUKE6602-72-91 09:45:00 Test Item Value Reference Range Interpretation Comments WBC (test code = WBC) 15.0 3.7-10.4 H [facility] CenterUegzwenHHHSPYARNV3774-31-70 09:45:00 Test Item Value Reference Range Interpretation Comments Hct (test code = Hct) 31.9 36.0-48.0 L [facility] CenterEqplfbuCXOAZNZMOG1312-73-83 09:45:00 Test Item Value Reference Range Interpretation Comments Hgb (test code = Hgb) 10.1 12.0-16.0 L [facility] CenterSabdyteMIAGXNPZOC7666-76-54 09:45:00 Test Item Value Reference Range Interpretation Comments RBC (test code = RBC) 3.93 4.20-5.40 L [facility] CenterWwxroeuKZIECPXXF5646-84-68 09:45:00 Test Item Value Reference Range Interpretation Comments AST (test code = AST) 31 See_Comment N [Auto mated message] The system which ge nerated this result transmit ashanti reference range : <=37. The reference range was not used to interpr et this result as carmen l/abnormal. [facility] CenterZeiwvcjFVCCLRGTG4199-91-02 09:45:00 Test Item Value Reference Range Interpretation Comments Bili Total (test code = Bili Total) 0.4 0.2-1.3 N [facility] CenterFkejscfJJROHPLEP8086-23-04 09:45:00 Test Item Value Reference Range Interpretation Comments Alk Phos (test code = Alk Phos) 57 39-136 N [facility] CenterTjrhvtsXCLYGDXWV9588-77-97 09:45:00 Test Item Value Reference Range Interpretation Comments ALT (test code = ALT) 35 See_Comment N [Auto mated message] The system which ge nerated this result transmit ashanti reference range : <=65. The reference range was not used to interpr et this result as carmen l/abnormal. [facility] CenterRoyibweNBXGICZSE3706-55-77 09:45:00 Test Item Value Reference Range Interpretation Comments Total Protein (test code = Total 5.9 6.4-8.4 L Protein) [facility] CenterQspodbvNPBSFXYTJ6342-07-48 09:45:00 Test Item Value Reference Range Interpretation Comments eGFR (test code = eGFR) 121 [facility] CenterBofarpaOMRUWADUS7552-94-10 09:45:00 Test Item Value Reference Range Interpretation Comments Calcium Lvl (test code = Calcium Lvl) 8.1 8.5-10.5 L [facility] CenterXjedafmRGYNLFKRH7794-20-85 09:45:00 Test Item Value Reference Range Interpretation Comments Albumin Lvl (test code = Albumin Lvl) 3.3 3.5-5.0 L [facility] CenterUogcjgkONBNCZQDD3019-40-01 09:45:00 Test Item Value Reference Range Interpretation Comments Chloride Lvl (test code = Chloride Lvl) 104 95-109 N [facility] CenterNjczgrvSSCRQXONU9898-78-26 09:45:00 Test Item Value Reference Range Interpretation Comments CO2 (test code = CO2) 24 24-32 N [facility] CenterHsbiatyNILZUJISE2953-40-66 09:45:00 Test Item Value Reference Range Interpretation Comments Sodium Lvl (test code = Sodium Lvl) 140 135-145 N [facility] CenterDsricdnGAOJVCOSD6454-55-70 09:45:00 Test Item Value Reference Range Interpretation Comments Potassium Lvl (test code = Potassium 4.2 3.5-5.1 N Lvl) [facility] CenterAzzecamAJRWSIMHI6328-26-51 09:45:00 Test Item Value Reference Range Interpretation Comments BUN (test code = BUN) 8 7-22 N [facility] CenterAhutpuhJFKMUFOJB3695-70-75 09:45:00 Test Item Value Reference Range Interpretation Comments Creatinine Lvl (test code = Creatinine 0.6 0.5-1.4 N Lvl) [facility] CenterAdswkovEXOLYLXSY2478-02-70 09:45:00 Test Item Value Reference Range Interpretation Comments Glucose Lvl (test code = Glucose Lvl) 87 70-99 N [facility] CenterStpevqgRVXEOMMWM6989-63-50 09:45:00 Test Item Value Reference Range Interpretation Comments A/G Ratio (test code = A/G Ratio) 1.3 0.7-1.6 N [facility] CenterLyaerezUENXUGCKX5308-65-15 09:45:00 Test Item Value Reference Range Interpretation Comments Globulin (test code = Globulin) 2.6 2.0-4.0 N [facility] CenterKkgcaqrOOXVAONEH4860-13-88 09:45:00 Test Item Value Reference Range Interpretation Comments AGAP (test code = AGAP) 16.2 10.0-20.0 N [facility] CenterZktelagALKLOXQIQ1714-40-70 09:45:00 Test Item Value Reference Range Interpretation Comments B/C Ratio (test code = B/C Ratio) 13 6-25 N [facility] CenterVlvnrjpTYCPZVWGHW7270-38-78 09:45:00 Test Item Value Reference Range Interpretation Comments Lymphocytes (test code = Lymphocytes) 11.0 20.0-40.0 L [facility] CenterPghdlavWTEGQBYIQN4140-24-95 09:45:00 Test Item Value Reference Range Interpretation Comments Segs (test code = Segs) 86.0 45.0-75.0 H [facility] CenterCioeaqzGAHWESIAGS4224-42-70 09:45:00 Test Item Value Reference Range Interpretation Comments Bands (test code = 1.0 See_Comment N [Automat ed message] The Bands) system which ge nerated this result transmit ashanti reference range : <=11.0. The reference r megan was not used to interpr et this result as carmen l/abnormal. [facility] CenterMoqkifjGBRVEKYGQC1113-15-36 09:45:00 Test Item Value Reference Range Interpretation Comments Lymphocytes # (test code = Lymphocytes 1.6 1.0-5.5 N #) [facility] CenterOngmoefHSFGLYSXFU0519-53-80 09:45:00 Test Item Value Reference Range Interpretation Comments Monocytes # (test code 0.0 See_Comment N [Aut omated message] The = Monocytes #) system which generated this result tra nsmitted reference range : <=0.8. The reference r megan was not used to int erpret this result as normal/abnormal . [facility] CenterClmbcssEYQGEOYQPR1414-72-01 09:45:00 Test Item Value Reference Range Interpretation Comments Segs-Bands # (test code = Segs-Bands #) 13.0 1.5-8.1 H [facility] CenterVgyecwdZIXMGZIJSZ0350-88-32 09:45:00 Test Item Value Reference Range Interpretation Comments Plt Morph (test code = Normal (12/11/2012 N Plt Morph) 03:45:00) [facility] CenterVjryeruDFUEAJTKZM5069-62-62 09:45:00 Test Item Value Reference Range Interpretation Comments Hypochrom (test code = Slight (12/11/2012 N Hypochrom) 03:45:00) [facility] CenterUjmknasEMLIFWCGOK3093-59-30 09:45:00 Test Item Value Reference Range Interpretation Comments Myelocytes (test code = Myelocytes) 1.0 H [facility] CenterBbdmwgyVZHIDZYKSF5271-30-06 09:45:00 Test Item Value Reference Range Interpretation Comments Atypical Lymphs (test code = Atypical 0.0 N Lymphs) [facility] CenterNsfcxdrHGAKJUENUB4802-68-39 09:45:00 Test Item Value Reference Range Interpretation Comments Monocytes (test code = Monocytes) 0.0 2.0-12.0 L [facility] CenterBotjuwtFSWQIVLBKQ7767-86-92 09:45:00 Test Item Value Reference Range Interpretation Comments Metamyelocytes (test code 1.0 See_Comment N [ Automated message] = Metamyelocytes) The system which generated this result transmitted ref erence range: <=1.0. T he reference range was not used to int erpret this result as normal/abnormal . [facility] CenterEhszusgMFLIUYXASA6852-76-38 09:45:00 Test Item Value Reference Range Interpretation Comments RDW (test code = RDW) 16.2 11.5-14.5 H [facility] CenterUdtgwsrBZLJBNRWAI5964-36-77 09:45:00 Test Item Value Reference Range Interpretation Comments Platelet (test code = Platelet) 268 133-450 N [facility] CenterWsenzjpSZQJXVNHVB6412-03-72 09:45:00 Test Item Value Reference Range Interpretation Comments MPV (test code = MPV) 9.0 7.4-10.4 N [facility] CenterWvqnvnpAALXJPYSKP1183-15-82 09:45:00 Test Item Value Reference Range Interpretation Comments MCV (test code = MCV) 81.2 81.0-99.0 N [facility] CenterJsupemdOWKDOHGNHD0565-99-30 09:45:00 Test Item Value Reference Range Interpretation Comments MCH (test code = MCH) 25.7 pg 27.0-31.0 L [facility] CenterDjlsghfVXZOISRDPX6687-45-08 09:45:00 Test Item Value Reference Range Interpretation Comments MCHC (test code = MCHC) 31.6 32.0-36.0 L [facility] CenterIblvhviDEOVNULBKO9376-45-94 09:45:00 Test Item Value Reference Range Interpretation Comments WBC (test code = WBC) 15.0 3.7-10.4 H [facility] CenterVvbcyxmEMQNBADIEU0479-69-02 09:45:00 Test Item Value Reference Range Interpretation Comments Hct (test code = Hct) 31.9 36.0-48.0 L [facility] CenterMiixobjKWXRZPBRMV3534-89-42 09:45:00 Test Item Value Reference Range Interpretation Comments Hgb (test code = Hgb) 10.1 12.0-16.0 L [facility] CenterMdociikQHLBVQNMYZ9554-80-15 09:45:00 Test Item Value Reference Range Interpretation Comments RBC (test code = RBC) 3.93 4.20-5.40 L [facility] CenterMicbsxvOLOEMPPTK6140-34-86 09:45:00 Test Item Value Reference Range Interpretation Comments AST (test code = AST) 31 See_Comment N [Auto mated message] The system which ge nerated this result transmit ashanti reference range : <=37. The reference range was not used to interpr et this result as carmen l/abnormal. [facility] CenterBtamiyyLEOGMHQXM6676-73-68 09:45:00 Test Item Value Reference Range Interpretation Comments Bili Total (test code = Bili Total) 0.4 0.2-1.3 N [facility] CenterWotjoawPRKREFALT9937-69-46 09:45:00 Test Item Value Reference Range Interpretation Comments Alk Phos (test code = Alk Phos) 57 39-136 N [facility] CenterJugfjhpWIRFXISOV5938-00-66 09:45:00 Test Item Value Reference Range Interpretation Comments ALT (test code = ALT) 35 See_Comment N [Auto mated message] The system which ge nerated this result transmit ashanti reference range : <=65. The reference range was not used to interpr et this result as carmen l/abnormal. [facility] CenterGpjxlxzZXGGZRQNS0885-42-11 09:45:00 Test Item Value Reference Range Interpretation Comments Total Protein (test code = Total 5.9 6.4-8.4 L Protein) [facility] CenterDjdpgwcEEJSTEIJY1259-46-35 09:45:00 Test Item Value Reference Range Interpretation Comments eGFR (test code = eGFR) 121 [facility] CenterVkfwbxiDYDPDWINJ5120-03-12 09:45:00 Test Item Value Reference Range Interpretation Comments Calcium Lvl (test code = Calcium Lvl) 8.1 8.5-10.5 L [facility] CenterBawdgdbAZHETONUR0334-04-84 09:45:00 Test Item Value Reference Range Interpretation Comments Albumin Lvl (test code = Albumin Lvl) 3.3 3.5-5.0 L [facility] CenterMdxdzmxAPXRGQNVE8577-69-95 09:45:00 Test Item Value Reference Range Interpretation Comments Chloride Lvl (test code = Chloride Lvl) 104 95-109 N [facility] CenterBfczrcnLLQOALBFF3860-83-48 09:45:00 Test Item Value Reference Range Interpretation Comments CO2 (test code = CO2) 24 24-32 N [facility] CenterHfpkudrVDDTIAVLA7798-19-36 09:45:00 Test Item Value Reference Range Interpretation Comments Sodium Lvl (test code = Sodium Lvl) 140 135-145 N [facility] CenterUprhfonDWQPSDPXN3004-29-90 09:45:00 Test Item Value Reference Range Interpretation Comments Potassium Lvl (test code = Potassium 4.2 3.5-5.1 N Lvl) [facility] CenterQlzpmcaGMHGYRQCD4328-00-42 09:45:00 Test Item Value Reference Range Interpretation Comments BUN (test code = BUN) 8 7-22 N [facility] CenterBctcbviQVBGJBJGP5763-45-75 09:45:00 Test Item Value Reference Range Interpretation Comments Creatinine Lvl (test code = Creatinine 0.6 0.5-1.4 N Lvl) [facility] CenterHwaphckWCXJKEKGU2870-91-36 09:45:00 Test Item Value Reference Range Interpretation Comments Glucose Lvl (test code = Glucose Lvl) 87 70-99 N [facility] CenterHuripbpNZKVEOUXV9746-70-05 09:45:00 Test Item Value Reference Range Interpretation Comments A/G Ratio (test code = A/G Ratio) 1.3 0.7-1.6 N [facility] CenterOinsrheXNDFXGCKO7214-74-24 09:45:00 Test Item Value Reference Range Interpretation Comments Globulin (test code = Globulin) 2.6 2.0-4.0 N [facility] CenterNyhduyfJPCTKOFZT9224-80-06 09:45:00 Test Item Value Reference Range Interpretation Comments AGAP (test code = AGAP) 16.2 10.0-20.0 N [facility] CenterUtaipfrIWCNWDXBC7236-54-40 09:45:00 Test Item Value Reference Range Interpretation Comments B/C Ratio (test code = B/C Ratio) 13 6-25 N [facility] CenterEfvnvcxBTCZSFPAUP3150-53-96 09:45:00 Test Item Value Reference Range Interpretation Comments Lymphocytes (test code = Lymphocytes) 11.0 20.0-40.0 L [facility] [facility]ZxslzzrGNHWAQUKTF2759-42-39 09:45:00 Test Item Value Reference Range Interpretation Comments Segs (test code = Segs) 86.0 45.0-75.0 [facility] CenterQksxwjpROQWURFDFR6244-48-29 09:45:00 Test Item Value Reference Range Interpretation Comments Bands (test code = 1.0 See_Comment N [Automat ed message] The Bands) system which ge nerated this result transmit ashanti reference range : <=11.0. The reference r megan was not used to interpr et this result as carmen l/abnormal. [facility] CenterTyhgpztQAPYIAKLKE3962-10-32 09:45:00 Test Item Value Reference Range Interpretation Comments Lymphocytes # (test code = Lymphocytes 1.6 1.0-5.5 N #) [facility] CenterKzstadlFVXGYIOKQA2223-32-09 09:45:00 Test Item Value Reference Range Interpretation Comments Monocytes # (test code 0.0 See_Comment N [Aut omated message] The = Monocytes #) system which generated this result tra nsmitted reference range : <=0.8. The reference r megan was not used to int erpret this result as normal/abnormal . [facility] CenterJefckrwMRIXNXVODB6723-03-01 09:45:00 Test Item Value Reference Range Interpretation Comments Segs-Bands # (test code = Segs-Bands #) 13.0 1.5-8.1 [facility] CenterLwwvkpbYJOKLTWFQV9358-78-02 09:45:00 Test Item Value Reference Range Interpretation Comments Plt Morph (test code = Normal (12/11/2012 N Plt Morph) 03:45:00) [facility] CenterDwkrcgdNXFEZWWOHZ6589-32-63 09:45:00 Test Item Value Reference Range Interpretation Comments Hypochrom (test code = Slight (12/11/2012 N Hypochrom) 03:45:00) [facility] CenterFzddgxpPHUSASFCET4901-38-99 09:45:00 Test Item Value Reference Range Interpretation Comments Myelocytes (test code = Myelocytes) 1.0 H [facility] CenterVvljehaAPQRXZIMYK6691-69-67 09:45:00 Test Item Value Reference Range Interpretation Comments Atypical Lymphs (test code = Atypical 0.0 N Lymphs) [facility] CenterZhunurwPIDYAGSATS1913-93-00 09:45:00 Test Item Value Reference Range Interpretation Comments Monocytes (test code = Monocytes) 0.0 2.0-12.0 L [facility] CenterVufrivfMLBOSIROTY5272-12-94 09:45:00 Test Item Value Reference Range Interpretation Comments Metamyelocytes (test code 1.0 See_Comment N [ Automated message] = Metamyelocytes) The system which generated this result transmitted ref erence range: <=1.0. T he reference range was not used to int erpret this result as normal/abnormal . [facility] CenterTtlcqoxOCSRCYCPBG9476-56-26 09:45:00 Test Item Value Reference Range Interpretation Comments RDW (test code = RDW) 16.2 11.5-14.5 H [facility] CenterEytcugaNTDZDQAIMT6954-47-59 09:45:00 Test Item Value Reference Range Interpretation Comments Platelet (test code = Platelet) 268 133-450 N [facility] CenterAyszhbsDNRWVHVRCX2717-02-23 09:45:00 Test Item Value Reference Range Interpretation Comments MPV (test code = MPV) 9.0 7.4-10.4 N [facility] CenterQvmiapjALEWMDMVOP2602-28-22 09:45:00 Test Item Value Reference Range Interpretation Comments MCV (test code = MCV) 81.2 81.0-99.0 N [facility] CenterXbjbiohXPTGDPQQED8964-41-86 09:45:00 Test Item Value Reference Range Interpretation Comments MCH (test code = MCH) 25.7 pg 27.0-31.0 L [facility] CenterDhgwbcfOVLDFAETQB5193-69-99 09:45:00 Test Item Value Reference Range Interpretation Comments MCHC (test code = MCHC) 31.6 32.0-36.0 L [facility] CenterXhfwumsKLXUGNYOSV7717-27-93 09:45:00 Test Item Value Reference Range Interpretation Comments WBC (test code = WBC) 15.0 3.7-10.4 H [facility] CenterZrezislABGZZILSBC5328-97-33 09:45:00 Test Item Value Reference Range Interpretation Comments Hct (test code = Hct) 31.9 36.0-48.0 L [facility] CenterHhicunsFGCCEHEHTI5912-59-95 09:45:00 Test Item Value Reference Range Interpretation Comments Hgb (test code = Hgb) 10.1 12.0-16.0 L [facility] CenterRepsmwhFKNBYWASCM6558-63-15 09:45:00 Test Item Value Reference Range Interpretation Comments RBC (test code = RBC) 3.93 4.20-5.40 L [facility] RowrnobUOQJQZBDQ6576-71-03 09:45:00 Test Item Value Reference Range Interpretation Comments AST (test code = AST) 31 See_Comment N [Auto mated message] The system which ge nerated this result transmit ashanti reference range : <=37. The reference range was not used to interpr et this result as carmen l/abnormal. [facility] GuribysUKQDNLIXS5940-39-82 09:45:00 Test Item Value Reference Range Interpretation Comments Bili Total (test code = Bili Total) 0.4 0.2-1.3 N [facility]OurdzcaDKDBKECRM5817-22-12 09:45:00 Test Item Value Reference Range Interpretation Comments Alk Phos (test code = Alk Phos) 57 39-136 N [facility] CenterGlwcolfDZISDFQGQ7528-63-48 09:45:00 Test Item Value Reference Range Interpretation Comments ALT (test code = ALT) 35 See_Comment N [Auto mated message] The system which ge nerated this result transmit ashanti reference range : <=65. The reference range was not used to interpr et this result as carmen l/abnormal. [facility] GyhrtgcBMDYLJQMB8099-54-20 09:45:00 Test Item Value Reference Range Interpretation Comments Total Protein (test code = Total 5.9 6.4-8.4 L Protein) [facility]QgrwzcqHVVWZEGAI4579-53-06 09:45:00 Test Item Value Reference Range Interpretation Comments eGFR (test code = eGFR) 121 [facility] CenterSltfgpbPNHRTFJKN0020-68-17 09:45:00 Test Item Value Reference Range Interpretation Comments Calcium Lvl (test code = Calcium Lvl) 8.1 8.5-10.5 L [facility] CenterLamzsvuHUJYUBIBF1650-80-99 09:45:00 Test Item Value Reference Range Interpretation Comments Albumin Lvl (test code = Albumin Lvl) 3.3 3.5-5.0 L [facility] CenterWskuirsQRMKKQTCH7485-01-12 09:45:00 Test Item Value Reference Range Interpretation Comments Chloride Lvl (test code = Chloride Lvl) 104 95-109 N [facility] CenterPyjdvcyOPVPTKVMR3697-16-73 09:45:00 Test Item Value Reference Range Interpretation Comments CO2 (test code = CO2) 24 24-32 N [facility] EzgzpabXRWQSMLER6198-43-82 09:45:00 Test Item Value Reference Range Interpretation Comments Sodium Lvl (test code = Sodium Lvl) 140 135-145 N [facility] CenterGeciszfUPPZGXWOC1169-75-08 09:45:00 Test Item Value Reference Range Interpretation Comments Potassium Lvl (test code = Potassium 4.2 3.5-5.1 N Lvl) [facility] CenterZviapfpICKLUYSQB5823-88-67 09:45:00 Test Item Value Reference Range Interpretation Comments BUN (test code = BUN) 8 7-22 N [facility] CenterMeckpafDIYNDQNPW4745-32-97 09:45:00 Test Item Value Reference Range Interpretation Comments Creatinine Lvl (test code = Creatinine 0.6 0.5-1.4 N Lvl) [facility] CenterIudwuhsUFAXEUTXD7009-47-79 09:45:00 Test Item Value Reference Range Interpretation Comments Glucose Lvl (test code = Glucose Lvl) 87 70-99 N [facility] CenterNsiuffvOIZAEVHBZ3652-50-47 09:45:00 Test Item Value Reference Range Interpretation Comments A/G Ratio (test code = A/G Ratio) 1.3 0.7-1.6 N [facility] CenterHewlnrcTTJNOYYRG5329-28-90 09:45:00 Test Item Value Reference Range Interpretation Comments Globulin (test code = Globulin) 2.6 2.0-4.0 N [facility] CenterZrvzayoALAKLQCCJ4023-90-05 09:45:00 Test Item Value Reference Range Interpretation Comments AGAP (test code = AGAP) 16.2 10.0-20.0 N [facility] CenterAplfpfnHKIIWFCHM8261-50-76 09:45:00 Test Item Value Reference Range Interpretation Comments B/C Ratio (test code = B/C Ratio) 13 6-25 N [facility] CenterEotrocpGLZFHSQLOS4545-02-27 09:45:00 Test Item Value Reference Range Interpretation Comments Lymphocytes (test code = Lymphocytes) 11.0 20.0-40.0 L [facility] CenterPiguocfHQMNAXNFUJ8641-64-60 09:45:00 Test Item Value Reference Range Interpretation Comments Segs (test code = Segs) 86.0 45.0-75.0 H [facility] CenterUpfxfsaEOBXWRCIVZ4199-15-43 09:45:00 Test Item Value Reference Range Interpretation Comments Bands (test code = 1.0 See_Comment N [Automat ed message] The Bands) system which ge nerated this result transmit ashanti reference range : <=11.0. The reference r megan was not used to interpr et this result as carmen l/abnormal. [facility] CenterWgakxhqUULGRUCOLB5401-16-76 09:45:00 Test Item Value Reference Range Interpretation Comments Lymphocytes # (test code = Lymphocytes 1.6 1.0-5.5 N #) [facility] CenterUsqprypUFGKBYFWNA1154-81-82 09:45:00 Test Item Value Reference Range Interpretation Comments Monocytes # (test code 0.0 See_Comment N [Aut omated message] The = Monocytes #) system which generated this result tra nsmitted reference range : <=0.8. The reference r megan was not used to int erpret this result as normal/abnormal . [facility] CenterFhouuutGKAOVCYHAD2672-82-54 09:45:00 Test Item Value Reference Range Interpretation Comments Segs-Bands # (test code = Segs-Bands #) 13.0 1.5-8.1 H [facility] CenterVelavnqXOXGHFSUQB3934-97-53 09:45:00 Test Item Value Reference Range Interpretation Comments Plt Morph (test code = Normal (12/11/2012 N Plt Morph) 03:45:00) [facility] CenterQftxvqpLUIQSTAORS8631-20-40 09:45:00 Test Item Value Reference Range Interpretation Comments Hypochrom (test code = Slight (12/11/2012 N Hypochrom) 03:45:00) [facility] CenterUmmpndyABONGXPTAJ8771-56-02 09:45:00 Test Item Value Reference Range Interpretation Comments Myelocytes (test code = Myelocytes) 1.0 H [facility] CenterTnlcgfwITLYLGRRGI7075-71-67 09:45:00 Test Item Value Reference Range Interpretation Comments Atypical Lymphs (test code = Atypical 0.0 N Lymphs) [facility] CenterBituxuhISRMZRFDGD3938-24-52 09:45:00 Test Item Value Reference Range Interpretation Comments Monocytes (test code = Monocytes) 0.0 2.0-12.0 L [facility] CenterVpytmimKMYXMHJDCD0966-56-33 09:45:00 Test Item Value Reference Range Interpretation Comments Metamyelocytes (test code 1.0 See_Comment N [ Automated message] = Metamyelocytes) The system which generated this result transmitted ref erence range: <=1.0. T he reference range was not used to int erpret this result as normal/abnormal . [place] 889543-03-08 09:45:00 Test Item Value Reference Range Interpretation Comments RDW (test code = RDW) 16.2 11.5-14.5 H [facility] CenterVvegbodSMGZLWRBSR1215-18-24 09:45:00 Test Item Value Reference Range Interpretation Comments Platelet (test code = Platelet) 268 133-450 N [facility] CenterYgkxcpgZQMWWLHRZU2967-82-05 09:45:00 Test Item Value Reference Range Interpretation Comments MPV (test code = MPV) 9.0 7.4-10.4 N [facility] CenterRifjnxxPFIREITRTQ2567-43-04 09:45:00 Test Item Value Reference Range Interpretation Comments MCV (test code = MCV) 81.2 81.0-99.0 N [facility] CenterHcooywoXJFKWZJUNN7095-22-64 09:45:00 Test Item Value Reference Range Interpretation Comments MCH (test code = MCH) 25.7 pg 27.0-31.0 L [facility] CenterKurjnmbIYTZGLMONT9506-39-52 09:45:00 Test Item Value Reference Range Interpretation Comments MCHC (test code = MCHC) 31.6 32.0-36.0 L [facility] CenterOsuioqyHLHUMUPMDN8954-62-19 09:45:00 Test Item Value Reference Range Interpretation Comments WBC (test code = WBC) 15.0 3.7-10.4 H [facility] CenterSbjxkoeXEGQTJVGCF7871-69-59 09:45:00 Test Item Value Reference Range Interpretation Comments Hct (test code = Hct) 31.9 36.0-48.0 L [facility] CenterKpeafoxRJZIGWNWSX2521-70-85 09:45:00 Test Item Value Reference Range Interpretation Comments Hgb (test code = Hgb) 10.1 12.0-16.0 L [facility] CenterFxlmcqxLULNOPRHLE9532-46-65 09:45:00 Test Item Value Reference Range Interpretation Comments RBC (test code = RBC) 3.93 4.20-5.40 L [facility] CenterUukhafhEZMJNWPVZ3225-21-55 09:45:00 Test Item Value Reference Range Interpretation Comments AST (test code = AST) 31 See_Comment N [Auto mated message] The system which ge nerated this result transmit ashanti reference range : <=37. The reference range was not used to interpr et this result as carmen l/abnormal. [facility] CenterPipcbiyIOKBNSKDQ8053-64-00 09:45:00 Test Item Value Reference Range Interpretation Comments Bili Total (test code = Bili Total) 0.4 0.2-1.3 N [facility] CenterTbowzcoRGUDIHKAE3101-59-51 09:45:00 Test Item Value Reference Range Interpretation Comments Alk Phos (test code = Alk Phos) 57 39-136 N [facility] CenterWraskabAZHTUUKNW7891-90-26 09:45:00 Test Item Value Reference Range Interpretation Comments ALT (test code = ALT) 35 See_Comment N [Auto mated message] The system which ge nerated this result transmit ashanti reference range : <=65. The reference range was not used to interpr et this result as carmen l/abnormal. [facility] CenterCrivrqxHQDNIYQUI6416-70-13 09:45:00 Test Item Value Reference Range Interpretation Comments Total Protein (test code = Total 5.9 6.4-8.4 L Protein) [facility] CenterOplwuyfQXYBLRZWW0420-48-09 09:45:00 Test Item Value Reference Range Interpretation Comments eGFR (test code = eGFR) 121 [facility] CenterNzfhwcsJNLJEWJUF8226-90-98 09:45:00 Test Item Value Reference Range Interpretation Comments Calcium Lvl (test code = Calcium Lvl) 8.1 8.5-10.5 L [facility] CenterDdlvechBQRWMBOTQ4771-32-34 09:45:00 Test Item Value Reference Range Interpretation Comments Albumin Lvl (test code = Albumin Lvl) 3.3 3.5-5.0 L [facility] CenterDqjtxguTHFYDTQQT4624-47-40 09:45:00 Test Item Value Reference Range Interpretation Comments Chloride Lvl (test code = Chloride Lvl) 104 95-109 N [facility] CenterPalocnkAIUEYVVHR3178-49-83 09:45:00 Test Item Value Reference Range Interpretation Comments CO2 (test code = CO2) 24 24-32 N [facility] CenterIicdtwwBCRHYYDXJ5741-76-81 09:45:00 Test Item Value Reference Range Interpretation Comments Sodium Lvl (test code = Sodium Lvl) 140 135-145 N [facility] CenterVsrwbatIQPLIARLG4323-26-98 09:45:00 Test Item Value Reference Range Interpretation Comments Potassium Lvl (test code = Potassium 4.2 3.5-5.1 N Lvl) [facility] CenterXtjpdjqRWOEMETQB5000-53-35 09:45:00 Test Item Value Reference Range Interpretation Comments BUN (test code = BUN) 8 7-22 N [facility] CenterXngbmvhEGVXELZEL9015-39-98 09:45:00 Test Item Value Reference Range Interpretation Comments Creatinine Lvl (test code = Creatinine 0.6 0.5-1.4 N Lvl) [facility] CenterNbxpszlUXMGBSEPL8943-05-31 09:45:00 Test Item Value Reference Range Interpretation Comments Glucose Lvl (test code = Glucose Lvl) 87 70-99 N [facility] CenterZrpbsdsUDPKSKOQV4885-53-21 09:45:00 Test Item Value Reference Range Interpretation Comments A/G Ratio (test code = A/G Ratio) 1.3 0.7-1.6 N [facility] CenterChtyiedKGDOVSZDQ6354-63-71 09:45:00 Test Item Value Reference Range Interpretation Comments Globulin (test code = Globulin) 2.6 2.0-4.0 N [facility] CenterZvkihfaRFDJJGCTI5607-64-24 09:45:00 Test Item Value Reference Range Interpretation Comments AGAP (test code = AGAP) 16.2 10.0-20.0 N [facility] CenterEhrkrylHUYIQSZWM1731-96-98 09:45:00 Test Item Value Reference Range Interpretation Comments B/C Ratio (test code = B/C Ratio) 13 6-25 N [facility] CenterNwkgqqsEWFIIHJTLM3995-50-22 09:45:00 Test Item Value Reference Range Interpretation Comments Lymphocytes (test code = Lymphocytes) 11.0 20.0-40.0 L [facility] CenterZlgfcpoZERBOQJPHF2872-44-27 09:45:00 Test Item Value Reference Range Interpretation Comments Segs (test code = Segs) 86.0 45.0-75.0 H [facility] CenterFbqqopdTEAJKAYUSU1362-23-01 09:45:00 Test Item Value Reference Range Interpretation Comments Bands (test code = 1.0 See_Comment N [Automat ed message] The Bands) system which ge nerated this result transmit ashanti reference range : <=11.0. The reference r megan was not used to interpr et this result as carmen l/abnormal. [facility] CenterVfapaudAHQZNJRPXN3540-89-04 09:45:00 Test Item Value Reference Range Interpretation Comments Lymphocytes # (test code = Lymphocytes 1.6 1.0-5.5 N #) [facility] CenterYmnqufzXSDTBZBNEM3401-92-49 09:45:00 Test Item Value Reference Range Interpretation Comments Monocytes # (test code 0.0 See_Comment N [Aut omated message] The = Monocytes #) system which generated this result tra nsmitted reference range : <=0.8. The reference r megan was not used to int erpret this result as normal/abnormal . [facility] CenterNyqzuagRQSJJXFIWP5167-12-69 09:45:00 Test Item Value Reference Range Interpretation Comments Segs-Bands # (test code = Segs-Bands #) 13.0 1.5-8.1 H [facility] CenterRlobrdaJRDOGBZJJA0725-48-37 09:45:00 Test Item Value Reference Range Interpretation Comments Plt Morph (test code = Normal (12/11/2012 N Plt Morph) 03:45:00) [facility] CenterHaekdqiWCIZVYTQGN3753-10-57 09:45:00 Test Item Value Reference Range Interpretation Comments Hypochrom (test code = Slight (12/11/2012 N Hypochrom) 03:45:00) [facility] CenterNdcswlsDGIJFIURSP7904-30-89 09:45:00 Test Item Value Reference Range Interpretation Comments Myelocytes (test code = Myelocytes) 1.0 H [facility] CenterBpgxttwALLHQOPUYR9597-82-92 09:45:00 Test Item Value Reference Range Interpretation Comments Atypical Lymphs (test code = Atypical 0.0 N Lymphs) [facility] CenterIlmlrivSFRGGHXVOT4314-79-18 09:45:00 Test Item Value Reference Range Interpretation Comments Monocytes (test code = Monocytes) 0.0 2.0-12.0 L [facility] CenterRcofymcQFYHKGSOWE5158-39-68 09:45:00 Test Item Value Reference Range Interpretation Comments Metamyelocytes (test code 1.0 See_Comment N [ Automated message] = Metamyelocytes) The system which generated this result transmitted ref erence range: <=1.0. T he reference range was not used to int erpret this result as normal/abnormal . [facility] CenterXohvleqHNCVMIJYLX6038-87-44 09:45:00 Test Item Value Reference Range Interpretation Comments RDW (test code = RDW) 16.2 11.5-14.5 H [facility] CenterYneiyxnDYJAJUGGHH4578-13-15 09:45:00 Test Item Value Reference Range Interpretation Comments Platelet (test code = Platelet) 268 133-450 N [facility] CenterImdaebvZOYYLQOSAV6411-73-53 09:45:00 Test Item Value Reference Range Interpretation Comments MPV (test code = MPV) 9.0 7.4-10.4 N [facility] CenterUaygdtjQGTTLGRGCG3352-08-18 09:45:00 Test Item Value Reference Range Interpretation Comments MCV (test code = MCV) 81.2 81.0-99.0 N [facility] CenterJnuveyyXDJKLYXCSG3813-72-47 09:45:00 Test Item Value Reference Range Interpretation Comments MCH (test code = MCH) 25.7 pg 27.0-31.0 L [facility] CenterQhyigcoHBPHAHDWLR8596-67-22 09:45:00 Test Item Value Reference Range Interpretation Comments MCHC (test code = MCHC) 31.6 32.0-36.0 L [facility] CenterNfheffhCWCAUEUOOV4832-85-35 09:45:00 Test Item Value Reference Range Interpretation Comments WBC (test code = WBC) 15.0 3.7-10.4 H [facility] CenterQakzperNGEQVGDJXY5917-70-22 09:45:00 Test Item Value Reference Range Interpretation Comments Hct (test code = Hct) 31.9 36.0-48.0 L [facility] CenterVdmbqolSHYZRZXFTB0258-13-58 09:45:00 Test Item Value Reference Range Interpretation Comments Hgb (test code = Hgb) 10.1 12.0-16.0 L [facility] CenterPhwmaclVEDDZSRTWN5677-68-46 09:45:00 Test Item Value Reference Range Interpretation Comments RBC (test code = RBC) 3.93 4.20-5.40 L [facility] CenterIhujrvgYWZGMKXUD6512-13-29 09:45:00 Test Item Value Reference Range Interpretation Comments AST (test code = AST) 31 See_Comment N [Auto mated message] The system which ge nerated this result transmit ashanti reference range : <=37. The reference range was not used to interpr et this result as carmen l/abnormal. [facility] CenterAaibqjbIUNYONTXD0005-94-43 09:45:00 Test Item Value Reference Range Interpretation Comments Bili Total (test code = Bili Total) 0.4 0.2-1.3 N [facility] CenterCjdzwvwDJHLNDLSC0010-23-07 09:45:00 Test Item Value Reference Range Interpretation Comments Alk Phos (test code = Alk Phos) 57 39-136 N [facility] CenterRzrailgPADBSNXDD6951-53-45 09:45:00 Test Item Value Reference Range Interpretation Comments ALT (test code = ALT) 35 See_Comment N [Auto mated message] The system which ge nerated this result transmit ashanti reference range : <=65. The reference range was not used to interpr et this result as carmen l/abnormal. [facility] CenterKucuvlcKTVQSZGOK1138-54-71 09:45:00 Test Item Value Reference Range Interpretation Comments Total Protein (test code = Total 5.9 6.4-8.4 L Protein) [facility] CenterHetgumaUQFDBXGDC7264-13-74 09:45:00 Test Item Value Reference Range Interpretation Comments eGFR (test code = eGFR) 121 [facility] CenterXwcwrjdKDCBHRIAD3701-75-53 09:45:00 Test Item Value Reference Range Interpretation Comments Calcium Lvl (test code = Calcium Lvl) 8.1 8.5-10.5 L [facility] CenterJzukhdrAZAILVLMB5258-31-06 09:45:00 Test Item Value Reference Range Interpretation Comments Albumin Lvl (test code = Albumin Lvl) 3.3 3.5-5.0 L [facility] CenterYmgrogdCJBFWINNO6120-49-02 09:45:00 Test Item Value Reference Range Interpretation Comments Chloride Lvl (test code = Chloride Lvl) 104 95-109 N [facility] CenterNuqkqniRVCZPSMNC3064-53-18 09:45:00 Test Item Value Reference Range Interpretation Comments CO2 (test code = CO2) 24 24-32 N [facility] CenterBdffzsiNBGBAMYDE9449-94-36 09:45:00 Test Item Value Reference Range Interpretation Comments Sodium Lvl (test code = Sodium Lvl) 140 135-145 N [facility] CenterXmbiyldGREULNYEF4721-99-51 09:45:00 Test Item Value Reference Range Interpretation Comments Potassium Lvl (test code = Potassium 4.2 3.5-5.1 N Lvl) [facility] CenterTwszzbdSFHNTYDKE0566-90-81 09:45:00 Test Item Value Reference Range Interpretation Comments BUN (test code = BUN) 8 7-22 N [facility] CenterRmugfcwHBQZFTTFP7052-52-92 09:45:00 Test Item Value Reference Range Interpretation Comments Creatinine Lvl (test code = Creatinine 0.6 0.5-1.4 N Lvl) [facility] CenterEyfeccuLPVTCYLOI9334-25-65 09:45:00 Test Item Value Reference Range Interpretation Comments Glucose Lvl (test code = Glucose Lvl) 87 70-99 N [facility] CenterRdzbaklTCDREOZRV1644-37-94 09:45:00 Test Item Value Reference Range Interpretation Comments A/G Ratio (test code = A/G Ratio) 1.3 0.7-1.6 N [facility] CenterQupzdwwPEFQGFIUB6369-58-66 09:45:00 Test Item Value Reference Range Interpretation Comments Globulin (test code = Globulin) 2.6 2.0-4.0 N [facility] CenterLmusdxdIEJFUTQNT7536-04-04 09:45:00 Test Item Value Reference Range Interpretation Comments AGAP (test code = AGAP) 16.2 10.0-20.0 N [facility] CenterGifybfcMBVEKOFBC9704-56-07 09:45:00 Test Item Value Reference Range Interpretation Comments B/C Ratio (test code = B/C Ratio) 13 6-25 N [facility] CenterRivnxvdMTZEIOJWLO3900-60-19 09:45:00 Test Item Value Reference Range Interpretation Comments Lymphocytes (test code = Lymphocytes) 11.0 20.0-40.0 L [facility] CenterUlhjyjxNOWEBLWDGE7769-75-22 09:45:00 Test Item Value Reference Range Interpretation Comments Segs (test code = Segs) 86.0 45.0-75.0 H [facility] CenterIktwjphMIYNKCWFIT3151-36-90 09:45:00 Test Item Value Reference Range Interpretation Comments Bands (test code = 1.0 See_Comment N [Automat ed message] The Bands) system which ge nerated this result transmit ashanti reference range : <=11.0. The reference r megan was not used to interpr et this result as carmen l/abnormal. [facility] CenterMwhnwxvOURFAXSZOU7127-34-10 09:45:00 Test Item Value Reference Range Interpretation Comments Lymphocytes # (test code = Lymphocytes 1.6 1.0-5.5 N #) [facility] CenterRdtugtpVMQYZNXEQO0802-34-48 09:45:00 Test Item Value Reference Range Interpretation Comments Monocytes # (test code 0.0 See_Comment N [Aut omated message] The = Monocytes #) system which generated this result tra nsmitted reference range : <=0.8. The reference r megan was not used to int erpret this result as normal/abnormal . [facility] CenterNmnjpqhNMZNNTSIUM8093-77-42 09:45:00 Test Item Value Reference Range Interpretation Comments Segs-Bands # (test code = Segs-Bands #) 13.0 1.5-8.1 [facility] CenterLyzichiDQPZAEYQHK0372-51-30 09:45:00 Test Item Value Reference Range Interpretation Comments Plt Morph (test code = Normal (12/11/2012 N Plt Morph) 03:45:00) [facility]KhffitjAOUYZBOKJJ7661-71-66 09:45:00 Test Item Value Reference Range Interpretation Comments Hypochrom (test code = Slight (12/11/2012 N Hypochrom) 03:45:00) [facility] CenterSjzahsbUNWVUOMVSZ6571-96-14 09:45:00 Test Item Value Reference Range Interpretation Comments Myelocytes (test code = Myelocytes) 1.0 H [facility] CenterWreertjEVJLOBFEOM0622-07-80 09:45:00 Test Item Value Reference Range Interpretation Comments Atypical Lymphs (test code = Atypical 0.0 N Lymphs) [facility] CenterVkgiktcVQAABWTJRZ7722-97-15 09:45:00 Test Item Value Reference Range Interpretation Comments Monocytes (test code = Monocytes) 0.0 2.0-12.0 L [facility] CenterNmmaxunCGJFXIDBXX5672-70-19 09:45:00 Test Item Value Reference Range Interpretation Comments Metamyelocytes (test code 1.0 See_Comment N [ Automated message] = Metamyelocytes) The system which generated this result transmitted ref erence range: <=1.0. T he reference range was not used to int erpret this result as normal/abnormal . [facility] CenterKcxqhdxDJKMLTUSKX1380-80-31 09:45:00 Test Item Value Reference Range Interpretation Comments RDW (test code = RDW) 16.2 11.5-14.5 H [facility] CenterSwlbylpGGGOUAOKKC7101-86-39 09:45:00 Test Item Value Reference Range Interpretation Comments Platelet (test code = Platelet) 268 133-450 N [facility] CenterSuycwfjZUCUPDOIHS7890-29-47 09:45:00 Test Item Value Reference Range Interpretation Comments MPV (test code = MPV) 9.0 7.4-10.4 N [facility] CenterDqkbvdnCUZQTRBQTM5899-63-33 09:45:00 Test Item Value Reference Range Interpretation Comments MCV (test code = MCV) 81.2 81.0-99.0 N [facility] CenterLfhbpzaOACTSEBBOF2528-36-40 09:45:00 Test Item Value Reference Range Interpretation Comments MCH (test code = MCH) 25.7 pg 27.0-31.0 L [facility] CenterTthsaxxDKXCEHIXSW2542-24-40 09:45:00 Test Item Value Reference Range Interpretation Comments MCHC (test code = MCHC) 31.6 32.0-36.0 L [facility] CenterSuqynvvFXHXZUILSX1925-14-45 09:45:00 Test Item Value Reference Range Interpretation Comments WBC (test code = WBC) 15.0 3.7-10.4 H [facility] CenterWhvpxqiOEFKVPXMJX1338-76-48 09:45:00 Test Item Value Reference Range Interpretation Comments Hct (test code = Hct) 31.9 36.0-48.0 L [facility] CenterWziyvmbVHQTLHNYGA6090-92-13 09:45:00 Test Item Value Reference Range Interpretation Comments Hgb (test code = Hgb) 10.1 12.0-16.0 L [facility] CenterZkxmqukHGPBTPZJAG3940-53-50 09:45:00 Test Item Value Reference Range Interpretation Comments RBC (test code = RBC) 3.93 4.20-5.40 L [facility] CenterYrjugeeUFJFEKEWM9288-52-59 09:45:00 Test Item Value Reference Range Interpretation Comments AST (test code = AST) 31 See_Comment N [Auto mated message] The system which ge nerated this result transmit ashanti reference range : <=37. The reference range was not used to interpr et this result as carmen l/abnormal. [facility] CenterKmitpygGQAMSRORK6192-98-07 09:45:00 Test Item Value Reference Range Interpretation Comments Bili Total (test code = Bili Total) 0.4 0.2-1.3 N [facility] CenterQplltpjBLGVWDAAX5820-31-75 09:45:00 Test Item Value Reference Range Interpretation Comments Alk Phos (test code = Alk Phos) 57 39-136 N [facility] CenterDqhlwdfVIRZGXNBB9719-98-01 09:45:00 Test Item Value Reference Range Interpretation Comments ALT (test code = ALT) 35 See_Comment N [Auto mated message] The system which ge nerated this result transmit ashanti reference range : <=65. The reference range was not used to interpr et this result as carmen l/abnormal. [facility] CenterAwuvxgkWIUBDBRHX5224-86-71 09:45:00 Test Item Value Reference Range Interpretation Comments Total Protein (test code = Total 5.9 6.4-8.4 L Protein) [facility] CenterDhtynvdQVRSKJDVT2062-39-78 09:45:00 Test Item Value Reference Range Interpretation Comments eGFR (test code = eGFR) 121 [facility] CenterDwtghbmCHNOWBTWI7070-79-85 09:45:00 Test Item Value Reference Range Interpretation Comments Calcium Lvl (test code = Calcium Lvl) 8.1 8.5-10.5 L [facility] CenterGqueffwNVCALZBRI7007-37-47 09:45:00 Test Item Value Reference Range Interpretation Comments Albumin Lvl (test code = Albumin Lvl) 3.3 3.5-5.0 L [facility] CenterHlndrqmWIMJOXSPR8435-51-68 09:45:00 Test Item Value Reference Range Interpretation Comments Chloride Lvl (test code = Chloride Lvl) 104 95-109 N [facility] CenterBefrrcxRWWFVSBAZ3889-92-76 09:45:00 Test Item Value Reference Range Interpretation Comments CO2 (test code = CO2) 24 24-32 N [facility] CenterOzalbmpCNDWMGWCD0839-30-55 09:45:00 Test Item Value Reference Range Interpretation Comments Sodium Lvl (test code = Sodium Lvl) 140 135-145 N [facility] CenterUpwcrjbSWVNEMENX9513-37-41 09:45:00 Test Item Value Reference Range Interpretation Comments Potassium Lvl (test code = Potassium 4.2 3.5-5.1 N Lvl) [facility] CenterLboextdKCPFFCXYR6687-69-94 09:45:00 Test Item Value Reference Range Interpretation Comments BUN (test code = BUN) 8 7-22 N [facility] CenterRujgknmMONMSXXNJ2611-46-21 09:45:00 Test Item Value Reference Range Interpretation Comments Creatinine Lvl (test code = Creatinine 0.6 0.5-1.4 N Lvl) [facility] CenterKkuiymsDWMNNSYFV1337-68-85 09:45:00 Test Item Value Reference Range Interpretation Comments Glucose Lvl (test code = Glucose Lvl) 87 70-99 N [facility] CenterYffgtatFSUIEHREG4835-60-76 09:45:00 Test Item Value Reference Range Interpretation Comments A/G Ratio (test code = A/G Ratio) 1.3 0.7-1.6 N [facility] CenterSgvhnqvHFJPYFAYL4807-20-43 09:45:00 Test Item Value Reference Range Interpretation Comments Globulin (test code = Globulin) 2.6 2.0-4.0 N [facility] CenterKksxsdoVJKRVELKK4797-00-45 09:45:00 Test Item Value Reference Range Interpretation Comments AGAP (test code = AGAP) 16.2 10.0-20.0 N [facility] CenterMcmibuaJSFOKNNNP2568-28-15 09:45:00 Test Item Value Reference Range Interpretation Comments B/C Ratio (test code = B/C Ratio) 13 6-25 N [facility] CenterHwjrzajCSTCKUVTCI9244-48-73 09:45:00 Test Item Value Reference Range Interpretation Comments Lymphocytes (test code = Lymphocytes) 11.0 20.0-40.0 L [facility] CenterXzzfcckMSCJRRGNMI4470-30-90 09:45:00 Test Item Value Reference Range Interpretation Comments Segs (test code = Segs) 86.0 45.0-75.0 H [facility] CenterPprilsrCSYWKCUSNB2631-68-53 09:45:00 Test Item Value Reference Range Interpretation Comments Bands (test code = 1.0 See_Comment N [Automat ed message] The Bands) system which ge nerated this result transmit ashanti reference range : <=11.0. The reference r megan was not used to interpr et this result as carmen l/abnormal. [facility] CenterVmjiaecYBSLMMWCTB0360-87-62 09:45:00 Test Item Value Reference Range Interpretation Comments Lymphocytes # (test code = Lymphocytes 1.6 1.0-5.5 N #) [facility] CenterAyxlqbeSMWIPNZWOI3705-56-33 09:45:00 Test Item Value Reference Range Interpretation Comments Monocytes # (test code 0.0 See_Comment N [Aut omated message] The = Monocytes #) system which generated this result tra nsmitted reference range : <=0.8. The reference r megan was not used to int erpret this result as normal/abnormal . [facility] CenterWmddfdaXEYUIQQRFF4542-39-96 09:45:00 Test Item Value Reference Range Interpretation Comments Segs-Bands # (test code = Segs-Bands #) 13.0 1.5-8.1 H [facility] CenterEpnooxnSICRYXRNZR2477-84-84 09:45:00 Test Item Value Reference Range Interpretation Comments Plt Morph (test code = Normal (12/11/2012 N Plt Morph) 03:45:00) [facility] CenterBiuanvpKAQADRNBZK2621-88-73 09:45:00 Test Item Value Reference Range Interpretation Comments Hypochrom (test code = Slight (12/11/2012 N Hypochrom) 03:45:00) [facility] CenterIqjpfggHPLPVOHEIA5473-25-46 09:45:00 Test Item Value Reference Range Interpretation Comments Myelocytes (test code = Myelocytes) 1.0 H [facility] CenterTjtfoefOOPAGBPSRN0075-93-13 09:45:00 Test Item Value Reference Range Interpretation Comments Atypical Lymphs (test code = Atypical 0.0 N Lymphs) [facility] CenterUmfrukxZWJDMNHHQE1782-84-61 09:45:00 Test Item Value Reference Range Interpretation Comments Monocytes (test code = Monocytes) 0.0 2.0-12.0 L [facility] CenterRrcsebnSFVASPUTBG7805-15-94 09:45:00 Test Item Value Reference Range Interpretation Comments Metamyelocytes (test code 1.0 See_Comment N [ Automated message] = Metamyelocytes) The system which generated this result transmitted ref erence range: <=1.0. T he reference range was not used to int erpret this result as normal/abnormal . [facility] CenterZwkhbahPGLXNXYOET8007-77-48 09:45:00 Test Item Value Reference Range Interpretation Comments RDW (test code = RDW) 16.2 11.5-14.5 H [facility] CenterWlstxhoADMQKEJWCE3607-34-50 09:45:00 Test Item Value Reference Range Interpretation Comments Platelet (test code = Platelet) 268 133-450 N [facility] CenterArpqdnjHQQTXGUSHS7020-39-07 09:45:00 Test Item Value Reference Range Interpretation Comments MPV (test code = MPV) 9.0 7.4-10.4 N [facility] CenterDgjcsokXIKYGGGNOI1639-41-97 09:45:00 Test Item Value Reference Range Interpretation Comments MCV (test code = MCV) 81.2 81.0-99.0 N [facility] CenterTebxbckFWILCJYQXS2297-78-34 09:45:00 Test Item Value Reference Range Interpretation Comments MCH (test code = MCH) 25.7 pg 27.0-31.0 L [facility] CenterGroretmDQDPRCUOKO9096-73-63 09:45:00 Test Item Value Reference Range Interpretation Comments MCHC (test code = MCHC) 31.6 32.0-36.0 L [facility] CenterUyvcandXSKKMXFIWA8734-15-39 09:45:00 Test Item Value Reference Range Interpretation Comments WBC (test code = WBC) 15.0 3.7-10.4 H [facility] CenterHnlectmGUKQSZUESH3724-28-96 09:45:00 Test Item Value Reference Range Interpretation Comments Hct (test code = Hct) 31.9 36.0-48.0 L [facility] CenterVmlljfoTQGJKABUIU3520-08-95 09:45:00 Test Item Value Reference Range Interpretation Comments Hgb (test code = Hgb) 10.1 12.0-16.0 L [facility] CenterAwdwtgkMQUSDJFTHD0744-05-57 09:45:00 Test Item Value Reference Range Interpretation Comments RBC (test code = RBC) 3.93 4.20-5.40 L [facility] CenterXqyypzsKDGERXJZG3141-29-35 09:45:00 Test Item Value Reference Range Interpretation Comments AST (test code = AST) 31 See_Comment N [Auto mated message] The system which ge nerated this result transmit ashanti reference range : <=37. The reference range was not used to interpr et this result as carmen l/abnormal. [facility] CenterRjwammwKZTNSUNXR7185-68-83 09:45:00 Test Item Value Reference Range Interpretation Comments Bili Total (test code = Bili Total) 0.4 0.2-1.3 N [facility] CenterNyvaxvsNGNKOKJBD8969-41-47 09:45:00 Test Item Value Reference Range Interpretation Comments Alk Phos (test code = Alk Phos) 57 39-136 N [facility] CenterFwgzhdvIBJMFQMPX2153-41-66 09:45:00 Test Item Value Reference Range Interpretation Comments ALT (test code = ALT) 35 See_Comment N [Auto mated message] The system which ge nerated this result transmit ashanti reference range : <=65. The reference range was not used to interpr et this result as carmen l/abnormal. [facility] CenterJwuowkbKPCEQHQPH5935-22-26 09:45:00 Test Item Value Reference Range Interpretation Comments Total Protein (test code = Total 5.9 6.4-8.4 L Protein) [facility] CenterDigdgwhTYDWYGPGE7397-59-75 09:45:00 Test Item Value Reference Range Interpretation Comments eGFR (test code = eGFR) 121 [facility] CenterDdaprnxUSVYNIELO4709-57-71 09:45:00 Test Item Value Reference Range Interpretation Comments Calcium Lvl (test code = Calcium Lvl) 8.1 8.5-10.5 L [facility] CenterAghhsecQXTXSDGYG1428-28-75 09:45:00 Test Item Value Reference Range Interpretation Comments Albumin Lvl (test code = Albumin Lvl) 3.3 3.5-5.0 L [facility] CenterXagkthmHRLPWDRHK0101-50-76 09:45:00 Test Item Value Reference Range Interpretation Comments Chloride Lvl (test code = Chloride Lvl) 104 95-109 N [facility] CenterHwifsqrTIQXTWGMB6952-66-19 09:45:00 Test Item Value Reference Range Interpretation Comments CO2 (test code = CO2) 24 24-32 N [facility] CenterObnymvuVRLVDLRLB8567-13-22 09:45:00 Test Item Value Reference Range Interpretation Comments Sodium Lvl (test code = Sodium Lvl) 140 135-145 N [facility] CenterOkmsgfxHEMPRSQOH3768-00-52 09:45:00 Test Item Value Reference Range Interpretation Comments Potassium Lvl (test code = Potassium 4.2 3.5-5.1 N Lvl) [facility] CenterZgdmobjRYPVEXZLU4084-59-73 09:45:00 Test Item Value Reference Range Interpretation Comments BUN (test code = BUN) 8 7-22 N [facility] CenterZqoafckDSFKEJYON7728-52-66 09:45:00 Test Item Value Reference Range Interpretation Comments AST (test code = AST) 31 See_Comment N [Auto mated message] The system which ge nerated this result transmit ashanti reference range : <=37. The reference range was not used to interpr et this result as carmen l/abnormal. [facility] CenterJkzpsgiUGBWXXJUV4367-00-27 09:45:00 Test Item Value Reference Range Interpretation Comments Creatinine Lvl (test code = Creatinine 0.6 0.5-1.4 N Lvl) [facility] CenterRxuobsvFRNPIOKBG7516-80-50 09:45:00 Test Item Value Reference Range Interpretation Comments Glucose Lvl (test code = Glucose Lvl) 87 70-99 N [facility] CenterNtscedpQIOAQCUMR1443-61-56 09:45:00 Test Item Value Reference Range Interpretation Comments A/G Ratio (test code = A/G Ratio) 1.3 0.7-1.6 N [facility] CenterAtaoeuuHNRVQBCWH5126-43-03 09:45:00 Test Item Value Reference Range Interpretation Comments Globulin (test code = Globulin) 2.6 2.0-4.0 N [facility] CenterMovnuxgIXWPQYCPV6427-25-54 09:45:00 Test Item Value Reference Range Interpretation Comments AGAP (test code = AGAP) 16.2 10.0-20.0 N [facility] CenterMjvpnqhQEAYVCDBJ6875-74-74 09:45:00 Test Item Value Reference Range Interpretation Comments B/C Ratio (test code = B/C Ratio) 13 6-25 N [facility] CenterCvsadtvRPGEVZVALC2472-00-37 09:45:00 Test Item Value Reference Range Interpretation Comments Lymphocytes (test code = Lymphocytes) 11.0 20.0-40.0 L [facility] CenterBzsapalRXBVOHDXYP4118-39-41 09:45:00 Test Item Value Reference Range Interpretation Comments Segs (test code = Segs) 86.0 45.0-75.0 H [facility] CenterMrompuuTGIGYHXDST7145-32-41 09:45:00 Test Item Value Reference Range Interpretation Comments Bands (test code = 1.0 See_Comment N [Automat ed message] The Bands) system which ge nerated this result transmit ashanti reference range : <=11.0. The reference r megan was not used to interpr et this result as carmen l/abnormal. [facility] CenterQwkgktbBJLJVUYNWE9296-39-43 09:45:00 Test Item Value Reference Range Interpretation Comments Lymphocytes # (test code = Lymphocytes 1.6 1.0-5.5 N #) [facility] CenterYjasvvsMQNLKMUOE4989-07-68 09:45:00 Test Item Value Reference Range Interpretation Comments Bili Total (test code = Bili Total) 0.4 0.2-1.3 N [facility] CenterIffpuweGUWMEHAVVF4070-61-44 09:45:00 Test Item Value Reference Range Interpretation Comments Monocytes # (test code 0.0 See_Comment N [Aut omated message] The = Monocytes #) system which generated this result tra nsmitted reference range : <=0.8. The reference r megan was not used to int erpret this result as normal/abnormal . [facility] CenterVdmshfeGZSVLXQKAT0050-79-11 09:45:00 Test Item Value Reference Range Interpretation Comments Segs-Bands # (test code = Segs-Bands #) 13.0 1.5-8.1 H [facility] CenterSmuxpchTKCGUMRTHO3519-70-03 09:45:00 Test Item Value Reference Range Interpretation Comments Plt Morph (test code = Normal (12/11/2012 N Plt Morph) 03:45:00) [facility] CenterYgvsjnvOKXCXCSCAN0859-41-31 09:45:00 Test Item Value Reference Range Interpretation Comments Hypochrom (test code = Slight (12/11/2012 N Hypochrom) 03:45:00) [facility] CenterUhxuzksVRREDIYBUO8131-96-16 09:45:00 Test Item Value Reference Range Interpretation Comments Myelocytes (test code = Myelocytes) 1.0 H [facility] CenterBbnzyexMBGRNAHUKJ7692-49-32 09:45:00 Test Item Value Reference Range Interpretation Comments Atypical Lymphs (test code = Atypical 0.0 N Lymphs) [facility] CenterMitbqwaPXJHUNADYS0121-46-79 09:45:00 Test Item Value Reference Range Interpretation Comments Monocytes (test code = Monocytes) 0.0 2.0-12.0 L [facility] CenterFljmonvNPSSVHQCRW2959-60-50 09:45:00 Test Item Value Reference Range Interpretation Comments Metamyelocytes (test code 1.0 See_Comment N [ Automated message] = Metamyelocytes) The system which generated this result transmitted ref erence range: <=1.0. T he reference range was not used to int erpret this result as normal/abnormal . [facility] CenterQofiakuKCWIEXWMOW6016-07-17 09:45:00 Test Item Value Reference Range Interpretation Comments RDW (test code = RDW) 16.2 11.5-14.5 H [facility] CenterVlkbawqCKLCWUABRU7906-03-71 09:45:00 Test Item Value Reference Range Interpretation Comments Platelet (test code = Platelet) 268 133-450 N [facility] CenterRpsxbhzLZBRMPYRZ8311-24-72 09:45:00 Test Item Value Reference Range Interpretation Comments Alk Phos (test code = Alk Phos) 57 39-136 N [facility] CenterTwvjwkrOPMUIKABXH9974-88-82 09:45:00 Test Item Value Reference Range Interpretation Comments MPV (test code = MPV) 9.0 7.4-10.4 N [facility] CenterTpopwkwNWRWYLDUMW7592-69-69 09:45:00 Test Item Value Reference Range Interpretation Comments MCV (test code = MCV) 81.2 81.0-99.0 N [facility] CenterMsoupldWTMMPHYWEL3426-94-31 09:45:00 Test Item Value Reference Range Interpretation Comments MCH (test code = MCH) 25.7 pg 27.0-31.0 L [facility] CenterJzsoowxOGDORSQJFZ2772-17-80 09:45:00 Test Item Value Reference Range Interpretation Comments MCHC (test code = MCHC) 31.6 32.0-36.0 L [facility] CenterDrkllwzMVRNZNNIKV5928-97-93 09:45:00 Test Item Value Reference Range Interpretation Comments WBC (test code = WBC) 15.0 3.7-10.4 H [facility] CenterTgaomheUEZTIGJZOR2108-12-04 09:45:00 Test Item Value Reference Range Interpretation Comments Hct (test code = Hct) 31.9 36.0-48.0 L [facility] CenterAhxiraaYYGBRTKQJT7830-05-68 09:45:00 Test Item Value Reference Range Interpretation Comments Hgb (test code = Hgb) 10.1 12.0-16.0 L [facility] CenterQixsxhwGBRNSMTSEA9432-04-05 09:45:00 Test Item Value Reference Range Interpretation Comments RBC (test code = RBC) 3.93 4.20-5.40 L [facility] CenterZajebrvVMCKJZDXA0979-87-35 09:45:00 Test Item Value Reference Range Interpretation Comments ALT (test code = ALT) 35 See_Comment N [Auto mated message] The system which ge nerated this result transmit ashanti reference range : <=65. The reference range was not used to interpr et this result as carmen l/abnormal. [facility] CenterUjfxpxqBUFLUFQNI0090-18-30 09:45:00 Test Item Value Reference Range Interpretation Comments Total Protein (test code = Total 5.9 6.4-8.4 L Protein) [facility] CenterAwlajloCAGXSNLJA2977-47-18 09:45:00 Test Item Value Reference Range Interpretation Comments eGFR (test code = eGFR) 121 [facility] CenterUikoprdJCMBJYUPB3651-89-98 09:45:00 Test Item Value Reference Range Interpretation Comments Calcium Lvl (test code = Calcium Lvl) 8.1 8.5-10.5 L [facility] CenterBtspftvMVMLYMEFP3917-72-00 09:45:00 Test Item Value Reference Range Interpretation Comments Albumin Lvl (test code = Albumin Lvl) 3.3 3.5-5.0 L [facility] CenterIxbtxpyBXVKTTKIV5425-91-74 09:45:00 Test Item Value Reference Range Interpretation Comments Chloride Lvl (test code = Chloride Lvl) 104 95-109 N [facility] CenterOugomayTXNQNOZON8943-34-58 09:45:00 Test Item Value Reference Range Interpretation Comments CO2 (test code = CO2) 24 24-32 N [facility] CenterSoegwcwNRUBESQOH6077-07-82 09:45:00 Test Item Value Reference Range Interpretation Comments Sodium Lvl (test code = Sodium Lvl) 140 135-145 N [facility] CenterAkoafomANEEYPOZO5132-37-70 09:45:00 Test Item Value Reference Range Interpretation Comments Potassium Lvl (test code = Potassium 4.2 3.5-5.1 N Lvl) [facility] CenterCrsheetLDQJMGKNE4841-01-96 09:45:00 Test Item Value Reference Range Interpretation Comments BUN (test code = BUN) 8 7-22 N [facility] CenterZaqxcqwXUTVXEHQL4442-60-93 09:45:00 Test Item Value Reference Range Interpretation Comments Creatinine Lvl (test code = Creatinine 0.6 0.5-1.4 N Lvl) [facility] CenterQxdfkdgWGJLAIXMB2117-10-72 09:45:00 Test Item Value Reference Range Interpretation Comments Glucose Lvl (test code = Glucose Lvl) 87 70-99 N [facility] CenterUwozxspYZPJFMTAL6222-14-12 09:45:00 Test Item Value Reference Range Interpretation Comments A/G Ratio (test code = A/G Ratio) 1.3 0.7-1.6 N [facility] CenterWyesuujQPTTKBZSL4697-73-92 09:45:00 Test Item Value Reference Range Interpretation Comments AST (test code = AST) 31 See_Comment N [Auto mated message] The system which ge nerated this result transmit ashanti reference range : <=37. The reference range was not used to interpr et this result as carmen l/abnormal. [facility] CenterKofrwgxJYWFUNEKL8592-17-55 09:45:00 Test Item Value Reference Range Interpretation Comments Globulin (test code = Globulin) 2.6 2.0-4.0 N [facility] CenterTkbwsezTZZMNQMMD9930-08-77 09:45:00 Test Item Value Reference Range Interpretation Comments Bili Total (test code = Bili Total) 0.4 0.2-1.3 N [facility] CenterXjnpyuhVCPTNTVLD4097-80-51 09:45:00 Test Item Value Reference Range Interpretation Comments Alk Phos (test code = Alk Phos) 57 39-136 N [facility] CenterRqtxwkxYIAVDYCSR9864-44-75 09:45:00 Test Item Value Reference Range Interpretation Comments ALT (test code = ALT) 35 See_Comment N [Auto mated message] The system which ge nerated this result transmit ashanti reference range : <=65. The reference range was not used to interpr et this result as carmen l/abnormal. [facility] CenterZlyikzwKAPNXDKNB7906-17-07 09:45:00 Test Item Value Reference Range Interpretation Comments Total Protein (test code = Total 5.9 6.4-8.4 L Protein) [facility] CenterZnflqsrIBXIYBAIR9811-06-06 09:45:00 Test Item Value Reference Range Interpretation Comments eGFR (test code = eGFR) 121 [facility] CenterMwurchxFFANWJEWG0966-56-06 09:45:00 Test Item Value Reference Range Interpretation Comments Calcium Lvl (test code = Calcium Lvl) 8.1 8.5-10.5 L [facility] CenterUkudryaLWKYFUDVZ3991-40-40 09:45:00 Test Item Value Reference Range Interpretation Comments Albumin Lvl (test code = Albumin Lvl) 3.3 3.5-5.0 L [facility] CenterEchnlzpBCQWDDABY1798-59-08 09:45:00 Test Item Value Reference Range Interpretation Comments Chloride Lvl (test code = Chloride Lvl) 104 95-109 N [facility] CenterAgjdbixQLZTIZJKL0089-27-31 09:45:00 Test Item Value Reference Range Interpretation Comments CO2 (test code = CO2) 24 24-32 N [facility] CenterPrkajtcJDFYQSSTE2251-92-73 09:45:00 Test Item Value Reference Range Interpretation Comments Sodium Lvl (test code = Sodium Lvl) 140 135-145 N [facility] CenterZwhqgppTKNGJZBQH1733-46-96 09:45:00 Test Item Value Reference Range Interpretation Comments AGAP (test code = AGAP) 16.2 10.0-20.0 N [facility] CenterCyubveyYQBVEYBEA8272-17-77 09:45:00 Test Item Value Reference Range Interpretation Comments Potassium Lvl (test code = Potassium 4.2 3.5-5.1 N Lvl) [facility] CenterGxawlloKTBZQJTCL0578-94-31 09:45:00 Test Item Value Reference Range Interpretation Comments BUN (test code = BUN) 8 7-22 N [facility] CenterPdmdafnVCERFIPLI9188-82-65 09:45:00 Test Item Value Reference Range Interpretation Comments Creatinine Lvl (test code = Creatinine 0.6 0.5-1.4 N Lvl) [facility] CenterLusfmvvXOTPGLHMV5980-45-99 09:45:00 Test Item Value Reference Range Interpretation Comments Glucose Lvl (test code = Glucose Lvl) 87 70-99 N [facility]TkqwexzRCTMUXKID6871-28-68 09:45:00 Test Item Value Reference Range Interpretation Comments A/G Ratio (test code = A/G Ratio) 1.3 0.7-1.6 N [facility] CenterIucrynmZCRYSFRVS1639-72-93 09:45:00 Test Item Value Reference Range Interpretation Comments Globulin (test code = Globulin) 2.6 2.0-4.0 N [facility] CenterFcgtkcsPFMNSSKXE7287-86-86 09:45:00 Test Item Value Reference Range Interpretation Comments AGAP (test code = AGAP) 16.2 10.0-20.0 N [facility] CenterOjupobrDDQCJVPOJ7078-58-96 09:45:00 Test Item Value Reference Range Interpretation Comments B/C Ratio (test code = B/C Ratio) 13 6-25 N [facility]EcpgjueFFIQIYISLM3580-66-29 09:45:00 Test Item Value Reference Range Interpretation Comments Lymphocytes (test code = Lymphocytes) 11.0 20.0-40.0 L [facility] CenterPxkmtrnPIZTTDXRFV5878-86-19 09:45:00 Test Item Value Reference Range Interpretation Comments Segs (test code = Segs) 86.0 45.0-75.0 [facility] CenterEpjbqadXZMONWHNQ1366-61-15 09:45:00 Test Item Value Reference Range Interpretation Comments B/C Ratio (test code = B/C Ratio) 13 6-25 N [facility] CenterBmmqdqrWCGVFDSIRD6262-05-41 09:45:00 Test Item Value Reference Range Interpretation Comments Bands (test code = 1.0 See_Comment N [Automat ed message] The Bands) system which ge nerated this result transmit ashanti reference range : <=11.0. The reference r megan was not used to interpr et this result as carmen l/abnormal. [facility] CenterOpokhnmXPWOAIWDDU0506-76-68 09:45:00 Test Item Value Reference Range Interpretation Comments Lymphocytes # (test code = Lymphocytes 1.6 1.0-5.5 N #) [facility] CenterTiwjkkgILLIQYLSZR5624-79-42 09:45:00 Test Item Value Reference Range Interpretation Comments Monocytes # (test code 0.0 See_Comment N [Aut omated message] The = Monocytes #) system which generated this result tra nsmitted reference range : <=0.8. The reference r megan was not used to int erpret this result as normal/abnormal . [facility] CenterZykhdidGPOCRRVWMA9832-56-57 09:45:00 Test Item Value Reference Range Interpretation Comments Segs-Bands # (test code = Segs-Bands #) 13.0 1.5-8.1 H [facility] CenterRmnrvxrEGENOCAPOO9788-86-90 09:45:00 Test Item Value Reference Range Interpretation Comments Plt Morph (test code = Normal (12/11/2012 N Plt Morph) 03:45:00) [facility] CenterZpsnvjqYQVYHHPORZ0222-84-92 09:45:00 Test Item Value Reference Range Interpretation Comments Hypochrom (test code = Slight (12/11/2012 N Hypochrom) 03:45:00) [facility] CenterPwevfdyESKRXFFOGK9232-71-03 09:45:00 Test Item Value Reference Range Interpretation Comments Myelocytes (test code = Myelocytes) 1.0 H [facility] CenterXdhbqsmCVERNOMACM8415-66-94 09:45:00 Test Item Value Reference Range Interpretation Comments Atypical Lymphs (test code = Atypical 0.0 N Lymphs) [facility] CenterGioshtvQIIBHBHSEF1999-35-75 09:45:00 Test Item Value Reference Range Interpretation Comments Monocytes (test code = Monocytes) 0.0 2.0-12.0 L [facility] CenterRpywpdvKNOKYYQIVZ2697-37-57 09:45:00 Test Item Value Reference Range Interpretation Comments Metamyelocytes (test code 1.0 See_Comment N [ Automated message] = Metamyelocytes) The system which generated this result transmitted ref erence range: <=1.0. T he reference range was not used to int erpret this result as normal/abnormal . [facility] CenterKetbnvrMBWAUOZHEK2186-97-26 09:45:00 Test Item Value Reference Range Interpretation Comments Lymphocytes (test code = Lymphocytes) 11.0 20.0-40.0 L [facility] CenterJuvslxaNBXFHQLWCZ1217-21-96 09:45:00 Test Item Value Reference Range Interpretation Comments RDW (test code = RDW) 16.2 11.5-14.5 H [facility] CenterClvgdanYXCBZSPMLK8636-74-29 09:45:00 Test Item Value Reference Range Interpretation Comments Platelet (test code = Platelet) 268 133-450 N [facility] CenterUvfupceBMLOBSHTVL4903-22-59 09:45:00 Test Item Value Reference Range Interpretation Comments MPV (test code = MPV) 9.0 7.4-10.4 N [facility] CenterHzcgjrwCYNAMAPJMD8821-37-76 09:45:00 Test Item Value Reference Range Interpretation Comments MCV (test code = MCV) 81.2 81.0-99.0 N [facility] CenterItzxnumGHXOUUXMEZ3130-39-97 09:45:00 Test Item Value Reference Range Interpretation Comments MCH (test code = MCH) 25.7 pg 27.0-31.0 L [facility] CenterJaypekrKWPOHTNTWK2648-61-23 09:45:00 Test Item Value Reference Range Interpretation Comments MCHC (test code = MCHC) 31.6 32.0-36.0 L [facility] CenterGhabhmwGCUWYVGTCW8670-22-69 09:45:00 Test Item Value Reference Range Interpretation Comments WBC (test code = WBC) 15.0 3.7-10.4 H [facility] CenterXkhggmsLYRVPCFZEX6242-00-44 09:45:00 Test Item Value Reference Range Interpretation Comments Hct (test code = Hct) 31.9 36.0-48.0 L [facility] CenterAoddojnGXIXFUKOPY0078-47-01 09:45:00 Test Item Value Reference Range Interpretation Comments Hgb (test code = Hgb) 10.1 12.0-16.0 L [facility] CenterNtshzgrFQLHNAOEFU3379-13-16 09:45:00 Test Item Value Reference Range Interpretation Comments RBC (test code = RBC) 3.93 4.20-5.40 L [facility] CenterGfydyiyLZOHKGMKAS2905-68-70 09:45:00 Test Item Value Reference Range Interpretation Comments Segs (test code = Segs) 86.0 45.0-75.0 H [facility] CenterIfaizdsUSWVQZEBKE2506-42-41 09:45:00 Test Item Value Reference Range Interpretation Comments Bands (test code = 1.0 See_Comment N [Automat ed message] The Bands) system which ge nerated this result transmit ashanti reference range : <=11.0. The reference r megan was not used to interpr et this result as carmen l/abnormal. [facility] CenterKxvbkerHDAINYDVJO2680-78-36 09:45:00 Test Item Value Reference Range Interpretation Comments Lymphocytes # (test code = Lymphocytes 1.6 1.0-5.5 N #) [facility] CenterHgueeoaCRAWTHNDIJ7029-22-72 09:45:00 Test Item Value Reference Range Interpretation Comments Monocytes # (test code 0.0 See_Comment N [Aut omated message] The = Monocytes #) system which generated this result tra nsmitted reference range : <=0.8. The reference r megan was not used to int erpret this result as normal/abnormal . [facility] CenterGmwpyceXQINVUSNVS5386-52-91 09:45:00 Test Item Value Reference Range Interpretation Comments Segs-Bands # (test code = Segs-Bands #) 13.0 1.5-8.1 H [facility] CenterKuhmktxPUQFRJNIIR0565-48-37 09:45:00 Test Item Value Reference Range Interpretation Comments Plt Morph (test code = Normal (12/11/2012 N Plt Morph) 03:45:00) [facility] CenterXkczlanBNERYRWROQ5214-67-80 09:45:00 Test Item Value Reference Range Interpretation Comments Hypochrom (test code = Slight (12/11/2012 N Hypochrom) 03:45:00) [facility] CenterRqiljngOIASLNEMBY0484-09-26 09:45:00 Test Item Value Reference Range Interpretation Comments Myelocytes (test code = Myelocytes) 1.0 H [facility] CenterAhbgqdfZXPVLEJSLO4983-83-50 09:45:00 Test Item Value Reference Range Interpretation Comments Atypical Lymphs (test code = Atypical 0.0 N Lymphs) [facility] CenterAuwkrouAVJXAXOAAS8855-02-59 09:45:00 Test Item Value Reference Range Interpretation Comments Monocytes (test code = Monocytes) 0.0 2.0-12.0 L [facility] CenterWkshgxtDIGTGTAEFV7140-41-15 09:45:00 Test Item Value Reference Range Interpretation Comments Metamyelocytes (test code 1.0 See_Comment N [ Automated message] = Metamyelocytes) The system which generated this result transmitted ref erence range: <=1.0. T he reference range was not used to int erpret this result as normal/abnormal . [facility] CenterRxktqqtBKJMXKLZVV3839-08-63 09:45:00 Test Item Value Reference Range Interpretation Comments RDW (test code = RDW) 16.2 11.5-14.5 H [facility] CenterBbcciwcPFWZBBOBOP8723-26-66 09:45:00 Test Item Value Reference Range Interpretation Comments Platelet (test code = Platelet) 268 133-450 N [facility] CenterKmccbhoLSGRKKSUDN0378-76-27 09:45:00 Test Item Value Reference Range Interpretation Comments MPV (test code = MPV) 9.0 7.4-10.4 N [facility] CenterIpqcwchPAAMPXPRA3335-46-33 09:45:00 Test Item Value Reference Range Interpretation Comments AST (test code = AST) 31 See_Comment N [Auto mated message] The system which ge nerated this result transmit ashanti reference range : <=37. The reference range was not used to interpr et this result as carmen l/abnormal. [facility]UuvmcfbBBXCZIKEI5083-43-01 09:45:00 Test Item Value Reference Range Interpretation Comments Bili Total (test code = Bili Total) 0.4 0.2-1.3 N [facility] CenterPszeutuHNXCHGAFX1615-48-82 09:45:00 Test Item Value Reference Range Interpretation Comments Alk Phos (test code = Alk Phos) 57 39-136 N [facility] SjfjjxgEVZOINSFV4429-38-99 09:45:00 Test Item Value Reference Range Interpretation Comments ALT (test code = ALT) 35 See_Comment N [Auto mated message] The system which ge nerated this result transmit ashanti reference range : <=65. The reference range was not used to interpr et this result as carmen l/abnormal. [facility] CenterZlackdgEEZVTTSFC0501-65-93 09:45:00 Test Item Value Reference Range Interpretation Comments Total Protein (test code = Total 5.9 6.4-8.4 L Protein) [facility] CenterGypnrlqIOUYOQFWS5091-94-07 09:45:00 Test Item Value Reference Range Interpretation Comments eGFR (test code = eGFR) 121 [facility] CenterYificceOICUIVUTM2409-40-64 09:45:00 Test Item Value Reference Range Interpretation Comments Calcium Lvl (test code = Calcium Lvl) 8.1 8.5-10.5 L [facility] CenterJvpulxfHYDZXKWBK0062-27-77 09:45:00 Test Item Value Reference Range Interpretation Comments Albumin Lvl (test code = Albumin Lvl) 3.3 3.5-5.0 L [facility] CenterOmtmdicMDCBGCAXI5064-64-96 09:45:00 Test Item Value Reference Range Interpretation Comments Chloride Lvl (test code = Chloride Lvl) 104 95-109 N [facility] CenterPeccjoyXBYALJZOFR9259-43-52 09:45:00 Test Item Value Reference Range Interpretation Comments MCV (test code = MCV) 81.2 81.0-99.0 N [facility] NyscmldGOPVJYRPK1668-26-99 09:45:00 Test Item Value Reference Range Interpretation Comments CO2 (test code = CO2) 24 24-32 N [facility] CenterXzbtcvoCVCLFXTJF0110-06-20 09:45:00 Test Item Value Reference Range Interpretation Comments Sodium Lvl (test code = Sodium Lvl) 140 135-145 N [facility] CenterIossxlfVGODLRDOK1256-22-31 09:45:00 Test Item Value Reference Range Interpretation Comments Potassium Lvl (test code = Potassium 4.2 3.5-5.1 N Lvl) [facility] CenterPjdjjgfSZMKWVCYV2942-21-77 09:45:00 Test Item Value Reference Range Interpretation Comments BUN (test code = BUN) 8 7-22 N [facility] CenterKmszhidQWTEHPKKS0192-11-57 09:45:00 Test Item Value Reference Range Interpretation Comments Creatinine Lvl (test code = Creatinine 0.6 0.5-1.4 N Lvl) [facility] CenterZcnemizYMBQCONDN8571-07-13 09:45:00 Test Item Value Reference Range Interpretation Comments Glucose Lvl (test code = Glucose Lvl) 87 70-99 N [facility] CenterZdpouplIXOUTMISN5132-54-85 09:45:00 Test Item Value Reference Range Interpretation Comments A/G Ratio (test code = A/G Ratio) 1.3 0.7-1.6 N [facility] CenterSzumzpeUETVJPVIA5091-46-58 09:45:00 Test Item Value Reference Range Interpretation Comments Globulin (test code = Globulin) 2.6 2.0-4.0 N [facility] CenterLduvbrgXJRNYLEOV9490-04-25 09:45:00 Test Item Value Reference Range Interpretation Comments AGAP (test code = AGAP) 16.2 10.0-20.0 N [facility] CenterPiksgarZDNTVJQWC1466-61-12 09:45:00 Test Item Value Reference Range Interpretation Comments B/C Ratio (test code = B/C Ratio) 13 6-25 N [facility] CenterShwqkvbHGSYXVKTLF7424-03-69 09:45:00 Test Item Value Reference Range Interpretation Comments MCH (test code = MCH) 25.7 pg 27.0-31.0 L [facility] CenterVojtqyeIYIYFLHIAS6756-94-02 09:45:00 Test Item Value Reference Range Interpretation Comments Lymphocytes (test code = Lymphocytes) 11.0 20.0-40.0 L [facility] CenterXumodciPQJTDYBHBO8521-75-16 09:45:00 Test Item Value Reference Range Interpretation Comments Segs (test code = Segs) 86.0 45.0-75.0 H [facility] CenterZticjuxNBSQZAMXKR5474-93-98 09:45:00 Test Item Value Reference Range Interpretation Comments Bands (test code = 1.0 See_Comment N [Automat ed message] The Bands) system which ge nerated this result transmit ashanti reference range : <=11.0. The reference r megan was not used to interpr et this result as carmen l/abnormal. [facility] CenterJzetpcsWNIWKRBSBG7288-25-38 09:45:00 Test Item Value Reference Range Interpretation Comments Lymphocytes # (test code = Lymphocytes 1.6 1.0-5.5 N #) [facility] CenterPsfjsanTCOETAYQQK8593-91-82 09:45:00 Test Item Value Reference Range Interpretation Comments Monocytes # (test code 0.0 See_Comment N [Aut omated message] The = Monocytes #) system which generated this result tra nsmitted reference range : <=0.8. The reference r megan was not used to int erpret this result as normal/abnormal . [facility] CenterZhuydaoJMASHWPNYS7400-98-72 09:45:00 Test Item Value Reference Range Interpretation Comments Segs-Bands # (test code = Segs-Bands #) 13.0 1.5-8.1 H [facility] CenterFyykmidJVXKGTYGWE0110-45-87 09:45:00 Test Item Value Reference Range Interpretation Comments Plt Morph (test code = Normal (12/11/2012 N Plt Morph) 03:45:00) [facility] CenterMvqvlakRJUVYRAYJJ0694-20-21 09:45:00 Test Item Value Reference Range Interpretation Comments Hypochrom (test code = Slight (12/11/2012 N Hypochrom) 03:45:00) [facility] CenterKdeyomuLGPKVIUUGQ7136-08-88 09:45:00 Test Item Value Reference Range Interpretation Comments Myelocytes (test code = Myelocytes) 1.0 H [facility] CenterBdfdsnhPKLAXNKJPC6523-38-60 09:45:00 Test Item Value Reference Range Interpretation Comments Atypical Lymphs (test code = Atypical 0.0 N Lymphs) [facility] CenterLqivyjhYGTYENJPIJ7617-28-87 09:45:00 Test Item Value Reference Range Interpretation Comments MCHC (test code = MCHC) 31.6 32.0-36.0 L [facility] CenterOftoeyzPBRATJFWJI9940-02-22 09:45:00 Test Item Value Reference Range Interpretation Comments Monocytes (test code = Monocytes) 0.0 2.0-12.0 L [facility] CenterDocwkpqIHZLNUWZGF7834-74-28 09:45:00 Test Item Value Reference Range Interpretation Comments Metamyelocytes (test code 1.0 See_Comment N [ Automated message] = Metamyelocytes) The system which generated this result transmitted ref erence range: <=1.0. T he reference range was not used to int erpret this result as normal/abnormal . [facility] CenterIaqxadlRBLXNZIHTZ1236-00-41 09:45:00 Test Item Value Reference Range Interpretation Comments RDW (test code = RDW) 16.2 11.5-14.5 H [facility] CenterEmtrbjnXFQQQYMSHS2831-78-74 09:45:00 Test Item Value Reference Range Interpretation Comments Platelet (test code = Platelet) 268 133-450 N [facility] CenterDtejstwROMIKTDVJQ7449-96-87 09:45:00 Test Item Value Reference Range Interpretation Comments MPV (test code = MPV) 9.0 7.4-10.4 N [facility] CenterPlekvihHTWKHNMUDQ6198-54-24 09:45:00 Test Item Value Reference Range Interpretation Comments MCV (test code = MCV) 81.2 81.0-99.0 N [facility] CenterZivlhdvQAFPYHVYRR5626-18-72 09:45:00 Test Item Value Reference Range Interpretation Comments MCH (test code = MCH) 25.7 pg 27.0-31.0 L [facility] CenterVkzbzynHXIZJXDVSD5245-59-91 09:45:00 Test Item Value Reference Range Interpretation Comments MCHC (test code = MCHC) 31.6 32.0-36.0 L [facility] CenterPdfdpgrRCGRMXXFWY7691-83-47 09:45:00 Test Item Value Reference Range Interpretation Comments WBC (test code = WBC) 15.0 3.7-10.4 H [facility] CenterFonqyfrNNZAYRHGCG6733-23-81 09:45:00 Test Item Value Reference Range Interpretation Comments Hct (test code = Hct) 31.9 36.0-48.0 L [facility] CenterZvviwwkYRYDMLYMEA8190-41-18 09:45:00 Test Item Value Reference Range Interpretation Comments WBC (test code = WBC) 15.0 3.7-10.4 H [facility] CenterJqguqdeUWJISFDAOJ8262-68-14 09:45:00 Test Item Value Reference Range Interpretation Comments Hgb (test code = Hgb) 10.1 12.0-16.0 L [facility] CenterWgfrlnfDELGIVSCQU4684-57-32 09:45:00 Test Item Value Reference Range Interpretation Comments RBC (test code = RBC) 3.93 4.20-5.40 L [facility] CenterQejoqyjAUNDBFRZHY6660-83-51 09:45:00 Test Item Value Reference Range Interpretation Comments Hct (test code = Hct) 31.9 36.0-48.0 L [facility] CenterLmajlrmLCMIDUQFGS5546-66-65 09:45:00 Test Item Value Reference Range Interpretation Comments Hgb (test code = Hgb) 10.1 12.0-16.0 L [facility] CenterSohxsjrEDDJRLAXGR3079-63-78 09:45:00 Test Item Value Reference Range Interpretation Comments RBC (test code = RBC) 3.93 4.20-5.40 L [facility] CenterLgrthzkRGNCMMAUA6963-12-29 09:45:00 Test Item Value Reference Range Interpretation Comments AST (test code = AST) 31 See_Comment N [Auto mated message] The system which ge nerated this result transmit ashanti reference range : <=37. The reference range was not used to interpr et this result as carmen l/abnormal. [facility] CenterYflknamHEXYUSSRM6440-90-11 09:45:00 Test Item Value Reference Range Interpretation Comments Bili Total (test code = Bili Total) 0.4 0.2-1.3 N [facility] CenterUywjhobGJXJEWOSA5721-52-23 09:45:00 Test Item Value Reference Range Interpretation Comments Alk Phos (test code = Alk Phos) 57 39-136 N [facility] CenterGoqcpixSJLEWEFCS9761-00-59 09:45:00 Test Item Value Reference Range Interpretation Comments ALT (test code = ALT) 35 See_Comment N [Auto mated message] The system which ge nerated this result transmit ashanti reference range : <=65. The reference range was not used to interpr et this result as carmen l/abnormal. [facility] CenterScbytpaMHKLUSPLH0487-93-38 09:45:00 Test Item Value Reference Range Interpretation Comments Total Protein (test code = Total 5.9 6.4-8.4 L Protein) [facility] CenterCaymlyxMDMZTWCCL8205-01-37 09:45:00 Test Item Value Reference Range Interpretation Comments eGFR (test code = eGFR) 121 [facility] CenterDwepzwlZUVWHHVCO5395-42-17 09:45:00 Test Item Value Reference Range Interpretation Comments Calcium Lvl (test code = Calcium Lvl) 8.1 8.5-10.5 L [facility] CenterIqpnlkcNIADQDYJC3945-41-51 09:45:00 Test Item Value Reference Range Interpretation Comments Albumin Lvl (test code = Albumin Lvl) 3.3 3.5-5.0 L [facility] CenterPosvisyENOCAFUCC4095-38-27 09:45:00 Test Item Value Reference Range Interpretation Comments Chloride Lvl (test code = Chloride Lvl) 104 95-109 N [facility] CenterNkeaennELWLFCPIP2807-09-17 09:45:00 Test Item Value Reference Range Interpretation Comments CO2 (test code = CO2) 24 24-32 N [facility] CenterVxzeetsFRWBHPSCH9898-53-67 09:45:00 Test Item Value Reference Range Interpretation Comments Sodium Lvl (test code = Sodium Lvl) 140 135-145 N [facility] CenterEauoemnNNIGFMXEG0951-09-78 09:45:00 Test Item Value Reference Range Interpretation Comments Potassium Lvl (test code = Potassium 4.2 3.5-5.1 N Lvl) [facility] CenterHypivfeWEOXLWJZQ5101-16-73 09:45:00 Test Item Value Reference Range Interpretation Comments BUN (test code = BUN) 8 7-22 N [facility] CenterKjysajjFOJXWOIGN1577-50-28 09:45:00 Test Item Value Reference Range Interpretation Comments Creatinine Lvl (test code = Creatinine 0.6 0.5-1.4 N Lvl) [facility] CenterWorumtkNZUFKFUIL3137-90-09 09:45:00 Test Item Value Reference Range Interpretation Comments Glucose Lvl (test code = Glucose Lvl) 87 70-99 N [facility] CenterJksowhoTIUGGEYUP1075-41-81 09:45:00 Test Item Value Reference Range Interpretation Comments A/G Ratio (test code = A/G Ratio) 1.3 0.7-1.6 N [facility] CenterYfrwwnuESWRDLUKK5137-27-90 09:45:00 Test Item Value Reference Range Interpretation Comments Globulin (test code = Globulin) 2.6 2.0-4.0 N [facility] CenterKyyptirCNWURKHNQ5125-16-30 09:45:00 Test Item Value Reference Range Interpretation Comments AGAP (test code = AGAP) 16.2 10.0-20.0 N [facility] CenterFwdadmbDRGQCEOQF5674-91-31 09:45:00 Test Item Value Reference Range Interpretation Comments B/C Ratio (test code = B/C Ratio) 13 6-25 N [facility] CenterMifrllvCSQGWNXGNG6294-88-40 09:45:00 Test Item Value Reference Range Interpretation Comments Lymphocytes (test code = Lymphocytes) 11.0 20.0-40.0 L [facility] CenterAsfhyqgBXIVBLPVUV6482-58-36 09:45:00 Test Item Value Reference Range Interpretation Comments Segs (test code = Segs) 86.0 45.0-75.0 H [facility] CenterNiwlmesBNIZKEENNH7514-98-98 09:45:00 Test Item Value Reference Range Interpretation Comments Bands (test code = 1.0 See_Comment N [Automat ed message] The Bands) system which ge nerated this result transmit ashanti reference range : <=11.0. The reference r megan was not used to interpr et this result as carmen l/abnormal. [facility] CenterMwbvtgjCHGNPBEHCQ1460-60-47 09:45:00 Test Item Value Reference Range Interpretation Comments Lymphocytes # (test code = Lymphocytes 1.6 1.0-5.5 N #) [facility] CenterHaykqqfOPBFIMICXH7923-33-96 09:45:00 Test Item Value Reference Range Interpretation Comments Monocytes # (test code 0.0 See_Comment N [Aut omated message] The = Monocytes #) system which generated this result tra nsmitted reference range : <=0.8. The reference r megan was not used to int erpret this result as normal/abnormal . [facility] CenterGxatzmoFXIXJLDWDW4931-78-13 09:45:00 Test Item Value Reference Range Interpretation Comments Segs-Bands # (test code = Segs-Bands #) 13.0 1.5-8.1 H [facility] CenterSvuxvunFCJNLNOMEI0752-63-91 09:45:00 Test Item Value Reference Range Interpretation Comments Plt Morph (test code = Normal (12/11/2012 N Plt Morph) 03:45:00) [facility] CenterLauckgfZGSTYBHRGC2981-84-97 09:45:00 Test Item Value Reference Range Interpretation Comments Hypochrom (test code = Slight (12/11/2012 N Hypochrom) 03:45:00) [facility] CenterIsqwmuvOFXZEQBSYO4618-61-18 09:45:00 Test Item Value Reference Range Interpretation Comments Myelocytes (test code = Myelocytes) 1.0 H [facility] CenterUhulmbzWFQEMXLYVP0041-62-95 09:45:00 Test Item Value Reference Range Interpretation Comments Atypical Lymphs (test code = Atypical 0.0 N Lymphs) [facility] CenterCwzzfglBUHYOPNXKW6919-90-90 09:45:00 Test Item Value Reference Range Interpretation Comments Monocytes (test code = Monocytes) 0.0 2.0-12.0 L [facility] CenterRktgbfnRSLIVUSKNS6499-09-16 09:45:00 Test Item Value Reference Range Interpretation Comments Metamyelocytes (test code 1.0 See_Comment N [ Automated message] = Metamyelocytes) The system which generated this result transmitted ref erence range: <=1.0. T he reference range was not used to int erpret this result as normal/abnormal . [facility] CenterPokimjbJCIFNUISXH2352-21-46 09:45:00 Test Item Value Reference Range Interpretation Comments RDW (test code = RDW) 16.2 11.5-14.5 H [facility] CenterIcfdmvhABWRCJMVDO3997-47-26 09:45:00 Test Item Value Reference Range Interpretation Comments Platelet (test code = Platelet) 268 133-450 N [facility] CenterCvbpuxuTZMMIFZFUK1369-19-32 09:45:00 Test Item Value Reference Range Interpretation Comments MPV (test code = MPV) 9.0 7.4-10.4 N [facility] CenterWgtlcsjBGZKYQMGGM2562-12-40 09:45:00 Test Item Value Reference Range Interpretation Comments MCV (test code = MCV) 81.2 81.0-99.0 N [facility] CenterIkymnvgTKOBZRAMMV1593-22-80 09:45:00 Test Item Value Reference Range Interpretation Comments MCH (test code = MCH) 25.7 pg 27.0-31.0 L [facility] CenterKmfdbodWJFKHACKHL1346-34-12 09:45:00 Test Item Value Reference Range Interpretation Comments MCHC (test code = MCHC) 31.6 32.0-36.0 L [facility] CenterYglohkpYOKLPJHAWD0258-16-27 09:45:00 Test Item Value Reference Range Interpretation Comments WBC (test code = WBC) 15.0 3.7-10.4 H [facility] CenterXeytkgdRCEQKTINTD8322-53-82 09:45:00 Test Item Value Reference Range Interpretation Comments Hct (test code = Hct) 31.9 36.0-48.0 [facility] CenterLeikfzbUVBIWKHEKP6031-36-94 09:45:00 Test Item Value Reference Range Interpretation Comments Hgb (test code = Hgb) 10.1 12.0-16.0 L [facility] CenterOejzmbrJTHNZZGLTT8051-63-36 09:45:00 Test Item Value Reference Range Interpretation Comments RBC (test code = RBC) 3.93 4.20-5.40 L [facility] CenterCfljcerYKGIUPFNY6861-95-06 09:45:00 Test Item Value Reference Range Interpretation Comments AST (test code = AST) 31 See_Comment N [Auto mated message] The system which ge nerated this result transmit ashanti reference range : <=37. The reference range was not used to interpr et this result as carmen l/abnormal. [facility] CenterRltxdcuANBIUHVFI0960-60-70 09:45:00 Test Item Value Reference Range Interpretation Comments Bili Total (test code = Bili Total) 0.4 0.2-1.3 N [facility] CenterEdnvqphYDVONGRMF8053-48-53 09:45:00 Test Item Value Reference Range Interpretation Comments Alk Phos (test code = Alk Phos) 57 39-136 N [facility] CenterUcthkjhTFCBPJUMV9114-19-00 09:45:00 Test Item Value Reference Range Interpretation Comments ALT (test code = ALT) 35 See_Comment N [Auto mated message] The system which ge nerated this result transmit ashanti reference range : <=65. The reference range was not used to interpr et this result as carmen l/abnormal. [facility] CenterJagljjjATIDHGVHX8618-41-83 09:45:00 Test Item Value Reference Range Interpretation Comments Total Protein (test code = Total 5.9 6.4-8.4 L Protein) [facility] CenterGqxjxcxIFVMJKELU4739-25-88 09:45:00 Test Item Value Reference Range Interpretation Comments eGFR (test code = eGFR) 121 [facility] CenterMwppgvmXHSEQZWLS9353-88-15 09:45:00 Test Item Value Reference Range Interpretation Comments Calcium Lvl (test code = Calcium Lvl) 8.1 8.5-10.5 L [facility] CenterZwnexcnBSHIVFOID9368-70-09 09:45:00 Test Item Value Reference Range Interpretation Comments Albumin Lvl (test code = Albumin Lvl) 3.3 3.5-5.0 L [facility] CenterWupcsetAHHDXRQBT1389-94-73 09:45:00 Test Item Value Reference Range Interpretation Comments Chloride Lvl (test code = Chloride Lvl) 104 95-109 N [facility] CenterAzgpfouOMLDFSHFN4811-58-19 09:45:00 Test Item Value Reference Range Interpretation Comments CO2 (test code = CO2) 24 24-32 N [facility] CenterVtxmypfPJCQOCXRM5519-04-77 09:45:00 Test Item Value Reference Range Interpretation Comments Sodium Lvl (test code = Sodium Lvl) 140 135-145 N [facility] CenterTcdfmxoRMVYTLNHI9047-80-11 09:45:00 Test Item Value Reference Range Interpretation Comments Potassium Lvl (test code = Potassium 4.2 3.5-5.1 N Lvl) [facility] CenterLjbomloXHAXRLOGP7012-99-26 09:45:00 Test Item Value Reference Range Interpretation Comments BUN (test code = BUN) 8 7-22 N [facility] CenterKehtidnENJGJRVTL2611-55-47 09:45:00 Test Item Value Reference Range Interpretation Comments Creatinine Lvl (test code = Creatinine 0.6 0.5-1.4 N Lvl) [facility] CenterXxggqclUTBPKUZYV2614-05-63 09:45:00 Test Item Value Reference Range Interpretation Comments Glucose Lvl (test code = Glucose Lvl) 87 70-99 N [facility] CenterEfulmljZOABYCJKU8289-64-84 09:45:00 Test Item Value Reference Range Interpretation Comments A/G Ratio (test code = A/G Ratio) 1.3 0.7-1.6 N [facility] CenterEgyxigoCIXRHVGPQ3784-45-75 09:45:00 Test Item Value Reference Range Interpretation Comments Globulin (test code = Globulin) 2.6 2.0-4.0 N [facility] CenterIswzynxIJKMCFHEI5414-42-91 09:45:00 Test Item Value Reference Range Interpretation Comments AGAP (test code = AGAP) 16.2 10.0-20.0 N [facility] CenterSmoculmYZIYHJIDK8090-01-86 09:45:00 Test Item Value Reference Range Interpretation Comments B/C Ratio (test code = B/C Ratio) 13 6-25 N [facility] CenterWjzgbczFVWZERAFZM6079-32-59 09:45:00 Test Item Value Reference Range Interpretation Comments Lymphocytes (test code = Lymphocytes) 11.0 20.0-40.0 L [facility] CenterZvvlcepZAZFSLZPRZ4923-53-38 09:45:00 Test Item Value Reference Range Interpretation Comments Segs (test code = Segs) 86.0 45.0-75.0 H [facility] CenterGesfkmqHCIIMBUQOK9263-77-10 09:45:00 Test Item Value Reference Range Interpretation Comments Bands (test code = 1.0 See_Comment N [Automat ed message] The Bands) system which ge nerated this result transmit ashanti reference range : <=11.0. The reference r megan was not used to interpr et this result as carmen l/abnormal. [facility] CenterGrkyrqcWQIPVNZJAH2651-69-34 09:45:00 Test Item Value Reference Range Interpretation Comments Lymphocytes # (test code = Lymphocytes 1.6 1.0-5.5 N #) [facility] CenterXnficymXPMMAJYBKP6230-69-26 09:45:00 Test Item Value Reference Range Interpretation Comments Monocytes # (test code 0.0 See_Comment N [Aut omated message] The = Monocytes #) system which generated this result tra nsmitted reference range : <=0.8. The reference r megan was not used to int erpret this result as normal/abnormal . [facility] CenterYmxlucpMULFYDQBRI5181-14-39 09:45:00 Test Item Value Reference Range Interpretation Comments Segs-Bands # (test code = Segs-Bands #) 13.0 1.5-8.1 H [facility] CenterKcbholoPPUOHUXIUS6428-54-60 09:45:00 Test Item Value Reference Range Interpretation Comments Plt Morph (test code = Normal (12/11/2012 N Plt Morph) 03:45:00) [facility] CenterMbcbgzfHNGPSWTFHA5334-10-10 09:45:00 Test Item Value Reference Range Interpretation Comments Hypochrom (test code = Slight (12/11/2012 N Hypochrom) 03:45:00) [facility] CenterGyzffifLXGOIPHWRX8606-84-98 09:45:00 Test Item Value Reference Range Interpretation Comments Myelocytes (test code = Myelocytes) 1.0 H [facility] CenterNuinaiiPIVPSJWNZQ9946-10-90 09:45:00 Test Item Value Reference Range Interpretation Comments Atypical Lymphs (test code = Atypical 0.0 N Lymphs) [facility] CenterFimcmdcTBZZHDPUAI2858-79-25 09:45:00 Test Item Value Reference Range Interpretation Comments Monocytes (test code = Monocytes) 0.0 2.0-12.0 L [facility] CenterCdqttkzVVCIGPFAES1568-10-75 09:45:00 Test Item Value Reference Range Interpretation Comments Metamyelocytes (test code 1.0 See_Comment N [ Automated message] = Metamyelocytes) The system which generated this result transmitted ref erence range: <=1.0. T he reference range was not used to int erpret this result as normal/abnormal . [facility] CenterFsnjkfuVRVPACQCCX8726-51-20 09:45:00 Test Item Value Reference Range Interpretation Comments RDW (test code = RDW) 16.2 11.5-14.5 H [facility] CenterIafeqggNYOOITUIQP9616-86-05 09:45:00 Test Item Value Reference Range Interpretation Comments Platelet (test code = Platelet) 268 133-450 N [facility] CenterKhcedmqCIIHTBLDPF1092-82-98 09:45:00 Test Item Value Reference Range Interpretation Comments MPV (test code = MPV) 9.0 7.4-10.4 N [facility] CenterNaluxzbEKGQYHOTEB9575-55-30 09:45:00 Test Item Value Reference Range Interpretation Comments MCV (test code = MCV) 81.2 81.0-99.0 N [facility] CenterKegnzamLNXWPUHKJK4541-70-94 09:45:00 Test Item Value Reference Range Interpretation Comments MCH (test code = MCH) 25.7 pg 27.0-31.0 L [facility] CenterLdwihecSSLFRRMHUT4603-59-34 09:45:00 Test Item Value Reference Range Interpretation Comments MCHC (test code = MCHC) 31.6 32.0-36.0 L [facility] CenterSfulwahBCLJMWZVVP0725-93-00 09:45:00 Test Item Value Reference Range Interpretation Comments WBC (test code = WBC) 15.0 3.7-10.4 H [facility] CenterTcrwfvyTDMBWSIJIT2488-75-32 09:45:00 Test Item Value Reference Range Interpretation Comments Hct (test code = Hct) 31.9 36.0-48.0 L [facility]XawoypqRMELSDFQQE9052-47-06 09:45:00 Test Item Value Reference Range Interpretation Comments Hgb (test code = Hgb) 10.1 12.0-16.0 L [facility] CenterFgdwzwoNFWJHYFRDA4634-36-21 09:45:00 Test Item Value Reference Range Interpretation Comments RBC (test code = RBC) 3.93 4.20-5.40 L [facility]VrvzsfxMZXPVBMBL0189-56-95 09:45:00 Test Item Value Reference Range Interpretation Comments AST (test code = AST) 31 See_Comment N [Auto mated message] The system which ge nerated this result transmit ashanti reference range : <=37. The reference range was not used to interpr et this result as carmen l/abnormal. [facility] LsorxoyEAEXHGQDT1525-10-09 09:45:00 Test Item Value Reference Range Interpretation Comments Bili Total (test code = Bili Total) 0.4 0.2-1.3 N [facility]LcdpjxdILMJUZIQV1526-11-00 09:45:00 Test Item Value Reference Range Interpretation Comments Alk Phos (test code = Alk Phos) 57 39-136 N [facility] CenterWdqjolpKVOUFBCSS2637-38-09 09:45:00 Test Item Value Reference Range Interpretation Comments ALT (test code = ALT) 35 See_Comment N [Auto mated message] The system which nerated this result transmit ashanti reference range : <=65. The reference range was not used to interpr et this result as carmen l/abnormal. [facility] CenterRsyevadZZHPEJDFC8331-38-93 09:45:00 Test Item Value Reference Range Interpretation Comments Total Protein (test code = Total 5.9 6.4-8.4 L Protein) [facility] CenterKrnvrgmORCPZGVUG3119-48-26 09:45:00 Test Item Value Reference Range Interpretation Comments eGFR (test code = eGFR) 121 [facility] CenterUqffpcgCSDSARUNP5295-77-79 09:45:00 Test Item Value Reference Range Interpretation Comments Calcium Lvl (test code = Calcium Lvl) 8.1 8.5-10.5 L [facility] CenterQcnptdmWPQDALYGF4451-02-33 09:45:00 Test Item Value Reference Range Interpretation Comments Albumin Lvl (test code = Albumin Lvl) 3.3 3.5-5.0 L [facility] WvxoargRJGJXASIX4486-96-64 09:45:00 Test Item Value Reference Range Interpretation Comments Chloride Lvl (test code = Chloride Lvl) 104 95-109 N [facility] OjjtpzpFKYLWUKCI5307-48-31 09:45:00 Test Item Value Reference Range Interpretation Comments CO2 (test code = CO2) 24 24-32 N [facility] CenterWwlfhwuNGQHMZSNI8770-98-70 09:45:00 Test Item Value Reference Range Interpretation Comments Sodium Lvl (test code = Sodium Lvl) 140 135-145 N [facility] CenterXuopynoCVAYNSHOG0880-01-71 09:45:00 Test Item Value Reference Range Interpretation Comments Potassium Lvl (test code = Potassium 4.2 3.5-5.1 N Lvl) [facility]QqbequoAQDAPLSNT6237-92-25 09:45:00 Test Item Value Reference Range Interpretation Comments BUN (test code = BUN) 8 7-22 N [facility] CenterXngkbopUTGAUAJRU5120-31-82 09:45:00 Test Item Value Reference Range Interpretation Comments Creatinine Lvl (test code = Creatinine 0.6 0.5-1.4 N Lvl) [facility] CenterCihpmopMNFPFECKB6982-86-06 09:45:00 Test Item Value Reference Range Interpretation Comments Glucose Lvl (test code = Glucose Lvl) 87 70-99 N [facility] CenterCxrprzfBIJOPZESW1019-96-28 09:45:00 Test Item Value Reference Range Interpretation Comments A/G Ratio (test code = A/G Ratio) 1.3 0.7-1.6 N [facility] CenterOkrvrocMAVNUAMCL7608-02-30 09:45:00 Test Item Value Reference Range Interpretation Comments Globulin (test code = Globulin) 2.6 2.0-4.0 N [facility] CenterWrpdbutYLNCNVIJA5032-27-28 09:45:00 Test Item Value Reference Range Interpretation Comments AGAP (test code = AGAP) 16.2 10.0-20.0 N [facility] CenterRrmmxhbZEBIPFBZR2725-51-53 09:45:00 Test Item Value Reference Range Interpretation Comments B/C Ratio (test code = B/C Ratio) 13 6-25 N [facility] CenterEgkgnliAYLQZDCVSL6298-69-22 09:45:00 Test Item Value Reference Range Interpretation Comments Lymphocytes (test code = Lymphocytes) 11.0 20.0-40.0 L [facility] CenterSbsgzqrEFHODQLWDZ5464-34-15 09:45:00 Test Item Value Reference Range Interpretation Comments Segs (test code = Segs) 86.0 45.0-75.0 H [facility] CenterZyjfuniOSWRPKXRLZ2857-89-40 09:45:00 Test Item Value Reference Range Interpretation Comments Bands (test code = 1.0 See_Comment N [Automat ed message] The Bands) system which ge nerated this result transmit ashanti reference range : <=11.0. The reference r megan was not used to interpr et this result as carmen l/abnormal. [facility] CenterMcsujfqPGEOHKZNNA4228-79-03 09:45:00 Test Item Value Reference Range Interpretation Comments Lymphocytes # (test code = Lymphocytes 1.6 1.0-5.5 N #) [facility] CenterJxlsbxnHTTLVBBIEP9526-78-59 09:45:00 Test Item Value Reference Range Interpretation Comments Monocytes # (test code 0.0 See_Comment N [Aut omated message] The = Monocytes #) system which generated this result tra nsmitted reference range : <=0.8. The reference r megan was not used to int erpret this result as normal/abnormal . [facility] CenterTngqxuhCNONCPHAKY8177-64-82 09:45:00 Test Item Value Reference Range Interpretation Comments Segs-Bands # (test code = Segs-Bands #) 13.0 1.5-8.1 H [facility] CenterSlesbftUTGEANHHRD3921-78-75 09:45:00 Test Item Value Reference Range Interpretation Comments Plt Morph (test code = Normal (12/11/2012 N Plt Morph) 03:45:00) [facility] CenterUewahqjNQHWNMXYXW5177-69-75 09:45:00 Test Item Value Reference Range Interpretation Comments Hypochrom (test code = Slight (12/11/2012 N Hypochrom) 03:45:00) [facility] CenterSygakueMVVFKFQGCB6489-49-44 09:45:00 Test Item Value Reference Range Interpretation Comments Myelocytes (test code = Myelocytes) 1.0 H [facility] CenterUifrtofOBMFEKGHXM9449-69-72 09:45:00 Test Item Value Reference Range Interpretation Comments Atypical Lymphs (test code = Atypical 0.0 N Lymphs) [facility] CenterZbquboiIZLRPJPMDH5705-73-09 09:45:00 Test Item Value Reference Range Interpretation Comments Monocytes (test code = Monocytes) 0.0 2.0-12.0 L [facility] CenterFadlirrKCGIDVBIML7235-25-00 09:45:00 Test Item Value Reference Range Interpretation Comments Metamyelocytes (test code 1.0 See_Comment N [ Automated message] = Metamyelocytes) The system which generated this result transmitted ref erence range: <=1.0. T he reference range was not used to int erpret this result as normal/abnormal . [facility] CenterHsdkrswDZLTHSISXG1159-84-32 09:45:00 Test Item Value Reference Range Interpretation Comments RDW (test code = RDW) 16.2 11.5-14.5 H [facility] CenterVitvgmjZZBIEQPCER6010-30-98 09:45:00 Test Item Value Reference Range Interpretation Comments Platelet (test code = Platelet) 268 133-450 N [facility] CenterTmgiornQYJUNOMZEG4976-72-70 09:45:00 Test Item Value Reference Range Interpretation Comments MPV (test code = MPV) 9.0 7.4-10.4 N [facility] CenterKjrkogvZCLZEBRDFB6138-49-95 09:45:00 Test Item Value Reference Range Interpretation Comments MCV (test code = MCV) 81.2 81.0-99.0 N [facility] CenterNolqudgDIZKCVCRJM3073-62-41 09:45:00 Test Item Value Reference Range Interpretation Comments MCH (test code = MCH) 25.7 pg 27.0-31.0 L [facility] CenterUmtxybrGRDHBRZIFV7646-28-49 09:45:00 Test Item Value Reference Range Interpretation Comments MCHC (test code = MCHC) 31.6 32.0-36.0 L [facility] CenterDfsbssbTRVANVREBN9496-75-28 09:45:00 Test Item Value Reference Range Interpretation Comments WBC (test code = WBC) 15.0 3.7-10.4 H [facility] CenterWqdfuuvXKMSDMGCQX3606-71-85 09:45:00 Test Item Value Reference Range Interpretation Comments Hct (test code = Hct) 31.9 36.0-48.0 L [facility] CenterPmsoouwGRCBQBBBCL0727-80-60 09:45:00 Test Item Value Reference Range Interpretation Comments Hgb (test code = Hgb) 10.1 12.0-16.0 L [facility] CenterLtrtwdsRESNHPQZVK2278-84-06 09:45:00 Test Item Value Reference Range Interpretation Comments RBC (test code = RBC) 3.93 4.20-5.40 L [facility] CenterAbprnuxJYAWCJIQM3583-45-66 09:45:00 Test Item Value Reference Range Interpretation Comments AST (test code = AST) 31 See_Comment N [Auto mated message] The system which ge nerated this result transmit ashanti reference range : <=37. The reference range was not used to interpr et this result as carmen l/abnormal. [facility] CenterMmuutuxRHBOLGHUI6357-94-77 09:45:00 Test Item Value Reference Range Interpretation Comments Bili Total (test code = Bili Total) 0.4 0.2-1.3 N [facility] CenterRlbsukfMEHPYZGIK5976-81-44 09:45:00 Test Item Value Reference Range Interpretation Comments Alk Phos (test code = Alk Phos) 57 39-136 N [facility] CenterWqsihvgUKPZJDSYC7365-25-96 09:45:00 Test Item Value Reference Range Interpretation Comments ALT (test code = ALT) 35 See_Comment N [Auto mated message] The system which ge nerated this result transmit ashanti reference range : <=65. The reference range was not used to interpr et this result as carmen l/abnormal. [facility] CenterTxjhyanLAKJDLNUA6355-41-50 09:45:00 Test Item Value Reference Range Interpretation Comments Total Protein (test code = Total 5.9 6.4-8.4 L Protein) [facility] CenterXtfmwcaDNHAAOCMD5073-16-05 09:45:00 Test Item Value Reference Range Interpretation Comments eGFR (test code = eGFR) 121 [facility] CenterNklbszdFYCELUULA3076-56-97 09:45:00 Test Item Value Reference Range Interpretation Comments Calcium Lvl (test code = Calcium Lvl) 8.1 8.5-10.5 L [facility] CenterQmklkmnTIAOABMLX3118-71-52 09:45:00 Test Item Value Reference Range Interpretation Comments Albumin Lvl (test code = Albumin Lvl) 3.3 3.5-5.0 L [facility] CenterGprtptuHEPNKDLZI3513-15-33 09:45:00 Test Item Value Reference Range Interpretation Comments Chloride Lvl (test code = Chloride Lvl) 104 95-109 N [facility] CenterKjvkoaoKGDVFOVUC4712-33-40 09:45:00 Test Item Value Reference Range Interpretation Comments CO2 (test code = CO2) 24 24-32 N [facility] CenterPohtotdZOOTKEIRY9843-02-11 09:45:00 Test Item Value Reference Range Interpretation Comments Sodium Lvl (test code = Sodium Lvl) 140 135-145 N [facility] CenterVbfewmdZCQMOJKSP7654-77-46 09:45:00 Test Item Value Reference Range Interpretation Comments Potassium Lvl (test code = Potassium 4.2 3.5-5.1 N Lvl) [facility] CenterHgcrfgeMSTCGAUVW7666-55-64 09:45:00 Test Item Value Reference Range Interpretation Comments BUN (test code = BUN) 8 7-22 N [facility] CenterFtncshmPPHLLXJPY9308-62-86 09:45:00 Test Item Value Reference Range Interpretation Comments Creatinine Lvl (test code = Creatinine 0.6 0.5-1.4 N Lvl) [facility] CenterBhpmapmMIJGOASKD5285-55-64 09:45:00 Test Item Value Reference Range Interpretation Comments Glucose Lvl (test code = Glucose Lvl) 87 70-99 N [facility] CenterZivkinwPYKNMKTTX1888-25-79 09:45:00 Test Item Value Reference Range Interpretation Comments A/G Ratio (test code = A/G Ratio) 1.3 0.7-1.6 N [facility] CenterFphafqaHIVQNUVHC4489-18-10 09:45:00 Test Item Value Reference Range Interpretation Comments Globulin (test code = Globulin) 2.6 2.0-4.0 N [facility] CenterXpkcrbpIEEBIKOHP3647-16-18 09:45:00 Test Item Value Reference Range Interpretation Comments AGAP (test code = AGAP) 16.2 10.0-20.0 N [facility] CenterBfwqohlTXGMFFMWZ9293-89-53 09:45:00 Test Item Value Reference Range Interpretation Comments B/C Ratio (test code = B/C Ratio) 13 6-25 N [facility] CenterGejezuzAYUTYDTLXT2377-91-41 09:45:00 Test Item Value Reference Range Interpretation Comments Lymphocytes (test code = Lymphocytes) 11.0 20.0-40.0 L [facility] CenterBxfjueqHBENFKWWUX2533-23-92 09:45:00 Test Item Value Reference Range Interpretation Comments Segs (test code = Segs) 86.0 45.0-75.0 H [facility] CenterXjknnasMECCLRSYNI9056-59-68 09:45:00 Test Item Value Reference Range Interpretation Comments Bands (test code = 1.0 See_Comment N [Automat ed message] The Bands) system which ge nerated this result transmit ashanti reference range : <=11.0. The reference r megan was not used to interpr et this result as carmen l/abnormal. [facility] CenterDuchbnyXHUGMMTHJQ7548-29-92 09:45:00 Test Item Value Reference Range Interpretation Comments Lymphocytes # (test code = Lymphocytes 1.6 1.0-5.5 N #) [facility] CenterBamhainGTXOQTQONU3089-30-81 09:45:00 Test Item Value Reference Range Interpretation Comments Monocytes # (test code 0.0 See_Comment N [Aut omated message] The = Monocytes #) system which generated this result tra nsmitted reference range : <=0.8. The reference r megan was not used to int erpret this result as normal/abnormal . [facility] CenterHwycfovCJKIXAAUHO8489-20-16 09:45:00 Test Item Value Reference Range Interpretation Comments Segs-Bands # (test code = Segs-Bands #) 13.0 1.5-8.1 H [facility] CenterGfskpnqVSNLRKORRE9151-48-62 09:45:00 Test Item Value Reference Range Interpretation Comments Plt Morph (test code = Normal (12/11/2012 N Plt Morph) 03:45:00) [facility] CenterBvaqnkxDVWBAPKIGN4688-97-62 09:45:00 Test Item Value Reference Range Interpretation Comments Hypochrom (test code = Slight (12/11/2012 N Hypochrom) 03:45:00) [facility] CenterUorqdzfVCHEONPGGJ2065-59-70 09:45:00 Test Item Value Reference Range Interpretation Comments Myelocytes (test code = Myelocytes) 1.0 H [facility] CenterAzfauzeLWNDMPCZNB2322-11-00 09:45:00 Test Item Value Reference Range Interpretation Comments Atypical Lymphs (test code = Atypical 0.0 N Lymphs) [facility] CenterDxslzxpAROWMPQFJD7492-04-51 09:45:00 Test Item Value Reference Range Interpretation Comments Monocytes (test code = Monocytes) 0.0 2.0-12.0 L [facility] CenterNkndhprGNPKJDMZMC3655-52-33 09:45:00 Test Item Value Reference Range Interpretation Comments Metamyelocytes (test code 1.0 See_Comment N [ Automated message] = Metamyelocytes) The system which generated this result transmitted ref erence range: <=1.0. T he reference range was not used to int erpret this result as normal/abnormal . [facility] CenterFehrabwJXPFUIWUOJ1864-70-44 09:45:00 Test Item Value Reference Range Interpretation Comments RDW (test code = RDW) 16.2 11.5-14.5 H [facility] CenterSneopcjDVGSFVPEOZ2192-23-84 09:45:00 Test Item Value Reference Range Interpretation Comments Platelet (test code = Platelet) 268 133-450 N [facility] CenterVydvntuHQVJHVXSMV3329-08-68 09:45:00 Test Item Value Reference Range Interpretation Comments MPV (test code = MPV) 9.0 7.4-10.4 N [facility] CenterJkfozkbAZPBHBWDTO8309-39-98 09:45:00 Test Item Value Reference Range Interpretation Comments MCV (test code = MCV) 81.2 81.0-99.0 N [facility] CenterCljtdjsXXHEBGYUES1928-25-24 09:45:00 Test Item Value Reference Range Interpretation Comments MCH (test code = MCH) 25.7 pg 27.0-31.0 L [facility] CenterWpdmmxsJBOQDOZYDH3541-68-32 09:45:00 Test Item Value Reference Range Interpretation Comments MCHC (test code = MCHC) 31.6 32.0-36.0 L [facility] CenterCzyjexkHSNULBZFEY7068-31-33 09:45:00 Test Item Value Reference Range Interpretation Comments WBC (test code = WBC) 15.0 3.7-10.4 H [facility] CenterGbqycrgBJJPRQPBCX4761-17-87 09:45:00 Test Item Value Reference Range Interpretation Comments Hct (test code = Hct) 31.9 36.0-48.0 L [facility] CenterXugofhwUTFEKPSRAJ6944-73-50 09:45:00 Test Item Value Reference Range Interpretation Comments Hgb (test code = Hgb) 10.1 12.0-16.0 L [facility] CenterIclwndzOZALKZUGMG3315-74-93 09:45:00 Test Item Value Reference Range Interpretation Comments RBC (test code = RBC) 3.93 4.20-5.40 L [facility] CenterMptomcvWQLSZIKUH1436-44-70 09:45:00 Test Item Value Reference Range Interpretation Comments AST (test code = AST) 31 See_Comment N [Auto mated message] The system which ge nerated this result transmit ashanti reference range : <=37. The reference range was not used to interpr et this result as carmen l/abnormal. [facility] CenterVwlcahlFSVTOGZFQ3224-51-47 09:45:00 Test Item Value Reference Range Interpretation Comments Bili Total (test code = Bili Total) 0.4 0.2-1.3 N [facility] CenterNlmmsukAIPKCIQNH3999-02-53 09:45:00 Test Item Value Reference Range Interpretation Comments Alk Phos (test code = Alk Phos) 57 39-136 N [facility] CenterAjaxmeoTBIIMGEFS5193-50-20 09:45:00 Test Item Value Reference Range Interpretation Comments ALT (test code = ALT) 35 See_Comment N [Auto mated message] The system which ge nerated this result transmit ashanti reference range : <=65. The reference range was not used to interpr et this result as carmen l/abnormal. [facility]JxypdvyZFSJCUHTZ1217-99-21 09:45:00 Test Item Value Reference Range Interpretation Comments Total Protein (test code = Total 5.9 6.4-8.4 L Protein) [facility] CenterBssgrxqPVFVDBHZM2429-84-55 09:45:00 Test Item Value Reference Range Interpretation Comments eGFR (test code = eGFR) 121 [facility] CenterBqlkyruYZLWFQFZD6336-18-18 09:45:00 Test Item Value Reference Range Interpretation Comments Calcium Lvl (test code = Calcium Lvl) 8.1 8.5-10.5 L [facility] CenterVbjcfdaYEGZRPOVR5321-36-27 09:45:00 Test Item Value Reference Range Interpretation Comments Albumin Lvl (test code = Albumin Lvl) 3.3 3.5-5.0 L [facility] CenterYkqrlkxDTNAYKTDD4914-29-85 09:45:00 Test Item Value Reference Range Interpretation Comments Chloride Lvl (test code = Chloride Lvl) 104 95-109 N [facility] CenterFtwzbtqYWAUFIRCF6885-57-72 09:45:00 Test Item Value Reference Range Interpretation Comments CO2 (test code = CO2) 24 24-32 N [facility] CenterApjufhsZFYDPDMIQ4439-13-29 09:45:00 Test Item Value Reference Range Interpretation Comments Sodium Lvl (test code = Sodium Lvl) 140 135-145 N [facility] CenterOselostFEEHJJIKE7669-72-81 09:45:00 Test Item Value Reference Range Interpretation Comments Potassium Lvl (test code = Potassium 4.2 3.5-5.1 N Lvl) [facility] CenterZgxututJPDOQPOKY8820-23-58 09:45:00 Test Item Value Reference Range Interpretation Comments BUN (test code = BUN) 8 7-22 N [facility] CenterXvigftrIBBQBGLPT5454-18-25 09:45:00 Test Item Value Reference Range Interpretation Comments Creatinine Lvl (test code = Creatinine 0.6 0.5-1.4 N Lvl) [facility] CenterWigcjzjZASHKNTYH0044-23-20 09:45:00 Test Item Value Reference Range Interpretation Comments Glucose Lvl (test code = Glucose Lvl) 87 70-99 N [facility] CenterMcykznlLBPXZINGT3271-95-55 09:45:00 Test Item Value Reference Range Interpretation Comments A/G Ratio (test code = A/G Ratio) 1.3 0.7-1.6 N [facility] CenterXnqqpatXGNLTHMKX6602-78-20 09:45:00 Test Item Value Reference Range Interpretation Comments Globulin (test code = Globulin) 2.6 2.0-4.0 N [facility] CenterDbalmdgLPAQSCHSQ5320-41-72 09:45:00 Test Item Value Reference Range Interpretation Comments AGAP (test code = AGAP) 16.2 10.0-20.0 N [facility] CenterVwmxjcaUQKRWSLUH8358-37-90 09:45:00 Test Item Value Reference Range Interpretation Comments B/C Ratio (test code = B/C Ratio) 13 6-25 N [facility]MnsyfhpSBNYWMILFJ0258-48-38 09:45:00 Test Item Value Reference Range Interpretation Comments Lymphocytes (test code = Lymphocytes) 11.0 20.0-40.0 L [facility] CenterQdoaacjOSCLEIVNNT5822-32-29 09:45:00 Test Item Value Reference Range Interpretation Comments Segs (test code = Segs) 86.0 45.0-75.0 H [facility] CenterJsbthryGJYWELPWKW5366-32-34 09:45:00 Test Item Value Reference Range Interpretation Comments Bands (test code = 1.0 See_Comment N [Automat ed message] The Bands) system which ge nerated this result transmit ashanti reference range : <=11.0. The reference r megan was not used to interpr et this result as carmen l/abnormal. [facility] CenterXgnpbbgRJOJOSRHRV7722-67-36 09:45:00 Test Item Value Reference Range Interpretation Comments Lymphocytes # (test code = Lymphocytes 1.6 1.0-5.5 N #) [facility] CenterYfehaxhNGTARLIBOA0142-43-04 09:45:00 Test Item Value Reference Range Interpretation Comments Monocytes # (test code 0.0 See_Comment N [Aut omated message] The = Monocytes #) system which generated this result tra nsmitted reference range : <=0.8. The reference r megan was not used to int erpret this result as normal/abnormal . [facility] CenterZctjnlvPJXVFORPGN1870-13-84 09:45:00 Test Item Value Reference Range Interpretation Comments Segs-Bands # (test code = Segs-Bands #) 13.0 1.5-8.1 H [facility] CenterVmwptunJTIXLZCCAP4955-18-79 09:45:00 Test Item Value Reference Range Interpretation Comments Plt Morph (test code = Normal (12/11/2012 N Plt Morph) 03:45:00) [facility] CenterStmzimbGIPXMQDZSJ1102-51-13 09:45:00 Test Item Value Reference Range Interpretation Comments Hypochrom (test code = Slight (12/11/2012 N Hypochrom) 03:45:00) [facility] CenterZkklwouIJJKSVXSPA5030-65-02 09:45:00 Test Item Value Reference Range Interpretation Comments Myelocytes (test code = Myelocytes) 1.0 H [facility] CenterUnxctkfTDKYRWQLTU4095-72-45 09:45:00 Test Item Value Reference Range Interpretation Comments Atypical Lymphs (test code = Atypical 0.0 N Lymphs) [facility] CenterJlfqnnrITNUTDQSGQ5196-02-60 09:45:00 Test Item Value Reference Range Interpretation Comments Monocytes (test code = Monocytes) 0.0 2.0-12.0 L [facility] CenterQjviirrAOAXIAWUSF3720-85-38 09:45:00 Test Item Value Reference Range Interpretation Comments Metamyelocytes (test code 1.0 See_Comment N [ Automated message] = Metamyelocytes) The system which generated this result transmitted ref erence range: <=1.0. T he reference range was not used to int erpret this result as normal/abnormal . [facility] CenterZxarbqzDFGKRHLZIA0997-54-61 09:45:00 Test Item Value Reference Range Interpretation Comments RDW (test code = RDW) 16.2 11.5-14.5 H [facility] CenterZwlicwbKXRUFHQTMS5942-23-28 09:45:00 Test Item Value Reference Range Interpretation Comments Platelet (test code = Platelet) 268 133-450 N [facility] CenterQdatkmvNOACXSJPYN1904-92-17 09:45:00 Test Item Value Reference Range Interpretation Comments MPV (test code = MPV) 9.0 7.4-10.4 N [facility] CenterUxnranmYPVHVNGTAD3053-06-07 09:45:00 Test Item Value Reference Range Interpretation Comments MCV (test code = MCV) 81.2 81.0-99.0 N [facility] CenterVrnyoxgXIBUEPOQBS4888-45-84 09:45:00 Test Item Value Reference Range Interpretation Comments MCH (test code = MCH) 25.7 pg 27.0-31.0 L [facility] CenterZadobvwEEMGVSNYEL2340-08-58 09:45:00 Test Item Value Reference Range Interpretation Comments MCHC (test code = MCHC) 31.6 32.0-36.0 L [facility] CenterMffezahRQPMBCASJB1752-43-39 09:45:00 Test Item Value Reference Range Interpretation Comments WBC (test code = WBC) 15.0 3.7-10.4 H [facility] CenterTgnzdkiHPGDDRLMMI3287-28-63 09:45:00 Test Item Value Reference Range Interpretation Comments Hct (test code = Hct) 31.9 36.0-48.0 L [facility] CenterZaxrmssHJNJSGENFV9567-19-03 09:45:00 Test Item Value Reference Range Interpretation Comments Hgb (test code = Hgb) 10.1 12.0-16.0 L [facility] CenterLxlefrtGZBKTWEMSW9057-16-31 09:45:00 Test Item Value Reference Range Interpretation Comments RBC (test code = RBC) 3.93 4.20-5.40 L [facility] CenterNgknqehYYWVAQKHI2158-12-38 09:45:00 Test Item Value Reference Range Interpretation Comments AST (test code = AST) 31 See_Comment N [Auto mated message] The system which ge nerated this result transmit ashanti reference range : <=37. The reference range was not used to interpr et this result as carmen l/abnormal. [facility] CenterLmxbqnbFZZOUKOZF6501-07-47 09:45:00 Test Item Value Reference Range Interpretation Comments Bili Total (test code = Bili Total) 0.4 0.2-1.3 N [facility] CenterMguacktDYLRHJFKL8533-96-84 09:45:00 Test Item Value Reference Range Interpretation Comments Alk Phos (test code = Alk Phos) 57 39-136 N [facility] CenterZxnfiqtNZVJYLIJL2459-52-99 09:45:00 Test Item Value Reference Range Interpretation Comments ALT (test code = ALT) 35 See_Comment N [Auto mated message] The system which ge nerated this result transmit ashanti reference range : <=65. The reference range was not used to interpr et this result as carmen l/abnormal. [facility] CenterSaiqhzfQABVRPYTW1148-04-46 09:45:00 Test Item Value Reference Range Interpretation Comments Total Protein (test code = Total 5.9 6.4-8.4 L Protein) [facility] CenterZmkmndqPIPWMJHCQ5244-70-19 09:45:00 Test Item Value Reference Range Interpretation Comments eGFR (test code = eGFR) 121 [facility] CenterPwltlkpYVHCGRTQM5255-82-69 09:45:00 Test Item Value Reference Range Interpretation Comments Calcium Lvl (test code = Calcium Lvl) 8.1 8.5-10.5 L [facility] CenterAuqdjjiNGKXCXEHL2666-24-28 09:45:00 Test Item Value Reference Range Interpretation Comments Albumin Lvl (test code = Albumin Lvl) 3.3 3.5-5.0 L [facility] CenterTvudayzHRYHLZLTE5308-07-20 09:45:00 Test Item Value Reference Range Interpretation Comments Chloride Lvl (test code = Chloride Lvl) 104 95-109 N [facility] CenterZtnusogIAAEIIBER8580-92-56 09:45:00 Test Item Value Reference Range Interpretation Comments CO2 (test code = CO2) 24 24-32 N [facility] CenterJmzzezkHFPLJCZGJ1956-03-24 09:45:00 Test Item Value Reference Range Interpretation Comments Sodium Lvl (test code = Sodium Lvl) 140 135-145 N [facility] CenterSofxdkoPDBDWKPQQ9906-38-75 09:45:00 Test Item Value Reference Range Interpretation Comments Potassium Lvl (test code = Potassium 4.2 3.5-5.1 N Lvl) [facility] CenterJlppjghLFUYYNFXT9643-36-09 09:45:00 Test Item Value Reference Range Interpretation Comments BUN (test code = BUN) 8 7-22 N [facility] CenterIqtxwpuKTDIVBFKN3703-98-51 09:45:00 Test Item Value Reference Range Interpretation Comments Creatinine Lvl (test code = Creatinine 0.6 0.5-1.4 N Lvl) [facility] CenterSjslnmgSWQIFUWLT2561-29-00 09:45:00 Test Item Value Reference Range Interpretation Comments Glucose Lvl (test code = Glucose Lvl) 87 70-99 N [facility] CenterRshkoplOBVZKVLEE3665-20-05 09:45:00 Test Item Value Reference Range Interpretation Comments A/G Ratio (test code = A/G Ratio) 1.3 0.7-1.6 N [facility] CenterOivxxceGDDOPIPBP2070-23-43 09:45:00 Test Item Value Reference Range Interpretation Comments Globulin (test code = Globulin) 2.6 2.0-4.0 N [facility] CenterIyqghrhFZBBSDCSS6203-42-72 09:45:00 Test Item Value Reference Range Interpretation Comments AGAP (test code = AGAP) 16.2 10.0-20.0 N [facility] CenterUezmzzrCZEPPEJHC7632-90-52 09:45:00 Test Item Value Reference Range Interpretation Comments B/C Ratio (test code = B/C Ratio) 13 6-25 N [facility] CenterGrxrfbxNVPTSQJNXX2024-26-38 09:45:00 Test Item Value Reference Range Interpretation Comments Lymphocytes (test code = Lymphocytes) 11.0 20.0-40.0 L [facility] CenterHhhkhyuVIFRNPZWLZ1272-06-53 09:45:00 Test Item Value Reference Range Interpretation Comments Segs (test code = Segs) 86.0 45.0-75.0 H [facility] CenterUlaukvaZWMQQOMVCS2803-37-74 09:45:00 Test Item Value Reference Range Interpretation Comments Bands (test code = 1.0 See_Comment N [Automat ed message] The Bands) system which ge nerated this result transmit ashanti reference range : <=11.0. The reference r megan was not used to interpr et this result as carmen l/abnormal. [facility] CenterZgwufxmUKAGDFANUW6411-27-33 09:45:00 Test Item Value Reference Range Interpretation Comments Lymphocytes # (test code = Lymphocytes 1.6 1.0-5.5 N #) [facility] CenterZokfpirBNIWLKJHKL9579-54-67 09:45:00 Test Item Value Reference Range Interpretation Comments Monocytes # (test code 0.0 See_Comment N [Aut omated message] The = Monocytes #) system which generated this result tra nsmitted reference range : <=0.8. The reference r megan was not used to int erpret this result as normal/abnormal . [facility] CenterNwvdmigADCVTCIKLL5716-18-13 09:45:00 Test Item Value Reference Range Interpretation Comments Segs-Bands # (test code = Segs-Bands #) 13.0 1.5-8.1 H [facility] CenterAunjhybTQIIBOLCDM4388-05-26 09:45:00 Test Item Value Reference Range Interpretation Comments Plt Morph (test code = Normal (12/11/2012 N Plt Morph) 03:45:00) [facility] CenterIcladocYNJWTXWUNS7832-66-15 09:45:00 Test Item Value Reference Range Interpretation Comments Hypochrom (test code = Slight (12/11/2012 N Hypochrom) 03:45:00) [facility] CenterSuxuvegEVFHKXDXPT1203-83-29 09:45:00 Test Item Value Reference Range Interpretation Comments Myelocytes (test code = Myelocytes) 1.0 H [facility] CenterYslvtxoEHVRQFHDZA6806-83-20 09:45:00 Test Item Value Reference Range Interpretation Comments Atypical Lymphs (test code = Atypical 0.0 N Lymphs) [facility] CenterKcktoyzADOVYCGCOA2482-56-37 09:45:00 Test Item Value Reference Range Interpretation Comments Monocytes (test code = Monocytes) 0.0 2.0-12.0 L [facility] CenterTbdizazDONAUPGRVY4856-88-23 09:45:00 Test Item Value Reference Range Interpretation Comments Metamyelocytes (test code 1.0 See_Comment N [ Automated message] = Metamyelocytes) The system which generated this result transmitted ref erence range: <=1.0. T he reference range was not used to int erpret this result as normal/abnormal . [facility] CenterBgvyhwxUQGAQNDPQB9433-00-75 09:45:00 Test Item Value Reference Range Interpretation Comments RDW (test code = RDW) 16.2 11.5-14.5 H [facility] CenterLnzapcyZSSGJGTYOL2573-96-33 09:45:00 Test Item Value Reference Range Interpretation Comments Platelet (test code = Platelet) 268 133-450 N [facility] CenterBggcsoxOZZASSBVYU1735-47-74 09:45:00 Test Item Value Reference Range Interpretation Comments MPV (test code = MPV) 9.0 7.4-10.4 N [facility] CenterJefddmsFGYKQGHZSF3342-71-45 09:45:00 Test Item Value Reference Range Interpretation Comments MCV (test code = MCV) 81.2 81.0-99.0 N [facility] CenterRulqhprBZLLIRUCXG6436-52-21 09:45:00 Test Item Value Reference Range Interpretation Comments MCH (test code = MCH) 25.7 pg 27.0-31.0 L [facility] CenterZpyjtpmTJXMNIAVFL5948-90-11 09:45:00 Test Item Value Reference Range Interpretation Comments MCHC (test code = MCHC) 31.6 32.0-36.0 L [facility] CenterMobizlnEALCPYMJAE9037-99-00 09:45:00 Test Item Value Reference Range Interpretation Comments WBC (test code = WBC) 15.0 3.7-10.4 H [facility] CenterClpqdodQHTUBEYEGQ8007-09-58 09:45:00 Test Item Value Reference Range Interpretation Comments Hct (test code = Hct) 31.9 36.0-48.0 L [facility] CenterUqfpwptAJDJBTKTZP0487-69-68 09:45:00 Test Item Value Reference Range Interpretation Comments Hgb (test code = Hgb) 10.1 12.0-16.0 L [facility] CenterHweupjaDSCVHLPYYC2339-33-73 09:45:00 Test Item Value Reference Range Interpretation Comments RBC (test code = RBC) 3.93 4.20-5.40 L [facility] CenterWfllghcIDLGZOGUL4738-50-39 09:45:00 Test Item Value Reference Range Interpretation Comments AST (test code = AST) 31 See_Comment N [Auto mated message] The system which ge nerated this result transmit ashanti reference range : <=37. The reference range was not used to interpr et this result as carmen l/abnormal. [facility] CenterDaqzfqaKDSDTGXUR8409-50-15 09:45:00 Test Item Value Reference Range Interpretation Comments Bili Total (test code = Bili Total) 0.4 0.2-1.3 N [facility] CenterJheghybTDUWJCNIC2993-68-37 09:45:00 Test Item Value Reference Range Interpretation Comments Alk Phos (test code = Alk Phos) 57 39-136 N [facility] CenterCyopwyxPOMKGMUVC3951-96-24 09:45:00 Test Item Value Reference Range Interpretation Comments ALT (test code = ALT) 35 See_Comment N [Auto mated message] The system which ge nerated this result transmit ashanti reference range : <=65. The reference range was not used to interpr et this result as carmen l/abnormal. [facility] CenterCqtkcvmQEKHQTDZF5546-71-28 09:45:00 Test Item Value Reference Range Interpretation Comments Total Protein (test code = Total 5.9 6.4-8.4 L Protein) [facility] CenterLhnacosIFDPPNHFC2911-19-50 09:45:00 Test Item Value Reference Range Interpretation Comments eGFR (test code = eGFR) 121 [facility] CenterEgjgfupDJJRUPDBD5764-15-50 09:45:00 Test Item Value Reference Range Interpretation Comments Calcium Lvl (test code = Calcium Lvl) 8.1 8.5-10.5 L [facility] CenterRouoqetPMJWRKWEX5960-81-74 09:45:00 Test Item Value Reference Range Interpretation Comments Albumin Lvl (test code = Albumin Lvl) 3.3 3.5-5.0 L [facility] CenterGykdojsLTTPFCNVE1331-56-88 09:45:00 Test Item Value Reference Range Interpretation Comments Chloride Lvl (test code = Chloride Lvl) 104 95-109 N [facility] CenterVrjeywtDVEDGSVKX6717-50-46 09:45:00 Test Item Value Reference Range Interpretation Comments CO2 (test code = CO2) 24 24-32 N [facility] CenterWerzqauJQPHTOUTE4242-21-43 09:45:00 Test Item Value Reference Range Interpretation Comments Sodium Lvl (test code = Sodium Lvl) 140 135-145 N [facility] CenterLmrqdunCNOJBVLUU4614-67-68 09:45:00 Test Item Value Reference Range Interpretation Comments Potassium Lvl (test code = Potassium 4.2 3.5-5.1 N Lvl) [facility] CenterDfyqsihCCNQZWJCV5795-08-10 09:45:00 Test Item Value Reference Range Interpretation Comments BUN (test code = BUN) 8 7-22 N [facility] CenterUtikmilCGRHXHKLW6123-75-00 09:45:00 Test Item Value Reference Range Interpretation Comments Creatinine Lvl (test code = Creatinine 0.6 0.5-1.4 N Lvl) [facility] CenterDstmhbjZNOUMBKUG8941-58-08 09:45:00 Test Item Value Reference Range Interpretation Comments Glucose Lvl (test code = Glucose Lvl) 87 70-99 N [facility] CenterVurnfrtGSVGYFWKE3656-98-33 09:45:00 Test Item Value Reference Range Interpretation Comments A/G Ratio (test code = A/G Ratio) 1.3 0.7-1.6 N [facility] CenterVrwklkuYZOEXEUXF7562-49-09 09:45:00 Test Item Value Reference Range Interpretation Comments Globulin (test code = Globulin) 2.6 2.0-4.0 N [facility] CenterPqzpzhoCEONSQJQH8955-77-51 09:45:00 Test Item Value Reference Range Interpretation Comments AGAP (test code = AGAP) 16.2 10.0-20.0 N [facility] CenterXdimsnyWYGGSLDKM9310-38-21 09:45:00 Test Item Value Reference Range Interpretation Comments B/C Ratio (test code = B/C Ratio) 13 6-25 N [facility] CenterMqbfkszFJJLXRLUXK3481-69-50 09:45:00 Test Item Value Reference Range Interpretation Comments Lymphocytes (test code = Lymphocytes) 11.0 20.0-40.0 L [facility] CenterPeokoecPOGOOXTGWM6268-84-94 09:45:00 Test Item Value Reference Range Interpretation Comments Segs (test code = Segs) 86.0 45.0-75.0 H [facility] CenterElmzsszULWKJDEUHA0896-96-62 09:45:00 Test Item Value Reference Range Interpretation Comments Bands (test code = 1.0 See_Comment N [Automat ed message] The Bands) system which ge nerated this result transmit ashanti reference range : <=11.0. The reference r megan was not used to interpr et this result as carmen l/abnormal. [facility] CenterVgfybvzYBLYPGGJPI5246-43-66 09:45:00 Test Item Value Reference Range Interpretation Comments Lymphocytes # (test code = Lymphocytes 1.6 1.0-5.5 N #) [facility] CenterQdqkpxbNHUUAKDOVK3056-28-89 09:45:00 Test Item Value Reference Range Interpretation Comments Monocytes # (test code 0.0 See_Comment N [Aut omated message] The = Monocytes #) system which generated this result tra nsmitted reference range : <=0.8. The reference r megan was not used to int erpret this result as normal/abnormal . [facility] CenterZllknltUVYWVVXPDZ4696-26-23 09:45:00 Test Item Value Reference Range Interpretation Comments Segs-Bands # (test code = Segs-Bands #) 13.0 1.5-8.1 H [facility] CenterLpxyvfiXCOUIPCQBR9555-69-38 09:45:00 Test Item Value Reference Range Interpretation Comments Plt Morph (test code = Normal (12/11/2012 N Plt Morph) 03:45:00) [facility] CenterSzzlopyKXZRTPTZRN4171-33-80 09:45:00 Test Item Value Reference Range Interpretation Comments Hypochrom (test code = Slight (12/11/2012 N Hypochrom) 03:45:00) [facility] CenterGkypvumSUKCEJYSII4363-42-29 09:45:00 Test Item Value Reference Range Interpretation Comments Myelocytes (test code = Myelocytes) 1.0 H [facility] CenterRzkejsiVJRQPNJLZJ5734-00-47 09:45:00 Test Item Value Reference Range Interpretation Comments Atypical Lymphs (test code = Atypical 0.0 N Lymphs) [facility] CenterIzvprmvQYOIPHIRWF0008-71-61 09:45:00 Test Item Value Reference Range Interpretation Comments Monocytes (test code = Monocytes) 0.0 2.0-12.0 L [facility] CenterCqpsmyiOFUCJMPRUH7655-89-62 09:45:00 Test Item Value Reference Range Interpretation Comments Metamyelocytes (test code 1.0 See_Comment N [ Automated message] = Metamyelocytes) The system which generated this result transmitted ref erence range: <=1.0. T he reference range was not used to int erpret this result as normal/abnormal . [facility] CenterBuugmgcONNFKDOBKU5371-62-33 09:45:00 Test Item Value Reference Range Interpretation Comments RDW (test code = RDW) 16.2 11.5-14.5 H [facility] CenterWufzzeuKYGDEHDUFJ7945-51-02 09:45:00 Test Item Value Reference Range Interpretation Comments Platelet (test code = Platelet) 268 133-450 N [facility] CenterWxnwswoCSQAUAOCZG8227-58-84 09:45:00 Test Item Value Reference Range Interpretation Comments MPV (test code = MPV) 9.0 7.4-10.4 N [facility] CenterMxzbzrwTHOQUVDAAU5224-08-49 09:45:00 Test Item Value Reference Range Interpretation Comments MCV (test code = MCV) 81.2 81.0-99.0 N [facility] CenterMzkhwblHJIAQVKVMM5133-81-12 09:45:00 Test Item Value Reference Range Interpretation Comments MCH (test code = MCH) 25.7 pg 27.0-31.0 L [facility] CenterCkxccosZOCHKDTMMJ5279-45-23 09:45:00 Test Item Value Reference Range Interpretation Comments MCHC (test code = MCHC) 31.6 32.0-36.0 L [facility] CenterVqgudjoHHYOMYRTPW8916-66-77 09:45:00 Test Item Value Reference Range Interpretation Comments WBC (test code = WBC) 15.0 3.7-10.4 H [facility] CenterFlmpeslSOUYJQDLCQ3074-50-26 09:45:00 Test Item Value Reference Range Interpretation Comments Hct (test code = Hct) 31.9 36.0-48.0 L [facility] CenterOnvaoilOFOYRYTLPK1373-89-27 09:45:00 Test Item Value Reference Range Interpretation Comments Hgb (test code = Hgb) 10.1 12.0-16.0 L [facility] CenterLfmaiurXFCHPWDSNM6729-31-78 09:45:00 Test Item Value Reference Range Interpretation Comments RBC (test code = RBC) 3.93 4.20-5.40 L [facility] CenterXwdqgwbKRSWIPHSW6455-47-36 09:45:00 Test Item Value Reference Range Interpretation Comments AST (test code = AST) 31 See_Comment N [Auto mated message] The system which ge nerated this result transmit ashanti reference range : <=37. The reference range was not used to interpr et this result as carmen l/abnormal. [facility] CenterZmsshbqLTSXMPZNS7722-03-06 09:45:00 Test Item Value Reference Range Interpretation Comments Bili Total (test code = Bili Total) 0.4 0.2-1.3 N [facility] CenterHoctvjdNXGECPCWR2765-47-91 09:45:00 Test Item Value Reference Range Interpretation Comments Alk Phos (test code = Alk Phos) 57 39-136 N [facility] CenterCmtfxhoQFAPXBMAK8067-79-85 09:45:00 Test Item Value Reference Range Interpretation Comments ALT (test code = ALT) 35 See_Comment N [Auto mated message] The system which ge nerated this result transmit ashanti reference range : <=65. The reference range was not used to interpr et this result as carmen l/abnormal. [facility] CenterBdailpmVBSHOHWVE9642-75-49 09:45:00 Test Item Value Reference Range Interpretation Comments Total Protein (test code = Total 5.9 6.4-8.4 L Protein) [facility] CenterLstfwrxJEIZVLMAO5248-07-42 09:45:00 Test Item Value Reference Range Interpretation Comments eGFR (test code = eGFR) 121 [facility] CenterBjiovssQWXBAICSQ7009-76-59 09:45:00 Test Item Value Reference Range Interpretation Comments Calcium Lvl (test code = Calcium Lvl) 8.1 8.5-10.5 L [facility] CenterJxlmltrJGZJWGNTS0435-02-88 09:45:00 Test Item Value Reference Range Interpretation Comments Albumin Lvl (test code = Albumin Lvl) 3.3 3.5-5.0 L [facility] CenterYqbwtetLIBQLICKG1282-72-37 09:45:00 Test Item Value Reference Range Interpretation Comments Chloride Lvl (test code = Chloride Lvl) 104 95-109 N [facility] CenterTcnqyrhFTBRECMWM6575-70-45 09:45:00 Test Item Value Reference Range Interpretation Comments CO2 (test code = CO2) 24 24-32 N [facility] CenterOiqtdneIQCAPEIRP6902-12-86 09:45:00 Test Item Value Reference Range Interpretation Comments Sodium Lvl (test code = Sodium Lvl) 140 135-145 N [facility] CenterJqakyxeCGAIYBHUF5110-30-39 09:45:00 Test Item Value Reference Range Interpretation Comments Potassium Lvl (test code = Potassium 4.2 3.5-5.1 N Lvl) [facility] CenterTvrqbrjZBVCLZXVK0732-33-62 09:45:00 Test Item Value Reference Range Interpretation Comments BUN (test code = BUN) 8 7-22 N [facility] CenterOjaposiBNYLNOPQR3121-87-60 09:45:00 Test Item Value Reference Range Interpretation Comments AST (test code = AST) 31 See_Comment N [Auto mated message] The system which ge nerated this result transmit ashanti reference range : <=37. The reference range was not used to interpr et this result as carmen l/abnormal. [facility] CenterTagapecSMABKZLMM2031-43-62 09:45:00 Test Item Value Reference Range Interpretation Comments Creatinine Lvl (test code = Creatinine 0.6 0.5-1.4 N Lvl) [facility] CenterQhxpuafLPDTCCTAF9290-68-50 09:45:00 Test Item Value Reference Range Interpretation Comments Glucose Lvl (test code = Glucose Lvl) 87 70-99 N [facility] CenterWtmfcalXFMFOYDYU0255-89-89 09:45:00 Test Item Value Reference Range Interpretation Comments A/G Ratio (test code = A/G Ratio) 1.3 0.7-1.6 N [facility] CenterEwgoyhdSXMEQZSAC3682-47-75 09:45:00 Test Item Value Reference Range Interpretation Comments Globulin (test code = Globulin) 2.6 2.0-4.0 N [facility] CenterFgvfubmAQTYDHJGF4135-90-88 09:45:00 Test Item Value Reference Range Interpretation Comments AGAP (test code = AGAP) 16.2 10.0-20.0 N [facility] CenterUizxeffLMMAAUDKC8345-60-58 09:45:00 Test Item Value Reference Range Interpretation Comments B/C Ratio (test code = B/C Ratio) 13 6-25 N [facility] CenterSpisgisKXIGERXSKA2512-64-69 09:45:00 Test Item Value Reference Range Interpretation Comments Lymphocytes (test code = Lymphocytes) 11.0 20.0-40.0 L [facility] CenterMhxzxlfNLLFXLOZYD1214-33-32 09:45:00 Test Item Value Reference Range Interpretation Comments Segs (test code = Segs) 86.0 45.0-75.0 H [facility] CenterFknrqtqKENDFYSXWW0385-30-46 09:45:00 Test Item Value Reference Range Interpretation Comments Bands (test code = 1.0 See_Comment N [Automat ed message] The Bands) system which ge nerated this result transmit ashanti reference range : <=11.0. The reference r megan was not used to interpr et this result as carmen l/abnormal. [facility] CenterWjtzsxlIDFYJBZEMP2332-36-83 09:45:00 Test Item Value Reference Range Interpretation Comments Lymphocytes # (test code = Lymphocytes 1.6 1.0-5.5 N #) [facility] CenterMktetkmDWPQPACEH1342-95-52 09:45:00 Test Item Value Reference Range Interpretation Comments Bili Total (test code = Bili Total) 0.4 0.2-1.3 N [facility] CenterEcrxmcdQIPJPKQMGG9986-96-01 09:45:00 Test Item Value Reference Range Interpretation Comments Monocytes # (test code 0.0 See_Comment N [Aut omated message] The = Monocytes #) system which generated this result tra nsmitted reference range : <=0.8. The reference r megan was not used to int erpret this result as normal/abnormal . [facility] CenterMlyfiaoZEJYRLNLDG9764-72-58 09:45:00 Test Item Value Reference Range Interpretation Comments Segs-Bands # (test code = Segs-Bands #) 13.0 1.5-8.1 H [facility] CenterRimtmptFRJGRTGOKF0132-78-28 09:45:00 Test Item Value Reference Range Interpretation Comments Plt Morph (test code = Normal (12/11/2012 N Plt Morph) 03:45:00) [facility] CenterPyjnvrdYPQURNJQOZ7243-62-28 09:45:00 Test Item Value Reference Range Interpretation Comments Hypochrom (test code = Slight (12/11/2012 N Hypochrom) 03:45:00) [facility] CenterSclkaphCNXKFMXBTW9644-74-86 09:45:00 Test Item Value Reference Range Interpretation Comments Myelocytes (test code = Myelocytes) 1.0 H [facility] CenterDetbdnsILSKCBLSMG0132-55-43 09:45:00 Test Item Value Reference Range Interpretation Comments Atypical Lymphs (test code = Atypical 0.0 N Lymphs) [facility] CenterPyvjagrNOFVMSWVCV2495-86-62 09:45:00 Test Item Value Reference Range Interpretation Comments Monocytes (test code = Monocytes) 0.0 2.0-12.0 L [facility] CenterNsosokhZCVXQSHTUU6704-89-71 09:45:00 Test Item Value Reference Range Interpretation Comments Metamyelocytes (test code 1.0 See_Comment N [ Automated message] = Metamyelocytes) The system which generated this result transmitted ref erence range: <=1.0. T he reference range was not used to int erpret this result as normal/abnormal . [facility] CenterHzuhybrRGFFPAOSKE8393-43-11 09:45:00 Test Item Value Reference Range Interpretation Comments RDW (test code = RDW) 16.2 11.5-14.5 H [facility] CenterClektdmOUNOMSBMBV2685-02-52 09:45:00 Test Item Value Reference Range Interpretation Comments Platelet (test code = Platelet) 268 133-450 N [facility] CenterAlctovnGAUYDQIFB2330-17-82 09:45:00 Test Item Value Reference Range Interpretation Comments Alk Phos (test code = Alk Phos) 57 39-136 N [facility] CenterDqlzvggMGTDKIXPZP0315-71-73 09:45:00 Test Item Value Reference Range Interpretation Comments MPV (test code = MPV) 9.0 7.4-10.4 N [facility] CenterZoogmewPVFAYXBNHY0636-32-20 09:45:00 Test Item Value Reference Range Interpretation Comments MCV (test code = MCV) 81.2 81.0-99.0 N [facility] CenterUzuablnKRLIFLTQGE9620-47-83 09:45:00 Test Item Value Reference Range Interpretation Comments MCH (test code = MCH) 25.7 pg 27.0-31.0 L [facility] CenterMtedwhiABVOTXFBYP7827-54-23 09:45:00 Test Item Value Reference Range Interpretation Comments MCHC (test code = MCHC) 31.6 32.0-36.0 L [facility] CenterXhccmbjOQYYQEWOSP1710-98-27 09:45:00 Test Item Value Reference Range Interpretation Comments WBC (test code = WBC) 15.0 3.7-10.4 H [facility] CenterIsqbopyOOGLNTQPYI4362-07-94 09:45:00 Test Item Value Reference Range Interpretation Comments Hct (test code = Hct) 31.9 36.0-48.0 L [facility] CenterSxyweblZBMOVJYFTY2829-11-27 09:45:00 Test Item Value Reference Range Interpretation Comments Hgb (test code = Hgb) 10.1 12.0-16.0 L [facility] CenterFkozvbtQHCPTWAGPH7903-58-63 09:45:00 Test Item Value Reference Range Interpretation Comments RBC (test code = RBC) 3.93 4.20-5.40 L [facility] CenterIvwwfcjCWIIHMTRS4973-16-27 09:45:00 Test Item Value Reference Range Interpretation Comments ALT (test code = ALT) 35 See_Comment N [Auto mated message] The system which ge nerated this result transmit ashanti reference range : <=65. The reference range was not used to interpr et this result as carmen l/abnormal. [facility] CenterTrhapjoCQFFOYBNS1566-29-85 09:45:00 Test Item Value Reference Range Interpretation Comments Total Protein (test code = Total 5.9 6.4-8.4 L Protein) [facility] CenterUgfczjjAFNACANBT6764-47-86 09:45:00 Test Item Value Reference Range Interpretation Comments eGFR (test code = eGFR) 121 [facility] CenterWxsvskcIEASGXZIB6130-38-74 09:45:00 Test Item Value Reference Range Interpretation Comments Calcium Lvl (test code = Calcium Lvl) 8.1 8.5-10.5 L [facility] CenterHaivbmeNBQEAUWDP6520-05-60 09:45:00 Test Item Value Reference Range Interpretation Comments Albumin Lvl (test code = Albumin Lvl) 3.3 3.5-5.0 L [facility] CenterDjxlszuKAHOVVZKF9012-29-69 09:45:00 Test Item Value Reference Range Interpretation Comments Chloride Lvl (test code = Chloride Lvl) 104 95-109 N [facility] CenterQeusxvkZBNHXWGWY9622-15-99 09:45:00 Test Item Value Reference Range Interpretation Comments CO2 (test code = CO2) 24 24-32 N [facility] CenterEtaexqhELNYWWDGT0356-32-51 09:45:00 Test Item Value Reference Range Interpretation Comments Sodium Lvl (test code = Sodium Lvl) 140 135-145 N [facility] CenterSzclvcnZXUYVTVTT3366-53-52 09:45:00 Test Item Value Reference Range Interpretation Comments Potassium Lvl (test code = Potassium 4.2 3.5-5.1 N Lvl) [facility] CenterMvhcryjPGYXQYETB7796-70-99 09:45:00 Test Item Value Reference Range Interpretation Comments BUN (test code = BUN) 8 7-22 N [facility] CenterFufxrscEYKBPAPXE2943-02-69 09:45:00 Test Item Value Reference Range Interpretation Comments Creatinine Lvl (test code = Creatinine 0.6 0.5-1.4 N Lvl) [facility] CenterEvuflwmCOLRPBSMC6679-17-77 09:45:00 Test Item Value Reference Range Interpretation Comments Glucose Lvl (test code = Glucose Lvl) 87 70-99 N [facility] CenterLzkqndmRKMAXZKHP2005-66-46 09:45:00 Test Item Value Reference Range Interpretation Comments A/G Ratio (test code = A/G Ratio) 1.3 0.7-1.6 N [facility] CenterWpmzfzoAERZVUATV1570-76-90 09:45:00 Test Item Value Reference Range Interpretation Comments AST (test code = AST) 31 See_Comment N [Auto mated message] The system which ge nerated this result transmit ashanti reference range : <=37. The reference range was not used to interpr et this result as carmen l/abnormal. [facility] CenterGxxjksiLQAAIBDTN6150-54-95 09:45:00 Test Item Value Reference Range Interpretation Comments Globulin (test code = Globulin) 2.6 2.0-4.0 N [facility] CenterGcjklkpOZDLHZZTF5677-61-72 09:45:00 Test Item Value Reference Range Interpretation Comments Bili Total (test code = Bili Total) 0.4 0.2-1.3 N [facility] CenterFwadjwqMDAQUOQLZ0880-14-97 09:45:00 Test Item Value Reference Range Interpretation Comments Alk Phos (test code = Alk Phos) 57 39-136 N [facility] CenterMexdevqXXEDCMAGM1238-35-72 09:45:00 Test Item Value Reference Range Interpretation Comments ALT (test code = ALT) 35 See_Comment N [Auto mated message] The system which ge nerated this result transmit ashanti reference range : <=65. The reference range was not used to interpr et this result as carmen l/abnormal. [facility]PdxsmjwJWLTQZEUE8730-08-15 09:45:00 Test Item Value Reference Range Interpretation Comments Total Protein (test code = Total 5.9 6.4-8.4 L Protein) [facility] CenterRvjdoprAIPYAZKMD7528-72-70 09:45:00 Test Item Value Reference Range Interpretation Comments eGFR (test code = eGFR) 121 [facility] CenterCvxivkuJGMCQDKYD7328-60-68 09:45:00 Test Item Value Reference Range Interpretation Comments Calcium Lvl (test code = Calcium Lvl) 8.1 8.5-10.5 L [facility] CenterHmaobomYIVGQUKFR3209-08-98 09:45:00 Test Item Value Reference Range Interpretation Comments Albumin Lvl (test code = Albumin Lvl) 3.3 3.5-5.0 L [facility] CenterZuqjckkPVNVXWJFM3718-73-64 09:45:00 Test Item Value Reference Range Interpretation Comments Chloride Lvl (test code = Chloride Lvl) 104 95-109 N [facility] CenterOklonbiLEJFOAPVG4535-62-56 09:45:00 Test Item Value Reference Range Interpretation Comments CO2 (test code = CO2) 24 24-32 N [facility] CenterEndnekkDWRJTSUIP0354-81-46 09:45:00 Test Item Value Reference Range Interpretation Comments Sodium Lvl (test code = Sodium Lvl) 140 135-145 N [facility] CenterZecmfzjAVPYIDVVZ7216-84-22 09:45:00 Test Item Value Reference Range Interpretation Comments AGAP (test code = AGAP) 16.2 10.0-20.0 N [facility] CenterTckvoiaGCKCKGYTS1427-37-47 09:45:00 Test Item Value Reference Range Interpretation Comments Potassium Lvl (test code = Potassium 4.2 3.5-5.1 N Lvl) [facility] CenterBpkpgmjXCOFMMWJW2205-34-48 09:45:00 Test Item Value Reference Range Interpretation Comments BUN (test code = BUN) 8 7-22 N [facility] CenterRszqunrEHOHEFEFS6071-59-03 09:45:00 Test Item Value Reference Range Interpretation Comments Creatinine Lvl (test code = Creatinine 0.6 0.5-1.4 N Lvl) [facility] CenterIjohpquHQKQUBUDJ3146-46-62 09:45:00 Test Item Value Reference Range Interpretation Comments Glucose Lvl (test code = Glucose Lvl) 87 70-99 N [facility] CenterXgodatkTKLXIVRBH7280-30-36 09:45:00 Test Item Value Reference Range Interpretation Comments A/G Ratio (test code = A/G Ratio) 1.3 0.7-1.6 N [facility] CenterBjejvcrIFLODXZTE4360-70-58 09:45:00 Test Item Value Reference Range Interpretation Comments Globulin (test code = Globulin) 2.6 2.0-4.0 N [facility] CenterRxfyifeZDOAXUJFS8704-76-23 09:45:00 Test Item Value Reference Range Interpretation Comments AGAP (test code = AGAP) 16.2 10.0-20.0 N [facility] CenterKdbqoiaTHSCUSIPQ6998-18-84 09:45:00 Test Item Value Reference Range Interpretation Comments B/C Ratio (test code = B/C Ratio) 13 6-25 N [facility] CenterJxdlimeYMYIHTXFMS9915-62-30 09:45:00 Test Item Value Reference Range Interpretation Comments Lymphocytes (test code = Lymphocytes) 11.0 20.0-40.0 L [facility] CenterDfftltrNICNYUEOWT0066-40-05 09:45:00 Test Item Value Reference Range Interpretation Comments Segs (test code = Segs) 86.0 45.0-75.0 H [facility] CenterVvkcymuKGXHRQLJG8175-44-96 09:45:00 Test Item Value Reference Range Interpretation Comments B/C Ratio (test code = B/C Ratio) 13 6-25 N [facility] CenterJdwawgkLSMZEHLXYJ7231-54-13 09:45:00 Test Item Value Reference Range Interpretation Comments Bands (test code = 1.0 See_Comment N [Automat ed message] The Bands) system which ge nerated this result transmit ashanti reference range : <=11.0. The reference r megan was not used to interpr et this result as carmen l/abnormal. [facility] CenterMkysgnnULALIINPGN5274-89-62 09:45:00 Test Item Value Reference Range Interpretation Comments Lymphocytes # (test code = Lymphocytes 1.6 1.0-5.5 N #) [facility] CenterIzjyzqlMBELQQCDVN8175-46-19 09:45:00 Test Item Value Reference Range Interpretation Comments Monocytes # (test code 0.0 See_Comment N [Aut omated message] The = Monocytes #) system which generated this result tra nsmitted reference range : <=0.8. The reference r megan was not used to int erpret this result as normal/abnormal . [facility] CenterPlhaiawOUFSQBRKMM1220-32-63 09:45:00 Test Item Value Reference Range Interpretation Comments Segs-Bands # (test code = Segs-Bands #) 13.0 1.5-8.1 H [facility] CenterOxzyinhMVZOQXSWGH7743-65-19 09:45:00 Test Item Value Reference Range Interpretation Comments Plt Morph (test code = Normal (12/11/2012 N Plt Morph) 03:45:00) [facility] CenterVprhovfUDRBFQHDPE1674-06-23 09:45:00 Test Item Value Reference Range Interpretation Comments Hypochrom (test code = Slight (12/11/2012 N Hypochrom) 03:45:00) [facility] CenterDbhydyfZPYRCCLVSX1056-86-38 09:45:00 Test Item Value Reference Range Interpretation Comments Myelocytes (test code = Myelocytes) 1.0 H [facility] CenterTfysoggSIFHIUMTJN5515-20-35 09:45:00 Test Item Value Reference Range Interpretation Comments Atypical Lymphs (test code = Atypical 0.0 N Lymphs) [facility] CenterThghtlaGBPNNGQJJV1642-41-32 09:45:00 Test Item Value Reference Range Interpretation Comments Monocytes (test code = Monocytes) 0.0 2.0-12.0 L [facility] CenterQlxerbwTIFJTSMDKZ6700-76-08 09:45:00 Test Item Value Reference Range Interpretation Comments Metamyelocytes (test code 1.0 See_Comment N [ Automated message] = Metamyelocytes) The system which generated this result transmitted ref erence range: <=1.0. T he reference range was not used to int erpret this result as normal/abnormal . [facility] CenterJirsjwbKMPOHIMNPZ8654-09-62 09:45:00 Test Item Value Reference Range Interpretation Comments Lymphocytes (test code = Lymphocytes) 11.0 20.0-40.0 L [facility] CenterCemkjdqWTSFNZIOGH7374-52-73 09:45:00 Test Item Value Reference Range Interpretation Comments RDW (test code = RDW) 16.2 11.5-14.5 H [facility] CenterItvsywjLJINGDRSVW7572-67-07 09:45:00 Test Item Value Reference Range Interpretation Comments Platelet (test code = Platelet) 268 133-450 N [facility] CenterPidkwkvPTJXVKIRDM9937-67-62 09:45:00 Test Item Value Reference Range Interpretation Comments MPV (test code = MPV) 9.0 7.4-10.4 N [facility] CenterNemknowYNLGAKFZLX3467-09-67 09:45:00 Test Item Value Reference Range Interpretation Comments MCV (test code = MCV) 81.2 81.0-99.0 N [facility] CenterJorxlulUFZFMPBRSL9075-15-73 09:45:00 Test Item Value Reference Range Interpretation Comments MCH (test code = MCH) 25.7 pg 27.0-31.0 L [facility] CenterVidprpiOJBCOUFXVI0579-28-80 09:45:00 Test Item Value Reference Range Interpretation Comments MCHC (test code = MCHC) 31.6 32.0-36.0 L [facility] CenterVbyjawiDKVWYVIAOE3061-00-80 09:45:00 Test Item Value Reference Range Interpretation Comments WBC (test code = WBC) 15.0 3.7-10.4 H [facility] CenterBuflemjHKAQGMIVMX4169-41-99 09:45:00 Test Item Value Reference Range Interpretation Comments Hct (test code = Hct) 31.9 36.0-48.0 L [facility] CenterQpmbkteDUEMEFZWAG6438-18-68 09:45:00 Test Item Value Reference Range Interpretation Comments Hgb (test code = Hgb) 10.1 12.0-16.0 L [facility] CenterFtvxowaQMMSQOMWUB1359-57-94 09:45:00 Test Item Value Reference Range Interpretation Comments RBC (test code = RBC) 3.93 4.20-5.40 L [facility] CenterAgfqhmxYFMQAWRCFR9825-44-27 09:45:00 Test Item Value Reference Range Interpretation Comments Segs (test code = Segs) 86.0 45.0-75.0 H [facility] CenterLjuyxrtVQSHOYZWYM9569-15-43 09:45:00 Test Item Value Reference Range Interpretation Comments Bands (test code = 1.0 See_Comment N [Automat ed message] The Bands) system which ge nerated this result transmit ashanti reference range : <=11.0. The reference r megan was not used to interpr et this result as carmen l/abnormal. [facility] CenterAknoydtTKFXSRTVNO1936-05-38 09:45:00 Test Item Value Reference Range Interpretation Comments Lymphocytes # (test code = Lymphocytes 1.6 1.0-5.5 N #) [facility] CenterGykjjikXDOVSHCEOB6394-56-08 09:45:00 Test Item Value Reference Range Interpretation Comments Monocytes # (test code 0.0 See_Comment N [Aut omated message] The = Monocytes #) system which generated this result tra nsmitted reference range : <=0.8. The reference r megan was not used to int erpret this result as normal/abnormal . [facility] CenterDmtlsxhQGOSFYTAPK5673-96-37 09:45:00 Test Item Value Reference Range Interpretation Comments Segs-Bands # (test code = Segs-Bands #) 13.0 1.5-8.1 H [facility] CenterUvkbonwZQVVTNENFA4947-62-41 09:45:00 Test Item Value Reference Range Interpretation Comments Plt Morph (test code = Normal (12/11/2012 N Plt Morph) 03:45:00) [facility] CenterWligbboHHJXPHHXVN2276-91-46 09:45:00 Test Item Value Reference Range Interpretation Comments Hypochrom (test code = Slight (12/11/2012 N Hypochrom) 03:45:00) [facility] CenterOcmqezdPDAAGISVGO1835-96-22 09:45:00 Test Item Value Reference Range Interpretation Comments Myelocytes (test code = Myelocytes) 1.0 H [facility] CenterCtlwopfTBWTAGDMQL2610-95-52 09:45:00 Test Item Value Reference Range Interpretation Comments Atypical Lymphs (test code = Atypical 0.0 N Lymphs) [facility] CenterLwsejooFVOXESBABB3597-90-67 09:45:00 Test Item Value Reference Range Interpretation Comments Monocytes (test code = Monocytes) 0.0 2.0-12.0 L [facility] CenterNcqpvwjRSEDDSDUJO1717-80-82 09:45:00 Test Item Value Reference Range Interpretation Comments Metamyelocytes (test code 1.0 See_Comment N [ Automated message] = Metamyelocytes) The system which generated this result transmitted ref erence range: <=1.0. T he reference range was not used to int erpret this result as normal/abnormal . [facility] CenterFzwmqrwYGSFTAVQIO9267-14-46 09:45:00 Test Item Value Reference Range Interpretation Comments RDW (test code = RDW) 16.2 11.5-14.5 H [facility] CenterUlhqatzLLJJYXROUZ5240-34-21 09:45:00 Test Item Value Reference Range Interpretation Comments Platelet (test code = Platelet) 268 133-450 N [facility] CenterHgkgpcuYEXXYHNVFP6453-83-37 09:45:00 Test Item Value Reference Range Interpretation Comments MPV (test code = MPV) 9.0 7.4-10.4 N [facility] CenterCieyvsvBVFVZJXPO4054-16-11 09:45:00 Test Item Value Reference Range Interpretation Comments AST (test code = AST) 31 See_Comment N [Auto mated message] The system which ge nerated this result transmit ashanti reference range : <=37. The reference range was not used to interpr et this result as carmen l/abnormal. [facility] CenterWuyjkreYPFEGJIOE7206-81-76 09:45:00 Test Item Value Reference Range Interpretation Comments Bili Total (test code = Bili Total) 0.4 0.2-1.3 N [facility] CenterQyjdnooUHFDABTZR0517-23-50 09:45:00 Test Item Value Reference Range Interpretation Comments Alk Phos (test code = Alk Phos) 57 39-136 N [facility] CenterVlrhqbsGGROUYTHY9418-62-07 09:45:00 Test Item Value Reference Range Interpretation Comments ALT (test code = ALT) 35 See_Comment N [Auto mated message] The system which ge nerated this result transmit ashanti reference range : <=65. The reference range was not used to interpr et this result as carmen l/abnormal. [facility] CenterFoqacccCEHHOTJGN0940-68-63 09:45:00 Test Item Value Reference Range Interpretation Comments Total Protein (test code = Total 5.9 6.4-8.4 L Protein) [facility] CenterEttkbewROKARLWQJ3573-02-08 09:45:00 Test Item Value Reference Range Interpretation Comments eGFR (test code = eGFR) 121 [facility] CenterEgldkixOYCDHJMVU8454-34-00 09:45:00 Test Item Value Reference Range Interpretation Comments Calcium Lvl (test code = Calcium Lvl) 8.1 8.5-10.5 L [facility] CenterNjkmouoIBWNUXLOE9442-81-96 09:45:00 Test Item Value Reference Range Interpretation Comments Albumin Lvl (test code = Albumin Lvl) 3.3 3.5-5.0 L [facility] CenterCrthdotMBLGSJFOG2153-10-08 09:45:00 Test Item Value Reference Range Interpretation Comments Chloride Lvl (test code = Chloride Lvl) 104 95-109 N [facility] CenterIccodiiPBPVLOKVOR7040-36-03 09:45:00 Test Item Value Reference Range Interpretation Comments MCV (test code = MCV) 81.2 81.0-99.0 N [facility] CenterKfvtwyqSOJFMCKEF2897-21-83 09:45:00 Test Item Value Reference Range Interpretation Comments CO2 (test code = CO2) 24 24-32 N [facility] CenterNskuipwKPYVHOTHM0235-73-85 09:45:00 Test Item Value Reference Range Interpretation Comments Sodium Lvl (test code = Sodium Lvl) 140 135-145 N [facility] CenterTxhikfhMNCHKYDOY7200-13-87 09:45:00 Test Item Value Reference Range Interpretation Comments Potassium Lvl (test code = Potassium 4.2 3.5-5.1 N Lvl) [facility] CenterGuenkavLLNLOGFAO9364-16-50 09:45:00 Test Item Value Reference Range Interpretation Comments BUN (test code = BUN) 8 7-22 N [facility] CenterNzywmwvNACQHGTZT6650-16-28 09:45:00 Test Item Value Reference Range Interpretation Comments Creatinine Lvl (test code = Creatinine 0.6 0.5-1.4 N Lvl) [facility] CenterMdmvwftXRKWOFELH4498-38-16 09:45:00 Test Item Value Reference Range Interpretation Comments Glucose Lvl (test code = Glucose Lvl) 87 70-99 N [facility] CenterOycseftRFTWOUPQG0263-57-77 09:45:00 Test Item Value Reference Range Interpretation Comments A/G Ratio (test code = A/G Ratio) 1.3 0.7-1.6 N [facility] CenterHtxalmoPLGFADUMC6059-00-82 09:45:00 Test Item Value Reference Range Interpretation Comments Globulin (test code = Globulin) 2.6 2.0-4.0 N [facility] CenterDunukjaMDRWNTWMI7307-82-20 09:45:00 Test Item Value Reference Range Interpretation Comments AGAP (test code = AGAP) 16.2 10.0-20.0 N [facility] CenterLzmmwejQJYNSRDER1356-46-65 09:45:00 Test Item Value Reference Range Interpretation Comments B/C Ratio (test code = B/C Ratio) 13 6-25 N [facility] CenterIdthjkyTHOPXYPHKZ5611-31-97 09:45:00 Test Item Value Reference Range Interpretation Comments MCH (test code = MCH) 25.7 pg 27.0-31.0 L [facility] CenterXvzxpdaEENPHQJEWD0622-75-26 09:45:00 Test Item Value Reference Range Interpretation Comments Lymphocytes (test code = Lymphocytes) 11.0 20.0-40.0 L [facility] CenterCiyqojmHQMCAYYDCT5237-87-70 09:45:00 Test Item Value Reference Range Interpretation Comments Segs (test code = Segs) 86.0 45.0-75.0 H [facility] CenterWlygwjhAISQAGRHTK3551-52-01 09:45:00 Test Item Value Reference Range Interpretation Comments Bands (test code = 1.0 See_Comment N [Automat ed message] The Bands) system which ge nerated this result transmit ashanti reference range : <=11.0. The reference r megan was not used to interpr et this result as carmen l/abnormal. [facility] CenterBlcsrcbYTZPXSBNVY5526-16-35 09:45:00 Test Item Value Reference Range Interpretation Comments Lymphocytes # (test code = Lymphocytes 1.6 1.0-5.5 N #) [facility] CenterCaqadxpGZUETOWBKR0885-00-46 09:45:00 Test Item Value Reference Range Interpretation Comments Monocytes # (test code 0.0 See_Comment N [Aut omated message] The = Monocytes #) system which generated this result tra nsmitted reference range : <=0.8. The reference r megan was not used to int erpret this result as normal/abnormal . [facility] CenterZjnpavlSIOFHUQGYD3096-67-64 09:45:00 Test Item Value Reference Range Interpretation Comments Segs-Bands # (test code = Segs-Bands #) 13.0 1.5-8.1 H [facility] CenterOqorjfvSCSZRYVECZ1439-85-52 09:45:00 Test Item Value Reference Range Interpretation Comments Plt Morph (test code = Normal (12/11/2012 N Plt Morph) 03:45:00) [facility] CenterKdpuetxRKXXDKGNPW2580-16-55 09:45:00 Test Item Value Reference Range Interpretation Comments Hypochrom (test code = Slight (12/11/2012 N Hypochrom) 03:45:00) [facility] CenterTtrjfhvUWAMKUXRLB9000-81-81 09:45:00 Test Item Value Reference Range Interpretation Comments Myelocytes (test code = Myelocytes) 1.0 H [facility] CenterNblqufpNPNTQJSRVE6975-70-54 09:45:00 Test Item Value Reference Range Interpretation Comments Atypical Lymphs (test code = Atypical 0.0 N Lymphs) [facility] CenterRexrxtyRBJVIGWNPG0655-13-49 09:45:00 Test Item Value Reference Range Interpretation Comments MCHC (test code = MCHC) 31.6 32.0-36.0 L [facility] CenterOuciohaKXDRUFRSRB4399-40-99 09:45:00 Test Item Value Reference Range Interpretation Comments Monocytes (test code = Monocytes) 0.0 2.0-12.0 L [facility] CenterWtraymuBJYCLZHICF2288-18-57 09:45:00 Test Item Value Reference Range Interpretation Comments Metamyelocytes (test code 1.0 See_Comment N [ Automated message] = Metamyelocytes) The system which generated this result transmitted ref erence range: <=1.0. T he reference range was not used to int erpret this result as normal/abnormal . [facility] CenterTbgcyfhPZCNPWNVVD2900-51-25 09:45:00 Test Item Value Reference Range Interpretation Comments RDW (test code = RDW) 16.2 11.5-14.5 H [facility] CenterFpzsrvbKKMPIRUMCX8219-57-64 09:45:00 Test Item Value Reference Range Interpretation Comments Platelet (test code = Platelet) 268 133-450 N [facility] CenterLjoluwlQWDXVSNSFD4378-02-53 09:45:00 Test Item Value Reference Range Interpretation Comments MPV (test code = MPV) 9.0 7.4-10.4 N [facility] CenterXhhcxxwXZQNQVCNYL9102-41-79 09:45:00 Test Item Value Reference Range Interpretation Comments MCV (test code = MCV) 81.2 81.0-99.0 N [facility] CenterTfrqgjdJXLIETWSZE9832-57-87 09:45:00 Test Item Value Reference Range Interpretation Comments MCH (test code = MCH) 25.7 pg 27.0-31.0 L [facility] CenterUggrnxoYZXMGTCYBO7807-33-33 09:45:00 Test Item Value Reference Range Interpretation Comments MCHC (test code = MCHC) 31.6 32.0-36.0 L [facility] CenterOebnrzlENMMEADUZO8957-80-88 09:45:00 Test Item Value Reference Range Interpretation Comments WBC (test code = WBC) 15.0 3.7-10.4 H [facility] CenterSmdffhbNSRDCLSFQD2441-02-13 09:45:00 Test Item Value Reference Range Interpretation Comments Hct (test code = Hct) 31.9 36.0-48.0 L [facility] CenterVkvtnmqYXIBKJQAIK8236-74-02 09:45:00 Test Item Value Reference Range Interpretation Comments WBC (test code = WBC) 15.0 3.7-10.4 H [facility] CenterFqcpumjYYQQLBXVZM3067-69-69 09:45:00 Test Item Value Reference Range Interpretation Comments Hgb (test code = Hgb) 10.1 12.0-16.0 L [facility] CenterPplvlpiMDPODPTDSV9263-10-86 09:45:00 Test Item Value Reference Range Interpretation Comments RBC (test code = RBC) 3.93 4.20-5.40 L [facility] CenterBoozfbaNIPWUPNVTG3723-60-80 09:45:00 Test Item Value Reference Range Interpretation Comments Hct (test code = Hct) 31.9 36.0-48.0 L [facility] CenterBxygsxhLSYEYEGGPO9790-89-77 09:45:00 Test Item Value Reference Range Interpretation Comments Hgb (test code = Hgb) 10.1 12.0-16.0 L [facility] CenterShymdivBLBOBGGARX4992-74-49 09:45:00 Test Item Value Reference Range Interpretation Comments RBC (test code = RBC) 3.93 4.20-5.40 [facility]rOWPAHBLIK1943-[facility]-27 09:45:00 Test Item Value Reference Range Interpretation Comments AST (test code = AST) 31 See_Comment N [Auto mated message] The system which ge nerated this result transmit ashanti reference range : <=37. The reference range was not used to interpr et this result as carmen l/abnormal. [facility]IlywnhtHYFRSDDBL8745-31-04 09:45:00 Test Item Value Reference Range Interpretation Comments Bili Total (test code = Bili Total) 0.4 0.2-1.3 N [facility] CenterRhirlohEORVATROW2543-25-35 09:45:00 Test Item Value Reference Range Interpretation Comments Alk Phos (test code = Alk Phos) 57 39-136 N [facility] CenterLxcdsmeFSFAYGJPJ0141-18-66 09:45:00 Test Item Value Reference Range Interpretation Comments ALT (test code = ALT) 35 See_Comment N [Auto mated message] The system which ge nerated this result transmit ashanti reference range : <=65. The reference range was not used to interpr et this result as carmen l/abnormal. [facility] CenterOuysjjnHVRICETEL2939-02-37 09:45:00 Test Item Value Reference Range Interpretation Comments Total Protein (test code = Total 5.9 6.4-8.4 L Protein) [facility] CenterIjrhxlcOFURENYFI3411-30-64 09:45:00 Test Item Value Reference Range Interpretation Comments eGFR (test code = eGFR) 121 [facility] CenterIrrullyKZCRKGEAH5577-14-54 09:45:00 Test Item Value Reference Range Interpretation Comments Calcium Lvl (test code = Calcium Lvl) 8.1 8.5-10.5 L [facility] CenterBceaoazUCHPNJNEU9116-85-30 09:45:00 Test Item Value Reference Range Interpretation Comments Albumin Lvl (test code = Albumin Lvl) 3.3 3.5-5.0 L [facility] CenterAyjhtfiZUQOKNNLW2021-64-31 09:45:00 Test Item Value Reference Range Interpretation Comments Chloride Lvl (test code = Chloride Lvl) 104 95-109 N [facility] CenterPplavkzOKEKYYJXO4359-39-64 09:45:00 Test Item Value Reference Range Interpretation Comments CO2 (test code = CO2) 24 24-32 N [facility] CenterHjbazobORAMIGFWZ5065-12-71 09:45:00 Test Item Value Reference Range Interpretation Comments Sodium Lvl (test code = Sodium Lvl) 140 135-145 N [facility] CenterZohthdzDOCOQUJEM0258-06-75 09:45:00 Test Item Value Reference Range Interpretation Comments Potassium Lvl (test code = Potassium 4.2 3.5-5.1 N Lvl) [facility] CenterKfdciujYGNTDSGRM6163-98-73 09:45:00 Test Item Value Reference Range Interpretation Comments BUN (test code = BUN) 8 7-22 N [facility] CenterGhiejpsNXEFFNVRZ7310-87-02 09:45:00 Test Item Value Reference Range Interpretation Comments Creatinine Lvl (test code = Creatinine 0.6 0.5-1.4 N Lvl) [facility] CenterGevgoofOVVYHJGXT1877-94-11 09:45:00 Test Item Value Reference Range Interpretation Comments Glucose Lvl (test code = Glucose Lvl) 87 70-99 N [facility] CenterZkfuzxbNRFMUGZFW0823-09-22 09:45:00 Test Item Value Reference Range Interpretation Comments A/G Ratio (test code = A/G Ratio) 1.3 0.7-1.6 N [facility] CenterWznrunkNLZNVHGSH2353-28-97 09:45:00 Test Item Value Reference Range Interpretation Comments Globulin (test code = Globulin) 2.6 2.0-4.0 N [facility] CenterNjlvwhkMEAQIBZMF9349-83-93 09:45:00 Test Item Value Reference Range Interpretation Comments AGAP (test code = AGAP) 16.2 10.0-20.0 N [facility] CenterImzempqIHIAMXYWM0903-75-61 09:45:00 Test Item Value Reference Range Interpretation Comments B/C Ratio (test code = B/C Ratio) 13 6-25 N [facility] CenterOuflgrjTGTFLXLBHS2870-89-75 09:45:00 Test Item Value Reference Range Interpretation Comments Lymphocytes (test code = Lymphocytes) 11.0 20.0-40.0 L [facility] CenterKbwztjhJDIKRLOFPS0408-39-36 09:45:00 Test Item Value Reference Range Interpretation Comments Segs (test code = Segs) 86.0 45.0-75.0 H [facility] CenterNqhubalVNAQPIELDQ7040-32-04 09:45:00 Test Item Value Reference Range Interpretation Comments Bands (test code = 1.0 See_Comment N [Automat ed message] The Bands) system which ge nerated this result transmit ashanti reference range : <=11.0. The reference r megan was not used to interpr et this result as carmen l/abnormal. [facility] CenterLxkiqwbQCKRZDDTII3396-43-16 09:45:00 Test Item Value Reference Range Interpretation Comments Lymphocytes # (test code = Lymphocytes 1.6 1.0-5.5 N #) [facility] CenterAqyuwfoWPYJSVMVKN3760-10-13 09:45:00 Test Item Value Reference Range Interpretation Comments Monocytes # (test code 0.0 See_Comment N [Aut omated message] The = Monocytes #) system which generated this result tra nsmitted reference range : <=0.8. The reference r megan was not used to int erpret this result as normal/abnormal . [facility] CenterNdawqdyBUDISSIHPS3187-33-92 09:45:00 Test Item Value Reference Range Interpretation Comments Segs-Bands # (test code = Segs-Bands #) 13.0 1.5-8.1 H [facility] CenterFkuowfnKQSKMFVOMO9498-00-00 09:45:00 Test Item Value Reference Range Interpretation Comments Plt Morph (test code = Normal (12/11/2012 N Plt Morph) 03:45:00) [facility] CenterApsnggjNVNWBIXWVC0074-29-82 09:45:00 Test Item Value Reference Range Interpretation Comments Hypochrom (test code = Slight (12/11/2012 N Hypochrom) 03:45:00) [facility] CenterMwaaxisKUAULQERGM1662-54-91 09:45:00 Test Item Value Reference Range Interpretation Comments Myelocytes (test code = Myelocytes) 1.0 H [facility] CenterZkmgztoQXNRUHHSXG7621-96-52 09:45:00 Test Item Value Reference Range Interpretation Comments Atypical Lymphs (test code = Atypical 0.0 N Lymphs) [facility] CenterEwnxwupLQTYGFVXTM4141-15-60 09:45:00 Test Item Value Reference Range Interpretation Comments Monocytes (test code = Monocytes) 0.0 2.0-12.0 L [facility] CenterJqssrzeMMOEAVYZRZ3281-92-29 09:45:00 Test Item Value Reference Range Interpretation Comments Metamyelocytes (test code 1.0 See_Comment N [ Automated message] = Metamyelocytes) The system which generated this result transmitted ref erence range: <=1.0. T he reference range was not used to int erpret this result as normal/abnormal . [facility] CenterKmgkrtyJLNWWNBIZN5918-86-97 09:45:00 Test Item Value Reference Range Interpretation Comments RDW (test code = RDW) 16.2 11.5-14.5 H [facility] CenterXaxchebWRZBFSGRQN8760-24-37 09:45:00 Test Item Value Reference Range Interpretation Comments Platelet (test code = Platelet) 268 133-450 N [facility] CenterXgtavcfSVKDFFWJDV3960-31-71 09:45:00 Test Item Value Reference Range Interpretation Comments MPV (test code = MPV) 9.0 7.4-10.4 N [facility] CenterJdwavrzZSBOJGKENB0360-12-30 09:45:00 Test Item Value Reference Range Interpretation Comments MCV (test code = MCV) 81.2 81.0-99.0 N [facility] CenterFcdbnteMPLFJFDSSB2437-10-02 09:45:00 Test Item Value Reference Range Interpretation Comments MCH (test code = MCH) 25.7 pg 27.0-31.0 L [facility] CenterMfiybmaMOIVNEVIPF6318-67-10 09:45:00 Test Item Value Reference Range Interpretation Comments MCHC (test code = MCHC) 31.6 32.0-36.0 L [facility] CenterDttckfdQIGALITEFP0970-21-56 09:45:00 Test Item Value Reference Range Interpretation Comments WBC (test code = WBC) 15.0 3.7-10.4 H [facility] CenterIawgalxPSBNJCWRFE2120-21-90 09:45:00 Test Item Value Reference Range Interpretation Comments Hct (test code = Hct) 31.9 36.0-48.0 L [facility] CenterXhjuaatEVUXSNHFPO8108-99-42 09:45:00 Test Item Value Reference Range Interpretation Comments Hgb (test code = Hgb) 10.1 12.0-16.0 L [facility] CenterGcfcahtSAQSODIJIE2817-69-90 09:45:00 Test Item Value Reference Range Interpretation Comments RBC (test code = RBC) 3.93 4.20-5.40 L [facility] CenterZaimqpjEBDJTJJUC8371-15-99 09:45:00 Test Item Value Reference Range Interpretation Comments AST (test code = AST) 31 See_Comment N [Auto mated message] The system which ge nerated this result transmit ashanti reference range : <=37. The reference range was not used to interpr et this result as carmen l/abnormal. [facility] CenterXtgobbpHZYVTARHU1178-58-01 09:45:00 Test Item Value Reference Range Interpretation Comments Bili Total (test code = Bili Total) 0.4 0.2-1.3 N [facility] CenterIzeihalBPPYLKHAK4657-34-87 09:45:00 Test Item Value Reference Range Interpretation Comments Alk Phos (test code = Alk Phos) 57 39-136 N [facility] CenterAoqykvtVRYNFMYZQ4877-30-25 09:45:00 Test Item Value Reference Range Interpretation Comments ALT (test code = ALT) 35 See_Comment N [Auto mated message] The system which ge nerated this result transmit ashanti reference range : <=65. The reference range was not used to interpr et this result as carmne l/abnormal. [facility] CenterJnpqnmnDBHQCHMBU0724-08-60 09:45:00 Test Item Value Reference Range Interpretation Comments Total Protein (test code = Total 5.9 6.4-8.4 L Protein) [facility] CenterSeqqethRMZLMRQHI5267-00-45 09:45:00 Test Item Value Reference Range Interpretation Comments eGFR (test code = eGFR) 121 [facility] CenterGggiiwrLWXXYUXIU4750-68-75 09:45:00 Test Item Value Reference Range Interpretation Comments Calcium Lvl (test code = Calcium Lvl) 8.1 8.5-10.5 L [facility] CenterDtfnvbjSWBUESKNZ8252-87-74 09:45:00 Test Item Value Reference Range Interpretation Comments Albumin Lvl (test code = Albumin Lvl) 3.3 3.5-5.0 L [facility] CenterKorulowUPDQOIOQH5167-73-07 09:45:00 Test Item Value Reference Range Interpretation Comments Chloride Lvl (test code = Chloride Lvl) 104 95-109 N [facility] CenterXqzvmhjIAOBCZADY5724-11-27 09:45:00 Test Item Value Reference Range Interpretation Comments CO2 (test code = CO2) 24 24-32 N [facility] CenterItwlcnlTQHMPTZKW1828-95-31 09:45:00 Test Item Value Reference Range Interpretation Comments Sodium Lvl (test code = Sodium Lvl) 140 135-145 N [facility] CenterIfjkksiYOEFVKRQN5326-55-79 09:45:00 Test Item Value Reference Range Interpretation Comments Potassium Lvl (test code = Potassium 4.2 3.5-5.1 N Lvl) [facility] CenterSulapreDZQGXLRSM6068-48-13 09:45:00 Test Item Value Reference Range Interpretation Comments BUN (test code = BUN) 8 7-22 N [facility] CenterPohoowmYIIUGYANC6882-62-96 09:45:00 Test Item Value Reference Range Interpretation Comments Creatinine Lvl (test code = Creatinine 0.6 0.5-1.4 N Lvl) [facility] CenterVmibfcxWOTHGKCSF4074-20-30 09:45:00 Test Item Value Reference Range Interpretation Comments Glucose Lvl (test code = Glucose Lvl) 87 70-99 N [facility] CenterXpkzzpbBPKKTFMTE0119-33-36 09:45:00 Test Item Value Reference Range Interpretation Comments A/G Ratio (test code = A/G Ratio) 1.3 0.7-1.6 N [facility] CenterGiqmnkdAYMOFKORK5589-42-42 09:45:00 Test Item Value Reference Range Interpretation Comments Globulin (test code = Globulin) 2.6 2.0-4.0 N [facility] CenterSrdzxuaTEXSDWZMO3349-49-10 09:45:00 Test Item Value Reference Range Interpretation Comments AGAP (test code = AGAP) 16.2 10.0-20.0 N [facility] CenterVtgyuvrQQTBHHQUE9632-67-41 09:45:00 Test Item Value Reference Range Interpretation Comments B/C Ratio (test code = B/C Ratio) 13 6-25 N [facility] CenterJbotsddOTXLFTFDWP6028-36-37 09:45:00 Test Item Value Reference Range Interpretation Comments Lymphocytes (test code = Lymphocytes) 11.0 20.0-40.0 L [facility] CenterHstkclpKITEXARMAZ9213-09-45 09:45:00 Test Item Value Reference Range Interpretation Comments Segs (test code = Segs) 86.0 45.0-75.0 H [facility] CenterQxhiirlTTYNPQRZCF7551-72-08 09:45:00 Test Item Value Reference Range Interpretation Comments Bands (test code = 1.0 See_Comment N [Automat ed message] The Bands) system which ge nerated this result transmit ashanti reference range : <=11.0. The reference r megan was not used to interpr et this result as carmen l/abnormal. [facility] CenterOofmukrTBJOZXTGUK9587-22-66 09:45:00 Test Item Value Reference Range Interpretation Comments Lymphocytes # (test code = Lymphocytes 1.6 1.0-5.5 N #) [facility] CenterRvippbnZYYKPTNRTF3155-37-53 09:45:00 Test Item Value Reference Range Interpretation Comments Monocytes # (test code 0.0 See_Comment N [Aut omated message] The = Monocytes #) system which generated this result tra nsmitted reference range : <=0.8. The reference r megan was not used to int erpret this result as normal/abnormal . [facility] CenterKdyqyzaZZSSCZIEXL4752-97-80 09:45:00 Test Item Value Reference Range Interpretation Comments Segs-Bands # (test code = Segs-Bands #) 13.0 1.5-8.1 H [facility] CenterGtpsmkcJZVZEPJQZX2213-79-44 09:45:00 Test Item Value Reference Range Interpretation Comments Plt Morph (test code = Normal (12/11/2012 N Plt Morph) 03:45:00) [facility] CenterTgnlgqkKCZTDHPSPQ0814-41-83 09:45:00 Test Item Value Reference Range Interpretation Comments Hypochrom (test code = Slight (12/11/2012 N Hypochrom) 03:45:00) [facility] CenterTqsrtzlLNXEGIMEMD8595-80-80 09:45:00 Test Item Value Reference Range Interpretation Comments Myelocytes (test code = Myelocytes) 1.0 H [facility] CenterZjtgrrzZXFEIZXHFP6458-83-37 09:45:00 Test Item Value Reference Range Interpretation Comments Atypical Lymphs (test code = Atypical 0.0 N Lymphs) [facility] CenterGxuyzhoLAHSTDFYFQ8786-89-06 09:45:00 Test Item Value Reference Range Interpretation Comments Monocytes (test code = Monocytes) 0.0 2.0-12.0 L [facility] CenterOzosaxnMBMOQGLVDR5914-17-70 09:45:00 Test Item Value Reference Range Interpretation Comments Metamyelocytes (test code 1.0 See_Comment N [ Automated message] = Metamyelocytes) The system which generated this result transmitted ref erence range: <=1.0. T he reference range was not used to int erpret this result as normal/abnormal . [facility] CenterEgeddgpEDITCRMEBY0393-79-64 09:45:00 Test Item Value Reference Range Interpretation Comments RDW (test code = RDW) 16.2 11.5-14.5 H [facility] CenterMthqcdmIYFVDKYSOU2973-89-13 09:45:00 Test Item Value Reference Range Interpretation Comments Platelet (test code = Platelet) 268 133-450 N [facility] CenterPpxpduoESTCKIHUQF2860-72-71 09:45:00 Test Item Value Reference Range Interpretation Comments MPV (test code = MPV) 9.0 7.4-10.4 N [facility] CenterYceeiotYIFYZACKGZ8193-39-65 09:45:00 Test Item Value Reference Range Interpretation Comments MCV (test code = MCV) 81.2 81.0-99.0 N [facility] CenterHimghkpJLWVHRJUMH8830-22-78 09:45:00 Test Item Value Reference Range Interpretation Comments MCH (test code = MCH) 25.7 pg 27.0-31.0 L [facility] CenterMhettzbKVTKFJUCVE0692-99-30 09:45:00 Test Item Value Reference Range Interpretation Comments MCHC (test code = MCHC) 31.6 32.0-36.0 L [facility] CenterJuefehkKORUUGVTBM8188-21-20 09:45:00 Test Item Value Reference Range Interpretation Comments WBC (test code = WBC) 15.0 3.7-10.4 H [facility] CenterEckddirZBVMPNYPYQ4538-41-36 09:45:00 Test Item Value Reference Range Interpretation Comments Hct (test code = Hct) 31.9 36.0-48.0 L [facility] CenterGdairdrNKLUJNDPRZ0015-88-06 09:45:00 Test Item Value Reference Range Interpretation Comments Hgb (test code = Hgb) 10.1 12.0-16.0 L [facility] CenterAuzxxoaBDHTOVRVPN1945-19-47 09:45:00 Test Item Value Reference Range Interpretation Comments RBC (test code = RBC) 3.93 4.20-5.40 L [facility] CenterQmtgyqxQUZWIMUZH7506-12-26 09:45:00 Test Item Value Reference Range Interpretation Comments AST (test code = AST) 31 See_Comment N [Auto mated message] The system which ge nerated this result transmit ashanti reference range : <=37. The reference range was not used to interpr et this result as carmen l/abnormal. [facility] CenterRzguuvnITAXFPNAF9841-15-11 09:45:00 Test Item Value Reference Range Interpretation Comments Bili Total (test code = Bili Total) 0.4 0.2-1.3 N [facility] CenterMfbldmlZUWBTPARA1931-40-26 09:45:00 Test Item Value Reference Range Interpretation Comments Alk Phos (test code = Alk Phos) 57 39-136 N [facility] CenterNrbkusiGATSAXIRR8596-60-71 09:45:00 Test Item Value Reference Range Interpretation Comments ALT (test code = ALT) 35 See_Comment N [Auto mated message] The system which ge nerated this result transmit ashanti reference range : <=65. The reference range was not used to interpr et this result as carmen l/abnormal. [facility] CenterCcyabsgRTMMBLGTA6688-09-60 09:45:00 Test Item Value Reference Range Interpretation Comments Total Protein (test code = Total 5.9 6.4-8.4 L Protein) [facility] CenterGyzkgnkSJUCCEUJR7983-34-39 09:45:00 Test Item Value Reference Range Interpretation Comments eGFR (test code = eGFR) 121 [facility] CenterWyqwxweMPOTMEKDM5742-39-66 09:45:00 Test Item Value Reference Range Interpretation Comments Calcium Lvl (test code = Calcium Lvl) 8.1 8.5-10.5 L [facility] CenterVnlxfhaHCXQELUIW8949-36-77 09:45:00 Test Item Value Reference Range Interpretation Comments Albumin Lvl (test code = Albumin Lvl) 3.3 3.5-5.0 L [facility] CenterMiyoqaqOIQNXVRLI9617-30-70 09:45:00 Test Item Value Reference Range Interpretation Comments Chloride Lvl (test code = Chloride Lvl) 104 95-109 N [facility] CenterLmkihncFIGMSKXEX3174-74-99 09:45:00 Test Item Value Reference Range Interpretation Comments CO2 (test code = CO2) 24 24-32 N [facility] CenterSgddvijPDMZPJISV6237-14-31 09:45:00 Test Item Value Reference Range Interpretation Comments Sodium Lvl (test code = Sodium Lvl) 140 135-145 N [facility] CenterUparcsvKDMYNDSEG1624-14-25 09:45:00 Test Item Value Reference Range Interpretation Comments Potassium Lvl (test code = Potassium 4.2 3.5-5.1 N Lvl) [facility] CenterQgljkqvOBJPQHUZM9156-78-50 09:45:00 Test Item Value Reference Range Interpretation Comments BUN (test code = BUN) 8 7-22 N [facility] CenterBxvjvvoXRJSMQFUN4133-74-45 09:45:00 Test Item Value Reference Range Interpretation Comments Creatinine Lvl (test code = Creatinine 0.6 0.5-1.4 N Lvl) [facility] CenterYcfibguXFXBNXTLW0385-74-35 09:45:00 Test Item Value Reference Range Interpretation Comments Glucose Lvl (test code = Glucose Lvl) 87 70-99 N [facility] CenterStodiasVWNLZHIEN5722-23-51 09:45:00 Test Item Value Reference Range Interpretation Comments A/G Ratio (test code = A/G Ratio) 1.3 0.7-1.6 N [facility] CenterCgojxadOCRWRKLJD1748-15-58 09:45:00 Test Item Value Reference Range Interpretation Comments Globulin (test code = Globulin) 2.6 2.0-4.0 N [facility] CenterWsekbrpLRTQTTCAO3632-16-78 09:45:00 Test Item Value Reference Range Interpretation Comments AGAP (test code = AGAP) 16.2 10.0-20.0 N [facility] CenterNpkdnweWYUVAMUIM9282-69-82 09:45:00 Test Item Value Reference Range Interpretation Comments B/C Ratio (test code = B/C Ratio) 13 6-25 N [facility] CenterQaihdjzFXJCOFSZWV8328-77-76 09:45:00 Test Item Value Reference Range Interpretation Comments Lymphocytes (test code = Lymphocytes) 11.0 20.0-40.0 L [facility] CenterQqvopnqCRCFIXCRLZ9070-74-75 09:45:00 Test Item Value Reference Range Interpretation Comments Segs (test code = Segs) 86.0 45.0-75.0 H [facility] CenterNzwsznwMJENBIAGZZ0328-05-24 09:45:00 Test Item Value Reference Range Interpretation Comments Bands (test code = 1.0 See_Comment N [Automat ed message] The Bands) system which ge nerated this result transmit ashanti reference range : <=11.0. The reference r megan was not used to interpr et this result as carmen l/abnormal. [facility] CenterBcagzcqZTCRUOLVIR0931-41-06 09:45:00 Test Item Value Reference Range Interpretation Comments Lymphocytes # (test code = Lymphocytes 1.6 1.0-5.5 N #) [facility] CenterCkbuvjxPGKCBIEJJF8387-43-59 09:45:00 Test Item Value Reference Range Interpretation Comments Monocytes # (test code 0.0 See_Comment N [Aut omated message] The = Monocytes #) system which generated this result tra nsmitted reference range : <=0.8. The reference r megan was not used to int erpret this result as normal/abnormal . [facility]BaxpshcVBPUZCGBTT9638-02-06 09:45:00 Test Item Value Reference Range Interpretation Comments Segs-Bands # (test code = Segs-Bands #) 13.0 1.5-8.1 H [facility] CenterQmbipwuXADESPSAES5035-52-87 09:45:00 Test Item Value Reference Range Interpretation Comments Plt Morph (test code = Normal (12/11/2012 N Plt Morph) 03:45:00) [facility] CenterXgytzjdSKMTDJLYVI0957-51-60 09:45:00 Test Item Value Reference Range Interpretation Comments Hypochrom (test code = Slight (12/11/2012 N Hypochrom) 03:45:00) [facility] CenterBhgtrdsCZDCEUHQUS5501-52-46 09:45:00 Test Item Value Reference Range Interpretation Comments Myelocytes (test code = Myelocytes) 1.0 H [facility] CenterEeclvcoGJCYOJMWQV9685-87-94 09:45:00 Test Item Value Reference Range Interpretation Comments Atypical Lymphs (test code = Atypical 0.0 N Lymphs) [facility] CenterMgupxhrTGUPFZTCFI6066-79-91 09:45:00 Test Item Value Reference Range Interpretation Comments Monocytes (test code = Monocytes) 0.0 2.0-12.0 L [facility] CenterZpgwntwZZCDLABFGC9714-51-97 09:45:00 Test Item Value Reference Range Interpretation Comments Metamyelocytes (test code 1.0 See_Comment N [ Automated message] = Metamyelocytes) The system which generated this result transmitted ref erence range: <=1.0. T he reference range was not used to int erpret this result as normal/abnormal . [facility] CenterCvctrrmQQVHBVIQFJ3155-03-14 09:45:00 Test Item Value Reference Range Interpretation Comments RDW (test code = RDW) 16.2 11.5-14.5 H [facility] CenterZlequlpGBCBNVWOZA4700-13-78 09:45:00 Test Item Value Reference Range Interpretation Comments Platelet (test code = Platelet) 268 133-450 N [facility] CenterKlaqlvtHOBMPBKRYP0980-27-29 09:45:00 Test Item Value Reference Range Interpretation Comments MPV (test code = MPV) 9.0 7.4-10.4 N [facility] CenterYsgqtfwDDMGNHORXB4017-08-56 09:45:00 Test Item Value Reference Range Interpretation Comments MCV (test code = MCV) 81.2 81.0-99.0 N [facility] CenterVqpmuxwAAXTLGMUTE4120-66-64 09:45:00 Test Item Value Reference Range Interpretation Comments MCH (test code = MCH) 25.7 pg 27.0-31.0 L [facility] CenterQpqxvzfFZWTXMCPBE7293-48-03 09:45:00 Test Item Value Reference Range Interpretation Comments MCHC (test code = MCHC) 31.6 32.0-36.0 L [facility] CenterNqhpdwhFNAPXSEZMT3433-26-26 09:45:00 Test Item Value Reference Range Interpretation Comments WBC (test code = WBC) 15.0 3.7-10.4 H [facility] CenterDmhpckcEAUCIRYMJF5458-49-42 09:45:00 Test Item Value Reference Range Interpretation Comments Hct (test code = Hct) 31.9 36.0-48.0 L [facility] CenterMsmhlztYREFPEWDFO4832-73-71 09:45:00 Test Item Value Reference Range Interpretation Comments Hgb (test code = Hgb) 10.1 12.0-16.0 L [facility] CenterIcslmtrUIESNLXAFX5872-45-10 09:45:00 Test Item Value Reference Range Interpretation Comments RBC (test code = RBC) 3.93 4.20-5.40 L [facility] CenterStlpmfrEPTBBXBPT6247-39-48 09:45:00 Test Item Value Reference Range Interpretation Comments AST (test code = AST) 31 See_Comment N [Auto mated message] The system which ge nerated this result transmit ashanti reference range : <=37. The reference range was not used to interpr et this result as carmen l/abnormal. [facility] CenterDmlkjmfJVCWZQIHQ7419-29-32 09:45:00 Test Item Value Reference Range Interpretation Comments Bili Total (test code = Bili Total) 0.4 0.2-1.3 N [facility] CenterUxkcaqgAVHVLWJLY7808-65-40 09:45:00 Test Item Value Reference Range Interpretation Comments Alk Phos (test code = Alk Phos) 57 39-136 N [facility] CenterJjoeqxqFZWPOQHLW8535-40-14 09:45:00 Test Item Value Reference Range Interpretation Comments ALT (test code = ALT) 35 See_Comment N [Auto mated message] The system which ge nerated this result transmit ashanti reference range : <=65. The reference range was not used to interpr et this result as carmen l/abnormal. [facility] CenterSaxvvsbIGPQALWEZ6936-03-00 09:45:00 Test Item Value Reference Range Interpretation Comments Total Protein (test code = Total 5.9 6.4-8.4 L Protein) [facility] CenterYhyctndLYASWCPKM4219-09-03 09:45:00 Test Item Value Reference Range Interpretation Comments eGFR (test code = eGFR) [address] [place] 269063-03-08 09:45:00 Test Item Value Reference Range Interpretation Comments Calcium Lvl (test code = Calcium Lvl) 8.1 8.5-10.5 L [facility] CenterTzxsfzfREZNNLHQM8646-80-42 09:45:00 Test Item Value Reference Range Interpretation Comments Albumin Lvl (test code = Albumin Lvl) 3.3 3.5-5.0 L [facility] CenterTpiintlWQMEFYLVP1539-36-86 09:45:00 Test Item Value Reference Range Interpretation Comments Chloride Lvl (test code = Chloride Lvl) 104 95-109 N [facility] CenterTphdzowFTYHKKNXK8207-77-52 09:45:00 Test Item Value Reference Range Interpretation Comments CO2 (test code = CO2) 24 24-32 N [facility] CenterSzbmomwIJNVNDKKV4493-61-99 09:45:00 Test Item Value Reference Range Interpretation Comments Sodium Lvl (test code = Sodium Lvl) 140 135-145 N [facility] CenterCuahfkbQLIDUGSPP5817-42-11 09:45:00 Test Item Value Reference Range Interpretation Comments Potassium Lvl (test code = Potassium 4.2 3.5-5.1 N Lvl) [facility] CenterWkckjamOOPKYGLIS1104-06-35 09:45:00 Test Item Value Reference Range Interpretation Comments BUN (test code = BUN) 8 7-22 N [facility] CenterGuxfzghAIHFIGVOD7389-96-14 09:45:00 Test Item Value Reference Range Interpretation Comments Creatinine Lvl (test code = Creatinine 0.6 0.5-1.4 N Lvl) [facility] CenterVqiiqdyJKFROMQLO6070-54-21 09:45:00 Test Item Value Reference Range Interpretation Comments Glucose Lvl (test code = Glucose Lvl) 87 70-99 N [facility] CenterRrvcrjjNGGHUKHZE3926-81-15 09:45:00 Test Item Value Reference Range Interpretation Comments A/G Ratio (test code = A/G Ratio) 1.3 0.7-1.6 N [facility] CenterKhraelmPEWJCGJGF7862-12-00 09:45:00 Test Item Value Reference Range Interpretation Comments Globulin (test code = Globulin) 2.6 2.0-4.0 N [facility] CenterTtrddghESRVEWDQZ5697-18-44 09:45:00 Test Item Value Reference Range Interpretation Comments AGAP (test code = AGAP) 16.2 10.0-20.0 N [place] [address]-03-08 09:45:00 Test Item Value Reference Range Interpretation Comments B/C Ratio (test code = B/C Ratio) 13 6-25 N [facility] CenterEvvjjnwYVZRJZIWTJ9213-12-29 09:45:00 Test Item Value Reference Range Interpretation Comments Lymphocytes (test code = Lymphocytes) 11.0 20.0-40.0 L [facility] CenterAqjtfbxKHYTTUCTKW5409-19-94 09:45:00 Test Item Value Reference Range Interpretation Comments Segs (test code = Segs) 86.0 45.0-75.0 H [facility] CenterOgndtpgEFXNTZXWZX5433-97-80 09:45:00 Test Item Value Reference Range Interpretation Comments Bands (test code = 1.0 See_Comment N [Automat ed message] The Bands) system which ge nerated this result transmit ashanti reference range : <=11.0. The reference r megan was not used to interpr et this result as carmen l/abnormal. [facility] CenterItmurrtSOKFXAZVJU6796-49-01 09:45:00 Test Item Value Reference Range Interpretation Comments Lymphocytes # (test code = Lymphocytes 1.6 1.0-5.5 N #) [facility] CenterDozdzglKCJYCYWYRH3938-73-38 09:45:00 Test Item Value Reference Range Interpretation Comments Monocytes # (test code 0.0 See_Comment N [Aut omated message] The = Monocytes #) system which generated this result tra nsmitted reference range : <=0.8. The reference r megan was not used to int erpret this result as normal/abnormal . [facility] CenterRkbynnoRWBGFFQQZK2314-90-16 09:45:00 Test Item Value Reference Range Interpretation Comments Segs-Bands # (test code = Segs-Bands #) 13.0 1.5-8.1 H [facility] CenterInqxxbnAYVIUSYTYD5069-14-84 09:45:00 Test Item Value Reference Range Interpretation Comments Plt Morph (test code = Normal (12/11/2012 N Plt Morph) 03:45:00) [facility] CenterFuhugqoKDLKVVTKUG0473-11-58 09:45:00 Test Item Value Reference Range Interpretation Comments Hypochrom (test code = Slight (12/11/2012 N Hypochrom) 03:45:00) [facility] CenterRhuwapkVBWFUTBJBR6847-59-06 09:45:00 Test Item Value Reference Range Interpretation Comments Myelocytes (test code = Myelocytes) 1.0 H [facility] CenterOyscdrtJOCFZMQJUW4781-29-91 09:45:00 Test Item Value Reference Range Interpretation Comments Atypical Lymphs (test code = Atypical 0.0 N Lymphs) [facility] CenterKcwbkccZURKVSSFRO2124-78-26 09:45:00 Test Item Value Reference Range Interpretation Comments Monocytes (test code = Monocytes) 0.0 2.0-12.0 L [facility] CenterQczugkfYWQKXPHXLE4046-83-52 09:45:00 Test Item Value Reference Range Interpretation Comments Metamyelocytes (test code 1.0 See_Comment N [ Automated message] = Metamyelocytes) The system which generated this result transmitted ref erence range: <=1.0. T he reference range was not used to int erpret this result as normal/abnormal . [facility] CenterIhytefnWCPIWMJUXN9971-55-47 09:45:00 Test Item Value Reference Range Interpretation Comments RDW (test code = RDW) 16.2 11.5-14.5 H [facility] CenterEtzioueFCWLFEDRHV0907-20-89 09:45:00 Test Item Value Reference Range Interpretation Comments Platelet (test code = Platelet) 268 133-450 N [facility] CenterBctwdxnJZJLKAYFTY2580-33-38 09:45:00 Test Item Value Reference Range Interpretation Comments MPV (test code = MPV) 9.0 7.4-10.4 N [facility] CenterYyjpdcpKBBDSTDOMY4363-62-48 09:45:00 Test Item Value Reference Range Interpretation Comments MCV (test code = MCV) 81.2 81.0-99.0 N [facility] CenterGmijzquKYCFAFBDDE8279-05-79 09:45:00 Test Item Value Reference Range Interpretation Comments MCH (test code = MCH) 25.7 pg 27.0-31.0 L [facility] CenterTwstlilBFHNYXFGAT2331-42-67 09:45:00 Test Item Value Reference Range Interpretation Comments MCHC (test code = MCHC) 31.6 32.0-36.0 L [facility] CenterKsvmhjwQBLFWIVCBJ3398-23-20 09:45:00 Test Item Value Reference Range Interpretation Comments WBC (test code = WBC) 15.0 3.7-10.4 H [facility] CenterLojipglHVKQBKSGGH7087-03-62 09:45:00 Test Item Value Reference Range Interpretation Comments Hct (test code = Hct) 31.9 36.0-48.0 L [facility] CenterAuqtaswXEUEYCJPAD0527-43-13 09:45:00 Test Item Value Reference Range Interpretation Comments Hgb (test code = Hgb) 10.1 12.0-16.0 L [facility] CenterPxhvxdfOWJHJEAZFH2357-70-26 09:45:00 Test Item Value Reference Range Interpretation Comments RBC (test code = RBC) 3.93 4.20-5.40 L [facility] CenterFjakzhmOOQPVOOVX9225-38-95 09:45:00 Test Item Value Reference Range Interpretation Comments AST (test code = AST) 31 See_Comment N [Auto mated message] The system which ge nerated this result transmit ashanti reference range : <=37. The reference range was not used to interpr et this result as carmen l/abnormal. [facility] CenterDcpigktJEZRAYVXH4075-87-05 09:45:00 Test Item Value Reference Range Interpretation Comments Bili Total (test code = Bili Total) 0.4 0.2-1.3 N [facility] CenterHgclyccOTQKSRAFT5758-83-68 09:45:00 Test Item Value Reference Range Interpretation Comments Alk Phos (test code = Alk Phos) 57 39-136 N [facility] CenterPpabfzbMKGCCKSHE8546-42-61 09:45:00 Test Item Value Reference Range Interpretation Comments ALT (test code = ALT) 35 See_Comment N [Auto mated message] The system which ge nerated this result transmit ashanti reference range : <=65. The reference range was not used to interpr et this result as carmen l/abnormal. [facility] CenterToxkrkdNTUXUKZJW0943-33-50 09:45:00 Test Item Value Reference Range Interpretation Comments Total Protein (test code = Total 5.9 6.4-8.4 L Protein) [facility] CenterDqqxfswTEYDMXAFF4397-92-87 09:45:00 Test Item Value Reference Range Interpretation Comments eGFR (test code = eGFR) 121 [facility] CenterWmllfpxKZXOOOXBX4691-55-26 09:45:00 Test Item Value Reference Range Interpretation Comments Calcium Lvl (test code = Calcium Lvl) 8.1 8.5-10.5 L [facility] CenterRixicamQYYRJGXBW3085-15-03 09:45:00 Test Item Value Reference Range Interpretation Comments Albumin Lvl (test code = Albumin Lvl) 3.3 3.5-5.0 L [facility] CenterZriygteNOAJNIRHL3954-82-65 09:45:00 Test Item Value Reference Range Interpretation Comments Chloride Lvl (test code = Chloride Lvl) 104 95-109 N [facility] CenterGplfggyTDAKTMVWB7653-36-62 09:45:00 Test Item Value Reference Range Interpretation Comments CO2 (test code = CO2) 24 24-32 N [facility] CenterWddofxpYYZJDNSSU3359-28-90 09:45:00 Test Item Value Reference Range Interpretation Comments Sodium Lvl (test code = Sodium Lvl) 140 135-145 N [facility] CenterOzfoacuKRJEYXDWS8183-29-89 09:45:00 Test Item Value Reference Range Interpretation Comments Potassium Lvl (test code = Potassium 4.2 3.5-5.1 N Lvl) [facility] CenterOgraukwPQOCTVSJZ5312-97-22 09:45:00 Test Item Value Reference Range Interpretation Comments BUN (test code = BUN) 8 7-22 N [facility] CenterCgbbrtkXXVHTHPSY3493-81-45 09:45:00 Test Item Value Reference Range Interpretation Comments Creatinine Lvl (test code = Creatinine 0.6 0.5-1.4 N Lvl) [facility] CenterFrfhqssDTBULSMQU2936-23-82 09:45:00 Test Item Value Reference Range Interpretation Comments Glucose Lvl (test code = Glucose Lvl) 87 70-99 N [facility] CenterAhwrqumCWZCCUUOI5196-99-21 09:45:00 Test Item Value Reference Range Interpretation Comments A/G Ratio (test code = A/G Ratio) 1.3 0.7-1.6 N [facility] CenterJbhyzkqWFUOQSGJD8632-24-93 09:45:00 Test Item Value Reference Range Interpretation Comments Globulin (test code = Globulin) 2.6 2.0-4.0 N [facility] CenterXflylqzHZFQVVYUR6996-75-84 09:45:00 Test Item Value Reference Range Interpretation Comments AGAP (test code = AGAP) 16.2 10.0-20.0 N [facility] CenterIsnvmolCJKDCNCHD5513-82-88 09:45:00 Test Item Value Reference Range Interpretation Comments B/C Ratio (test code = B/C Ratio) 13 6-25 N [facility] CenterQdfcgzvPKHMGHJZPU2438-65-52 09:45:00 Test Item Value Reference Range Interpretation Comments Lymphocytes (test code = Lymphocytes) 11.0 20.0-40.0 L [facility] CenterSntuukzMOUEPIGLAH2221-64-67 09:45:00 Test Item Value Reference Range Interpretation Comments Segs (test code = Segs) 86.0 45.0-75.0 H [facility] CenterZdkplkuYEENVPPQQP4352-63-19 09:45:00 Test Item Value Reference Range Interpretation Comments Bands (test code = 1.0 See_Comment N [Automat ed message] The Bands) system which ge nerated this result transmit ashanti reference range : <=11.0. The reference r megan was not used to interpr et this result as carmen l/abnormal. [facility] CenterMjxrsgjCZFSUWNMFE7642-58-49 09:45:00 Test Item Value Reference Range Interpretation Comments Lymphocytes # (test code = Lymphocytes 1.6 1.0-5.5 N #) [facility] CenterOgskufaUQELIPIJCH7643-82-24 09:45:00 Test Item Value Reference Range Interpretation Comments Monocytes # (test code 0.0 See_Comment N [Aut omated message] The = Monocytes #) system which generated this result tra nsmitted reference range : <=0.8. The reference r megan was not used to int erpret this result as normal/abnormal . [facility] CenterWeebtwpUOIDSSGHXP5560-91-72 09:45:00 Test Item Value Reference Range Interpretation Comments Segs-Bands # (test code = Segs-Bands #) 13.0 1.5-8.1 H [facility] CenterWaiyeqtVZCSNNIINT7023-44-99 09:45:00 Test Item Value Reference Range Interpretation Comments Plt Morph (test code = Normal (12/11/2012 N Plt Morph) 03:45:00) [facility] CenterBmpuaeyCKDQLWMDWP1778-12-09 09:45:00 Test Item Value Reference Range Interpretation Comments Hypochrom (test code = Slight (12/11/2012 N Hypochrom) 03:45:00) [facility] CenterUntsdlzKMBXAGYJBE5620-31-33 09:45:00 Test Item Value Reference Range Interpretation Comments Myelocytes (test code = Myelocytes) 1.0 H [facility] CenterUjvnrytHBHMVGFQEQ5644-14-00 09:45:00 Test Item Value Reference Range Interpretation Comments Atypical Lymphs (test code = Atypical 0.0 N Lymphs) [facility] CenterXaqdetqWFYMFZGPBS2476-90-78 09:45:00 Test Item Value Reference Range Interpretation Comments Monocytes (test code = Monocytes) 0.0 2.0-12.0 L [facility] CenterYeglkhdPVFGBCVSPI4334-48-87 09:45:00 Test Item Value Reference Range Interpretation Comments Metamyelocytes (test code 1.0 See_Comment N [ Automated message] = Metamyelocytes) The system which generated this result transmitted ref erence range: <=1.0. T he reference range was not used to int erpret this result as normal/abnormal . [facility] CenterLjfpwjdVJGWCCYTTX9840-40-42 09:45:00 Test Item Value Reference Range Interpretation Comments RDW (test code = RDW) 16.2 11.5-14.5 H [facility] CenterLlullpnWDNGAOJDOV1154-18-27 09:45:00 Test Item Value Reference Range Interpretation Comments Platelet (test code = Platelet) 268 133-450 N [facility] CenterCdinihcNSIAESQJNG0311-43-45 09:45:00 Test Item Value Reference Range Interpretation Comments MPV (test code = MPV) 9.0 7.4-10.4 N [facility] CenterOyemxceXXMPRTPAFV7013-68-09 09:45:00 Test Item Value Reference Range Interpretation Comments MCV (test code = MCV) 81.2 81.0-99.0 N [facility] CenterAdlcuvsZLCBLEYGVE6986-06-08 09:45:00 Test Item Value Reference Range Interpretation Comments MCH (test code = MCH) 25.7 pg 27.0-31.0 L [facility] CenterAcbxwteDYUQWJQDQQ5373-29-96 09:45:00 Test Item Value Reference Range Interpretation Comments MCHC (test code = MCHC) 31.6 32.0-36.0 L [facility] CenterCqlyidzXCJZDKNTKN2694-98-06 09:45:00 Test Item Value Reference Range Interpretation Comments WBC (test code = WBC) 15.0 3.7-10.4 H [facility] CenterQgtjremVVRTXEAQBM1876-62-75 09:45:00 Test Item Value Reference Range Interpretation Comments Hct (test code = Hct) 31.9 36.0-48.0 L [facility] CenterJrgmkwyLUPMZIWKPW5899-33-96 09:45:00 Test Item Value Reference Range Interpretation Comments Hgb (test code = Hgb) 10.1 12.0-16.0 L [facility] CenterUtpbjiiMTQLLKAABH8466-73-36 09:45:00 Test Item Value Reference Range Interpretation Comments RBC (test code = RBC) 3.93 4.20-5.40 L [facility] CenterUyidictTMZLESUSK5263-54-89 09:45:00 Test Item Value Reference Range Interpretation Comments AST (test code = AST) 31 See_Comment N [Auto mated message] The system which ge nerated this result transmit ashanti reference range : <=37. The reference range was not used to interpr et this result as carmen l/abnormal. [facility] XshonixYTRTVATNK8420-03-72 09:45:00 Test Item Value Reference Range Interpretation Comments Bili Total (test code = Bili Total) 0.4 0.2-1.3 N [facility] ZgqtpyvDZSHZTPZT7287-56-69 09:45:00 Test Item Value Reference Range Interpretation Comments Alk Phos (test code = Alk Phos) 57 39-136 N [facility] QrfxtjaZXQUGLGPX3949-93-15 09:45:00 Test Item Value Reference Range Interpretation Comments ALT (test code = ALT) 35 See_Comment N [Auto mated message] The system which ge nerated this result transmit ashanti reference range : <=65. The reference range was not used to interpr et this result as carmen l/abnormal. [facility] [place]goVTSULAHGL2453-47-78 09:45:00 Test Item Value Reference Range Interpretation Comments Total Protein (test code = Total 5.9 6.4-8.4 L Protein) [facility]ehp[facility]jGQXSGUJIB9421-[facility]-22 09:45:00 Test Item Value Reference Range Interpretation Comments eGFR (test code = eGFR) 121 [facility] VzowbicFHGVOPLGA9203-53-84 09:45:00 Test Item Value Reference Range Interpretation Comments Calcium Lvl (test code = Calcium Lvl) 8.1 8.5-10.5 L [facility] MfouojcKYXOVGFLJ6853-80-48 09:45:00 Test Item Value Reference Range Interpretation Comments Albumin Lvl (test code = Albumin Lvl) 3.3 3.5-5.0 L [facility] WzczvqrZKTYMNTIR4889-82-30 09:45:00 Test Item Value Reference Range Interpretation Comments Chloride Lvl (test code = Chloride Lvl) 104 95-109 N [facility] KphrkaeCWAYQNOCN8391-38-29 09:45:00 Test Item Value Reference Range Interpretation Comments CO2 (test code = CO2) 24 24-32 N [facility] IdridbsMKNBSRHMD6879-59-50 09:45:00 Test Item Value Reference Range Interpretation Comments Sodium Lvl (test code = Sodium Lvl) 140 135-145 N [facility] SaabihbUBHBVUOMV1328-96-56 09:45:00 Test Item Value Reference Range Interpretation Comments Potassium Lvl (test code = Potassium 4.2 3.5-5.1 N Lvl) [facility] CenterPysipndILXHAEMLJ9549-70-19 09:45:00 Test Item Value Reference Range Interpretation Comments BUN (test code = BUN) 8 7-22 N [facility] CenterExpqljjYJNABOLSW6207-88-60 09:45:00 Test Item Value Reference Range Interpretation Comments Creatinine Lvl (test code = Creatinine 0.6 0.5-1.4 N Lvl) [facility] CenterGmggrpeDQNBVIMWU4610-38-47 09:45:00 Test Item Value Reference Range Interpretation Comments Glucose Lvl (test code = Glucose Lvl) 87 70-99 N [facility] CenterMulacifUIBHGBITH1071-42-38 09:45:00 Test Item Value Reference Range Interpretation Comments A/G Ratio (test code = A/G Ratio) 1.3 0.7-1.6 N [facility] CenterYrbizddZYITWJZHX5485-03-48 09:45:00 Test Item Value Reference Range Interpretation Comments Globulin (test code = Globulin) 2.6 2.0-4.0 N [facility] CenterLzpogxzXOESZNMIL0315-63-49 09:45:00 Test Item Value Reference Range Interpretation Comments AGAP (test code = AGAP) 16.2 10.0-20.0 N [facility] CenterKpfazocHRQOBFMUL0489-29-46 09:45:00 Test Item Value Reference Range Interpretation Comments B/C Ratio (test code = B/C Ratio) 13 6-25 N [facility] CenterMwmxmowUAKKWQIUME6814-86-72 09:45:00 Test Item Value Reference Range Interpretation Comments Lymphocytes (test code = Lymphocytes) 11.0 20.0-40.0 L [facility] CenterYutmxmqWCLJKKCMIF0988-53-29 09:45:00 Test Item Value Reference Range Interpretation Comments Segs (test code = Segs) 86.0 45.0-75.0 H [facility] CenterOmplmxrTNAJDORVCI0599-40-49 09:45:00 Test Item Value Reference Range Interpretation Comments Bands (test code = 1.0 See_Comment N [Automat ed message] The Bands) system which ge nerated this result transmit ashanti reference range : <=11.0. The reference r megan was not used to interpr et this result as carmen l/abnormal. [facility] CenterFenyovxCJSVASONXV1821-15-83 09:45:00 Test Item Value Reference Range Interpretation Comments Lymphocytes # (test code = Lymphocytes 1.6 1.0-5.5 N #) [facility] CenterJsirgxeSVVVWYJQYG6536-97-88 09:45:00 Test Item Value Reference Range Interpretation Comments Monocytes # (test code 0.0 See_Comment N [Aut omated message] The = Monocytes #) system which generated this result tra nsmitted reference range : <=0.8. The reference r megan was not used to int erpret this result as normal/abnormal . [facility] CenterVjpuufbBSSUOIAWDH2017-76-40 09:45:00 Test Item Value Reference Range Interpretation Comments Segs-Bands # (test code = Segs-Bands #) 13.0 1.5-8.1 H [facility] CenterQlrebsmFKODVYRXXR2659-22-58 09:45:00 Test Item Value Reference Range Interpretation Comments Plt Morph (test code = Normal (12/11/2012 N Plt Morph) 03:45:00) [facility] CenterNifnuguAWROSTSCUJ7659-88-92 09:45:00 Test Item Value Reference Range Interpretation Comments Hypochrom (test code = Slight (12/11/2012 N Hypochrom) 03:45:00) [facility] CenterRaibstkBRECDBOTKL1099-95-32 09:45:00 Test Item Value Reference Range Interpretation Comments Myelocytes (test code = Myelocytes) 1.0 H [facility] CenterOrqzictEALJEUOZEF9102-97-00 09:45:00 Test Item Value Reference Range Interpretation Comments Atypical Lymphs (test code = Atypical 0.0 N Lymphs) [facility] CenterRswnribJYGJHEYEMS3745-82-12 09:45:00 Test Item Value Reference Range Interpretation Comments Monocytes (test code = Monocytes) 0.0 2.0-12.0 L [facility] CenterFwavtfqLOSVXDPCZC8980-66-95 09:45:00 Test Item Value Reference Range Interpretation Comments Metamyelocytes (test code 1.0 See_Comment N [ Automated message] = Metamyelocytes) The system which generated this result transmitted ref erence range: <=1.0. T he reference range was not used to int erpret this result as normal/abnormal . [facility]KmuhaskAMIISPKFAE9017-89-45 09:45:00 Test Item Value Reference Range Interpretation Comments RDW (test code = RDW) 16.2 11.5-14.5 H [facility] CenterEibqxiiOZZHCYDEOK4054-43-63 09:45:00 Test Item Value Reference Range Interpretation Comments Platelet (test code = Platelet) 268 133-450 N [facility] CenterJjkhlkpLVNIHDTQVZ3330-86-66 09:45:00 Test Item Value Reference Range Interpretation Comments MPV (test code = MPV) 9.0 7.4-10.4 N [facility] CenterWsthrbdZHYKUTGFGM5556-44-92 09:45:00 Test Item Value Reference Range Interpretation Comments MCV (test code = MCV) 81.2 81.0-99.0 N [facility] CenterMlwgsrjXULRTYNMFH1440-30-62 09:45:00 Test Item Value Reference Range Interpretation Comments MCH (test code = MCH) 25.7 pg 27.0-31.0 L [facility] CenterLuamowsRPKDLIZWWM5106-91-78 09:45:00 Test Item Value Reference Range Interpretation Comments MCHC (test code = MCHC) 31.6 32.0-36.0 L [facility] CenterZshkihbVWTHYEGCWL5608-27-26 09:45:00 Test Item Value Reference Range Interpretation Comments WBC (test code = WBC) 15.0 3.7-10.4 H [facility] CenterNsvsnctDTETQRAWRA0342-20-74 09:45:00 Test Item Value Reference Range Interpretation Comments Hct (test code = Hct) 31.9 36.0-48.0 L [facility] CenterJzkpdsaAISMDWOEWP2922-65-67 09:45:00 Test Item Value Reference Range Interpretation Comments Hgb (test code = Hgb) 10.1 12.0-16.0 L [facility] CenterCitmappFUBCHWAUGU4796-40-54 09:45:00 Test Item Value Reference Range Interpretation Comments RBC (test code = RBC) 3.93 4.20-5.40 L [facility] CenterThldfxdLPSRBLOOI8375-73-71 09:45:00 Test Item Value Reference Range Interpretation Comments AST (test code = AST) 31 See_Comment N [Auto mated message] The system which ge nerated this result transmit ashanti reference range : <=37. The reference range was not used to interpr et this result as carmen l/abnormal. [facility] CenterDgsrijmYQUGHWSQG9193-08-46 09:45:00 Test Item Value Reference Range Interpretation Comments Bili Total (test code = Bili Total) 0.4 0.2-1.3 N [facility] CenterVyezfibFXXSBUSSS6218-06-09 09:45:00 Test Item Value Reference Range Interpretation Comments Alk Phos (test code = Alk Phos) 57 39-136 N [facility] CenterEjmujgqVZSZUGFHA6238-36-98 09:45:00 Test Item Value Reference Range Interpretation Comments ALT (test code = ALT) 35 See_Comment N [Auto mated message] The system which ge nerated this result transmit ashanti reference range : <=65. The reference range was not used to interpr et this result as carmen l/abnormal. [facility] CenterZmlblxzXNZVZINBC3989-24-83 09:45:00 Test Item Value Reference Range Interpretation Comments Total Protein (test code = Total 5.9 6.4-8.4 L Protein) [facility] CenterKcemawdZQWPLVQTH6795-03-26 09:45:00 Test Item Value Reference Range Interpretation Comments eGFR (test code = eGFR) 121 [facility] CenterWjuygtqRDMFHASPU3810-07-25 09:45:00 Test Item Value Reference Range Interpretation Comments Calcium Lvl (test code = Calcium Lvl) 8.1 8.5-10.5 L [facility] CenterNpwmuzaHVURYAUMX5520-88-80 09:45:00 Test Item Value Reference Range Interpretation Comments Albumin Lvl (test code = Albumin Lvl) 3.3 3.5-5.0 L [facility] CenterJembavkXVARVMCHA4488-92-37 09:45:00 Test Item Value Reference Range Interpretation Comments Chloride Lvl (test code = Chloride Lvl) 104 95-109 N [facility] CenterWjrdrdsEMODJGTXC4701-07-24 09:45:00 Test Item Value Reference Range Interpretation Comments CO2 (test code = CO2) 24 24-32 N [facility] CenterAvrzxzfBWMCSKONF0771-17-13 09:45:00 Test Item Value Reference Range Interpretation Comments Sodium Lvl (test code = Sodium Lvl) 140 135-145 N [facility] CenterCdsexcuEZOKNZGLE3848-36-02 09:45:00 Test Item Value Reference Range Interpretation Comments Potassium Lvl (test code = Potassium 4.2 3.5-5.1 N Lvl) [facility] CenterGpnshwgHTPWYVCJA7603-85-37 09:45:00 Test Item Value Reference Range Interpretation Comments BUN (test code = BUN) 8 7-22 N [facility] CenterEeoqrgiHFHLKLUBD4243-30-99 09:45:00 Test Item Value Reference Range Interpretation Comments Creatinine Lvl (test code = Creatinine 0.6 0.5-1.4 N Lvl) [facility] CenterXwnuwxjCGCOTSNNG3766-24-77 09:45:00 Test Item Value Reference Range Interpretation Comments Glucose Lvl (test code = Glucose Lvl) 87 70-99 N [facility] CenterTgkfoqdBJUDSOGMH6577-17-37 09:45:00 Test Item Value Reference Range Interpretation Comments A/G Ratio (test code = A/G Ratio) 1.3 0.7-1.6 N [facility] CenterZpotixtBUFHZCCDO6234-69-56 09:45:00 Test Item Value Reference Range Interpretation Comments Globulin (test code = Globulin) 2.6 2.0-4.0 N [facility] CenterFeokyyjSJPBZPGWK3135-38-08 09:45:00 Test Item Value Reference Range Interpretation Comments AGAP (test code = AGAP) 16.2 10.0-20.0 N [facility] CenterKstflptRWHGPLRMG3502-14-97 09:45:00 Test Item Value Reference Range Interpretation Comments B/C Ratio (test code = B/C Ratio) 13 6-25 N [facility] CenterKefiklhIQOHLJFMTA7101-16-56 09:45:00 Test Item Value Reference Range Interpretation Comments Lymphocytes (test code = Lymphocytes) 11.0 20.0-40.0 L [facility] CenterMumhygaABKHQOTLPG1974-72-89 09:45:00 Test Item Value Reference Range Interpretation Comments Segs (test code = Segs) 86.0 45.0-75.0 H [facility] CenterGkuvppnDWEUGKEXCA9366-97-84 09:45:00 Test Item Value Reference Range Interpretation Comments Bands (test code = 1.0 See_Comment N [Automat ed message] The Bands) system which ge nerated this result transmit ashanti reference range : <=11.0. The reference r megan was not used to interpr et this result as carmen l/abnormal. [facility] CenterYccjdvkKGNQLAOZJU1770-58-91 09:45:00 Test Item Value Reference Range Interpretation Comments Lymphocytes # (test code = Lymphocytes 1.6 1.0-5.5 N #) [facility] CenterIimopnaAUOHOKRQCN5776-68-19 09:45:00 Test Item Value Reference Range Interpretation Comments Monocytes # (test code 0.0 See_Comment N [Aut omated message] The = Monocytes #) system which generated this result tra nsmitted reference range : <=0.8. The reference r megan was not used to int erpret this result as normal/abnormal . [facility] CenterOjnadpdGWGSJWIZNP7534-38-62 09:45:00 Test Item Value Reference Range Interpretation Comments Segs-Bands # (test code = Segs-Bands #) 13.0 1.5-8.1 H [facility] CenterTaxbqcvAHAFMKPSME8198-27-18 09:45:00 Test Item Value Reference Range Interpretation Comments Plt Morph (test code = Normal (12/11/2012 N Plt Morph) 03:45:00) [facility] CenterHldpudhLOXPHHGCLC1620-62-44 09:45:00 Test Item Value Reference Range Interpretation Comments Hypochrom (test code = Slight (12/11/2012 N Hypochrom) 03:45:00) [facility] CenterDhwfsoyZHVTPKYSXR9109-93-57 09:45:00 Test Item Value Reference Range Interpretation Comments Myelocytes (test code = Myelocytes) 1.0 H [facility] CenterBzburikGXSZECJNAN3917-82-99 09:45:00 Test Item Value Reference Range Interpretation Comments Atypical Lymphs (test code = Atypical 0.0 N Lymphs) [facility] CenterGvdmkurIRZQTZWFVV3688-86-14 09:45:00 Test Item Value Reference Range Interpretation Comments Monocytes (test code = Monocytes) 0.0 2.0-12.0 L [facility] CenterUgsdvqbWNARYKOBSY9464-77-15 09:45:00 Test Item Value Reference Range Interpretation Comments Metamyelocytes (test code 1.0 See_Comment N [ Automated message] = Metamyelocytes) The system which generated this result transmitted ref erence range: <=1.0. T he reference range was not used to int erpret this result as normal/abnormal . [facility] CenterIhynoysTNIKGJHFYZ5916-41-14 09:45:00 Test Item Value Reference Range Interpretation Comments RDW (test code = RDW) 16.2 11.5-14.5 H [facility] CenterIcqakhbDDIUFSYVGZ3362-77-03 09:45:00 Test Item Value Reference Range Interpretation Comments Platelet (test code = Platelet) 268 133-450 N [facility] CenterHzepvouYPFVSOFJLL0206-20-85 09:45:00 Test Item Value Reference Range Interpretation Comments MPV (test code = MPV) 9.0 7.4-10.4 N [facility] CenterTjgakqiBLYHWGUFWO5970-30-98 09:45:00 Test Item Value Reference Range Interpretation Comments MCV (test code = MCV) 81.2 81.0-99.0 N [facility]VgbubwrSDZHTHRPX5867-04-61 09:45:00 Test Item Value Reference Range Interpretation Comments AST (test code = AST) 31 See_Comment N [Auto mated message] The system which ge nerated this result transmit ashanti reference range : <=37. The reference range was not used to interpr et this result as carmen l/abnormal. [facility]FqirmieYNOKHCMEED6527-40-03 09:45:00 Test Item Value Reference Range Interpretation Comments MCH (test code = MCH) 25.7 pg 27.0-31.0 L [facility] CenterIfenftcOIXIKJZKJP5154-51-14 09:45:00 Test Item Value Reference Range Interpretation Comments MCHC (test code = MCHC) 31.6 32.0-36.0 L [facility] CenterYnvfextRYYEQEROAT6877-72-56 09:45:00 Test Item Value Reference Range Interpretation Comments WBC (test code = WBC) 15.0 3.7-10.4 H [facility] HospitalRchgnltNEUGEMSRHN7031-51-80 09:45:00 Test Item Value Reference Range Interpretation Comments Hct (test code = Hct) 31.9 36.0-48.0 L [facility] HospitalHtjpzgzELSPMMLVLC3913-41-55 09:45:00 Test Item Value Reference Range Interpretation Comments Hgb (test code = Hgb) 10.1 12.0-16.0 L [facility] HospitalSdlmfehLIHVJXUAPD6863-11-13 09:45:00 Test Item Value Reference Range Interpretation Comments RBC (test code = RBC) 3.93 4.20-5.40 L [facility] CenterUnhmjjxQOXLDXDCT5126-42-10 09:45:00 Test Item Value Reference Range Interpretation Comments Bili Total (test code = Bili Total) 0.4 0.2-1.3 N [facility] HospitalHaqiitqEVMZTPKDM4787-95-01 09:45:00 Test Item Value Reference Range Interpretation Comments AST (test code = AST) 31 See_Comment N [Auto mated message] The system which ge nerated this result transmit ashanti reference range : <=37. The reference range was not used to interpr et this result as carmen l/abnormal. [facility] CenterZhasqiqQIZPATIGX2838-20-02 09:45:00 Test Item Value Reference Range Interpretation Comments Bili Total (test code = Bili Total) 0.4 0.2-1.3 N [facility] CenterSzuoawxVOOBLSKIT7894-35-49 09:45:00 Test Item Value Reference Range Interpretation Comments Alk Phos (test code = Alk Phos) 57 39-136 N [facility] CenterVxzjffsSPXMFHWNK6891-89-80 09:45:00 Test Item Value Reference Range Interpretation Comments ALT (test code = ALT) 35 See_Comment N [Auto mated message] The system which ge nerated this result transmit ashanti reference range : <=65. The reference range was not used to interpr et this result as carmen l/abnormal. [facility] CenterRdrrtfiFAAAZLYAE9965-72-15 09:45:00 Test Item Value Reference Range Interpretation Comments Total Protein (test code = Total 5.9 6.4-8.4 L Protein) [facility] CenterKsshxknNTRVAFOGW4058-12-56 09:45:00 Test Item Value Reference Range Interpretation Comments eGFR (test code = eGFR) 121 [facility] CenterChgqzupKAIKNXLZI4754-03-94 09:45:00 Test Item Value Reference Range Interpretation Comments Calcium Lvl (test code = Calcium Lvl) 8.1 8.5-10.5 L [facility] CenterBvywalpIYHKLSIKD7479-47-27 09:45:00 Test Item Value Reference Range Interpretation Comments Albumin Lvl (test code = Albumin Lvl) 3.3 3.5-5.0 L [facility] CenterZhenkafXAZVTKHDX8873-80-24 09:45:00 Test Item Value Reference Range Interpretation Comments Chloride Lvl (test code = Chloride Lvl) 104 95-109 N [facility] CenterJvxysuiPFSBIOXDU1509-19-31 09:45:00 Test Item Value Reference Range Interpretation Comments CO2 (test code = CO2) 24 24-32 N [facility] CenterTnrbdpkVUQHFEUZL8538-04-12 09:45:00 Test Item Value Reference Range Interpretation Comments Sodium Lvl (test code = Sodium Lvl) 140 135-145 N [facility] CenterAcwzjqvUFOFKUEIF6576-22-55 09:45:00 Test Item Value Reference Range Interpretation Comments Potassium Lvl (test code = Potassium 4.2 3.5-5.1 N Lvl) [facility] CenterYtdetciNIWPSKYDU1056-86-41 09:45:00 Test Item Value Reference Range Interpretation Comments BUN (test code = BUN) 8 7-22 N [facility] CenterTbyigdoHGRJMMQAI9149-09-98 09:45:00 Test Item Value Reference Range Interpretation Comments AST (test code = AST) 31 See_Comment N [Auto mated message] The system which ge nerated this result transmit ashanti reference range : <=37. The reference range was not used to interpr et this result as carmen l/abnormal. [facility] CenterPtwiqfxWZCTAPLLP9979-96-71 09:45:00 Test Item Value Reference Range Interpretation Comments Creatinine Lvl (test code = Creatinine 0.6 0.5-1.4 N Lvl) [facility] CenterWdfpkxnXEXLXIRKE2411-28-34 09:45:00 Test Item Value Reference Range Interpretation Comments Glucose Lvl (test code = Glucose Lvl) 87 70-99 N [facility] CenterWexvqmtMGBXHZKLN1455-25-56 09:45:00 Test Item Value Reference Range Interpretation Comments A/G Ratio (test code = A/G Ratio) 1.3 0.7-1.6 N [facility] CenterVrmkuhhTWAMTOGOE4033-05-35 09:45:00 Test Item Value Reference Range Interpretation Comments Globulin (test code = Globulin) 2.6 2.0-4.0 N [facility] CenterPlnlzpfQWWPNGBNJ6440-91-61 09:45:00 Test Item Value Reference Range Interpretation Comments AGAP (test code = AGAP) 16.2 10.0-20.0 N [facility] CenterSmewtyuIKNFAVSZQ0706-28-33 09:45:00 Test Item Value Reference Range Interpretation Comments B/C Ratio (test code = B/C Ratio) 13 6-25 N [facility] CenterBhueabdYWQBQUYDBD2557-26-27 09:45:00 Test Item Value Reference Range Interpretation Comments Lymphocytes (test code = Lymphocytes) 11.0 20.0-40.0 L [facility] CenterYcwyzonPQKTKZYOKS1441-61-16 09:45:00 Test Item Value Reference Range Interpretation Comments Segs (test code = Segs) 86.0 45.0-75.0 H [facility] CenterArjunbpGSODCOMGAZ7807-74-06 09:45:00 Test Item Value Reference Range Interpretation Comments Bands (test code = 1.0 See_Comment N [Automat ed message] The Bands) system which ge nerated this result transmit ashanti reference range : <=11.0. The reference r megan was not used to interpr et this result as carmen l/abnormal. [facility] CenterLgxbztuUJOKKQMYCT2811-73-42 09:45:00 Test Item Value Reference Range Interpretation Comments Lymphocytes # (test code = Lymphocytes 1.6 1.0-5.5 N #) [facility] CenterLyevsksGUAVIUEPK1058-36-67 09:45:00 Test Item Value Reference Range Interpretation Comments Bili Total (test code = Bili Total) 0.4 0.2-1.3 N [facility] CenterMtpwnyaLOAEKDJULA8204-64-93 09:45:00 Test Item Value Reference Range Interpretation Comments Monocytes # (test code 0.0 See_Comment N [Aut omated message] The = Monocytes #) system which generated this result tra nsmitted reference range : <=0.8. The reference r megan was not used to int erpret this result as normal/abnormal . [facility] CenterNiwseiyECJHAHLBZY4869-81-59 09:45:00 Test Item Value Reference Range Interpretation Comments Segs-Bands # (test code = Segs-Bands #) 13.0 1.5-8.1 H [facility] CenterWpxckfnDXOFZNOYSC3999-43-66 09:45:00 Test Item Value Reference Range Interpretation Comments Plt Morph (test code = Normal (12/11/2012 N Plt Morph) 03:45:00) [facility] CenterGtjhcyvXIDTWZDGGD3971-67-97 09:45:00 Test Item Value Reference Range Interpretation Comments Hypochrom (test code = Slight (12/11/2012 N Hypochrom) 03:45:00) [facility] CenterUvcuvrtRATECLQITJ5190-83-07 09:45:00 Test Item Value Reference Range Interpretation Comments Myelocytes (test code = Myelocytes) 1.0 H [facility] CenterSscgkmoOOXYBSDTCX1594-78-67 09:45:00 Test Item Value Reference Range Interpretation Comments Atypical Lymphs (test code = Atypical 0.0 N Lymphs) [facility] CenterDlqqbyfFJIDHYCHWB9582-44-37 09:45:00 Test Item Value Reference Range Interpretation Comments Monocytes (test code = Monocytes) 0.0 2.0-12.0 L [facility] CenterNujhohuBHUXKHMVMA2425-08-36 09:45:00 Test Item Value Reference Range Interpretation Comments Metamyelocytes (test code 1.0 See_Comment N [ Automated message] = Metamyelocytes) The system which generated this result transmitted ref erence range: <=1.0. T he reference range was not used to int erpret this result as normal/abnormal . [facility] CenterOimvxdjZFAIHLLMWD7628-69-12 09:45:00 Test Item Value Reference Range Interpretation Comments RDW (test code = RDW) 16.2 11.5-14.5 H [facility] CenterGedaqjuDTFDINKFPT9610-89-04 09:45:00 Test Item Value Reference Range Interpretation Comments Platelet (test code = Platelet) 268 133-450 N [facility] CenterSgvgbirGDYWBXBDL2368-17-54 09:45:00 Test Item Value Reference Range Interpretation Comments Alk Phos (test code = Alk Phos) 57 39-136 N [facility] CenterUikxudpIXPHMTTARX9749-81-56 09:45:00 Test Item Value Reference Range Interpretation Comments MPV (test code = MPV) 9.0 7.4-10.4 N [facility] CenterHnpwwqvYGUXTTMAPU6339-67-77 09:45:00 Test Item Value Reference Range Interpretation Comments MCV (test code = MCV) 81.2 81.0-99.0 N [facility] CenterLqzccjmDSGRBPKHEP1548-71-33 09:45:00 Test Item Value Reference Range Interpretation Comments MCH (test code = MCH) 25.7 pg 27.0-31.0 L [facility] CenterElmmlyhGKIWQIGSQN8993-31-69 09:45:00 Test Item Value Reference Range Interpretation Comments MCHC (test code = MCHC) 31.6 32.0-36.0 L [facility] CenterHyuqbcqYHDBOFSNQX2926-07-82 09:45:00 Test Item Value Reference Range Interpretation Comments WBC (test code = WBC) 15.0 3.7-10.4 H [facility] CenterAyjaguaQRAXKXYKNP4855-29-95 09:45:00 Test Item Value Reference Range Interpretation Comments Hct (test code = Hct) 31.9 36.0-48.0 L [facility] CenterLsdfodsKGAZSVLYWY5464-36-97 09:45:00 Test Item Value Reference Range Interpretation Comments Hgb (test code = Hgb) 10.1 12.0-16.0 L [facility] CenterEogzorfVSLSBILWLW9666-62-03 09:45:00 Test Item Value Reference Range Interpretation Comments RBC (test code = RBC) 3.93 4.20-5.40 L [facility] CenterTuubodpBBRYOOPZM1398-91-89 09:45:00 Test Item Value Reference Range Interpretation Comments ALT (test code = ALT) 35 See_Comment N [Auto mated message] The system which ge nerated this result transmit ashanti reference range : <=65. The reference range was not used to interpr et this result as carmen l/abnormal. [facility] CenterUiapezkRYQEMFLLJ1593-03-86 09:45:00 Test Item Value Reference Range Interpretation Comments Total Protein (test code = Total 5.9 6.4-8.4 L Protein) [facility] CenterNbxyoswVPZQOZVTV1064-85-86 09:45:00 Test Item Value Reference Range Interpretation Comments Alk Phos (test code = Alk Phos) 57 39-136 N [facility] CenterSkrjpheJFWQMYOQO8627-92-17 09:45:00 Test Item Value Reference Range Interpretation Comments eGFR (test code = eGFR) 121 [facility] CenterMlsucysSYROKVDOU2017-44-48 09:45:00 Test Item Value Reference Range Interpretation Comments Calcium Lvl (test code = Calcium Lvl) 8.1 8.5-10.5 L [facility] CenterSmuvfmdMEKJMMBWA3651-58-65 09:45:00 Test Item Value Reference Range Interpretation Comments Albumin Lvl (test code = Albumin Lvl) 3.3 3.5-5.0 L [facility] CenterOmtlrrsTBYXJMUDV8225-49-49 09:45:00 Test Item Value Reference Range Interpretation Comments Chloride Lvl (test code = Chloride Lvl) 104 95-109 N [facility] CenterPtadwcoQHQIPFEMK4405-14-24 09:45:00 Test Item Value Reference Range Interpretation Comments CO2 (test code = CO2) 24 24-32 N [facility] CenterAzyqitaCFUSUQHGV8482-59-66 09:45:00 Test Item Value Reference Range Interpretation Comments Sodium Lvl (test code = Sodium Lvl) 140 135-145 N [facility] CenterTopvuxeXWGIQCQBQ3338-30-72 09:45:00 Test Item Value Reference Range Interpretation Comments Potassium Lvl (test code = Potassium 4.2 3.5-5.1 N Lvl) [facility] CenterDcdxdizYKTJDCEOB7529-16-46 09:45:00 Test Item Value Reference Range Interpretation Comments BUN (test code = BUN) 8 7-22 N [facility] CenterCkelzlaGUEERSQZR0444-37-25 09:45:00 Test Item Value Reference Range Interpretation Comments Creatinine Lvl (test code = Creatinine 0.6 0.5-1.4 N Lvl) [facility] CenterIuzvoxpHRMEOFUGT1597-18-14 09:45:00 Test Item Value Reference Range Interpretation Comments Glucose Lvl (test code = Glucose Lvl) 87 70-99 N [facility] CenterPadysdmOJTOWYMSV3523-66-30 09:45:00 Test Item Value Reference Range Interpretation Comments ALT (test code = ALT) 35 See_Comment N [Auto mated message] The system which ge nerated this result transmit ashanti reference range : <=65. The reference range was not used to interpr et this result as carmen l/abnormal. [facility] CenterBhuflblNPZCZRZLX3871-63-36 09:45:00 Test Item Value Reference Range Interpretation Comments A/G Ratio (test code = A/G Ratio) 1.3 0.7-1.6 N [facility] CenterCnsqohmETWVKIRMP7864-89-09 09:45:00 Test Item Value Reference Range Interpretation Comments AST (test code = AST) 31 See_Comment N [Auto mated message] The system which ge nerated this result transmit ashanti reference range : <=37. The reference range was not used to interpr et this result as carmen l/abnormal. [facility] CenterTupqqamCUZKWQFRB8417-90-38 09:45:00 Test Item Value Reference Range Interpretation Comments Globulin (test code = Globulin) 2.6 2.0-4.0 N [facility] RewgkotWVRQRUFMN7661-31-51 09:45:00 Test Item Value Reference Range Interpretation Comments Bili Total (test code = Bili Total) 0.4 0.2-1.3 N [facility] WaorkazMGIVYNLDU9853-52-83 09:45:00 Test Item Value Reference Range Interpretation Comments Alk Phos (test code = Alk Phos) 57 39-136 N [facility] EybyovjHAYDAJDRT4964-51-06 09:45:00 Test Item Value Reference Range Interpretation Comments ALT (test code = ALT) 35 See_Comment N [Auto mated message] The system which ge nerated this result transmit ashanti reference range : <=65. The reference range was not used to interpr et this result as carmen l/abnormal. [facility] UxvnrjoVFKBYWKMX6564-22-71 09:45:00 Test Item Value Reference Range Interpretation Comments Total Protein (test code = Total 5.9 6.4-8.4 L Protein) [facility] CenterDqncdxdCNFREERBC6406-94-59 09:45:00 Test Item Value Reference Range Interpretation Comments eGFR (test code = eGFR) 121 [facility] CenterNhsmkwvWJIFXEABX4115-26-22 09:45:00 Test Item Value Reference Range Interpretation Comments Calcium Lvl (test code = Calcium Lvl) 8.1 8.5-10.5 L [facility] CenterDsnutadHFIOGUEUT0658-50-43 09:45:00 Test Item Value Reference Range Interpretation Comments Albumin Lvl (test code = Albumin Lvl) 3.3 3.5-5.0 L [facility] CenterBpqyxvmTYBRKWRMP0035-47-31 09:45:00 Test Item Value Reference Range Interpretation Comments Chloride Lvl (test code = Chloride Lvl) 104 95-109 N [facility] CenterMynytfgHUJGTSZPK7545-30-24 09:45:00 Test Item Value Reference Range Interpretation Comments CO2 (test code = CO2) 24 24-32 N [facility] CenterBkqpyqkVHTUNAKHS3504-45-66 09:45:00 Test Item Value Reference Range Interpretation Comments Sodium Lvl (test code = Sodium Lvl) 140 135-145 N [facility] CenterWvamlxrDQUXNOOYN7528-88-32 09:45:00 Test Item Value Reference Range Interpretation Comments AGAP (test code = AGAP) 16.2 10.0-20.0 N [facility] CenterXieyjgyZHKISQTMM6136-54-70 09:45:00 Test Item Value Reference Range Interpretation Comments Potassium Lvl (test code = Potassium 4.2 3.5-5.1 N Lvl) [facility] CenterPjmxkbxHGNJEXFEJ1940-95-52 09:45:00 Test Item Value Reference Range Interpretation Comments BUN (test code = BUN) 8 7-22 N [facility] CenterPdnnpxcOQBAPHFAD2980-02-89 09:45:00 Test Item Value Reference Range Interpretation Comments Creatinine Lvl (test code = Creatinine 0.6 0.5-1.4 N Lvl) [facility] CenterQiubjanCLAICZXSF8277-15-42 09:45:00 Test Item Value Reference Range Interpretation Comments Glucose Lvl (test code = Glucose Lvl) 87 70-99 N [facility] CenterEjszjsySGUFDUMYU5640-59-91 09:45:00 Test Item Value Reference Range Interpretation Comments A/G Ratio (test code = A/G Ratio) 1.3 0.7-1.6 N [facility] CenterAvbrhmyIZUIRWRDA0036-55-54 09:45:00 Test Item Value Reference Range Interpretation Comments Globulin (test code = Globulin) 2.6 2.0-4.0 N [facility] CenterJtpdwxtJWDGMXQHK7669-06-72 09:45:00 Test Item Value Reference Range Interpretation Comments AGAP (test code = AGAP) 16.2 10.0-20.0 N [facility] CenterYsbqbarYRKUKAAEB0856-21-40 09:45:00 Test Item Value Reference Range Interpretation Comments B/C Ratio (test code = B/C Ratio) 13 6-25 N [facility]HtbsdnkNYMFUJLUXF9709-69-27 09:45:00 Test Item Value Reference Range Interpretation Comments Lymphocytes (test code = Lymphocytes) 11.0 20.0-40.0 L [facility] CenterQgeelsmBMAZQXNTOF2212-34-76 09:45:00 Test Item Value Reference Range Interpretation Comments Segs (test code = Segs) 86.0 45.0-75.0 H [facility] CenterNiqmkkgGBXKOENVR9034-15-97 09:45:00 Test Item Value Reference Range Interpretation Comments B/C Ratio (test code = B/C Ratio) 13 6-25 N [facility] CenterTdgfxwyBWABHESNBJ0897-07-64 09:45:00 Test Item Value Reference Range Interpretation Comments Bands (test code = 1.0 See_Comment N [Automat ed message] The Bands) system which ge nerated this result transmit ashanti reference range : <=11.0. The reference r megan was not used to interpr et this result as carmen l/abnormal. [facility] CenterUaxnpyeHJNRJTAPBD0986-58-60 09:45:00 Test Item Value Reference Range Interpretation Comments Lymphocytes # (test code = Lymphocytes 1.6 1.0-5.5 N #) [facility] CenterKbwdmkdTYXWNSDNKL4342-29-47 09:45:00 Test Item Value Reference Range Interpretation Comments Monocytes # (test code 0.0 See_Comment N [Aut omated message] The = Monocytes #) system which generated this result tra nsmitted reference range : <=0.8. The reference r megan was not used to int erpret this result as normal/abnormal . [facility] CenterLbhizzoCSIVRWJVHR0541-68-24 09:45:00 Test Item Value Reference Range Interpretation Comments Segs-Bands # (test code = Segs-Bands #) 13.0 1.5-8.1 H [facility] CenterHnfiihhMMVNXORLMC1153-13-83 09:45:00 Test Item Value Reference Range Interpretation Comments Plt Morph (test code = Normal (12/11/2012 N Plt Morph) 03:45:00) [facility] CenterGiiqjejSTANACRTPW1209-54-64 09:45:00 Test Item Value Reference Range Interpretation Comments Hypochrom (test code = Slight (12/11/2012 N Hypochrom) 03:45:00) [facility] CenterJioefspIGDHFJASWC2870-38-90 09:45:00 Test Item Value Reference Range Interpretation Comments Myelocytes (test code = Myelocytes) 1.0 H [facility] CenterPtitraoZEIOGRBHQD2108-58-48 09:45:00 Test Item Value Reference Range Interpretation Comments Atypical Lymphs (test code = Atypical 0.0 N Lymphs) [facility] CenterCgjyplcAISYZAIRZD3287-20-23 09:45:00 Test Item Value Reference Range Interpretation Comments Monocytes (test code = Monocytes) 0.0 2.0-12.0 L [facility] CenterFuhaewyWQPTRKZJQH8469-85-95 09:45:00 Test Item Value Reference Range Interpretation Comments Metamyelocytes (test code 1.0 See_Comment N [ Automated message] = Metamyelocytes) The system which generated this result transmitted ref erence range: <=1.0. T he reference range was not used to int erpret this result as normal/abnormal . [facility] CenterTgcdwieNKJDUJHVSU8330-25-22 09:45:00 Test Item Value Reference Range Interpretation Comments Lymphocytes (test code = Lymphocytes) 11.0 20.0-40.0 L [facility] CenterShztnufOYOZGLJKTP4537-35-92 09:45:00 Test Item Value Reference Range Interpretation Comments RDW (test code = RDW) 16.2 11.5-14.5 H [facility] CenterWazpmxiDYPGQGIYFA0468-21-83 09:45:00 Test Item Value Reference Range Interpretation Comments Platelet (test code = Platelet) 268 133-450 N [facility] CenterKvausmuQGMIBBTEUW7317-57-71 09:45:00 Test Item Value Reference Range Interpretation Comments MPV (test code = MPV) 9.0 7.4-10.4 N [facility] CenterYgtlzmqFSDZYMWZPY2515-25-23 09:45:00 Test Item Value Reference Range Interpretation Comments MCV (test code = MCV) 81.2 81.0-99.0 N [facility] CenterQmvsxywESEBUNORHJ6548-54-95 09:45:00 Test Item Value Reference Range Interpretation Comments MCH (test code = MCH) 25.7 pg 27.0-31.0 L [facility] CenterJeycuphIJAKIVBQPD9041-02-66 09:45:00 Test Item Value Reference Range Interpretation Comments MCHC (test code = MCHC) 31.6 32.0-36.0 L [facility] CenterSrjpdsxEPOKIJSIEF2414-09-38 09:45:00 Test Item Value Reference Range Interpretation Comments WBC (test code = WBC) 15.0 3.7-10.4 H [facility] CenterKarzoafCVTUYJMVGQ0074-55-04 09:45:00 Test Item Value Reference Range Interpretation Comments Hct (test code = Hct) 31.9 36.0-48.0 L [facility] CenterVizbarqRXTDLASUCT5829-56-47 09:45:00 Test Item Value Reference Range Interpretation Comments Hgb (test code = Hgb) 10.1 12.0-16.0 L [facility] CenterWxlrvnsLCWNYOCKGA1558-70-62 09:45:00 Test Item Value Reference Range Interpretation Comments RBC (test code = RBC) 3.93 4.20-5.40 L [facility] CenterYysuxdhWRWKFASPTQ6191-53-86 09:45:00 Test Item Value Reference Range Interpretation Comments Segs (test code = Segs) 86.0 45.0-75.0 H [facility] CenterGrsvxcdDUZMSDFWWX5989-20-40 09:45:00 Test Item Value Reference Range Interpretation Comments Bands (test code = 1.0 See_Comment N [Automat ed message] The Bands) system which ge nerated this result transmit ashanti reference range : <=11.0. The reference r megan was not used to interpr et this result as carmen l/abnormal. [facility] CenterPanvhvhUREMNNTRTX4827-92-58 09:45:00 Test Item Value Reference Range Interpretation Comments Lymphocytes # (test code = Lymphocytes 1.6 1.0-5.5 N #) [facility] CenterKejjnymEKMQFXJDZS8308-87-24 09:45:00 Test Item Value Reference Range Interpretation Comments Monocytes # (test code 0.0 See_Comment N [Aut omated message] The = Monocytes #) system which generated this result tra nsmitted reference range : <=0.8. The reference r megan was not used to int erpret this result as normal/abnormal . [facility] CenterZhzosrbBDQFRHDWHZ0874-44-53 09:45:00 Test Item Value Reference Range Interpretation Comments Segs-Bands # (test code = Segs-Bands #) 13.0 1.5-8.1 H [facility] CenterNcftegcWMUCMSZMO6270-43-88 09:45:00 Test Item Value Reference Range Interpretation Comments Total Protein (test code = Total 5.9 6.4-8.4 L Protein) [facility] CenterGddyjfbBGXIPZODNF0458-63-02 09:45:00 Test Item Value Reference Range Interpretation Comments Plt Morph (test code = Normal (12/11/2012 N Plt Morph) 03:45:00) [facility] CenterTbfzfchEJMWERIRUT1379-86-72 09:45:00 Test Item Value Reference Range Interpretation Comments Hypochrom (test code = Slight (12/11/2012 N Hypochrom) 03:45:00) [facility] CenterHwbrzhaBHUNZVXMOK4038-60-32 09:45:00 Test Item Value Reference Range Interpretation Comments Myelocytes (test code = Myelocytes) 1.0 H [facility] CenterNahltruGRQWMJQJNT1258-42-48 09:45:00 Test Item Value Reference Range Interpretation Comments Atypical Lymphs (test code = Atypical 0.0 N Lymphs) [facility] CenterYlyibhiYBLEIWVRAN9540-20-79 09:45:00 Test Item Value Reference Range Interpretation Comments Monocytes (test code = Monocytes) 0.0 2.0-12.0 L [facility] CenterTeozsurZIVOXZZZAQ0634-21-29 09:45:00 Test Item Value Reference Range Interpretation Comments Metamyelocytes (test code 1.0 See_Comment N [ Automated message] = Metamyelocytes) The system which generated this result transmitted ref erence range: <=1.0. T he reference range was not used to int erpret this result as normal/abnormal . [facility] CenterHszabhtGYZSYOSVCY5222-66-20 09:45:00 Test Item Value Reference Range Interpretation Comments RDW (test code = RDW) 16.2 11.5-14.5 H [facility] CenterCyovadwYLXNGPTQJG8428-90-59 09:45:00 Test Item Value Reference Range Interpretation Comments Platelet (test code = Platelet) 268 133-450 N [facility] CenterBrtgpzjNLRRBZDOPB7046-81-72 09:45:00 Test Item Value Reference Range Interpretation Comments MPV (test code = MPV) 9.0 7.4-10.4 N [facility] CenterLryxbwmJAWHXAQGV5825-25-52 09:45:00 Test Item Value Reference Range Interpretation Comments AST (test code = AST) 31 See_Comment N [Auto mated message] The system which ge nerated this result transmit ashanti reference range : <=37. The reference range was not used to interpr et this result as carmen l/abnormal. [facility] CenterUivgvhdVDQKQPCEB9067-10-97 09:45:00 Test Item Value Reference Range Interpretation Comments Bili Total (test code = Bili Total) 0.4 0.2-1.3 N [facility] CenterWobsqcyVNSMSHLVX9706-05-65 09:45:00 Test Item Value Reference Range Interpretation Comments Alk Phos (test code = Alk Phos) 57 39-136 N [facility] CenterVrcuzlmPVILWUEDL0131-44-22 09:45:00 Test Item Value Reference Range Interpretation Comments ALT (test code = ALT) 35 See_Comment N [Auto mated message] The system which ge nerated this result transmit ashanti reference range : <=65. The reference range was not used to interpr et this result as carmen l/abnormal. [facility] CenterSdusccxHNIWCBEBO3548-85-82 09:45:00 Test Item Value Reference Range Interpretation Comments Total Protein (test code = Total 5.9 6.4-8.4 L Protein) [facility] CenterFdobyrnMYRHGOIDZ5899-02-25 09:45:00 Test Item Value Reference Range Interpretation Comments eGFR (test code = eGFR) 121 [facility] CenterBlsimynIPEZXNVCB5828-64-00 09:45:00 Test Item Value Reference Range Interpretation Comments Calcium Lvl (test code = Calcium Lvl) 8.1 8.5-10.5 L [facility] CenterQypeygcZBVTYLALM7942-49-76 09:45:00 Test Item Value Reference Range Interpretation Comments Albumin Lvl (test code = Albumin Lvl) 3.3 3.5-5.0 L [facility] CenterYrxufizELQBWKXWR3917-67-96 09:45:00 Test Item Value Reference Range Interpretation Comments Chloride Lvl (test code = Chloride Lvl) 104 95-109 N [facility] CenterJpypknpWWVIUVPMZN0523-24-42 09:45:00 Test Item Value Reference Range Interpretation Comments MCV (test code = MCV) 81.2 81.0-99.0 N [facility] CenterDjrqgrwZXXCFVZLP0314-47-52 09:45:00 Test Item Value Reference Range Interpretation Comments CO2 (test code = CO2) 24 24-32 N [facility] CenterOvkfxrgEFIQPGUGZ2261-74-75 09:45:00 Test Item Value Reference Range Interpretation Comments Sodium Lvl (test code = Sodium Lvl) 140 135-145 N [facility] CenterMjoscpqTAAJXRMOP6466-16-29 09:45:00 Test Item Value Reference Range Interpretation Comments Potassium Lvl (test code = Potassium 4.2 3.5-5.1 N Lvl) [facility] CenterOxcaooqPQSKCGUTC4764-12-64 09:45:00 Test Item Value Reference Range Interpretation Comments BUN (test code = BUN) 8 7-22 N [facility] CenterWvbxoyyBPFNEAFCX3562-50-32 09:45:00 Test Item Value Reference Range Interpretation Comments Creatinine Lvl (test code = Creatinine 0.6 0.5-1.4 N Lvl) [facility] CenterUxagydfROYZKMKSW2195-79-71 09:45:00 Test Item Value Reference Range Interpretation Comments Glucose Lvl (test code = Glucose Lvl) 87 70-99 N [facility] CenterEgbsualTSBSUDLPG2859-41-19 09:45:00 Test Item Value Reference Range Interpretation Comments A/G Ratio (test code = A/G Ratio) 1.3 0.7-1.6 N [facility] CenterHlxsoxcTLPWENZIR6322-14-79 09:45:00 Test Item Value Reference Range Interpretation Comments Globulin (test code = Globulin) 2.6 2.0-4.0 N [facility] CenterBrvcusdLEDDYBTTN3314-90-01 09:45:00 Test Item Value Reference Range Interpretation Comments AGAP (test code = AGAP) 16.2 10.0-20.0 N [facility] CenterPajzjjeDMDIDTPZV0748-93-73 09:45:00 Test Item Value Reference Range Interpretation Comments B/C Ratio (test code = B/C Ratio) 13 6-25 N [facility] CenterGanhnsqTSBJNOEVJ4805-25-33 09:45:00 Test Item Value Reference Range Interpretation Comments eGFR (test code = eGFR) 121 [facility] CenterVyqburySMAWKRNSPB4446-91-63 09:45:00 Test Item Value Reference Range Interpretation Comments MCH (test code = MCH) 25.7 pg 27.0-31.0 L [facility] CenterQyldlmqYELZFHHVHH4223-35-68 09:45:00 Test Item Value Reference Range Interpretation Comments Lymphocytes (test code = Lymphocytes) 11.0 20.0-40.0 L [facility] CenterGehkisdGIGDNZUASC1230-79-44 09:45:00 Test Item Value Reference Range Interpretation Comments Segs (test code = Segs) 86.0 45.0-75.0 H [facility] CenterPvrsmqwHBKQZJOJCT3399-87-14 09:45:00 Test Item Value Reference Range Interpretation Comments Bands (test code = 1.0 See_Comment N [Automat ed message] The Bands) system which ge nerated this result transmit ashanti reference range : <=11.0. The reference r megan was not used to interpr et this result as carmen l/abnormal. [facility] CenterMhjpntcIJRFEFLMRQ1683-51-58 09:45:00 Test Item Value Reference Range Interpretation Comments Lymphocytes # (test code = Lymphocytes 1.6 1.0-5.5 N #) [facility] CenterCmczpnkSQXTRMEJBC0530-71-11 09:45:00 Test Item Value Reference Range Interpretation Comments Monocytes # (test code 0.0 See_Comment N [Aut omated message] The = Monocytes #) system which generated this result tra nsmitted reference range : <=0.8. The reference r megan was not used to int erpret this result as normal/abnormal . [facility] CenterRyhrdbcOMYRPFDJZR7252-80-06 09:45:00 Test Item Value Reference Range Interpretation Comments Segs-Bands # (test code = Segs-Bands #) 13.0 1.5-8.1 H [facility] CenterMnkgykpIDYFFXHGCP1728-86-85 09:45:00 Test Item Value Reference Range Interpretation Comments Plt Morph (test code = Normal (12/11/2012 N Plt Morph) 03:45:00) [facility] CenterFojymsiLXZJJQXFPN7796-77-98 09:45:00 Test Item Value Reference Range Interpretation Comments Hypochrom (test code = Slight (12/11/2012 N Hypochrom) 03:45:00) [facility] CenterUcypumbSPPNUZXOUF6551-59-00 09:45:00 Test Item Value Reference Range Interpretation Comments Myelocytes (test code = Myelocytes) 1.0 H [facility] CenterTpbibnbEQKKLXUBWR6379-76-33 09:45:00 Test Item Value Reference Range Interpretation Comments Atypical Lymphs (test code = Atypical 0.0 N Lymphs) [facility] CenterXsxlhabMWAZNQDXQD6964-52-54 09:45:00 Test Item Value Reference Range Interpretation Comments MCHC (test code = MCHC) 31.6 32.0-36.0 L [facility] CenterBwqvackIPWQACMYDE2308-29-50 09:45:00 Test Item Value Reference Range Interpretation Comments Monocytes (test code = Monocytes) 0.0 2.0-12.0 L [facility] CenterVxevfrwQLOLDSAZSD9879-44-91 09:45:00 Test Item Value Reference Range Interpretation Comments Metamyelocytes (test code 1.0 See_Comment N [ Automated message] = Metamyelocytes) The system which generated this result transmitted ref erence range: <=1.0. T he reference range was not used to int erpret this result as normal/abnormal . [facility] CenterGoohvlkBPRYWKJSGD4896-54-41 09:45:00 Test Item Value Reference Range Interpretation Comments RDW (test code = RDW) 16.2 11.5-14.5 H [facility] CenterYvksfzoGWDDNQUIQF1464-18-13 09:45:00 Test Item Value Reference Range Interpretation Comments Platelet (test code = Platelet) 268 133-450 N [facility] CenterWpovtxvBUUJXUICCX3775-76-12 09:45:00 Test Item Value Reference Range Interpretation Comments MPV (test code = MPV) 9.0 7.4-10.4 N [facility] CenterOknfwcvBYHIGPHORV3017-46-85 09:45:00 Test Item Value Reference Range Interpretation Comments MCV (test code = MCV) 81.2 81.0-99.0 N [facility] CenterTgiazwyGZUUGJYAVM9383-64-42 09:45:00 Test Item Value Reference Range Interpretation Comments MCH (test code = MCH) 25.7 pg 27.0-31.0 L [facility] CenterSkiupprLISVXSXMMG8432-49-76 09:45:00 Test Item Value Reference Range Interpretation Comments MCHC (test code = MCHC) 31.6 32.0-36.0 L [facility] CenterFtzbylrROEGKUEZJM6129-53-75 09:45:00 Test Item Value Reference Range Interpretation Comments WBC (test code = WBC) 15.0 3.7-10.4 H [facility] CenterUlmxvpzCCOCXFVROL3240-05-80 09:45:00 Test Item Value Reference Range Interpretation Comments Hct (test code = Hct) 31.9 36.0-48.0 L [facility] CenterKpojciyKQWMKYYVOH0966-05-00 09:45:00 Test Item Value Reference Range Interpretation Comments WBC (test code = WBC) 15.0 3.7-10.4 H [facility] CenterRjnhiutGDCCVIKFPS2914-06-50 09:45:00 Test Item Value Reference Range Interpretation Comments Hgb (test code = Hgb) 10.1 12.0-16.0 L [facility] CenterZjtulhtZJEMHUOUAR2028-45-12 09:45:00 Test Item Value Reference Range Interpretation Comments RBC (test code = RBC) 3.93 4.20-5.40 L [facility] CenterUqmytpcJQRQTJRCQP4363-48-03 09:45:00 Test Item Value Reference Range Interpretation Comments Hct (test code = Hct) 31.9 36.0-48.0 L [facility] CenterTfmxdygREVHELBVVY7436-17-36 09:45:00 Test Item Value Reference Range Interpretation Comments Hgb (test code = Hgb) 10.1 12.0-16.0 L [facility] CenterWgrqujdRSUZPHJIZZ0547-91-29 09:45:00 Test Item Value Reference Range Interpretation Comments RBC (test code = RBC) 3.93 4.20-5.40 L [facility] CenterUrinlptETFRKBEBS8060-42-69 09:45:00 Test Item Value Reference Range Interpretation Comments Calcium Lvl (test code = Calcium Lvl) 8.1 8.5-10.5 L [facility] CenterVwbarusCZXERDNRL4757-96-79 09:45:00 Test Item Value Reference Range Interpretation Comments AST (test code = AST) 31 See_Comment N [Auto mated message] The system which ge nerated this result transmit ashanti reference range : <=37. The reference range was not used to interpr et this result as carmen l/abnormal. [facility] CenterQvgfjyzENFRGNRWX5949-74-04 09:45:00 Test Item Value Reference Range Interpretation Comments Bili Total (test code = Bili Total) 0.4 0.2-1.3 N [facility] CenterZmubshlPUQXHYUGP7603-70-67 09:45:00 Test Item Value Reference Range Interpretation Comments Alk Phos (test code = Alk Phos) 57 39-136 N [facility] CenterAfgrompMNMVZGPXX1891-14-32 09:45:00 Test Item Value Reference Range Interpretation Comments ALT (test code = ALT) 35 See_Comment N [Auto mated message] The system which ge nerated this result transmit ashanti reference range : <=65. The reference range was not used to interpr et this result as carmen l/abnormal. [facility] CenterSadizmrMJDTQSEPD3680-75-31 09:45:00 Test Item Value Reference Range Interpretation Comments Total Protein (test code = Total 5.9 6.4-8.4 L Protein) [facility] CenterAjyqigcKONMDKBFU1672-27-67 09:45:00 Test Item Value Reference Range Interpretation Comments eGFR (test code = eGFR) 121 [facility] CenterHnzctjiWJYEEDHJA3127-99-67 09:45:00 Test Item Value Reference Range Interpretation Comments Calcium Lvl (test code = Calcium Lvl) 8.1 8.5-10.5 L [facility] CenterYoufxfoDQLVIEFEQ4337-82-13 09:45:00 Test Item Value Reference Range Interpretation Comments Albumin Lvl (test code = Albumin Lvl) 3.3 3.5-5.0 L [facility] CenterYukoqroXOOQTLZKR6194-94-99 09:45:00 Test Item Value Reference Range Interpretation Comments Chloride Lvl (test code = Chloride Lvl) 104 95-109 N [facility] CenterSqxiduhIFCQZESPY5079-18-88 09:45:00 Test Item Value Reference Range Interpretation Comments CO2 (test code = CO2) 24 24-32 N [facility] CenterTgjavuaDWUZGEDLS6827-85-50 09:45:00 Test Item Value Reference Range Interpretation Comments Sodium Lvl (test code = Sodium Lvl) 140 135-145 N [facility] CenterFnidijbMKWDTRJEL3934-04-27 09:45:00 Test Item Value Reference Range Interpretation Comments Potassium Lvl (test code = Potassium 4.2 3.5-5.1 N Lvl) [facility] CenterRwxdebeEDFBMYPJN7602-04-62 09:45:00 Test Item Value Reference Range Interpretation Comments BUN (test code = BUN) 8 7-22 N [facility] CenterHlglenaDWCTDRPMT6657-34-19 09:45:00 Test Item Value Reference Range Interpretation Comments Creatinine Lvl (test code = Creatinine 0.6 0.5-1.4 N Lvl) [facility] CenterKfuvbncMVPDUUDAE3185-14-21 09:45:00 Test Item Value Reference Range Interpretation Comments Glucose Lvl (test code = Glucose Lvl) 87 70-99 N [facility] CenterGdambgpIGOQXHTLT8183-25-67 09:45:00 Test Item Value Reference Range Interpretation Comments A/G Ratio (test code = A/G Ratio) 1.3 0.7-1.6 N [facility] CenterXglpewhDAQRBKMRT6251-99-03 09:45:00 Test Item Value Reference Range Interpretation Comments Globulin (test code = Globulin) 2.6 2.0-4.0 N [facility] CenterSrnbxamBVMLNFNPI2368-40-20 09:45:00 Test Item Value Reference Range Interpretation Comments AGAP (test code = AGAP) 16.2 10.0-20.0 N [facility] CenterAvujpqeOFPUJTPZW6940-08-54 09:45:00 Test Item Value Reference Range Interpretation Comments B/C Ratio (test code = B/C Ratio) 13 6-25 N [facility] CenterWbazoblIUUXZJNPSZ3746-56-99 09:45:00 Test Item Value Reference Range Interpretation Comments Lymphocytes (test code = Lymphocytes) 11.0 20.0-40.0 L [facility] CenterYlklskeVNMVSJDSAI7635-19-85 09:45:00 Test Item Value Reference Range Interpretation Comments Segs (test code = Segs) 86.0 45.0-75.0 H [facility] CenterHsijxofBFCWWDZCYE2796-12-39 09:45:00 Test Item Value Reference Range Interpretation Comments Bands (test code = 1.0 See_Comment N [Automat ed message] The Bands) system which ge nerated this result transmit ashanti reference range : <=11.0. The reference r megan was not used to interpr et this result as carmen l/abnormal. [facility] CenterOfsokawUIRJFKXKOG7369-34-83 09:45:00 Test Item Value Reference Range Interpretation Comments Lymphocytes # (test code = Lymphocytes 1.6 1.0-5.5 N #) [facility] CenterZwysvocDFNCQXNTJK8499-09-64 09:45:00 Test Item Value Reference Range Interpretation Comments Monocytes # (test code 0.0 See_Comment N [Aut omated message] The = Monocytes #) system which generated this result tra nsmitted reference range : <=0.8. The reference r megan was not used to int erpret this result as normal/abnormal . [facility] CenterHfkwyrfFXKDUCEXOS3336-18-95 09:45:00 Test Item Value Reference Range Interpretation Comments Segs-Bands # (test code = Segs-Bands #) 13.0 1.5-8.1 H [facility] CenterAkfnchcYKAAXSFFGT4238-99-25 09:45:00 Test Item Value Reference Range Interpretation Comments Plt Morph (test code = Normal (12/11/2012 N Plt Morph) 03:45:00) [facility] CenterNpkzekbRUOHMMNZED6381-97-30 09:45:00 Test Item Value Reference Range Interpretation Comments Hypochrom (test code = Slight (12/11/2012 N Hypochrom) 03:45:00) [facility] CenterFebjrdmHLEXRMRWYA0404-38-63 09:45:00 Test Item Value Reference Range Interpretation Comments Myelocytes (test code = Myelocytes) 1.0 H [facility] CenterTpiyanwPEHUKIXLDJ9389-87-92 09:45:00 Test Item Value Reference Range Interpretation Comments Atypical Lymphs (test code = Atypical 0.0 N Lymphs) [facility] CenterCrzmxbuGDLVSHLDHA3505-59-07 09:45:00 Test Item Value Reference Range Interpretation Comments Monocytes (test code = Monocytes) 0.0 2.0-12.0 L [facility] CenterOjaxmgkUBXCJRKUWR5530-77-29 09:45:00 Test Item Value Reference Range Interpretation Comments Metamyelocytes (test code 1.0 See_Comment N [ Automated message] = Metamyelocytes) The system which generated this result transmitted ref erence range: <=1.0. T he reference range was not used to int erpret this result as normal/abnormal . [facility] CenterSgkmemlAPNTRGPKFK4501-31-93 09:45:00 Test Item Value Reference Range Interpretation Comments RDW (test code = RDW) 16.2 11.5-14.5 H [facility] CenterVsepafjLHLKYBRLTH0836-92-37 09:45:00 Test Item Value Reference Range Interpretation Comments Platelet (test code = Platelet) 268 133-450 N [facility] CenterVeoiqmqZCFXKXMHIG0514-56-54 09:45:00 Test Item Value Reference Range Interpretation Comments MPV (test code = MPV) 9.0 7.4-10.4 [facility]ZpsfonxQKZKHKSRAH3948-58-64 09:45:00 Test Item Value Reference Range Interpretation Comments MCV (test code = MCV) 81.2 81.0-99.0 N [facility] CenterQilnimsDPVVLXRJFT0122-37-54 09:45:00 Test Item Value Reference Range Interpretation Comments MCH (test code = MCH) 25.7 pg 27.0-31.0 L [facility] CenterLzboxuwGVVUFSWTDZ3607-64-05 09:45:00 Test Item Value Reference Range Interpretation Comments MCHC (test code = MCHC) 31.6 32.0-36.0 L [facility] CenterKifnxhdIIJCCFUTUI9540-39-92 09:45:00 Test Item Value Reference Range Interpretation Comments WBC (test code = WBC) 15.0 3.7-10.4 H [facility] CenterZuxjbmkDXRQSMDGWS2561-26-10 09:45:00 Test Item Value Reference Range Interpretation Comments Hct (test code = Hct) 31.9 36.0-48.0 L [facility] CenterQpgcoibPLUKJQNVMG0822-48-08 09:45:00 Test Item Value Reference Range Interpretation Comments Hgb (test code = Hgb) 10.1 12.0-16.0 L [facility] CenterAlscijgGISVGEPFGW2168-36-29 09:45:00 Test Item Value Reference Range Interpretation Comments RBC (test code = RBC) 3.93 4.20-5.40 L [facility] CenterGgtxlfxOSZKVWVZO3084-56-32 09:45:00 Test Item Value Reference Range Interpretation Comments Albumin Lvl (test code = Albumin Lvl) 3.3 3.5-5.0 L [facility] CenterMockhgzDYPNAFACS9916-65-11 09:45:00 Test Item Value Reference Range Interpretation Comments Chloride Lvl (test code = Chloride Lvl) 104 95-109 N [facility] CenterOcpmmzfDJCRAVNJI2181-52-21 09:45:00 Test Item Value Reference Range Interpretation Comments AST (test code = AST) 31 See_Comment N [Auto mated message] The system which ge nerated this result transmit ashanti reference range : <=37. The reference range was not used to interpr et this result as carmen l/abnormal. [facility] CenterKvxbkhxNVSSJJRNI2518-88-72 09:45:00 Test Item Value Reference Range Interpretation Comments Bili Total (test code = Bili Total) 0.4 0.2-1.3 N [facility] CenterWztzuvnOKKEWHEYQ2991-61-20 09:45:00 Test Item Value Reference Range Interpretation Comments Alk Phos (test code = Alk Phos) 57 39-136 N [facility] CenterTtllbdnQGWVBNGEH2174-48-31 09:45:00 Test Item Value Reference Range Interpretation Comments ALT (test code = ALT) 35 See_Comment N [Auto mated message] The system which ge nerated this result transmit ashanti reference range : <=65. The reference range was not used to interpr et this result as carmen l/abnormal. [facility] CenterDgtwrapNOZDQFQAS0481-67-06 09:45:00 Test Item Value Reference Range Interpretation Comments Total Protein (test code = Total 5.9 6.4-8.4 L Protein) [facility] CenterKszratpYJLWRBEUV3302-28-45 09:45:00 Test Item Value Reference Range Interpretation Comments eGFR (test code = eGFR) 121 [facility] CenterLkgwecqYQBIXXMMU5282-18-79 09:45:00 Test Item Value Reference Range Interpretation Comments Calcium Lvl (test code = Calcium Lvl) 8.1 8.5-10.5 L [facility] CenterMxzthwuQDNBLFZTD4774-45-26 09:45:00 Test Item Value Reference Range Interpretation Comments Albumin Lvl (test code = Albumin Lvl) 3.3 3.5-5.0 L [facility] CenterBidtoqmAQZVXQUIE0885-93-04 09:45:00 Test Item Value Reference Range Interpretation Comments Chloride Lvl (test code = Chloride Lvl) 104 95-109 N [facility] CenterAngaixkLGMHZSHYB3539-59-34 09:45:00 Test Item Value Reference Range Interpretation Comments CO2 (test code = CO2) 24 24-32 N [facility] CenterUtjgbleRCFLGKSKP8301-56-11 09:45:00 Test Item Value Reference Range Interpretation Comments Sodium Lvl (test code = Sodium Lvl) 140 135-145 N [facility] CenterFgpungdRTLTFGEYZ3648-62-27 09:45:00 Test Item Value Reference Range Interpretation Comments Potassium Lvl (test code = Potassium 4.2 3.5-5.1 N Lvl) [facility] CenterLvltqdrDKZPSLUFA2091-75-19 09:45:00 Test Item Value Reference Range Interpretation Comments BUN (test code = BUN) 8 7-22 N [facility] CenterYitwhcwBMTDNEMEQ9365-29-23 09:45:00 Test Item Value Reference Range Interpretation Comments Creatinine Lvl (test code = Creatinine 0.6 0.5-1.4 N Lvl) [facility] CenterKgixqcqDKISNQGQJ8028-68-80 09:45:00 Test Item Value Reference Range Interpretation Comments Glucose Lvl (test code = Glucose Lvl) 87 70-99 N [facility] CenterTnlkyoeFDVUOAKJU6352-32-31 09:45:00 Test Item Value Reference Range Interpretation Comments A/G Ratio (test code = A/G Ratio) 1.3 0.7-1.6 N [facility] CenterGxibhsuQNAUOYMFD6439-40-59 09:45:00 Test Item Value Reference Range Interpretation Comments Globulin (test code = Globulin) 2.6 2.0-4.0 N [facility] CenterIcuceicAOSLXQSQM9802-44-14 09:45:00 Test Item Value Reference Range Interpretation Comments AGAP (test code = AGAP) 16.2 10.0-20.0 N [facility] CenterJtoxlleEFIDZEJOL4434-42-10 09:45:00 Test Item Value Reference Range Interpretation Comments B/C Ratio (test code = B/C Ratio) 13 6-25 N [facility] CenterMkzflvxOTPUFUHKRX4850-08-87 09:45:00 Test Item Value Reference Range Interpretation Comments Lymphocytes (test code = Lymphocytes) 11.0 20.0-40.0 L [facility] CenterHkewiasNCFFZQMNEG5972-12-38 09:45:00 Test Item Value Reference Range Interpretation Comments Segs (test code = Segs) 86.0 45.0-75.0 H [facility] CenterEzshygsJDTSEDPZZU3917-94-38 09:45:00 Test Item Value Reference Range Interpretation Comments Bands (test code = 1.0 See_Comment N [Automat ed message] The Bands) system which ge nerated this result transmit ashanti reference range : <=11.0. The reference r megan was not used to interpr et this result as carmen l/abnormal. [facility] CenterRulkbulVKONVJSOCC4162-18-60 09:45:00 Test Item Value Reference Range Interpretation Comments Lymphocytes # (test code = Lymphocytes 1.6 1.0-5.5 N #) [facility] CenterDfvldpdMWWFCNDDWE9040-14-50 09:45:00 Test Item Value Reference Range Interpretation Comments Monocytes # (test code 0.0 See_Comment N [Aut omated message] The = Monocytes #) system which generated this result tra nsmitted reference range : <=0.8. The reference r megan was not used to int erpret this result as normal/abnormal . [facility] CenterGqqwlorMONNHRRQMR3086-92-13 09:45:00 Test Item Value Reference Range Interpretation Comments Segs-Bands # (test code = Segs-Bands #) 13.0 1.5-8.1 H [facility] CenterRsgdlofTRAPKSIUFT0569-55-30 09:45:00 Test Item Value Reference Range Interpretation Comments Plt Morph (test code = Normal (12/11/2012 N Plt Morph) 03:45:00) [facility] CenterWiwhbckEYEBIRXKWZ1575-20-01 09:45:00 Test Item Value Reference Range Interpretation Comments Hypochrom (test code = Slight (12/11/2012 N Hypochrom) 03:45:00) [facility] CenterPpkshhtHPRAVAAMFB1420-27-51 09:45:00 Test Item Value Reference Range Interpretation Comments Myelocytes (test code = Myelocytes) 1.0 H [facility] CenterBgwqbmmWOUFGINAVV8395-41-08 09:45:00 Test Item Value Reference Range Interpretation Comments Atypical Lymphs (test code = Atypical 0.0 N Lymphs) [facility] CenterNuwunenFLEZXADWLO8145-25-04 09:45:00 Test Item Value Reference Range Interpretation Comments Monocytes (test code = Monocytes) 0.0 2.0-12.0 L [facility] CenterRufzmcvJDOOCJJYEM2443-80-41 09:45:00 Test Item Value Reference Range Interpretation Comments Metamyelocytes (test code 1.0 See_Comment N [ Automated message] = Metamyelocytes) The system which generated this result transmitted ref erence range: <=1.0. T he reference range was not used to int erpret this result as normal/abnormal . [facility] CenterSyuyxurILXWWULPPS4464-49-31 09:45:00 Test Item Value Reference Range Interpretation Comments RDW (test code = RDW) 16.2 11.5-14.5 H [facility] CenterExkanrnVHLLWQDZMY4369-92-73 09:45:00 Test Item Value Reference Range Interpretation Comments Platelet (test code = Platelet) 268 133-450 N [facility] CenterFfxrlbrMPOKBCKKZV8855-52-69 09:45:00 Test Item Value Reference Range Interpretation Comments MPV (test code = MPV) 9.0 7.4-10.4 N [facility] CenterYpvcgokGOGDPFUDUW2573-54-93 09:45:00 Test Item Value Reference Range Interpretation Comments MCV (test code = MCV) 81.2 81.0-99.0 N [facility] CenterYkerkmiEIZNOILVQE5663-48-90 09:45:00 Test Item Value Reference Range Interpretation Comments MCH (test code = MCH) 25.7 pg 27.0-31.0 L [facility] CenterXdspzzqDGPDFTYBPM2037-86-98 09:45:00 Test Item Value Reference Range Interpretation Comments MCHC (test code = MCHC) 31.6 32.0-36.0 L [facility] CenterJecbktcNACCGBZOMB0331-49-57 09:45:00 Test Item Value Reference Range Interpretation Comments WBC (test code = WBC) 15.0 3.7-10.4 H [facility] CenterAtnzmpfODMJLURQFO1776-27-29 09:45:00 Test Item Value Reference Range Interpretation Comments Hct (test code = Hct) 31.9 36.0-48.0 L [facility] CenterKwmyftyQPFLVMHFUX3811-38-54 09:45:00 Test Item Value Reference Range Interpretation Comments Hgb (test code = Hgb) 10.1 12.0-16.0 L [facility] CenterNenwsmyGNGKGOKDEL1809-01-54 09:45:00 Test Item Value Reference Range Interpretation Comments RBC (test code = RBC) 3.93 4.20-5.40 L [facility] CenterBoxnnuwIKUEXMJJO5037-81-64 09:45:00 Test Item Value Reference Range Interpretation Comments CO2 (test code = CO2) 24 24-32 N [facility] CenterNopxqfyIHBBSHFZX3987-42-58 09:45:00 Test Item Value Reference Range Interpretation Comments AST (test code = AST) 31 See_Comment N [Auto mated message] The system which ge nerated this result transmit ashanti reference range : <=37. The reference range was not used to interpr et this result as carmen l/abnormal. [facility] CenterOlrheqsNIYWWNYIP2326-23-44 09:45:00 Test Item Value Reference Range Interpretation Comments Bili Total (test code = Bili Total) 0.4 0.2-1.3 N [facility] CenterTydxaxdBGOCFAABY6706-38-79 09:45:00 Test Item Value Reference Range Interpretation Comments Alk Phos (test code = Alk Phos) 57 39-136 N [facility] CenterKvypvozPMUGXIDUJ0268-31-17 09:45:00 Test Item Value Reference Range Interpretation Comments Sodium Lvl (test code = Sodium Lvl) 140 135-145 N [facility] CenterRxgfnmwQQTNFSLEU7212-50-78 09:45:00 Test Item Value Reference Range Interpretation Comments ALT (test code = ALT) 35 See_Comment N [Auto mated message] The system which ge nerated this result transmit ashanti reference range : <=65. The reference range was not used to interpr et this result as carmen l/abnormal. [facility] CenterEmjncacBZKLUEACC9203-25-12 09:45:00 Test Item Value Reference Range Interpretation Comments Total Protein (test code = Total 5.9 6.4-8.4 L Protein) [facility] CenterJjmwicwEJCZHXOYF1004-71-24 09:45:00 Test Item Value Reference Range Interpretation Comments eGFR (test code = eGFR) 121 [facility] CenterJzyxeudLRUWOUXSZ9658-90-61 09:45:00 Test Item Value Reference Range Interpretation Comments Calcium Lvl (test code = Calcium Lvl) 8.1 8.5-10.5 L [facility] CenterJxzevlbTXIMKKCEE6951-44-34 09:45:00 Test Item Value Reference Range Interpretation Comments Albumin Lvl (test code = Albumin Lvl) 3.3 3.5-5.0 L [facility] CenterNkdpfcfSHMQEZAJB9904-36-42 09:45:00 Test Item Value Reference Range Interpretation Comments Chloride Lvl (test code = Chloride Lvl) 104 95-109 N [facility] CenterKymzmelYWBHAMOSX3606-36-88 09:45:00 Test Item Value Reference Range Interpretation Comments CO2 (test code = CO2) 24 24-32 N [facility] CenterNhaqwvrGJMCKKKDC9018-42-25 09:45:00 Test Item Value Reference Range Interpretation Comments Sodium Lvl (test code = Sodium Lvl) 140 135-145 N [facility] CenterOnrhvxnIVGQQVYJK3085-90-13 09:45:00 Test Item Value Reference Range Interpretation Comments Potassium Lvl (test code = Potassium 4.2 3.5-5.1 N Lvl) [facility] CenterWvlysrbPRQVXZLAU2007-14-87 09:45:00 Test Item Value Reference Range Interpretation Comments BUN (test code = BUN) 8 7-22 N [facility] CenterHpxweqkUDVWZOTPM7314-74-98 09:45:00 Test Item Value Reference Range Interpretation Comments Creatinine Lvl (test code = Creatinine 0.6 0.5-1.4 N Lvl) [facility] CenterIgszgfxMSSLCGGTO1472-03-58 09:45:00 Test Item Value Reference Range Interpretation Comments Glucose Lvl (test code = Glucose Lvl) 87 70-99 N [facility] CenterWljltlbSZBOJJYSU8571-47-27 09:45:00 Test Item Value Reference Range Interpretation Comments A/G Ratio (test code = A/G Ratio) 1.3 0.7-1.6 N [facility] CenterXdpodzcOSADZQOSH0977-74-80 09:45:00 Test Item Value Reference Range Interpretation Comments Globulin (test code = Globulin) 2.6 2.0-4.0 N [facility] CenterRtgkbokUKXVWXCYJ0809-01-91 09:45:00 Test Item Value Reference Range Interpretation Comments AGAP (test code = AGAP) 16.2 10.0-20.0 N [facility] CenterMtjbzckIXNGJQOKG4436-03-63 09:45:00 Test Item Value Reference Range Interpretation Comments B/C Ratio (test code = B/C Ratio) 13 6-25 N [facility] CenterXazkmelOYUHGOICMS6214-68-04 09:45:00 Test Item Value Reference Range Interpretation Comments Lymphocytes (test code = Lymphocytes) 11.0 20.0-40.0 L [facility] CenterEtaucdgGZFREUYPMM6315-32-31 09:45:00 Test Item Value Reference Range Interpretation Comments Segs (test code = Segs) 86.0 45.0-75.0 H [facility] CenterUatukkhIIHSMCHEWD4229-26-05 09:45:00 Test Item Value Reference Range Interpretation Comments Bands (test code = 1.0 See_Comment N [Automat ed message] The Bands) system which ge nerated this result transmit ashanti reference range : <=11.0. The reference r megan was not used to interpr et this result as carmen l/abnormal. [facility] CenterCibivybQYJEAZZHEQ0558-87-52 09:45:00 Test Item Value Reference Range Interpretation Comments Lymphocytes # (test code = Lymphocytes 1.6 1.0-5.5 N #) [facility] CenterZiarpftVSMDQGCUOG3312-28-79 09:45:00 Test Item Value Reference Range Interpretation Comments Monocytes # (test code 0.0 See_Comment N [Aut omated message] The = Monocytes #) system which generated this result tra nsmitted reference range : <=0.8. The reference r megan was not used to int erpret this result as normal/abnormal . [facility] CenterUrpgfcuHGOXAXBMRI0780-95-66 09:45:00 Test Item Value Reference Range Interpretation Comments Segs-Bands # (test code = Segs-Bands #) 13.0 1.5-8.1 H [facility] CenterHttzmhtLYQWDPKTVF3201-76-54 09:45:00 Test Item Value Reference Range Interpretation Comments Plt Morph (test code = Normal (12/11/2012 N Plt Morph) 03:45:00) [facility] CenterKfknepeWAJPWSKETR3507-78-99 09:45:00 Test Item Value Reference Range Interpretation Comments Hypochrom (test code = Slight (12/11/2012 N Hypochrom) 03:45:00) [facility] CenterJwxruatUXWGWKLKPD0874-95-92 09:45:00 Test Item Value Reference Range Interpretation Comments Myelocytes (test code = Myelocytes) 1.0 H [facility] CenterNcttsdbPTRGBOCBSO8681-12-46 09:45:00 Test Item Value Reference Range Interpretation Comments Atypical Lymphs (test code = Atypical 0.0 N Lymphs) [facility] CenterDohhlqjBIPTXPLDGR3210-79-63 09:45:00 Test Item Value Reference Range Interpretation Comments Monocytes (test code = Monocytes) 0.0 2.0-12.0 L [facility] CenterCbfxjnbNDTSPAGLRT5594-25-82 09:45:00 Test Item Value Reference Range Interpretation Comments Metamyelocytes (test code 1.0 See_Comment N [ Automated message] = Metamyelocytes) The system which generated this result transmitted ref erence range: <=1.0. T he reference range was not used to int erpret this result as normal/abnormal . [facility] CenterUarwetfTTFLHUJVUN9885-78-75 09:45:00 Test Item Value Reference Range Interpretation Comments RDW (test code = RDW) 16.2 11.5-14.5 H [facility] CenterYwryqlrHGFLVHZDYB1800-66-57 09:45:00 Test Item Value Reference Range Interpretation Comments Platelet (test code = Platelet) 268 133-450 N [facility] CenterObetbpgDRLJHKQACE4385-84-54 09:45:00 Test Item Value Reference Range Interpretation Comments MPV (test code = MPV) 9.0 7.4-10.4 N [facility] CenterUfcrftzIJHNIZNVKJ4209-65-20 09:45:00 Test Item Value Reference Range Interpretation Comments MCV (test code = MCV) 81.2 81.0-99.0 N [facility] CenterKnvfjflORXKWXRPJZ4873-54-42 09:45:00 Test Item Value Reference Range Interpretation Comments MCH (test code = MCH) 25.7 pg 27.0-31.0 L [facility] CenterGacamhgIIJMRSFLCA5772-04-94 09:45:00 Test Item Value Reference Range Interpretation Comments MCHC (test code = MCHC) 31.6 32.0-36.0 L [facility] CenterIxbbhnzXINDGQNXWL9066-65-15 09:45:00 Test Item Value Reference Range Interpretation Comments WBC (test code = WBC) 15.0 3.7-10.4 H [facility] CenterGixjzcdYRQVORPTIK2721-45-23 09:45:00 Test Item Value Reference Range Interpretation Comments Hct (test code = Hct) 31.9 36.0-48.0 L [facility] CenterLavnyqyKPRYIUIJGF9164-55-15 09:45:00 Test Item Value Reference Range Interpretation Comments Hgb (test code = Hgb) 10.1 12.0-16.0 L [facility] CenterBdlmcnuNCXWOKXZHB2949-56-41 09:45:00 Test Item Value Reference Range Interpretation Comments RBC (test code = RBC) 3.93 4.20-5.40 L [facility] CenterZmahrywIOLKXMVNN3201-57-16 09:45:00 Test Item Value Reference Range Interpretation Comments Potassium Lvl (test code = Potassium 4.2 3.5-5.1 N Lvl) [facility] CenterPvpzowxZIEHTQLFB1311-90-92 09:45:00 Test Item Value Reference Range Interpretation Comments AST (test code = AST) 31 See_Comment N [Auto mated message] The system which ge nerated this result transmit ashanti reference range : <=37. The reference range was not used to interpr et this result as carmen l/abnormal. [facility] CenterEjtqdzjGEPPMIBMR2551-67-14 09:45:00 Test Item Value Reference Range Interpretation Comments Bili Total (test code = Bili Total) 0.4 0.2-1.3 N [facility] CenterGxyvxsoJPNDAVFJT7145-62-05 09:45:00 Test Item Value Reference Range Interpretation Comments Alk Phos (test code = Alk Phos) 57 39-136 N [facility] CenterCvadpquHXAVEVSZX6135-84-99 09:45:00 Test Item Value Reference Range Interpretation Comments ALT (test code = ALT) 35 See_Comment N [Auto mated message] The system which ge nerated this result transmit ashanti reference range : <=65. The reference range was not used to interpr et this result as carmen l/abnormal. [facility] CenterEjdzprlQRNKNPBHK6349-17-73 09:45:00 Test Item Value Reference Range Interpretation Comments Total Protein (test code = Total 5.9 6.4-8.4 L Protein) [facility] CenterIcpuzbiXWCTTLYPY0889-62-38 09:45:00 Test Item Value Reference Range Interpretation Comments eGFR (test code = eGFR) 121 [facility] CenterHybgfivGSIFRWEEV0345-94-15 09:45:00 Test Item Value Reference Range Interpretation Comments Calcium Lvl (test code = Calcium Lvl) 8.1 8.5-10.5 L [facility] CenterKehciuiIDLXIEZPN9524-09-76 09:45:00 Test Item Value Reference Range Interpretation Comments Albumin Lvl (test code = Albumin Lvl) 3.3 3.5-5.0 L [facility] CenterFohtzcmPGLZTXZHC6081-57-36 09:45:00 Test Item Value Reference Range Interpretation Comments Chloride Lvl (test code = Chloride Lvl) 104 95-109 N [facility] CenterYihpicxCQCCKAWXH3750-79-80 09:45:00 Test Item Value Reference Range Interpretation Comments CO2 (test code = CO2) 24 24-32 N [facility] CenterDzhstypLFXPCYSHE4254-07-86 09:45:00 Test Item Value Reference Range Interpretation Comments Sodium Lvl (test code = Sodium Lvl) 140 135-145 N [facility] CenterXrxdusvWWTIGBOLR6548-63-77 09:45:00 Test Item Value Reference Range Interpretation Comments Potassium Lvl (test code = Potassium 4.2 3.5-5.1 N Lvl) [facility] CenterBomglgyVGFVAHKNM5006-40-79 09:45:00 Test Item Value Reference Range Interpretation Comments BUN (test code = BUN) 8 7-22 N [facility] CenterCokijxkIIQNRRUBG5997-60-51 09:45:00 Test Item Value Reference Range Interpretation Comments Creatinine Lvl (test code = Creatinine 0.6 0.5-1.4 N Lvl) [facility] CenterHsevcadZPUQKLSQJ3334-77-22 09:45:00 Test Item Value Reference Range Interpretation Comments Glucose Lvl (test code = Glucose Lvl) 87 70-99 N [facility] CenterGwwacwcHVAZRUFBB0997-80-28 09:45:00 Test Item Value Reference Range Interpretation Comments A/G Ratio (test code = A/G Ratio) 1.3 0.7-1.6 N [facility] CenterQkixottJCWZKURDP7020-62-20 09:45:00 Test Item Value Reference Range Interpretation Comments Globulin (test code = Globulin) 2.6 2.0-4.0 N [facility] CenterFrigavnRBOYCZXUX1411-05-05 09:45:00 Test Item Value Reference Range Interpretation Comments AGAP (test code = AGAP) 16.2 10.0-20.0 N [facility] CenterMwhvzlwAIMRNHAUY8351-80-76 09:45:00 Test Item Value Reference Range Interpretation Comments B/C Ratio (test code = B/C Ratio) 13 6-25 N [facility] CenterJrsoqsmTBTNROUBWR4772-81-41 09:45:00 Test Item Value Reference Range Interpretation Comments Lymphocytes (test code = Lymphocytes) 11.0 20.0-40.0 L [facility] CenterOpaifznVXCGOMGMVZ6236-98-56 09:45:00 Test Item Value Reference Range Interpretation Comments Segs (test code = Segs) 86.0 45.0-75.0 H [facility] CenterNmzjmxbCTGADVHSUH4203-54-76 09:45:00 Test Item Value Reference Range Interpretation Comments Bands (test code = 1.0 See_Comment N [Automat ed message] The Bands) system which ge nerated this result transmit ashanti reference range : <=11.0. The reference r megan was not used to interpr et this result as carmen l/abnormal. [facility] CenterSguvsbrFZFFQMJQYG9425-78-14 09:45:00 Test Item Value Reference Range Interpretation Comments Lymphocytes # (test code = Lymphocytes 1.6 1.0-5.5 N #) [facility] CenterNypdvqpSNRUOZIPQB7820-50-71 09:45:00 Test Item Value Reference Range Interpretation Comments Monocytes # (test code 0.0 See_Comment N [Aut omated message] The = Monocytes #) system which generated this result tra nsmitted reference range : <=0.8. The reference r megan was not used to int erpret this result as normal/abnormal . [facility] CenterSrbqzfxNPHTZZDKPE9138-15-04 09:45:00 Test Item Value Reference Range Interpretation Comments Segs-Bands # (test code = Segs-Bands #) 13.0 1.5-8.1 H [facility] CenterXnmzclrKULFLMODXA3073-25-06 09:45:00 Test Item Value Reference Range Interpretation Comments Plt Morph (test code = Normal (12/11/2012 N Plt Morph) 03:45:00) [facility] CenterQdyeeprTLSIAENGBQ5682-48-65 09:45:00 Test Item Value Reference Range Interpretation Comments Hypochrom (test code = Slight (12/11/2012 N Hypochrom) 03:45:00) [facility] CenterCgtbxuxNOCXNFFBQI3524-74-32 09:45:00 Test Item Value Reference Range Interpretation Comments Myelocytes (test code = Myelocytes) 1.0 H [facility] CenterLjihjcjGYUYEKVITA5133-01-60 09:45:00 Test Item Value Reference Range Interpretation Comments Atypical Lymphs (test code = Atypical 0.0 N Lymphs) [facility] CenterVukplkkIVBVWGBLYI0172-86-03 09:45:00 Test Item Value Reference Range Interpretation Comments Monocytes (test code = Monocytes) 0.0 2.0-12.0 L [facility] CenterTmyyiyoQAMKHFRGBS8356-55-46 09:45:00 Test Item Value Reference Range Interpretation Comments Metamyelocytes (test code 1.0 See_Comment N [ Automated message] = Metamyelocytes) The system which generated this result transmitted ref erence range: <=1.0. T he reference range was not used to int erpret this result as normal/abnormal . [facility] CenterKtuzekfOFQGCTIDG7573-66-10 09:45:00 Test Item Value Reference Range Interpretation Comments BUN (test code = BUN) 8 7-22 N [facility] CenterEllxpmlRNLZRIGQAH9551-21-85 09:45:00 Test Item Value Reference Range Interpretation Comments RDW (test code = RDW) 16.2 11.5-14.5 H [facility] CenterHnsdvfiQBSWAXHLUV6388-17-74 09:45:00 Test Item Value Reference Range Interpretation Comments Platelet (test code = Platelet) 268 133-450 N [facility] CenterXjvcyfrCJGCGIPEOG4680-37-27 09:45:00 Test Item Value Reference Range Interpretation Comments MPV (test code = MPV) 9.0 7.4-10.4 N [facility] CenterOgqibuwPRMSIEDPXK3082-76-95 09:45:00 Test Item Value Reference Range Interpretation Comments MCV (test code = MCV) 81.2 81.0-99.0 [facility] CenterAbfydenPNYWXXAVAQ6042-84-60 09:45:00 Test Item Value Reference Range Interpretation Comments MCH (test code = MCH) 25.7 pg 27.0-31.0 L [facility] CenterQbsasgpXYCPLNFAJM9537-78-25 09:45:00 Test Item Value Reference Range Interpretation Comments MCHC (test code = MCHC) 31.6 32.0-36.0 L [facility] CenterDdjtmluUVSAAIMPZV0811-52-25 09:45:00 Test Item Value Reference Range Interpretation Comments WBC (test code = WBC) 15.0 3.7-10.4 [facility] CenterNgzppzaBMJVYMWMXZ5617-53-57 09:45:00 Test Item Value Reference Range Interpretation Comments Hct (test code = Hct) 31.9 36.0-48.0 L [facility] CenterSievxuyUVWWHZSTMM8638-91-72 09:45:00 Test Item Value Reference Range Interpretation Comments Hgb (test code = Hgb) 10.1 12.0-16.0 L [facility] CenterBlcdqqkDDVWSTVLEE1807-00-40 09:45:00 Test Item Value Reference Range Interpretation Comments RBC (test code = RBC) 3.93 4.20-5.40 L [facility] CenterHmwmnluQNUZMVQIU8447-72-36 09:45:00 Test Item Value Reference Range Interpretation Comments Creatinine Lvl (test code = Creatinine 0.6 0.5-1.4 N Lvl) [facility] CenterBmnhwhlOUPJTSTAY1820-06-56 09:45:00 Test Item Value Reference Range Interpretation Comments AST (test code = AST) 31 <=37 N [facility] CenterXssxdnmATWPIAKJO7285-52-78 09:45:00 Test Item Value Reference Range Interpretation Comments Bili Total (test code = Bili Total) 0.4 0.2-1.3 N [facility] CenterHrjcvolNUTTQSJHQ3069-04-14 09:45:00 Test Item Value Reference Range Interpretation Comments Alk Phos (test code = Alk Phos) 57 39-136 N [facility] CenterPlrbxseTWIRAKLRO3745-58-16 09:45:00 Test Item Value Reference Range Interpretation Comments ALT (test code = ALT) 35 <=65 N [facility] CenterKzdyjakRZRJFHLQU2428-54-78 09:45:00 Test Item Value Reference Range Interpretation Comments Total Protein (test code = Total 5.9 6.4-8.4 L Protein) [facility] CenterHipantwELIQVUOHN8863-48-41 09:45:00 Test Item Value Reference Range Interpretation Comments eGFR (test code = eGFR) 121 [facility] CenterIzbburiODCZEUJGH2951-26-22 09:45:00 Test Item Value Reference Range Interpretation Comments Calcium Lvl (test code = Calcium Lvl) 8.1 8.5-10.5 L [facility] CenterQujbfsbRHLNWQAXS6409-42-00 09:45:00 Test Item Value Reference Range Interpretation Comments Albumin Lvl (test code = Albumin Lvl) 3.3 3.5-5.0 L [facility] CenterJhhmvfbBZMZVGAJK9390-64-14 09:45:00 Test Item Value Reference Range Interpretation Comments Chloride Lvl (test code = Chloride Lvl) 104 95-109 N [facility] CenterInoofeaSDLMILDDD1700-19-74 09:45:00 Test Item Value Reference Range Interpretation Comments CO2 (test code = CO2) 24 24-32 N [facility] CenterIsepczvVKILHRQJI1179-37-09 09:45:00 Test Item Value Reference Range Interpretation Comments Sodium Lvl (test code = Sodium Lvl) 140 135-145 N [facility] CenterNcvifpoIRIJFXQZI0719-08-23 09:45:00 Test Item Value Reference Range Interpretation Comments Potassium Lvl (test code = Potassium 4.2 3.5-5.1 N Lvl) [facility] CenterCsszyclMBLUWZUIO6928-50-35 09:45:00 Test Item Value Reference Range Interpretation Comments BUN (test code = BUN) 8 7-22 N [facility] CenterNmqlwbrDRHGCNRJS1573-23-99 09:45:00 Test Item Value Reference Range Interpretation Comments Creatinine Lvl (test code = Creatinine 0.6 0.5-1.4 N Lvl) [facility] CenterTibyxpkOOSOFISRH4108-92-96 09:45:00 Test Item Value Reference Range Interpretation Comments Glucose Lvl (test code = Glucose Lvl) 87 70-99 N [facility] CenterXogpgiaCWDWVENLX4183-60-57 09:45:00 Test Item Value Reference Range Interpretation Comments A/G Ratio (test code = A/G Ratio) 1.3 0.7-1.6 N [facility] CenterIrbfgbqHTZRNJVQD2428-51-70 09:45:00 Test Item Value Reference Range Interpretation Comments Globulin (test code = Globulin) 2.6 2.0-4.0 N [facility] CenterSnrwzieCXSNQNWMK5067-52-98 09:45:00 Test Item Value Reference Range Interpretation Comments AGAP (test code = AGAP) 16.2 10.0-20.0 N [facility] CenterSwguehpLSXNMDNPR3037-89-97 09:45:00 Test Item Value Reference Range Interpretation Comments B/C Ratio (test code = B/C Ratio) 13 6-25 N [facility] CenterZrtajsxHVGPQRMBWY5714-08-68 09:45:00 Test Item Value Reference Range Interpretation Comments Lymphocytes (test code = Lymphocytes) 11.0 20.0-40.0 L [facility] CenterTciegvwARMTVUCHIP0902-53-06 09:45:00 Test Item Value Reference Range Interpretation Comments Segs (test code = Segs) 86.0 45.0-75.0 H [facility] CenterFeycvmdSNLBLRXFTR1611-90-66 09:45:00 Test Item Value Reference Range Interpretation Comments Bands (test code = Bands) 1.0 <=11.0 N [facility] CenterTxjhiohGDKYUHYYLA5531-72-58 09:45:00 Test Item Value Reference Range Interpretation Comments Lymphocytes # (test code = Lymphocytes 1.6 1.0-5.5 N #) [facility] CenterXevglqbSJYIOTEISA6935-45-85 09:45:00 Test Item Value Reference Range Interpretation Comments Monocytes # (test code = Monocytes #) 0.0 <=0.8 N [facility] CenterSwpgdhlWIZKOOZIGN4106-00-17 09:45:00 Test Item Value Reference Range Interpretation Comments Segs-Bands # (test code = Segs-Bands #) 13.0 1.5-8.1 [facility] CenterSzkjokxXEHAIUTIYX6113-90-53 09:45:00 Test Item Value Reference Range Interpretation Comments Plt Morph (test code = Normal (12/11/2012 N Plt Morph) 03:45:00) [facility] CenterPczjxngXRLTTNTPJA4163-60-64 09:45:00 Test Item Value Reference Range Interpretation Comments Hypochrom (test code = Slight (12/11/2012 N Hypochrom) 03:45:00) [facility] CenterJupgzexSSONTEBDIU5641-71-16 09:45:00 Test Item Value Reference Range Interpretation Comments Myelocytes (test code = Myelocytes) 1.0 H [facility] CenterYgewcplUPPZNNPTQD7028-65-03 09:45:00 Test Item Value Reference Range Interpretation Comments Atypical Lymphs (test code = Atypical 0.0 N Lymphs) [facility] CenterTptsqanBSPXIHAYLS0691-09-71 09:45:00 Test Item Value Reference Range Interpretation Comments Monocytes (test code = Monocytes) 0.0 2.0-12.0 L [facility] CenterLklwztjZURHCBXUHS5834-56-20 09:45:00 Test Item Value Reference Range Interpretation Comments Metamyelocytes (test code = 1.0 <=1.0 N Metamyelocytes) [facility] CenterLmdhkieBMMSOLXPNM6179-96-30 09:45:00 Test Item Value Reference Range Interpretation Comments RDW (test code = RDW) 16.2 11.5-14.5 H [facility] CenterLsuywgjTSNSOLZYSX2376-66-79 09:45:00 Test Item Value Reference Range Interpretation Comments Platelet (test code = Platelet) 268 133-450 N [facility] CenterKyqjwxfDWBOUMJWPN6277-65-23 09:45:00 Test Item Value Reference Range Interpretation Comments MPV (test code = MPV) 9.0 7.4-10.4 N [place] [address]-03-08 09:45:00 Test Item Value Reference Range Interpretation Comments MCV (test code = MCV) 81.2 81.0-99.0 N [facility] CenterVtrkxsaQLUUZYJQRK9956-62-94 09:45:00 Test Item Value Reference Range Interpretation Comments MCH (test code = MCH) 25.7 pg 27.0-31.0 L [facility] CenterLqryctxVTXWNAEEMX8393-23-41 09:45:00 Test Item Value Reference Range Interpretation Comments MCHC (test code = MCHC) 31.6 32.0-36.0 L [facility] CenterEulbcbxENUJKEATCA9133-55-27 09:45:00 Test Item Value Reference Range Interpretation Comments WBC (test code = WBC) 15.0 3.7-10.4 H [facility] CenterFjzwkiqPMLSPQRZGM4130-82-32 09:45:00 Test Item Value Reference Range Interpretation Comments Hct (test code = Hct) 31.9 36.0-48.0 L [facility] CenterTpnovbmTQXYLQMFET3828-86-06 09:45:00 Test Item Value Reference Range Interpretation Comments Hgb (test code = Hgb) 10.1 12.0-16.0 L [facility] CenterDuczlwnAJLEUOPUKJ7159-98-08 09:45:00 Test Item Value Reference Range Interpretation Comments RBC (test code = RBC) 3.93 4.20-5.40 L [facility] CenterSiuqebbOJQUOGQLY3017-60-92 09:45:00 Test Item Value Reference Range Interpretation Comments Glucose Lvl (test code = Glucose Lvl) 87 70-99 N [facility] CenterYyflfudNYIUAYOAP2612-23-91 09:45:00 Test Item Value Reference Range Interpretation Comments A/G Ratio (test code = A/G Ratio) 1.3 0.7-1.6 N [facility] CenterRtpkawxNZZCSYOML2877-47-16 09:45:00 Test Item Value Reference Range Interpretation Comments AST (test code = AST) 31 <=37 N [facility] CenterUanzrilFFMWTETSQ2454-67-07 09:45:00 Test Item Value Reference Range Interpretation Comments Bili Total (test code = Bili Total) 0.4 0.2-1.3 N [facility] CenterEantvefNRTHVBNIC4696-40-31 09:45:00 Test Item Value Reference Range Interpretation Comments Alk Phos (test code = Alk Phos) 57 39-136 N [facility] CenterUxjvcnnDAWMWBTZB7303-01-28 09:45:00 Test Item Value Reference Range Interpretation Comments ALT (test code = ALT) 35 <=65 N [facility] CenterWxfaktlVCLKMQRAQ5433-16-90 09:45:00 Test Item Value Reference Range Interpretation Comments Total Protein (test code = Total 5.9 6.4-8.4 L Protein) [facility] CenterScpvmveLSPWLZLRB8547-15-31 09:45:00 Test Item Value Reference Range Interpretation Comments eGFR (test code = eGFR) 121 [facility] CenterAdrqlkgOMFMVGFJG2239-77-39 09:45:00 Test Item Value Reference Range Interpretation Comments Calcium Lvl (test code = Calcium Lvl) 8.1 8.5-10.5 L [facility] CenterZnumvzgBLRSPWPLX1903-12-28 09:45:00 Test Item Value Reference Range Interpretation Comments Albumin Lvl (test code = Albumin Lvl) 3.3 3.5-5.0 L [facility] CenterIsfuuuuDJJWFLLPK3396-13-64 09:45:00 Test Item Value Reference Range Interpretation Comments Chloride Lvl (test code = Chloride Lvl) 104 95-109 N [facility] CenterPqzlnxpWYBUDUXEE1459-00-69 09:45:00 Test Item Value Reference Range Interpretation Comments CO2 (test code = CO2) 24 24-32 N [facility] CenterOrmchzrFGXXEHZSF5432-25-03 09:45:00 Test Item Value Reference Range Interpretation Comments Sodium Lvl (test code = Sodium Lvl) 140 135-145 N [facility] CenterLbjrnwjMUZKNXIHG1119-45-61 09:45:00 Test Item Value Reference Range Interpretation Comments Potassium Lvl (test code = Potassium 4.2 3.5-5.1 N Lvl) [facility] CenterBxmbmfsRVBSIVYZV2958-08-49 09:45:00 Test Item Value Reference Range Interpretation Comments BUN (test code = BUN) 8 7-22 N [facility] CenterIojuyphIJGZUFZGW6189-23-66 09:45:00 Test Item Value Reference Range Interpretation Comments Creatinine Lvl (test code = Creatinine 0.6 0.5-1.4 N Lvl) [facility] CenterZbraonwXUCKZHXZB7068-97-98 09:45:00 Test Item Value Reference Range Interpretation Comments Glucose Lvl (test code = Glucose Lvl) 87 70-99 N [facility] CenterTkhfaqkXWPHIRRRS0872-15-86 09:45:00 Test Item Value Reference Range Interpretation Comments A/G Ratio (test code = A/G Ratio) 1.3 0.7-1.6 N [facility] CenterKuscpdhRWPTALIUK4415-62-21 09:45:00 Test Item Value Reference Range Interpretation Comments Globulin (test code = Globulin) 2.6 2.0-4.0 N [facility] CenterDwgljsvVXMIFQISN5846-64-60 09:45:00 Test Item Value Reference Range Interpretation Comments AGAP (test code = AGAP) 16.2 10.0-20.0 N [facility] CenterMprtzamEBFESMZSX7722-58-47 09:45:00 Test Item Value Reference Range Interpretation Comments B/C Ratio (test code = B/C Ratio) 13 6-25 N [facility] CenterLwrwfnkRRAEGCBKJJ3207-02-73 09:45:00 Test Item Value Reference Range Interpretation Comments Lymphocytes (test code = Lymphocytes) 11.0 20.0-40.0 L [facility] CenterVtygopoNTKXXYYYQT5296-09-22 09:45:00 Test Item Value Reference Range Interpretation Comments Segs (test code = Segs) 86.0 45.0-75.0 H [facility]JyfyofnHXJIIXJSSP4756-78-22 09:45:00 Test Item Value Reference Range Interpretation Comments Bands (test code = Bands) 1.0 <=11.0 N [facility] CenterOyuginbVIKENBHXUT9396-28-56 09:45:00 Test Item Value Reference Range Interpretation Comments Lymphocytes # (test code = Lymphocytes 1.6 1.0-5.5 N #) [facility] CenterJnxflqaHHDVHELFIR4223-11-81 09:45:00 Test Item Value Reference Range Interpretation Comments Monocytes # (test code = Monocytes #) 0.0 <=0.8 N [facility] CenterLdziusaQBZYTARKNS4519-33-06 09:45:00 Test Item Value Reference Range Interpretation Comments Segs-Bands # (test code = Segs-Bands #) 13.0 1.5-8.1 H [facility] CenterDyleymiTOLESJKZQN6920-75-31 09:45:00 Test Item Value Reference Range Interpretation Comments Plt Morph (test code = Normal (12/11/2012 N Plt Morph) 03:45:00) [facility] CenterEoymuciPPFOYZWJEC5554-88-53 09:45:00 Test Item Value Reference Range Interpretation Comments Hypochrom (test code = Slight (12/11/2012 N Hypochrom) 03:45:00) [facility] CenterZqqhxjlLSLOSEQWPI8054-92-61 09:45:00 Test Item Value Reference Range Interpretation Comments Myelocytes (test code = Myelocytes) 1.0 H [facility] CenterWllmrhsCSCWYJZHOL6773-98-54 09:45:00 Test Item Value Reference Range Interpretation Comments Atypical Lymphs (test code = Atypical 0.0 N Lymphs) [facility] CenterHuyeevnBFVLCKRBXN6441-36-25 09:45:00 Test Item Value Reference Range Interpretation Comments Monocytes (test code = Monocytes) 0.0 2.0-12.0 L [facility] CenterUuogiycYHTZCSQOBA5735-16-71 09:45:00 Test Item Value Reference Range Interpretation Comments Metamyelocytes (test code = 1.0 <=1.0 N Metamyelocytes) [facility] CenterTscaarfOMLLTBOPUS2565-78-42 09:45:00 Test Item Value Reference Range Interpretation Comments RDW (test code = RDW) 16.2 11.5-14.5 H [facility] CenterKsnisrjCEZNGVRYGT2022-99-73 09:45:00 Test Item Value Reference Range Interpretation Comments Platelet (test code = Platelet) 268 133-450 N [facility] CenterOpfuymqPKVVJBPQJJ7240-98-81 09:45:00 Test Item Value Reference Range Interpretation Comments MPV (test code = MPV) 9.0 7.4-10.4 N [facility] CenterXscwtjpHDXFUTAXRV4436-68-97 09:45:00 Test Item Value Reference Range Interpretation Comments MCV (test code = MCV) 81.2 81.0-99.0 N [facility] CenterZetlawvSZYWRQRREJ2776-92-25 09:45:00 Test Item Value Reference Range Interpretation Comments MCH (test code = MCH) 25.7 pg 27.0-31.0 L [facility] CenterRznkfyoPKQHRBIMTY5060-96-27 09:45:00 Test Item Value Reference Range Interpretation Comments MCHC (test code = MCHC) 31.6 32.0-36.0 L [facility] CenterCdfpyphSHABWNQSPL0530-01-91 09:45:00 Test Item Value Reference Range Interpretation Comments WBC (test code = WBC) 15.0 3.7-10.4 H [facility] CenterOlzoxrrWVYVAOWKXT4386-33-37 09:45:00 Test Item Value Reference Range Interpretation Comments Hct (test code = Hct) 31.9 36.0-48.0 L [facility] CenterGqjsgpcUNROHQSCBH3443-24-54 09:45:00 Test Item Value Reference Range Interpretation Comments Hgb (test code = Hgb) 10.1 12.0-16.0 L [facility] CenterKyqxwrqFFMFRLAYTL6319-91-86 09:45:00 Test Item Value Reference Range Interpretation Comments RBC (test code = RBC) 3.93 4.20-5.40 L [facility] CenterRxfxfraTMCXPEJFT2733-34-23 09:45:00 Test Item Value Reference Range Interpretation Comments Globulin (test code = Globulin) 2.6 2.0-4.0 N [facility] CenterFcbtdijERAEGJPAA1450-73-95 09:45:00 Test Item Value Reference Range Interpretation Comments AST (test code = AST) 31 <=37 N [facility] CenterNfmtsqnFQSHXJZVN5368-42-60 09:45:00 Test Item Value Reference Range Interpretation Comments Bili Total (test code = Bili Total) 0.4 0.2-1.3 N [facility] CenterIyzmmkiZXZVHCRIU6854-51-30 09:45:00 Test Item Value Reference Range Interpretation Comments Alk Phos (test code = Alk Phos) 57 39-136 N [facility] CenterXpouzmkIVYCEYNIJ1952-99-16 09:45:00 Test Item Value Reference Range Interpretation Comments ALT (test code = ALT) 35 <=65 N [facility] CenterIphrnoyJEHPDVXCG5413-83-28 09:45:00 Test Item Value Reference Range Interpretation Comments Total Protein (test code = Total 5.9 6.4-8.4 L Protein) [facility] CenterWyzlbbnGWVLHJFLX7456-02-88 09:45:00 Test Item Value Reference Range Interpretation Comments eGFR (test code = eGFR) 121 [facility] CenterNfmocexKEHQZYQEG0380-73-25 09:45:00 Test Item Value Reference Range Interpretation Comments Calcium Lvl (test code = Calcium Lvl) 8.1 8.5-10.5 L [facility] CenterIzvduhfJAGMVEUEL6481-24-66 09:45:00 Test Item Value Reference Range Interpretation Comments Albumin Lvl (test code = Albumin Lvl) 3.3 3.5-5.0 L [facility] CenterFrsadacLKRIETLYZ2019-24-82 09:45:00 Test Item Value Reference Range Interpretation Comments Chloride Lvl (test code = Chloride Lvl) 104 95-109 N [facility] CenterDeiijxuJWASWKXVP8775-27-58 09:45:00 Test Item Value Reference Range Interpretation Comments CO2 (test code = CO2) 24 24-32 N [facility] CenterFrttdnnFFMVXSRTP2944-18-84 09:45:00 Test Item Value Reference Range Interpretation Comments Sodium Lvl (test code = Sodium Lvl) 140 135-145 N [facility] CenterSuauzapCYPBYCHJJ0113-84-52 09:45:00 Test Item Value Reference Range Interpretation Comments Potassium Lvl (test code = Potassium 4.2 3.5-5.1 N Lvl) [facility] CenterVldoknoEIUWFPZBO5620-35-08 09:45:00 Test Item Value Reference Range Interpretation Comments BUN (test code = BUN) 8 7-22 N [facility] CenterOfbwaqbJFOAIKHAR5538-47-23 09:45:00 Test Item Value Reference Range Interpretation Comments Creatinine Lvl (test code = Creatinine 0.6 0.5-1.4 N Lvl) [facility] CenterVujxrftJIGQIQSQM4134-02-86 09:45:00 Test Item Value Reference Range Interpretation Comments Glucose Lvl (test code = Glucose Lvl) 87 70-99 N [facility] CenterJlziikmMVRWLVJPY1649-01-82 09:45:00 Test Item Value Reference Range Interpretation Comments AGAP (test code = AGAP) 16.2 10.0-20.0 N [facility] CenterGhvllqoBQOHLXTHH6684-09-86 09:45:00 Test Item Value Reference Range Interpretation Comments A/G Ratio (test code = A/G Ratio) 1.3 0.7-1.6 N [facility] CenterOtaehluAUFVKFYJV0907-15-91 09:45:00 Test Item Value Reference Range Interpretation Comments Globulin (test code = Globulin) 2.6 2.0-4.0 N [facility] CenterOkljlhnSNWPXAPQB2612-48-74 09:45:00 Test Item Value Reference Range Interpretation Comments AGAP (test code = AGAP) 16.2 10.0-20.0 N [facility] CenterNjijnxlBYMKQEJWA9028-76-00 09:45:00 Test Item Value Reference Range Interpretation Comments B/C Ratio (test code = B/C Ratio) 13 6-25 N [facility] CenterJzodjeeQAQNZVXEGA8773-14-02 09:45:00 Test Item Value Reference Range Interpretation Comments Lymphocytes (test code = Lymphocytes) 11.0 20.0-40.0 L [facility] CenterLnzvdlqEHVGOPPKOE1141-04-82 09:45:00 Test Item Value Reference Range Interpretation Comments Segs (test code = Segs) 86.0 45.0-75.0 H [facility] CenterJazzrhhYSTJTRHIHZ5325-68-19 09:45:00 Test Item Value Reference Range Interpretation Comments Bands (test code = Bands) 1.0 <=11.0 N [facility] CenterBgizmsyDCYYINIQII4287-13-52 09:45:00 Test Item Value Reference Range Interpretation Comments Lymphocytes # (test code = Lymphocytes 1.6 1.0-5.5 N #) [facility] CenterIumqerzFVSIBUGRIQ3704-59-79 09:45:00 Test Item Value Reference Range Interpretation Comments Monocytes # (test code = Monocytes #) 0.0 <=0.8 N [facility] CenterKyuueinROQYXJKKQC7108-23-55 09:45:00 Test Item Value Reference Range Interpretation Comments Segs-Bands # (test code = Segs-Bands #) 13.0 1.5-8.1 H [facility] CenterScggujqWTJFFOFAKD7540-85-68 09:45:00 Test Item Value Reference Range Interpretation Comments Plt Morph (test code = Normal (12/11/2012 N Plt Morph) 03:45:00) [facility] CenterBhzvudaCOLZTGPCVG9121-52-04 09:45:00 Test Item Value Reference Range Interpretation Comments Hypochrom (test code = Slight (12/11/2012 N Hypochrom) 03:45:00) [facility] CenterTuzygipQIJILGSIKC9302-90-92 09:45:00 Test Item Value Reference Range Interpretation Comments Myelocytes (test code = Myelocytes) 1.0 H [facility] CenterFsvifitIFESCSFGTS2171-62-99 09:45:00 Test Item Value Reference Range Interpretation Comments Atypical Lymphs (test code = Atypical 0.0 N Lymphs) [facility] CenterOtosgrtCIEIZKLESA6278-66-27 09:45:00 Test Item Value Reference Range Interpretation Comments Monocytes (test code = Monocytes) 0.0 2.0-12.0 L [facility] CenterVcsnemoEXYESIUGII0110-52-89 09:45:00 Test Item Value Reference Range Interpretation Comments Metamyelocytes (test code = 1.0 <=1.0 N Metamyelocytes) [facility] CenterBkawtakUDIDMZTADL9390-58-29 09:45:00 Test Item Value Reference Range Interpretation Comments RDW (test code = RDW) 16.2 11.5-14.5 H [facility] CenterXjkuznkHJFWNPGSSK3788-50-87 09:45:00 Test Item Value Reference Range Interpretation Comments Platelet (test code = Platelet) 268 133-450 N [facility] CenterYjangniUDJWOQXPOS3508-63-09 09:45:00 Test Item Value Reference Range Interpretation Comments MPV (test code = MPV) 9.0 7.4-10.4 N [place] [address]-03-08 09:45:00 Test Item Value Reference Range Interpretation Comments MCV (test code = MCV) 81.2 81.0-99.0 N [facility] CenterGlblfizOHDEBCAHXI0342-72-53 09:45:00 Test Item Value Reference Range Interpretation Comments MCH (test code = MCH) 25.7 pg 27.0-31.0 L [facility] CenterHjirpqcBRPZMHRKYQ3297-53-04 09:45:00 Test Item Value Reference Range Interpretation Comments MCHC (test code = MCHC) 31.6 32.0-36.0 L [facility] CenterRonnoxtBGMREONVUL3094-58-66 09:45:00 Test Item Value Reference Range Interpretation Comments WBC (test code = WBC) 15.0 3.7-10.4 H [facility] CenterQptwpebXHEFRMDKZW9179-70-95 09:45:00 Test Item Value Reference Range Interpretation Comments Hct (test code = Hct) 31.9 36.0-48.0 L [facility] CenterRhgkrspHSVGFSONRY2480-42-80 09:45:00 Test Item Value Reference Range Interpretation Comments Hgb (test code = Hgb) 10.1 12.0-16.0 L [facility] CenterTopclcbMHGHUYVJMG2859-08-03 09:45:00 Test Item Value Reference Range Interpretation Comments RBC (test code = RBC) 3.93 4.20-5.40 L [facility] CenterNqcqsavWGFYKHALA7203-46-50 09:45:00 Test Item Value Reference Range Interpretation Comments B/C Ratio (test code = B/C Ratio) 13 6-25 N [facility] CenterXlwaimmEYVAMLYBQ4300-32-89 09:45:00 Test Item Value Reference Range Interpretation Comments AST (test code = AST) 31 <=37 N [facility] CenterFjwlqumGFULQTLMM3956-81-99 09:45:00 Test Item Value Reference Range Interpretation Comments Bili Total (test code = Bili Total) 0.4 0.2-1.3 N [facility] CenterNitgtyzYVDLXHLZO5990-82-21 09:45:00 Test Item Value Reference Range Interpretation Comments Alk Phos (test code = Alk Phos) 57 39-136 N [facility] CenterKeekuroJAUDHKGLR3982-47-96 09:45:00 Test Item Value Reference Range Interpretation Comments ALT (test code = ALT) 35 <=65 N [facility] CenterTjdixxhAXVZFXTGL3595-14-79 09:45:00 Test Item Value Reference Range Interpretation Comments Total Protein (test code = Total 5.9 6.4-8.4 L Protein) [facility] CenterPuwdhtqTOHSZDWYD9804-01-13 09:45:00 Test Item Value Reference Range Interpretation Comments eGFR (test code = eGFR) 121 [facility] CenterTomrbcmWKGBMZDIW7730-46-60 09:45:00 Test Item Value Reference Range Interpretation Comments Calcium Lvl (test code = Calcium Lvl) 8.1 8.5-10.5 L [facility] CenterEpvxsjbYOREQBHQL8363-88-80 09:45:00 Test Item Value Reference Range Interpretation Comments Albumin Lvl (test code = Albumin Lvl) 3.3 3.5-5.0 L [facility] CenterMcyxniaXERDDWYUD6041-20-27 09:45:00 Test Item Value Reference Range Interpretation Comments Chloride Lvl (test code = Chloride Lvl) 104 95-109 N [facility] CenterSpocrroSZCPFWERC4083-14-84 09:45:00 Test Item Value Reference Range Interpretation Comments CO2 (test code = CO2) 24 24-32 N [facility] CenterIaqmdhoTOSKGHZAJ5088-28-48 09:45:00 Test Item Value Reference Range Interpretation Comments Sodium Lvl (test code = Sodium Lvl) 140 135-145 N [facility] CenterTyzjgqdMIORNVVUD6224-83-04 09:45:00 Test Item Value Reference Range Interpretation Comments Potassium Lvl (test code = Potassium 4.2 3.5-5.1 N Lvl) [facility] CenterJpomcohPHWWPGYRO8448-27-61 09:45:00 Test Item Value Reference Range Interpretation Comments BUN (test code = BUN) 8 7-22 N [facility] CenterJaebxwrVHULRXKJB8558-36-49 09:45:00 Test Item Value Reference Range Interpretation Comments AST (test code = AST) 31 See_Comment N [Auto mated message] The system which ge nerated this result transmit ashanti reference range : <=37. The reference range was not used to interpr et this result as carmen l/abnormal. [facility]ExrclyiNOYHLRBUU5212-91-29 09:45:00 Test Item Value Reference Range Interpretation Comments Creatinine Lvl (test code = Creatinine 0.6 0.5-1.4 N Lvl) [facility] CenterLinyhnhNGYMCMJOP8477-38-14 09:45:00 Test Item Value Reference Range Interpretation Comments Glucose Lvl (test code = Glucose Lvl) 87 70-99 N [facility] CenterCyubovyOQLHPGMKS5751-51-69 09:45:00 Test Item Value Reference Range Interpretation Comments A/G Ratio (test code = A/G Ratio) 1.3 0.7-1.6 N [facility] CenterFewhgznTYCFXLATG2414-21-45 09:45:00 Test Item Value Reference Range Interpretation Comments Globulin (test code = Globulin) 2.6 2.0-4.0 N [facility] CenterIvrmokgNYNEZFUCH6957-36-70 09:45:00 Test Item Value Reference Range Interpretation Comments AGAP (test code = AGAP) 16.2 10.0-20.0 N [facility] CenterZmjjcexYFVDCUFJB2192-03-60 09:45:00 Test Item Value Reference Range Interpretation Comments B/C Ratio (test code = B/C Ratio) 13 6-25 N [facility] CenterJjsrppgUEUGZDBRTK2829-62-83 09:45:00 Test Item Value Reference Range Interpretation Comments Lymphocytes (test code = Lymphocytes) 11.0 20.0-40.0 L [facility] CenterJoslspfGODFXOJNUK6341-05-43 09:45:00 Test Item Value Reference Range Interpretation Comments Segs (test code = Segs) 86.0 45.0-75.0 H [facility] CenterMzzcfutXFEWMMAJLK5506-45-04 09:45:00 Test Item Value Reference Range Interpretation Comments Bands (test code = Bands) 1.0 <=11.0 N [facility] CenterYggfcscGRANIMEJZI7107-79-25 09:45:00 Test Item Value Reference Range Interpretation Comments Lymphocytes # (test code = Lymphocytes 1.6 1.0-5.5 N #) [facility] CenterKhgwaqwZSGGKGEGR1897-02-88 09:45:00 Test Item Value Reference Range Interpretation Comments Bili Total (test code = Bili Total) 0.4 0.2-1.3 N [facility] CenterDenwinxMOPVXPOWKI1747-92-65 09:45:00 Test Item Value Reference Range Interpretation Comments Monocytes # (test code = Monocytes #) 0.0 <=0.8 N [facility] CenterDivrxdkPKIUJTUCGJ3461-60-37 09:45:00 Test Item Value Reference Range Interpretation Comments Segs-Bands # (test code = Segs-Bands #) 13.0 1.5-8.1 H [facility] CenterTyhtuohXMKFPHOVOE6685-82-50 09:45:00 Test Item Value Reference Range Interpretation Comments Plt Morph (test code = Normal (12/11/2012 N Plt Morph) 03:45:00) [facility] CenterWdmolfqOJPOWKPQJV1162-06-94 09:45:00 Test Item Value Reference Range Interpretation Comments Hypochrom (test code = Slight (12/11/2012 N Hypochrom) 03:45:00) [facility] CenterIxkbblgJPDTUVPRQS4058-84-51 09:45:00 Test Item Value Reference Range Interpretation Comments Myelocytes (test code = Myelocytes) 1.0 H [facility] CenterOpgfyogFRFVRUVBRK3009-19-83 09:45:00 Test Item Value Reference Range Interpretation Comments Atypical Lymphs (test code = Atypical 0.0 N Lymphs) [facility] CenterIhabpqlEXRCIAIHEQ7807-49-45 09:45:00 Test Item Value Reference Range Interpretation Comments Monocytes (test code = Monocytes) 0.0 2.0-12.0 L [facility] CenterAbbzzojPLCVCZBZNA9433-31-68 09:45:00 Test Item Value Reference Range Interpretation Comments Metamyelocytes (test code = 1.0 <=1.0 N Metamyelocytes) [facility] CenterDodfywjETWQASEMPB4358-30-63 09:45:00 Test Item Value Reference Range Interpretation Comments RDW (test code = RDW) 16.2 11.5-14.5 H [facility] CenterOnxjfbiLABWWYVXHS1760-15-01 09:45:00 Test Item Value Reference Range Interpretation Comments Platelet (test code = Platelet) 268 133-450 N [facility] CenterRqsyxbvQQHXFVKYH0689-33-09 09:45:00 Test Item Value Reference Range Interpretation Comments Alk Phos (test code = Alk Phos) 57 39-136 N [facility] CenterTgswxlhQOKYFSJMHO2232-15-30 09:45:00 Test Item Value Reference Range Interpretation Comments MPV (test code = MPV) 9.0 7.4-10.4 N [facility] CenterCctyrcxLXAJAWMLKZ9967-84-40 09:45:00 Test Item Value Reference Range Interpretation Comments MCV (test code = MCV) 81.2 81.0-99.0 N [facility] CenterQbeyebyUQDDNWSSZF7767-03-42 09:45:00 Test Item Value Reference Range Interpretation Comments MCH (test code = MCH) 25.7 pg 27.0-31.0 L [facility] CenterNmpogsbICFVMBTVPT7437-54-41 09:45:00 Test Item Value Reference Range Interpretation Comments MCHC (test code = MCHC) 31.6 32.0-36.0 L [facility] CenterJocpyplXNBDMPITCQ8812-86-08 09:45:00 Test Item Value Reference Range Interpretation Comments WBC (test code = WBC) 15.0 3.7-10.4 H [facility] CenterJvsljhrSNPSRNXAUN5482-67-33 09:45:00 Test Item Value Reference Range Interpretation Comments Hct (test code = Hct) 31.9 36.0-48.0 L [facility] CenterPrbfwvfIZCOPFELXO5487-08-61 09:45:00 Test Item Value Reference Range Interpretation Comments Hgb (test code = Hgb) 10.1 12.0-16.0 L [facility] CenterLkdyidaXROWDOYMYY4511-24-62 09:45:00 Test Item Value Reference Range Interpretation Comments RBC (test code = RBC) 3.93 4.20-5.40 L [facility] CenterPaltqxiOYCHGWMARR2203-33-03 09:45:00 Test Item Value Reference Range Interpretation Comments Lymphocytes (test code = Lymphocytes) 11.0 20.0-40.0 L [facility] CenterBnqiahhCQBMTOVNW1492-41-47 09:45:00 Test Item Value Reference Range Interpretation Comments ALT (test code = ALT) 35 See_Comment N [Auto mated message] The system which ge nerated this result transmit ashanti reference range : <=65. The reference range was not used to interpr et this result as carmen l/abnormal. [facility] CenterDxdrrybYXTCBTEDP3321-29-72 09:45:00 Test Item Value Reference Range Interpretation Comments Total Protein (test code = Total 5.9 6.4-8.4 L Protein) [facility] CenterWfuvxshKLMGHLOVU4617-67-50 09:45:00 Test Item Value Reference Range Interpretation Comments eGFR (test code = eGFR) 121 [facility] CenterCrzjddpWKANFEHGC5220-03-20 09:45:00 Test Item Value Reference Range Interpretation Comments Calcium Lvl (test code = Calcium Lvl) 8.1 8.5-10.5 L [facility] CenterXofklsdPAKJFJAZH1019-08-30 09:45:00 Test Item Value Reference Range Interpretation Comments Albumin Lvl (test code = Albumin Lvl) 3.3 3.5-5.0 L [facility] CenterCzswfcyQOLWHODNB9938-13-27 09:45:00 Test Item Value Reference Range Interpretation Comments Chloride Lvl (test code = Chloride Lvl) 104 95-109 N [facility] CenterFmduvqpQEELMICCG3727-12-83 09:45:00 Test Item Value Reference Range Interpretation Comments CO2 (test code = CO2) 24 24-32 N [facility] CenterQpoleveOUXCBISTB2701-74-44 09:45:00 Test Item Value Reference Range Interpretation Comments Sodium Lvl (test code = Sodium Lvl) 140 135-145 N [facility] CenterDlkaewtNLJSQJAHV4222-07-57 09:45:00 Test Item Value Reference Range Interpretation Comments Potassium Lvl (test code = Potassium 4.2 3.5-5.1 N Lvl) [facility] CenterIkkdzmnKMNCAZPHE4366-11-13 09:45:00 Test Item Value Reference Range Interpretation Comments BUN (test code = BUN) 8 7-22 N [facility] CenterByqwcrjEIMEDVPKAB8142-84-62 09:45:00 Test Item Value Reference Range Interpretation Comments Segs (test code = Segs) 86.0 45.0-75.0 H [facility] CenterGyrytgfKWTFBXLEV9626-05-57 09:45:00 Test Item Value Reference Range Interpretation Comments Creatinine Lvl (test code = Creatinine 0.6 0.5-1.4 N Lvl) [facility] CenterGlczbjePRMHPUPFH1578-66-95 09:45:00 Test Item Value Reference Range Interpretation Comments Glucose Lvl (test code = Glucose Lvl) 87 70-99 N [facility] CenterVowlbapVYZCXYKBD9974-16-60 09:45:00 Test Item Value Reference Range Interpretation Comments A/G Ratio (test code = A/G Ratio) 1.3 0.7-1.6 N [facility] CenterNqemjuqEEBUCLYBV2508-98-83 09:45:00 Test Item Value Reference Range Interpretation Comments AST (test code = AST) 31 <=37 N [facility] CenterDxoxbqoPOLGOSANR6487-37-63 09:45:00 Test Item Value Reference Range Interpretation Comments Globulin (test code = Globulin) 2.6 2.0-4.0 N [facility] CenterTupywyfXYQKHTLCC7490-53-80 09:45:00 Test Item Value Reference Range Interpretation Comments Bili Total (test code = Bili Total) 0.4 0.2-1.3 N [facility] CenterCjpsxtaYYXGPUSRT7178-88-61 09:45:00 Test Item Value Reference Range Interpretation Comments Alk Phos (test code = Alk Phos) 57 39-136 N [facility] CenterXkpyrtqGISQEMINU3203-42-45 09:45:00 Test Item Value Reference Range Interpretation Comments ALT (test code = ALT) 35 <=65 N [facility] CenterOfujlakNPSADYTOW5906-71-09 09:45:00 Test Item Value Reference Range Interpretation Comments Total Protein (test code = Total 5.9 6.4-8.4 L Protein) [facility] CenterSydooreTLAHVAVCF2223-36-56 09:45:00 Test Item Value Reference Range Interpretation Comments eGFR (test code = eGFR) 121 [facility] CenterXipbmzuQJYKGGTGI0328-68-50 09:45:00 Test Item Value Reference Range Interpretation Comments Calcium Lvl (test code = Calcium Lvl) 8.1 8.5-10.5 L [facility] CenterYjlwjlxSBAWVTEXT6216-93-43 09:45:00 Test Item Value Reference Range Interpretation Comments Albumin Lvl (test code = Albumin Lvl) 3.3 3.5-5.0 L [facility] CenterWgjbmwzDBSRGSRWO3234-12-37 09:45:00 Test Item Value Reference Range Interpretation Comments Chloride Lvl (test code = Chloride Lvl) 104 95-109 N [facility] CenterByvotcjSBWFEQSTK5578-71-13 09:45:00 Test Item Value Reference Range Interpretation Comments CO2 (test code = CO2) 24 24-32 N [facility] CenterIedjmdjEWCKCHUWZ1102-69-52 09:45:00 Test Item Value Reference Range Interpretation Comments Sodium Lvl (test code = Sodium Lvl) 140 135-145 N [facility] CenterNqxefaoISERRCITN1195-54-48 09:45:00 Test Item Value Reference Range Interpretation Comments AGAP (test code = AGAP) 16.2 10.0-20.0 N [facility] CenterMpmqrqtLXGPKUPBZ5026-76-72 09:45:00 Test Item Value Reference Range Interpretation Comments Potassium Lvl (test code = Potassium 4.2 3.5-5.1 N Lvl) [facility] CenterNbiitlpGMFSSNDCZ5462-16-80 09:45:00 Test Item Value Reference Range Interpretation Comments BUN (test code = BUN) 8 7-22 N [facility] CenterUzocpqcJHPKNTIQH5085-64-18 09:45:00 Test Item Value Reference Range Interpretation Comments Creatinine Lvl (test code = Creatinine 0.6 0.5-1.4 N Lvl) [facility] CenterUfyjiznUPQDHPOQZ4086-51-15 09:45:00 Test Item Value Reference Range Interpretation Comments Glucose Lvl (test code = Glucose Lvl) 87 70-99 N [facility] CenterVcymlreGIWSKMUPE4635-30-82 09:45:00 Test Item Value Reference Range Interpretation Comments A/G Ratio (test code = A/G Ratio) 1.3 0.7-1.6 N [facility] CenterLvovepaYSBRYCIQO3764-48-44 09:45:00 Test Item Value Reference Range Interpretation Comments Globulin (test code = Globulin) 2.6 2.0-4.0 N [facility] CenterKmklamqFQEDMXHUU1198-25-66 09:45:00 Test Item Value Reference Range Interpretation Comments AGAP (test code = AGAP) 16.2 10.0-20.0 N [facility] CenterNdzirqlROVADIUGI5014-04-19 09:45:00 Test Item Value Reference Range Interpretation Comments B/C Ratio (test code = B/C Ratio) 13 6-25 N [facility] CenterZshwejuDTKPJAWZYM2388-55-97 09:45:00 Test Item Value Reference Range Interpretation Comments Lymphocytes (test code = Lymphocytes) 11.0 20.0-40.0 L [facility] CenterWvjkeaeQMNWZOTDWA6349-84-98 09:45:00 Test Item Value Reference Range Interpretation Comments Segs (test code = Segs) 86.0 45.0-75.0 H [facility] CenterNlxghxlXNZRPZOFM9077-78-70 09:45:00 Test Item Value Reference Range Interpretation Comments B/C Ratio (test code = B/C Ratio) 13 6-25 N [facility] CenterPejcvceTUARYKJGJS6758-05-18 09:45:00 Test Item Value Reference Range Interpretation Comments Bands (test code = Bands) 1.0 <=11.0 N [facility] CenterZnyhyzpWXSHYVWAMS6520-41-79 09:45:00 Test Item Value Reference Range Interpretation Comments Lymphocytes # (test code = Lymphocytes 1.6 1.0-5.5 N #) [facility] CenterXtxssklTTIUAEJWDC3433-14-15 09:45:00 Test Item Value Reference Range Interpretation Comments Monocytes # (test code = Monocytes #) 0.0 <=0.8 N [facility] CenterWqpzprqLCZAUIQMQB9559-59-97 09:45:00 Test Item Value Reference Range Interpretation Comments Segs-Bands # (test code = Segs-Bands #) 13.0 1.5-8.1 H [facility] CenterPrpwqrxUHBRWIGOCS8417-87-47 09:45:00 Test Item Value Reference Range Interpretation Comments Plt Morph (test code = Normal (12/11/2012 N Plt Morph) 03:45:00) [facility] CenterBnfwrgsHLXNGXSPTT2534-36-26 09:45:00 Test Item Value Reference Range Interpretation Comments Hypochrom (test code = Slight (12/11/2012 N Hypochrom) 03:45:00) [facility] CenterMytvzqxABAOXLRVJD9185-67-56 09:45:00 Test Item Value Reference Range Interpretation Comments Myelocytes (test code = Myelocytes) 1.0 H [facility] CenterEkkwcdhYWUUNAUDUZ0163-31-24 09:45:00 Test Item Value Reference Range Interpretation Comments Atypical Lymphs (test code = Atypical 0.0 N Lymphs) [facility] CenterNqtmvsxRFSPHISWHA4953-54-95 09:45:00 Test Item Value Reference Range Interpretation Comments Monocytes (test code = Monocytes) 0.0 2.0-12.0 L [facility] CenterAwwhsmaVEEIQKEOAH6748-13-18 09:45:00 Test Item Value Reference Range Interpretation Comments Metamyelocytes (test code = 1.0 <=1.0 N Metamyelocytes) [facility] CenterJlecjtwFYAFVTTSFT0754-37-41 09:45:00 Test Item Value Reference Range Interpretation Comments Lymphocytes (test code = Lymphocytes) 11.0 20.0-40.0 L [facility] CenterMzfeospKOVYADNLLI3448-48-25 09:45:00 Test Item Value Reference Range Interpretation Comments RDW (test code = RDW) 16.2 11.5-14.5 H [facility] CenterBlnsoydQFEIVBCKIM4678-55-07 09:45:00 Test Item Value Reference Range Interpretation Comments Platelet (test code = Platelet) 268 133-450 N [facility] CenterJawfoakOEODGPNPGU9135-63-39 09:45:00 Test Item Value Reference Range Interpretation Comments MPV (test code = MPV) 9.0 7.4-10.4 N [facility] CenterZstcltaGIGKRORFUR1557-81-14 09:45:00 Test Item Value Reference Range Interpretation Comments MCV (test code = MCV) 81.2 81.0-99.0 N [facility] CenterTuipxuqLCIRMQANCG7707-96-33 09:45:00 Test Item Value Reference Range Interpretation Comments MCH (test code = MCH) 25.7 pg 27.0-31.0 L [facility] CenterQlihawfVBEPKJCFUL5747-14-59 09:45:00 Test Item Value Reference Range Interpretation Comments MCHC (test code = MCHC) 31.6 32.0-36.0 L [facility] CenterPkmnanfJMKGHXMKSV3901-91-58 09:45:00 Test Item Value Reference Range Interpretation Comments WBC (test code = WBC) 15.0 3.7-10.4 H [facility] CenterWmsggwfYUYAKTJWOY5318-71-01 09:45:00 Test Item Value Reference Range Interpretation Comments Hct (test code = Hct) 31.9 36.0-48.0 L [facility] CenterPjtoottJPJXWYKMZP8796-02-63 09:45:00 Test Item Value Reference Range Interpretation Comments Hgb (test code = Hgb) 10.1 12.0-16.0 L [facility] CenterTrzbszyNJMQVHAHRP6497-87-38 09:45:00 Test Item Value Reference Range Interpretation Comments RBC (test code = RBC) 3.93 4.20-5.40 L [facility] CenterXkcpzwpIBLXHRCTJY9689-67-65 09:45:00 Test Item Value Reference Range Interpretation Comments Segs (test code = Segs) 86.0 45.0-75.0 H [facility] CenterSltrkntWUETAOSOCE0348-80-80 09:45:00 Test Item Value Reference Range Interpretation Comments Bands (test code = 1.0 See_Comment N [Automat ed message] The Bands) system which ge nerated this result transmit ashanti reference range : <=11.0. The reference r megan was not used to interpr et this result as carmen l/abnormal. [facility] CenterSncwojwWDMWEHNOGQ1479-50-75 09:45:00 Test Item Value Reference Range Interpretation Comments Lymphocytes # (test code = Lymphocytes 1.6 1.0-5.5 N #) [facility] CenterVphnjvxSWAADXMOCH4671-59-37 09:45:00 Test Item Value Reference Range Interpretation Comments Bands (test code = 1.0 See_Comment N [Automat ed message] The Bands) system which ge nerated this result transmit ashanti reference range : <=11.0. The reference r megan was not used to interpr et this result as carmen l/abnormal. [facility] CenterEulbopnAWHWQMIPQV0926-96-79 09:45:00 Test Item Value Reference Range Interpretation Comments Monocytes # (test code 0.0 See_Comment N [Aut omated message] The = Monocytes #) system which generated this result tra nsmitted reference range : <=0.8. The reference r megan was not used to int erpret this result as normal/abnormal . [facility] CenterYldnnfcUHYBGDLBPI5580-24-49 09:45:00 Test Item Value Reference Range Interpretation Comments Segs-Bands # (test code = Segs-Bands #) 13.0 1.5-8.1 H [facility] CenterVxvjxybEIHMQTACXE0408-10-93 09:45:00 Test Item Value Reference Range Interpretation Comments Plt Morph (test code = Normal (12/11/2012 N Plt Morph) 03:45:00) [facility] CenterEpjvtalMKPNIUZWDZ8921-68-92 09:45:00 Test Item Value Reference Range Interpretation Comments Hypochrom (test code = Slight (12/11/2012 N Hypochrom) 03:45:00) [facility] CenterSkphyhoEWYKZAIKPM5627-30-48 09:45:00 Test Item Value Reference Range Interpretation Comments Myelocytes (test code = Myelocytes) 1.0 H [facility] CenterQjmpwooKBAVZZQEIP4417-93-51 09:45:00 Test Item Value Reference Range Interpretation Comments Atypical Lymphs (test code = Atypical 0.0 N Lymphs) [facility] CenterBvkvccfMFEIRAEANN7162-37-60 09:45:00 Test Item Value Reference Range Interpretation Comments Monocytes (test code = Monocytes) 0.0 2.0-12.0 L [facility] CenterAgdwiolKQZNINLWKU7248-47-59 09:45:00 Test Item Value Reference Range Interpretation Comments Metamyelocytes (test code 1.0 See_Comment N [ Automated message] = Metamyelocytes) The system which generated this result transmitted ref erence range: <=1.0. T he reference range was not used to int erpret this result as normal/abnormal . [facility] CenterIpsmyihUNRHFKSKOQ8168-45-48 09:45:00 Test Item Value Reference Range Interpretation Comments RDW (test code = RDW) 16.2 11.5-14.5 H [facility] CenterWxcpoinMYCCARYQSK3918-63-20 09:45:00 Test Item Value Reference Range Interpretation Comments Platelet (test code = Platelet) 268 133-450 N [facility] CenterCmaqybkUPCDVSPMMK9151-11-71 09:45:00 Test Item Value Reference Range Interpretation Comments Lymphocytes # (test code = Lymphocytes 1.6 1.0-5.5 N #) [facility] CenterSvpeardJUJJGWUGNS2395-31-71 09:45:00 Test Item Value Reference Range Interpretation Comments MPV (test code = MPV) 9.0 7.4-10.4 N [facility]JvfjwwiRAFQNVXSUK9785-37-96 09:45:00 Test Item Value Reference Range Interpretation Comments MCV (test code = MCV) 81.2 81.0-99.0 N [facility] CenterLpmgdjtGWZGVSXQJI2030-15-23 09:45:00 Test Item Value Reference Range Interpretation Comments MCH (test code = MCH) 25.7 pg 27.0-31.0 L [facility] HospitalHgrteypJQYKDXQZLC5467-51-99 09:45:00 Test Item Value Reference Range Interpretation Comments MCHC (test code = MCHC) 31.6 32.0-36.0 L [facility] HospitalXvyvbiyXGIWWUAGEF9487-58-95 09:45:00 Test Item Value Reference Range Interpretation Comments WBC (test code = WBC) 15.0 3.7-10.4 H [facility] CenterExebjjnINMQIWUMBA7211-76-48 09:45:00 Test Item Value Reference Range Interpretation Comments Hct (test code = Hct) 31.9 36.0-48.0 L [facility] HospitalTsarawdLXDRKZPYLW7140-26-48 09:45:00 Test Item Value Reference Range Interpretation Comments Hgb (test code = Hgb) 10.1 12.0-16.0 L [facility] HospitalAtugehtLCOZWYYIHM2047-14-79 09:45:00 Test Item Value Reference Range Interpretation Comments RBC (test code = RBC) 3.93 4.20-5.40 L [facility] [employer] EZPPALG3364-03-07 15:50:00 Test Item Value Reference Range Interpretation Comments Antibody Scrn (test Negative (12/10/2012 N code = Antibody Scrn) 09:50:00) [employer] [id number] 15:50:00 Test Item Value Reference Range Interpretation Comments ABO/Rh (test code = ABO/Rh) A POS [employer] LOFHOQK7789-38-13 15:50:00 Test Item Value Reference Range Interpretation Comments Antibody Scrn (test Negative (12/10/2012 N code = Antibody Scrn) 09:50:00) [employer] QTSYKBD8917-68-26 15:50:00 Test Item Value Reference Range Interpretation Comments ABO/Rh (test code = ABO/Rh) A POS [employer] DETNCWA2792-65-48 15:50:00 Test Item Value Reference Range Interpretation Comments Antibody Scrn (test Negative (12/10/2012 N code = Antibody Scrn) 09:50:00) [facility] [employer] XRRVYMZ2719-90-71 15:50:00 Test Item Value Reference Range Interpretation Comments ABO/Rh (test code = ABO/Rh) A POS [facility] [employer] USHMETZ2930-33-16 15:50:00 Test Item Value Reference Range Interpretation Comments Antibody Scrn (test Negative (12/10/2012 N code = Antibody Scrn) 09:50:00) [facility] [employer] [id number] 15:50:00 Test Item Value Reference Range Interpretation Comments ABO/Rh (test code = ABO/Rh) A POS [facility] [employer] KFWSZBI3021-29-85 15:50:00 Test Item Value Reference Range Interpretation Comments Antibody Scrn (test Negative (12/10/2012 N code = Antibody Scrn) 09:50:00) [facility] [employer] [id number] 15:50:00 Test Item Value Reference Range Interpretation Comments ABO/Rh (test code = ABO/Rh) A POS [facility] [employer] NSNOLIJ7448-94-41 15:50:00 Test Item Value Reference Range Interpretation Comments Antibody Scrn (test Negative (12/10/2012 N code = Antibody Scrn) 09:50:00) [facility] [employer] [id number] 15:50:00 Test Item Value Reference Range Interpretation Comments ABO/Rh (test code = ABO/Rh) A [facility] [employer] [id number] 15:50:00 Test Item Value Reference Range Interpretation Comments Antibody Scrn (test Negative (12/10/2012 N code = Antibody Scrn) 09:50:00) [facility] [employer] [id number] 15:50:00 Test Item Value Reference Range Interpretation Comments ABO/Rh (test code = ABO/Rh) A [facility] [employer] MKAICAU8355-99-79 15:50:00 Test Item Value Reference Range Interpretation Comments Antibody Scrn (test Negative (12/10/2012 N code = Antibody Scrn) 09:50:00) [facility] [employer] [id number] 15:50:00 Test Item Value Reference Range Interpretation Comments ABO/Rh (test code = ABO/Rh) A POS [facility] [employer] YZCFMFY1790-16-99 15:50:00 Test Item Value Reference Range Interpretation Comments Antibody Scrn (test Negative (12/10/2012 N code = Antibody Scrn) 09:50:00) [facility] [employer] [id number] 15:50:00 Test Item Value Reference Range Interpretation Comments ABO/Rh (test code = ABO/Rh) A POS [facility] [employer] ZUMWXPX3705-02-71 15:50:00 Test Item Value Reference Range Interpretation Comments Antibody Scrn (test Negative (12/10/2012 N code = Antibody Scrn) 09:50:00) [employer] [id number] 15:50:00 Test Item Value Reference Range Interpretation Comments ABO/Rh (test code = ABO/Rh) A [facility] [employer] [id number] 15:50:00 Test Item Value Reference Range Interpretation Comments Antibody Scrn (test Negative (12/10/2012 N code = Antibody Scrn) 09:50:00) [facility] [employer] [id number] 15:50:00 Test Item Value Reference Range Interpretation Comments ABO/Rh (test code = ABO/Rh) A [facility] [employer] [id number] 15:50:00 Test Item Value Reference Range Interpretation Comments Antibody Scrn (test Negative (12/10/2012 N code = Antibody Scrn) 09:50:00) [employer] [id number] 15:50:00 Test Item Value Reference Range Interpretation Comments ABO/Rh (test code = ABO/Rh) [facility] [facility] [id number] 15:50:00 Test Item Value Reference Range Interpretation Comments Antibody Scrn (test Negative (12/10/2012 N code = Antibody Scrn) 09:50:00) [employer] [id number] 15:50:00 Test Item Value Reference Range Interpretation Comments ABO/Rh (test code = ABO/Rh) A [facility] [id number] 15:50:00 Test Item Value Reference Range Interpretation Comments Antibody Scrn (test Negative (12/10/2012 N code = Antibody Scrn) 09:50:00) [employer] [id number] 15:50:00 Test Item Value Reference Range Interpretation Comments ABO/Rh (test code = ABO/Rh) A [email or web address] [id number] 15:50:00 Test Item Value Reference Range Interpretation Comments Antibody Scrn (test Negative (12/10/2012 N code = Antibody Scrn) 09:50:00) [email or web address] [id number] 15:50:00 Test Item Value Reference Range Interpretation Comments ABO/Rh (test code = ABO/Rh) A [facility] [id number] 15:50:00 Test Item Value Reference Range Interpretation Comments Antibody Scrn (test Negative (12/10/2012 N code = Antibody Scrn) 09:50:00) [email or web address] [id number] 15:50:00 Test Item Value Reference Range Interpretation Comments ABO/Rh (test code = ABO/Rh) A [email or web address] [id number] 15:50:00 Test Item Value Reference Range Interpretation Comments Antibody Scrn (test Negative (12/10/2012 N code = Antibody Scrn) 09:50:00) [email or web address] [id number] 15:50:00 Test Item Value Reference Range Interpretation Comments ABO/Rh (test code = ABO/Rh) A [facility] [id number] 15:50:00 Test Item Value Reference Range Interpretation Comments Antibody Scrn (test Negative (12/10/2012 N code = Antibody Scrn) 09:50:00) [email or web address] [id number] 15:50:00 Test Item Value Reference Range Interpretation Comments ABO/Rh (test code = ABO/Rh) A [facility] [id number] 15:50:00 Test Item Value Reference Range Interpretation Comments Antibody Scrn (test Negative (12/10/2012 N code = Antibody Scrn) 09:50:00) [email or web address] [id number] 15:50:00 Test Item Value Reference Range Interpretation Comments ABO/Rh (test code = ABO/Rh) A [facility] [id number] 15:50:00 Test Item Value Reference Range Interpretation Comments Antibody Scrn (test Negative (12/10/2012 N code = Antibody Scrn) 09:50:00) [facility] [employer] [id number] 15:50:00 Test Item Value Reference Range Interpretation Comments ABO/Rh (test code = ABO/Rh) A [facility] [employer] [id number] 15:50:00 Test Item Value Reference Range Interpretation Comments Antibody Scrn (test Negative (12/10/2012 N code = Antibody Scrn) 09:50:00) [facility] [id number] 15:50:00 Test Item Value Reference Range Interpretation Comments ABO/Rh (test code = ABO/Rh) A [facility] [employer] [id number] 15:50:00 Test Item Value Reference Range Interpretation Comments Antibody Scrn (test Negative (12/10/2012 N code = Antibody Scrn) 09:50:00) [facility] [id number] 15:50:00 Test Item Value Reference Range Interpretation Comments ABO/Rh (test code = ABO/Rh) A [facility] [id number] 15:50:00 Test Item Value Reference Range Interpretation Comments Antibody Scrn (test Negative (12/10/2012 N code = Antibody Scrn) 09:50:00) [facility] [id number] 15:50:00 Test Item Value Reference Range Interpretation Comments ABO/Rh (test code = ABO/Rh) A [facility] [id number] 15:50:00 Test Item Value Reference Range Interpretation Comments Antibody Scrn (test Negative (12/10/2012 N code = Antibody Scrn) 09:50:00) [facility] [employer] [facility] [id number] 15:50:00 Test Item Value Reference Range Interpretation Comments ABO/Rh (test code = ABO/Rh) A [facility] [employer] [facility] [id number] 15:50:00 Test Item Value Reference Range Interpretation Comments Antibody Scrn (test Negative (12/10/2012 N code = Antibody Scrn) 09:50:00) [facility] [id number] 15:50:00 Test Item Value Reference Range Interpretation Comments ABO/Rh (test code = ABO/Rh) A [facility] [id number] 15:50:00 Test Item Value Reference Range Interpretation Comments Antibody Scrn (test Negative (12/10/2012 N code = Antibody Scrn) 09:50:00) [facility] [employer] [id number] 15:50:00 Test Item Value Reference Range Interpretation Comments ABO/Rh (test code = ABO/Rh) A [facility] [id number] 15:50:00 Test Item Value Reference Range Interpretation Comments Antibody Scrn (test Negative (12/10/2012 N code = Antibody Scrn) 09:50:00) [facility] [id number] 15:50:00 Test Item Value Reference Range Interpretation Comments ABO/Rh (test code = ABO/Rh) A [facility] [id number] 15:50:00 Test Item Value Reference Range Interpretation Comments Antibody Scrn (test Negative (12/10/2012 N code = Antibody Scrn) 09:50:00) [facility] [id number] 15:50:00 Test Item Value Reference Range Interpretation Comments ABO/Rh (test code = ABO/Rh) A [facility] [id number] 15:50:00 Test Item Value Reference Range Interpretation Comments Antibody Scrn (test Negative (12/10/2012 N code = Antibody Scrn) 09:50:00) [facility] [id number] 15:50:00 Test Item Value Reference Range Interpretation Comments ABO/Rh (test code = ABO/Rh) A [facility] [id number] 15:50:00 Test Item Value Reference Range Interpretation Comments Antibody Scrn (test Negative (12/10/2012 N code = Antibody Scrn) 09:50:00) [facility] [employer] [id number] 15:50:00 Test Item Value Reference Range Interpretation Comments ABO/Rh (test code = ABO/Rh) A [facility] [id number] 15:50:00 Test Item Value Reference Range Interpretation Comments Antibody Scrn (test Negative (12/10/2012 N code = Antibody Scrn) 09:50:00) [facility] [id number] 15:50:00 Test Item Value Reference Range Interpretation Comments ABO/Rh (test code = ABO/Rh) A [facility] [id number] 15:50:00 Test Item Value Reference Range Interpretation Comments Antibody Scrn (test Negative (12/10/2012 N code = Antibody Scrn) 09:50:00) [facility] [id number] 15:50:00 Test Item Value Reference Range Interpretation Comments ABO/Rh (test code = ABO/Rh) A [facility] [id number] 15:50:00 Test Item Value Reference Range Interpretation Comments Antibody Scrn (test Negative (12/10/2012 N code = Antibody Scrn) 09:50:00) [facility] [id number] 15:50:00 Test Item Value Reference Range Interpretation Comments ABO/Rh (test code = ABO/Rh) A [facility] [id number] 15:50:00 Test Item Value Reference Range Interpretation Comments Antibody Scrn (test Negative (12/10/2012 N code = Antibody Scrn) 09:50:00) [facility] [id number] 15:50:00 Test Item Value Reference Range Interpretation Comments ABO/Rh (test code = ABO/Rh) A [facility] [id number] 15:50:00 Test Item Value Reference Range Interpretation Comments Antibody Scrn (test Negative (12/10/2012 N code = Antibody Scrn) 09:50:00) [email or web address] [id number] 15:50:00 Test Item Value Reference Range Interpretation Comments ABO/Rh (test code = ABO/Rh) A [facility] [id number] 15:50:00 Test Item Value Reference Range Interpretation Comments Antibody Scrn (test Negative (12/10/2012 N code = Antibody Scrn) 09:50:00) [facility] [id number] 15:50:00 Test Item Value Reference Range Interpretation Comments ABO/Rh (test code = ABO/Rh) A [facility] [id number] 15:50:00 Test Item Value Reference Range Interpretation Comments Antibody Scrn (test Negative (12/10/2012 N code = Antibody Scrn) 09:50:00) [employer] [id number] 15:50:00 Test Item Value Reference Range Interpretation Comments ABO/Rh (test code = ABO/Rh) A [facility] [id number] 15:50:00 Test Item Value Reference Range Interpretation Comments Antibody Scrn (test Negative (12/10/2012 N code = Antibody Scrn) 09:50:00) [facility] [id number] 15:50:00 Test Item Value Reference Range Interpretation Comments ABO/Rh (test code = ABO/Rh) A [facility] [id number] 15:50:00 Test Item Value Reference Range Interpretation Comments Antibody Scrn (test Negative (12/10/2012 N code = Antibody Scrn) 09:50:00) [employer] [id number] 15:50:00 Test Item Value Reference Range Interpretation Comments ABO/Rh (test code = ABO/Rh) A [facility] [id number] 15:50:00 Test Item Value Reference Range Interpretation Comments Antibody Scrn (test Negative (12/10/2012 N code = Antibody Scrn) 09:50:00) [employer] [id number] 15:50:00 Test Item Value Reference Range Interpretation Comments ABO/Rh (test code = ABO/Rh) A [facility] [employer] [id number] 15:50:00 Test Item Value Reference Range Interpretation Comments Antibody Scrn (test Negative (12/10/2012 N code = Antibody Scrn) 09:50:00) [facility] [id number] 15:50:00 Test Item Value Reference Range Interpretation Comments ABO/Rh (test code = ABO/Rh) A [facility] [employer] [id number] 15:50:00 Test Item Value Reference Range Interpretation Comments Antibody Scrn (test Negative (12/10/2012 N code = Antibody Scrn) 09:50:00) [employer] [id number] 15:50:00 Test Item Value Reference Range Interpretation Comments ABO/Rh (test code = ABO/Rh) [facility] [id number] 15:50:00 Test Item Value Reference Range Interpretation Comments Antibody Scrn (test Negative (12/10/2012 N code = Antibody Scrn) 09:50:00) [facility] [id number] 15:50:00 Test Item Value Reference Range Interpretation Comments ABO/Rh (test code = ABO/Rh) A [facility] [id number] 15:50:00 Test Item Value Reference Range Interpretation Comments Antibody Scrn (test Negative (12/10/2012 N code = Antibody Scrn) 09:50:00) [facility] [id number] 15:50:00 Test Item Value Reference Range Interpretation Comments ABO/Rh (test code = ABO/Rh) A [facility] [id number] 15:50:00 Test Item Value Reference Range Interpretation Comments Antibody Scrn (test Negative (12/10/2012 N code = Antibody Scrn) 09:50:00) [facility] [id number] 15:50:00 Test Item Value Reference Range Interpretation Comments ABO/Rh (test code = ABO/Rh) A [facility] [id number] 15:50:00 Test Item Value Reference Range Interpretation Comments Antibody Scrn (test Negative (12/10/2012 N code = Antibody Scrn) 09:50:00) [facility] [id number] 15:50:00 Test Item Value Reference Range Interpretation Comments ABO/Rh (test code = ABO/Rh) A [facility] [id number] 15:50:00 Test Item Value Reference Range Interpretation Comments Antibody Scrn (test Negative (12/10/2012 N code = Antibody Scrn) 09:50:00) [facility] [id number] 15:50:00 Test Item Value Reference Range Interpretation Comments ABO/Rh (test code = ABO/Rh) A [facility] [id number] 15:50:00 Test Item Value Reference Range Interpretation Comments Antibody Scrn (test Negative (12/10/2012 N code = Antibody Scrn) 09:50:00) [facility] [id number] 15:50:00 Test Item Value Reference Range Interpretation Comments ABO/Rh (test code = ABO/Rh) A [facility] [id number] 15:50:00 Test Item Value Reference Range Interpretation Comments Antibody Scrn (test Negative (12/10/2012 N code = Antibody Scrn) 09:50:00) [facility] [id number] 15:50:00 Test Item Value Reference Range Interpretation Comments ABO/Rh (test code = ABO/Rh) A [facility] [id number] 15:50:00 Test Item Value Reference Range Interpretation Comments Antibody Scrn (test Negative (12/10/2012 N code = Antibody Scrn) 09:50:00) [facility] [id number] 15:50:00 Test Item Value Reference Range Interpretation Comments ABO/Rh (test code = ABO/Rh) A [facility] [id number] 15:50:00 Test Item Value Reference Range Interpretation Comments Antibody Scrn (test Negative (12/10/2012 N code = Antibody Scrn) 09:50:00) [facility] [id number] 15:50:00 Test Item Value Reference Range Interpretation Comments ABO/Rh (test code = ABO/Rh) A [facility] [id number] 15:50:00 Test Item Value Reference Range Interpretation Comments Antibody Scrn (test Negative (12/10/2012 N code = Antibody Scrn) 09:50:00) [facility] [id number] 15:50:00 Test Item Value Reference Range Interpretation Comments ABO/Rh (test code = ABO/Rh) A [facility] [id number] 15:50:00 Test Item Value Reference Range Interpretation Comments Antibody Scrn (test Negative (12/10/2012 N code = Antibody Scrn) 09:50:00) [facility] [id number] 15:50:00 Test Item Value Reference Range Interpretation Comments ABO/Rh (test code = ABO/Rh) A [facility] [id number] 15:50:00 Test Item Value Reference Range Interpretation Comments Antibody Scrn (test Negative (12/10/2012 N code = Antibody Scrn) 09:50:00) [employer] [id number] 15:50:00 Test Item Value Reference Range Interpretation Comments ABO/Rh (test code = ABO/Rh) A [facility] [employer] [id number] 15:50:00 Test Item Value Reference Range Interpretation Comments Antibody Scrn (test Negative (12/10/2012 N code = Antibody Scrn) 09:50:00) [facility] [id number] 15:50:00 Test Item Value Reference Range Interpretation Comments ABO/Rh (test code = ABO/Rh) A [facility] [id number] 15:50:00 Test Item Value Reference Range Interpretation Comments Antibody Scrn (test Negative (12/10/2012 N code = Antibody Scrn) 09:50:00) [employer] [id number] 15:50:00 Test Item Value Reference Range Interpretation Comments ABO/Rh (test code = ABO/Rh) A [facility] [employer] [id number] 15:50:00 Test Item Value Reference Range Interpretation Comments Antibody Scrn (test Negative (12/10/2012 N code = Antibody Scrn) 09:50:00) [employer] [id number] 15:50:00 Test Item Value Reference Range Interpretation Comments ABO/Rh (test code = ABO/Rh) A [facility] [id number] 20:32:00 Test Item Value Reference Range Interpretation Comments A/G Ratio (test code = A/G Ratio) 0.9 0.7-1.6 N [facility] [id number] 20:32:00 Test Item Value Reference Range Interpretation Comments Globulin (test code = Globulin) 4.4 2.0-4.0 H [facility] [id number] 20:32:00 Test Item Value Reference Range Interpretation Comments AGAP (test code = AGAP) 13.0 10.0-20.0 N [facility] [id number] 20:32:00 Test Item Value Reference Range Interpretation Comments B/C Ratio (test code = B/C Ratio) 18 6-25 N [facility] [id number] 20:32:00 Test Item Value Reference Range Interpretation Comments AST (test code = AST) 24 See_Comment N [Auto mated message] The system which ge nerated this result transmit ashanti reference range : <=37. The reference range was not used to interpr et this result as carmen l/abnormal. [id number] 20:32:00 Test Item Value Reference Range Interpretation Comments Bili Total (test code = Bili Total) 0.5 0.2-1.3 N [facility] CenterUednbasERUCBXEGV5594-29-03 20:32:00 Test Item Value Reference Range Interpretation Comments Alk Phos (test code = Alk Phos) 98 39-136 N [facility] CenterAjuvmsrRWBTZOKZN5609-16-24 20:32:00 Test Item Value Reference Range Interpretation Comments ALT (test code = ALT) 37 See_Comment N [Auto mated message] The system which ge nerated this result transmit ashanti reference range : <=65. The reference range was not used to interpr et this result as carmen l/abnormal. [facility] CenterRabbvsyEZMAMFVWQ0787-45-37 20:32:00 Test Item Value Reference Range Interpretation Comments Total Protein (test code = Total 8.5 6.4-8.4 H Protein) [facility] CenterXnzcozdXZCLAQMTA7213-28-40 20:32:00 Test Item Value Reference Range Interpretation Comments eGFR (test code = eGFR) 128 [facility] CenterEkmzyamDZYWYOBWG8621-64-56 20:32:00 Test Item Value Reference Range Interpretation Comments Albumin Lvl (test code = Albumin Lvl) 4.1 3.5-5.0 N [facility] CenterSnikiizKNSVQVWIF6131-31-93 20:32:00 Test Item Value Reference Range Interpretation Comments Chloride Lvl (test code = Chloride Lvl) 100 95-109 N [facility] CenterOukjwsmWEBNXVCSR5607-94-35 20:32:00 Test Item Value Reference Range Interpretation Comments Potassium Lvl (test code = Potassium 4.0 3.5-5.1 N Lvl) [facility] CenterQqqprxcRWTGSVIWP4485-05-22 20:32:00 Test Item Value Reference Range Interpretation Comments CO2 (test code = CO2) 28 24-32 N [facility] CenterNetnyisMCQGZGDHE3841-86-28 20:32:00 Test Item Value Reference Range Interpretation Comments Sodium Lvl (test code = Sodium Lvl) 137 135-145 N [facility] CenterLmqachyTVLKGTHQE3080-63-19 20:32:00 Test Item Value Reference Range Interpretation Comments Calcium Lvl (test code = Calcium Lvl) 9.1 8.5-10.5 N [facility] CenterUtkugwqXJNOYBXMU5125-98-13 20:32:00 Test Item Value Reference Range Interpretation Comments Creatinine Lvl (test code = Creatinine 0.5 0.5-1.4 N Lvl) [facility] CenterYjehdpaRJJVYDHCJ1985-23-74 20:32:00 Test Item Value Reference Range Interpretation Comments Glucose Lvl (test code = Glucose Lvl) 81 70-99 N [facility] CenterJkvxajtEMRZMKDVE7647-95-22 20:32:00 Test Item Value Reference Range Interpretation Comments BUN (test code = BUN) 9 7-22 N [facility] CenterSclnrtpDEAZDDUYZ7713-03-20 20:32:00 Test Item Value Reference Range Interpretation Comments Vitamin D 1,25 (OH)2 Total (test code = 52 18-72 Vitamin D 1,25 (OH)2 Total) [facility] CenterPiuyzrmEINGAXJDL3875-89-99 20:32:00 Test Item Value Reference Range Interpretation Comments Vitamin D2 1,25 (OH)2 (test code = no gt Vitamin D2 1,25 (OH)2) [facility] CenterZcbkpmwOHUDQXYLQ6652-09-63 20:32:00 Test Item Value Reference Range Interpretation Comments Vitamin D3 1,25 (OH)2 (test code = 52 Vitamin D3 1,25 (OH)2) [facility]VnjorxtDOHKETDBHW8434-47-52 20:32:00 Test Item Value Reference Range Interpretation Comments MPV (test code = MPV) 8.7 7.4-10.4 N [facility] CenterRvlyzspBWQKOVAJYB6724-80-05 20:32:00 Test Item Value Reference Range Interpretation Comments Hgb (test code = Hgb) 12.0 12.0-16.0 N [facility] CenterGjozjnrZSEXTVWFUZ0636-46-19 20:32:00 Test Item Value Reference Range Interpretation Comments RBC (test code = RBC) 4.51 4.20-5.40 N [facility] CenterOtiaovdVNTVVQAPDV1738-13-62 20:32:00 Test Item Value Reference Range Interpretation Comments WBC (test code = WBC) 15.6 3.7-10.4 H [facility] CenterFrjwqaqCUUMORYZTD2659-79-71 20:32:00 Test Item Value Reference Range Interpretation Comments Hct (test code = Hct) 37.0 36.0-48.0 N [facility] CenterHlqaarzIDFRKCYDMC0234-44-21 20:32:00 Test Item Value Reference Range Interpretation Comments MCV (test code = MCV) 82.0 81.0-99.0 N [facility] CenterSuuwlowMGRAFYAZOB9603-93-13 20:32:00 Test Item Value Reference Range Interpretation Comments RDW (test code = RDW) 15.9 11.5-14.5 H [facility] CenterXvvayneCITRSLVGAH1882-25-34 20:32:00 Test Item Value Reference Range Interpretation Comments MCHC (test code = MCHC) 32.3 32.0-36.0 N [facility] CenterPrqoacxOMMXATYZEZ3611-24-82 20:32:00 Test Item Value Reference Range Interpretation Comments MCH (test code = MCH) 26.5 pg 27.0-31.0 L [facility] CenterCcharqpSIKDCGWIOC9731-13-54 20:32:00 Test Item Value Reference Range Interpretation Comments Platelet (test code = Platelet) 371 133-450 N [facility] CenterKbhprljCPCUHAHSZX1492-88-22 20:32:00 Test Item Value Reference Range Interpretation Comments Polychrom (test code = Slight (11/26/2012 N Polychrom) 14:32:00) [facility] CenterWifoowvWXBQNPFXTK4134-39-46 20:32:00 Test Item Value Reference Range Interpretation Comments Large Plt (test code = Slight *ABN*(11/26/2012 A Large Plt) 14:32:00) [facility] CenterAwhotkbIUZEXLCUBC4980-46-27 20:32:00 Test Item Value Reference Range Interpretation Comments Segs (test code = Segs) 73.0 45.0-75.0 N [facility] CenterPpfxpfuPMLHHKETYC2468-05-40 20:32:00 Test Item Value Reference Range Interpretation Comments Eosinophils # (test code 0.2 See_Comment N [A utomated message] The = Eosinophils #) system whic h generated this result tra nsmitted reference range : <=0.5. The reference r megan was not used to int erpret this result as normal/abnormal . [facility] CenterBjldsyrPPTMWMZGOV2595-68-32 20:32:00 Test Item Value Reference Range Interpretation Comments Basophils # (test code 0.1 See_Comment N [Aut omated message] The = Basophils #) system which generated this result tra nsmitted reference range : <=0.2. The reference r megan was not used to int erpret this result as normal/abnormal . [facility] CenterIafuqjsBHJRGOROKK2853-24-15 20:32:00 Test Item Value Reference Range Interpretation Comments Lymphocytes (test code = Lymphocytes) 21.3 20.0-40.0 N [facility] CenterKaadvjgPBHIENGWYU1933-19-73 20:32:00 Test Item Value Reference Range Interpretation Comments Segs-Bands # (test code = Segs-Bands #) 11.4 1.5-8.1 H [facility] CenterAppsltyKZKVXOKRUY8497-76-90 20:32:00 Test Item Value Reference Range Interpretation Comments Eosinophils (test code = 1.1 See_Comment N [A utomated message] The Eosinophils) system which ge nerated this result tra nsmitted reference range : <=4.0. The reference r megan was not used to int erpret this result as normal/abnormal . [facility] CenterVkrjiqoQRDJXPVARP4250-51-69 20:32:00 Test Item Value Reference Range Interpretation Comments Basophils (test code = 0.5 See_Comment N [Aut omated message] The Basophils) system which ge nerated this result tra nsmitted reference range : <=1.0. The reference r megan was not used to int erpret this result as normal/abnormal . [facility] CenterYrjexpiTAXLSUDVKI7000-94-37 20:32:00 Test Item Value Reference Range Interpretation Comments Monocytes (test code = Monocytes) 4.1 2.0-12.0 N [facility] CenterErptblbRECZAHNTFG4141-62-46 20:32:00 Test Item Value Reference Range Interpretation Comments Lymphocytes # (test code = Lymphocytes 3.3 1.0-5.5 N #) [facility] CenterAduudvaABLEUONMEL3992-48-11 20:32:00 Test Item Value Reference Range Interpretation Comments Monocytes # (test code 0.6 See_Comment N [Aut omated message] The = Monocytes #) system which generated this result tra nsmitted reference range : <=0.8. The reference r megan was not used to int erpret this result as normal/abnormal . [facility]RlacnggJZDCJZBGCP9565-07-94 20:32:00 Test Item Value Reference Range Interpretation Comments PTT (test code = PTT) 28.5 s 22.9-35.8 N [facility] CenterJxlcvwrHSANUPTEND7199-09-58 20:32:00 Test Item Value Reference Range Interpretation Comments PT (test code = PT) 12.9 s 12.0-14.7 N [facility] CenterHceonbbIEQJHCLQLZ5844-99-40 20:32:00 Test Item Value Reference Range Interpretation Comments INR (test code = INR) 0.95 0.85-1.17 N [facility]GwpynxkTBJJZIQXQG2394-54-84 20:32:00 Test Item Value Reference Range Interpretation Comments UA Urobilinogen (test code *NA*(11/26/2012 0.1-1.0 = UA Urobilinogen) 14:32:00) [facility] HospitalJljjhcfWAPFKVNYJQ7415-14-07 20:32:00 Test Item Value Reference Range Interpretation Comments UA Bacteria (test code Occasional /HPF = UA Bacteria) *NA*(11/26/2012 14:32:00) [facility] HospitalDpbarahTFZODFSDAN7970-11-74 20:32:00 Test Item Value Reference Range Interpretation Comments UA RBC (test code = 1 See_Comment N [Automa ashanti message] The UA RBC) system which ge nerated this result transmit ashanti reference range : <=2. The reference range was not used to interpr et this result as carmen l/abnormal. [facility] HospitalGlieobhLVHUJHVRVS9271-00-40 20:32:00 Test Item Value Reference Range Interpretation Comments UA WBC (test code = 3 See_Comment N [Automa ashanti message] The UA WBC) system which ge nerated this result transmit ashanti reference range : <=5. The reference range was not used to interpr et this result as carmen l/abnormal. [facility] HospitalKadjuquKIQLAMLSLP2490-59-23 20:32:00 Test Item Value Reference Range Interpretation Comments UA Sq Epi (test code = Many /LPF A UA Sq Epi) *ABN*(11/26/2012 14:32:00) [facility] HospitalTbgpuzsUSYAXHSPUR8782-02-63 20:32:00 Test Item Value Reference Range Interpretation Comments Micro? (test code = Performed *NA*(11/26/2012 Micro?) 14:32:00) [facility] HospitalDwwhpokCHLIOFHFDO8498-83-61 20:32:00 Test Item Value Reference Range Interpretation Comments UA Mucus (test code = Few /LPF UA Mucus) *NA*(11/26/2012 14:32:00) [facility] HospitalGnxgbagEKHPHTCDLH8920-27-68 20:32:00 Test Item Value Reference Range Interpretation Comments UA Bili (test code = Negative *NA*(11/26/2012 UA Bili) 14:32:00) [facility] HospitalOknzfayTFCEDACSGK2107-64-27 20:32:00 Test Item Value Reference Range Interpretation Comments UA Ketones (test code Negative mg/dL = UA Ketones) *NA*(11/26/2012 14:32:00) [facility] HospitalIxdctgmDAIARYTERQ8202-92-79 20:32:00 Test Item Value Reference Range Interpretation Comments UA Protein (test code Negative mg/dL N = UA Protein) (11/26/2012 14:32:00) [facility] HospitalOegfxmvPYSTFLLHMH6259-97-11 20:32:00 Test Item Value Reference Range Interpretation Comments UA Leuk Est (test code Trace *ABN*(11/26/2012 A = UA Leuk Est) 14:32:00) [facility] HospitalYvexmkkWRDFCVNNTG9972-58-17 20:32:00 Test Item Value Reference Range Interpretation Comments UA Nitrite (test code Negative (11/26/2012 N = UA Nitrite) 14:32:00) [facility] HospitalPchvoadQWHJSOJNWV3346-46-30 20:32:00 Test Item Value Reference Range Interpretation Comments UA Blood (test code = Negative (11/26/2012 N UA Blood) 14:32:00) [facility] HospitalUcqpcimGJQAGGDOKN0835-59-77 20:32:00 Test Item Value Reference Range Interpretation Comments UA Color (test code = Yellow *NA*(11/26/2012 UA Color) 14:32:00) [facility] HospitalNgseizoPHOYTIGPSZ1256-84-42 20:32:00 Test Item Value Reference Range Interpretation Comments UA pH (test code = UA pH) 6.0 5.0-8.0 N [facility] HospitalAuyqfxlYRYTQTOHPI3297-54-13 20:32:00 Test Item Value Reference Range Interpretation Comments UA Spec Grav (test code = UA Spec Grav) 1.016 N [facility] HospitalSehliqcCJAHXMPVXT3826-82-20 20:32:00 Test Item Value Reference Range Interpretation Comments UA Turbidity (test code Slight A = UA Turbidity) *ABN*(11/26/2012 14:32:00) [facility] HospitalZgebkeuAYJBWIVOTI8776-95-55 20:32:00 Test Item Value Reference Range Interpretation Comments UA Glucose (test code Negative mg/dL = UA Glucose) *NA*(11/26/2012 14:32:00) [facility] CenterGqjudegCFBLOLMIR5850-14-56 20:32:00 Test Item Value Reference Range Interpretation Comments A/G Ratio (test code = A/G Ratio) 0.9 0.7-1.6 N [facility] CenterFkiwygxVIHQMZNGG8680-14-43 20:32:00 Test Item Value Reference Range Interpretation Comments Globulin (test code = Globulin) 4.4 2.0-4.0 H [facility] CenterLowiptjMSZSEDNVR0518-73-45 20:32:00 Test Item Value Reference Range Interpretation Comments AGAP (test code = AGAP) 13.0 10.0-20.0 N [facility] CenterDcfnkfrFNHUABESB5585-96-71 20:32:00 Test Item Value Reference Range Interpretation Comments B/C Ratio (test code = B/C Ratio) 18 6-25 N [facility] CenterTrejwyhIVVVWECAU1107-17-15 20:32:00 Test Item Value Reference Range Interpretation Comments AST (test code = AST) 24 See_Comment N [Auto mated message] The system which ge nerated this result transmit ashanti reference range : <=37. The reference range was not used to interpr et this result as carmen l/abnormal. [facility] CenterHyuwmjvQRMFJZSRO0744-57-30 20:32:00 Test Item Value Reference Range Interpretation Comments Bili Total (test code = Bili Total) 0.5 0.2-1.3 N [facility] CenterHshwpxrQDSASJIUN5937-25-91 20:32:00 Test Item Value Reference Range Interpretation Comments Alk Phos (test code = Alk Phos) 98 39-136 N [facility] CenterVoadpjmEXWUZQCQV3941-73-78 20:32:00 Test Item Value Reference Range Interpretation Comments ALT (test code = ALT) 37 See_Comment N [Auto mated message] The system which ge nerated this result transmit ashanti reference range : <=65. The reference range was not used to interpr et this result as carmen l/abnormal. [facility] CenterNqqxtfxGZCFJTLVS2375-93-68 20:32:00 Test Item Value Reference Range Interpretation Comments Total Protein (test code = Total 8.5 6.4-8.4 H Protein) [facility] CenterVurmnfdOBBHBUJYH6250-37-70 20:32:00 Test Item Value Reference Range Interpretation Comments eGFR (test code = eGFR) 128 [facility] CenterTnneqzrXKQVDBYNF5559-51-87 20:32:00 Test Item Value Reference Range Interpretation Comments Albumin Lvl (test code = Albumin Lvl) 4.1 3.5-5.0 N [facility] CenterPgajlubQPXEPDHDP8528-13-30 20:32:00 Test Item Value Reference Range Interpretation Comments Chloride Lvl (test code = Chloride Lvl) 100 95-109 N [facility] CenterYdwjxvwMXWQYEIYH6793-13-40 20:32:00 Test Item Value Reference Range Interpretation Comments Potassium Lvl (test code = Potassium 4.0 3.5-5.1 N Lvl) [facility] CenterXcyglsuNVYTCCURJ0478-77-79 20:32:00 Test Item Value Reference Range Interpretation Comments CO2 (test code = CO2) 28 24-32 N [facility] CenterSkkbdeqEPIAWXMAK9036-37-39 20:32:00 Test Item Value Reference Range Interpretation Comments Sodium Lvl (test code = Sodium Lvl) 137 135-145 N [facility] CenterFvxlapfMDIUQXYVK9740-41-46 20:32:00 Test Item Value Reference Range Interpretation Comments Calcium Lvl (test code = Calcium Lvl) 9.1 8.5-10.5 N [facility] CenterVilqyawSFEQLQKBC7932-91-92 20:32:00 Test Item Value Reference Range Interpretation Comments Creatinine Lvl (test code = Creatinine 0.5 0.5-1.4 N Lvl) [facility] CenterZnpsxapBQTVYBEAV9501-90-16 20:32:00 Test Item Value Reference Range Interpretation Comments Glucose Lvl (test code = Glucose Lvl) 81 70-99 N [facility] CenterLtjpydaNJBWMNNYZ2149-12-10 20:32:00 Test Item Value Reference Range Interpretation Comments BUN (test code = BUN) 9 7-22 N [facility] CenterBkbbpzdNBLCHSDHF9763-55-53 20:32:00 Test Item Value Reference Range Interpretation Comments Vitamin D 1,25 (OH)2 Total (test code = 52 18-72 Vitamin D 1,25 (OH)2 Total) [facility] CenterIoleaehMCMXSUJVV2015-02-18 20:32:00 Test Item Value Reference Range Interpretation Comments Vitamin D2 1,25 (OH)2 (test code = no gt Vitamin D2 1,25 (OH)2) [facility] CenterPlrzyyaMQJJGWLPW0646-83-45 20:32:00 Test Item Value Reference Range Interpretation Comments Vitamin D3 1,25 (OH)2 (test code = 52 Vitamin D3 1,25 (OH)2) [facility] CenterLfpyyciTQOENDOJMN1823-06-65 20:32:00 Test Item Value Reference Range Interpretation Comments MPV (test code = MPV) 8.7 7.4-10.4 N [facility] CenterWluuhcfWBFPNXOBCE1365-57-53 20:32:00 Test Item Value Reference Range Interpretation Comments Hgb (test code = Hgb) 12.0 12.0-16.0 N [facility] CenterMgfphhmXWWRJIMGBT9738-09-48 20:32:00 Test Item Value Reference Range Interpretation Comments RBC (test code = RBC) 4.51 4.20-5.40 N [facility] CenterHypysooAGFRUPWINL4529-82-30 20:32:00 Test Item Value Reference Range Interpretation Comments WBC (test code = WBC) 15.6 3.7-10.4 H [facility] CenterSjknkksWCOUFWMAOE2281-84-00 20:32:00 Test Item Value Reference Range Interpretation Comments Hct (test code = Hct) 37.0 36.0-48.0 N [facility] CenterEjumvxnGHZYXHMIEO5675-67-39 20:32:00 Test Item Value Reference Range Interpretation Comments MCV (test code = MCV) 82.0 81.0-99.0 N [facility] CenterUdqjdfkSZHCAZNAI3822-96-28 20:32:00 Test Item Value Reference Range Interpretation Comments A/G Ratio (test code = A/G Ratio) 0.9 0.7-1.6 N [facility] CenterCeesmtpJOGDLYCUQY7384-99-16 20:32:00 Test Item Value Reference Range Interpretation Comments RDW (test code = RDW) 15.9 11.5-14.5 H [facility] CenterIzcksmnOEDMSCFAKS1143-27-37 20:32:00 Test Item Value Reference Range Interpretation Comments MCHC (test code = MCHC) 32.3 32.0-36.0 N [facility] CenterNwpqsasROPXKFDSQX8286-87-20 20:32:00 Test Item Value Reference Range Interpretation Comments MCH (test code = MCH) 26.5 pg 27.0-31.0 L [facility] CenterTchpuzuMEAHXOZWLJ2357-85-27 20:32:00 Test Item Value Reference Range Interpretation Comments Platelet (test code = Platelet) 371 133-450 N [facility] CenterLjauxwaNLOCOBIFBU0256-97-46 20:32:00 Test Item Value Reference Range Interpretation Comments Polychrom (test code = Slight (11/26/2012 N Polychrom) 14:32:00) [facility] CenterQeodkejWUYNLQSBCE1048-61-41 20:32:00 Test Item Value Reference Range Interpretation Comments Large Plt (test code = Slight *ABN*(11/26/2012 A Large Plt) 14:32:00) [facility] CenterAqaxutiGVXQPSWFBI1500-15-18 20:32:00 Test Item Value Reference Range Interpretation Comments Segs (test code = Segs) 73.0 45.0-75.0 N [facility] CenterTtrjtyuZVJDDHWDLB6308-88-00 20:32:00 Test Item Value Reference Range Interpretation Comments Eosinophils # (test code 0.2 See_Comment N [A utomated message] The = Eosinophils #) system whic h generated this result tra nsmitted reference range : <=0.5. The reference r megan was not used to int erpret this result as normal/abnormal . [facility] CenterGimyrizYPDIIZRSXU3404-18-01 20:32:00 Test Item Value Reference Range Interpretation Comments Basophils # (test code 0.1 See_Comment N [Aut omated message] The = Basophils #) system which generated this result tra nsmitted reference range : <=0.2. The reference r megan was not used to int erpret this result as normal/abnormal . [facility] CenterFmjtijeVSZRSAMTLB5683-89-92 20:32:00 Test Item Value Reference Range Interpretation Comments Lymphocytes (test code = Lymphocytes) 21.3 20.0-40.0 N [facility]OstxisnQONOEWKLJ9883-07-11 20:32:00 Test Item Value Reference Range Interpretation Comments Globulin (test code = Globulin) 4.4 2.0-4.0 H [facility] CenterTmpfreiPRESFNZCKF9235-82-87 20:32:00 Test Item Value Reference Range Interpretation Comments Segs-Bands # (test code = Segs-Bands #) 11.4 1.5-8.1 H [facility] CenterJtcokyuUZDPGJDSSD3432-53-69 20:32:00 Test Item Value Reference Range Interpretation Comments Eosinophils (test code = 1.1 See_Comment N [A utomated message] The Eosinophils) system which ge nerated this result tra nsmitted reference range : <=4.0. The reference r megan was not used to int erpret this result as normal/abnormal . [facility] CenterOcarobiDWKBPDXWDO0722-61-71 20:32:00 Test Item Value Reference Range Interpretation Comments Basophils (test code = 0.5 See_Comment N [Aut omated message] The Basophils) system which ge nerated this result tra nsmitted reference range : <=1.0. The reference r megan was not used to int erpret this result as normal/abnormal . [facility] CenterGjstxqsRCSWVFMUKN1331-23-73 20:32:00 Test Item Value Reference Range Interpretation Comments Monocytes (test code = Monocytes) 4.1 2.0-12.0 N [facility] CenterFadldrhBKAAZVFCQL5029-02-14 20:32:00 Test Item Value Reference Range Interpretation Comments Lymphocytes # (test code = Lymphocytes 3.3 1.0-5.5 N #) [facility] CenterCxadjwxRWGUKFNMCY4422-30-62 20:32:00 Test Item Value Reference Range Interpretation Comments Monocytes # (test code 0.6 See_Comment N [Aut omated message] The = Monocytes #) system which generated this result tra nsmitted reference range : <=0.8. The reference r megan was not used to int erpret this result as normal/abnormal . [facility] CenterLekrmtoRBGRMDIXFT9841-91-82 20:32:00 Test Item Value Reference Range Interpretation Comments PTT (test code = PTT) 28.5 s 22.9-35.8 N [facility]WelohmtNIGQLZMBGE5700-31-43 20:32:00 Test Item Value Reference Range Interpretation Comments PT (test code = PT) 12.9 s 12.0-14.7 N [facility]JtsdztrXACHEIQPSV6287-69-88 20:32:00 Test Item Value Reference Range Interpretation Comments INR (test code = INR) 0.95 0.85-1.17 N [facility] HospitalDvjxgcyYDSOYEDINL6848-64-03 20:32:00 Test Item Value Reference Range Interpretation Comments UA Urobilinogen (test code *NA*(11/26/2012 0.1-1.0 = UA Urobilinogen) 14:32:00) [facility] HospitalQkyhlpfJBCZFMBFD3507-04-14 20:32:00 Test Item Value Reference Range Interpretation Comments AGAP (test code = AGAP) 13.0 10.0-20.0 N [facility] HospitalYxxxjttXVDYIYECRK8266-27-44 20:32:00 Test Item Value Reference Range Interpretation Comments UA Bacteria (test code Occasional /HPF = UA Bacteria) *NA*(11/26/2012 14:32:00) [facility]SqgdcilYARPOAJIYT2852-68-47 20:32:00 Test Item Value Reference Range Interpretation Comments UA RBC (test code = 1 See_Comment N [Automa ashanti message] The UA RBC) system which ge nerated this result transmit ashanti reference range : <=2. The reference range was not used to interpr et this result as carmen l/abnormal. [facility]anoJhqfqmjIXNFAMUSPS5935-41-01 20:32:00 Test Item Value Reference Range Interpretation Comments UA WBC (test code = 3 See_Comment N [Automa ashanti message] The UA WBC) system which ge nerated this result transmit ashanti reference range : <=5. The reference range was not used to interpr et this result as carmen l/abnormal. [facility]anoRwmcirvJLIECWGJNL9528-14-62 20:32:00 Test Item Value Reference Range Interpretation Comments UA Sq Epi (test code = Many /LPF A UA Sq Epi) *ABN*(11/26/2012 14:32:00) [facility]TdzcnppNMNJCEFCWB1155-33-48 20:32:00 Test Item Value Reference Range Interpretation Comments Micro? (test code = Performed *NA*(11/26/2012 Micro?) 14:32:00) [facility]anoOistfzlHJREIBGBKW8336-19-97 20:32:00 Test Item Value Reference Range Interpretation Comments UA Mucus (test code = Few /LPF UA Mucus) *NA*(11/26/2012 14:32:00) [facility]GimjfuoZKAPBLJFXC1029-57-88 20:32:00 Test Item Value Reference Range Interpretation Comments UA Bili (test code = Negative *NA*(11/26/2012 UA Bili) 14:32:00) [facility]anoDylomeqCGBVXHPQXH1761-71-43 20:32:00 Test Item Value Reference Range Interpretation Comments UA Ketones (test code Negative mg/dL = UA Ketones) *NA*(11/26/2012 14:32:00) [facility]anoIuclllbPJRHQOLFPH9504-74-81 20:32:00 Test Item Value Reference Range Interpretation Comments UA Protein (test code Negative mg/dL N = UA Protein) (11/26/2012 14:32:00) [facility]anoUgbbssnUCSIQBVVHT1421-43-40 20:32:00 Test Item Value Reference Range Interpretation Comments UA Leuk Est (test code Trace *ABN*(11/26/2012 A = UA Leuk Est) 14:32:00) [facility] CenterTsdgqrqQMKKIHEGW2889-64-64 20:32:00 Test Item Value Reference Range Interpretation Comments B/C Ratio (test code = B/C Ratio) 18 6-25 N [facility]XdhfuxsOSLHVBBSTB4799-09-05 20:32:00 Test Item Value Reference Range Interpretation Comments UA Nitrite (test code Negative (11/26/2012 N = UA Nitrite) 14:32:00) [facility] HospitalKtkrkfoFZERIPYCJM4304-59-21 20:32:00 Test Item Value Reference Range Interpretation Comments UA Blood (test code = Negative (11/26/2012 N UA Blood) 14:32:00) [facility] HospitalQgtwaikZAJNCAGCVM4464-64-58 20:32:00 Test Item Value Reference Range Interpretation Comments UA Color (test code = Yellow *NA*(11/26/2012 UA Color) 14:32:00) [facility] HospitalXjigzvyCZHZEHDRXN1945-10-76 20:32:00 Test Item Value Reference Range Interpretation Comments UA pH (test code = UA pH) 6.0 5.0-8.0 N [facility] HospitalVdbqhmoTBTSKSBBCU7465-13-78 20:32:00 Test Item Value Reference Range Interpretation Comments UA Spec Grav (test code = UA Spec Grav) 1.016 N [facility] HospitalMrdyjluUNXKLCVMTA8581-34-02 20:32:00 Test Item Value Reference Range Interpretation Comments UA Turbidity (test code Slight A = UA Turbidity) *ABN*(11/26/2012 14:32:00) [facility] HospitalAmqmuveZMWTHNQPSY5176-21-10 20:32:00 Test Item Value Reference Range Interpretation Comments UA Glucose (test code Negative mg/dL = UA Glucose) *NA*(11/26/2012 14:32:00) [facility] CenterPyebbqpJWAVPPPVT4702-17-30 20:32:00 Test Item Value Reference Range Interpretation Comments AST (test code = AST) 24 See_Comment N [Auto mated message] The system which ge nerated this result transmit ashanti reference range : <=37. The reference range was not used to interpr et this result as carmen l/abnormal. [facility] CenterGwecvkuXPQKQJPUS9343-62-10 20:32:00 Test Item Value Reference Range Interpretation Comments Bili Total (test code = Bili Total) 0.5 0.2-1.3 N [facility] CenterEvkkhucAGGGFRBVT3488-59-64 20:32:00 Test Item Value Reference Range Interpretation Comments Alk Phos (test code = Alk Phos) 98 39-136 N [facility] CenterJemdqivGKNSYFZEF7626-21-43 20:32:00 Test Item Value Reference Range Interpretation Comments ALT (test code = ALT) 37 See_Comment N [Auto mated message] The system which ge nerated this result transmit ashanti reference range : <=65. The reference range was not used to interpr et this result as carmen l/abnormal. [facility] CenterNsaobxjFLYRRHXSQ0417-58-54 20:32:00 Test Item Value Reference Range Interpretation Comments Total Protein (test code = Total 8.5 6.4-8.4 H Protein) [facility] CenterXmtduwpVDATHSWNB3522-67-31 20:32:00 Test Item Value Reference Range Interpretation Comments eGFR (test code = eGFR) 128 [facility] CenterGuzwnhsIACZJMCWW9369-43-79 20:32:00 Test Item Value Reference Range Interpretation Comments Albumin Lvl (test code = Albumin Lvl) 4.1 3.5-5.0 N [facility] CenterYcqwjegEUICUINDA8483-42-23 20:32:00 Test Item Value Reference Range Interpretation Comments Chloride Lvl (test code = Chloride Lvl) 100 95-109 N [facility] CenterVbiwgwzVOUZMRAFZ9711-98-78 20:32:00 Test Item Value Reference Range Interpretation Comments Potassium Lvl (test code = Potassium 4.0 3.5-5.1 N Lvl) [facility] CenterBlwyfkdNANIDMQUH9841-14-96 20:32:00 Test Item Value Reference Range Interpretation Comments CO2 (test code = CO2) 28 24-32 N [facility] CenterRdhisypHQPXZCEMT7424-87-46 20:32:00 Test Item Value Reference Range Interpretation Comments Sodium Lvl (test code = Sodium Lvl) 137 135-145 N [facility] CenterKvogapfULEVZJNHK9357-84-99 20:32:00 Test Item Value Reference Range Interpretation Comments A/G Ratio (test code = A/G Ratio) 0.9 0.7-1.6 N [facility] CenterGlkgnosPHBBMMWLP3684-63-53 20:32:00 Test Item Value Reference Range Interpretation Comments Globulin (test code = Globulin) 4.4 2.0-4.0 H [facility] CenterZkaxnvsLAUSPIUUC5863-26-61 20:32:00 Test Item Value Reference Range Interpretation Comments AGAP (test code = AGAP) 13.0 10.0-20.0 N [facility] CenterRqyilcbZLFMMZGLL8384-44-09 20:32:00 Test Item Value Reference Range Interpretation Comments B/C Ratio (test code = B/C Ratio) 18 6-25 N [facility] CenterAppxcgqULTYMWZMN2053-93-99 20:32:00 Test Item Value Reference Range Interpretation Comments AST (test code = AST) 24 See_Comment N [Auto mated message] The system which ge nerated this result transmit ashanti reference range : <=37. The reference range was not used to interpr et this result as carmen l/abnormal. [facility] CenterNbtijedHIBKZAOWI1525-37-83 20:32:00 Test Item Value Reference Range Interpretation Comments Bili Total (test code = Bili Total) 0.5 0.2-1.3 N [facility] CenterVykonujQQNAEXAHU8590-92-79 20:32:00 Test Item Value Reference Range Interpretation Comments Calcium Lvl (test code = Calcium Lvl) 9.1 8.5-10.5 N [facility] CenterOcnzstxMMLFMIYYG2226-01-91 20:32:00 Test Item Value Reference Range Interpretation Comments Alk Phos (test code = Alk Phos) 98 39-136 N [facility] CenterAmyaiuqRKVZYZMRW1691-82-84 20:32:00 Test Item Value Reference Range Interpretation Comments ALT (test code = ALT) 37 See_Comment N [Auto mated message] The system which ge nerated this result transmit ashanti reference range : <=65. The reference range was not used to interpr et this result as carmen l/abnormal. [facility] CenterDafblcvBOTIELEPC7127-48-27 20:32:00 Test Item Value Reference Range Interpretation Comments Total Protein (test code = Total 8.5 6.4-8.4 H Protein) [facility] CenterQqdtoezBWSENCJFL9795-77-68 20:32:00 Test Item Value Reference Range Interpretation Comments eGFR (test code = eGFR) 128 [facility] CenterVubvydyEQVUMLJHA7631-59-79 20:32:00 Test Item Value Reference Range Interpretation Comments Albumin Lvl (test code = Albumin Lvl) 4.1 3.5-5.0 N [facility] CenterPnhoxkqUYISOXQYO9015-58-39 20:32:00 Test Item Value Reference Range Interpretation Comments Chloride Lvl (test code = Chloride Lvl) 100 95-109 N [facility] CenterCzzlojwJNENXRHMH9013-52-43 20:32:00 Test Item Value Reference Range Interpretation Comments Potassium Lvl (test code = Potassium 4.0 3.5-5.1 N Lvl) [facility] CenterOpmulmcYTXMQHUKE6075-40-27 20:32:00 Test Item Value Reference Range Interpretation Comments CO2 (test code = CO2) 28 24-32 N [facility] CenterEdzbcrcQNFNNKLWY2855-71-75 20:32:00 Test Item Value Reference Range Interpretation Comments Sodium Lvl (test code = Sodium Lvl) 137 135-145 N [facility] CenterXudysmqHQSECKZRG5333-91-17 20:32:00 Test Item Value Reference Range Interpretation Comments Calcium Lvl (test code = Calcium Lvl) 9.1 8.5-10.5 N [facility] CenterRspmdyeBLJCPSVDD8247-52-09 20:32:00 Test Item Value Reference Range Interpretation Comments Creatinine Lvl (test code = Creatinine 0.5 0.5-1.4 N Lvl) [facility] CenterWnjotuhOEVUCRLPB9780-46-24 20:32:00 Test Item Value Reference Range Interpretation Comments Creatinine Lvl (test code = Creatinine 0.5 0.5-1.4 N Lvl) [facility] CenterOzfltusJNGUXDRVT3796-40-74 20:32:00 Test Item Value Reference Range Interpretation Comments Glucose Lvl (test code = Glucose Lvl) 81 70-99 N [facility] CenterCsiimdhCQJJOWTNC9985-66-01 20:32:00 Test Item Value Reference Range Interpretation Comments BUN (test code = BUN) 9 7-22 N [facility]VkvplqmAEJJRXKZE9477-08-99 20:32:00 Test Item Value Reference Range Interpretation Comments Vitamin D 1,25 (OH)2 Total (test code = 52 18-72 Vitamin D 1,25 (OH)2 Total) [facility] CenterFvcaokwRCPCATMOR8504-81-61 20:32:00 Test Item Value Reference Range Interpretation Comments Vitamin D2 1,25 (OH)2 (test code = no gt Vitamin D2 1,25 (OH)2) [facility] CenterFqvptvdFMMZFCDIZ4100-56-03 20:32:00 Test Item Value Reference Range Interpretation Comments Vitamin D3 1,25 (OH)2 (test code = 52 Vitamin D3 1,25 (OH)2) [facility]VekeeosAECBTHLJDU2069-82-95 20:32:00 Test Item Value Reference Range Interpretation Comments MPV (test code = MPV) 8.7 7.4-10.4 N [facility] CenterQjyqpsvFISVPSLEOZ6353-91-98 20:32:00 Test Item Value Reference Range Interpretation Comments Hgb (test code = Hgb) 12.0 12.0-16.0 N [facility] CenterUjchijiQGNSRIRIPP0025-16-79 20:32:00 Test Item Value Reference Range Interpretation Comments RBC (test code = RBC) 4.51 4.20-5.40 N [facility] CenterMceudheHZPKBLNGGE6035-55-18 20:32:00 Test Item Value Reference Range Interpretation Comments WBC (test code = WBC) 15.6 3.7-10.4 H [facility] CenterQxiolyePIDQHNLBF4233-27-32 20:32:00 Test Item Value Reference Range Interpretation Comments Glucose Lvl (test code = Glucose Lvl) 81 70-99 N [facility] CenterJlvqxbeFQHUXOCNPZ9356-80-79 20:32:00 Test Item Value Reference Range Interpretation Comments Hct (test code = Hct) 37.0 36.0-48.0 N [facility] CenterOpxofhsIGQSAFYAAU9131-22-08 20:32:00 Test Item Value Reference Range Interpretation Comments MCV (test code = MCV) 82.0 81.0-99.0 N [facility] CenterFwkblovIUWBDDVGIY5871-85-17 20:32:00 Test Item Value Reference Range Interpretation Comments RDW (test code = RDW) 15.9 11.5-14.5 H [facility] CenterWsccygqURQLZPZCEU9421-52-01 20:32:00 Test Item Value Reference Range Interpretation Comments MCHC (test code = MCHC) 32.3 32.0-36.0 N [facility] CenterUxdvixqUJOLXBBGPJ6808-33-28 20:32:00 Test Item Value Reference Range Interpretation Comments MCH (test code = MCH) 26.5 pg 27.0-31.0 L [facility] CenterCnlnytwDVFZVILTBA1586-81-87 20:32:00 Test Item Value Reference Range Interpretation Comments Platelet (test code = Platelet) 371 133-450 N [facility] CenterOahgkvjBTNLKJLGEQ4618-41-64 20:32:00 Test Item Value Reference Range Interpretation Comments Polychrom (test code = Slight (11/26/2012 N Polychrom) 14:32:00) [facility] CenterPnsqmafPNXGQTNJMJ2284-64-88 20:32:00 Test Item Value Reference Range Interpretation Comments Large Plt (test code = Slight *ABN*(11/26/2012 A Large Plt) 14:32:00) [facility] CenterXaluznwXLEDBBPKEY3027-73-54 20:32:00 Test Item Value Reference Range Interpretation Comments Segs (test code = Segs) 73.0 45.0-75.0 N [facility] CenterVerduodYPCNSYYTJE0524-21-78 20:32:00 Test Item Value Reference Range Interpretation Comments Eosinophils # (test code 0.2 See_Comment N [A utomated message] The = Eosinophils #) system whic h generated this result tra nsmitted reference range : <=0.5. The reference r megan was not used to int erpret this result as normal/abnormal . [facility] CenterDlhyfzaTNCNAGUSW3662-30-19 20:32:00 Test Item Value Reference Range Interpretation Comments BUN (test code = BUN) 9 7-22 N [facility] CenterVdxydhwLCEJQXTYEK9237-74-12 20:32:00 Test Item Value Reference Range Interpretation Comments Basophils # (test code 0.1 See_Comment N [Aut omated message] The = Basophils #) system which generated this result tra nsmitted reference range : <=0.2. The reference r megan was not used to int erpret this result as normal/abnormal . [facility] CenterLmnegtyBDAVDWTTME4387-80-20 20:32:00 Test Item Value Reference Range Interpretation Comments Lymphocytes (test code = Lymphocytes) 21.3 20.0-40.0 N [facility] CenterUceitffLWWLUJVABL9248-65-58 20:32:00 Test Item Value Reference Range Interpretation Comments Segs-Bands # (test code = Segs-Bands #) 11.4 1.5-8.1 H [facility] CenterBeahyqeAGXAOTHVVR6403-48-01 20:32:00 Test Item Value Reference Range Interpretation Comments Eosinophils (test code = 1.1 See_Comment N [A utomated message] The Eosinophils) system which ge nerated this result tra nsmitted reference range : <=4.0. The reference r megan was not used to int erpret this result as normal/abnormal . [facility] CenterDcppwvhUHMIFOOIXW1170-66-07 20:32:00 Test Item Value Reference Range Interpretation Comments Basophils (test code = 0.5 See_Comment N [Aut omated message] The Basophils) system which ge nerated this result tra nsmitted reference range : <=1.0. The reference r megan was not used to int erpret this result as normal/abnormal . [facility] CenterMhdbdmxSKWGJCLQEC4198-13-58 20:32:00 Test Item Value Reference Range Interpretation Comments Monocytes (test code = Monocytes) 4.1 2.0-12.0 N [facility] CenterHecqyguAPODPROEJD1701-11-84 20:32:00 Test Item Value Reference Range Interpretation Comments Lymphocytes # (test code = Lymphocytes 3.3 1.0-5.5 N #) [facility] CenterDymnzmgGTPTGWPRMA7037-24-81 20:32:00 Test Item Value Reference Range Interpretation Comments Monocytes # (test code 0.6 See_Comment N [Aut omated message] The = Monocytes #) system which generated this result tra nsmitted reference range : <=0.8. The reference r megan was not used to int erpret this result as normal/abnormal . [facility] CenterUfxmrdmPWYJMGHQOK4467-70-49 20:32:00 Test Item Value Reference Range Interpretation Comments PTT (test code = PTT) 28.5 s 22.9-35.8 N [facility] CenterPvdjlisVTZYWIKLLJ5010-56-92 20:32:00 Test Item Value Reference Range Interpretation Comments PT (test code = PT) 12.9 s 12.0-14.7 N [facility] CenterDudexdmPQRVFZTXI2368-75-60 20:32:00 Test Item Value Reference Range Interpretation Comments Vitamin D 1,25 (OH)2 Total (test code = 52 18-72 Vitamin D 1,25 (OH)2 Total) [facility] CenterUcjfyomNLIZDIWSXZ3968-67-63 20:32:00 Test Item Value Reference Range Interpretation Comments INR (test code = INR) 0.95 0.85-1.17 N [facility]ArtjubtBPVBIGLGKR5574-31-22 20:32:00 Test Item Value Reference Range Interpretation Comments UA Urobilinogen (test code *NA*(11/26/2012 0.1-1.0 = UA Urobilinogen) 14:32:00) [facility] HospitalNlfpfucXTGIGIJKHO7707-51-93 20:32:00 Test Item Value Reference Range Interpretation Comments UA Bacteria (test code Occasional /HPF = UA Bacteria) *NA*(11/26/2012 14:32:00) [facility] HospitalYoiyljmTHZXFTIHKF3857-60-89 20:32:00 Test Item Value Reference Range Interpretation Comments UA RBC (test code = 1 See_Comment N [Automa ashanti message] The UA RBC) system which ge nerated this result transmit ashanti reference range : <=2. The reference range was not used to interpr et this result as carmen l/abnormal. [facility] HospitalQmfmdvaKCXZLGHIXQ4885-18-41 20:32:00 Test Item Value Reference Range Interpretation Comments UA WBC (test code = 3 See_Comment N [Automa ashanti message] The UA WBC) system which ge nerated this result transmit ashanti reference range : <=5. The reference range was not used to interpr et this result as carmen l/abnormal. [facility]RvibbhbIXHRASXVOW4313-98-13 20:32:00 Test Item Value Reference Range Interpretation Comments UA Sq Epi (test code = Many /LPF A UA Sq Epi) *ABN*(11/26/2012 14:32:00) [facility] HospitalUmcmmqiIWJIIRMDOE4257-40-32 20:32:00 Test Item Value Reference Range Interpretation Comments Micro? (test code = Performed *NA*(11/26/2012 Micro?) 14:32:00) [facility] HospitalHqckiubPCYCWXIGCC6781-95-24 20:32:00 Test Item Value Reference Range Interpretation Comments UA Mucus (test code = Few /LPF UA Mucus) *NA*(11/26/2012 14:32:00) [facility] HospitalBydjspfOXXWIASFTB8196-24-47 20:32:00 Test Item Value Reference Range Interpretation Comments UA Bili (test code = Negative *NA*(11/26/2012 UA Bili) 14:32:00) [facility] HospitalJrukwzfNMSIIHJTCG0237-77-84 20:32:00 Test Item Value Reference Range Interpretation Comments UA Ketones (test code Negative mg/dL = UA Ketones) *NA*(11/26/2012 14:32:00) [facility] HospitalKqqgdzoFRLBQPPEW9183-30-54 20:32:00 Test Item Value Reference Range Interpretation Comments Vitamin D2 1,25 (OH)2 (test code = no gt Vitamin D2 1,25 (OH)2) [facility]anoKyzjrdyHWTNRKHUNY7238-40-99 20:32:00 Test Item Value Reference Range Interpretation Comments UA Protein (test code Negative mg/dL N = UA Protein) (11/26/2012 14:32:00) [facility]anoEqrsiivIZREFKQMPZ9228-03-49 20:32:00 Test Item Value Reference Range Interpretation Comments UA Leuk Est (test code Trace *ABN*(11/26/2012 A = UA Leuk Est) 14:32:00) [facility]anoMbtxnokMHPHNAOMIZ6773-03-29 20:32:00 Test Item Value Reference Range Interpretation Comments UA Nitrite (test code Negative (11/26/2012 N = UA Nitrite) 14:32:00) [facility]OhdfugnXRQGKXCGHF8531-23-26 20:32:00 Test Item Value Reference Range Interpretation Comments UA Blood (test code = Negative (11/26/2012 N UA Blood) 14:32:00) [facility] HospitalSrdhxikRIWHPVAYVV7542-18-18 20:32:00 Test Item Value Reference Range Interpretation Comments UA Color (test code = Yellow *NA*(11/26/2012 UA Color) 14:32:00) [facility]anoEdkmqwpODEPGSCBMY0868-88-15 20:32:00 Test Item Value Reference Range Interpretation Comments UA pH (test code = UA pH) 6.0 5.0-8.0 N [facility]anoMoetdxuYKTHPVRKIQ6137-09-50 20:32:00 Test Item Value Reference Range Interpretation Comments UA Spec Grav (test code = UA Spec Grav) 1.016 N [facility]anoOnrybkqYUIYEQYKFG4539-16-60 20:32:00 Test Item Value Reference Range Interpretation Comments UA Turbidity (test code Slight A = UA Turbidity) *ABN*(11/26/2012 14:32:00) [facility]anoNctwpozIWXFBRUCSC4457-38-02 20:32:00 Test Item Value Reference Range Interpretation Comments UA Glucose (test code Negative mg/dL = UA Glucose) *NA*(11/26/2012 14:32:00) [facility] HospitalVrwdhpxEVEVNVLHG3485-56-81 20:32:00 Test Item Value Reference Range Interpretation Comments Vitamin D3 1,25 (OH)2 (test code = 52 Vitamin D3 1,25 (OH)2) [facility] HospitalCaswoqwAVQPWHPQFM0372-36-16 20:32:00 Test Item Value Reference Range Interpretation Comments MPV (test code = MPV) 8.7 7.4-10.4 N [facility] CenterOtpjqphJNADPELVAS7679-97-29 20:32:00 Test Item Value Reference Range Interpretation Comments Hgb (test code = Hgb) 12.0 12.0-16.0 N [facility] CenterQblapfaZZLLAVVDAB8897-82-26 20:32:00 Test Item Value Reference Range Interpretation Comments RBC (test code = RBC) 4.51 4.20-5.40 N [facility] CenterLryxcsmWLMAPMLYTK3994-18-32 20:32:00 Test Item Value Reference Range Interpretation Comments WBC (test code = WBC) 15.6 3.7-10.4 H [facility] CenterYyqzehbFIDXNBZYQU7775-34-72 20:32:00 Test Item Value Reference Range Interpretation Comments Hct (test code = Hct) 37.0 36.0-48.0 N [facility] CenterLexffvaKQGMDKAOKR8934-06-28 20:32:00 Test Item Value Reference Range Interpretation Comments MCV (test code = MCV) 82.0 81.0-99.0 N [facility] CenterPvmgeqgDHNIOHSUKV4588-45-63 20:32:00 Test Item Value Reference Range Interpretation Comments RDW (test code = RDW) 15.9 11.5-14.5 H [facility] CenterEfzzygjYPUHHZCVFA0462-27-08 20:32:00 Test Item Value Reference Range Interpretation Comments MCHC (test code = MCHC) 32.3 32.0-36.0 N [facility] CenterDquynspDEYLRFZNOV3916-45-10 20:32:00 Test Item Value Reference Range Interpretation Comments MCH (test code = MCH) 26.5 pg 27.0-31.0 L [facility] CenterGddrbxhFZJVZAETDE0003-82-67 20:32:00 Test Item Value Reference Range Interpretation Comments Platelet (test code = Platelet) 371 133-450 N [facility] CenterZvagieaMDOHOFTSK7423-88-57 20:32:00 Test Item Value Reference Range Interpretation Comments A/G Ratio (test code = A/G Ratio) 0.9 0.7-1.6 N [facility] CenterInrjrnkENDDTNSQW3800-38-16 20:32:00 Test Item Value Reference Range Interpretation Comments Globulin (test code = Globulin) 4.4 2.0-4.0 H [facility] CenterPjkpjeqWAXMWACSZ1832-36-03 20:32:00 Test Item Value Reference Range Interpretation Comments AGAP (test code = AGAP) 13.0 10.0-20.0 N [facility] CenterJfxvijdNKJVLQHKU2015-31-08 20:32:00 Test Item Value Reference Range Interpretation Comments B/C Ratio (test code = B/C Ratio) 18 6-25 N [facility] CenterSjilincQUFXTLQDBO9719-21-60 20:32:00 Test Item Value Reference Range Interpretation Comments Polychrom (test code = Slight (11/26/2012 N Polychrom) 14:32:00) [facility] CenterPqcnghpKOPHWOOBN5680-16-03 20:32:00 Test Item Value Reference Range Interpretation Comments AST (test code = AST) 24 See_Comment N [Auto mated message] The system which ge nerated this result transmit ashanti reference range : <=37. The reference range was not used to interpr et this result as carmen l/abnormal. [facility] CenterAzzbppmVYLXHYFFV4273-93-13 20:32:00 Test Item Value Reference Range Interpretation Comments Bili Total (test code = Bili Total) 0.5 0.2-1.3 N [facility] CenterJgltwrnXDNQXWSEY7622-28-01 20:32:00 Test Item Value Reference Range Interpretation Comments Alk Phos (test code = Alk Phos) 98 39-136 N [facility] CenterNwiiqrfVJMGEYOUT8155-28-09 20:32:00 Test Item Value Reference Range Interpretation Comments ALT (test code = ALT) 37 See_Comment N [Auto mated message] The system which ge nerated this result transmit ashanti reference range : <=65. The reference range was not used to interpr et this result as carmen l/abnormal. [facility] CenterKqpxbmnNRCOLVRPA1593-05-35 20:32:00 Test Item Value Reference Range Interpretation Comments Total Protein (test code = Total 8.5 6.4-8.4 H Protein) [facility] CenterWfynrrhQQFPYVWZZ0566-22-32 20:32:00 Test Item Value Reference Range Interpretation Comments eGFR (test code = eGFR) 128 [facility] CenterMgvazwyVNBEHYMKD8722-38-50 20:32:00 Test Item Value Reference Range Interpretation Comments Albumin Lvl (test code = Albumin Lvl) 4.1 3.5-5.0 N [facility] CenterYfdflgyAUVWZYOLT3002-24-25 20:32:00 Test Item Value Reference Range Interpretation Comments Chloride Lvl (test code = Chloride Lvl) 100 95-109 N [facility] CenterAtlipsaHCLMTKLWL1986-95-07 20:32:00 Test Item Value Reference Range Interpretation Comments Potassium Lvl (test code = Potassium 4.0 3.5-5.1 N Lvl) [facility] CenterDjnchezMHILLUEKQ7729-49-43 20:32:00 Test Item Value Reference Range Interpretation Comments CO2 (test code = CO2) 28 24-32 N [facility] CenterTpkplazZFUNCZFHJW7334-30-65 20:32:00 Test Item Value Reference Range Interpretation Comments Large Plt (test code = Slight *ABN*(11/26/2012 A Large Plt) 14:32:00) [facility] CenterPtgdnorGHSLLRZRW4376-99-77 20:32:00 Test Item Value Reference Range Interpretation Comments Sodium Lvl (test code = Sodium Lvl) 137 135-145 N [facility] CenterCqgxtrtAJFVLVSPE1809-42-46 20:32:00 Test Item Value Reference Range Interpretation Comments Calcium Lvl (test code = Calcium Lvl) 9.1 8.5-10.5 N [facility] CenterTxzhjijWEVHVYLMU8847-41-53 20:32:00 Test Item Value Reference Range Interpretation Comments Creatinine Lvl (test code = Creatinine 0.5 0.5-1.4 N Lvl) [facility] CenterEilobzzOZMGVNQJZ0385-47-31 20:32:00 Test Item Value Reference Range Interpretation Comments Glucose Lvl (test code = Glucose Lvl) 81 70-99 N [facility] CenterVuedlbvGRVIDRJIP1236-28-62 20:32:00 Test Item Value Reference Range Interpretation Comments BUN (test code = BUN) 9 7-22 N [facility] CenterOhuznypUEUIFOEWV3090-76-53 20:32:00 Test Item Value Reference Range Interpretation Comments Vitamin D 1,25 (OH)2 Total (test code = 52 18-72 Vitamin D 1,25 (OH)2 Total) [facility] CenterVgguuqsYYZCJZDBR9047-49-40 20:32:00 Test Item Value Reference Range Interpretation Comments Vitamin D2 1,25 (OH)2 (test code = no gt Vitamin D2 1,25 (OH)2) [facility] CenterAmzggapFMVHJMIES8848-41-53 20:32:00 Test Item Value Reference Range Interpretation Comments Vitamin D3 1,25 (OH)2 (test code = 52 Vitamin D3 1,25 (OH)2) [facility] CenterFazpxjeRPILCSAANA2332-45-25 20:32:00 Test Item Value Reference Range Interpretation Comments MPV (test code = MPV) 8.7 7.4-10.4 N [facility] CenterKthshnjHAVFUGNEXZ7921-24-70 20:32:00 Test Item Value Reference Range Interpretation Comments Hgb (test code = Hgb) 12.0 12.0-16.0 N [facility] CenterLvwtakoJUIYIKIDJE2339-60-96 20:32:00 Test Item Value Reference Range Interpretation Comments Segs (test code = Segs) 73.0 45.0-75.0 N [facility] CenterSobicooQIEPTOTWYD3009-60-27 20:32:00 Test Item Value Reference Range Interpretation Comments RBC (test code = RBC) 4.51 4.20-5.40 N [facility] CenterRqmponyKXSLQSESZX2867-90-63 20:32:00 Test Item Value Reference Range Interpretation Comments WBC (test code = WBC) 15.6 3.7-10.4 H [facility] CenterJbmcsnzFTDWPNKENA9570-47-86 20:32:00 Test Item Value Reference Range Interpretation Comments Hct (test code = Hct) 37.0 36.0-48.0 N [facility] CenterXxqsjapABSAPGNVZF6971-73-28 20:32:00 Test Item Value Reference Range Interpretation Comments MCV (test code = MCV) 82.0 81.0-99.0 N [facility] CenterNyzfcbiWLMZFHQDBT4078-43-24 20:32:00 Test Item Value Reference Range Interpretation Comments RDW (test code = RDW) 15.9 11.5-14.5 H [facility] CenterGreciarGEWXMDAJZN1582-20-43 20:32:00 Test Item Value Reference Range Interpretation Comments MCHC (test code = MCHC) 32.3 32.0-36.0 N [facility] CenterDcxgztkUGIUUUOXXL1606-68-33 20:32:00 Test Item Value Reference Range Interpretation Comments MCH (test code = MCH) 26.5 pg 27.0-31.0 L [facility] CenterJaxbyiuVIFREIFXPI0910-83-56 20:32:00 Test Item Value Reference Range Interpretation Comments Platelet (test code = Platelet) 371 133-450 N [facility] CenterQtnhveoUZQCUTGANV6363-56-29 20:32:00 Test Item Value Reference Range Interpretation Comments Polychrom (test code = Slight (11/26/2012 N Polychrom) 14:32:00) [facility] CenterLxlkpvsYIMVQIGMUK6317-11-35 20:32:00 Test Item Value Reference Range Interpretation Comments Large Plt (test code = Slight *ABN*(11/26/2012 A Large Plt) 14:32:00) [facility] CenterTojoxlpSRFTJMMPFZ6644-20-93 20:32:00 Test Item Value Reference Range Interpretation Comments Eosinophils # (test code 0.2 See_Comment N [A utomated message] The = Eosinophils #) system [facility] generated this result tra nsmitted reference range : <=0.5. The reference r megan was not used to int erpret this result as normal/abnormal . [facility] CenterCgvpmizITRICXHEVV0767-74-66 20:32:00 Test Item Value Reference Range Interpretation Comments Segs (test code = Segs) 73.0 45.0-75.0 N [facility] CenterLrxdagvOSNNQLWYSN8183-35-89 20:32:00 Test Item Value Reference Range Interpretation Comments Eosinophils # (test code 0.2 See_Comment N [A utomated message] The = Eosinophils #) system [facility] generated this result tra nsmitted reference range : <=0.5. The reference r megan was not used to int erpret this result as normal/abnormal . [facility] CenterRzpbnzePMXLPIBWQI5847-19-05 20:32:00 Test Item Value Reference Range Interpretation Comments Basophils # (test code 0.1 See_Comment N [Aut omated message] The = Basophils #) system which generated this result tra nsmitted reference range : <=0.2. The reference r megan was not used to int erpret this result as normal/abnormal . [facility] CenterTgxhftvXEDYATWOZR6284-00-82 20:32:00 Test Item Value Reference Range Interpretation Comments Lymphocytes (test code = Lymphocytes) 21.3 20.0-40.0 N [facility] CenterGfaoggwQFVWFZEMRT5284-69-55 20:32:00 Test Item Value Reference Range Interpretation Comments Segs-Bands # (test code = Segs-Bands #) 11.4 1.5-8.1 H [facility] CenterMxkdpheGNKYSWQYWY7079-30-57 20:32:00 Test Item Value Reference Range Interpretation Comments Eosinophils (test code = 1.1 See_Comment N [A utomated message] The Eosinophils) system which ge nerated this result tra nsmitted reference range : <=4.0. The reference r megan was not used to int erpret this result as normal/abnormal . [facility] CenterVlehroaTYBUFKPZPB6476-32-96 20:32:00 Test Item Value Reference Range Interpretation Comments Basophils (test code = 0.5 See_Comment N [Aut omated message] The Basophils) system which ge nerated this result tra nsmitted reference range : <=1.0. The reference r megan was not used to int erpret this result as normal/abnormal . [facility] CenterIqopnoqMAGWSQXOGP1229-92-34 20:32:00 Test Item Value Reference Range Interpretation Comments Monocytes (test code = Monocytes) 4.1 2.0-12.0 N [facility] CenterYymnzweVZFEVBHEHJ9291-93-74 20:32:00 Test Item Value Reference Range Interpretation Comments Lymphocytes # (test code = Lymphocytes 3.3 1.0-5.5 N #) [facility] CenterTgeqderYPYGDSJCKP6185-69-58 20:32:00 Test Item Value Reference Range Interpretation Comments Monocytes # (test code 0.6 See_Comment N [Aut omated message] The = Monocytes #) system which generated this result tra nsmitted reference range : <=0.8. The reference r megan was not used to int erpret this result as normal/abnormal . [facility] CenterKgrcqdkJXHMJUWWQP9160-12-57 20:32:00 Test Item Value Reference Range Interpretation Comments Basophils # (test code 0.1 See_Comment N [Aut omated message] The = Basophils #) system which generated this result tra nsmitted reference range : <=0.2. The reference r megan was not used to int erpret this result as normal/abnormal . [facility] CenterRcmiwrbIUZRSTDDTL3246-87-84 20:32:00 Test Item Value Reference Range Interpretation Comments PTT (test code = PTT) 28.5 s 22.9-35.8 N [facility] CenterAschfweNGEVDBKYDE0622-77-88 20:32:00 Test Item Value Reference Range Interpretation Comments PT (test code = PT) 12.9 s 12.0-14.7 N [facility] CenterWtxfnqaZBKXYDHRAL3449-32-24 20:32:00 Test Item Value Reference Range Interpretation Comments INR (test code = INR) 0.95 0.85-1.17 N [facility] HospitalTdmavbbGXMQPOFZUJ7843-14-62 20:32:00 Test Item Value Reference Range Interpretation Comments UA Urobilinogen (test code *NA*(11/26/2012 0.1-1.0 = UA Urobilinogen) 14:32:00) [facility]XcrrajkNPQZFXVGCF2363-33-06 20:32:00 Test Item Value Reference Range Interpretation Comments UA Bacteria (test code Occasional /HPF = UA Bacteria) *NA*(11/26/2012 14:32:00) [facility] CenterYsloqxaYSYBTJSCQI7812-60-48 20:32:00 Test Item Value Reference Range Interpretation Comments UA RBC (test code = 1 See_Comment N [Automa ashanti message] The UA RBC) system which ge nerated this result transmit ashanti reference range : <=2. The reference range was not used to interpr et this result as carmen l/abnormal. [facility] HospitalXftllsxKETGQBTHNQ6136-95-53 20:32:00 Test Item Value Reference Range Interpretation Comments UA WBC (test code = 3 See_Comment N [Automa ashanti message] The UA WBC) system which ge nerated this result transmit ashanti reference range : <=5. The reference range was not used to interpr et this result as carmen l/abnormal. [facility] CenterMlxedojOQHVTQSBSY1431-66-71 20:32:00 Test Item Value Reference Range Interpretation Comments UA Sq Epi (test code = Many /LPF A UA Sq Epi) *ABN*(11/26/2012 14:32:00) [facility] HospitalCyrxuqrAMANGWIIVD0632-87-42 20:32:00 Test Item Value Reference Range Interpretation Comments Micro? (test code = Performed *NA*(11/26/2012 Micro?) 14:32:00) [facility]QwrygbsJGMTBOGTUZ1166-60-84 20:32:00 Test Item Value Reference Range Interpretation Comments UA Mucus (test code = Few /LPF UA Mucus) *NA*(11/26/2012 14:32:00) [facility]TagtmdbQUPCCTTSQN0583-12-86 20:32:00 Test Item Value Reference Range Interpretation Comments Lymphocytes (test code = Lymphocytes) 21.3 20.0-40.0 N [facility] HospitalAllaopwHUDXGIWXCD4424-48-46 20:32:00 Test Item Value Reference Range Interpretation Comments UA Bili (test code = Negative *NA*(11/26/2012 UA Bili) 14:32:00) [facility] HospitalNvpdamjAFPTFXGGLM6294-92-78 20:32:00 Test Item Value Reference Range Interpretation Comments UA Ketones (test code Negative mg/dL = UA Ketones) *NA*(11/26/2012 14:32:00) [facility]EffvcafKQQJPKKFRG5092-64-77 20:32:00 Test Item Value Reference Range Interpretation Comments UA Protein (test code Negative mg/dL N = UA Protein) (11/26/2012 14:32:00) [facility] HospitalVktsjxxIKJNWTQKMM0691-21-16 20:32:00 Test Item Value Reference Range Interpretation Comments UA Leuk Est (test code Trace *ABN*(11/26/2012 A = UA Leuk Est) 14:32:00) [facility]wmlakjTWWGAZVJPW6351-74-22 20:32:00 Test Item Value Reference Range Interpretation Comments UA Nitrite (test code Negative (11/26/2012 N = UA Nitrite) 14:32:00) [facility] HospitalTmfwzzeHWMGFIPACT3980-49-46 20:32:00 Test Item Value Reference Range Interpretation Comments UA Blood (test code = Negative (11/26/2012 N UA Blood) 14:32:00) [facility]anoBulcitfTRNQPHQEKQ6963-40-73 20:32:00 Test Item Value Reference Range Interpretation Comments UA Color (test code = Yellow *NA*(11/26/2012 UA Color) 14:32:00) [facility] HospitalNyomrcsUMNPZKNTBT0162-50-58 20:32:00 Test Item Value Reference Range Interpretation Comments UA pH (test code = UA pH) 6.0 5.0-8.0 N [facility]anoGhzvxsaEKIRMXTMJU0182-66-14 20:32:00 Test Item Value Reference Range Interpretation Comments UA Spec Grav (test code = UA Spec Grav) 1.016 N [facility]anoFofafmtHQTDELCGWZ5043-54-62 20:32:00 Test Item Value Reference Range Interpretation Comments UA Turbidity (test code Slight A = UA Turbidity) *ABN*(11/26/2012 14:32:00) [facility] HospitalAwzdqkpXRZOUPWJTJ8277-36-59 20:32:00 Test Item Value Reference Range Interpretation Comments Segs-Bands # (test code = Segs-Bands #) 11.4 1.5-8.1 H [facility]anoYpydeygTKZMTPTJTK5548-23-21 20:32:00 Test Item Value Reference Range Interpretation Comments UA Glucose (test code Negative mg/dL = UA Glucose) *NA*(11/26/2012 14:32:00) [facility]MyndxwyGSGXGAQTIC4253-28-44 20:32:00 Test Item Value Reference Range Interpretation Comments Eosinophils (test code = 1.1 See_Comment N [A utomated message] The Eosinophils) system which ge nerated this result tra nsmitted reference range : <=4.0. The reference r megan was not used to int erpret this result as normal/abnormal . [facility] CenterOzhtcdfAWUQPHBKUC8543-43-80 20:32:00 Test Item Value Reference Range Interpretation Comments Basophils (test code = 0.5 See_Comment N [Aut omated message] The Basophils) system which ge nerated this result tra nsmitted reference range : <=1.0. The reference r megan was not used to int erpret this result as normal/abnormal . [facility] CenterOeuakeeVJXZBCAYGD5770-17-61 20:32:00 Test Item Value Reference Range Interpretation Comments Monocytes (test code = Monocytes) 4.1 2.0-12.0 N [facility] CenterZjblexyHTBNUVFTDX8927-11-90 20:32:00 Test Item Value Reference Range Interpretation Comments Lymphocytes # (test code = Lymphocytes 3.3 1.0-5.5 N #) [facility] CenterGcdsotdYOEKZGTUSY3693-87-47 20:32:00 Test Item Value Reference Range Interpretation Comments Monocytes # (test code 0.6 See_Comment N [Aut omated message] The = Monocytes #) system which generated this result tra nsmitted reference range : <=0.8. The reference r megan was not used to int erpret this result as normal/abnormal . [facility] CenterCscxirkLHSOETPVZZ3368-21-99 20:32:00 Test Item Value Reference Range Interpretation Comments PTT (test code = PTT) 28.5 s 22.9-35.8 N [facility] CenterDimotbfGXILDTRPGQ3938-33-40 20:32:00 Test Item Value Reference Range Interpretation Comments PT (test code = PT) 12.9 s 12.0-14.7 N [facility] CenterMerdztrUDADKPYOFC1324-99-84 20:32:00 Test Item Value Reference Range Interpretation Comments INR (test code = INR) 0.95 0.85-1.17 N [facility] HospitalQmbljmeZECBGFPQVL7537-41-00 20:32:00 Test Item Value Reference Range Interpretation Comments UA Urobilinogen (test code *NA*(11/26/2012 0.1-1.0 = UA Urobilinogen) 14:32:00) [facility]XeqxcvxOOTMJLOURT8047-38-83 20:32:00 Test Item Value Reference Range Interpretation Comments UA Bacteria (test code Occasional /HPF = UA Bacteria) *NA*(11/26/2012 14:32:00) [facility] CenterRcgdmoyCHLUVNPJF9018-96-10 20:32:00 Test Item Value Reference Range Interpretation Comments A/G Ratio (test code = A/G Ratio) 0.9 0.7-1.6 N [facility] CenterBczpcwzPRGEMPVWG0850-68-46 20:32:00 Test Item Value Reference Range Interpretation Comments Globulin (test code = Globulin) 4.4 2.0-4.0 H [facility] CenterQvcdtqsSUTJWWOFCR7087-96-45 20:32:00 Test Item Value Reference Range Interpretation Comments UA RBC (test code = 1 See_Comment N [Automa ashanti message] The UA RBC) system which ge nerated this result transmit ashanti reference range : <=2. The reference range was not used to interpr et this result as carmen l/abnormal. [facility] CenterLluxfwyECVKAUVWM0263-95-32 20:32:00 Test Item Value Reference Range Interpretation Comments AGAP (test code = AGAP) 13.0 10.0-20.0 N [facility] CenterRuinlpzCJUKRNMVI7068-65-54 20:32:00 Test Item Value Reference Range Interpretation Comments B/C Ratio (test code = B/C Ratio) 18 6-25 N [facility] CenterSyfoeqiEZMUTDDHI1895-54-37 20:32:00 Test Item Value Reference Range Interpretation Comments AST (test code = AST) 24 See_Comment N [Auto mated message] The system which ge nerated this result transmit ashanti reference range : <=37. The reference range was not used to interpr et this result as carmen l/abnormal. [facility] DsuuixhDKUABZBIH6873-63-60 20:32:00 Test Item Value Reference Range Interpretation Comments Bili Total (test code = Bili Total) 0.5 0.2-1.3 N [facility] GhxrpmfFWPMOAGRJ3508-82-21 20:32:00 Test Item Value Reference Range Interpretation Comments Alk Phos (test code = Alk Phos) 98 39-136 N [facility] CenterEbzpjyzEPRANDFYD8248-65-49 20:32:00 Test Item Value Reference Range Interpretation Comments ALT (test code = ALT) 37 See_Comment N [Auto mated message] The system which ge nerated this result transmit ashanti reference range : <=65. The reference range was not used to interpr et this result as carmen l/abnormal. [facility] CenterSpsznnkFIREKIWQC1406-25-95 20:32:00 Test Item Value Reference Range Interpretation Comments Total Protein (test code = Total 8.5 6.4-8.4 H Protein) [facility] CenterXnaitzgRTUKJSLIF6560-98-13 20:32:00 Test Item Value Reference Range Interpretation Comments eGFR (test code = eGFR) 128 [facility] CenterXtuyhecWYYGPMLUT4306-85-32 20:32:00 Test Item Value Reference Range Interpretation Comments Albumin Lvl (test code = Albumin Lvl) 4.1 3.5-5.0 N [facility] CenterXimsovcTXUORKVCK1245-98-20 20:32:00 Test Item Value Reference Range Interpretation Comments Chloride Lvl (test code = Chloride Lvl) 100 95-109 N [facility] HospitalFddxsmkCBUPRLPJGD0967-32-23 20:32:00 Test Item Value Reference Range Interpretation Comments UA WBC (test code = 3 See_Comment N [Automa ashanti message] The UA WBC) system which ge nerated this result transmit ashanti reference range : <=5. The reference range was not used to interpr et this result as carmen l/abnormal. [facility] CenterDpruftpHZBMWBXSN7966-09-23 20:32:00 Test Item Value Reference Range Interpretation Comments Potassium Lvl (test code = Potassium 4.0 3.5-5.1 N Lvl) [facility] CenterVjzxwkwXOFSMRMDO4767-66-01 20:32:00 Test Item Value Reference Range Interpretation Comments CO2 (test code = CO2) 28 24-32 N [facility] CenterOomtsahPWPDTRFPF7894-45-83 20:32:00 Test Item Value Reference Range Interpretation Comments Sodium Lvl (test code = Sodium Lvl) 137 135-145 N [facility] CenterYgqcipcYNMMQHDJX2975-26-28 20:32:00 Test Item Value Reference Range Interpretation Comments Calcium Lvl (test code = Calcium Lvl) 9.1 8.5-10.5 N [facility] CenterVwuugkfBZXPYJDVF8066-14-90 20:32:00 Test Item Value Reference Range Interpretation Comments Creatinine Lvl (test code = Creatinine 0.5 0.5-1.4 N Lvl) [facility] CenterQvakuuyLYISIRVBZ8948-92-25 20:32:00 Test Item Value Reference Range Interpretation Comments Glucose Lvl (test code = Glucose Lvl) 81 70-99 N [facility] CenterIatlidzCQXFRSNED8367-70-08 20:32:00 Test Item Value Reference Range Interpretation Comments BUN (test code = BUN) 9 7-22 N [facility] CenterVztsxypGXCQIPFWF9629-19-83 20:32:00 Test Item Value Reference Range Interpretation Comments Vitamin D 1,25 (OH)2 Total (test code = 52 18-72 Vitamin D 1,25 (OH)2 Total) [facility] CenterWqcrkulXOHLBOUEV5826-91-48 20:32:00 Test Item Value Reference Range Interpretation Comments Vitamin D2 1,25 (OH)2 (test code = no gt Vitamin D2 1,25 (OH)2) [facility] CenterTrdkmpuJIYZAWPCY2443-30-92 20:32:00 Test Item Value Reference Range Interpretation Comments Vitamin D3 1,25 (OH)2 (test code = 52 Vitamin D3 1,25 (OH)2) [facility] HospitalYnqngxuIXMQWQAMNE8913-07-79 20:32:00 Test Item Value Reference Range Interpretation Comments UA Sq Epi (test code = Many /LPF A UA Sq Epi) *ABN*(11/26/2012 14:32:00) [facility] CenterXlchyexNPESMVDRWQ8210-79-63 20:32:00 Test Item Value Reference Range Interpretation Comments MPV (test code = MPV) 8.7 7.4-10.4 N [facility] CenterCrmclxyHKDTAABDBA1954-48-98 20:32:00 Test Item Value Reference Range Interpretation Comments Hgb (test code = Hgb) 12.0 12.0-16.0 N [facility] CenterXqgwdiaBUAGLKRMQV8610-36-39 20:32:00 Test Item Value Reference Range Interpretation Comments RBC (test code = RBC) 4.51 4.20-5.40 N [facility] CenterNftyowwQEORETJEPU0208-27-63 20:32:00 Test Item Value Reference Range Interpretation Comments WBC (test code = WBC) 15.6 3.7-10.4 H [facility] CenterIrylzaxHYUYGXPCSQ2618-67-03 20:32:00 Test Item Value Reference Range Interpretation Comments Hct (test code = Hct) 37.0 36.0-48.0 N [facility] CenterFnomilbGSGSDPRVCY5008-68-58 20:32:00 Test Item Value Reference Range Interpretation Comments MCV (test code = MCV) 82.0 81.0-99.0 N [facility] CenterSboewrbVLGDEVKDEJ9253-27-22 20:32:00 Test Item Value Reference Range Interpretation Comments RDW (test code = RDW) 15.9 11.5-14.5 H [facility] CenterQgnhjyjJRKMOHIGKD4024-65-51 20:32:00 Test Item Value Reference Range Interpretation Comments MCHC (test code = MCHC) 32.3 32.0-36.0 N [facility] CenterJgtgyutFTXZNVMDIW8465-46-49 20:32:00 Test Item Value Reference Range Interpretation Comments MCH (test code = MCH) 26.5 pg 27.0-31.0 L [facility] CenterYhheigsMOUXOKPFEP5907-40-14 20:32:00 Test Item Value Reference Range Interpretation Comments Platelet (test code = Platelet) 371 133-450 N [facility] HospitalRstgsqoTPAVARKHEA6116-77-40 20:32:00 Test Item Value Reference Range Interpretation Comments Micro? (test code = Performed *NA*(11/26/2012 Micro?) 14:32:00) [facility] CenterWxwtfgiSUUDHOVJJE9359-92-15 20:32:00 Test Item Value Reference Range Interpretation Comments Polychrom (test code = Slight (11/26/2012 N Polychrom) 14:32:00) [facility] CenterCnnlpkrHNYBVSOQRS9650-60-15 20:32:00 Test Item Value Reference Range Interpretation Comments Large Plt (test code = Slight *ABN*(11/26/2012 A Large Plt) 14:32:00) [facility] CenterPirvqngHIORUMFAEX3946-72-53 20:32:00 Test Item Value Reference Range Interpretation Comments Segs (test code = Segs) 73.0 45.0-75.0 N [facility] CenterPeddeosFMRAJKANHS3641-42-02 20:32:00 Test Item Value Reference Range Interpretation Comments Eosinophils # (test code 0.2 See_Comment N [A utomated message] The = Eosinophils #) system whic h generated this result tra nsmitted reference range : <=0.5. The reference r megan was not used to int erpret this result as normal/abnormal . [facility] CenterRhoitshNJQEQQUUOH6529-53-79 20:32:00 Test Item Value Reference Range Interpretation Comments Basophils # (test code 0.1 See_Comment N [Aut omated message] The = Basophils #) system which generated this result tra nsmitted reference range : <=0.2. The reference r megan was not used to int erpret this result as normal/abnormal . [facility] CenterKlgonnqLSLJOHMCAZ7542-06-30 20:32:00 Test Item Value Reference Range Interpretation Comments Lymphocytes (test code = Lymphocytes) 21.3 20.0-40.0 N [facility] CenterIduzvsjWSDJSPZBQY4693-16-33 20:32:00 Test Item Value Reference Range Interpretation Comments Segs-Bands # (test code = Segs-Bands #) 11.4 1.5-8.1 H [facility] CenterMicrfhrXOTCPLKMNG3854-01-05 20:32:00 Test Item Value Reference Range Interpretation Comments Eosinophils (test code = 1.1 See_Comment N [A utomated message] The Eosinophils) system which ge nerated this result tra nsmitted reference range : <=4.0. The reference r megan was not used to int erpret this result as normal/abnormal . [facility] CenterMykcnfhVWCIBVYPHV0983-71-73 20:32:00 Test Item Value Reference Range Interpretation Comments Basophils (test code = 0.5 See_Comment N [Aut omated message] The Basophils) system which ge nerated this result tra nsmitted reference range : <=1.0. The reference r megan was not used to int erpret this result as normal/abnormal . [facility] CenterOnqattlEWQBPQTKGZ8935-81-92 20:32:00 Test Item Value Reference Range Interpretation Comments Monocytes (test code = Monocytes) 4.1 2.0-12.0 N [facility] HospitalVjfpzcaEUQPJCBVWR9622-51-34 20:32:00 Test Item Value Reference Range Interpretation Comments UA Mucus (test code = Few /LPF UA Mucus) *NA*(11/26/2012 14:32:00) [facility] CenterXhyrfsaVFUGGUOWXB5838-76-51 20:32:00 Test Item Value Reference Range Interpretation Comments Lymphocytes # (test code = Lymphocytes 3.3 1.0-5.5 N #) [facility] CenterQjcetibCTQTIRWEGH9043-43-29 20:32:00 Test Item Value Reference Range Interpretation Comments Monocytes # (test code 0.6 See_Comment N [Aut omated message] The = Monocytes #) system which generated this result tra nsmitted reference range : <=0.8. The reference r megan was not used to int erpret this result as normal/abnormal . [facility] CenterHznwbbcQQIOHJZVXN5584-73-14 20:32:00 Test Item Value Reference Range Interpretation Comments PTT (test code = PTT) 28.5 s 22.9-35.8 N [facility] CenterOfksjboTPITOXNVOQ3342-15-11 20:32:00 Test Item Value Reference Range Interpretation Comments PT (test code = PT) 12.9 s 12.0-14.7 N [facility] CenterQwdzmmfWSLCHFPNZX0450-55-43 20:32:00 Test Item Value Reference Range Interpretation Comments INR (test code = INR) 0.95 0.85-1.17 N [facility] HospitalSaibzfeLCESHAGJUG5322-12-53 20:32:00 Test Item Value Reference Range Interpretation Comments UA Urobilinogen (test code *NA*(11/26/2012 0.1-1.0 = UA Urobilinogen) 14:32:00) [facility] HospitalXztfayiUWFCCNDNJL7059-71-93 20:32:00 Test Item Value Reference Range Interpretation Comments UA Bacteria (test code Occasional /HPF = UA Bacteria) *NA*(11/26/2012 14:32:00) [facility] HospitalLnwjxfzCHSNROIFYG2566-05-22 20:32:00 Test Item Value Reference Range Interpretation Comments UA RBC (test code = 1 See_Comment N [Automa ashanti message] The UA RBC) system which ge nerated this result transmit ashanti reference range : <=2. The reference range was not used to interpr et this result as carmen l/abnormal. [facility] HospitalCukzaikMBWJLRMEFH8271-41-41 20:32:00 Test Item Value Reference Range Interpretation Comments UA WBC (test code = 3 See_Comment N [Automa ashanti message] The UA WBC) system which ge nerated this result transmit ashanti reference range : <=5. The reference range was not used to interpr et this result as carmen l/abnormal. [facility] HospitalOmoehepVFUEZRCCAK1912-65-18 20:32:00 Test Item Value Reference Range Interpretation Comments UA Sq Epi (test code = Many /LPF A UA Sq Epi) *ABN*(11/26/2012 14:32:00) [facility] HospitalJcmwjjaDNAUYWWSIW1902-33-95 20:32:00 Test Item Value Reference Range Interpretation Comments UA Bili (test code = Negative *NA*(11/26/2012 UA Bili) 14:32:00) [facility]AtewvjfKUDRQYDZVW2355-95-54 20:32:00 Test Item Value Reference Range Interpretation Comments Micro? (test code = Performed *NA*(11/26/2012 Micro?) 14:32:00) [facility] HospitalFbmnzqpLOIXISHEOR0361-99-21 20:32:00 Test Item Value Reference Range Interpretation Comments UA Mucus (test code = Few /LPF UA Mucus) *NA*(11/26/2012 14:32:00) [facility] HospitalGrvmsrnNSZTBBBMWR5670-27-77 20:32:00 Test Item Value Reference Range Interpretation Comments UA Bili (test code = Negative *NA*(11/26/2012 UA Bili) 14:32:00) [facility] HospitalCkjhowqYOWEIIEZFO8742-10-92 20:32:00 Test Item Value Reference Range Interpretation Comments UA Ketones (test code Negative mg/dL = UA Ketones) *NA*(11/26/2012 14:32:00) [facility] HospitalIjmccglTXIOOXTQWE7520-33-27 20:32:00 Test Item Value Reference Range Interpretation Comments UA Protein (test code Negative mg/dL N = UA Protein) (11/26/2012 14:32:00) [facility] HospitalPtfaqsdKVNDOOKYDD4956-75-04 20:32:00 Test Item Value Reference Range Interpretation Comments UA Leuk Est (test code Trace *ABN*(11/26/2012 A = UA Leuk Est) 14:32:00) [facility] HospitalVgpvazvEIOPEDANTL2196-84-39 20:32:00 Test Item Value Reference Range Interpretation Comments UA Nitrite (test code Negative (11/26/2012 N = UA Nitrite) 14:32:00) [facility] HospitalZzcgjwkJUKAUBVKUS1837-52-22 20:32:00 Test Item Value Reference Range Interpretation Comments UA Blood (test code = Negative (11/26/2012 N UA Blood) 14:32:00) [facility] HospitalDzqalyqKDSSUYZEWV8790-48-15 20:32:00 Test Item Value Reference Range Interpretation Comments UA Color (test code = Yellow *NA*(11/26/2012 UA Color) 14:32:00) [facility] HospitalQfevylxGXEWGDEGPN9804-52-89 20:32:00 Test Item Value Reference Range Interpretation Comments UA pH (test code = UA pH) 6.0 5.0-8.0 N [facility] HospitalBwjfjfiCZFOPDXOSN3733-63-65 20:32:00 Test Item Value Reference Range Interpretation Comments UA Ketones (test code Negative mg/dL = UA Ketones) *NA*(11/26/2012 14:32:00) [facility] HospitalEjkkyrtPEBETBMYEX1844-99-07 20:32:00 Test Item Value Reference Range Interpretation Comments UA Spec Grav (test code = UA Spec Grav) 1.016 N [facility] HospitalXzlmtiaCUFAZKRSCO5622-39-04 20:32:00 Test Item Value Reference Range Interpretation Comments UA Turbidity (test code Slight A = UA Turbidity) *ABN*(11/26/2012 14:32:00) [facility] HospitalIizmjdgSTMAAZSMAR5323-90-61 20:32:00 Test Item Value Reference Range Interpretation Comments UA Glucose (test code Negative mg/dL = UA Glucose) *NA*(11/26/2012 14:32:00) [facility] HospitalFwjffsyUFIHGMKGHE5742-96-99 20:32:00 Test Item Value Reference Range Interpretation Comments UA Protein (test code Negative mg/dL N = UA Protein) (11/26/2012 14:32:00) [facility] HospitalOlrpvjeMCUVSSQOLI6574-76-25 20:32:00 Test Item Value Reference Range Interpretation Comments UA Leuk Est (test code Trace *ABN*(11/26/2012 A = UA Leuk Est) 14:32:00) [facility] HospitalRlxsyhoWFSBBABBRG5681-63-20 20:32:00 Test Item Value Reference Range Interpretation Comments UA Nitrite (test code Negative (11/26/2012 N = UA Nitrite) 14:32:00) [facility] HospitalPnqyzsiORRNMXDTBF9111-76-53 20:32:00 Test Item Value Reference Range Interpretation Comments UA Blood (test code = Negative (11/26/2012 N UA Blood) 14:32:00) [facility] HospitalOjrcxrhIJTYOWUMAC3386-71-20 20:32:00 Test Item Value Reference Range Interpretation Comments UA Color (test code = Yellow *NA*(11/26/2012 UA Color) 14:32:00) [facility] HospitalUwppnfgIOHVRKAAAI9989-18-50 20:32:00 Test Item Value Reference Range Interpretation Comments UA pH (test code = UA pH) 6.0 5.0-8.0 N [facility]anoRwdapikXXPRGYSDKG4302-20-18 20:32:00 Test Item Value Reference Range Interpretation Comments UA Spec Grav (test code = UA Spec Grav) 1.016 N [facility] HospitalBajarvdHVUEIIBLZK9808-99-14 20:32:00 Test Item Value Reference Range Interpretation Comments UA Turbidity (test code Slight A = UA Turbidity) *ABN*(11/26/2012 14:32:00) [facility] HospitalGgqsrxuZBQESQCVDE4009-36-81 20:32:00 Test Item Value Reference Range Interpretation Comments UA Glucose (test code Negative mg/dL = UA Glucose) *NA*(11/26/2012 14:32:00) [facility]XlvayskVGBCTJOYB2292-82-49 20:32:00 Test Item Value Reference Range Interpretation Comments A/G Ratio (test code = A/G Ratio) 0.9 0.7-1.6 N [facility] CenterRlwrlpgIGMUOMZUA0990-15-71 20:32:00 Test Item Value Reference Range Interpretation Comments Globulin (test code = Globulin) 4.4 2.0-4.0 H [facility] CenterWlxpzkbGTEPEKEOV2802-59-59 20:32:00 Test Item Value Reference Range Interpretation Comments AGAP (test code = AGAP) 13.0 10.0-20.0 N [facility] CenterQlfirtdSVYAYXQTS4562-22-81 20:32:00 Test Item Value Reference Range Interpretation Comments B/C Ratio (test code = B/C Ratio) 18 6-25 N [facility] CenterKterirqOGJCRGADC3566-99-47 20:32:00 Test Item Value Reference Range Interpretation Comments AST (test code = AST) 24 See_Comment N [Auto mated message] The system which ge nerated this result transmit ashanti reference range : <=37. The reference range was not used to interpr et this result as carmen l/abnormal. [facility] CenterNijryrwKFNSJCZGF9931-00-28 20:32:00 Test Item Value Reference Range Interpretation Comments Bili Total (test code = Bili Total) 0.5 0.2-1.3 N [facility] CenterWzqhiqqAWILNNWAC3941-56-83 20:32:00 Test Item Value Reference Range Interpretation Comments Alk Phos (test code = Alk Phos) 98 39-136 N [facility] CenterSldemisHWTDWMRCM8681-59-63 20:32:00 Test Item Value Reference Range Interpretation Comments ALT (test code = ALT) 37 See_Comment N [Auto mated message] The system which ge nerated this result transmit ashanti reference range : <=65. The reference range was not used to interpr et this result as carmen l/abnormal. [facility] CenterAzqfjjwGPYNTDXPI8219-59-81 20:32:00 Test Item Value Reference Range Interpretation Comments Total Protein (test code = Total 8.5 6.4-8.4 H Protein) [facility] CenterMiknguqCKQWTYNZB1716-09-35 20:32:00 Test Item Value Reference Range Interpretation Comments eGFR (test code = eGFR) 128 [facility] CenterMshxcizGCSYTUPNM4526-47-57 20:32:00 Test Item Value Reference Range Interpretation Comments Albumin Lvl (test code = Albumin Lvl) 4.1 3.5-5.0 N [facility] CenterPqutyzaQLINUBMEN3871-90-20 20:32:00 Test Item Value Reference Range Interpretation Comments Chloride Lvl (test code = Chloride Lvl) 100 95-109 N [facility] CenterCewovbnZEXVMAFIJ5062-35-21 20:32:00 Test Item Value Reference Range Interpretation Comments Potassium Lvl (test code = Potassium 4.0 3.5-5.1 N Lvl) [facility] CenterQchwpksEFDHUXXOF4001-12-42 20:32:00 Test Item Value Reference Range Interpretation Comments CO2 (test code = CO2) 28 24-32 N [facility] CenterQegnsmuUVWHLUFEX3863-93-89 20:32:00 Test Item Value Reference Range Interpretation Comments Sodium Lvl (test code = Sodium Lvl) 137 135-145 N [facility] CenterPecqesnKRPBAEMEM7874-18-44 20:32:00 Test Item Value Reference Range Interpretation Comments Calcium Lvl (test code = Calcium Lvl) 9.1 8.5-10.5 N [facility] CenterGbmiupqECMQQGCRH3122-02-54 20:32:00 Test Item Value Reference Range Interpretation Comments Creatinine Lvl (test code = Creatinine 0.5 0.5-1.4 N Lvl) [facility] CenterOzmiwtvIVGHPCMLU4710-84-66 20:32:00 Test Item Value Reference Range Interpretation Comments Glucose Lvl (test code = Glucose Lvl) 81 70-99 N [facility] CenterWzgsdhwCCWCRWFJB6131-95-39 20:32:00 Test Item Value Reference Range Interpretation Comments BUN (test code = BUN) 9 7-22 N [facility] CenterUwgfyraOUWVLKWDW6173-06-64 20:32:00 Test Item Value Reference Range Interpretation Comments Vitamin D 1,25 (OH)2 Total (test code = 52 18-72 Vitamin D 1,25 (OH)2 Total) [facility] CenterCbtitknXPTQHGKBP6085-20-05 20:32:00 Test Item Value Reference Range Interpretation Comments Vitamin D2 1,25 (OH)2 (test code = no gt Vitamin D2 1,25 (OH)2) [facility] CenterVkknxzpWNPZIVUHL9610-54-55 20:32:00 Test Item Value Reference Range Interpretation Comments Vitamin D3 1,25 (OH)2 (test code = 52 Vitamin D3 1,25 (OH)2) [facility]PokhpsvRECHVWAYID9886-60-65 20:32:00 Test Item Value Reference Range Interpretation Comments MPV (test code = MPV) 8.7 7.4-10.4 N [facility] CenterFedjekeMNZYIQHGYF4530-49-57 20:32:00 Test Item Value Reference Range Interpretation Comments Hgb (test code = Hgb) 12.0 12.0-16.0 N [facility] CenterFaknsopFOJYCXGEXV1956-97-02 20:32:00 Test Item Value Reference Range Interpretation Comments RBC (test code = RBC) 4.51 4.20-5.40 N [facility] CenterSnipjzuKDTXGSILMM6015-35-23 20:32:00 Test Item Value Reference Range Interpretation Comments WBC (test code = WBC) 15.6 3.7-10.4 H [facility] CenterAfqpibjUMBRCAIJXT5541-98-17 20:32:00 Test Item Value Reference Range Interpretation Comments Hct (test code = Hct) 37.0 36.0-48.0 N [facility] CenterMvbbvssPEPRBECWKD0814-85-06 20:32:00 Test Item Value Reference Range Interpretation Comments MCV (test code = MCV) 82.0 81.0-99.0 N [facility] CenterBkbacisJBEYSTFSOT2106-05-24 20:32:00 Test Item Value Reference Range Interpretation Comments RDW (test code = RDW) 15.9 11.5-14.5 H [facility] CenterHvmnwvqVMHLWRSDGT0618-92-76 20:32:00 Test Item Value Reference Range Interpretation Comments MCHC (test code = MCHC) 32.3 32.0-36.0 N [facility] CenterFzierjyLJAJRSOPJF9896-78-37 20:32:00 Test Item Value Reference Range Interpretation Comments MCH (test code = MCH) 26.5 pg 27.0-31.0 L [facility] CenterNfehdjeADILZJLGUF8825-91-60 20:32:00 Test Item Value Reference Range Interpretation Comments Platelet (test code = Platelet) 371 133-450 N [facility] CenterNzhymupDZYKXFNYQD4350-45-29 20:32:00 Test Item Value Reference Range Interpretation Comments Polychrom (test code = Slight (11/26/2012 N Polychrom) 14:32:00) [facility] CenterSyyukqjDRYGMZUFZS2109-51-64 20:32:00 Test Item Value Reference Range Interpretation Comments Large Plt (test code = Slight *ABN*(11/26/2012 A Large Plt) 14:32:00) [facility] CenterObarpdsNUTPLVUYBZ3188-81-90 20:32:00 Test Item Value Reference Range Interpretation Comments Segs (test code = Segs) 73.0 45.0-75.0 N [facility] CenterQkjaiiiENEGWUEOYZ5196-41-66 20:32:00 Test Item Value Reference Range Interpretation Comments Eosinophils # (test code 0.2 See_Comment N [A utomated message] The = Eosinophils #) system whic h generated this result tra nsmitted reference range : <=0.5. The reference r megan was not used to int erpret this result as normal/abnormal . [facility] CenterPyocdjtDVPSCWTCUL2716-65-40 20:32:00 Test Item Value Reference Range Interpretation Comments Basophils # (test code 0.1 See_Comment N [Aut omated message] The = Basophils #) system which generated this result tra nsmitted reference range : <=0.2. The reference r megan was not used to int erpret this result as normal/abnormal . [facility] CenterYxsydxnJSRMUDDHAA3083-67-57 20:32:00 Test Item Value Reference Range Interpretation Comments Lymphocytes (test code = Lymphocytes) 21.3 20.0-40.0 N [facility] CenterZntcrlrDXHBTNKAFX9714-55-03 20:32:00 Test Item Value Reference Range Interpretation Comments Segs-Bands # (test code = Segs-Bands #) 11.4 1.5-8.1 H [facility] CenterCrjfcocORDCIYJQVG3698-20-28 20:32:00 Test Item Value Reference Range Interpretation Comments Eosinophils (test code = 1.1 See_Comment N [A utomated message] The Eosinophils) system which ge nerated this result tra nsmitted reference range : <=4.0. The reference r megan was not used to int erpret this result as normal/abnormal . [facility] CenterCqedjleMQGQYVFEYF8726-08-71 20:32:00 Test Item Value Reference Range Interpretation Comments Basophils (test code = 0.5 See_Comment N [Aut omated message] The Basophils) system which ge nerated this result tra nsmitted reference range : <=1.0. The reference r megan was not used to int erpret this result as normal/abnormal . [facility] CenterOfiyzrzVGZKDISPMU0265-10-22 20:32:00 Test Item Value Reference Range Interpretation Comments Monocytes (test code = Monocytes) 4.1 2.0-12.0 N [facility] CenterGwihtyxGRNQSEONYW4838-93-26 20:32:00 Test Item Value Reference Range Interpretation Comments Lymphocytes # (test code = Lymphocytes 3.3 1.0-5.5 N #) [facility] CenterFjhkviuWGNRXDSMBG6892-85-32 20:32:00 Test Item Value Reference Range Interpretation Comments Monocytes # (test code 0.6 See_Comment N [Aut omated message] The = Monocytes #) system which generated this result tra nsmitted reference range : <=0.8. The reference r megan was not used to int erpret this result as normal/abnormal . [facility] CenterTekwdruEUOHCTEICL2029-69-45 20:32:00 Test Item Value Reference Range Interpretation Comments PTT (test code = PTT) 28.5 s 22.9-35.8 N [facility] CenterQoveiulCOYKNULLIN6485-95-73 20:32:00 Test Item Value Reference Range Interpretation Comments PT (test code = PT) 12.9 s 12.0-14.7 N [facility] CenterNpyblkrUXRDCOENML3739-71-44 20:32:00 Test Item Value Reference Range Interpretation Comments INR (test code = INR) 0.95 0.85-1.17 N [facility]BgyaewmPWRSDJGJJH4269-23-24 20:32:00 Test Item Value Reference Range Interpretation Comments UA Urobilinogen (test code *NA*(11/26/2012 0.1-1.0 = UA Urobilinogen) 14:32:00) [facility] HospitalVkooroqBEKPOYXHHR1780-95-10 20:32:00 Test Item Value Reference Range Interpretation Comments UA Bacteria (test code Occasional /HPF = UA Bacteria) *NA*(11/26/2012 14:32:00) [facility]TwsserwFERGJMFZGS1857-42-46 20:32:00 Test Item Value Reference Range Interpretation Comments UA RBC (test code = 1 See_Comment N [Automa ashanti message] The UA RBC) system which ge nerated this result transmit ashanti reference range : <=2. The reference range was not used to interpr et this result as carmen l/abnormal. [facility]anoFhyezngPLKCXOKEWL5550-55-23 20:32:00 Test Item Value Reference Range Interpretation Comments UA WBC (test code = 3 See_Comment N [Automa ashanti message] The UA WBC) system which ge nerated this result transmit ashanti reference range : <=5. The reference range was not used to interpr et this result as caremn l/abnormal. [facility] HospitalLagrkqsPFQARJRWSJ6278-50-69 20:32:00 Test Item Value Reference Range Interpretation Comments UA Sq Epi (test code = Many /LPF A UA Sq Epi) *ABN*(11/26/2012 14:32:00) [facility]anoUrvjpsdXFZOXWBCEO4465-47-20 20:32:00 Test Item Value Reference Range Interpretation Comments Micro? (test code = Performed *NA*(11/26/2012 Micro?) 14:32:00) [facility]anoNbvtlwbJXMCTBNZLB7190-29-17 20:32:00 Test Item Value Reference Range Interpretation Comments UA Mucus (test code = Few /LPF UA Mucus) *NA*(11/26/2012 14:32:00) [facility]anoAcdergiBTNGQYQQLL2767-31-52 20:32:00 Test Item Value Reference Range Interpretation Comments UA Bili (test code = Negative *NA*(11/26/2012 UA Bili) 14:32:00) [facility]anoPhpmjfqWKPGQZJFUI8591-13-23 20:32:00 Test Item Value Reference Range Interpretation Comments UA Ketones (test code Negative mg/dL = UA Ketones) *NA*(11/26/2012 14:32:00) [facility]anoEqkgptzKFFOTMQHQT9250-29-17 20:32:00 Test Item Value Reference Range Interpretation Comments UA Protein (test code Negative mg/dL N = UA Protein) (11/26/2012 14:32:00) [facility] HospitalTlpskqpGMDKBATQRC9290-66-22 20:32:00 Test Item Value Reference Range Interpretation Comments UA Leuk Est (test code Trace *ABN*(11/26/2012 A = UA Leuk Est) 14:32:00) [facility] HospitalQstzukgCWSBWCIOQB4037-26-66 20:32:00 Test Item Value Reference Range Interpretation Comments UA Nitrite (test code Negative (11/26/2012 N = UA Nitrite) 14:32:00) [facility] HospitalRfszfelDQFUUGNCSQ4104-24-22 20:32:00 Test Item Value Reference Range Interpretation Comments UA Blood (test code = Negative (11/26/2012 N UA Blood) 14:32:00) [facility] HospitalQjbmnznHKAWFITCIS1364-87-83 20:32:00 Test Item Value Reference Range Interpretation Comments UA Color (test code = Yellow *NA*(11/26/2012 UA Color) 14:32:00) [facility] HospitalNaiirvbPHFOVVKYEJ4691-47-49 20:32:00 Test Item Value Reference Range Interpretation Comments UA pH (test code = UA pH) 6.0 5.0-8.0 N [facility] HospitalNzoahmbHYSEJLDSGM2124-59-38 20:32:00 Test Item Value Reference Range Interpretation Comments UA Spec Grav (test code = UA Spec Grav) 1.016 N [facility] HospitalGjakdoaWVQMNSSAAL0879-42-79 20:32:00 Test Item Value Reference Range Interpretation Comments UA Turbidity (test code Slight A = UA Turbidity) *ABN*(11/26/2012 14:32:00) [facility] HospitalUbauuodHVJIKFFYKW5110-04-54 20:32:00 Test Item Value Reference Range Interpretation Comments UA Glucose (test code Negative mg/dL = UA Glucose) *NA*(11/26/2012 14:32:00) [facility] CenterCzmorcxKCKQEMKUG4463-02-89 20:32:00 Test Item Value Reference Range Interpretation Comments A/G Ratio (test code = A/G Ratio) 0.9 0.7-1.6 N [facility] CenterJmwbiltFGCSKKOWX2844-31-99 20:32:00 Test Item Value Reference Range Interpretation Comments Globulin (test code = Globulin) 4.4 2.0-4.0 H [facility] CenterWeuhqheWMSPDIXUB5452-49-74 20:32:00 Test Item Value Reference Range Interpretation Comments AGAP (test code = AGAP) 13.0 10.0-20.0 N [facility] CenterLljfuehSGWVFCNGR1212-04-77 20:32:00 Test Item Value Reference Range Interpretation Comments B/C Ratio (test code = B/C Ratio) 18 6-25 N [facility] CenterOfwsyvzZXNYBQAWN6033-75-68 20:32:00 Test Item Value Reference Range Interpretation Comments AST (test code = AST) 24 See_Comment N [Auto mated message] The system which ge nerated this result transmit ashanti reference range : <=37. The reference range was not used to interpr et this result as carmen l/abnormal. [facility] CenterVmppnngQWGHYKJEP8144-66-69 20:32:00 Test Item Value Reference Range Interpretation Comments Bili Total (test code = Bili Total) 0.5 0.2-1.3 N [facility] CenterJbsrljsITIEFYQJS8043-31-52 20:32:00 Test Item Value Reference Range Interpretation Comments Alk Phos (test code = Alk Phos) 98 39-136 N [facility] CenterBmuksvfZSLRVAFVD1500-52-12 20:32:00 Test Item Value Reference Range Interpretation Comments ALT (test code = ALT) 37 See_Comment N [Auto mated message] The system which ge nerated this result transmit ashanti reference range : <=65. The reference range was not used to interpr et this result as carmen l/abnormal. [facility] CenterJjugdgqEXEDXPIQB3150-38-58 20:32:00 Test Item Value Reference Range Interpretation Comments Total Protein (test code = Total 8.5 6.4-8.4 H Protein) [facility] CenterCsigvroQLPJRKYJW8951-49-83 20:32:00 Test Item Value Reference Range Interpretation Comments eGFR (test code = eGFR) 128 [facility] CenterIoejyifPGQANDANO7781-85-93 20:32:00 Test Item Value Reference Range Interpretation Comments Albumin Lvl (test code = Albumin Lvl) 4.1 3.5-5.0 N [facility] CenterMpscyncBZPMYYINU0447-51-18 20:32:00 Test Item Value Reference Range Interpretation Comments Chloride Lvl (test code = Chloride Lvl) 100 95-109 N [facility] CenterTgdonqkOTJJYIZQF2014-89-76 20:32:00 Test Item Value Reference Range Interpretation Comments Potassium Lvl (test code = Potassium 4.0 3.5-5.1 N Lvl) [facility] CenterZbtwumiQTPOJFCYL4157-23-06 20:32:00 Test Item Value Reference Range Interpretation Comments CO2 (test code = CO2) 28 24-32 N [facility] CenterPvdofveMCYIYFKQQ1086-35-09 20:32:00 Test Item Value Reference Range Interpretation Comments Sodium Lvl (test code = Sodium Lvl) 137 135-145 N [facility] CenterQhcltiwKJWUTZWRB5264-87-75 20:32:00 Test Item Value Reference Range Interpretation Comments Calcium Lvl (test code = Calcium Lvl) 9.1 8.5-10.5 N [facility] CenterLynzkprMVYMEFDQD3877-91-53 20:32:00 Test Item Value Reference Range Interpretation Comments Creatinine Lvl (test code = Creatinine 0.5 0.5-1.4 N Lvl) [facility] CenterNrxilxxMYAYLALLO0485-26-57 20:32:00 Test Item Value Reference Range Interpretation Comments Glucose Lvl (test code = Glucose Lvl) 81 70-99 N [facility] CenterSpdygdoZDJUQKECV0385-72-38 20:32:00 Test Item Value Reference Range Interpretation Comments BUN (test code = BUN) 9 7-22 N [facility] CenterIceaixjVPKZOQDKR4489-65-12 20:32:00 Test Item Value Reference Range Interpretation Comments Vitamin D 1,25 (OH)2 Total (test code = 52 18-72 Vitamin D 1,25 (OH)2 Total) [facility] CenterCldvbzwFEUBXUVWQ7624-10-29 20:32:00 Test Item Value Reference Range Interpretation Comments Vitamin D2 1,25 (OH)2 (test code = no gt Vitamin D2 1,25 (OH)2) [facility] CenterOrztjieXKDWESIAJ7908-75-47 20:32:00 Test Item Value Reference Range Interpretation Comments Vitamin D3 1,25 (OH)2 (test code = 52 Vitamin D3 1,25 (OH)2) [facility] CenterVevvqrvGBQLEBVHMH7116-81-56 20:32:00 Test Item Value Reference Range Interpretation Comments MPV (test code = MPV) 8.7 7.4-10.4 N [facility] CenterJzezicuYCEMCCEDVD5027-54-69 20:32:00 Test Item Value Reference Range Interpretation Comments Hgb (test code = Hgb) 12.0 12.0-16.0 N [facility] CenterVfashbaIYRJUOQREE1976-52-22 20:32:00 Test Item Value Reference Range Interpretation Comments RBC (test code = RBC) 4.51 4.20-5.40 N [facility] CenterOlbuijmYFXXYAEQKH2089-47-69 20:32:00 Test Item Value Reference Range Interpretation Comments WBC (test code = WBC) 15.6 3.7-10.4 H [facility] CenterIjmkllhSZFVSVZSAX1542-93-17 20:32:00 Test Item Value Reference Range Interpretation Comments Hct (test code = Hct) 37.0 36.0-48.0 N [facility] CenterXdsoxmaAUZGYUDAFQ4544-38-02 20:32:00 Test Item Value Reference Range Interpretation Comments MCV (test code = MCV) 82.0 81.0-99.0 N [facility] CenterRtqiilvHYSAFGPMTB0164-27-67 20:32:00 Test Item Value Reference Range Interpretation Comments RDW (test code = RDW) 15.9 11.5-14.5 H [facility] CenterOzxckmiCAHAOYHKSL8257-42-40 20:32:00 Test Item Value Reference Range Interpretation Comments MCHC (test code = MCHC) 32.3 32.0-36.0 N [facility] CenterHxxkmwmPWNRPJIDRX4140-08-73 20:32:00 Test Item Value Reference Range Interpretation Comments MCH (test code = MCH) 26.5 pg 27.0-31.0 L [facility] CenterFsurynbZRAORQDKGN7188-61-59 20:32:00 Test Item Value Reference Range Interpretation Comments Platelet (test code = Platelet) 371 133-450 N [facility] CenterKlvccouFBWHFNCZWO2041-16-87 20:32:00 Test Item Value Reference Range Interpretation Comments Polychrom (test code = Slight (11/26/2012 N Polychrom) 14:32:00) [facility] CenterHfjnoyoBBAMWSMSKM1769-38-88 20:32:00 Test Item Value Reference Range Interpretation Comments Large Plt (test code = Slight *ABN*(11/26/2012 A Large Plt) 14:32:00) [facility] CenterXfttvyvEOTKXBLFHM5889-23-47 20:32:00 Test Item Value Reference Range Interpretation Comments Segs (test code = Segs) 73.0 45.0-75.0 N [facility] CenterUhhaxnzLBSUXYNVHX5330-88-22 20:32:00 Test Item Value Reference Range Interpretation Comments Eosinophils # (test code 0.2 See_Comment N [A utomated message] The = Eosinophils #) system ic h generated this result tra nsmitted reference range : <=0.5. The reference r megan was not used to int erpret this result as normal/abnormal . [facility] CenterWnwjecjQMDXLISQWV4975-89-33 20:32:00 Test Item Value Reference Range Interpretation Comments Basophils # (test code 0.1 See_Comment N [Aut omated message] The = Basophils #) system which generated this result tra nsmitted reference range : <=0.2. The reference r megan was not used to int erpret this result as normal/abnormal . [facility] CenterEuaewcyNEQWAHEMOL3099-30-54 20:32:00 Test Item Value Reference Range Interpretation Comments Lymphocytes (test code = Lymphocytes) 21.3 20.0-40.0 N [facility] CenterNxxfvvmKLZKKSLEWT3958-81-16 20:32:00 Test Item Value Reference Range Interpretation Comments Segs-Bands # (test code = Segs-Bands #) 11.4 1.5-8.1 H [facility] CenterOcowtljKCKPAFMPHC5612-25-41 20:32:00 Test Item Value Reference Range Interpretation Comments Eosinophils (test code = 1.1 See_Comment N [A utomated message] The Eosinophils) system which ge nerated this result tra nsmitted reference range : <=4.0. The reference r megan was not used to int erpret this result as normal/abnormal . [facility] CenterBquyeagLQEJKWPBCO2518-86-76 20:32:00 Test Item Value Reference Range Interpretation Comments Basophils (test code = 0.5 See_Comment N [Aut omated message] The Basophils) system which ge nerated this result tra nsmitted reference range : <=1.0. The reference r megan was not used to int erpret this result as normal/abnormal . [facility] CenterSepoqjoPWLCAEQGSA1093-40-13 20:32:00 Test Item Value Reference Range Interpretation Comments Monocytes (test code = Monocytes) 4.1 2.0-12.0 N [facility] CenterLmbcgowHXFXSYHTBM7704-24-09 20:32:00 Test Item Value Reference Range Interpretation Comments Lymphocytes # (test code = Lymphocytes 3.3 1.0-5.5 N #) [facility] CenterJnblcloSSJTGGUCHB2185-60-70 20:32:00 Test Item Value Reference Range Interpretation Comments Monocytes # (test code 0.6 See_Comment N [Aut omated message] The = Monocytes #) system which generated this result tra nsmitted reference range : <=0.8. The reference r megan was not used to int erpret this result as normal/abnormal . [facility] CenterSphsftkEXYRQFZHEB3248-85-09 20:32:00 Test Item Value Reference Range Interpretation Comments PTT (test code = PTT) 28.5 s 22.9-35.8 N [facility] CenterRezxufqVDXISZFBIA3360-14-14 20:32:00 Test Item Value Reference Range Interpretation Comments PT (test code = PT) 12.9 s 12.0-14.7 N [facility] CenterSnwxamiWWJVOMFQDG5051-38-26 20:32:00 Test Item Value Reference Range Interpretation Comments INR (test code = INR) 0.95 0.85-1.17 N [facility] HospitalCayedbdUDHOLBTZLK1750-74-98 20:32:00 Test Item Value Reference Range Interpretation Comments UA Urobilinogen (test code *NA*(11/26/2012 0.1-1.0 = UA Urobilinogen) 14:32:00) [facility] HospitalCnofyreFDEXHNQABN7930-06-38 20:32:00 Test Item Value Reference Range Interpretation Comments UA Bacteria (test code Occasional /HPF = UA Bacteria) *NA*(11/26/2012 14:32:00) [facility] HospitalBmhvlvkKLJSEPXJGV9503-03-76 20:32:00 Test Item Value Reference Range Interpretation Comments UA RBC (test code = 1 See_Comment N [Automa ashanti message] The UA RBC) system which ge nerated this result transmit ashanti reference range : <=2. The reference range was not used to interpr et this result as camren l/abnormal. [facility] HospitalWjembqlQWLNKCZEZW6611-21-93 20:32:00 Test Item Value Reference Range Interpretation Comments UA WBC (test code = 3 See_Comment N [Automa ashanti message] The UA WBC) system which ge nerated this result transmit ashanti reference range : <=5. The reference range was not used to interpr et this result as carmen l/abnormal. [facility] HospitalTfqrwxbWTHMDWMPOQ4614-92-67 20:32:00 Test Item Value Reference Range Interpretation Comments UA Sq Epi (test code = Many /LPF A UA Sq Epi) *ABN*(11/26/2012 14:32:00) [facility] HospitalFhwqshzQHIUKQLPLW4965-68-67 20:32:00 Test Item Value Reference Range Interpretation Comments Micro? (test code = Performed *NA*(11/26/2012 Micro?) 14:32:00) [facility] HospitalOkupxplXRLDHKECXB4499-98-23 20:32:00 Test Item Value Reference Range Interpretation Comments UA Mucus (test code = Few /LPF UA Mucus) *NA*(11/26/2012 14:32:00) [facility] HospitalTdtyxblRSABTCKRTN4019-49-90 20:32:00 Test Item Value Reference Range Interpretation Comments UA Bili (test code = Negative *NA*(11/26/2012 UA Bili) 14:32:00) [facility] HospitalJgsprrgWHFVTLYNPE2998-01-73 20:32:00 Test Item Value Reference Range Interpretation Comments UA Ketones (test code Negative mg/dL = UA Ketones) *NA*(11/26/2012 14:32:00) [facility] HospitalWamzhrqTXMCVJAZZD8179-26-51 20:32:00 Test Item Value Reference Range Interpretation Comments UA Protein (test code Negative mg/dL N = UA Protein) (11/26/2012 14:32:00) [facility] HospitalItoyqteIEZQRNNATY2369-93-49 20:32:00 Test Item Value Reference Range Interpretation Comments UA Leuk Est (test code Trace *ABN*(11/26/2012 A = UA Leuk Est) 14:32:00) [facility] HospitalNmohtdpMKKPXLRXYA2911-34-69 20:32:00 Test Item Value Reference Range Interpretation Comments UA Nitrite (test code Negative (11/26/2012 N = UA Nitrite) 14:32:00) [facility] HospitalBeiggesQMENYTXHVP7193-19-01 20:32:00 Test Item Value Reference Range Interpretation Comments UA Blood (test code = Negative (11/26/2012 N UA Blood) 14:32:00) [facility] HospitalUbbkihnBSQZTBQYHK7655-21-10 20:32:00 Test Item Value Reference Range Interpretation Comments UA Color (test code = Yellow *NA*(11/26/2012 UA Color) 14:32:00) [facility] HospitalYyoiuegQYJSDYWFCP7862-13-89 20:32:00 Test Item Value Reference Range Interpretation Comments UA pH (test code = UA pH) 6.0 5.0-8.0 N [facility]DsxmjqmXFWIPSWDNZ9174-48-65 20:32:00 Test Item Value Reference Range Interpretation Comments UA Spec Grav (test code = UA Spec Grav) 1.016 N [facility] HospitalVvhdvajINQZVXLDYL0618-23-04 20:32:00 Test Item Value Reference Range Interpretation Comments UA Turbidity (test code Slight A = UA Turbidity) *ABN*(11/26/2012 14:32:00) [facility] HospitalFzrvvwsJHSTLAUZNG2020-83-97 20:32:00 Test Item Value Reference Range Interpretation Comments UA Glucose (test code Negative mg/dL = UA Glucose) *NA*(11/26/2012 14:32:00) [facility] CenterZgzmpzoSUSKBKZBB0077-75-64 20:32:00 Test Item Value Reference Range Interpretation Comments A/G Ratio (test code = A/G Ratio) 0.9 0.7-1.6 N [facility] CenterNyhtttdKBTTGYTEA3692-75-43 20:32:00 Test Item Value Reference Range Interpretation Comments Globulin (test code = Globulin) 4.4 2.0-4.0 H [facility] CenterSthoajrYOTNYVMJQ7580-50-91 20:32:00 Test Item Value Reference Range Interpretation Comments AGAP (test code = AGAP) 13.0 10.0-20.0 N [facility] CenterAeoegjvEVHVMANGT9631-92-03 20:32:00 Test Item Value Reference Range Interpretation Comments B/C Ratio (test code = B/C Ratio) 18 6-25 N [facility] CenterHvwnaskRALCATUCQ4930-76-64 20:32:00 Test Item Value Reference Range Interpretation Comments AST (test code = AST) 24 See_Comment N [Auto mated message] The system which ge nerated this result transmit ashanti reference range : <=37. The reference range was not used to interpr et this result as carmen l/abnormal. [facility] CenterUjvkcfdZTCQFHJNP5363-90-32 20:32:00 Test Item Value Reference Range Interpretation Comments Bili Total (test code = Bili Total) 0.5 0.2-1.3 N [facility] CenterAbiewqhDQUDAEEDB9892-22-86 20:32:00 Test Item Value Reference Range Interpretation Comments Alk Phos (test code = Alk Phos) 98 39-136 N [facility] CenterUrefoipVFJWRDOHG7855-97-50 20:32:00 Test Item Value Reference Range Interpretation Comments ALT (test code = ALT) 37 See_Comment N [Auto mated message] The system which ge nerated this result transmit ashanti reference range : <=65. The reference range was not used to interpr et this result as carmen l/abnormal. [facility] CenterCjyuposUVODGZWBQ6583-69-27 20:32:00 Test Item Value Reference Range Interpretation Comments Total Protein (test code = Total 8.5 6.4-8.4 H Protein) [facility] CenterLghaixqBSLZGFNDE6813-76-76 20:32:00 Test Item Value Reference Range Interpretation Comments eGFR (test code = eGFR) 128 [facility] CenterYiptfotJZDWHTKAX1058-85-25 20:32:00 Test Item Value Reference Range Interpretation Comments Albumin Lvl (test code = Albumin Lvl) 4.1 3.5-5.0 N [facility] CenterArzaeucAATNIZUBT6038-54-46 20:32:00 Test Item Value Reference Range Interpretation Comments Chloride Lvl (test code = Chloride Lvl) 100 95-109 N [facility] CenterBxqhznuNWLQMEXNA9035-68-21 20:32:00 Test Item Value Reference Range Interpretation Comments Potassium Lvl (test code = Potassium 4.0 3.5-5.1 N Lvl) [facility] CenterAfmybumPNDQYSYIZ8946-12-78 20:32:00 Test Item Value Reference Range Interpretation Comments CO2 (test code = CO2) 28 24-32 N [facility] CenterGaqfqmjUNROPIVIN3329-75-45 20:32:00 Test Item Value Reference Range Interpretation Comments Sodium Lvl (test code = Sodium Lvl) 137 135-145 N [facility] CenterSaqnbbwKGXUYEVWJ2551-19-53 20:32:00 Test Item Value Reference Range Interpretation Comments Calcium Lvl (test code = Calcium Lvl) 9.1 8.5-10.5 N [facility] CenterKwsvccuGWJTMITGL5957-27-56 20:32:00 Test Item Value Reference Range Interpretation Comments Creatinine Lvl (test code = Creatinine 0.5 0.5-1.4 N Lvl) [facility] CenterJasmuiiXPEGRGVDE6439-31-31 20:32:00 Test Item Value Reference Range Interpretation Comments Glucose Lvl (test code = Glucose Lvl) 81 70-99 N [facility] CenterFhhxslcBBAJQJHQC7258-34-09 20:32:00 Test Item Value Reference Range Interpretation Comments BUN (test code = BUN) 9 7-22 N [facility] CenterQpixctpWKAEOMFVT9696-63-39 20:32:00 Test Item Value Reference Range Interpretation Comments Vitamin D 1,25 (OH)2 Total (test code = 52 18-72 Vitamin D 1,25 (OH)2 Total) [facility] CenterCxjoeppKFJFFWIJZ0508-54-19 20:32:00 Test Item Value Reference Range Interpretation Comments Vitamin D2 1,25 (OH)2 (test code = no gt Vitamin D2 1,25 (OH)2) [facility] CenterXxsgrqaTQUWAQSRV1661-82-34 20:32:00 Test Item Value Reference Range Interpretation Comments Vitamin D3 1,25 (OH)2 (test code = 52 Vitamin D3 1,25 (OH)2) [facility]IlkoidfECGUPDTARI0717-33-52 20:32:00 Test Item Value Reference Range Interpretation Comments MPV (test code = MPV) 8.7 7.4-10.4 N [facility] CenterMrthvoqMRYEEDCICX7867-37-20 20:32:00 Test Item Value Reference Range Interpretation Comments Hgb (test code = Hgb) 12.0 12.0-16.0 N [place] [address]-02-21 20:32:00 Test Item Value Reference Range Interpretation Comments RBC (test code = RBC) 4.51 4.20-5.40 N [facility] CenterCzscqpzRAMTZTCBKU3858-48-00 20:32:00 Test Item Value Reference Range Interpretation Comments WBC (test code = WBC) 15.6 3.7-10.4 H [facility] CenterNjfeeemMHDVELYSEY1580-29-10 20:32:00 Test Item Value Reference Range Interpretation Comments Hct (test code = Hct) 37.0 36.0-48.0 N [facility] CenterLqwdjcjZPMOXGOSIZ3713-67-74 20:32:00 Test Item Value Reference Range Interpretation Comments MCV (test code = MCV) 82.0 81.0-99.0 N [facility] CenterGtslpupQCVRTPJRME1229-19-56 20:32:00 Test Item Value Reference Range Interpretation Comments RDW (test code = RDW) 15.9 11.5-14.5 H [facility] CenterSblgnqdANYRJZZYWB3827-04-58 20:32:00 Test Item Value Reference Range Interpretation Comments MCHC (test code = MCHC) 32.3 32.0-36.0 N [facility] CenterEqdtqcqOYYLGGGPTF8351-24-98 20:32:00 Test Item Value Reference Range Interpretation Comments MCH (test code = MCH) 26.5 pg 27.0-31.0 L [facility] CenterFlazvoaZOEBBKZMPS2244-70-40 20:32:00 Test Item Value Reference Range Interpretation Comments Platelet (test code = Platelet) 371 133-450 N [facility] CenterSpcfpzpFNZUQAEABS9423-89-34 20:32:00 Test Item Value Reference Range Interpretation Comments Polychrom (test code = Slight (11/26/2012 N Polychrom) 14:32:00) [facility] CenterRsqrogaIKMKEBLMQR4341-30-66 20:32:00 Test Item Value Reference Range Interpretation Comments Large Plt (test code = Slight *ABN*(11/26/2012 A Large Plt) 14:32:00) [facility] CenterHoalilkEERAPFOPCO8067-10-23 20:32:00 Test Item Value Reference Range Interpretation Comments Segs (test code = Segs) 73.0 45.0-75.0 N [facility] CenterGycjpsdRGONJMPAPZ5330-22-06 20:32:00 Test Item Value Reference Range Interpretation Comments Eosinophils # (test code 0.2 See_Comment N [A utomated message] The = Eosinophils #) system whic h generated this result tra nsmitted reference range : <=0.5. The reference r megan was not used to int erpret this result as normal/abnormal . [facility] CenterSrobnhzZDSSBPHJFB8330-43-37 20:32:00 Test Item Value Reference Range Interpretation Comments Basophils # (test code 0.1 See_Comment N [Aut omated message] The = Basophils #) system which generated this result tra nsmitted reference range : <=0.2. The reference r megan was not used to int erpret this result as normal/abnormal . [facility] CenterVufbzvyWZUCKNEHXX7041-38-56 20:32:00 Test Item Value Reference Range Interpretation Comments Lymphocytes (test code = Lymphocytes) 21.3 20.0-40.0 N [facility] CenterVowmwafSLQGRGRZCV1187-65-28 20:32:00 Test Item Value Reference Range Interpretation Comments Segs-Bands # (test code = Segs-Bands #) 11.4 1.5-8.1 H [facility] CenterEqwlhxwIVAINWLYYL7208-13-65 20:32:00 Test Item Value Reference Range Interpretation Comments Eosinophils (test code = 1.1 See_Comment N [A utomated message] The Eosinophils) system which ge nerated this result tra nsmitted reference range : <=4.0. The reference r megan was not used to int erpret this result as normal/abnormal . [facility] CenterOinxmvrMGMINPZIZE0784-82-43 20:32:00 Test Item Value Reference Range Interpretation Comments Basophils (test code = 0.5 See_Comment N [Aut omated message] The Basophils) system which ge nerated this result tra nsmitted reference range : <=1.0. The reference r megan was not used to int erpret this result as normal/abnormal . [facility] CenterCalszzfYWKCVFXTSH7284-08-59 20:32:00 Test Item Value Reference Range Interpretation Comments Monocytes (test code = Monocytes) 4.1 2.0-12.0 N [facility] CenterOmpkctgMLPJLQGJTT7769-57-77 20:32:00 Test Item Value Reference Range Interpretation Comments Lymphocytes # (test code = Lymphocytes 3.3 1.0-5.5 N #) [facility] CenterJspsrciVSKJUZTHFN3406-96-41 20:32:00 Test Item Value Reference Range Interpretation Comments Monocytes # (test code 0.6 See_Comment N [Aut omated message] The = Monocytes #) system which generated this result tra nsmitted reference range : <=0.8. The reference r megan was not used to int erpret this result as normal/abnormal . [facility] CenterXenqzfoAFFSSZLGQP3908-11-80 20:32:00 Test Item Value Reference Range Interpretation Comments PTT (test code = PTT) 28.5 s 22.9-35.8 N [facility] CenterEakzhbkYBROTICOZC4832-44-52 20:32:00 Test Item Value Reference Range Interpretation Comments PT (test code = PT) 12.9 s 12.0-14.7 N [facility] CenterEegkiugNQKFSAXINZ2481-25-09 20:32:00 Test Item Value Reference Range Interpretation Comments INR (test code = INR) 0.95 0.85-1.17 N [facility]VsoptpqJOXXYLKHMK5361-11-81 20:32:00 Test Item Value Reference Range Interpretation Comments UA Urobilinogen (test code *NA*(11/26/2012 0.1-1.0 = UA Urobilinogen) 14:32:00) [facility] HospitalYxhufxiMGIHUUDPWQ0032-19-11 20:32:00 Test Item Value Reference Range Interpretation Comments UA Bacteria (test code Occasional /HPF = UA Bacteria) *NA*(11/26/2012 14:32:00) [facility] HospitalGlcwqqgAWHEGQYBIS3095-55-20 20:32:00 Test Item Value Reference Range Interpretation Comments UA RBC (test code = 1 See_Comment N [Automa ashanti message] The UA RBC) system which ge nerated this result transmit ashanti reference range : <=2. The reference range was not used to interpr et this result as carmen l/abnormal. [facility]anoHregvuaEIJPIAXWYL9994-42-65 20:32:00 Test Item Value Reference Range Interpretation Comments UA WBC (test code = 3 See_Comment N [Automa ashanti message] The UA WBC) system which ge nerated this result transmit ashanti reference range : <=5. The reference range was not used to interpr et this result as carmen l/abnormal. [facility]anoKwckdxpDLBJLQVQXV2385-80-23 20:32:00 Test Item Value Reference Range Interpretation Comments UA Sq Epi (test code = Many /LPF A UA Sq Epi) *ABN*(11/26/2012 14:32:00) [facility]anoEkvqzzqAUDABYSEQB3329-68-93 20:32:00 Test Item Value Reference Range Interpretation Comments Micro? (test code = Performed *NA*(11/26/2012 Micro?) 14:32:00) [facility]anoXdmeurlJQGQZTSQCY0172-25-09 20:32:00 Test Item Value Reference Range Interpretation Comments UA Mucus (test code = Few /LPF UA Mucus) *NA*(11/26/2012 14:32:00) [facility]anoRfgbyusPFYFLBSCHN9185-12-90 20:32:00 Test Item Value Reference Range Interpretation Comments UA Bili (test code = Negative *NA*(11/26/2012 UA Bili) 14:32:00) [facility]anoWakqujiOIXWIPQRMD8560-93-42 20:32:00 Test Item Value Reference Range Interpretation Comments UA Ketones (test code Negative mg/dL = UA Ketones) *NA*(11/26/2012 14:32:00) [facility]anoVxgowcwMROTMDVQND5087-20-99 20:32:00 Test Item Value Reference Range Interpretation Comments UA Protein (test code Negative mg/dL N = UA Protein) (11/26/2012 14:32:00) [facility]anoHrzvnbnWTSRXBEFHJ4369-23-72 20:32:00 Test Item Value Reference Range Interpretation Comments UA Leuk Est (test code Trace *ABN*(11/26/2012 A = UA Leuk Est) 14:32:00) [facility]anoFfhfyujYBWYKIGHLE8252-59-17 20:32:00 Test Item Value Reference Range Interpretation Comments UA Nitrite (test code Negative (11/26/2012 N = UA Nitrite) 14:32:00) [facility] HospitalGhxbievHAJEBZGGTO9418-84-07 20:32:00 Test Item Value Reference Range Interpretation Comments UA Blood (test code = Negative (11/26/2012 N UA Blood) 14:32:00) [facility] HospitalKegpczhKMIZLFCOAA5730-84-24 20:32:00 Test Item Value Reference Range Interpretation Comments UA Color (test code = Yellow *NA*(11/26/2012 UA Color) 14:32:00) [facility] HospitalUcqgoisISEIJCDTVY8075-81-42 20:32:00 Test Item Value Reference Range Interpretation Comments UA pH (test code = UA pH) 6.0 5.0-8.0 N [facility] HospitalHdozbyhTGEIVDMFNG1281-38-48 20:32:00 Test Item Value Reference Range Interpretation Comments UA Spec Grav (test code = UA Spec Grav) 1.016 N [facility] HospitalXnftgfrHLGPXFMSVI5206-61-97 20:32:00 Test Item Value Reference Range Interpretation Comments UA Turbidity (test code Slight A = UA Turbidity) *ABN*(11/26/2012 14:32:00) [facility] HospitalTujqucePOHCUYYBCL4651-39-12 20:32:00 Test Item Value Reference Range Interpretation Comments UA Glucose (test code Negative mg/dL = UA Glucose) *NA*(11/26/2012 14:32:00) [facility] CenterLccrwdjWNOFWJDIN2241-39-24 20:32:00 Test Item Value Reference Range Interpretation Comments A/G Ratio (test code = A/G Ratio) 0.9 0.7-1.6 N [facility] CenterWxefsraJENZLSOHX6054-15-59 20:32:00 Test Item Value Reference Range Interpretation Comments Globulin (test code = Globulin) 4.4 2.0-4.0 H [facility] CenterWqnfcykBROOGGEBN7337-36-77 20:32:00 Test Item Value Reference Range Interpretation Comments AGAP (test code = AGAP) 13.0 10.0-20.0 N [facility] CenterWhchkauYAXHYTEVT9518-53-67 20:32:00 Test Item Value Reference Range Interpretation Comments B/C Ratio (test code = B/C Ratio) 18 6-[address] [facility] HospitalYzghlcuRARIVYIBY8498-93-58 20:32:00 Test Item Value Reference Range Interpretation Comments AST (test code = AST) 24 See_Comment N [Auto mated message] The system which ge nerated this result transmit ashanti reference range : <=37. The reference range was not used to interpr et this result as carmen l/abnormal. [facility] CenterZynwalzDVMGPCGWN4074-89-11 20:32:00 Test Item Value Reference Range Interpretation Comments Bili Total (test code = Bili Total) 0.5 0.2-1.3 N [facility] CenterEblekckUYNECZIIW2306-18-81 20:32:00 Test Item Value Reference Range Interpretation Comments Alk Phos (test code = Alk Phos) 98 39-136 N [facility]QinpgmfGDREBHJWR9797-50-10 20:32:00 Test Item Value Reference Range Interpretation Comments ALT (test code = ALT) 37 See_Comment N [Auto mated message] The system which ge nerated this result transmit ashanti reference range : <=65. The reference range was not used to interpr et this result as carmen l/abnormal. [facility] CenterZrvlrfhUDRTQXVBY2114-98-70 20:32:00 Test Item Value Reference Range Interpretation Comments Total Protein (test code = Total 8.5 6.4-8.4 H Protein) [facility] CenterOkyxytqYFLYZUFRN0773-82-04 20:32:00 Test Item Value Reference Range Interpretation Comments eGFR (test code = eGFR) 128 [facility] CenterOccmuflAKNEAIMNW4842-94-33 20:32:00 Test Item Value Reference Range Interpretation Comments Albumin Lvl (test code = Albumin Lvl) 4.1 3.5-5.0 N [facility] CenterGpxuppzSCHWKSCJY6526-80-03 20:32:00 Test Item Value Reference Range Interpretation Comments Chloride Lvl (test code = Chloride Lvl) 100 95-109 N [facility] CenterDrygwzbVBPRVTYXX8119-32-54 20:32:00 Test Item Value Reference Range Interpretation Comments Potassium Lvl (test code = Potassium 4.0 3.5-5.1 N Lvl) [facility] CenterHxwlkpvLYMPABGNG6772-02-22 20:32:00 Test Item Value Reference Range Interpretation Comments CO2 (test code = CO2) 28 24-32 N [facility] CenterKuwurwhMZMXGYBYT0983-85-35 20:32:00 Test Item Value Reference Range Interpretation Comments Sodium Lvl (test code = Sodium Lvl) 137 135-145 N [facility] CenterHrfguuqAMKLCZZHP9417-13-65 20:32:00 Test Item Value Reference Range Interpretation Comments Calcium Lvl (test code = Calcium Lvl) 9.1 8.5-10.5 N [facility] CenterIlpddvbCOYMEZSGQ9200-34-92 20:32:00 Test Item Value Reference Range Interpretation Comments Creatinine Lvl (test code = Creatinine 0.5 0.5-1.4 N Lvl) [facility] CenterKtmtoufJBXELSKOS4116-72-71 20:32:00 Test Item Value Reference Range Interpretation Comments Glucose Lvl (test code = Glucose Lvl) 81 70-99 N [facility] CenterWzczaodJEQSKWRBG9947-59-26 20:32:00 Test Item Value Reference Range Interpretation Comments BUN (test code = BUN) 9 7-22 N [facility] CenterQfrzwfmBJYLRXGSV5426-40-64 20:32:00 Test Item Value Reference Range Interpretation Comments Vitamin D 1,25 (OH)2 Total (test code = 52 18-72 Vitamin D 1,25 (OH)2 Total) [facility] CenterHrzaykkYDQKZXINO4532-97-22 20:32:00 Test Item Value Reference Range Interpretation Comments Vitamin D2 1,25 (OH)2 (test code = no gt Vitamin D2 1,25 (OH)2) [facility] CenterYgkljzmPCABMVDHS2523-19-63 20:32:00 Test Item Value Reference Range Interpretation Comments Vitamin D3 1,25 (OH)2 (test code = 52 Vitamin D3 1,25 (OH)2) [facility] CenterBakbzvmJSDVJXQGXZ8386-21-43 20:32:00 Test Item Value Reference Range Interpretation Comments MPV (test code = MPV) 8.7 7.4-10.4 N [facility] CenterCahhtnxQFCHOFQUIT7512-39-11 20:32:00 Test Item Value Reference Range Interpretation Comments Hgb (test code = Hgb) 12.0 12.0-16.0 N [facility] CenterKxxlozlKRERUSSBKR9247-50-05 20:32:00 Test Item Value Reference Range Interpretation Comments RBC (test code = RBC) 4.51 4.20-5.40 N [facility] CenterLhmvrjoRBEBBCFOIC1128-79-34 20:32:00 Test Item Value Reference Range Interpretation Comments WBC (test code = WBC) 15.6 3.7-10.4 H [facility] CenterPuxpifuUAMBEIQYQJ9509-71-34 20:32:00 Test Item Value Reference Range Interpretation Comments Hct (test code = Hct) 37.0 36.0-48.0 N [facility] CenterVomuvdsEKGJAWDAMC3163-46-20 20:32:00 Test Item Value Reference Range Interpretation Comments MCV (test code = MCV) 82.0 81.0-99.0 N [facility] CenterEdoidreMNLIDTFQCB7725-07-81 20:32:00 Test Item Value Reference Range Interpretation Comments RDW (test code = RDW) 15.9 11.5-14.5 H [facility] CenterUaufwkyRJJXCGSDEP1214-74-31 20:32:00 Test Item Value Reference Range Interpretation Comments MCHC (test code = MCHC) 32.3 32.0-36.0 N [facility] CenterJrahqzlJMASTRHLPX5621-47-23 20:32:00 Test Item Value Reference Range Interpretation Comments MCH (test code = MCH) 26.5 pg 27.0-31.0 L [facility] CenterGeyfxokNROASACFQE4533-66-21 20:32:00 Test Item Value Reference Range Interpretation Comments Platelet (test code = Platelet) 371 133-450 N [facility] CenterKvwmbrxSPGPCWOTHN3454-45-98 20:32:00 Test Item Value Reference Range Interpretation Comments Polychrom (test code = Slight (11/26/2012 N Polychrom) 14:32:00) [facility] CenterEaksrgiVYBVWZJBNA1846-52-76 20:32:00 Test Item Value Reference Range Interpretation Comments Large Plt (test code = Slight *ABN*(11/26/2012 A Large Plt) 14:32:00) [facility] CenterDjmeodfOTOBMPOQQS7195-41-38 20:32:00 Test Item Value Reference Range Interpretation Comments Segs (test code = Segs) 73.0 45.0-75.0 N [facility] CenterMimnzyaAXTCVNFVJH8494-14-16 20:32:00 Test Item Value Reference Range Interpretation Comments Eosinophils # (test code 0.2 See_Comment N [A utomated message] The = Eosinophils #) system whic h generated this result tra nsmitted reference range : <=0.5. The reference r megan was not used to int erpret this result as normal/abnormal . [facility] CenterDlzogusGSJUTIXFDN3603-71-04 20:32:00 Test Item Value Reference Range Interpretation Comments Basophils # (test code 0.1 See_Comment N [Aut omated message] The = Basophils #) system which generated this result tra nsmitted reference range : <=0.2. The reference r megan was not used to int erpret this result as normal/abnormal . [facility] CenterRfthfjhRKMLLQIFLJ2039-00-00 20:32:00 Test Item Value Reference Range Interpretation Comments Lymphocytes (test code = Lymphocytes) 21.3 20.0-40.0 N [facility] CenterTxkbdwjIALDVHQWLQ7559-82-21 20:32:00 Test Item Value Reference Range Interpretation Comments Segs-Bands # (test code = Segs-Bands #) 11.4 1.5-8.1 H [facility] CenterPdmzbtzRSIDRTUYKZ8303-10-58 20:32:00 Test Item Value Reference Range Interpretation Comments Eosinophils (test code = 1.1 See_Comment N [A utomated message] The Eosinophils) system which ge nerated this result tra nsmitted reference range : <=4.0. The reference r megan was not used to int erpret this result as normal/abnormal . [facility] CenterDfjlkpbKAJTGVRITD4212-95-43 20:32:00 Test Item Value Reference Range Interpretation Comments Basophils (test code = 0.5 See_Comment N [Aut omated message] The Basophils) system which ge nerated this result tra nsmitted reference range : <=1.0. The reference r megan was not used to int erpret this result as normal/abnormal . [facility] CenterVjrzvctBUGOCOFXBD1389-05-51 20:32:00 Test Item Value Reference Range Interpretation Comments Monocytes (test code = Monocytes) 4.1 2.0-12.0 N [facility] CenterYgfdupxQZANBTMYKA4909-76-03 20:32:00 Test Item Value Reference Range Interpretation Comments Lymphocytes # (test code = Lymphocytes 3.3 1.0-5.5 N #) [facility] CenterRxkzyzvUBQINICXYG8199-22-13 20:32:00 Test Item Value Reference Range Interpretation Comments Monocytes # (test code 0.6 See_Comment N [Aut omated message] The = Monocytes #) system which generated this result tra nsmitted reference range : <=0.8. The reference r megan was not used to int erpret this result as normal/abnormal . [facility] CenterUjfkkxzHYTLILVWGZ9911-85-23 20:32:00 Test Item Value Reference Range Interpretation Comments PTT (test code = PTT) 28.5 s 22.9-35.8 N [facility] CenterDifcvdeCJVXYEPGUL0140-02-41 20:32:00 Test Item Value Reference Range Interpretation Comments PT (test code = PT) 12.9 s 12.0-14.7 N [facility] CenterCvdrtvpSZPZOZDFSW9809-30-79 20:32:00 Test Item Value Reference Range Interpretation Comments INR (test code = INR) 0.95 0.85-1.17 N [facility] HospitalKmymivgTSEWYTREIR7948-54-78 20:32:00 Test Item Value Reference Range Interpretation Comments UA Urobilinogen (test code *NA*(11/26/2012 0.1-1.0 = UA Urobilinogen) 14:32:00) [facility] HospitalSpevlqeGRXZIDOFRI8649-64-29 20:32:00 Test Item Value Reference Range Interpretation Comments UA Bacteria (test code Occasional /HPF = UA Bacteria) *NA*(11/26/2012 14:32:00) [facility] HospitalBgwnfvsSNYEVVXZUC9557-05-18 20:32:00 Test Item Value Reference Range Interpretation Comments UA RBC (test code = 1 See_Comment N [Automa ashanti message] The UA RBC) system which ge nerated this result transmit ashanti reference range : <=2. The reference range was not used to interpr et this result as carmen l/abnormal. [facility] HospitalRmqhzcoAOSZOIWGWG7111-67-97 20:32:00 Test Item Value Reference Range Interpretation Comments UA WBC (test code = 3 See_Comment N [Automa ashanti message] The UA WBC) system which ge nerated this result transmit ashanti reference range : <=5. The reference range was not used to interpr et this result as carmen l/abnormal. [facility] HospitalQnfydgeHYPKJGUHDN9718-82-63 20:32:00 Test Item Value Reference Range Interpretation Comments UA Sq Epi (test code = Many /LPF A UA Sq Epi) *ABN*(11/26/2012 14:32:00) [facility] HospitalViyxmaoKRRQXECAYN0377-11-14 20:32:00 Test Item Value Reference Range Interpretation Comments Micro? (test code = Performed *NA*(11/26/2012 Micro?) 14:32:00) [facility] HospitalTowfgcrSIMDUWWDHR3785-46-33 20:32:00 Test Item Value Reference Range Interpretation Comments UA Mucus (test code = Few /LPF UA Mucus) *NA*(11/26/2012 14:32:00) [facility]anoIlyiqytBARGVEQXNH0196-06-95 20:32:00 Test Item Value Reference Range Interpretation Comments UA Bili (test code = Negative *NA*(11/26/2012 UA Bili) 14:32:00) [facility]anoLjnbsbvDJJYZBRMLJ0084-02-00 20:32:00 Test Item Value Reference Range Interpretation Comments UA Ketones (test code Negative mg/dL = UA Ketones) *NA*(11/26/2012 14:32:00) [facility]anoZmncaiySNGLPHRTXZ5812-80-32 20:32:00 Test Item Value Reference Range Interpretation Comments UA Protein (test code Negative mg/dL N = UA Protein) (11/26/2012 14:32:00) [facility]anoGrflitiEQQTHZJJOP7693-48-78 20:32:00 Test Item Value Reference Range Interpretation Comments UA Leuk Est (test code Trace *ABN*(11/26/2012 A = UA Leuk Est) 14:32:00) [facility]anoFxauqqhVPJZHAHRVN7288-88-51 20:32:00 Test Item Value Reference Range Interpretation Comments UA Nitrite (test code Negative (11/26/2012 N = UA Nitrite) 14:32:00) [facility]anoWgaozomQSEQDTGXOW6233-15-25 20:32:00 Test Item Value Reference Range Interpretation Comments UA Blood (test code = Negative (11/26/2012 N UA Blood) 14:32:00) [facility]anoHjvlelwXCTJXVSSBT9215-78-59 20:32:00 Test Item Value Reference Range Interpretation Comments UA Color (test code = Yellow *NA*(11/26/2012 UA Color) 14:32:00) [facility]anoUvbopkzFIHBHHJPKO6699-84-13 20:32:00 Test Item Value Reference Range Interpretation Comments UA pH (test code = UA pH) 6.0 5.0-8.0 N [facility]ZkzbibeAXVMFCMRDQ2010[facility] 20:32:00 Test Item Value Reference Range Interpretation Comments UA Spec Grav (test code = UA Spec Grav) 1.016 N [facility]anoSedlkoiDWSEJMPXAU4932-27-74 20:32:00 Test Item Value Reference Range Interpretation Comments UA Turbidity (test code Slight A = UA Turbidity) *ABN*(11/26/2012 14:32:00) [facility]NrggljcBSCVXIIQUM4414-49-25 20:32:00 Test Item Value Reference Range Interpretation Comments UA Glucose (test code Negative mg/dL = UA Glucose) *NA*(11/26/2012 14:32:00) [facility]LlfwrbfXDWRUHBFC1630-52-35 20:32:00 Test Item Value Reference Range Interpretation Comments A/G Ratio (test code = A/G Ratio) 0.9 0.7-1.6 N [facility] CenterIlyybvxNDSZRCEUF6456-44-71 20:32:00 Test Item Value Reference Range Interpretation Comments Globulin (test code = Globulin) 4.4 2.0-4.0 H [facility] CenterSmjlvjyDQGTYCXER8697-12-30 20:32:00 Test Item Value Reference Range Interpretation Comments AGAP (test code = AGAP) 13.0 10.0-20.0 N [facility] CenterOmkvzkpLNDVMUQWU5124-78-51 20:32:00 Test Item Value Reference Range Interpretation Comments B/C Ratio (test code = B/C Ratio) 18 6-25 N [facility] CenterKgafizyDREXIDSAL0442-50-97 20:32:00 Test Item Value Reference Range Interpretation Comments AST (test code = AST) 24 See_Comment N [Auto mated message] The system which ge nerated this result transmit ashanti reference range : <=37. The reference range was not used to interpr et this result as carmen l/abnormal. [facility] CenterApngzlzPVNFJQFCO1938-27-41 20:32:00 Test Item Value Reference Range Interpretation Comments Bili Total (test code = Bili Total) 0.5 0.2-1.3 N [facility] CenterZbvrgdmRFDKAKDXO9423-41-36 20:32:00 Test Item Value Reference Range Interpretation Comments Alk Phos (test code = Alk Phos) 98 39-136 N [facility] CenterQtxransYAVBLROLD2506-48-30 20:32:00 Test Item Value Reference Range Interpretation Comments ALT (test code = ALT) 37 See_Comment N [Auto mated message] The system which ge nerated this result transmit ashanti reference range : <=65. The reference range was not used to interpr et this result as carmen l/abnormal. [facility] CenterXdueyoiGEAZBHSBH4182-73-26 20:32:00 Test Item Value Reference Range Interpretation Comments Total Protein (test code = Total 8.5 6.4-8.4 H Protein) [facility] CenterNddtmcxNDBVPTBYW8562-31-24 20:32:00 Test Item Value Reference Range Interpretation Comments eGFR (test code = eGFR) 128 [facility] CenterYqxjzuyFBVOYUVPA8236-53-27 20:32:00 Test Item Value Reference Range Interpretation Comments Albumin Lvl (test code = Albumin Lvl) 4.1 3.5-5.0 N [facility] CenterTexuyeeYRRHJXCUO2098-75-40 20:32:00 Test Item Value Reference Range Interpretation Comments Chloride Lvl (test code = Chloride Lvl) 100 95-109 N [facility] CenterNgmttldWGSNRRJUR2380-82-87 20:32:00 Test Item Value Reference Range Interpretation Comments Potassium Lvl (test code = Potassium 4.0 3.5-5.1 N Lvl) [facility] CenterAjasabpFHEWKMWPB7995-20-66 20:32:00 Test Item Value Reference Range Interpretation Comments CO2 (test code = CO2) 28 24-32 N [facility] CenterEojoobtKVAEGLNDY5470-21-18 20:32:00 Test Item Value Reference Range Interpretation Comments Sodium Lvl (test code = Sodium Lvl) 137 135-145 N [facility] CenterWxexoluYUIVGMGTP7274-28-02 20:32:00 Test Item Value Reference Range Interpretation Comments Calcium Lvl (test code = Calcium Lvl) 9.1 8.5-10.5 N [facility] CenterPyjygabVAHMMLZIL9255-09-06 20:32:00 Test Item Value Reference Range Interpretation Comments Creatinine Lvl (test code = Creatinine 0.5 0.5-1.4 N Lvl) [facility] CenterSuudmeuJWFCKXNQC2179-14-34 20:32:00 Test Item Value Reference Range Interpretation Comments Glucose Lvl (test code = Glucose Lvl) 81 70-99 N [facility] CenterLhcdawbTWOXSMDPO5447-96-75 20:32:00 Test Item Value Reference Range Interpretation Comments BUN (test code = BUN) 9 7-22 N [facility] CenterXtkoxdiRCURLJNAJ1134-89-72 20:32:00 Test Item Value Reference Range Interpretation Comments Vitamin D 1,25 (OH)2 Total (test code = 52 18-72 Vitamin D 1,25 (OH)2 Total) [facility] CenterBjgyhbiNGQGYIHES1398-63-20 20:32:00 Test Item Value Reference Range Interpretation Comments Vitamin D2 1,25 (OH)2 (test code = no gt Vitamin D2 1,25 (OH)2) [facility] CenterRficefkYEEUYBIHS2207-61-52 20:32:00 Test Item Value Reference Range Interpretation Comments Vitamin D3 1,25 (OH)2 (test code = 52 Vitamin D3 1,25 (OH)2) [facility] CenterRttplqbRTYKZDHLUE5345-83-80 20:32:00 Test Item Value Reference Range Interpretation Comments MPV (test code = MPV) 8.7 7.4-10.4 N [facility] CenterBfgawfeRQTFHQYQHI7256-00-77 20:32:00 Test Item Value Reference Range Interpretation Comments Hgb (test code = Hgb) 12.0 12.0-16.0 N [facility] CenterZslhbzjJQACTCTKGV0233-11-45 20:32:00 Test Item Value Reference Range Interpretation Comments RBC (test code = RBC) 4.51 4.20-5.40 N [facility] CenterGnoedzrDBVVPTTLBT1323-24-56 20:32:00 Test Item Value Reference Range Interpretation Comments WBC (test code = WBC) 15.6 3.7-10.4 H [facility] CenterJdttgpgRLKLTXNAPX6232-74-19 20:32:00 Test Item Value Reference Range Interpretation Comments Hct (test code = Hct) 37.0 36.0-48.0 N [facility] CenterBqwttdqMWJEONZOZV2153-00-92 20:32:00 Test Item Value Reference Range Interpretation Comments MCV (test code = MCV) 82.0 81.0-99.0 N [facility] CenterOvlsvhhVRZJVXOFKH0541-18-06 20:32:00 Test Item Value Reference Range Interpretation Comments RDW (test code = RDW) 15.9 11.5-14.5 H [facility] CenterAxendrkVMMMFMAFNN1112-10-09 20:32:00 Test Item Value Reference Range Interpretation Comments MCHC (test code = MCHC) 32.3 32.0-36.0 N [facility] CenterCjlqjsmNBGYEZGUFE2767-45-32 20:32:00 Test Item Value Reference Range Interpretation Comments MCH (test code = MCH) 26.5 pg 27.0-31.0 L [facility] CenterHhcthyhXWBMCEISBS3024-72-13 20:32:00 Test Item Value Reference Range Interpretation Comments Platelet (test code = Platelet) 371 133-450 N [facility] CenterRusubovBHTEFXYKYP2320-03-50 20:32:00 Test Item Value Reference Range Interpretation Comments Polychrom (test code = Slight (11/26/2012 N Polychrom) 14:32:00) [facility] CenterEwyrrboACJXXCGNPU2726-61-92 20:32:00 Test Item Value Reference Range Interpretation Comments Large Plt (test code = Slight *ABN*(11/26/2012 A Large Plt) 14:32:00) [facility] CenterZdvmnbgSSILQMEXMR5467-23-22 20:32:00 Test Item Value Reference Range Interpretation Comments Segs (test code = Segs) 73.0 45.0-75.0 N [facility] CenterTpdujowPZFYQCGONF7070-65-70 20:32:00 Test Item Value Reference Range Interpretation Comments Eosinophils # (test code 0.2 See_Comment N [A utomated message] The = Eosinophils #) system whic h generated this result tra nsmitted reference range : <=0.5. The reference r megan was not used to int erpret this result as normal/abnormal . [facility] CenterMidabloRZBKSSGDNP7145-73-43 20:32:00 Test Item Value Reference Range Interpretation Comments Basophils # (test code 0.1 See_Comment N [Aut omated message] The = Basophils #) system which generated this result tra nsmitted reference range : <=0.2. The reference r megan was not used to int erpret this result as normal/abnormal . [facility] CenterErwmmipMRHROVPQSG1116-63-27 20:32:00 Test Item Value Reference Range Interpretation Comments Lymphocytes (test code = Lymphocytes) 21.3 20.0-40.0 N [facility] CenterXlyxemvZWFMHOYCTO4470-87-82 20:32:00 Test Item Value Reference Range Interpretation Comments Segs-Bands # (test code = Segs-Bands #) 11.4 1.5-8.1 H [facility] CenterHudukstFBJWPKJZLJ5783-41-69 20:32:00 Test Item Value Reference Range Interpretation Comments Eosinophils (test code = 1.1 See_Comment N [A utomated message] The Eosinophils) system which ge nerated this result tra nsmitted reference range : <=4.0. The reference r megan was not used to int erpret this result as normal/abnormal . [facility] CenterWrdoizpKRGHMRLUES7180-89-82 20:32:00 Test Item Value Reference Range Interpretation Comments Basophils (test code = 0.5 See_Comment N [Aut omated message] The Basophils) system which ge nerated this result tra nsmitted reference range : <=1.0. The reference r megan was not used to int erpret this result as normal/abnormal . [facility] CenterBkhkbuzPFVPMTSBEX2135-56-73 20:32:00 Test Item Value Reference Range Interpretation Comments Monocytes (test code = Monocytes) 4.1 2.0-12.0 N [facility] CenterBupwfnjBSAADMKIXG1474-49-78 20:32:00 Test Item Value Reference Range Interpretation Comments Lymphocytes # (test code = Lymphocytes 3.3 1.0-5.5 N #) [facility] CenterIbsjhncUJCCBTJNKW7385-80-88 20:32:00 Test Item Value Reference Range Interpretation Comments Monocytes # (test code 0.6 See_Comment N [Aut omated message] The = Monocytes #) system which generated this result tra nsmitted reference range : <=0.8. The reference r megan was not used to int erpret this result as normal/abnormal . [facility] CenterXqjvxceTUEGWOCRKR8835-82-12 20:32:00 Test Item Value Reference Range Interpretation Comments PTT (test code = PTT) 28.5 s 22.9-35.8 N [facility] CenterYzfetaxVJGJLFOUJR3540-95-49 20:32:00 Test Item Value Reference Range Interpretation Comments PT (test code = PT) 12.9 s 12.0-14.7 N [facility] CenterIhcuexoIRSRBAPNGB1433-86-73 20:32:00 Test Item Value Reference Range Interpretation Comments INR (test code = INR) 0.95 0.85-1.17 N [facility]IwplasvXDMKFQGUYH5148-57-09 20:32:00 Test Item Value Reference Range Interpretation Comments UA Urobilinogen (test code *NA*(11/26/2012 0.1-1.0 = UA Urobilinogen) 14:32:00) [facility] HospitalLxafypmTGGPGVZMYL7743-13-07 20:32:00 Test Item Value Reference Range Interpretation Comments UA Bacteria (test code Occasional /HPF = UA Bacteria) *NA*(11/26/2012 14:32:00) [facility] HospitalPjdplceWIIVVAZTEN4548-69-03 20:32:00 Test Item Value Reference Range Interpretation Comments UA RBC (test code = 1 See_Comment N [Automa ahsanti message] The UA RBC) system which ge nerated this result transmit ashanti reference range : <=2. The reference range was not used to interpr et this result as acrmen l/abnormal. [facility]anoKemttsmMJNVEMBZJN3749-03-82 20:32:00 Test Item Value Reference Range Interpretation Comments UA WBC (test code = 3 See_Comment N [Automa ashanti message] The UA WBC) system which ge nerated this result transmit ashanti reference range : <=5. The reference range was not used to interpr et this result as carmen l/abnormal. [facility]anoUpyoenoLQQQZTIZXW6820-20-07 20:32:00 Test Item Value Reference Range Interpretation Comments UA Sq Epi (test code = Many /LPF A UA Sq Epi) *ABN*(11/26/2012 14:32:00) [facility]anoZiuljlbQPMHBLOPSQ2162-97-11 20:32:00 Test Item Value Reference Range Interpretation Comments Micro? (test code = Performed *NA*(11/26/2012 Micro?) 14:32:00) [facility] HospitalLypunwcLUAXTTFOHY4978-53-09 20:32:00 Test Item Value Reference Range Interpretation Comments UA Mucus (test code = Few /LPF UA Mucus) *NA*(11/26/2012 14:32:00) [facility]anoAscyxezKEQYAKSUSD7262-59-63 20:32:00 Test Item Value Reference Range Interpretation Comments UA Bili (test code = Negative *NA*(11/26/2012 UA Bili) 14:32:00) [facility]anoKcglgugMDNEAXQEHJ6146-41-73 20:32:00 Test Item Value Reference Range Interpretation Comments UA Ketones (test code Negative mg/dL = UA Ketones) *NA*(11/26/2012 14:32:00) [facility]anoJmlohrcURHKPKRJXC4518-90-94 20:32:00 Test Item Value Reference Range Interpretation Comments UA Protein (test code Negative mg/dL N = UA Protein) (11/26/2012 14:32:00) [facility]anoQykzukfULVZRXCBWR4522-59-88 20:32:00 Test Item Value Reference Range Interpretation Comments UA Leuk Est (test code Trace *ABN*(11/26/2012 A = UA Leuk Est) 14:32:00) [facility]anoLnntetlOVBYBWRFGW0033-34-30 20:32:00 Test Item Value Reference Range Interpretation Comments UA Nitrite (test code Negative (11/26/2012 N = UA Nitrite) 14:32:00) [facility]anoNpizlwmZIFAKYLNFN1909-81-54 20:32:00 Test Item Value Reference Range Interpretation Comments UA Blood (test code = Negative (11/26/2012 N UA Blood) 14:32:00) [facility] HospitalXtqncgrNYWYDKZQWW4689-58-00 20:32:00 Test Item Value Reference Range Interpretation Comments UA Color (test code = Yellow *NA*(11/26/2012 UA Color) 14:32:00) [facility] HospitalMzphayvDHIKSLSLMN3506-93-37 20:32:00 Test Item Value Reference Range Interpretation Comments UA pH (test code = UA pH) 6.0 5.0-8.0 N [facility] HospitalAjeirfvRVTWEDWMAS2181-84-44 20:32:00 Test Item Value Reference Range Interpretation Comments UA Spec Grav (test code = UA Spec Grav) 1.016 N [facility] HospitalLgbzuvbZYBNGOLBYA7472-46-66 20:32:00 Test Item Value Reference Range Interpretation Comments UA Turbidity (test code Slight A = UA Turbidity) *ABN*(11/26/2012 14:32:00) [facility] HospitalTumorkwXRNWOLVYJL3225-34-50 20:32:00 Test Item Value Reference Range Interpretation Comments UA Glucose (test code Negative mg/dL = UA Glucose) *NA*(11/26/2012 14:32:00) [facility] CenterKgvednuMDCXLGWQR1574-65-90 20:32:00 Test Item Value Reference Range Interpretation Comments A/G Ratio (test code = A/G Ratio) 0.9 0.7-1.6 N [facility] CenterLxllysxJPZOPDEXL8284-46-34 20:32:00 Test Item Value Reference Range Interpretation Comments Globulin (test code = Globulin) 4.4 2.0-4.0 H [facility] CenterFhxmvfkBZKGFSUGT8168-35-77 20:32:00 Test Item Value Reference Range Interpretation Comments AGAP (test code = AGAP) 13.0 10.0-20.0 N [facility] CenterNsrfbtgCFYPHCUUI7879-15-71 20:32:00 Test Item Value Reference Range Interpretation Comments B/C Ratio (test code = B/C Ratio) 18 6-25 N [facility] CenterZzxrylkMHFCILPVT4094-82-23 20:32:00 Test Item Value Reference Range Interpretation Comments AST (test code = AST) 24 See_Comment N [Auto mated message] The system which ge nerated this result transmit ashanti reference range : <=37. The reference range was not used to interpr et this result as carmen l/abnormal. [facility] CenterTjefrxxYFPFSBFFG4086-85-32 20:32:00 Test Item Value Reference Range Interpretation Comments Bili Total (test code = Bili Total) 0.5 0.2-1.3 N [facility] CenterItajpnuEKYMNIYWZ5856-13-63 20:32:00 Test Item Value Reference Range Interpretation Comments Alk Phos (test code = Alk Phos) 98 39-136 N [facility] CenterRwejqgoUVHFSMAMH9156-68-86 20:32:00 Test Item Value Reference Range Interpretation Comments ALT (test code = ALT) 37 See_Comment N [Auto mated message] The system which ge nerated this result transmit ashanti reference range : <=65. The reference range was not used to interpr et this result as carmen l/abnormal. [facility] CenterGwyfkelJTVHIBDOZ9575-05-03 20:32:00 Test Item Value Reference Range Interpretation Comments Total Protein (test code = Total 8.5 6.4-8.4 H Protein) [facility] CenterGovoqyoUGWAXJNSF3497-27-82 20:32:00 Test Item Value Reference Range Interpretation Comments eGFR (test code = eGFR) 128 [facility] CenterMrmsaicXNRMSJIPF1790-13-59 20:32:00 Test Item Value Reference Range Interpretation Comments Albumin Lvl (test code = Albumin Lvl) 4.1 3.5-5.0 N [facility] CenterLeivkxtYOOACCWKC9821-15-71 20:32:00 Test Item Value Reference Range Interpretation Comments Chloride Lvl (test code = Chloride Lvl) 100 95-109 N [facility] CenterBdjwalsOGDPKNWYR6977-06-47 20:32:00 Test Item Value Reference Range Interpretation Comments Potassium Lvl (test code = Potassium 4.0 3.5-5.1 N Lvl) [facility] CenterNebzgzlCMRPVLGMJ6349-89-48 20:32:00 Test Item Value Reference Range Interpretation Comments CO2 (test code = CO2) 28 24-32 N [facility] CenterXmpanlvIFJJKSQOC1217-85-52 20:32:00 Test Item Value Reference Range Interpretation Comments Sodium Lvl (test code = Sodium Lvl) 137 135-145 N [facility] CenterLxmgyqnELLPERLHJ4039-52-37 20:32:00 Test Item Value Reference Range Interpretation Comments Calcium Lvl (test code = Calcium Lvl) 9.1 8.5-10.5 N [facility] CenterWyljcgjULSDXGUAL9399-23-50 20:32:00 Test Item Value Reference Range Interpretation Comments Creatinine Lvl (test code = Creatinine 0.5 0.5-1.4 N Lvl) [facility] CenterXtuyqkhCYTTPARGQ6455-76-30 20:32:00 Test Item Value Reference Range Interpretation Comments Glucose Lvl (test code = Glucose Lvl) 81 70-99 N [facility] CenterQpwcpvzRNJQCEOOR6933-67-59 20:32:00 Test Item Value Reference Range Interpretation Comments BUN (test code = BUN) 9 7-22 N [facility] CenterTtxompwRBGDYYZPS1863-90-40 20:32:00 Test Item Value Reference Range Interpretation Comments Vitamin D 1,25 (OH)2 Total (test code = 52 18-72 Vitamin D 1,25 (OH)2 Total) [facility] CenterLjevdypRHLCPIDDX9565-15-89 20:32:00 Test Item Value Reference Range Interpretation Comments Vitamin D2 1,25 (OH)2 (test code = no gt Vitamin D2 1,25 (OH)2) [facility] CenterDlxzjfuRYMSIFDVR1887-37-24 20:32:00 Test Item Value Reference Range Interpretation Comments Vitamin D3 1,25 (OH)2 (test code = 52 Vitamin D3 1,25 (OH)2) [facility] CenterNircvayAOJDKIRSBR0883-42-27 20:32:00 Test Item Value Reference Range Interpretation Comments MPV (test code = MPV) 8.7 7.4-10.4 N [facility] CenterGkulukeNUPFJNBUWJ8451-28-68 20:32:00 Test Item Value Reference Range Interpretation Comments Hgb (test code = Hgb) 12.0 12.0-16.0 N [facility] CenterAisfazuVGBEEVFVDM8978-17-05 20:32:00 Test Item Value Reference Range Interpretation Comments RBC (test code = RBC) 4.51 4.20-5.40 N [facility] CenterIbexevoMWWAMLXZPH1550-80-30 20:32:00 Test Item Value Reference Range Interpretation Comments WBC (test code = WBC) 15.6 3.7-10.4 H [facility] CenterDizhczpREATRFCYWT7157-06-48 20:32:00 Test Item Value Reference Range Interpretation Comments Hct (test code = Hct) 37.0 36.0-48.0 N [facility] CenterVuvlbwgRQVUNNWJLE2682-14-11 20:32:00 Test Item Value Reference Range Interpretation Comments MCV (test code = MCV) 82.0 81.0-99.0 N [facility] CenterAuayuasNDLAIHHNIH3874-92-34 20:32:00 Test Item Value Reference Range Interpretation Comments RDW (test code = RDW) 15.9 11.5-14.5 H [facility] CenterRbvoabcXMCVOZPGFF0733-27-42 20:32:00 Test Item Value Reference Range Interpretation Comments MCHC (test code = MCHC) 32.3 32.0-36.0 N [facility] CenterZznplirIKJMMGIRTK0330-19-88 20:32:00 Test Item Value Reference Range Interpretation Comments MCH (test code = MCH) 26.5 pg 27.0-31.0 L [facility] CenterFpivhzgGWMNBUEVDK2203-41-95 20:32:00 Test Item Value Reference Range Interpretation Comments Platelet (test code = Platelet) 371 133-450 N [facility] CenterHikfiwkWRPTSYCRND0077-34-76 20:32:00 Test Item Value Reference Range Interpretation Comments Polychrom (test code = Slight (11/26/2012 N Polychrom) 14:32:00) [facility] CenterMkevuekSRHFMORNWX3758-41-29 20:32:00 Test Item Value Reference Range Interpretation Comments Large Plt (test code = Slight *ABN*(11/26/2012 A Large Plt) 14:32:00) [facility] CenterZxtkcgfKPLVKPRBOQ7287-01-15 20:32:00 Test Item Value Reference Range Interpretation Comments Segs (test code = Segs) 73.0 45.0-75.0 N [facility] CenterBzvxnhxNWBVWPNYQW3080-41-56 20:32:00 Test Item Value Reference Range Interpretation Comments Eosinophils # (test code 0.2 See_Comment N [A utomated message] The = Eosinophils #) system whic h generated this result tra nsmitted reference range : <=0.5. The reference r megan was not used to int erpret this result as normal/abnormal . [facility] CenterJtapomuFIRZNDHQKK1471-17-98 20:32:00 Test Item Value Reference Range Interpretation Comments Basophils # (test code 0.1 See_Comment N [Aut omated message] The = Basophils #) system which generated this result tra nsmitted reference range : <=0.2. The reference r megan was not used to int erpret this result as normal/abnormal . [facility] CenterUjcpnuaMBSWUVTIXY5750-88-98 20:32:00 Test Item Value Reference Range Interpretation Comments Lymphocytes (test code = Lymphocytes) 21.3 20.0-40.0 N [facility] CenterXlmhbvoRAIUIPURLL3732-11-82 20:32:00 Test Item Value Reference Range Interpretation Comments Segs-Bands # (test code = Segs-Bands #) 11.4 1.5-8.1 H [facility] CenterSexrpdbFJPFKEMOMK0302-02-91 20:32:00 Test Item Value Reference Range Interpretation Comments Eosinophils (test code = 1.1 See_Comment N [A utomated message] The Eosinophils) system which ge nerated this result tra nsmitted reference range : <=4.0. The reference r megan was not used to int erpret this result as normal/abnormal . [facility] CenterOloijdhDSTINYSHDN9327-09-36 20:32:00 Test Item Value Reference Range Interpretation Comments Basophils (test code = 0.5 See_Comment N [Aut omated message] The Basophils) system which ge nerated this result tra nsmitted reference range : <=1.0. The reference r megan was not used to int erpret this result as normal/abnormal . [facility] CenterAzsgezyAJGQKCKODM7570-43-00 20:32:00 Test Item Value Reference Range Interpretation Comments Monocytes (test code = Monocytes) 4.1 2.0-12.0 N [facility] CenterMzvusdoWCYNYNMGTW6279-19-40 20:32:00 Test Item Value Reference Range Interpretation Comments Lymphocytes # (test code = Lymphocytes 3.3 1.0-5.5 N #) [facility] CenterYoewnocZBQHYOJCGY8068-81-69 20:32:00 Test Item Value Reference Range Interpretation Comments Monocytes # (test code 0.6 See_Comment N [Aut omated message] The = Monocytes #) system which generated this result tra nsmitted reference range : <=0.8. The reference r megan was not used to int erpret this result as normal/abnormal . [facility] CenterXldtuwiQLUZOCBTER4365-33-07 20:32:00 Test Item Value Reference Range Interpretation Comments PTT (test code = PTT) 28.5 s 22.9-35.8 N [facility] CenterPhlalsyECVDNTDRGH0416-70-92 20:32:00 Test Item Value Reference Range Interpretation Comments PT (test code = PT) 12.9 s 12.0-14.7 N [facility] CenterMgygwwwMTRKTLFRTZ0608-59-25 20:32:00 Test Item Value Reference Range Interpretation Comments INR (test code = INR) 0.95 0.85-1.17 N [facility]PthojfmOKTMLRHQZD5953-92-91 20:32:00 Test Item Value Reference Range Interpretation Comments UA Urobilinogen (test code *NA*(11/26/2012 0.1-1.0 = UA Urobilinogen) 14:32:00) [facility]TrtaajbOJXQOVCVAV9138-40-10 20:32:00 Test Item Value Reference Range Interpretation Comments UA Bacteria (test code Occasional /HPF = UA Bacteria) *NA*(11/26/2012 14:32:00) [facility]anoGyxhyzkXAUPDZIWLS1437-09-41 20:32:00 Test Item Value Reference Range Interpretation Comments UA RBC (test code = 1 See_Comment N [Automa ashanti message] The UA RBC) system which ge nerated this result transmit ashanti reference range : <=2. The reference range was not used to interpr et this result as carmen l/abnormal. [facility]anoUyrovjiICQMVUICTQ5814-56-90 20:32:00 Test Item Value Reference Range Interpretation Comments UA WBC (test code = 3 See_Comment N [Automa ashanti message] The UA WBC) system which ge nerated this result transmit ashanti reference range : <=5. The reference range was not used to interpr et this result as carmen l/abnormal. [facility]anoBoblganANXJSDDHBX4226-72-39 20:32:00 Test Item Value Reference Range Interpretation Comments UA Sq Epi (test code = Many /LPF A UA Sq Epi) *ABN*(11/26/2012 14:32:00) [facility]anoHgcspuzMLXFKTDIYK6379-41-74 20:32:00 Test Item Value Reference Range Interpretation Comments Micro? (test code = Performed *NA*(11/26/2012 Micro?) 14:32:00) [facility]ewHOBCITZDMM7208-35-97 20:32:00 Test Item Value Reference Range Interpretation Comments UA Mucus (test code = Few /LPF UA Mucus) *NA*(11/26/2012 14:32:00) [facility]VbwofblKQCSSGFPMK3208-58-06 20:32:00 Test Item Value Reference Range Interpretation Comments UA Bili (test code = Negative *NA*(11/26/2012 UA Bili) 14:32:00) [facility]donfltVDAETSZIEP4687-84-36 20:32:00 Test Item Value Reference Range Interpretation Comments UA Ketones (test code Negative mg/dL = UA Ketones) *NA*(11/26/2012 14:32:00) [facility] HospitalHrkqbrfKMBLNZPCHM6926-38-01 20:32:00 Test Item Value Reference Range Interpretation Comments UA Protein (test code Negative mg/dL N = UA Protein) (11/26/2012 14:32:00) [facility] HospitalWjnekgdOSIHVDDBDH4904-35-69 20:32:00 Test Item Value Reference Range Interpretation Comments UA Leuk Est (test code Trace *ABN*(11/26/2012 A = UA Leuk Est) 14:32:00) [facility] HospitalBkxgltuQBNDYULOBD1307-17-79 20:32:00 Test Item Value Reference Range Interpretation Comments UA Nitrite (test code Negative (11/26/2012 N = UA Nitrite) 14:32:00) [facility] HospitalQwfxehuZRHLLSEJTN4176-13-07 20:32:00 Test Item Value Reference Range Interpretation Comments UA Blood (test code = Negative (11/26/2012 N UA Blood) 14:32:00) [facility] HospitalEzjnifbTHMCCQJSKS3974-31-19 20:32:00 Test Item Value Reference Range Interpretation Comments UA Color (test code = Yellow *NA*(11/26/2012 UA Color) 14:32:00) [facility] HospitalDbdhbzdNIBXBGIRFR1330-17-63 20:32:00 Test Item Value Reference Range Interpretation Comments UA pH (test code = UA pH) 6.0 5.0-8.0 N [facility] HospitalYnjzxhsGPRUOUFHCN4736-88-03 20:32:00 Test Item Value Reference Range Interpretation Comments UA Spec Grav (test code = UA Spec Grav) 1.016 N [facility]MtatuvhLINGFYQRAH3313-09-04 20:32:00 Test Item Value Reference Range Interpretation Comments UA Turbidity (test code Slight A = UA Turbidity) *ABN*(11/26/2012 14:32:00) [facility] HospitalIvyjcsdDFZYQQYDTD6770-90-59 20:32:00 Test Item Value Reference Range Interpretation Comments UA Glucose (test code Negative mg/dL = UA Glucose) *NA*(11/26/2012 14:32:00) [facility]AghhvglXBCLIHHDB7877-66-03 20:32:00 Test Item Value Reference Range Interpretation Comments A/G Ratio (test code = A/G Ratio) 0.9 0.7-1.6 N [facility] CenterRetfzxnKNJKLEBRB8683-21-51 20:32:00 Test Item Value Reference Range Interpretation Comments Globulin (test code = Globulin) 4.4 2.0-4.0 H [facility] CenterRaqveamOEMSWBARU3655-74-61 20:32:00 Test Item Value Reference Range Interpretation Comments AGAP (test code = AGAP) 13.0 10.0-20.0 N [facility] CenterVrbpsebBWWBFSLKL2169-04-01 20:32:00 Test Item Value Reference Range Interpretation Comments B/C Ratio (test code = B/C Ratio) 18 6-25 N [facility] CenterPnwpczkQLEVTKTSM3737-46-17 20:32:00 Test Item Value Reference Range Interpretation Comments AST (test code = AST) 24 See_Comment N [Auto mated message] The system which ge nerated this result transmit ashanti reference range : <=37. The reference range was not used to interpr et this result as carmen l/abnormal. [facility] CenterKdbiihmMMFJTGIRS1478-31-40 20:32:00 Test Item Value Reference Range Interpretation Comments Bili Total (test code = Bili Total) 0.5 0.2-1.3 N [facility] CenterStzpldjONLOZUPCK2882-45-16 20:32:00 Test Item Value Reference Range Interpretation Comments Alk Phos (test code = Alk Phos) 98 39-136 N [facility] CenterAfbahwgNPJUHQQML6712-64-65 20:32:00 Test Item Value Reference Range Interpretation Comments ALT (test code = ALT) 37 See_Comment N [Auto mated message] The system which ge nerated this result transmit ashanti reference range : <=65. The reference range was not used to interpr et this result as carmen l/abnormal. [facility] CenterZvkujzbBCXMJDHSH8765-57-95 20:32:00 Test Item Value Reference Range Interpretation Comments Total Protein (test code = Total 8.5 6.4-8.4 H Protein) [facility] CenterDfbmuoeQVOJQRBZE0909-07-53 20:32:00 Test Item Value Reference Range Interpretation Comments eGFR (test code = eGFR) 128 [facility] CenterNguoxdaMJSXHDUQT6294-86-66 20:32:00 Test Item Value Reference Range Interpretation Comments Albumin Lvl (test code = Albumin Lvl) 4.1 3.5-5.0 N [facility] CenterGqwadfgUMOJPUPBE1007-11-19 20:32:00 Test Item Value Reference Range Interpretation Comments Chloride Lvl (test code = Chloride Lvl) 100 95-109 N [facility] CenterMsvsvecBPKHNQESM2390-22-61 20:32:00 Test Item Value Reference Range Interpretation Comments Potassium Lvl (test code = Potassium 4.0 3.5-5.1 N Lvl) [facility] CenterQkcbzrwWNBHLMEAT8951-27-64 20:32:00 Test Item Value Reference Range Interpretation Comments CO2 (test code = CO2) 28 24-32 N [facility] CenterPaxzzbsQEZLSELWG3111-57-15 20:32:00 Test Item Value Reference Range Interpretation Comments Sodium Lvl (test code = Sodium Lvl) 137 135-145 N [facility] CenterRjlxqcyFABAMQXWK9127-18-79 20:32:00 Test Item Value Reference Range Interpretation Comments Calcium Lvl (test code = Calcium Lvl) 9.1 8.5-10.5 N [facility] CenterZdukdkrAGGDCPYAN5196-05-07 20:32:00 Test Item Value Reference Range Interpretation Comments Creatinine Lvl (test code = Creatinine 0.5 0.5-1.4 N Lvl) [facility] CenterTitmkotKYLLDJRTN9227-40-93 20:32:00 Test Item Value Reference Range Interpretation Comments Glucose Lvl (test code = Glucose Lvl) 81 70-99 N [facility] CenterKfyrqayTPGROYGFA4936-19-33 20:32:00 Test Item Value Reference Range Interpretation Comments BUN (test code = BUN) 9 7-22 N [facility] CenterCnooiynQWLGYZODF4984-65-40 20:32:00 Test Item Value Reference Range Interpretation Comments Vitamin D 1,25 (OH)2 Total (test code = 52 18-72 Vitamin D 1,25 (OH)2 Total) [facility] CenterZizlniwNSNKGOVWR6651-89-22 20:32:00 Test Item Value Reference Range Interpretation Comments Vitamin D2 1,25 (OH)2 (test code = no gt Vitamin D2 1,25 (OH)2) [facility] CenterFuqwctgZVUWTYBLV8888-36-01 20:32:00 Test Item Value Reference Range Interpretation Comments Vitamin D3 1,25 (OH)2 (test code = 52 Vitamin D3 1,25 (OH)2) [facility] CenterFbuiplvCTICJVKLUC4324-32-85 20:32:00 Test Item Value Reference Range Interpretation Comments MPV (test code = MPV) 8.7 7.4-10.4 N [facility] CenterPsmjmyqIMGPBKCWQI1270-35-76 20:32:00 Test Item Value Reference Range Interpretation Comments Hgb (test code = Hgb) 12.0 12.0-16.0 N [facility] CenterPqpasbuHTRNHEEIGL9112-06-27 20:32:00 Test Item Value Reference Range Interpretation Comments RBC (test code = RBC) 4.51 4.20-5.40 N [facility] CenterYpgmldyMGVZYJYORK2412-84-23 20:32:00 Test Item Value Reference Range Interpretation Comments WBC (test code = WBC) 15.6 3.7-10.4 H [facility] CenterWjzbpfeQQYCIURTJB1990-65-19 20:32:00 Test Item Value Reference Range Interpretation Comments Hct (test code = Hct) 37.0 36.0-48.0 N [facility] CenterTjkarqkULKPFIYDGO1561-84-77 20:32:00 Test Item Value Reference Range Interpretation Comments MCV (test code = MCV) 82.0 81.0-99.0 N [facility] CenterXtatnhzXWXZBAKXZQ3483-37-15 20:32:00 Test Item Value Reference Range Interpretation Comments RDW (test code = RDW) 15.9 11.5-14.5 H [facility] CenterMpyszsjHCXJVTCNKJ3067-39-83 20:32:00 Test Item Value Reference Range Interpretation Comments MCHC (test code = MCHC) 32.3 32.0-36.0 N [facility] CenterXzwnjsuXIXGNXBLBO2588-70-52 20:32:00 Test Item Value Reference Range Interpretation Comments MCH (test code = MCH) 26.5 pg 27.0-31.0 L [facility] CenterJtdslbwTXLAWWNDZM7500-55-36 20:32:00 Test Item Value Reference Range Interpretation Comments Platelet (test code = Platelet) 371 133-450 N [facility] CenterHhxfswvEWOVMFBBXN3899-01-11 20:32:00 Test Item Value Reference Range Interpretation Comments Polychrom (test code = Slight (11/26/2012 N Polychrom) 14:32:00) [facility] CenterDwowuesEXRXBQKFBL3977-98-43 20:32:00 Test Item Value Reference Range Interpretation Comments Large Plt (test code = Slight *ABN*(11/26/2012 A Large Plt) 14:32:00) [facility] CenterTjyddczTDCWOADQKK8867-02-51 20:32:00 Test Item Value Reference Range Interpretation Comments Segs (test code = Segs) 73.0 45.0-75.0 N [facility] CenterWxttzqaVMLZMRKTKH6778-99-95 20:32:00 Test Item Value Reference Range Interpretation Comments Eosinophils # (test code 0.2 See_Comment N [A utomated message] The = Eosinophils #) system whic h generated this result tra nsmitted reference range : <=0.5. The reference r megan was not used to int erpret this result as normal/abnormal . [facility] CenterSkzmmzgTDSINBDOXR0764-35-19 20:32:00 Test Item Value Reference Range Interpretation Comments Basophils # (test code 0.1 See_Comment N [Aut omated message] The = Basophils #) system which generated this result tra nsmitted reference range : <=0.2. The reference r megan was not used to int erpret this result as normal/abnormal . [facility] CenterYxbmttyKLZZCWRNZO3224-70-22 20:32:00 Test Item Value Reference Range Interpretation Comments Lymphocytes (test code = Lymphocytes) 21.3 20.0-40.0 N [facility] CenterTgyfdrdILTOUPQBXA1564-79-36 20:32:00 Test Item Value Reference Range Interpretation Comments Segs-Bands # (test code = Segs-Bands #) 11.4 1.5-8.1 H [facility] CenterVvmhxczIVKIWBCVMX7026-01-77 20:32:00 Test Item Value Reference Range Interpretation Comments Eosinophils (test code = 1.1 See_Comment N [A utomated message] The Eosinophils) system which ge nerated this result tra nsmitted reference range : <=4.0. The reference r megan was not used to int erpret this result as normal/abnormal . [facility] CenterYrennrqSAPBSVFNUC5632-09-24 20:32:00 Test Item Value Reference Range Interpretation Comments Basophils (test code = 0.5 See_Comment N [Aut omated message] The Basophils) system which ge nerated this result tra nsmitted reference range : <=1.0. The reference r megan was not used to int erpret this result as normal/abnormal . [facility] CenterWqnalzdLSCUWFPAZI8521-30-35 20:32:00 Test Item Value Reference Range Interpretation Comments Monocytes (test code = Monocytes) 4.1 2.0-12.0 N [facility] CenterCjckksmTJTXOIDXGD5758-82-34 20:32:00 Test Item Value Reference Range Interpretation Comments Lymphocytes # (test code = Lymphocytes 3.3 1.0-5.5 N #) [facility] CenterQxgokrzGXEXXBTHZN2908-29-10 20:32:00 Test Item Value Reference Range Interpretation Comments Monocytes # (test code 0.6 See_Comment N [Aut omated message] The = Monocytes #) system which generated this result tra nsmitted reference range : <=0.8. The reference r megan was not used to int erpret this result as normal/abnormal . [facility] CenterQocpksvYJLPPMSIFU8125-57-15 20:32:00 Test Item Value Reference Range Interpretation Comments PTT (test code = PTT) 28.5 s 22.9-35.8 N [facility] CenterXyrcdwjZGMTSXFFXR7360-26-71 20:32:00 Test Item Value Reference Range Interpretation Comments PT (test code = PT) 12.9 s 12.0-14.7 N [facility] CenterEhqdxcpXKCCEPFCSB3977-93-76 20:32:00 Test Item Value Reference Range Interpretation Comments INR (test code = INR) 0.95 0.85-1.17 N [facility] HospitalLmliuazKIAFKZHBDU9400-26-61 20:32:00 Test Item Value Reference Range Interpretation Comments UA Urobilinogen (test code *NA*(11/26/2012 0.1-1.0 = UA Urobilinogen) 14:32:00) [facility] HospitalKusjhbmMXFRKCGYKT3209-67-68 20:32:00 Test Item Value Reference Range Interpretation Comments UA Bacteria (test code Occasional /HPF = UA Bacteria) *NA*(11/26/2012 14:32:00) [facility] HospitalLtvdmujQJDMBBJROU0948-98-64 20:32:00 Test Item Value Reference Range Interpretation Comments UA RBC (test code = 1 See_Comment N [Automa ashanti message] The UA RBC) system which ge nerated this result transmit ashanti reference range : <=2. The reference range was not used to interpr et this result as carmen l/abnormal. [facility] HospitalFvenoqoVQTUSIVTBF6696-02-77 20:32:00 Test Item Value Reference Range Interpretation Comments UA WBC (test code = 3 See_Comment N [Automa ashanti message] The UA WBC) system which ge nerated this result transmit ashanti reference range : <=5. The reference range was not used to interpr et this result as carmen l/abnormal. [facility] HospitalOrvadngGLXRVSBLFY5586-49-32 20:32:00 Test Item Value Reference Range Interpretation Comments UA Sq Epi (test code = Many /LPF A UA Sq Epi) *ABN*(11/26/2012 14:32:00) [facility] HospitalMhrotflXRRYNZRKUC8035-69-30 20:32:00 Test Item Value Reference Range Interpretation Comments Micro? (test code = Performed *NA*(11/26/2012 Micro?) 14:32:00) [facility] HospitalDleabcoDDNZHXJFSQ5693-45-20 20:32:00 Test Item Value Reference Range Interpretation Comments UA Mucus (test code = Few /LPF UA Mucus) *NA*(11/26/2012 14:32:00) [facility] HospitalJmycyqaEUMZHHBFJP9055-81-49 20:32:00 Test Item Value Reference Range Interpretation Comments UA Bili (test code = Negative *NA*(11/26/2012 UA Bili) 14:32:00) [facility] HospitalIfiqkszQZNDIPYQJY5486-56-72 20:32:00 Test Item Value Reference Range Interpretation Comments UA Ketones (test code Negative mg/dL = UA Ketones) *NA*(11/26/2012 14:32:00) [facility] HospitalPsrkmyqZCOTVDSBHC1288-77-38 20:32:00 Test Item Value Reference Range Interpretation Comments UA Protein (test code Negative mg/dL N = UA Protein) (11/26/2012 14:32:00) [facility] HospitalKucvzyqTFUYJLVIAX8958-91-80 20:32:00 Test Item Value Reference Range Interpretation Comments UA Leuk Est (test code Trace *ABN*(11/26/2012 A = UA Leuk Est) 14:32:00) [facility]DhnfnndAGSCADJTQO9728-87-33 20:32:00 Test Item Value Reference Range Interpretation Comments UA Nitrite (test code Negative (11/26/2012 N = UA Nitrite) 14:32:00) [facility] HospitalZcyxiuyEMPIBVOINW7740-09-28 20:32:00 Test Item Value Reference Range Interpretation Comments UA Blood (test code = Negative (11/26/2012 N UA Blood) 14:32:00) [facility] HospitalFdshzkwPAZGAODBQR1264-95-14 20:32:00 Test Item Value Reference Range Interpretation Comments UA Color (test code = Yellow *NA*(11/26/2012 UA Color) 14:32:00) [facility] HospitalDztubqqRRGNESFAVJ3889-67-39 20:32:00 Test Item Value Reference Range Interpretation Comments UA pH (test code = UA pH) 6.0 5.0-8.0 N [facility] HospitalBnimqghNENDTDFCTN0088-43-15 20:32:00 Test Item Value Reference Range Interpretation Comments UA Spec Grav (test code = UA Spec Grav) 1.016 N [facility] HospitalZqpklxdLJGBNNPOYA8085-62-66 20:32:00 Test Item Value Reference Range Interpretation Comments UA Turbidity (test code Slight A = UA Turbidity) *ABN*(11/26/2012 14:32:00) [facility] HospitalUxqvjhpAAWICCOCDQ7293-63-39 20:32:00 Test Item Value Reference Range Interpretation Comments UA Glucose (test code Negative mg/dL = UA Glucose) *NA*(11/26/2012 14:32:00) [facility] CenterYfqelsuRDSDTHVGH9520-25-90 20:32:00 Test Item Value Reference Range Interpretation Comments A/G Ratio (test code = A/G Ratio) 0.9 0.7-1.6 N [facility] CenterFvfafejUVERXEEDO6064-51-46 20:32:00 Test Item Value Reference Range Interpretation Comments Globulin (test code = Globulin) 4.4 2.0-4.0 H [facility] CenterNceitwwNIQNJMGZW3571-70-00 20:32:00 Test Item Value Reference Range Interpretation Comments AGAP (test code = AGAP) 13.0 10.0-20.0 N [facility] CenterXzrndwvPKWTFUHIA5566-30-20 20:32:00 Test Item Value Reference Range Interpretation Comments B/C Ratio (test code = B/C Ratio) 18 6-25 N [facility] CenterOrwxpbsRJPJGHQKH5494-88-92 20:32:00 Test Item Value Reference Range Interpretation Comments AST (test code = AST) 24 See_Comment N [Auto mated message] The system which ge nerated this result transmit ashanti reference range : <=37. The reference range was not used to interpr et this result as carmen l/abnormal. [facility] CenterYxxhxphQIIHMORHQ8338-28-04 20:32:00 Test Item Value Reference Range Interpretation Comments Bili Total (test code = Bili Total) 0.5 0.2-1.3 N [facility] CenterAwmrghiAXMKXTZAF1665-51-93 20:32:00 Test Item Value Reference Range Interpretation Comments Alk Phos (test code = Alk Phos) 98 39-136 N [facility] CenterTjonuieOQCBXZNKU0092-50-87 20:32:00 Test Item Value Reference Range Interpretation Comments ALT (test code = ALT) 37 See_Comment N [Auto mated message] The system which ge nerated this result transmit ashanti reference range : <=65. The reference range was not used to interpr et this result as carmen l/abnormal. [facility] CenterUrvkwvvYOADSQGJN2572-38-65 20:32:00 Test Item Value Reference Range Interpretation Comments Total Protein (test code = Total 8.5 6.4-8.4 H Protein) [facility] CenterPvfsmrvKANXEFQPD9503-01-02 20:32:00 Test Item Value Reference Range Interpretation Comments eGFR (test code = eGFR) 128 [facility] CenterRuqeazdVNYLRIZSB1561-09-57 20:32:00 Test Item Value Reference Range Interpretation Comments Albumin Lvl (test code = Albumin Lvl) 4.1 3.5-5.0 N [facility] CenterJgysowgINAJYEPGX6936-32-58 20:32:00 Test Item Value Reference Range Interpretation Comments Chloride Lvl (test code = Chloride Lvl) 100 95-109 N [facility] CenterLwtipyrNGSLIDDWD9556-66-88 20:32:00 Test Item Value Reference Range Interpretation Comments Potassium Lvl (test code = Potassium 4.0 3.5-5.1 N Lvl) [facility] CenterPhzwfnmTCJNAFJNH8467-73-84 20:32:00 Test Item Value Reference Range Interpretation Comments CO2 (test code = CO2) 28 24-32 N [facility] CenterUhonogsKIHSOKIDY1313-62-22 20:32:00 Test Item Value Reference Range Interpretation Comments Sodium Lvl (test code = Sodium Lvl) 137 135-145 N [facility] CenterVwsjstkILBMLNEAA5004-19-96 20:32:00 Test Item Value Reference Range Interpretation Comments Calcium Lvl (test code = Calcium Lvl) 9.1 8.5-10.5 N [facility] CenterSwgpwpqSDVZOWMCB3648-82-33 20:32:00 Test Item Value Reference Range Interpretation Comments Creatinine Lvl (test code = Creatinine 0.5 0.5-1.4 N Lvl) [facility] CenterUxxdklmKQINOZCDR9839-09-48 20:32:00 Test Item Value Reference Range Interpretation Comments Glucose Lvl (test code = Glucose Lvl) 81 70-99 N [facility] CenterItwtxjuXNLMTKAGJ8204-99-48 20:32:00 Test Item Value Reference Range Interpretation Comments BUN (test code = BUN) 9 7-22 N [place] [address]-02-21 20:32:00 Test Item Value Reference Range Interpretation Comments Vitamin D 1,25 (OH)2 Total (test code = 52 18-72 Vitamin D 1,25 (OH)2 Total) [facility] CenterOdpujvrIRLVLYBRH1914-25-33 20:32:00 Test Item Value Reference Range Interpretation Comments Vitamin D2 1,25 (OH)2 (test code = no gt Vitamin D2 1,25 (OH)2) [facility] CenterSnzdwwuGHTGJTIEM5153-74-76 20:32:00 Test Item Value Reference Range Interpretation Comments Vitamin D3 1,25 (OH)2 (test code = 52 Vitamin D3 1,25 (OH)2) [facility] CenterQelkopeIXNDXOJZGH2980-63-26 20:32:00 Test Item Value Reference Range Interpretation Comments MPV (test code = MPV) 8.7 7.4-10.4 N [facility] CenterBknwakuSLIARAFROW1301-54-94 20:32:00 Test Item Value Reference Range Interpretation Comments Hgb (test code = Hgb) 12.0 12.0-16.0 N [facility] CenterEvsbcyfLXSSERWVNQ6967-90-99 20:32:00 Test Item Value Reference Range Interpretation Comments RBC (test code = RBC) 4.51 4.20-5.40 N [facility] CenterUlshfmiGDICHKUWLY8713-24-15 20:32:00 Test Item Value Reference Range Interpretation Comments WBC (test code = WBC) 15.6 3.7-10.4 H [facility] CenterOiqqtydXUJGNBXGKH1609-21-31 20:32:00 Test Item Value Reference Range Interpretation Comments Hct (test code = Hct) 37.0 36.0-48.0 N [facility] CenterEojigepVBHOUBHWXB8099-55-62 20:32:00 Test Item Value Reference Range Interpretation Comments MCV (test code = MCV) 82.0 81.0-99.0 N [facility] CenterHivethdLIPCEYZOJI5546-91-95 20:32:00 Test Item Value Reference Range Interpretation Comments RDW (test code = RDW) 15.9 11.5-14.5 H [facility] CenterVqjevacCGOXFEQRWE5876-27-59 20:32:00 Test Item Value Reference Range Interpretation Comments MCHC (test code = MCHC) 32.3 32.0-36.0 N [facility] CenterAzanwxyYFONSCIEFZ7372-12-11 20:32:00 Test Item Value Reference Range Interpretation Comments MCH (test code = MCH) 26.5 pg 27.0-31.0 L [facility] CenterKjsbmwlUDHEJJHLQT8847-07-36 20:32:00 Test Item Value Reference Range Interpretation Comments Platelet (test code = Platelet) 371 133-450 N [facility] CenterJhimsqhRTRFVFJLUC3061-19-47 20:32:00 Test Item Value Reference Range Interpretation Comments Polychrom (test code = Slight (11/26/2012 N Polychrom) 14:32:00) [facility] CenterJbtrrecKHJJPGHYHP1030-56-82 20:32:00 Test Item Value Reference Range Interpretation Comments Large Plt (test code = Slight *ABN*(11/26/2012 A Large Plt) 14:32:00) [facility] CenterDftqtygGYYAAFKFSF5225-47-17 20:32:00 Test Item Value Reference Range Interpretation Comments Segs (test code = Segs) 73.0 45.0-75.0 N [facility] CenterShribvoBISEXCKBYG0660-18-23 20:32:00 Test Item Value Reference Range Interpretation Comments Eosinophils # (test code 0.2 See_Comment N [A utomated message] The = Eosinophils #) system whic h generated this result tra nsmitted reference range : <=0.5. The reference r megan was not used to int erpret this result as normal/abnormal . [facility] CenterBervqxkHWZMQHQLRK0124-53-37 20:32:00 Test Item Value Reference Range Interpretation Comments Basophils # (test code 0.1 See_Comment N [Aut omated message] The = Basophils #) system which generated this result tra nsmitted reference range : <=0.2. The reference r megan was not used to int erpret this result as normal/abnormal . [facility] CenterQiamnkaDPUOYUTTZY8429-92-22 20:32:00 Test Item Value Reference Range Interpretation Comments Lymphocytes (test code = Lymphocytes) 21.3 20.0-40.0 N [facility] CenterUkcazbvDRWGWRXQOF3305-31-82 20:32:00 Test Item Value Reference Range Interpretation Comments Segs-Bands # (test code = Segs-Bands #) 11.4 1.5-8.1 H [facility] CenterTsdsllvLXIKDRAVZQ2563-56-65 20:32:00 Test Item Value Reference Range Interpretation Comments Eosinophils (test code = 1.1 See_Comment N [A utomated message] The Eosinophils) system which ge nerated this result tra nsmitted reference range : <=4.0. The reference r megan was not used to int erpret this result as normal/abnormal . [facility] CenterOzjlsqmZWPPQTXYNL2990-92-84 20:32:00 Test Item Value Reference Range Interpretation Comments Basophils (test code = 0.5 See_Comment N [Aut omated message] The Basophils) system which ge nerated this result tra nsmitted reference range : <=1.0. The reference r megan was not used to int erpret this result as normal/abnormal . [facility] CenterSrlxcyaXHITWNEKQU8407-75-82 20:32:00 Test Item Value Reference Range Interpretation Comments Monocytes (test code = Monocytes) 4.1 2.0-12.0 N [facility] CenterXnzilzwQMKQOEAVDN2590-45-37 20:32:00 Test Item Value Reference Range Interpretation Comments Lymphocytes # (test code = Lymphocytes 3.3 1.0-5.5 N #) [facility] CenterCmstelcPELIQIQZCN5211-81-98 20:32:00 Test Item Value Reference Range Interpretation Comments Monocytes # (test code 0.6 See_Comment N [Aut omated message] The = Monocytes #) system which generated this result tra nsmitted reference range : <=0.8. The reference r megan was not used to int erpret this result as normal/abnormal . [facility] CenterJbuonseKPWZJZHUHL1449-11-60 20:32:00 Test Item Value Reference Range Interpretation Comments PTT (test code = PTT) 28.5 s 22.9-35.8 N [facility] CenterMkmrjhaCUCRCAWNLU3764-81-69 20:32:00 Test Item Value Reference Range Interpretation Comments PT (test code = PT) 12.9 s 12.0-14.7 N [facility] CenterJbfbgprXIFXUJQBMR5351-32-56 20:32:00 Test Item Value Reference Range Interpretation Comments INR (test code = INR) 0.95 0.85-1.17 N [facility]SthmhpcPFJEDBGQGC5675-10-17 20:32:00 Test Item Value Reference Range Interpretation Comments UA Urobilinogen (test code *NA*(11/26/2012 0.1-1.0 = UA Urobilinogen) 14:32:00) [facility] HospitalOiivxubKAOMTVAKOY2523-97-63 20:32:00 Test Item Value Reference Range Interpretation Comments UA Bacteria (test code Occasional /HPF = UA Bacteria) *NA*(11/26/2012 14:32:00) [facility]uauotqMKYFDIIKRN1214-48-92 20:32:00 Test Item Value Reference Range Interpretation Comments UA RBC (test code = 1 See_Comment N [Automa ashanti message] The UA RBC) system which ge nerated this result transmit ashanti reference range : <=2. The reference range was not used to interpr et this result as carmen l/abnormal. [facility]anoQyrmjvkUKGFTCXFHE3289-44-57 20:32:00 Test Item Value Reference Range Interpretation Comments UA WBC (test code = 3 See_Comment N [Automa ashanti message] The UA WBC) system which ge nerated this result transmit ashanti reference range : <=5. The reference range was not used to interpr et this result as carmen l/abnormal. [facility] HospitalFzrplrlVIKQJIMEBX5703-02-71 20:32:00 Test Item Value Reference Range Interpretation Comments UA Sq Epi (test code = Many /LPF A UA Sq Epi) *ABN*(11/26/2012 14:32:00) [facility]IzabdieCFAOVATFZP4660-89-45 20:32:00 Test Item Value Reference Range Interpretation Comments Micro? (test code = Performed *NA*(11/26/2012 Micro?) 14:32:00) [facility]anoGhkdgpmSXHFCLDXJW5385-47-63 20:32:00 Test Item Value Reference Range Interpretation Comments UA Mucus (test code = Few /LPF UA Mucus) *NA*(11/26/2012 14:32:00) [facility]SvlxbdqBCTTYHWFJL7726-56-77 20:32:00 Test Item Value Reference Range Interpretation Comments UA Bili (test code = Negative *NA*(11/26/2012 UA Bili) 14:32:00) [facility]anoZwdkiigWUALAWIVBR7513-07-81 20:32:00 Test Item Value Reference Range Interpretation Comments UA Ketones (test code Negative mg/dL = UA Ketones) *NA*(11/26/2012 14:32:00) [facility] CenterIiogyhpCWRDAHIFV2415-69-67 20:32:00 Test Item Value Reference Range Interpretation Comments A/G Ratio (test code = A/G Ratio) 0.9 0.7-1.6 N [facility]HgvvkeaYICWHEOYBC1991-92-13 20:32:00 Test Item Value Reference Range Interpretation Comments UA Protein (test code Negative mg/dL N = UA Protein) (11/26/2012 14:32:00) [facility] HospitalQuqxbtiGEBJROPILO8092-75-40 20:32:00 Test Item Value Reference Range Interpretation Comments UA Leuk Est (test code Trace *ABN*(11/26/2012 A = UA Leuk Est) 14:32:00) [facility] HospitalIbjadmhMRTXAJGWKK6008-82-57 20:32:00 Test Item Value Reference Range Interpretation Comments UA Nitrite (test code Negative (11/26/2012 N = UA Nitrite) 14:32:00) [facility] HospitalPkwvbrrBHRYXEYPRH5272-67-66 20:32:00 Test Item Value Reference Range Interpretation Comments UA Blood (test code = Negative (11/26/2012 N UA Blood) 14:32:00) [facility] HospitalBegslhtEJNLRPDZGP1788-21-17 20:32:00 Test Item Value Reference Range Interpretation Comments UA Color (test code = Yellow *NA*(11/26/2012 UA Color) 14:32:00) [facility] HospitalVodyvkoQOOUVZKJHB7189-25-75 20:32:00 Test Item Value Reference Range Interpretation Comments UA pH (test code = UA pH) 6.0 5.0-8.0 N [facility] HospitalRdipbdxOBNMOKRQXG1963-88-63 20:32:00 Test Item Value Reference Range Interpretation Comments UA Spec Grav (test code = UA Spec Grav) 1.016 N [facility] HospitalDvjiyxgJOSZDKSTLM4802-66-64 20:32:00 Test Item Value Reference Range Interpretation Comments UA Turbidity (test code Slight A = UA Turbidity) *ABN*(11/26/2012 14:32:00) [facility] HospitalSuqwhxyYPKOZCBWWA1131-91-45 20:32:00 Test Item Value Reference Range Interpretation Comments UA Glucose (test code Negative mg/dL = UA Glucose) *NA*(11/26/2012 14:32:00) [facility] CenterQejfzpjKYJCDDNXA5537-13-16 20:32:00 Test Item Value Reference Range Interpretation Comments Globulin (test code = Globulin) 4.4 2.0-4.0 H [facility] CenterGwcxkvpORVHAJAWK3299-55-00 20:32:00 Test Item Value Reference Range Interpretation Comments AGAP (test code = AGAP) 13.0 10.0-20.0 N [facility] CenterQfxzqnoOELIMJULH7900-58-10 20:32:00 Test Item Value Reference Range Interpretation Comments B/C Ratio (test code = B/C Ratio) 18 6-25 N [facility] CenterZnuzvlaVWHZWGYNC5575-52-06 20:32:00 Test Item Value Reference Range Interpretation Comments AST (test code = AST) 24 See_Comment N [Auto mated message] The system which ge nerated this result transmit ashanti reference range : <=37. The reference range was not used to interpr et this result as carmen l/abnormal. [facility] CenterFkzyginLQZBMZAEF4658-88-21 20:32:00 Test Item Value Reference Range Interpretation Comments Bili Total (test code = Bili Total) 0.5 0.2-1.3 N [facility] CenterJxifhubYQHDJCCKM7331-67-32 20:32:00 Test Item Value Reference Range Interpretation Comments Alk Phos (test code = Alk Phos) 98 39-136 N [facility] CenterAzaofsyTKLGFYWKS1855-92-66 20:32:00 Test Item Value Reference Range Interpretation Comments ALT (test code = ALT) 37 See_Comment N [Auto mated message] The system which ge nerated this result transmit ashanti reference range : <=65. The reference range was not used to interpr et this result as carmen l/abnormal. [facility] CenterPssmubgNSKMBZHQF8672-10-76 20:32:00 Test Item Value Reference Range Interpretation Comments Total Protein (test code = Total 8.5 6.4-8.4 H Protein) [facility] CenterZrpjphbMJZTWLWHW8778-88-32 20:32:00 Test Item Value Reference Range Interpretation Comments eGFR (test code = eGFR) 128 [facility] CenterItndrkvRNHVRIIOE0810-65-64 20:32:00 Test Item Value Reference Range Interpretation Comments Albumin Lvl (test code = Albumin Lvl) 4.1 3.5-5.0 N [facility] CenterScibbwkTDYYEKZDU7298-09-18 20:32:00 Test Item Value Reference Range Interpretation Comments Chloride Lvl (test code = Chloride Lvl) 100 95-109 N [facility] CenterJwvksaoKDNWAVMUT1112-95-43 20:32:00 Test Item Value Reference Range Interpretation Comments A/G Ratio (test code = A/G Ratio) 0.9 0.7-1.6 N [facility] CenterEjuensdHJQANUQUJ2377-32-38 20:32:00 Test Item Value Reference Range Interpretation Comments Globulin (test code = Globulin) 4.4 2.0-4.0 H [facility] CenterLqvfftzVBEFELPGP7081-58-62 20:32:00 Test Item Value Reference Range Interpretation Comments AGAP (test code = AGAP) 13.0 10.0-20.0 N [facility] CenterRujfwvhFCNIVXLDP8063-65-91 20:32:00 Test Item Value Reference Range Interpretation Comments B/C Ratio (test code = B/C Ratio) 18 6-25 N [facility] CenterUrwsyoyCPHSNCSIV5084-55-27 20:32:00 Test Item Value Reference Range Interpretation Comments Potassium Lvl (test code = Potassium 4.0 3.5-5.1 N Lvl) [facility] CenterZcirpbtWBXNMKASQ6088-17-16 20:32:00 Test Item Value Reference Range Interpretation Comments AST (test code = AST) 24 See_Comment N [Auto mated message] The system which ge nerated this result transmit ashanti reference range : <=37. The reference range was not used to interpr et this result as carmen l/abnormal. [facility] CenterYnvoyviZNKKNTGNJ3888-89-00 20:32:00 Test Item Value Reference Range Interpretation Comments Bili Total (test code = Bili Total) 0.5 0.2-1.3 N [facility] CenterCczmyhpNINQIFJAI9254-09-28 20:32:00 Test Item Value Reference Range Interpretation Comments Alk Phos (test code = Alk Phos) 98 39-136 N [facility] CenterRyoosqePAAXYBRHY8321-53-58 20:32:00 Test Item Value Reference Range Interpretation Comments ALT (test code = ALT) 37 See_Comment N [Auto mated message] The system which ge nerated this result transmit ashanti reference range : <=65. The reference range was not used to interpr et this result as carmen l/abnormal. [facility] CenterIncenmsDIJPYGEBN0495-29-67 20:32:00 Test Item Value Reference Range Interpretation Comments Total Protein (test code = Total 8.5 6.4-8.4 H Protein) [facility] CenterXwjrhhlVJYZHSGQD2132-93-30 20:32:00 Test Item Value Reference Range Interpretation Comments eGFR (test code = eGFR) 128 [facility] CenterJvfxlpuOQINBOJFF3332-70-95 20:32:00 Test Item Value Reference Range Interpretation Comments Albumin Lvl (test code = Albumin Lvl) 4.1 3.5-5.0 N [facility] CenterAbskwplIAZDZAVLL1162-85-73 20:32:00 Test Item Value Reference Range Interpretation Comments Chloride Lvl (test code = Chloride Lvl) 100 95-109 N [facility] CenterYzzorjoEJABGFGSM8777-05-47 20:32:00 Test Item Value Reference Range Interpretation Comments Potassium Lvl (test code = Potassium 4.0 3.5-5.1 N Lvl) [facility] CenterVecqmyxQYCAGWNTY2392-35-31 20:32:00 Test Item Value Reference Range Interpretation Comments CO2 (test code = CO2) 28 24-32 N [facility] CenterNwadigtYVXRQQOXV6010-89-17 20:32:00 Test Item Value Reference Range Interpretation Comments CO2 (test code = CO2) 28 24-32 N [facility] CenterUajkpqsQUECWHFVV2114-13-57 20:32:00 Test Item Value Reference Range Interpretation Comments Sodium Lvl (test code = Sodium Lvl) 137 135-145 N [facility] CenterBjrapvyLVXPHGTCO8479-00-55 20:32:00 Test Item Value Reference Range Interpretation Comments Calcium Lvl (test code = Calcium Lvl) 9.1 8.5-10.5 N [facility] CenterHnxvaplBHIMHUJMD7009-64-23 20:32:00 Test Item Value Reference Range Interpretation Comments Creatinine Lvl (test code = Creatinine 0.5 0.5-1.4 N Lvl) [facility] CenterWjhayvmFENNHZCLK0332-18-67 20:32:00 Test Item Value Reference Range Interpretation Comments Glucose Lvl (test code = Glucose Lvl) 81 70-99 N [facility] CenterHarnaydJOXKRXVOC2919-46-15 20:32:00 Test Item Value Reference Range Interpretation Comments BUN (test code = BUN) 9 7-22 N [facility] CenterZpzushmIFLXWXFQY2566-81-76 20:32:00 Test Item Value Reference Range Interpretation Comments Vitamin D 1,25 (OH)2 Total (test code = 52 18-72 Vitamin D 1,25 (OH)2 Total) [facility] CenterNsmtdouPJUYSNYZI6571-38-28 20:32:00 Test Item Value Reference Range Interpretation Comments Vitamin D2 1,25 (OH)2 (test code = no gt Vitamin D2 1,25 (OH)2) [facility] CenterPzjeuwpGBSSRPFJH8866-58-19 20:32:00 Test Item Value Reference Range Interpretation Comments Vitamin D3 1,25 (OH)2 (test code = 52 Vitamin D3 1,25 (OH)2) [facility]OsqjhioABVKHNKBCL4065-01-15 20:32:00 Test Item Value Reference Range Interpretation Comments MPV (test code = MPV) 8.7 7.4-10.4 N [facility] CenterYwgyucpGMDORKWUCC4152-94-33 20:32:00 Test Item Value Reference Range Interpretation Comments Hgb (test code = Hgb) 12.0 12.0-16.0 N [facility] CenterIiuvbypVOFRXBNFD1916-16-29 20:32:00 Test Item Value Reference Range Interpretation Comments Sodium Lvl (test code = Sodium Lvl) 137 135-145 N [facility] CenterVfgprnjFFUHDLMEJQ3862-51-39 20:32:00 Test Item Value Reference Range Interpretation Comments RBC (test code = RBC) 4.51 4.20-5.40 N [facility] CenterMeafhpbYNNOQVYZNW1647-21-38 20:32:00 Test Item Value Reference Range Interpretation Comments WBC (test code = WBC) 15.6 3.7-10.4 H [facility] CenterCkfqqzlSZAANZEVIB7283-69-11 20:32:00 Test Item Value Reference Range Interpretation Comments Hct (test code = Hct) 37.0 36.0-48.0 N [facility] CenterRidbkbnFTLFCYDQFW8679-65-33 20:32:00 Test Item Value Reference Range Interpretation Comments MCV (test code = MCV) 82.0 81.0-99.0 N [facility] CenterJmumhelFSBSXGKTZR3016-33-11 20:32:00 Test Item Value Reference Range Interpretation Comments RDW (test code = RDW) 15.9 11.5-14.5 H [facility] CenterAemybquNZIZQWAIAE7136-42-27 20:32:00 Test Item Value Reference Range Interpretation Comments MCHC (test code = MCHC) 32.3 32.0-36.0 N [facility] CenterRjpdwonGBBGTNVTMG9289-87-65 20:32:00 Test Item Value Reference Range Interpretation Comments MCH (test code = MCH) 26.5 pg 27.0-31.0 L [facility] CenterSicmzohLEPIXQDWLL6058-49-53 20:32:00 Test Item Value Reference Range Interpretation Comments Platelet (test code = Platelet) 371 133-450 N [facility] CenterEnptkmkQZZBIMXNTS8184-07-78 20:32:00 Test Item Value Reference Range Interpretation Comments Polychrom (test code = Slight (11/26/2012 N Polychrom) 14:32:00) [facility] CenterVayekniAINRTEMHZW1653-86-04 20:32:00 Test Item Value Reference Range Interpretation Comments Large Plt (test code = Slight *ABN*(11/26/2012 A Large Plt) 14:32:00) [facility] CenterKlzgrdoKHALVOMER6179-63-67 20:32:00 Test Item Value Reference Range Interpretation Comments Calcium Lvl (test code = Calcium Lvl) 9.1 8.5-10.5 N [facility] CenterPvashkiHIWUOYDDXY2457-78-43 20:32:00 Test Item Value Reference Range Interpretation Comments Segs (test code = Segs) 73.0 45.0-75.0 N [facility] CenterIgymzurSZHJJKJWJZ1605-01-67 20:32:00 Test Item Value Reference Range Interpretation Comments Eosinophils # (test code 0.2 See_Comment N [A utomated message] The = Eosinophils #) system whic h generated this result tra nsmitted reference range : <=0.5. The reference r megan was not used to int erpret this result as normal/abnormal . [facility] CenterLjncmcvSYLUDHEAVD7629-69-81 20:32:00 Test Item Value Reference Range Interpretation Comments Basophils # (test code 0.1 See_Comment N [Aut omated message] The = Basophils #) system which generated this result tra nsmitted reference range : <=0.2. The reference r megan was not used to int erpret this result as normal/abnormal . [facility] CenterJhcppsgSTYFZFFRCM9123-45-20 20:32:00 Test Item Value Reference Range Interpretation Comments Lymphocytes (test code = Lymphocytes) 21.3 20.0-40.0 N [facility] CenterZxeicilQHEEGSWHZO2938-73-51 20:32:00 Test Item Value Reference Range Interpretation Comments Segs-Bands # (test code = Segs-Bands #) 11.4 1.5-8.1 H [facility] CenterZeywumxVYYYCDRFDQ0791-74-54 20:32:00 Test Item Value Reference Range Interpretation Comments Eosinophils (test code = 1.1 See_Comment N [A utomated message] The Eosinophils) system which ge nerated this result tra nsmitted reference range : <=4.0. The reference r megan was not used to int erpret this result as normal/abnormal . [facility] CenterEzugcdaTFHSKQPNTO5379-98-43 20:32:00 Test Item Value Reference Range Interpretation Comments Basophils (test code = 0.5 See_Comment N [Aut omated message] The Basophils) system which ge nerated this result tra nsmitted reference range : <=1.0. The reference r megan was not used to int erpret this result as normal/abnormal . [facility] CenterWtaufuiNKFDSOQFUL1062-02-60 20:32:00 Test Item Value Reference Range Interpretation Comments Monocytes (test code = Monocytes) 4.1 2.0-12.0 N [facility] CenterYnznynePUOHXAYQXW2880-59-89 20:32:00 Test Item Value Reference Range Interpretation Comments Lymphocytes # (test code = Lymphocytes 3.3 1.0-5.5 N #) [facility] CenterMkxgsghMMRBRCZHYB2224-21-64 20:32:00 Test Item Value Reference Range Interpretation Comments Monocytes # (test code 0.6 See_Comment N [Aut omated message] The = Monocytes #) system which generated this result tra nsmitted reference range : <=0.8. The reference r megan was not used to int erpret this result as normal/abnormal . [facility] HospitalKljbbqhMMVCVWIDW2185-76-45 20:32:00 Test Item Value Reference Range Interpretation Comments Creatinine Lvl (test code = Creatinine 0.5 0.5-1.4 N Lvl) [facility] CenterSkgghoaXKHXNMAEJA2482-60-31 20:32:00 Test Item Value Reference Range Interpretation Comments PTT (test code = PTT) 28.5 s 22.9-35.8 N [facility] CenterGwlnkwxFVQHDIYGHK0312-10-65 20:32:00 Test Item Value Reference Range Interpretation Comments PT (test code = PT) 12.9 s 12.0-14.7 N [facility] CenterVujjtliHAVCHLXZJE2135-06-71 20:32:00 Test Item Value Reference Range Interpretation Comments INR (test code = INR) 0.95 0.85-1.17 N [facility] HospitalBsahnnqMOXTRKWXAT0702-48-00 20:32:00 Test Item Value Reference Range Interpretation Comments UA Urobilinogen (test code *NA*(11/26/2012 0.1-1.0 = UA Urobilinogen) 14:32:00) [facility]SgvfoanOLPCNMMVIJ5291-23-44 20:32:00 Test Item Value Reference Range Interpretation Comments UA Bacteria (test code Occasional /HPF = UA Bacteria) *NA*(11/26/2012 14:32:00) [facility] CenterPhcfuvwPPHXVQHRUM2507-65-10 20:32:00 Test Item Value Reference Range Interpretation Comments UA RBC (test code = 1 See_Comment N [Automa ashanti message] The UA RBC) system which ge nerated this result transmit ashanti reference range : <=2. The reference range was not used to interpr et this result as carmen l/abnormal. [facility] CenterHvtbzitRESTQLVONV2049-72-70 20:32:00 Test Item Value Reference Range Interpretation Comments UA WBC (test code = 3 See_Comment N [Automa ashanti message] The UA WBC) system which ge nerated this result transmit ashanti reference range : <=5. The reference range was not used to interpr et this result as carmen l/abnormal. [facility] MdgxjwsOGFNQOQYCE3838-29-32 20:32:00 Test Item Value Reference Range Interpretation Comments UA Sq Epi (test code = Many /LPF A UA Sq Epi) *ABN*(11/26/2012 14:32:00) [facility] CenterCidfkbnITXQSCVDJF8596-94-70 20:32:00 Test Item Value Reference Range Interpretation Comments Micro? (test code = Performed *NA*(11/26/2012 Micro?) 14:32:00) [facility] CenterHayomasCKOYLRUYUW6276-12-39 20:32:00 Test Item Value Reference Range Interpretation Comments UA Mucus (test code = Few /LPF UA Mucus) *NA*(11/26/2012 14:32:00) [facility] CenterOcovtlqMMQMEQFOK9650-85-88 20:32:00 Test Item Value Reference Range Interpretation Comments Glucose Lvl (test code = Glucose Lvl) 81 70-99 N [facility] CenterDmlbaceVGKLNHHOAX5617-48-44 20:32:00 Test Item Value Reference Range Interpretation Comments UA Bili (test code = Negative *NA*(11/26/2012 UA Bili) 14:32:00) [facility]WiczbauFALALEGPOH3725-96-10 20:32:00 Test Item Value Reference Range Interpretation Comments UA Ketones (test code Negative mg/dL = UA Ketones) *NA*(11/26/2012 14:32:00) [facility]QgsmudjYFRHCWBVWA3410-95-47 20:32:00 Test Item Value Reference Range Interpretation Comments UA Protein (test code Negative mg/dL N = UA Protein) (11/26/2012 14:32:00) [facility]anoCkmnmqiXZXDXJJMWT0234-23-73 20:32:00 Test Item Value Reference Range Interpretation Comments UA Leuk Est (test code Trace *ABN*(11/26/2012 A = UA Leuk Est) 14:32:00) [facility] HospitalWxanotcYQXRYVORWY1970-91-16 20:32:00 Test Item Value Reference Range Interpretation Comments UA Nitrite (test code Negative (11/26/2012 N = UA Nitrite) 14:32:00) [facility]anoLexihyuVCKXIFEKZC3845-90-35 20:32:00 Test Item Value Reference Range Interpretation Comments UA Blood (test code = Negative (11/26/2012 N UA Blood) 14:32:00) [facility]anoIgsdxgoQHJLONRIHV3829-60-82 20:32:00 Test Item Value Reference Range Interpretation Comments UA Color (test code = Yellow *NA*(11/26/2012 UA Color) 14:32:00) [facility] HospitalRcxsejsUOXRVZHHJN5331-17-73 20:32:00 Test Item Value Reference Range Interpretation Comments UA pH (test code = UA pH) 6.0 5.0-8.0 N [facility]anoQrsofikPISDQWFDRR2599-89-31 20:32:00 Test Item Value Reference Range Interpretation Comments UA Spec Grav (test code = UA Spec Grav) 1.016 N [facility]anoWoklxusGJNPIRMKTW2622-92-60 20:32:00 Test Item Value Reference Range Interpretation Comments UA Turbidity (test code Slight A = UA Turbidity) *ABN*(11/26/2012 14:32:00) [facility] HospitalBbtpaanIIDUVJAGI2117-95-91 20:32:00 Test Item Value Reference Range Interpretation Comments BUN (test code = BUN) 9 7-22 N [facility] HospitalHxebgwdBXMQOOZZLX1407-09-36 20:32:00 Test Item Value Reference Range Interpretation Comments UA Glucose (test code Negative mg/dL = UA Glucose) *NA*(11/26/2012 14:32:00) [facility] CenterAysabjvNGASDDMAW8564-87-55 20:32:00 Test Item Value Reference Range Interpretation Comments Vitamin D 1,25 (OH)2 Total (test code = 52 18-72 Vitamin D 1,25 (OH)2 Total) [place] 269063-02-21 20:32:00 Test Item Value Reference Range Interpretation Comments Vitamin D2 1,25 (OH)2 (test code = no gt Vitamin D2 1,25 (OH)2) [facility] CenterJqsetaxRIVBTTZGX8625-10-78 20:32:00 Test Item Value Reference Range Interpretation Comments Vitamin D3 1,25 (OH)2 (test code = 52 Vitamin D3 1,25 (OH)2) [facility] CenterDrcavlvGNVXWWBUPL0040-38-24 20:32:00 Test Item Value Reference Range Interpretation Comments MPV (test code = MPV) 8.7 7.4-10.4 N [facility] CenterOtarntsPXVBAMYNAH6029-85-00 20:32:00 Test Item Value Reference Range Interpretation Comments Hgb (test code = Hgb) 12.0 12.0-16.0 N [facility] CenterPylrlqyEZCQUTOTHF6915-76-48 20:32:00 Test Item Value Reference Range Interpretation Comments RBC (test code = RBC) 4.51 4.20-5.40 N [facility] CenterFczkruuLQBXHIHGVL8063-61-38 20:32:00 Test Item Value Reference Range Interpretation Comments WBC (test code = WBC) 15.6 3.7-10.4 H [facility] CenterJpaegvoKWXBEMGMXK9956-89-40 20:32:00 Test Item Value Reference Range Interpretation Comments Hct (test code = Hct) 37.0 36.0-48.0 N [facility] CenterPotqqegZMGXJPNOLC2087-04-06 20:32:00 Test Item Value Reference Range Interpretation Comments MCV (test code = MCV) 82.0 81.0-99.0 N [facility] CenterJmhxzonCMBYFPJELF8941-04-63 20:32:00 Test Item Value Reference Range Interpretation Comments RDW (test code = RDW) 15.9 11.5-14.5 H [facility] CenterTllzvhkQRRXCCTCX4141-94-95 20:32:00 Test Item Value Reference Range Interpretation Comments A/G Ratio (test code = A/G Ratio) 0.9 0.7-1.6 N [facility] CenterVhxkxwqFPDSDTXXX8372-96-73 20:32:00 Test Item Value Reference Range Interpretation Comments Globulin (test code = Globulin) 4.4 2.0-4.0 H [facility]SywmrexIBCJRCYSGK7340-69-49 20:32:00 Test Item Value Reference Range Interpretation Comments MCHC (test code = MCHC) 32.3 32.0-36.0 N [facility] CenterHdyfpguQEGDGSMFK4219-75-89 20:32:00 Test Item Value Reference Range Interpretation Comments AGAP (test code = AGAP) 13.0 10.0-20.0 N [facility] CenterLgctbxzLHIEPDCVJ4544-48-22 20:32:00 Test Item Value Reference Range Interpretation Comments B/C Ratio (test code = B/C Ratio) 18 6-25 N [facility] CenterUtgqiiuGSGOVHSKT2637-59-04 20:32:00 Test Item Value Reference Range Interpretation Comments AST (test code = AST) 24 See_Comment N [Auto mated message] The system which ge nerated this result transmit ashanti reference range : <=37. The reference range was not used to interpr et this result as carmen l/abnormal. [facility] CenterAxvakzeVIXLWRCFL4571-36-17 20:32:00 Test Item Value Reference Range Interpretation Comments Bili Total (test code = Bili Total) 0.5 0.2-1.3 N [facility] CenterVsakzwwEMNJKVTFC4483-73-25 20:32:00 Test Item Value Reference Range Interpretation Comments Alk Phos (test code = Alk Phos) 98 39-136 N [facility] CenterFxrqvtjJKAJZJCGH1737-87-16 20:32:00 Test Item Value Reference Range Interpretation Comments ALT (test code = ALT) 37 See_Comment N [Auto mated message] The system which ge nerated this result transmit ashanti reference range : <=65. The reference range was not used to interpr et this result as carmen l/abnormal. [facility] CenterNqmcmyePCWUREACT3980-19-73 20:32:00 Test Item Value Reference Range Interpretation Comments Total Protein (test code = Total 8.5 6.4-8.4 H Protein) [facility] CenterCzblllxBOEXDSQVQ6127-19-71 20:32:00 Test Item Value Reference Range Interpretation Comments eGFR (test code = eGFR) 128 [facility] CenterUxztnriKFFZRQPLF4082-94-56 20:32:00 Test Item Value Reference Range Interpretation Comments Albumin Lvl (test code = Albumin Lvl) 4.1 3.5-5.0 N [facility] CenterGqkxjnxICSWRDFFM6645-25-45 20:32:00 Test Item Value Reference Range Interpretation Comments Chloride Lvl (test code = Chloride Lvl) 100 95-109 N [facility] CenterUffhiygHCFSWPEGVZ3426-94-15 20:32:00 Test Item Value Reference Range Interpretation Comments MCH (test code = MCH) 26.5 pg 27.0-31.0 L [facility] CenterRmmsobzKPEUWWWAF4239-75-90 20:32:00 Test Item Value Reference Range Interpretation Comments Potassium Lvl (test code = Potassium 4.0 3.5-5.1 N Lvl) [facility] CenterJojgxeuGDDTIBZAG8091-55-22 20:32:00 Test Item Value Reference Range Interpretation Comments CO2 (test code = CO2) 28 24-32 N [facility] CenterCialfncAGIGZXVQU2674-54-22 20:32:00 Test Item Value Reference Range Interpretation Comments Sodium Lvl (test code = Sodium Lvl) 137 135-145 N [facility] CenterGagxyifUEXIOZEFF0571-89-59 20:32:00 Test Item Value Reference Range Interpretation Comments Calcium Lvl (test code = Calcium Lvl) 9.1 8.5-10.5 N [facility] CenterNbasvedDCAYDJGOF4955-65-97 20:32:00 Test Item Value Reference Range Interpretation Comments Creatinine Lvl (test code = Creatinine 0.5 0.5-1.4 N Lvl) [facility] CenterIhinnhsNLMGHGSEY3533-01-35 20:32:00 Test Item Value Reference Range Interpretation Comments Glucose Lvl (test code = Glucose Lvl) 81 70-99 N [facility] CenterTbnpfbxCJNCMKZSZ5245-97-84 20:32:00 Test Item Value Reference Range Interpretation Comments BUN (test code = BUN) 9 7-22 N [facility] CenterPleneleAJDHOLGQP7306-63-66 20:32:00 Test Item Value Reference Range Interpretation Comments Vitamin D 1,25 (OH)2 Total (test code = 52 18-72 Vitamin D 1,25 (OH)2 Total) [facility] CenterOuhnclwKDMWWGJVH7512-07-23 20:32:00 Test Item Value Reference Range Interpretation Comments Vitamin D2 1,25 (OH)2 (test code = no gt Vitamin D2 1,25 (OH)2) [facility] CenterDvaydbtYJRWFVXMN1993-97-97 20:32:00 Test Item Value Reference Range Interpretation Comments Vitamin D3 1,25 (OH)2 (test code = 52 Vitamin D3 1,25 (OH)2) [facility] CenterZoxjobsGCLQSCRSTZ1287-33-05 20:32:00 Test Item Value Reference Range Interpretation Comments Platelet (test code = Platelet) 371 133-450 N [facility] CenterLvmhzslQICOXMCKDX3769-06-28 20:32:00 Test Item Value Reference Range Interpretation Comments MPV (test code = MPV) 8.7 7.4-10.4 N [facility] CenterZqkqvqaPVGAPAGIQY1395-02-90 20:32:00 Test Item Value Reference Range Interpretation Comments Hgb (test code = Hgb) 12.0 12.0-16.0 N [facility] CenterYqkzagtLVCYBUNGVU4954-48-87 20:32:00 Test Item Value Reference Range Interpretation Comments RBC (test code = RBC) 4.51 4.20-5.40 N [facility] CenterMrhuzxkIBWFFLHTPP9524-84-44 20:32:00 Test Item Value Reference Range Interpretation Comments WBC (test code = WBC) 15.6 3.7-10.4 H [facility] CenterLgxunssJUUCXABEBJ0549-70-62 20:32:00 Test Item Value Reference Range Interpretation Comments Hct (test code = Hct) 37.0 36.0-48.0 N [facility] CenterXfrjxfhDAFWAHAGZE3776-55-08 20:32:00 Test Item Value Reference Range Interpretation Comments MCV (test code = MCV) 82.0 81.0-99.0 N [facility] CenterAfhjbwcHZEPMVYRFW0672-08-34 20:32:00 Test Item Value Reference Range Interpretation Comments RDW (test code = RDW) 15.9 11.5-14.5 H [facility] CenterMbysjakPHELPBXSBQ1718-10-84 20:32:00 Test Item Value Reference Range Interpretation Comments MCHC (test code = MCHC) 32.3 32.0-36.0 N [facility] CenterFqxddikOHOZCLFJLA4639-24-22 20:32:00 Test Item Value Reference Range Interpretation Comments MCH (test code = MCH) 26.5 pg 27.0-31.0 L [facility] CenterYgfwdhcJIAVHPEGLZ3904-17-46 20:32:00 Test Item Value Reference Range Interpretation Comments Platelet (test code = Platelet) 371 133-450 N [facility] CenterHkvjqmbJMUYGMIKCF0494-41-85 20:32:00 Test Item Value Reference Range Interpretation Comments Polychrom (test code = Slight (11/26/2012 N Polychrom) 14:32:00) [facility] CenterQaspjupMXOTIITPTE4724-64-09 20:32:00 Test Item Value Reference Range Interpretation Comments Polychrom (test code = Slight (11/26/2012 N Polychrom) 14:32:00) [facility] CenterBavdzfgOLOAZXIKUF5258-38-69 20:32:00 Test Item Value Reference Range Interpretation Comments Large Plt (test code = Slight *ABN*(11/26/2012 A Large Plt) 14:32:00) [facility] CenterFokgeklVFENIQLKHP8162-04-23 20:32:00 Test Item Value Reference Range Interpretation Comments Segs (test code = Segs) 73.0 45.0-75.0 N [facility] CenterIdbsqudIWQMUOJIHA8787-90-61 20:32:00 Test Item Value Reference Range Interpretation Comments Eosinophils # (test code 0.2 See_Comment N [A utomated message] The = Eosinophils #) system wh h generated this result tra nsmitted reference range : <=0.5. The reference r megan was not used to int erpret this result as normal/abnormal . [facility] CenterBhxqjwlFEBNILWPAR9704-03-80 20:32:00 Test Item Value Reference Range Interpretation Comments Basophils # (test code 0.1 See_Comment N [Aut omated message] The = Basophils #) system which generated this result tra nsmitted reference range : <=0.2. The reference r megan was not used to int erpret this result as normal/abnormal . [facility] CenterZyblerdIABOUIYORY2852-96-02 20:32:00 Test Item Value Reference Range Interpretation Comments Lymphocytes (test code = Lymphocytes) 21.3 20.0-40.0 N [facility] CenterMpmjhrvBMCEZYUPXM0721-97-77 20:32:00 Test Item Value Reference Range Interpretation Comments Segs-Bands # (test code = Segs-Bands #) 11.4 1.5-8.1 H [facility] CenterYywhwwtHCCBHGLHRJ9983-05-75 20:32:00 Test Item Value Reference Range Interpretation Comments Eosinophils (test code = 1.1 See_Comment N [A utomated message] The Eosinophils) system which ge nerated this result tra nsmitted reference range : <=4.0. The reference r megan was not used to int erpret this result as normal/abnormal . [facility] CenterZpauonjCIPKQBISHJ5859-95-96 20:32:00 Test Item Value Reference Range Interpretation Comments Basophils (test code = 0.5 See_Comment N [Aut omated message] The Basophils) system which ge nerated this result tra nsmitted reference range : <=1.0. The reference r megan was not used to int erpret this result as normal/abnormal . [facility] CenterByqyyumNUONHSVGLT4630-08-74 20:32:00 Test Item Value Reference Range Interpretation Comments Monocytes (test code = Monocytes) 4.1 2.0-12.0 N [facility] CenterJsqqgncIGSVDZPYEE5498-26-22 20:32:00 Test Item Value Reference Range Interpretation Comments Large Plt (test code = Slight *ABN*(11/26/2012 A Large Plt) 14:32:00) [facility] CenterAjiiedeTTFPIVOADX5564-97-03 20:32:00 Test Item Value Reference Range Interpretation Comments Lymphocytes # (test code = Lymphocytes 3.3 1.0-5.5 N #) [facility] CenterCcrcdxjSQCTCSUQFK9350-77-09 20:32:00 Test Item Value Reference Range Interpretation Comments Monocytes # (test code 0.6 See_Comment N [Aut omated message] The = Monocytes #) system which generated this result tra nsmitted reference range : <=0.8. The reference r megan was not used to int erpret this result as normal/abnormal . [facility] CenterOrriitbSOUGCBETRG5082-24-69 20:32:00 Test Item Value Reference Range Interpretation Comments PTT (test code = PTT) 28.5 s 22.9-35.8 N [facility] CenterCmehqakRGDAWVTLFA2250-30-09 20:32:00 Test Item Value Reference Range Interpretation Comments PT (test code = PT) 12.9 s 12.0-14.7 N [facility] CenterKwnbarjFQEKFXINKS2430-34-90 20:32:00 Test Item Value Reference Range Interpretation Comments INR (test code = INR) 0.95 0.85-1.17 N [facility]nn[facility]zdyHKMKJJIIMB3948-25-46 20:32:00 Test Item Value Reference Range Interpretation Comments UA Urobilinogen (test code *NA*(11/26/2012 0.1-1.0 = UA Urobilinogen) 14:32:00) [facility]DfbrjxcWCJXKIIWVB6637-52-42 20:32:00 Test Item Value Reference Range Interpretation Comments UA Bacteria (test code Occasional /HPF = UA Bacteria) *NA*(11/26/2012 14:32:00) [facility]wrusqiZJOVDFMRXM7302-96-97 20:32:00 Test Item Value Reference Range Interpretation Comments UA RBC (test code = 1 See_Comment N [Automa ashanti message] The UA RBC) system which ge nerated this result transmit ashanti reference range : <=2. The reference range was not used to interpr et this result as carmen l/abnormal. [facility]anoUokhujdDJLGXGYYEH6789-72-48 20:32:00 Test Item Value Reference Range Interpretation Comments UA WBC (test code = 3 See_Comment N [Automa ashanti message] The UA WBC) system which ge nerated this result transmit ashanti reference range : <=5. The reference range was not used to interpr et this result as carmen l/abnormal. [facility]anoNgcbkvqOUIBFWBAST0691-75-18 20:32:00 Test Item Value Reference Range Interpretation Comments UA Sq Epi (test code = Many /LPF A UA Sq Epi) *ABN*(11/26/2012 14:32:00) [facility]SghpuwnQGHDLPKCHF3976-29-71 20:32:00 Test Item Value Reference Range Interpretation Comments Segs (test code = Segs) 73.0 45.0-75.0 N [facility] HospitalUdpfyzrLBVUDNAFPU6911-25-79 20:32:00 Test Item Value Reference Range Interpretation Comments Micro? (test code = Performed *NA*(11/26/2012 Micro?) 14:32:00) [facility]QslqgquHWWJFZJWVV1726-83-77 20:32:00 Test Item Value Reference Range Interpretation Comments UA Mucus (test code = Few /LPF UA Mucus) *NA*(11/26/2012 14:32:00) [facility]anoZkqbcviGUYGBZUNGJ4573-62-62 20:32:00 Test Item Value Reference Range Interpretation Comments UA Bili (test code = Negative *NA*(11/26/2012 UA Bili) 14:32:00) [facility]anoOemfajcFDIZZFWBYE0434-19-11 20:32:00 Test Item Value Reference Range Interpretation Comments UA Ketones (test code Negative mg/dL = UA Ketones) *NA*(11/26/2012 14:32:00) [facility] HospitalZqrkdzoCBJTXEHRDU8749-89-69 20:32:00 Test Item Value Reference Range Interpretation Comments UA Protein (test code Negative mg/dL N = UA Protein) (11/26/2012 14:32:00) [facility]EnnfrrzIJMMJVJFKZ5082-70-03 20:32:00 Test Item Value Reference Range Interpretation Comments UA Leuk Est (test code Trace *ABN*(11/26/2012 A = UA Leuk Est) 14:32:00) [facility] HospitalFenamcqROFNAMPLCJ4423-26-31 20:32:00 Test Item Value Reference Range Interpretation Comments UA Nitrite (test code Negative (11/26/2012 N = UA Nitrite) 14:32:00) [facility]anoDefoexwOKOMBJVDLY5998-40-14 20:32:00 Test Item Value Reference Range Interpretation Comments UA Blood (test code = Negative (11/26/2012 N UA Blood) 14:32:00) [facility]anoYsvwsikZXOWKVFTVP9743-78-88 20:32:00 Test Item Value Reference Range Interpretation Comments UA Color (test code = Yellow *NA*(11/26/2012 UA Color) 14:32:00) [facility]anoRubvkfrECRNEMUMLE4649-72-04 20:32:00 Test Item Value Reference Range Interpretation Comments UA pH (test code = UA pH) 6.0 5.0-8.0 N [facility] HospitalNxygaciPLLGXKHJDB2233-26-07 20:32:00 Test Item Value Reference Range Interpretation Comments Eosinophils # (test code 0.2 See_Comment N [A utomated message] The = Eosinophils #) system whic h generated this result tra nsmitted reference range : <=0.5. The reference r megan was not used to int erpret this result as normal/abnormal . [facility] HospitalPqdvfvlWIHEQGZGSC4905-56-53 20:32:00 Test Item Value Reference Range Interpretation Comments UA Spec Grav (test code = UA Spec Grav) 1.016 N [facility]anoCzvrdtuNMMUDQVNXX8013-90-71 20:32:00 Test Item Value Reference Range Interpretation Comments UA Turbidity (test code Slight A = UA Turbidity) *ABN*(11/26/2012 14:32:00) [facility]anoVcgdxyhSKVGXIFDWT8952-54-08 20:32:00 Test Item Value Reference Range Interpretation Comments UA Glucose (test code Negative mg/dL = UA Glucose) *NA*(11/26/2012 14:32:00) [facility] CenterDpgtqzzAYYGPUDZQO7860-36-87 20:32:00 Test Item Value Reference Range Interpretation Comments Basophils # (test code 0.1 See_Comment N [Aut omated message] The = Basophils #) system which generated this result tra nsmitted reference range : <=0.2. The reference r megan was not used to int erpret this result as normal/abnormal . [facility] CenterCptcargXKFFJMWPQE2085-26-69 20:32:00 Test Item Value Reference Range Interpretation Comments Lymphocytes (test code = Lymphocytes) 21.3 20.0-40.0 N [facility] CenterAmjvfgkGHYEBEXSNF6673-58-76 20:32:00 Test Item Value Reference Range Interpretation Comments Segs-Bands # (test code = Segs-Bands #) 11.4 1.5-8.1 H [facility] CenterXiwlhuoALCMHLPFSI9935-48-88 20:32:00 Test Item Value Reference Range Interpretation Comments Eosinophils (test code = 1.1 See_Comment N [A utomated message] The Eosinophils) system which ge nerated this result tra nsmitted reference range : <=4.0. The reference r megan was not used to int erpret this result as normal/abnormal . [facility] CenterLnceqmkSDNNDAMXGG1072-25-58 20:32:00 Test Item Value Reference Range Interpretation Comments Basophils (test code = 0.5 See_Comment N [Aut omated message] The Basophils) system which ge nerated this result tra nsmitted reference range : <=1.0. The reference r megan was not used to int erpret this result as normal/abnormal . [facility] CenterHfrilsoNWGEXFCTMO0328-15-59 20:32:00 Test Item Value Reference Range Interpretation Comments Monocytes (test code = Monocytes) 4.1 2.0-12.0 N [facility] CenterMdlvixtRAHOCVGOCD0557-06-04 20:32:00 Test Item Value Reference Range Interpretation Comments Lymphocytes # (test code = Lymphocytes 3.3 1.0-5.5 N #) [facility] CenterUqhrnryMBWUWNAZZK3170-69-60 20:32:00 Test Item Value Reference Range Interpretation Comments Monocytes # (test code 0.6 See_Comment N [Aut omated message] The = Monocytes #) system which generated this result tra nsmitted reference range : <=0.8. The reference r megan was not used to int erpret this result as normal/abnormal . [facility] CenterTzzcdtmXBARFOPMEV0243-59-56 20:32:00 Test Item Value Reference Range Interpretation Comments PTT (test code = PTT) 28.5 s 22.9-35.8 N [facility] CenterZovgtxaFPBYPQPKKE6593-84-45 20:32:00 Test Item Value Reference Range Interpretation Comments PT (test code = PT) 12.9 s 12.0-14.7 N [facility] CenterLwhgarqTIWPUWRRGN1207-13-35 20:32:00 Test Item Value Reference Range Interpretation Comments INR (test code = INR) 0.95 0.85-1.17 N [facility] CenterQsyzhlaTEHEOZOSM5868-72-99 20:32:00 Test Item Value Reference Range Interpretation Comments A/G Ratio (test code = A/G Ratio) 0.9 0.7-1.6 N [facility] CenterHjrnezxKHWQMAVDC5078-08-09 20:32:00 Test Item Value Reference Range Interpretation Comments Globulin (test code = Globulin) 4.4 2.0-4.0 H [facility] CenterFylyfjkVPIPKCQZW7222-34-34 20:32:00 Test Item Value Reference Range Interpretation Comments AGAP (test code = AGAP) 13.0 10.0-20.0 N [facility] CenterErrviaeJJFDJKYIZ9406-44-20 20:32:00 Test Item Value Reference Range Interpretation Comments B/C Ratio (test code = B/C Ratio) 18 6-25 N [facility] CenterQuswonlXDRUQVKXR8824-30-11 20:32:00 Test Item Value Reference Range Interpretation Comments AST (test code = AST) 24 See_Comment N [Auto mated message] The system which ge nerated this result transmit ashanti reference range : <=37. The reference range was not used to interpr et this result as carmen l/abnormal. [facility] CenterIcobchnLDCTZBPFP0356-55-69 20:32:00 Test Item Value Reference Range Interpretation Comments Bili Total (test code = Bili Total) 0.5 0.2-1.3 N [facility] CenterWemqtpbLLISIQMDS7094-14-29 20:32:00 Test Item Value Reference Range Interpretation Comments Alk Phos (test code = Alk Phos) 98 39-136 N [facility] CenterVppckfiHTEYSMMAU6820-86-42 20:32:00 Test Item Value Reference Range Interpretation Comments ALT (test code = ALT) 37 See_Comment N [Auto mated message] The system which ge nerated this result transmit ashanti reference range : <=65. The reference range was not used to interpr et this result as carmen l/abnormal. [facility] CenterNqoahxiVIGXTNCRM5300-36-41 20:32:00 Test Item Value Reference Range Interpretation Comments Total Protein (test code = Total 8.5 6.4-8.4 H Protein) [facility] CenterEwcuvvrQOHIAGCGF8663-76-60 20:32:00 Test Item Value Reference Range Interpretation Comments eGFR (test code = eGFR) 128 [facility] HospitalAslyddrWGHKPDPCKF2647-34-89 20:32:00 Test Item Value Reference Range Interpretation Comments UA Urobilinogen (test code *NA*(11/26/2012 0.1-1.0 = UA Urobilinogen) 14:32:00) [facility] CenterCpfxyznAHNTOURDZ2517-09-82 20:32:00 Test Item Value Reference Range Interpretation Comments Albumin Lvl (test code = Albumin Lvl) 4.1 3.5-5.0 N [facility] CenterLguhwbaCTXLOUYGM3774-56-73 20:32:00 Test Item Value Reference Range Interpretation Comments Chloride Lvl (test code = Chloride Lvl) 100 95-109 N [facility] CenterWehhpnoBMXHRCLDP0906-62-65 20:32:00 Test Item Value Reference Range Interpretation Comments Potassium Lvl (test code = Potassium 4.0 3.5-5.1 N Lvl) [facility] CenterBudxzsnNMFDWVFPW8399-76-27 20:32:00 Test Item Value Reference Range Interpretation Comments CO2 (test code = CO2) 28 24-32 N [facility] CenterXlmezczCNWIMCZQQ9279-17-44 20:32:00 Test Item Value Reference Range Interpretation Comments Sodium Lvl (test code = Sodium Lvl) 137 135-145 N [facility] CenterTannajeSVZZNKYWI0769-32-01 20:32:00 Test Item Value Reference Range Interpretation Comments Calcium Lvl (test code = Calcium Lvl) 9.1 8.5-10.5 N [facility] CenterYthpnenENKVZOJCI4734-66-91 20:32:00 Test Item Value Reference Range Interpretation Comments Creatinine Lvl (test code = Creatinine 0.5 0.5-1.4 N Lvl) [facility] CenterRsxmunxQIYAXAQOC8428-25-09 20:32:00 Test Item Value Reference Range Interpretation Comments Glucose Lvl (test code = Glucose Lvl) 81 70-99 N [facility] CenterYydyzsfDKXTXNWVN1008-72-69 20:32:00 Test Item Value Reference Range Interpretation Comments BUN (test code = BUN) 9 7-22 N [facility] CenterDmzixscTPVBWHCUR9146-99-34 20:32:00 Test Item Value Reference Range Interpretation Comments Vitamin D 1,25 (OH)2 Total (test code = 52 18-72 Vitamin D 1,25 (OH)2 Total) [facility] HospitalCujupoyBBGNKHUYKX7599-23-12 20:32:00 Test Item Value Reference Range Interpretation Comments UA Bacteria (test code Occasional /HPF = UA Bacteria) *NA*(11/26/2012 14:32:00) [facility] CenterRwwfqhyZNMOBRFIX9876-17-68 20:32:00 Test Item Value Reference Range Interpretation Comments Vitamin D2 1,25 (OH)2 (test code = no gt Vitamin D2 1,25 (OH)2) [facility] CenterBkosddyWKNKXVKKX7795-63-65 20:32:00 Test Item Value Reference Range Interpretation Comments Vitamin D3 1,25 (OH)2 (test code = 52 Vitamin D3 1,25 (OH)2) [facility] CenterChmtdnzJETKDJNKMB7395-84-00 20:32:00 Test Item Value Reference Range Interpretation Comments MPV (test code = MPV) 8.7 7.4-10.4 N [facility] CenterEbcgixzOAYSOIZKYO8935-02-03 20:32:00 Test Item Value Reference Range Interpretation Comments Hgb (test code = Hgb) 12.0 12.0-16.0 N [facility] CenterYphxcpdDZSJTNAGFY5604-40-73 20:32:00 Test Item Value Reference Range Interpretation Comments RBC (test code = RBC) 4.51 4.20-5.40 N [facility] CenterDdvmjivLWQMZARVZW2808-08-33 20:32:00 Test Item Value Reference Range Interpretation Comments WBC (test code = WBC) 15.6 3.7-10.4 H [facility] CenterCvydrdjIOWJQGVZOX2496-91-88 20:32:00 Test Item Value Reference Range Interpretation Comments Hct (test code = Hct) 37.0 36.0-48.0 N [facility] CenterPaylirsLHGMYLWBBF6456-72-11 20:32:00 Test Item Value Reference Range Interpretation Comments MCV (test code = MCV) 82.0 81.0-99.0 N [facility]EdvndpdROFIKTYREK1176-29-67 20:32:00 Test Item Value Reference Range Interpretation Comments RDW (test code = RDW) 15.9 11.5-14.5 H [facility] CenterBthluxtGFLSKVTCKL7181-72-68 20:32:00 Test Item Value Reference Range Interpretation Comments MCHC (test code = MCHC) 32.3 32.0-36.0 N [facility] HospitalDsfwqppCTLOCEFGJY8154-28-20 20:32:00 Test Item Value Reference Range Interpretation Comments UA RBC (test code = 1 See_Comment N [Automa ashanti message] The UA RBC) system which ge nerated this result transmit ashanti reference range : <=2. The reference range was not used to interpr et this result as carmen l/abnormal. [facility] CenterUarrlegSJSJTKLVDA4387-45-12 20:32:00 Test Item Value Reference Range Interpretation Comments MCH (test code = MCH) 26.5 pg 27.0-31.0 L [facility] CenterZcemdikDQJJJGIKLQ4364-92-41 20:32:00 Test Item Value Reference Range Interpretation Comments Platelet (test code = Platelet) 371 133-450 N [facility] CenterUfzdntdKKATLQYVVR6665-73-83 20:32:00 Test Item Value Reference Range Interpretation Comments Polychrom (test code = Slight (11/26/2012 N Polychrom) 14:32:00) [facility] CenterFgvmnraXYRBSUMNRI7337-59-07 20:32:00 Test Item Value Reference Range Interpretation Comments Large Plt (test code = Slight *ABN*(11/26/2012 A Large Plt) 14:32:00) [facility] CenterMpwzholHQHDWUIEJS6156-95-99 20:32:00 Test Item Value Reference Range Interpretation Comments Segs (test code = Segs) 73.0 45.0-75.0 N [facility] CenterAtjkpsfQNCOKMCYVC9789-96-91 20:32:00 Test Item Value Reference Range Interpretation Comments Eosinophils # (test code 0.2 See_Comment N [A utomated message] The = Eosinophils #) system whic h generated this result tra nsmitted reference range : <=0.5. The reference r megan was not used to int erpret this result as normal/abnormal . [facility] CenterCwnsxfaXOJOFUMLCA4046-53-49 20:32:00 Test Item Value Reference Range Interpretation Comments Basophils # (test code 0.1 See_Comment N [Aut omated message] The = Basophils #) system which generated this result tra nsmitted reference range : <=0.2. The reference r megan was not used to int erpret this result as normal/abnormal . [facility] CenterDsudczcUINNHGCSWO9226-21-10 20:32:00 Test Item Value Reference Range Interpretation Comments Lymphocytes (test code = Lymphocytes) 21.3 20.0-40.0 N [facility] CenterBlidhrfZZHVEIYTJM4891-76-83 20:32:00 Test Item Value Reference Range Interpretation Comments Segs-Bands # (test code = Segs-Bands #) 11.4 1.5-8.1 H [facility] CenterOceykisRBVRLGNWSZ0688-15-35 20:32:00 Test Item Value Reference Range Interpretation Comments Eosinophils (test code = 1.1 See_Comment N [A utomated message] The Eosinophils) system which ge nerated this result tra nsmitted reference range : <=4.0. The reference r megan was not used to int erpret this result as normal/abnormal . [facility] HospitalDkvinpsSZZGDBSQET6041-11-13 20:32:00 Test Item Value Reference Range Interpretation Comments UA WBC (test code = 3 See_Comment N [Automa ashanti message] The UA WBC) system which ge nerated this result transmit ashanti reference range : <=5. The reference range was not used to interpr et this result as carmen l/abnormal. [facility] CenterKauugdtBSGYPILVMW1842-02-96 20:32:00 Test Item Value Reference Range Interpretation Comments Basophils (test code = 0.5 See_Comment N [Aut omated message] The Basophils) system which ge nerated this result tra nsmitted reference range : <=1.0. The reference r megan was not used to int erpret this result as normal/abnormal . [facility]XwvjiysWKREEWQMLM5524-05-51 20:32:00 Test Item Value Reference Range Interpretation Comments Monocytes (test code = Monocytes) 4.1 2.0-12.0 N [facility] CenterQlrnoshBZWUOTRYQG1967-24-94 20:32:00 Test Item Value Reference Range Interpretation Comments Lymphocytes # (test code = Lymphocytes 3.3 1.0-5.5 N #) [facility] CenterOgwgrzpIVXFOMATQE2252-61-81 20:32:00 Test Item Value Reference Range Interpretation Comments Monocytes # (test code 0.6 See_Comment N [Aut omated message] The = Monocytes #) system which generated this result tra nsmitted reference range : <=0.8. The reference r megan was not used to int erpret this result as normal/abnormal . [facility] CenterCudfxyuLVIWIWOMNH4445-27-69 20:32:00 Test Item Value Reference Range Interpretation Comments PTT (test code = PTT) 28.5 s 22.9-35.8 N [facility] CenterBvcstpiDUUARMZOTQ5190-89-30 20:32:00 Test Item Value Reference Range Interpretation Comments PT (test code = PT) 12.9 s 12.0-14.7 N [facility] CenterHaxzhrnPZQGCHLHPV6814-55-50 20:32:00 Test Item Value Reference Range Interpretation Comments INR (test code = INR) 0.95 0.85-1.17 N [facility]VwzsqrsUGMNNQFYXW0123-55-94 20:32:00 Test Item Value Reference Range Interpretation Comments UA Urobilinogen (test code *NA*(11/26/2012 0.1-1.0 = UA Urobilinogen) 14:32:00) [facility] HospitalMxbqdyhXWLDPFNOFP1696-01-08 20:32:00 Test Item Value Reference Range Interpretation Comments UA Bacteria (test code Occasional /HPF = UA Bacteria) *NA*(11/26/2012 14:32:00) [facility] HospitalGuanuqgTTYMBKZSTF0479-04-14 20:32:00 Test Item Value Reference Range Interpretation Comments UA RBC (test code = 1 See_Comment N [Automa ashanti message] The UA RBC) system which ge nerated this result transmit ashanti reference range : <=2. The reference range was not used to interpr et this result as carmen l/abnormal. [facility] HospitalNysvtcnASLNWFFRES2356-29-35 20:32:00 Test Item Value Reference Range Interpretation Comments UA Sq Epi (test code = Many /LPF A UA Sq Epi) *ABN*(11/26/2012 14:32:00) [facility] HospitalUuxyinoJRJDFKMVDE4014-07-48 20:32:00 Test Item Value Reference Range Interpretation Comments UA WBC (test code = 3 See_Comment N [Automa ashanti message] The UA WBC) system which ge nerated this result transmit ashanti reference range : <=5. The reference range was not used to interpr et this result as carmen l/abnormal. [facility]PmuxeuuXHAIBUWXFT3665-53-51 20:32:00 Test Item Value Reference Range Interpretation Comments UA Sq Epi (test code = Many /LPF A UA Sq Epi) *ABN*(11/26/2012 14:32:00) [facility]EoxiedcESGSSJPLTW7803-78-02 20:32:00 Test Item Value Reference Range Interpretation Comments Micro? (test code = Performed *NA*(11/26/2012 Micro?) 14:32:00) [facility]anoWqawwaaRNBOYIVFOV1074-99-68 20:32:00 Test Item Value Reference Range Interpretation Comments UA Mucus (test code = Few /LPF UA Mucus) *NA*(11/26/2012 14:32:00) [facility]anoEhlspnmPAHRYAWFGG2559-80-58 20:32:00 Test Item Value Reference Range Interpretation Comments UA Bili (test code = Negative *NA*(11/26/2012 UA Bili) 14:32:00) [facility]anoWodedlxUFDVCKAITO4768-91-89 20:32:00 Test Item Value Reference Range Interpretation Comments UA Ketones (test code Negative mg/dL = UA Ketones) *NA*(11/26/2012 14:32:00) [facility]anoTbyihcdWTNZDPSXPT3900-92-66 20:32:00 Test Item Value Reference Range Interpretation Comments UA Protein (test code Negative mg/dL N = UA Protein) (11/26/2012 14:32:00) [facility]anoIohsmdwPLGDLVUSZJ6940-26-66 20:32:00 Test Item Value Reference Range Interpretation Comments UA Leuk Est (test code Trace *ABN*(11/26/2012 A = UA Leuk Est) 14:32:00) [facility] HospitalOsmotjpQRYZRBPOQE3941-78-52 20:32:00 Test Item Value Reference Range Interpretation Comments UA Nitrite (test code Negative (11/26/2012 N = UA Nitrite) 14:32:00) [facility]anoDlybclgKVZBMTWSLK2661-16-43 20:32:00 Test Item Value Reference Range Interpretation Comments UA Blood (test code = Negative (11/26/2012 N UA Blood) 14:32:00) [facility]anoJrzvdxsRSTCNIHULB9134-69-78 20:32:00 Test Item Value Reference Range Interpretation Comments Micro? (test code = Performed *NA*(11/26/2012 Micro?) 14:32:00) [facility] HospitalVxrsedaRBDZQBTBJC7469-28-81 20:32:00 Test Item Value Reference Range Interpretation Comments UA Color (test code = Yellow *NA*(11/26/2012 UA Color) 14:32:00) [facility] HospitalSfuhryiPRARDQSBMY3668-08-91 20:32:00 Test Item Value Reference Range Interpretation Comments UA pH (test code = UA pH) 6.0 5.0-8.0 N [facility] HospitalYdisnhuYGKFCPQRKG3473-92-96 20:32:00 Test Item Value Reference Range Interpretation Comments UA Spec Grav (test code = UA Spec Grav) 1.016 N [facility] HospitalXsnehzrFEYVMNPPOD5320-68-50 20:32:00 Test Item Value Reference Range Interpretation Comments UA Turbidity (test code Slight A = UA Turbidity) *ABN*(11/26/2012 14:32:00) [facility] HospitalPjsaigmZOVFEEUNDX2543-20-25 20:32:00 Test Item Value Reference Range Interpretation Comments UA Glucose (test code Negative mg/dL = UA Glucose) *NA*(11/26/2012 14:32:00) [facility] HospitalHwruemhTXJGXUAKBD1252-52-83 20:32:00 Test Item Value Reference Range Interpretation Comments UA Mucus (test code = Few /LPF UA Mucus) *NA*(11/26/2012 14:32:00) [facility] HospitalHsabhgtHBUYYMAIFS4732-00-77 20:32:00 Test Item Value Reference Range Interpretation Comments UA Bili (test code = Negative *NA*(11/26/2012 UA Bili) 14:32:00) [facility] HospitalCtjgqkpRTJKTBNPGU5522-04-48 20:32:00 Test Item Value Reference Range Interpretation Comments UA Ketones (test code Negative mg/dL = UA Ketones) *NA*(11/26/2012 14:32:00) [facility] HospitalYrjaksuNEACCZWEHL7537-21-58 20:32:00 Test Item Value Reference Range Interpretation Comments UA Protein (test code Negative mg/dL N = UA Protein) (11/26/2012 14:32:00) [facility] HospitalWqgiumgUEBGGLCSZA8326-97-00 20:32:00 Test Item Value Reference Range Interpretation Comments UA Leuk Est (test code Trace *ABN*(11/26/2012 A = UA Leuk Est) 14:32:00) [facility] HospitalWhhlqqcOWJEMXFLOM9058-97-25 20:32:00 Test Item Value Reference Range Interpretation Comments UA Nitrite (test code Negative (11/26/2012 N = UA Nitrite) 14:32:00) [facility]anoHjndznxXJKDVKKBBD7470-28-02 20:32:00 Test Item Value Reference Range Interpretation Comments UA Blood (test code = Negative (11/26/2012 N UA Blood) 14:32:00) [facility]anoVfdiurcSWIALEWVYT0789-83-70 20:32:00 Test Item Value Reference Range Interpretation Comments UA Color (test code = Yellow *NA*(11/26/2012 UA Color) 14:32:00) [facility] HospitalVkeyotqWCOUFJDZBQ9659-54-73 20:32:00 Test Item Value Reference Range Interpretation Comments UA pH (test code = UA pH) 6.0 5.0-8.0 N [facility] HospitalBzcbxtmAIJUSWLZJE2223-89-80 20:32:00 Test Item Value Reference Range Interpretation Comments UA Spec Grav (test code = UA Spec Grav) 1.016 N [facility] HospitalGsnjdkzIQYUZEBHBC3565-75-63 20:32:00 Test Item Value Reference Range Interpretation Comments UA Turbidity (test code Slight A = UA Turbidity) *ABN*(11/26/2012 14:32:00) [facility] CenterJsupacbRHDYRGLWI8499-01-06 20:32:00 Test Item Value Reference Range Interpretation Comments A/G Ratio (test code = A/G Ratio) 0.9 0.7-1.6 N [facility] CenterThapymrSZWALLIOH4682-03-70 20:32:00 Test Item Value Reference Range Interpretation Comments Globulin (test code = Globulin) 4.4 2.0-4.0 H [facility] CenterWxunlbgVUZWRLATQ0386-22-57 20:32:00 Test Item Value Reference Range Interpretation Comments AGAP (test code = AGAP) 13.0 10.0-20.0 N [facility] CenterQrxfrheNXTRRWSKE3675-60-41 20:32:00 Test Item Value Reference Range Interpretation Comments B/C Ratio (test code = B/C Ratio) 18 6-25 N [facility] CenterNgazowaXLIFJNSMG8414-15-95 20:32:00 Test Item Value Reference Range Interpretation Comments AST (test code = AST) 24 See_Comment N [Auto mated message] The system which ge nerated this result transmit ashanti reference range : <=37. The reference range was not used to interpr et this result as carmen l/abnormal. [facility]XmbdmfaDLEWFMFKU7610-64-38 20:32:00 Test Item Value Reference Range Interpretation Comments Bili Total (test code = Bili Total) 0.5 0.2-1.3 N [facility] CenterGhdrhgaCYEOWWJJQ6296-08-27 20:32:00 Test Item Value Reference Range Interpretation Comments Alk Phos (test code = Alk Phos) 98 39-136 N [facility] CenterJdzffwiUYIECICFV0720-42-60 20:32:00 Test Item Value Reference Range Interpretation Comments ALT (test code = ALT) 37 See_Comment N [Auto mated message] The system which ge nerated this result transmit ashanti reference range : <=65. The reference range was not used to interpr et this result as carmen l/abnormal. [facility] HospitalQtqljmpEZCQZNGPMZ2250-03-89 20:32:00 Test Item Value Reference Range Interpretation Comments UA Glucose (test code Negative mg/dL = UA Glucose) *NA*(11/26/2012 14:32:00) [facility] CenterOcbsageIROCFHQEB0790-59-85 20:32:00 Test Item Value Reference Range Interpretation Comments Total Protein (test code = Total 8.5 6.4-8.4 H Protein) [facility] CenterUfixjojYCEKPLSMH9384-21-83 20:32:00 Test Item Value Reference Range Interpretation Comments eGFR (test code = eGFR) 128 [facility] CenterXsogjizNBXPDAEDB5741-27-06 20:32:00 Test Item Value Reference Range Interpretation Comments Albumin Lvl (test code = Albumin Lvl) 4.1 3.5-5.0 N [facility] CenterOaeadrbTFQGXYCSM4034-56-52 20:32:00 Test Item Value Reference Range Interpretation Comments Chloride Lvl (test code = Chloride Lvl) 100 95-109 N [facility] CenterFlqdnkeGEXEUTGRI2783-25-45 20:32:00 Test Item Value Reference Range Interpretation Comments Potassium Lvl (test code = Potassium 4.0 3.5-5.1 N Lvl) [facility] CenterHprumxoNXQYCRWCZ0673-08-15 20:32:00 Test Item Value Reference Range Interpretation Comments CO2 (test code = CO2) 28 24-32 N [facility] CenterYsurbtsHKVZKPVLY9817-51-74 20:32:00 Test Item Value Reference Range Interpretation Comments Sodium Lvl (test code = Sodium Lvl) 137 135-145 N [facility] CenterHgknbhnAOLYRYDUP2418-30-31 20:32:00 Test Item Value Reference Range Interpretation Comments Calcium Lvl (test code = Calcium Lvl) 9.1 8.5-10.5 N [facility] CenterGbydmhmMAUODBXHQ9466-56-22 20:32:00 Test Item Value Reference Range Interpretation Comments Creatinine Lvl (test code = Creatinine 0.5 0.5-1.4 N Lvl) [facility] CenterTkozlugGRWCRCTTJ1822-37-79 20:32:00 Test Item Value Reference Range Interpretation Comments Glucose Lvl (test code = Glucose Lvl) 81 70-99 N [facility] CenterMzaordkUTSWSDAQC2054-79-87 20:32:00 Test Item Value Reference Range Interpretation Comments BUN (test code = BUN) 9 7-22 N [facility] CenterMzscqopGDIFKECPM4888-74-18 20:32:00 Test Item Value Reference Range Interpretation Comments Vitamin D 1,25 (OH)2 Total (test code = 52 18-72 Vitamin D 1,25 (OH)2 Total) [facility] CenterLcanoovKXYZYIURM5836-79-98 20:32:00 Test Item Value Reference Range Interpretation Comments Vitamin D2 1,25 (OH)2 (test code = no gt Vitamin D2 1,25 (OH)2) [facility] CenterLvollguQPITWFBEH2847-94-74 20:32:00 Test Item Value Reference Range Interpretation Comments Vitamin D3 1,25 (OH)2 (test code = 52 Vitamin D3 1,25 (OH)2) [facility] CenterJxyquzcJWIBSBKAXW6268-59-42 20:32:00 Test Item Value Reference Range Interpretation Comments MPV (test code = MPV) 8.7 7.4-10.4 N [facility] CenterDtjoytoELBPWJBEPU2035-94-95 20:32:00 Test Item Value Reference Range Interpretation Comments Hgb (test code = Hgb) 12.0 12.0-16.0 N [facility] CenterWxsgkynAOGGIZZFCR7940-85-61 20:32:00 Test Item Value Reference Range Interpretation Comments RBC (test code = RBC) 4.51 4.20-5.40 N [facility] CenterPghwozmXAOCIEGLPC1287-64-72 20:32:00 Test Item Value Reference Range Interpretation Comments WBC (test code = WBC) 15.6 3.7-10.4 H [facility] CenterSqjdtarKPHCUFJRZA9549-40-41 20:32:00 Test Item Value Reference Range Interpretation Comments Hct (test code = Hct) 37.0 36.0-48.0 N [facility] CenterZavxbznRFPNXGAHHE7968-87-84 20:32:00 Test Item Value Reference Range Interpretation Comments MCV (test code = MCV) 82.0 81.0-99.0 N [facility] CenterZykqeueCIHWPVEUSZ2577-95-78 20:32:00 Test Item Value Reference Range Interpretation Comments RDW (test code = RDW) 15.9 11.5-14.5 H [facility] CenterMbdilqqXRTXIUVEYV4184-70-60 20:32:00 Test Item Value Reference Range Interpretation Comments MCHC (test code = MCHC) 32.3 32.0-36.0 N [facility] CenterJpwfjihLYEDVZHIWT4325-75-38 20:32:00 Test Item Value Reference Range Interpretation Comments MCH (test code = MCH) 26.5 pg 27.0-31.0 L [facility] CenterYgkpivpEDTFABNKKN0188-96-09 20:32:00 Test Item Value Reference Range Interpretation Comments Platelet (test code = Platelet) 371 133-450 N [facility] CenterTdcjfehOVIPUJPXSV9700-87-33 20:32:00 Test Item Value Reference Range Interpretation Comments Polychrom (test code = Slight (11/26/2012 N Polychrom) 14:32:00) [facility] CenterZjmqfwxXEJMMXUZGC6338-08-70 20:32:00 Test Item Value Reference Range Interpretation Comments Large Plt (test code = Slight *ABN*(11/26/2012 A Large Plt) 14:32:00) [facility] CenterHeheozgBEGLLKDSMI1352-50-85 20:32:00 Test Item Value Reference Range Interpretation Comments Segs (test code = Segs) 73.0 45.0-75.0 N [facility] CenterJzywmufFGFKNRCFKZ4263-88-30 20:32:00 Test Item Value Reference Range Interpretation Comments Eosinophils # (test code 0.2 See_Comment N [A utomated message] The = Eosinophils #) system whic h generated this result tra nsmitted reference range : <=0.5. The reference r megan was not used to int erpret this result as normal/abnormal . [facility] CenterRmsthfuZPIYGOLTIP7994-99-24 20:32:00 Test Item Value Reference Range Interpretation Comments Basophils # (test code 0.1 See_Comment N [Aut omated message] The = Basophils #) system which generated this result tra nsmitted reference range : <=0.2. The reference r megan was not used to int erpret this result as normal/abnormal . [facility] CenterCgplepwYKBDPVBGTH7918-90-44 20:32:00 Test Item Value Reference Range Interpretation Comments Lymphocytes (test code = Lymphocytes) 21.3 20.0-40.0 N [facility] CenterHaqjdmbOTGCWNRMCM6820-90-97 20:32:00 Test Item Value Reference Range Interpretation Comments Segs-Bands # (test code = Segs-Bands #) 11.4 1.5-8.1 H [facility] CenterPacmqpvESDALMSSEW5118-20-44 20:32:00 Test Item Value Reference Range Interpretation Comments Eosinophils (test code = 1.1 See_Comment N [A utomated message] The Eosinophils) system which ge nerated this result tra nsmitted reference range : <=4.0. The reference r megan was not used to int erpret this result as normal/abnormal . [facility] CenterSzkrydvPXAFRVIZFY6456-27-94 20:32:00 Test Item Value Reference Range Interpretation Comments Basophils (test code = 0.5 See_Comment N [Aut omated message] The Basophils) system which ge nerated this result tra nsmitted reference range : <=1.0. The reference r megan was not used to int erpret this result as normal/abnormal . [facility] CenterDquiqozHLRUXWTBKB0084-50-76 20:32:00 Test Item Value Reference Range Interpretation Comments Monocytes (test code = Monocytes) 4.1 2.0-12.0 N [facility] CenterNohrayrDTQRNOPBGL2925-63-70 20:32:00 Test Item Value Reference Range Interpretation Comments Lymphocytes # (test code = Lymphocytes 3.3 1.0-5.5 N #) [facility] CenterSkydenkJRUPMPGQTV8205-04-69 20:32:00 Test Item Value Reference Range Interpretation Comments Monocytes # (test code 0.6 See_Comment N [Aut omated message] The = Monocytes #) system which generated this result tra nsmitted reference range : <=0.8. The reference r megan was not used to int erpret this result as normal/abnormal . [facility] CenterXavnssbJTAKHUKLHU9360-33-78 20:32:00 Test Item Value Reference Range Interpretation Comments PTT (test code = PTT) 28.5 s 22.9-35.8 N [facility] CenterPlmnysxQDBBJTHGHT9868-14-98 20:32:00 Test Item Value Reference Range Interpretation Comments PT (test code = PT) 12.9 s 12.0-14.7 N [facility] CenterKlpaqdaAQFINMEUWW3790-71-38 20:32:00 Test Item Value Reference Range Interpretation Comments INR (test code = INR) 0.95 0.85-1.17 N [facility]ZfikcqyEVKFQDMLMD4634-09-46 20:32:00 Test Item Value Reference Range Interpretation Comments UA Urobilinogen (test code *NA*(11/26/2012 0.1-1.0 = UA Urobilinogen) 14:32:00) [facility]anoEngtgfwFOFMTKJKMH9164-06-98 20:32:00 Test Item Value Reference Range Interpretation Comments UA Bacteria (test code Occasional /HPF = UA Bacteria) *NA*(11/26/2012 14:32:00) [facility] HospitalElfbydmLLEGDEYWOB6041-75-50 20:32:00 Test Item Value Reference Range Interpretation Comments UA RBC (test code = 1 See_Comment N [Automa ashanti message] The UA RBC) system which ge nerated this result transmit ashanti reference range : <=2. The reference range was not used to interpr et this result as carmen l/abnormal. [facility] HospitalEqpgkedQXGOSUVJEQ2376-20-38 20:32:00 Test Item Value Reference Range Interpretation Comments UA WBC (test code = 3 See_Comment N [Automa ashanti message] The UA WBC) system which ge nerated this result transmit ashanti reference range : <=5. The reference range was not used to interpr et this result as carmen l/abnormal. [facility]anoFtuwmruTMNUBWXCFP4397-30-79 20:32:00 Test Item Value Reference Range Interpretation Comments UA Sq Epi (test code = Many /LPF A UA Sq Epi) *ABN*(11/26/2012 14:32:00) [facility] HospitalQugargnTZSRICLUJA5373-20-70 20:32:00 Test Item Value Reference Range Interpretation Comments Micro? (test code = Performed *NA*(11/26/2012 Micro?) 14:32:00) [facility] HospitalItneowaZZNOUGDNMG8491-20-92 20:32:00 Test Item Value Reference Range Interpretation Comments UA Mucus (test code = Few /LPF UA Mucus) *NA*(11/26/2012 14:32:00) [facility] HospitalPtaswjkYDKFUYJZFU6647-38-64 20:32:00 Test Item Value Reference Range Interpretation Comments UA Bili (test code = Negative *NA*(11/26/2012 UA Bili) 14:32:00) [facility] HospitalAmvqwizRQOAQSIRSD5640-90-42 20:32:00 Test Item Value Reference Range Interpretation Comments UA Ketones (test code Negative mg/dL = UA Ketones) *NA*(11/26/2012 14:32:00) [facility] HospitalEsewwhuVDLSNEQZPP1415-43-40 20:32:00 Test Item Value Reference Range Interpretation Comments UA Protein (test code Negative mg/dL N = UA Protein) (11/26/2012 14:32:00) [facility] HospitalWrhwqdhOZNIFJIGSK9931-88-18 20:32:00 Test Item Value Reference Range Interpretation Comments UA Leuk Est (test code Trace *ABN*(11/26/2012 A = UA Leuk Est) 14:32:00) [facility] HospitalRaouklmZPTFGYEERE2994-49-78 20:32:00 Test Item Value Reference Range Interpretation Comments UA Nitrite (test code Negative (11/26/2012 N = UA Nitrite) 14:32:00) [facility] HospitalRxdzartAYIQKXGPWR2069-51-44 20:32:00 Test Item Value Reference Range Interpretation Comments UA Blood (test code = Negative (11/26/2012 N UA Blood) 14:32:00) [facility] HospitalAgsdfyjPIQTTASBRJ0738-11-11 20:32:00 Test Item Value Reference Range Interpretation Comments UA Color (test code = Yellow *NA*(11/26/2012 UA Color) 14:32:00) [facility] HospitalJtmiarlATTRLYHJXF8435-07-03 20:32:00 Test Item Value Reference Range Interpretation Comments UA pH (test code = UA pH) 6.0 5.0-8.0 N [facility]anoNyjrqglSOFMMLFITA7806-21-06 20:32:00 Test Item Value Reference Range Interpretation Comments UA Spec Grav (test code = UA Spec Grav) 1.016 N [facility]anoYfdeldyRGWCUUEZLQ6938-63-54 20:32:00 Test Item Value Reference Range Interpretation Comments UA Turbidity (test code Slight A = UA Turbidity) *ABN*(11/26/2012 14:32:00) [facility] HospitalWfgwhdpTJWLBLJZZI2418-43-97 20:32:00 Test Item Value Reference Range Interpretation Comments UA Glucose (test code Negative mg/dL = UA Glucose) *NA*(11/26/2012 14:32:00) [facility] CenterKhtawwbWBPIJGSXW9209-08-56 20:32:00 Test Item Value Reference Range Interpretation Comments A/G Ratio (test code = A/G Ratio) 0.9 0.7-1.6 N [facility] CenterSffhbvjNWYABJRGS6607-48-43 20:32:00 Test Item Value Reference Range Interpretation Comments Globulin (test code = Globulin) 4.4 2.0-4.0 H [facility] CenterZnlobmfEAANNVATI2031-43-54 20:32:00 Test Item Value Reference Range Interpretation Comments AGAP (test code = AGAP) 13.0 10.0-20.0 N [facility] CenterMrvyppnCWLGBRARH6189-80-60 20:32:00 Test Item Value Reference Range Interpretation Comments B/C Ratio (test code = B/C Ratio) 18 6-25 N [facility] CenterRqezsitEYCFATNON5264-11-81 20:32:00 Test Item Value Reference Range Interpretation Comments AST (test code = AST) 24 See_Comment N [Auto mated message] The system which ge nerated this result transmit ashanti reference range : <=37. The reference range was not used to interpr et this result as carmen l/abnormal. [facility] CenterVjunpekJFVJVFEGK4186-89-07 20:32:00 Test Item Value Reference Range Interpretation Comments Bili Total (test code = Bili Total) 0.5 0.2-1.3 N [facility] CenterJjihujiVFZOOMKNS7643-97-81 20:32:00 Test Item Value Reference Range Interpretation Comments Alk Phos (test code = Alk Phos) 98 39-136 N [facility] CenterNsrablzFQBTKLCPF4451-15-11 20:32:00 Test Item Value Reference Range Interpretation Comments ALT (test code = ALT) 37 See_Comment N [Auto mated message] The system which ge nerated this result transmit ashanti reference range : <=65. The reference range was not used to interpr et this result as carmen l/abnormal. [facility] CenterNwidqwzWKGFMKYVZ2235-61-61 20:32:00 Test Item Value Reference Range Interpretation Comments Total Protein (test code = Total 8.5 6.4-8.4 H Protein) [facility] CenterBmizheyQKRNKBBZG0717-69-24 20:32:00 Test Item Value Reference Range Interpretation Comments eGFR (test code = eGFR) 128 [facility] CenterUsbracaCWLCQWVLG7839-81-50 20:32:00 Test Item Value Reference Range Interpretation Comments Albumin Lvl (test code = Albumin Lvl) 4.1 3.5-5.0 N [facility] CenterRsygxbgWTTDNHHQP4136-39-81 20:32:00 Test Item Value Reference Range Interpretation Comments Chloride Lvl (test code = Chloride Lvl) 100 95-109 N [facility] CenterLttqoohBQQQNKIWG2249-42-57 20:32:00 Test Item Value Reference Range Interpretation Comments Potassium Lvl (test code = Potassium 4.0 3.5-5.1 N Lvl) [facility] CenterMgfgkfyJISMUJQQI8748-44-55 20:32:00 Test Item Value Reference Range Interpretation Comments CO2 (test code = CO2) 28 24-32 N [facility] CenterIfcwqcaJLJZZRROL0746-99-60 20:32:00 Test Item Value Reference Range Interpretation Comments Sodium Lvl (test code = Sodium Lvl) 137 135-145 N [facility] CenterKvxcdohSWOMMHEGR5948-73-47 20:32:00 Test Item Value Reference Range Interpretation Comments Calcium Lvl (test code = Calcium Lvl) 9.1 8.5-10.5 N [facility] CenterGlmapdzPFZBOSNDS6806-30-20 20:32:00 Test Item Value Reference Range Interpretation Comments Creatinine Lvl (test code = Creatinine 0.5 0.5-1.4 N Lvl) [facility] CenterEspxdfjMUELBZPLH3712-33-74 20:32:00 Test Item Value Reference Range Interpretation Comments Glucose Lvl (test code = Glucose Lvl) 81 70-99 N [facility]ImrltqnSSOQYPMZT3607-97-47 20:32:00 Test Item Value Reference Range Interpretation Comments BUN (test code = BUN) 9 7-22 N [facility]IdxjwocNWCWAVGON7010-24-56 20:32:00 Test Item Value Reference Range Interpretation Comments Vitamin D 1,25 (OH)2 Total (test code = 52 18-72 Vitamin D 1,25 (OH)2 Total) [facility] CenterOrvskziZRAIRLECW0247-61-73 20:32:00 Test Item Value Reference Range Interpretation Comments Vitamin D2 1,25 (OH)2 (test code = no gt Vitamin D2 1,25 (OH)2) [facility] CenterQqspithCHJXUETDI8651-70-06 20:32:00 Test Item Value Reference Range Interpretation Comments Vitamin D3 1,25 (OH)2 (test code = 52 Vitamin D3 1,25 (OH)2) [facility]CljkxruGOBNIPXUBA8765-48-72 20:32:00 Test Item Value Reference Range Interpretation Comments MPV (test code = MPV) 8.7 7.4-10.4 N [facility] CenterAggrqedVOCEMRJVGF5027-05-75 20:32:00 Test Item Value Reference Range Interpretation Comments Hgb (test code = Hgb) 12.0 12.0-16.0 N [facility] CenterEzrwsjmMGBNKKUAOC9390-29-30 20:32:00 Test Item Value Reference Range Interpretation Comments RBC (test code = RBC) 4.51 4.20-5.40 N [facility] CenterGmxtoudDSJBRVONHX9202-93-63 20:32:00 Test Item Value Reference Range Interpretation Comments WBC (test code = WBC) 15.6 3.7-10.4 H [facility] CenterIusdkrrGZHGCWAZXA8074-11-98 20:32:00 Test Item Value Reference Range Interpretation Comments Hct (test code = Hct) 37.0 36.0-48.0 N [facility] CenterVjytfkdBEEECPQRRI6819-77-83 20:32:00 Test Item Value Reference Range Interpretation Comments MCV (test code = MCV) 82.0 81.0-99.0 N [facility] CenterJisatgzSJHAGLUHFA3828-73-30 20:32:00 Test Item Value Reference Range Interpretation Comments RDW (test code = RDW) 15.9 11.5-14.5 H [facility] CenterVclgeaoQLLNGHNKTQ3711-00-03 20:32:00 Test Item Value Reference Range Interpretation Comments MCHC (test code = MCHC) 32.3 32.0-36.0 N [facility] CenterHohivmdIEROSHQZQY9883-92-48 20:32:00 Test Item Value Reference Range Interpretation Comments MCH (test code = MCH) 26.5 pg 27.0-31.0 L [facility] CenterIafmqsaRWJTSRYWCV7665-65-23 20:32:00 Test Item Value Reference Range Interpretation Comments Platelet (test code = Platelet) 371 133-450 N [facility] CenterNthrgwfKOIOSWCAYX7856-54-95 20:32:00 Test Item Value Reference Range Interpretation Comments Polychrom (test code = Slight (11/26/2012 N Polychrom) 14:32:00) [facility] CenterLmcbvdcXUMVLGBECD0139-56-35 20:32:00 Test Item Value Reference Range Interpretation Comments Large Plt (test code = Slight *ABN*(11/26/2012 A Large Plt) 14:32:00) [facility] CenterEkeuiozXHOCAFQCZC6593-88-34 20:32:00 Test Item Value Reference Range Interpretation Comments Segs (test code = Segs) 73.0 45.0-75.0 N [facility] CenterQscfbzsASNXKQVRTZ8126-02-35 20:32:00 Test Item Value Reference Range Interpretation Comments Eosinophils # (test code 0.2 See_Comment N [A utomated message] The = Eosinophils #) system whic h generated this result tra nsmitted reference range : <=0.5. The reference r megan was not used to int erpret this result as normal/abnormal . [facility] CenterAfgtmouRPGOQQXTOS5996-06-48 20:32:00 Test Item Value Reference Range Interpretation Comments Basophils # (test code 0.1 See_Comment N [Aut omated message] The = Basophils #) system which generated this result tra nsmitted reference range : <=0.2. The reference r megan was not used to int erpret this result as normal/abnormal . [facility] CenterHdgvwpxEQNMQLGTVA1017-98-71 20:32:00 Test Item Value Reference Range Interpretation Comments Lymphocytes (test code = Lymphocytes) 21.3 20.0-40.0 N [facility] CenterOdrldcqWIHGWEWRAI7614-14-70 20:32:00 Test Item Value Reference Range Interpretation Comments Segs-Bands # (test code = Segs-Bands #) 11.4 1.5-8.1 H [facility] CenterMrtmttzLNUQNAVEEU8501-47-33 20:32:00 Test Item Value Reference Range Interpretation Comments Eosinophils (test code = 1.1 See_Comment N [A utomated message] The Eosinophils) system which ge nerated this result tra nsmitted reference range : <=4.0. The reference r megan was not used to int erpret this result as normal/abnormal . [facility] CenterOnhhsceMBIDWSWMQH9897-54-73 20:32:00 Test Item Value Reference Range Interpretation Comments Basophils (test code = 0.5 See_Comment N [Aut omated message] The Basophils) system which ge nerated this result tra nsmitted reference range : <=1.0. The reference r megan was not used to int erpret this result as normal/abnormal . [facility] CenterCrdrwmdEFHYUPIEKN2200-22-61 20:32:00 Test Item Value Reference Range Interpretation Comments Monocytes (test code = Monocytes) 4.1 2.0-12.0 N [facility] CenterNefolwnAPBQOPZLUG9296-85-74 20:32:00 Test Item Value Reference Range Interpretation Comments Lymphocytes # (test code = Lymphocytes 3.3 1.0-5.5 N #) [facility] CenterNmvnhcaDLAGPQEWDI5014-26-46 20:32:00 Test Item Value Reference Range Interpretation Comments Monocytes # (test code 0.6 See_Comment N [Aut omated message] The = Monocytes #) system which generated this result tra nsmitted reference range : <=0.8. The reference r megan was not used to int erpret this result as normal/abnormal . [facility] CenterWqodmqeJWHGBOHCKE5856-46-54 20:32:00 Test Item Value Reference Range Interpretation Comments PTT (test code = PTT) 28.5 s 22.9-35.8 N [facility] CenterQhxipmcZACYPNPLNY5297-07-66 20:32:00 Test Item Value Reference Range Interpretation Comments PT (test code = PT) 12.9 s 12.0-14.7 N [facility] CenterPivdtvhHIPISFYSFP1664-92-13 20:32:00 Test Item Value Reference Range Interpretation Comments INR (test code = INR) 0.95 0.85-1.17 N [facility]TkuymmsZDSMEYFDJJ9269-61-57 20:32:00 Test Item Value Reference Range Interpretation Comments UA Urobilinogen (test code *NA*(11/26/2012 0.1-1.0 = UA Urobilinogen) 14:32:00) [facility]NxrwdtkGIUUZRPVJN8538-71-88 20:32:00 Test Item Value Reference Range Interpretation Comments UA Bacteria (test code Occasional /HPF = UA Bacteria) *NA*(11/26/2012 14:32:00) [facility]GivtrqrHBSVTWNDKA3352-29-96 20:32:00 Test Item Value Reference Range Interpretation Comments UA RBC (test code = 1 See_Comment N [Automa ashanti message] The UA RBC) system which ge nerated this result transmit ashanti reference range : <=2. The reference range was not used to interpr et this result as carmen l/abnormal. [facility]anoBydalvvCCMJRPLOLE2508-19-54 20:32:00 Test Item Value Reference Range Interpretation Comments UA WBC (test code = 3 See_Comment N [Automa ashanti message] The UA WBC) system which ge nerated this result transmit ashanti reference range : <=5. The reference range was not used to interpr et this result as carmen l/abnormal. [facility]anoFoqyyckLSLBLHHKMN1466-63-71 20:32:00 Test Item Value Reference Range Interpretation Comments UA Sq Epi (test code = Many /LPF A UA Sq Epi) *ABN*(11/26/2012 14:32:00) [facility]anoGqwpyqrSNRZQXXMSX0790-80-20 20:32:00 Test Item Value Reference Range Interpretation Comments Micro? (test code = Performed *NA*(11/26/2012 Micro?) 14:32:00) [facility]anoCwwitjpDEKGMRMRJS4973-03-60 20:32:00 Test Item Value Reference Range Interpretation Comments UA Mucus (test code = Few /LPF UA Mucus) *NA*(11/26/2012 14:32:00) [facility]anoNxiuvvzTCOGZBWRZO7608-92-84 20:32:00 Test Item Value Reference Range Interpretation Comments UA Bili (test code = Negative *NA*(11/26/2012 UA Bili) 14:32:00) [facility]anoLthutjbYTTTJUVJNB1615-88-13 20:32:00 Test Item Value Reference Range Interpretation Comments UA Ketones (test code Negative mg/dL = UA Ketones) *NA*(11/26/2012 14:32:00) [facility]anoTmysdyjOFIUJDLCID6529-90-29 20:32:00 Test Item Value Reference Range Interpretation Comments UA Protein (test code Negative mg/dL N = UA Protein) (11/26/2012 14:32:00) [facility]anoGzqbnyaVXASVJMQCN3099-40-97 20:32:00 Test Item Value Reference Range Interpretation Comments UA Leuk Est (test code Trace *ABN*(11/26/2012 A = UA Leuk Est) 14:32:00) [facility]anoOhcxsgzPGUJZBRSCS0096-30-45 20:32:00 Test Item Value Reference Range Interpretation Comments UA Nitrite (test code Negative (11/26/2012 N = UA Nitrite) 14:32:00) [facility]QvivhggNKHIHHOVWR1400-74-39 20:32:00 Test Item Value Reference Range Interpretation Comments UA Blood (test code = Negative (11/26/2012 N UA Blood) 14:32:00) [facility] HospitalWtjpxsvWGEOTLQHKT7774-19-15 20:32:00 Test Item Value Reference Range Interpretation Comments UA Color (test code = Yellow *NA*(11/26/2012 UA Color) 14:32:00) [facility] HospitalGatqobdVGWJCTIOSL4655-16-96 20:32:00 Test Item Value Reference Range Interpretation Comments UA pH (test code = UA pH) 6.0 5.0-8.0 N [facility] HospitalSqkaucfRXBDUPZLUL3174-98-58 20:32:00 Test Item Value Reference Range Interpretation Comments UA Spec Grav (test code = UA Spec Grav) 1.016 N [facility] HospitalIqzzrxjCJNWPEAMJC4834-29-84 20:32:00 Test Item Value Reference Range Interpretation Comments UA Turbidity (test code Slight A = UA Turbidity) *ABN*(11/26/2012 14:32:00) [facility] HospitalMistphoPUFSZJESNS7758-20-77 20:32:00 Test Item Value Reference Range Interpretation Comments UA Glucose (test code Negative mg/dL = UA Glucose) *NA*(11/26/2012 14:32:00) [facility] CenterIfspcqrWVOHQCQXI6820-42-63 20:32:00 Test Item Value Reference Range Interpretation Comments A/G Ratio (test code = A/G Ratio) 0.9 0.7-1.6 N [facility] CenterEczhlikGBDEFFWCA2952-07-33 20:32:00 Test Item Value Reference Range Interpretation Comments Globulin (test code = Globulin) 4.4 2.0-4.0 H [facility] CenterCitvymxFUESFIJYW5405-41-01 20:32:00 Test Item Value Reference Range Interpretation Comments AGAP (test code = AGAP) 13.0 10.0-20.0 N [facility] CenterDnloqqvCYPNIQATV9547-11-90 20:32:00 Test Item Value Reference Range Interpretation Comments B/C Ratio (test code = B/C Ratio) 18 6-25 N [facility] CenterCyobhvgAQIRVQUQQ9034-53-96 20:32:00 Test Item Value Reference Range Interpretation Comments AST (test code = AST) 24 See_Comment N [Auto mated message] The system which ge nerated this result transmit ashanti reference range : <=37. The reference range was not used to interpr et this result as carmen l/abnormal. [facility] CenterGjptemyUYXQWFGLJ6361-44-37 20:32:00 Test Item Value Reference Range Interpretation Comments Bili Total (test code = Bili Total) 0.5 0.2-1.3 N [facility] CenterNzhnuhsWTIWMETES7584-93-64 20:32:00 Test Item Value Reference Range Interpretation Comments Alk Phos (test code = Alk Phos) 98 39-136 N [facility] CenterKtoagrlUXEHAPPSF7907-21-28 20:32:00 Test Item Value Reference Range Interpretation Comments ALT (test code = ALT) 37 See_Comment N [Auto mated message] The system which ge nerated this result transmit ashanti reference range : <=65. The reference range was not used to interpr et this result as carmen l/abnormal. [facility] CenterUnjnpawUGSRQKCOI0093-65-98 20:32:00 Test Item Value Reference Range Interpretation Comments Total Protein (test code = Total 8.5 6.4-8.4 H Protein) [facility] CenterYccrviiBSXSCQLRK9733-80-76 20:32:00 Test Item Value Reference Range Interpretation Comments eGFR (test code = eGFR) 128 [facility] CenterLqpllfmULWWTSKBC8967-69-95 20:32:00 Test Item Value Reference Range Interpretation Comments Albumin Lvl (test code = Albumin Lvl) 4.1 3.5-5.0 N [facility] CenterPfolnrkFSECETLIY1144-98-02 20:32:00 Test Item Value Reference Range Interpretation Comments Chloride Lvl (test code = Chloride Lvl) 100 95-109 N [facility] CenterBdlmergKHMBLIFVW7611-43-74 20:32:00 Test Item Value Reference Range Interpretation Comments Potassium Lvl (test code = Potassium 4.0 3.5-5.1 N Lvl) [facility] CenterPxtwgboQQQFYVSYY5898-40-09 20:32:00 Test Item Value Reference Range Interpretation Comments CO2 (test code = CO2) 28 24-32 N [facility] CenterKcyugrjZGWBBDTHA0063-47-29 20:32:00 Test Item Value Reference Range Interpretation Comments Sodium Lvl (test code = Sodium Lvl) 137 135-145 N [facility] CenterZzqgmgfVDQSTLNKS6642-68-15 20:32:00 Test Item Value Reference Range Interpretation Comments Calcium Lvl (test code = Calcium Lvl) 9.1 8.5-10.5 N [facility] CenterKctyhzbNIVKHYMNN1682-07-40 20:32:00 Test Item Value Reference Range Interpretation Comments Creatinine Lvl (test code = Creatinine 0.5 0.5-1.4 N Lvl) [facility] CenterVwszanlZRXTHOCDT4002-18-03 20:32:00 Test Item Value Reference Range Interpretation Comments Glucose Lvl (test code = Glucose Lvl) 81 70-99 N [facility] CenterVbtcuqcFTELIGZYH9237-51-32 20:32:00 Test Item Value Reference Range Interpretation Comments BUN (test code = BUN) 9 7-22 N [facility] CenterHccrpgyYVDKXOGAD8965-89-06 20:32:00 Test Item Value Reference Range Interpretation Comments Vitamin D 1,25 (OH)2 Total (test code = 52 18-72 Vitamin D 1,25 (OH)2 Total) [facility] CenterKvqqhafRJIBXJQOP9807-92-20 20:32:00 Test Item Value Reference Range Interpretation Comments Vitamin D2 1,25 (OH)2 (test code = no gt Vitamin D2 1,25 (OH)2) [facility] CenterPbdmkefVXKIYLBQM0132-41-36 20:32:00 Test Item Value Reference Range Interpretation Comments Vitamin D3 1,25 (OH)2 (test code = 52 Vitamin D3 1,25 (OH)2) [facility] CenterBtwppadNRRTBUYYLP6412-38-42 20:32:00 Test Item Value Reference Range Interpretation Comments MPV (test code = MPV) 8.7 7.4-10.4 N [facility] CenterHubhfynXJVSOMKVVI5858-30-42 20:32:00 Test Item Value Reference Range Interpretation Comments Hgb (test code = Hgb) 12.0 12.0-16.0 N [facility] CenterVclhcogCXIOVEIDKM9085-62-82 20:32:00 Test Item Value Reference Range Interpretation Comments RBC (test code = RBC) 4.51 4.20-5.40 N [facility] CenterJnmuyssEKQWBULGBZ2961-53-44 20:32:00 Test Item Value Reference Range Interpretation Comments WBC (test code = WBC) 15.6 3.7-10.4 H [facility] CenterYkvqvmpRVREPVVXIL8147-21-81 20:32:00 Test Item Value Reference Range Interpretation Comments Hct (test code = Hct) 37.0 36.0-48.0 N [facility] CenterKmcyyglNRDHXOLDFN6663-11-61 20:32:00 Test Item Value Reference Range Interpretation Comments MCV (test code = MCV) 82.0 81.0-99.0 N [facility] CenterBysmkpyVFUICVQHBO6701-65-26 20:32:00 Test Item Value Reference Range Interpretation Comments RDW (test code = RDW) 15.9 11.5-14.5 H [facility] CenterDtdsmhvTLBLGAOVXH4941-15-48 20:32:00 Test Item Value Reference Range Interpretation Comments MCHC (test code = MCHC) 32.3 32.0-36.0 N [facility] CenterCgufxdeETRJVGUWZL7786-38-16 20:32:00 Test Item Value Reference Range Interpretation Comments MCH (test code = MCH) 26.5 pg 27.0-31.0 L [facility] CenterVbtthbtMWPYMIXGSH1622-07-54 20:32:00 Test Item Value Reference Range Interpretation Comments Platelet (test code = Platelet) 371 133-450 N [facility] CenterCuqokbfXZTBBVTZFU2538-46-99 20:32:00 Test Item Value Reference Range Interpretation Comments Polychrom (test code = Slight (11/26/2012 N Polychrom) 14:32:00) [facility] CenterXxlamwjQGTGOPTDFB4894-63-05 20:32:00 Test Item Value Reference Range Interpretation Comments Large Plt (test code = Slight *ABN*(11/26/2012 A Large Plt) 14:32:00) [facility] CenterOnrgknsMFNQURKTDR4636-26-50 20:32:00 Test Item Value Reference Range Interpretation Comments Segs (test code = Segs) 73.0 45.0-75.0 N [facility] CenterFhzxjskKTUCMLUVNC2662-75-78 20:32:00 Test Item Value Reference Range Interpretation Comments Eosinophils # (test code 0.2 See_Comment N [A utomated message] The = Eosinophils #) system whic h generated this result tra nsmitted reference range : <=0.5. The reference r megan was not used to int erpret this result as normal/abnormal . [facility] CenterZfjivdvBZPZSSTNMS5364-43-18 20:32:00 Test Item Value Reference Range Interpretation Comments Basophils # (test code 0.1 See_Comment N [Aut omated message] The = Basophils #) system which generated this result tra nsmitted reference range : <=0.2. The reference r megan was not used to int erpret this result as normal/abnormal . [facility] CenterZsxwwnyBEXAKABGDK2813-21-84 20:32:00 Test Item Value Reference Range Interpretation Comments Lymphocytes (test code = Lymphocytes) 21.3 20.0-40.0 N [facility] CenterHwawdvbVGWLWOMSSF3083-49-96 20:32:00 Test Item Value Reference Range Interpretation Comments Segs-Bands # (test code = Segs-Bands #) 11.4 1.5-8.1 H [facility] CenterPztmzchQGMQPKERTI7081-63-44 20:32:00 Test Item Value Reference Range Interpretation Comments Eosinophils (test code = 1.1 See_Comment N [A utomated message] The Eosinophils) system which ge nerated this result tra nsmitted reference range : <=4.0. The reference r megan was not used to int erpret this result as normal/abnormal . [facility] CenterYjgnpgwUHZLPWJWJX2341-14-56 20:32:00 Test Item Value Reference Range Interpretation Comments Basophils (test code = 0.5 See_Comment N [Aut omated message] The Basophils) system which ge nerated this result tra nsmitted reference range : <=1.0. The reference r megan was not used to int erpret this result as normal/abnormal . [facility] CenterBehfxzwIPYITEYZNB3174-40-40 20:32:00 Test Item Value Reference Range Interpretation Comments Monocytes (test code = Monocytes) 4.1 2.0-12.0 N [facility] CenterSpiecqdSKTCVAFQMC2932-70-90 20:32:00 Test Item Value Reference Range Interpretation Comments Lymphocytes # (test code = Lymphocytes 3.3 1.0-5.5 N #) [facility] CenterWpfbmczHHGXURFQPG7018-06-56 20:32:00 Test Item Value Reference Range Interpretation Comments Monocytes # (test code 0.6 See_Comment N [Aut omated message] The = Monocytes #) system which generated this result tra nsmitted reference range : <=0.8. The reference r megan was not used to int erpret this result as normal/abnormal . [facility] CenterZaphcumTVVAWUEGPP0001-95-92 20:32:00 Test Item Value Reference Range Interpretation Comments PTT (test code = PTT) 28.5 s 22.9-35.8 N [facility] CenterVkhrlfhWOHGXRJFHD5031-32-34 20:32:00 Test Item Value Reference Range Interpretation Comments PT (test code = PT) 12.9 s 12.0-14.7 N [facility]HdfxshtPHHFYICDXJ8676-05-77 20:32:00 Test Item Value Reference Range Interpretation Comments INR (test code = INR) 0.95 0.85-1.17 N [facility]ClawgqmRSINQMWDUX3286-27-97 20:32:00 Test Item Value Reference Range Interpretation Comments UA Urobilinogen (test code *NA*(11/26/2012 0.1-1.0 = UA Urobilinogen) 14:32:00) [facility]IcsddwvPUNFOAOGWC7581-19-38 20:32:00 Test Item Value Reference Range Interpretation Comments UA Bacteria (test code Occasional /HPF = UA Bacteria) *NA*(11/26/2012 14:32:00) [facility] HospitalFugvivzZVXKHSSQYH8521-03-42 20:32:00 Test Item Value Reference Range Interpretation Comments UA RBC (test code = 1 See_Comment N [Automa ashanti message] The UA RBC) system which ge nerated this result transmit ashanti reference range : <=2. The reference range was not used to interpr et this result as carmen l/abnormal. [facility]anoSfgehkfWJNCCNCPNL5621-39-37 20:32:00 Test Item Value Reference Range Interpretation Comments UA WBC (test code = 3 See_Comment N [Automa ashanti message] The UA WBC) system which ge nerated this result transmit ashanti reference range : <=5. The reference range was not used to interpr et this result as carmen l/abnormal. [facility] HospitalWbujrdjYQLBFDOKBK7358-51-84 20:32:00 Test Item Value Reference Range Interpretation Comments UA Sq Epi (test code = Many /LPF A UA Sq Epi) *ABN*(11/26/2012 14:32:00) [facility]anoEjfbecaYQGVFUBREM0188-35-78 20:32:00 Test Item Value Reference Range Interpretation Comments Micro? (test code = Performed *NA*(11/26/2012 Micro?) 14:32:00) [facility]anoYjedoonHHPXMXTBAC8583-52-68 20:32:00 Test Item Value Reference Range Interpretation Comments UA Mucus (test code = Few /LPF UA Mucus) *NA*(11/26/2012 14:32:00) [facility]anoGmnkqcoHDJIOAJHED0416-99-42 20:32:00 Test Item Value Reference Range Interpretation Comments UA Bili (test code = Negative *NA*(11/26/2012 UA Bili) 14:32:00) [facility] HospitalHafixrpEIZOMHDIAK8256-99-14 20:32:00 Test Item Value Reference Range Interpretation Comments UA Ketones (test code Negative mg/dL = UA Ketones) *NA*(11/26/2012 14:32:00) [facility] HospitalAfbysbfHDTDLSRSNU5499-56-99 20:32:00 Test Item Value Reference Range Interpretation Comments UA Protein (test code Negative mg/dL N = UA Protein) (11/26/2012 14:32:00) [facility] HospitalZoonfvpPSLHJTIZWE9877-69-87 20:32:00 Test Item Value Reference Range Interpretation Comments UA Leuk Est (test code Trace *ABN*(11/26/2012 A = UA Leuk Est) 14:32:00) [facility] HospitalJrfshyuOIZZWOSSXC4209-34-26 20:32:00 Test Item Value Reference Range Interpretation Comments UA Nitrite (test code Negative (11/26/2012 N = UA Nitrite) 14:32:00) [facility] HospitalMooxgssNZINSKBOQX1083-17-41 20:32:00 Test Item Value Reference Range Interpretation Comments UA Blood (test code = Negative (11/26/2012 N UA Blood) 14:32:00) [facility] HospitalZvicsmuTOQQEWWQMJ4197-72-08 20:32:00 Test Item Value Reference Range Interpretation Comments UA Color (test code = Yellow *NA*(11/26/2012 UA Color) 14:32:00) [facility] HospitalSdooiasRAAMTCVTPC7751-38-74 20:32:00 Test Item Value Reference Range Interpretation Comments UA pH (test code = UA pH) 6.0 5.0-8.0 N [facility] HospitalSvjeuiyIYRHOENTHZ0495-87-18 20:32:00 Test Item Value Reference Range Interpretation Comments UA Spec Grav (test code = UA Spec Grav) 1.016 N [facility] HospitalIatxqpbTILTGCUZYF6181-20-72 20:32:00 Test Item Value Reference Range Interpretation Comments UA Turbidity (test code Slight A = UA Turbidity) *ABN*(11/26/2012 14:32:00) [facility] HospitalWxcktioECHUPVIOKJ6771-11-47 20:32:00 Test Item Value Reference Range Interpretation Comments UA Glucose (test code Negative mg/dL = UA Glucose) *NA*(11/26/2012 14:32:00) [facility]ZnrsfrlXVATFCRSQ5444-52-11 20:32:00 Test Item Value Reference Range Interpretation Comments A/G Ratio (test code = A/G Ratio) 0.9 0.7-1.6 N [facility] CenterPceynjyLRZFPMALO8555-37-98 20:32:00 Test Item Value Reference Range Interpretation Comments Globulin (test code = Globulin) 4.4 2.0-4.0 H [facility] CenterIcutllgSEKCXIQQQ0725-28-37 20:32:00 Test Item Value Reference Range Interpretation Comments AGAP (test code = AGAP) 13.0 10.0-20.0 N [facility] CenterInkgovzLTTIIZHXE3379-85-38 20:32:00 Test Item Value Reference Range Interpretation Comments B/C Ratio (test code = B/C Ratio) 18 6-25 N [facility] CenterIoyaxnfVARRXVGOP0604-29-71 20:32:00 Test Item Value Reference Range Interpretation Comments AST (test code = AST) 24 See_Comment N [Auto mated message] The system which ge nerated this result transmit ashanti reference range : <=37. The reference range was not used to interpr et this result as carmen l/abnormal. [facility] CenterXspgiwpMOMEHAJNR6802-37-12 20:32:00 Test Item Value Reference Range Interpretation Comments Bili Total (test code = Bili Total) 0.5 0.2-1.3 N [facility] CenterBppvhrvKCCEUHDAR9191-46-22 20:32:00 Test Item Value Reference Range Interpretation Comments Alk Phos (test code = Alk Phos) 98 39-136 N [facility] CenterUprgusaTKRXIWJCL3432-40-38 20:32:00 Test Item Value Reference Range Interpretation Comments ALT (test code = ALT) 37 See_Comment N [Auto mated message] The system which ge nerated this result transmit ashanti reference range : <=65. The reference range was not used to interpr et this result as carmen l/abnormal. [facility] CenterAntcphmITTZWZRSE4585-62-20 20:32:00 Test Item Value Reference Range Interpretation Comments Total Protein (test code = Total 8.5 6.4-8.4 H Protein) [facility] CenterWssjlhoISPDAQBYL8486-61-45 20:32:00 Test Item Value Reference Range Interpretation Comments eGFR (test code = eGFR) 128 [facility] CenterOobjdvlIDOTEABIM8775-13-83 20:32:00 Test Item Value Reference Range Interpretation Comments Albumin Lvl (test code = Albumin Lvl) 4.1 3.5-5.0 N [facility] CenterUwkotmzYQHMIMXEE8034-48-40 20:32:00 Test Item Value Reference Range Interpretation Comments Chloride Lvl (test code = Chloride Lvl) 100 95-109 N [facility] CenterOatzcanLJMHEZHUU2013-06-71 20:32:00 Test Item Value Reference Range Interpretation Comments Potassium Lvl (test code = Potassium 4.0 3.5-5.1 N Lvl) [facility] CenterOsikpvkUDJWSDYHV6597-88-38 20:32:00 Test Item Value Reference Range Interpretation Comments CO2 (test code = CO2) 28 24-32 N [facility] CenterHiygpblTBLQORRBN1062-10-28 20:32:00 Test Item Value Reference Range Interpretation Comments Sodium Lvl (test code = Sodium Lvl) 137 135-145 N [facility] CenterKuqhrklZDRUIKVDH7419-76-21 20:32:00 Test Item Value Reference Range Interpretation Comments Calcium Lvl (test code = Calcium Lvl) 9.1 8.5-10.5 N [facility] CenterImcoezhODXOVTAHF5062-77-45 20:32:00 Test Item Value Reference Range Interpretation Comments Creatinine Lvl (test code = Creatinine 0.5 0.5-1.4 N Lvl) [facility] CenterJkgltwoVKOIXGVKU8791-39-21 20:32:00 Test Item Value Reference Range Interpretation Comments Glucose Lvl (test code = Glucose Lvl) 81 70-99 N [facility] CenterDcifctuAYYLIVCVG5360-37-63 20:32:00 Test Item Value Reference Range Interpretation Comments BUN (test code = BUN) 9 7-22 N [facility] CenterRwxmbmhAKDDQBEUV2700-48-09 20:32:00 Test Item Value Reference Range Interpretation Comments Vitamin D 1,25 (OH)2 Total (test code = 52 18-72 Vitamin D 1,25 (OH)2 Total) [facility] CenterZftoiwcZGTFVJKIM8717-28-71 20:32:00 Test Item Value Reference Range Interpretation Comments Vitamin D2 1,25 (OH)2 (test code = no gt Vitamin D2 1,25 (OH)2) [facility] CenterZhdeulgQFKRSWEQO7522-08-27 20:32:00 Test Item Value Reference Range Interpretation Comments Vitamin D3 1,25 (OH)2 (test code = 52 Vitamin D3 1,25 (OH)2) [facility]SvocrhzNHCBMPBAAU5747-96-23 20:32:00 Test Item Value Reference Range Interpretation Comments MPV (test code = MPV) 8.7 7.4-10.4 N [facility] CenterGzktcevDJTKXTILFL2518-47-24 20:32:00 Test Item Value Reference Range Interpretation Comments Hgb (test code = Hgb) 12.0 12.0-16.0 N [facility] CenterAvudlhcMDZHJREFLO3163-93-42 20:32:00 Test Item Value Reference Range Interpretation Comments RBC (test code = RBC) 4.51 4.20-5.40 N [facility] CenterMxdfjhiQEHPMALBAJ9115-49-97 20:32:00 Test Item Value Reference Range Interpretation Comments WBC (test code = WBC) 15.6 3.7-10.4 H [facility] CenterQhfwaapWTIRHGYZVW8862-84-84 20:32:00 Test Item Value Reference Range Interpretation Comments Hct (test code = Hct) 37.0 36.0-48.0 N [facility] CenterOblgspvHHPZBSUNWI9330-20-24 20:32:00 Test Item Value Reference Range Interpretation Comments MCV (test code = MCV) 82.0 81.0-99.0 N [facility] CenterYcykvxaZUNLVNRIWE8863-01-47 20:32:00 Test Item Value Reference Range Interpretation Comments RDW (test code = RDW) 15.9 11.5-14.5 H [facility] CenterMamaukjNEGFBNTEVH9211-51-62 20:32:00 Test Item Value Reference Range Interpretation Comments MCHC (test code = MCHC) 32.3 32.0-36.0 N [facility] CenterPgknddpEQCNVUZUPI9637-05-84 20:32:00 Test Item Value Reference Range Interpretation Comments MCH (test code = MCH) 26.5 pg 27.0-31.0 L [facility] CenterMgwtkmrJDCBPFMTXZ8798-55-01 20:32:00 Test Item Value Reference Range Interpretation Comments Platelet (test code = Platelet) 371 133-450 N [facility] CenterOtljbuhCDNQTBYRYN7922-97-25 20:32:00 Test Item Value Reference Range Interpretation Comments Polychrom (test code = Slight (11/26/2012 N Polychrom) 14:32:00) [facility] CenterUqsunihVDUZKUWLXP3835-37-10 20:32:00 Test Item Value Reference Range Interpretation Comments Large Plt (test code = Slight *ABN*(11/26/2012 A Large Plt) 14:32:00) [facility] CenterNmnzlqsHEXOITHKCR4226-13-82 20:32:00 Test Item Value Reference Range Interpretation Comments Segs (test code = Segs) 73.0 45.0-75.0 N [facility] CenterIuwkdknOIMCEWDAXN8884-04-64 20:32:00 Test Item Value Reference Range Interpretation Comments Eosinophils # (test code 0.2 See_Comment N [A utomated message] The = Eosinophils #) system whic h generated this result tra nsmitted reference range : <=0.5. The reference r megan was not used to int erpret this result as normal/abnormal . [facility] CenterHtnzzakXHPZYIOUFQ1492-34-02 20:32:00 Test Item Value Reference Range Interpretation Comments Basophils # (test code 0.1 See_Comment N [Aut omated message] The = Basophils #) system which generated this result tra nsmitted reference range : <=0.2. The reference r megan was not used to int erpret this result as normal/abnormal . [facility] CenterHnrhbnlXKBIUAUGBV1041-26-48 20:32:00 Test Item Value Reference Range Interpretation Comments Lymphocytes (test code = Lymphocytes) 21.3 20.0-40.0 N [facility] CenterYzuxwswXGKUEKMVDN7129-86-74 20:32:00 Test Item Value Reference Range Interpretation Comments Segs-Bands # (test code = Segs-Bands #) 11.4 1.5-8.1 H [facility] CenterWqzujqbLDQVQTVWJS1264-55-62 20:32:00 Test Item Value Reference Range Interpretation Comments Eosinophils (test code = 1.1 See_Comment N [A utomated message] The Eosinophils) system which ge nerated this result tra nsmitted reference range : <=4.0. The reference r megan was not used to int erpret this result as normal/abnormal . [facility] CenterMoeqtjdFOYABFFDUW3800-93-58 20:32:00 Test Item Value Reference Range Interpretation Comments Basophils (test code = 0.5 See_Comment N [Aut omated message] The Basophils) system which ge nerated this result tra nsmitted reference range : <=1.0. The reference r megan was not used to int erpret this result as normal/abnormal . [facility] CenterIuebtonAXJCXQCXVO6508-28-88 20:32:00 Test Item Value Reference Range Interpretation Comments Monocytes (test code = Monocytes) 4.1 2.0-12.0 N [facility] CenterEzpsyenVXHMUZWQCF2408-28-02 20:32:00 Test Item Value Reference Range Interpretation Comments Lymphocytes # (test code = Lymphocytes 3.3 1.0-5.5 N #) [facility] CenterEcgtfnwKKBUZKAZLH3593-35-03 20:32:00 Test Item Value Reference Range Interpretation Comments Monocytes # (test code 0.6 See_Comment N [Aut omated message] The = Monocytes #) system which generated this result tra nsmitted reference range : <=0.8. The reference r megan was not used to int erpret this result as normal/abnormal . [facility] CenterHevdmxeNMFCSCPRMH5002-92-55 20:32:00 Test Item Value Reference Range Interpretation Comments PTT (test code = PTT) 28.5 s 22.9-35.8 N [facility] CenterLjdfexoHIXSQPNRKO1008-51-33 20:32:00 Test Item Value Reference Range Interpretation Comments PT (test code = PT) 12.9 s 12.0-14.7 N [facility] CenterGuertjcDGBCODLZBQ1549-79-10 20:32:00 Test Item Value Reference Range Interpretation Comments INR (test code = INR) 0.95 0.85-1.17 N [facility]DiqimtgQTVXKRJHYE5007-28-40 20:32:00 Test Item Value Reference Range Interpretation Comments UA Urobilinogen (test code *NA*(11/26/2012 0.1-1.0 = UA Urobilinogen) 14:32:00) [facility] HospitalKqgrdfiTOVCHSASNM9594-81-40 20:32:00 Test Item Value Reference Range Interpretation Comments UA Bacteria (test code Occasional /HPF = UA Bacteria) *NA*(11/26/2012 14:32:00) [facility] HospitalXarogzoJKTBEXHCDG4579-72-48 20:32:00 Test Item Value Reference Range Interpretation Comments UA RBC (test code = 1 See_Comment N [Automa ashanti message] The UA RBC) system which ge nerated this result transmit ashanti reference range : <=2. The reference range was not used to interpr et this result as carmen l/abnormal. [facility] HospitalVgqjxjpXHFQDAHLYF3487-88-37 20:32:00 Test Item Value Reference Range Interpretation Comments UA WBC (test code = 3 See_Comment N [Automa ashanti message] The UA WBC) system which ge nerated this result transmit ashanti reference range : <=5. The reference range was not used to interpr et this result as carmen l/abnormal. [facility] HospitalFumvvdcGPFSMZPBRZ4938-07-05 20:32:00 Test Item Value Reference Range Interpretation Comments UA Sq Epi (test code = Many /LPF A UA Sq Epi) *ABN*(11/26/2012 14:32:00) [facility] HospitalLiubrcuBPKPCRQZXC5911-75-33 20:32:00 Test Item Value Reference Range Interpretation Comments Micro? (test code = Performed *NA*(11/26/2012 Micro?) 14:32:00) [facility]HiynkhhYTGWBVHNCX8493-49-87 20:32:00 Test Item Value Reference Range Interpretation Comments UA Mucus (test code = Few /LPF UA Mucus) *NA*(11/26/2012 14:32:00) [facility] HospitalTiwzotlIKIFOFBOVF2895-88-77 20:32:00 Test Item Value Reference Range Interpretation Comments UA Bili (test code = Negative *NA*(11/26/2012 UA Bili) 14:32:00) [facility]anoIwoxqssRZAFFTQEVF0952-96-27 20:32:00 Test Item Value Reference Range Interpretation Comments UA Ketones (test code Negative mg/dL = UA Ketones) *NA*(11/26/2012 14:32:00) [facility] HospitalEgqeyriGTDWSMBRAC5343-29-86 20:32:00 Test Item Value Reference Range Interpretation Comments UA Protein (test code Negative mg/dL N = UA Protein) (11/26/2012 14:32:00) [facility]anoWffaoovNCTZPNPGCN1293-05-88 20:32:00 Test Item Value Reference Range Interpretation Comments UA Leuk Est (test code Trace *ABN*(11/26/2012 A = UA Leuk Est) 14:32:00) [facility]anoCytnztdFZMFUVFPBU8268-43-16 20:32:00 Test Item Value Reference Range Interpretation Comments UA Nitrite (test code Negative (11/26/2012 N = UA Nitrite) 14:32:00) [facility]anoFslmnfhEZACKIOJFM6679-64-99 20:32:00 Test Item Value Reference Range Interpretation Comments UA Blood (test code = Negative (11/26/2012 N UA Blood) 14:32:00) [facility]anoSaleeyxMTVOEVGOVE8335-08-05 20:32:00 Test Item Value Reference Range Interpretation Comments UA Color (test code = Yellow *NA*(11/26/2012 UA Color) 14:32:00) [facility] HospitalHlxlrnhLFMSYJPAFN1478-53-93 20:32:00 Test Item Value Reference Range Interpretation Comments UA pH (test code = UA pH) 6.0 5.0-8.0 N [facility] HospitalZqymeuzSYBZIITBHD6116-54-43 20:32:00 Test Item Value Reference Range Interpretation Comments UA Spec Grav (test code = UA Spec Grav) 1.016 N [facility] HospitalCwocxbuBRXHNXIPZY7730-61-33 20:32:00 Test Item Value Reference Range Interpretation Comments UA Turbidity (test code Slight A = UA Turbidity) *ABN*(11/26/2012 14:32:00) [facility] HospitalOnvudchAWJYZYUIAI7590-41-34 20:32:00 Test Item Value Reference Range Interpretation Comments UA Glucose (test code Negative mg/dL = UA Glucose) *NA*(11/26/2012 14:32:00) [facility] CenterItlrlmtZNHMMHXUK7478-55-81 20:32:00 Test Item Value Reference Range Interpretation Comments A/G Ratio (test code = A/G Ratio) 0.9 0.7-1.6 N [facility] CenterNluekhcCPLPUMLET1501-57-47 20:32:00 Test Item Value Reference Range Interpretation Comments Globulin (test code = Globulin) 4.4 2.0-4.0 H [facility] CenterTvrfacdPPEMQCYRO3065-90-98 20:32:00 Test Item Value Reference Range Interpretation Comments AGAP (test code = AGAP) 13.0 10.0-20.0 N [facility] CenterVjfeojxGHFWRIGAF9285-98-95 20:32:00 Test Item Value Reference Range Interpretation Comments B/C Ratio (test code = B/C Ratio) 18 6-25 N [facility] CenterLmxyjbsCOGEJEGVQ9435-58-65 20:32:00 Test Item Value Reference Range Interpretation Comments AST (test code = AST) 24 See_Comment N [Auto mated message] The system which ge nerated this result transmit ashanti reference range : <=37. The reference range was not used to interpr et this result as carmen l/abnormal. [facility] CenterQjhljmzSRBEJJFXR6067-21-39 20:32:00 Test Item Value Reference Range Interpretation Comments Bili Total (test code = Bili Total) 0.5 0.2-1.3 N [facility] CenterJnnzolpONWGRKHIK6642-46-42 20:32:00 Test Item Value Reference Range Interpretation Comments Alk Phos (test code = Alk Phos) 98 39-136 N [facility] CenterTltdkyiRPESBWOHK5469-70-81 20:32:00 Test Item Value Reference Range Interpretation Comments ALT (test code = ALT) 37 See_Comment N [Auto mated message] The system which ge nerated this result transmit ashanti reference range : <=65. The reference range was not used to interpr et this result as carmen l/abnormal. [facility] CenterIkmlpwsBJXHTGNCQ5200-96-61 20:32:00 Test Item Value Reference Range Interpretation Comments Total Protein (test code = Total 8.5 6.4-8.4 H Protein) [facility] CenterNjgpdwtFOACUFLKT4698-55-86 20:32:00 Test Item Value Reference Range Interpretation Comments eGFR (test code = eGFR) 128 [facility] CenterAlddekeWWUERDQOD1794-01-33 20:32:00 Test Item Value Reference Range Interpretation Comments Albumin Lvl (test code = Albumin Lvl) 4.1 3.5-5.0 N [facility] CenterBeaypyjFQPBXAIIR6969-97-15 20:32:00 Test Item Value Reference Range Interpretation Comments Chloride Lvl (test code = Chloride Lvl) 100 95-109 N [facility] CenterPloglgnWBNDSHOAW0436-99-38 20:32:00 Test Item Value Reference Range Interpretation Comments Potassium Lvl (test code = Potassium 4.0 3.5-5.1 N Lvl) [facility] CenterTkyazbaWHCMXKDQJ1353-64-24 20:32:00 Test Item Value Reference Range Interpretation Comments CO2 (test code = CO2) 28 24-32 N [facility] CenterJiwzmquTWEURZBMJ8532-80-00 20:32:00 Test Item Value Reference Range Interpretation Comments Sodium Lvl (test code = Sodium Lvl) 137 135-145 N [facility] CenterAutpnpjNIGVILYQB4698-18-94 20:32:00 Test Item Value Reference Range Interpretation Comments Calcium Lvl (test code = Calcium Lvl) 9.1 8.5-10.5 N [facility] CenterIprjqynGDCXPOHSF2434-10-32 20:32:00 Test Item Value Reference Range Interpretation Comments Creatinine Lvl (test code = Creatinine 0.5 0.5-1.4 N Lvl) [facility] CenterIczjwvkTYQXGLXYB9327-83-78 20:32:00 Test Item Value Reference Range Interpretation Comments Glucose Lvl (test code = Glucose Lvl) 81 70-99 N [facility] CenterVcvtvyvLRPZKZFGE7734-31-91 20:32:00 Test Item Value Reference Range Interpretation Comments BUN (test code = BUN) 9 7-22 N [facility] CenterXpygoqaOUCOGZUPJ5702-61-80 20:32:00 Test Item Value Reference Range Interpretation Comments Vitamin D 1,25 (OH)2 Total (test code = 52 18-72 Vitamin D 1,25 (OH)2 Total) [facility] CenterOaibahnBQFDAEQUD6672-41-33 20:32:00 Test Item Value Reference Range Interpretation Comments Vitamin D2 1,25 (OH)2 (test code = no gt Vitamin D2 1,25 (OH)2) [facility] CenterUbvimpcSIONGATWL9755-13-16 20:32:00 Test Item Value Reference Range Interpretation Comments Vitamin D3 1,25 (OH)2 (test code = 52 Vitamin D3 1,25 (OH)2) [facility] CenterZtrhjbcVZYQPHYOEC8545-72-32 20:32:00 Test Item Value Reference Range Interpretation Comments MPV (test code = MPV) 8.7 7.4-10.4 N [facility] CenterRjrbdjoTSNDFNDNKW8372-61-69 20:32:00 Test Item Value Reference Range Interpretation Comments Hgb (test code = Hgb) 12.0 12.0-16.0 N [facility] CenterPgyjfprLJAWXMATMU4456-68-40 20:32:00 Test Item Value Reference Range Interpretation Comments RBC (test code = RBC) 4.51 4.20-5.40 N [facility] CenterOtnxrofQRUGTYAMTW7320-06-48 20:32:00 Test Item Value Reference Range Interpretation Comments WBC (test code = WBC) 15.6 3.7-10.4 H [facility] CenterGqrboshAPKUXDFUGB9524-36-42 20:32:00 Test Item Value Reference Range Interpretation Comments Hct (test code = Hct) 37.0 36.0-48.0 N [facility] CenterEyrzmrhMFVNCNRHJF5283-42-85 20:32:00 Test Item Value Reference Range Interpretation Comments MCV (test code = MCV) 82.0 81.0-99.0 N [facility] CenterChrlhbiYLLLMQUONZ5789-11-82 20:32:00 Test Item Value Reference Range Interpretation Comments RDW (test code = RDW) 15.9 11.5-14.5 H [facility] CenterXwghgyaAHWEWQZFPC7122-87-13 20:32:00 Test Item Value Reference Range Interpretation Comments MCHC (test code = MCHC) 32.3 32.0-36.0 N [facility] CenterBgspuxoWHDVIWKWFB0690-76-54 20:32:00 Test Item Value Reference Range Interpretation Comments MCH (test code = MCH) 26.5 pg 27.0-31.0 L [facility] CenterZypvvqbXSPHBSPTIB7297-79-81 20:32:00 Test Item Value Reference Range Interpretation Comments Platelet (test code = Platelet) 371 133-450 N [facility] CenterVenyvtaPENECPZCTD0972-25-49 20:32:00 Test Item Value Reference Range Interpretation Comments Polychrom (test code = Slight (11/26/2012 N Polychrom) 14:32:00) [facility] CenterCklkbyeCDEAYOYVLJ3748-02-77 20:32:00 Test Item Value Reference Range Interpretation Comments Large Plt (test code = Slight *ABN*(11/26/2012 A Large Plt) 14:32:00) [facility] CenterBbecqfjSJMBEXLPME0320-19-22 20:32:00 Test Item Value Reference Range Interpretation Comments Segs (test code = Segs) 73.0 45.0-75.0 N [facility] CenterSdcnzbjVMKIAVEGWD6015-07-31 20:32:00 Test Item Value Reference Range Interpretation Comments Eosinophils # (test code 0.2 See_Comment N [A utomated message] The = Eosinophils #) system whic h generated this result tra nsmitted reference range : <=0.5. The reference r meagn was not used to int erpret this result as normal/abnormal . [facility] CenterIltwiioEEJWPTOPNK4349-92-10 20:32:00 Test Item Value Reference Range Interpretation Comments Basophils # (test code 0.1 See_Comment N [Aut omated message] The = Basophils #) system which generated this result tra nsmitted reference range : <=0.2. The reference r megan was not used to int erpret this result as normal/abnormal . [facility] CenterAwasneuSFXZMWYBMV7808-45-79 20:32:00 Test Item Value Reference Range Interpretation Comments Lymphocytes (test code = Lymphocytes) 21.3 20.0-40.0 N [facility] CenterAmwhtnoRKSKIZALEA4155-65-47 20:32:00 Test Item Value Reference Range Interpretation Comments Segs-Bands # (test code = Segs-Bands #) 11.4 1.5-8.1 H [facility] CenterYqkvmwnIEFULAASLV6733-78-36 20:32:00 Test Item Value Reference Range Interpretation Comments Eosinophils (test code = 1.1 See_Comment N [A utomated message] The Eosinophils) system which ge nerated this result tra nsmitted reference range : <=4.0. The reference r megan was not used to int erpret this result as normal/abnormal . [facility] CenterShytjdeNVKYHNDNVX2375-52-98 20:32:00 Test Item Value Reference Range Interpretation Comments Basophils (test code = 0.5 See_Comment N [Aut omated message] The Basophils) system which ge nerated this result tra nsmitted reference range : <=1.0. The reference r megan was not used to int erpret this result as normal/abnormal . [facility] CenterXdgfaqkTDTDPUCPZH5361-11-04 20:32:00 Test Item Value Reference Range Interpretation Comments Monocytes (test code = Monocytes) 4.1 2.0-12.0 N [facility] CenterIseliigSZURKKALTN8493-00-87 20:32:00 Test Item Value Reference Range Interpretation Comments Lymphocytes # (test code = Lymphocytes 3.3 1.0-5.5 N #) [facility] CenterItqpwgdHXIVRYPQBC0602-03-73 20:32:00 Test Item Value Reference Range Interpretation Comments Monocytes # (test code 0.6 See_Comment N [Aut omated message] The = Monocytes #) system which generated this result tra nsmitted reference range : <=0.8. The reference r megan was not used to int erpret this result as normal/abnormal . [facility] CenterAzbatyjBGMHOXTYJZ2227-56-10 20:32:00 Test Item Value Reference Range Interpretation Comments PTT (test code = PTT) 28.5 s 22.9-35.8 N [facility] CenterYvnjsdbYAOKULLJNI0769-64-90 20:32:00 Test Item Value Reference Range Interpretation Comments PT (test code = PT) 12.9 s 12.0-14.7 N [facility] CenterJodkcjmVYWNZFAIAH7512-54-26 20:32:00 Test Item Value Reference Range Interpretation Comments INR (test code = INR) 0.95 0.85-1.17 N [facility]ZyyngceEWINKUONAF9244-11-83 20:32:00 Test Item Value Reference Range Interpretation Comments UA Urobilinogen (test code *NA*(11/26/2012 0.1-1.0 = UA Urobilinogen) 14:32:00) [facility]anoUnoldxoWBTJHTFUUY4991-84-88 20:32:00 Test Item Value Reference Range Interpretation Comments UA Bacteria (test code Occasional /HPF = UA Bacteria) *NA*(11/26/2012 14:32:00) [facility]anoCaggmtbPQAEGUAYRC7663-50-77 20:32:00 Test Item Value Reference Range Interpretation Comments UA RBC (test code = 1 See_Comment N [Automa ashanti message] The UA RBC) system which ge nerated this result transmit ashanti reference range : <=2. The reference range was not used to interpr et this result as carmen l/abnormal. [facility] HospitalKhyokqgXZCQWECZQM0159-48-87 20:32:00 Test Item Value Reference Range Interpretation Comments UA WBC (test code = 3 See_Comment N [Automa ashanti message] The UA WBC) system which ge nerated this result transmit ashanti reference range : <=5. The reference range was not used to interpr et this result as carmen l/abnormal. [facility]anoDyukiaoMEXHWRGCGF8731-00-09 20:32:00 Test Item Value Reference Range Interpretation Comments UA Sq Epi (test code = Many /LPF A UA Sq Epi) *ABN*(11/26/2012 14:32:00) [facility] HospitalYtfooxaBXQRYZBNXL0324-21-01 20:32:00 Test Item Value Reference Range Interpretation Comments Micro? (test code = Performed *NA*(11/26/2012 Micro?) 14:32:00) [facility]anoQebzohtITAQBQTHSD7568-55-28 20:32:00 Test Item Value Reference Range Interpretation Comments UA Mucus (test code = Few /LPF UA Mucus) *NA*(11/26/2012 14:32:00) [facility]anoGcflhjvPDLLKSGLRC7874-03-65 20:32:00 Test Item Value Reference Range Interpretation Comments UA Bili (test code = Negative *NA*(11/26/2012 UA Bili) 14:32:00) [facility]anoEdyhxsqXJDNLABUPU6775-93-56 20:32:00 Test Item Value Reference Range Interpretation Comments UA Ketones (test code Negative mg/dL = UA Ketones) *NA*(11/26/2012 14:32:00) [facility] HospitalZrqjseeNISNEWNPLG9097-42-36 20:32:00 Test Item Value Reference Range Interpretation Comments UA Protein (test code Negative mg/dL N = UA Protein) (11/26/2012 14:32:00) [facility] HospitalDoohlwtOKQCLYGWPT0772-76-51 20:32:00 Test Item Value Reference Range Interpretation Comments UA Leuk Est (test code Trace *ABN*(11/26/2012 A = UA Leuk Est) 14:32:00) [facility] HospitalGctifekEJNDTSRLHT5494-93-35 20:32:00 Test Item Value Reference Range Interpretation Comments UA Nitrite (test code Negative (11/26/2012 N = UA Nitrite) 14:32:00) [facility] HospitalTchhwntYLFDOJISTQ4899-95-27 20:32:00 Test Item Value Reference Range Interpretation Comments UA Blood (test code = Negative (11/26/2012 N UA Blood) 14:32:00) [facility] HospitalQsbtgcuNPABIWUNFU9464-60-30 20:32:00 Test Item Value Reference Range Interpretation Comments UA Color (test code = Yellow *NA*(11/26/2012 UA Color) 14:32:00) [facility] HospitalOjhdsdgDLIVOGYQSD5455-52-51 20:32:00 Test Item Value Reference Range Interpretation Comments UA pH (test code = UA pH) 6.0 5.0-8.0 N [facility] HospitalTvbhtjhXVMJHIDASV7078-39-05 20:32:00 Test Item Value Reference Range Interpretation Comments UA Spec Grav (test code = UA Spec Grav) 1.016 N [facility] HospitalVyctywkJCOSREDWND1833-90-35 20:32:00 Test Item Value Reference Range Interpretation Comments UA Turbidity (test code Slight A = UA Turbidity) *ABN*(11/26/2012 14:32:00) [facility] HospitalSbelrnwIRYILSTUIU1652-12-38 20:32:00 Test Item Value Reference Range Interpretation Comments UA Glucose (test code Negative mg/dL = UA Glucose) *NA*(11/26/2012 14:32:00) [facility] CenterBwugsdfKCSMSWUAP5883-32-22 20:32:00 Test Item Value Reference Range Interpretation Comments A/G Ratio (test code = A/G Ratio) 0.9 0.7-1.6 N [facility] CenterVrphlzjPNWOGSIUG1289-30-86 20:32:00 Test Item Value Reference Range Interpretation Comments Globulin (test code = Globulin) 4.4 2.0-4.0 H [facility] CenterDrsnujbDLJVTSLMM2414-38-44 20:32:00 Test Item Value Reference Range Interpretation Comments AGAP (test code = AGAP) 13.0 10.0-20.0 N [facility] CenterZcmdgzoBVQFBWGAW3440-25-38 20:32:00 Test Item Value Reference Range Interpretation Comments B/C Ratio (test code = B/C Ratio) 18 6-25 N [facility] CenterKqvfnxqEEWRJLCRY2644-08-74 20:32:00 Test Item Value Reference Range Interpretation Comments AST (test code = AST) 24 See_Comment N [Auto mated message] The system which ge nerated this result transmit ashanti reference range : <=37. The reference range was not used to interpr et this result as carmen l/abnormal. [facility] CenterCnpduaoRRHLKDXTB4335-39-75 20:32:00 Test Item Value Reference Range Interpretation Comments Bili Total (test code = Bili Total) 0.5 0.2-1.3 N [facility] CenterLfhfnzgXNSJPAPGO1778-02-78 20:32:00 Test Item Value Reference Range Interpretation Comments Alk Phos (test code = Alk Phos) 98 39-136 N [facility] CenterTmmskgmCAPLOEQIK1329-59-26 20:32:00 Test Item Value Reference Range Interpretation Comments ALT (test code = ALT) 37 See_Comment N [Auto mated message] The system which ge nerated this result transmit ashanti reference range : <=65. The reference range was not used to interpr et this result as carmen l/abnormal. [facility] CenterKxpqjvoDVGEATPUQ6182-78-69 20:32:00 Test Item Value Reference Range Interpretation Comments Total Protein (test code = Total 8.5 6.4-8.4 H Protein) [facility] CenterBbdnkhsEKHSMYGWT2585-95-50 20:32:00 Test Item Value Reference Range Interpretation Comments eGFR (test code = eGFR) 128 [facility] CenterOrxreowIENTJRSGG4205-30-59 20:32:00 Test Item Value Reference Range Interpretation Comments Albumin Lvl (test code = Albumin Lvl) 4.1 3.5-5.0 N [facility] CenterNewbguhOEKWXREEG1481-46-50 20:32:00 Test Item Value Reference Range Interpretation Comments Chloride Lvl (test code = Chloride Lvl) 100 95-109 N [facility] CenterAkvoetjPWZZSBEHT7932-42-29 20:32:00 Test Item Value Reference Range Interpretation Comments Potassium Lvl (test code = Potassium 4.0 3.5-5.1 N Lvl) [facility] CenterJjdxyyzEMHGOXRDS5678-17-21 20:32:00 Test Item Value Reference Range Interpretation Comments CO2 (test code = CO2) 28 24-32 N [facility] CenterGzybsqgIFNYBEKDC2252-12-91 20:32:00 Test Item Value Reference Range Interpretation Comments Sodium Lvl (test code = Sodium Lvl) 137 135-145 N [facility] CenterAyetgfaCSNIXVNAQ0199-19-74 20:32:00 Test Item Value Reference Range Interpretation Comments Calcium Lvl (test code = Calcium Lvl) 9.1 8.5-10.5 N [facility] CenterCzhyssjPBAPPYNZT6896-47-96 20:32:00 Test Item Value Reference Range Interpretation Comments Creatinine Lvl (test code = Creatinine 0.5 0.5-1.4 N Lvl) [facility] CenterZyeptygUAYJCZPPW7071-12-65 20:32:00 Test Item Value Reference Range Interpretation Comments Glucose Lvl (test code = Glucose Lvl) 81 70-99 N [facility] CenterLzaucfnVPCVJGTYM6673-55-93 20:32:00 Test Item Value Reference Range Interpretation Comments BUN (test code = BUN) 9 7-22 N [facility] CenterYzkwtvjNDIWFFZKC8790-45-75 20:32:00 Test Item Value Reference Range Interpretation Comments Vitamin D 1,25 (OH)2 Total (test code = 52 18-72 Vitamin D 1,25 (OH)2 Total) [facility] CenterFaraglsYYEQCVKKL9839-71-79 20:32:00 Test Item Value Reference Range Interpretation Comments Vitamin D2 1,25 (OH)2 (test code = no gt Vitamin D2 1,25 (OH)2) [facility] CenterUfpslndBGXSMSHEA2074-20-03 20:32:00 Test Item Value Reference Range Interpretation Comments Vitamin D3 1,25 (OH)2 (test code = 52 Vitamin D3 1,25 (OH)2) [facility]DvmbbkmNQPTTDDSYU3109-32-45 20:32:00 Test Item Value Reference Range Interpretation Comments MPV (test code = MPV) 8.7 7.4-10.4 N [facility] CenterTvcntcvMGPFMBHVII0647-22-61 20:32:00 Test Item Value Reference Range Interpretation Comments Hgb (test code = Hgb) 12.0 12.0-16.0 N [facility] CenterYmhokgbEHGZVUPQKS8496-84-98 20:32:00 Test Item Value Reference Range Interpretation Comments RBC (test code = RBC) 4.51 4.20-5.40 N [facility] CenterTjsewbuMNTACRGBYL2722-68-60 20:32:00 Test Item Value Reference Range Interpretation Comments WBC (test code = WBC) 15.6 3.7-10.4 H [facility] CenterLvjexooMDJWAHBJVF8161-44-32 20:32:00 Test Item Value Reference Range Interpretation Comments Hct (test code = Hct) 37.0 36.0-48.0 N [facility] CenterBwhtjqxXAGBRSBGEZ5156-74-77 20:32:00 Test Item Value Reference Range Interpretation Comments MCV (test code = MCV) 82.0 81.0-99.0 N [facility] CenterGofsozyQUGMFMDIXZ7863-92-83 20:32:00 Test Item Value Reference Range Interpretation Comments RDW (test code = RDW) 15.9 11.5-14.5 H [facility] CenterRdijqcyBAKDYIFFKY6611-02-13 20:32:00 Test Item Value Reference Range Interpretation Comments MCHC (test code = MCHC) 32.3 32.0-36.0 N [facility] CenterPchfppzOXIHZOWCRO7272-60-58 20:32:00 Test Item Value Reference Range Interpretation Comments MCH (test code = MCH) 26.5 pg 27.0-31.0 L [facility] CenterMqvbnhyNSPPPWOCCD6578-68-64 20:32:00 Test Item Value Reference Range Interpretation Comments Platelet (test code = Platelet) 371 133-450 N [facility] CenterJxwsygtEQPWIATFVV0289-40-84 20:32:00 Test Item Value Reference Range Interpretation Comments Polychrom (test code = Slight (11/26/2012 N Polychrom) 14:32:00) [facility] CenterYirjknzSWOTJITAHB1275-28-32 20:32:00 Test Item Value Reference Range Interpretation Comments Large Plt (test code = Slight *ABN*(11/26/2012 A Large Plt) 14:32:00) [facility] CenterLlijqaaFIMTLGTQPS4358-81-56 20:32:00 Test Item Value Reference Range Interpretation Comments Segs (test code = Segs) 73.0 45.0-75.0 N [facility] CenterLjzgjmlTJGLIPHDME4549-86-66 20:32:00 Test Item Value Reference Range Interpretation Comments Eosinophils # (test code 0.2 See_Comment N [A utomated message] The = Eosinophils #) system whic h generated this result tra nsmitted reference range : <=0.5. The reference r megan was not used to int erpret this result as normal/abnormal . [facility] CenterNeussbjSVMFCCLHBV2026-39-71 20:32:00 Test Item Value Reference Range Interpretation Comments Basophils # (test code 0.1 See_Comment N [Aut omated message] The = Basophils #) system which generated this result tra nsmitted reference range : <=0.2. The reference r megan was not used to int erpret this result as normal/abnormal . [facility] CenterVanxuxvQBZJMWOTOJ5255-54-63 20:32:00 Test Item Value Reference Range Interpretation Comments Lymphocytes (test code = Lymphocytes) 21.3 20.0-40.0 N [facility] CenterMtkuemsEZFNPJMPXR0368-64-99 20:32:00 Test Item Value Reference Range Interpretation Comments Segs-Bands # (test code = Segs-Bands #) 11.4 1.5-8.1 H [facility] CenterPckqozcRUVACBHXWL2124-28-47 20:32:00 Test Item Value Reference Range Interpretation Comments Eosinophils (test code = 1.1 See_Comment N [A utomated message] The Eosinophils) system which ge nerated this result tra nsmitted reference range : <=4.0. The reference r megan was not used to int erpret this result as normal/abnormal . [facility] CenterArtslbpNLLPKMHFHX1089-76-11 20:32:00 Test Item Value Reference Range Interpretation Comments Basophils (test code = 0.5 See_Comment N [Aut omated message] The Basophils) system which ge nerated this result tra nsmitted reference range : <=1.0. The reference r megan was not used to int erpret this result as normal/abnormal . [facility] CenterSiiyjlvTUMWPOWZFS4932-02-89 20:32:00 Test Item Value Reference Range Interpretation Comments Monocytes (test code = Monocytes) 4.1 2.0-12.0 N [facility] CenterBaitxtnSQFNZQDAJO0101-40-29 20:32:00 Test Item Value Reference Range Interpretation Comments Lymphocytes # (test code = Lymphocytes 3.3 1.0-5.5 N #) [facility] CenterRoajkqsJQCTGTTIBS2756-92-23 20:32:00 Test Item Value Reference Range Interpretation Comments Monocytes # (test code 0.6 See_Comment N [Aut omated message] The = Monocytes #) system which generated this result tra nsmitted reference range : <=0.8. The reference r megan was not used to int erpret this result as normal/abnormal . [facility] CenterDvnliiyAEUXJTHKXM5567-09-50 20:32:00 Test Item Value Reference Range Interpretation Comments PTT (test code = PTT) 28.5 s 22.9-35.8 N [facility] CenterBkbpylsCAKEFKPAQI4867-71-20 20:32:00 Test Item Value Reference Range Interpretation Comments PT (test code = PT) 12.9 s 12.0-14.7 N [facility] CenterIofczbxHUVCCHMGYE7081-77-87 20:32:00 Test Item Value Reference Range Interpretation Comments INR (test code = INR) 0.95 0.85-1.17 N [facility]RfkucgcMCFUCESHDB2439-98-43 20:32:00 Test Item Value Reference Range Interpretation Comments UA Urobilinogen (test code *NA*(11/26/2012 0.1-1.0 = UA Urobilinogen) 14:32:00) [facility]DurqvbxGLSTMEDOFK2405-54-[facility] 20:32:00 Test Item Value Reference Range Interpretation Comments UA Bacteria (test code Occasional /HPF = UA Bacteria) *NA*(11/26/2012 14:32:00) [facility] HospitalMztsutjCXZJYEESYT4362-29-12 20:32:00 Test Item Value Reference Range Interpretation Comments UA RBC (test code = 1 See_Comment N [Automa ashanti message] The UA RBC) system which ge nerated this result transmit ashanti reference range : <=2. The reference range was not used to interpr et this result as cramen l/abnormal. [facility]anoAiacymwCDIFUJABMY7857-05-22 20:32:00 Test Item Value Reference Range Interpretation Comments UA WBC (test code = 3 See_Comment N [Automa ashanti message] The UA WBC) system which ge nerated this result transmit ashanti reference range : <=5. The reference range was not used to interpr et this result as carmen l/abnormal. [facility]anoUdpbrksAGDZVAFUJZ9562-26-33 20:32:00 Test Item Value Reference Range Interpretation Comments UA Sq Epi (test code = Many /LPF A UA Sq Epi) *ABN*(11/26/2012 14:32:00) [facility] HospitalKdztduaNSBRBFPJLM2522-55-94 20:32:00 Test Item Value Reference Range Interpretation Comments Micro? (test code = Performed *NA*(11/26/2012 Micro?) 14:32:00) [facility] HospitalCiughzfIUCXVYQDEE7997-26-67 20:32:00 Test Item Value Reference Range Interpretation Comments UA Mucus (test code = Few /LPF UA Mucus) *NA*(11/26/2012 14:32:00) [facility] HospitalXvatfegYFGLDMEWXX7648-46-06 20:32:00 Test Item Value Reference Range Interpretation Comments UA Bili (test code = Negative *NA*(11/26/2012 UA Bili) 14:32:00) [facility] HospitalHjlhcscXIVEJYLGWW1458-18-98 20:32:00 Test Item Value Reference Range Interpretation Comments UA Ketones (test code Negative mg/dL = UA Ketones) *NA*(11/26/2012 14:32:00) [facility] HospitalLsbrtemZPWIIWTIDX1933-39-51 20:32:00 Test Item Value Reference Range Interpretation Comments UA Protein (test code Negative mg/dL N = UA Protein) (11/26/2012 14:32:00) [facility] HospitalOtwagayAEKUZCIJHV3567-22-85 20:32:00 Test Item Value Reference Range Interpretation Comments UA Leuk Est (test code Trace *ABN*(11/26/2012 A = UA Leuk Est) 14:32:00) [facility] HospitalTjvotdeZPHNLMHNEA4050-81-38 20:32:00 Test Item Value Reference Range Interpretation Comments UA Nitrite (test code Negative (11/26/2012 N = UA Nitrite) 14:32:00) [facility] HospitalRuclcerNIVRCXYTFN1677-25-27 20:32:00 Test Item Value Reference Range Interpretation Comments UA Blood (test code = Negative (11/26/2012 N UA Blood) 14:32:00) [facility] HospitalYrxkiehYOIGOYZWFM3899-69-39 20:32:00 Test Item Value Reference Range Interpretation Comments UA Color (test code = Yellow *NA*(11/26/2012 UA Color) 14:32:00) [facility] HospitalPjejmfsFVVQYLRFVS8982-74-16 20:32:00 Test Item Value Reference Range Interpretation Comments UA pH (test code = UA pH) 6.0 5.0-8.0 N [facility] HospitalCjqpxobKSYBNYBQVB8872-46-95 20:32:00 Test Item Value Reference Range Interpretation Comments UA Spec Grav (test code = UA Spec Grav) 1.016 N [facility] HospitalEygawojPLWQOHHGLK6046-92-23 20:32:00 Test Item Value Reference Range Interpretation Comments UA Turbidity (test code Slight A = UA Turbidity) *ABN*(11/26/2012 14:32:00) [facility] HospitalKdjoqybFIATMTWMRZ2652-88-89 20:32:00 Test Item Value Reference Range Interpretation Comments UA Glucose (test code Negative mg/dL = UA Glucose) *NA*(11/26/2012 14:32:00) [facility] CenterWilrimfTRBLXTSWH6385-67-75 20:32:00 Test Item Value Reference Range Interpretation Comments A/G Ratio (test code = A/G Ratio) 0.9 0.7-1.6 N [facility] CenterOmcmpmcCOQCCMPOY4646-45-36 20:32:00 Test Item Value Reference Range Interpretation Comments Globulin (test code = Globulin) 4.4 2.0-4.0 H [facility] CenterWsjmlofKXCBBHKYU2368-04-23 20:32:00 Test Item Value Reference Range Interpretation Comments AGAP (test code = AGAP) 13.0 10.0-20.0 N [facility] CenterJsdxyqjNNZVZJIQQ6930-32-36 20:32:00 Test Item Value Reference Range Interpretation Comments B/C Ratio (test code = B/C Ratio) 18 6-25 N [facility] CenterNxsctaoVEZKZXKSQ2280-44-90 20:32:00 Test Item Value Reference Range Interpretation Comments AST (test code = AST) 24 See_Comment N [Auto mated message] The system which ge nerated this result transmit ashanti reference range : <=37. The reference range was not used to interpr et this result as carmen l/abnormal. [facility] CenterSmmsxhcTUOLNYDYC4941-95-02 20:32:00 Test Item Value Reference Range Interpretation Comments Bili Total (test code = Bili Total) 0.5 0.2-1.3 N [facility] CenterVzrcshwCNCUBEWIV0566-55-22 20:32:00 Test Item Value Reference Range Interpretation Comments Alk Phos (test code = Alk Phos) 98 39-136 N [facility] CenterOxjuyubBYCDRJFMC3879-90-39 20:32:00 Test Item Value Reference Range Interpretation Comments ALT (test code = ALT) 37 See_Comment N [Auto mated message] The system which ge nerated this result transmit ashanti reference range : <=65. The reference range was not used to interpr et this result as carmen l/abnormal. [facility] CenterJtqmsvcEXIZPZWQQ5986-99-12 20:32:00 Test Item Value Reference Range Interpretation Comments Total Protein (test code = Total 8.5 6.4-8.4 H Protein) [facility] CenterMxicoavMGYEWDEOM3241-50-10 20:32:00 Test Item Value Reference Range Interpretation Comments eGFR (test code = eGFR) 128 [facility] CenterFhllcjwPYLZXIWSU5755-21-13 20:32:00 Test Item Value Reference Range Interpretation Comments Albumin Lvl (test code = Albumin Lvl) 4.1 3.5-5.0 N [facility] CenterVfwamqfTGJGYIDAC3269-00-03 20:32:00 Test Item Value Reference Range Interpretation Comments Chloride Lvl (test code = Chloride Lvl) 100 95-109 N [facility] CenterXtbhwlgYWSRBXVIL8576-75-19 20:32:00 Test Item Value Reference Range Interpretation Comments Potassium Lvl (test code = Potassium 4.0 3.5-5.1 N Lvl) [facility] CenterAcvqqhqINWZHLBTZ3500-86-15 20:32:00 Test Item Value Reference Range Interpretation Comments CO2 (test code = CO2) 28 24-32 N [facility] CenterGihksbdITUJGZKWN7646-58-87 20:32:00 Test Item Value Reference Range Interpretation Comments Sodium Lvl (test code = Sodium Lvl) 137 135-145 N [facility] CenterGknahpgKVYTPAULM9910-24-31 20:32:00 Test Item Value Reference Range Interpretation Comments Calcium Lvl (test code = Calcium Lvl) 9.1 8.5-10.5 N [facility] CenterWdwrfnrHAFVVSLCO9880-99-88 20:32:00 Test Item Value Reference Range Interpretation Comments Creatinine Lvl (test code = Creatinine 0.5 0.5-1.4 N Lvl) [facility] CenterKqxsmwzOHFRQGHKV2675-22-51 20:32:00 Test Item Value Reference Range Interpretation Comments Glucose Lvl (test code = Glucose Lvl) 81 70-99 N [facility] CenterIlgjwlmLWVNFLHAT7611-61-01 20:32:00 Test Item Value Reference Range Interpretation Comments BUN (test code = BUN) 9 7-22 N [facility] CenterMekdycgSKEJZTOFI1119-59-27 20:32:00 Test Item Value Reference Range Interpretation Comments Vitamin D 1,25 (OH)2 Total (test code = 52 18-72 Vitamin D 1,25 (OH)2 Total) [facility] CenterUdwxtdcKYXQYMJUU3846-43-49 20:32:00 Test Item Value Reference Range Interpretation Comments Vitamin D2 1,25 (OH)2 (test code = no gt Vitamin D2 1,25 (OH)2) [facility] CenterVhtqdkoRNRINLLKP1412-18-18 20:32:00 Test Item Value Reference Range Interpretation Comments Vitamin D3 1,25 (OH)2 (test code = 52 Vitamin D3 1,25 (OH)2) [facility] CenterGuvbepoPGARRTQKBC1036-23-73 20:32:00 Test Item Value Reference Range Interpretation Comments MPV (test code = MPV) 8.7 7.4-10.4 N [facility] CenterCtvzaxpCGCOXYDFMT2809-39-42 20:32:00 Test Item Value Reference Range Interpretation Comments Hgb (test code = Hgb) 12.0 12.0-16.0 N [facility] CenterKtvemggVVIETGVLSK5663-52-80 20:32:00 Test Item Value Reference Range Interpretation Comments RBC (test code = RBC) 4.51 4.20-5.40 N [facility] CenterVvtgeyeGJXHMARSTY0596-46-13 20:32:00 Test Item Value Reference Range Interpretation Comments WBC (test code = WBC) 15.6 3.7-10.4 H [facility] CenterDvgepygPYHQHYOVHI2643-57-74 20:32:00 Test Item Value Reference Range Interpretation Comments Hct (test code = Hct) 37.0 36.0-48.0 N [facility] CenterVbutfhxWJUJCCXENF9641-88-05 20:32:00 Test Item Value Reference Range Interpretation Comments MCV (test code = MCV) 82.0 81.0-99.0 N [facility] CenterBifehocZDZIOBIUNI8000-99-69 20:32:00 Test Item Value Reference Range Interpretation Comments RDW (test code = RDW) 15.9 11.5-14.5 H [facility] CenterQpdixomJBOLLACJCL4453-68-12 20:32:00 Test Item Value Reference Range Interpretation Comments MCHC (test code = MCHC) 32.3 32.0-36.0 N [facility] CenterEumiuscBROZQJTVFG4819-02-55 20:32:00 Test Item Value Reference Range Interpretation Comments MCH (test code = MCH) 26.5 pg 27.0-31.0 L [facility] CenterCeuqmewQQEYLIABZZ3672-72-54 20:32:00 Test Item Value Reference Range Interpretation Comments Platelet (test code = Platelet) 371 133-450 N [facility] CenterZvozqkxCEMUXAOPMR8457-09-14 20:32:00 Test Item Value Reference Range Interpretation Comments Polychrom (test code = Slight (11/26/2012 N Polychrom) 14:32:00) [facility] CenterDjyldokUSYEJCWCBX1577-71-11 20:32:00 Test Item Value Reference Range Interpretation Comments Large Plt (test code = Slight *ABN*(11/26/2012 A Large Plt) 14:32:00) [facility] CenterRvkotwcOWVNOEATED6586-40-97 20:32:00 Test Item Value Reference Range Interpretation Comments Segs (test code = Segs) 73.0 45.0-75.0 N [facility] CenterSsydhesEGJKRWZVTH5365-15-39 20:32:00 Test Item Value Reference Range Interpretation Comments Eosinophils # (test code 0.2 See_Comment N [A utomated message] The = Eosinophils #) system whic h generated this result tra nsmitted reference range : <=0.5. The reference r megan was not used to int erpret this result as normal/abnormal . [facility] CenterOcgraahOJNMOTMWTV8513-14-68 20:32:00 Test Item Value Reference Range Interpretation Comments Basophils # (test code 0.1 See_Comment N [Aut omated message] The = Basophils #) system which generated this result tra nsmitted reference range : <=0.2. The reference r megan was not used to int erpret this result as normal/abnormal . [facility] CenterTwstibpBNDWQBMUKW4497-27-88 20:32:00 Test Item Value Reference Range Interpretation Comments Lymphocytes (test code = Lymphocytes) 21.3 20.0-40.0 N [facility] CenterJnxnurzJNBJAOOANU0134-98-39 20:32:00 Test Item Value Reference Range Interpretation Comments Segs-Bands # (test code = Segs-Bands #) 11.4 1.5-8.1 H [facility] CenterGfiktsxINWJSZYSQX7064-40-32 20:32:00 Test Item Value Reference Range Interpretation Comments Eosinophils (test code = 1.1 See_Comment N [A utomated message] The Eosinophils) system which ge nerated this result tra nsmitted reference range : <=4.0. The reference r megan was not used to int erpret this result as normal/abnormal . [facility] CenterMbphpoxDDPJHEZVGS6554-47-36 20:32:00 Test Item Value Reference Range Interpretation Comments Basophils (test code = 0.5 See_Comment N [Aut omated message] The Basophils) system which ge nerated this result tra nsmitted reference range : <=1.0. The reference r megan was not used to int erpret this result as normal/abnormal . [facility] CenterRuchmfnEFDIJOBOOT2330-95-17 20:32:00 Test Item Value Reference Range Interpretation Comments Monocytes (test code = Monocytes) 4.1 2.0-12.0 N [facility] CenterIqygrtcUMMBIHPLJO6633-58-69 20:32:00 Test Item Value Reference Range Interpretation Comments Lymphocytes # (test code = Lymphocytes 3.3 1.0-5.5 N #) [facility] CenterSjxnqgrSPLZKEXFHF3416-73-56 20:32:00 Test Item Value Reference Range Interpretation Comments Monocytes # (test code 0.6 See_Comment N [Aut omated message] The = Monocytes #) system which generated this result tra nsmitted reference range : <=0.8. The reference r megan was not used to int erpret this result as normal/abnormal . [facility] CenterYgryljsZOIIKVMITB6200-38-62 20:32:00 Test Item Value Reference Range Interpretation Comments PTT (test code = PTT) 28.5 s 22.9-35.8 N [facility] CenterEvkwwjmRYLLCPQCIO2685-02-59 20:32:00 Test Item Value Reference Range Interpretation Comments PT (test code = PT) 12.9 s 12.0-14.7 N [facility] CenterYfwdapyWUWFOYWUPH1342-42-00 20:32:00 Test Item Value Reference Range Interpretation Comments INR (test code = INR) 0.95 0.85-1.17 N [facility]LlegxyoBWQAKXQOEO9247-12-78 20:32:00 Test Item Value Reference Range Interpretation Comments UA Urobilinogen (test code *NA*(11/26/2012 0.1-1.0 = UA Urobilinogen) 14:32:00) [facility] HospitalUhdtxbiNXUSNECYQM6294-70-80 20:32:00 Test Item Value Reference Range Interpretation Comments UA Bacteria (test code Occasional /HPF = UA Bacteria) *NA*(11/26/2012 14:32:00) [facility]PdhfeixOCHNQFMYYK7556-35-19 20:32:00 Test Item Value Reference Range Interpretation Comments UA RBC (test code = 1 See_Comment N [Automa ashanti message] The UA RBC) system which ge nerated this result transmit ashanti reference range : <=2. The reference range was not used to interpr et this result as carmen l/abnormal. [facility]OjxlkcuHBRXSOOSSY5816-68-93 20:32:00 Test Item Value Reference Range Interpretation Comments UA WBC (test code = 3 See_Comment N [Automa ashanti message] The UA WBC) system which ge nerated this result transmit ashanti reference range : <=5. The reference range was not used to interpr et this result as carmen l/abnormal. [facility] HospitalNegbjeqEUWMBKDMIM6969-08-23 20:32:00 Test Item Value Reference Range Interpretation Comments UA Sq Epi (test code = Many /LPF A UA Sq Epi) *ABN*(11/26/2012 14:32:00) [facility] CenterGbnyrxoBWKKWKDDHQ7643-07-47 20:32:00 Test Item Value Reference Range Interpretation Comments Micro? (test code = Performed *NA*(11/26/2012 Micro?) 14:32:00) [facility] HospitalLnlfhwhCIYJQAVUNJ5525-08-92 20:32:00 Test Item Value Reference Range Interpretation Comments UA Mucus (test code = Few /LPF UA Mucus) *NA*(11/26/2012 14:32:00) [facility] CenterCssfzkoYDJYMJUMUZ1478-49-97 20:32:00 Test Item Value Reference Range Interpretation Comments UA Bili (test code = Negative *NA*(11/26/2012 UA Bili) 14:32:00) [facility] CenterSlbgsviGEDQASMMIX9035-03-11 20:32:00 Test Item Value Reference Range Interpretation Comments UA Ketones (test code Negative mg/dL = UA Ketones) *NA*(11/26/2012 14:32:00) [facility] CenterWpujbppTZIHAMNCF4527-72-86 20:32:00 Test Item Value Reference Range Interpretation Comments A/G Ratio (test code = A/G Ratio) 0.9 0.7-1.6 N [facility]AnivrraRWPZTGKEKI3773-30-88 20:32:00 Test Item Value Reference Range Interpretation Comments UA Protein (test code Negative mg/dL N = UA Protein) (11/26/2012 14:32:00) [facility] HospitalCcliqmmHJZGMVUPRY1592-13-21 20:32:00 Test Item Value Reference Range Interpretation Comments UA Leuk Est (test code Trace *ABN*(11/26/2012 A = UA Leuk Est) 14:32:00) [facility] HospitalWfybkmoEAFIGECMAG2247-14-94 20:32:00 Test Item Value Reference Range Interpretation Comments UA Nitrite (test code Negative (11/26/2012 N = UA Nitrite) 14:32:00) [facility] HospitalGjtgruvGRVMRFHNHS2874-42-84 20:32:00 Test Item Value Reference Range Interpretation Comments UA Blood (test code = Negative (11/26/2012 N UA Blood) 14:32:00) [facility] HospitalJvqydkdLLHZPDGAAK7533-31-93 20:32:00 Test Item Value Reference Range Interpretation Comments UA Color (test code = Yellow *NA*(11/26/2012 UA Color) 14:32:00) [facility] HospitalUrbsnxnHTAQNZCOLN5716-03-92 20:32:00 Test Item Value Reference Range Interpretation Comments UA pH (test code = UA pH) 6.0 5.0-8.0 N [facility] HospitalWdrzjsoQTOWAETUAJ3430-99-16 20:32:00 Test Item Value Reference Range Interpretation Comments UA Spec Grav (test code = UA Spec Grav) 1.016 N [facility] HospitalOwoqeoxXJPOOBBSNP0047-27-25 20:32:00 Test Item Value Reference Range Interpretation Comments UA Turbidity (test code Slight A = UA Turbidity) *ABN*(11/26/2012 14:32:00) [facility] HospitalCslkuonNFWOEEJXGG4925-86-70 20:32:00 Test Item Value Reference Range Interpretation Comments UA Glucose (test code Negative mg/dL = UA Glucose) *NA*(11/26/2012 14:32:00) [facility] CenterTetlosiHBHDBNXKH6686-69-37 20:32:00 Test Item Value Reference Range Interpretation Comments Globulin (test code = Globulin) 4.4 2.0-4.0 H [facility] CenterZkzswhqPENAMQRUV8588-92-50 20:32:00 Test Item Value Reference Range Interpretation Comments AGAP (test code = AGAP) 13.0 10.0-20.0 N [facility] CenterOoaktexJREPKJRPQ3692-87-09 20:32:00 Test Item Value Reference Range Interpretation Comments B/C Ratio (test code = B/C Ratio) 18 6-25 N [facility] CenterPetqlcuUPTPNIXNJ5179-96-06 20:32:00 Test Item Value Reference Range Interpretation Comments AST (test code = AST) 24 See_Comment N [Auto mated message] The system which ge nerated this result transmit ashanti reference range : <=37. The reference range was not used to interpr et this result as carmen l/abnormal. [facility] CenterUhdlpmtZBOXICODV3418-64-60 20:32:00 Test Item Value Reference Range Interpretation Comments Bili Total (test code = Bili Total) 0.5 0.2-1.3 N [facility] CenterBqlpylvLJXNINFYG7071-96-01 20:32:00 Test Item Value Reference Range Interpretation Comments Alk Phos (test code = Alk Phos) 98 39-136 N [facility] CenterXoxqnpzJPFRYYOCS0645-71-97 20:32:00 Test Item Value Reference Range Interpretation Comments ALT (test code = ALT) 37 See_Comment N [Auto mated message] The system which ge nerated this result transmit ashanti reference range : <=65. The reference range was not used to interpr et this result as carmen l/abnormal. [facility] CenterUxnzrozNTASLBSVP2519-92-20 20:32:00 Test Item Value Reference Range Interpretation Comments Total Protein (test code = Total 8.5 6.4-8.4 H Protein) [facility] CenterLndiiqhVUTRNNMUO7494-39-64 20:32:00 Test Item Value Reference Range Interpretation Comments eGFR (test code = eGFR) 128 [facility] CenterQkxxezgZBYTYFUTS7706-91-83 20:32:00 Test Item Value Reference Range Interpretation Comments Albumin Lvl (test code = Albumin Lvl) 4.1 3.5-5.0 N [facility] CenterAohalyyDLXYXWSLE4565-38-42 20:32:00 Test Item Value Reference Range Interpretation Comments Chloride Lvl (test code = Chloride Lvl) 100 95-109 N [facility] CenterTosgmfkMREVUNQAB6414-15-71 20:32:00 Test Item Value Reference Range Interpretation Comments A/G Ratio (test code = A/G Ratio) 0.9 0.7-1.6 N [facility] CenterRoeizfsJZVNETIJF3590-32-57 20:32:00 Test Item Value Reference Range Interpretation Comments Globulin (test code = Globulin) 4.4 2.0-4.0 H [facility] CenterTzulirbJZGTJOFGZ1092-57-42 20:32:00 Test Item Value Reference Range Interpretation Comments AGAP (test code = AGAP) 13.0 10.0-20.0 N [facility] CenterOhpmpjcBNHWYCQSX8778-87-95 20:32:00 Test Item Value Reference Range Interpretation Comments B/C Ratio (test code = B/C Ratio) 18 6-25 N [facility] CenterJvcnpobEAUOXAOVE5198-50-04 20:32:00 Test Item Value Reference Range Interpretation Comments Potassium Lvl (test code = Potassium 4.0 3.5-5.1 N Lvl) [facility] CenterUwtawijQLFJHIEYX3246-63-49 20:32:00 Test Item Value Reference Range Interpretation Comments AST (test code = AST) 24 See_Comment N [Auto mated message] The system which ge nerated this result transmit ashanti reference range : <=37. The reference range was not used to interpr et this result as carmen l/abnormal. [facility] CenterCotxisiRWBWTDWYD7165-22-78 20:32:00 Test Item Value Reference Range Interpretation Comments Bili Total (test code = Bili Total) 0.5 0.2-1.3 N [facility] CenterUllgtlzFMIWGCAQO3561-68-09 20:32:00 Test Item Value Reference Range Interpretation Comments Alk Phos (test code = Alk Phos) 98 39-136 N [facility] CenterKrbqvzkTSKVYQBBG7864-68-15 20:32:00 Test Item Value Reference Range Interpretation Comments ALT (test code = ALT) 37 See_Comment N [Auto mated message] The system which ge nerated this result transmit ashanti reference range : <=65. The reference range was not used to interpr et this result as carmen l/abnormal. [facility] CenterReevfifIYBIBZFDY4903-99-72 20:32:00 Test Item Value Reference Range Interpretation Comments Total Protein (test code = Total 8.5 6.4-8.4 H Protein) [facility] CenterNnovbitEEEABSSAJ0294-97-18 20:32:00 Test Item Value Reference Range Interpretation Comments eGFR (test code = eGFR) 128 [facility] CenterQmibobhZCAYIWKJO5781-50-23 20:32:00 Test Item Value Reference Range Interpretation Comments Albumin Lvl (test code = Albumin Lvl) 4.1 3.5-5.0 N [facility] CenterRdgskitNAFNFPGAO0472-06-99 20:32:00 Test Item Value Reference Range Interpretation Comments Chloride Lvl (test code = Chloride Lvl) 100 95-109 N [facility] CenterCknqtxgSWSEGDYTM2107-97-57 20:32:00 Test Item Value Reference Range Interpretation Comments Potassium Lvl (test code = Potassium 4.0 3.5-5.1 N Lvl) [facility] CenterIzimmufUMOSRTPVB6859-39-79 20:32:00 Test Item Value Reference Range Interpretation Comments CO2 (test code = CO2) 28 24-32 N [facility] CenterYnaqfkcYVBSEFJOH5408-95-79 20:32:00 Test Item Value Reference Range Interpretation Comments CO2 (test code = CO2) 28 24-32 N [facility] CenterLdplxvuYNMXVMZDY8995-66-58 20:32:00 Test Item Value Reference Range Interpretation Comments Sodium Lvl (test code = Sodium Lvl) 137 135-145 N [facility] CenterHqljeduEYRDQTJHM7436-34-53 20:32:00 Test Item Value Reference Range Interpretation Comments Calcium Lvl (test code = Calcium Lvl) 9.1 8.5-10.5 N [facility] CenterZidalicLOYNRHDBK5700-44-10 20:32:00 Test Item Value Reference Range Interpretation Comments Creatinine Lvl (test code = Creatinine 0.5 0.5-1.4 N Lvl) [facility] CenterNxipftxJUIBVPDCR3992-69-26 20:32:00 Test Item Value Reference Range Interpretation Comments Glucose Lvl (test code = Glucose Lvl) 81 70-99 N [facility] CenterFzmiqxhPMUOQYPOE8377-44-97 20:32:00 Test Item Value Reference Range Interpretation Comments BUN (test code = BUN) 9 7-22 N [facility] CenterXoybjqlQJMYCTREN2062-75-15 20:32:00 Test Item Value Reference Range Interpretation Comments Vitamin D 1,25 (OH)2 Total (test code = 52 18-72 Vitamin D 1,25 (OH)2 Total) [facility] CenterLepecvzOPVYSVUHS3680-15-90 20:32:00 Test Item Value Reference Range Interpretation Comments Vitamin D2 1,25 (OH)2 (test code = no gt Vitamin D2 1,25 (OH)2) [facility] CenterHdmttcmWUDISKXKV8474-18-04 20:32:00 Test Item Value Reference Range Interpretation Comments Vitamin D3 1,25 (OH)2 (test code = 52 Vitamin D3 1,25 (OH)2) [facility]OhotgtwLLIDLOFFOR7937-82-87 20:32:00 Test Item Value Reference Range Interpretation Comments MPV (test code = MPV) 8.7 7.4-10.4 N [facility] CenterTjvalruUQASXOWQDJ5580-26-61 20:32:00 Test Item Value Reference Range Interpretation Comments Hgb (test code = Hgb) 12.0 12.0-16.0 N [facility] CenterFviqheyQGGWYGVEV2579-35-85 20:32:00 Test Item Value Reference Range Interpretation Comments Sodium Lvl (test code = Sodium Lvl) 137 135-145 N [facility] CenterKzxipokNDUEJXVABU7791-24-27 20:32:00 Test Item Value Reference Range Interpretation Comments RBC (test code = RBC) 4.51 4.20-5.40 N [facility] CenterPkcetneGPNNLFBTND1648-91-39 20:32:00 Test Item Value Reference Range Interpretation Comments WBC (test code = WBC) 15.6 3.7-10.4 H [facility] CenterAtwmfscYKKQALGLNG5046-80-44 20:32:00 Test Item Value Reference Range Interpretation Comments Hct (test code = Hct) 37.0 36.0-48.0 N [facility] CenterXbarymuGEONBEEYUD2646-59-27 20:32:00 Test Item Value Reference Range Interpretation Comments MCV (test code = MCV) 82.0 81.0-99.0 N [facility] CenterVwggqzmVPPPEUPNOT8718-15-03 20:32:00 Test Item Value Reference Range Interpretation Comments RDW (test code = RDW) 15.9 11.5-14.5 H [facility] CenterZrfejemONPKUYHJOA2644-97-41 20:32:00 Test Item Value Reference Range Interpretation Comments MCHC (test code = MCHC) 32.3 32.0-36.0 N [facility] CenterOhfcfnxUPBKJFXNMH6479-85-01 20:32:00 Test Item Value Reference Range Interpretation Comments MCH (test code = MCH) 26.5 pg 27.0-31.0 L [facility] CenterMbarvusGRDZCNVLWB1587-75-86 20:32:00 Test Item Value Reference Range Interpretation Comments Platelet (test code = Platelet) 371 133-450 N [facility] CenterLfaydfmCTHHUWIJAN5853-53-56 20:32:00 Test Item Value Reference Range Interpretation Comments Polychrom (test code = Slight (11/26/2012 N Polychrom) 14:32:00) [facility] CenterLrnmqsoLADRHJSYED1288-60-53 20:32:00 Test Item Value Reference Range Interpretation Comments Large Plt (test code = Slight *ABN*(11/26/2012 A Large Plt) 14:32:00) [facility] CenterJxtumtnYSFTQKDJC1769-49-64 20:32:00 Test Item Value Reference Range Interpretation Comments Calcium Lvl (test code = Calcium Lvl) 9.1 8.5-10.5 N [facility] CenterLyhrjnmVJRPZXTLCM7741-50-69 20:32:00 Test Item Value Reference Range Interpretation Comments Segs (test code = Segs) 73.0 45.0-75.0 N [facility] CenterZlawwatTEWFCZPEDB7652-86-29 20:32:00 Test Item Value Reference Range Interpretation Comments Eosinophils # (test code 0.2 See_Comment N [A utomated message] The = Eosinophils #) system whic h generated this result tra nsmitted reference range : <=0.5. The reference r megan was not used to int erpret this result as normal/abnormal . [facility] CenterCpkuptnDKWRVKWXWX7912-59-59 20:32:00 Test Item Value Reference Range Interpretation Comments Basophils # (test code 0.1 See_Comment N [Aut omated message] The = Basophils #) system which generated this result tra nsmitted reference range : <=0.2. The reference r megan was not used to int erpret this result as normal/abnormal . [facility] CenterDbxumdjYSMLQYBIMY9643-46-20 20:32:00 Test Item Value Reference Range Interpretation Comments Lymphocytes (test code = Lymphocytes) 21.3 20.0-40.0 N [facility] CenterWndgebgMWPTURHSWF6549-67-34 20:32:00 Test Item Value Reference Range Interpretation Comments Segs-Bands # (test code = Segs-Bands #) 11.4 1.5-8.1 H [facility] CenterTkozmegEUSTDWAYJG3451-89-02 20:32:00 Test Item Value Reference Range Interpretation Comments Eosinophils (test code = 1.1 See_Comment N [A utomated message] The Eosinophils) system which ge nerated this result tra nsmitted reference range : <=4.0. The reference r megan was not used to int erpret this result as normal/abnormal . [facility] CenterWgyjisnQMZTLZWDPN5455-60-72 20:32:00 Test Item Value Reference Range Interpretation Comments Basophils (test code = 0.5 See_Comment N [Aut omated message] The Basophils) system which ge nerated this result tra nsmitted reference range : <=1.0. The reference r megan was not used to int erpret this result as normal/abnormal . [facility] CenterKjwidrlRFKVCZZRBW1582-41-73 20:32:00 Test Item Value Reference Range Interpretation Comments Monocytes (test code = Monocytes) 4.1 2.0-12.0 N [facility] CenterZggeaqeGFQZEXNKSE4738-55-63 20:32:00 Test Item Value Reference Range Interpretation Comments Lymphocytes # (test code = Lymphocytes 3.3 1.0-5.5 N #) [facility] CenterRhopconFMNEBFLJWQ4788-44-00 20:32:00 Test Item Value Reference Range Interpretation Comments Monocytes # (test code 0.6 See_Comment N [Aut omated message] The = Monocytes #) system which generated this result tra nsmitted reference range : <=0.8. The reference r megan was not used to int erpret this result as normal/abnormal . [facility]UajpntwSHCCRXBHA7291-75-66 20:32:00 Test Item Value Reference Range Interpretation Comments Creatinine Lvl (test code = Creatinine 0.5 0.5-1.4 N Lvl) [facility] CenterZfbdyvzMXHTJGFGUF3798-91-22 20:32:00 Test Item Value Reference Range Interpretation Comments PTT (test code = PTT) 28.5 s 22.9-35.8 N [facility] CenterKjzmxlgTKQODAKINI2881-08-79 20:32:00 Test Item Value Reference Range Interpretation Comments PT (test code = PT) 12.9 s 12.0-14.7 N [facility] CenterHjotizgLVJTCLCDXC1142-35-13 20:32:00 Test Item Value Reference Range Interpretation Comments INR (test code = INR) 0.95 0.85-1.17 N [facility] HospitalVxqljjoPAGUFPOYFV2022-90-35 20:32:00 Test Item Value Reference Range Interpretation Comments UA Urobilinogen (test code *NA*(11/26/2012 0.1-1.0 = UA Urobilinogen) 14:32:00) [facility] HospitalQttwjriROWLSIFKAR6676-83-24 20:32:00 Test Item Value Reference Range Interpretation Comments UA Bacteria (test code Occasional /HPF = UA Bacteria) *NA*(11/26/2012 14:32:00) [facility]oxmvlvYOQJJSKIAH1665-15-26 20:32:00 Test Item Value Reference Range Interpretation Comments UA RBC (test code = 1 See_Comment N [Automa ashanti message] The UA RBC) system which ge nerated this result transmit ashanti reference range : <=2. The reference range was not used to interpr et this result as carmen l/abnormal. [facility]anoVwftrmlSFFMEUKIQT0145-88-70 20:32:00 Test Item Value Reference Range Interpretation Comments UA WBC (test code = 3 See_Comment N [Automa ashanti message] The UA WBC) system which ge nerated this result transmit ashanti reference range : <=5. The reference range was not used to interpr et this result as carmen l/abnormal. [facility]anoXuxspriTCASIFKDQI6842-59-44 20:32:00 Test Item Value Reference Range Interpretation Comments UA Sq Epi (test code = Many /LPF A UA Sq Epi) *ABN*(11/26/2012 14:32:00) [facility]anoAhrdomcQMMTWXFZGR4118-17-75 20:32:00 Test Item Value Reference Range Interpretation Comments Micro? (test code = Performed *NA*(11/26/2012 Micro?) 14:32:00) [facility]CqsxepkCUEITZXZMF2881-51-71 20:32:00 Test Item Value Reference Range Interpretation Comments UA Mucus (test code = Few /LPF UA Mucus) *NA*(11/26/2012 14:32:00) [facility]IvflodaVKPAFHQGT6994-44-45 20:32:00 Test Item Value Reference Range Interpretation Comments Glucose Lvl (test code = Glucose Lvl) 81 70-99 N [facility] HospitalGjqkaaoJDGIFXRWNT1834-29-40 20:32:00 Test Item Value Reference Range Interpretation Comments UA Bili (test code = Negative *NA*(11/26/2012 UA Bili) 14:32:00) [facility] HospitalQnxcctdWIPTSRPDKM0691-81-68 20:32:00 Test Item Value Reference Range Interpretation Comments UA Ketones (test code Negative mg/dL = UA Ketones) *NA*(11/26/2012 14:32:00) [facility]YvgjdxfQFFETVUPOU4516-15-67 20:32:00 Test Item Value Reference Range Interpretation Comments UA Protein (test code Negative mg/dL N = UA Protein) (11/26/2012 14:32:00) [facility] HospitalQnsvvomLNCGFNGSGZ3764-86-37 20:32:00 Test Item Value Reference Range Interpretation Comments UA Leuk Est (test code Trace *ABN*(11/26/2012 A = UA Leuk Est) 14:32:00) [facility] HospitalWzgsdemDCMOSJUMYU3454-15-62 20:32:00 Test Item Value Reference Range Interpretation Comments UA Nitrite (test code Negative (11/26/2012 N = UA Nitrite) 14:32:00) [facility] HospitalBdfcivkRYCQBANCIW9246-91-27 20:32:00 Test Item Value Reference Range Interpretation Comments UA Blood (test code = Negative (11/26/2012 N UA Blood) 14:32:00) [facility] HospitalNerxrvdHKUEPPOLNJ7396-48-55 20:32:00 Test Item Value Reference Range Interpretation Comments UA Color (test code = Yellow *NA*(11/26/2012 UA Color) 14:32:00) [facility] HospitalDvfgfnnTZTRTRTABF2657-51-98 20:32:00 Test Item Value Reference Range Interpretation Comments UA pH (test code = UA pH) 6.0 5.0-8.0 N [facility] HospitalPgkuuczPQOZXKBGJP1703-44-72 20:32:00 Test Item Value Reference Range Interpretation Comments UA Spec Grav (test code = UA Spec Grav) 1.016 N [facility] HospitalLdjenklCDXZHTGFJG1252-27-09 20:32:00 Test Item Value Reference Range Interpretation Comments UA Turbidity (test code Slight A = UA Turbidity) *ABN*(11/26/2012 14:32:00) [facility] CenterHbczniiPPYGPVWOQ2523-28-03 20:32:00 Test Item Value Reference Range Interpretation Comments BUN (test code = BUN) 9 7-22 N [facility] HospitalWmeictvGLMWUCQZLM8560-65-23 20:32:00 Test Item Value Reference Range Interpretation Comments UA Glucose (test code Negative mg/dL = UA Glucose) *NA*(11/26/2012 14:32:00) [facility] CenterQvjhapiXFUPQTTIN8064-55-58 20:32:00 Test Item Value Reference Range Interpretation Comments Vitamin D 1,25 (OH)2 Total (test code = 52 18-72 Vitamin D 1,25 (OH)2 Total) [facility] CenterYpuqxsoNGOUVGKWV5825-66-25 20:32:00 Test Item Value Reference Range Interpretation Comments Vitamin D2 1,25 (OH)2 (test code = no gt Vitamin D2 1,25 (OH)2) [facility] CenterWzqchdjNOZNDASNZ5150-80-36 20:32:00 Test Item Value Reference Range Interpretation Comments Vitamin D3 1,25 (OH)2 (test code = 52 Vitamin D3 1,25 (OH)2) [facility] CenterHqwvvtuCKEQFIYTJR7727-82-53 20:32:00 Test Item Value Reference Range Interpretation Comments MPV (test code = MPV) 8.7 7.4-10.4 N [facility] CenterWhqrtsiFNNLGMNXHF1370-52-31 20:32:00 Test Item Value Reference Range Interpretation Comments Hgb (test code = Hgb) 12.0 12.0-16.0 N [facility] CenterWvxmnjoGEWMYDWWPT6596-10-83 20:32:00 Test Item Value Reference Range Interpretation Comments RBC (test code = RBC) 4.51 4.20-5.40 N [facility] CenterSvmkxxhCHUCUYPHNK0658-59-36 20:32:00 Test Item Value Reference Range Interpretation Comments WBC (test code = WBC) 15.6 3.7-10.4 H [facility] CenterDqdgidyHCBBCOTEQH1151-35-88 20:32:00 Test Item Value Reference Range Interpretation Comments Hct (test code = Hct) 37.0 36.0-48.0 N [facility] CenterBqjfyllADKHYUQRTF1385-79-13 20:32:00 Test Item Value Reference Range Interpretation Comments MCV (test code = MCV) 82.0 81.0-99.0 N [facility] CenterFgskcobIUGPATVAPS9076-45-70 20:32:00 Test Item Value Reference Range Interpretation Comments RDW (test code = RDW) 15.9 11.5-14.5 H [facility] CenterSzkmnrlSDPUMSQFQ1772-75-43 20:32:00 Test Item Value Reference Range Interpretation Comments A/G Ratio (test code = A/G Ratio) 0.9 0.7-1.6 N [facility] CenterDallqgfWNVMAAUIE6721-88-46 20:32:00 Test Item Value Reference Range Interpretation Comments Globulin (test code = Globulin) 4.4 2.0-4.0 H [place] [address]-02-21 20:32:00 Test Item Value Reference Range Interpretation Comments MCHC (test code = MCHC) 32.3 32.0-36.0 N [facility] CenterFsqdfyiBLQHNBANO9030-17-87 20:32:00 Test Item Value Reference Range Interpretation Comments AGAP (test code = AGAP) 13.0 10.0-20.0 N [facility] CenterHnmbdjrJMWZTGPNA9697-85-87 20:32:00 Test Item Value Reference Range Interpretation Comments B/C Ratio (test code = B/C Ratio) 18 6-25 N [facility] CenterZscnooeRCGJRUMEB7291-44-11 20:32:00 Test Item Value Reference Range Interpretation Comments AST (test code = AST) 24 See_Comment N [Auto mated message] The system which ge nerated this result transmit ashanti reference range : <=37. The reference range was not used to interpr et this result as carmen l/abnormal. [facility] CenterGxelezmRIUVWZFOX2425-87-21 20:32:00 Test Item Value Reference Range Interpretation Comments Bili Total (test code = Bili Total) 0.5 0.2-1.3 N [facility] CenterJejzamfXCRKNQRIO2956-54-39 20:32:00 Test Item Value Reference Range Interpretation Comments Alk Phos (test code = Alk Phos) 98 39-136 N [facility] CenterLclllwgQUWJSLLRN9077-40-69 20:32:00 Test Item Value Reference Range Interpretation Comments ALT (test code = ALT) 37 See_Comment N [Auto mated message] The system which ge nerated this result transmit ashanti reference range : <=65. The reference range was not used to interpr et this result as carmen l/abnormal. [facility] CenterWdlqjbkHDYEDWCOS7276-08-04 20:32:00 Test Item Value Reference Range Interpretation Comments Total Protein (test code = Total 8.5 6.4-8.4 H Protein) [facility] CenterVvefkusXSQIMCRSF0769-00-88 20:32:00 Test Item Value Reference Range Interpretation Comments eGFR (test code = eGFR) 128 [facility] CenterCujgsdoNKUWSSHDS3813-12-41 20:32:00 Test Item Value Reference Range Interpretation Comments Albumin Lvl (test code = Albumin Lvl) 4.1 3.5-5.0 N [facility] CenterYaimisoFQESFBCLA9551-52-30 20:32:00 Test Item Value Reference Range Interpretation Comments Chloride Lvl (test code = Chloride Lvl) 100 95-109 N [facility] CenterXwdknooPGLBTEEHNU1311-69-81 20:32:00 Test Item Value Reference Range Interpretation Comments MCH (test code = MCH) 26.5 pg 27.0-31.0 L [facility] CenterWblpewbTLGANXRUJ3291-32-85 20:32:00 Test Item Value Reference Range Interpretation Comments Potassium Lvl (test code = Potassium 4.0 3.5-5.1 N Lvl) [facility] CenterMrcdoaiTOELORXWF4235-74-03 20:32:00 Test Item Value Reference Range Interpretation Comments CO2 (test code = CO2) 28 24-32 N [facility] CenterLjrcdteLWYTVECAL4717-19-82 20:32:00 Test Item Value Reference Range Interpretation Comments Sodium Lvl (test code = Sodium Lvl) 137 135-145 N [facility] CenterJcgordyYZYCJKLOV9604-33-18 20:32:00 Test Item Value Reference Range Interpretation Comments Calcium Lvl (test code = Calcium Lvl) 9.1 8.5-10.5 N [facility] CenterGyyatiwSWNCWTAZY8077-90-74 20:32:00 Test Item Value Reference Range Interpretation Comments Creatinine Lvl (test code = Creatinine 0.5 0.5-1.4 N Lvl) [facility] CenterJkobxydGZJFFSMFJ1283-52-17 20:32:00 Test Item Value Reference Range Interpretation Comments Glucose Lvl (test code = Glucose Lvl) 81 70-99 N [facility] CenterPxakzimQJMXQSQXX3866-94-25 20:32:00 Test Item Value Reference Range Interpretation Comments BUN (test code = BUN) 9 7-22 N [facility] CenterKutusgpYWHHZNVLM1860-67-27 20:32:00 Test Item Value Reference Range Interpretation Comments Vitamin D 1,25 (OH)2 Total (test code = 52 18-72 Vitamin D 1,25 (OH)2 Total) [facility] CenterElhhnwxRHSEAFKMY1564-12-30 20:32:00 Test Item Value Reference Range Interpretation Comments Vitamin D2 1,25 (OH)2 (test code = no gt Vitamin D2 1,25 (OH)2) [facility] CenterWzbziixWDVQEBZKI3076-09-58 20:32:00 Test Item Value Reference Range Interpretation Comments Vitamin D3 1,25 (OH)2 (test code = 52 Vitamin D3 1,25 (OH)2) [facility]YqwyxdvCDMOWKNIXH2481-54-43 20:32:00 Test Item Value Reference Range Interpretation Comments Platelet (test code = Platelet) 371 133-450 N [facility] CenterRvcckgtBUCJDKODSO0937-67-96 20:32:00 Test Item Value Reference Range Interpretation Comments MPV (test code = MPV) 8.7 7.4-10.4 N [facility] CenterRaluiwbQBMHBYZFNF1298-85-30 20:32:00 Test Item Value Reference Range Interpretation Comments Hgb (test code = Hgb) 12.0 12.0-16.0 N [facility] CenterVtcwsyqENLLVFAALX4153-72-77 20:32:00 Test Item Value Reference Range Interpretation Comments RBC (test code = RBC) 4.51 4.20-5.40 N [facility] CenterPbtpirbITIOZAOOGM8914-24-20 20:32:00 Test Item Value Reference Range Interpretation Comments WBC (test code = WBC) 15.6 3.7-10.4 H [facility] CenterMbksfwyKKUSOYEYFJ4380-96-06 20:32:00 Test Item Value Reference Range Interpretation Comments Hct (test code = Hct) 37.0 36.0-48.0 N [facility] CenterNlmsnhzYPLCIZQIRS6251-08-21 20:32:00 Test Item Value Reference Range Interpretation Comments MCV (test code = MCV) 82.0 81.0-99.0 N [facility] CenterOdtmkbkQBEEFORWSM5965-63-07 20:32:00 Test Item Value Reference Range Interpretation Comments RDW (test code = RDW) 15.9 11.5-14.5 H [facility] CenterMjuqlckLKUOOKLIVR3841-55-76 20:32:00 Test Item Value Reference Range Interpretation Comments MCHC (test code = MCHC) 32.3 32.0-36.0 N [facility] CenterRzwnyfxBEFTRJEBHJ2203-53-20 20:32:00 Test Item Value Reference Range Interpretation Comments MCH (test code = MCH) 26.5 pg 27.0-31.0 L [facility] CenterDthudvsGNBJGLRGIA1955-99-68 20:32:00 Test Item Value Reference Range Interpretation Comments Platelet (test code = Platelet) 371 133-450 N [facility] CenterXcutqeoMHHTLNUXEK1956-12-72 20:32:00 Test Item Value Reference Range Interpretation Comments Polychrom (test code = Slight (11/26/2012 N Polychrom) 14:32:00) [facility] CenterFfjjjgmUTQXRPHFJD1112-15-54 20:32:00 Test Item Value Reference Range Interpretation Comments Polychrom (test code = Slight (11/26/2012 N Polychrom) 14:32:00) [facility] CenterPxspjunURMEYWJWSC4514-88-04 20:32:00 Test Item Value Reference Range Interpretation Comments Large Plt (test code = Slight *ABN*(11/26/2012 A Large Plt) 14:32:00) [facility] CenterFveyusoMZMWDIBHOF3027-38-86 20:32:00 Test Item Value Reference Range Interpretation Comments Segs (test code = Segs) 73.0 45.0-75.0 N [facility] CenterGgltndoCHINAMBVJQ8127-45-00 20:32:00 Test Item Value Reference Range Interpretation Comments Eosinophils # (test code 0.2 See_Comment N [A utomated message] The = Eosinophils #) system whic h generated this result tra nsmitted reference range : <=0.5. The reference r megan was not used to int erpret this result as normal/abnormal . [facility] CenterUtjorfcVQRNQKUQLW5114-92-95 20:32:00 Test Item Value Reference Range Interpretation Comments Basophils # (test code 0.1 See_Comment N [Aut omated message] The = Basophils #) system which generated this result tra nsmitted reference range : <=0.2. The reference r megan was not used to int erpret this result as normal/abnormal . [facility] CenterZbfujrnARNXRIKNEV1445-10-48 20:32:00 Test Item Value Reference Range Interpretation Comments Lymphocytes (test code = Lymphocytes) 21.3 20.0-40.0 N [facility] CenterGvjxdnsRCOSXHVDDF6012-44-75 20:32:00 Test Item Value Reference Range Interpretation Comments Segs-Bands # (test code = Segs-Bands #) 11.4 1.5-8.1 H [facility] CenterVoxekftXHANZQIUIZ7942-73-38 20:32:00 Test Item Value Reference Range Interpretation Comments Eosinophils (test code = 1.1 See_Comment N [A utomated message] The Eosinophils) system which ge nerated this result tra nsmitted reference range : <=4.0. The reference r megan was not used to int erpret this result as normal/abnormal . [facility] CenterUycycxzWGFPWYEMZU8653-44-45 20:32:00 Test Item Value Reference Range Interpretation Comments Basophils (test code = 0.5 See_Comment N [Aut omated message] The Basophils) system which ge nerated this result tra nsmitted reference range : <=1.0. The reference r megna was not used to int erpret this result as normal/abnormal . [facility] CenterBdjytprIWCOKIXKGZ7586-01-87 20:32:00 Test Item Value Reference Range Interpretation Comments Monocytes (test code = Monocytes) 4.1 2.0-12.0 N [facility] CenterAykvbuuFSBOTDTXAU3795-51-46 20:32:00 Test Item Value Reference Range Interpretation Comments Large Plt (test code = Slight *ABN*(11/26/2012 A Large Plt) 14:32:00) [facility] CenterEyfgxhaAUSJDVMHZO7115-43-33 20:32:00 Test Item Value Reference Range Interpretation Comments Lymphocytes # (test code = Lymphocytes 3.3 1.0-5.5 N #) [facility] CenterYzertrvFURZUKBSLZ5513-27-29 20:32:00 Test Item Value Reference Range Interpretation Comments Monocytes # (test code 0.6 See_Comment N [Aut omated message] The = Monocytes #) system which generated this result tra nsmitted reference range : <=0.8. The reference r megan was not used to int erpret this result as normal/abnormal . [facility] CenterCgyuvjlUBFLRYADAH7883-45-44 20:32:00 Test Item Value Reference Range Interpretation Comments PTT (test code = PTT) 28.5 s 22.9-35.8 N [facility] CenterQemqkjwQVMKBPIAIH8615-91-45 20:32:00 Test Item Value Reference Range Interpretation Comments PT (test code = PT) 12.9 s 12.0-14.7 N [facility] CenterCdsbbciNPMSTUFIXH2603-52-25 20:32:00 Test Item Value Reference Range Interpretation Comments INR (test code = INR) 0.95 0.85-1.17 N [facility]KkdotoeBRXMWWFOBA7256-03-61 20:32:00 Test Item Value Reference Range Interpretation Comments UA Urobilinogen (test code *NA*(11/26/2012 0.1-1.0 = UA Urobilinogen) 14:32:00) [facility] HospitalQobpcqnUODBGOXUXT8680-23-02 20:32:00 Test Item Value Reference Range Interpretation Comments UA Bacteria (test code Occasional /HPF = UA Bacteria) *NA*(11/26/2012 14:32:00) [facility] HospitalBxpvvpoDRMGRDXUXI6323-59-86 20:32:00 Test Item Value Reference Range Interpretation Comments UA RBC (test code = 1 See_Comment N [Automa ashanti message] The UA RBC) system which ge nerated this result transmit ashanti reference range : <=2. The reference range was not used to interpr et this result as carmen l/abnormal. [facility]anoRttnwytXKHMOGZLCM5863-13-92 20:32:00 Test Item Value Reference Range Interpretation Comments UA WBC (test code = 3 See_Comment N [Automa ashanti message] The UA WBC) system which ge nerated this result transmit ashanti reference range : <=5. The reference range was not used to interpr et this result as carmen l/abnormal. [facility]anoEfovtunKKOEFANUZY6300-41-92 20:32:00 Test Item Value Reference Range Interpretation Comments UA Sq Epi (test code = Many /LPF A UA Sq Epi) *ABN*(11/26/2012 14:32:00) [facility]LntcquoRBTZJHGBML6211-15-71 20:32:00 Test Item Value Reference Range Interpretation Comments Segs (test code = Segs) 73.0 45.0-75.0 N [facility]anoOpcnwfiLQDDJCOUCF3697-19-62 20:32:00 Test Item Value Reference Range Interpretation Comments Micro? (test code = Performed *NA*(11/26/2012 Micro?) 14:32:00) [facility]anoPjalfyyAWGTPHPPKN7853-68-62 20:32:00 Test Item Value Reference Range Interpretation Comments UA Mucus (test code = Few /LPF UA Mucus) *NA*(11/26/2012 14:32:00) [facility]XrltgniYZHOWPLYHC3272-26-69 20:32:00 Test Item Value Reference Range Interpretation Comments UA Bili (test code = Negative *NA*(11/26/2012 UA Bili) 14:32:00) [facility] HospitalKebkbgnGKAZZEPQVE0848-03-84 20:32:00 Test Item Value Reference Range Interpretation Comments UA Ketones (test code Negative mg/dL = UA Ketones) *NA*(11/26/2012 14:32:00) [facility]MufwcdhBXKRSUVWQS5558-72-37 20:32:00 Test Item Value Reference Range Interpretation Comments UA Protein (test code Negative mg/dL N = UA Protein) (11/26/2012 14:32:00) [facility]anoSmmhmtgLCHFWXKWUP4574-51-72 20:32:00 Test Item Value Reference Range Interpretation Comments UA Leuk Est (test code Trace *ABN*(11/26/2012 A = UA Leuk Est) 14:32:00) [facility] HospitalPcvpludTWKQBLKIHF4321-63-99 20:32:00 Test Item Value Reference Range Interpretation Comments UA Nitrite (test code Negative (11/26/2012 N = UA Nitrite) 14:32:00) [facility] HospitalKsenqxgEABXLRMZZJ2300-11-68 20:32:00 Test Item Value Reference Range Interpretation Comments UA Blood (test code = Negative (11/26/2012 N UA Blood) 14:32:00) [facility] HospitalZganyzvRTBMKIBFHP7806-16-05 20:32:00 Test Item Value Reference Range Interpretation Comments UA Color (test code = Yellow *NA*(11/26/2012 UA Color) 14:32:00) [facility] HospitalTxickxsBAXVVHTFRZ8915-49-44 20:32:00 Test Item Value Reference Range Interpretation Comments UA pH (test code = UA pH) 6.0 5.0-8.0 N [facility] CenterJzzredbLOEGKXSIUI1269-42-51 20:32:00 Test Item Value Reference Range Interpretation Comments Eosinophils # (test code 0.2 See_Comment N [A utomated message] The = Eosinophils #) system whic h generated this result tra nsmitted reference range : <=0.5. The reference r megan was not used to int erpret this result as normal/abnormal . [facility] HospitalZpyvxiuLWEOHJGPNQ0440-81-44 20:32:00 Test Item Value Reference Range Interpretation Comments UA Spec Grav (test code = UA Spec Grav) 1.016 N [facility] HospitalIatqojmUQXIMLKQDR6074-80-52 20:32:00 Test Item Value Reference Range Interpretation Comments UA Turbidity (test code Slight A = UA Turbidity) *ABN*(11/26/2012 14:32:00) [facility] HospitalSxksdheUOAIMVOAZU9898-23-38 20:32:00 Test Item Value Reference Range Interpretation Comments UA Glucose (test code Negative mg/dL = UA Glucose) *NA*(11/26/2012 14:32:00) [facility] CenterOqpdwtkKVVSQBBNUM7928-79-94 20:32:00 Test Item Value Reference Range Interpretation Comments Basophils # (test code 0.1 See_Comment N [Aut omated message] The = Basophils #) system which generated this result tra nsmitted reference range : <=0.2. The reference r megan was not used to int erpret this result as normal/abnormal . [facility] CenterOaygqltKVVNPDOJCE7721-68-76 20:32:00 Test Item Value Reference Range Interpretation Comments Lymphocytes (test code = Lymphocytes) 21.3 20.0-40.0 N [facility] CenterAxzraeoDJVQYWLDIY9013-05-40 20:32:00 Test Item Value Reference Range Interpretation Comments Segs-Bands # (test code = Segs-Bands #) 11.4 1.5-8.1 H [facility] CenterJrdzqgiKVKCREOCBR5290-01-02 20:32:00 Test Item Value Reference Range Interpretation Comments Eosinophils (test code = 1.1 See_Comment N [A utomated message] The Eosinophils) system which ge nerated this result tra nsmitted reference range : <=4.0. The reference r megan was not used to int erpret this result as normal/abnormal . [facility] CenterVoixlqmUVIAXTKFHZ1352-55-83 20:32:00 Test Item Value Reference Range Interpretation Comments Basophils (test code = 0.5 See_Comment N [Aut omated message] The Basophils) system which ge nerated this result tra nsmitted reference range : <=1.0. The reference r megan was not used to int erpret this result as normal/abnormal . [facility] CenterCphkphfNJYPTBKVFV2284-40-85 20:32:00 Test Item Value Reference Range Interpretation Comments Monocytes (test code = Monocytes) 4.1 2.0-12.0 N [facility] CenterBthvzkgNMTCLUNKRH5081-42-75 20:32:00 Test Item Value Reference Range Interpretation Comments Lymphocytes # (test code = Lymphocytes 3.3 1.0-5.5 N #) [facility] CenterAmqjusxIGHYBOFFXZ7731-56-59 20:32:00 Test Item Value Reference Range Interpretation Comments Monocytes # (test code 0.6 See_Comment N [Aut omated message] The = Monocytes #) system which generated this result tra nsmitted reference range : <=0.8. The reference r megan was not used to int erpret this result as normal/abnormal . [facility] CenterHxdjpqvJYQDGAOVRS5157-01-95 20:32:00 Test Item Value Reference Range Interpretation Comments PTT (test code = PTT) 28.5 s 22.9-35.8 N [facility] CenterIptiddpWOAIQJYHFY4819-84-97 20:32:00 Test Item Value Reference Range Interpretation Comments PT (test code = PT) 12.9 s 12.0-14.7 N [facility] CenterVgdzytyXUJUPDXIFQ5298-95-86 20:32:00 Test Item Value Reference Range Interpretation Comments INR (test code = INR) 0.95 0.85-1.17 N [facility]SnfopvxZNLUNNVIO3864-18-28 20:32:00 Test Item Value Reference Range Interpretation Comments A/G Ratio (test code = A/G Ratio) 0.9 0.7-1.6 N [facility] CenterXhephxbKZIFRMWMD3445-35-69 20:32:00 Test Item Value Reference Range Interpretation Comments Globulin (test code = Globulin) 4.4 2.0-4.0 H [facility] CenterXrkmhjzOMVFGVVYU2604-57-40 20:32:00 Test Item Value Reference Range Interpretation Comments AGAP (test code = AGAP) 13.0 10.0-20.0 N [facility] CenterNqdgfxiXZDSPWEIW6916-60-88 20:32:00 Test Item Value Reference Range Interpretation Comments B/C Ratio (test code = B/C Ratio) 18 6-25 N [facility] CenterRoiquqkXVMDIEGON9884-62-35 20:32:00 Test Item Value Reference Range Interpretation Comments AST (test code = AST) 24 See_Comment N [Auto mated message] The system which ge nerated this result transmit ashanti reference range : <=37. The reference range was not used to interpr et this result as carmen l/abnormal. [facility] CenterHmamwapNXZBJXUCK6280-42-02 20:32:00 Test Item Value Reference Range Interpretation Comments Bili Total (test code = Bili Total) 0.5 0.2-1.3 N [facility] CenterQobihamNVDTFPUTZ5512-32-53 20:32:00 Test Item Value Reference Range Interpretation Comments Alk Phos (test code = Alk Phos) 98 39-136 N [facility] CenterSdbysfoEOVOFUCNE8810-74-41 20:32:00 Test Item Value Reference Range Interpretation Comments ALT (test code = ALT) 37 See_Comment N [Auto mated message] The system which ge nerated this result transmit ashanti reference range : <=65. The reference range was not used to interpr et this result as carmen l/abnormal. [facility] CenterJtyyohfVCSWTQLKJ7091-82-83 20:32:00 Test Item Value Reference Range Interpretation Comments Total Protein (test code = Total 8.5 6.4-8.4 H Protein) [facility] CenterClwqkjhBNRWLVYMJ1757-30-20 20:32:00 Test Item Value Reference Range Interpretation Comments eGFR (test code = eGFR) 128 [facility] HospitalMwdrydsYSQGKMDJMI9180-20-08 20:32:00 Test Item Value Reference Range Interpretation Comments UA Urobilinogen (test code *NA*(11/26/2012 0.1-1.0 = UA Urobilinogen) 14:32:00) [facility] CenterUiexjseJVPWGQOHV0311-56-78 20:32:00 Test Item Value Reference Range Interpretation Comments Albumin Lvl (test code = Albumin Lvl) 4.1 3.5-5.0 N [facility] CenterHdrrofuVFLATYFMD6172-67-29 20:32:00 Test Item Value Reference Range Interpretation Comments Chloride Lvl (test code = Chloride Lvl) 100 95-109 N [facility] CenterFryzssvFPQVLOLHY4120-76-17 20:32:00 Test Item Value Reference Range Interpretation Comments Potassium Lvl (test code = Potassium 4.0 3.5-5.1 N Lvl) [facility] CenterSetsxifESAVLWXGH3488-80-67 20:32:00 Test Item Value Reference Range Interpretation Comments CO2 (test code = CO2) 28 24-32 N [facility] CenterCueahexLZUVXCGXG9466-68-26 20:32:00 Test Item Value Reference Range Interpretation Comments Sodium Lvl (test code = Sodium Lvl) 137 135-145 N [facility] CenterBtdnmruQNTXKNZQM6266-33-96 20:32:00 Test Item Value Reference Range Interpretation Comments Calcium Lvl (test code = Calcium Lvl) 9.1 8.5-10.5 N [facility] CenterQaezeueMJLJWBRCX7896-24-00 20:32:00 Test Item Value Reference Range Interpretation Comments Creatinine Lvl (test code = Creatinine 0.5 0.5-1.4 N Lvl) [facility] CenterMzobjklRRQKMATLK0824-24-12 20:32:00 Test Item Value Reference Range Interpretation Comments Glucose Lvl (test code = Glucose Lvl) 81 70-99 N [facility] CenterYzvhshlSCWPMZQOS9801-00-80 20:32:00 Test Item Value Reference Range Interpretation Comments BUN (test code = BUN) 9 7-22 N [facility] CenterCekylzwZDSJHPLUP6831-13-25 20:32:00 Test Item Value Reference Range Interpretation Comments Vitamin D 1,25 (OH)2 Total (test code = 52 18-72 Vitamin D 1,25 (OH)2 Total) [facility] HospitalBubreimWENCMGDBGG6694-19-69 20:32:00 Test Item Value Reference Range Interpretation Comments UA Bacteria (test code Occasional /HPF = UA Bacteria) *NA*(11/26/2012 14:32:00) [facility] CenterKcfqvthRHGJKNTMO8150-32-90 20:32:00 Test Item Value Reference Range Interpretation Comments Vitamin D2 1,25 (OH)2 (test code = no gt Vitamin D2 1,25 (OH)2) [facility] CenterRdvosjjNTYWJVZME4208-23-79 20:32:00 Test Item Value Reference Range Interpretation Comments Vitamin D3 1,25 (OH)2 (test code = 52 Vitamin D3 1,25 (OH)2) [facility] CenterQmtvdovSCDZKZVBVH9123-24-34 20:32:00 Test Item Value Reference Range Interpretation Comments MPV (test code = MPV) 8.7 7.4-10.4 N [facility] CenterUlwwctzGXRVJZINXX5408-92-45 20:32:00 Test Item Value Reference Range Interpretation Comments Hgb (test code = Hgb) 12.0 12.0-16.0 N [facility] CenterEuoaecmFZRUOYZAVW7442-80-09 20:32:00 Test Item Value Reference Range Interpretation Comments RBC (test code = RBC) 4.51 4.20-5.40 N [facility] CenterEhaxsknIFJQNVJYZN8676-20-28 20:32:00 Test Item Value Reference Range Interpretation Comments WBC (test code = WBC) 15.6 3.7-10.4 H [facility] CenterWsgwnhaOJNHZAIXJX7293-70-88 20:32:00 Test Item Value Reference Range Interpretation Comments Hct (test code = Hct) 37.0 36.0-48.0 N [facility] CenterBpmgfggRCRISVDULR9622-81-76 20:32:00 Test Item Value Reference Range Interpretation Comments MCV (test code = MCV) 82.0 81.0-99.0 N [facility] CenterJrhueanQDECAARBSQ2491-05-77 20:32:00 Test Item Value Reference Range Interpretation Comments RDW (test code = RDW) 15.9 11.5-14.5 H [facility] CenterUqieoohUKARIMMDZN2276-54-42 20:32:00 Test Item Value Reference Range Interpretation Comments MCHC (test code = MCHC) 32.3 32.0-36.0 N [facility] HospitalEzxfpwyVOADAGMEXN2530-82-61 20:32:00 Test Item Value Reference Range Interpretation Comments UA RBC (test code = 1 See_Comment N [Automa ashanti message] The UA RBC) system which ge nerated this result transmit ashanti reference range : <=2. The reference range was not used to interpr et this result as carmen l/abnormal. [facility] CenterGrjpyssAQILMDPRMH3742-57-80 20:32:00 Test Item Value Reference Range Interpretation Comments MCH (test code = MCH) 26.5 pg 27.0-31.0 L [facility] CenterFzkbyxsHDRCMVBUZR6964-40-85 20:32:00 Test Item Value Reference Range Interpretation Comments Platelet (test code = Platelet) 371 133-450 N [facility] CenterIwewqtdHEBMXQVQIK8068-03-72 20:32:00 Test Item Value Reference Range Interpretation Comments Polychrom (test code = Slight (11/26/2012 N Polychrom) 14:32:00) [facility] CenterTduzmxgJYZEXFAQPK3011-34-95 20:32:00 Test Item Value Reference Range Interpretation Comments Large Plt (test code = Slight *ABN*(11/26/2012 A Large Plt) 14:32:00) [facility] CenterTjgaksrWLEUJQVDBG2569-56-81 20:32:00 Test Item Value Reference Range Interpretation Comments Segs (test code = Segs) 73.0 45.0-75.0 N [facility] CenterGvolsspHENISQYJXY4421-97-26 20:32:00 Test Item Value Reference Range Interpretation Comments Eosinophils # (test code 0.2 See_Comment N [A utomated message] The = Eosinophils #) system whic h generated this result tra nsmitted reference range : <=0.5. The reference r megan was not used to int erpret this result as normal/abnormal . [facility] CenterGgdjcbqJDRIKKNUBM8409-50-44 20:32:00 Test Item Value Reference Range Interpretation Comments Basophils # (test code 0.1 See_Comment N [Aut omated message] The = Basophils #) system which generated this result tra nsmitted reference range : <=0.2. The reference r megan was not used to int erpret this result as normal/abnormal . [facility] CenterPdhyunjISXJPLODRM3878-54-26 20:32:00 Test Item Value Reference Range Interpretation Comments Lymphocytes (test code = Lymphocytes) 21.3 20.0-40.0 N [facility] CenterRaxsnjaNXHJRQEMLJ5790-68-04 20:32:00 Test Item Value Reference Range Interpretation Comments Segs-Bands # (test code = Segs-Bands #) 11.4 1.5-8.1 H [facility] CenterKtjjmkrTQRMMHPHYP1486-26-51 20:32:00 Test Item Value Reference Range Interpretation Comments Eosinophils (test code = 1.1 See_Comment N [A utomated message] The Eosinophils) system which ge nerated this result tra nsmitted reference range : <=4.0. The reference r megan was not used to int erpret this result as normal/abnormal . [facility] HospitalQtetycrRXLTXUEOUA6449-83-31 20:32:00 Test Item Value Reference Range Interpretation Comments UA WBC (test code = 3 See_Comment N [Automa ashanti message] The UA WBC) system which ge nerated this result transmit ashanti reference range : <=5. The reference range was not used to interpr et this result as carmen l/abnormal. [facility] CenterWnojozfJRBRIJWOVS5980-37-20 20:32:00 Test Item Value Reference Range Interpretation Comments Basophils (test code = 0.5 See_Comment N [Aut omated message] The Basophils) system which ge nerated this result tra nsmitted reference range : <=1.0. The reference r megan was not used to int erpret this result as normal/abnormal . [facility] CenterUmlcrdhPWQZMZDIDT9306-93-30 20:32:00 Test Item Value Reference Range Interpretation Comments Monocytes (test code = Monocytes) 4.1 2.0-12.0 N [facility] CenterGbuwuhxLGUNGGDVDG7790-90-81 20:32:00 Test Item Value Reference Range Interpretation Comments Lymphocytes # (test code = Lymphocytes 3.3 1.0-5.5 N #) [facility] CenterLuuoyipLUDPBBQWWV7991-83-92 20:32:00 Test Item Value Reference Range Interpretation Comments Monocytes # (test code 0.6 See_Comment N [Aut omated message] The = Monocytes #) system which generated this result tra nsmitted reference range : <=0.8. The reference r megan was not used to int erpret this result as normal/abnormal . [facility] CenterGrrqlngIHGGCVJGFC9969-81-03 20:32:00 Test Item Value Reference Range Interpretation Comments PTT (test code = PTT) 28.5 s 22.9-35.8 N [facility] CenterWhcorhqXMTNHJJZEV3448-85-73 20:32:00 Test Item Value Reference Range Interpretation Comments PT (test code = PT) 12.9 s 12.0-14.7 N [facility] CenterJdwccrnBZWUOZSCWL9824-51-02 20:32:00 Test Item Value Reference Range Interpretation Comments INR (test code = INR) 0.95 0.85-1.17 N [facility]CfpfrtjTEYAYNOYQC0369-00-13 20:32:00 Test Item Value Reference Range Interpretation Comments UA Urobilinogen (test code *NA*(11/26/2012 0.1-1.0 = UA Urobilinogen) 14:32:00) [facility]EpwgnqrJGQOYGFBIE5567-55-47 20:32:00 Test Item Value Reference Range Interpretation Comments UA Bacteria (test code Occasional /HPF = UA Bacteria) *NA*(11/26/2012 14:32:00) [facility] HospitalFopluoxFPRMGGBVCM6517-55-30 20:32:00 Test Item Value Reference Range Interpretation Comments UA RBC (test code = 1 See_Comment N [Automa ashanti message] The UA RBC) system which ge nerated this result transmit ashanti reference range : <=2. The reference range was not used to interpr et this result as carmen l/abnormal. [facility]anoEughiwaIUXVHJBYRS5857-90-41 20:32:00 Test Item Value Reference Range Interpretation Comments UA Sq Epi (test code = Many /LPF A UA Sq Epi) *ABN*(11/26/2012 14:32:00) [facility]anoEmckttnPJXOOMBRGN5910-01-48 20:32:00 Test Item Value Reference Range Interpretation Comments UA WBC (test code = 3 See_Comment N [Automa ashanti message] The UA WBC) system which ge nerated this result transmit ashanti reference range : <=5. The reference range was not used to interpr et this result as carmen l/abnormal. [facility]JzxxcppLMECPQCGXI3230-01-72 20:32:00 Test Item Value Reference Range Interpretation Comments UA Sq Epi (test code = Many /LPF A UA Sq Epi) *ABN*(11/26/2012 14:32:00) [facility]MtssuyzJFDAYTLHMD7144-09-33 20:32:00 Test Item Value Reference Range Interpretation Comments Micro? (test code = Performed *NA*(11/26/2012 Micro?) 14:32:00) [facility]AgcehjpBDOLMIIHWF8932-77-81 20:32:00 Test Item Value Reference Range Interpretation Comments UA Mucus (test code = Few /LPF UA Mucus) *NA*(11/26/2012 14:32:00) [facility] HospitalBtcslvkISIQIERNFW9623-45-96 20:32:00 Test Item Value Reference Range Interpretation Comments UA Bili (test code = Negative *NA*(11/26/2012 UA Bili) 14:32:00) [facility] HospitalKlzdeasYXBKFKAJBL5647-73-02 20:32:00 Test Item Value Reference Range Interpretation Comments UA Ketones (test code Negative mg/dL = UA Ketones) *NA*(11/26/2012 14:32:00) [facility] HospitalUfqhqfgHLUWYUKFXD0865-36-89 20:32:00 Test Item Value Reference Range Interpretation Comments UA Protein (test code Negative mg/dL N = UA Protein) (11/26/2012 14:32:00) [facility] HospitalJiaidcqCQMEQSNJOI6264-71-68 20:32:00 Test Item Value Reference Range Interpretation Comments UA Leuk Est (test code Trace *ABN*(11/26/2012 A = UA Leuk Est) 14:32:00) [facility] HospitalVvikjovUPDDTAOUPB7316-09-76 20:32:00 Test Item Value Reference Range Interpretation Comments UA Nitrite (test code Negative (11/26/2012 N = UA Nitrite) 14:32:00) [facility] HospitalFgbwxewYYQRCNMLAP5258-57-04 20:32:00 Test Item Value Reference Range Interpretation Comments UA Blood (test code = Negative (11/26/2012 N UA Blood) 14:32:00) [facility] HospitalOmkscxuWSKXLMUOGY1889-48-67 20:32:00 Test Item Value Reference Range Interpretation Comments Micro? (test code = Performed *NA*(11/26/2012 Micro?) 14:32:00) [facility] HospitalLkhpdcuCBPNZKEAIV3976-36-47 20:32:00 Test Item Value Reference Range Interpretation Comments UA Color (test code = Yellow *NA*(11/26/2012 UA Color) 14:32:00) [facility] HospitalUwfvhnbFZWEPXPETY4742-63-14 20:32:00 Test Item Value Reference Range Interpretation Comments UA pH (test code = UA pH) 6.0 5.0-8.0 N [facility] HospitalKwgxhmwHTVRZKPGAJ9877-62-34 20:32:00 Test Item Value Reference Range Interpretation Comments UA Spec Grav (test code = UA Spec Grav) 1.016 N [facility] HospitalRrzrwfiLOMAYABDUL7660-40-09 20:32:00 Test Item Value Reference Range Interpretation Comments UA Turbidity (test code Slight A = UA Turbidity) *ABN*(11/26/2012 14:32:00) [facility] HospitalBhmaywsQOYYHXWXHQ2180-62-89 20:32:00 Test Item Value Reference Range Interpretation Comments UA Glucose (test code Negative mg/dL = UA Glucose) *NA*(11/26/2012 14:32:00) [facility] HospitalDukslehKZFQTZVMLT4926-41-59 20:32:00 Test Item Value Reference Range Interpretation Comments UA Mucus (test code = Few /LPF UA Mucus) *NA*(11/26/2012 14:32:00) [facility] HospitalDzeskycTTXZPJXRCN0475-31-68 20:32:00 Test Item Value Reference Range Interpretation Comments UA Bili (test code = Negative *NA*(11/26/2012 UA Bili) 14:32:00) [facility] HospitalEhjuizrWKBCYDRWWF9154-45-89 20:32:00 Test Item Value Reference Range Interpretation Comments UA Ketones (test code Negative mg/dL = UA Ketones) *NA*(11/26/2012 14:32:00) [facility] HospitalOtvktusZTKEHTQHUX6593-50-33 20:32:00 Test Item Value Reference Range Interpretation Comments UA Protein (test code Negative mg/dL N = UA Protein) (11/26/2012 14:32:00) [facility] HospitalVslabzvMCEWVZOGFW4638-29-11 20:32:00 Test Item Value Reference Range Interpretation Comments UA Leuk Est (test code Trace *ABN*(11/26/2012 A = UA Leuk Est) 14:32:00) [facility] HospitalUgsnneiFKXYIETBLK4663-56-67 20:32:00 Test Item Value Reference Range Interpretation Comments UA Nitrite (test code Negative (11/26/2012 N = UA Nitrite) 14:32:00) [facility] HospitalKwrnhapDMZAGZXUTE7396-18-85 20:32:00 Test Item Value Reference Range Interpretation Comments UA Blood (test code = Negative (11/26/2012 N UA Blood) 14:32:00) [facility] HospitalXqyuytlFOOHADKTHS2332-65-78 20:32:00 Test Item Value Reference Range Interpretation Comments UA Color (test code = Yellow *NA*(11/26/2012 UA Color) 14:32:00) [facility] HospitalUfwjkeqOTFEMILISY6744-77-84 20:32:00 Test Item Value Reference Range Interpretation Comments UA pH (test code = UA pH) 6.0 5.0-8.0 N [facility] HospitalVfyayvkNLTKXNTNUE8761-35-05 20:32:00 Test Item Value Reference Range Interpretation Comments UA Spec Grav (test code = UA Spec Grav) 1.016 N [facility] HospitalFoplfgwERLSYDPQRL4357-75-85 20:32:00 Test Item Value Reference Range Interpretation Comments UA Turbidity (test code Slight A = UA Turbidity) *ABN*(11/26/2012 14:32:00) [facility] CenterRtxjxebESZXLCBGN3813-91-32 20:32:00 Test Item Value Reference Range Interpretation Comments A/G Ratio (test code = A/G Ratio) 0.9 0.7-1.6 N [facility] CenterRngyuvqBUSKHKVVH4888-39-70 20:32:00 Test Item Value Reference Range Interpretation Comments Globulin (test code = Globulin) 4.4 2.0-4.0 H [facility] CenterLfuyolwWOXXQUHHA6396-66-57 20:32:00 Test Item Value Reference Range Interpretation Comments AGAP (test code = AGAP) 13.0 10.0-20.0 N [facility] CenterSnyagbqBVWVEEPKE5747-64-88 20:32:00 Test Item Value Reference Range Interpretation Comments B/C Ratio (test code = B/C Ratio) 18 6-25 N [facility] CenterIvefkalTQIIUVEPM5231-44-28 20:32:00 Test Item Value Reference Range Interpretation Comments AST (test code = AST) 24 See_Comment N [Auto mated message] The system which ge nerated this result transmit ashanti reference range : <=37. The reference range was not used to interpr et this result as carmen l/abnormal. [facility] CenterTfffaixMPIHLHAFV8733-56-23 20:32:00 Test Item Value Reference Range Interpretation Comments Bili Total (test code = Bili Total) 0.5 0.2-1.3 N [facility] CenterPfejbabBNBTEKNUF2579-72-32 20:32:00 Test Item Value Reference Range Interpretation Comments Alk Phos (test code = Alk Phos) 98 39-136 N [facility] CenterJidezlgOJWMEEWRM8674-44-00 20:32:00 Test Item Value Reference Range Interpretation Comments ALT (test code = ALT) 37 See_Comment N [Auto mated message] The system which ge nerated this result transmit ashanti reference range : <=65. The reference range was not used to interpr et this result as carmen l/abnormal. [facility] HospitalGualwnbEMOOMBZPPT7487-74-91 20:32:00 Test Item Value Reference Range Interpretation Comments UA Glucose (test code Negative mg/dL = UA Glucose) *NA*(11/26/2012 14:32:00) [facility] CenterJiqjcdoDPLLSCOUF0776-49-89 20:32:00 Test Item Value Reference Range Interpretation Comments Total Protein (test code = Total 8.5 6.4-8.4 H Protein) [facility] CenterSicwploNUWDIPMUU8737-01-30 20:32:00 Test Item Value Reference Range Interpretation Comments eGFR (test code = eGFR) 128 [facility] CenterSxvkjjaYHJIXRQGS1908-76-32 20:32:00 Test Item Value Reference Range Interpretation Comments Albumin Lvl (test code = Albumin Lvl) 4.1 3.5-5.0 N [facility] CenterKtvihiiWUMSNMJUV9262-40-93 20:32:00 Test Item Value Reference Range Interpretation Comments Chloride Lvl (test code = Chloride Lvl) 100 95-109 N [facility] CenterMesfjcjAZQTMOFGC6939-95-60 20:32:00 Test Item Value Reference Range Interpretation Comments Potassium Lvl (test code = Potassium 4.0 3.5-5.1 N Lvl) [facility] CenterUfhfcvfPAGITBWAP5088-67-10 20:32:00 Test Item Value Reference Range Interpretation Comments CO2 (test code = CO2) 28 24-32 N [facility] CenterBiudndbYHBPLUNRG0011-58-06 20:32:00 Test Item Value Reference Range Interpretation Comments Sodium Lvl (test code = Sodium Lvl) 137 135-145 N [facility] CenterRmakgvkGQPDPXUOX4180-66-11 20:32:00 Test Item Value Reference Range Interpretation Comments Calcium Lvl (test code = Calcium Lvl) 9.1 8.5-10.5 N [facility] CenterJkqmtzqCHJPZWOOC6113-04-03 20:32:00 Test Item Value Reference Range Interpretation Comments Creatinine Lvl (test code = Creatinine 0.5 0.5-1.4 N Lvl) [facility] CenterBbszrkvQXAPSRLGR3022-70-55 20:32:00 Test Item Value Reference Range Interpretation Comments Glucose Lvl (test code = Glucose Lvl) 81 70-99 N [facility] CenterLahufmqMRDFVGWSZ0445-33-49 20:32:00 Test Item Value Reference Range Interpretation Comments BUN (test code = BUN) 9 7-22 N [facility] CenterXnjlfadKKBUFTDER7725-03-51 20:32:00 Test Item Value Reference Range Interpretation Comments Vitamin D 1,25 (OH)2 Total (test code = 52 18-72 Vitamin D 1,25 (OH)2 Total) [facility] CenterKvmkvwuVLGWEBDVX4147-79-85 20:32:00 Test Item Value Reference Range Interpretation Comments Vitamin D2 1,25 (OH)2 (test code = no gt Vitamin D2 1,25 (OH)2) [facility] CenterPsxpisoAKHNZFJMH8644-55-62 20:32:00 Test Item Value Reference Range Interpretation Comments Vitamin D3 1,25 (OH)2 (test code = 52 Vitamin D3 1,25 (OH)2) [facility]YqxwcuiVCQAPXTMKG4449-53-19 20:32:00 Test Item Value Reference Range Interpretation Comments MPV (test code = MPV) 8.7 7.4-10.4 N [facility] CenterOwuermtRWXHPHTINC1408-00-11 20:32:00 Test Item Value Reference Range Interpretation Comments Hgb (test code = Hgb) 12.0 12.0-16.0 N [facility] CenterLaawrsmVBQYLAUMYA6560-44-61 20:32:00 Test Item Value Reference Range Interpretation Comments RBC (test code = RBC) 4.51 4.20-5.40 N [facility] CenterZxpuislCEUZGWGVRX9184-09-32 20:32:00 Test Item Value Reference Range Interpretation Comments WBC (test code = WBC) 15.6 3.7-10.4 H [facility] CenterHvhakhpHLGBOJEFFN0556-49-08 20:32:00 Test Item Value Reference Range Interpretation Comments Hct (test code = Hct) 37.0 36.0-48.0 N [facility] CenterSophgarUJVWVRQRZI4834-05-22 20:32:00 Test Item Value Reference Range Interpretation Comments MCV (test code = MCV) 82.0 81.0-99.0 N [facility] CenterCpgttirNTIVJUCKTJ8361-29-92 20:32:00 Test Item Value Reference Range Interpretation Comments RDW (test code = RDW) 15.9 11.5-14.5 H [facility] CenterJgxsbhuOWBQJFJLBP9256-96-24 20:32:00 Test Item Value Reference Range Interpretation Comments MCHC (test code = MCHC) 32.3 32.0-36.0 N [facility] CenterXmtijwdHDFXAHPOHP5939-82-83 20:32:00 Test Item Value Reference Range Interpretation Comments MCH (test code = MCH) 26.5 pg 27.0-31.0 L [facility] CenterUdmbitzFJKQTNZLBC9555-73-70 20:32:00 Test Item Value Reference Range Interpretation Comments Platelet (test code = Platelet) 371 133-450 N [facility] CenterQeiuneaBNUTYMBIMI8582-58-29 20:32:00 Test Item Value Reference Range Interpretation Comments Polychrom (test code = Slight (11/26/2012 N Polychrom) 14:32:00) [facility] CenterRzavpjbKPMCPUSEIZ8770-15-67 20:32:00 Test Item Value Reference Range Interpretation Comments Large Plt (test code = Slight *ABN*(11/26/2012 A Large Plt) 14:32:00) [facility] CenterCaogohhGNINKESHQR8393-63-40 20:32:00 Test Item Value Reference Range Interpretation Comments Segs (test code = Segs) 73.0 45.0-75.0 N [facility] CenterZlnglkbKSFLFRGXJK2575-00-12 20:32:00 Test Item Value Reference Range Interpretation Comments Eosinophils # (test code 0.2 See_Comment N [A utomated message] The = Eosinophils #) system whic h generated this result tra nsmitted reference range : <=0.5. The reference r megan was not used to int erpret this result as normal/abnormal . [facility] CenterInyfxeoKPTCBZBIDC3242-17-47 20:32:00 Test Item Value Reference Range Interpretation Comments Basophils # (test code 0.1 See_Comment N [Aut omated message] The = Basophils #) system which generated this result tra nsmitted reference range : <=0.2. The reference r megan was not used to int erpret this result as normal/abnormal . [facility] CenterEwolwmbLIWDZUFLKB2911-98-64 20:32:00 Test Item Value Reference Range Interpretation Comments Lymphocytes (test code = Lymphocytes) 21.3 20.0-40.0 N [facility] CenterQzuqnvrGTELLRWMIL9455-91-36 20:32:00 Test Item Value Reference Range Interpretation Comments Segs-Bands # (test code = Segs-Bands #) 11.4 1.5-8.1 H [facility] CenterJoakmhbZHZKFMFXDR2137-57-44 20:32:00 Test Item Value Reference Range Interpretation Comments Eosinophils (test code = 1.1 See_Comment N [A utomated message] The Eosinophils) system which ge nerated this result tra nsmitted reference range : <=4.0. The reference r megan was not used to int erpret this result as normal/abnormal . [facility] CenterGdbtgmtAFHHRUSOYT4801-23-58 20:32:00 Test Item Value Reference Range Interpretation Comments Basophils (test code = 0.5 See_Comment N [Aut omated message] The Basophils) system which ge nerated this result tra nsmitted reference range : <=1.0. The reference r megan was not used to int erpret this result as normal/abnormal . [facility] CenterVfifmnwXNCYZCIHKY2317-68-62 20:32:00 Test Item Value Reference Range Interpretation Comments Monocytes (test code = Monocytes) 4.1 2.0-12.0 N [facility] CenterEvtygpaBKGFIYLUJH9437-05-96 20:32:00 Test Item Value Reference Range Interpretation Comments Lymphocytes # (test code = Lymphocytes 3.3 1.0-5.5 N #) [facility] CenterOvnxtijKMXSRQIDGO5129-60-66 20:32:00 Test Item Value Reference Range Interpretation Comments Monocytes # (test code 0.6 See_Comment N [Aut omated message] The = Monocytes #) system which generated this result tra nsmitted reference range : <=0.8. The reference r megan was not used to int erpret this result as normal/abnormal . [facility] CenterVbnfcvrWCRNLCUWVC5674-63-04 20:32:00 Test Item Value Reference Range Interpretation Comments PTT (test code = PTT) 28.5 s 22.9-35.8 N [facility] CenterVserveiEEDTRMENOF3820-27-12 20:32:00 Test Item Value Reference Range Interpretation Comments PT (test code = PT) 12.9 s 12.0-14.7 N [facility] HospitalRecoblhQWVYPIRAWF8586-34-27 20:32:00 Test Item Value Reference Range Interpretation Comments INR (test code = INR) 0.95 0.85-1.17 N [facility] HospitalEjqpmwhDXWAWWFBMF2300-99-72 20:32:00 Test Item Value Reference Range Interpretation Comments UA Urobilinogen (test code *NA*(11/26/2012 0.1-1.0 = UA Urobilinogen) 14:32:00) [facility]LlivsxuDYOGEHAKWL6014-34-22 20:32:00 Test Item Value Reference Range Interpretation Comments UA Bacteria (test code Occasional /HPF = UA Bacteria) *NA*(11/26/2012 14:32:00) [facility]anoCooinxvYBNJARQJWU9740-65-77 20:32:00 Test Item Value Reference Range Interpretation Comments UA RBC (test code = 1 See_Comment N [Automa ashanti message] The UA RBC) system which ge nerated this result transmit ashanti reference range : <=2. The reference range was not used to interpr et this result as carmen l/abnormal. [facility]anoPdbcoicERESZRIJCM1421-32-99 20:32:00 Test Item Value Reference Range Interpretation Comments UA WBC (test code = 3 See_Comment N [Automa ashanti message] The UA WBC) system which ge nerated this result transmit ashanti reference range : <=5. The reference range was not used to interpr et this result as carmen l/abnormal. [facility]anoDbqvlytKTDOFWONOY9619-18-11 20:32:00 Test Item Value Reference Range Interpretation Comments UA Sq Epi (test code = Many /LPF A UA Sq Epi) *ABN*(11/26/2012 14:32:00) [facility]anoVjusuzmCGNSNMCDMS7534-33-12 20:32:00 Test Item Value Reference Range Interpretation Comments Micro? (test code = Performed *NA*(11/26/2012 Micro?) 14:32:00) [facility]anoKobrohtHDAIMWAIYV2904-17-87 20:32:00 Test Item Value Reference Range Interpretation Comments UA Mucus (test code = Few /LPF UA Mucus) *NA*(11/26/2012 14:32:00) [facility]anoPyaeplmHLCTADIOYW0865-86-94 20:32:00 Test Item Value Reference Range Interpretation Comments UA Bili (test code = Negative *NA*(11/26/2012 UA Bili) 14:32:00) [facility] HospitalHrwbzpeWXEQVLUNOT5697-03-82 20:32:00 Test Item Value Reference Range Interpretation Comments UA Ketones (test code Negative mg/dL = UA Ketones) *NA*(11/26/2012 14:32:00) [facility] HospitalJillgcpKUICWJEXYE0787-21-07 20:32:00 Test Item Value Reference Range Interpretation Comments UA Protein (test code Negative mg/dL N = UA Protein) (11/26/2012 14:32:00) [facility] HospitalTsnolijISXUWKUWXH7491-05-08 20:32:00 Test Item Value Reference Range Interpretation Comments UA Leuk Est (test code Trace *ABN*(11/26/2012 A = UA Leuk Est) 14:32:00) [facility] HospitalLnmueccOYMVUECKZY3558-12-09 20:32:00 Test Item Value Reference Range Interpretation Comments UA Nitrite (test code Negative (11/26/2012 N = UA Nitrite) 14:32:00) [facility] HospitalBvynlpzZVUMENWDZQ5899-80-84 20:32:00 Test Item Value Reference Range Interpretation Comments UA Blood (test code = Negative (11/26/2012 N UA Blood) 14:32:00) [facility] HospitalQpkwdadQOANIRUXMA3995-85-28 20:32:00 Test Item Value Reference Range Interpretation Comments UA Color (test code = Yellow *NA*(11/26/2012 UA Color) 14:32:00) [facility] HospitalErtftnqKLRTZAPORZ1905-62-40 20:32:00 Test Item Value Reference Range Interpretation Comments UA pH (test code = UA pH) 6.0 5.0-8.0 N [facility] HospitalLjrsuceUNULDBBSEO1523-77-74 20:32:00 Test Item Value Reference Range Interpretation Comments UA Spec Grav (test code = UA Spec Grav) 1.016 N [facility] HospitalYwvnhtdTCSHPQYHHF6345-16-41 20:32:00 Test Item Value Reference Range Interpretation Comments UA Turbidity (test code Slight A = UA Turbidity) *ABN*(11/26/2012 14:32:00) [facility] HospitalFmikxwyJRNXSBPIDQ4983-11-17 20:32:00 Test Item Value Reference Range Interpretation Comments UA Glucose (test code Negative mg/dL = UA Glucose) *NA*(11/26/2012 14:32:00) [facility] CenterUejavmoNFTFHUHJB7277-31-71 20:32:00 Test Item Value Reference Range Interpretation Comments A/G Ratio (test code = A/G Ratio) 0.9 0.7-1.6 N [facility] CenterAzulyclTAGSYACYQ1858-95-78 20:32:00 Test Item Value Reference Range Interpretation Comments Globulin (test code = Globulin) 4.4 2.0-4.0 H [facility] CenterJsasnvtMVBUXUJPV2560-81-15 20:32:00 Test Item Value Reference Range Interpretation Comments AGAP (test code = AGAP) 13.0 10.0-20.0 N [facility] CenterWoyldmpFKHIVQOAS9118-75-93 20:32:00 Test Item Value Reference Range Interpretation Comments B/C Ratio (test code = B/C Ratio) 18 6-25 N [facility] CenterCxhcaocCAXYCQTPK5916-21-81 20:32:00 Test Item Value Reference Range Interpretation Comments AST (test code = AST) 24 See_Comment N [Auto mated message] The system which ge nerated this result transmit ashanti reference range : <=37. The reference range was not used to interpr et this result as carmen l/abnormal. [facility] CenterJwntjuaWFVPOSJKT1323-67-14 20:32:00 Test Item Value Reference Range Interpretation Comments Bili Total (test code = Bili Total) 0.5 0.2-1.3 N [facility] CenterJxftbbvOTHKKUTPP5842-55-95 20:32:00 Test Item Value Reference Range Interpretation Comments Alk Phos (test code = Alk Phos) 98 39-136 N [facility] CenterNxbebeoOVHOLVMNV5496-29-41 20:32:00 Test Item Value Reference Range Interpretation Comments ALT (test code = ALT) 37 See_Comment N [Auto mated message] The system which ge nerated this result transmit ashanti reference range : <=65. The reference range was not used to interpr et this result as carmen l/abnormal. [facility] CenterPnpysgwLLUWMGPUH5396-31-52 20:32:00 Test Item Value Reference Range Interpretation Comments Total Protein (test code = Total 8.5 6.4-8.4 H Protein) [facility] CenterHfnbnlhCKMPUTWDG4224-09-74 20:32:00 Test Item Value Reference Range Interpretation Comments eGFR (test code = eGFR) [address] [place] 269063-02-21 20:32:00 Test Item Value Reference Range Interpretation Comments Albumin Lvl (test code = Albumin Lvl) 4.1 3.5-5.0 N [facility] CenterByrxmryZLQGBWLKH8281-46-31 20:32:00 Test Item Value Reference Range Interpretation Comments Chloride Lvl (test code = Chloride Lvl) 100 95-109 N [facility] CenterEetvjwrKVPBJPHCY8347-70-16 20:32:00 Test Item Value Reference Range Interpretation Comments Potassium Lvl (test code = Potassium 4.0 3.5-5.1 N Lvl) [facility] CenterImmvzwpQLOOOQTAX9546-77-89 20:32:00 Test Item Value Reference Range Interpretation Comments CO2 (test code = CO2) 28 24-32 N [facility] CenterYcrhnzvJLCGMTMFW1216-12-69 20:32:00 Test Item Value Reference Range Interpretation Comments Sodium Lvl (test code = Sodium Lvl) 137 135-145 N [facility] CenterZizoewyDDURMGXTZ2625-27-20 20:32:00 Test Item Value Reference Range Interpretation Comments Calcium Lvl (test code = Calcium Lvl) 9.1 8.5-10.5 N [facility] CenterDxhvyicNBGKAWQBI6236-17-82 20:32:00 Test Item Value Reference Range Interpretation Comments Creatinine Lvl (test code = Creatinine 0.5 0.5-1.4 N Lvl) [facility] CenterVetlwmjPTKULLZTO3833-48-20 20:32:00 Test Item Value Reference Range Interpretation Comments Glucose Lvl (test code = Glucose Lvl) 81 70-99 N [facility] CenterWfqrbrqRZPRAFOEM0907-69-75 20:32:00 Test Item Value Reference Range Interpretation Comments BUN (test code = BUN) 9 7-22 N [facility] CenterNzbiyzoAILUGUBEF0229-61-19 20:32:00 Test Item Value Reference Range Interpretation Comments Vitamin D 1,25 (OH)2 Total (test code = 52 18-72 Vitamin D 1,25 (OH)2 Total) [facility] CenterIihcirnEMFVMWOFH4649-35-15 20:32:00 Test Item Value Reference Range Interpretation Comments Vitamin D2 1,25 (OH)2 (test code = no gt Vitamin D2 1,25 (OH)2) [facility] CenterKvydvyiQYRQNJXGR6734-57-65 20:32:00 Test Item Value Reference Range Interpretation Comments Vitamin D3 1,25 (OH)2 (test code = 52 Vitamin D3 1,25 (OH)2) [facility] CenterEdtfunnFKBYHCNZVC6549-16-27 20:32:00 Test Item Value Reference Range Interpretation Comments MPV (test code = MPV) 8.7 7.4-10.4 N [facility] CenterAaahbygXQYUPUQPTD4557-78-35 20:32:00 Test Item Value Reference Range Interpretation Comments Hgb (test code = Hgb) 12.0 12.0-16.0 N [facility] CenterByyfuczIJKXSKMRFM9308-23-68 20:32:00 Test Item Value Reference Range Interpretation Comments RBC (test code = RBC) 4.51 4.20-5.40 N [facility] CenterBwitikcMNQSYSYIYF8186-89-46 20:32:00 Test Item Value Reference Range Interpretation Comments WBC (test code = WBC) 15.6 3.7-10.4 H [facility] CenterDzvvoycIAOUXDOAXL1973-71-18 20:32:00 Test Item Value Reference Range Interpretation Comments Hct (test code = Hct) 37.0 36.0-48.0 N [facility] CenterGthhapzCVBUOOHICX0282-91-95 20:32:00 Test Item Value Reference Range Interpretation Comments MCV (test code = MCV) 82.0 81.0-99.0 N [facility] CenterBwmxoykTKSPHESWWT6497-70-21 20:32:00 Test Item Value Reference Range Interpretation Comments RDW (test code = RDW) 15.9 11.5-14.5 H [facility] CenterCzsypyiDJZRQQVIUN1539-88-69 20:32:00 Test Item Value Reference Range Interpretation Comments MCHC (test code = MCHC) 32.3 32.0-36.0 N [facility] CenterKnkpdzjCUWEEPYNWP2022-27-21 20:32:00 Test Item Value Reference Range Interpretation Comments MCH (test code = MCH) 26.5 pg 27.0-31.0 L [facility] CenterDznpwzcDBVABIPTTR6079-91-45 20:32:00 Test Item Value Reference Range Interpretation Comments Platelet (test code = Platelet) 371 133-450 N [facility] CenterUpjxomlSXITYOJDNW6173-25-29 20:32:00 Test Item Value Reference Range Interpretation Comments Polychrom (test code = Slight (11/26/2012 N Polychrom) 14:32:00) [facility] CenterChqbsxzPEXWTQHHLL4081-89-98 20:32:00 Test Item Value Reference Range Interpretation Comments Large Plt (test code = Slight *ABN*(11/26/2012 A Large Plt) 14:32:00) [facility] CenterDrkolbeBCWJQEUKDH4088-92-47 20:32:00 Test Item Value Reference Range Interpretation Comments Segs (test code = Segs) 73.0 45.0-75.0 N [facility] CenterDgnrcerXGVOQIMXZO1735-62-39 20:32:00 Test Item Value Reference Range Interpretation Comments Eosinophils # (test code 0.2 See_Comment N [A utomated message] The = Eosinophils #) system whic h generated this result tra nsmitted reference range : <=0.5. The reference r megan was not used to int erpret this result as normal/abnormal . [facility] CenterTlhvwhePOULIUHAAK7296-29-39 20:32:00 Test Item Value Reference Range Interpretation Comments Basophils # (test code 0.1 See_Comment N [Aut omated message] The = Basophils #) system which generated this result tra nsmitted reference range : <=0.2. The reference r megan was not used to int erpret this result as normal/abnormal . [facility] CenterYjmcgalMQVGNNWYQJ7551-51-86 20:32:00 Test Item Value Reference Range Interpretation Comments Lymphocytes (test code = Lymphocytes) 21.3 20.0-40.0 N [facility] CenterYvdduyyOIPCFRAGNK1697-47-54 20:32:00 Test Item Value Reference Range Interpretation Comments Segs-Bands # (test code = Segs-Bands #) 11.4 1.5-8.1 H [facility] CenterVsoihguZBQFEIXCXT7009-27-53 20:32:00 Test Item Value Reference Range Interpretation Comments Eosinophils (test code = 1.1 See_Comment N [A utomated message] The Eosinophils) system which ge nerated this result tra nsmitted reference range : <=4.0. The reference r megan was not used to int erpret this result as normal/abnormal . [facility] CenterZhuxvbkBEKVQPKCGQ5003-77-79 20:32:00 Test Item Value Reference Range Interpretation Comments Basophils (test code = 0.5 See_Comment N [Aut omated message] The Basophils) system which ge nerated this result tra nsmitted reference range : <=1.0. The reference r megan was not used to int erpret this result as normal/abnormal . [facility] CenterEnpyzwcXQZSVCUSYG7485-67-12 20:32:00 Test Item Value Reference Range Interpretation Comments Monocytes (test code = Monocytes) 4.1 2.0-12.0 N [facility] CenterZltwpweTMGCEQCAHX1340-30-05 20:32:00 Test Item Value Reference Range Interpretation Comments Lymphocytes # (test code = Lymphocytes 3.3 1.0-5.5 N #) [facility] CenterCgvswzcVAEWOCZNNA5750-62-59 20:32:00 Test Item Value Reference Range Interpretation Comments Monocytes # (test code 0.6 See_Comment N [Aut omated message] The = Monocytes #) system which generated this result tra nsmitted reference range : <=0.8. The reference r megan was not used to int erpret this result as normal/abnormal . [facility] CenterChsmeadPQDGXKUCFP5651-28-04 20:32:00 Test Item Value Reference Range Interpretation Comments PTT (test code = PTT) 28.5 s 22.9-35.8 N [facility] CenterBjrinfeYIDFCDTXKG0919-76-10 20:32:00 Test Item Value Reference Range Interpretation Comments PT (test code = PT) 12.9 s 12.0-14.7 N [facility] CenterFucpmqkXJUORITAIR3174-72-30 20:32:00 Test Item Value Reference Range Interpretation Comments INR (test code = INR) 0.95 0.85-1.17 N [facility]ZewilnlMANCHMOIDZ8263-02-56 20:32:00 Test Item Value Reference Range Interpretation Comments UA Urobilinogen (test code *NA*(11/26/2012 0.1-1.0 = UA Urobilinogen) 14:32:00) [facility]DvqzesiXBLCVHDDSK8814-27-95 20:32:00 Test Item Value Reference Range Interpretation Comments UA Bacteria (test code Occasional /HPF = UA Bacteria) *NA*(11/26/2012 14:32:00) [facility] HospitalBbqvhgoOBYQXMDMOY5688-98-74 20:32:00 Test Item Value Reference Range Interpretation Comments UA RBC (test code = 1 See_Comment N [Automa ashanti message] The UA RBC) system which ge nerated this result transmit ashanti reference range : <=2. The reference range was not used to interpr et this result as carmen l/abnormal. [facility] HospitalLmihiaxIAGRQEALRK6195-69-39 20:32:00 Test Item Value Reference Range Interpretation Comments UA WBC (test code = 3 See_Comment N [Automa ashanti message] The UA WBC) system which ge nerated this result transmit ashanti reference range : <=5. The reference range was not used to interpr et this result as carmen l/abnormal. [facility] HospitalIfceheuYSSHSCVZDL0155-86-94 20:32:00 Test Item Value Reference Range Interpretation Comments UA Sq Epi (test code = Many /LPF A UA Sq Epi) *ABN*(11/26/2012 14:32:00) [facility] HospitalFgjavsdAZOLKLBZGW1596-77-05 20:32:00 Test Item Value Reference Range Interpretation Comments Micro? (test code = Performed *NA*(11/26/2012 Micro?) 14:32:00) [facility] HospitalVlowchdDBBCMBVYZJ2396-91-73 20:32:00 Test Item Value Reference Range Interpretation Comments UA Mucus (test code = Few /LPF UA Mucus) *NA*(11/26/2012 14:32:00) [facility] HospitalLgkeztoGJBXOMUDNQ8897-41-75 20:32:00 Test Item Value Reference Range Interpretation Comments UA Bili (test code = Negative *NA*(11/26/2012 UA Bili) 14:32:00) [facility]anoEykjokzRTTNBUDMEW2898-22-08 20:32:00 Test Item Value Reference Range Interpretation Comments UA Ketones (test code Negative mg/dL = UA Ketones) *NA*(11/26/2012 14:32:00) [facility] HospitalVbvonnqBXVXCQJMWA1099-06-12 20:32:00 Test Item Value Reference Range Interpretation Comments UA Protein (test code Negative mg/dL N = UA Protein) (11/26/2012 14:32:00) [facility]anoKrxcezqDWSYJCCVZC6117-26-76 20:32:00 Test Item Value Reference Range Interpretation Comments UA Leuk Est (test code Trace *ABN*(11/26/2012 A = UA Leuk Est) 14:32:00) [facility]anoSyyjxvkOJPDVCMTOI2530-20-53 20:32:00 Test Item Value Reference Range Interpretation Comments UA Nitrite (test code Negative (11/26/2012 N = UA Nitrite) 14:32:00) [facility] HospitalEtmiokhSCQPVBRDVF1772-51-43 20:32:00 Test Item Value Reference Range Interpretation Comments UA Blood (test code = Negative (11/26/2012 N UA Blood) 14:32:00) [facility] HospitalUwzrbibIWYOPCSWGA7644-99-76 20:32:00 Test Item Value Reference Range Interpretation Comments UA Color (test code = Yellow *NA*(11/26/2012 UA Color) 14:32:00) [facility] HospitalQtphvmwYMZVRSNBPV8256-86-18 20:32:00 Test Item Value Reference Range Interpretation Comments UA pH (test code = UA pH) 6.0 5.0-8.0 N [facility] HospitalQzexfmrVSGASSGTGD3003-55-02 20:32:00 Test Item Value Reference Range Interpretation Comments UA Spec Grav (test code = UA Spec Grav) 1.016 N [facility] HospitalQqhtehmHAVZNKDXZQ2959-41-30 20:32:00 Test Item Value Reference Range Interpretation Comments UA Turbidity (test code Slight A = UA Turbidity) *ABN*(11/26/2012 14:32:00) [facility] HospitalOmgvoidPVOQDQZAKY1186-46-15 20:32:00 Test Item Value Reference Range Interpretation Comments UA Glucose (test code Negative mg/dL = UA Glucose) *NA*(11/26/2012 14:32:00) [facility] CenterWuzjcolYBKGHGLCG3204-47-63 20:32:00 Test Item Value Reference Range Interpretation Comments A/G Ratio (test code = A/G Ratio) 0.9 0.7-1.6 N [facility] CenterWpybeohXPDZYHQYI6012-08-68 20:32:00 Test Item Value Reference Range Interpretation Comments Globulin (test code = Globulin) 4.4 2.0-4.0 H [facility] CenterXdvuwnrCQYZDDPWM5050-39-01 20:32:00 Test Item Value Reference Range Interpretation Comments AGAP (test code = AGAP) 13.0 10.0-20.0 N [facility] CenterXjcmfvcGPORDHNNL4125-22-17 20:32:00 Test Item Value Reference Range Interpretation Comments B/C Ratio (test code = B/C Ratio) 18 6-25 N [facility] CenterSlgklcpEPAJGJGVW6561-96-18 20:32:00 Test Item Value Reference Range Interpretation Comments AST (test code = AST) 24 See_Comment N [Auto mated message] The system which ge nerated this result transmit ashanti reference range : <=37. The reference range was not used to interpr et this result as carmen l/abnormal. [facility] CenterXzlkbioSAMLKLYYS1751-37-74 20:32:00 Test Item Value Reference Range Interpretation Comments Bili Total (test code = Bili Total) 0.5 0.2-1.3 N [facility] CenterSsaiqjzKHAMOWNSJ8780-16-85 20:32:00 Test Item Value Reference Range Interpretation Comments Alk Phos (test code = Alk Phos) 98 39-136 N [facility] CenterDerthpaOHYKAAHYR0491-17-27 20:32:00 Test Item Value Reference Range Interpretation Comments ALT (test code = ALT) 37 See_Comment N [Auto mated message] The system which ge nerated this result transmit ashanti reference range : <=65. The reference range was not used to interpr et this result as carmen l/abnormal. [facility] CenterYepezimWPJIXJRFP3057-13-01 20:32:00 Test Item Value Reference Range Interpretation Comments Total Protein (test code = Total 8.5 6.4-8.4 H Protein) [facility] CenterJksfnloCXDTIEEWS2830-73-95 20:32:00 Test Item Value Reference Range Interpretation Comments eGFR (test code = eGFR) 128 [facility] CenterGuzxgvyCVGFJVICQ0640-54-01 20:32:00 Test Item Value Reference Range Interpretation Comments Albumin Lvl (test code = Albumin Lvl) 4.1 3.5-5.0 N [facility] CenterWgxlhzwFAAIGPXLQ2876-84-66 20:32:00 Test Item Value Reference Range Interpretation Comments Chloride Lvl (test code = Chloride Lvl) 100 95-109 N [facility] CenterHvtpszvJGPQPUKNG8498-19-95 20:32:00 Test Item Value Reference Range Interpretation Comments Potassium Lvl (test code = Potassium 4.0 3.5-5.1 N Lvl) [facility] CenterIqhurobYFFAKIWVF1100-41-64 20:32:00 Test Item Value Reference Range Interpretation Comments CO2 (test code = CO2) 28 24-32 N [facility] CenterUsebugbHDEOETJAI8725-96-71 20:32:00 Test Item Value Reference Range Interpretation Comments Sodium Lvl (test code = Sodium Lvl) 137 135-145 N [facility] CenterKixbadeTZNPJFICS0807-22-90 20:32:00 Test Item Value Reference Range Interpretation Comments Calcium Lvl (test code = Calcium Lvl) 9.1 8.5-10.5 N [facility] CenterLfjkutxXWPOAVKTN8254-35-99 20:32:00 Test Item Value Reference Range Interpretation Comments Creatinine Lvl (test code = Creatinine 0.5 0.5-1.4 N Lvl) [facility] CenterOwzfdwwSTAMZOTQR3086-81-44 20:32:00 Test Item Value Reference Range Interpretation Comments Glucose Lvl (test code = Glucose Lvl) 81 70-99 N [facility] CenterKruscbsLYEXKOYSZ6146-25-57 20:32:00 Test Item Value Reference Range Interpretation Comments BUN (test code = BUN) 9 7-22 N [facility] CenterEwnpfetRJXSLHWCB7081-80-10 20:32:00 Test Item Value Reference Range Interpretation Comments Vitamin D 1,25 (OH)2 Total (test code = 52 18-72 Vitamin D 1,25 (OH)2 Total) [facility] CenterXnkduebYLGEJLKRG9702-55-21 20:32:00 Test Item Value Reference Range Interpretation Comments Vitamin D2 1,25 (OH)2 (test code = no gt Vitamin D2 1,25 (OH)2) [facility] CenterRmoiefzNMOGVFVJQ1590-26-02 20:32:00 Test Item Value Reference Range Interpretation Comments Vitamin D3 1,25 (OH)2 (test code = 52 Vitamin D3 1,25 (OH)2) [facility] CenterYvnyfouPVSMNGYQDI3000-27-36 20:32:00 Test Item Value Reference Range Interpretation Comments MPV (test code = MPV) 8.7 7.4-10.4 N [facility] CenterPonenyqYPDUECAUDC6804-26-85 20:32:00 Test Item Value Reference Range Interpretation Comments Hgb (test code = Hgb) 12.0 12.0-16.0 N [facility] CenterCrcdcpjPXNZVVKNWJ0666-26-25 20:32:00 Test Item Value Reference Range Interpretation Comments RBC (test code = RBC) 4.51 4.20-5.40 N [facility] CenterKryapqhCPODURLRFC8900-73-57 20:32:00 Test Item Value Reference Range Interpretation Comments WBC (test code = WBC) 15.6 3.7-10.4 H [facility] CenterShydzyaXUBKSGCXNE7926-56-78 20:32:00 Test Item Value Reference Range Interpretation Comments Hct (test code = Hct) 37.0 36.0-48.0 N [facility] CenterLzsvmxrVYEMTVIMKO9035-80-46 20:32:00 Test Item Value Reference Range Interpretation Comments MCV (test code = MCV) 82.0 81.0-99.0 N [facility] CenterJpuusbqOITTVVPRYK9595-62-23 20:32:00 Test Item Value Reference Range Interpretation Comments RDW (test code = RDW) 15.9 11.5-14.5 H [facility] CenterPsoflneHHTIPTUUUI9338-50-26 20:32:00 Test Item Value Reference Range Interpretation Comments MCHC (test code = MCHC) 32.3 32.0-36.0 N [facility] CenterUoxnezcBHICCEUBVV6821-79-18 20:32:00 Test Item Value Reference Range Interpretation Comments MCH (test code = MCH) 26.5 pg 27.0-31.0 L [facility] CenterAayoshcBUZKJMNGSH7235-14-22 20:32:00 Test Item Value Reference Range Interpretation Comments Platelet (test code = Platelet) 371 133-450 N [facility] CenterBmyjxicWCHBECXUXJ3083-46-13 20:32:00 Test Item Value Reference Range Interpretation Comments Polychrom (test code = Slight (11/26/2012 N Polychrom) 14:32:00) [facility] CenterJdupxdcMNQPGEGENU0772-22-46 20:32:00 Test Item Value Reference Range Interpretation Comments Large Plt (test code = Slight *ABN*(11/26/2012 A Large Plt) 14:32:00) [facility] CenterCrxhntkZIHFTVQTOX7289-42-55 20:32:00 Test Item Value Reference Range Interpretation Comments Segs (test code = Segs) 73.0 45.0-75.0 N [facility] CenterAopwyinXPFXGINZTH4301-51-17 20:32:00 Test Item Value Reference Range Interpretation Comments Eosinophils # (test code 0.2 See_Comment N [A utomated message] The = Eosinophils #) system whic h generated this result tra nsmitted reference range : <=0.5. The reference r megan was not used to int erpret this result as normal/abnormal . [facility] CenterSdaokzeYINAAGUWPV7647-59-70 20:32:00 Test Item Value Reference Range Interpretation Comments Basophils # (test code 0.1 See_Comment N [Aut omated message] The = Basophils #) system which generated this result tra nsmitted reference range : <=0.2. The reference r megan was not used to int erpret this result as normal/abnormal . [facility] CenterLbftdqhCGQLEOULGT7741-35-41 20:32:00 Test Item Value Reference Range Interpretation Comments Lymphocytes (test code = Lymphocytes) 21.3 20.0-40.0 N [facility] CenterPemmppcSMNEFCIQUV8445-52-49 20:32:00 Test Item Value Reference Range Interpretation Comments Segs-Bands # (test code = Segs-Bands #) 11.4 1.5-8.1 H [facility] CenterGlbumelDJKDLKKYCR1743-07-16 20:32:00 Test Item Value Reference Range Interpretation Comments Eosinophils (test code = 1.1 See_Comment N [A utomated message] The Eosinophils) system which ge nerated this result tra nsmitted reference range : <=4.0. The reference r megan was not used to int erpret this result as normal/abnormal . [facility] CenterCzsgijiLHWZKCWHTR1284-16-08 20:32:00 Test Item Value Reference Range Interpretation Comments Basophils (test code = 0.5 See_Comment N [Aut omated message] The Basophils) system which ge nerated this result tra nsmitted reference range : <=1.0. The reference r megan was not used to int erpret this result as normal/abnormal . [facility] CenterPbjbqcvAFWMPNWNVB0882-43-50 20:32:00 Test Item Value Reference Range Interpretation Comments Monocytes (test code = Monocytes) 4.1 2.0-12.0 N [facility] CenterFnjohafQYDYSUJUYS5324-62-34 20:32:00 Test Item Value Reference Range Interpretation Comments Lymphocytes # (test code = Lymphocytes 3.3 1.0-5.5 N #) [facility] CenterGwpsflnTUDFZRSAZB3608-90-99 20:32:00 Test Item Value Reference Range Interpretation Comments Monocytes # (test code 0.6 See_Comment N [Aut omated message] The = Monocytes #) system which generated this result tra nsmitted reference range : <=0.8. The reference r megan was not used to int erpret this result as normal/abnormal . [facility] CenterEjkfqsvQKBLCZANYS4206-79-77 20:32:00 Test Item Value Reference Range Interpretation Comments PTT (test code = PTT) 28.5 s 22.9-35.8 N [facility] CenterBrxynjvBFUKNMHMGI7641-72-73 20:32:00 Test Item Value Reference Range Interpretation Comments PT (test code = PT) 12.9 s 12.0-14.7 N [facility] CenterNqyqrdmMHJDNNQZNB6621-25-97 20:32:00 Test Item Value Reference Range Interpretation Comments INR (test code = INR) 0.95 0.85-1.17 N [facility]JqfahkfVJUELUQRUT5821-99-28 20:32:00 Test Item Value Reference Range Interpretation Comments UA Urobilinogen (test code *NA*(11/26/2012 0.1-1.0 = UA Urobilinogen) 14:32:00) [facility]anoFrupajcSPGGKMLCAA8516-37-95 20:32:00 Test Item Value Reference Range Interpretation Comments UA Bacteria (test code Occasional /HPF = UA Bacteria) *NA*(11/26/2012 14:32:00) [facility]anoWbpcxutTAATYJXAMK6625-60-70 20:32:00 Test Item Value Reference Range Interpretation Comments UA RBC (test code = 1 See_Comment N [Automa ashanti message] The UA RBC) system which ge nerated this result transmit ashanti reference range : <=2. The reference range was not used to interpr et this result as carmen l/abnormal. [facility]anoKqoeicjRCZOVQINUD0686-73-79 20:32:00 Test Item Value Reference Range Interpretation Comments UA WBC (test code = 3 See_Comment N [Automa ashanti message] The UA WBC) system which ge nerated this result transmit ashanti reference range : <=5. The reference range was not used to interpr et this result as carmen l/abnormal. [facility] HospitalKzcfytoMTJDMOQSEZ6428-82-51 20:32:00 Test Item Value Reference Range Interpretation Comments UA Sq Epi (test code = Many /LPF A UA Sq Epi) *ABN*(11/26/2012 14:32:00) [facility]anoOyptnrnMRPFCFYUMO9181-28-87 20:32:00 Test Item Value Reference Range Interpretation Comments Micro? (test code = Performed *NA*(11/26/2012 Micro?) 14:32:00) [facility] HospitalUybpiioUJLHLFALVR1008-06-55 20:32:00 Test Item Value Reference Range Interpretation Comments UA Mucus (test code = Few /LPF UA Mucus) *NA*(11/26/2012 14:32:00) [facility]anoChonrubPFZGYCRHOZ7023-97-80 20:32:00 Test Item Value Reference Range Interpretation Comments UA Bili (test code = Negative *NA*(11/26/2012 UA Bili) 14:32:00) [facility]anoNztprxpZQQLKOVZKK8683-56-18 20:32:00 Test Item Value Reference Range Interpretation Comments UA Ketones (test code Negative mg/dL = UA Ketones) *NA*(11/26/2012 14:32:00) [facility]anoNiakvhpKYYAHCKTZJ8152-72-84 20:32:00 Test Item Value Reference Range Interpretation Comments UA Protein (test code Negative mg/dL N = UA Protein) (11/26/2012 14:32:00) [facility]anoYsmykshBIKHQJCOFQ9632-88-94 20:32:00 Test Item Value Reference Range Interpretation Comments UA Leuk Est (test code Trace *ABN*(11/26/2012 A = UA Leuk Est) 14:32:00) [facility]anoVfyhudiKTBYEZQHOA1796-12-10 20:32:00 Test Item Value Reference Range Interpretation Comments UA Nitrite (test code Negative (11/26/2012 N = UA Nitrite) 14:32:00) [facility]anoKgzuafhERSWDUBBKF7839-78-48 20:32:00 Test Item Value Reference Range Interpretation Comments UA Blood (test code = Negative (11/26/2012 N UA Blood) 14:32:00) [facility]anoGrfnfwnQHQZPUBJIF3650-00-61 20:32:00 Test Item Value Reference Range Interpretation Comments UA Color (test code = Yellow *NA*(11/26/2012 UA Color) 14:32:00) [facility]anoObhrvblKKBBVSABXB9916-02-60 20:32:00 Test Item Value Reference Range Interpretation Comments UA pH (test code = UA pH) 6.0 5.0-8.0 N [facility]anoLmdpqnhJODYNFHFUZ8614-76-69 20:32:00 Test Item Value Reference Range Interpretation Comments UA Spec Grav (test code = UA Spec Grav) 1.016 N [facility]anoCgrvzcxAPSMWLYZZX1248-34-85 20:32:00 Test Item Value Reference Range Interpretation Comments UA Turbidity (test code Slight A = UA Turbidity) *ABN*(11/26/2012 14:32:00) [facility]anoExhsariFCWHVXJMLM6409-25-23 20:32:00 Test Item Value Reference Range Interpretation Comments UA Glucose (test code Negative mg/dL = UA Glucose) *NA*(11/26/2012 14:32:00) [facility] HospitalFjccnprEMYTGYAJH9866-22-74 20:32:00 Test Item Value Reference Range Interpretation Comments A/G Ratio (test code = A/G Ratio) 0.9 0.7-1.6 N [facility] CenterXvsimcjMAATRBUWC7896-69-18 20:32:00 Test Item Value Reference Range Interpretation Comments Globulin (test code = Globulin) 4.4 2.0-4.0 H [facility] CenterVtjvctmEBCRJVGHS4304-72-97 20:32:00 Test Item Value Reference Range Interpretation Comments AGAP (test code = AGAP) 13.0 10.0-20.0 N [facility] CenterSxbtxoyISNXOJQIP2115-13-18 20:32:00 Test Item Value Reference Range Interpretation Comments B/C Ratio (test code = B/C Ratio) 18 6-25 N [facility] CenterIleynidWYDJXGJEL6601-29-99 20:32:00 Test Item Value Reference Range Interpretation Comments AST (test code = AST) 24 See_Comment N [Auto mated message] The system which ge nerated this result transmit ashanti reference range : <=37. The reference range was not used to interpr et this result as carmen l/abnormal. [facility] CenterGxqfqhxGZPKXSZWY5084-89-08 20:32:00 Test Item Value Reference Range Interpretation Comments Bili Total (test code = Bili Total) 0.5 0.2-1.3 N [facility] CenterBcypyaaWSHLYIAXP2278-90-08 20:32:00 Test Item Value Reference Range Interpretation Comments Alk Phos (test code = Alk Phos) 98 39-136 N [facility] CenterCwshpweQKSYPUMRE1103-70-61 20:32:00 Test Item Value Reference Range Interpretation Comments ALT (test code = ALT) 37 See_Comment N [Auto mated message] The system which ge nerated this result transmit ashanti reference range : <=65. The reference range was not used to interpr et this result as carmen l/abnormal. [facility] CenterUhxnuxgNLMXWBWFV0449-88-72 20:32:00 Test Item Value Reference Range Interpretation Comments Total Protein (test code = Total 8.5 6.4-8.4 H Protein) [facility] CenterPlktsajFINHKNMOV7762-75-54 20:32:00 Test Item Value Reference Range Interpretation Comments eGFR (test code = eGFR) 128 [facility] CenterAuwwkkjRMGEVNMLK4122-41-36 20:32:00 Test Item Value Reference Range Interpretation Comments Albumin Lvl (test code = Albumin Lvl) 4.1 3.5-5.0 N [facility] CenterBhdajlaQBZPCGGGE7157-09-27 20:32:00 Test Item Value Reference Range Interpretation Comments Chloride Lvl (test code = Chloride Lvl) 100 95-109 N [facility] CenterLayirzqHDUTAYJHW3098-71-65 20:32:00 Test Item Value Reference Range Interpretation Comments Potassium Lvl (test code = Potassium 4.0 3.5-5.1 N Lvl) [facility] CenterBospstbWBQSGSYSW2154-56-62 20:32:00 Test Item Value Reference Range Interpretation Comments CO2 (test code = CO2) 28 24-32 N [facility] CenterSsrlzorFBRBZSTOG0260-95-65 20:32:00 Test Item Value Reference Range Interpretation Comments Sodium Lvl (test code = Sodium Lvl) 137 135-145 N [facility] CenterSpmzqmpZFNPTGTJR8545-36-89 20:32:00 Test Item Value Reference Range Interpretation Comments Calcium Lvl (test code = Calcium Lvl) 9.1 8.5-10.5 N [facility] CenterStswbvtSUAMIWBNX7957-89-44 20:32:00 Test Item Value Reference Range Interpretation Comments Creatinine Lvl (test code = Creatinine 0.5 0.5-1.4 N Lvl) [facility] CenterPkmtijjYYERISTWC2286-87-81 20:32:00 Test Item Value Reference Range Interpretation Comments Glucose Lvl (test code = Glucose Lvl) 81 70-99 N [facility] CenterBloijenXBUAJUFZC1456-36-32 20:32:00 Test Item Value Reference Range Interpretation Comments BUN (test code = BUN) 9 7-22 N [facility] CenterQdeatshFBYRGXVEJ0094-11-53 20:32:00 Test Item Value Reference Range Interpretation Comments Vitamin D 1,25 (OH)2 Total (test code = 52 18-72 Vitamin D 1,25 (OH)2 Total) [facility] CenterGmnnhjcIYCMBUZOK4647-72-21 20:32:00 Test Item Value Reference Range Interpretation Comments Vitamin D2 1,25 (OH)2 (test code = no gt Vitamin D2 1,25 (OH)2) [facility] CenterHuzaxpgWWMHEZPBE1747-14-83 20:32:00 Test Item Value Reference Range Interpretation Comments Vitamin D3 1,25 (OH)2 (test code = 52 Vitamin D3 1,25 (OH)2) [facility] CenterWbfgdczHFZBLNQOJX6589-01-22 20:32:00 Test Item Value Reference Range Interpretation Comments MPV (test code = MPV) 8.7 7.4-10.4 [facility]OzekdpyEJEIXTHDXQ4300-87-55 20:32:00 Test Item Value Reference Range Interpretation Comments Hgb (test code = Hgb) 12.0 12.0-16.0 N [facility] CenterAargshlLRZXKXWITI4495-04-79 20:32:00 Test Item Value Reference Range Interpretation Comments RBC (test code = RBC) 4.51 4.20-5.40 N [facility] CenterTbimxzqJQXWRUUCQY2871-82-76 20:32:00 Test Item Value Reference Range Interpretation Comments WBC (test code = WBC) 15.6 3.7-10.4 H [facility] CenterDyokizmVOJAIECSVN3152-92-38 20:32:00 Test Item Value Reference Range Interpretation Comments Hct (test code = Hct) 37.0 36.0-48.0 N [facility] CenterFlriedwNHUNCKRIMP9690-60-75 20:32:00 Test Item Value Reference Range Interpretation Comments MCV (test code = MCV) 82.0 81.0-99.0 N [facility] CenterGigfyavSKRJTPXOOK9687-20-05 20:32:00 Test Item Value Reference Range Interpretation Comments RDW (test code = RDW) 15.9 11.5-14.5 H [facility] CenterWryodleKMONSPBUOO8167-40-45 20:32:00 Test Item Value Reference Range Interpretation Comments MCHC (test code = MCHC) 32.3 32.0-36.0 N [facility] CenterIjgcduxXPGLSTEGYA9845-02-28 20:32:00 Test Item Value Reference Range Interpretation Comments MCH (test code = MCH) 26.5 pg 27.0-31.0 L [facility] CenterCwceuxqGWELPGDEHZ7172-60-32 20:32:00 Test Item Value Reference Range Interpretation Comments Platelet (test code = Platelet) 371 133-450 N [facility] CenterTaexitmEFLGURUOCV7120-51-98 20:32:00 Test Item Value Reference Range Interpretation Comments Polychrom (test code = Slight (11/26/2012 N Polychrom) 14:32:00) [facility] CenterTezoyxtLOFQLCWSJO5862-52-22 20:32:00 Test Item Value Reference Range Interpretation Comments Large Plt (test code = Slight *ABN*(11/26/2012 A Large Plt) 14:32:00) [facility] CenterQfslfrkGTIZSBAAVB2347-88-69 20:32:00 Test Item Value Reference Range Interpretation Comments Segs (test code = Segs) 73.0 45.0-75.0 N [facility] CenterMaqpychXQPBGXGUWQ2457-79-15 20:32:00 Test Item Value Reference Range Interpretation Comments Eosinophils # (test code 0.2 See_Comment N [A utomated message] The = Eosinophils #) system whic h generated this result tra nsmitted reference range : <=0.5. The reference r megan was not used to int erpret this result as normal/abnormal . [facility] CenterBusrcbgAVUNIXUSWD1979-24-58 20:32:00 Test Item Value Reference Range Interpretation Comments Basophils # (test code 0.1 See_Comment N [Aut omated message] The = Basophils #) system which generated this result tra nsmitted reference range : <=0.2. The reference r megan was not used to int erpret this result as normal/abnormal . [facility] CenterZjghswwEFUWQULQUX3496-62-02 20:32:00 Test Item Value Reference Range Interpretation Comments Lymphocytes (test code = Lymphocytes) 21.3 20.0-40.0 N [facility] CenterCntrfvtJXVHRPMVWF0497-08-19 20:32:00 Test Item Value Reference Range Interpretation Comments Segs-Bands # (test code = Segs-Bands #) 11.4 1.5-8.1 H [facility] CenterTkwowkqXMNTWGBRAT2762-18-03 20:32:00 Test Item Value Reference Range Interpretation Comments Eosinophils (test code = 1.1 See_Comment N [A utomated message] The Eosinophils) system which ge nerated this result tra nsmitted reference range : <=4.0. The reference r megan was not used to int erpret this result as normal/abnormal . [facility] CenterZbxvsitRRGHJFRMTI6231-65-86 20:32:00 Test Item Value Reference Range Interpretation Comments Basophils (test code = 0.5 See_Comment N [Aut omated message] The Basophils) system which ge nerated this result tra nsmitted reference range : <=1.0. The reference r megan was not used to int erpret this result as normal/abnormal . [facility] CenterZjxcjxaEISCJJKXXX0798-95-17 20:32:00 Test Item Value Reference Range Interpretation Comments Monocytes (test code = Monocytes) 4.1 2.0-12.0 N [facility] CenterOohqwioINKPBMMGSO8293-80-75 20:32:00 Test Item Value Reference Range Interpretation Comments Lymphocytes # (test code = Lymphocytes 3.3 1.0-5.5 N #) [facility] CenterPemdriwVHHEQWYQQJ3944-88-54 20:32:00 Test Item Value Reference Range Interpretation Comments Monocytes # (test code 0.6 See_Comment N [Aut omated message] The = Monocytes #) system which generated this result tra nsmitted reference range : <=0.8. The reference r megan was not used to int erpret this result as normal/abnormal . [facility] CenterAekllxhVEYYKARWRU6949-07-82 20:32:00 Test Item Value Reference Range Interpretation Comments PTT (test code = PTT) 28.5 s 22.9-35.8 N [facility] CenterTbnpzexCTLZKNIUZQ4534-04-29 20:32:00 Test Item Value Reference Range Interpretation Comments PT (test code = PT) 12.9 s 12.0-14.7 N [facility] CenterLbihgrhOJJUNNYVRP8652-52-99 20:32:00 Test Item Value Reference Range Interpretation Comments INR (test code = INR) 0.95 0.85-1.17 N [facility]HwukfftJFKFWZROPQ5573-04-20 20:32:00 Test Item Value Reference Range Interpretation Comments UA Urobilinogen (test code *NA*(11/26/2012 0.1-1.0 = UA Urobilinogen) 14:32:00) [facility]PcfwjbbNXLDXHMPSQ3095-57-36 20:32:00 Test Item Value Reference Range Interpretation Comments UA Bacteria (test code Occasional /HPF = UA Bacteria) *NA*(11/26/2012 14:32:00) [facility] HospitalBsviqrsPNXLSVETSK9065-66-11 20:32:00 Test Item Value Reference Range Interpretation Comments UA RBC (test code = 1 See_Comment N [Automa ashanti message] The UA RBC) system which ge nerated this result transmit ashanti reference range : <=2. The reference range was not used to interpr et this result as carmen l/abnormal. [facility]anoNukkkixGYNXEXSBAE5716-76-98 20:32:00 Test Item Value Reference Range Interpretation Comments UA WBC (test code = 3 See_Comment N [Automa ashanti message] The UA WBC) system which ge nerated this result transmit ashanti reference range : <=5. The reference range was not used to interpr et this result as carmen l/abnormal. [facility]anoAdstbdjVPCQRBDPRV1982-60-05 20:32:00 Test Item Value Reference Range Interpretation Comments UA Sq Epi (test code = Many /LPF A UA Sq Epi) *ABN*(11/26/2012 14:32:00) [facility] HospitalFlyfqioZBAKEVHYFT7302-04-19 20:32:00 Test Item Value Reference Range Interpretation Comments Micro? (test code = Performed *NA*(11/26/2012 Micro?) 14:32:00) [facility] HospitalTulmcpfKCMAGQRFGI3820-29-10 20:32:00 Test Item Value Reference Range Interpretation Comments UA Mucus (test code = Few /LPF UA Mucus) *NA*(11/26/2012 14:32:00) [facility] HospitalLhwntwwLDMMSKASRR2670-58-19 20:32:00 Test Item Value Reference Range Interpretation Comments UA Bili (test code = Negative *NA*(11/26/2012 UA Bili) 14:32:00) [facility] HospitalJisubyxEHZZOBYBHK8526-66-14 20:32:00 Test Item Value Reference Range Interpretation Comments UA Ketones (test code Negative mg/dL = UA Ketones) *NA*(11/26/2012 14:32:00) [facility] HospitalUvcsndxVETLBFWYAF7904-29-48 20:32:00 Test Item Value Reference Range Interpretation Comments UA Protein (test code Negative mg/dL N = UA Protein) (11/26/2012 14:32:00) [facility] HospitalCtggboyWIXIFZMLAQ6180-72-36 20:32:00 Test Item Value Reference Range Interpretation Comments UA Leuk Est (test code Trace *ABN*(11/26/2012 A = UA Leuk Est) 14:32:00) [facility] HospitalAxmghzjZWSVTUKXAX0484-10-51 20:32:00 Test Item Value Reference Range Interpretation Comments UA Nitrite (test code Negative (11/26/2012 N = UA Nitrite) 14:32:00) [facility] HospitalQnawngcIYOGYPFSSK3584-21-55 20:32:00 Test Item Value Reference Range Interpretation Comments UA Blood (test code = Negative (11/26/2012 N UA Blood) 14:32:00) [facility] HospitalFxtmwucXYBOHCTHMW6998-78-64 20:32:00 Test Item Value Reference Range Interpretation Comments UA Color (test code = Yellow *NA*(11/26/2012 UA Color) 14:32:00) [facility] HospitalLhmyzuqGOMIWRBIXK7467-45-68 20:32:00 Test Item Value Reference Range Interpretation Comments UA pH (test code = UA pH) 6.0 5.0-8.0 N [facility] HospitalXyrlokaEZUQGFVVVL3277-39-77 20:32:00 Test Item Value Reference Range Interpretation Comments UA Spec Grav (test code = UA Spec Grav) 1.016 N [facility] HospitalIrnrvlsTKXPGRKPDC5413-57-26 20:32:00 Test Item Value Reference Range Interpretation Comments UA Turbidity (test code Slight A = UA Turbidity) *ABN*(11/26/2012 14:32:00) [facility] HospitalZyfdmzkMHHPMQVGHZ9887-44-24 20:32:00 Test Item Value Reference Range Interpretation Comments UA Glucose (test code Negative mg/dL = UA Glucose) *NA*(11/26/2012 14:32:00) [facility] CenterRaqsswsTHXPAKZPP1002-95-34 20:32:00 Test Item Value Reference Range Interpretation Comments A/G Ratio (test code = A/G Ratio) 0.9 0.7-1.6 N [facility] CenterCleawwqBHXXEWXYR3292-86-96 20:32:00 Test Item Value Reference Range Interpretation Comments Globulin (test code = Globulin) 4.4 2.0-4.0 H [facility] CenterHvdlvyqRPRNTCBWG0448-37-96 20:32:00 Test Item Value Reference Range Interpretation Comments AGAP (test code = AGAP) 13.0 10.0-20.0 N [facility] CenterFoyllicPKPJCOGHJ4814-18-81 20:32:00 Test Item Value Reference Range Interpretation Comments B/C Ratio (test code = B/C Ratio) 18 6-25 N [facility] CenterOzynypaDKQLPWMFG9431-69-88 20:32:00 Test Item Value Reference Range Interpretation Comments AST (test code = AST) 24 See_Comment N [Auto mated message] The system which ge nerated this result transmit ashanti reference range : <=37. The reference range was not used to interpr et this result as carmen l/abnormal. [facility] CenterXqhdgwwNGQYLLEHD5141-73-56 20:32:00 Test Item Value Reference Range Interpretation Comments Bili Total (test code = Bili Total) 0.5 0.2-1.3 N [facility] CenterXzxmufeWWRPNOUDF5245-72-03 20:32:00 Test Item Value Reference Range Interpretation Comments Alk Phos (test code = Alk Phos) 98 39-136 N [facility] CenterEodbadgJWVTRAVKS5697-89-36 20:32:00 Test Item Value Reference Range Interpretation Comments ALT (test code = ALT) 37 See_Comment N [Auto mated message] The system which ge nerated this result transmit ashanti reference range : <=65. The reference range was not used to interpr et this result as carmen l/abnormal. [facility] CenterWmqxpscRHXMDMFWC9722-99-52 20:32:00 Test Item Value Reference Range Interpretation Comments Total Protein (test code = Total 8.5 6.4-8.4 H Protein) [facility] CenterIorqdgfKDFBXPVSG8410-91-27 20:32:00 Test Item Value Reference Range Interpretation Comments eGFR (test code = eGFR) 128 [facility] CenterUicmytiWJLJGYEJU5584-17-13 20:32:00 Test Item Value Reference Range Interpretation Comments Albumin Lvl (test code = Albumin Lvl) 4.1 3.5-5.0 N [facility] CenterZkbgjsaZMVNFIOVW8165-96-54 20:32:00 Test Item Value Reference Range Interpretation Comments Chloride Lvl (test code = Chloride Lvl) 100 95-109 N [facility] CenterEoxopulOMKIMPYUC7268-49-83 20:32:00 Test Item Value Reference Range Interpretation Comments Potassium Lvl (test code = Potassium 4.0 3.5-5.1 N Lvl) [facility] CenterKvtjcwlFMMDLTFOB0262-12-50 20:32:00 Test Item Value Reference Range Interpretation Comments CO2 (test code = CO2) 28 24-32 N [facility] CenterQxsoayzDXHWBYMAJ0582-65-84 20:32:00 Test Item Value Reference Range Interpretation Comments Sodium Lvl (test code = Sodium Lvl) 137 135-145 N [facility] CenterOqlgrwgMQIAKTNPD8564-61-30 20:32:00 Test Item Value Reference Range Interpretation Comments Calcium Lvl (test code = Calcium Lvl) 9.1 8.5-10.5 N [facility] CenterEkrlikyDOSZHYURQ3017-97-63 20:32:00 Test Item Value Reference Range Interpretation Comments Creatinine Lvl (test code = Creatinine 0.5 0.5-1.4 N Lvl) [facility] CenterFwqkyoiYVDGMVTIZ5679-64-58 20:32:00 Test Item Value Reference Range Interpretation Comments Glucose Lvl (test code = Glucose Lvl) 81 70-99 N [facility] CenterXndwfdfRNXOEYUYW8879-66-72 20:32:00 Test Item Value Reference Range Interpretation Comments BUN (test code = BUN) 9 7-22 N [facility] CenterXmoacxyHWSLFJQAV4623-16-71 20:32:00 Test Item Value Reference Range Interpretation Comments Vitamin D 1,25 (OH)2 Total (test code = 52 18-72 Vitamin D 1,25 (OH)2 Total) [facility] CenterHtohvytAAOLPUQPX6271-94-15 20:32:00 Test Item Value Reference Range Interpretation Comments Vitamin D2 1,25 (OH)2 (test code = no gt Vitamin D2 1,25 (OH)2) [facility] CenterDwjndjmHFAOYJYML3589-21-01 20:32:00 Test Item Value Reference Range Interpretation Comments Vitamin D3 1,25 (OH)2 (test code = 52 Vitamin D3 1,25 (OH)2) [facility] CenterCswgppjTVDLOKZSUJ0985-86-00 20:32:00 Test Item Value Reference Range Interpretation Comments MPV (test code = MPV) 8.7 7.4-10.4 N [facility] CenterTxmppsdKSKDUFLSPF4073-92-83 20:32:00 Test Item Value Reference Range Interpretation Comments Hgb (test code = Hgb) 12.0 12.0-16.0 N [facility] CenterRqdcwdsPVTDXIZMFG0231-79-02 20:32:00 Test Item Value Reference Range Interpretation Comments RBC (test code = RBC) 4.51 4.20-5.40 N [facility] CenterXzdipdgOCLGNWKRSM5251-74-18 20:32:00 Test Item Value Reference Range Interpretation Comments WBC (test code = WBC) 15.6 3.7-10.4 H [facility] CenterNeeubtaOBDAKWMFFA6981-22-66 20:32:00 Test Item Value Reference Range Interpretation Comments Hct (test code = Hct) 37.0 36.0-48.0 N [facility] CenterUmkqrdwLRENRTGMDU0794-11-08 20:32:00 Test Item Value Reference Range Interpretation Comments MCV (test code = MCV) 82.0 81.0-99.0 N [facility] CenterDcctifzQONQXAJYYU0854-20-45 20:32:00 Test Item Value Reference Range Interpretation Comments RDW (test code = RDW) 15.9 11.5-14.5 H [facility] CenterItinvteGCSADRGTUH9597-50-20 20:32:00 Test Item Value Reference Range Interpretation Comments MCHC (test code = MCHC) 32.3 32.0-36.0 N [facility] CenterNedxqhyJUQKLOINPR8402-77-10 20:32:00 Test Item Value Reference Range Interpretation Comments MCH (test code = MCH) 26.5 pg 27.0-31.0 L [facility] CenterZgussfwLZRAAWKQFW9610-87-24 20:32:00 Test Item Value Reference Range Interpretation Comments Platelet (test code = Platelet) 371 133-450 N [facility] CenterJolizxoGPYOOSQMIZ0250-38-89 20:32:00 Test Item Value Reference Range Interpretation Comments Polychrom (test code = Slight (11/26/2012 N Polychrom) 14:32:00) [facility] CenterCcqkmcjYLTBSGTMTT0490-05-98 20:32:00 Test Item Value Reference Range Interpretation Comments Large Plt (test code = Slight *ABN*(11/26/2012 A Large Plt) 14:32:00) [facility] CenterZqwpaxnQOEGXZGTTP1083-77-81 20:32:00 Test Item Value Reference Range Interpretation Comments Segs (test code = Segs) 73.0 45.0-75.0 N [facility] CenterJjinghgUYSZPJSDDV4492-63-86 20:32:00 Test Item Value Reference Range Interpretation Comments Eosinophils # (test code 0.2 See_Comment N [A utomated message] The = Eosinophils #) system whic h generated this result tra nsmitted reference range : <=0.5. The reference r megan was not used to int erpret this result as normal/abnormal . [facility] CenterFyfubmfJHXTGTNAIO5531-82-87 20:32:00 Test Item Value Reference Range Interpretation Comments Basophils # (test code 0.1 See_Comment N [Aut omated message] The = Basophils #) system which generated this result tra nsmitted reference range : <=0.2. The reference r megan was not used to int erpret this result as normal/abnormal . [facility] CenterRarzxpuDKJGXKMGYT1336-73-05 20:32:00 Test Item Value Reference Range Interpretation Comments Lymphocytes (test code = Lymphocytes) 21.3 20.0-40.0 N [facility] CenterPgwyrpmGYTEIQJCWT6970-06-42 20:32:00 Test Item Value Reference Range Interpretation Comments Segs-Bands # (test code = Segs-Bands #) 11.4 1.5-8.1 H [facility] CenterEpmscypCCWHZZVIME9522-88-09 20:32:00 Test Item Value Reference Range Interpretation Comments Eosinophils (test code = 1.1 See_Comment N [A utomated message] The Eosinophils) system which ge nerated this result tra nsmitted reference range : <=4.0. The reference r megan was not used to int erpret this result as normal/abnormal . [facility] CenterWiofbyiUKZPUEGRIR9377-77-18 20:32:00 Test Item Value Reference Range Interpretation Comments Basophils (test code = 0.5 See_Comment N [Aut omated message] The Basophils) system which ge nerated this result tra nsmitted reference range : <=1.0. The reference r megan was not used to int erpret this result as normal/abnormal . [facility] CenterUweiylqBWFMJYAHWP8476-70-74 20:32:00 Test Item Value Reference Range Interpretation Comments Monocytes (test code = Monocytes) 4.1 2.0-12.0 N [facility] CenterQrjthwtBYSBBTUZAV0827-56-54 20:32:00 Test Item Value Reference Range Interpretation Comments Lymphocytes # (test code = Lymphocytes 3.3 1.0-5.5 N #) [facility] CenterPmbcglwBHAPLJKWEL8455-92-53 20:32:00 Test Item Value Reference Range Interpretation Comments Monocytes # (test code 0.6 See_Comment N [Aut omated message] The = Monocytes #) system which generated this result tra nsmitted reference range : <=0.8. The reference r megan was not used to int erpret this result as normal/abnormal . [facility] CenterWkacqxuRNSLHDEEYI6192-44-86 20:32:00 Test Item Value Reference Range Interpretation Comments PTT (test code = PTT) 28.5 s 22.9-35.8 N [facility] CenterQxdwtqcKQNLMIDRUB9413-76-66 20:32:00 Test Item Value Reference Range Interpretation Comments PT (test code = PT) 12.9 s 12.0-14.7 N [facility] CenterRqwhpscXXDQCNBVAB5169-61-56 20:32:00 Test Item Value Reference Range Interpretation Comments INR (test code = INR) 0.95 0.85-1.17 N [facility]FyywlwiDPTEELUYVE3433-30-53 20:32:00 Test Item Value Reference Range Interpretation Comments UA Urobilinogen (test code *NA*(11/26/2012 0.1-1.0 = UA Urobilinogen) 14:32:00) [facility] HospitalFaiauplGDTARTCTAI1775-13-24 20:32:00 Test Item Value Reference Range Interpretation Comments UA Bacteria (test code Occasional /HPF = UA Bacteria) *NA*(11/26/2012 14:32:00) [facility]JyzihoaKGPWLZKQNS7072-11-35 20:32:00 Test Item Value Reference Range Interpretation Comments UA RBC (test code = 1 See_Comment N [Automa ashanti message] The UA RBC) system which ge nerated this result transmit ashanti reference range : <=2. The reference range was not used to interpr et this result as carmen l/abnormal. [facility]anoKvfngeaFJXCPIWIVW7583-68-12 20:32:00 Test Item Value Reference Range Interpretation Comments UA WBC (test code = 3 See_Comment N [Automa ashanti message] The UA WBC) system which ge nerated this result transmit ashanti reference range : <=5. The reference range was not used to interpr et this result as carmen l/abnormal. [facility]anoWoeawdmNULNBDYSFN9110-58-87 20:32:00 Test Item Value Reference Range Interpretation Comments UA Sq Epi (test code = Many /LPF A UA Sq Epi) *ABN*(11/26/2012 14:32:00) [facility]anoLouuxxwKQABPLSYVE5228-21-65 20:32:00 Test Item Value Reference Range Interpretation Comments Micro? (test code = Performed *NA*(11/26/2012 Micro?) 14:32:00) [facility]anoKzdgcaqUPFKRTWODH5704-74-34 20:32:00 Test Item Value Reference Range Interpretation Comments UA Mucus (test code = Few /LPF UA Mucus) *NA*(11/26/2012 14:32:00) [facility]anoRcqzatnLVVTXSXOLJ8571-17-18 20:32:00 Test Item Value Reference Range Interpretation Comments UA Bili (test code = Negative *NA*(11/26/2012 UA Bili) 14:32:00) [facility]anoLpwltixLAWMFPTUJC4448-55-80 20:32:00 Test Item Value Reference Range Interpretation Comments UA Ketones (test code Negative mg/dL = UA Ketones) *NA*(11/26/2012 14:32:00) [facility]anoKpkspbfPSBNXJCWSU8380-51-21 20:32:00 Test Item Value Reference Range Interpretation Comments UA Protein (test code Negative mg/dL N = UA Protein) (11/26/2012 14:32:00) [facility] HospitalNgatykbLKBOSGWAAZ3166-58-40 20:32:00 Test Item Value Reference Range Interpretation Comments UA Leuk Est (test code Trace *ABN*(11/26/2012 A = UA Leuk Est) 14:32:00) [facility] HospitalYayqvcdNRSSFFLXGJ4397-54-37 20:32:00 Test Item Value Reference Range Interpretation Comments UA Nitrite (test code Negative (11/26/2012 N = UA Nitrite) 14:32:00) [facility] HospitalLyyrfziAPHOFZWIZZ5546-51-65 20:32:00 Test Item Value Reference Range Interpretation Comments UA Blood (test code = Negative (11/26/2012 N UA Blood) 14:32:00) [facility] HospitalPhcdzfhZJLLLTYXGR4866-80-61 20:32:00 Test Item Value Reference Range Interpretation Comments UA Color (test code = Yellow *NA*(11/26/2012 UA Color) 14:32:00) [facility] HospitalVgnfrxyZSTPNIWYVK7862-91-43 20:32:00 Test Item Value Reference Range Interpretation Comments UA pH (test code = UA pH) 6.0 5.0-8.0 N [facility] HospitalWzwgoouJUYTXFDEFV5347-20-11 20:32:00 Test Item Value Reference Range Interpretation Comments UA Spec Grav (test code = UA Spec Grav) 1.016 N [facility] HospitalShvjviyMOYWABVNUR3660-55-16 20:32:00 Test Item Value Reference Range Interpretation Comments UA Turbidity (test code Slight A = UA Turbidity) *ABN*(11/26/2012 14:32:00) [facility] HospitalKfpbrepKJCYHATSHT7465-24-89 20:32:00 Test Item Value Reference Range Interpretation Comments UA Glucose (test code Negative mg/dL = UA Glucose) *NA*(11/26/2012 14:32:00) [facility] CenterWvvvuprKIUXRIOHR6143-43-08 20:32:00 Test Item Value Reference Range Interpretation Comments A/G Ratio (test code = A/G Ratio) 0.9 0.7-1.6 N [facility] CenterNlodygkEHSHXCRCV4118-85-20 20:32:00 Test Item Value Reference Range Interpretation Comments Globulin (test code = Globulin) 4.4 2.0-4.0 H [facility] CenterRzvggvkFBSWUYYVG9316-26-16 20:32:00 Test Item Value Reference Range Interpretation Comments AGAP (test code = AGAP) 13.0 10.0-20.0 N [facility] CenterXrwlcrtBFSAPUYGX1309-55-35 20:32:00 Test Item Value Reference Range Interpretation Comments B/C Ratio (test code = B/C Ratio) 18 6-25 N [facility] CenterEisvcepHALVJYDCJ2490-90-11 20:32:00 Test Item Value Reference Range Interpretation Comments AST (test code = AST) 24 See_Comment N [Auto mated message] The system which ge nerated this result transmit ashanti reference range : <=37. The reference range was not used to interpr et this result as carmen l/abnormal. [facility] CenterTqwzqjqEPKMBVIWY4223-89-46 20:32:00 Test Item Value Reference Range Interpretation Comments Bili Total (test code = Bili Total) 0.5 0.2-1.3 N [facility] CenterVebrwdyOZBXFSFAA2734-29-17 20:32:00 Test Item Value Reference Range Interpretation Comments Alk Phos (test code = Alk Phos) 98 39-136 N [facility] CenterRqgcrloNXKIFBUVW2529-10-28 20:32:00 Test Item Value Reference Range Interpretation Comments ALT (test code = ALT) 37 See_Comment N [Auto mated message] The system which ge nerated this result transmit ashanti reference range : <=65. The reference range was not used to interpr et this result as carmen l/abnormal. [facility] CenterNilxnyxIVRAWFQPU6678-03-10 20:32:00 Test Item Value Reference Range Interpretation Comments Total Protein (test code = Total 8.5 6.4-8.4 H Protein) [facility] CenterLbytigrDSMVUVJNJ6271-81-48 20:32:00 Test Item Value Reference Range Interpretation Comments eGFR (test code = eGFR) 128 [facility] CenterSbsproeJRHEMIPVO0529-20-08 20:32:00 Test Item Value Reference Range Interpretation Comments Albumin Lvl (test code = Albumin Lvl) 4.1 3.5-5.0 N [facility] CenterKgkykrlKBNQDPWIS8447-22-58 20:32:00 Test Item Value Reference Range Interpretation Comments Chloride Lvl (test code = Chloride Lvl) 100 95-109 N [facility] CenterNgblsnfSGBRVJGQZ5500-44-34 20:32:00 Test Item Value Reference Range Interpretation Comments Potassium Lvl (test code = Potassium 4.0 3.5-5.1 N Lvl) [facility]LlmpgufVYAVRQYCG1261-05-69 20:32:00 Test Item Value Reference Range Interpretation Comments CO2 (test code = CO2) 28 24-32 N [facility] CenterLfbcihuNSCYQAGQM0783-36-15 20:32:00 Test Item Value Reference Range Interpretation Comments Sodium Lvl (test code = Sodium Lvl) 137 135-145 N [facility] CenterGxejgpqBIUJUBRRF2903-75-08 20:32:00 Test Item Value Reference Range Interpretation Comments Calcium Lvl (test code = Calcium Lvl) 9.1 8.5-10.5 N [facility] CenterWwblrutDLHKUUPNM9572-01-44 20:32:00 Test Item Value Reference Range Interpretation Comments Creatinine Lvl (test code = Creatinine 0.5 0.5-1.4 N Lvl) [facility] CenterBipzpjzDUAUNHSDU9349-37-93 20:32:00 Test Item Value Reference Range Interpretation Comments Glucose Lvl (test code = Glucose Lvl) 81 70-99 N [facility] CenterLzcstwlQCRDUEYST5658-42-47 20:32:00 Test Item Value Reference Range Interpretation Comments BUN (test code = BUN) 9 7-22 N [facility] CenterHgqdmztUWYZMDVZT4322-16-50 20:32:00 Test Item Value Reference Range Interpretation Comments Vitamin D 1,25 (OH)2 Total (test code = 52 18-72 Vitamin D 1,25 (OH)2 Total) [facility] CenterFwqaioxALWXALADC8397-71-38 20:32:00 Test Item Value Reference Range Interpretation Comments Vitamin D2 1,25 (OH)2 (test code = no gt Vitamin D2 1,25 (OH)2) [facility] CenterJewtdplCJVFXKTWN8862-65-05 20:32:00 Test Item Value Reference Range Interpretation Comments Vitamin D3 1,25 (OH)2 (test code = 52 Vitamin D3 1,25 (OH)2) [facility]HkjvlanUZMPFIMQIQ4004-84-89 20:32:00 Test Item Value Reference Range Interpretation Comments MPV (test code = MPV) 8.7 7.4-10.4 N [facility] CenterFryhfljUOZUVGINQU1734-06-80 20:32:00 Test Item Value Reference Range Interpretation Comments Hgb (test code = Hgb) 12.0 12.0-16.0 N [facility] CenterPzaoghgDHGVSAOFAC8036-67-37 20:32:00 Test Item Value Reference Range Interpretation Comments RBC (test code = RBC) 4.51 4.20-5.40 N [facility] CenterExmhfioVCCYQCOPVK2674-07-81 20:32:00 Test Item Value Reference Range Interpretation Comments WBC (test code = WBC) 15.6 3.7-10.4 H [facility] CenterDhpiimnFIRDZMGTIK8984-95-36 20:32:00 Test Item Value Reference Range Interpretation Comments Hct (test code = Hct) 37.0 36.0-48.0 N [facility] CenterUuighgkVQBHVKFXRD1754-90-09 20:32:00 Test Item Value Reference Range Interpretation Comments MCV (test code = MCV) 82.0 81.0-99.0 N [facility] CenterFlxwflcFZFUFAEGEP8590-66-64 20:32:00 Test Item Value Reference Range Interpretation Comments RDW (test code = RDW) 15.9 11.5-14.5 H [facility] CenterRwazvlyTEZLWRIYBU8089-99-61 20:32:00 Test Item Value Reference Range Interpretation Comments MCHC (test code = MCHC) 32.3 32.0-36.0 N [facility] CenterWvfybpuBROLFACVVM2193-98-16 20:32:00 Test Item Value Reference Range Interpretation Comments MCH (test code = MCH) 26.5 pg 27.0-31.0 L [facility] CenterAkxoxgaOIVDZCIBAL2488-72-58 20:32:00 Test Item Value Reference Range Interpretation Comments Platelet (test code = Platelet) 371 133-450 N [facility] CenterAonkjjjPNUHBTIZQG5177-12-76 20:32:00 Test Item Value Reference Range Interpretation Comments Polychrom (test code = Slight (11/26/2012 N Polychrom) 14:32:00) [facility] CenterHopzrduCGJDKFNLBG6868-69-44 20:32:00 Test Item Value Reference Range Interpretation Comments Large Plt (test code = Slight *ABN*(11/26/2012 A Large Plt) 14:32:00) [facility] CenterTdfsbyyAHBNKASSVQ5564-91-92 20:32:00 Test Item Value Reference Range Interpretation Comments Segs (test code = Segs) 73.0 45.0-75.0 N [facility] CenterDvoykvoQDVCAGBRVR3965-93-45 20:32:00 Test Item Value Reference Range Interpretation Comments Eosinophils # (test code 0.2 See_Comment N [A utomated message] The = Eosinophils #) system [facility] generated this result tra nsmitted reference range : <=0.5. The reference r megan was not used to int erpret this result as normal/abnormal . [facility] CenterFyodwdtULUWVZLETU8042-47-40 20:32:00 Test Item Value Reference Range Interpretation Comments Basophils # (test code 0.1 See_Comment N [Aut omated message] The = Basophils #) system which generated this result tra nsmitted reference range : <=0.2. The reference r megan was not used to int erpret this result as normal/abnormal . [facility] CenterHjulgpbANVZXTUCOU3462-37-53 20:32:00 Test Item Value Reference Range Interpretation Comments Lymphocytes (test code = Lymphocytes) 21.3 20.0-40.0 N [facility] CenterSqdwfcpJKGFGBEZQF8257-78-17 20:32:00 Test Item Value Reference Range Interpretation Comments Segs-Bands # (test code = Segs-Bands #) 11.4 1.5-8.1 H [facility] CenterAuvekipKXTQJXXHXT6011-33-99 20:32:00 Test Item Value Reference Range Interpretation Comments Eosinophils (test code = 1.1 See_Comment N [A utomated message] The Eosinophils) system which ge nerated this result tra nsmitted reference range : <=4.0. The reference r megan was not used to int erpret this result as normal/abnormal . [facility] CenterGahecrhGCVEOLHLFD3952-83-89 20:32:00 Test Item Value Reference Range Interpretation Comments Basophils (test code = 0.5 See_Comment N [Aut omated message] The Basophils) system which ge nerated this result tra nsmitted reference range : <=1.0. The reference r megan was not used to int erpret this result as normal/abnormal . [facility] CenterYxtyrdfDDFPXEGBTR7166-03-34 20:32:00 Test Item Value Reference Range Interpretation Comments Monocytes (test code = Monocytes) 4.1 2.0-12.0 N [facility] CenterBubqyvfRKVTZZUAWG6738-59-28 20:32:00 Test Item Value Reference Range Interpretation Comments Lymphocytes # (test code = Lymphocytes 3.3 1.0-5.5 N #) [facility] CenterJihvnheVKXAIIJXAE9219-36-13 20:32:00 Test Item Value Reference Range Interpretation Comments Monocytes # (test code 0.6 See_Comment N [Aut omated message] The = Monocytes #) system which generated this result tra nsmitted reference range : <=0.8. The reference r megan was not used to int erpret this result as normal/abnormal . [facility] CenterUviwfvjTKOSJRSHTP5495-21-53 20:32:00 Test Item Value Reference Range Interpretation Comments PTT (test code = PTT) 28.5 s 22.9-35.8 N [facility] CenterCecvllmDKZQCHWRND0945-99-74 20:32:00 Test Item Value Reference Range Interpretation Comments PT (test code = PT) 12.9 s 12.0-14.7 N [facility] CenterFcljxnaMJJKITVTHR4650-17-87 20:32:00 Test Item Value Reference Range Interpretation Comments INR (test code = INR) 0.95 0.85-1.17 N [facility]LfevzjuNLDBNURPLI9400-00-95 20:32:00 Test Item Value Reference Range Interpretation Comments UA Urobilinogen (test code *NA*(11/26/2012 0.1-1.0 = UA Urobilinogen) 14:32:00) [facility] HospitalAnecveaQJUEVGNNZK7686-78-32 20:32:00 Test Item Value Reference Range Interpretation Comments UA Bacteria (test code Occasional /HPF = UA Bacteria) *NA*(11/26/2012 14:32:00) [facility] HospitalHzubhbdLSYAESQEAS9540-06-35 20:32:00 Test Item Value Reference Range Interpretation Comments UA RBC (test code = 1 See_Comment N [Automa ashanti message] The UA RBC) system which ge nerated this result transmit ashanti reference range : <=2. The reference range was not used to interpr et this result as carmen l/abnormal. [facility] HospitalOqonxmtKZYCVXIFLR7792-44-78 20:32:00 Test Item Value Reference Range Interpretation Comments UA WBC (test code = 3 See_Comment N [Automa ashanti message] The UA WBC) system which ge nerated this result transmit ashanti reference range : <=5. The reference range was not used to interpr et this result as carmen l/abnormal. [facility] HospitalTgncgkiTAHDARWTQB1699-41-65 20:32:00 Test Item Value Reference Range Interpretation Comments UA Sq Epi (test code = Many /LPF A UA Sq Epi) *ABN*(11/26/2012 14:32:00) [facility] HospitalNgvltmrBOWZRSZTPX2541-12-08 20:32:00 Test Item Value Reference Range Interpretation Comments Micro? (test code = Performed *NA*(11/26/2012 Micro?) 14:32:00) [facility] HospitalRkjxowpFTFIKORHAV8849-69-99 20:32:00 Test Item Value Reference Range Interpretation Comments UA Mucus (test code = Few /LPF UA Mucus) *NA*(11/26/2012 14:32:00) [facility] HospitalWgoerhkNDCTBSSTGB1588-32-30 20:32:00 Test Item Value Reference Range Interpretation Comments UA Bili (test code = Negative *NA*(11/26/2012 UA Bili) 14:32:00) [facility] HospitalOwufwjfJKJYQDNVXF0254-65-61 20:32:00 Test Item Value Reference Range Interpretation Comments UA Ketones (test code Negative mg/dL = UA Ketones) *NA*(11/26/2012 14:32:00) [facility] HospitalEgbztyzBYQKBIYXMT7430-98-22 20:32:00 Test Item Value Reference Range Interpretation Comments UA Protein (test code Negative mg/dL N = UA Protein) (11/26/2012 14:32:00) [facility] HospitalYslbwnjJBRRCPJUGK2358-97-46 20:32:00 Test Item Value Reference Range Interpretation Comments UA Leuk Est (test code Trace *ABN*(11/26/2012 A = UA Leuk Est) 14:32:00) [facility] HospitalTipzpmaPNZJSQQTEK6198-62-83 20:32:00 Test Item Value Reference Range Interpretation Comments UA Nitrite (test code Negative (11/26/2012 N = UA Nitrite) 14:32:00) [facility] HospitalQxmgltyTVNIOUSOKX1718-91-35 20:32:00 Test Item Value Reference Range Interpretation Comments UA Blood (test code = Negative (11/26/2012 N UA Blood) 14:32:00) [facility] HospitalVbmmmqiNFBBITHZMZ6336-43-67 20:32:00 Test Item Value Reference Range Interpretation Comments UA Color (test code = Yellow *NA*(11/26/2012 UA Color) 14:32:00) [facility] HospitalVtecohaHDXXTOYOHT6523-01-71 20:32:00 Test Item Value Reference Range Interpretation Comments UA pH (test code = UA pH) 6.0 5.0-8.0 N [facility]MfinhhsMBCXSAIILC9338-17-56 20:32:00 Test Item Value Reference Range Interpretation Comments UA Spec Grav (test code = UA Spec Grav) 1.016 N [facility] HospitalVklglikSVRBVSOJUX4223-20-74 20:32:00 Test Item Value Reference Range Interpretation Comments UA Turbidity (test code Slight A = UA Turbidity) *ABN*(11/26/2012 14:32:00) [facility] HospitalHovxjopBEJVDNTGLK4649-51-01 20:32:00 Test Item Value Reference Range Interpretation Comments UA Glucose (test code Negative mg/dL = UA Glucose) *NA*(11/26/2012 14:32:00) [facility]TgtfuthXLOJOSGWX6211-15-39 20:32:00 Test Item Value Reference Range Interpretation Comments A/G Ratio (test code = A/G Ratio) 0.9 0.7-1.6 N [facility] CenterKjptyviXGFDVIOMY4500-89-83 20:32:00 Test Item Value Reference Range Interpretation Comments Globulin (test code = Globulin) 4.4 2.0-4.0 H [facility] CenterNggqqjcDJRGMDKFT6935-47-98 20:32:00 Test Item Value Reference Range Interpretation Comments AGAP (test code = AGAP) 13.0 10.0-20.0 N [facility] CenterRwwqsvyKTPEOKTGN9276-63-58 20:32:00 Test Item Value Reference Range Interpretation Comments B/C Ratio (test code = B/C Ratio) 18 6-25 N [facility] CenterSztoploCYUSMIYUB2672-62-88 20:32:00 Test Item Value Reference Range Interpretation Comments AST (test code = AST) 24 See_Comment N [Auto mated message] The system which ge nerated this result transmit ashanti reference range : <=37. The reference range was not used to interpr et this result as carmen l/abnormal. [facility] CenterBblvlaeUZAFLQLTL6971-48-16 20:32:00 Test Item Value Reference Range Interpretation Comments Bili Total (test code = Bili Total) 0.5 0.2-1.3 N [facility] CenterZqocipnGUVZOVPPB1047-00-56 20:32:00 Test Item Value Reference Range Interpretation Comments Alk Phos (test code = Alk Phos) 98 39-136 N [facility] CenterErombdlPAYVLUSAV8524-57-99 20:32:00 Test Item Value Reference Range Interpretation Comments ALT (test code = ALT) 37 See_Comment N [Auto mated message] The system which ge nerated this result transmit ashanti reference range : <=65. The reference range was not used to interpr et this result as carmen l/abnormal. [facility] CenterBjuosyaWYMZNYYRF5298-68-76 20:32:00 Test Item Value Reference Range Interpretation Comments Total Protein (test code = Total 8.5 6.4-8.4 H Protein) [facility] CenterOmgrzlmWIAZRFHJV0296-42-11 20:32:00 Test Item Value Reference Range Interpretation Comments eGFR (test code = eGFR) 128 [facility] CenterJvgmmlqKIBJPAEFI1739-76-59 20:32:00 Test Item Value Reference Range Interpretation Comments Albumin Lvl (test code = Albumin Lvl) 4.1 3.5-5.0 N [facility] CenterOxicqsmANNNPCNDH9239-92-93 20:32:00 Test Item Value Reference Range Interpretation Comments Chloride Lvl (test code = Chloride Lvl) 100 95-109 N [facility] CenterHenomlbKMRKMHHZU5538-43-71 20:32:00 Test Item Value Reference Range Interpretation Comments Potassium Lvl (test code = Potassium 4.0 3.5-5.1 N Lvl) [facility] CenterHrooligMXZLTMQMP7901-83-85 20:32:00 Test Item Value Reference Range Interpretation Comments CO2 (test code = CO2) 28 24-32 N [facility] CenterMyqplofTEPCCUDQU0437-67-11 20:32:00 Test Item Value Reference Range Interpretation Comments Sodium Lvl (test code = Sodium Lvl) 137 135-145 N [facility] CenterHfqghbaGFGTWQOOU0146-92-40 20:32:00 Test Item Value Reference Range Interpretation Comments Calcium Lvl (test code = Calcium Lvl) 9.1 8.5-10.5 N [facility] CenterFehtvttUCXYQGNMB3940-22-85 20:32:00 Test Item Value Reference Range Interpretation Comments Creatinine Lvl (test code = Creatinine 0.5 0.5-1.4 N Lvl) [facility] CenterHxflbahKWUDPFTDB7850-72-51 20:32:00 Test Item Value Reference Range Interpretation Comments Glucose Lvl (test code = Glucose Lvl) 81 70-99 N [facility] CenterCnmhdimUTACGBVSA1490-37-70 20:32:00 Test Item Value Reference Range Interpretation Comments BUN (test code = BUN) 9 7-22 N [facility] CenterJpzpjznJSZYOZISP5877-98-76 20:32:00 Test Item Value Reference Range Interpretation Comments Vitamin D 1,25 (OH)2 Total (test code = 52 18-72 Vitamin D 1,25 (OH)2 Total) [facility] CenterYrvwfrfNDVAQDLZG1104-32-54 20:32:00 Test Item Value Reference Range Interpretation Comments Vitamin D2 1,25 (OH)2 (test code = no gt Vitamin D2 1,25 (OH)2) [facility] CenterQdcsjdaQAOJSZZDO8259-01-20 20:32:00 Test Item Value Reference Range Interpretation Comments Vitamin D3 1,25 (OH)2 (test code = 52 Vitamin D3 1,25 (OH)2) [facility] CenterYuuqbsnKYSNDLGZZK6335-86-91 20:32:00 Test Item Value Reference Range Interpretation Comments MPV (test code = MPV) 8.7 7.4-10.4 N [facility] CenterWyczpwzAZLAQBQQTF9430-32-02 20:32:00 Test Item Value Reference Range Interpretation Comments Hgb (test code = Hgb) 12.0 12.0-16.0 N [facility] CenterCertrjlHJQXKLGVAL7821-71-46 20:32:00 Test Item Value Reference Range Interpretation Comments RBC (test code = RBC) 4.51 4.20-5.40 N [facility] CenterZgmvqkvKBGYQIEQSH0689-64-37 20:32:00 Test Item Value Reference Range Interpretation Comments WBC (test code = WBC) 15.6 3.7-10.4 H [facility] CenterLvguapxYSIZQYJNAN5922-81-34 20:32:00 Test Item Value Reference Range Interpretation Comments Hct (test code = Hct) 37.0 36.0-48.0 N [facility] CenterHlyzzbkDNPUCTHAKQ7858-64-84 20:32:00 Test Item Value Reference Range Interpretation Comments MCV (test code = MCV) 82.0 81.0-99.0 N [facility] CenterRayludxKXIJPSCZDP5882-09-70 20:32:00 Test Item Value Reference Range Interpretation Comments RDW (test code = RDW) 15.9 11.5-14.5 H [facility] CenterAxjpdatOVJMBZXZVU7160-87-89 20:32:00 Test Item Value Reference Range Interpretation Comments MCHC (test code = MCHC) 32.3 32.0-36.0 N [facility] CenterAueymrsKQVHIKFDCH2792-80-01 20:32:00 Test Item Value Reference Range Interpretation Comments MCH (test code = MCH) 26.5 pg 27.0-31.0 L [facility] CenterNoqlbgwGJIAOEEQDC5227-26-72 20:32:00 Test Item Value Reference Range Interpretation Comments Platelet (test code = Platelet) 371 133-450 N [facility] CenterAokaeniUCMRSIJDLI4958-17-70 20:32:00 Test Item Value Reference Range Interpretation Comments Polychrom (test code = Slight (11/26/2012 N Polychrom) 14:32:00) [facility] CenterZkzhopmOOLYSUGGNA6013-48-32 20:32:00 Test Item Value Reference Range Interpretation Comments Large Plt (test code = Slight *ABN*(11/26/2012 A Large Plt) 14:32:00) [facility] CenterUmruljvBZFYIYQMEL4875-69-23 20:32:00 Test Item Value Reference Range Interpretation Comments Segs (test code = Segs) 73.0 45.0-75.0 N [facility] CenterLgbbassCFSGMBGIBF3368-12-75 20:32:00 Test Item Value Reference Range Interpretation Comments Eosinophils # (test code 0.2 See_Comment N [A utomated message] The = Eosinophils #) system wh h generated this result tra nsmitted reference range : <=0.5. The reference r megan was not used to int erpret this result as normal/abnormal . [facility] CenterDqpjavaTNBYVHEXOZ0887-02-09 20:32:00 Test Item Value Reference Range Interpretation Comments Basophils # (test code 0.1 See_Comment N [Aut omated message] The = Basophils #) system which generated this result tra nsmitted reference range : <=0.2. The reference r megan was not used to int erpret this result as normal/abnormal . [facility] CenterBotereuGMHNCXNBHW9250-80-01 20:32:00 Test Item Value Reference Range Interpretation Comments Lymphocytes (test code = Lymphocytes) 21.3 20.0-40.0 N [facility] CenterPsxvquhROZGZBXJZA8434-70-98 20:32:00 Test Item Value Reference Range Interpretation Comments Segs-Bands # (test code = Segs-Bands #) 11.4 1.5-8.1 H [facility] CenterNcgzxnfGWUSBSZNMS4946-56-69 20:32:00 Test Item Value Reference Range Interpretation Comments Eosinophils (test code = 1.1 See_Comment N [A utomated message] The Eosinophils) system which ge nerated this result tra nsmitted reference range : <=4.0. The reference r megan was not used to int erpret this result as normal/abnormal . [facility] CenterIbmdxcyBVIGVYRMYO9632-04-68 20:32:00 Test Item Value Reference Range Interpretation Comments Basophils (test code = 0.5 See_Comment N [Aut omated message] The Basophils) system which ge nerated this result tra nsmitted reference range : <=1.0. The reference r megan was not used to int erpret this result as normal/abnormal . [facility] CenterIygnmdqIRBGEMKATX9781-88-83 20:32:00 Test Item Value Reference Range Interpretation Comments Monocytes (test code = Monocytes) 4.1 2.0-12.0 N [facility] CenterMlubditHXKQGVAHSK8796-05-05 20:32:00 Test Item Value Reference Range Interpretation Comments Lymphocytes # (test code = Lymphocytes 3.3 1.0-5.5 N #) [facility] CenterWjrjllnDSVOXCAXPV7448-67-73 20:32:00 Test Item Value Reference Range Interpretation Comments Monocytes # (test code 0.6 See_Comment N [Aut omated message] The = Monocytes #) system which generated this result tra nsmitted reference range : <=0.8. The reference r megan was not used to int erpret this result as normal/abnormal . [facility] CenterLyrylloYXGZEFUPXP6894-57-42 20:32:00 Test Item Value Reference Range Interpretation Comments PTT (test code = PTT) 28.5 s 22.9-35.8 N [facility] CenterYhgcaakHXOTXDUFIK8667-15-59 20:32:00 Test Item Value Reference Range Interpretation Comments PT (test code = PT) 12.9 s 12.0-14.7 N [facility] CenterQlqojovBVSICNCLVG5921-40-51 20:32:00 Test Item Value Reference Range Interpretation Comments INR (test code = INR) 0.95 0.85-1.17 N [facility]ExqbpqbROKHYCTLII7659-15-19 20:32:00 Test Item Value Reference Range Interpretation Comments UA Urobilinogen (test code *NA*(11/26/2012 0.1-1.0 = UA Urobilinogen) 14:32:00) [facility]TxnprdhBEQSTJDFOS9613-84-42 20:32:00 Test Item Value Reference Range Interpretation Comments UA Bacteria (test code Occasional /HPF = UA Bacteria) *NA*(11/26/2012 14:32:00) [facility] HospitalBpollyfBWLRZCHJXK4714-98-11 20:32:00 Test Item Value Reference Range Interpretation Comments UA RBC (test code = 1 See_Comment N [Automa ashanti message] The UA RBC) system which ge nerated this result transmit ashanti reference range : <=2. The reference range was not used to interpr et this result as carmen l/abnormal. [facility] CenterLhoujzyKXWEISEWUL1834-40-65 20:32:00 Test Item Value Reference Range Interpretation Comments UA WBC (test code = 3 See_Comment N [Automa ashanti message] The UA WBC) system which ge nerated this result transmit ashanti reference range : <=5. The reference range was not used to interpr et this result as carmen l/abnormal. [facility] HospitalCwrsqlnHQLPZSYFFQ6105-51-17 20:32:00 Test Item Value Reference Range Interpretation Comments UA Sq Epi (test code = Many /LPF A UA Sq Epi) *ABN*(11/26/2012 14:32:00) [facility] CenterGltplvnYHCTDTUENU0627-81-21 20:32:00 Test Item Value Reference Range Interpretation Comments Micro? (test code = Performed *NA*(11/26/2012 Micro?) 14:32:00) [facility] CenterPyphchaWZGZONSQDB0774-58-87 20:32:00 Test Item Value Reference Range Interpretation Comments UA Mucus (test code = Few /LPF UA Mucus) *NA*(11/26/2012 14:32:00) [facility] CenterNxuaeqmADHUISMSGP8121-30-20 20:32:00 Test Item Value Reference Range Interpretation Comments UA Bili (test code = Negative *NA*(11/26/2012 UA Bili) 14:32:00) [facility] CenterVbhftxtRDKDIGXPNN4435-43-84 20:32:00 Test Item Value Reference Range Interpretation Comments UA Ketones (test code Negative mg/dL = UA Ketones) *NA*(11/26/2012 14:32:00) [facility] HospitalJtqyercPAUALBZAQ4231-71-29 20:32:00 Test Item Value Reference Range Interpretation Comments A/G Ratio (test code = A/G Ratio) 0.9 0.7-1.6 N [facility] CenterVpawsvcDWHPFEKRWU4859-55-28 20:32:00 Test Item Value Reference Range Interpretation Comments UA Protein (test code Negative mg/dL N = UA Protein) (11/26/2012 14:32:00) [facility] HospitalLkbyvsmRYXDGKTIWM6142-10-59 20:32:00 Test Item Value Reference Range Interpretation Comments UA Leuk Est (test code Trace *ABN*(11/26/2012 A = UA Leuk Est) 14:32:00) [facility] HospitalAqvvjxfQRGYBTCVDG4988-85-20 20:32:00 Test Item Value Reference Range Interpretation Comments UA Nitrite (test code Negative (11/26/2012 N = UA Nitrite) 14:32:00) [facility] HospitalVwtphbhHMPAYBGKYZ9214-92-53 20:32:00 Test Item Value Reference Range Interpretation Comments UA Blood (test code = Negative (11/26/2012 N UA Blood) 14:32:00) [facility] HospitalNbtghgsPKUSSOXZJE7795-11-32 20:32:00 Test Item Value Reference Range Interpretation Comments UA Color (test code = Yellow *NA*(11/26/2012 UA Color) 14:32:00) [facility] HospitalWqvkajsUNDJOPXZZE8061-79-97 20:32:00 Test Item Value Reference Range Interpretation Comments UA pH (test code = UA pH) 6.0 5.0-8.0 N [facility] HospitalCgarmxqCLNIWBFHQJ9797-11-18 20:32:00 Test Item Value Reference Range Interpretation Comments UA Spec Grav (test code = UA Spec Grav) 1.016 N [facility] HospitalZutobjjONUXLVNPBA5650-17-19 20:32:00 Test Item Value Reference Range Interpretation Comments UA Turbidity (test code Slight A = UA Turbidity) *ABN*(11/26/2012 14:32:00) [facility] HospitalVoqcjnlEIBPNOMPLU5712-85-41 20:32:00 Test Item Value Reference Range Interpretation Comments UA Glucose (test code Negative mg/dL = UA Glucose) *NA*(11/26/2012 14:32:00) [facility] CenterXcksqxnSHWJCHQOV2441-58-93 20:32:00 Test Item Value Reference Range Interpretation Comments Globulin (test code = Globulin) 4.4 2.0-4.0 H [facility] CenterApswcdeJWJXKZBBQ4532-89-50 20:32:00 Test Item Value Reference Range Interpretation Comments AGAP (test code = AGAP) 13.0 10.0-20.0 N [facility] CenterUvjzsefEYJRQBYVZ6731-08-19 20:32:00 Test Item Value Reference Range Interpretation Comments B/C Ratio (test code = B/C Ratio) 18 6-25 N [facility] [facility]ApgxbizCKRGOORXQ7147-40-12 20:32:00 Test Item Value Reference Range Interpretation Comments AST (test code = AST) 24 See_Comment N [Auto mated message] The system which ge nerated this result transmit ashanti reference range : <=37. The reference range was not used to interpr et this result as carmen l/abnormal. [facility]KkreikwLDVKCEWPL7790-68-39 20:32:00 Test Item Value Reference Range Interpretation Comments Bili Total (test code = Bili Total) 0.5 0.2-1.3 N [facility] CenterNphsdhkUKFYUZNXC4602-71-52 20:32:00 Test Item Value Reference Range Interpretation Comments Alk Phos (test code = Alk Phos) 98 39-136 N [facility] CenterPridqbdCLINXFHPU6851-40-46 20:32:00 Test Item Value Reference Range Interpretation Comments ALT (test code = ALT) 37 See_Comment N [Auto mated message] The system which ge nerated this result transmit ashanti reference range : <=65. The reference range was not used to interpr et this result as carmen l/abnormal. [facility] CenterCtwkmtvPQARSFQTG0660-55-41 20:32:00 Test Item Value Reference Range Interpretation Comments Total Protein (test code = Total 8.5 6.4-8.4 H Protein) [facility] CenterDbeexjdLOEPHCLNR3096-28-27 20:32:00 Test Item Value Reference Range Interpretation Comments eGFR (test code = eGFR) 128 [facility] CenterDkafxwtVLZTMMZFR9825-88-75 20:32:00 Test Item Value Reference Range Interpretation Comments Albumin Lvl (test code = Albumin Lvl) 4.1 3.5-5.0 N [facility] CenterJdzwsyzQEKBUMYHO5955-37-07 20:32:00 Test Item Value Reference Range Interpretation Comments Chloride Lvl (test code = Chloride Lvl) 100 95-109 N [facility] CenterJbtryrwSDYYLIPJA1555-62-81 20:32:00 Test Item Value Reference Range Interpretation Comments A/G Ratio (test code = A/G Ratio) 0.9 0.7-1.6 N [facility] CenterRdscrmgCPVNHSCFX9880-33-34 20:32:00 Test Item Value Reference Range Interpretation Comments Globulin (test code = Globulin) 4.4 2.0-4.0 H [facility] CenterTbwsmegTRCTHXUCF3350-47-92 20:32:00 Test Item Value Reference Range Interpretation Comments AGAP (test code = AGAP) 13.0 10.0-20.0 N [facility] CenterGacbqrcCMIQCSLOC1404-56-25 20:32:00 Test Item Value Reference Range Interpretation Comments B/C Ratio (test code = B/C Ratio) 18 6-25 N [facility] CenterRccucukSLWGHXYJW1769-04-04 20:32:00 Test Item Value Reference Range Interpretation Comments Potassium Lvl (test code = Potassium 4.0 3.5-5.1 N Lvl) [facility] CenterEkwqjcqHZRCQKPCU6006-06-30 20:32:00 Test Item Value Reference Range Interpretation Comments AST (test code = AST) 24 See_Comment N [Auto mated message] The system which ge nerated this result transmit ashanti reference range : <=37. The reference range was not used to interpr et this result as carmen l/abnormal. [facility] CenterZplmsrtPDDUGUUUD8594-15-33 20:32:00 Test Item Value Reference Range Interpretation Comments Bili Total (test code = Bili Total) 0.5 0.2-1.3 N [facility] CenterYjgictbEYEMNUVDX3901-53-42 20:32:00 Test Item Value Reference Range Interpretation Comments Alk Phos (test code = Alk Phos) 98 39-136 N [facility] CenterLxhqgqcJVRXFDZJW3185-88-80 20:32:00 Test Item Value Reference Range Interpretation Comments ALT (test code = ALT) 37 See_Comment N [Auto mated message] The system which ge nerated this result transmit ashanti reference range : <=65. The reference range was not used to interpr et this result as carmen l/abnormal. [facility] CenterVqbfokcBNGHRZDED6665-13-72 20:32:00 Test Item Value Reference Range Interpretation Comments Total Protein (test code = Total 8.5 6.4-8.4 H Protein) [facility] CenterLtajovrDYOMDWADM7299-71-01 20:32:00 Test Item Value Reference Range Interpretation Comments eGFR (test code = eGFR) 128 [facility] CenterSvnflznQQTPLLCMW8259-33-51 20:32:00 Test Item Value Reference Range Interpretation Comments Albumin Lvl (test code = Albumin Lvl) 4.1 3.5-5.0 N [facility] CenterIymdgreIIQXFMRSW1224-51-93 20:32:00 Test Item Value Reference Range Interpretation Comments Chloride Lvl (test code = Chloride Lvl) 100 95-109 N [facility] CenterWaqludfYZDZGNERM5918-54-00 20:32:00 Test Item Value Reference Range Interpretation Comments Potassium Lvl (test code = Potassium 4.0 3.5-5.1 N Lvl) [facility] CenterJhbgoeuXOJZEXPWJ3707-63-93 20:32:00 Test Item Value Reference Range Interpretation Comments CO2 (test code = CO2) 28 24-32 N [facility] CenterJwpgnzkXWRRUAYHF2016-62-27 20:32:00 Test Item Value Reference Range Interpretation Comments CO2 (test code = CO2) 28 24-32 N [facility] CenterOgqnvkbEDTNZNOLF2482-55-67 20:32:00 Test Item Value Reference Range Interpretation Comments Sodium Lvl (test code = Sodium Lvl) 137 135-145 N [facility] CenterYyvbwjlRUZOCOIYA3970-97-09 20:32:00 Test Item Value Reference Range Interpretation Comments Calcium Lvl (test code = Calcium Lvl) 9.1 8.5-10.5 N [facility] CenterRxefcucACQAAUCAZ6204-46-78 20:32:00 Test Item Value Reference Range Interpretation Comments Creatinine Lvl (test code = Creatinine 0.5 0.5-1.4 N Lvl) [facility] CenterSxpjavrCOMRQGQQL0034-58-25 20:32:00 Test Item Value Reference Range Interpretation Comments Glucose Lvl (test code = Glucose Lvl) 81 70-99 N [facility] CenterPmsjercRSXCGORPX0288-22-55 20:32:00 Test Item Value Reference Range Interpretation Comments BUN (test code = BUN) 9 7-22 N [facility] CenterInsicapSDZQHRNRP6052-75-77 20:32:00 Test Item Value Reference Range Interpretation Comments Vitamin D 1,25 (OH)2 Total (test code = 52 18-72 Vitamin D 1,25 (OH)2 Total) [facility] CenterJhvweqpAYRAMHCPT8796-64-61 20:32:00 Test Item Value Reference Range Interpretation Comments Vitamin D2 1,25 (OH)2 (test code = no gt Vitamin D2 1,25 (OH)2) [facility] CenterPvpeburYAQFQJNTP7052-91-49 20:32:00 Test Item Value Reference Range Interpretation Comments Vitamin D3 1,25 (OH)2 (test code = 52 Vitamin D3 1,25 (OH)2) [facility]YhsobbtCEMEHKUVZC8516-70-58 20:32:00 Test Item Value Reference Range Interpretation Comments MPV (test code = MPV) 8.7 7.4-10.4 N [facility] CenterViftzgsTXJXHYHWPQ8886-83-80 20:32:00 Test Item Value Reference Range Interpretation Comments Hgb (test code = Hgb) 12.0 12.0-16.0 N [facility] CenterYeczqckAUCODEPIW9684-32-21 20:32:00 Test Item Value Reference Range Interpretation Comments Sodium Lvl (test code = Sodium Lvl) 137 135-145 N [facility] CenterFjugdreGPGQSULHXP1696-17-33 20:32:00 Test Item Value Reference Range Interpretation Comments RBC (test code = RBC) 4.51 4.20-5.40 N [facility] CenterVhmeotrCGSAIOZVZR4821-33-95 20:32:00 Test Item Value Reference Range Interpretation Comments WBC (test code = WBC) 15.6 3.7-10.4 H [facility] CenterMykfddbKDHFDNJTGR8324-82-35 20:32:00 Test Item Value Reference Range Interpretation Comments Hct (test code = Hct) 37.0 36.0-48.0 N [facility] CenterBsizfslXEUQWLEXWC1715-17-31 20:32:00 Test Item Value Reference Range Interpretation Comments MCV (test code = MCV) 82.0 81.0-99.0 N [facility] CenterVqdauqbXTERDAEKLS2642-14-21 20:32:00 Test Item Value Reference Range Interpretation Comments RDW (test code = RDW) 15.9 11.5-14.5 H [facility] CenterPvnvkzdBPXUZOJXXM8157-05-86 20:32:00 Test Item Value Reference Range Interpretation Comments MCHC (test code = MCHC) 32.3 32.0-36.0 N [facility] CenterHoowyxcTYOYVACBJK5677-18-85 20:32:00 Test Item Value Reference Range Interpretation Comments MCH (test code = MCH) 26.5 pg 27.0-31.0 L [facility] CenterPycmtvhEYKHIRXAIU2794-98-17 20:32:00 Test Item Value Reference Range Interpretation Comments Platelet (test code = Platelet) 371 133-450 N [facility] CenterTrcnietPYJBKCQSME3296-57-27 20:32:00 Test Item Value Reference Range Interpretation Comments Polychrom (test code = Slight (11/26/2012 N Polychrom) 14:32:00) [facility] CenterUzchwbwSOAQOTFUOW0251-62-17 20:32:00 Test Item Value Reference Range Interpretation Comments Large Plt (test code = Slight *ABN*(11/26/2012 A Large Plt) 14:32:00) [facility] CenterWjaitchSXVOKIBYM1100-59-73 20:32:00 Test Item Value Reference Range Interpretation Comments Calcium Lvl (test code = Calcium Lvl) 9.1 8.5-10.5 N [facility] CenterLvqwknpRDZUAVQWVS8045-16-20 20:32:00 Test Item Value Reference Range Interpretation Comments Segs (test code = Segs) 73.0 45.0-75.0 N [facility] CenterMqjlqjfMODUVYRQNY5993-01-67 20:32:00 Test Item Value Reference Range Interpretation Comments Eosinophils # (test code 0.2 See_Comment N [A utomated message] The = Eosinophils #) system whic h generated this result tra nsmitted reference range : <=0.5. The reference r megan was not used to int erpret this result as normal/abnormal . [facility] CenterIeymgqcARMITXGEAH1062-61-25 20:32:00 Test Item Value Reference Range Interpretation Comments Basophils # (test code 0.1 See_Comment N [Aut omated message] The = Basophils #) system which generated this result tra nsmitted reference range : <=0.2. The reference r megan was not used to int erpret this result as normal/abnormal . [facility] CenterEoeebfuXYNGMESGKU4172-55-23 20:32:00 Test Item Value Reference Range Interpretation Comments Lymphocytes (test code = Lymphocytes) 21.3 20.0-40.0 N [facility] CenterLtyappnAGNOSLVPLB2235-48-73 20:32:00 Test Item Value Reference Range Interpretation Comments Segs-Bands # (test code = Segs-Bands #) 11.4 1.5-8.1 H [facility] CenterXfqtvtcRWVVMTVDDY9794-87-51 20:32:00 Test Item Value Reference Range Interpretation Comments Eosinophils (test code = 1.1 See_Comment N [A utomated message] The Eosinophils) system which ge nerated this result tra nsmitted reference range : <=4.0. The reference r megan was not used to int erpret this result as normal/abnormal . [facility] CenterYftunymOKXIMUJBFD6566-22-14 20:32:00 Test Item Value Reference Range Interpretation Comments Basophils (test code = 0.5 See_Comment N [Aut omated message] The Basophils) system which ge nerated this result tra nsmitted reference range : <=1.0. The reference r megan was not used to int erpret this result as normal/abnormal . [facility] CenterUskcqfaMFWFTDFGLW4365-42-37 20:32:00 Test Item Value Reference Range Interpretation Comments Monocytes (test code = Monocytes) 4.1 2.0-12.0 N [facility] CenterHetjylxYKEODTKULG3568-54-89 20:32:00 Test Item Value Reference Range Interpretation Comments Lymphocytes # (test code = Lymphocytes 3.3 1.0-5.5 N #) [facility] CenterWskwhtxKUHLYQAZMK3847-34-28 20:32:00 Test Item Value Reference Range Interpretation Comments Monocytes # (test code 0.6 See_Comment N [Aut omated message] The = Monocytes #) system which generated this result tra nsmitted reference range : <=0.8. The reference r megan was not used to int erpret this result as normal/abnormal . [facility]ProfegxNDGTWYVBA7632-42-16 20:32:00 Test Item Value Reference Range Interpretation Comments Creatinine Lvl (test code = Creatinine 0.5 0.5-1.4 N Lvl) [facility] CenterLvsldqmFOBOSDVXWU4953-23-65 20:32:00 Test Item Value Reference Range Interpretation Comments PTT (test code = PTT) 28.5 s 22.9-35.8 N [facility] CenterVoniimlBZVJAITGDV5076-97-80 20:32:00 Test Item Value Reference Range Interpretation Comments PT (test code = PT) 12.9 s 12.0-14.7 N [facility] CenterTpfclcnHHZTMXPJCX1631-34-28 20:32:00 Test Item Value Reference Range Interpretation Comments INR (test code = INR) 0.95 0.85-1.17 N [facility] HospitalYyoaxorIZAZNNDCBI8160-50-31 20:32:00 Test Item Value Reference Range Interpretation Comments UA Urobilinogen (test code *NA*(11/26/2012 0.1-1.0 = UA Urobilinogen) 14:32:00) [facility] HospitalOigxrdlXDVGEGFDSD0240-55-86 20:32:00 Test Item Value Reference Range Interpretation Comments UA Bacteria (test code Occasional /HPF = UA Bacteria) *NA*(11/26/2012 14:32:00) [facility] HospitalXmqncqdLPQDFJQRIM9633-70-74 20:32:00 Test Item Value Reference Range Interpretation Comments UA RBC (test code = 1 See_Comment N [Automa ashanti message] The UA RBC) system which ge nerated this result transmit ashanti reference range : <=2. The reference range was not used to interpr et this result as carmen l/abnormal. [facility] CenterQsybjnmXAVQQQHKOO1135-62-58 20:32:00 Test Item Value Reference Range Interpretation Comments UA WBC (test code = 3 See_Comment N [Automa ashanti message] The UA WBC) system which ge nerated this result transmit ashanti reference range : <=5. The reference range was not used to interpr et this result as carmen l/abnormal. [facility] HospitalZkqijhpSTZBIGTEUO8198-95-34 20:32:00 Test Item Value Reference Range Interpretation Comments UA Sq Epi (test code = Many /LPF A UA Sq Epi) *ABN*(11/26/2012 14:32:00) [facility] HospitalQmylyfiQKFOREEQKI3672-08-84 20:32:00 Test Item Value Reference Range Interpretation Comments Micro? (test code = Performed *NA*(11/26/2012 Micro?) 14:32:00) [facility] CenterFktkzhfNKQPMYZNYD1130-65-56 20:32:00 Test Item Value Reference Range Interpretation Comments UA Mucus (test code = Few /LPF UA Mucus) *NA*(11/26/2012 14:32:00) [facility] HospitalZzspmadJYLQKEERK5607-04-01 20:32:00 Test Item Value Reference Range Interpretation Comments Glucose Lvl (test code = Glucose Lvl) 81 70-99 N [facility] CenterXcadapiSIEXONRPMP9526-90-47 20:32:00 Test Item Value Reference Range Interpretation Comments UA Bili (test code = Negative *NA*(11/26/2012 UA Bili) 14:32:00) [facility] HospitalDeczorwBBFCWFUCLO5938-29-86 20:32:00 Test Item Value Reference Range Interpretation Comments UA Ketones (test code Negative mg/dL = UA Ketones) *NA*(11/26/2012 14:32:00) [facility] HospitalLtkfytwUPHWPVVUNB9012-95-44 20:32:00 Test Item Value Reference Range Interpretation Comments UA Protein (test code Negative mg/dL N = UA Protein) (11/26/2012 14:32:00) [facility]ElkkhmyKSQHDYUVPK6500-99-96 20:32:00 Test Item Value Reference Range Interpretation Comments UA Leuk Est (test code Trace *ABN*(11/26/2012 A = UA Leuk Est) 14:32:00) [facility] HospitalEyzmnieRUQCBBBAVC1587-93-58 20:32:00 Test Item Value Reference Range Interpretation Comments UA Nitrite (test code Negative (11/26/2012 N = UA Nitrite) 14:32:00) [facility] HospitalFuapnuyKZTZIQYLLC8466-16-93 20:32:00 Test Item Value Reference Range Interpretation Comments UA Blood (test code = Negative (11/26/2012 N UA Blood) 14:32:00) [facility] HospitalKdsdeuvGZHLYYERTV1529-19-22 20:32:00 Test Item Value Reference Range Interpretation Comments UA Color (test code = Yellow *NA*(11/26/2012 UA Color) 14:32:00) [facility] HospitalIxdswzpZSTLXYHLOC3180-46-06 20:32:00 Test Item Value Reference Range Interpretation Comments UA pH (test code = UA pH) 6.0 5.0-8.0 N [facility] HospitalVbrhimlHVAVWPBGVY5809-72-56 20:32:00 Test Item Value Reference Range Interpretation Comments UA Spec Grav (test code = UA Spec Grav) 1.016 N [facility] HospitalPvwfmhfFPTAJXFBXJ9951-57-00 20:32:00 Test Item Value Reference Range Interpretation Comments UA Turbidity (test code Slight A = UA Turbidity) *ABN*(11/26/2012 14:32:00) [facility] CenterPnylfugNNLZQJEFW8718-17-84 20:32:00 Test Item Value Reference Range Interpretation Comments BUN (test code = BUN) 9 7-22 N [facility] HospitalVftfbcfWEIPWBJENU1353-13-52 20:32:00 Test Item Value Reference Range Interpretation Comments UA Glucose (test code Negative mg/dL = UA Glucose) *NA*(11/26/2012 14:32:00) [facility] CenterZvfevzxJRYECFDSW4615-73-37 20:32:00 Test Item Value Reference Range Interpretation Comments Vitamin D 1,25 (OH)2 Total (test code = 52 18-72 Vitamin D 1,25 (OH)2 Total) [facility] CenterAtexciuOWSIHMYXU2315-24-35 20:32:00 Test Item Value Reference Range Interpretation Comments Vitamin D2 1,25 (OH)2 (test code = no gt Vitamin D2 1,25 (OH)2) [facility] CenterRugddmrMPVSZDWYQ8666-94-89 20:32:00 Test Item Value Reference Range Interpretation Comments Vitamin D3 1,25 (OH)2 (test code = 52 Vitamin D3 1,25 (OH)2) [facility] CenterLswxsoyYZAXEBAKAE2589-60-93 20:32:00 Test Item Value Reference Range Interpretation Comments MPV (test code = MPV) 8.7 7.4-10.4 N [facility] CenterSdtzxusYLQDGDATZC0919-51-88 20:32:00 Test Item Value Reference Range Interpretation Comments Hgb (test code = Hgb) 12.0 12.0-16.0 N [facility] CenterEcbpqtcTKFCRAVVZU7177-94-70 20:32:00 Test Item Value Reference Range Interpretation Comments RBC (test code = RBC) 4.51 4.20-5.40 N [facility] CenterWbucospEXRFLDTLDA6538-62-52 20:32:00 Test Item Value Reference Range Interpretation Comments WBC (test code = WBC) 15.6 3.7-10.4 H [facility] CenterEhcpuzzHFUOXPSWFW7889-03-89 20:32:00 Test Item Value Reference Range Interpretation Comments Hct (test code = Hct) 37.0 36.0-48.0 N [facility] CenterTtwlpamHFDFBTXZND5419-42-51 20:32:00 Test Item Value Reference Range Interpretation Comments MCV (test code = MCV) 82.0 81.0-99.0 N [facility] CenterLyonyjdHZUDKSHLSW2761-46-09 20:32:00 Test Item Value Reference Range Interpretation Comments RDW (test code = RDW) 15.9 11.5-14.5 H [facility] CenterMfdsmjmZTMVKLZWQ8247-62-84 20:32:00 Test Item Value Reference Range Interpretation Comments A/G Ratio (test code = A/G Ratio) 0.9 0.7-1.6 N [facility] CenterUlfktftECXAYGZWD0810-21-69 20:32:00 Test Item Value Reference Range Interpretation Comments Globulin (test code = Globulin) 4.4 2.0-4.0 H [facility] CenterIpeazanVOFRGOJPDH9421-22-70 20:32:00 Test Item Value Reference Range Interpretation Comments MCHC (test code = MCHC) 32.3 32.0-36.0 N [place] [address]-02-21 20:32:00 Test Item Value Reference Range Interpretation Comments AGAP (test code = AGAP) 13.0 10.0-20.0 N [facility] CenterFjsufmnNZWWPWMVM4613-79-48 20:32:00 Test Item Value Reference Range Interpretation Comments B/C Ratio (test code = B/C Ratio) 18 6-25 N [facility] CenterBlpilxpTNNZIFUYY1059-31-93 20:32:00 Test Item Value Reference Range Interpretation Comments AST (test code = AST) 24 See_Comment N [Auto mated message] The system which ge nerated this result transmit ashanti reference range : <=37. The reference range was not used to interpr et this result as carmen l/abnormal. [facility] CenterZxpjqwjPLIHJBNGV7010-38-01 20:32:00 Test Item Value Reference Range Interpretation Comments Bili Total (test code = Bili Total) 0.5 0.2-1.3 N [facility] CenterGgmcbgxADNMEVLXH4768-88-23 20:32:00 Test Item Value Reference Range Interpretation Comments Alk Phos (test code = Alk Phos) 98 39-136 N [facility] CenterUirbannZPUKVFSYT0057-79-35 20:32:00 Test Item Value Reference Range Interpretation Comments ALT (test code = ALT) 37 See_Comment N [Auto mated message] The system which ge nerated this result transmit ashanti reference range : <=65. The reference range was not used to interpr et this result as carmen l/abnormal. [facility] CenterFqmjpgvSEWMCYOZN2390-78-78 20:32:00 Test Item Value Reference Range Interpretation Comments Total Protein (test code = Total 8.5 6.4-8.4 H Protein) [facility] CenterTsswbaoMFKPDWWGD9293-59-79 20:32:00 Test Item Value Reference Range Interpretation Comments eGFR (test code = eGFR) 128 [facility] CenterOunwhpnPTAGYTASO7587-64-69 20:32:00 Test Item Value Reference Range Interpretation Comments Albumin Lvl (test code = Albumin Lvl) 4.1 3.5-5.0 N [facility] CenterUhslskfTBVFRUUZJ4520-88-66 20:32:00 Test Item Value Reference Range Interpretation Comments Chloride Lvl (test code = Chloride Lvl) 100 95-109 N [facility] CenterMehhtzhVKHHZXSGKG9301-50-93 20:32:00 Test Item Value Reference Range Interpretation Comments MCH (test code = MCH) 26.5 pg 27.0-31.0 L [facility] CenterCxjzxkfTSCENCQKK1936-27-66 20:32:00 Test Item Value Reference Range Interpretation Comments Potassium Lvl (test code = Potassium 4.0 3.5-5.1 N Lvl) [facility] CenterEzumiqgSMFURSTAS4296-03-62 20:32:00 Test Item Value Reference Range Interpretation Comments CO2 (test code = CO2) 28 24-32 N [facility] CenterUlfyaocFQNMANBIO0139-64-59 20:32:00 Test Item Value Reference Range Interpretation Comments Sodium Lvl (test code = Sodium Lvl) 137 135-145 N [facility] CenterOfnjsvgPSMPDUVWL0461-54-16 20:32:00 Test Item Value Reference Range Interpretation Comments Calcium Lvl (test code = Calcium Lvl) 9.1 8.5-10.5 N [facility] CenterDuqxkvfYNIKZEFEP8714-98-22 20:32:00 Test Item Value Reference Range Interpretation Comments Creatinine Lvl (test code = Creatinine 0.5 0.5-1.4 N Lvl) [facility] CenterEruyvxkHVIOYYIYK6202-73-35 20:32:00 Test Item Value Reference Range Interpretation Comments Glucose Lvl (test code = Glucose Lvl) 81 70-99 N [facility] CenterHpeihatWEDOWKWAD5916-42-91 20:32:00 Test Item Value Reference Range Interpretation Comments BUN (test code = BUN) 9 7-22 N [facility] CenterRplloeeLLBGIBNOG1127-67-47 20:32:00 Test Item Value Reference Range Interpretation Comments Vitamin D 1,25 (OH)2 Total (test code = 52 18-72 Vitamin D 1,25 (OH)2 Total) [facility] CenterJtbpeahODNDCKPTA3836-54-88 20:32:00 Test Item Value Reference Range Interpretation Comments Vitamin D2 1,25 (OH)2 (test code = no gt Vitamin D2 1,25 (OH)2) [facility] CenterVejzpesRKKWTCKHU7863-53-79 20:32:00 Test Item Value Reference Range Interpretation Comments Vitamin D3 1,25 (OH)2 (test code = 52 Vitamin D3 1,25 (OH)2) [facility] CenterDrlpzopWXJNPNMNIX8279-92-86 20:32:00 Test Item Value Reference Range Interpretation Comments Platelet (test code = Platelet) 371 133-450 N [facility] CenterQgjkpglFPNZTJSHBD5901-39-54 20:32:00 Test Item Value Reference Range Interpretation Comments MPV (test code = MPV) 8.7 7.4-10.4 N [facility] CenterSbfmjphWRDVGDMVEF1635-92-58 20:32:00 Test Item Value Reference Range Interpretation Comments Hgb (test code = Hgb) 12.0 12.0-16.0 N [facility] CenterLlihwvfROIIWEMWGZ1582-21-14 20:32:00 Test Item Value Reference Range Interpretation Comments RBC (test code = RBC) 4.51 4.20-5.40 N [facility] CenterMaitffvAXAWXAFKVJ1350-55-40 20:32:00 Test Item Value Reference Range Interpretation Comments WBC (test code = WBC) 15.6 3.7-10.4 H [facility] CenterMsaudfhEJHAEJBBKA4011-69-79 20:32:00 Test Item Value Reference Range Interpretation Comments Hct (test code = Hct) 37.0 36.0-48.0 N [facility] CenterNtqsdohWNNEXITTFB0438-28-62 20:32:00 Test Item Value Reference Range Interpretation Comments MCV (test code = MCV) 82.0 81.0-99.0 N [facility] CenterDigtbzrWURKHLWELV8445-83-87 20:32:00 Test Item Value Reference Range Interpretation Comments RDW (test code = RDW) 15.9 11.5-14.5 H [facility] CenterOgzepqbDAPMCKSPBQ2800-99-16 20:32:00 Test Item Value Reference Range Interpretation Comments MCHC (test code = MCHC) 32.3 32.0-36.0 N [facility] CenterZmqqkqcTIINPCMKCZ3667-84-68 20:32:00 Test Item Value Reference Range Interpretation Comments MCH (test code = MCH) 26.5 pg 27.0-31.0 L [facility] CenterOblihzkCPYSLBPWGJ3996-97-86 20:32:00 Test Item Value Reference Range Interpretation Comments Platelet (test code = Platelet) 371 133-450 N [facility] CenterYbddjjpKRNBDUSGVS2870-35-64 20:32:00 Test Item Value Reference Range Interpretation Comments Polychrom (test code = Slight (11/26/2012 N Polychrom) 14:32:00) [facility] CenterPeoomecQUFSFMMUPC8178-14-67 20:32:00 Test Item Value Reference Range Interpretation Comments Polychrom (test code = Slight (11/26/2012 N Polychrom) 14:32:00) [facility] CenterOmtfideGRUNIDPOKD5332-91-70 20:32:00 Test Item Value Reference Range Interpretation Comments Large Plt (test code = Slight *ABN*(11/26/2012 A Large Plt) 14:32:00) [facility] CenterPiczyqaUITWLKZLRX5224-41-82 20:32:00 Test Item Value Reference Range Interpretation Comments Segs (test code = Segs) 73.0 45.0-75.0 N [facility] CenterQxcsgreCUURXSRJVG9030-96-32 20:32:00 Test Item Value Reference Range Interpretation Comments Eosinophils # (test code 0.2 See_Comment N [A utomated message] The = Eosinophils #) system whic h generated this result tra nsmitted reference range : <=0.5. The reference r megan was not used to int erpret this result as normal/abnormal . [facility] CenterLpeftrjWJPLXTZKGR4296-22-44 20:32:00 Test Item Value Reference Range Interpretation Comments Basophils # (test code 0.1 See_Comment N [Aut omated message] The = Basophils #) system which generated this result tra nsmitted reference range : <=0.2. The reference r megan was not used to int erpret this result as normal/abnormal . [facility] CenterJcntyjkHFYWOUYIBS5382-55-29 20:32:00 Test Item Value Reference Range Interpretation Comments Lymphocytes (test code = Lymphocytes) 21.3 20.0-40.0 N [facility] CenterYblsbkpRETUMLQJRU1200-41-35 20:32:00 Test Item Value Reference Range Interpretation Comments Segs-Bands # (test code = Segs-Bands #) 11.4 1.5-8.1 H [facility] CenterRnrdaswTBGEGNSMXK7940-31-47 20:32:00 Test Item Value Reference Range Interpretation Comments Eosinophils (test code = 1.1 See_Comment N [A utomated message] The Eosinophils) system which ge nerated this result tra nsmitted reference range : <=4.0. The reference r megan was not used to int erpret this result as normal/abnormal . [facility] CenterDkgtwovEHOQGPLMBK2554-33-19 20:32:00 Test Item Value Reference Range Interpretation Comments Basophils (test code = 0.5 See_Comment N [Aut omated message] The Basophils) system which ge nerated this result tra nsmitted reference range : <=1.0. The reference r megan was not used to int erpret this result as normal/abnormal . [facility] CenterSjxdwylASKMDUSUDT8707-08-05 20:32:00 Test Item Value Reference Range Interpretation Comments Monocytes (test code = Monocytes) 4.1 2.0-12.0 N [facility] CenterTbaifioWKROWHSJML6936-25-05 20:32:00 Test Item Value Reference Range Interpretation Comments Large Plt (test code = Slight *ABN*(11/26/2012 A Large Plt) 14:32:00) [facility] CenterYcnfprjIOATZRMZJY6382-07-90 20:32:00 Test Item Value Reference Range Interpretation Comments Lymphocytes # (test code = Lymphocytes 3.3 1.0-5.5 N #) [facility] CenterFscyjhgNMKRWISPGW0428-49-85 20:32:00 Test Item Value Reference Range Interpretation Comments Monocytes # (test code 0.6 See_Comment N [Aut omated message] The = Monocytes #) system which generated this result tra nsmitted reference range : <=0.8. The reference r megan was not used to int erpret this result as normal/abnormal . [facility] CenterKhjngawPDIVWKTRDO7255-27-94 20:32:00 Test Item Value Reference Range Interpretation Comments PTT (test code = PTT) 28.5 s 22.9-35.8 N [facility] CenterZqymbvuKDAIDSBAOZ4347-21-98 20:32:00 Test Item Value Reference Range Interpretation Comments PT (test code = PT) 12.9 s 12.0-14.7 N [facility] CenterCftuovrECCJSLVXRN4933-82-19 20:32:00 Test Item Value Reference Range Interpretation Comments INR (test code = INR) 0.95 0.85-1.17 N [facility]GfpgzfjBRHFWZHRIH4989-65-22 20:32:00 Test Item Value Reference Range Interpretation Comments UA Urobilinogen (test code *NA*(11/26/2012 0.1-1.0 = UA Urobilinogen) 14:32:00) [facility]SmptrthBKYXYSIRZE9786-81-41 20:32:00 Test Item Value Reference Range Interpretation Comments UA Bacteria (test code Occasional /HPF = UA Bacteria) *NA*(11/26/2012 14:32:00) [facility]XimeshnLPTCCVIPUW5572-90-40 20:32:00 Test Item Value Reference Range Interpretation Comments UA RBC (test code = 1 See_Comment N [Automa ashanti message] The UA RBC) system which ge nerated this result transmit ashanti reference range : <=2. The reference range was not used to interpr et this result as carmen l/abnormal. [facility]anoEgkvwwiKXZMVAVIWH0207-11-16 20:32:00 Test Item Value Reference Range Interpretation Comments UA WBC (test code = 3 See_Comment N [Automa ashanti message] The UA WBC) system which ge nerated this result transmit ashanti reference range : <=5. The reference range was not used to interpr et this result as carmen l/abnormal. [facility]anoRjnofxzKBAZGBOJBV6321-85-04 20:32:00 Test Item Value Reference Range Interpretation Comments UA Sq Epi (test code = Many /LPF A UA Sq Epi) *ABN*(11/26/2012 14:32:00) [facility] CenterNemrvbmYLOKXKVXEQ5552-61-88 20:32:00 Test Item Value Reference Range Interpretation Comments Segs (test code = Segs) 73.0 45.0-75.0 N [facility] HospitalPprefkgMKKXOLBGIA1283-32-17 20:32:00 Test Item Value Reference Range Interpretation Comments Micro? (test code = Performed *NA*(11/26/2012 Micro?) 14:32:00) [facility]anoFrlaxcsQOJYXTWRKR2138-44-82 20:32:00 Test Item Value Reference Range Interpretation Comments UA Mucus (test code = Few /LPF UA Mucus) *NA*(11/26/2012 14:32:00) [facility]anoExjkdkjZSOQSBCGVQ1754-79-88 20:32:00 Test Item Value Reference Range Interpretation Comments UA Bili (test code = Negative *NA*(11/26/2012 UA Bili) 14:32:00) [facility]anoOvlosirQXUTNYTGHZ0615-52-71 20:32:00 Test Item Value Reference Range Interpretation Comments UA Ketones (test code Negative mg/dL = UA Ketones) *NA*(11/26/2012 14:32:00) [facility]anoFlyotzjMFLAMEIVAT8901-81-29 20:32:00 Test Item Value Reference Range Interpretation Comments UA Protein (test code Negative mg/dL N = UA Protein) (11/26/2012 14:32:00) [facility]anoLqoyiqjDSSLIFCDUW6338-24-07 20:32:00 Test Item Value Reference Range Interpretation Comments UA Leuk Est (test code Trace *ABN*(11/26/2012 A = UA Leuk Est) 14:32:00) [facility] HospitalGesjyhyFAWORGTDYK4945-66-52 20:32:00 Test Item Value Reference Range Interpretation Comments UA Nitrite (test code Negative (11/26/2012 N = UA Nitrite) 14:32:00) [facility] HospitalPbmpelkOIYHUASOZV4838-29-53 20:32:00 Test Item Value Reference Range Interpretation Comments UA Blood (test code = Negative (11/26/2012 N UA Blood) 14:32:00) [facility] HospitalAgkffvxFFKOXSOGQS5533-32-74 20:32:00 Test Item Value Reference Range Interpretation Comments UA Color (test code = Yellow *NA*(11/26/2012 UA Color) 14:32:00) [facility] HospitalPcwwxscVXGJPQHKBN7435-36-81 20:32:00 Test Item Value Reference Range Interpretation Comments UA pH (test code = UA pH) 6.0 5.0-8.0 N [facility] CenterLvbnfnwHYFUXSTBXP6099-89-19 20:32:00 Test Item Value Reference Range Interpretation Comments Eosinophils # (test code 0.2 See_Comment N [A utomated message] The = Eosinophils #) system whic h generated this result tra nsmitted reference range : <=0.5. The reference r megan was not used to int erpret this result as normal/abnormal . [facility] HospitalOlwukxuTNPMPWGCNZ2500-13-13 20:32:00 Test Item Value Reference Range Interpretation Comments UA Spec Grav (test code = UA Spec Grav) 1.016 N [facility] HospitalEboxkjyDFNPUYVZUT1077-26-11 20:32:00 Test Item Value Reference Range Interpretation Comments UA Turbidity (test code Slight A = UA Turbidity) *ABN*(11/26/2012 14:32:00) [facility] HospitalXizxozoFOEWQVNDPW4443-58-66 20:32:00 Test Item Value Reference Range Interpretation Comments UA Glucose (test code Negative mg/dL = UA Glucose) *NA*(11/26/2012 14:32:00) [facility] CenterZaywztxIDOJSTPINQ0853-85-81 20:32:00 Test Item Value Reference Range Interpretation Comments Basophils # (test code 0.1 See_Comment N [Aut omated message] The = Basophils #) system which generated this result tra nsmitted reference range : <=0.2. The reference r megan was not used to int erpret this result as normal/abnormal . [facility] CenterRrdoqweLDKROPLLZP7201-80-72 20:32:00 Test Item Value Reference Range Interpretation Comments Lymphocytes (test code = Lymphocytes) 21.3 20.0-40.0 N [facility] CenterVamzmekUCLTGRQODG7210-25-76 20:32:00 Test Item Value Reference Range Interpretation Comments Segs-Bands # (test code = Segs-Bands #) 11.4 1.5-8.1 H [facility] CenterGknowcwKCPLFJHUGE2504-93-40 20:32:00 Test Item Value Reference Range Interpretation Comments Eosinophils (test code = 1.1 See_Comment N [A utomated message] The Eosinophils) system which ge nerated this result tra nsmitted reference range : <=4.0. The reference r megan was not used to int erpret this result as normal/abnormal . [facility] CenterGsdonlbDPZDFGEXML9743-05-81 20:32:00 Test Item Value Reference Range Interpretation Comments Basophils (test code = 0.5 See_Comment N [Aut omated message] The Basophils) system which ge nerated this result tra nsmitted reference range : <=1.0. The reference r megan was not used to int erpret this result as normal/abnormal . [facility] CenterSlqkmsgJHYTFRRZII9529-95-92 20:32:00 Test Item Value Reference Range Interpretation Comments Monocytes (test code = Monocytes) 4.1 2.0-12.0 N [facility] CenterZshqqzaBVRSBMGKPN5497-20-72 20:32:00 Test Item Value Reference Range Interpretation Comments Lymphocytes # (test code = Lymphocytes 3.3 1.0-5.5 N #) [facility] CenterXwjcejnBONNGVQEEE0580-93-73 20:32:00 Test Item Value Reference Range Interpretation Comments Monocytes # (test code 0.6 See_Comment N [Aut omated message] The = Monocytes #) system which generated this result tra nsmitted reference range : <=0.8. The reference r megan was not used to int erpret this result as normal/abnormal . [facility] CenterAmdlruiDJYXSBNFQV3008-89-09 20:32:00 Test Item Value Reference Range Interpretation Comments PTT (test code = PTT) 28.5 s 22.9-35.8 N [facility] CenterIpdrpanOZCXDWMCFN9329-36-68 20:32:00 Test Item Value Reference Range Interpretation Comments PT (test code = PT) 12.9 s 12.0-14.7 N [facility] CenterBfvnwsdYUACOWPMUL3035-50-31 20:32:00 Test Item Value Reference Range Interpretation Comments INR (test code = INR) 0.95 0.85-1.17 N [facility] CenterTdeaifwKIHJLINEQ6484-92-39 20:32:00 Test Item Value Reference Range Interpretation Comments A/G Ratio (test code = A/G Ratio) 0.9 0.7-1.6 N [facility] CenterSrvhvxlVDIRUEUKE2260-23-42 20:32:00 Test Item Value Reference Range Interpretation Comments Globulin (test code = Globulin) 4.4 2.0-4.0 H [facility] CenterAlieyacPIIZVDRUV6557-55-46 20:32:00 Test Item Value Reference Range Interpretation Comments AGAP (test code = AGAP) 13.0 10.0-20.0 N [facility] CenterXnifimoTTCJRBYTB0270-17-85 20:32:00 Test Item Value Reference Range Interpretation Comments B/C Ratio (test code = B/C Ratio) 18 6-25 N [facility] CenterJabbjoxJXBXVKVVG9251-25-48 20:32:00 Test Item Value Reference Range Interpretation Comments AST (test code = AST) 24 See_Comment N [Auto mated message] The system which ge nerated this result transmit ashanti reference range : <=37. The reference range was not used to interpr et this result as carmen l/abnormal. [facility] CenterSfgnmpsUBGOKCPTJ0229-51-20 20:32:00 Test Item Value Reference Range Interpretation Comments Bili Total (test code = Bili Total) 0.5 0.2-1.3 N [facility] CenterJzmnnzoBMBUEMYXD0545-54-18 20:32:00 Test Item Value Reference Range Interpretation Comments Alk Phos (test code = Alk Phos) 98 39-136 N [facility] CenterZgnrzeaKVBWHDIFV7379-21-58 20:32:00 Test Item Value Reference Range Interpretation Comments ALT (test code = ALT) 37 See_Comment N [Auto mated message] The system which ge nerated this result transmit ashanti reference range : <=65. The reference range was not used to interpr et this result as carmen l/abnormal. [facility] CenterKjcwhogSQFFTYIBJ3124-64-86 20:32:00 Test Item Value Reference Range Interpretation Comments Total Protein (test code = Total 8.5 6.4-8.4 H Protein) [facility] CenterBpbodlnLCEDZECXQ8135-93-65 20:32:00 Test Item Value Reference Range Interpretation Comments eGFR (test code = eGFR) 128 [facility] HospitalHxevlcgAZMRWQXRCS7081-42-18 20:32:00 Test Item Value Reference Range Interpretation Comments UA Urobilinogen (test code *NA*(11/26/2012 0.1-1.0 = UA Urobilinogen) 14:32:00) [facility] CenterRwtjabeNDSIQOOVS9029-38-03 20:32:00 Test Item Value Reference Range Interpretation Comments Albumin Lvl (test code = Albumin Lvl) 4.1 3.5-5.0 N [facility] CenterAwhxoyfQNLYFTOMP6956-86-62 20:32:00 Test Item Value Reference Range Interpretation Comments Chloride Lvl (test code = Chloride Lvl) 100 95-109 N [facility] CenterZqkmrhnODUVXOFCT8345-89-75 20:32:00 Test Item Value Reference Range Interpretation Comments Potassium Lvl (test code = Potassium 4.0 3.5-5.1 N Lvl) [facility] CenterPtglyquAPTPWOTRV7129-64-24 20:32:00 Test Item Value Reference Range Interpretation Comments CO2 (test code = CO2) 28 24-32 N [facility] CenterRoponheOVNJZSSWG8169-45-27 20:32:00 Test Item Value Reference Range Interpretation Comments Sodium Lvl (test code = Sodium Lvl) 137 135-145 N [facility] CenterUonpyvbPHTLRRWMH5589-82-62 20:32:00 Test Item Value Reference Range Interpretation Comments Calcium Lvl (test code = Calcium Lvl) 9.1 8.5-10.5 N [facility] CenterNtebrkhSLFFIODYE4695-29-50 20:32:00 Test Item Value Reference Range Interpretation Comments Creatinine Lvl (test code = Creatinine 0.5 0.5-1.4 N Lvl) [facility] CenterXxpjtdbSIKMXJMAP2960-28-63 20:32:00 Test Item Value Reference Range Interpretation Comments Glucose Lvl (test code = Glucose Lvl) 81 70-99 N [facility] CenterFjbjgmiZDMRUFQGR4152-48-03 20:32:00 Test Item Value Reference Range Interpretation Comments BUN (test code = BUN) 9 7-22 N [facility] CenterPvcdziiCWIZPSSWV9930-09-40 20:32:00 Test Item Value Reference Range Interpretation Comments Vitamin D 1,25 (OH)2 Total (test code = 52 18-72 Vitamin D 1,25 (OH)2 Total) [facility] HospitalRhvmwmmEFHAOTYMGP5940-46-58 20:32:00 Test Item Value Reference Range Interpretation Comments UA Bacteria (test code Occasional /HPF = UA Bacteria) *NA*(11/26/2012 14:32:00) [facility] CenterHficorwGNHQEEAAN3248-11-38 20:32:00 Test Item Value Reference Range Interpretation Comments Vitamin D2 1,25 (OH)2 (test code = no gt Vitamin D2 1,25 (OH)2) [facility] CenterYrjqsngJYVQSPDWL2056-82-28 20:32:00 Test Item Value Reference Range Interpretation Comments Vitamin D3 1,25 (OH)2 (test code = 52 Vitamin D3 1,25 (OH)2) [facility] CenterBvkfluoRUQTHZDAJI8356-85-70 20:32:00 Test Item Value Reference Range Interpretation Comments MPV (test code = MPV) 8.7 7.4-10.4 N [facility] CenterLunxmtlXCCWZRUXPB2724-62-47 20:32:00 Test Item Value Reference Range Interpretation Comments Hgb (test code = Hgb) 12.0 12.0-16.0 N [facility] CenterBnkmildKUUKOWOZMV2381-36-95 20:32:00 Test Item Value Reference Range Interpretation Comments RBC (test code = RBC) 4.51 4.20-5.40 N [facility] CenterIkwlfhlCXVZPIVDFX4504-38-40 20:32:00 Test Item Value Reference Range Interpretation Comments WBC (test code = WBC) 15.6 3.7-10.4 H [facility] CenterUgwnummSDXFSTYJZF0658-50-21 20:32:00 Test Item Value Reference Range Interpretation Comments Hct (test code = Hct) 37.0 36.0-48.0 N [facility] CenterIhuzcxrXCJYQNEIZE5826-52-83 20:32:00 Test Item Value Reference Range Interpretation Comments MCV (test code = MCV) 82.0 81.0-99.0 N [facility] CenterWfsyndhFKLYSYRTUM9193-73-14 20:32:00 Test Item Value Reference Range Interpretation Comments RDW (test code = RDW) 15.9 11.5-14.5 H [facility] CenterBiakmllNZGKOERBGK3699-71-22 20:32:00 Test Item Value Reference Range Interpretation Comments MCHC (test code = MCHC) 32.3 32.0-36.0 N [facility]WgsagdqZWDVGAWWOW6791-97-22 20:32:00 Test Item Value Reference Range Interpretation Comments UA RBC (test code = 1 See_Comment N [Automa ashanti message] The UA RBC) system which ge nerated this result transmit ashanti reference range : <=2. The reference range was not used to interpr et this result as carmen l/abnormal. [facility] CenterWcoindvHHVAYQEUZA7997-70-05 20:32:00 Test Item Value Reference Range Interpretation Comments MCH (test code = MCH) 26.5 pg 27.0-31.0 L [facility] CenterUcmvuhiITIJVORJNA2232-16-37 20:32:00 Test Item Value Reference Range Interpretation Comments Platelet (test code = Platelet) 371 133-450 N [facility] CenterHobtchsBOZYPLYMJK4263-87-02 20:32:00 Test Item Value Reference Range Interpretation Comments Polychrom (test code = Slight (11/26/2012 N Polychrom) 14:32:00) [facility] CenterHuxslmjPQMOJFEHDO2271-05-91 20:32:00 Test Item Value Reference Range Interpretation Comments Large Plt (test code = Slight *ABN*(11/26/2012 A Large Plt) 14:32:00) [facility] CenterDdfhuyhNBWDWVBZLM3450-19-44 20:32:00 Test Item Value Reference Range Interpretation Comments Segs (test code = Segs) 73.0 45.0-75.0 N [facility] CenterIrzksmvVOLULIQVGH2964-81-78 20:32:00 Test Item Value Reference Range Interpretation Comments Eosinophils # (test code 0.2 See_Comment N [A utomated message] The = Eosinophils #) system whic h generated this result tra nsmitted reference range : <=0.5. The reference r megan was not used to int erpret this result as normal/abnormal . [facility] CenterNmogpijPZKHPEVZMS7060-27-79 20:32:00 Test Item Value Reference Range Interpretation Comments Basophils # (test code 0.1 See_Comment N [Aut omated message] The = Basophils #) system which generated this result tra nsmitted reference range : <=0.2. The reference r megan was not used to int erpret this result as normal/abnormal . [facility] CenterTovjszwGEGXSTQRFP5739-35-52 20:32:00 Test Item Value Reference Range Interpretation Comments Lymphocytes (test code = Lymphocytes) 21.3 20.0-40.0 N [facility] CenterZwtsbfsQQYLVPOSMI2863-62-98 20:32:00 Test Item Value Reference Range Interpretation Comments Segs-Bands # (test code = Segs-Bands #) 11.4 1.5-8.1 H [facility] CenterDvasrfuYRAPGFLNIK9561-29-90 20:32:00 Test Item Value Reference Range Interpretation Comments Eosinophils (test code = 1.1 See_Comment N [A utomated message] The Eosinophils) system which ge nerated this result tra nsmitted reference range : <=4.0. The reference r megan was not used to int erpret this result as normal/abnormal . [facility] HospitalXoqkybnEOWWFMPCID2631-89-13 20:32:00 Test Item Value Reference Range Interpretation Comments UA WBC (test code = 3 See_Comment N [Automa ashanti message] The UA WBC) system which ge nerated this result transmit ashanti reference range : <=5. The reference range was not used to interpr et this result as carmen l/abnormal. [facility] CenterOjbnhruUMONXEVIGZ2952-30-66 20:32:00 Test Item Value Reference Range Interpretation Comments Basophils (test code = 0.5 See_Comment N [Aut omated message] The Basophils) system which ge nerated this result tra nsmitted reference range : <=1.0. The reference r megan was not used to int erpret this result as normal/abnormal . [facility] CenterYejushyYTKDPDKHOY6867-48-54 20:32:00 Test Item Value Reference Range Interpretation Comments Monocytes (test code = Monocytes) 4.1 2.0-12.0 N [facility] CenterDtsqoteFDMIWAAAZP5250-15-12 20:32:00 Test Item Value Reference Range Interpretation Comments Lymphocytes # (test code = Lymphocytes 3.3 1.0-5.5 N #) [facility] CenterSrgyjdcMUYGFQGKZH3567-35-16 20:32:00 Test Item Value Reference Range Interpretation Comments Monocytes # (test code 0.6 See_Comment N [Aut omated message] The = Monocytes #) system which generated this result tra nsmitted reference range : <=0.8. The reference r megan was not used to int erpret this result as normal/abnormal . [facility] CenterCmrgqocPICXXIFFZK3220-57-44 20:32:00 Test Item Value Reference Range Interpretation Comments PTT (test code = PTT) 28.5 s 22.9-35.8 N [facility] CenterJknlbkvYNNXSUAKHT5696-51-60 20:32:00 Test Item Value Reference Range Interpretation Comments PT (test code = PT) 12.9 s 12.0-14.7 N [facility] CenterBfanjebPRAGMAWHTZ5356-85-35 20:32:00 Test Item Value Reference Range Interpretation Comments INR (test code = INR) 0.95 0.85-1.17 N [facility]SmaczvzXLNRRJMCVS6275-73-67 20:32:00 Test Item Value Reference Range Interpretation Comments UA Urobilinogen (test code *NA*(11/26/2012 0.1-1.0 = UA Urobilinogen) 14:32:00) [facility]NxhxbnjAPIFIOYYCT2249-21-76 20:32:00 Test Item Value Reference Range Interpretation Comments UA Bacteria (test code Occasional /HPF = UA Bacteria) *NA*(11/26/2012 14:32:00) [facility] HospitalVgmmdlbDZJTNIMIVY3634-38-92 20:32:00 Test Item Value Reference Range Interpretation Comments UA RBC (test code = 1 See_Comment N [Automa ashanti message] The UA RBC) system which ge nerated this result transmit ashanti reference range : <=2. The reference range was not used to interpr et this result as carmen l/abnormal. [facility]anoHvqqphwDHRFAUFMFK7475-35-32 20:32:00 Test Item Value Reference Range Interpretation Comments UA Sq Epi (test code = Many /LPF A UA Sq Epi) *ABN*(11/26/2012 14:32:00) [facility]anoMkbjfesQOHRGUIXSD7244-84-11 20:32:00 Test Item Value Reference Range Interpretation Comments UA WBC (test code = 3 See_Comment N [Automa ashanti message] The UA WBC) system which ge nerated this result transmit ashanti reference range : <=5. The reference range was not used to interpr et this result as carmen l/abnormal. [facility]anoLvsdkajSMQWYDJQXT8543-88-36 20:32:00 Test Item Value Reference Range Interpretation Comments UA Sq Epi (test code = Many /LPF A UA Sq Epi) *ABN*(11/26/2012 14:32:00) [facility]anoCqhkxavNYSTEPHBRS9686-49-92 20:32:00 Test Item Value Reference Range Interpretation Comments Micro? (test code = Performed *NA*(11/26/2012 Micro?) 14:32:00) [facility]anoKmygqtlTXHNGCBDCW3741-82-35 20:32:00 Test Item Value Reference Range Interpretation Comments UA Mucus (test code = Few /LPF UA Mucus) *NA*(11/26/2012 14:32:00) [facility] HospitalUjuafbcBJYKPEOWUX4219-68-58 20:32:00 Test Item Value Reference Range Interpretation Comments UA Bili (test code = Negative *NA*(11/26/2012 UA Bili) 14:32:00) [facility]anoNzwobkhMAWTMYBFFE7625-33-28 20:32:00 Test Item Value Reference Range Interpretation Comments UA Ketones (test code Negative mg/dL = UA Ketones) *NA*(11/26/2012 14:32:00) [facility] HospitalWbxhgdqKICLVFMSKA8112-18-23 20:32:00 Test Item Value Reference Range Interpretation Comments UA Protein (test code Negative mg/dL N = UA Protein) (11/26/2012 14:32:00) [facility] HospitalWdeqoptMOWHUWOICO4285-69-80 20:32:00 Test Item Value Reference Range Interpretation Comments UA Leuk Est (test code Trace *ABN*(11/26/2012 A = UA Leuk Est) 14:32:00) [facility] HospitalXheyngjKXYCTNIXRA7118-64-74 20:32:00 Test Item Value Reference Range Interpretation Comments UA Nitrite (test code Negative (11/26/2012 N = UA Nitrite) 14:32:00) [facility] HospitalYjsufaqWTQSXDGMJZ9474-17-68 20:32:00 Test Item Value Reference Range Interpretation Comments UA Blood (test code = Negative (11/26/2012 N UA Blood) 14:32:00) [facility]anoOfyajqwOGSRKQUDTH5916-50-44 20:32:00 Test Item Value Reference Range Interpretation Comments Micro? (test code = Performed *NA*(11/26/2012 Micro?) 14:32:00) [facility] HospitalUdtncjuZMQNPDTOJU7577-39-51 20:32:00 Test Item Value Reference Range Interpretation Comments UA Color (test code = Yellow *NA*(11/26/2012 UA Color) 14:32:00) [facility]anoYesqxpcUXWJPJHZKT8229-72-02 20:32:00 Test Item Value Reference Range Interpretation Comments UA pH (test code = UA pH) 6.0 5.0-8.0 [facility]UqbwpvhAUHCBRLGLN7586-07-37 20:32:00 Test Item Value Reference Range Interpretation Comments UA Spec Grav (test code = UA Spec Grav) 1.016 N [facility] HospitalSbrvkmwBMROIYKUFC8797-45-44 20:32:00 Test Item Value Reference Range Interpretation Comments UA Turbidity (test code Slight A = UA Turbidity) *ABN*(11/26/2012 14:32:00) [facility]LfwgoqdZEUODOOYLI6552-58-12 20:32:00 Test Item Value Reference Range Interpretation Comments UA Glucose (test code Negative mg/dL = UA Glucose) *NA*(11/26/2012 14:32:00) [facility] HospitalSvlblbjVZXRLHZFHE3248-70-50 20:32:00 Test Item Value Reference Range Interpretation Comments UA Mucus (test code = Few /LPF UA Mucus) *NA*(11/26/2012 14:32:00) [facility] HospitalXcijngnUOEJTSAHDR5156-17-87 20:32:00 Test Item Value Reference Range Interpretation Comments UA Bili (test code = Negative *NA*(11/26/2012 UA Bili) 14:32:00) [facility] HospitalHiatdrwKXANNYGNHJ3348-85-51 20:32:00 Test Item Value Reference Range Interpretation Comments UA Ketones (test code Negative mg/dL = UA Ketones) *NA*(11/26/2012 14:32:00) [facility] HospitalQrfgpntNHWMJJVQYC8387-56-98 20:32:00 Test Item Value Reference Range Interpretation Comments UA Protein (test code Negative mg/dL N = UA Protein) (11/26/2012 14:32:00) [facility] HospitalXqedgloRZWLUTTFSM4164-44-65 20:32:00 Test Item Value Reference Range Interpretation Comments UA Leuk Est (test code Trace *ABN*(11/26/2012 A = UA Leuk Est) 14:32:00) [facility] HospitalLxfqkezRJQVHVLBNO1113-69-30 20:32:00 Test Item Value Reference Range Interpretation Comments UA Nitrite (test code Negative (11/26/2012 N = UA Nitrite) 14:32:00) [facility] HospitalCeitpkzSVDILKEYRD8955-90-43 20:32:00 Test Item Value Reference Range Interpretation Comments UA Blood (test code = Negative (11/26/2012 N UA Blood) 14:32:00) [facility] HospitalHxxsgcuDGLLUJZFFE3421-57-14 20:32:00 Test Item Value Reference Range Interpretation Comments UA Color (test code = Yellow *NA*(11/26/2012 UA Color) 14:32:00) [facility] HospitalMcrhzgyCZBHNMRMJG7112-36-11 20:32:00 Test Item Value Reference Range Interpretation Comments UA pH (test code = UA pH) 6.0 5.0-8.0 N [facility] HospitalZyoelgbYUZYTPQAKR1934-85-40 20:32:00 Test Item Value Reference Range Interpretation Comments UA Spec Grav (test code = UA Spec Grav) 1.016 N [facility] HospitalSpudychZZGIRDHAHE5921-83-88 20:32:00 Test Item Value Reference Range Interpretation Comments UA Turbidity (test code Slight A = UA Turbidity) *ABN*(11/26/2012 14:32:00) [facility] CenterBayymkqXFQPZDISP5784-25-19 20:32:00 Test Item Value Reference Range Interpretation Comments A/G Ratio (test code = A/G Ratio) 0.9 0.7-1.6 N [facility] CenterNolnovqKCVYUJTGY8205-02-66 20:32:00 Test Item Value Reference Range Interpretation Comments Globulin (test code = Globulin) 4.4 2.0-4.0 H [facility] CenterWfkximfAESQDZZRH5978-37-57 20:32:00 Test Item Value Reference Range Interpretation Comments AGAP (test code = AGAP) 13.0 10.0-20.0 N [facility] CenterOjbcvjtVXXERIDTP6773-57-19 20:32:00 Test Item Value Reference Range Interpretation Comments B/C Ratio (test code = B/C Ratio) 18 6-25 N [facility] CenterBbzippyEJOALHQNU2073-26-81 20:32:00 Test Item Value Reference Range Interpretation Comments AST (test code = AST) 24 See_Comment N [Auto mated message] The system which ge nerated this result transmit ashanti reference range : <=37. The reference range was not used to interpr et this result as carmen l/abnormal. [facility] CenterXerqfztVNPZFFQUC6355-47-62 20:32:00 Test Item Value Reference Range Interpretation Comments Bili Total (test code = Bili Total) 0.5 0.2-1.3 N [facility] CenterLnnhvypEMFSEXVBC5364-37-34 20:32:00 Test Item Value Reference Range Interpretation Comments Alk Phos (test code = Alk Phos) 98 39-136 N [facility] CenterLadewqhDAKCERWMK1605-21-40 20:32:00 Test Item Value Reference Range Interpretation Comments ALT (test code = ALT) 37 See_Comment N [Auto mated message] The system which ge nerated this result transmit ashanti reference range : <=65. The reference range was not used to interpr et this result as carmen l/abnormal. [facility]WiyykhdYLWKCDIDZC2152-07-06 20:32:00 Test Item Value Reference Range Interpretation Comments UA Glucose (test code Negative mg/dL = UA Glucose) *NA*(11/26/2012 14:32:00) [facility] CenterIzwxpflLTJCUYTNE4133-83-75 20:32:00 Test Item Value Reference Range Interpretation Comments Total Protein (test code = Total 8.5 6.4-8.4 H Protein) [facility] CenterLmcageoNNHLPVOBH1965-95-30 20:32:00 Test Item Value Reference Range Interpretation Comments eGFR (test code = eGFR) 128 [facility] CenterIixewjvPZVDIUKEV9658-41-50 20:32:00 Test Item Value Reference Range Interpretation Comments Albumin Lvl (test code = Albumin Lvl) 4.1 3.5-5.0 N [facility] CenterSfzagtjFVGMLLWGM2643-18-91 20:32:00 Test Item Value Reference Range Interpretation Comments Chloride Lvl (test code = Chloride Lvl) 100 95-109 N [facility] CenterAmakmlwQRSHWFMTP2314-93-91 20:32:00 Test Item Value Reference Range Interpretation Comments Potassium Lvl (test code = Potassium 4.0 3.5-5.1 N Lvl) [facility] CenterCjsnqnoNDCERSFFS9256-95-68 20:32:00 Test Item Value Reference Range Interpretation Comments CO2 (test code = CO2) 28 24-32 N [facility] CenterMaeojycTYHSFKPFN9438-97-65 20:32:00 Test Item Value Reference Range Interpretation Comments Sodium Lvl (test code = Sodium Lvl) 137 135-145 N [facility] CenterBsissefCRTQKTKPJ7955-32-48 20:32:00 Test Item Value Reference Range Interpretation Comments Calcium Lvl (test code = Calcium Lvl) 9.1 8.5-10.5 N [facility] CenterGmrgdwvQXNGOZTHR8549-67-44 20:32:00 Test Item Value Reference Range Interpretation Comments Creatinine Lvl (test code = Creatinine 0.5 0.5-1.4 N Lvl) [facility] CenterZzxjztgITVQLSNQD5961-11-24 20:32:00 Test Item Value Reference Range Interpretation Comments Glucose Lvl (test code = Glucose Lvl) 81 70-99 N [facility] CenterUfcyhyhKEFAAMWMW5244-87-44 20:32:00 Test Item Value Reference Range Interpretation Comments BUN (test code = BUN) 9 7-22 N [facility] CenterZykswrhQDUREITKB2739-25-85 20:32:00 Test Item Value Reference Range Interpretation Comments Vitamin D 1,25 (OH)2 Total (test code = 52 18-72 Vitamin D 1,25 (OH)2 Total) [facility] CenterPsykeywWQOGBOMZK2775-95-46 20:32:00 Test Item Value Reference Range Interpretation Comments Vitamin D2 1,25 (OH)2 (test code = no gt Vitamin D2 1,25 (OH)2) [facility] CenterRgwscsjZFPRZGDTU9720-72-91 20:32:00 Test Item Value Reference Range Interpretation Comments Vitamin D3 1,25 (OH)2 (test code = 52 Vitamin D3 1,25 (OH)2) [facility]KbbfwswRUIOPIAGLX6494-18-36 20:32:00 Test Item Value Reference Range Interpretation Comments MPV (test code = MPV) 8.7 7.4-10.4 N [facility] CenterLsmiwzaSJIAAWFALR6316-89-10 20:32:00 Test Item Value Reference Range Interpretation Comments Hgb (test code = Hgb) 12.0 12.0-16.0 N [facility] CenterLyycfocWMGQVEZZST9483-34-34 20:32:00 Test Item Value Reference Range Interpretation Comments RBC (test code = RBC) 4.51 4.20-5.40 N [facility] CenterUyiynytHNVPPBJUGV5388-05-04 20:32:00 Test Item Value Reference Range Interpretation Comments WBC (test code = WBC) 15.6 3.7-10.4 H [facility] CenterEfhfmivWRHDWTGHUN0753-17-42 20:32:00 Test Item Value Reference Range Interpretation Comments Hct (test code = Hct) 37.0 36.0-48.0 N [place] [address]-02-21 20:32:00 Test Item Value Reference Range Interpretation Comments MCV (test code = MCV) 82.0 81.0-99.0 N [facility] CenterOmigiriGMKDALVMWD5677-77-88 20:32:00 Test Item Value Reference Range Interpretation Comments RDW (test code = RDW) 15.9 11.5-14.5 H [facility] CenterBfsrtkpECNYZNSTQF1539-53-21 20:32:00 Test Item Value Reference Range Interpretation Comments MCHC (test code = MCHC) 32.3 32.0-36.0 N [facility] CenterZwwedyxLOBVKDDSSP6679-57-54 20:32:00 Test Item Value Reference Range Interpretation Comments MCH (test code = MCH) 26.5 pg 27.0-31.0 L [facility] CenterJprsnixKXNKOEPEAW7546-84-73 20:32:00 Test Item Value Reference Range Interpretation Comments Platelet (test code = Platelet) 371 133-450 N [facility] CenterXlszdicFPTGYDIIJO3577-76-22 20:32:00 Test Item Value Reference Range Interpretation Comments Polychrom (test code = Slight (11/26/2012 N Polychrom) 14:32:00) [facility] CenterKpwvrbeBSPJNXXLRY9875-61-70 20:32:00 Test Item Value Reference Range Interpretation Comments Large Plt (test code = Slight *ABN*(11/26/2012 A Large Plt) 14:32:00) [facility] CenterHarivbpRQSRIBJFXI7820-25-77 20:32:00 Test Item Value Reference Range Interpretation Comments Segs (test code = Segs) 73.0 45.0-75.0 N [facility] CenterMnevdixZYMRIDNHRG1511-36-58 20:32:00 Test Item Value Reference Range Interpretation Comments Eosinophils # (test code 0.2 See_Comment N [A utomated message] The = Eosinophils #) system whic h generated this result tra nsmitted reference range : <=0.5. The reference r megan was not used to int erpret this result as normal/abnormal . [facility] CenterSksbpuyHBFGASGOPP4753-39-35 20:32:00 Test Item Value Reference Range Interpretation Comments Basophils # (test code 0.1 See_Comment N [Aut omated message] The = Basophils #) system which generated this result tra nsmitted reference range : <=0.2. The reference r megan was not used to int erpret this result as normal/abnormal . [facility] CenterDsytoyeETXYSJYPHM8858-03-45 20:32:00 Test Item Value Reference Range Interpretation Comments Lymphocytes (test code = Lymphocytes) 21.3 20.0-40.0 N [facility] CenterEiwlsowMJGYPMPATZ6523-80-63 20:32:00 Test Item Value Reference Range Interpretation Comments Segs-Bands # (test code = Segs-Bands #) 11.4 1.5-8.1 H [facility] CenterUflkmpzFVKWEBGQEE5829-92-70 20:32:00 Test Item Value Reference Range Interpretation Comments Eosinophils (test code = 1.1 See_Comment N [A utomated message] The Eosinophils) system which ge nerated this result tra nsmitted reference range : <=4.0. The reference r megan was not used to int erpret this result as normal/abnormal . [facility] CenterNgptaszTSTWURCNMZ5669-95-45 20:32:00 Test Item Value Reference Range Interpretation Comments Basophils (test code = 0.5 See_Comment N [Aut omated message] The Basophils) system which ge nerated this result tra nsmitted reference range : <=1.0. The reference r megan was not used to int erpret this result as normal/abnormal . [facility] CenterHoyctdlRNUNDXXKGV2954-95-14 20:32:00 Test Item Value Reference Range Interpretation Comments Monocytes (test code = Monocytes) 4.1 2.0-12.0 N [facility] CenterPyarkmwMPPQQMWTPF9643-68-66 20:32:00 Test Item Value Reference Range Interpretation Comments Lymphocytes # (test code = Lymphocytes 3.3 1.0-5.5 N #) [facility] CenterAjsmtwaROMUAYKFRJ6934-34-54 20:32:00 Test Item Value Reference Range Interpretation Comments Monocytes # (test code 0.6 See_Comment N [Aut omated message] The = Monocytes #) system which generated this result tra nsmitted reference range : <=0.8. The reference r megan was not used to int erpret this result as normal/abnormal . [facility] CenterYcjgkdeEJXINKTEOM3056-28-62 20:32:00 Test Item Value Reference Range Interpretation Comments PTT (test code = PTT) 28.5 s 22.9-35.8 N [facility] CenterMcvzzzoXOPDKOBODR4346-35-52 20:32:00 Test Item Value Reference Range Interpretation Comments PT (test code = PT) 12.9 s 12.0-14.7 N [facility] CenterGvfgtjmQCBIKYRZAR5853-63-22 20:32:00 Test Item Value Reference Range Interpretation Comments INR (test code = INR) 0.95 0.85-1.17 N [facility] HospitalQrzwtzwQZBBUWUHTY9469-98-23 20:32:00 Test Item Value Reference Range Interpretation Comments UA Urobilinogen (test code *NA*(11/26/2012 0.1-1.0 = UA Urobilinogen) 14:32:00) [facility]CraykysVTFLGMYYCV9124-59-78 20:32:00 Test Item Value Reference Range Interpretation Comments UA Bacteria (test code Occasional /HPF = UA Bacteria) *NA*(11/26/2012 14:32:00) [facility]anoCmvvzkpQHYRJFXCZZ6771-01-64 20:32:00 Test Item Value Reference Range Interpretation Comments UA RBC (test code = 1 See_Comment N [Automa ashanti message] The UA RBC) system which ge nerated this result transmit ashanti reference range : <=2. The reference range was not used to interpr et this result as carmen l/abnormal. [facility]anoJvchjwkDQUJYIOXXE2974-62-89 20:32:00 Test Item Value Reference Range Interpretation Comments UA WBC (test code = 3 See_Comment N [Automa ashanti message] The UA WBC) system which ge nerated this result transmit ashanti reference range : <=5. The reference range was not used to interpr et this result as carmen l/abnormal. [facility] HospitalHthnxnbHMZKYXAOBD4038-82-97 20:32:00 Test Item Value Reference Range Interpretation Comments UA Sq Epi (test code = Many /LPF A UA Sq Epi) *ABN*(11/26/2012 14:32:00) [facility]anoMzbmgjiVYLLIWNWAZ3946-86-89 20:32:00 Test Item Value Reference Range Interpretation Comments Micro? (test code = Performed *NA*(11/26/2012 Micro?) 14:32:00) [facility]anoLscpyomIEQBUUWCOP2724-63-20 20:32:00 Test Item Value Reference Range Interpretation Comments UA Mucus (test code = Few /LPF UA Mucus) *NA*(11/26/2012 14:32:00) [facility]anoVgoyfyhZJDBAXUYTI4531-41-73 20:32:00 Test Item Value Reference Range Interpretation Comments UA Bili (test code = Negative *NA*(11/26/2012 UA Bili) 14:32:00) [facility]anoZyqmpasMVPXNXWFXC1475-62-96 20:32:00 Test Item Value Reference Range Interpretation Comments UA Ketones (test code Negative mg/dL = UA Ketones) *NA*(11/26/2012 14:32:00) [facility]anoLxqzhugOLVOSJCHEZ3243-64-33 20:32:00 Test Item Value Reference Range Interpretation Comments UA Protein (test code Negative mg/dL N = UA Protein) (11/26/2012 14:32:00) [facility]JvqzsmyZBOHPRKJRA0512-46-20 20:32:00 Test Item Value Reference Range Interpretation Comments UA Leuk Est (test code Trace *ABN*(11/26/2012 A = UA Leuk Est) 14:32:00) [facility]anoWdouhegVJVADFWBQU3776-49-06 20:32:00 Test Item Value Reference Range Interpretation Comments UA Nitrite (test code Negative (11/26/2012 N = UA Nitrite) 14:32:00) [facility] HospitalZwlrkrlDQYERBOVQO6733-03-98 20:32:00 Test Item Value Reference Range Interpretation Comments UA Blood (test code = Negative (11/26/2012 N UA Blood) 14:32:00) [facility]anoXriqkoiMUHYCYXVDY9752-97-40 20:32:00 Test Item Value Reference Range Interpretation Comments UA Color (test code = Yellow *NA*(11/26/2012 UA Color) 14:32:00) [facility]anoKejergbABFKYYLNCO1838-42-72 20:32:00 Test Item Value Reference Range Interpretation Comments UA pH (test code = UA pH) 6.0 5.0-8.0 N [facility]anoLcdedwsAEXYAARCAR7819-71-34 20:32:00 Test Item Value Reference Range Interpretation Comments UA Spec Grav (test code = UA Spec Grav) 1.016 N [facility]anoHwjszqcLGMATXHRAN4230-87-12 20:32:00 Test Item Value Reference Range Interpretation Comments UA Turbidity (test code Slight A = UA Turbidity) *ABN*(11/26/2012 14:32:00) [facility]anoIgnoxwaZGBXSOZXFA2052-04-61 20:32:00 Test Item Value Reference Range Interpretation Comments UA Glucose (test code Negative mg/dL = UA Glucose) *NA*(11/26/2012 14:32:00) [facility] HospitalLnxovjsNDKOXUPOU1024-57-58 20:32:00 Test Item Value Reference Range Interpretation Comments A/G Ratio (test code = A/G Ratio) 0.9 0.7-1.6 N [facility] CenterVnntccgEHTNCYSCL7883-95-67 20:32:00 Test Item Value Reference Range Interpretation Comments Globulin (test code = Globulin) 4.4 2.0-4.0 H [facility] CenterXxfxhslRTLZOBFXK5657-49-30 20:32:00 Test Item Value Reference Range Interpretation Comments AGAP (test code = AGAP) 13.0 10.0-20.0 N [facility] CenterJvzkfwoYFLLSHFHA6492-66-06 20:32:00 Test Item Value Reference Range Interpretation Comments B/C Ratio (test code = B/C Ratio) 18 6-25 N [facility] CenterRhadmxzAWERZMTVN1561-07-07 20:32:00 Test Item Value Reference Range Interpretation Comments AST (test code = AST) 24 See_Comment N [Auto mated message] The system which ge nerated this result transmit ashanti reference range : <=37. The reference range was not used to interpr et this result as carmen l/abnormal. [facility] CenterIcfwkdeWHPQYTPAT4931-79-83 20:32:00 Test Item Value Reference Range Interpretation Comments Bili Total (test code = Bili Total) 0.5 0.2-1.3 N [facility] CenterTaztwhgUVIIXUWYN3167-35-65 20:32:00 Test Item Value Reference Range Interpretation Comments Alk Phos (test code = Alk Phos) 98 39-136 N [facility] CenterEmbyzoqEQPUBFIPO1958-72-71 20:32:00 Test Item Value Reference Range Interpretation Comments ALT (test code = ALT) 37 See_Comment N [Auto mated message] The system which ge nerated this result transmit ashanti reference range : <=65. The reference range was not used to interpr et this result as carmen l/abnormal. [facility] CenterQgbkeqsNQEAOCJML9320-10-74 20:32:00 Test Item Value Reference Range Interpretation Comments Total Protein (test code = Total 8.5 6.4-8.4 H Protein) [facility] CenterSnxmgfcJZDCEPHQR9529-57-22 20:32:00 Test Item Value Reference Range Interpretation Comments eGFR (test code = eGFR) 128 [facility] CenterZgcrscqODKTVJBEW6264-32-70 20:32:00 Test Item Value Reference Range Interpretation Comments Albumin Lvl (test code = Albumin Lvl) 4.1 3.5-5.0 N [facility] CenterPkgbvpuJVHBTKPOA8804-58-03 20:32:00 Test Item Value Reference Range Interpretation Comments Chloride Lvl (test code = Chloride Lvl) 100 95-109 N [facility] CenterPqcylaiTDSWXQCMU9882-84-16 20:32:00 Test Item Value Reference Range Interpretation Comments Potassium Lvl (test code = Potassium 4.0 3.5-5.1 N Lvl) [facility] CenterSbewyyxAIBLDJBUN0682-67-50 20:32:00 Test Item Value Reference Range Interpretation Comments CO2 (test code = CO2) 28 24-32 N [facility] CenterHfljzdaAJEKWQEOM0937-35-18 20:32:00 Test Item Value Reference Range Interpretation Comments Sodium Lvl (test code = Sodium Lvl) 137 135-145 N [facility] CenterTgihgfhPRABSUSRW0613-39-59 20:32:00 Test Item Value Reference Range Interpretation Comments Calcium Lvl (test code = Calcium Lvl) 9.1 8.5-10.5 N [facility] CenterKrmbicqMNUDKILTS5473-40-39 20:32:00 Test Item Value Reference Range Interpretation Comments Creatinine Lvl (test code = Creatinine 0.5 0.5-1.4 N Lvl) [facility] CenterMfeeqdgWEFNKTYPO8375-34-68 20:32:00 Test Item Value Reference Range Interpretation Comments Glucose Lvl (test code = Glucose Lvl) 81 70-99 N [facility] CenterFbstgerURLWQYZCX2284-02-06 20:32:00 Test Item Value Reference Range Interpretation Comments BUN (test code = BUN) 9 7-22 N [facility] CenterRwgbmrpWXICATCZS0572-12-52 20:32:00 Test Item Value Reference Range Interpretation Comments Vitamin D 1,25 (OH)2 Total (test code = 52 18-72 Vitamin D 1,25 (OH)2 Total) [facility] CenterQrjckkbUDIVIGPXA4159-76-13 20:32:00 Test Item Value Reference Range Interpretation Comments Vitamin D2 1,25 (OH)2 (test code = no gt Vitamin D2 1,25 (OH)2) [facility] CenterFkjgsarAVVYWBHFD2711-17-05 20:32:00 Test Item Value Reference Range Interpretation Comments Vitamin D3 1,25 (OH)2 (test code = 52 Vitamin D3 1,25 (OH)2) [facility] CenterVrdadbtDFBSJOHCKX0133-92-28 20:32:00 Test Item Value Reference Range Interpretation Comments MPV (test code = MPV) 8.7 7.4-10.4 N [facility] CenterCgqarbqUMDJURISKL6837-13-40 20:32:00 Test Item Value Reference Range Interpretation Comments Hgb (test code = Hgb) 12.0 12.0-16.0 N [facility] CenterBpunurzDBQNLPLCQK0431-51-21 20:32:00 Test Item Value Reference Range Interpretation Comments RBC (test code = RBC) 4.51 4.20-5.40 N [facility] CenterVlnlakcVDQFICHYDD4429-01-15 20:32:00 Test Item Value Reference Range Interpretation Comments WBC (test code = WBC) 15.6 3.7-10.4 H [facility] CenterVkmfmfdEQLOAXLFAY6466-08-84 20:32:00 Test Item Value Reference Range Interpretation Comments Hct (test code = Hct) 37.0 36.0-48.0 N [facility] CenterTkalcrhPAJHACWNXX2755-22-44 20:32:00 Test Item Value Reference Range Interpretation Comments MCV (test code = MCV) 82.0 81.0-99.0 N [facility] CenterAfmdctpBEAEUYZBQS4763-61-08 20:32:00 Test Item Value Reference Range Interpretation Comments RDW (test code = RDW) 15.9 11.5-14.5 H [facility] CenterEhcdgmgXNDHHTPVQL0006-19-70 20:32:00 Test Item Value Reference Range Interpretation Comments MCHC (test code = MCHC) 32.3 32.0-36.0 N [facility] CenterPamhpgeMBNXYTSSQS8229-68-09 20:32:00 Test Item Value Reference Range Interpretation Comments MCH (test code = MCH) 26.5 pg 27.0-31.0 L [facility] CenterBmhmpaaPSLHSAPYHZ0489-90-10 20:32:00 Test Item Value Reference Range Interpretation Comments Platelet (test code = Platelet) 371 133-450 N [facility] CenterYzoxzwyPNGKOBBYJZ6078-87-00 20:32:00 Test Item Value Reference Range Interpretation Comments Polychrom (test code = Slight (11/26/2012 N Polychrom) 14:32:00) [facility] CenterRvcjvyvDUIZTQFIAU5528-97-31 20:32:00 Test Item Value Reference Range Interpretation Comments Large Plt (test code = Slight *ABN*(11/26/2012 A Large Plt) 14:32:00) [facility] CenterXwrykidGHWRFDSNXN5581-69-60 20:32:00 Test Item Value Reference Range Interpretation Comments Segs (test code = Segs) 73.0 45.0-75.0 N [facility] CenterGorlckcQABUTYWACC1138-33-42 20:32:00 Test Item Value Reference Range Interpretation Comments Eosinophils # (test code 0.2 See_Comment N [A utomated message] The = Eosinophils #) system whic h generated this result tra nsmitted reference range : <=0.5. The reference r megan was not used to int erpret this result as normal/abnormal . [facility] CenterXesyippCREQHKCDVI3999-30-14 20:32:00 Test Item Value Reference Range Interpretation Comments Basophils # (test code 0.1 See_Comment N [Aut omated message] The = Basophils #) system which generated this result tra nsmitted reference range : <=0.2. The reference r megan was not used to int erpret this result as normal/abnormal . [facility] CenterYihlzoqFQOGMIUCYX2834-40-19 20:32:00 Test Item Value Reference Range Interpretation Comments Lymphocytes (test code = Lymphocytes) 21.3 20.0-40.0 N [facility] CenterAvcukdwOXOJPEYXZX8932-04-88 20:32:00 Test Item Value Reference Range Interpretation Comments Segs-Bands # (test code = Segs-Bands #) 11.4 1.5-8.1 H [facility] CenterEfwufddCXKWTBHVGO7435-44-53 20:32:00 Test Item Value Reference Range Interpretation Comments Eosinophils (test code = 1.1 See_Comment N [A utomated message] The Eosinophils) system which ge nerated this result tra nsmitted reference range : <=4.0. The reference r megan was not used to int erpret this result as normal/abnormal . [facility] CenterRtavtbyDBUXSYRPXZ4025-01-76 20:32:00 Test Item Value Reference Range Interpretation Comments Basophils (test code = 0.5 See_Comment N [Aut omated message] The Basophils) system which ge nerated this result tra nsmitted reference range : <=1.0. The reference r megan was not used to int erpret this result as normal/abnormal . [facility] CenterGczuehrOUEKRRVOKN0863-78-30 20:32:00 Test Item Value Reference Range Interpretation Comments Monocytes (test code = Monocytes) 4.1 2.0-12.0 N [facility] CenterKmngqwxSPFRAAHAUF0374-09-43 20:32:00 Test Item Value Reference Range Interpretation Comments Lymphocytes # (test code = Lymphocytes 3.3 1.0-5.5 N #) [facility]PjsbgbaFIAYNCBUBE9632-18-41 20:32:00 Test Item Value Reference Range Interpretation Comments Monocytes # (test code 0.6 See_Comment N [Aut omated message] The = Monocytes #) system which generated this result tra nsmitted reference range : <=0.8. The reference r meagn was not used to int erpret this result as normal/abnormal . [facility] CenterRwksaiyVREWSQUHPV5464-86-58 20:32:00 Test Item Value Reference Range Interpretation Comments PTT (test code = PTT) 28.5 s 22.9-35.8 N [facility] CenterLswlcwbZZTUNGSTTL7783-44-31 20:32:00 Test Item Value Reference Range Interpretation Comments PT (test code = PT) 12.9 s 12.0-14.7 N [facility] CenterNqlepenFUHCDJWKLT3121-41-04 20:32:00 Test Item Value Reference Range Interpretation Comments INR (test code = INR) 0.95 0.85-1.17 N [facility]ViacijgZXSPCMRIXH0815-28-34 20:32:00 Test Item Value Reference Range Interpretation Comments UA Urobilinogen (test code *NA*(11/26/2012 0.1-1.0 = UA Urobilinogen) 14:32:00) [facility] HospitalGimpukcZIMBHJGWYN2106-82-10 20:32:00 Test Item Value Reference Range Interpretation Comments UA Bacteria (test code Occasional /HPF = UA Bacteria) *NA*(11/26/2012 14:32:00) [facility] HospitalBurgodjHJUYXCMQNW4497-36-12 20:32:00 Test Item Value Reference Range Interpretation Comments UA RBC (test code = 1 See_Comment N [Automa ashanti message] The UA RBC) system which ge nerated this result transmit ashanti reference range : <=2. The reference range was not used to interpr et this result as carmen l/abnormal. [facility] HospitalKbqxwnlKXKRPDZZFC2963-08-74 20:32:00 Test Item Value Reference Range Interpretation Comments UA WBC (test code = 3 See_Comment N [Automa ashanti message] The UA WBC) system which ge nerated this result transmit ashanti reference range : <=5. The reference range was not used to interpr et this result as carmen l/abnormal. [facility] HospitalDmdnziaOIQDLOMBME0339-03-64 20:32:00 Test Item Value Reference Range Interpretation Comments UA Sq Epi (test code = Many /LPF A UA Sq Epi) *ABN*(11/26/2012 14:32:00) [facility] HospitalLhimrdzVAXWDYOBNE7339-19-84 20:32:00 Test Item Value Reference Range Interpretation Comments Micro? (test code = Performed *NA*(11/26/2012 Micro?) 14:32:00) [facility] HospitalSkiunsvRXPTINIBJG3669-92-26 20:32:00 Test Item Value Reference Range Interpretation Comments UA Mucus (test code = Few /LPF UA Mucus) *NA*(11/26/2012 14:32:00) [facility] HospitalHpxmqvlXFGIOLGWFQ1829-71-14 20:32:00 Test Item Value Reference Range Interpretation Comments UA Bili (test code = Negative *NA*(11/26/2012 UA Bili) 14:32:00) [facility] HospitalVgblmpdUEBARMXKMJ6605-05-37 20:32:00 Test Item Value Reference Range Interpretation Comments UA Ketones (test code Negative mg/dL = UA Ketones) *NA*(11/26/2012 14:32:00) [facility] HospitalHqvaqdgOWOIJYJACD4814-61-14 20:32:00 Test Item Value Reference Range Interpretation Comments UA Protein (test code Negative mg/dL N = UA Protein) (11/26/2012 14:32:00) [facility] HospitalZoeinwlXUAPVWSZTG0412-58-89 20:32:00 Test Item Value Reference Range Interpretation Comments UA Leuk Est (test code Trace *ABN*(11/26/2012 A = UA Leuk Est) 14:32:00) [facility] HospitalGpfsdnoGNSTKJCULL5741-96-95 20:32:00 Test Item Value Reference Range Interpretation Comments UA Nitrite (test code Negative (11/26/2012 N = UA Nitrite) 14:32:00) [facility] HospitalRkuxstgXLJDSCQVZE9535-51-15 20:32:00 Test Item Value Reference Range Interpretation Comments UA Blood (test code = Negative (11/26/2012 N UA Blood) 14:32:00) [facility] HospitalXgkfvvfWGDARPLEFT8116-86-43 20:32:00 Test Item Value Reference Range Interpretation Comments UA Color (test code = Yellow *NA*(11/26/2012 UA Color) 14:32:00) [facility] HospitalPtjsigcVMFNVWEAVU3430-65-82 20:32:00 Test Item Value Reference Range Interpretation Comments UA pH (test code = UA pH) 6.0 5.0-8.0 N [facility] HospitalQelacajCGOJOEIHWF9203-84-34 20:32:00 Test Item Value Reference Range Interpretation Comments UA Spec Grav (test code = UA Spec Grav) 1.016 N [facility] HospitalQnodzkwOWNMYXBVTD1723-82-65 20:32:00 Test Item Value Reference Range Interpretation Comments UA Turbidity (test code Slight A = UA Turbidity) *ABN*(11/26/2012 14:32:00) [facility] HospitalFsfrbygDMJNPCHQUT4202-46-18 20:32:00 Test Item Value Reference Range Interpretation Comments UA Glucose (test code Negative mg/dL = UA Glucose) *NA*(11/26/2012 14:32:00) [facility] CenterVuooysyNFHJUJRKZ7027-83-57 20:32:00 Test Item Value Reference Range Interpretation Comments A/G Ratio (test code = A/G Ratio) 0.9 0.7-1.6 N [facility] CenterEtlcnpkBQSWHQHLN3799-92-53 20:32:00 Test Item Value Reference Range Interpretation Comments Globulin (test code = Globulin) 4.4 2.0-4.0 H [facility] CenterYexjinvRKWJLLWLB3177-03-27 20:32:00 Test Item Value Reference Range Interpretation Comments AGAP (test code = AGAP) 13.0 10.0-20.0 N [facility] CenterCcsxphbTVXKMQGZV0673-10-91 20:32:00 Test Item Value Reference Range Interpretation Comments B/C Ratio (test code = B/C Ratio) 18 6-25 N [facility] CenterSrlxvchQMTOXWMSR8457-04-73 20:32:00 Test Item Value Reference Range Interpretation Comments AST (test code = AST) 24 See_Comment N [Auto mated message] The system which ge nerated this result transmit ashanti reference range : <=37. The reference range was not used to interpr et this result as carmen l/abnormal. [facility] CenterLkzgopdXVKIXUJJM9783-61-22 20:32:00 Test Item Value Reference Range Interpretation Comments Bili Total (test code = Bili Total) 0.5 0.2-1.3 N [facility] CenterZtlxnsmVZQNNYTMF1428-67-40 20:32:00 Test Item Value Reference Range Interpretation Comments Alk Phos (test code = Alk Phos) 98 39-136 N [facility] CenterYacdmdnLATDJFPWV4259-30-85 20:32:00 Test Item Value Reference Range Interpretation Comments ALT (test code = ALT) 37 See_Comment N [Auto mated message] The system which ge nerated this result transmit ashanti reference range : <=65. The reference range was not used to interpr et this result as carmen l/abnormal. [facility] CenterTcfizsnOPCKBNOMW4397-61-68 20:32:00 Test Item Value Reference Range Interpretation Comments Total Protein (test code = Total 8.5 6.4-8.4 H Protein) [facility] CenterHniqiggLXKODRJWB9638-83-32 20:32:00 Test Item Value Reference Range Interpretation Comments eGFR (test code = eGFR) 128 [facility] CenterButolktTJCYVHPCJ0172-08-43 20:32:00 Test Item Value Reference Range Interpretation Comments Albumin Lvl (test code = Albumin Lvl) 4.1 3.5-5.0 N [facility] CenterFxyoyfqKYRCSURHB7219-76-33 20:32:00 Test Item Value Reference Range Interpretation Comments Chloride Lvl (test code = Chloride Lvl) 100 95-109 N [facility] CenterQmlqcvqXYJWEUBHP2092-90-82 20:32:00 Test Item Value Reference Range Interpretation Comments Potassium Lvl (test code = Potassium 4.0 3.5-5.1 N Lvl) [facility] CenterXnigdojNHRMYOXZX1146-69-26 20:32:00 Test Item Value Reference Range Interpretation Comments CO2 (test code = CO2) 28 24-32 N [facility] CenterToavtefDLYFRDXCD0366-39-51 20:32:00 Test Item Value Reference Range Interpretation Comments Sodium Lvl (test code = Sodium Lvl) 137 135-145 N [facility] CenterSjlqrwzHTPLVEFJL5923-12-82 20:32:00 Test Item Value Reference Range Interpretation Comments Calcium Lvl (test code = Calcium Lvl) 9.1 8.5-10.5 N [facility] CenterIwxuoquRHTNZBFHF0651-46-07 20:32:00 Test Item Value Reference Range Interpretation Comments Creatinine Lvl (test code = Creatinine 0.5 0.5-1.4 N Lvl) [facility] CenterFnaoiapBSKSTKOWH1928-94-92 20:32:00 Test Item Value Reference Range Interpretation Comments Glucose Lvl (test code = Glucose Lvl) 81 70-99 N [facility] CenterTzmmckiGOHEBSCVI3333-03-46 20:32:00 Test Item Value Reference Range Interpretation Comments BUN (test code = BUN) 9 7-22 N [facility] CenterWfbqjjcALTPTUZLC8777-77-07 20:32:00 Test Item Value Reference Range Interpretation Comments Vitamin D 1,25 (OH)2 Total (test code = 52 18-72 Vitamin D 1,25 (OH)2 Total) [facility] CenterMsvcqkiULBZWRLNU2777-27-31 20:32:00 Test Item Value Reference Range Interpretation Comments Vitamin D2 1,25 (OH)2 (test code = no gt Vitamin D2 1,25 (OH)2) [facility] CenterVxbmooxCMBAPVJXD6253-87-11 20:32:00 Test Item Value Reference Range Interpretation Comments Vitamin D3 1,25 (OH)2 (test code = 52 Vitamin D3 1,25 (OH)2) [facility] CenterXjqlfetJPVIWLRBVS2733-33-32 20:32:00 Test Item Value Reference Range Interpretation Comments MPV (test code = MPV) 8.7 7.4-10.4 N [facility] CenterQlqsitdTWJWEHUBLR0588-45-46 20:32:00 Test Item Value Reference Range Interpretation Comments Hgb (test code = Hgb) 12.0 12.0-16.0 N [facility] CenterJlqyxrqJKXOTCGURP8507-50-61 20:32:00 Test Item Value Reference Range Interpretation Comments RBC (test code = RBC) 4.51 4.20-5.40 N [facility] CenterKgzcnjiZVATVSABKU6101-25-79 20:32:00 Test Item Value Reference Range Interpretation Comments WBC (test code = WBC) 15.6 3.7-10.4 H [facility] CenterDslymavBQPXTEVRGA6067-00-12 20:32:00 Test Item Value Reference Range Interpretation Comments Hct (test code = Hct) 37.0 36.0-48.0 N [facility] CenterItcgwkcKTBKROZJDI5648-96-75 20:32:00 Test Item Value Reference Range Interpretation Comments MCV (test code = MCV) 82.0 81.0-99.0 N [facility] CenterTshhalbMLSXJPDANM6670-45-13 20:32:00 Test Item Value Reference Range Interpretation Comments RDW (test code = RDW) 15.9 11.5-14.5 H [facility] CenterEgpdigfJPBRNPYCPY4681-69-83 20:32:00 Test Item Value Reference Range Interpretation Comments MCHC (test code = MCHC) 32.3 32.0-36.0 N [facility] CenterLlsbvatKMDWTNTOZV8900-88-33 20:32:00 Test Item Value Reference Range Interpretation Comments MCH (test code = MCH) 26.5 pg 27.0-31.0 L [facility] CenterYnlgjuqQYPIISCNRD6213-63-84 20:32:00 Test Item Value Reference Range Interpretation Comments Platelet (test code = Platelet) 371 133-450 N [facility] CenterVotgnihWFYROJEESM1082-59-47 20:32:00 Test Item Value Reference Range Interpretation Comments Polychrom (test code = Slight (11/26/2012 N Polychrom) 14:32:00) [facility] CenterQtxcitwNPRYSFMSPP5366-67-84 20:32:00 Test Item Value Reference Range Interpretation Comments Large Plt (test code = Slight *ABN*(11/26/2012 A Large Plt) 14:32:00) [facility] CenterNrfjpdnZXVDJIROAN5642-54-76 20:32:00 Test Item Value Reference Range Interpretation Comments Segs (test code = Segs) 73.0 45.0-75.0 N [facility] CenterVxjkzdlBWHWHQAFVP6746-51-13 20:32:00 Test Item Value Reference Range Interpretation Comments Eosinophils # (test code 0.2 See_Comment N [A utomated message] The = Eosinophils #) system whic h generated this result tra nsmitted reference range : <=0.5. The reference r megan was not used to int erpret this result as normal/abnormal . [facility] CenterZvkdgaxKSUGSIKDTU9379-29-12 20:32:00 Test Item Value Reference Range Interpretation Comments Basophils # (test code 0.1 See_Comment N [Aut omated message] The = Basophils #) system which generated this result tra nsmitted reference range : <=0.2. The reference r megan was not used to int erpret this result as normal/abnormal . [facility] CenterBmlwytgRCIHEWNZYO7059-62-41 20:32:00 Test Item Value Reference Range Interpretation Comments Lymphocytes (test code = Lymphocytes) 21.3 20.0-40.0 N [facility] CenterEhtbmqhDIHCYLBMSH2919-64-62 20:32:00 Test Item Value Reference Range Interpretation Comments Segs-Bands # (test code = Segs-Bands #) 11.4 1.5-8.1 H [facility] CenterJownohoRDLSKIKHCT5972-91-89 20:32:00 Test Item Value Reference Range Interpretation Comments Eosinophils (test code = 1.1 See_Comment N [A utomated message] The Eosinophils) system which ge nerated this result tra nsmitted reference range : <=4.0. The reference r megan was not used to int erpret this result as normal/abnormal . [facility] CenterKysphzbWQHGPAHLPL8945-83-34 20:32:00 Test Item Value Reference Range Interpretation Comments Basophils (test code = 0.5 See_Comment N [Aut omated message] The Basophils) system which ge nerated this result tra nsmitted reference range : <=1.0. The reference r megan was not used to int erpret this result as normal/abnormal . [facility] CenterOkzkwnmHQGEUMHVAO7551-53-03 20:32:00 Test Item Value Reference Range Interpretation Comments Monocytes (test code = Monocytes) 4.1 2.0-12.0 N [facility] CenterUlepplzDGKPWMRMYJ5532-26-16 20:32:00 Test Item Value Reference Range Interpretation Comments Lymphocytes # (test code = Lymphocytes 3.3 1.0-5.5 N #) [facility] CenterKhjzzmxNAEQCJQJUB0229-34-91 20:32:00 Test Item Value Reference Range Interpretation Comments Monocytes # (test code 0.6 See_Comment N [Aut omated message] The = Monocytes #) system which generated this result tra nsmitted reference range : <=0.8. The reference r megan was not used to int erpret this result as normal/abnormal . [facility] CenterHylykjpZRDOWSEWFI8569-20-47 20:32:00 Test Item Value Reference Range Interpretation Comments PTT (test code = PTT) 28.5 s 22.9-35.8 N [facility]PmfocghXXUMKYTUUB6589-16-82 20:32:00 Test Item Value Reference Range Interpretation Comments PT (test code = PT) 12.9 s 12.0-14.7 N [facility] CenterWugsrawRNRKIIGMDB0885-06-69 20:32:00 Test Item Value Reference Range Interpretation Comments INR (test code = INR) 0.95 0.85-1.17 N [facility]DxxlzeqFGRVXJCYKU3204-86-58 20:32:00 Test Item Value Reference Range Interpretation Comments UA Urobilinogen (test code *NA*(11/26/2012 0.1-1.0 = UA Urobilinogen) 14:32:00) [facility] HospitalDfoctxqUBBOSPUDSF6912-19-11 20:32:00 Test Item Value Reference Range Interpretation Comments UA Bacteria (test code Occasional /HPF = UA Bacteria) *NA*(11/26/2012 14:32:00) [facility]KiloiyrQWYCRFLAQH1647-55-91 20:32:00 Test Item Value Reference Range Interpretation Comments UA RBC (test code = 1 See_Comment N [Automa ashanti message] The UA RBC) system which ge nerated this result transmit ashanti reference range : <=2. The reference range was not used to interpr et this result as carmen l/abnormal. [facility]anoQdvblwaFVTLFDUFAV0259-04-45 20:32:00 Test Item Value Reference Range Interpretation Comments UA WBC (test code = 3 See_Comment N [Automa ashanti message] The UA WBC) system which ge nerated this result transmit ashanti reference range : <=5. The reference range was not used to interpr et this result as carmen l/abnormal. [facility]anoWzzvzflJKKHYNCYVP6973-68-99 20:32:00 Test Item Value Reference Range Interpretation Comments UA Sq Epi (test code = Many /LPF A UA Sq Epi) *ABN*(11/26/2012 14:32:00) [facility]EzfoxdmILHHBUNPXY2639-52-65 20:32:00 Test Item Value Reference Range Interpretation Comments Micro? (test code = Performed *NA*(11/26/2012 Micro?) 14:32:00) [facility]anoJnipkcyWLWMANFGFX9380-67-14 20:32:00 Test Item Value Reference Range Interpretation Comments UA Mucus (test code = Few /LPF UA Mucus) *NA*(11/26/2012 14:32:00) [facility]anoPquutazJCQNIFNSZR6171-25-21 20:32:00 Test Item Value Reference Range Interpretation Comments UA Bili (test code = Negative *NA*(11/26/2012 UA Bili) 14:32:00) [facility]anoAbdktloRUIZJDASRN4730-39-19 20:32:00 Test Item Value Reference Range Interpretation Comments UA Ketones (test code Negative mg/dL = UA Ketones) *NA*(11/26/2012 14:32:00) [facility]anoZtudwueLIDFSFIJTS8027-35-19 20:32:00 Test Item Value Reference Range Interpretation Comments UA Protein (test code Negative mg/dL N = UA Protein) (11/26/2012 14:32:00) [facility]EswfjvuZCMDVCGJUE8699-40-00 20:32:00 Test Item Value Reference Range Interpretation Comments UA Leuk Est (test code Trace *ABN*(11/26/2012 A = UA Leuk Est) 14:32:00) [facility]ScvhiruCFCVAKUTWT1924-22-15 20:32:00 Test Item Value Reference Range Interpretation Comments UA Nitrite (test code Negative (11/26/2012 N = UA Nitrite) 14:32:00) [facility] HospitalEnqfmtqBVYKILBHFX1724-16-55 20:32:00 Test Item Value Reference Range Interpretation Comments UA Blood (test code = Negative (11/26/2012 N UA Blood) 14:32:00) [facility] HospitalPwychbyTXYNIFUMGV4964-35-59 20:32:00 Test Item Value Reference Range Interpretation Comments UA Color (test code = Yellow *NA*(11/26/2012 UA Color) 14:32:00) [facility] HospitalLddvbtfBQNYMKRKLA0367-65-67 20:32:00 Test Item Value Reference Range Interpretation Comments UA pH (test code = UA pH) 6.0 5.0-8.0 N [facility] HospitalSoxqqmjIAZSBCGDII2334-61-60 20:32:00 Test Item Value Reference Range Interpretation Comments UA Spec Grav (test code = UA Spec Grav) 1.016 N [facility] HospitalLutvaxjNJJQVPDCZE6120-59-63 20:32:00 Test Item Value Reference Range Interpretation Comments UA Turbidity (test code Slight A = UA Turbidity) *ABN*(11/26/2012 14:32:00) [facility] HospitalIgapryvSIUDWCGBDE9458-09-75 20:32:00 Test Item Value Reference Range Interpretation Comments UA Glucose (test code Negative mg/dL = UA Glucose) *NA*(11/26/2012 14:32:00) [facility] CenterZfnptdzESSABIVST1623-94-27 20:32:00 Test Item Value Reference Range Interpretation Comments A/G Ratio (test code = A/G Ratio) 0.9 0.7-1.6 N [facility] CenterZnfjjuvEIVVVZQNX6401-44-58 20:32:00 Test Item Value Reference Range Interpretation Comments Globulin (test code = Globulin) 4.4 2.0-4.0 H [facility] CenterNomfpetZWXLJPTGE3161-37-16 20:32:00 Test Item Value Reference Range Interpretation Comments AGAP (test code = AGAP) 13.0 10.0-20.0 N [facility] CenterLanxldhFJYBLLWGO3601-36-48 20:32:00 Test Item Value Reference Range Interpretation Comments B/C Ratio (test code = B/C Ratio) 18 6-25 N [facility] CenterDaeeguyQLUTVXYRG9852-78-86 20:32:00 Test Item Value Reference Range Interpretation Comments AST (test code = AST) 24 See_Comment N [Auto mated message] The system which ge nerated this result transmit ashanti reference range : <=37. The reference range was not used to interpr et this result as carmen l/abnormal. [facility] CenterMdkgkjmPRGAFZVXV5086-27-12 20:32:00 Test Item Value Reference Range Interpretation Comments Bili Total (test code = Bili Total) 0.5 0.2-1.3 N [facility] CenterBgidoxwIIQWWNJBC4792-26-13 20:32:00 Test Item Value Reference Range Interpretation Comments Alk Phos (test code = Alk Phos) 98 39-136 N [facility] CenterEtijgowQFQVTAPKN8236-53-07 20:32:00 Test Item Value Reference Range Interpretation Comments ALT (test code = ALT) 37 See_Comment N [Auto mated message] The system which ge nerated this result transmit ashanti reference range : <=65. The reference range was not used to interpr et this result as carmen l/abnormal. [facility] CenterJklylyuQNZILXOUQ7404-09-25 20:32:00 Test Item Value Reference Range Interpretation Comments Total Protein (test code = Total 8.5 6.4-8.4 H Protein) [facility] CenterZzxieeyUBHQARVBW8305-55-11 20:32:00 Test Item Value Reference Range Interpretation Comments eGFR (test code = eGFR) 128 [facility] CenterWtxzotyUFXFIOZSI2573-35-22 20:32:00 Test Item Value Reference Range Interpretation Comments Albumin Lvl (test code = Albumin Lvl) 4.1 3.5-5.0 N [facility] CenterFocbzslDGNOYZLJV8881-41-11 20:32:00 Test Item Value Reference Range Interpretation Comments Chloride Lvl (test code = Chloride Lvl) 100 95-109 N [facility] CenterCmsurrsBOGPZMJEO2954-59-73 20:32:00 Test Item Value Reference Range Interpretation Comments Potassium Lvl (test code = Potassium 4.0 3.5-5.1 N Lvl) [facility] CenterMlvuemzAHKMDKUGR3682-55-97 20:32:00 Test Item Value Reference Range Interpretation Comments CO2 (test code = CO2) 28 24-32 N [facility] CenterCyulnkwCEWIVNPVD9315-47-63 20:32:00 Test Item Value Reference Range Interpretation Comments Sodium Lvl (test code = Sodium Lvl) 137 135-145 N [facility] CenterMdimmppHDUDFGEUM4569-40-27 20:32:00 Test Item Value Reference Range Interpretation Comments Calcium Lvl (test code = Calcium Lvl) 9.1 8.5-10.5 N [facility] CenterXqbfabgAAUSEPAUL7134-55-86 20:32:00 Test Item Value Reference Range Interpretation Comments Creatinine Lvl (test code = Creatinine 0.5 0.5-1.4 N Lvl) [facility] CenterZjgksldJPBHWIGRL8123-44-89 20:32:00 Test Item Value Reference Range Interpretation Comments Glucose Lvl (test code = Glucose Lvl) 81 70-99 N [facility] CenterXyyzoglPGIHXWUAY6331-83-34 20:32:00 Test Item Value Reference Range Interpretation Comments BUN (test code = BUN) 9 7-22 N [facility] CenterZyefvxwGGGNRKYWN1890-04-16 20:32:00 Test Item Value Reference Range Interpretation Comments Vitamin D 1,25 (OH)2 Total (test code = 52 18-72 Vitamin D 1,25 (OH)2 Total) [facility] CenterEgisrjxSLHVBSTCH3763-99-97 20:32:00 Test Item Value Reference Range Interpretation Comments Vitamin D2 1,25 (OH)2 (test code = no gt Vitamin D2 1,25 (OH)2) [facility] CenterQsvjkctUONTLLAOA7641-97-46 20:32:00 Test Item Value Reference Range Interpretation Comments Vitamin D3 1,25 (OH)2 (test code = 52 Vitamin D3 1,25 (OH)2) [facility] CenterIdtsvzvUYPEGXPEBA8067-48-12 20:32:00 Test Item Value Reference Range Interpretation Comments MPV (test code = MPV) 8.7 7.4-10.4 N [facility] CenterKjdvhcmTOOXDKYUFO2941-31-79 20:32:00 Test Item Value Reference Range Interpretation Comments Hgb (test code = Hgb) 12.0 12.0-16.0 N [facility] CenterIsopkafTPGJKIXAOV4657-37-77 20:32:00 Test Item Value Reference Range Interpretation Comments RBC (test code = RBC) 4.51 4.20-5.40 N [facility] CenterEowukclGJOZBCNKUN2795-78-37 20:32:00 Test Item Value Reference Range Interpretation Comments WBC (test code = WBC) 15.6 3.7-10.4 H [facility] CenterPnbnkirBQCEFTHEHE4994-29-11 20:32:00 Test Item Value Reference Range Interpretation Comments Hct (test code = Hct) 37.0 36.0-48.0 N [facility] CenterPqqrzsyAHHKCNIJRI6776-90-53 20:32:00 Test Item Value Reference Range Interpretation Comments MCV (test code = MCV) 82.0 81.0-99.0 N [facility] CenterRxawawoDXKHLDTICW4722-37-47 20:32:00 Test Item Value Reference Range Interpretation Comments RDW (test code = RDW) 15.9 11.5-14.5 H [facility] CenterKwynkxeMEYMMJPDCZ5612-84-19 20:32:00 Test Item Value Reference Range Interpretation Comments MCHC (test code = MCHC) 32.3 32.0-36.0 N [facility] CenterXgwmsmiYENVZFYRZI3263-21-29 20:32:00 Test Item Value Reference Range Interpretation Comments MCH (test code = MCH) 26.5 pg 27.0-31.0 L [facility] CenterRzvzbawHTKQHWUGAS1109-77-95 20:32:00 Test Item Value Reference Range Interpretation Comments Platelet (test code = Platelet) 371 133-450 N [facility] CenterWshwbjbIPAGHXAPWV0553-92-85 20:32:00 Test Item Value Reference Range Interpretation Comments Polychrom (test code = Slight (11/26/2012 N Polychrom) 14:32:00) [facility] CenterOuisehuRFJTFYDCMQ5581-49-03 20:32:00 Test Item Value Reference Range Interpretation Comments Large Plt (test code = Slight *ABN*(11/26/2012 A Large Plt) 14:32:00) [facility] CenterKksevbqGZDEOMVHML1496-53-91 20:32:00 Test Item Value Reference Range Interpretation Comments Segs (test code = Segs) 73.0 45.0-75.0 N [facility] CenterFbcathjHFQDRMPXKB7559-77-05 20:32:00 Test Item Value Reference Range Interpretation Comments Eosinophils # (test code 0.2 See_Comment N [A utomated message] The = Eosinophils #) system whic h generated this result tra nsmitted reference range : <=0.5. The reference r megan was not used to int erpret this result as normal/abnormal . [facility] CenterSkbakyjGGOISJBSCD1522-75-05 20:32:00 Test Item Value Reference Range Interpretation Comments Basophils # (test code 0.1 See_Comment N [Aut omated message] The = Basophils #) system which generated this result tra nsmitted reference range : <=0.2. The reference r megan was not used to int erpret this result as normal/abnormal . [facility] CenterHpnmxpcBIEONGRZIS7925-21-78 20:32:00 Test Item Value Reference Range Interpretation Comments Lymphocytes (test code = Lymphocytes) 21.3 20.0-40.0 N [facility] CenterZjnsntlAYQYKQPHYI1041-04-41 20:32:00 Test Item Value Reference Range Interpretation Comments Segs-Bands # (test code = Segs-Bands #) 11.4 1.5-8.1 H [facility] CenterYbkbnouHMELFDPARM9056-16-26 20:32:00 Test Item Value Reference Range Interpretation Comments Eosinophils (test code = 1.1 See_Comment N [A utomated message] The Eosinophils) system which ge nerated this result tra nsmitted reference range : <=4.0. The reference r megan was not used to int erpret this result as normal/abnormal . [facility] CenterIeprrslHNHLLULUTH2393-67-92 20:32:00 Test Item Value Reference Range Interpretation Comments Basophils (test code = 0.5 See_Comment N [Aut omated message] The Basophils) system which ge nerated this result tra nsmitted reference range : <=1.0. The reference r megan was not used to int erpret this result as normal/abnormal . [facility] CenterLloqdpwWNFJGHFFXX7352-69-59 20:32:00 Test Item Value Reference Range Interpretation Comments Monocytes (test code = Monocytes) 4.1 2.0-12.0 N [facility] CenterGeszxadEXZTPQDXKG7685-47-41 20:32:00 Test Item Value Reference Range Interpretation Comments Lymphocytes # (test code = Lymphocytes 3.3 1.0-5.5 N #) [facility] CenterWiesqlfJUSRIGIJZT0849-95-34 20:32:00 Test Item Value Reference Range Interpretation Comments Monocytes # (test code 0.6 See_Comment N [Aut omated message] The = Monocytes #) system which generated this result tra nsmitted reference range : <=0.8. The reference r megan was not used to int erpret this result as normal/abnormal . [facility] CenterLxxuznoUOJDDYGKXC6433-07-43 20:32:00 Test Item Value Reference Range Interpretation Comments PTT (test code = PTT) 28.5 s 22.9-35.8 N [facility] CenterOpwghogBLTGDZOVXU3552-25-32 20:32:00 Test Item Value Reference Range Interpretation Comments PT (test code = PT) 12.9 s 12.0-14.7 N [facility] CenterOveciizZIBYHOPOMH8902-77-77 20:32:00 Test Item Value Reference Range Interpretation Comments INR (test code = INR) 0.95 0.85-1.17 N [facility]DcbbguvTRSXASWGVM3712-97-88 20:32:00 Test Item Value Reference Range Interpretation Comments UA Urobilinogen (test code *NA*(11/26/2012 0.1-1.0 = UA Urobilinogen) 14:32:00) [facility] HospitalLwdlbduTPORBEVXYA1116-87-08 20:32:00 Test Item Value Reference Range Interpretation Comments UA Bacteria (test code Occasional /HPF = UA Bacteria) *NA*(11/26/2012 14:32:00) [facility] HospitalOrifsatRSZMMBOBJM6028-92-74 20:32:00 Test Item Value Reference Range Interpretation Comments UA RBC (test code = 1 See_Comment N [Automa ashanti message] The UA RBC) system which ge nerated this result transmit ashanti reference range : <=2. The reference range was not used to interpr et this result as carmen l/abnormal. [facility] HospitalLkfpzprUWAIQNHVFE0766-36-77 20:32:00 Test Item Value Reference Range Interpretation Comments UA WBC (test code = 3 See_Comment N [Automa ashanti message] The UA WBC) system which ge nerated this result transmit ashanti reference range : <=5. The reference range was not used to interpr et this result as carmen l/abnormal. [facility] HospitalPqkqekdIJCBVEHYIZ6960-15-52 20:32:00 Test Item Value Reference Range Interpretation Comments UA Sq Epi (test code = Many /LPF A UA Sq Epi) *ABN*(11/26/2012 14:32:00) [facility] HospitalZtmtosnBAHCBAZWVP2136-52-39 20:32:00 Test Item Value Reference Range Interpretation Comments Micro? (test code = Performed *NA*(11/26/2012 Micro?) 14:32:00) [facility] HospitalYlmbizsGGDQRXGLIV0006-71-84 20:32:00 Test Item Value Reference Range Interpretation Comments UA Mucus (test code = Few /LPF UA Mucus) *NA*(11/26/2012 14:32:00) [facility] HospitalOtlbzfbNRYUUOJDFC5626-20-64 20:32:00 Test Item Value Reference Range Interpretation Comments UA Bili (test code = Negative *NA*(11/26/2012 UA Bili) 14:32:00) [facility] HospitalMsdghqbIPYCWHMUWU9113-02-10 20:32:00 Test Item Value Reference Range Interpretation Comments UA Ketones (test code Negative mg/dL = UA Ketones) *NA*(11/26/2012 14:32:00) [facility] HospitalFyaatzqWPAQEBWXXY9766-82-86 20:32:00 Test Item Value Reference Range Interpretation Comments UA Protein (test code Negative mg/dL N = UA Protein) (11/26/2012 14:32:00) [facility]YzxsmyrFGYYJHJJBD5953-[facility]-20 20:32:00 Test Item Value Reference Range Interpretation Comments UA Leuk Est (test code Trace *ABN*(11/26/2012 A = UA Leuk Est) 14:32:00) [facility] HospitalDgffdpnWNPIDRKEVA4321-89-54 20:32:00 Test Item Value Reference Range Interpretation Comments UA Nitrite (test code Negative (11/26/2012 N = UA Nitrite) 14:32:00) [facility]anoHmsohoyUJWNFEMFPA1534-19-03 20:32:00 Test Item Value Reference Range Interpretation Comments UA Blood (test code = Negative (11/26/2012 N UA Blood) 14:32:00) [facility]anoQxdaqakSRGFAKPWPM6981-34-96 20:32:00 Test Item Value Reference Range Interpretation Comments UA Color (test code = Yellow *NA*(11/26/2012 UA Color) 14:32:00) [facility]anoOjxaspdSMTBADVRNV4429-61-10 20:32:00 Test Item Value Reference Range Interpretation Comments UA pH (test code = UA pH) 6.0 5.0-8.0 N [facility]anoAitvkwiMVCQRSKVPT5722-56-41 20:32:00 Test Item Value Reference Range Interpretation Comments UA Spec Grav (test code = UA Spec Grav) 1.016 N [facility] HospitalSxmmfkqYDTAOTUIKW5911-65-71 20:32:00 Test Item Value Reference Range Interpretation Comments UA Turbidity (test code Slight A = UA Turbidity) *ABN*(11/26/2012 14:32:00) [facility] HospitalEreqycnJNSHTDZTWR2790-30-85 20:32:00 Test Item Value Reference Range Interpretation Comments UA Glucose (test code Negative mg/dL = UA Glucose) *NA*(11/26/2012 14:32:00) [facility] CenterPekgpxvMJBATPGIS7965-48-97 20:32:00 Test Item Value Reference Range Interpretation Comments A/G Ratio (test code = A/G Ratio) 0.9 0.7-1.6 N [facility] CenterPzujawtAORRRMUSW8650-39-23 20:32:00 Test Item Value Reference Range Interpretation Comments Globulin (test code = Globulin) 4.4 2.0-4.0 H [facility] CenterDbuwwrvMPRKZUDJN6673-00-02 20:32:00 Test Item Value Reference Range Interpretation Comments AGAP (test code = AGAP) 13.0 10.0-20.0 N [facility] CenterBvhgjuxRGCYQTVII5650-05-41 20:32:00 Test Item Value Reference Range Interpretation Comments B/C Ratio (test code = B/C Ratio) 18 6-25 N [facility] CenterCimkzqzEBYDZLQMJ0912-32-45 20:32:00 Test Item Value Reference Range Interpretation Comments AST (test code = AST) 24 See_Comment N [Auto mated message] The system which ge nerated this result transmit ashanti reference range : <=37. The reference range was not used to interpr et this result as carmen l/abnormal. [facility] CenterVmiordyRXJOTXZUL9676-46-47 20:32:00 Test Item Value Reference Range Interpretation Comments Bili Total (test code = Bili Total) 0.5 0.2-1.3 N [facility] CenterCzfsfwnDNOVLJZQO7550-78-93 20:32:00 Test Item Value Reference Range Interpretation Comments Alk Phos (test code = Alk Phos) 98 39-136 N [facility] CenterWeyeqjrNAHRERWLG4779-13-72 20:32:00 Test Item Value Reference Range Interpretation Comments ALT (test code = ALT) 37 See_Comment N [Auto mated message] The system which ge nerated this result transmit ashanti reference range : <=65. The reference range was not used to interpr et this result as carmen l/abnormal. [facility] CenterRgiykkxUYTOWHLXE2632-15-72 20:32:00 Test Item Value Reference Range Interpretation Comments Total Protein (test code = Total 8.5 6.4-8.4 H Protein) [facility] CenterZjoypbqBNFMZSNTD9412-91-57 20:32:00 Test Item Value Reference Range Interpretation Comments eGFR (test code = eGFR) 128 [facility] CenterAstlzztVNZDEJTSM9347-79-25 20:32:00 Test Item Value Reference Range Interpretation Comments Albumin Lvl (test code = Albumin Lvl) 4.1 3.5-5.0 N [facility] CenterPyprnwkAATYFIANV3381-70-08 20:32:00 Test Item Value Reference Range Interpretation Comments Chloride Lvl (test code = Chloride Lvl) 100 95-109 N [facility] CenterCdnipbhLFTJRSKNB5510-42-29 20:32:00 Test Item Value Reference Range Interpretation Comments Potassium Lvl (test code = Potassium 4.0 3.5-5.1 N Lvl) [facility] CenterDxstdzpIALQRZDPN5684-37-52 20:32:00 Test Item Value Reference Range Interpretation Comments CO2 (test code = CO2) 28 24-32 N [facility] CenterMuflnwePDBMSNEDO7177-82-77 20:32:00 Test Item Value Reference Range Interpretation Comments Sodium Lvl (test code = Sodium Lvl) 137 135-145 N [facility] CenterFmbijhjDVMDXSAGS4577-70-60 20:32:00 Test Item Value Reference Range Interpretation Comments Calcium Lvl (test code = Calcium Lvl) 9.1 8.5-10.5 N [facility] CenterCajuucsACOBXUFFD0246-38-97 20:32:00 Test Item Value Reference Range Interpretation Comments Creatinine Lvl (test code = Creatinine 0.5 0.5-1.4 N Lvl) [facility] CenterJujwrucITJEFXYWX3949-58-19 20:32:00 Test Item Value Reference Range Interpretation Comments Glucose Lvl (test code = Glucose Lvl) 81 70-99 N [facility] CenterMnthaogFIBASIUHY3067-23-69 20:32:00 Test Item Value Reference Range Interpretation Comments BUN (test code = BUN) 9 7-22 N [facility] CenterXcgckowGVGWXKNLQ8144-83-74 20:32:00 Test Item Value Reference Range Interpretation Comments Vitamin D 1,25 (OH)2 Total (test code = 52 18-72 Vitamin D 1,25 (OH)2 Total) [facility] CenterLllkpqzSNDRPUMFB5759-37-55 20:32:00 Test Item Value Reference Range Interpretation Comments Vitamin D2 1,25 (OH)2 (test code = no gt Vitamin D2 1,25 (OH)2) [facility] CenterRxlovgrXJDZQKKWK0775-18-35 20:32:00 Test Item Value Reference Range Interpretation Comments Vitamin D3 1,25 (OH)2 (test code = 52 Vitamin D3 1,25 (OH)2) [facility] CenterVjbcxheLHTAZLFSWH1713-20-63 20:32:00 Test Item Value Reference Range Interpretation Comments MPV (test code = MPV) 8.7 7.4-10.4 N [facility] CenterOjxkijoVQRTAEVRRF3114-41-05 20:32:00 Test Item Value Reference Range Interpretation Comments Hgb (test code = Hgb) 12.0 12.0-16.0 N [facility] CenterFjozyhkMZJCRWNMKL5862-99-36 20:32:00 Test Item Value Reference Range Interpretation Comments RBC (test code = RBC) 4.51 4.20-5.40 N [facility] CenterQgweqboPXNPPAFHRH9108-49-08 20:32:00 Test Item Value Reference Range Interpretation Comments WBC (test code = WBC) 15.6 3.7-10.4 H [facility] CenterJprfyamEKLSQYPPIP7743-55-05 20:32:00 Test Item Value Reference Range Interpretation Comments Hct (test code = Hct) 37.0 36.0-48.0 N [facility] CenterFweoeitLZYXBGORXU5484-05-40 20:32:00 Test Item Value Reference Range Interpretation Comments MCV (test code = MCV) 82.0 81.0-99.0 N [facility] CenterJwlgozeAKDPRBERSE0323-13-53 20:32:00 Test Item Value Reference Range Interpretation Comments RDW (test code = RDW) 15.9 11.5-14.5 H [facility] CenterYfpcxqsTMJZAYSRXT6280-31-01 20:32:00 Test Item Value Reference Range Interpretation Comments MCHC (test code = MCHC) 32.3 32.0-36.0 N [facility] CenterMmhktwoZCQEPKVITY5660-06-36 20:32:00 Test Item Value Reference Range Interpretation Comments MCH (test code = MCH) 26.5 pg 27.0-31.0 L [facility] CenterSpmwrezJTVEXVBDZZ6124-09-58 20:32:00 Test Item Value Reference Range Interpretation Comments Platelet (test code = Platelet) 371 133-450 N [facility] CenterOjzltfiZLORBKZJOF9536-30-57 20:32:00 Test Item Value Reference Range Interpretation Comments Polychrom (test code = Slight (11/26/2012 N Polychrom) 14:32:00) [facility] CenterTqantxsBTWQAGLCPY3152-29-75 20:32:00 Test Item Value Reference Range Interpretation Comments Large Plt (test code = Slight *ABN*(11/26/2012 A Large Plt) 14:32:00) [facility] CenterMjqdxbqANLASQDJSL5521-50-55 20:32:00 Test Item Value Reference Range Interpretation Comments Segs (test code = Segs) 73.0 45.0-75.0 N [facility] CenterFrwpohuIKDXNNBUNR1926-97-39 20:32:00 Test Item Value Reference Range Interpretation Comments Eosinophils # (test code 0.2 See_Comment N [A utomated message] The = Eosinophils #) system whic h generated this result tra nsmitted reference range : <=0.5. The reference r megan was not used to int erpret this result as normal/abnormal . [facility] CenterEzphoouCMUBAHQAUP6095-87-63 20:32:00 Test Item Value Reference Range Interpretation Comments Basophils # (test code 0.1 See_Comment N [Aut omated message] The = Basophils #) system which generated this result tra nsmitted reference range : <=0.2. The reference r megan was not used to int erpret this result as normal/abnormal . [facility] CenterItrykdeYBWYYORNMT2434-08-96 20:32:00 Test Item Value Reference Range Interpretation Comments Lymphocytes (test code = Lymphocytes) 21.3 20.0-40.0 N [facility] CenterTodtsudBQGNKAKTYX8102-88-96 20:32:00 Test Item Value Reference Range Interpretation Comments Segs-Bands # (test code = Segs-Bands #) 11.4 1.5-8.1 H [facility] CenterFlupnqgTQZVXEQGUH8284-35-05 20:32:00 Test Item Value Reference Range Interpretation Comments Eosinophils (test code = 1.1 See_Comment N [A utomated message] The Eosinophils) system which ge nerated this result tra nsmitted reference range : <=4.0. The reference r megan was not used to int erpret this result as normal/abnormal . [facility] CenterKcppmdbFJPIIKUOZB6983-94-89 20:32:00 Test Item Value Reference Range Interpretation Comments Basophils (test code = 0.5 See_Comment N [Aut omated message] The Basophils) system which ge nerated this result tra nsmitted reference range : <=1.0. The reference r megan was not used to int erpret this result as normal/abnormal . [facility] CenterNzbcrewCBPTVANMHE3793-45-86 20:32:00 Test Item Value Reference Range Interpretation Comments Monocytes (test code = Monocytes) 4.1 2.0-12.0 N [facility] CenterMbhuabzXLNPZHQYCX4658-62-16 20:32:00 Test Item Value Reference Range Interpretation Comments Lymphocytes # (test code = Lymphocytes 3.3 1.0-5.5 N #) [facility] CenterRodhjlvUXQVGDQTUA8715-16-70 20:32:00 Test Item Value Reference Range Interpretation Comments Monocytes # (test code 0.6 See_Comment N [Aut omated message] The = Monocytes #) system which generated this result tra nsmitted reference range : <=0.8. The reference r megan was not used to int erpret this result as normal/abnormal . [facility] CenterWquomriRYTQRPBIBO7929-86-12 20:32:00 Test Item Value Reference Range Interpretation Comments PTT (test code = PTT) 28.5 s 22.9-35.8 N [facility] CenterEkmfjrdRSEBUJLRTP3101-62-32 20:32:00 Test Item Value Reference Range Interpretation Comments PT (test code = PT) 12.9 s 12.0-14.7 N [facility] CenterJvmowguEUYCYVWCVQ6881-82-00 20:32:00 Test Item Value Reference Range Interpretation Comments INR (test code = INR) 0.95 0.85-1.17 N [facility] HospitalRehlwacMOIZOVWPAL4391-53-90 20:32:00 Test Item Value Reference Range Interpretation Comments UA Urobilinogen (test code *NA*(11/26/2012 0.1-1.0 = UA Urobilinogen) 14:32:00) [facility]UjyfbxkZGOJTFADIR1569-58-05 20:32:00 Test Item Value Reference Range Interpretation Comments UA Bacteria (test code Occasional /HPF = UA Bacteria) *NA*(11/26/2012 14:32:00) [facility]HszvxlyEBOWDBRTEG9636-73-10 20:32:00 Test Item Value Reference Range Interpretation Comments UA RBC (test code = 1 See_Comment N [Automa ashanti message] The UA RBC) system which ge nerated this result transmit ashanti reference range : <=2. The reference range was not used to interpr et this result as carmen l/abnormal. [facility]anoLstcoexMSCMLPQMTE3860-15-61 20:32:00 Test Item Value Reference Range Interpretation Comments UA WBC (test code = 3 See_Comment N [Automa ashanti message] The UA WBC) system which ge nerated this result transmit ashanti reference range : <=5. The reference range was not used to interpr et this result as carmen l/abnormal. [facility]anoBujshokKWHKMCBGLX6931-88-23 20:32:00 Test Item Value Reference Range Interpretation Comments UA Sq Epi (test code = Many /LPF A UA Sq Epi) *ABN*(11/26/2012 14:32:00) [facility]anoJsxpcgzACNWWKLWIY4510-89-28 20:32:00 Test Item Value Reference Range Interpretation Comments Micro? (test code = Performed *NA*(11/26/2012 Micro?) 14:32:00) [facility]anoPntqsmhHYZYIDPMMZ7350-77-19 20:32:00 Test Item Value Reference Range Interpretation Comments UA Mucus (test code = Few /LPF UA Mucus) *NA*(11/26/2012 14:32:00) [facility]anoRleryieVNXTXQAPET7610-81-55 20:32:00 Test Item Value Reference Range Interpretation Comments UA Bili (test code = Negative *NA*(11/26/2012 UA Bili) 14:32:00) [facility]anoBjmnoclAAQKGGGKNC2402-92-68 20:32:00 Test Item Value Reference Range Interpretation Comments UA Ketones (test code Negative mg/dL = UA Ketones) *NA*(11/26/2012 14:32:00) [facility]anoAioojqvSECQHMKQPI7026-73-61 20:32:00 Test Item Value Reference Range Interpretation Comments UA Protein (test code Negative mg/dL N = UA Protein) (11/26/2012 14:32:00) [facility]anoUwfqcheHPCKFQGDST6736-94-06 20:32:00 Test Item Value Reference Range Interpretation Comments UA Leuk Est (test code Trace *ABN*(11/26/2012 A = UA Leuk Est) 14:32:00) [facility] HospitalNdodsitYAEIDNKPKF9945-62-66 20:32:00 Test Item Value Reference Range Interpretation Comments UA Nitrite (test code Negative (11/26/2012 N = UA Nitrite) 14:32:00) [facility] HospitalMjlsgusCTEMPEISNY6393-48-47 20:32:00 Test Item Value Reference Range Interpretation Comments UA Blood (test code = Negative (11/26/2012 N UA Blood) 14:32:00) [facility] HospitalLgbfutdXHDMPEEIHF6059-97-98 20:32:00 Test Item Value Reference Range Interpretation Comments UA Color (test code = Yellow *NA*(11/26/2012 UA Color) 14:32:00) [facility] HospitalPrzjwxlHSGAHRARXV8285-53-96 20:32:00 Test Item Value Reference Range Interpretation Comments UA pH (test code = UA pH) 6.0 5.0-8.0 N [facility] HospitalKpsblqeBPRBJAPOCF8914-39-61 20:32:00 Test Item Value Reference Range Interpretation Comments UA Spec Grav (test code = UA Spec Grav) 1.016 N [facility] HospitalYpacpvnGYNRVHUYDO5154-30-84 20:32:00 Test Item Value Reference Range Interpretation Comments UA Turbidity (test code Slight A = UA Turbidity) *ABN*(11/26/2012 14:32:00) [facility] HospitalUgdefljCVYYWSIQBS5848-28-96 20:32:00 Test Item Value Reference Range Interpretation Comments UA Glucose (test code Negative mg/dL = UA Glucose) *NA*(11/26/2012 14:32:00) [facility] CenterPlzwbplYTRBMQFTJ2130-65-94 20:32:00 Test Item Value Reference Range Interpretation Comments A/G Ratio (test code = A/G Ratio) 0.9 0.7-1.6 N [facility] CenterNzqafllZSTGTGULZ2812-26-11 20:32:00 Test Item Value Reference Range Interpretation Comments Globulin (test code = Globulin) 4.4 2.0-4.0 H [facility] CenterYpplhtbDRFWDLKSU9547-01-05 20:32:00 Test Item Value Reference Range Interpretation Comments AGAP (test code = AGAP) 13.0 10.0-20.0 N [facility] CenterBcexlgbOUAJOLISJ6225-95-75 20:32:00 Test Item Value Reference Range Interpretation Comments B/C Ratio (test code = B/C Ratio) 18 6-25 N [facility]JdgzrcxYRCTGSNQJ8368-47-39 20:32:00 Test Item Value Reference Range Interpretation Comments AST (test code = AST) 24 See_Comment N [Auto mated message] The system which ge nerated this result transmit ashanti reference range : <=37. The reference range was not used to interpr et this result as carmen l/abnormal. [facility] CenterGlbyxgbTHMXXTVQO0162-61-38 20:32:00 Test Item Value Reference Range Interpretation Comments Bili Total (test code = Bili Total) 0.5 0.2-1.3 N [facility] CenterKhqyzziNAZZQGIVF6490-16-94 20:32:00 Test Item Value Reference Range Interpretation Comments Alk Phos (test code = Alk Phos) 98 39-136 N [facility] CenterBufgcbzKHDQHHTZV9560-85-47 20:32:00 Test Item Value Reference Range Interpretation Comments ALT (test code = ALT) 37 See_Comment N [Auto mated message] The system which ge nerated this result transmit ashanti reference range : <=65. The reference range was not used to interpr et this result as carmen l/abnormal. [facility] CenterGcivgmyFUXRXQXOX0269-70-50 20:32:00 Test Item Value Reference Range Interpretation Comments Total Protein (test code = Total 8.5 6.4-8.4 H Protein) [facility] CenterWqzhomdDVODUMLTL1036-59-49 20:32:00 Test Item Value Reference Range Interpretation Comments eGFR (test code = eGFR) 128 [facility] CenterBawnjvyVNALEIFWX1485-91-65 20:32:00 Test Item Value Reference Range Interpretation Comments Albumin Lvl (test code = Albumin Lvl) 4.1 3.5-5.0 N [facility] CenterRqgehpmVNXELJGHN6939-11-88 20:32:00 Test Item Value Reference Range Interpretation Comments Chloride Lvl (test code = Chloride Lvl) 100 95-109 N [facility] CenterZlwfjduLCFWXZEIO4599-18-52 20:32:00 Test Item Value Reference Range Interpretation Comments Potassium Lvl (test code = Potassium 4.0 3.5-5.1 N Lvl) [facility] CenterOadbotxRGFHXJWDC8875-10-52 20:32:00 Test Item Value Reference Range Interpretation Comments CO2 (test code = CO2) 28 24-32 N [facility] CenterQcttuvvZKNEMLACP3424-82-94 20:32:00 Test Item Value Reference Range Interpretation Comments Sodium Lvl (test code = Sodium Lvl) 137 135-145 N [facility] CenterJkybleyNVTPIAQHE3200-33-00 20:32:00 Test Item Value Reference Range Interpretation Comments Calcium Lvl (test code = Calcium Lvl) 9.1 8.5-10.5 N [facility] CenterGjkjjxwUVSHGOHWE6124-21-16 20:32:00 Test Item Value Reference Range Interpretation Comments Creatinine Lvl (test code = Creatinine 0.5 0.5-1.4 N Lvl) [facility] CenterMvaehvkOXSRKAIJJ8249-93-58 20:32:00 Test Item Value Reference Range Interpretation Comments Glucose Lvl (test code = Glucose Lvl) 81 70-99 N [facility] CenterKxlnhqmTQNPCLTZB8624-84-77 20:32:00 Test Item Value Reference Range Interpretation Comments BUN (test code = BUN) 9 7-22 N [facility] CenterYobhuvmZRFGBQKEN2382-36-95 20:32:00 Test Item Value Reference Range Interpretation Comments Vitamin D 1,25 (OH)2 Total (test code = 52 18-72 Vitamin D 1,25 (OH)2 Total) [facility] CenterNarvrqsUKQROWYEH2812-28-10 20:32:00 Test Item Value Reference Range Interpretation Comments Vitamin D2 1,25 (OH)2 (test code = no gt Vitamin D2 1,25 (OH)2) [facility] CenterDmmlpklGPZDLHUFM1001-82-09 20:32:00 Test Item Value Reference Range Interpretation Comments Vitamin D3 1,25 (OH)2 (test code = 52 Vitamin D3 1,25 (OH)2) [facility] CenterGblmbabURXDUZACJE9543-85-31 20:32:00 Test Item Value Reference Range Interpretation Comments MPV (test code = MPV) 8.7 7.4-10.4 N [facility] CenterTatvgytBATZOGPMPX1326-07-63 20:32:00 Test Item Value Reference Range Interpretation Comments Hgb (test code = Hgb) 12.0 12.0-16.0 N [facility] CenterHoeilknVPUQEXKGQC5619-95-15 20:32:00 Test Item Value Reference Range Interpretation Comments RBC (test code = RBC) 4.51 4.20-5.40 N [facility] CenterPwlyohxGZNJRMBQTX3311-35-08 20:32:00 Test Item Value Reference Range Interpretation Comments WBC (test code = WBC) 15.6 3.7-10.4 H [facility] CenterOiltncmZGBMDKOTEF8096-74-43 20:32:00 Test Item Value Reference Range Interpretation Comments Hct (test code = Hct) 37.0 36.0-48.0 N [facility]PsucxalVAZPFWUZMT1633-02-54 20:32:00 Test Item Value Reference Range Interpretation Comments MCV (test code = MCV) 82.0 81.0-99.0 N [facility] CenterZvtffrgUZMSWIIXGA6837-75-10 20:32:00 Test Item Value Reference Range Interpretation Comments RDW (test code = RDW) 15.9 11.5-14.5 H [facility] CenterBanplkdPMIECXAOYN7471-18-37 20:32:00 Test Item Value Reference Range Interpretation Comments MCHC (test code = MCHC) 32.3 32.0-36.0 N [facility] CenterQmgxxwmTYMHNRGAKO1404-64-07 20:32:00 Test Item Value Reference Range Interpretation Comments MCH (test code = MCH) 26.5 pg 27.0-31.0 L [facility] CenterYxnifyaQERRPMFPAP6057-00-61 20:32:00 Test Item Value Reference Range Interpretation Comments Platelet (test code = Platelet) 371 133-450 N [facility] CenterDhbccqvQPVGBMKFJN6871-57-04 20:32:00 Test Item Value Reference Range Interpretation Comments Polychrom (test code = Slight (11/26/2012 N Polychrom) 14:32:00) [facility] CenterGslxrisPXCHAQPKZF9077-48-29 20:32:00 Test Item Value Reference Range Interpretation Comments Large Plt (test code = Slight *ABN*(11/26/2012 A Large Plt) 14:32:00) [facility] CenterNxryjziPDNUYNSDIS8437-90-92 20:32:00 Test Item Value Reference Range Interpretation Comments Segs (test code = Segs) 73.0 45.0-75.0 N [facility] CenterHakdxhlMQKLQRHIMI9115-75-57 20:32:00 Test Item Value Reference Range Interpretation Comments Eosinophils # (test code 0.2 See_Comment N [A utomated message] The = Eosinophils #) system whic h generated this result tra nsmitted reference range : <=0.5. The reference r megan was not used to int erpret this result as normal/abnormal . [facility] CenterKhrbsrcHVNQLEYVED0671-59-44 20:32:00 Test Item Value Reference Range Interpretation Comments Basophils # (test code 0.1 See_Comment N [Aut omated message] The = Basophils #) system which generated this result tra nsmitted reference range : <=0.2. The reference r megan was not used to int erpret this result as normal/abnormal . [facility] CenterYtobfseJXODYEXHOL9709-00-02 20:32:00 Test Item Value Reference Range Interpretation Comments Lymphocytes (test code = Lymphocytes) 21.3 20.0-40.0 N [facility] CenterNphixyxILKUEODZTR8239-78-31 20:32:00 Test Item Value Reference Range Interpretation Comments Segs-Bands # (test code = Segs-Bands #) 11.4 1.5-8.1 H [facility] CenterNyfbwpdXDOMJYAIEJ3605-10-32 20:32:00 Test Item Value Reference Range Interpretation Comments Eosinophils (test code = 1.1 See_Comment N [A utomated message] The Eosinophils) system which ge nerated this result tra nsmitted reference range : <=4.0. The reference r megan was not used to int erpret this result as normal/abnormal . [facility] CenterMmjmngpNKVGIPWQBF1127-76-35 20:32:00 Test Item Value Reference Range Interpretation Comments Basophils (test code = 0.5 See_Comment N [Aut omated message] The Basophils) system which ge nerated this result tra nsmitted reference range : <=1.0. The reference r megan was not used to int erpret this result as normal/abnormal . [facility] CenterMeusdimVXPPFYDVHH3154-24-64 20:32:00 Test Item Value Reference Range Interpretation Comments Monocytes (test code = Monocytes) 4.1 2.0-12.0 N [facility] CenterKlhnycdRBDXLZDIPV6340-02-85 20:32:00 Test Item Value Reference Range Interpretation Comments Lymphocytes # (test code = Lymphocytes 3.3 1.0-5.5 N #) [facility] CenterJuuhovmSMIXFOFTGX7823-93-70 20:32:00 Test Item Value Reference Range Interpretation Comments Monocytes # (test code 0.6 See_Comment N [Aut omated message] The = Monocytes #) system which generated this result tra nsmitted reference range : <=0.8. The reference r megan was not used to int erpret this result as normal/abnormal . [facility] CenterJohygxrDVIDYSKXFX6017-83-92 20:32:00 Test Item Value Reference Range Interpretation Comments PTT (test code = PTT) 28.5 s 22.9-35.8 N [facility] CenterRkuspudWNCCZVPXKN0674-70-76 20:32:00 Test Item Value Reference Range Interpretation Comments PT (test code = PT) 12.9 s 12.0-14.7 N [facility] CenterOmdixzuHKNXJTQQEO5549-60-85 20:32:00 Test Item Value Reference Range Interpretation Comments INR (test code = INR) 0.95 0.85-1.17 N [facility]CcpwwzgXPFHEGZIVT2531-48-94 20:32:00 Test Item Value Reference Range Interpretation Comments UA Urobilinogen (test code *NA*(11/26/2012 0.1-1.0 = UA Urobilinogen) 14:32:00) [facility] HospitalWsirgbrBSSHPRLQZF1106-34-00 20:32:00 Test Item Value Reference Range Interpretation Comments UA Bacteria (test code Occasional /HPF = UA Bacteria) *NA*(11/26/2012 14:32:00) [facility] HospitalQgklyntSRPHCYBQIN3071-07-24 20:32:00 Test Item Value Reference Range Interpretation Comments UA RBC (test code = 1 See_Comment N [Automa ashanti message] The UA RBC) system which ge nerated this result transmit ashanti reference range : <=2. The reference range was not used to interpr et this result as carmen l/abnormal. [facility] HospitalApumbgaMTDOLNRXYF0801-43-78 20:32:00 Test Item Value Reference Range Interpretation Comments UA WBC (test code = 3 See_Comment N [Automa ashanti message] The UA WBC) system which ge nerated this result transmit ashanti reference range : <=5. The reference range was not used to interpr et this result as carmen l/abnormal. [facility] HospitalUgelbmaMYWQLIQNWS0941-89-15 20:32:00 Test Item Value Reference Range Interpretation Comments UA Sq Epi (test code = Many /LPF A UA Sq Epi) *ABN*(11/26/2012 14:32:00) [facility] HospitalFsjsftmBJFLQDGWUM5897-20-98 20:32:00 Test Item Value Reference Range Interpretation Comments Micro? (test code = Performed *NA*(11/26/2012 Micro?) 14:32:00) [facility] HospitalVjjzpiuXXQQBIXKYJ0541-72-43 20:32:00 Test Item Value Reference Range Interpretation Comments UA Mucus (test code = Few /LPF UA Mucus) *NA*(11/26/2012 14:32:00) [facility] HospitalAhavqwzIOTVSOWBQS3432-57-53 20:32:00 Test Item Value Reference Range Interpretation Comments UA Bili (test code = Negative *NA*(11/26/2012 UA Bili) 14:32:00) [facility] HospitalGvxrlqaLGFOUSDNKT9555-08-91 20:32:00 Test Item Value Reference Range Interpretation Comments UA Ketones (test code Negative mg/dL = UA Ketones) *NA*(11/26/2012 14:32:00) [facility] HospitalHfmidasYKSYJXBKGM8850-53-87 20:32:00 Test Item Value Reference Range Interpretation Comments UA Protein (test code Negative mg/dL N = UA Protein) (11/26/2012 14:32:00) [facility] HospitalLumvccyQWEVEEAAIF8298-12-27 20:32:00 Test Item Value Reference Range Interpretation Comments UA Leuk Est (test code Trace *ABN*(11/26/2012 A = UA Leuk Est) 14:32:00) [facility] HospitalTpefxihDZGIFOABCN6668-34-24 20:32:00 Test Item Value Reference Range Interpretation Comments UA Nitrite (test code Negative (11/26/2012 N = UA Nitrite) 14:32:00) [facility] HospitalHblobzkEDDMEQZHXN3959-07-23 20:32:00 Test Item Value Reference Range Interpretation Comments UA Blood (test code = Negative (11/26/2012 N UA Blood) 14:32:00) [facility] HospitalWdxuemkNLYDMSMSGL7083-60-54 20:32:00 Test Item Value Reference Range Interpretation Comments UA Color (test code = Yellow *NA*(11/26/2012 UA Color) 14:32:00) [facility] HospitalQkqlkyvFXAXZLKHDU9874-82-51 20:32:00 Test Item Value Reference Range Interpretation Comments UA pH (test code = UA pH) 6.0 5.0-8.0 N [facility] HospitalRkqvuirTMOLEVFGHG0014-49-60 20:32:00 Test Item Value Reference Range Interpretation Comments UA Spec Grav (test code = UA Spec Grav) 1.016 N [facility] HospitalPlpwjhsGYZNIVSVMJ3424-97-91 20:32:00 Test Item Value Reference Range Interpretation Comments UA Turbidity (test code Slight A = UA Turbidity) *ABN*(11/26/2012 14:32:00) [facility]HguuppbRJGNHKZXRA9408-92-[facility] 20:32:00 Test Item Value Reference Range Interpretation Comments UA Glucose (test code Negative mg/dL = UA Glucose) *NA*(11/26/2012 14:32:00) [facility]FzmofrhHNQSPFZRF7169-76-64 20:32:00 Test Item Value Reference Range Interpretation Comments A/G Ratio (test code = A/G Ratio) 0.9 0.7-1.6 N [facility] CenterOvabertQQBLIEAZO0983-23-78 20:32:00 Test Item Value Reference Range Interpretation Comments Globulin (test code = Globulin) 4.4 2.0-4.0 H [facility] CenterTnsoljnJFSWWMAEX3863-58-92 20:32:00 Test Item Value Reference Range Interpretation Comments AGAP (test code = AGAP) 13.0 10.0-20.0 N [facility] CenterZcpzsybABMUUOILB1700-28-27 20:32:00 Test Item Value Reference Range Interpretation Comments B/C Ratio (test code = B/C Ratio) 18 6-25 N [facility] CenterIwfucrfOIQMKUTAB1044-78-42 20:32:00 Test Item Value Reference Range Interpretation Comments AST (test code = AST) 24 See_Comment N [Auto mated message] The system which ge nerated this result transmit ashanti reference range : <=37. The reference range was not used to interpr et this result as carmen l/abnormal. [facility] CenterTftahqhXMZNYEXJY4497-44-17 20:32:00 Test Item Value Reference Range Interpretation Comments Bili Total (test code = Bili Total) 0.5 0.2-1.3 N [facility] CenterTimwbdnMVFXZXBJJ0271-21-64 20:32:00 Test Item Value Reference Range Interpretation Comments Alk Phos (test code = Alk Phos) 98 39-136 N [facility] CenterAgfsbayYQQUTQTNN9108-90-73 20:32:00 Test Item Value Reference Range Interpretation Comments ALT (test code = ALT) 37 See_Comment N [Auto mated message] The system which ge nerated this result transmit ashanti reference range : <=65. The reference range was not used to interpr et this result as carmen l/abnormal. [facility] CenterGvfandkTKKRZFBDQ7293-20-59 20:32:00 Test Item Value Reference Range Interpretation Comments Total Protein (test code = Total 8.5 6.4-8.4 H Protein) [facility] CenterPwghjlrTRORETSOA8877-47-21 20:32:00 Test Item Value Reference Range Interpretation Comments eGFR (test code = eGFR) 128 [facility] CenterQkzslmbQKKNRTCGJ3760-00-53 20:32:00 Test Item Value Reference Range Interpretation Comments Albumin Lvl (test code = Albumin Lvl) 4.1 3.5-5.0 N [facility] CenterFakfikuSNCUKYVVM4435-10-80 20:32:00 Test Item Value Reference Range Interpretation Comments Chloride Lvl (test code = Chloride Lvl) 100 95-109 N [facility] CenterLcvkmvhMTUXDZLKQ1677-99-90 20:32:00 Test Item Value Reference Range Interpretation Comments Potassium Lvl (test code = Potassium 4.0 3.5-5.1 N Lvl) [facility] CenterYglfstsYAKDCHVWR7227-41-41 20:32:00 Test Item Value Reference Range Interpretation Comments CO2 (test code = CO2) 28 24-32 N [facility] CenterRefvbgdXKAGNKKNE9449-30-75 20:32:00 Test Item Value Reference Range Interpretation Comments Sodium Lvl (test code = Sodium Lvl) 137 135-145 N [facility] CenterJqprngxPQLXAIDWO4729-78-27 20:32:00 Test Item Value Reference Range Interpretation Comments Calcium Lvl (test code = Calcium Lvl) 9.1 8.5-10.5 N [facility] CenterDxkqosbSUODJCBWQ8026-90-39 20:32:00 Test Item Value Reference Range Interpretation Comments Creatinine Lvl (test code = Creatinine 0.5 0.5-1.4 N Lvl) [facility] CenterJmtoegxKHYKOLZXY2779-01-50 20:32:00 Test Item Value Reference Range Interpretation Comments Glucose Lvl (test code = Glucose Lvl) 81 70-99 N [facility] CenterQatxgjdXMOINGTMG9825-75-23 20:32:00 Test Item Value Reference Range Interpretation Comments BUN (test code = BUN) 9 7-22 N [facility] CenterGldebfgMZJFFKSMR5965-75-31 20:32:00 Test Item Value Reference Range Interpretation Comments Vitamin D 1,25 (OH)2 Total (test code = 52 18-72 Vitamin D 1,25 (OH)2 Total) [facility] CenterBxkljdmHVAVAHAVQ3594-22-88 20:32:00 Test Item Value Reference Range Interpretation Comments Vitamin D2 1,25 (OH)2 (test code = no gt Vitamin D2 1,25 (OH)2) [facility] CenterOzqqgkvZRLOQIKVD3548-30-57 20:32:00 Test Item Value Reference Range Interpretation Comments Vitamin D3 1,25 (OH)2 (test code = 52 Vitamin D3 1,25 (OH)2) [facility] CenterKgfvkfrILLUDYEQCC0918-23-54 20:32:00 Test Item Value Reference Range Interpretation Comments MPV (test code = MPV) 8.7 7.4-10.4 N [facility] CenterWftvwedYXZISFVOMI7295-50-26 20:32:00 Test Item Value Reference Range Interpretation Comments Hgb (test code = Hgb) 12.0 12.0-16.0 N [facility] CenterUwuoiktPOKCMPRCAF0162-82-80 20:32:00 Test Item Value Reference Range Interpretation Comments RBC (test code = RBC) 4.51 4.20-5.40 N [facility] CenterQjubkqtMAPFCOAEEZ0686-66-49 20:32:00 Test Item Value Reference Range Interpretation Comments WBC (test code = WBC) 15.6 3.7-10.4 H [facility] CenterQaowawfYATVDLNCZL3854-04-49 20:32:00 Test Item Value Reference Range Interpretation Comments Hct (test code = Hct) 37.0 36.0-48.0 N [facility] CenterKfcmbglMCZKBHMNRF6810-50-96 20:32:00 Test Item Value Reference Range Interpretation Comments MCV (test code = MCV) 82.0 81.0-99.0 N [facility] CenterOesclmaMHSBNQHURA1348-41-50 20:32:00 Test Item Value Reference Range Interpretation Comments RDW (test code = RDW) 15.9 11.5-14.5 H [facility] CenterHsovcrqGPMMKCIGNB3408-79-45 20:32:00 Test Item Value Reference Range Interpretation Comments MCHC (test code = MCHC) 32.3 32.0-36.0 N [facility] CenterOnwonytMXOHMIOMSS0475-78-81 20:32:00 Test Item Value Reference Range Interpretation Comments MCH (test code = MCH) 26.5 pg 27.0-31.0 L [facility] CenterAywlipwILSXRNJTCG1287-04-40 20:32:00 Test Item Value Reference Range Interpretation Comments Platelet (test code = Platelet) 371 133-450 N [facility] CenterShebanmQOGOKVNTMQ6936-32-11 20:32:00 Test Item Value Reference Range Interpretation Comments Polychrom (test code = Slight (11/26/2012 N Polychrom) 14:32:00) [facility] CenterPgqudewFXOFJKZLUW2538-97-06 20:32:00 Test Item Value Reference Range Interpretation Comments Large Plt (test code = Slight *ABN*(11/26/2012 A Large Plt) 14:32:00) [facility] CenterYgvcniqVFRPUBEWSC9919-33-25 20:32:00 Test Item Value Reference Range Interpretation Comments Segs (test code = Segs) 73.0 45.0-75.0 N [facility] CenterXxamwdkWVYZJBBUIK5573-89-60 20:32:00 Test Item Value Reference Range Interpretation Comments Eosinophils # (test code 0.2 See_Comment N [A utomated message] The = Eosinophils #) system whic h generated this result tra nsmitted reference range : <=0.5. The reference r megan was not used to int erpret this result as normal/abnormal . [facility] CenterMhzhnrtWYWMZJWUGK4164-13-94 20:32:00 Test Item Value Reference Range Interpretation Comments Basophils # (test code 0.1 See_Comment N [Aut omated message] The = Basophils #) system which generated this result tra nsmitted reference range : <=0.2. The reference r megan was not used to int erpret this result as normal/abnormal . [facility] CenterXpsglnfPMFAVOZUKJ4158-42-44 20:32:00 Test Item Value Reference Range Interpretation Comments Lymphocytes (test code = Lymphocytes) 21.3 20.0-40.0 N [facility] CenterXzhyzjaMBABMQNPRI9263-21-15 20:32:00 Test Item Value Reference Range Interpretation Comments Segs-Bands # (test code = Segs-Bands #) 11.4 1.5-8.1 H [facility] CenterQaxgeeqCMNZZAQKRX2001-28-97 20:32:00 Test Item Value Reference Range Interpretation Comments Eosinophils (test code = 1.1 See_Comment N [A utomated message] The Eosinophils) system which ge nerated this result tra nsmitted reference range : <=4.0. The reference r megan was not used to int erpret this result as normal/abnormal . [facility] CenterDfcanltFOPQCRPGAJ3064-90-27 20:32:00 Test Item Value Reference Range Interpretation Comments Basophils (test code = 0.5 See_Comment N [Aut omated message] The Basophils) system which ge nerated this result tra nsmitted reference range : <=1.0. The reference r megan was not used to int erpret this result as normal/abnormal . [facility] CenterNhzkbekOBCYBBMVGH5704-93-08 20:32:00 Test Item Value Reference Range Interpretation Comments Monocytes (test code = Monocytes) 4.1 2.0-12.0 N [facility] CenterPldeqkiOIFGGHJPNV0326-51-45 20:32:00 Test Item Value Reference Range Interpretation Comments Lymphocytes # (test code = Lymphocytes 3.3 1.0-5.5 N #) [facility] CenterGvvdciaUCVISSKZVC5300-88-93 20:32:00 Test Item Value Reference Range Interpretation Comments Monocytes # (test code 0.6 See_Comment N [Aut omated message] The = Monocytes #) system which generated this result tra nsmitted reference range : <=0.8. The reference r megan was not used to int erpret this result as normal/abnormal . [facility] CenterVpttusiNZLYJEHEYP5401-28-10 20:32:00 Test Item Value Reference Range Interpretation Comments PTT (test code = PTT) 28.5 s 22.9-35.8 N [facility] CenterKvghmikMFAQFOAFSC3698-13-09 20:32:00 Test Item Value Reference Range Interpretation Comments PT (test code = PT) 12.9 s 12.0-14.7 N [facility] CenterFbcxffcGGJKDFSBZC5841-42-36 20:32:00 Test Item Value Reference Range Interpretation Comments INR (test code = INR) 0.95 0.85-1.17 N [facility]ZgsjmyvWFNXMFEUHP8106-18-86 20:32:00 Test Item Value Reference Range Interpretation Comments UA Urobilinogen (test code *NA*(11/26/2012 0.1-1.0 = UA Urobilinogen) 14:32:00) [facility]TguxdtvRXMEFQMIOW4533-43-58 20:32:00 Test Item Value Reference Range Interpretation Comments UA Bacteria (test code Occasional /HPF = UA Bacteria) *NA*(11/26/2012 14:32:00) [facility]rttycnQDBERJGSWB1234-25-68 20:32:00 Test Item Value Reference Range Interpretation Comments UA RBC (test code = 1 See_Comment N [Automa ashanti message] The UA RBC) system which ge nerated this result transmit ashanti reference range : <=2. The reference range was not used to interpr et this result as carmen l/abnormal. [facility] HospitalYeowjuqWHIRIWFOXC1643-34-84 20:32:00 Test Item Value Reference Range Interpretation Comments UA WBC (test code = 3 See_Comment N [Automa ashanti message] The UA WBC) system which ge nerated this result transmit ashanti reference range : <=5. The reference range was not used to interpr et this result as carmen l/abnormal. [facility] HospitalEjruzgtUDOBJDCHRQ6926-56-81 20:32:00 Test Item Value Reference Range Interpretation Comments UA Sq Epi (test code = Many /LPF A UA Sq Epi) *ABN*(11/26/2012 14:32:00) [facility]WwxgudmJTNBEOVGMJ3582-37-77 20:32:00 Test Item Value Reference Range Interpretation Comments Micro? (test code = Performed *NA*(11/26/2012 Micro?) 14:32:00) [facility]OcdwrgmSZODCIPTDC1705-32-34 20:32:00 Test Item Value Reference Range Interpretation Comments UA Mucus (test code = Few /LPF UA Mucus) *NA*(11/26/2012 14:32:00) [facility] HospitalAbbhikuRVGLXHXWKQ7607-26-31 20:32:00 Test Item Value Reference Range Interpretation Comments UA Bili (test code = Negative *NA*(11/26/2012 UA Bili) 14:32:00) [facility]ZfnmcgrXPYDAIYPFL5238-57-67 20:32:00 Test Item Value Reference Range Interpretation Comments UA Ketones (test code Negative mg/dL = UA Ketones) *NA*(11/26/2012 14:32:00) [facility] HospitalExpzzryQADCPJQAU1940-09-87 20:32:00 Test Item Value Reference Range Interpretation Comments A/G Ratio (test code = A/G Ratio) 0.9 0.7-1.6 N [facility] HospitalGscffevKGFVVPBRSF9786-59-42 20:32:00 Test Item Value Reference Range Interpretation Comments UA Protein (test code Negative mg/dL N = UA Protein) (11/26/2012 14:32:00) [facility] HospitalMhlwaprYVPUCYIGZQ1464-53-32 20:32:00 Test Item Value Reference Range Interpretation Comments UA Leuk Est (test code Trace *ABN*(11/26/2012 A = UA Leuk Est) 14:32:00) [facility] HospitalFxokzhoESZJLSXPXL4872-59-68 20:32:00 Test Item Value Reference Range Interpretation Comments UA Nitrite (test code Negative (11/26/2012 N = UA Nitrite) 14:32:00) [facility] HospitalZrjxyfkBRUKZACHGM8394-90-49 20:32:00 Test Item Value Reference Range Interpretation Comments UA Blood (test code = Negative (11/26/2012 N UA Blood) 14:32:00) [facility] HospitalPiflvzjNBCSJRBNQL8860-69-72 20:32:00 Test Item Value Reference Range Interpretation Comments UA Color (test code = Yellow *NA*(11/26/2012 UA Color) 14:32:00) [facility] HospitalVlfkimvKGUTSIIAOH2833-55-21 20:32:00 Test Item Value Reference Range Interpretation Comments UA pH (test code = UA pH) 6.0 5.0-8.0 N [facility] HospitalEpdkxxuYTMPRZHHNQ5364-22-28 20:32:00 Test Item Value Reference Range Interpretation Comments UA Spec Grav (test code = UA Spec Grav) 1.016 N [facility] HospitalZbrgwusOTFMZDFGWE5262-68-96 20:32:00 Test Item Value Reference Range Interpretation Comments UA Turbidity (test code Slight A = UA Turbidity) *ABN*(11/26/2012 14:32:00) [facility] HospitalYkrcsmgCKYARGGNMC1620-06-09 20:32:00 Test Item Value Reference Range Interpretation Comments UA Glucose (test code Negative mg/dL = UA Glucose) *NA*(11/26/2012 14:32:00) [facility] CenterKlkcnqlCPTXWGIRV4253-64-16 20:32:00 Test Item Value Reference Range Interpretation Comments Globulin (test code = Globulin) 4.4 2.0-4.0 H [facility] CenterZswqhjaEQIOMDIEP3898-90-21 20:32:00 Test Item Value Reference Range Interpretation Comments AGAP (test code = AGAP) 13.0 10.0-20.0 N [facility] CenterEydlnkbLERAPRQUN9532-86-95 20:32:00 Test Item Value Reference Range Interpretation Comments B/C Ratio (test code = B/C Ratio) 18 6-25 N [facility] CenterMmnoivjVGLWJFMQC8271-07-12 20:32:00 Test Item Value Reference Range Interpretation Comments AST (test code = AST) 24 See_Comment N [Auto mated message] The system which ge nerated this result transmit ashanti reference range : <=37. The reference range was not used to interpr et this result as carmen l/abnormal. [facility] AexnrbwJHFZIVZYY3666-41-73 20:32:00 Test Item Value Reference Range Interpretation Comments Bili Total (test code = Bili Total) 0.5 0.2-1.3 N [facility] FvphcqaENCRZXOKZ9779-24-99 20:32:00 Test Item Value Reference Range Interpretation Comments Alk Phos (test code = Alk Phos) 98 39-136 N [facility] MemuaetWBDTQNRHL7717-76-92 20:32:00 Test Item Value Reference Range Interpretation Comments ALT (test code = ALT) 37 See_Comment N [Auto mated message] The system which ge nerated this result transmit ashanti reference range : <=65. The reference range was not used to interpr et this result as carmen l/abnormal. [facility] HkdpndgYKRKOHBHA0892-79-12 20:32:00 Test Item Value Reference Range Interpretation Comments Total Protein (test code = Total 8.5 6.4-8.4 H Protein) [facility] CenterFbsgmiyWHCKEDONB5553-63-19 20:32:00 Test Item Value Reference Range Interpretation Comments eGFR (test code = eGFR) 128 [facility] CenterWrndwwxKLGEXTITZ7561-16-44 20:32:00 Test Item Value Reference Range Interpretation Comments Albumin Lvl (test code = Albumin Lvl) 4.1 3.5-5.0 N [facility] CfpookpJZYTYQHZF5780-26-84 20:32:00 Test Item Value Reference Range Interpretation Comments Chloride Lvl (test code = Chloride Lvl) 100 95-109 N [facility] RitqzhdANZCRVROU3852-59-46 20:32:00 Test Item Value Reference Range Interpretation Comments A/G Ratio (test code = A/G Ratio) 0.9 0.7-1.6 N [facility] NjaoclnFRAMPUVMD3532-25-15 20:32:00 Test Item Value Reference Range Interpretation Comments Globulin (test code = Globulin) 4.4 2.0-4.0 H [facility] CenterClycalmTQSAERBVJ0127-74-13 20:32:00 Test Item Value Reference Range Interpretation Comments AGAP (test code = AGAP) 13.0 10.0-20.0 N [facility] CenterSsytmifHYQHVPLIS1048-39-15 20:32:00 Test Item Value Reference Range Interpretation Comments B/C Ratio (test code = B/C Ratio) 18 6-25 N [facility] CenterGnieeidJQGNTOHIN6458-16-52 20:32:00 Test Item Value Reference Range Interpretation Comments Potassium Lvl (test code = Potassium 4.0 3.5-5.1 N Lvl) [facility] CenterWraxmxcBKSLNURND1866-28-66 20:32:00 Test Item Value Reference Range Interpretation Comments AST (test code = AST) 24 See_Comment N [Auto mated message] The system which ge nerated this result transmit ashanti reference range : <=37. The reference range was not used to interpr et this result as carmen l/abnormal. [facility] CenterIbgmasoPXCQVFAYY4441-45-83 20:32:00 Test Item Value Reference Range Interpretation Comments Bili Total (test code = Bili Total) 0.5 0.2-1.3 N [facility] CenterUgfmbcqNLVYMWTWD1151-04-67 20:32:00 Test Item Value Reference Range Interpretation Comments Alk Phos (test code = Alk Phos) 98 39-136 N [facility] CenterDuapdwhYEOECNIZV9405-82-66 20:32:00 Test Item Value Reference Range Interpretation Comments ALT (test code = ALT) 37 See_Comment N [Auto mated message] The system which ge nerated this result transmit ashanti reference range : <=65. The reference range was not used to interpr et this result as carmen l/abnormal. [facility] CenterOoprmlzCCYAQIUCK4187-20-99 20:32:00 Test Item Value Reference Range Interpretation Comments Total Protein (test code = Total 8.5 6.4-8.4 H Protein) [facility] CenterYsciacxIVZFQTWNX9230-61-69 20:32:00 Test Item Value Reference Range Interpretation Comments eGFR (test code = eGFR) 128 [facility] CenterHfmlzjwMLHONMFDX5419-03-65 20:32:00 Test Item Value Reference Range Interpretation Comments Albumin Lvl (test code = Albumin Lvl) 4.1 3.5-5.0 N [facility] CenterWflzcanZOQCJLYCZ1993-61-64 20:32:00 Test Item Value Reference Range Interpretation Comments Chloride Lvl (test code = Chloride Lvl) 100 95-109 N [facility] CenterLzzfvjyKCMDHHGOW1201-99-60 20:32:00 Test Item Value Reference Range Interpretation Comments Potassium Lvl (test code = Potassium 4.0 3.5-5.1 N Lvl) [facility] CenterKhvfvzpETDUJLBNC8834-95-82 20:32:00 Test Item Value Reference Range Interpretation Comments CO2 (test code = CO2) 28 24-32 N [facility] CenterJwxnvexQYTAXGINC0575-56-95 20:32:00 Test Item Value Reference Range Interpretation Comments CO2 (test code = CO2) 28 24-32 N [facility] CenterVhpqydnNKEWDHOSY7500-71-92 20:32:00 Test Item Value Reference Range Interpretation Comments Sodium Lvl (test code = Sodium Lvl) 137 135-145 N [facility] CenterWwhhsaoECNORSPFW7928-49-41 20:32:00 Test Item Value Reference Range Interpretation Comments Calcium Lvl (test code = Calcium Lvl) 9.1 8.5-10.5 N [facility] CenterWviekvpXDHGWGVTM5992-09-45 20:32:00 Test Item Value Reference Range Interpretation Comments Creatinine Lvl (test code = Creatinine 0.5 0.5-1.4 N Lvl) [facility] CenterHtwrmqeXMUJCUMLZ8833-88-66 20:32:00 Test Item Value Reference Range Interpretation Comments Glucose Lvl (test code = Glucose Lvl) 81 70-99 N [facility] CenterVlreenhTUEJJBZZJ8218-19-75 20:32:00 Test Item Value Reference Range Interpretation Comments BUN (test code = BUN) 9 7-22 N [facility] CenterJfozqbzXUVIPEUOL0317-51-97 20:32:00 Test Item Value Reference Range Interpretation Comments Vitamin D 1,25 (OH)2 Total (test code = 52 18-72 Vitamin D 1,25 (OH)2 Total) [facility] CenterGvildgdZJUQMBLXM4180-18-07 20:32:00 Test Item Value Reference Range Interpretation Comments Vitamin D2 1,25 (OH)2 (test code = no gt Vitamin D2 1,25 (OH)2) [facility] CenterToqmwmjDQZBVXKYW4125-28-83 20:32:00 Test Item Value Reference Range Interpretation Comments Vitamin D3 1,25 (OH)2 (test code = 52 Vitamin D3 1,25 (OH)2) [facility]NuyfehoVUJTZEKJAL7360-69-29 20:32:00 Test Item Value Reference Range Interpretation Comments MPV (test code = MPV) 8.7 7.4-10.4 N [facility] CenterOmgsklgFZNHRKYZHB4504-47-15 20:32:00 Test Item Value Reference Range Interpretation Comments Hgb (test code = Hgb) 12.0 12.0-16.0 N [facility] CenterUgyxtqlWJNXBUXVA2674-75-55 20:32:00 Test Item Value Reference Range Interpretation Comments Sodium Lvl (test code = Sodium Lvl) 137 135-145 N [facility] CenterOdstvtvTPUYMQBFLJ7118-96-52 20:32:00 Test Item Value Reference Range Interpretation Comments RBC (test code = RBC) 4.51 4.20-5.40 N [facility] CenterLgqzdltMFOUOBWZJS4653-14-82 20:32:00 Test Item Value Reference Range Interpretation Comments WBC (test code = WBC) 15.6 3.7-10.4 H [facility] CenterXbabzvcQGQEITGBLA4616-67-81 20:32:00 Test Item Value Reference Range Interpretation Comments Hct (test code = Hct) 37.0 36.0-48.0 N [facility] CenterWzpcdpeDXHMEUODIH6872-88-47 20:32:00 Test Item Value Reference Range Interpretation Comments MCV (test code = MCV) 82.0 81.0-99.0 N [facility] CenterDbfhgpsTZWJISZXZC3765-50-98 20:32:00 Test Item Value Reference Range Interpretation Comments RDW (test code = RDW) 15.9 11.5-14.5 H [facility] CenterEjhfcfwIQXUQVVVHG1180-60-00 20:32:00 Test Item Value Reference Range Interpretation Comments MCHC (test code = MCHC) 32.3 32.0-36.0 N [facility] CenterRzgtiefQORLXKDIKR8089-56-98 20:32:00 Test Item Value Reference Range Interpretation Comments MCH (test code = MCH) 26.5 pg 27.0-31.0 L [facility] CenterVjrbhggGNIHXZTQWA1289-45-55 20:32:00 Test Item Value Reference Range Interpretation Comments Platelet (test code = Platelet) 371 133-450 N [facility] CenterIfremmfCAICPGCBMV4503-12-30 20:32:00 Test Item Value Reference Range Interpretation Comments Polychrom (test code = Slight (11/26/2012 N Polychrom) 14:32:00) [facility] CenterWfmqqlnSHHFDPPMHD8599-07-06 20:32:00 Test Item Value Reference Range Interpretation Comments Large Plt (test code = Slight *ABN*(11/26/2012 A Large Plt) 14:32:00) [facility] CenterExsfeqqNBVTUESBA9490-09-67 20:32:00 Test Item Value Reference Range Interpretation Comments Calcium Lvl (test code = Calcium Lvl) 9.1 8.5-10.5 N [facility] CenterRsmeebmBJCOOFMLKP1993-03-87 20:32:00 Test Item Value Reference Range Interpretation Comments Segs (test code = Segs) 73.0 45.0-75.0 N [facility] CenterNflblvrCUTDDVMRDA3048-64-18 20:32:00 Test Item Value Reference Range Interpretation Comments Eosinophils # (test code 0.2 See_Comment N [A utomated message] The = Eosinophils #) system whic h generated this result tra nsmitted reference range : <=0.5. The reference r megan was not used to int erpret this result as normal/abnormal . [facility] CenterKezvsgvGBCNDKDNNG1505-24-98 20:32:00 Test Item Value Reference Range Interpretation Comments Basophils # (test code 0.1 See_Comment N [Aut omated message] The = Basophils #) system which generated this result tra nsmitted reference range : <=0.2. The reference r megan was not used to int erpret this result as normal/abnormal . [facility] CenterVhapiuxZGYMENZSVZ4768-47-60 20:32:00 Test Item Value Reference Range Interpretation Comments Lymphocytes (test code = Lymphocytes) 21.3 20.0-40.0 N [facility] CenterWylcoouJIBZTRSGBB4523-12-50 20:32:00 Test Item Value Reference Range Interpretation Comments Segs-Bands # (test code = Segs-Bands #) 11.4 1.5-8.1 H [facility] CenterZrciwgxYREKNLJPED2158-25-89 20:32:00 Test Item Value Reference Range Interpretation Comments Eosinophils (test code = 1.1 See_Comment N [A utomated message] The Eosinophils) system which ge nerated this result tra nsmitted reference range : <=4.0. The reference r megan was not used to int erpret this result as normal/abnormal . [facility] CenterYmwlkinJOPSMZVEGC1914-98-08 20:32:00 Test Item Value Reference Range Interpretation Comments Basophils (test code = 0.5 See_Comment N [Aut omated message] The Basophils) system which ge nerated this result tra nsmitted reference range : <=1.0. The reference r megan was not used to int erpret this result as normal/abnormal . [facility] CenterQdsriatUZMCZXQKFD8561-64-96 20:32:00 Test Item Value Reference Range Interpretation Comments Monocytes (test code = Monocytes) 4.1 2.0-12.0 N [facility] CenterJbdjsmgXWHJNUSVND2978-42-13 20:32:00 Test Item Value Reference Range Interpretation Comments Lymphocytes # (test code = Lymphocytes 3.3 1.0-5.5 N #) [facility] CenterAtayuxaTDBHYMCAFZ2476-91-84 20:32:00 Test Item Value Reference Range Interpretation Comments Monocytes # (test code 0.6 See_Comment N [Aut omated message] The = Monocytes #) system which generated this result tra nsmitted reference range : <=0.8. The reference r megan was not used to int erpret this result as normal/abnormal . [facility] CenterDiznftmFNXKDCAIA9334-49-70 20:32:00 Test Item Value Reference Range Interpretation Comments Creatinine Lvl (test code = Creatinine 0.5 0.5-1.4 N Lvl) [facility] CenterRpuxjthBBYJLEOLMG3824-47-66 20:32:00 Test Item Value Reference Range Interpretation Comments PTT (test code = PTT) 28.5 s 22.9-35.8 N [facility] CenterQjuiouiJDBGPQBMWY6213-25-73 20:32:00 Test Item Value Reference Range Interpretation Comments PT (test code = PT) 12.9 s 12.0-14.7 N [facility] CenterEdcpnlrLGQRZAZXHE8536-47-03 20:32:00 Test Item Value Reference Range Interpretation Comments INR (test code = INR) 0.95 0.85-1.17 N [facility]EoognlzAAMEPEEFOY4891-93-90 20:32:00 Test Item Value Reference Range Interpretation Comments UA Urobilinogen (test code *NA*(11/26/2012 0.1-1.0 = UA Urobilinogen) 14:32:00) [facility] HospitalXcneczePDDGWIYWEW0689-02-76 20:32:00 Test Item Value Reference Range Interpretation Comments UA Bacteria (test code Occasional /HPF = UA Bacteria) *NA*(11/26/2012 14:32:00) [facility] HospitalGxlkqezGYNGLMWRGE2238-94-78 20:32:00 Test Item Value Reference Range Interpretation Comments UA RBC (test code = 1 See_Comment N [Automa ashanti message] The UA RBC) system which ge nerated this result transmit ashanti reference range : <=2. The reference range was not used to interpr et this result as carmen l/abnormal. [facility]KzpjzubNOKTZOUQOB6846-11-62 20:32:00 Test Item Value Reference Range Interpretation Comments UA WBC (test code = 3 See_Comment N [Automa ashanti message] The UA WBC) system which ge nerated this result transmit ashanti reference range : <=5. The reference range was not used to interpr et this result as carmen l/abnormal. [facility]JgolccuFPMFBSGMQI9605-02-07 20:32:00 Test Item Value Reference Range Interpretation Comments UA Sq Epi (test code = Many /LPF A UA Sq Epi) *ABN*(11/26/2012 14:32:00) [facility]JqjvksbUPMMYQJWFL7015-01-77 20:32:00 Test Item Value Reference Range Interpretation Comments Micro? (test code = Performed *NA*(11/26/2012 Micro?) 14:32:00) [facility]HuqxamzOPBPZHGAJO1277-38-96 20:32:00 Test Item Value Reference Range Interpretation Comments UA Mucus (test code = Few /LPF UA Mucus) *NA*(11/26/2012 14:32:00) [facility] HospitalUqebyxfHQVDSSDLB1610-04-78 20:32:00 Test Item Value Reference Range Interpretation Comments Glucose Lvl (test code = Glucose Lvl) 81 70-99 N [facility] HospitalWrypfmyKMIEQSJHKL3346-93-29 20:32:00 Test Item Value Reference Range Interpretation Comments UA Bili (test code = Negative *NA*(11/26/2012 UA Bili) 14:32:00) [facility] HospitalXnwhlysCZOIQXKAXJ0820-03-29 20:32:00 Test Item Value Reference Range Interpretation Comments UA Ketones (test code Negative mg/dL = UA Ketones) *NA*(11/26/2012 14:32:00) [facility]anoYjeerlsPMCBILLKKJ5318-66-00 20:32:00 Test Item Value Reference Range Interpretation Comments UA Protein (test code Negative mg/dL N = UA Protein) (11/26/2012 14:32:00) [facility]YyezeeaBWTDJGZGNH5564-07-11 20:32:00 Test Item Value Reference Range Interpretation Comments UA Leuk Est (test code Trace *ABN*(11/26/2012 A = UA Leuk Est) 14:32:00) [facility]JekltjpAWELRVKNYD3410-62-88 20:32:00 Test Item Value Reference Range Interpretation Comments UA Nitrite (test code Negative (11/26/2012 N = UA Nitrite) 14:32:00) [facility] HospitalYwygasnSBWOYLDEDT0664-34-66 20:32:00 Test Item Value Reference Range Interpretation Comments UA Blood (test code = Negative (11/26/2012 N UA Blood) 14:32:00) [facility] HospitalCnztxeaESONBBOPQP7627-41-13 20:32:00 Test Item Value Reference Range Interpretation Comments UA Color (test code = Yellow *NA*(11/26/2012 UA Color) 14:32:00) [facility] HospitalNqaobjdYQYGSOXXHB4608-78-96 20:32:00 Test Item Value Reference Range Interpretation Comments UA pH (test code = UA pH) 6.0 5.0-8.0 N [facility] HospitalCfitgxtEWQNLIUTXK0394-77-94 20:32:00 Test Item Value Reference Range Interpretation Comments UA Spec Grav (test code = UA Spec Grav) 1.016 N [facility] HospitalGtqnvjqEVLPKMQZYI3272-71-51 20:32:00 Test Item Value Reference Range Interpretation Comments UA Turbidity (test code Slight A = UA Turbidity) *ABN*(11/26/2012 14:32:00) [facility] CenterMslprfqRZSHCSRFA2939-67-45 20:32:00 Test Item Value Reference Range Interpretation Comments BUN (test code = BUN) 9 7-22 N [facility] HospitalZopjqmbTPCNCYJUEI0810-18-09 20:32:00 Test Item Value Reference Range Interpretation Comments UA Glucose (test code Negative mg/dL = UA Glucose) *NA*(11/26/2012 14:32:00) [facility] CenterBguguejHPXVMZDLH0601-94-33 20:32:00 Test Item Value Reference Range Interpretation Comments Vitamin D 1,25 (OH)2 Total (test code = 52 18-72 Vitamin D 1,25 (OH)2 Total) [facility] CenterOgfnkxpDPCGZAFMN9663-93-50 20:32:00 Test Item Value Reference Range Interpretation Comments Vitamin D2 1,25 (OH)2 (test code = no gt Vitamin D2 1,25 (OH)2) [facility] CenterQlfutyuSDBZESYLU7496-50-22 20:32:00 Test Item Value Reference Range Interpretation Comments Vitamin D3 1,25 (OH)2 (test code = 52 Vitamin D3 1,25 (OH)2) [facility] CenterUcigaquXYOGXIPDJH5721-89-68 20:32:00 Test Item Value Reference Range Interpretation Comments MPV (test code = MPV) 8.7 7.4-10.4 N [facility] CenterGlmkfcuOHJYHYOSFS6148-56-85 20:32:00 Test Item Value Reference Range Interpretation Comments Hgb (test code = Hgb) 12.0 12.0-16.0 N [facility] CenterMgrbaquZZVDKIDWUV0163-05-25 20:32:00 Test Item Value Reference Range Interpretation Comments RBC (test code = RBC) 4.51 4.20-5.40 N [facility] CenterWwbrzmcSGKFTCAAUJ9672-07-95 20:32:00 Test Item Value Reference Range Interpretation Comments WBC (test code = WBC) 15.6 3.7-10.4 H [facility] CenterJloetseVENNBYFTLO0661-61-38 20:32:00 Test Item Value Reference Range Interpretation Comments Hct (test code = Hct) 37.0 36.0-48.0 N [facility] CenterHsdlvjtVNXXHOSGIA8237-30-67 20:32:00 Test Item Value Reference Range Interpretation Comments MCV (test code = MCV) 82.0 81.0-99.0 N [facility] CenterKmzrgeuXKMCOTIMQU1238-67-39 20:32:00 Test Item Value Reference Range Interpretation Comments RDW (test code = RDW) 15.9 11.5-14.5 H [facility] CenterYhmoihoOQXDBJOQZ1166-64-59 20:32:00 Test Item Value Reference Range Interpretation Comments A/G Ratio (test code = A/G Ratio) 0.9 0.7-1.6 N [facility] CenterHvwyxmtRCXXTNKPR9849-54-49 20:32:00 Test Item Value Reference Range Interpretation Comments Globulin (test code = Globulin) 4.4 2.0-4.0 H [facility] CenterMrflbfjLZCWAWCXGU8491-88-25 20:32:00 Test Item Value Reference Range Interpretation Comments MCHC (test code = MCHC) 32.3 32.0-36.0 N [facility] CenterXzitxpbKCWMYJJTT2756-93-87 20:32:00 Test Item Value Reference Range Interpretation Comments AGAP (test code = AGAP) 13.0 10.0-20.0 N [facility] CenterKyqyzdyPNAIXIWAB9433-56-99 20:32:00 Test Item Value Reference Range Interpretation Comments B/C Ratio (test code = B/C Ratio) 18 6-25 N [facility] CenterNlixadvVXOBWJCLZ5754-25-98 20:32:00 Test Item Value Reference Range Interpretation Comments AST (test code = AST) 24 See_Comment N [Auto mated message] The system which ge nerated this result transmit ashanti reference range : <=37. The reference range was not used to interpr et this result as carmen l/abnormal. [facility] CenterAeafomgTRZDXWTBC3046-77-65 20:32:00 Test Item Value Reference Range Interpretation Comments Bili Total (test code = Bili Total) 0.5 0.2-1.3 N [facility] CenterLkmsijoVATQHZOFI7659-24-41 20:32:00 Test Item Value Reference Range Interpretation Comments Alk Phos (test code = Alk Phos) 98 39-136 N [facility] CenterAzetkqgNWLCTSTDY3895-20-34 20:32:00 Test Item Value Reference Range Interpretation Comments ALT (test code = ALT) 37 See_Comment N [Auto mated message] The system which ge nerated this result transmit ashanti reference range : <=65. The reference range was not used to interpr et this result as carmen l/abnormal. [facility] CenterNspyjgkPLWYVOQLR2193-38-06 20:32:00 Test Item Value Reference Range Interpretation Comments Total Protein (test code = Total 8.5 6.4-8.4 H Protein) [facility] CenterJwcarsrBSCBWVRWR7900-57-11 20:32:00 Test Item Value Reference Range Interpretation Comments eGFR (test code = eGFR) 128 [facility] CenterBglmebnGZKNNTJYY8980-62-94 20:32:00 Test Item Value Reference Range Interpretation Comments Albumin Lvl (test code = Albumin Lvl) 4.1 3.5-5.0 N [facility] CenterOpymrxbOIMYVYQNQ7338-92-65 20:32:00 Test Item Value Reference Range Interpretation Comments Chloride Lvl (test code = Chloride Lvl) 100 95-109 N [facility] CenterUlwcnuuAFBJJRUYUT0053-67-50 20:32:00 Test Item Value Reference Range Interpretation Comments MCH (test code = MCH) 26.5 pg 27.0-31.0 L [facility] CenterEhowaayVVLPVSMXL6215-91-26 20:32:00 Test Item Value Reference Range Interpretation Comments Potassium Lvl (test code = Potassium 4.0 3.5-5.1 N Lvl) [facility] CenterEfekwkoBCZIBSYOF0348-86-55 20:32:00 Test Item Value Reference Range Interpretation Comments CO2 (test code = CO2) 28 24-32 N [facility] CenterQfwlfvwOWWOABNPH7545-43-36 20:32:00 Test Item Value Reference Range Interpretation Comments Sodium Lvl (test code = Sodium Lvl) 137 135-145 N [facility] CenterGyvjqqyPPACYKWOM0546-86-57 20:32:00 Test Item Value Reference Range Interpretation Comments Calcium Lvl (test code = Calcium Lvl) 9.1 8.5-10.5 N [facility] CenterCqibjlcIMNDVQMEU1616-42-36 20:32:00 Test Item Value Reference Range Interpretation Comments Creatinine Lvl (test code = Creatinine 0.5 0.5-1.4 N Lvl) [facility] CenterZvotabzSQASVCEZL7475-59-96 20:32:00 Test Item Value Reference Range Interpretation Comments Glucose Lvl (test code = Glucose Lvl) 81 70-99 N [facility] CenterRjtlwarDTOCLFKDJ4506-95-51 20:32:00 Test Item Value Reference Range Interpretation Comments BUN (test code = BUN) 9 7-22 N [facility] CenterMadfimbPFHYBSFCR8214-70-67 20:32:00 Test Item Value Reference Range Interpretation Comments Vitamin D 1,25 (OH)2 Total (test code = 52 18-72 Vitamin D 1,25 (OH)2 Total) [facility] CenterVneivfeTYCBRBEAF7490-90-11 20:32:00 Test Item Value Reference Range Interpretation Comments Vitamin D2 1,25 (OH)2 (test code = no gt Vitamin D2 1,25 (OH)2) [facility] CenterQgujiinKMPGDNYCX2783-60-92 20:32:00 Test Item Value Reference Range Interpretation Comments Vitamin D3 1,25 (OH)2 (test code = 52 Vitamin D3 1,25 (OH)2) [facility] CenterWxoyrkvVYSJZPGLLB1359-12-32 20:32:00 Test Item Value Reference Range Interpretation Comments Platelet (test code = Platelet) 371 133-450 N [facility] CenterGvnhsizJPXGIZQHPK9060-45-18 20:32:00 Test Item Value Reference Range Interpretation Comments MPV (test code = MPV) 8.7 7.4-10.4 N [facility] CenterXmfvgmpNQAMHTOJZH6223-82-17 20:32:00 Test Item Value Reference Range Interpretation Comments Hgb (test code = Hgb) 12.0 12.0-16.0 N [facility] CenterWqdszzqEOONVQMDLA1965-10-57 20:32:00 Test Item Value Reference Range Interpretation Comments RBC (test code = RBC) 4.51 4.20-5.40 N [facility] CenterLloxsojVUSVRUELMV0871-28-36 20:32:00 Test Item Value Reference Range Interpretation Comments WBC (test code = WBC) 15.6 3.7-10.4 H [facility] CenterQqdskmuHMGGVHCKEA1499-40-84 20:32:00 Test Item Value Reference Range Interpretation Comments Hct (test code = Hct) 37.0 36.0-48.0 N [facility] CenterIqbbrloNPRMERDEYX8765-96-74 20:32:00 Test Item Value Reference Range Interpretation Comments MCV (test code = MCV) 82.0 81.0-99.0 N [facility] CenterBgylhqiOVYMPQDJEX8687-78-34 20:32:00 Test Item Value Reference Range Interpretation Comments RDW (test code = RDW) 15.9 11.5-14.5 H [facility] CenterAipuhtlQNHYCKVUIQ8172-66-95 20:32:00 Test Item Value Reference Range Interpretation Comments MCHC (test code = MCHC) 32.3 32.0-36.0 N [facility] CenterTbekgppDUWOLGZAIX7866-35-82 20:32:00 Test Item Value Reference Range Interpretation Comments MCH (test code = MCH) 26.5 pg 27.0-31.0 L [facility] CenterRxxasdqUPREUPBICH0987-25-84 20:32:00 Test Item Value Reference Range Interpretation Comments Platelet (test code = Platelet) 371 133-450 N [facility] CenterUcuiiaiCJEPWPKPIV9474-00-55 20:32:00 Test Item Value Reference Range Interpretation Comments Polychrom (test code = Slight (11/26/2012 N Polychrom) 14:32:00) [facility] CenterRekehydWCPWSVAMUR7834-78-28 20:32:00 Test Item Value Reference Range Interpretation Comments Polychrom (test code = Slight (11/26/2012 N Polychrom) 14:32:00) [facility] CenterYfmvpfkUILMEAPQIP0838-18-08 20:32:00 Test Item Value Reference Range Interpretation Comments Large Plt (test code = Slight *ABN*(11/26/2012 A Large Plt) 14:32:00) [facility] CenterAeewishVPBYHHDVFF0364-83-18 20:32:00 Test Item Value Reference Range Interpretation Comments Segs (test code = Segs) 73.0 45.0-75.0 N [facility] CenterSlbdwsqKJDRUETAJA3534-57-76 20:32:00 Test Item Value Reference Range Interpretation Comments Eosinophils # (test code 0.2 See_Comment N [A utomated message] The = Eosinophils #) system whic h generated this result tra nsmitted reference range : <=0.5. The reference r megan was not used to int erpret this result as normal/abnormal . [facility] CenterYxfmlrrQHSPSALSAA0581-94-75 20:32:00 Test Item Value Reference Range Interpretation Comments Basophils # (test code 0.1 See_Comment N [Aut omated message] The = Basophils #) system which generated this result tra nsmitted reference range : <=0.2. The reference r megan was not used to int erpret this result as normal/abnormal . [facility] CenterLwunwkpSFNRQTVSHC0047-48-42 20:32:00 Test Item Value Reference Range Interpretation Comments Lymphocytes (test code = Lymphocytes) 21.3 20.0-40.0 N [facility] CenterXyihkloSMFUYWTSYA1168-03-23 20:32:00 Test Item Value Reference Range Interpretation Comments Segs-Bands # (test code = Segs-Bands #) 11.4 1.5-8.1 H [facility] CenterMdftdleHXGYDXPGRI0984-40-94 20:32:00 Test Item Value Reference Range Interpretation Comments Eosinophils (test code = 1.1 See_Comment N [A utomated message] The Eosinophils) system which ge nerated this result tra nsmitted reference range : <=4.0. The reference r megan was not used to int erpret this result as normal/abnormal . [facility] CenterWxxatczCBLDYTKZQF5071-62-02 20:32:00 Test Item Value Reference Range Interpretation Comments Basophils (test code = 0.5 See_Comment N [Aut omated message] The Basophils) system which ge nerated this result tra nsmitted reference range : <=1.0. The reference r megan was not used to int erpret this result as normal/abnormal . [facility] CenterJkxlrodORBQULXGWC1095-94-99 20:32:00 Test Item Value Reference Range Interpretation Comments Monocytes (test code = Monocytes) 4.1 2.0-12.0 N [facility] CenterHxqohvoXEVTLQAKDR5530-20-69 20:32:00 Test Item Value Reference Range Interpretation Comments Large Plt (test code = Slight *ABN*(11/26/2012 A Large Plt) 14:32:00) [facility]GbzqvenYPLOGNTFSI0605-62-15 20:32:00 Test Item Value Reference Range Interpretation Comments Lymphocytes # (test code = Lymphocytes 3.3 1.0-5.5 N #) [facility] CenterIkbxbzaQNHEEKFLYL8340-09-36 20:32:00 Test Item Value Reference Range Interpretation Comments Monocytes # (test code 0.6 See_Comment N [Aut omated message] The = Monocytes #) system which generated this result tra nsmitted reference range : <=0.8. The reference r megan was not used to int erpret this result as normal/abnormal . [facility] CenterUwmpztySYUDYLECFM3577-26-80 20:32:00 Test Item Value Reference Range Interpretation Comments PTT (test code = PTT) 28.5 s 22.9-35.8 N [facility] CenterAgtijitIRXKUNEHRB2658-06-02 20:32:00 Test Item Value Reference Range Interpretation Comments PT (test code = PT) 12.9 s 12.0-14.7 N [facility] CenterXgqfvbzJXUAURTMRD8417-89-56 20:32:00 Test Item Value Reference Range Interpretation Comments INR (test code = INR) 0.95 0.85-1.17 N [facility]ShortooDACOEHBFVS7820-98-23 20:32:00 Test Item Value Reference Range Interpretation Comments UA Urobilinogen (test code *NA*(11/26/2012 0.1-1.0 = UA Urobilinogen) 14:32:00) [facility] HospitalUojynxsQHXZKAMHQH6900-67-35 20:32:00 Test Item Value Reference Range Interpretation Comments UA Bacteria (test code Occasional /HPF = UA Bacteria) *NA*(11/26/2012 14:32:00) [facility] HospitalShxeafrFFTFHHUAHO7789-51-30 20:32:00 Test Item Value Reference Range Interpretation Comments UA RBC (test code = 1 See_Comment N [Automa ashanti message] The UA RBC) system which ge nerated this result transmit ashanti reference range : <=2. The reference range was not used to interpr et this result as carmen l/abnormal. [facility]ParqofxEQKJWDTXHE3545-17-50 20:32:00 Test Item Value Reference Range Interpretation Comments UA WBC (test code = 3 See_Comment N [Automa ashanti message] The UA WBC) system which ge nerated this result transmit ashanti reference range : <=5. The reference range was not used to interpr et this result as carmen l/abnormal. [facility]anoZcaihldEEXDJOHAHP8224-68-60 20:32:00 Test Item Value Reference Range Interpretation Comments UA Sq Epi (test code = Many /LPF A UA Sq Epi) *ABN*(11/26/2012 14:32:00) [facility] HospitalTdagjfcFCDOAVTODG5999-27-87 20:32:00 Test Item Value Reference Range Interpretation Comments Segs (test code = Segs) 73.0 45.0-75.0 N [facility]anoJwpxchyDIKLGDHGWJ7023-24-35 20:32:00 Test Item Value Reference Range Interpretation Comments Micro? (test code = Performed *NA*(11/26/2012 Micro?) 14:32:00) [facility]anoBzyrgljIQPFZIACUL7896-33-66 20:32:00 Test Item Value Reference Range Interpretation Comments UA Mucus (test code = Few /LPF UA Mucus) *NA*(11/26/2012 14:32:00) [facility]anoDbnaqsfMRBFNTHXLX8477-87-66 20:32:00 Test Item Value Reference Range Interpretation Comments UA Bili (test code = Negative *NA*(11/26/2012 UA Bili) 14:32:00) [facility]anoPzpuiquZVMDAMCJWM3498-94-81 20:32:00 Test Item Value Reference Range Interpretation Comments UA Ketones (test code Negative mg/dL = UA Ketones) *NA*(11/26/2012 14:32:00) [facility]anoOfpjnskVQVFUWTYLF4767-96-57 20:32:00 Test Item Value Reference Range Interpretation Comments UA Protein (test code Negative mg/dL N = UA Protein) (11/26/2012 14:32:00) [facility]anoJmzmqlhZKMZKWSWAB1968-68-27 20:32:00 Test Item Value Reference Range Interpretation Comments UA Leuk Est (test code Trace *ABN*(11/26/2012 A = UA Leuk Est) 14:32:00) [facility]anoBgniyilJYXLIAHWMF3518-54-13 20:32:00 Test Item Value Reference Range Interpretation Comments UA Nitrite (test code Negative (11/26/2012 N = UA Nitrite) 14:32:00) [facility] HospitalAnhaghwQPLUQXJQES8174-29-11 20:32:00 Test Item Value Reference Range Interpretation Comments UA Blood (test code = Negative (11/26/2012 N UA Blood) 14:32:00) [facility] HospitalElofcloAWNPJYORTV9170-97-49 20:32:00 Test Item Value Reference Range Interpretation Comments UA Color (test code = Yellow *NA*(11/26/2012 UA Color) 14:32:00) [facility] HospitalIxrvvbaGPGVUJCARP1514-77-95 20:32:00 Test Item Value Reference Range Interpretation Comments UA pH (test code = UA pH) 6.0 5.0-8.0 N [facility] CenterHdkqpjlKAZZKWAFML8542-95-25 20:32:00 Test Item Value Reference Range Interpretation Comments Eosinophils # (test code 0.2 See_Comment N [A utomated message] The = Eosinophils #) system whic h generated this result tra nsmitted reference range : <=0.5. The reference r megan was not used to int erpret this result as normal/abnormal . [facility] HospitalDailczqCFDIDKFHQS7682-81-78 20:32:00 Test Item Value Reference Range Interpretation Comments UA Spec Grav (test code = UA Spec Grav) 1.016 N [facility] HospitalJljnhtjOEIXZFGFYL1408-98-56 20:32:00 Test Item Value Reference Range Interpretation Comments UA Turbidity (test code Slight A = UA Turbidity) *ABN*(11/26/2012 14:32:00) [facility] HospitalBatqodtKDSGIEAVKT4457-46-04 20:32:00 Test Item Value Reference Range Interpretation Comments UA Glucose (test code Negative mg/dL = UA Glucose) *NA*(11/26/2012 14:32:00) [facility] CenterTzymjsgSTAQLJZEAY6981-90-61 20:32:00 Test Item Value Reference Range Interpretation Comments Basophils # (test code 0.1 See_Comment N [Aut omated message] The = Basophils #) system which generated this result tra nsmitted reference range : <=0.2. The reference r megan was not used to int erpret this result as normal/abnormal . [facility] CenterNdpzwshQGTYSUZGWQ5914-20-78 20:32:00 Test Item Value Reference Range Interpretation Comments Lymphocytes (test code = Lymphocytes) 21.3 20.0-40.0 N [facility] CenterMqovmzbZJSGPOYBGP4523-06-91 20:32:00 Test Item Value Reference Range Interpretation Comments Segs-Bands # (test code = Segs-Bands #) 11.4 1.5-8.1 H [facility] CenterDjjmysmUFZEZLGLXA4835-74-81 20:32:00 Test Item Value Reference Range Interpretation Comments Eosinophils (test code = 1.1 See_Comment N [A utomated message] The Eosinophils) system which ge nerated this result tra nsmitted reference range : <=4.0. The reference r megan was not used to int erpret this result as normal/abnormal . [facility] CenterAqizcihQWXJYCCFHD7288-65-84 20:32:00 Test Item Value Reference Range Interpretation Comments Basophils (test code = 0.5 See_Comment N [Aut omated message] The Basophils) system which ge nerated this result tra nsmitted reference range : <=1.0. The reference r megan was not used to int erpret this result as normal/abnormal . [facility] CenterYyugqceDCMGTTXDZW2974-70-05 20:32:00 Test Item Value Reference Range Interpretation Comments Monocytes (test code = Monocytes) 4.1 2.0-12.0 N [facility] CenterOilntuzYJQEJDVMRS1062-41-18 20:32:00 Test Item Value Reference Range Interpretation Comments Lymphocytes # (test code = Lymphocytes 3.3 1.0-5.5 N #) [facility] CenterMrjwbgcKAMJJTTZVW1485-55-21 20:32:00 Test Item Value Reference Range Interpretation Comments Monocytes # (test code 0.6 See_Comment N [Aut omated message] The = Monocytes #) system which generated this result tra nsmitted reference range : <=0.8. The reference r megan was not used to int erpret this result as normal/abnormal . [facility] CenterOkkxtpgGZUWSHWIWB4738-77-96 20:32:00 Test Item Value Reference Range Interpretation Comments PTT (test code = PTT) 28.5 s 22.9-35.8 N [facility] CenterCqybefiOWDNUMKLCF1072-90-60 20:32:00 Test Item Value Reference Range Interpretation Comments PT (test code = PT) 12.9 s 12.0-14.7 N [facility] CenterLhggcxfKBDMHQVXIJ1404-14-17 20:32:00 Test Item Value Reference Range Interpretation Comments INR (test code = INR) 0.95 0.85-1.17 N [facility] CenterNvtumjmZYYPVPITE4668-40-51 20:32:00 Test Item Value Reference Range Interpretation Comments A/G Ratio (test code = A/G Ratio) 0.9 0.7-1.6 N [facility] CenterJogpsxkEZDNNMIZD4183-98-79 20:32:00 Test Item Value Reference Range Interpretation Comments Globulin (test code = Globulin) 4.4 2.0-4.0 H [facility] CenterTeejtbcJHMBDWATZ6098-35-53 20:32:00 Test Item Value Reference Range Interpretation Comments AGAP (test code = AGAP) 13.0 10.0-20.0 N [facility] CenterYiojoqwVTQDAAYCU8314-02-30 20:32:00 Test Item Value Reference Range Interpretation Comments B/C Ratio (test code = B/C Ratio) 18 6-25 N [facility] CenterSnyjvfoDKPLFLRRC4207-27-74 20:32:00 Test Item Value Reference Range Interpretation Comments AST (test code = AST) 24 See_Comment N [Auto mated message] The system which ge nerated this result transmit ashanti reference range : <=37. The reference range was not used to interpr et this result as carmen l/abnormal. [facility] CenterRbuiimzJEJQBUAFS9782-44-48 20:32:00 Test Item Value Reference Range Interpretation Comments Bili Total (test code = Bili Total) 0.5 0.2-1.3 N [facility] CenterFojuoasLUOMBOSJU4129-20-13 20:32:00 Test Item Value Reference Range Interpretation Comments Alk Phos (test code = Alk Phos) 98 39-136 N [facility] CenterQadsydvCAWFIQITN5264-53-44 20:32:00 Test Item Value Reference Range Interpretation Comments ALT (test code = ALT) 37 See_Comment N [Auto mated message] The system which ge nerated this result transmit ashanti reference range : <=65. The reference range was not used to interpr et this result as carmen l/abnormal. [facility] CenterOxvirfqKXWXDRNTS3340-00-61 20:32:00 Test Item Value Reference Range Interpretation Comments Total Protein (test code = Total 8.5 6.4-8.4 H Protein) [facility] CenterPwjkuxsBTRDFFHAU5928-64-73 20:32:00 Test Item Value Reference Range Interpretation Comments eGFR (test code = eGFR) 128 [facility] HospitalRohddumSVIXRPMWZN8472-48-01 20:32:00 Test Item Value Reference Range Interpretation Comments UA Urobilinogen (test code *NA*(11/26/2012 0.1-1.0 = UA Urobilinogen) 14:32:00) [facility] CenterRakhmpgFAAEWPXUJ2941-01-06 20:32:00 Test Item Value Reference Range Interpretation Comments Albumin Lvl (test code = Albumin Lvl) 4.1 3.5-5.0 N [facility] CenterZziautyXHDXOCZVR2139-80-90 20:32:00 Test Item Value Reference Range Interpretation Comments Chloride Lvl (test code = Chloride Lvl) 100 95-109 N [facility] CenterSalosweOZTGMDQEH1485-86-20 20:32:00 Test Item Value Reference Range Interpretation Comments Potassium Lvl (test code = Potassium 4.0 3.5-5.1 N Lvl) [facility] CenterMrekmdbLBKQSUGBM7988-19-63 20:32:00 Test Item Value Reference Range Interpretation Comments CO2 (test code = CO2) 28 24-32 N [facility] CenterFedaustJRWHANHCZ2466-14-37 20:32:00 Test Item Value Reference Range Interpretation Comments Sodium Lvl (test code = Sodium Lvl) 137 135-145 N [facility] CenterQgvyipnQPKUHMIGF0822-43-83 20:32:00 Test Item Value Reference Range Interpretation Comments Calcium Lvl (test code = Calcium Lvl) 9.1 8.5-10.5 N [facility] CenterYukafhcNLAKQCGHS7142-16-72 20:32:00 Test Item Value Reference Range Interpretation Comments Creatinine Lvl (test code = Creatinine 0.5 0.5-1.4 N Lvl) [facility] CenterHttqluzZNRSWVEEQ6281-38-56 20:32:00 Test Item Value Reference Range Interpretation Comments Glucose Lvl (test code = Glucose Lvl) 81 70-99 N [facility] CenterEkviahwSMZNTVOFM7020-88-60 20:32:00 Test Item Value Reference Range Interpretation Comments BUN (test code = BUN) 9 7-22 N [facility] CenterLdkejvdKDYPDDRVU1107-51-14 20:32:00 Test Item Value Reference Range Interpretation Comments Vitamin D 1,25 (OH)2 Total (test code = 52 18-72 Vitamin D 1,25 (OH)2 Total) [facility] HospitalGuefnqzJXLONKKZFU5255-22-32 20:32:00 Test Item Value Reference Range Interpretation Comments UA Bacteria (test code Occasional /HPF = UA Bacteria) *NA*(11/26/2012 14:32:00) [facility] CenterSqlcigwFCOBMKBIB3099-88-91 20:32:00 Test Item Value Reference Range Interpretation Comments Vitamin D2 1,25 (OH)2 (test code = no gt Vitamin D2 1,25 (OH)2) [facility] CenterTkqwgitFOIYDLGFI8248-95-64 20:32:00 Test Item Value Reference Range Interpretation Comments Vitamin D3 1,25 (OH)2 (test code = 52 Vitamin D3 1,25 (OH)2) [facility] CenterLcuiwccIOHOYGTHCJ7595-42-75 20:32:00 Test Item Value Reference Range Interpretation Comments MPV (test code = MPV) 8.7 7.4-10.4 N [facility] CenterVoiesxuWBVPZBKFFY2879-40-03 20:32:00 Test Item Value Reference Range Interpretation Comments Hgb (test code = Hgb) 12.0 12.0-16.0 N [facility] CenterCsubdpaPPPZVLQROD0725-23-07 20:32:00 Test Item Value Reference Range Interpretation Comments RBC (test code = RBC) 4.51 4.20-5.40 N [facility]KvqlnnfKNSJTTWWOW9078-68-92 20:32:00 Test Item Value Reference Range Interpretation Comments WBC (test code = WBC) 15.6 3.7-10.4 H [facility] CenterOflbtqfJHKPJBXTTM3347-72-38 20:32:00 Test Item Value Reference Range Interpretation Comments Hct (test code = Hct) 37.0 36.0-48.0 N [facility] CenterZzdasbmPVHPCWJAHB2438-92-62 20:32:00 Test Item Value Reference Range Interpretation Comments MCV (test code = MCV) 82.0 81.0-99.0 N [facility] CenterHkybduvLANBNWNBGJ0581-25-59 20:32:00 Test Item Value Reference Range Interpretation Comments RDW (test code = RDW) 15.9 11.5-14.5 H [facility] CenterOktyopkNQXLDBPBNW7500-74-24 20:32:00 Test Item Value Reference Range Interpretation Comments MCHC (test code = MCHC) 32.3 32.0-36.0 N [facility] HospitalAyurssoNOBKWHMLWW9026-52-73 20:32:00 Test Item Value Reference Range Interpretation Comments UA RBC (test code = 1 See_Comment N [Automa ashanti message] The UA RBC) system which ge nerated this result transmit ashanti reference range : <=2. The reference range was not used to interpr et this result as carmen l/abnormal. [facility] CenterIrcmgtmFEGPTMIFUT0196-06-26 20:32:00 Test Item Value Reference Range Interpretation Comments MCH (test code = MCH) 26.5 pg 27.0-31.0 L [facility] CenterVxgloxkFVOAJJCHWK6308-42-43 20:32:00 Test Item Value Reference Range Interpretation Comments Platelet (test code = Platelet) 371 133-450 N [facility] CenterWaavmfpBMJIRSOTYZ3894-13-12 20:32:00 Test Item Value Reference Range Interpretation Comments Polychrom (test code = Slight (11/26/2012 N Polychrom) 14:32:00) [facility] CenterJkxmscuSQODDFPNJN5032-40-69 20:32:00 Test Item Value Reference Range Interpretation Comments Large Plt (test code = Slight *ABN*(11/26/2012 A Large Plt) 14:32:00) [facility] CenterThiocwxDWRLVYJGJC2105-80-07 20:32:00 Test Item Value Reference Range Interpretation Comments Segs (test code = Segs) 73.0 45.0-75.0 N [facility] CenterTpdelamZEZBGAAXPL4225-18-98 20:32:00 Test Item Value Reference Range Interpretation Comments Eosinophils # (test code 0.2 See_Comment N [A utomated message] The = Eosinophils #) system whic h generated this result tra nsmitted reference range : <=0.5. The reference r megan was not used to int erpret this result as normal/abnormal . [facility] CenterFcvemtqTBBQITZFUL1062-95-98 20:32:00 Test Item Value Reference Range Interpretation Comments Basophils # (test code 0.1 See_Comment N [Aut omated message] The = Basophils #) system which generated this result tra nsmitted reference range : <=0.2. The reference r megan was not used to int erpret this result as normal/abnormal . [facility] CenterYugmtnqFWQBRAMBFZ2881-23-64 20:32:00 Test Item Value Reference Range Interpretation Comments Lymphocytes (test code = Lymphocytes) 21.3 20.0-40.0 N [facility] CenterQzbtkliRPYLWKBFMR9971-07-13 20:32:00 Test Item Value Reference Range Interpretation Comments Segs-Bands # (test code = Segs-Bands #) 11.4 1.5-8.1 H [facility] CenterItzxwuiKPWYSEYJVJ3965-15-00 20:32:00 Test Item Value Reference Range Interpretation Comments Eosinophils (test code = 1.1 See_Comment N [A utomated message] The Eosinophils) system which ge nerated this result tra nsmitted reference range : <=4.0. The reference r megan was not used to int erpret this result as normal/abnormal . [facility] HospitalZmexdagFPFMOUWBQL7484-13-46 20:32:00 Test Item Value Reference Range Interpretation Comments UA WBC (test code = 3 See_Comment N [Automa ashanti message] The UA WBC) system which ge nerated this result transmit ashanti reference range : <=5. The reference range was not used to interpr et this result as carmen l/abnormal. [facility] CenterPxyxrgbTTSLZAKRNM3277-73-16 20:32:00 Test Item Value Reference Range Interpretation Comments Basophils (test code = 0.5 See_Comment N [Aut omated message] The Basophils) system which ge nerated this result tra nsmitted reference range : <=1.0. The reference r megan was not used to int erpret this result as normal/abnormal . [facility] CenterSuritkrGQTNCUHKDL8210-60-22 20:32:00 Test Item Value Reference Range Interpretation Comments Monocytes (test code = Monocytes) 4.1 2.0-12.0 N [facility] CenterLesqbfrVRLGQOPZUX2999-06-72 20:32:00 Test Item Value Reference Range Interpretation Comments Lymphocytes # (test code = Lymphocytes 3.3 1.0-5.5 N #) [facility] CenterUntlivaZQJXEDGVFG2896-94-56 20:32:00 Test Item Value Reference Range Interpretation Comments Monocytes # (test code 0.6 See_Comment N [Aut omated message] The = Monocytes #) system which generated this result tra nsmitted reference range : <=0.8. The reference r megan was not used to int erpret this result as normal/abnormal . [facility] CenterUfpqdngKHDBFMLYFZ0705-17-53 20:32:00 Test Item Value Reference Range Interpretation Comments PTT (test code = PTT) 28.5 s 22.9-35.8 N [facility] CenterGqhwzgvXXNFPPTISC6347-74-08 20:32:00 Test Item Value Reference Range Interpretation Comments PT (test code = PT) 12.9 s 12.0-14.7 N [facility] CenterSwjwdwrQQAGFTMGMB1344-04-72 20:32:00 Test Item Value Reference Range Interpretation Comments INR (test code = INR) 0.95 0.85-1.17 N [facility] HospitalBqzlwelBZCGCGVJRU6564-52-89 20:32:00 Test Item Value Reference Range Interpretation Comments UA Urobilinogen (test code *NA*(11/26/2012 0.1-1.0 = UA Urobilinogen) 14:32:00) [facility]anoNvglqaoKLTFTPPGME8466-50-31 20:32:00 Test Item Value Reference Range Interpretation Comments UA Bacteria (test code Occasional /HPF = UA Bacteria) *NA*(11/26/2012 14:32:00) [facility]anoUvxsiltNEAXWYYIUD8524-77-39 20:32:00 Test Item Value Reference Range Interpretation Comments UA RBC (test code = 1 See_Comment N [Automa ashanti message] The UA RBC) system which ge nerated this result transmit ashanti reference range : <=2. The reference range was not used to interpr et this result as carmen l/abnormal. [facility]anoErlklwjDIBDRMYMFJ0583-44-85 20:32:00 Test Item Value Reference Range Interpretation Comments UA Sq Epi (test code = Many /LPF A UA Sq Epi) *ABN*(11/26/2012 14:32:00) [facility]anoQbvkibdPTRRGPXCGE8085-40-95 20:32:00 Test Item Value Reference Range Interpretation Comments UA WBC (test code = 3 See_Comment N [Automa ashanit message] The UA WBC) system which ge nerated this result transmit ashanti reference range : <=5. The reference range was not used to interpr et this result as carmen l/abnormal. [facility] HospitalXrneksyFYKNBBFNNU9835-25-64 20:32:00 Test Item Value Reference Range Interpretation Comments UA Sq Epi (test code = Many /LPF A UA Sq Epi) *ABN*(11/26/2012 14:32:00) [facility]anoIkutugtVEAJXLQMCA5993-55-52 20:32:00 Test Item Value Reference Range Interpretation Comments Micro? (test code = Performed *NA*(11/26/2012 Micro?) 14:32:00) [facility]anoTfmedcgSVGNAGLGSR8521-63-02 20:32:00 Test Item Value Reference Range Interpretation Comments UA Mucus (test code = Few /LPF UA Mucus) *NA*(11/26/2012 14:32:00) [facility]anoFzkdiebFJSSXGZASQ8704-23-75 20:32:00 Test Item Value Reference Range Interpretation Comments UA Bili (test code = Negative *NA*(11/26/2012 UA Bili) 14:32:00) [facility]anoDmakrvgKODYHMZNEI1785-40-16 20:32:00 Test Item Value Reference Range Interpretation Comments UA Ketones (test code Negative mg/dL = UA Ketones) *NA*(11/26/2012 14:32:00) [facility]anoJcjyqriPFCMQOMTRY0829-16-17 20:32:00 Test Item Value Reference Range Interpretation Comments UA Protein (test code Negative mg/dL N = UA Protein) (11/26/2012 14:32:00) [facility]QpqrqhvRIAVPMHBBD2041-19-87 20:32:00 Test Item Value Reference Range Interpretation Comments UA Leuk Est (test code Trace *ABN*(11/26/2012 A = UA Leuk Est) 14:32:00) [facility] HospitalFpiiavzMNXEELOUND9417-36-49 20:32:00 Test Item Value Reference Range Interpretation Comments UA Nitrite (test code Negative (11/26/2012 N = UA Nitrite) 14:32:00) [facility] HospitalAgusfmsTVWMGYULSI2995-95-78 20:32:00 Test Item Value Reference Range Interpretation Comments UA Blood (test code = Negative (11/26/2012 N UA Blood) 14:32:00) [facility] HospitalUzzrgxeUPYIMQOLNC4924-78-17 20:32:00 Test Item Value Reference Range Interpretation Comments Micro? (test code = Performed *NA*(11/26/2012 Micro?) 14:32:00) [facility]anoOiemulwDGROSLXRYB6872-21-37 20:32:00 Test Item Value Reference Range Interpretation Comments UA Color (test code = Yellow *NA*(11/26/2012 UA Color) 14:32:00) [facility] HospitalRhvgslxWXXMWJSSFK3515-69-83 20:32:00 Test Item Value Reference Range Interpretation Comments UA pH (test code = UA pH) 6.0 5.0-8.0 N [facility]anoSfuxipqGRDEATRJSL1605-39-38 20:32:00 Test Item Value Reference Range Interpretation Comments UA Spec Grav (test code = UA Spec Grav) 1.016 N [facility] HospitalShmakpaBRAFNWMWWQ5602-20-52 20:32:00 Test Item Value Reference Range Interpretation Comments UA Turbidity (test code Slight A = UA Turbidity) *ABN*(11/26/2012 14:32:00) [facility] HospitalXksrkhxXEQJULUBIA9762-78-37 20:32:00 Test Item Value Reference Range Interpretation Comments UA Glucose (test code Negative mg/dL = UA Glucose) *NA*(11/26/2012 14:32:00) [facility] HospitalUwtwahvEOOOTCOGEZ1426-97-61 20:32:00 Test Item Value Reference Range Interpretation Comments UA Mucus (test code = Few /LPF UA Mucus) *NA*(11/26/2012 14:32:00) [facility] HospitalOuyvrrhZWBTXIDPFY9588-86-58 20:32:00 Test Item Value Reference Range Interpretation Comments UA Bili (test code = Negative *NA*(11/26/2012 UA Bili) 14:32:00) [facility] HospitalVgnbvklVXZCIQGBIM3266-30-60 20:32:00 Test Item Value Reference Range Interpretation Comments UA Ketones (test code Negative mg/dL = UA Ketones) *NA*(11/26/2012 14:32:00) [facility] HospitalCrbgipwMIKBOXEXPS1216-11-06 20:32:00 Test Item Value Reference Range Interpretation Comments UA Protein (test code Negative mg/dL N = UA Protein) (11/26/2012 14:32:00) [facility] HospitalGyqsvhpUBTRAFKYMB3789-86-54 20:32:00 Test Item Value Reference Range Interpretation Comments UA Leuk Est (test code Trace *ABN*(11/26/2012 A = UA Leuk Est) 14:32:00) [facility] HospitalTrupmdhYTKTQXDDKQ8251-94-81 20:32:00 Test Item Value Reference Range Interpretation Comments UA Nitrite (test code Negative (11/26/2012 N = UA Nitrite) 14:32:00) [facility] HospitalYnnucmrSPVNJYDPUI7968-60-61 20:32:00 Test Item Value Reference Range Interpretation Comments UA Blood (test code = Negative (11/26/2012 N UA Blood) 14:32:00) [facility] [facility]9782-47-22 20:32:00 Test Item Value Reference Range Interpretation Comments UA Color (test code = Yellow *NA*(11/26/2012 UA Color) 14:32:00) [facility]LjmuznbGDOPRIMMBX7069-01-32 20:32:00 Test Item Value Reference Range Interpretation Comments UA pH (test code = UA pH) 6.0 5.0-8.0 N [facility] HospitalIiinydeCBHBDFLKQI1964-24-66 20:32:00 Test Item Value Reference Range Interpretation Comments UA Spec Grav (test code = UA Spec Grav) 1.016 N [facility] HospitalNofqitlSGEASPHEUY1639-64-24 20:32:00 Test Item Value Reference Range Interpretation Comments UA Turbidity (test code Slight A = UA Turbidity) *ABN*(11/26/2012 14:32:00) [facility]UxoqaysNXFSHZODM2109-56-51 20:32:00 Test Item Value Reference Range Interpretation Comments A/G Ratio (test code = A/G Ratio) 0.9 0.7-1.6 N [facility] CenterQmayfblKMWXWLGVJ9084-17-08 20:32:00 Test Item Value Reference Range Interpretation Comments Globulin (test code = Globulin) 4.4 2.0-4.0 H [facility] CenterEeszfmkNLWEXIWIQ8228-79-62 20:32:00 Test Item Value Reference Range Interpretation Comments AGAP (test code = AGAP) 13.0 10.0-20.0 N [facility] CenterDfsejpoFTAJCZECO4800-73-13 20:32:00 Test Item Value Reference Range Interpretation Comments B/C Ratio (test code = B/C Ratio) 18 6-25 N [facility] CenterNxihlkoQOPTVWXOT2793-21-47 20:32:00 Test Item Value Reference Range Interpretation Comments AST (test code = AST) 24 See_Comment N [Auto mated message] The system which ge nerated this result transmit ashanti reference range : <=37. The reference range was not used to interpr et this result as carmen l/abnormal. [facility] CenterEgiatqgCETJBWFCH7576-57-38 20:32:00 Test Item Value Reference Range Interpretation Comments Bili Total (test code = Bili Total) 0.5 0.2-1.3 N [facility] CenterBkibxgpZXBXMBZUO5212-86-50 20:32:00 Test Item Value Reference Range Interpretation Comments Alk Phos (test code = Alk Phos) 98 39-136 N [facility] CenterTyfcoyqOTWOIACIY4689-60-73 20:32:00 Test Item Value Reference Range Interpretation Comments ALT (test code = ALT) 37 See_Comment N [Auto mated message] The system which ge nerated this result transmit ashanti reference range : <=65. The reference range was not used to interpr et this result as carmen l/abnormal. [facility]YbwtvsgFZRJMHNSSR5970-03-95 20:32:00 Test Item Value Reference Range Interpretation Comments UA Glucose (test code Negative mg/dL = UA Glucose) *NA*(11/26/2012 14:32:00) [facility] CenterOzckvsmFCHKNGVPL8360-28-11 20:32:00 Test Item Value Reference Range Interpretation Comments Total Protein (test code = Total 8.5 6.4-8.4 H Protein) [facility] CenterOzcoqchGJCKCRAOH4927-32-98 20:32:00 Test Item Value Reference Range Interpretation Comments eGFR (test code = eGFR) 128 [facility] CenterAdvstvqVOZXBTZCV0005-50-58 20:32:00 Test Item Value Reference Range Interpretation Comments Albumin Lvl (test code = Albumin Lvl) 4.1 3.5-5.0 N [facility] CenterEacskvtBNRZHWIPH4170-27-70 20:32:00 Test Item Value Reference Range Interpretation Comments Chloride Lvl (test code = Chloride Lvl) 100 95-109 N [facility] CenterZuxlrgsIHLTGCQQQ0218-26-63 20:32:00 Test Item Value Reference Range Interpretation Comments Potassium Lvl (test code = Potassium 4.0 3.5-5.1 N Lvl) [facility] CenterSastdfbJCCBEKRIM3407-33-01 20:32:00 Test Item Value Reference Range Interpretation Comments CO2 (test code = CO2) 28 24-32 N [facility] CenterNvalrisLBBTZCYMQ5541-28-19 20:32:00 Test Item Value Reference Range Interpretation Comments Sodium Lvl (test code = Sodium Lvl) 137 135-145 N [facility] CenterKrentstTXGJTZXVB8475-58-15 20:32:00 Test Item Value Reference Range Interpretation Comments Calcium Lvl (test code = Calcium Lvl) 9.1 8.5-10.5 N [facility] CenterDwqsvkfZRLFCNKJW9740-47-44 20:32:00 Test Item Value Reference Range Interpretation Comments Creatinine Lvl (test code = Creatinine 0.5 0.5-1.4 N Lvl) [facility] CenterIaujjntOEEZNZQYH2275-97-49 20:32:00 Test Item Value Reference Range Interpretation Comments Glucose Lvl (test code = Glucose Lvl) 81 70-99 N [facility] CenterMjoornhULPKGUFFP1889-48-75 20:32:00 Test Item Value Reference Range Interpretation Comments BUN (test code = BUN) 9 7-22 N [facility] CenterEafvfxoPFRPSLCVY2451-70-39 20:32:00 Test Item Value Reference Range Interpretation Comments Vitamin D 1,25 (OH)2 Total (test code = 52 18-72 Vitamin D 1,25 (OH)2 Total) [facility] CenterPszqsapZKMHCDJCP6461-83-11 20:32:00 Test Item Value Reference Range Interpretation Comments Vitamin D2 1,25 (OH)2 (test code = no gt Vitamin D2 1,25 (OH)2) [facility] CenterPgbxgbtUYEDPWGQH3263-51-80 20:32:00 Test Item Value Reference Range Interpretation Comments Vitamin D3 1,25 (OH)2 (test code = 52 Vitamin D3 1,25 (OH)2) [facility]IfpbdjzBKHSFOCNRJ5824-62-49 20:32:00 Test Item Value Reference Range Interpretation Comments MPV (test code = MPV) 8.7 7.4-10.4 N [facility] CenterCuryzxkUKSPUXFSFF4281-86-36 20:32:00 Test Item Value Reference Range Interpretation Comments Hgb (test code = Hgb) 12.0 12.0-16.0 N [facility] CenterSwznliqHOCCSTIBGJ2536-57-48 20:32:00 Test Item Value Reference Range Interpretation Comments RBC (test code = RBC) 4.51 4.20-5.40 N [facility] CenterUydddlnODXYHPMTRO6044-60-80 20:32:00 Test Item Value Reference Range Interpretation Comments WBC (test code = WBC) 15.6 3.7-10.4 H [facility] CenterXzjlkbgUGNQWUQFGV7920-22-76 20:32:00 Test Item Value Reference Range Interpretation Comments Hct (test code = Hct) 37.0 36.0-48.0 N [facility] CenterKyhtgrlCNHPTHYWKP0409-49-66 20:32:00 Test Item Value Reference Range Interpretation Comments MCV (test code = MCV) 82.0 81.0-99.0 N [place] [address]-02-21 20:32:00 Test Item Value Reference Range Interpretation Comments RDW (test code = RDW) 15.9 11.5-14.5 H [facility] CenterSizuudgNQZYNGXGRZ3774-94-13 20:32:00 Test Item Value Reference Range Interpretation Comments MCHC (test code = MCHC) 32.3 32.0-36.0 N [facility] CenterFimjvkqXBYUJCCAIG2066-18-26 20:32:00 Test Item Value Reference Range Interpretation Comments MCH (test code = MCH) 26.5 pg 27.0-31.0 L [facility] CenterZlmxzkeSKGFSVHWCK1025-72-88 20:32:00 Test Item Value Reference Range Interpretation Comments Platelet (test code = Platelet) 371 133-450 N [facility] CenterOfovnaiEZLRWAVILQ4703-76-40 20:32:00 Test Item Value Reference Range Interpretation Comments Polychrom (test code = Slight (11/26/2012 N Polychrom) 14:32:00) [facility] CenterCbobeviONHMRZKKJE4889-44-13 20:32:00 Test Item Value Reference Range Interpretation Comments Large Plt (test code = Slight *ABN*(11/26/2012 A Large Plt) 14:32:00) [facility] CenterFdkcwimUJXGQPRAGF0436-97-24 20:32:00 Test Item Value Reference Range Interpretation Comments Segs (test code = Segs) 73.0 45.0-75.0 N [facility] CenterCmsgwkaMCEDMAYSII8251-02-60 20:32:00 Test Item Value Reference Range Interpretation Comments Eosinophils # (test code 0.2 See_Comment N [A utomated message] The = Eosinophils #) system whic h generated this result tra nsmitted reference range : <=0.5. The reference r megan was not used to int erpret this result as normal/abnormal . [facility] CenterCsvumpaFWWWVTXSBX9270-03-20 20:32:00 Test Item Value Reference Range Interpretation Comments Basophils # (test code 0.1 See_Comment N [Aut omated message] The = Basophils #) system which generated this result tra nsmitted reference range : <=0.2. The reference r megan was not used to int erpret this result as normal/abnormal . [facility] CenterIbqowcvWPHAXIRKHX3785-63-80 20:32:00 Test Item Value Reference Range Interpretation Comments Lymphocytes (test code = Lymphocytes) 21.3 20.0-40.0 N [facility] CenterUqbeihnBFATLGJCKQ4569-06-37 20:32:00 Test Item Value Reference Range Interpretation Comments Segs-Bands # (test code = Segs-Bands #) 11.4 1.5-8.1 H [facility] CenterWzdhneuFBLBGJXBOJ7863-62-87 20:32:00 Test Item Value Reference Range Interpretation Comments Eosinophils (test code = 1.1 See_Comment N [A utomated message] The Eosinophils) system which ge nerated this result tra nsmitted reference range : <=4.0. The reference r megan was not used to int erpret this result as normal/abnormal . [facility] CenterAowjemaMXSWTFDMDS6506-14-77 20:32:00 Test Item Value Reference Range Interpretation Comments Basophils (test code = 0.5 See_Comment N [Aut omated message] The Basophils) system which ge nerated this result tra nsmitted reference range : <=1.0. The reference r megan was not used to int erpret this result as normal/abnormal . [facility] CenterJikjzwaGIGOIFQUIK1170-25-94 20:32:00 Test Item Value Reference Range Interpretation Comments Monocytes (test code = Monocytes) 4.1 2.0-12.0 N [facility] CenterJuehbtlPBVMDQWNPG6048-46-48 20:32:00 Test Item Value Reference Range Interpretation Comments Lymphocytes # (test code = Lymphocytes 3.3 1.0-5.5 N #) [facility] CenterDcpdkmpFDOENMKLAS4736-03-26 20:32:00 Test Item Value Reference Range Interpretation Comments Monocytes # (test code 0.6 See_Comment N [Aut omated message] The = Monocytes #) system which generated this result tra nsmitted reference range : <=0.8. The reference r megan was not used to int erpret this result as normal/abnormal . [facility] CenterKlctttdXTFNYCOSSI9224-89-27 20:32:00 Test Item Value Reference Range Interpretation Comments PTT (test code = PTT) 28.5 s 22.9-35.8 N [facility] CenterGyegkcsSZWRENMDYK7133-84-76 20:32:00 Test Item Value Reference Range Interpretation Comments PT (test code = PT) 12.9 s 12.0-14.7 N [facility] CenterYwukqwjJCWWVASZOF6359-70-75 20:32:00 Test Item Value Reference Range Interpretation Comments INR (test code = INR) 0.95 0.85-1.17 N [facility] HospitalWnhljgyBDVGMJJSQQ7981-91-95 20:32:00 Test Item Value Reference Range Interpretation Comments UA Urobilinogen (test code *NA*(11/26/2012 0.1-1.0 = UA Urobilinogen) 14:32:00) [facility] HospitalFwcwqnvHPQYAOVZXB7200-07-44 20:32:00 Test Item Value Reference Range Interpretation Comments UA Bacteria (test code Occasional /HPF = UA Bacteria) *NA*(11/26/2012 14:32:00) [facility]ErjftylUGGXEBANJJ6994-92-41 20:32:00 Test Item Value Reference Range Interpretation Comments UA RBC (test code = 1 See_Comment N [Automa ashanti message] The UA RBC) system which ge nerated this result transmit ashanti reference range : <=2. The reference range was not used to interpr et this result as carmen l/abnormal. [facility]anoLbqtylcYPILVAFHDK5424-60-83 20:32:00 Test Item Value Reference Range Interpretation Comments UA WBC (test code = 3 See_Comment N [Automa ashanti message] The UA WBC) system which ge nerated this result transmit ashanti reference range : <=5. The reference range was not used to interpr et this result as carmen l/abnormal. [facility] HospitalFtnmvezANAOHYHTZP2962-27-65 20:32:00 Test Item Value Reference Range Interpretation Comments UA Sq Epi (test code = Many /LPF A UA Sq Epi) *ABN*(11/26/2012 14:32:00) [facility]anoSfreopoDFXAVIKIYY9503-24-22 20:32:00 Test Item Value Reference Range Interpretation Comments Micro? (test code = Performed *NA*(11/26/2012 Micro?) 14:32:00) [facility]anoRdpzputXGKDTHMXDH0013-15-86 20:32:00 Test Item Value Reference Range Interpretation Comments UA Mucus (test code = Few /LPF UA Mucus) *NA*(11/26/2012 14:32:00) [facility] HospitalZucdzfdQVJOJALGDX0958-26-76 20:32:00 Test Item Value Reference Range Interpretation Comments UA Bili (test code = Negative *NA*(11/26/2012 UA Bili) 14:32:00) [facility]anoPlutdddIMNXCAYBHV6776-25-52 20:32:00 Test Item Value Reference Range Interpretation Comments UA Ketones (test code Negative mg/dL = UA Ketones) *NA*(11/26/2012 14:32:00) [facility]anoDurrwubSMYFFPFGVO8268-08-48 20:32:00 Test Item Value Reference Range Interpretation Comments UA Protein (test code Negative mg/dL N = UA Protein) (11/26/2012 14:32:00) [facility] HospitalZwlccmkVHICTEUNCW7465-08-71 20:32:00 Test Item Value Reference Range Interpretation Comments UA Leuk Est (test code Trace *ABN*(11/26/2012 A = UA Leuk Est) 14:32:00) [facility] HospitalRmvjugmDYBKODINFM3066-45-08 20:32:00 Test Item Value Reference Range Interpretation Comments UA Nitrite (test code Negative (11/26/2012 N = UA Nitrite) 14:32:00) [facility] HospitalIczsxuaIHSKQVVKTT6131-23-30 20:32:00 Test Item Value Reference Range Interpretation Comments UA Blood (test code = Negative (11/26/2012 N UA Blood) 14:32:00) [facility] HospitalFbtvjnpUROXRFJKBB6367-62-84 20:32:00 Test Item Value Reference Range Interpretation Comments UA Color (test code = Yellow *NA*(11/26/2012 UA Color) 14:32:00) [facility] HospitalUbhxgqkMINSNONSNT9252-20-87 20:32:00 Test Item Value Reference Range Interpretation Comments UA pH (test code = UA pH) 6.0 5.0-8.0 N [facility] HospitalXukolaqSULVVTWFPH6233-26-30 20:32:00 Test Item Value Reference Range Interpretation Comments UA Spec Grav (test code = UA Spec Grav) 1.016 N [facility] HospitalVhhtvjjMNJJBOYWFF0819-63-57 20:32:00 Test Item Value Reference Range Interpretation Comments UA Turbidity (test code Slight A = UA Turbidity) *ABN*(11/26/2012 14:32:00) [facility] HospitalDnfhzuoABBIOXGPRN2305-67-64 20:32:00 Test Item Value Reference Range Interpretation Comments UA Glucose (test code Negative mg/dL = UA Glucose) *NA*(11/26/2012 14:32:00) [facility] CenterEivvnqlGPQEHCWQY3903-27-41 20:32:00 Test Item Value Reference Range Interpretation Comments A/G Ratio (test code = A/G Ratio) 0.9 0.7-1.6 N [facility] CenterCctuquzHCUFHAAUR6044-75-14 20:32:00 Test Item Value Reference Range Interpretation Comments Globulin (test code = Globulin) 4.4 2.0-4.0 H [facility] CenterIrnhyjiEITNMGKBS1076-60-27 20:32:00 Test Item Value Reference Range Interpretation Comments AGAP (test code = AGAP) 13.0 10.0-20.0 N [facility] CenterVhfwtbePKHKBOOKB9110-85-24 20:32:00 Test Item Value Reference Range Interpretation Comments B/C Ratio (test code = B/C Ratio) 18 6-25 N [facility] CenterFcpujfgOEXEYHVRC7432-64-16 20:32:00 Test Item Value Reference Range Interpretation Comments AST (test code = AST) 24 <=37 N [facility] CenterFtywibiASIQHTIFU5563-23-08 20:32:00 Test Item Value Reference Range Interpretation Comments Bili Total (test code = Bili Total) 0.5 0.2-1.3 N [facility] CenterWjsamjmAETTEKTLI2241-29-79 20:32:00 Test Item Value Reference Range Interpretation Comments Alk Phos (test code = Alk Phos) 98 39-136 N [facility] CenterDubbjayTBXFMCPTK3092-36-07 20:32:00 Test Item Value Reference Range Interpretation Comments ALT (test code = ALT) 37 <=65 N [facility] CenterJsfambxESIUCZWKB9070-00-87 20:32:00 Test Item Value Reference Range Interpretation Comments Total Protein (test code = Total 8.5 6.4-8.4 H Protein) [facility] CenterKuqqgfbZDCYKNOXS9410-90-66 20:32:00 Test Item Value Reference Range Interpretation Comments eGFR (test code = eGFR) 128 [facility] CenterYwtbfdrIIVIXEEHD9350-10-39 20:32:00 Test Item Value Reference Range Interpretation Comments Albumin Lvl (test code = Albumin Lvl) 4.1 3.5-5.0 N [facility] CenterMlearlaJKFHUJGMQ5856-59-43 20:32:00 Test Item Value Reference Range Interpretation Comments Chloride Lvl (test code = Chloride Lvl) 100 95-109 N [facility] CenterLpfkqvxMYPHHTGCE8677-26-24 20:32:00 Test Item Value Reference Range Interpretation Comments Potassium Lvl (test code = Potassium 4.0 3.5-5.1 N Lvl) [facility] CenterNzxdofgRZHTGNXJU9938-93-82 20:32:00 Test Item Value Reference Range Interpretation Comments CO2 (test code = CO2) 28 24-32 N [facility] CenterKopqhwdQCJFXZAOI4594-34-74 20:32:00 Test Item Value Reference Range Interpretation Comments Sodium Lvl (test code = Sodium Lvl) 137 135-145 N [facility] CenterElxwedoBTTMUXYQB7069-30-30 20:32:00 Test Item Value Reference Range Interpretation Comments Calcium Lvl (test code = Calcium Lvl) 9.1 8.5-10.5 N [facility] CenterAadmtxjJITJEOVXQ8433-84-96 20:32:00 Test Item Value Reference Range Interpretation Comments Creatinine Lvl (test code = Creatinine 0.5 0.5-1.4 N Lvl) [facility] CenterVbziaxhKUHDWPYYD2765-22-13 20:32:00 Test Item Value Reference Range Interpretation Comments Glucose Lvl (test code = Glucose Lvl) 81 70-99 N [facility] CenterTkipsimVKKLAHFEE8763-81-03 20:32:00 Test Item Value Reference Range Interpretation Comments BUN (test code = BUN) 9 7-22 N [facility] CenterJzinsecCVDVDXAPP2603-58-50 20:32:00 Test Item Value Reference Range Interpretation Comments Vitamin D 1,25 (OH)2 Total (test code = 52 18-72 Vitamin D 1,25 (OH)2 Total) [facility] CenterHfbqffeSHHBQWBNZ2324-75-83 20:32:00 Test Item Value Reference Range Interpretation Comments Vitamin D2 1,25 (OH)2 (test code = no gt Vitamin D2 1,25 (OH)2) [facility] CenterNsslagxXCMYPUCIO4247-90-15 20:32:00 Test Item Value Reference Range Interpretation Comments Vitamin D3 1,25 (OH)2 (test code = 52 Vitamin D3 1,25 (OH)2) [facility] CenterQphwzlgDAAABBMJMM8803-06-07 20:32:00 Test Item Value Reference Range Interpretation Comments MPV (test code = MPV) 8.7 7.4-10.4 N [facility] CenterHpylrhnSANBINDJDE5636-07-78 20:32:00 Test Item Value Reference Range Interpretation Comments Hgb (test code = Hgb) 12.0 12.0-16.0 N [facility] CenterSkafckdHKRYENVWQF0287-38-17 20:32:00 Test Item Value Reference Range Interpretation Comments RBC (test code = RBC) 4.51 4.20-5.40 N [facility] CenterTleaxtfSQHANTLEPA7579-25-75 20:32:00 Test Item Value Reference Range Interpretation Comments WBC (test code = WBC) 15.6 3.7-10.4 H [facility] CenterCsumouiPRAXHTOKCS8948-60-74 20:32:00 Test Item Value Reference Range Interpretation Comments Hct (test code = Hct) 37.0 36.0-48.0 N [facility] CenterZabkngvQIHNSXQIUN5563-21-46 20:32:00 Test Item Value Reference Range Interpretation Comments MCV (test code = MCV) 82.0 81.0-99.0 N [facility] CenterCgisxcrPYGNLTHYHL6290-97-32 20:32:00 Test Item Value Reference Range Interpretation Comments RDW (test code = RDW) 15.9 11.5-14.5 H [facility] CenterXrtduqbWEBCHCFPXJ3193-58-03 20:32:00 Test Item Value Reference Range Interpretation Comments MCHC (test code = MCHC) 32.3 32.0-36.0 N [facility] CenterTmahxwiKLPXWPUWON4234-97-52 20:32:00 Test Item Value Reference Range Interpretation Comments MCH (test code = MCH) 26.5 pg 27.0-31.0 L [facility] CenterKzaippbILFJPHALKL8251-33-30 20:32:00 Test Item Value Reference Range Interpretation Comments Platelet (test code = Platelet) 371 133-450 N [facility] CenterVzksgugJSALYYLYGQ5748-81-25 20:32:00 Test Item Value Reference Range Interpretation Comments Polychrom (test code = Slight (11/26/2012 N Polychrom) 14:32:00) [facility] CenterOnjlbdgLBMZHPKRVQ5808-16-65 20:32:00 Test Item Value Reference Range Interpretation Comments Large Plt (test code = Slight *ABN*(11/26/2012 A Large Plt) 14:32:00) [facility] CenterTtojlchFTRFWTHINW0358-07-52 20:32:00 Test Item Value Reference Range Interpretation Comments Segs (test code = Segs) 73.0 45.0-75.0 N [facility] CenterIekngufKXVMFJSQBG4454-26-05 20:32:00 Test Item Value Reference Range Interpretation Comments Eosinophils # (test code = Eosinophils 0.2 <=0.5 N #) [facility] CenterGhuriqsUYLRRXPYYU2801-50-16 20:32:00 Test Item Value Reference Range Interpretation Comments Basophils # (test code = Basophils #) 0.1 <=0.2 N [facility] CenterOxarewkEWWGAWZQHR2774-57-03 20:32:00 Test Item Value Reference Range Interpretation Comments Lymphocytes (test code = Lymphocytes) 21.3 20.0-40.0 N [facility] CenterNksrldnMMOUGJVEAR7670-65-92 20:32:00 Test Item Value Reference Range Interpretation Comments Segs-Bands # (test code = Segs-Bands #) 11.4 1.5-8.1 H [facility] CenterObwduioLBGODCASNR0446-71-52 20:32:00 Test Item Value Reference Range Interpretation Comments Eosinophils (test code = Eosinophils) 1.1 <=4.0 N [facility] CenterPdlqpdbPMLZYWMZFO9631-35-81 20:32:00 Test Item Value Reference Range Interpretation Comments Basophils (test code = Basophils) 0.5 <=1.0 N [facility] CenterEgjroouNKFQBTRWIR7535-96-34 20:32:00 Test Item Value Reference Range Interpretation Comments Monocytes (test code = Monocytes) 4.1 2.0-12.0 N [facility] CenterPytkszwOQZLXCZWPD1404-12-65 20:32:00 Test Item Value Reference Range Interpretation Comments Lymphocytes # (test code = Lymphocytes 3.3 1.0-5.5 N #) [facility] CenterYnbngfgOFVVSQALVF0432-92-69 20:32:00 Test Item Value Reference Range Interpretation Comments Monocytes # (test code = Monocytes #) 0.6 <=0.8 N [facility] CenterVxuchbmXQZCUINUQY2344-38-88 20:32:00 Test Item Value Reference Range Interpretation Comments PTT (test code = PTT) 28.5 s 22.9-35.8 N [facility] CenterXktbyfoSEJSQFKSSQ0753-07-99 20:32:00 Test Item Value Reference Range Interpretation Comments PT (test code = PT) 12.9 s 12.0-14.7 N [facility] CenterVqxlatoQLCEPLJGXQ0963-61-92 20:32:00 Test Item Value Reference Range Interpretation Comments INR (test code = INR) 0.95 0.85-1.17 N [facility] HospitalLodwdrrMBNASEJQUV9066-49-27 20:32:00 Test Item Value Reference Range Interpretation Comments UA Urobilinogen (test code *NA*(11/26/2012 0.1-1.0 = UA Urobilinogen) 14:32:00) [facility] HospitalMjmeeayYFNVORIXOB8763-54-93 20:32:00 Test Item Value Reference Range Interpretation Comments UA Bacteria (test code Occasional /HPF = UA Bacteria) *NA*(11/26/2012 14:32:00) [facility] HospitalButsucgGETDGZVWOJ8033-68-11 20:32:00 Test Item Value Reference Range Interpretation Comments UA RBC (test code = UA RBC) 1 <=2 N [facility] HospitalZrixsqmZFAXZVHVXX9628-45-07 20:32:00 Test Item Value Reference Range Interpretation Comments UA WBC (test code = UA WBC) 3 <=5 N [facility] HospitalAqixxnjRVAUAQNHTV0541-45-15 20:32:00 Test Item Value Reference Range Interpretation Comments UA Sq Epi (test code = Many /LPF A UA Sq Epi) *ABN*(11/26/2012 14:32:00) [facility] HospitalStdtztcJVFACSEBNY6308-42-83 20:32:00 Test Item Value Reference Range Interpretation Comments Micro? (test code = Performed *NA*(11/26/2012 Micro?) 14:32:00) [facility] HospitalEffeoabSXWMPABVVR8098-53-13 20:32:00 Test Item Value Reference Range Interpretation Comments UA Mucus (test code = Few /LPF UA Mucus) *NA*(11/26/2012 14:32:00) [facility] HospitalNmxntlsIOXHBOWYHI1620-61-49 20:32:00 Test Item Value Reference Range Interpretation Comments UA Bili (test code = Negative *NA*(11/26/2012 UA Bili) 14:32:00) [facility] HospitalCdvsztqZWTQCRIRRV9409-62-72 20:32:00 Test Item Value Reference Range Interpretation Comments UA Ketones (test code Negative mg/dL = UA Ketones) *NA*(11/26/2012 14:32:00) [facility] HospitalIqeykkhNCZCNRJRJR3440-59-14 20:32:00 Test Item Value Reference Range Interpretation Comments UA Protein (test code Negative mg/dL N = UA Protein) (11/26/2012 14:32:00) [facility] HospitalZbaewutWCDRIUYDJW9427-99-20 20:32:00 Test Item Value Reference Range Interpretation Comments UA Leuk Est (test code Trace *ABN*(11/26/2012 A = UA Leuk Est) 14:32:00) [facility] HospitalZuxymbjBWXAFTMOXA6142-69-80 20:32:00 Test Item Value Reference Range Interpretation Comments UA Nitrite (test code Negative (11/26/2012 N = UA Nitrite) 14:32:00) [facility] HospitalDshjvuqKEWRMWIEIR4740-43-70 20:32:00 Test Item Value Reference Range Interpretation Comments UA Blood (test code = Negative (11/26/2012 N UA Blood) 14:32:00) [facility] [facility]ioSPMSODJYUP6908-61-34 20:32:00 Test Item Value Reference Range Interpretation Comments UA Color (test code = Yellow *NA*(11/26/2012 UA Color) 14:32:00) [facility]WwgheavAOSQLAFPTO4949-23-65 20:32:00 Test Item Value Reference Range Interpretation Comments UA pH (test code = UA pH) 6.0 5.0-8.0 N [facility] HospitalIcgollgVVTPJZMXZB6921-03-62 20:32:00 Test Item Value Reference Range Interpretation Comments UA Spec Grav (test code = UA Spec Grav) 1.016 N [facility] HospitalAfynkgwZAKJHNZZAC3754-39-95 20:32:00 Test Item Value Reference Range Interpretation Comments UA Turbidity (test code Slight A = UA Turbidity) *ABN*(11/26/2012 14:32:00) [facility] HospitalMdnuahkRIVVGWSLFV3643-05-97 20:32:00 Test Item Value Reference Range Interpretation Comments UA Glucose (test code Negative mg/dL = UA Glucose) *NA*(11/26/2012 14:32:00) [facility]CvlqvpqXSLEHRJHK6237-84-65 20:32:00 Test Item Value Reference Range Interpretation Comments A/G Ratio (test code = A/G Ratio) 0.9 0.7-1.6 N [facility] CenterYrjhiybTVDIIMKBT4300-18-22 20:32:00 Test Item Value Reference Range Interpretation Comments Globulin (test code = Globulin) 4.4 2.0-4.0 H [facility] CenterEmevmmjPTHKMYAME7602-81-09 20:32:00 Test Item Value Reference Range Interpretation Comments AGAP (test code = AGAP) 13.0 10.0-20.0 N [facility] CenterPgccxbdDQEWIJEDM3474-69-44 20:32:00 Test Item Value Reference Range Interpretation Comments B/C Ratio (test code = B/C Ratio) 18 6-25 N [facility] CenterIfluxyxSAZUUNNDX0209-91-75 20:32:00 Test Item Value Reference Range Interpretation Comments AST (test code = AST) 24 <=37 N [facility] CenterMaphlybGDMCSIKII0251-21-57 20:32:00 Test Item Value Reference Range Interpretation Comments Bili Total (test code = Bili Total) 0.5 0.2-1.3 N [facility] CenterInizgvzGHXDHZHGW2310-10-13 20:32:00 Test Item Value Reference Range Interpretation Comments Alk Phos (test code = Alk Phos) 98 39-136 N [facility] CenterXhcegumMWPMDYWES2112-37-36 20:32:00 Test Item Value Reference Range Interpretation Comments ALT (test code = ALT) 37 <=65 N [facility] CenterHyxwwedSCIELXDPZ0157-52-92 20:32:00 Test Item Value Reference Range Interpretation Comments Total Protein (test code = Total 8.5 6.4-8.4 H Protein) [facility] CenterBvzqcpwKDLBHHWMA1365-98-18 20:32:00 Test Item Value Reference Range Interpretation Comments eGFR (test code = eGFR) 128 [facility] CenterHweuvkaAZWTLOZOJ1731-51-02 20:32:00 Test Item Value Reference Range Interpretation Comments Albumin Lvl (test code = Albumin Lvl) 4.1 3.5-5.0 N [facility] CenterFnheldbSMWQGYOIY1115-30-46 20:32:00 Test Item Value Reference Range Interpretation Comments Chloride Lvl (test code = Chloride Lvl) 100 95-109 N [facility] CenterBbvkhtuUPQQKUFBO9331-84-97 20:32:00 Test Item Value Reference Range Interpretation Comments Potassium Lvl (test code = Potassium 4.0 3.5-5.1 N Lvl) [facility] CenterUswyayoZADFPQWWM7309-99-63 20:32:00 Test Item Value Reference Range Interpretation Comments CO2 (test code = CO2) 28 24-32 N [facility] CenterOfgpwuuYUNSQXPIL8636-98-55 20:32:00 Test Item Value Reference Range Interpretation Comments Sodium Lvl (test code = Sodium Lvl) 137 135-145 N [facility] CenterIreojhiAHIHQUTOV6010-35-75 20:32:00 Test Item Value Reference Range Interpretation Comments Calcium Lvl (test code = Calcium Lvl) 9.1 8.5-10.5 N [facility] CenterImebiloBPEJTTPAX7686-77-34 20:32:00 Test Item Value Reference Range Interpretation Comments Creatinine Lvl (test code = Creatinine 0.5 0.5-1.4 N Lvl) [facility] CenterAmuqdmzAEPSZWIAS1953-11-39 20:32:00 Test Item Value Reference Range Interpretation Comments Glucose Lvl (test code = Glucose Lvl) 81 70-99 N [facility] CenterBdwzqdbKICIUNOBK0662-67-85 20:32:00 Test Item Value Reference Range Interpretation Comments BUN (test code = BUN) 9 7-22 N [facility] CenterAqkswqtIGOSHQMVS2928-95-66 20:32:00 Test Item Value Reference Range Interpretation Comments Vitamin D 1,25 (OH)2 Total (test code = 52 18-72 Vitamin D 1,25 (OH)2 Total) [facility] CenterXgrfxrsXVXOYDGHZ7388-84-32 20:32:00 Test Item Value Reference Range Interpretation Comments Vitamin D2 1,25 (OH)2 (test code = no gt Vitamin D2 1,25 (OH)2) [facility] CenterTdzehzpQRXEJRZGT6848-46-65 20:32:00 Test Item Value Reference Range Interpretation Comments Vitamin D3 1,25 (OH)2 (test code = 52 Vitamin D3 1,25 (OH)2) [facility]KmxsuxhCIBBTQFGJI7550-29-07 20:32:00 Test Item Value Reference Range Interpretation Comments MPV (test code = MPV) 8.7 7.4-10.4 N [facility] CenterRfvklasMEKJJCFNIR5917-85-78 20:32:00 Test Item Value Reference Range Interpretation Comments Hgb (test code = Hgb) 12.0 12.0-16.0 N [facility] CenterLaunoadFKDCVBROVB0918-68-74 20:32:00 Test Item Value Reference Range Interpretation Comments RBC (test code = RBC) 4.51 4.20-5.40 N [facility] CenterIcbticiQEPTEQVXIC0326-65-74 20:32:00 Test Item Value Reference Range Interpretation Comments WBC (test code = WBC) 15.6 3.7-10.4 H [facility] CenterBjebystISODWUUKGT1808-19-94 20:32:00 Test Item Value Reference Range Interpretation Comments Hct (test code = Hct) 37.0 36.0-48.0 N [facility] CenterOubiwokPUEFVIOWAM0329-46-69 20:32:00 Test Item Value Reference Range Interpretation Comments MCV (test code = MCV) 82.0 81.0-99.0 N [facility] CenterMbresupXMNYUQYDQN8461-47-32 20:32:00 Test Item Value Reference Range Interpretation Comments RDW (test code = RDW) 15.9 11.5-14.5 H [facility] CenterDlsreopEGCLHHWQXU3650-39-36 20:32:00 Test Item Value Reference Range Interpretation Comments MCHC (test code = MCHC) 32.3 32.0-36.0 N [facility] CenterHbhwdkrHJAVVJARIJ7822-66-39 20:32:00 Test Item Value Reference Range Interpretation Comments MCH (test code = MCH) 26.5 pg 27.0-31.0 L [facility] CenterOmihuiiACTLXGHPFN9681-18-29 20:32:00 Test Item Value Reference Range Interpretation Comments Platelet (test code = Platelet) 371 133-450 N [facility] CenterVnyvaovTDKIIWWAXE2102-97-63 20:32:00 Test Item Value Reference Range Interpretation Comments Polychrom (test code = Slight (11/26/2012 N Polychrom) 14:32:00) [facility] CenterQyjuyllIWKGIDJQUE1469-22-45 20:32:00 Test Item Value Reference Range Interpretation Comments Large Plt (test code = Slight *ABN*(11/26/2012 A Large Plt) 14:32:00) [facility] CenterEyovghuZKBEUHXWFI3735-72-82 20:32:00 Test Item Value Reference Range Interpretation Comments Segs (test code = Segs) 73.0 45.0-75.0 N [facility] CenterOvvubjvBEKMVRYRNK4968-89-07 20:32:00 Test Item Value Reference Range Interpretation Comments Eosinophils # (test code = Eosinophils 0.2 <=0.5 N #) [facility] CenterXsyhxoqHZCLLVMMFU8827-65-23 20:32:00 Test Item Value Reference Range Interpretation Comments Basophils # (test code = Basophils #) 0.1 <=0.2 N [facility] CenterRhqzckeBOLCKALLVD8743-74-50 20:32:00 Test Item Value Reference Range Interpretation Comments Lymphocytes (test code = Lymphocytes) 21.3 20.0-40.0 N [facility] CenterZpnaonmKWVIYOARHI7957-67-36 20:32:00 Test Item Value Reference Range Interpretation Comments Segs-Bands # (test code = Segs-Bands #) 11.4 1.5-8.1 H [facility] CenterXdttrhnJHBSSFJROY3796-23-40 20:32:00 Test Item Value Reference Range Interpretation Comments Eosinophils (test code = Eosinophils) 1.1 <=4.0 N [facility] CenterCzwekxuWJVMCUREGI2268-78-90 20:32:00 Test Item Value Reference Range Interpretation Comments Basophils (test code = Basophils) 0.5 <=1.0 N [facility] CenterDzyiqwmWSNIKTQHQM3561-80-05 20:32:00 Test Item Value Reference Range Interpretation Comments Monocytes (test code = Monocytes) 4.1 2.0-12.0 N [facility] CenterRcpbqurSCHHFCVOZZ9055-85-48 20:32:00 Test Item Value Reference Range Interpretation Comments Lymphocytes # (test code = Lymphocytes 3.3 1.0-5.5 N #) [facility] CenterXkflvxaDOYPSRHJQI4856-10-91 20:32:00 Test Item Value Reference Range Interpretation Comments Monocytes # (test code = Monocytes #) 0.6 <=0.8 N [facility] CenterLqpmqmlROHAXYAIMA2175-24-88 20:32:00 Test Item Value Reference Range Interpretation Comments PTT (test code = PTT) 28.5 s 22.9-35.8 N [facility] CenterOqnpzwfIDLHSLLJIN0361-86-45 20:32:00 Test Item Value Reference Range Interpretation Comments PT (test code = PT) 12.9 s 12.0-14.7 N [facility] CenterDxvwgomFCREUOIXUO1864-97-80 20:32:00 Test Item Value Reference Range Interpretation Comments INR (test code = INR) 0.95 0.85-1.17 N [facility] HospitalSgbfxorRFBFBNUKSG3724-52-83 20:32:00 Test Item Value Reference Range Interpretation Comments UA Urobilinogen (test code *NA*(11/26/2012 0.1-1.0 = UA Urobilinogen) 14:32:00) [facility] HospitalFvdzprcSXNCVLELAX5506-51-13 20:32:00 Test Item Value Reference Range Interpretation Comments UA Bacteria (test code Occasional /HPF = UA Bacteria) *NA*(11/26/2012 14:32:00) [facility] HospitalRyxjwniUKBEWBHRRV4245-91-56 20:32:00 Test Item Value Reference Range Interpretation Comments UA RBC (test code = UA RBC) 1 <=2 N [facility] HospitalFgqyaukWMNCGFDWDM3099-49-69 20:32:00 Test Item Value Reference Range Interpretation Comments UA WBC (test code = UA WBC) 3 <=5 N [facility] HospitalZtyirfqHCBRJJIZHK8769-63-57 20:32:00 Test Item Value Reference Range Interpretation Comments UA Sq Epi (test code = Many /LPF A UA Sq Epi) *ABN*(11/26/2012 14:32:00) [facility] HospitalJpzlnwhZOSLWRNZIL0309-50-26 20:32:00 Test Item Value Reference Range Interpretation Comments Micro? (test code = Performed *NA*(11/26/2012 Micro?) 14:32:00) [facility] HospitalYetfwpvXADSSKBGUF0038-38-47 20:32:00 Test Item Value Reference Range Interpretation Comments UA Mucus (test code = Few /LPF UA Mucus) *NA*(11/26/2012 14:32:00) [facility] HospitalVeazxdlZHNZCUTITJ9908-58-81 20:32:00 Test Item Value Reference Range Interpretation Comments UA Bili (test code = Negative *NA*(11/26/2012 UA Bili) 14:32:00) [facility] HospitalYownvnjDUJQTCQGIS3045-29-14 20:32:00 Test Item Value Reference Range Interpretation Comments UA Ketones (test code Negative mg/dL = UA Ketones) *NA*(11/26/2012 14:32:00) [facility] HospitalAhjhgcaWBARDSZPWJ4925-29-36 20:32:00 Test Item Value Reference Range Interpretation Comments UA Protein (test code Negative mg/dL N = UA Protein) (11/26/2012 14:32:00) [facility] HospitalYdflihfCMWFEIUHKM7676-15-61 20:32:00 Test Item Value Reference Range Interpretation Comments UA Leuk Est (test code Trace *ABN*(11/26/2012 A = UA Leuk Est) 14:32:00) [facility] HospitalDcrqdcmXOXPDTGWCI6106-64-34 20:32:00 Test Item Value Reference Range Interpretation Comments UA Nitrite (test code Negative (11/26/2012 N = UA Nitrite) 14:32:00) [facility] HospitalZbowoluGZZHMCIOBK2628-15-47 20:32:00 Test Item Value Reference Range Interpretation Comments UA Blood (test code = Negative (11/26/2012 N UA Blood) 14:32:00) [facility] HospitalOpicpwuVRYQEUHQAU5644-23-05 20:32:00 Test Item Value Reference Range Interpretation Comments UA Color (test code = Yellow *NA*(11/26/2012 UA Color) 14:32:00) [facility] HospitalDrtbkehLSFRESAKQI4228-89-68 20:32:00 Test Item Value Reference Range Interpretation Comments UA pH (test code = UA pH) 6.0 5.0-8.0 N [facility]RdxconsXJDUYSISLC7904-72-59 20:32:00 Test Item Value Reference Range Interpretation Comments UA Spec Grav (test code = UA Spec Grav) 1.016 N [facility] HospitalIecuwwzGQNNKOOYZI0013-14-82 20:32:00 Test Item Value Reference Range Interpretation Comments UA Turbidity (test code Slight A = UA Turbidity) *ABN*(11/26/2012 14:32:00) [facility] HospitalKonrncqODNJIXBQMF7608-84-64 20:32:00 Test Item Value Reference Range Interpretation Comments UA Glucose (test code Negative mg/dL = UA Glucose) *NA*(11/26/2012 14:32:00) [facility] CenterGcjczbcAADJCYSCH5300-17-53 20:32:00 Test Item Value Reference Range Interpretation Comments A/G Ratio (test code = A/G Ratio) 0.9 0.7-1.6 N [facility] CenterGgdexabWKOJMMZMC1971-85-58 20:32:00 Test Item Value Reference Range Interpretation Comments Globulin (test code = Globulin) 4.4 2.0-4.0 H [facility] CenterWhxpcdeWOYBBWCDW0203-47-72 20:32:00 Test Item Value Reference Range Interpretation Comments AGAP (test code = AGAP) 13.0 10.0-20.0 N [facility] CenterNadmsfcEAYBOHYAX7094-38-84 20:32:00 Test Item Value Reference Range Interpretation Comments B/C Ratio (test code = B/C Ratio) 18 6-25 N [facility] CenterGfzazcyJXJEYUGVJ7128-58-20 20:32:00 Test Item Value Reference Range Interpretation Comments AST (test code = AST) 24 <=37 N [facility] CenterYwhxlhsUEDMAWAMW7011-48-80 20:32:00 Test Item Value Reference Range Interpretation Comments Bili Total (test code = Bili Total) 0.5 0.2-1.3 N [facility] CenterVffwsymMPPWLKNPV7874-31-66 20:32:00 Test Item Value Reference Range Interpretation Comments Alk Phos (test code = Alk Phos) 98 39-136 N [facility] CenterTlgumkuXXPJYESVJ9605-30-50 20:32:00 Test Item Value Reference Range Interpretation Comments ALT (test code = ALT) 37 <=65 N [facility] CenterXjmlzmyKVFIVIYTH9237-75-31 20:32:00 Test Item Value Reference Range Interpretation Comments Total Protein (test code = Total 8.5 6.4-8.4 H Protein) [facility] CenterRdsjkegYFYVBJKFV9317-69-98 20:32:00 Test Item Value Reference Range Interpretation Comments eGFR (test code = eGFR) 128 [facility] CenterAwrmyeyLEBFGXHOL5793-07-71 20:32:00 Test Item Value Reference Range Interpretation Comments Albumin Lvl (test code = Albumin Lvl) 4.1 3.5-5.0 N [facility] CenterPbktxjgQZALZYNJP7633-54-22 20:32:00 Test Item Value Reference Range Interpretation Comments Chloride Lvl (test code = Chloride Lvl) 100 95-109 N [facility] CenterUvcnurrOSYWEWDQE3365-24-51 20:32:00 Test Item Value Reference Range Interpretation Comments Potassium Lvl (test code = Potassium 4.0 3.5-5.1 N Lvl) [facility] CenterGsiokcpUJAKYIWYB5640-64-71 20:32:00 Test Item Value Reference Range Interpretation Comments CO2 (test code = CO2) 28 24-32 N [facility] CenterUldqjxvEIUGTKICH7733-71-27 20:32:00 Test Item Value Reference Range Interpretation Comments Sodium Lvl (test code = Sodium Lvl) 137 135-145 N [facility] CenterZhhtfvaYARWUUTPD2233-56-40 20:32:00 Test Item Value Reference Range Interpretation Comments Calcium Lvl (test code = Calcium Lvl) 9.1 8.5-10.5 N [facility] CenterWbjgptkVGVIIGEOS8319-92-21 20:32:00 Test Item Value Reference Range Interpretation Comments Creatinine Lvl (test code = Creatinine 0.5 0.5-1.4 N Lvl) [facility] CenterVreprybNCTLBDDTV7046-70-30 20:32:00 Test Item Value Reference Range Interpretation Comments Glucose Lvl (test code = Glucose Lvl) 81 70-99 N [facility] CenterHooarksNHGETNRPC3460-71-09 20:32:00 Test Item Value Reference Range Interpretation Comments BUN (test code = BUN) 9 7-22 N [facility] CenterGrgflfsWJWLNAVBG3435-86-35 20:32:00 Test Item Value Reference Range Interpretation Comments Vitamin D 1,25 (OH)2 Total (test code = 52 18-72 Vitamin D 1,25 (OH)2 Total) [facility] CenterUrxnphqLNBXIQCCD7834-00-67 20:32:00 Test Item Value Reference Range Interpretation Comments Vitamin D2 1,25 (OH)2 (test code = no gt Vitamin D2 1,25 (OH)2) [facility] CenterEdjkzyrDBYOSBXWC4700-55-87 20:32:00 Test Item Value Reference Range Interpretation Comments Vitamin D3 1,25 (OH)2 (test code = 52 Vitamin D3 1,25 (OH)2) [facility] CenterTdxvmufNWMFURYOLQ1842-73-23 20:32:00 Test Item Value Reference Range Interpretation Comments MPV (test code = MPV) 8.7 7.4-10.4 N [place] 889543-02-21 20:32:00 Test Item Value Reference Range Interpretation Comments Hgb (test code = Hgb) 12.0 12.0-16.0 N [facility] CenterXeoerknDBRJOKJUPS2344-39-02 20:32:00 Test Item Value Reference Range Interpretation Comments RBC (test code = RBC) 4.51 4.20-5.40 N [facility] CenterZqfhjpfNMXEQWKVWN0453-41-32 20:32:00 Test Item Value Reference Range Interpretation Comments WBC (test code = WBC) 15.6 3.7-10.4 H [facility] CenterAordvjpIXQMARPOGF4433-86-02 20:32:00 Test Item Value Reference Range Interpretation Comments Hct (test code = Hct) 37.0 36.0-48.0 N [facility] CenterQefuhskOIYLOWVVPK7887-37-33 20:32:00 Test Item Value Reference Range Interpretation Comments MCV (test code = MCV) 82.0 81.0-99.0 N [facility] CenterOqnwkodUMGFDWLRLS9561-97-40 20:32:00 Test Item Value Reference Range Interpretation Comments RDW (test code = RDW) 15.9 11.5-14.5 H [facility] CenterKqktgpiUFFYWNTWCC6326-81-53 20:32:00 Test Item Value Reference Range Interpretation Comments MCHC (test code = MCHC) 32.3 32.0-36.0 N [facility] CenterQllkkzyDFBDPJZBCX1436-80-03 20:32:00 Test Item Value Reference Range Interpretation Comments MCH (test code = MCH) 26.5 pg 27.0-31.0 L [facility] CenterJepznukHACDZBRJKS7396-60-64 20:32:00 Test Item Value Reference Range Interpretation Comments Platelet (test code = Platelet) 371 133-450 N [facility] CenterPrhybolSNXDXIKTEZ8969-10-24 20:32:00 Test Item Value Reference Range Interpretation Comments Polychrom (test code = Slight (11/26/2012 N Polychrom) 14:32:00) [facility] CenterTjxwymaBZKONRERFR4287-93-08 20:32:00 Test Item Value Reference Range Interpretation Comments Large Plt (test code = Slight *ABN*(11/26/2012 A Large Plt) 14:32:00) [facility] CenterGobxdwcUPDHPRVTBW6882-57-13 20:32:00 Test Item Value Reference Range Interpretation Comments Segs (test code = Segs) 73.0 45.0-75.0 N [facility] CenterVpnbskcFZRZPUELMA3987-61-72 20:32:00 Test Item Value Reference Range Interpretation Comments Eosinophils # (test code = Eosinophils 0.2 <=0.5 N #) [facility] CenterWlbimfwRXHAKEUTJD8710-09-23 20:32:00 Test Item Value Reference Range Interpretation Comments Basophils # (test code = Basophils #) 0.1 <=0.2 N [facility] CenterKgdhxafICQMKKCSCB0288-65-74 20:32:00 Test Item Value Reference Range Interpretation Comments Lymphocytes (test code = Lymphocytes) 21.3 20.0-40.0 N [facility] CenterJkjvusaXPBOXKNZRE1612-43-55 20:32:00 Test Item Value Reference Range Interpretation Comments Segs-Bands # (test code = Segs-Bands #) 11.4 1.5-8.1 H [facility] CenterCycfayjPFFGLXGKBY4551-97-09 20:32:00 Test Item Value Reference Range Interpretation Comments Eosinophils (test code = Eosinophils) 1.1 <=4.0 N [facility] CenterFifjjrmRPPCDFVHTK2991-91-13 20:32:00 Test Item Value Reference Range Interpretation Comments Basophils (test code = Basophils) 0.5 <=1.0 N [facility] CenterYbetarpOPKLBODWOX4916-46-69 20:32:00 Test Item Value Reference Range Interpretation Comments Monocytes (test code = Monocytes) 4.1 2.0-12.0 N [facility] CenterLuyneqjXEZONPIHCN1852-95-64 20:32:00 Test Item Value Reference Range Interpretation Comments Lymphocytes # (test code = Lymphocytes 3.3 1.0-5.5 N #) [facility] CenterQzbtbwpXHBYASJNIQ0224-35-37 20:32:00 Test Item Value Reference Range Interpretation Comments Monocytes # (test code = Monocytes #) 0.6 <=0.8 N [place] [address]-02-21 20:32:00 Test Item Value Reference Range Interpretation Comments PTT (test code = PTT) 28.5 s 22.9-35.8 N [facility] CenterKokszlcXAUAPCJLXD4294-92-35 20:32:00 Test Item Value Reference Range Interpretation Comments PT (test code = PT) 12.9 s 12.0-14.7 N [facility]AtkaowdOJGNWXHJKB0135-01-55 20:32:00 Test Item Value Reference Range Interpretation Comments INR (test code = INR) 0.95 0.85-1.17 N [facility] HospitalEbeakqlCOZCPXPYXJ3084-95-22 20:32:00 Test Item Value Reference Range Interpretation Comments UA Urobilinogen (test code *NA*(11/26/2012 0.1-1.0 = UA Urobilinogen) 14:32:00) [facility]WftssijZBHLBYAQWP4253-49-38 20:32:00 Test Item Value Reference Range Interpretation Comments UA Bacteria (test code Occasional /HPF = UA Bacteria) *NA*(11/26/2012 14:32:00) [facility]IsxtzazFVTOYTXMNM2598-21-79 20:32:00 Test Item Value Reference Range Interpretation Comments UA RBC (test code = UA RBC) 1 <=2 N [facility]anoOyugkhwLYRIWQOQQF5915-94-12 20:32:00 Test Item Value Reference Range Interpretation Comments UA WBC (test code = UA WBC) 3 <=5 N [facility]anoMuykgtoZZADTVGBSZ3053-92-18 20:32:00 Test Item Value Reference Range Interpretation Comments UA Sq Epi (test code = Many /LPF A UA Sq Epi) *ABN*(11/26/2012 14:32:00) [facility] HospitalLhzlhyiRVFNTTAPDI8461-20-39 20:32:00 Test Item Value Reference Range Interpretation Comments Micro? (test code = Performed *NA*(11/26/2012 Micro?) 14:32:00) [facility]XtdlojjKSSPLLVHJZ4646-28-26 20:32:00 Test Item Value Reference Range Interpretation Comments UA Mucus (test code = Few /LPF UA Mucus) *NA*(11/26/2012 14:32:00) [facility]anoAjuqwhdHDCRZGJPIM4625-37-40 20:32:00 Test Item Value Reference Range Interpretation Comments UA Bili (test code = Negative *NA*(11/26/2012 UA Bili) 14:32:00) [facility]XtmmrjyXTSZHSBZCX4888-97-10 20:32:00 Test Item Value Reference Range Interpretation Comments UA Ketones (test code Negative mg/dL = UA Ketones) *NA*(11/26/2012 14:32:00) [facility] HospitalPlzoasiBAXTKURWGV5941-02-04 20:32:00 Test Item Value Reference Range Interpretation Comments UA Protein (test code Negative mg/dL N = UA Protein) (11/26/2012 14:32:00) [facility] HospitalYxdanaqYBARADBKUF1335-84-15 20:32:00 Test Item Value Reference Range Interpretation Comments UA Leuk Est (test code Trace *ABN*(11/26/2012 A = UA Leuk Est) 14:32:00) [facility] HospitalYgdixxoUXBUNGRNHM8622-59-71 20:32:00 Test Item Value Reference Range Interpretation Comments UA Nitrite (test code Negative (11/26/2012 N = UA Nitrite) 14:32:00) [facility] HospitalAaqmwgqMMRTFZYFLV0008-27-93 20:32:00 Test Item Value Reference Range Interpretation Comments UA Blood (test code = Negative (11/26/2012 N UA Blood) 14:32:00) [facility] HospitalYxpjzxcYMAABAHECU1331-41-69 20:32:00 Test Item Value Reference Range Interpretation Comments UA Color (test code = Yellow *NA*(11/26/2012 UA Color) 14:32:00) [facility] HospitalLhytlraTJBGXHCCKS2357-27-42 20:32:00 Test Item Value Reference Range Interpretation Comments UA pH (test code = UA pH) 6.0 5.0-8.0 N [facility] HospitalUqjvxfmXMNEFWNRGZ8581-78-25 20:32:00 Test Item Value Reference Range Interpretation Comments UA Spec Grav (test code = UA Spec Grav) 1.016 N [facility] HospitalPkptiyaWKZEWXSPGI0530-96-58 20:32:00 Test Item Value Reference Range Interpretation Comments UA Turbidity (test code Slight A = UA Turbidity) *ABN*(11/26/2012 14:32:00) [facility] HospitalFakzrwpEMZAYKIMYI9027-84-27 20:32:00 Test Item Value Reference Range Interpretation Comments UA Glucose (test code Negative mg/dL = UA Glucose) *NA*(11/26/2012 14:32:00) [facility] CenterCcxnnzaOGZXXDPSI3462-52-85 20:32:00 Test Item Value Reference Range Interpretation Comments A/G Ratio (test code = A/G Ratio) 0.9 0.7-1.6 N [facility] CenterOqwlvrmFKQISESNW3058-97-81 20:32:00 Test Item Value Reference Range Interpretation Comments Globulin (test code = Globulin) 4.4 2.0-4.0 H [facility] CenterZvlfvitBDZSYVFWT3840-05-72 20:32:00 Test Item Value Reference Range Interpretation Comments AGAP (test code = AGAP) 13.0 10.0-20.0 N [facility] CenterNcvuberZLPBEHKXX1860-84-68 20:32:00 Test Item Value Reference Range Interpretation Comments B/C Ratio (test code = B/C Ratio) 18 6-25 N [facility] CenterYskvfygLFGQCJVUA8693-76-35 20:32:00 Test Item Value Reference Range Interpretation Comments AST (test code = AST) 24 <=37 N [facility] CenterHffpfypWHYIRIWHJ4037-17-48 20:32:00 Test Item Value Reference Range Interpretation Comments Bili Total (test code = Bili Total) 0.5 0.2-1.3 N [facility]HswkvqsMDQDBNXHI4037-38-26 20:32:00 Test Item Value Reference Range Interpretation Comments Alk Phos (test code = Alk Phos) 98 39-136 N [facility] CenterUdgtqorZKYTSYWAH6601-40-70 20:32:00 Test Item Value Reference Range Interpretation Comments ALT (test code = ALT) 37 <=65 N [facility] CenterYovkfmqRETNQFNOU7009-37-65 20:32:00 Test Item Value Reference Range Interpretation Comments Total Protein (test code = Total 8.5 6.4-8.4 H Protein) [facility] CenterGzegkcyCECCRLAAM1829-85-86 20:32:00 Test Item Value Reference Range Interpretation Comments eGFR (test code = eGFR) 128 [facility] CenterMaslaicDLTZTNRXN2953-99-69 20:32:00 Test Item Value Reference Range Interpretation Comments Albumin Lvl (test code = Albumin Lvl) 4.1 3.5-5.0 N [facility] CenterFdzzjyfCWGFXXZCT5998-89-29 20:32:00 Test Item Value Reference Range Interpretation Comments Chloride Lvl (test code = Chloride Lvl) 100 95-109 N [facility] CenterPawudglQGZSCSODP0364-69-99 20:32:00 Test Item Value Reference Range Interpretation Comments Potassium Lvl (test code = Potassium 4.0 3.5-5.1 N Lvl) [facility] CenterKefcyfjBUJKBMQYY8163-35-96 20:32:00 Test Item Value Reference Range Interpretation Comments CO2 (test code = CO2) 28 24-32 N [facility] CenterMptobiiLFWHMTLFO9107-29-66 20:32:00 Test Item Value Reference Range Interpretation Comments Sodium Lvl (test code = Sodium Lvl) 137 135-145 N [facility] CenterMliqudhCBLKHNNJD0590-48-65 20:32:00 Test Item Value Reference Range Interpretation Comments Calcium Lvl (test code = Calcium Lvl) 9.1 8.5-10.5 N [facility] CenterTjcnklhJZXGHRHRN0375-57-23 20:32:00 Test Item Value Reference Range Interpretation Comments Creatinine Lvl (test code = Creatinine 0.5 0.5-1.4 N Lvl) [facility] CenterKvjdrclSHSPXCETB2476-17-71 20:32:00 Test Item Value Reference Range Interpretation Comments Glucose Lvl (test code = Glucose Lvl) 81 70-99 N [facility] CenterVjbmsjtGTEYHBKOS2845-57-90 20:32:00 Test Item Value Reference Range Interpretation Comments BUN (test code = BUN) 9 7-22 N [facility] CenterHcpxrzwKYVUIKDQL6657-49-34 20:32:00 Test Item Value Reference Range Interpretation Comments Vitamin D 1,25 (OH)2 Total (test code = 52 18-72 Vitamin D 1,25 (OH)2 Total) [facility] CenterZgkkolgRCYDJOTXU4445-48-38 20:32:00 Test Item Value Reference Range Interpretation Comments Vitamin D2 1,25 (OH)2 (test code = no gt Vitamin D2 1,25 (OH)2) [facility] CenterCefnovlWQCRPOAGE7107-03-01 20:32:00 Test Item Value Reference Range Interpretation Comments Vitamin D3 1,25 (OH)2 (test code = 52 Vitamin D3 1,25 (OH)2) [facility]ZtomhprMHVMAYLMQD9409-30-93 20:32:00 Test Item Value Reference Range Interpretation Comments MPV (test code = MPV) 8.7 7.4-10.4 N [facility] CenterXnvdtnlQDMUAGRXOK0078-34-00 20:32:00 Test Item Value Reference Range Interpretation Comments Hgb (test code = Hgb) 12.0 12.0-16.0 N [facility] CenterGiztxhnMGXQYNEDHT6919-26-59 20:32:00 Test Item Value Reference Range Interpretation Comments RBC (test code = RBC) 4.51 4.20-5.40 N [facility] CenterXsafmgpCLWLKNYRMT0339-96-25 20:32:00 Test Item Value Reference Range Interpretation Comments WBC (test code = WBC) 15.6 3.7-10.4 H [facility] CenterNzjfmrzIKRYNMXYDT0027-30-77 20:32:00 Test Item Value Reference Range Interpretation Comments Hct (test code = Hct) 37.0 36.0-48.0 N [facility] CenterDjmnqbmXYFLWLFNOF4185-07-44 20:32:00 Test Item Value Reference Range Interpretation Comments MCV (test code = MCV) 82.0 81.0-99.0 N [facility] CenterYpebecuFSTLTPODIM9114-15-15 20:32:00 Test Item Value Reference Range Interpretation Comments RDW (test code = RDW) 15.9 11.5-14.5 H [facility] CenterQohzzakPWIVOZTOGF5539-51-88 20:32:00 Test Item Value Reference Range Interpretation Comments MCHC (test code = MCHC) 32.3 32.0-36.0 N [facility] CenterCymtxioWTVRRDRFRT6260-29-32 20:32:00 Test Item Value Reference Range Interpretation Comments MCH (test code = MCH) 26.5 pg 27.0-31.0 L [facility] CenterOhngvagILNCPZYSGY2863-58-29 20:32:00 Test Item Value Reference Range Interpretation Comments Platelet (test code = Platelet) 371 133-450 N [facility] CenterOyfuleoKJPVZETEHH3691-31-53 20:32:00 Test Item Value Reference Range Interpretation Comments Polychrom (test code = Slight (11/26/2012 N Polychrom) 14:32:00) [facility] CenterZgvfjgsMPMTTASSIY7949-62-02 20:32:00 Test Item Value Reference Range Interpretation Comments Large Plt (test code = Slight *ABN*(11/26/2012 A Large Plt) 14:32:00) [facility] CenterFbggjfoDETNDGHNAR3367-01-89 20:32:00 Test Item Value Reference Range Interpretation Comments Segs (test code = Segs) 73.0 45.0-75.0 N [facility] CenterBcxwazyOOBNUWNFXB4800-64-88 20:32:00 Test Item Value Reference Range Interpretation Comments Eosinophils # (test code = Eosinophils 0.2 <=0.5 N #) [facility] CenterLrwvjzdRCKVYFGDRY6983-55-28 20:32:00 Test Item Value Reference Range Interpretation Comments Basophils # (test code = Basophils #) 0.1 <=0.2 N [facility] CenterWsjpujqONJZXWUWYH1156-42-25 20:32:00 Test Item Value Reference Range Interpretation Comments Lymphocytes (test code = Lymphocytes) 21.3 20.0-40.0 N [facility] CenterWmytygvUJUAFGXCXY5858-60-17 20:32:00 Test Item Value Reference Range Interpretation Comments Segs-Bands # (test code = Segs-Bands #) 11.4 1.5-8.1 H [facility] CenterSqvjmhuHILRFCVSCH7891-52-69 20:32:00 Test Item Value Reference Range Interpretation Comments Eosinophils (test code = Eosinophils) 1.1 <=4.0 N [facility] CenterVwspjnoWQXNCSSJZS9326-29-46 20:32:00 Test Item Value Reference Range Interpretation Comments Basophils (test code = Basophils) 0.5 <=1.0 N [facility] CenterThtaoqwOJNHEOODCX0002-21-78 20:32:00 Test Item Value Reference Range Interpretation Comments Monocytes (test code = Monocytes) 4.1 2.0-12.0 N [facility] CenterFdazlzzYWYHVEMMNM4677-31-68 20:32:00 Test Item Value Reference Range Interpretation Comments Lymphocytes # (test code = Lymphocytes 3.3 1.0-5.5 N #) [facility] CenterHspmyqxPPGIGCXFBE8084-40-67 20:32:00 Test Item Value Reference Range Interpretation Comments Monocytes # (test code = Monocytes #) 0.6 <=0.8 N [facility] CenterIigpdbhPBPHFIUHYH8745-29-41 20:32:00 Test Item Value Reference Range Interpretation Comments PTT (test code = PTT) 28.5 s 22.9-35.8 N [facility] CenterElneeknKQCSOTBHBP3358-61-91 20:32:00 Test Item Value Reference Range Interpretation Comments PT (test code = PT) 12.9 s 12.0-14.7 N [facility] CenterAexhvthBLYBAJJRVT1727-69-41 20:32:00 Test Item Value Reference Range Interpretation Comments INR (test code = INR) 0.95 0.85-1.17 N [facility]KnjwuzcWSLXSWPAST1958-26-85 20:32:00 Test Item Value Reference Range Interpretation Comments UA Urobilinogen (test code *NA*(11/26/2012 0.1-1.0 = UA Urobilinogen) 14:32:00) [facility] HospitalErleaalIRQJCVFXEX3920-94-90 20:32:00 Test Item Value Reference Range Interpretation Comments UA Bacteria (test code Occasional /HPF = UA Bacteria) *NA*(11/26/2012 14:32:00) [facility]RoucnozXCUBEJHDPI5437-17-84 20:32:00 Test Item Value Reference Range Interpretation Comments UA RBC (test code = UA RBC) 1 <=2 N [facility] HospitalHizzvhzJSFSVFXANU2475-48-71 20:32:00 Test Item Value Reference Range Interpretation Comments UA WBC (test code = UA WBC) 3 <=5 N [facility] HospitalLwllqdpRGLICNRQGK1390-84-52 20:32:00 Test Item Value Reference Range Interpretation Comments UA Sq Epi (test code = Many /LPF A UA Sq Epi) *ABN*(11/26/2012 14:32:00) [facility] HospitalJmayynoFPKXCKLDHS2427-51-88 20:32:00 Test Item Value Reference Range Interpretation Comments Micro? (test code = Performed *NA*(11/26/2012 Micro?) 14:32:00) [facility] HospitalJijspbkMRUQPWLRMK0838-42-10 20:32:00 Test Item Value Reference Range Interpretation Comments UA Mucus (test code = Few /LPF UA Mucus) *NA*(11/26/2012 14:32:00) [facility] HospitalEdznoojYLKZAOFURX6547-67-01 20:32:00 Test Item Value Reference Range Interpretation Comments UA Bili (test code = Negative *NA*(11/26/2012 UA Bili) 14:32:00) [facility] HospitalUbyrhuuPPWTZIKCKB7951-38-23 20:32:00 Test Item Value Reference Range Interpretation Comments UA Ketones (test code Negative mg/dL = UA Ketones) *NA*(11/26/2012 14:32:00) [facility]OjurcaiOTGNBLKFGQ9343-43-81 20:32:00 Test Item Value Reference Range Interpretation Comments UA Protein (test code Negative mg/dL N = UA Protein) (11/26/2012 14:32:00) [facility] HospitalHykywhfKTZORWYNKZ4332-12-53 20:32:00 Test Item Value Reference Range Interpretation Comments UA Leuk Est (test code Trace *ABN*(11/26/2012 A = UA Leuk Est) 14:32:00) [facility] HospitalTxsyqirDKSQTSPPKP5353-30-89 20:32:00 Test Item Value Reference Range Interpretation Comments UA Nitrite (test code Negative (11/26/2012 N = UA Nitrite) 14:32:00) [facility] HospitalVbcirqjJLHVKVYISJ1768-69-42 20:32:00 Test Item Value Reference Range Interpretation Comments UA Blood (test code = Negative (11/26/2012 N UA Blood) 14:32:00) [facility] HospitalPpaibnpMKYLKFWVEC4935-11-84 20:32:00 Test Item Value Reference Range Interpretation Comments UA Color (test code = Yellow *NA*(11/26/2012 UA Color) 14:32:00) [facility] HospitalYtpptwsHVZOKPWGNJ7300-63-97 20:32:00 Test Item Value Reference Range Interpretation Comments UA pH (test code = UA pH) 6.0 5.0-8.0 N [facility] HospitalJxficjlQPIOMLRFXG2809-59-62 20:32:00 Test Item Value Reference Range Interpretation Comments UA Spec Grav (test code = UA Spec Grav) 1.016 N [facility] HospitalJjidbvcGZWEZMSQIQ8592-56-02 20:32:00 Test Item Value Reference Range Interpretation Comments UA Turbidity (test code Slight A = UA Turbidity) *ABN*(11/26/2012 14:32:00) [facility] HospitalLqlikxyISMINMZRXZ9618-17-65 20:32:00 Test Item Value Reference Range Interpretation Comments UA Glucose (test code Negative mg/dL = UA Glucose) *NA*(11/26/2012 14:32:00) [facility] CenterKhviogvWCWZQFDRB9603-98-65 20:32:00 Test Item Value Reference Range Interpretation Comments A/G Ratio (test code = A/G Ratio) 0.9 0.7-1.6 N [facility] CenterQjokipwJTXQYWBMW2855-52-62 20:32:00 Test Item Value Reference Range Interpretation Comments Globulin (test code = Globulin) 4.4 2.0-4.0 H [facility] CenterEeuqwwvHTHBODPGA4548-87-94 20:32:00 Test Item Value Reference Range Interpretation Comments AGAP (test code = AGAP) 13.0 10.0-20.0 N [facility] CenterYwrkbzjWPHZUGPNK1760-95-19 20:32:00 Test Item Value Reference Range Interpretation Comments B/C Ratio (test code = B/C Ratio) 18 6-25 N [facility] CenterRevftlkZCRDNYSKE9852-88-03 20:32:00 Test Item Value Reference Range Interpretation Comments AST (test code = AST) 24 <=37 N [facility] CenterBwuykufPWXSNFVUB6442-48-73 20:32:00 Test Item Value Reference Range Interpretation Comments Bili Total (test code = Bili Total) 0.5 0.2-1.3 N [facility] CenterHazuixuMKKMMXMIB3128-46-84 20:32:00 Test Item Value Reference Range Interpretation Comments Alk Phos (test code = Alk Phos) 98 39-136 N [facility] CenterKurlcecIENWQGPWE4249-41-70 20:32:00 Test Item Value Reference Range Interpretation Comments ALT (test code = ALT) 37 <=65 N [facility] CenterLhaveqqESTPJRVRG9303-05-20 20:32:00 Test Item Value Reference Range Interpretation Comments Total Protein (test code = Total 8.5 6.4-8.4 H Protein) [facility] CenterWgcvzipSIQIAVADO6504-04-82 20:32:00 Test Item Value Reference Range Interpretation Comments eGFR (test code = eGFR) 128 [facility] CenterFqxkdgzOHXUTWESY1410-84-31 20:32:00 Test Item Value Reference Range Interpretation Comments Albumin Lvl (test code = Albumin Lvl) 4.1 3.5-5.0 N [facility] CenterAbeuoxiJPMHLTMWL9043-75-02 20:32:00 Test Item Value Reference Range Interpretation Comments Chloride Lvl (test code = Chloride Lvl) 100 95-109 N [facility] CenterZhmsznjQLVNHHKSA4803-23-07 20:32:00 Test Item Value Reference Range Interpretation Comments Potassium Lvl (test code = Potassium 4.0 3.5-5.1 N Lvl) [facility] CenterQjdtetrVULGFTHRP4166-22-66 20:32:00 Test Item Value Reference Range Interpretation Comments CO2 (test code = CO2) 28 24-32 N [facility] CenterUtmipzbONFJXARDY1376-11-62 20:32:00 Test Item Value Reference Range Interpretation Comments Sodium Lvl (test code = Sodium Lvl) 137 135-145 N [facility] CenterHoviurqIZPWARRQU8839-21-82 20:32:00 Test Item Value Reference Range Interpretation Comments Calcium Lvl (test code = Calcium Lvl) 9.1 8.5-10.5 N [facility] CenterIvybqjfMRDEWKJYU7505-20-37 20:32:00 Test Item Value Reference Range Interpretation Comments Creatinine Lvl (test code = Creatinine 0.5 0.5-1.4 N Lvl) [facility] CenterGmhhbzsNPTDDGWHZ0611-06-59 20:32:00 Test Item Value Reference Range Interpretation Comments Glucose Lvl (test code = Glucose Lvl) 81 70-99 N [facility] CenterMuhnlzbYSRTMKYYR2529-38-23 20:32:00 Test Item Value Reference Range Interpretation Comments BUN (test code = BUN) 9 7-22 N [facility] CenterGgplivwQPOVJBWPG0187-96-77 20:32:00 Test Item Value Reference Range Interpretation Comments Vitamin D 1,25 (OH)2 Total (test code = 52 18-72 Vitamin D 1,25 (OH)2 Total) [facility] CenterSgisrimKBNYLVAGF1185-61-28 20:32:00 Test Item Value Reference Range Interpretation Comments Vitamin D2 1,25 (OH)2 (test code = no gt Vitamin D2 1,25 (OH)2) [facility] CenterMoaaatgYPZHOFOVG9388-09-78 20:32:00 Test Item Value Reference Range Interpretation Comments Vitamin D3 1,25 (OH)2 (test code = 52 Vitamin D3 1,25 (OH)2) [facility] CenterSqjfvcxHOCRRUAIHH7547-41-28 20:32:00 Test Item Value Reference Range Interpretation Comments MPV (test code = MPV) 8.7 7.4-10.4 N [facility] CenterMnhntsmZLOCDPYIOC1165-42-33 20:32:00 Test Item Value Reference Range Interpretation Comments Hgb (test code = Hgb) 12.0 12.0-16.0 N [facility] CenterXclcrljOIUGTWJJII3883-26-83 20:32:00 Test Item Value Reference Range Interpretation Comments RBC (test code = RBC) 4.51 4.20-5.40 N [facility] CenterQlizihsMLGBDEGEPV7575-26-76 20:32:00 Test Item Value Reference Range Interpretation Comments WBC (test code = WBC) 15.6 3.7-10.4 H [place] 889543-02-21 20:32:00 Test Item Value Reference Range Interpretation Comments Hct (test code = Hct) 37.0 36.0-48.0 N [facility] CenterIrnwdcoPLNTDWITLK1647-61-56 20:32:00 Test Item Value Reference Range Interpretation Comments MCV (test code = MCV) 82.0 81.0-99.0 N [facility] CenterWmagmruPZGYOWYIIL6330-78-90 20:32:00 Test Item Value Reference Range Interpretation Comments RDW (test code = RDW) 15.9 11.5-14.5 H [facility] CenterVmigdctKFIYFHFHWI5066-61-40 20:32:00 Test Item Value Reference Range Interpretation Comments MCHC (test code = MCHC) 32.3 32.0-36.0 N [facility] CenterSfyebqcDCBTNQCXFO6321-31-11 20:32:00 Test Item Value Reference Range Interpretation Comments MCH (test code = MCH) 26.5 pg 27.0-31.0 L [facility] CenterAmuwjorCJIPFUDDES6257-42-05 20:32:00 Test Item Value Reference Range Interpretation Comments Platelet (test code = Platelet) 371 133-450 N [facility] CenterGxqfvwhRBIFBFDUNL8039-75-86 20:32:00 Test Item Value Reference Range Interpretation Comments Polychrom (test code = Slight (11/26/2012 N Polychrom) 14:32:00) [facility] CenterEqzuopmDAYTHMSHZY6017-45-56 20:32:00 Test Item Value Reference Range Interpretation Comments Large Plt (test code = Slight *ABN*(11/26/2012 A Large Plt) 14:32:00) [facility] CenterQsnhmwhJBCPHAOOJO4863-77-78 20:32:00 Test Item Value Reference Range Interpretation Comments Segs (test code = Segs) 73.0 45.0-75.0 N [facility] CenterGpxokgqUSJLLIAKNG0787-50-72 20:32:00 Test Item Value Reference Range Interpretation Comments Eosinophils # (test code = Eosinophils 0.2 <=0.5 N #) [facility] CenterUldhgbsEPQHYMEDMI2639-25-14 20:32:00 Test Item Value Reference Range Interpretation Comments Basophils # (test code = Basophils #) 0.1 <=0.2 N [facility] CenterFqdtwqhCMLSWXVZZJ3116-67-58 20:32:00 Test Item Value Reference Range Interpretation Comments Lymphocytes (test code = Lymphocytes) 21.3 20.0-40.0 N [facility] CenterXquhfxuTISIXYTNMX4283-18-70 20:32:00 Test Item Value Reference Range Interpretation Comments Segs-Bands # (test code = Segs-Bands #) 11.4 1.5-8.1 H [facility] CenterZpdukkmYBADINFZDS6422-19-01 20:32:00 Test Item Value Reference Range Interpretation Comments Eosinophils (test code = Eosinophils) 1.1 <=4.0 N [facility] CenterRutnzlxVTANVKVQDH5011-59-31 20:32:00 Test Item Value Reference Range Interpretation Comments Basophils (test code = Basophils) 0.5 <=1.0 N [facility] CenterLpufkfnPJKGNGQSTZ4939-75-34 20:32:00 Test Item Value Reference Range Interpretation Comments Monocytes (test code = Monocytes) 4.1 2.0-12.0 N [facility] CenterNgyjhrbFLIMTBMKXF5453-48-28 20:32:00 Test Item Value Reference Range Interpretation Comments Lymphocytes # (test code = Lymphocytes 3.3 1.0-5.5 N #) [facility] CenterMkpwaciLMVEWSNGZU2512-51-93 20:32:00 Test Item Value Reference Range Interpretation Comments Monocytes # (test code = Monocytes #) 0.6 <=0.8 N [facility] CenterLlcmfybIPTSGGRZLJ7147-32-27 20:32:00 Test Item Value Reference Range Interpretation Comments PTT (test code = PTT) 28.5 s 22.9-35.8 N [facility] CenterAbwomxdVSQXPVKANM0985-87-47 20:32:00 Test Item Value Reference Range Interpretation Comments PT (test code = PT) 12.9 s 12.0-14.7 N [facility] CenterOfhxkjoRYYCAEFTZX7518-85-61 20:32:00 Test Item Value Reference Range Interpretation Comments INR (test code = INR) 0.95 0.85-1.17 N [facility] HospitalMimmcrtWFBWPCIREQ6482-02-80 20:32:00 Test Item Value Reference Range Interpretation Comments UA Urobilinogen (test code *NA*(11/26/2012 0.1-1.0 = UA Urobilinogen) 14:32:00) [facility] HospitalIlkupiyVNHJWAWHVI5873-59-20 20:32:00 Test Item Value Reference Range Interpretation Comments UA Bacteria (test code Occasional /HPF = UA Bacteria) *NA*(11/26/2012 14:32:00) [facility] HospitalOutuykxXDEHHGAFSV3313-67-43 20:32:00 Test Item Value Reference Range Interpretation Comments UA RBC (test code = UA RBC) 1 <=2 N [facility] HospitalVcyurxtABKSLFPTGN4248-08-46 20:32:00 Test Item Value Reference Range Interpretation Comments UA WBC (test code = UA WBC) 3 <=5 N [facility] HospitalEbcovxcYVOPTQEXCD2624-23-43 20:32:00 Test Item Value Reference Range Interpretation Comments UA Sq Epi (test code = Many /LPF A UA Sq Epi) *ABN*(11/26/2012 14:32:00) [facility]HwplqznSFTRBKKXKE7183-89-76 20:32:00 Test Item Value Reference Range Interpretation Comments Micro? (test code = Performed *NA*(11/26/2012 Micro?) 14:32:00) [facility] HospitalJvowuqxHENKQNPXCK5191-30-94 20:32:00 Test Item Value Reference Range Interpretation Comments UA Mucus (test code = Few /LPF UA Mucus) *NA*(11/26/2012 14:32:00) [facility] HospitalMsduvhsFCTUGSPVUC7537-62-43 20:32:00 Test Item Value Reference Range Interpretation Comments UA Bili (test code = Negative *NA*(11/26/2012 UA Bili) 14:32:00) [facility] HospitalXzawiorLYYOUKXTYV5752-82-41 20:32:00 Test Item Value Reference Range Interpretation Comments UA Ketones (test code Negative mg/dL = UA Ketones) *NA*(11/26/2012 14:32:00) [facility] HospitalLhhxmfyHXCQBMRXVA0177-24-93 20:32:00 Test Item Value Reference Range Interpretation Comments UA Protein (test code Negative mg/dL N = UA Protein) (11/26/2012 14:32:00) [facility] HospitalGhrjsqoKRFDNJXJVC3650-73-58 20:32:00 Test Item Value Reference Range Interpretation Comments UA Leuk Est (test code Trace *ABN*(11/26/2012 A = UA Leuk Est) 14:32:00) [facility] HospitalWyayqqjUXFLXGREFY3896-12-21 20:32:00 Test Item Value Reference Range Interpretation Comments UA Nitrite (test code Negative (11/26/2012 N = UA Nitrite) 14:32:00) [facility]anoWizazxoTRIFGPMKBF3646-82-01 20:32:00 Test Item Value Reference Range Interpretation Comments UA Blood (test code = Negative (11/26/2012 N UA Blood) 14:32:00) [facility] HospitalSmbzlflVFYMPHBUNO8819-05-10 20:32:00 Test Item Value Reference Range Interpretation Comments UA Color (test code = Yellow *NA*(11/26/2012 UA Color) 14:32:00) [facility] HospitalNgdhveqFPRVSWMZYO4869-75-08 20:32:00 Test Item Value Reference Range Interpretation Comments UA pH (test code = UA pH) 6.0 5.0-8.0 N [facility] HospitalGbzjhhyHDSRSFCMUA2581-22-15 20:32:00 Test Item Value Reference Range Interpretation Comments UA Spec Grav (test code = UA Spec Grav) 1.016 N [facility]anoSkxvudzGWUMQMMFCC4918-32-60 20:32:00 Test Item Value Reference Range Interpretation Comments UA Turbidity (test code Slight A = UA Turbidity) *ABN*(11/26/2012 14:32:00) [facility]anoAonehpqZNNSNGUUHW0039-86-51 20:32:00 Test Item Value Reference Range Interpretation Comments UA Glucose (test code Negative mg/dL = UA Glucose) *NA*(11/26/2012 14:32:00) [facility] Notes Date/Time Note Provider Source 2019-05-04 22:06:00 [id number] [address] [address] PATIENT NAME: BRITNEY MENDOZA ADMIT DATE: 03/05/19ACCOUNT NO: [id number] ROOM NO: .2060 AGE: 38 SEX: F ADMITTING PHYSICIAN: Radha Marks MD ATTENDING PHYSICIAN: Padmini Marks MD ADMISSION DATE: 03/05/2019DISCHARGE DATE: 03/08/2019 DISCHARGE DIAGNOSES: at 37 weeks' gestation, maternal thrombophilia,on anticoagulation, chronic hypertension, gestational diabetes mellitus, dietcontrolled, severe chronic anemia, previous section , schizoaffectivedisorder. OPERATIVE PROCEDURE: Repeat section, low transverse uterine incision,Pfannenstiel skin incision. HISTORY AND HOSPITAL COURSE: The patient is a 38-year-old 4, para0-1-2-0, habitual aborter, with previous delivery secondary to severepreeclampsia at 30 weeks' gestation, infan t from complications ofthrombosis at 2 weeks of life. The patient was subsequently diagnosed withthrombophilia. Current was treated with aspirin that was stopped at34 weeks' gestation. Lovenox that was continued from first trimester until 24hours prior to selected delivery indicated because of development ofhypertension that was worsening, chronic hypertension. The patient also hadgestational diabetes, controlled with diet. Operative procedures were withoutcomplications. Postoperative course was also unremarkable. She was afebrile,without any evidence of infection. Wound was healing well. H and H were 7.0and 26 preoperative and 5.8 and 21.3 postoperatively. The patient wassymptomatic and was transfused blood to a hematocrit of 27% and then felt well. The patient's ileus resolved. She was able to be advanced to a regular diet,tolerated diet well, had normal bladder and bowel functions. Her bloodpressures remained stable. She was able to be discharged home on the fourthpostoperative day, to continue gradual increased activity and regular diet. DISCHARGE MEDICATIONS: Included tramadol and Tylenol p.r.n. She was continuedon Lovenox 40 mg daily. The patient continued on vitamins and hervitamin B12 administration. She had a followup visit in 2 weeks. Her incision was healing well. She wasfully ambulatory and had normal bladder and bowel function at the time ofdischarge. Dictated By: Padmini Marks MD WT: DS:F.KEKE/TD/CARITODD: 05/04/2019 22:06:42DT: 05/05/2019 10:52:12Conf#: [id number]/DID#: [id number] PATIENT NAME: BRITNEY MENDOZA Authenticated by Padmini Marks MD On 05/06/2019 08:15:35 PM at 2016 PATIENT NAME: BRITNEY MENDOZA [id number]:52:[id number] a ilable for patient scfeHTIIRUTDOITENZ0111-60-82H44:16:08 2019-03-08 20:03:00 INscnldzkfs546779739891-72-39H80:03:00 [facility] [facility] ([facility]OB Postpart Progr NoteREPORT#:[id number] REPORT STATUS: SignedDATE:03/08/19 TIME: 2002 PATIENT: BRITNEY MENDOZA UNIT #: [id number]#: [id number] ROOM/BED: 2059-ADOB: [birth year] AGE : 38 SEX: F ATTEND: Padmini Marks MDA AUTHOR: Padmini Marks MD * ALL edits or amendments must be made on the electronic/computer document * Subjective SubjectiveStatus/Day: post , post operative, day # 3Patient reports: Patient reports: Yes no complaints, Yes normal lochia, Yes pain management effective, Yes tolerating po well, Yes voiding well, Yes voiding without pain , Yes tolerating ambulation, Yes flatusComments:patient feeling ready to go home Objective GeneralVS:Vital Signs: Date Time Temp Pulse Resp B/P B/P Pulse O2 O2 Flow FiO2 Mean Ox Delivery Rate 03/08 1700 99.0 68 18 127/77 / 1316 98.4 61 18 124/79 03/08 0809 98.0 64 18 126/74 03/08 0438 97.4 71 18 128/75 Physical ExamCardiac: normal sinus rhythmLungs: clear to auscultationNeuro: Exam: alert, oriented x3, normal speechAbdomen: soft, no abnormal tendernessIncision site: well approximated edges , dry, no inflammationUterus: firm, involution appropriate, non-tenderFundus: at the umbilicusLochia: normalLower extremities: Edema: trace Diagnosis, Assessment Plan Diagnosis, Assessment PlanAssessment: nml progress, anemia r/t: (chronic, mlaabsorption), chronic hypertension (stable BP's, off meds ), s/p blood transfusion, repeat H/Hpending, patien t feeling greatPlan: routine care, discharge today, follow up 2 weeks Electronicall y Signed by Padmini Marks MD on 03/08/19 at 2006 RPT #:[id number] OF REPORT PRProgress Pjpe4476-25-60N84:03:00F.[id number] l able for patient grtyYTZNWOQZZBBMPP8908-40-50Q34:07:16 2019-03-07 09:26:00 [id number]:26:00 [facility] ([facility])OB Postpart Progr NoteREPORT#:[id number] REPORT STATUS: SignedDATE:03/07/19 TIME: 925 PATIENT: BRITNEY MENDOZA UNIT #: [id number]#: [id number] ROOM/BED: 2059OB: [birth year] AGE: 38 SEX: F ATTEND: Padmini Marks MDA AUTHOR: Padmini Marks MD * ALL edits or amendments must be made on the electronic/computer document * Subjective SubjectiveStatus/Day: post , post operative, day # 2Patient reports: Patient reports: Yes no complaints, Yes normal lochia, Yes pain management effective, Yes tolerating po well, Yes voiding well, Yes voiding without pain , Yes tolerating ambulation, Yes flatus Objective GeneralVS:Vital Signs: Date Time Temp Pulse Res p B/P B/P Pulse O2 O2 Flow FiO2 Mean Ox Delivery Rate 03/07 0521 98.1 67 16 121/78 03/07 0050 97. 9 61 18 131/73 03/06 2045 98.1 63 20 128/72 03/06 1600 97.8 69 19 144/84 03/06 1200 98.0 67 21 119/71 Physical ExamCardiac: normal sinus rhythmLungs: clear to auscultationNeuro: Exam: alert, oriented x3, normal speechAbdomen: soft, no abnormal tendernessIncision site: well approximated edges, dry, no inflammationUterus: firm, involution appropriate, non-tenderFundus: at the umbilicusLochia: normalLower extremities: Edema: trace Diagnosis, Assessment Plan Diagnosis, Assessment PlanAssessment: nml progress, anemia r/t: (chronic, mlaabsorption), chronic hypertension (stable BP's, off meds ), s/p blood transfusion, repeat H/HpendingPlan: routine care, as per orders at 0927 [facility] #:[id number] OF REPORT PRProgress Lvay2526-59-04X87:26:00F.[id number] l able for patient xrhcFIRZFJGGYVYZVP4162-35-53L68:28:09 2019-03-06 07:21:00 [id number]:21:00 [facility] ([facility])OB Postpart Progr NoteREPORT#:[id number] REPORT STATUS: SignedDATE:03/06/19 TIME: 720 PATIENT: BRITNEY MENDOZA UNIT #: [id number]#: [id number] ROOM/BED: 2059-ADOB: [birth year] AGE : 38 SEX: F ATTEND: Padmini Marks MDA AUTHOR: Padmini Marks MD * ALL edits or amendments must be made on the electronic/computer document * Subjective SubjectiveStatus/Day: post , post operative, day # 1Patient reports: Patient reports: Yes no complaints, Yes normal lochia, Yes pain management effective, Yes tolerating po well, Yes voiding well, Yes voiding without pain , Yes tolerating ambulationComments:severe anemia chronic with expected blood loss from surgery. Patien was symptomatic with decreased urine output, although no dizzines. 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 transfusion of 2 units PRBC's completed. Patient feeling well Objective GeneralVS:Vital Signs: Date Time Temp Pulse Resp B/P B/P Pulse O2 O2 Flow FiO2 Mean Ox Delivery Rate 03/06 0625 98.6 59 18 138/79 97 03/06 0400 97.9 60 18 125/75 99 03/06 0342 98.6 58 18 121/67 96 / 0323 98.6 59 18 124/69 96 03/06 0230 98.2 70 18 124/71 97 / 0130 98.6 68 18 131/77 98 / 0100 98.8 70 18 133/74 97 / 0041 98.9 76 18 131/79 99 / 0035 98.9 76 18 131/79 99 03/05 2339 98.1 75 18 112/71 03/05 1953 98.0 74 18 131/81 03/05 1308 83.0 03/05 1308 98.9 61 18 121/64 99 03/05 1245 56 17 99 03/05 1236 92.0 03/05 1236 61 18 133/70 98 03/05 1230 62 19 99 03/05 1221 98.0 03/05 1221 135/82 03/05 1215 68 19 99 03/05 1206 91.0 03/05 1206 56 16 124/74 98 03/05 1200 60 18 99 03/05 1151 97.0 03/05 1151 136/80 03/05 1145 56 19 99 03/05 1136 73.0 03/05 1136 116/52 05/3 1 1136 66 18 99 03/05 1130 66 20 99 03/05 1121 91.0 03/05 1121 140/71 03/05 1115 56 16 99 03/05 1106 99.0 03/05 1106 54 18 155/77 99 03/05 1100 54 17 99 03/05 1051 92.0 03/05 1051 145/72 03/05 1045 56 21 100 03/05 1036 101.0 03/05 1036 58 18 134/80 100 03/05 1030 64 25 98 03/05 1021 90.0 03/05 1021 63 18 120/69 100 03/05 1015 58 20 100 03/05 1006 93.0 03/05 1006 60 18 133/79 100 05 1000 60 18 100 03/05 0951 78.0 03/05 0951 107/62 03/05 0951 64 18 100 03/05 0945 58 21 100 03/05 0936 92.0 03/05 0936 73 18 125/67 95 05/3 1 0930 62 23 100 03/05 0921 85.0 03/05 0921 59 18 128/63 98 03/05 0915 58 17 100 03/05 0906 84.0 03/05 0906 62 18 125/61 98 03/05 0900 60 8 98 03/05 0851 88.0 03/05 0851 61 18 128/68 100 03/05 0845 72 18 98 03/05 0836 97.6 68 18 113/62 100 Notes:urine output imporved post transfusion Physical ExamCardiac: normal sinus rhythmLungs: clear to auscultationNeuro: Exam: alert, oriente d x3, normal speechAbdomen: soft, no abnormal tendernessIncision site: well approximated edges , dry, no inflammationUterus: firm, involution appropriate, non-tenderFundus: at the umbilicusLochia: normalLower extremities: Edema: trace ResultFindings/Data:Laboratory Tests: 02/05 2228 0827 0825 Blood Gas Capillary p H (7.35 - 7.45) 7.296 L 7.378 Capillary pCO2 (mmHg ) 48.6 35.7 Capillary pO2 (mmHg) 16.0 24.9 Capillary HCO3 (meq/L) 23.2 20.5 Capillary Base Excess -3.7 -3.9 Capillary O2 Sat Calc (%) 18.5 44.2 Patient On Oxygen CBLA CBLV FiO2 (%) 21.0 21.0 Hematology Hgb (10.7 - 13.9 g/dL) 5.8 *L Hct (32.1 - 42.1 %) 21.3 L Diagnosis, Assessment Plan Diagnosis, Assessment PlanAssessment: nml progress, anemia r/t: (chronic, mlaabsorption), chronic hypertension (stable BP's, off meds ), s/p blood transfusion, repeat H/HpendingPlan: routine care, as per orders at 07[facility] #:[id number] OF REPORT PRProgress [id number]:21:00F.[id number] l [facility] for patient jorvKFBGQNOCVBGPBB9943-83-27G40:27:47 2019-03-05 09:09:00 [id number]:09:[id number] 129 [facility] [address] PATIENT NAME: BRITNEY MENDOZA ADMIT DATE: 03/05/19ACCOUNT NO: [id number] ROOM NO: [facility] AGE: 38 SEX: F ADMITTING PHYSICIAN: Radha Marks MD ATTENDING PHYSICIAN: Padmini Marks MD OPERATION DATE: 03/05/2019 PREOPERATIVE DIAGNOSES: at 37 weeks' gestation, maternalthrombophilia, on anticoagulation; chronic hypertension, gestational diabetesmellitus, diet controlled;severe chronic anemia, previous section, and mood Schizoaffectivedisorder. POSTOPERATIVE DIAGNOSES : at 37 weeks' gestation, maternalthrombophilia, on anticoagulation; chronic hypertension, gestational diabetesmellitus, diet controlled;severe chronic anemia, previous section, and mood Schizoaffectivedisorder. PROCEDURES: Repeat , low transverse uterine incision, Pfannenstielskin incision. SURGEON: Padmini Marks MD ECONOMIC FORECASTER: Clive Luz SA ANESTHESIA : Spinal epidural. FINDINGS: Female infant delivered from vertex presentation, Apgars 8 and 8,weight pending. Blood gases pending. Placenta was intact. Uterus and ovarieswere normal. Left tube was normal. Right tube was surgically absent. COMPLICATION OF PROCEDURE: None. ESTIMATED BLOOD LOSS: 600 mL. INTRAVENOUS FLUIDS : 1700 mL crystalloid. ANTIBIOTICS: Ancef. SPECIMEN: Placenta. URINE OUTPUT: 50 mL, clear i n the [place]. COUNTS: Sponge and instrument counts were correct. NEONATOLOGY: Requested at delivery . PATIENT NAME: BRITNEY MENDOZA CONDITION: Stable to recovery. EVENTS LEADING TO PROCEDURE: The patient is a 38-year-old, 4, para0-1-2-0, habitual aborter with previous delivery secondary to severepreeclampsia at 30 weeks' gestation. from complications ofthrombosis at 2 weeks of life. The patient was subsequently diagnosed withthrombophilia. Current , she was treated with aspirin that stopped at34 weeks' gestation. Lovenox that was continued until 24 hours prior todelivery by elective repeat . The patient had chronic hypertension,treated with labetalol; gestational diabetes, controlled with diet, and labileblood pressures. A decision to deliver at 37 weeks' gestation was made. Undercontrolled circumstances, the patient has history of previous gastric bypass andhas chronic anemia secondary to malabsorption and additional mood affectivedisorder that is currently stable. Unde r controlled circumstances, the patientwas taken t o the operating room, induction of spinal epidural analgesia providedwithout complications. The patient was prepped and draped in usual sterilemanner for section. Level of anesthesia was checked and found to beadequate. Pfannenstiel skin incision was made with the knife. Incision wascarried down to the fascia. Fascia was horizontally opened, bluntly and sharplyseparated from underlying rectus muscles. Rectus muscles in midline. Peritoneum sharply entered and vertically opened. Uterovesical peritoneum wassharply dissected. Transverse incision was made in low uterine segment. Infantwas delivered from vertex presentation. was suctioned. Delayed cordclamping was practiced until cord pulsation stopped and cord was clamped and cutdown and the infant was handed to the personnel standing by. Segmentof cord was dissected. Cord gases, cord blood were obtained for diagnosisstudies. Placenta was delivered spontaneously intact. Uterus was exteriorized,cleansed of remaining membranes. Hysterotomy incision was closed with runninginterlocking stitch of 2-0 Vicryl suture, second imbricating stitch of 2-0Vicryl suture. Posterior cul-de-sac and gutters were irrigated and suctiondried. Uterus was replaced into abdominal cavity. Anterior cul-de-sac wasirrigated and suction dried. Hemostasis was confirmed. Attention was thendirected to the anterior abdominal wall, which was closed in layers. Reapproximation of muscles with interrupted xuvgpt-ag-kwibd stitches of 2-0Vicryl, closure of fascia with running stitch of 3-0 Vicryl. Reapproximation ofsubcutaneous tissue with 2-0 plain suture, and closure of ski n with quarter-inchstaples. Prior to closure, each layer was irrigated, suction dried, andrendered hemostatic with electrocautery. Sponge, needle, and instrument countsreported correct. The patient tolerated the procedure well. Wound wasappropriately dressed, and the patient was transferred to recovery room withstable vital signs, good condition, and anesthesia care. Dictated By: Padmini Marks MD WT: OP:FJOJO/TD/CARITODD: 03/05/2019 09:09:30DT: 03/05/2019 12:47:36Conf#: [id number]/DID#: [id number] Authenticated by Padmini Marks MD On 03/06/2019 09:26:41 AM PATIENT NAME: TIMBRITNEY LAKE at 0927 PATIENT NAME: TIMBRITNEY vodhis6627-97-12C76:47:00F.[id number] i lable for patient uatjEZABWLRRZYGZXX7904-92-58Q64:27:12 2019-03-05 07:53:00 [id number]:53:00 [facility] ([facility])Full Op NoteREPORT#:[id number] REPORT STATUS: SignedDATE:03/05/19 TIME: 752 PATIENT: BRITNEY MENDOZA UNIT #: [id number]#: [id number] [address] [birth year] AGE : 38 SEX: F ATTEND: Padmini Marks MDA AUTHOR: Padmini Marks MD * ALL edits o r amendments must be made on the electronic/computer document * Operative ReportStart date: 03/05/19Start time: 0753Pre-procedure diagnosis:37 weeks GAthrombophilia, anticoagulationchronic hypertensionGDM diet controlledsevere chronic anemiaprevious c/smoodo affective disoredPost-procedure diagnosis:sameProcedures performed:repeat c/s LUST/pfannesteilTechnique/Procedure:dictated in detailAncef prophylaxisneonatology at deliveryPrimary Surgeon: KendrickAssistant(s): AlAlhamAnesthesia: combined spinal/epiOperative findings:female vertex 8 8, weight pendingblood gasses pendingplacenta intactuterus and ovaries normalleft tube normal, right tube absentComplications: noneEstimated blood loss in ml's: 600 cc Specimens removed/altered: placentaDrain(s)/tube(s): foleyImplant(s): noneFluids:1700 cc crystalloidUrine output:50 cc clear in foleyDisposition: PACUCounts: Sponge count: correct Instrument count: correct Needle count: correct at 0901 RPT #:[id number] OF REPORT OPOperative [id number]:53:00F.[id number] a ilable for patient [id number]:01:22 2019-03-05 07:38:00 [id number]:38:00 [facility] ([facility])OB Admission / H PREPORT#:[id number] REPORT STATUS: SignedDATE:03/05/19 TIME: 0738 PATIENT: BRITNEY MENDOZA UNIT #: [id number]#: [id number] [address] AGE: 38 SEX: F ATTEND: Padmini Marks AUTHOR: Padmini Marks MD * ALL edits or amendments must be made on the electronic/computer document * OB Admission H P HxHPI:38 year old at 37 weeks GA, thrombpphilia on lovenox, stopped 24 hrs agoGDM diet controlled,chronic hypertension, history of severe preeclampsia previous , delivere d 30 weeks by c/s, . Fetus AGA, increased S/D. Patient admitted for repeat c/s.Past medical history: hypertension (chroninc), protein S defficiencyPast surgical history: , cholecystectomy, gastric bypass, rt salpingectomy, mood affective disorderAllergiesCoded Allergies:codeine (Intermediate, HIVES 03/05/19) Review of SystemsConstitutional:Denies: chills, fatigue. Skin:Denies: abrasion, bruising. Eyes:Denies: visual loss/blurred. ENT:Denies: ear ringing. Respiratory:Denies: SOB, wheezing. Cardiovascular:Denies: chest pain, palpitations. GI:Denies: nausea, vomiting. :Denies: dysuria. Musculoskeletal:Denies: arthritis, extremity pain, extremity swelling, joint pain, joint swelling, lumbar pain, myalgias, neck pain, thoracic pain, other. Neuro:Denies: headache, vision change. Psych:Denies: agitation, anxiety. Objective GeneralVS:Last Documented: Result Date Time B/P Mean 91.0 03/05 638 B/P 123/73 03/05 638 Pulse 78 03/05 638 Temp 98.3 03/05 0637 Resp 18 03/05 637 Vital Signs Date Temp Pulse Resp B/P B/P Mean Pulse Ox FiO2 03/05 98.3 78 1 8 123/73 91.0 Physical ExamHEENT: normocephalic w/ o injuryCardiac: no clinically sig murmurLungs: clear to auscultationNeuro: Exam: alert, oriente d x3, normal speechAbdomen: gravid, softMembranes: Membranes: IntactLower extremities: Edema: trace Calf tenderness: negativeBaby A: Baby A FHR category: category 1 ResultFindings/Data:Laboratory Tests: 03/05 05/3 0 0648 1640 Chemistry POC Glucose (65 - 110 mg/dL) 84 Hematology WBC (6.6 - 12.1 K/mm3) 13.8 H RBC (3.45 - 5.01 M/mm3) 3.56 Hgb (10.7 - 13.9 g/dL) 7.0 L Hct (32.1 - 42.1 %) 26.3 L MCV (84.1 - 94. 8 fL) 74 L MCH (27 - 35 pg) 19.7 L MCHC (32.2 - 34.1 gm/dL) 26.6 L RDW (12.4 - 16.5 %) 18.9 H Plt Count (133 - 385 K/mm3) 410 H MPV (9.1 - 12. 7 fl) 10.8 Neut % (Auto) (56.5 - 79.4 %) 71.4 Lymp h % (Auto) (14.3 - 34.3 %) 19.8 [place] % (Auto) (5.1 - 10.4 %) 5.7 Eos % (Auto) (0.1 - 3.0 %) 0.7 Bas o % (Auto) (0.1 - 1.0 %) 2.0 H Neut # (Auto) (K/mm3) 9.9 Lymph # (Auto) (K/mm3) 2.7 [place] # (Auto) (K/mm3) 0.8 Eos # (Auto) (K/mm3) 0.10 Bas o # (Auto) (K/mm3) 0.3 Immature Plt Fraction (0.0 - 10.8 %) 0.0 Diagnosis, Assessment Plan Diagnosis, Assessment PlanFree Text A P:38 year old at 37 weeks GAthrombophilia on anticoagulation,stopped 24 hrs agochronic hypertension labetalolGDM diet controlledpreciou s c/sfor repeat c/sneonatology at delivery ( possible inheritable thrombophilia, 30 week ramya from thrombosis)history of mood affective disorder: risk for post depressionsevere chrnic anemia secondary to malabsorption ( secodary to gastric bypass): may need transfusion, IV iron administration) at 0749 RPT #:[id number] OF REPORT HPHistory and physical jqevtabsnmv4614-52-97V62:38:00F.[id number] 0 AVAvailable for patient jrytMWNDKCHGWSPHQB9900-88-10G23:50:01 2019-02-23 02:18:00 [id number]:18:[id number] 031 [facility] [address] PATIENT NAME: BRITNEY MENDOZA ADMIT DATE: 02/22/19ACCOUNT NO: [id number] JOSE Quiñones NO: AGE: 38 SEX: F ADMITTING PHYSICIAN: ATTENDING PHYSICIAN: Padmini Marks MD ADMISSION DATE: 02/22/2019 TRIAGE EVALUATION The patient is for evaluation on 02/22/2019 by Faith Pittmna MD The patient of Dr. Marks with Dr. Salazar production team manager, requesting hospitalist triagesee the patient prior to her discharge. HISTORY OF PRESENT ILLNESS: The patient is a 38-year-old G3, P0-1-1-0 with lastmenstrual period in June of 2018 and estimated date of mtxrejovmqe10/21/2019. She presented at 35 and 3/7th weeks complaining of very mildcramping approximately every 30 minutes . She states the cramps are 2 to 3/10 onthe pain scale. They are less than 1 minute in length and they began atapproximately 8 p.m. soon after she finished a supper of Maltese food. Sheactually states by the time she was being evaluated in [facility] unit that hercramping had more or less stopped. She denied vaginal bleeding or leakage offluid, reported occasional mucus discharge and reported good movement. She denied recent intercourse. She denied diarrhea, but reported someconstipation recently, which she feels is du e to her iron supplements;therefore, she has stopped 2 days ago and had normal bowel movement yesterdayand today. She denies dysuria, fever, chills, headaches, vision changes, rightupper quadrant pain, swelling in her hands and face or other problems. Herprenatal care began with Dr. Marks at approximately 6 to 8 weeks' gestation. Hernext visit is scheduled for 02/23/2019. Problems in the have includedhistory o f chronic hypertension, which has been well controlled on p.o.medications. Also, advanced maternal age, also history of protein S deficiency,diagnosed following the of her first baby on day of life #15 and alsodiagnosed in this gestational diabetes with polyhydramnios (JUDITH 23 cmon last ultrasound per patient). PAST MEDICAL HISTORY:1. Chronic hypertension diagnosed in 2011, on medication with good control thusfar.2. Also, the protein S deficiency diagnosed following the of ctu42-dwh-fta infant in 2014. PAST SURGICAL HISTORY:1. Laparoscopic gastric bypass with cholecystectomy during the same procedurein 2012.2. Laparoscopic right salpingo-oophorectomy in 2010.3. Also, wisdom teeth in 1994. PATIENT NAME: BRITNEY MENDOZA ALLERGIES: CODEINE, WHICH CAUSES A RASH. MEDICATIONS:1. vitamins.2. Iron.3. Labetalol 100 twice daily.4. Baby aspirin daily.5. Lovenox 40 daily.6. Vitamin D weekly.7. Vitamin B12 injections monthly.8. Also folate supplement. OBSTETRICAL HISTORY: In 2015, stat section at 30 weeks due to chronichypertension with worsening superimposed -induced hypertension. Shewas delivered of a male weighing 2 pounds 3 ounces, he on day oflife #15 due to a clot in his intestine and then in 2016; first trimesterspontaneous , not requiring dilation and curettage. GYNECOLOGIC HISTORY: Menarche at age 13 with regular monthly cycles lasting 7days, moderate in amount with moderate cramping. The patient denies priorhistory of STDs. Reports all Pap smears normal. This is a planned . SOCIAL HISTORY: One-half pack per day tobacco use for approximately 19 years,she quit in 2014, occasional prepregnancy alcohol use. No drugs. She liveswith her spouse, a 26-year-old healthy male. She is on leave from work now. 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 Her job did not requirelifting or chemical exposures. FAMILY HISTORY: Father in November with CIDP, also chronichypertension and diabetes. Mother with diabetes and hypertension. Maternalgrandfather from unknown cause. Paternal grandfathe r fromunknown cause. Maternal grandmother living with diabetes. Paternal grandmotherliving with hypertension. Brother with hypertension. Aldair fuentes patient has knownprotein S deficiency in her son on day of life #15 from a clot in theintestine. The patient denies history of mental retardation or defects inher family or her spouse's family. REVIEW OF SYSTEMS: Twelve-point review of systems is negative excep t as statedabove. PHYSICAL EXAMINATION:GENERAL: Aldair fuentes patient is a well-nourished and well-developed white female in noacute distress, lying in the hospital bed in triage unit. She is mildly anxiousdue to poor outcome in her prior pregnancies.VITAL SIGNS: Height 5 feet 6 inches, weight prior to the 190 poundsand at most recent visit to clinic 233 pounds. Blood pressure 125/76, pulse 87,respirations 18, and temperature 98.HEAD AND NECK: Within normal limits without lymphadenopathy or thyromegaly.CHEST: Clear to auscultation bilaterally.HEART: With regular rate and rhythm.BREASTS: Deferred.ABDOMEN: Soft, nontender, gravid with a fundal height of 39 cm consistent withthe patient's reported polyhydramnios.PELVIS: On pelvic exam; she is closed, posterior, and high. No presenting partpalpated. PATIENT NAME: BRITNEY MENDOZA EXTREMITIES: Show trace of edema. Bilateral patellar reflexes, 2+.NEUROLOGIC: Nonfocal. The patient is awake, alert, and oriented x3. LABORATORY DATA: Urinalysis showed 2+ glucose, trace leukocytes, trace ketones,otherwise negative with 2 to 5 WBCs, 0 t o 2 RBCs, and moderate epithelial cells,moderate bacteria. Urine culture is sent and pending. fibronectinnegative. NST is category 1 wit h baseline heart tones in the 140s rangewith 15 x 15 accels, no decels, and possibly one contraction noted soon afterarrival, but none over the next 70 minutes of monitoring. ASSESSMENT AND PLAN: This is a 38-year-old G3, P0-1-1-0, at 35 and 3/7th weekscomplaining of cramping without evidence of labor. She is nowdischarged home in stable condition. No evidence of labor withreassuring status. No evidence of preeclampsia and her bloo d pressuresare well controlled on current medications. She is to follow up with Dr. Mtz scheduled on 02/23/2018. She was given labor precautions and PIHprecautions. She is to return for vaginal bleeding, leakage of fluid, decreasedfetal movement, contractions with increased force and frequency, headache, notresolving with Tylenol, vision changes, right upper quadrant pain, swelling inher face, in the hands, or other concerns. All instructions are given verballyby Dr. Pittman, by hospitalist. The patient is for evaluation on 02/22/2019 by Faith Pittman MD Dictated By: Faith Pittman MD WT: HP:FJOJO/ADDYI/NTSDD: 02/23/2019 02:18:38DT: 02/23/2019 03:10:07Conf#: [id number]/DID#: [id number] by Faith Pittman MD On 02/25/2019 06:46:27 AM at 0646 PATIENT NAME: BRITNEY MENDOZA y and physical kjstbsfgquf0240-02-16S60:10:00F.[id number] A VAvailable for patient eb[id number]:46:59 2018-11-12 06:37:00 [id number]:37:[id number] 26 [facility] [place] [address] PATIENT NAME: BRITNEY MENDOZA ADMIT DATE: 11/07/18ACCOUNT NO: [id number] ROOM NO: AGE: 38 SEX: F ADMITTING PHYSICIAN: ATTENDING PHYSICIAN : Ronen Salazar MD ADMISSION DATE: 11/07/2018 [facility] EVALUATION DIAGNOSES:1. Intrauterine a t 20 weeks.2. Pelvic pain.3. Urinary tract infection. HISTORY OF PRESENT ILLNESS: A 38-year-old G4, P0 at 20 weeks, who presentedwit complaining of pelvic pain and pressure. He denied any other complaints. No leaking of fluid . No bleeding. No contractions and she was feeling the babymoving normally. 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 PAST SURGICAL HISTORY:1. and the baby 15 days later.2. Gastric bypass.3. Right salpingo-oophorectomy.4. Cholecystectomy. PAST MEDICAL HISTORY: 1. Chronic hypertension.2. Protein S deficiency. PAST OBSTETRICAL HISTORY: Two spontaneous first trimester losses and onedelivery at term with demise at 15 days. MEDICATIONS:1. Labetalol 200 mg b.i.d.2. Lovenox 40 mg daily. REVIEW OF SYSTEMS:1. No chest pain, no shortness of breath.2. No constipation or diarrhea.3. No dysuria.4. No ski n ulcers or lesions.5. Afebrile.6. Alert and oriented x3.7. No depression or mood symptoms.8. No eye scotomas or vision disturbance.9. No vaginal discharge or bleeding. PATIENT NAME: BRITNEY MENDOZA 10. No cardia c complaints or symptoms. No palpitations. PHYSICA L EXAMINATION:GENERAL: Alert and oriented x3.VITAL SIGNS: Stable, within normal limits.HEENT: Normocephalic and atraumatic.LUNGS: Clear to auscultation bilaterally.HEART: S1 and S2 regula r without murmur or rub.ABDOMEN: Bowel sounds positive, soft and nontender.EXTREMITIES: No edema.PELVIC: Exam by RN revealed cervix closed/thick/high. heart rate 140s byDoppler. LABORATORY STUDIES: Urinalysis was consistent with the urinary tract infection. ASSESSMENT:1. Intrauterine at 20 weeks.2. Urinary tract infection. PLAN: 1. The patient was advised to increase p.o. fluid.2. e was given a prescription for Macrobid 100 mg b.i.d. for 7 days.3. She will follow up with Dr. Marks within a week. Dictated By: Ronen Salazar MD WT: HP:FJOJO/LYNDA/CARITODD: 11/12/2018 06:37:39DT: 11/12/2018 11:27:06Conf#: [id number]/DID#: [id number] by Ronen Salazar MD On 11/16/2018 11:35:59 PM at 2336 PATIENT NAME : BRITNEY MENDOZA and physical [id number] A VAvailable for patient [id number]
[2023-09-09 18:21] LABS: Absolute Lymphocytes (CBC) 2.8 K/uL (0.7-4.9); Hematocrit 45.6 % (36.0-45.0); Lymphocytes % 25.2 % (15.3-44.8); MCV 99.1 fL (80-100); MPV 9.4 fL (7.6-11.3); Platelets 217 thou/uL (152-406)
[2023-09-09] MEDS ORDERED: PROMETHAZINE INJ 25 MG/ML AMP ONE (18:31)
[2023-09-09] MEDS ORDERED: KETOROLAC 30 MG/ML INJ ONE (18:32)
[2023-09-09 18:39] LABS: Albumin 3.9 g/dL (3.4-5.0); Bilirubin Total 0.3 mg/dL (0.2-1.0); Potassium 4.2 mEq/L (3.5-5.1); Protein, Total 8.1 g/dL (6.4-8.2)
--- NOTE | 2023-09-09 19:43 | RAD REPORT ---
EXAM DESCRIPTION: CT - Abdomen Pelvis W Contrast - 09/09/2023 7:18 pm CLINICAL HISTORY: Abdominal pain COMPARISON: January 2023 TECHNIQUE: Computed axial tomography of the abdomen pelvis was obtained. 100 cc Isovue-300 was admin istered intravenously. Oral contrast was not requested which limits evaluation of bowel and appendix All CT scans are performed using dose optimization technique as appropriate and may include automated exposure control or mA/KV adjustment according to patient size. FINDINGS: The liver, spleen, pancreas, adrenal and kidneys appear unremarkable. 4 millimeter calculus right kidney. No hydronephrosis There is no evidence of diverticulitis. Hysterectomy. No adnexal mass. Normal appendix Postsurgical changes involve the stomach. Spondylosis L5-S1 IMPRESSION: 4 millimeter nonobstructing right renal calculus
--- NOTE | 2023-09-09 19:47 | ER ---
Nurse's Notes [facility] Name: Britney Mendoza Age: 43 yrs Sex: Female : 1980 Arrival Date: 09/09/2023 Time: 16:37 Bed 19 Private MD: Diagnosis: UTI, kidney stone Presentation: 09/09 16:47 Chief complaint: Patient states: right flank pain that radiates to RLQ onset yesterday. cm10 Pt report urinary frequency and burning with urination as well. Pt reports having low grade temp yesterday. Coronavirus screen: Vaccine status: Patient reports receiving the 2nd dose of the covid vaccine. Client denies travel out of the [place] in the last 14 days. Ebola Screen: Patient denies travel to an Ebola-affected area in the 21 days before illness onset. No symptoms or risks identified at this time. Initial Sepsis Screen: Does the patient meet any 2 criteria? No. Patient's initial sepsis screen is negative. Does the patient have a suspected source of infection? No. Patient's initial sepsis screen is negative. Risk Assessment: Do you want to hurt yourself or someone else? Patient reports no desire to harm self or others. Onset of symptoms was September 09, 2023. 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 - Social history:: Smoking status: Patient denies any tobacco usage or history of. Screenin:[address] [facility] ED Fall Risk Assessment (Adult) History of falling in the last 3 months, rs5 including since admission No falls in past 3 months (0 pts) Confusion or Disorientation No (0 pts) Intoxicated or Sedated No (0 pts) Impaired Gait No (0 pts) Mobility Assist Device Used No (0 pt) Altered Elimination No (0 pt) Score/Fall Risk Level 0 - 2 = Low Risk Oriented to surroundings, Maintained a safe environment. Abuse screen: Denies threats or abuse. Nutritional screening: No deficits noted. Tuberculosis screening: No symptoms or risk factors identified. Assessment: 16:50 General: Appears in no apparent distress. uncomfortable, Behavior is calm, cooperative. rs5 Pain: Complains of pain in right flank Pain does not radiate. Pain currently is 6 out of 10 on a pain scale. Quality of pain is described as aching, sharp, Pain began intermittent, started one week ago, started today Is intermittent. Neuro: Level of Consciousness is awake, alert, obeys commands, Oriented to person, place, time, situation. Cardiovascular: Heart tones S1 S2 present Rhythm is regular. Respiratory: Airway is patent Respiratory effort is even, unlabored, Respiratory pattern is regular, symmetrical, Breath sounds are clear bilaterally. GI: Bowel sounds present X 4 quads. Abd is soft and non tender X 4 quads. Reports nausea. : Reports urinary frequency. EENT: No signs and/or symptoms were reported regarding the EENT system. Derm: Skin is pink, warm \T\ dry. Musculoskeletal: Range of motion: intact in all extremities. 17:10 Reassessment: two failed attempts at IV insertion, pressure dressing applied, bleeding rs5 controlled. 17:30 Reassessment: Urine collected and sent, pt denies burning with urination and blood in rs5 urine. 17:50 Reassessment: Nurse to bedside for IV insertion. rs5 18:44 Reassessment: Patient and/or family updated on plan of care and expected duration. Pain rs5 level reassessed. Patient is alert, oriented x 3, equal unlabored respirations, skin warm/dry/pink. Pain: Denies pain. GI: Patient currently denies nausea. 19:53 Reassessment: Patient and/or family updated on plan of care and expected duration. Pain vc1 level reassessed. Patient is alert, oriented x 3, equal unlabored respirations, skin warm/dry/pink. Patient states feeling better. Patient states symptoms have improved. Vital Signs: 16:47 BP 146 / 92; Pulse 65; Resp 18; Temp 97.3(IR); Pulse Ox 100% ; Weight 92.08 kg; Height cm10 5 ft. 7 in. ; Pain 7/10; 20:03 BP 144 / 78; Pulse 62; Resp 18; Pulse Ox 100% ; vc1 16:47 Body Mass Index 31.79 (92.08 kg, 170.18 cm) cm10 16:47 Pain Scale: Adult cm10 ED Course: 16:45 Patient arrived in ED. mr 16:45 Andrew Krueger MD is Attending Physician. rt 16:49 Triage completed. cm10 16:49 Arm band placed on Patient placed in an exam room, on a stretcher. cm10 16:52 Jv Cage, RN is Primary Nurse. rs5 17:44 Attending Physician role handed off by Andrew Krueger MD sp3 17:44 Brooks Rebollar MD is Attending Physician. sp3 18:10 Inserted saline lock: 20 gauge in right antecubital area, using aseptic technique. nj1 ,using aseptic technique. Ultrasound guided. Catheter tip well visualized within vasculature during placement. Blood collected. 19:21 CT Abd/Pelvis - IV Contrast Only In Process Unspecified. EDMS 20:07 No provider procedures requiring assistance completed. IV discontinued, intact, vc1 bleeding controlled, No redness/swelling at site. Pressure dressing applied. Administered Medications: 18:11 Drug: TORadol - Ketorolac IVP 15 mg IVP once Route: IVP; Site: right antecubital; rs5 18:11 Drug: Promethazine IVP 12.5 mg IVP once Route: IVP; Site: right antecubital; rs5 Medication: 20:07 VIS not applicable for this client. vc1 Outcome: 19:46 Discharge ordered by . sp3 20:07 Discharged to home ambulatory, vc1 20:07 Condition: good 20:07 Discharge instructions given to patient, Instructed on discharge instructions, follow up and referral plans. medication usage, Demonstrated understanding of instructions, follow-up care, medications, Prescriptions given X 3, 20:08 Patient left the ED. vc1 Signatures: Dispatcher [employer] EDCT Ewa Campbell, Reg Reg mr Brooks Rebollar MD MD sp3 Otilia Thompson RN RN vc1 Andrew Krueger MD MD rt Jv Cage, RN RN rs5 Katie Kim RN RN nj1 Chastity Bender, DOE RN cm10
--- NOTE | 2023-09-09 19:47 | EDPHYS ---
Physician Documentation [facility] Name: Britney Mendoza Age: 43 yrs Sex: Female : 1980 Arrival Date: 09/09/2023 Time: 16:37 Bed 19 Private MD: ED Physician Brooks Rebollar HPI: 09/09 17:37 This 43 yrs old Female presents to ER via Ambulatory with complaints of rt Urinary Problem. 17:37 Patient presents to the ED with dysuria, urinary frequency with right lower quadrant rt pain radiating to the right flank. She states this is similar to previous episodes of kidney stones. The patient had a brief episode about 1 week ago which have resolved spontaneously. She had hematuria at that time but no more hematuria. The patient states that the pain is worsened today and became more intense. Reports nausea without vomiting. Denies any acute complaints. 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 - Social history:: Smoking status: Patient denies any tobacco usage or history of. ROS: 17:37 Constitutional: Negative for fever, chills, and weight loss, Cardiovascular: Negative rt for chest pain, palpitations, and edema, Respiratory: Negative for shortness of breath, cough, wheezing, and pleuritic chest pain, MS/Extremity: Negative for injury and deformity, Skin: Negative for injury, rash, and discoloration, Neuro: Negative for headache, weakness, numbness, tingling, and seizure, Psych: Negative for depression, anxiety, suicide ideation, homicidal ideation, and hallucinations, 17:37 Abdomen/GI: Positive for abdominal pain, nausea, 17:37 : Positive for urinary frequency, hematuria, Exam: 17:37 Constitutional: This is a well developed, well nourished patient who is awake, alert, rt and in no acute distress. Head/Face: Normocephalic, atraumatic. Chest/axilla: Normal chest wall appearance and motion. Nontender with no deformity. No lesions are appreciated. Cardiovascular: Regular rate and rhythm with a normal S1 and S2. No gallops, murmurs, or rubs. Normal PMI, no JVD. No pulse deficits. Respiratory: Lungs have equal breath sounds bilaterally, clear to auscultation and percussion. No rales, rhonchi or wheezes noted. No increased work of breathing, no retractions or nasal flaring. Skin: Warm, dry with normal turgor. Normal color with no rashes, no lesions, and no evidence of cellulitis. MS/ Extremity: Pulses equal, no cyanosis. Neurovascular intact. Full, normal range of motion. Neuro: Awake and alert, GCS 15, oriented to person, place, time, and situation. Cranial nerves II-XII grossly intact. Motor strength 5/5 in all extremities. Sensory grossly intact. Cerebellar exam normal. Normal gait. Psych: Awake, alert, with orientation to person, place and time. Behavior, mood, and affect are within normal limits. 17:37 Abdomen/GI: Tenderness to the right lower quadrant without guarding, rebound, distention, 17:37 Back: Right costovertebral angle tenderness, no midline tenderness, Vital Signs: 16:47 BP 146 / 92; Pulse 65; Resp 18; Temp 97.3(IR); Pulse Ox 100% ; Weight 92.08 kg; Height cm10 5 ft. 7 in. ; Pain 7/10; 20:03 BP 144 / 78; Pulse 62; Resp 18; Pulse Ox 100% ; vc1 16:47 Body Mass Index 31.79 (92.08 kg, 170.18 cm) cm10 16:47 Pain Scale: Adult cm10 MDM: 16:52 Patient medically screened. rt 19:45 Data reviewed: vital signs, nurses notes, lab test result(s), radiologic studies. ED sp3 course: Patient signed out to me by Dr. Krueger. Right flank pain was noted. Patient has UTI without bacteria in her urine with positive WBCs. Right renal stone noted 4 mm.. 09/09 17:01 Order name: CBC with Diff; Complete Time: 18:37 rt 12 17:01 Order name: CMP; Complete Time: 19:32 rt 12 17:01 Order name: Lipase; Complete Time: 19:32 rt 12 17:01 Order name: Test, Urine; Complete Time: 18:37 rt 12 17:01 Order name: Urinalysis w/ reflexes; Complete Time: 18:37 rt 12 17:42 Order name: Urine Culture EDWI 09/09 17:01 Order name: CT Abd/Pelvis - IV Contrast Only; Complete Time: 19:45 rt 12 17:01 Order name: IV Saline Lock; Complete Time: 18:17 rt 12 17:01 Order name: Labs collected and sent; Complete Time: 18:17 rt Administered Medications: 18:11 Drug: TORadol - Ketorolac IVP 15 mg IVP once Route: IVP; Site: right antecubital; rs5 18:11 Drug: Promethazine IVP 12.5 mg IVP once Route: IVP; Site: right antecubital; rs5 Disposition Summary: 09/09/23 19:46 Discharge Ordered Notes: Location: Home sp3 Condition: Stable sp3 Diagnosis - UTI, kidney stone sp3 Followup: sp3 - With: Private Physician - When: Upon discharge from the Emergency Department - Reason: Continuance of care Discharge Instructions: - Discharge Summary Sheet sp3 - Kidney Stones sp3 - Urinary Tract Infection, Adult sp3 Forms: - Medication Reconciliation Form sp3 - Thank You Letter sp3 - Antibiotic Education sp3 - Prescription Opioid Use sp3 - Patient Portal Instructions sp3 - Leadership Thank You Letter sp3 - Work release form vc1 Prescriptions: - Diflucan 100 mg Oral Tablet - take 2 tablets ORAL route Day 1 for 1 day - then take one tablet by oral route sp3 every day for 14 days.; 16 tablet; Refills: 0, Product Selection Permitted - Diclofenac Sodium 75 mg Oral Tablet Sustained Release - take 1 tablet ORAL route 2 times per day; 30 tablet; Refills: 0, Product sp3 Selection Permitted - Bactrim DS 800-160 mg Oral tablet - take 1 tablet ORAL route every 12 hours for 5 days; 10 tablet; Refills: 0, sp3 Product Selection Permitted Signatures: Dispatcher [employer] EDBrooks Cano MD MD sp3 Andrew Krueger MD MD rt Jv Cgae, RN RN rs5 Chastity Bender RN RN cm10
[2023-09-09 21:02] VITALS: TEMP 97.3; O2SAT 100
[2023-09-09 21:16] VITALS: BP 144/78
== END 2023-09-09 20:08 | disposition home or self-care (01) ==
LOC: ER 16:37
DX: N39.0 Urinary tract infection, site not specified (principal); N20.0 Calculus of kidney; I10 Essential (primary) hypertension; Z88.5 Allergy status to narcotic agent; Z88.8 Allergy status to other drugs, medicaments and biological substances
CPT/HCPCS: 87088; 85025; 81001; 87086; 36415; 81025; 87077; 87186; 83690; 80053; 74177; 96375; 96374; 99284; Q9967; J2550